=== PATIENT | male | born 1975 | race Caucasian/White ===

== ENCOUNTER → 2017-12-17 14:17 | Outpatient (CLI) | payer OTHER, SELFPAY ==
[2017-12-17 17:13] LABS: Internal QC Validated? YES +Cl - CLEAR BKGD; Monotest Negative (Negative)
== END ==
PROVIDERS: Family Provider Family Medicine Geriatric Medicine; PCP Family Medicine Geriatric Medicine; Visit Provider Family Medicine Geriatric Medicine
DX: R07.0 Pain in throat (principal); R53.83 Other fatigue
CPT/HCPCS: 36415; 86308; 87633

== ENCOUNTER → 2018-05-20 10:37 | Outpatient (CLI) | payer OTHER, SELFPAY ==
[2018-05-20 13:36] LABS: HIV - WCH Non-Reactive (Nonreactive)
[2018-05-20 15:03] LABS: Chlamydia Trachomatis by PCR Negative (Negative); Neisserai gonorrhoeae by PCR Negative (Negative); Probe Check PASS; Sample Adequacy Control PASS; Specimen Processing Control PASS
== END ==
PROVIDERS: Family Provider Family Medicine Geriatric Medicine; PCP Family Medicine Geriatric Medicine; Visit Provider Family Medicine Geriatric Medicine
DX: A64 Unspecified sexually transmitted disease (principal); N50.82 Scrotal pain
CPT/HCPCS: 36415; 86703; 87491; 87591

== ENCOUNTER → 2018-05-22 07:56 | Outpatient (CLI) | payer OTHER, SELFPAY ==
--- NOTE | 2018-05-22 08:04 | US_ITS ---
STUDY: SCROTUM ULTRASOUND REASON FOR EXAM: Male, 42 years old. Left testicular pain for one week. TECHNIQUE: Ultrasound evaluation of the scrotum was performed with color Doppler and static lockett-scale imaging. COMPARISON: None. FINDINGS: RIGHT TESTICLE INTRATESTICULAR: There is a normal size of the right testicle. The right testicle measures 4.9 x 3.3 x 2.5 cm. There is a homogenous echotexture. There is normal arterial and normal venous vascularity. There is no demonstrated right testicular mass or cyst. EXTRATESTICULAR: The epididymis is normal in size. The epididymis head measures 1.7 x 1.6 x 1.1 cm. There is normal vascularity of the epididymis. There is no demonstrated epididymal cystic structure. There is a small hydrocele. There is no demonstrated varicocele. There is no demonstrated extratesticular mass or cyst. LEFT TESTICLE INTRATESTICULAR: There is a normal size of the left testicle. The left testicle measures 4.7 x 3.5 x 2.7 cm. There is a homogenous echotexture. There is normal arterial and normal venous vascularity. There is no demonstrated left testicular mass or cyst. EXTRATESTICULAR: The epididymis is normal in size. The epididymis head measures 1.6 x 1.7 x 1.2 cm. There is normal vascularity of the epididymis. There is no demonstrated epididymal cystic structure. There is a moderate size hydrocele. There is no demonstrated varicocele. There is no demonstrated extratesticular mass or cyst. US/Testicular with Arterial Flow IMPRESSION: Normal bilateral testicles. Normal epididymides. Small right hydrocele. Moderate left hydrocele. Electronically Signed: Ciarra Guerra MD at 23:43 EDT , Service support ,
== END ==
PROVIDERS: Family Provider Family Medicine Geriatric Medicine; PCP Family Medicine Geriatric Medicine; Visit Provider Family Medicine Geriatric Medicine
DX: N43.3 Hydrocele, unspecified (principal)
CPT/HCPCS: 76870; 93976

== ENCOUNTER → 2019-08-07 16:01 | Outpatient (CLI) | payer OTHER, SELFPAY ==
[2019-08-07 17:37] LABS: Absolute Lymphocyte Count 1.73 X10^3/uL (0.83-4.51); Basophil# 0.07 X10^3/uL; Basophil% 1.1 % (0-1); Eosinophil# 0.09 X10^3/uL; Eosinophils% 1.4 % (0-5); Hematocrit 48.2 % (40-54); Hemoglobin 16.3 g/dL (13.0-16.5); Lymphocyte # 1.73 X10^3/ul (4.0); Lymphocyte % 26.7 % (19-41); Mean Corp Hgb Conc 33.8 g/dL (32-36); Mean Corpuscular Hgb 29.3 pg (27.0-32.0); Mean Corpuscular Volume 86.5 fL (80-94); Mean Platelet Vol. 9.7 fl (6.2-12.0); Monocyte% 9.2 % (0-10); NRBC Flagged by Analyzer 0 % (0-5); Neutrophil # 3.98 X10^3/uL (2.7-7.7); Neutrophil % 61.3 % (47-70); Platelet Count 272 K/mm3 (150-450); RBC Distribution Width CV 12.4 % (11.6-14.6); RBC Distribution Width SD 38.6 fl (35.1-43.9); Red Blood Count 5.57 M/mm3 (4.6-6.2); White Blood Count 6.5 K/mm3 (4.4-11.0)
[2019-08-07 17:58] LABS: ALB/GLOB Ratio 1.1 RATIO (0.9-2.4); AST(SGOT) 14 U/L (15-37); Alanine Aminotransfer ALT/SGPT 40 U/L (16-61); Albumin, Serum 4.1 g/dL (3.2-5.0); Alkaline Phosphatase 97 U/L (45-117); Anion Gap 6 (5-15); BUN 13 mg/dL (7-18); BUN/Creat Ratio 11.7 RATIO (10-20); Calcium,Total 8.8 mg/dL (8.5-10.1); Chloride 101 mmol/L (98-107); Creatinine, Serum 1.11 mg/dL (0.70-1.30); EST Glomerular Filtration Rate 76 mL/min (>60); Est Glom Filt Rate - Afr Amer 92 mL/min (>60); Globulin 3.8 g/dL (2.2-4.2); Glucose 122 mg/dL (74-106); Potassium 3.7 mmol/L (3.5-5.1); Protein, Total 7.9 g/dL (6.4-8.2); Sodium Level 138 mmol/L (136-145); Thyroid Stim Hormone (TSH) 2.34 uIU/mL (0.358-3.74)
== END ==
PROVIDERS: Family Provider Family Medicine Geriatric Medicine; PCP Family Medicine Geriatric Medicine; Visit Provider Family Medicine Geriatric Medicine
DX: I10 Essential (primary) hypertension (principal)
CPT/HCPCS: 36415; 80053; 84443; 85025

== ENCOUNTER → 2020-09-29 09:24 | Outpatient (CLI) | payer OTHER, SELFPAY ==
[2020-09-29 12:05] LABS: Absolute Lymphocyte Count 1.26 X10^3/uL (0.83-4.51); Absolute Neutrophil Count 2.8 X10^3/uL (2.0-7.7); Basophil# 0.05 X10^3/uL; Basophil% 1.1 % (0-1); Eosinophil# 0.14 X10^3/uL; Hematocrit 46.3 % (40-54); Hemoglobin 15.1 g/dL (13.0-16.5); Lymphocyte # 1.26 X10^3/ul (4.0); Lymphocyte % 27.3 % (19-41); Mean Corp Hgb Conc 32.6 g/dL (32-36); Mean Corpuscular Hgb 28.9 pg (27.0-32.0); Mean Corpuscular Volume 88.7 fL (80-94); Mean Platelet Vol. 9.7 fl (6.2-12.0); Monocyte# 0.41 X10^3/uL; Monocyte% 8.9 % (0-10); NRBC Flagged by Analyzer 0 % (0-5); Neutrophil # 2.75 X10^3/uL (2.7-7.7); Neutrophil % 59.5 % (47-70); Platelet Count 237 K/mm3 (150-450); RBC Distribution Width CV 12.4 % (11.6-14.6); RBC Distribution Width SD 40.3 fl (35.1-43.9); Red Blood Count 5.22 M/mm3 (4.6-6.2); White Blood Count 4.6 K/mm3 (4.4-11.0)
[2020-09-29 12:29] LABS: ALB/GLOB Ratio 1.2 RATIO (0.9-2.4); AST(SGOT) 13 U/L (15-37); Alanine Aminotransfer ALT/SGPT 30 U/L (16-61); Albumin, Serum 3.9 g/dL (3.2-5.0); Alkaline Phosphatase 90 U/L (45-117); Anion Gap 4 (5-15); BUN 16 mg/dL (7-18); BUN/Creat Ratio 14.4 RATIO (10-20); Calcium,Total 8.6 mg/dL (8.5-10.1); Chloride 108 mmol/L (98-107); Creatinine, Serum 1.11 mg/dL (0.70-1.30); EST Glomerular Filtration Rate 75 mL/min (>60); Est Glom Filt Rate - Afr Amer 91 mL/min (>60); Globulin 3.3 g/dL (2.2-4.2); Glucose 86 mg/dL (74-106); Potassium 4.2 mmol/L (3.5-5.1); Protein, Total 7.2 g/dL (6.4-8.2); Sodium Level 140 mmol/L (136-145); Thyroid Stim Hormone (TSH) 1.68 uIU/mL (0.358-3.74)
== END ==
PROVIDERS: PCP Family Medicine Geriatric Medicine; Visit Provider Family Medicine Geriatric Medicine
DX: I10 Essential (primary) hypertension (principal)
CPT/HCPCS: 36415; 80053; 84443; 85025

== ENCOUNTER → 2021-01-07 11:38 | Outpatient (CLI) | payer OTHER, SELFPAY ==
[2021-01-07 13:48] LABS: Thyroid Stim Hormone (TSH) 1.46 uIU/mL (0.358-3.74)
== END ==
PROVIDERS: PCP Family Medicine Geriatric Medicine; Visit Provider Family Medicine Geriatric Medicine
DX: E29.1 Testicular hypofunction (principal)
CPT/HCPCS: 36415; 84403; 84443

== ENCOUNTER → 2022-04-05 | Outpatient (CLI) | payer OTHER, SELFPAY ==
[2022-04-05 17:18] LABS: Absolute Lymphocyte Count 1.58 X10^3/uL (0.83-4.51); Basophil# 0.06 X10^3/uL; Eosinophil# 0.11 X10^3/uL; Eosinophils% 1.8 % (0-5); Hematocrit 47.7 % (40-54); Hemoglobin 15.6 g/dL (13.0-16.5); Lymphocyte # 1.58 X10^3/ul (0.83-4.51); Lymphocyte % 25.2 % (19-41); Mean Corp Hgb Conc 32.7 g/dL (32-36); Mean Corpuscular Hgb 28.5 pg (27.0-32.0); Mean Platelet Vol. 9.7 fl (6.2-12.0); Monocyte# 0.52 X10^3/uL; Monocyte% 8.3 % (0-10); NRBC Flagged by Analyzer 0 % (0-5); Neutrophil # 3.98 X10^3/uL (2.7-7.7); Neutrophil % 63.5 % (47-70); Platelet Count 239 K/mm3 (150-450); RBC Distribution Width CV 12.2 % (11.6-14.6); RBC Distribution Width SD 39.1 fl (35.1-43.9); Red Blood Count 5.48 M/mm3 (4.6-6.2); White Blood Count 6.3 K/mm3 (4.4-11.0)
[2022-04-05 17:37] LABS: ALB/GLOB Ratio 1.1 RATIO (0.9-2.4); AST(SGOT) 15 U/L (15-37); Alanine Aminotransfer ALT/SGPT 31 U/L (16-61); Albumin, Serum 3.8 g/dL (3.2-5.0); Alkaline Phosphatase 84 U/L (45-117); Anion Gap 4 (5-15); BUN 16 mg/dL (7-18); BUN/Creat Ratio 13.8 RATIO (10-20); Calcium,Total 8.9 mg/dL (8.5-10.1); Chloride 108 mmol/L (98-107); Creatinine, Serum 1.16 mg/dL (0.70-1.30); EST Glomerular Filtration Rate 71 mL/min (>60); Est Glom Filt Rate - Afr Amer 86 mL/min (>60); Globulin 3.4 g/dL (2.2-4.2); Glucose 109 mg/dL (74-106); Potassium 4.1 mmol/L (3.5-5.1); Protein, Total 7.2 g/dL (6.4-8.2); Sodium Level 140 mmol/L (136-145); Thyroid Stim Hormone (TSH) 1.59 uIU/mL (0.358-3.74)
== END | disposition home or self-care (01) ==
LOC: POLAB3 14:29
PROVIDERS: PCP Family Medicine Geriatric Medicine; Visit Provider Family Medicine Geriatric Medicine
DX: F52.8 Other sexual dysfunction not due to a substance or known physiological condition (principal); I10 Essential (primary) hypertension
CPT/HCPCS: 36415; 80053; 84403; 84443; 85025

== ENCOUNTER 2022-12-06 04:15 | Observation (INO) | payer OTHER, SELFPAY ==
[2022-12-06] VITALS (7 sets, daily range): BP systolic 116–158; BP diastolic 57–75; PULSE 51–75; RESP 16–22; TEMP 36.6–36.8; O2SAT 94–99; BMI 32.6; BMI 32.5
[2022-12-06] MEDS: Ondansetron 4 MG/2 ML Vial IV (05:10)
[2022-12-06] MEDS: HYDROmorphone 1 MG/ML Syringe IV ×3 (05:11→09:00)
[2022-12-06] MEDS: dexAMETHasone 10 MG/ML Vial IV (05:11)
[2022-12-06] MEDS: Orphenadrine 60 MG/2 ML Ampul IV (05:11)
[2022-12-06] MEDS: diazePAM 5 MG Tablet 10 MG PO (06:28)
--- NOTE | 2022-12-06 08:41 | EDS_ITS ---
HPI History of Present Illness Chief Complaint: Back Narrative Narrative: Patient is a 47-year-old male with past medical history of hypertension. He states that on Sunday he was lifting a heavy metal kettle and after doing so felt pain mainly in his right side low back. He states he did not think much of this but as the days passed he was having increasing pain to the point where he was unable to ambulate. He states that there has been no loss of bowel or bladder control or IV drug use. He states he went to an outside hospital just yesterday where he had a CT scan secondary to his pain which showed just degenerative changes consistent with age but otherwise no acute finding. He has been taking oxycodone and Zanaflex and prednisone but despite this has had persistent pain but no repeat trauma. Secondary to the persistent pain and the inability ambulate he presents for reevaluation [facility] Medical History Hypertension Home Medications Losartan/Hydrochlorothiazide [Hyzaar 100-12.5 Tablet] 1 tab PO DAILY 03/07/16 [History Last Taken Unknown] Allergy/AdvReac Type Severity Reaction Status Date / Time No Known Allergies Allergy Verified 12/06/22 04:19 Surgical History (Updated 12/06/22 @ 04:21 by Joelle Elizondo) History of femoral hernia repair Social History Smoking Status: Never smoker ROS [facility] ED Constitutional Constitutional ED: Denies chills or fever(s) ENT ENT ED: Denies sore throat Cardiovascular Cardiovascular: Denies chest pain Respiratory/Chest Respiratory/Chest: Denies cough or dyspnea Gastrointestinal Gastrointestinal: Denies abdominal pain, diarrhea, nausea or vomiting Genitourinary Genitourinary ED: Denies dysuria or hematuria Musculoskeletal Musculoskeletal: Reports back pain Integumentary Denies rash Neurologic Neurologic: Denies headache(s) or paresthesias Hematologic/Lymphatic Hematologic/Lymphatic: Denies easy bleeding or easy bruising EXAM Physical Exam Const Vital Signs: 12/06/22 04:16 12/06/22 06:29 12/06/22 07:50 Temperature 98.3 F 98.1 F Temperature Source Temporal Oral Pulse Rate 75 51 L 64 Respiratory Rate 22 H 16 18 Blood Pressure 158/75 H 133/57 H 128/68 H Blood Pressure Mean 102 82 88 Pulse Ox 99 97 96 Oxygen Delivery Method Room Air Room Air Room Air Positive well nourished, well developed and obese General Appearance ED: well developed Nutritional Appearance: obese Eyes PERRL and EOMs intact bilaterally Neck supple Resp normal respiratory effort and clear to auscultation bilaterally Cardio regular rate and regular rhythm Rate: other Other Details: Radial pulses are plus 2 out of 4 bilaterally are equal and symmetric Carotid pulses equal and symmetric GI normal to inspection, nondistended, normoactive bowel sounds, non-tender, non- distended and no masses GI Narrative: No voluntary guarding or rigidity no pulsatile mass Auscultation: normoactive bowel sounds Palpation: soft Back/Spine Back/Spine Narrative: No bony deformity or step-off of the thoracic or lumbar spine no midline pain with palpation. There is right paralumbar tenderness and spasm noted that extends down into the piriformis muscle belly region. No saddle anesthesia. Negative straight leg raise. No clonus or Babinski. Patellar reflexes are plus 3 out of 4 bilaterally Extremity normal to inspection Extremity Narrative: No abrasions or ecchymosis noted No signs of trauma or infection Neuro oriented x3 and CN's II-XII intact bilaterally Sensorium / Orientation: alert Psych mental status grossly normal Skin no rashes or lesions noted MDM MDM MDM Narrative Medical decision making narrative: Patient presented to the ER hypertensive but has known history of this and is in pain so this is to be expected. He does not have physical exam findings for cauda equina or epidural abscess. There is no midline pain with palpation and with his report of recent CT scan I felt no need for repeat imaging. Patient was given a total of 2 mg of IV Dilaudid 60 mg of IV Norflex 10 mg of IV Decadron and 10 mg of oral Valium. He did have improvement of pain but no resolution and he could stand with a walker but he could not walk. At this time as he is having intractable pain I do not feel it is safe for him to go home. At this time he does not appear to have CVA pain indicating kidney stone there are no obvious signs of infection and I have low concern for cauda equina or epidural abscess based on his history and risk factors. Therefore do not feel there is need for further work-up but based on his intractable pain needs to be admitted for further care. The case was discussed with medicine on-call and they are agreeable to it and patient will be admitted for continued pain management at this time Discharge Plan Triage Chief Complaint: Back ED Provider: Jacek Raygoza Dx/Rx/DC Orders Clinical Impression: Intractable low back pain, Unable to ambulate, Hypertension Prescriptions: No Action Losartan/Hydrochlorothiazide [Hyzaar 100-12.5 Tablet] 1 TAB tablet 1 tab PO DAILY Primary Care Provider: Rogelio Colvin Chi Referrals: Rogelio Colvin Chi, MD [Primary Care Provider] - Disposition Disposition: Acute Care Hospital [facility]
--- NOTE | 2022-12-06 08:53 | HP.PCM.HOS_ITS ---
HPI - General General Date of Admission: 12/06/22 Date of Service: 12/06/22 Chief Complaint: Severe right-sided lumbar paraspinal and buttock pain since 12/01. HPI Narrative DELTA CHEEK, is a 47 M came to ED after he has severe right-sided lower back pain after he lifted a heavy table about 400 pounds on 12/01. He stayed at home on Sunday and then he went to [place] ED on 12/04. There is a need CT scan lumbar spine and thought mainly musculoskeletal pain without nerve involvement/cardiac related and discharged on pain medication and muscle relaxant. Patient continued to have severe pain not able to stand up or walk therefore came to ED today. No fever or chills. Patient denies fall or heavy object falling on his back. Patient has bladder filling sensation and able to empty bladder. No burning micturition or indurative symptoms although he has following standing up or act of micturition. Patient also passing flatus last bowel movement was on 12/02. Social history: Patient chew tobacco but does not smoke cigarettes or pipe or marijuana. No vaping. Denies substance use or chronic alcoholism Family history: Patient father had hypertension and a stroke and at the age of 54. [facility] Medical History Hypertension Home Medications Losartan/Hydrochlorothiazide [Hyzaar 100-12.5 Tablet] 1 tab PO DAILY 03/07/16 [History Last Taken Unknown] Allergy/AdvReac Type Severity Reaction Status Date / Time No Known Allergies Allergy Verified 12/06/22 04:19 Surgical History History of femoral hernia repair Social History Smoking Status: Never smoker ROS ROS Narrative Constitutional: Reports fatigue and weakness HEENT: Reports systems reviewed and no addt'l complaints, except as documented Respiratory/Chest: Denies chest pain, shortness of breath at rest or with exertion Gastrointestinal: Denies coffee ground emesis, hematemesis or vomiting Genitourinary: Denies burning urination or new urinary tract symptoms Musculoskeletal: As described in HPI. Painful movement of right hip and lower back. Neurologic: Denies seizure-like activity. No focal acute strokelike symptoms skin: No ulcer. No rash Endocrinology: Obesity. Reports systems reviewed and no addt'l complaints, except as documented Hematologic/Lymphatic: Reports systems reviewed and no addt'l complaints, except as documented Rest 14 ROS are negative except as mentioned in HPI Vital Signs Vital Signs Vital Signs: 12/06/22 04:16 12/06/22 06:29 12/06/22 07:50 Temperature 98.3 F 98.1 F Temperature Source Temporal Oral Pulse Rate 75 51 L 64 Respiratory Rate 22 H 16 18 Blood Pressure 158/75 H 133/57 H 128/68 H Blood Pressure Mean 102 82 88 Pulse Ox 99 97 96 Oxygen Delivery Method Room Air Room Air Room Air Weight Weight: 254 lb 3.088 oz Body Mass Index (BMI) 32.6 Physical Exam Narrative Physical exam General: Alert, Oriented x3, Cooperative HEENT: Atraumatic, PERRLA, EOMI, Normocephalic Oral: Oral mucosa moist. No Gingival or Mucosal Lesions/ Ulcerations Neck: Supple, No JVD, Negative Carotid Bruits Lungs: Air entry diminished in bilateral lung bases. No crepitation/rhonchi Cardiovascular: Regular rate, Regular Rhythm, Normal S1, Normal S2, No murmurs Abdomen: Bowel Sounds Present, Soft, Non Tender, Non-Distended : No renal angle tenderness. No suprapubic tenderness. Extremities: No edema, Capillary Refill Less than 3 Seconds Skin: No rashes, No breakdown Musculoskeletal: Tenderness and spasm present over right lumbar paraspinal muscle, erector spinae. ROM severely limited at right hip, lumbar spine due to pain and spasm. LLE normal ROM. Neurological: Cranial nerves II-XII grossly intact, DTR 2+/4. Intact perineal sensation. Anal sphincter tone intact and good. Gross sensory touch and pressure equal symmetrical in lower extremities and back. Psych/Mental Status: Flat affect. Results Lab / Micro Data Result Diagrams: 12/06/22 09:00 12/06/22 09:00 Assessment & Plan Assessment/Plan (1) Intractable low back pain: PLAN: Plan This is 47-year-old gentleman is being admitted for acute back pain with spasm after lifting heavy table. 1. Debility due to acute musculoskeletal pain and spasm of right lumbar paraspinal muscle, not able to stand up or ambulate: Patient is being admitted on [facility] reservation. On Tylenol, ibuprofen for pain control. On oxycodone and Dilaudid as opioid for moderate to severe pain. Muscle relaxant ordered. Dexamethasone 4 mg twice daily. Senna as an MiraLAX and stool softener. On Protonix. PT and OT ordered. 2. Hypertension: Blood pressure is in normal range. Home medication HCTZ and losartan continued 3. Obesity grade 1: BMI 32.6 kg/m?. Moderate risk for DVT: Enoxaparin 40 mill subcu daily. Full code verified. Charges/Coding Visit Charges Inpatient E&M: 12569 Init Hosp L3
[2022-12-06 09:11] LABS: Absolute Lymphocyte Count 0.72 X10^3/uL (0.83-4.51); Absolute Neutrophil Count 8.7 X10^3/uL (2.0-7.7); Basophil# 0.01 X10^3/uL; Basophil% 0.1 % (0-1); Hematocrit 43.3 % (40-54); Hemoglobin 14.6 g/dL (13.0-16.5); Lymphocyte # 0.72 X10^3/ul (0.83-4.51); Lymphocyte % 7.4 % (19-41); Mean Corp Hgb Conc 33.7 g/dL (32-36); Mean Corpuscular Hgb 29.1 pg (27.0-32.0); Mean Corpuscular Volume 86.3 fL (80-94); Mean Platelet Vol. 9.4 fl (6.2-12.0); Monocyte# 0.18 X10^3/uL; Monocyte% 1.9 % (0-10); NRBC Flagged by Analyzer 0 % (0-5); Neutrophil # 8.73 X10^3/uL (2.7-7.7); Neutrophil % 90.1 % (47-70); Platelet Count 230 K/mm3 (150-450); RBC Distribution Width CV 12.4 % (11.6-14.6); RBC Distribution Width SD 38.5 fl (35.1-43.9); Red Blood Count 5.02 M/mm3 (4.6-6.2); White Blood Count 9.7 K/mm3 (4.4-11.0)
[2022-12-06 09:25] LABS: Anion Gap 6 (5-15); BUN 18 mg/dL (7-18); BUN/Creat Ratio 15.5 RATIO (10-20); Calcium,Total 8.8 mg/dL (8.5-10.1); Chloride 109 mmol/L (98-107); Creatinine, Serum 1.16 mg/dL (0.70-1.30); EST Glomerular Filtration Rate 71 mL/min (>60); Est Glom Filt Rate - Afr Amer 86 mL/min (>60); Estimated Creatinine Clearance 89.56 ml/min; Glucose 127 mg/dL (74-106); Sodium Level 140 mmol/L (136-145)
[2022-12-06 12:23] LABS: Bacteria 0 SEEN /hpf (None Seen); Mucous, Urine 0 SEEN /hpf (<or=2+); Red Blood Cells-Urine 0 SEEN /hpf (0-5); Squamous Epithelial Cells - UA 0 SEEN /hpf (0-5); White Blood Cells 0 SEEN /hpf (0-5)
[2022-12-06 12:25] LABS: Color, Urine Yellow (Yellow); Glucose, Dipstick Normal (Normal); Ketone-Dipstick Negative (Negative); Occult Blood-Urine Negative /ul (Negative); Urine Bilirubin Dipstick Negative (Negative); Urine Clarity Clear (Clear); Urine Urobilinogen Normal (Normal)
[2022-12-06 12:28] LABS: Leukocyte Esterase-Dipstick Negative /ul (Negative); Nitrite-Dipstick Negative (Negative); Protein-Dipstick Negative (Negative); Specific Gravity, Urine 1.015 (1.002-1.030)
[2022-12-06] MEDS: Enoxaparin 40 MG/0.4 ML Syringe SC (13:31)
[2022-12-06] MEDS: Pantoprazole Sodium 40 MG Tablet PO (13:31)
[2022-12-06] MEDS: Polyethylene Glycol 3350 17 GM PACKET PO (13:31)
[2022-12-06] MEDS: Ibuprofen 600 MG Tablet PO ×3 (13:31→22:58)
[2022-12-06] MEDS: 0.9% Normal Saline 1,000 ML 100 ML IV (13:46)
[2022-12-06] MEDS: Losartan Potassium 100 MG Tablet PO (14:50)
[2022-12-06] MEDS: tiZANidine HCl 2 MG Tablet 4 MG PO ×2 (14:50→23:59)
[2022-12-06] MEDS: dexAMETHasone 4 MG Tablet PO (17:36)
[2022-12-06] MEDS: oxyCODONE 5 MG Tablet PO (21:21)
[2022-12-06] MEDS: Acetaminophen 325 MG Tablet 650 MG PO (21:21)
[2022-12-06] MEDS: 0.9% Saline Lock 10 ML Syringe IV (22:58)
[2022-12-06] MEDS: Morphine 4 MG/ML Syringe IV (22:58)
[2022-12-07] MEDS: Acetaminophen 325 MG Tablet 650 MG PO (03:59)
[2022-12-07] MEDS: oxyCODONE 5 MG Tablet PO (03:59)
[2022-12-07 04:11] VITALS: BP 114/67; PULSE 84; RESP 18; TEMP 36.8; O2SAT 98
[2022-12-07] MEDS: Morphine 4 MG/ML Syringe IV (06:43)
[2022-12-07] MEDS: Ibuprofen 600 MG Tablet PO (06:43)
--- NOTE | 2022-12-07 07:36 | DCINST_ITS ---
Discharge Instructions Diet Discharge Diet: 2000 mg Sodium Diet Activity Discharge Activity: Return to Normal Activity Weight Bearing Status: Weight bearing as tolerated Additional Activity Instructions:: No exertional pulling, pushing, lifting or heavy physical work for 3 to 4 weeks Dressing / Incision Call your doctor if you observe: Fever of 101 or Higher, Coldness, Increased Pain, Numbness or Tingling, Change in Color, Inability to urinate, Inability to have a bowel movement, Shortness of breath, Dizziness, Fainting spells, Swelling in the ankles, Chest pain, Prolonged hiccupping, Increased palpitations (irregular heartbeat) and Calf discomfort Follow Up Care When: IN 2 WEEKS Test Results: Test results from this visit will be discussed in further detail at your follow- up appointment, if applicable. Discharge Plan Admission Admit Date/Time: 12/06/22 08:37 Primary Reason for Your Visit: Acute musculoskeletal spasm of right lumbar paraspinal region Attending Provider: Javed Jeffery Primary Care Provider: Rogelio Colvin Chi Discharge Orders/Prescriptions Prescriptions: New tizanidine 2 mg Tablet 4 mg PO Q8H PRN PRN (Reason: MUSCLE SPASM) 10 Days Qty: 30 0RF pantoprazole 40 mg Tablet,Delayed Release (Dr/Ec) 40 mg PO DAILY 30 Days Qty: 30 0RF ibuprofen 600 mg Tablet 600 mg PO Q8H PRN (Reason: muscle pain) Qty: 0 0RF Rx Instructions: [id number], every 8 hourly for 3 days and then as needed as needed for muscle pain Continued Losartan/Hydrochlorothiazide [Hyzaar 100-12.5 Tablet] 1 TAB tablet 1 tab PO DAILY Referrals / Follow Up: Rogelio Colvin Chi, MD [Primary Care Provider] - Within 1 Week (For acute right paraspinal lumbar pain ) Tariq Flores DO [Med Staff - Active Staff] - Within 1 Month (as needed If back pain does not get better or becomes persistent) Disposition Disposition (needs filled in before D/C Order can be placed): Home, Self Care
--- NOTE | 2022-12-07 07:43 | DS.PCM_ITS ---
Providers Date of Admission: 12/06/22 Date of Discharge: 12/07/22 Primary Care Physician: Dr. Rogelio Colvin MD Reason For Visit: ACUTE BACK PAIN Diagnosis Discharge Diagnosis (1) Intractable low back pain: Status: Acute Code(s): M54.59 - Other low back pain Plan This is 47-year-old gentleman is being admitted for acute back pain with spasm after lifting heavy table. 1. Debility due to acute musculoskeletal pain and spasm of right lumbar paraspinal muscle, not able to stand up or ambulate: Patient is being admitted on Med[place]urg reservation. On Tylenol, ibuprofen for pain control. On oxycodone and Dilaudid as opioid for moderate to severe pain. Muscle relaxant ordered. Dexamethasone 4 mg twice daily. Senna as an MiraLAX and stool softener. On Protonix. PT and OT ordered. 12/07: CT of the lumbar spine reviewed with the patient. It showed moderate to severe degenerative changes of L4-L5 disc. No evidence of acute bony deformity. Marked disc narrowing at L4-L5 with mild narrowing of spinal canaPatient has prescription of oxycodone and tramadol and muscle relaxant given from [facility] ED. He was given prescription for tizanidine. Patient advised to take [id number] ibuprofen 600 mg every 8 hourly for 3 days and then as needed for back pain. Advised to follow with PCP Dr. Colvin in 1 week. Patient was also given option of follow-up with Dr. Flores if back pain becomes persistent or gets worse. 2. Hypertension: Blood pressure is in normal range. Home medication HCTZ and losartan continued 3. Obesity grade 1: BMI 32.6 kg/m?. Moderate risk for DVT: Enoxaparin 40 mg subcu daily. Full code verified. Discharge medication reconciliation done. Discharge follow-up instructions completed. Discharge process discussed with the patient and all questions were answered to patient's satisfaction. Total time spent, exact 35 minutes on discharge meds reconciliation, examination, coordination of care with nurses and ancillary staff, review of imaging and blood test and discussion with the patient on follow-up instructions. Medications at Discharge Home Medications Losartan/Hydrochlorothiazide [Hyzaar 100-12.5 Tablet] 1 tab PO DAILY 03/07/16 ibuprofen 600 mg tablet 600 mg PO Q8H PRN muscle pain #0 tabs 12/07/22 pantoprazole 40 mg tablet,delayed release 40 mg PO DAILY 30 days #30 tabs 12/07/22 tizanidine 2 mg tablet 4 mg PO Q8H PRN PRN MUSCLE SPASM 10 days #30 tabs 12/07/22 Physical Exam Narrative Seen and examined in the morning. Back pain is better and patient cannot stand up and ambulate. He wants to go home. CT scan of lumbar spine discussed with the patient. Physical exam General: Alert, Oriented x3, Cooperative HEENT: Atraumatic, PERRLA, EOMI, Normocephalic Oral: Oral mucosa moist. No Gingival or Mucosal Lesions/ Ulcerations Neck: Supple, No JVD, Negative Carotid Bruits Lungs: Air entry diminished in bilateral lung bases. No crepitation/rhonchi Cardiovascular: Regular rate, Regular Rhythm, Normal S1, Normal S2, No murmurs Abdomen: Bowel Sounds Present, Soft, Non Tender, Non-Distended : No renal angle tenderness. No suprapubic tenderness. Extremities: No edema, Capillary Refill Less than 3 Seconds Skin: No rashes, No breakdown Musculoskeletal: Mild Tenderness present over right lumbar paraspinal muscle. can walk. LLE normal ROM. Neurological: Cranial nerves II-XII grossly intact, DTR 2+/4. Intact perineal sensation. Anal sphincter tone intact and good. Gross sensory touch and press ure equal symmetrical in lower extremities and back. Psych/Mental Status: Flat affect. Weight / BMI Weight Weight: 254 lb 3.088 oz Body Mass Index (BMI) 32.5 ABG / Lab / Microbiology Data Result Diagrams: 12/06/22 09:00 12/06/22 09:00 Laboratory: Laboratory Results - last 24 hr 12/06/22 09:00: WBC 9.7, RBC 5.02, Hgb 14.6, Hct 43.3, MCV 86.3, MCH 29.1, MCHC 33.7, RDW Std Deviation 38.5, RDW Coeff of [place] 12.4, Plt Count 230, MPV 9.4, Immature Gran % (Auto) 0.500, Neut % (Auto) 90.1 H, Lymph % (Auto) 7.4 L, [place] % (Auto) 1.9, Eos % (Auto) 0.0, Baso % (Auto) 0.1, Absolute Neuts (auto) 8.7 H, Absolute Lymphs (auto) 0.72 L, Nucleated RBC % 0 12/06/22 09:00: Sodium 140, Potassium 4.0, Chloride 109 H, Carbon Dioxide 25.0, Anion Gap 6, BUN 18, Creatinine 1.16, Estim Creat Clear Calc 89.56, Est GFR (MDRD) Af Amer 86, Est GFR (MDRD) Non-Af 71, BUN/Creatinine Ratio 15.5, Glucose 127 H, Calcium 8.8 12/06/22 12:20: Urine Color Yellow, Urine Clarity Clear, Urine pH 8.0, Ur Specific [place] 1.015, Urine Protein Negative, Urine Glucose (UA) Normal, Urine Ketones Negative, Urine Occult Blood Negative, Urine Nitrite Negative, Urine Bilirubin Negative, Urine Urobilinogen Normal, Ur Leukocyte Esterase Negative, Urine RBC 0 SEEN, Urine WBC 0 SEEN, Ur Squamous Epith Cells 0 SEEN, Urine Bacteria 0 SEEN, Urine Mucus 0 SEEN D/C Instructions Discharge Diet: 2000 mg Sodium Diet Weight Bearing Status: Weight bearing as tolerated Additional Activity Instructions: No exertional pulling, pushing, lifting or heavy physical work for 3 to 4 weeks Call your doctor if you observe: Fever of 101 or Higher, Coldness, Increased Pain, Numbness or Tingling, Change in Color, Inability to urinate, Inability to have a bowel movement, Shortness of breath, Dizziness, Fainting spells, Swelling in the ankles, Chest pain, Prolonged hiccupping, Increased palpitations (irregular heartbeat) and Calf discomfort When: IN 2 WEEKS Meaningful Use Info Meaningful Use Diagnoses (Choose all that apply): None applicable Discharge Plan Admission Admit Date/Time: 12/06/22 08:37 Primary Reason for Your Visit: Acute musculoskeletal spasm of right lumbar paraspinal region Attending Provider: Javed Jeffery Primary Care Provider: Rogelio Colvin Chi Discharge Orders/Prescriptions Prescriptions: New tizanidine 2 mg Tablet 4 mg PO Q8H PRN PRN (Reason: MUSCLE SPASM) 10 Days Qty: 30 0RF pantoprazole 40 mg Tablet,Delayed Release (Dr/Ec) 40 mg PO DAILY 30 Days Qty: 30 0RF ibuprofen 600 mg Tablet 600 mg PO Q8H PRN (Reason: muscle pain) Qty: 0 0RF Rx Instructions: [id number], every 8 hourly for 3 days and then as needed as needed for muscle pain Continued Losartan/Hydrochlorothiazide [Hyzaar 100-12.5 Tablet] 1 TAB tablet 1 tab PO DAILY Referrals / Follow Up: Tariq Flores DO [Med Staff - Active Staff] - Within 1 Month (as needed If back pain does not get better or becomes persistent) Rogelio Colvin Chi, MD [Primary Care Provider] - Within 1 Week (For acute right paraspinal lumbar pain ) Disposition Disposition (needs filled in before D/C Order can be placed): Home, Self Care Charges/Coding Visit Charges Inpatient E&M: 99726 Disch Hosp >30min
[2022-12-07 08:20] VITALS: BP 133/72; PULSE 61; RESP 16; TEMP 36.7; O2SAT 95
--- NOTE | 2022-12-07 09:28 | PHA.DC.MR ---
Pharmacy Service has performed discharge medication reconciliation for this patient. Home Medications Losartan/Hydrochlorothiazide [Hyzaar 100-12.5 Tablet] 1 tab PO DAILY 03/07/16 ibuprofen 600 mg tablet 600 mg PO Q8H PRN muscle pain #0 tabs 12/07/22 pantoprazole 40 mg tablet,delayed release 40 mg PO DAILY 30 days #30 tabs 12/07/22 tizanidine 2 mg tablet 4 mg PO Q8H PRN PRN MUSCLE SPASM 10 days #30 tabs 12/07/22 The patient's discharge medication list was reviewed for discrepancies and discrepancies were resolved.
== END 2022-12-07 09:15 | disposition home or self-care (01) ==
LOC: ED 08:49 → MS3 12:00
PROVIDERS: Admitting Provider Internal Medicine; Emergency Provider Emergency Medicine; PCP Family Medicine Geriatric Medicine; Visit Provider Internal Medicine
DX: M62.830 Muscle spasm of back (principal); M54.50 Low back pain, unspecified; R26.2 Difficulty in walking, not elsewhere classified; I10 Essential (primary) hypertension; E66.9 Obesity, unspecified; Z68.32 Body mass index [BMI] 32.0-32.9, adult; Z79.899 Other long term (current) drug therapy; Z82.49 Family history of ischemic heart disease and other diseases of the circulatory system; F17.220 Nicotine dependence, chewing tobacco, uncomplicated
CPT/HCPCS: 80048; 81001; 85025; 96361; 96372; 96374; 96375; 96376; 99221; 99252; 99284; J7030; A4216; G0378; G0463; J2405

== ENCOUNTER 2022-12-31 17:47 | Emergency (ER) | payer OTHER, SELFPAY ==
[2022-12-31 17:48] VITALS: BP 142/101; PULSE 96; RESP 18; TEMP 36.9; O2SAT 99; BMI 32.1
--- NOTE | 2022-12-31 19:32 | EDS_ITS ---
HPI <JORGE A Delvalle - Last Filed: 12/31/22 21:59> History of Present Illness Chief Complaint: Lower Extremity Injury Narrative Narrative: Patient is here with left leg pain. For background about a month ago he lifted something heavy and developed right low back pain radiating down his right leg. He had a CT scan of the lumbar spine at another facility. He is pain management fpr this and had back injections 2 weeks ago with no improvement and he is taki ng hydrocodone, Lyrica, and ibuprofen. He was using a crutch and putting most of the weight on his left leg due to this injury when he started developing left leg pain about 5 days ago. He states it feels like there is a band around his thigh squeezing it tight and he has pain in the medial and posterior thigh and then along the lateral calf. He feels like the leg looks swollen. Pain is worse with standing or sitting so he has been lying down most of the time. His back pain is only on the right side from a prior injury, there is no pain in the left side of his back or his buttock. He has no weakness, numbness or tingling, no saddle anesthesia or bladder or bowel incontinence. [facility] <JORGE A Delvalle - Last Filed: 12/31/22 21:59> [facility] Medical History Hypertension Home Medications Losartan/Hydrochlorothiazide [Hyzaar 100-12.5 Tablet] 1 tab PO DAILY 03/07/16 [History Last Taken Unknown] ibuprofen 600 mg tablet 600 mg PO Q8H PRN muscle pain #0 tabs 12/07/22 [Rx Last Taken Unknown] pantoprazole 40 mg tablet,delayed release 40 mg PO DAILY 30 days #30 tabs 12/07/22 [Rx Last Taken Unknown] tizanidine 2 mg tablet 4 mg PO Q8H PRN PRN MUSCLE SPASM 10 days #30 tabs 12/07/22 [Rx Last Taken Unknown] apixaban 5 mg (74 tabs) tablets in a dose pack (Eliquis DVT-PE Treat 30D Start) 5 mg PO BID #74 tabs 12/31/22 [Rx Last Taken Unknown] Allergy/AdvReac Type Severity Reaction Status Date / Time No Known Allergies Allergy Verified 12/31/22 17:48 Surgical History History of femoral hernia repair Social History Smoking Status: Never smoker ROS <JORGE A Delvalle - Last Filed: 12/31/22 21:59> ROS ED ROS Narrative Constitutional: Negative for fever, chills, malaise. CVS: Negative for palpitations, chest pain, syncope. Respiratory: Negative for shortness of breath, cough, orthopnea. GI: Negative for abdominal pain, nausea, vomiting, diarrhea, constipation, melena, hematochezia. : Negative for dysuria, hematuria or frequency. Neuro: Negative for motor/sensory dysfunction. Skin: Negative for rash, abscess, or wound. Musc: Positive for left leg pain, swelling. No trauma. Heme: Negative for easy bruising, bleeding, lymphadenopathy. EXAM <JORGE A Delvalle - Last Filed: 12/31/22 21:59> Physical Exam Narrative Exam Narrative: CONST: Patient sitting in no acute distress. EYES: Normal inspection. NECK: Normal inspection. RESP: No respiratory distress, CTAB. CVS: Regular rate and rhythm, no murmur, no gallop. ABD: Soft and nontender, no guarding or rebound, nondistended. Back: Normal inspection, no midline spinal tenderness or step-offs. SKIN: Color normal, no rash, warm, dry, intact. EXTREMITIES: Normal appearance, full range of motion, 5/5 strength and normal sensation, 2+ DP pulses. Mild tenderness over the left calf and medial thigh, no palpable cords, no overlying skin changes. NEURO: Oriented x4. PSYCH: Normal affect. Const Vital Signs: 12/31/22 17:48 12/31/22 22:06 Temperature 98.4 F Temperature Source Temporal Pulse Rate 96 80 Respiratory Rate 18 16 Blood Pressure 142/101 H 143/102 H Blood Pressure Mean 114 115 Pulse Ox 99 98 Oxygen Delivery Method Room Air Room Air <Dr. Sivan Beckford DO - Last Filed: 01/01/23 01:08> Physical Exam Const Vital Signs: 12/31/22 17:48 12/31/22 22:06 Temperature 98.4 F Temperature Source Temporal Pulse Rate 96 80 Respiratory Rate 18 16 Blood Pressure 142/101 H 143/102 H Blood Pressure Mean 114 115 Pulse Ox 99 98 Oxygen Delivery Method Room Air Room Air MDM <JORGE A Delvalle - Last Filed: 12/31/22 21:59> [facility] Narrative Medical decision making narrative: Patient presents with few days of atraumatic left flank pain. He appears well and nontoxic. Bilateral lower extremities appear normal with no swelling or skin changes. He does have tenderness over the left calf no palpable cords. MSPs intact. Formal ultrasound is not available but the attending performed a bedside ultrasound which was concerning for possible DVT. Prior to starting him on a dose of anticoagulation with an ultrasound in the morning, basic labs will be checked. He also reported his urine looked dark so a CK and UA will be obtained. Labs show white count of 11.1, normal hemoglobin at 15.4. BMP is within normal limits. CK is negative at 26 ruling out rhabdomyolysis. UA is negative. With bedside ultrasound showing a DVT he will be given the first dose of Eliquis tonight, prescribed a starter pack, and a prescription for formal ultrasound tomorrow morning. He was discharged in stable condition. Lab Data Attestation: I reviewed the patient's lab results. Labs: Laboratory Results - last 24 hr 12/31/22 12/31/22 12/31/22 21:20 21:20 21:20 WBC 11.1 H RBC 5.08 Hgb 15.4 Hct 45.5 MCV 89.6 MCH 30.3 MCHC 33.8 RDW Std Deviation 41.0 RDW Coeff of Alejo 12.5 Plt Count 182 MPV 9.1 Immature Gran % (Auto) 0.300 Neut % (Auto) 78.1 H Lymph % (Auto) 12.1 L [place] % (Auto) 8.0 Eos % (Auto) 1.2 Baso % (Auto) 0.3 Absolute Neuts (auto) 8.7 H Absolute Lymphs (auto) 1.34 Nucleated RBC % 0 Sodium 140 Potassium 4.1 Chloride 106 Carbon Dioxide 28.0 Anion Gap 6 BUN 26 H Creatinine 0.98 Estim Creat Clear Calc 106.01 Est GFR (MDRD) Af Amer 105 Est GFR (MDRD) Non-Af 87 BUN/Creatinine Ratio 26.6 H Glucose 130 H Calcium 9.1 Total Creatine Kinase 26 L Urine Color Yellow Urine Clarity Sl. Cloudy Urine pH 5.0 Ur Specific [place] 1.025 Urine Protein 15 H Urine Glucose (UA) Normal Urine Ketones Negative Urine Occult Blood 10 H Urine Nitrite Negative Urine Bilirubin Negative Urine Urobilinogen 1 H Ur Leukocyte Esterase Negative Urine RBC 0-5 SEEN Urine WBC 0-5 SEEN Ur Squamous Epith Cells 0-5 SEEN Urine Bacteria RARE Urine Mucus RARE <Dr. Sivan Beckford, DO - Last Filed: 01/01/23 01:08> [facility] Lab Data Labs: Laboratory Results - last 24 hr 12/31/22 12/31/22 12/31/22 21:20 21:20 21:20 WBC 11.1 H RBC 5.08 Hgb 15.4 Hct 45.5 MCV 89.6 MCH 30.3 MCHC 33.8 RDW Std Deviation 41.0 RDW Coeff of [place]jo 12.5 Plt Count 182 MPV 9.1 Immature Gran % (Auto) 0.300 Neut % (Auto) 78.1 H Lymph % (Auto) 12.1 L [place] % (Auto) 8.0 Eos % (Auto) 1.2 Baso % (Auto) 0.3 Absolute Neuts (auto) 8.7 H Absolute Lymphs (auto) 1.34 Nucleated RBC % 0 Sodium 140 Potassium 4.1 Chloride 106 Carbon Dioxide 28.0 Anion Gap 6 BUN 26 H Creatinine 0.98 Estim Creat Clear Calc 106.01 Est GFR (MDRD) Af Amer 105 Est GFR (MDRD) Non-Af 87 BUN/Creatinine Ratio 26.6 H Glucose 130 H Calcium 9.1 Total Creatine Kinase 26 L Urine Color Yellow Urine Clarity Sl. Cloudy Urine pH 5.0 Ur Specific [place] 1.025 Urine Protein 15 H Urine Glucose (UA) Normal Urine Ketones Negative Urine Occult Blood 10 H Urine Nitrite Negative Urine Bilirubin Negative Urine Urobilinogen 1 H Ur Leukocyte Esterase Negative Urine RBC 0-5 SEEN Urine WBC 0-5 SEEN Ur Squamous Epith Cells 0-5 SEEN Urine Bacteria RARE Urine Mucus RARE Treatment and Re-Evaluation Narrative: I have personally performed a face to face assessment of the patient and have reviewed the COLBY Note. I performed a substantive portion of the visit including all aspects of the following. My hand findings include: History is patient is a 47-year-old male with history of hypertension and for the past month right lower back pain that is decreased his mobility. He is followed with Basali and an injection with no improvement and also been referred to spine. For the past 2 days he had increased pain of his left groin and medial thigh as well as behind his knee and his left lateral calf. Denies any new trauma. Thought maybe is from the way he is walking. Is on Eidson, gabapentin and Motrin and it still not relieving his pain. He denies any associated chest pain or shortness of breath. His significant other is noticed that when he stands his leg becomes more red and swell significantly. He denies any associated numbness or tingling. Denies any history of DVT or PE however he states he has a family history of strokes and clots. We do not currently have ultrasound available for venous duplex however I perform a bedside ultrasound and I am not able to compress the left common femoral vein. I am concerned that he does have DVT and this does fit his clinical picture. He has strong distal pulses. Patient's will be started on Eliquis. He has not had any bleeding issues. He is counseled on the risk of leaving. Basic blood work obtained including a CBC, BMP and urinalysis as well as a CK. These are largely normal. Patient is given first dose of Eliquis in the ER. Case is discussed with Dr. Mccall, vascular surgery who request the note be CCed to him so that the office can contact him for outpatient follow-up. Formal venous duplex ultrasound is ordered. At this time I have a high suspicion for DVT and think the benefit of treating the DVT before formal ultrasound outweighs the risk of not. Patient is given return precautions. He verbalizes agreement understand this plan. I did discuss that if his DVT study is positive he does not need to return to the emergency room for treatment as we have already started full treatment. Discharge Plan Triage Chief Complaint: Lower Extremity Injury Other Complaint: Other, Pain/Inj ED Midlevel Provider: Kirstin Javier ED Provider: Sivan Beckford Dx/Rx/DC Orders Clinical Impression: Acute pain of left lower extremity, DVT (deep venous thrombosis) Instructions: DVT Dc Prescriptions: New Eliquis DVT-PE Treat 30D Start 5 mg (74 tabs) tablets,dose pack 5 mg PO BID Qty: 74 0RF No Action Losartan/Hydrochlorothiazide [Hyzaar 100-12.5 Tablet] 1 TAB tablet 1 tab PO DAILY tizanidine 2 mg Tablet 4 mg PO Q8H PRN PRN (Reason: MUSCLE SPASM) 10 Days Qty: 30 0RF pantoprazole 40 mg Tablet,Delayed Release (Dr/Ec) 40 mg PO DAILY 30 Days Qty: 30 0RF ibuprofen 600 mg Tablet 600 mg PO Q8H PRN (Reason: muscle pain) Qty: 0 0RF Rx Instructions: [id number], every 8 hourly for 3 days and then as needed as needed for muscle pain Other Ambulatory Orders: Venous Duplex US, Unilateral (Stat) Facility: [facility] - Location: [facility] Ordered By: Kirstin Javier Primary Care Provider: Rogelio Colvin Chi Referrals: Bryn Mccall MD [Med Staff - Active Staff] - Rogelio Colvin Chi, MD [Primary Care Provider] - Activity Restrictions/Additional Instructions: Return tomorrow for the ultrasound. We are treating you today as potentially having a blood clot in your left leg. We started medication called Eliquis which is a blood thinner. If the scan tomorrow confirms there is a clot keep taking this medication. If there is no clot to stop taking it. If the test is positive you do not need to return back to the emergency room, just follow-up with your primary care doctor. Disposition Disposition: Home, Self Care Discharge Date/Time: 12/31/22 22:28
[2022-12-31] MEDS: oxyCODONE 5 MG Tablet PO (19:42)
[2022-12-31] MEDS: Ketorolac 15 MG/ML Vial IM (19:43)
[2022-12-31 21:35] LABS: Absolute Lymphocyte Count 1.34 X10^3/uL (0.83-4.51); Absolute Neutrophil Count 8.7 X10^3/uL (2.0-7.7); Basophil# 0.03 X10^3/uL; Basophil% 0.3 % (0-1); Eosinophil# 0.13 X10^3/uL; Eosinophils% 1.2 % (0-5); Hematocrit 45.5 % (40-54); Hemoglobin 15.4 g/dL (13.0-16.5); Lymphocyte # 1.34 X10^3/ul (0.83-4.51); Lymphocyte % 12.1 % (19-41); Mean Corp Hgb Conc 33.8 g/dL (32-36); Mean Corpuscular Hgb 30.3 pg (27.0-32.0); Mean Corpuscular Volume 89.6 fL (80-94); Mean Platelet Vol. 9.1 fl (6.2-12.0); Monocyte# 0.88 X10^3/uL; NRBC Flagged by Analyzer 0 % (0-5); Neutrophil # 8.65 X10^3/uL (2.7-7.7); Neutrophil % 78.1 % (47-70); Platelet Count 182 K/mm3 (150-450); RBC Distribution Width CV 12.5 % (11.6-14.6); Red Blood Count 5.08 M/mm3 (4.6-6.2); White Blood Count 11.1 K/mm3 (4.4-11.0)
[2022-12-31 21:36] LABS: Color, Urine Yellow (Yellow); Glucose, Dipstick Normal (Normal); Ketone-Dipstick Negative (Negative); Leukocyte Esterase-Dipstick Negative /ul (Negative); Nitrite-Dipstick Negative (Negative); Occult Blood-Urine 10 /ul (Negative); Protein-Dipstick 15 mg/dl (Negative); Specific Gravity, Urine 1.025 (1.002-1.030); Urine Bilirubin Dipstick Negative (Negative); Urine Clarity Sl. Cloudy (Clear); Urine Urobilinogen 1 mg/dl (Normal)
[2022-12-31 21:47] LABS: Bacteria RARE /hpf (None Seen); Mucous, Urine RARE /hpf (<or=2+); Red Blood Cells-Urine 0-5 SEEN /hpf (0-5); Squamous Epithelial Cells - UA 0-5 SEEN /hpf (0-5); White Blood Cells 0-5 SEEN /hpf (0-5)
[2022-12-31 21:52] LABS: Anion Gap 6 (5-15); BUN 26 mg/dL (7-18); BUN/Creat Ratio 26.6 RATIO (10-20); CPK Total, Creatine Kinase 26 U/L (39-308); Calcium,Total 9.1 mg/dL (8.5-10.1); Chloride 106 mmol/L (98-107); Creatinine, Serum 0.98 mg/dL (0.70-1.30); EST Glomerular Filtration Rate 87 mL/min (>60); Est Glom Filt Rate - Afr Amer 105 mL/min (>60); Estimated Creatinine Clearance 106.01 ml/min; Glucose 130 mg/dL (74-106); Potassium 4.1 mmol/L (3.5-5.1); Sodium Level 140 mmol/L (136-145)
[2022-12-31 22:06] VITALS: BP 143/102; PULSE 80; RESP 16; O2SAT 98
[2022-12-31] MEDS: APIXABAN 5 MG TABLET 10 MG PO (22:07)
== END 2022-12-31 22:28 | disposition home or self-care (01) ==
PROVIDERS: Physician Assistant; Emergency Provider Emergency Medicine; PCP Family Medicine Geriatric Medicine; Visit Provider Emergency Medicine
DX: M79.662 Pain in left lower leg (principal); I82.402 Acute embolism and thrombosis of unspecified deep veins of left lower extremity
CPT/HCPCS: 80048; 81001; 82550; 85025; 96372; 99283

== ENCOUNTER → 2023-01-01 | Outpatient (CLI) | payer OTHER, SELFPAY ==
--- NOTE | 2023-01-01 10:54 | VDLE_ITS ---
Reason For Study: LEG PAIN RIGHT LEFT CFV is compressible, spontaneous, phasic, Acute deep vein thrombosis is noted in the competent and demonstrates normal left common femoral vein. augmentation. Acute deep vein thrombosis is noted in the Procedure left femoral vein. This is a venous duplex using B-mode, color Acute deep vein thrombosis is noted in the flow and spectral Doppler. left popliteal vein. Exam performed in department. Acute deep vein thrombosis is noted in the The exam was diagnostic. left posterior tibial vein. A preliminary report was called and/or faxed Acute deep vein thrombosis is noted in the to RN at Dr. Colvin's office. left peroneal vein. Acute deep vein thrombosis is noted in the left gastrocnemius vein. Acute superficial vein thrombosis is noted in the left small saphenous vein. Partial flow noted in CFV and proximal portion of femoral vein and doppler flow appears to cease at Mid FV. Deep Femoral vein and GSV appear compressible, patent and demonstrate doppler and color flow. VL/Venous Duplex US, Unilateral Interpretation Summary Acute deep venous thrombosis left common femoral, femoral, popliteal, posterior tibial, peroneal, and gastrocnemius veins. Visible thrombus is identified. Superficial thrombophlebitis left small saphenous vein Patent and compressible left great saphenous vein Normal flow patterns right common femoral vein Ordering Physician: Kirstin Javier Referring Physician: Rogelio Colvin Chi Performed By: [employer], RVT
== END | disposition home or self-care (01) ==
LOC: CVS 10:53
PROVIDERS: PCP Family Medicine Geriatric Medicine; Visit Provider Physician Assistant
DX: M79.662 Pain in left lower leg (principal)
CPT/HCPCS: 93971

== ENCOUNTER 2023-01-09 16:09 | Inpatient (IN) | payer OTHER, SELFPAY ==
[2023-01-09 15:22] VITALS: BMI 29.7
[2023-01-09 15:31] VITALS: BP 126/94; PULSE 88; RESP 16; TEMP 36.6; O2SAT 99
[2023-01-09 16:37] LABS: Hematocrit 42.4 % (40-54); Hemoglobin 13.8 g/dL (13.0-16.5); Mean Corp Hgb Conc 32.5 g/dL (32-36); Mean Corpuscular Hgb 29.2 pg (27.0-32.0); Mean Corpuscular Volume 89.6 fL (80-94); Mean Platelet Vol. 8.8 fl (6.2-12.0); Platelet Count 268 K/mm3 (150-450); RBC Distribution Width CV 12.6 % (11.6-14.6); RBC Distribution Width SD 41.2 fl (35.1-43.9); Red Blood Count 4.73 M/mm3 (4.6-6.2); White Blood Count 5.6 K/mm3 (4.4-11.0)
--- NOTE | 2023-01-09 16:46 | PCM.HP.STD ---
HPI - General General Date of Admission: 01/09/23 Date of Service: 01/09/23 Chief Complaint: LLE DVT HPI Narrative DELTA CHEEK, is a 47 M who is admitted for heparin bridge in preparation for thrombectomy with possible stenting in the laboratory supervisor 01/10/23. Patient reported left leg pain/edema starting around 12/26, presented to ER on 12/31 and was found to have extensive DVT up to and including his femoral vein. This occurred secondary to a back injury Dec 01 which significantly limited his activity. He was started on Xarelto. He continues to have persistent symptoms of LLE swelling/heaviness/pain which is limiting his mobility/activity. As such, he is agreeable to proceed with thrombectomy to reduce clot burden with goal of improving his symptoms and minimizing chronic post-thrombotic complications. If central venous compression is identified at time of thrombectomy, plan to treat with stenting as indicated. He denies any changes in his health or medications since he was seen in office on 01/04/23. He endorses back pain, which he has been dealing with since his injury in November. His LLE pain/swelling is about the same, no significant improvement over the last week. He reports he is now noticing some R groin pain as well. Otherwise, denies F/C, N/V, CP, SOB, palpitations, syncope/pre-syncope, hematuria, blood in the stool. Last dose of Xarelto was this morning. [facility] Medical History Hypertension Hypertension Home Medications pantoprazole 40 mg tablet,delayed release 40 mg PO DAILY 30 days #30 tabs 12/07/22 [Rx Last Taken Unknown] hydrocodone-acetaminophen 5-325mg 5mg-325mg 1 tab PO BID 01/04/23 [History Last Taken Unknown] pregabalin 75 mg capsule 75 mg PO 4X/DAY 01/04/23 [History Last Taken Unknown] rivaroxaban 20 mg tablet (Xarelto) 15 mg PO BID 01/04/23 [History Last Taken Unknown] valsartan 160 mg tablet 160 mg PO DAILY 01/04/23 [History Last Taken Unknown] Allergy/AdvReac Type Severity Reaction Status Date / Time No Known Allergies Allergy Verified 01/04/23 14:37 Surgical History History of femoral hernia repair Social History Smoking Status: Never smoker Smokeless tobacco user: chewing tobacco how long ago did patient quit smokin can every 4-5 days alcohol intake: never ROS Constitutional Constitutional: Denies change in weight, chills, difficulty sleeping, fatigue, fever(s), frequent falls, lethargy, night sweats or weakness Eyes Eyes: Denies blindness, blurry vision, change in vision, eye pain or ptosis ENT HEENT: Denies abnormal hearing, change in voice, hearing loss, loss taste/smell or vertigo Cardiovascular Cardiovascular: Denies abdominal pain, chest pain, claudication, cold extremities, cyanosis, diaphoresis, dyspnea, dyspnea on exertion, fatigue, irregular heart rhythm, leg edema, leg ulcers, orthopnea, palpitations, radiating jaw, neck or arm pain or syncope Respiratory/Chest Respiratory/Chest: Denies cough, dyspnea, hemoptysis, nail bed cyanosis, roberto-oral cyanosis, portable oxygen @ home, productive cough or wheezing Gastrointestinal Gastrointestinal: Denies abdominal pain, change in bowel habits, change in stool character, coffee ground emesis, hematochezia, melena, rectal bleeding or weight changes Genitourinary Genitourinary: Denies abdominal discomfort, burning urination, difficulty urinating, flank pain or hematuria Musculoskeletal Musculoskeletal: Reports back pain and extremity pain; Denies abnormal gait, difficulty walking, joint swelling, muscle cramps, muscle weakness or numbness Integumentary Integumentary: Denies change in pigmentation, changing lesions, erythema, lesions, rash, skin ulcer, unusual bruising or wounds Neurologic Neurologic: Denies abnormal gait, abnormal movements, abnormal speech, behavior changes, frequent falls, syncope, tingling or weakness Psychiatric Psychiatric: Denies behavioral changes, cognitive impairment or depression Endocrine Endocrinology: Denies change in body appearance, cold intolerance, excessive sweating, flushing, heat intolerance, palpitations, polydipsia, polyphagia or polyuria Hematologic/Lymphatic Hematologic/Lymphatic: Denies anemia, easy bleeding, easy bruising or lymphadenopathy Allergic/Immunologic Allergic/Immunologic: Denies seasonal rhinorrhea, throat swelling, tongue swelling, hives or asthma Vital Signs Vital Signs Vital Signs: 01/09/23 15:31 Temperature 97.8 F Temperature Source Oral Pulse Rate 88 Respiratory Rate 16 Blood Pressure 126/94 H Blood Pressure Mean 104 Blood Pressure Source Monitor Blood Pressure Position Semi-Fowlers Blood Pressure Location Left Arm Pulse Ox 99 Oxygen Delivery Method Room Air Physical Exam Const alert, oriented x3 and no apparent distress General Appearance: cooperative and comfortable HEENT normocephalic, hearing grossly normal bilaterally and external ears normal Head and Scalp: normal to inspection Nose: external nose normal Eyes EOMs intact bilaterally General Eye: normal appearance of both eyes Neck full ROM General: normal visual inspection and trachea midline; Negative for anterior neck swelling Resp normal respiratory effort, normal air movement, no retractions, no use of accessory muscles and clear to auscultation bilaterally Effort and Inspection: able to speak in complete sentences and symmetric chest movement; Negative for labored, stridor or audible wheezes Cardio regular rate and regular rhythm Peripheral Pulses: pulses 2+ throughout Extremity Extremity Narrative: LLE edema. Palpable DP/PT pulses bilaterally. Good color, appropriate warmth. Skin no rashes or lesions noted, no wounds and no mottling General Skin Exam: Negative for erythema, petechiae, purpura or pallor Trauma: no lacerations or abrasions Neuro oriented x3, CN's II-XII intact bilaterally, moves all extremities, no focal motor deficits and no sensory deficits noted Speech: speech normal Psych mental status grossly normal, thought process normal, cooperative, affect normal, speech normal and activity/motor behavior normal Appearance: grossly normal Attitude: calm and engaged Activity / Motor Behavior: appropriate eye contact Attention / Concentration: attention grossly intact Memory / Cognition: memory grossly intact Results Lab / Micro Data Result Diagrams: 01/09/23 16:31 01/09/23 16:31 Labs: Laboratory Results - last 24 hr 01/09/23 16:31: WBC 5.6, RBC 4.73, Hgb 13.8, Hct 42.4, MCV 89.6, MCH 29.2, MCHC 32.5, RDW Std Deviation 41.2, RDW Coeff of Alejo 12.6, Plt Count 268, MPV 8.8 Assessment & Plan Assessment/Plan (1) DVT (deep venous thrombosis): PLAN: All of patients question and concerns were addressed and he was agreeable to proceed with procedure. Proceed with thrombectomy possible stenting as planned in laboratory supervisor 01/10/23 at 0800. Hold Xarelto. Start full-dose heparin drip. Obtain aPTT every 6 hours for heparin dosing per protocol. No need to stop prior to procedure, will stop heparin once patient is in the laboratory supervisor. NPO after midnight. Plan to return patient to PCU following procedure for hemodynamic monitoring and transition back to Xarelto. Charges/Coding Visit Charges Inpatient E&M: 89880 Init Hosp L1
[2023-01-09 16:51] LABS: Anion Gap 7 (5-15); BUN 19 mg/dL (7-18); BUN/Creat Ratio 18.8 RATIO (10-20); Calcium,Total 8.9 mg/dL (8.5-10.1); Chloride 103 mmol/L (98-107); Creatinine, Serum 1.01 mg/dL (0.70-1.30); EST Glomerular Filtration Rate 83 mL/min (>60); Est Glom Filt Rate - Afr Amer 101 mL/min (>60); Glucose 108 mg/dL (74-106); Potassium 3.5 mmol/L (3.5-5.1); Sodium Level 140 mmol/L (136-145)
[2023-01-09 16:57] LABS: International Normalized Ratio 1.5; Prothrombin Time (Protime)PT. 17.5 SECONDS (11.7-14.9)
[2023-01-09 16:58] LABS: Partial Thromboplast Time 33.6 Seconds (24.1-36.2)
[2023-01-09] MEDS: HEPARIN/D5w 25,000 UNITS 25,000 UNITS/250 ML IV.SOLN. 15 UNITS CONT INF (19:14)
[2023-01-09] MEDS: Pregabalin 75 MG Capsule PO ×2 (19:15→22:06)
[2023-01-09] MEDS: HYDROcodone Bitartrate/Apap 5/325 Tablet PO (21:59)
[2023-01-09 22:37] VITALS: BP 135/91; PULSE 80; RESP 16; TEMP 37.1; O2SAT 97
[2023-01-10 02:19] LABS: Partial Thromboplast Time 55.9 Seconds (24.1-36.2)
[2023-01-10] MEDS: Acetaminophen 500 MG Tablet 1000 MG PO (02:45)
[2023-01-10 03:00] VITALS: BP 122/83; PULSE 72; RESP 16; TEMP 36.6; O2SAT 96
--- NOTE | 2023-01-10 05:49 | EKG12_ITS ---
Test Reason : AM EKG Blood Pressure : / mmHG Vent. Rate : 071 BPM Atrial Rate : 071 BPM P-R Int : 150 ms QRS Dur : 080 ms QT Int : 364 ms P-R-T Axes : 039 016 013 degrees QTc Int : 395 ms Normal sinus rhythm Normal ECG Confirmed by MYA TRISTAN, EFRAIN ([id number]), features editor SARAH GOLDMAN ([id number]) on 01/11/2023 9:50:34 AM Referred By: Confirmed By:EFRAIN ROQUE MD
[2023-01-10 06:17] LABS: Absolute Lymphocyte Count 1.56 X10^3/uL (0.83-4.51); Absolute Neutrophil Count 3.1 X10^3/uL (2.0-7.7); Basophil# 0.04 X10^3/uL; Basophil% 0.7 % (0-1); Eosinophil# 0.14 X10^3/uL; Eosinophils% 2.6 % (0-5); Hematocrit 42.1 % (40-54); Hemoglobin 13.8 g/dL (13.0-16.5); Lymphocyte # 1.56 X10^3/ul (0.83-4.51); Lymphocyte % 29.2 % (19-41); Mean Corp Hgb Conc 32.8 g/dL (32-36); Mean Corpuscular Hgb 29.3 pg (27.0-32.0); Mean Corpuscular Volume 89.4 fL (80-94); Mean Platelet Vol. 8.7 fl (6.2-12.0); Monocyte# 0.49 X10^3/uL; Monocyte% 9.2 % (0-10); NRBC Flagged by Analyzer 0 % (0-5); Neutrophil # 3.09 X10^3/uL (2.7-7.7); Neutrophil % 57.9 % (47-70); Platelet Count 246 K/mm3 (150-450); RBC Distribution Width CV 12.5 % (11.6-14.6); RBC Distribution Width SD 41.2 fl (35.1-43.9); Red Blood Count 4.71 M/mm3 (4.6-6.2); White Blood Count 5.3 K/mm3 (4.4-11.0)
[2023-01-10 06:48] LABS: Anion Gap 5 (5-15); BUN 21 mg/dL (7-18); BUN/Creat Ratio 19.4 RATIO (10-20); Chloride 104 mmol/L (98-107); Creatinine, Serum 1.08 mg/dL (0.70-1.30); EST Glomerular Filtration Rate 77 mL/min (>60); Est Glom Filt Rate - Afr Amer 93 mL/min (>60); Glucose 115 mg/dL (74-106); Potassium 3.8 mmol/L (3.5-5.1); Sodium Level 137 mmol/L (136-145)
[2023-01-10 07:32] VITALS: BP 136/97; PULSE 75; RESP 17; TEMP 36.8; O2SAT 98
--- NOTE | 2023-01-10 10:49 | OP.PCM_ITS ---
Report of Operation Date of Procedure: 01/10/23 Pre-Operative Diagnosis: DVT Post-Operative Diagnosis: Same, bilateral common/external iliac vein and IVC compression Surgeon: Bryn Mccall Type of Anesthesia: Local and Sedation,Conscious Estimated Blood Loss (mL): 200 Description of Procedure: HPI: Patient is a 47-year-old male who was found to have a provoked extensive left lower extremity DVT after decreased activity from a back injury. Given the extent of DVT and minimal improvement with simple anticoagulation he is felt appropriate for thrombectomy. Also given the extent of thrombus and symptoms persisting there is suspicion that he is got some central venous compression as well. He is taken now for venogram with thrombectomy and possible stenting. Description of procedure: Upon obtaining form consent and verification correct patient procedure site patient was taken to the [facility] where he was positioned prepped and draped in usual sterile fashion. Timeout was then performed conscious sedation administered with Versed and fentanyl. Skin overlying the left popliteal vein was anesthetized 1% lidocaine and accessed under ultrasound guidance with a micropuncture needle and wire obtained. This was then exchanged for micropuncture sheath through which a J-wire was advanced and the micropuncture sheath exchanged out for a short 5 [place] sheath. Through the 5 [place] sheath Bentson wire was advanced and using the Bentson wire and glide catheter we traversed the DVT, ultimately advancing into the inferior vena cava. Hand-injection via the catheter revealed presence within the inferior vena cava cephalad any thrombus. A glide advantage wire was then advanced via the glide catheter and the glide catheter and 5 [place] sheath exchanged out for a 10 [place] sheath. Through the 10 [place] sheath an intravascular ultrasound probe was advanced and recorded pullback of the inferior vena cava, right common iliac vein, left external iliac vein, left common femoral vein, left femoral vein, and left popliteal vein was performed. This revealed presence within the dominant venous return vessels as well as revealed the extent of thrombus from the popliteal vein to the common femoral vein. This also confirmed that there was significant compression of both the external and common iliac vein on the left but also the inferior vena cava as well. Given the location of compression is felt that right popliteal access was required as well and that likely there will be need for stenting of both iliacs. Skin was anesthetized over the right popliteal vein and accessed under ultrasound guidance obtained with a micropuncture needle and wire. This then exchanged for micropuncture sheath through which the Bentson wire was advanced and the micropuncture sheath exchanged out for the 10 [place] sheath. The left popliteal 10 [place] sheath was then exchanged out for an 11 [place] sheath. Patient was then heparinized and repeat dosing adjusted with ACT measurements. Intravascular sound then advanced via the right popliteal access vessel and recorded pullback of the inferior vena cava, right common iliac vein, right external iliac vein was performed which revealed compression at the confluence of the iliac veins as well as the right external iliac vein. Next the penumbra mechanical thrombectomy device was brought in the field and prepped for manufactures instructions. This was then advanced via the left popliteal access sheath and engaged across the popliteal, femoral, and common femoral veins with significant thrombus returned. After several passes hand-injection venogram of the left lower extremity performed which revealed no significant residual thrombus and repeat intravesical ultrasound of the thrombectomized portion revealed very minimal chronic mural thrombus. Is felt that no further thrombectomy was required so we then turned our focus to treating the central compression. Repeat recorded pullback of the left iliac system was performed in size and length measurements obtained of both the left and right common and external iliac veins. In the left external iliac vein and 18 x 100 Medtronic Abre stent was selected, and the right external iliac vein and 18 x 100 Medtronic Abre stent. These were advanced in the position and deployed. Next an 18 x 120 Medtronic stent was selected for the left common iliac vein with satisfactory overlap into the the initial stent. For the right common iliac vein a 20 x 120 Medtronic stent was selected, again with satisfactory overlap in the initial stent. These were then advanced in the position with overlap also into the normal caliber vena cava and deployed simultaneously. The left common and external iliac vein were then angioplastied with a Stratford 16 x 4 angioplasty balloon. The right common iliac vein was angioplastied with an 18 x 4 [employer] angioplasty balloon, and the right external angioplastied again with the 16 x 4. Intravascular sound was then readvanced via each of the popliteal access sites and recorded pullback performed of the stented segments. There is satisfactory wall apposition with complete resolution of any compression in both the right and left common and external iliac veins. Seeing no need for further intervention the wires were withdrawn a silk U stitch was then placed in the skin surrounding the popliteal sheath and secured as the sheath was removed. Manual pressure was then held for 10 minutes after which satisfactory stasis was noted the patient was then awakened from sedation and taken to the recovery room with anticipated return to the PCU. Radiograph interpretation: Left popliteal and femoral vein with occlusive thrombus preintervention, with resolution after thrombectomy. Inferior vena cava normal caliber with no thrombus present. Bilateral common and external iliac veins with significant compression, resolved after intervention. Grafts/Implants Used: Abre venous stent: right [id number], [id number]; left [id number], [id number]
[2023-01-10 12:54] VITALS: BP 150/92; PULSE 90; RESP 14; TEMP 36.8; O2SAT 98
[2023-01-10] MEDS: Pantoprazole Sodium 40 MG Tablet PO (13:00)
[2023-01-10] MEDS: Losartan Potassium 50 MG Tablet PO (13:00)
[2023-01-10] MEDS: hydroCHLOROthiazide 12.5mg 12.5 MG PO (13:01)
[2023-01-10] MEDS: Aspirin E.C. 325 MG Tablet PO (13:07)
[2023-01-10] MEDS: Pregabalin 75 MG Capsule PO ×3 (13:07→21:52)
[2023-01-10] MEDS: HYDROcodone Bitartrate/Apap 5/325 Tablet PO ×2 (13:08→22:56)
[2023-01-10] MEDS: HEPARIN/D5w 25,000 UNITS 25,000 UNITS/250 ML IV.SOLN. 15 UNITS CONT INF (13:33)
--- NOTE | 2023-01-10 15:18 | CASEMGMT ---
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 Patient is aware they are not on file at [facility]. Patient's friend Don is his Healthcare Power of Literacy Education Professor per admission questions. oTya JUNIOR
[2023-01-10] MEDS: oxyCODONE 5 MG Tablet PO (15:19)
[2023-01-10 16:44] LABS: ACT Activated Clotting Time 215 sec (74-137)
[2023-01-10 16:44] LABS: Partial Thromboplast Time 95.6 Seconds (24.1-36.2)
[2023-01-10 16:44] LABS: ACT Activated Clotting Time 263 sec (74-137)
[2023-01-10] MEDS: Ketorolac 30 MG/ML Syringe IV (16:57)
[2023-01-10] MEDS: 0.9% Saline Lock 10 ML Syringe IV ×3 (16:57→21:49)
[2023-01-10] MEDS: HYDROmorphone Inj 0.2 MG/ML SYRINGE IV ×2 (17:41→21:47)
[2023-01-10 21:46] VITALS: BP 125/81; PULSE 71; RESP 16; TEMP 36.6; O2SAT 96
[2023-01-11 00:05] LABS: Partial Thromboplast Time 47.7 Seconds (24.1-36.2)
[2023-01-11] MEDS: 0.9% Saline Lock 10 ML Syringe IV ×4 (00:08→12:12)
[2023-01-11] MEDS: Ketorolac 30 MG/ML Syringe IV ×3 (00:08→12:12)
[2023-01-11] MEDS: Heparin Injection (Vial) 5,000 UNIT/ML VIAL IV ×2 (00:45→07:44)
[2023-01-11] MEDS: HYDROmorphone Inj 0.2 MG/ML SYRINGE IV ×2 (01:49→05:53)
[2023-01-11 04:22] VITALS: BP 124/80; PULSE 70; RESP 14; TEMP 36.9; O2SAT 98
[2023-01-11 06:54] LABS: Hematocrit 37.9 % (40-54); Hemoglobin 12.3 g/dL (13.0-16.5); Mean Corp Hgb Conc 32.5 g/dL (32-36); Mean Corpuscular Hgb 29.6 pg (27.0-32.0); Mean Corpuscular Volume 91.1 fL (80-94); Mean Platelet Vol. 8.7 fl (6.2-12.0); Platelet Count 215 K/mm3 (150-450); RBC Distribution Width CV 12.8 % (11.6-14.6); RBC Distribution Width SD 42.2 fl (35.1-43.9); Red Blood Count 4.16 M/mm3 (4.6-6.2); White Blood Count 6.3 K/mm3 (4.4-11.0)
[2023-01-11 07:07] LABS: Partial Thromboplast Time 51.2 Seconds (24.1-36.2)
[2023-01-11 07:46] LABS: Anion Gap 5 (5-15); BUN 16 mg/dL (7-18); BUN/Creat Ratio 16.1 RATIO (10-20); Calcium,Total 8.6 mg/dL (8.5-10.1); Chloride 105 mmol/L (98-107); EST Glomerular Filtration Rate 85 mL/min (>60); Est Glom Filt Rate - Afr Amer 103 mL/min (>60); Estimated Creatinine Clearance 103.89 ml/min; Glucose 110 mg/dL (74-106); Potassium 3.9 mmol/L (3.5-5.1); Sodium Level 140 mmol/L (136-145)
[2023-01-11 09:51] VITALS: BP 135/87; PULSE 79; RESP 14; TEMP 36.9; O2SAT 98
[2023-01-11] MEDS: HYDROcodone Bitartrate/Apap 5/325 Tablet PO (09:54)
[2023-01-11] MEDS: Rivaroxaban 15 MG Tablet PO (09:54)
[2023-01-11] MEDS: Pregabalin 75 MG Capsule PO (09:54)
[2023-01-11] MEDS: Losartan Potassium 50 MG Tablet PO (09:55)
[2023-01-11] MEDS: Aspirin E.C. 81 MG Tablet PO (09:55)
[2023-01-11] MEDS: hydroCHLOROthiazide 12.5mg 12.5 MG PO (09:55)
[2023-01-11] MEDS: Pantoprazole Sodium 40 MG Tablet PO (09:55)
--- NOTE | 2023-01-11 10:30 | CASEMGMT ---
ADILSON JACKSON Face to Face with patient for initial transition planning/care coordination assessment. RN CM introduced self and role at [facility]. Patient lying in bed, alert and oriented. Patient willing to participate in assessment and is able to answer all questions appropriately. Care providers, pharmacy, and demographics verified. Patient wishes to discharge home, denies need for home health at this time. Patient states he has no further needs or concerns at this time. CM to follow for discharge planning needs that may arise. PCP: Vinicius Specialists: Stefany, vascular; Mark, ortho; Basalseda, pain Preferred Pharmacy: [facility] Insurance: MMO Prescription Benefit: yes, savings cards for Xarelto provided to patient Living Will/HPOA: none working on completing LNOK: significant other February Living Arrangements: Patient lives alone in a split level home with 5-7 steps between levels. Patient states he is independent and able to ambulate stairs. Transportation: self, significant other DME/HHC: Patient states he has shower chair, rasied toilet, cane, crutches, walker at home. No previous HHC or SNF. Disposition Plan: Patient to discharge home with family support and follow-up plans in place. Court DELCID, RN, CM
--- NOTE | 2023-01-11 11:43 | DS.PCM_ITS ---
Providers Date of Admission: 01/09/23 Date of Discharge: 01/11/23 Primary Care Physician: Dr. Rogelio Colvin MD Reason For Visit: THROMDECTOMY POSSIBLE STENT Diagnosis Discharge Diagnosis (1) DVT (deep venous thrombosis): Status: Acute Code(s): I82.409 - Acute embolism and thrombosis of unspecified deep veins of unspecified lower extremity Medications at Discharge Home Medications pantoprazole 40 mg tablet,delayed release 40 mg PO DAILY 30 days #30 tabs 12/07/22 hydrocodone-acetaminophen 5-325mg 5mg-325mg 1 tab PO BID 01/04/23 pregabalin 75 mg capsule 75 mg PO 4X/DAY 01/04/23 rivaroxaban 20 mg tablet (Xarelto) 15 mg PO BID 01/04/23 valsartan 160 mg tablet 160 mg PO DAILY 01/04/23 aspirin 81 mg tablet,delayed release 81 mg PO BREAKFAST #0 tabs 01/11/23 Hospital Course Operations - (percutaneous mechanical thrombectomy with bilateral iliac vein stenting) Summary of Care Provided Hospital Course: Patient was admitted 01/09/2023 for heparin bridge in preparation for scheduled thrombectomy procedure. Patient underwent venogram, thrombectomy, and bilateral iliac vein stenting on 01/10/2023. The procedure went as planned and the patient tolerated well. Access sites in bilateral popliteal fossa closed with sutures. Patient was found to have extensive DVT up to and including left femoral vein on 12/31/2022. This developed after he injured his back in November and had reduced activity. He was started on Xarelto, but still with significant symptoms includ ing LLE swelling, pain, discomfort/tightness. As such, he elected to undergo thrombectomy to reduce clot burden, improve his symptoms, and to minimize post- thrombotic effects including chronic skin changes and swelling. Patient was also found to have significant central venous compression which treated with stenting thereby reducing his future risk of DVT. Patient did experience pain with venous stenting during the procedure. He also had baseline back pain secondary to his back injury which was exacerbated by prone positioning for procedure. As such, patient was ultimately given IV dilaudid PRN. Following the procedure, patient was restarted on heparin drip which continued overnight. He remained hemodynamically stable throughout his stay, no significant bleeding/swelling/hematoma at access site. He was transitioned back to Xarelto 15mg BID on 01/11/2023 without issue. On day of discharge, patient was hemodynamically stable, access sites with satisfactory appearance, tolerating diet, ambulating well, and managing pain with oral medications. He will continue Xarelto 15mg BID until loading dose pack is completed, then continue Xarelto 20mg daily in addition to ASA daily for 6 months. After 6 months, plan to d/c Xarelto and continue with DAPT for 1 year. Patient will f/u in office in 1-2 weeks for suture removal and further f/u and serial imaging will be coordinated at that time. Physical Exam Const oriented x3 and no apparent distress Resp normal respiratory effort and clear to auscultation bilaterally Cardio regular rate and regular rhythm Extremity normal to inspection and normal capillary refill Extremity Narrative: Mild LLE edema. Appropriate warmth, no tenderness to palpation. Palpable DP and PT pulses. Peripheral Pulses: Yes brachial pulses present, radial pulses present, posterior tibial pulses present and dorsalis pedis pulses present Skin Wound Narrative: Bilateral popliteal incision sites with satisfactory appearance. Left incision with mild ecchymosis, no significant swelling/hematoma, bleeding, erythema, drainage, warmth. Right incision site with no significant ecchymosis, swel ling/hematoma, bleeding, drainage, warmth erythema. Weight / BMI Weight Weight: 231 lb 7.766 oz Body Mass Index (BMI) 29.7 ABG / Lab / Microbiology Data Result Diagrams: 01/11/23 06:45 01/11/23 06:45 Laboratory: Laboratory Results - last 24 hr 01/10/23 08:55: Activated Clotting Time 263 H 01/10/23 09:25: Activated Clotting Time 215 H 01/10/23 16:05: APTT 95.6 H* 01/10/23 23:45: APTT 47.7 H 01/11/23 06:45: WBC 6.3, RBC 4.16 L, Hgb 12.3 L, Hct 37.9 L, MCV 91.1, MCH 29.6, MCHC 32.5, RDW Std Deviation 42.2, RDW Coeff of Alejo 12.8, Plt Count 215, MPV 8.7 01/11/23 06:45: Sodium 140, Potassium 3.9, Chloride 105, Carbon Dioxide 30.0, Anion Gap 5, BUN 16, Creatinine 1.00, Estim Creat Clear Calc 103.89, Est GFR (MDRD) Af Amer 103, Est GFR (MDRD) Non-Af 85, BUN/Creatinine Ratio 16.1, Glucose 110 H, Calcium 8.6 01/11/23 06:45: APTT 51.2 H D/C Instructions Discharge Diet: No restrictions May shower in (days): 1 May resume sexual activity in: 1-2 weeks Weight Bearing Status: Weight bearing as tolerated Lifting Restricted to (Lbs): 20 Lifting Restrictions: Do not lift >20 pounds for 3 weeks Call your doctor if your incision/area has: Sudden Increased Bleeding, Increased Pain/ Swelling, Increased Redness, Foul Smelling Discharge and Swelling at the i ncision site Call your doctor if you observe: Fever of 101 or Higher and Uncontrolled pain Remove Dressing in: 1 day Additional Dressing/Incision Instructions: You may remove the dressings tomorrow. You may leave them open to air after than, or cover with dry dressing as needed for your comfort. You may allow soap/water to rinse over the incision sites, be sure to pat them dry. Do not submerge incision sites in water for 3 weeks. You will return to office in 1-2 weeks to have sutures removed. Additional Instructions: Do not lift >20 pounds for 3 weeks. Note was provided for your job. Do not submerge incision sites in water for 3 weeks. You may shower tomorrow. Okay for soap/water to run over incision sites, pat dry after. You may remove dressings tomorrow. Continue Xarelto 15mg BID until that prescription is completed. You received your first dose this morning, take your next dose this evening. After you have completed the 15mg pills, continue with Xarelto 20mg daily as prescribed. Continue with ASA daily. Return to office in 1-2 weeks for suture removal. Please Follow Up With: Bryn Mccall MD When: 1-2 weeks Meaningful Use Info Meaningful Use Diagnoses (Choose all that apply): VTE VTE Anticoag overlap given w/in hospital stay or rx'd at dc?: Yes Pt receive overlap for 5 days?: Yes Discharge Plan Admission Admit Date/Time: 01/09/23 16:09 Primary Reason for Your Visit: DVT; thrombectomy Attending Provider: Bryn Mccall Primary Care Provider: Rogelio Colvin Chi Discharge Orders/Prescriptions Prescriptions: New aspirin 81 mg Tablet,Delayed Release (Dr/Ec) 81 mg PO BREAKFAST Qty: 0 0RF Continued pregabalin 75 mg capsule 75 mg PO 4X/DAY Label Comments: pt takes at 0800, 1200, 1600, 2000 Xarelto 20 mg tablet 15 mg PO BID Rx Instructions: days 1-21 15 mg bid, days 22-30: 20 mg daily (pt on day 9) hydrocodone-acetaminophen 5-325 mg tablet 1 tab PO BID Label Comments: TAKE 1 TABLET BY MOUTH TWICE A DAY FOR 28 DAYS valsartan 160 mg tablet 160 mg PO DAILY Rx Instructions: valsartan/hydrochlorothiazide 160/12.5 pantoprazole 40 mg Tablet,Delayed Release (Dr/Ec) 40 mg PO DAILY 30 Days Qty: 30 0RF Label Comments: takes at 0800 daily Referrals / Follow Up: Rogelio Colvin Chi, MD [Primary Care Provider] - Disposition Disposition (needs filled in before D/C Order can be placed): Home, Self Care Charges/Coding Visit Charges Inpatient E&M: 25796 Disch Hosp
[2023-01-11] MEDS: oxyCODONE 5 MG Tablet PO (12:12)
--- NOTE | 2023-01-11 14:10 | PHA.DC.MC ---
Pharmacy Service has performed discharge medication reconciliation and counseling for this patient. The patient was counseled on the following discharge medications and changes in medications for homegoing were reviewed. 1. ASPIRIN The Reason for Use, instructions for use, and potential side effects were reviewed for all new medications. The patient's questions regarding all of their medications were answered. The patient was able to verbally demonstrate an understanding of their discharge medications. Home Medications pantoprazole 40 mg tablet,delayed release 40 mg PO DAILY 30 days #30 tabs 12/07/22 hydrocodone-acetaminophen 5-325mg 5mg-325mg 1 tab PO BID pain 01/04/23 pregabalin 75 mg capsule 75 mg PO 4X/DAY pain 01/04/23 rivaroxaban 20 mg tablet (Xarelto) 15 mg PO BID blood thinner 01/04/23 valsartan 160 mg tablet 160 mg PO DAILY blood pressure 01/04/23 aspirin 81 mg tablet,delayed release 81 mg PO BREAKFAST #0 tabs 01/11/23 The patient's discharge medication list was reviewed for discrepancies and discrepancies were resolved.
== END 2023-01-11 13:18 | disposition home or self-care (01) | DRG 271 ==
PROVIDERS: Anesthesiology; Physician Assistant; Admitting Provider Surgery Trauma Surgery; PCP Family Medicine Geriatric Medicine; Visit Provider Surgery Trauma Surgery
DX: I82.412 Acute embolism and thrombosis of left femoral vein (principal); I87.1 Compression of vein; I82.432 Acute embolism and thrombosis of left popliteal vein; F17.220 Nicotine dependence, chewing tobacco, uncomplicated; I10 Essential (primary) hypertension; M79.662 Pain in left lower leg; Z79.01 Long term (current) use of anticoagulants; Z79.82 Long term (current) use of aspirin; Z79.899 Other long term (current) drug therapy
CPT/HCPCS: 36005; 36415; 37187; 37238; 37239; 37252; 37253; 75820; 76937; 80048; 81001; 82550; 85025; 85027; 85347; 85610; 85730; 93005; 96372; 99152; 99153; 99283; C1725; C1753; C1769; C1894; J7040; Q9967; A4216; C1757; C1876; J2405

== ENCOUNTER 2023-01-11 13:53 | Emergency (ER) | payer OTHER, SELFPAY ==
[2023-01-11] VITALS (16 sets, daily range): BP systolic 130–138; BP diastolic 79–98; PULSE 69–76; RESP 11–28; TEMP 35.5; O2SAT 97–100; BMI 29.5
--- NOTE | 2023-01-11 14:00 | EKG12_ITS ---
Test Reason : SYNCOPE Blood Pressure : / mmHG Vent. Rate : 052 BPM Atrial Rate : 052 BPM P-R Int : 154 ms QRS Dur : 078 ms QT Int : 402 ms P-R-T Axes : 034 008 005 degrees QTc Int : 373 ms Sinus bradycardia Otherwise normal ECG Confirmed by MYA TRISTAN, EFRAIN ([id number]), non linear editor SARAH GOLDMAN ([id number]) on 01/15/2023 11:08:12 AM Referred By: Confirmed By:EFRAIN ROQUE MD
--- NOTE | 2023-01-11 14:09 | CT_ITS ---
STUDY: CTA CHEST REASON FOR EXAM: Male, 47 years old. Syncope, DVT/thrombectomy RADIATION DOSAGE (If Supplied By Facility): CTDIvol = ( 15.73 ) mGy, DLP = ( 2056.75 ) mGycm TECHNIQUE: The examination was performed with the intravenous administration of IV 100mL Isovue-370. Post-processing of the angiographic images was performed, with multiplanar reformation and 3D reconstruction. Individualized dose optimization techniques were used for this CT. COMPARISON: None. FINDINGS: There are multiple small emboli in the branches of the right and left upper lobe pulmonary arteries. Small intraluminal filling defects are also seen within branches of the right and left lower lobe pulmonary arterial branches. Normal thoracic aorta and visualized great vessels. There is no demonstrated aortic dissection. Normal heart and pericardium. Normal mediastinum. Normal hilar regions. Normal visualized trachea and bronchi. The lungs are well expanded. Normal pulmonary parenchyma. Normal pleura. Normal chest wall structures. There are degenerative changes of thoracic spine. Normal visualized upper abdomen. CT/CTA Chest W/WO Contrast IMPRESSION: Multiple pulmonary emboli seen in branches of the bilateral upper and lower pulmonary arterial branches. Electronically Signed: Martinez Russell MD at 15:06 EST ,
--- NOTE | 2023-01-11 14:09 | EX.ED.DYSGE1 ---
HPI History of Present Illness Chief Complaint: Syncope Informant: patient Narrative Narrative: Patient had a syncopal episode after being discharged from the inpatient lerma here at the hospital and so was brought here to the emergency department. Patient was admitted for extensive DVT, he had thrombectomy yesterday, and stents placed in his iliacs. He has been doing well mostly in bed he states, for about 2 days. He has no other medical issues. He states they got him into a wheelchair and discharged him, he was taking care of some things because he needs an MRI and wants to make sure the stents are compatible, and while he was talking with registration, he started feeling very lightheaded, got sweaty, nauseated, and passed out while in the wheelchair without falling out or hurting himself. No other prodromal symptoms; no chest pain, headache, dyspnea. [facility]SH [facility] Medical History Hypertension Hypertension Home Medications pantoprazole 40 mg tablet,delayed release 40 mg PO DAILY 30 days #30 tabs 12/07/22 [Rx Last Taken Unknown] hydrocodone-acetaminophen 5-325mg 5mg-325mg 1 tab PO BID pain 01/04/23 [History Last Taken Unknown] pregabalin 75 mg capsule 75 mg PO 4X/DAY pain 01/04/23 [History Last Taken Unknown] rivaroxaban 20 mg tablet (Xarelto) 15 mg PO BID blood thinner 01/04/23 [History Last Taken Unknown] valsartan 160 mg tablet 160 mg PO DAILY blood pressure 01/04/23 [History Last Taken Unknown] aspirin 81 mg tablet,delayed release 81 mg PO BREAKFAST #0 tabs 01/11/23 [Rx Last Taken Unknown] Allergy/AdvReac Type Severity Reaction Status Date / Time No Known Allergies Allergy Verified 01/04/23 14:37 Family History (Updated 01/09/23 @ 18:15 by Chely Pollock) Father CVA (cerebral vascular accident) Father Heart disease Surgical History History of femoral hernia repair Social History Smoking Status: Never smoker Smokeless tobacco user: chewing tobacco how long ago did patient quit smokin can every 4-5 days alcohol intake: never ROS ROS ED Constitutional Constitutional ED: Reports sweats; Denies chills or fever(s) Eyes Eyes: Denies change in vision or diplopia ENT ENT ED: Denies rhinorrhea or sore throat Cardiovascular Cardiovascular: Reports syncope; Denies chest pain or palpitations Respiratory/Chest Respiratory/Chest: Denies cough or dyspnea Gastrointestinal Gastrointestinal: Reports nausea; Denies abdominal pain, diarrhea or vomiting Genitourinary Genitourinary ED: Denies dysuria or hematuria Musculoskeletal Musculoskeletal: Denies back pain, extremity pain or neck pain Integumentary Denies abscess or rash Neurologic Neurologic: Denies headache(s), paresthesias or weakness Psychiatric Psychiatric: Denies anxiety or suicidal thoughts EXAM Physical Exam Const Vital Signs: 01/11/23 14:00 01/11/23 14:07 01/11/23 14:26 Temperature 95.9 F L Temperature Source Temporal Pulse Rate 70 71 Respiratory Rate 14 17 Respiratory Effort Normal Non-Labored Respiratory Pattern Normal Blood Pressure 130/79 H Blood Pressure Mean 96 Pulse Ox 98 98 Oxygen Delivery Method Room Air 01/11/23 14:41 01/11/23 14:42 01/11/23 14:46 Temperature Temperature Source Pulse Rate 76 70 73 Respiratory Rate 15 28 H 18 Respiratory Effort Respiratory Pattern Blood Pressure 138/98 H 134/91 H Blood Pressure Mean 112 104 Pulse Ox 100 99 Oxygen Delivery Method 01/11/23 14:50 01/11/23 15:00 01/11/23 15:01 Temperature Temperature Source Pulse Rate 75 69 71 Respiratory Rate 14 19 H 15 Respiratory Effort Respiratory Pattern Blood Pressure 130/93 H Blood Pressure Mean 105 Pulse Ox 100 100 Oxygen Delivery Method 01/11/23 15:10 01/11/23 15:18 01/11/23 15:20 Temperature Temperature Source Pulse Rate 72 Respiratory Rate 11 L Respiratory Effort Respiratory Pattern Blood Pressure 133/89 H Blood Pressure Mean 103 Pulse Ox 99 97 100 Oxygen Delivery Method 01/11/23 15:30 01/11/23 15:31 01/11/23 15:40 Temperature Temperature Source Pulse Rate Respiratory Rate Respiratory Effort Respiratory Pattern Blood Pressure 138/94 H Blood Pressure Mean 107 Pulse Ox 100 100 97 Oxygen Delivery Method Positive well nourished and well developed Constitutional Narrative: Alert, conversive, initially somewhat ashen General Appearance ED: well developed, diaphoretic and NAD HEENT Reports moist mucous membranes normocephalic and atraumatic Eyes PERRL and EOMs intact bilaterally Neck full ROM and supple Resp normal respiratory effort and clear to auscultation bilaterally Cardio regular rate, regular rhythm, no murmurs and peripheral pulses 2+ throughout Rate: bradycardia; Negative for tachycardic GI non-tender and non-distended Auscultation: normoactive bowel sounds Palpation: soft Back/Spine no CVA tenderness General Back: other FROM Extremity normal to inspection General Extremety ED: Negative for edema, pulses abnormal or tenderness General Extremity: Negative for edema or pulses abnormal Neuro oriented x3, CN's II-XII intact bilaterally and no sensory deficits noted Sensorium / Orientation: awake and alert Motor Exam: strength 5/5 throughout Skin no rashes or lesions noted and no wounds MDM MDM MDM Narrative Medical decision making narrative: I discussed with Dr. Mccall. He agrees that this is most likely vasovagal, and as in addition that during the procedure, it was noted that he had collapse of his IVC and much of the venous system there prior to thrombectomy, which returned significant tone to these vessels, and this could be related to his episode as well due to blood flow. I performed CT angiography in order to evaluate for the possibility of PE, and Dr. Mccall advised also performing venous phase CT of the abdomen/pelvis to evaluate the patency of the stents and to rule out retroperitoneal hemorrhage. I reviewed the imaging, and the results according to the radiologist, I agree with them. He does have several PE. However the patient is already placed on anticoagulants, his vital signs are returned to normal and he is not dyspneic or hypoxic, so although this is documented I still think he is stable for discharge home given that his EKG is normal, his troponin is negative, he has no radiographic signs of right heart strain, and the CT abdomen/pelvis shows no endovascular leak with regards to the stents and he has good clinical perfusion to his feet. We did get the patient out of bed, slowly and he was able to walk and felt fine, his vital signs are normal heart rate in the 70s now, stable for discharge. Given return instructions. Lab Data Attestation: I reviewed the patient's lab results. Labs: Laboratory Results - last 24 hr 01/11/23 01/11/23 01/11/23 13:58 14:19 14:19 WBC 10.8 RBC 4.73 Hgb 14.3 Hct 43.0 MCV 90.9 MCH 30.2 MCHC 33.3 RDW Std Deviation 42.2 RDW Coeff of Alejo 12.7 Plt Count 337 MPV 9.1 Immature Gran % (Auto) 0.300 Neut % (Auto) 61.4 Lymph % (Auto) 26.5 [place] % (Auto) 9.4 Eos % (Auto) 1.8 Baso % (Auto) 0.6 Absolute Neuts (auto) 6.7 Absolute Lymphs (auto) 2.87 Nucleated RBC % 0 Sodium 139 Potassium 3.4 L Chloride 103 Carbon Dioxide 31.0 Anion Gap 5 BUN 18 Creatinine 1.14 Estim Creat Clear Calc 91.13 Est GFR (MDRD) Af Amer 88 Est GFR (MDRD) Non-Af 72 BUN/Creatinine Ratio 15.8 Glucose 134 H Calcium 8.8 Troponin I High Sens 7 POC Glucose 150 H Radiography Diagnostic Testing: Clinical Impression(s) from Imaging Studies Chest CTA 01/11/23 14:09 IMPRESSION: Multiple pulmonary emboli seen in branches of the bilateral upper and lower pulmonary arterial branches. Electronically Signed: Martinez Russell MD at 15:06 EST , Abdomen/Pelvis CT 01/11/23 14:17 IMPRESSION: Status post endoluminal stent grafting of the distal portion of the inferior vena cava and the common iliac veins bilaterally. No evidence of endovascular leak. Electronically Signed: Martinez Russell MD at 15:03 EST , Discharge Plan Triage Chief Complaint: Syncope ED Provider: Dimas Gill Dx/Rx/DC Orders Clinical Impression: Vasovagal syncope, Pulmonary embolism Instructions: Embolism Pulmonary Dc, ED Fainting, Vagal Reaction Prescriptions: No Action pregabalin 75 mg capsule 75 mg PO 4X/DAY Label Comments: pt takes at 0800, 1200, 1600, 2000 Xarelto 20 mg tablet 15 mg PO BID Rx Instructions: days 1-21 15 mg bid, days 22-30: 20 mg daily (pt on day 9) hydrocodone-acetaminophen 5-325 mg tablet 1 tab PO BID Label Comments: TAKE 1 TABLET BY MOUTH TWICE A DAY FOR 28 DAYS valsartan 160 mg tablet 160 mg PO DAILY Rx Instructions: valsartan/hydrochlorothiazide 160/12.5 pantoprazole 40 mg Tablet,Delayed Release (Dr/Ec) 40 mg PO DAILY 30 Days Qty: 30 0RF Label Comments: takes at 0800 daily aspirin 81 mg Tablet,Delayed Release (Dr/Ec) 81 mg PO BREAKFAST Qty: 0 0RF Primary Care Provider: Rogelio Colvin Chi Referrals: Bryn Mccall MD [Med Staff - Active Staff] - Keep Darlene appointment Rogelio Colvin Chi, MD [Primary Care Provider] - Disposition Disposition: Home, Self Care
[2023-01-11] MEDS: 0.9% Normal Saline 1,000 ML 999 ML IV (14:15)
--- NOTE | 2023-01-11 14:15 | CM.ED ---
Social Work Note Referral Source: rapid response Referral Reason: Emotional Support SW met with patient's significant other, February, and introduced herself and role as [facility] Under Water Assistant. Patient's significant other reported the patient was in for surgery yesterday and was in the process of being discharged home today when he started to look [place] and experienced LOC. SW provided patient's significant other with emotional support. SW informed patient's HCPOA is Meir Snyder, contact information on patient's chart. Patient's significant other contacted Meir while SW was present to update him. No other needs at this time, SW remains available if needs arise. Lupe West DYNAMOMETER MECHANIC, SANDI
--- NOTE | 2023-01-11 14:17 | CT_ITS ---
STUDY: CT ABDOMEN AND PELVIS WITH CONTRAST REASON FOR EXAM: Male, 47 years old. Syncope, recent IVC and bilateral iliac stents -- venous phase RADIATION DOSAGE (If Supplied By Facility): CTDIvol = ( 15.73 ) mGy, DLP = ( 2056.75 ) mGycm TECHNIQUE: Transaxial images were obtained from the dome of the diaphragm to the symphysis pubis without oral contrast. IV 100mL Isovue-[id number] was administered. Sagittal and coronal images were reconstructed. Individualized dose optimization techniques were used for this CT. COMPARISON: None. FINDINGS: The visualized lung bases are unremarkable. The visualized portions of the heart are within normal limits. Normal liver. Normal gallbladder and extrahepatic biliary system. Normal spleen. Normal pancreas. Normal bilateral adrenal glands. Normal right kidney. Normal left kidney. Normal visualized stomach. Normal small intestine. Normal colon. The appendix is visualized and appears normal. Normal abdominal aorta. Endoluminal vascular stent graft is seen in the distal inferior vena cava with extension into the left and right common iliac veins. There is no evidence of a retroperitoneal hematoma. No evidence of endovascular leak. Normal retroperitoneum. Normal urinary bladder. There is a small umbilical hernia containing fat. This space narrowing and disc degeneration with subchondral sclerosis at the L4-L5 level. CT/Abdomen/Pelvis W IV Cont ONLY IMPRESSION: Status post endoluminal stent grafting of the distal portion of the inferior vena cava and the common iliac veins bilaterally. No evidence of endovascular leak. Electronically Signed: Martinez Russell MD at 15:03 EST ,
[2023-01-11 14:32] LABS: Absolute Lymphocyte Count 2.87 X10^3/uL (0.83-4.51); Absolute Neutrophil Count 6.7 X10^3/uL (2.0-7.7); Basophil# 0.06 X10^3/uL; Basophil% 0.6 % (0-1); Eosinophil# 0.19 X10^3/uL; Eosinophils% 1.8 % (0-5); Hemoglobin 14.3 g/dL (13.0-16.5); Lymphocyte # 2.87 X10^3/ul (0.83-4.51); Lymphocyte % 26.5 % (19-41); Mean Corp Hgb Conc 33.3 g/dL (32-36); Mean Corpuscular Hgb 30.2 pg (27.0-32.0); Mean Corpuscular Volume 90.9 fL (80-94); Mean Platelet Vol. 9.1 fl (6.2-12.0); Monocyte# 1.02 X10^3/uL; Monocyte% 9.4 % (0-10); NRBC Flagged by Analyzer 0 % (0-5); Neutrophil # 6.67 X10^3/uL (2.7-7.7); Neutrophil % 61.4 % (47-70); Platelet Count 337 K/mm3 (150-450); RBC Distribution Width CV 12.7 % (11.6-14.6); RBC Distribution Width SD 42.2 fl (35.1-43.9); Red Blood Count 4.73 M/mm3 (4.6-6.2); White Blood Count 10.8 K/mm3 (4.4-11.0)
[2023-01-11 14:49] LABS: Anion Gap 5 (5-15); BUN 18 mg/dL (7-18); BUN/Creat Ratio 15.8 RATIO (10-20); Calcium,Total 8.8 mg/dL (8.5-10.1); Chloride 103 mmol/L (98-107); Creatinine, Serum 1.14 mg/dL (0.70-1.30); EST Glomerular Filtration Rate 72 mL/min (>60); Est Glom Filt Rate - Afr Amer 88 mL/min (>60); Estimated Creatinine Clearance 91.13 ml/min; Glucose 134 mg/dL (74-106); Potassium 3.4 mmol/L (3.5-5.1); Sodium Level 139 mmol/L (136-145); Troponin-I HS 7 pg/mL (3.0-78.0)
[2023-01-11 16:11] LABS: Bedside Glucose 150 mg/dL (74-106)
== END 2023-01-11 17:26 | disposition home or self-care (01) ==
PROVIDERS: Emergency Provider Emergency Medicine; PCP Family Medicine Geriatric Medicine; Visit Provider Emergency Medicine
DX: R55 Syncope and collapse (principal); I26.99 Other pulmonary embolism without acute cor pulmonale; F17.220 Nicotine dependence, chewing tobacco, uncomplicated
CPT/HCPCS: 71275; 74177; 80048; 82962; 84484; 85025; 93005; 99284; J7030; Q9967

== ENCOUNTER → 2023-01-17 | Outpatient (CLI) | payer OTHER, SELFPAY ==
--- NOTE | 2023-01-17 06:30 | MRI_ITS ---
STUDY: MRI LUMBAR SPINE WITHOUT CONTRAST REASON FOR EXAM: Male, 47 years old. acute pain/injury TECHNIQUE: Standardized fat and water weighted pulse sequences were obtained in the sagittal and axial planes. COMPARISON: Lumbar spine x-rays from 03/04/2023 FINDINGS: T12-L1: Normal endplates. Normal disc height, hydration and morphology. Normal bilateral facet joints. Normal central canal and bilateral lateral recesses. Normal bilateral intervertebral neural foramina. Normal lumbar lordosis. There is no substantial scoliosis. Normal conus medullaris that terminates at T12-L1 L1-2: Normal endplates. Normal disc height, hydration and morphology. Normal bilateral facet joints. Normal central canal and bilateral lateral recesses. Normal bilateral intervertebral neural foramina. L2-3: Degenerative endplate changes.. Narrowed disc space with desiccation of the disc and minor annular bulge.. Normal bilateral facet joints. Normal central canal and bilateral lateral recesses. Normal bilateral intervertebral neural foramina. L3-4: Normal endplates. Normal disc height, hydration and small bilateral foraminal disc protrusions. Mild facet arthropathy slightly more pronounced on the right.. Normal central canal and bilateral lateral recesses. Moderate right neural foraminal stenosis and mild narrowing of the left L4-5: Narrowed disc space and degenerative endplate changes. Desiccation and minor bulging disc osteophyte complex. Bilateral facet arthropathy more pronounced on the right. Normal central canal and bilateral lateral recesses. Moderate left neural foraminal stenosis and more severe narrowing on the right L5-S1: Normal endplates. Normal disc height, hydration and morphology. Bilateral facet arthropathy. Normal central canal and bilateral lateral recesses. Normal bilateral intervertebral neural foramina. Normal visualized sacral ala. Normal visualized paraspinous soft tissue structures. No significant change since prior exam given inherent differences in imaging modalities MRI/Spine Lumbar (Routine) IMPRESSION: No evidence for acute fracture or other significant bony pathology Spinal stenosis at L3-4 and more severe at L4-5 worse on the right secondary to disc disease and bony hypertrophy Electronically Signed: Oscar Carrillo MD at 19:05 EST ,
== END | disposition home or self-care (01) ==
PROVIDERS: PCP Family Medicine Geriatric Medicine; Referring Provider Orthopaedic Surgery; Visit Provider Orthopaedic Surgery
DX: M51.26 Other intervertebral disc displacement, lumbar region (principal); S39.92XA Unspecified injury of lower back, initial encounter
CPT/HCPCS: 72148

== ENCOUNTER → 2023-03-06 | Outpatient (CLI) | payer OTHER, SELFPAY | END | disposition home or self-care (01) | LOC: PSN 08:55 | PROVIDERS: PCP Family Medicine Geriatric Medicine; Referring Provider Family Medicine Geriatric Medicine; Visit Provider Family Medicine Geriatric Medicine | DX: R68.83 Chills (without fever) (principal) | CPT/HCPCS: 87804; 87807 ==

== ENCOUNTER → 2023-03-21 | Outpatient (CLI) | payer OTHER, SELFPAY ==
--- NOTE | 2023-03-21 08:05 | AAVD_ITS ---
Reason For Study: S/P Milton iliac vein stents Inferior Vena Cava Proximal inferior vena cava measures 1.21 x 1.47 cm. in the cross-sectional axis. Proximal inferior vena cava measures 1.1 cm. in the longitudinal axis. Mid inferior vena cava measures 1.45 x 1.34 cm. in the cross-sectional axis. Mid inferior vena cava measures 1.5 cm. in the longitudinal axis. Distal inferior vena cava measures 1.38 x 1.22 cm. in the cross-sectional axis. Distal inferior vena cava measures 1.4 cm. in the longitudinal axis. The inferior vena cava has spontaneous, phasic flow throughout. Left Common Iliac Vein Left common iliac vein measures 1.6 x 1.58 cm. in the cross-sectional axis. Left common iliac vein measures 1.6 cm. in the longitudinal axis. The left common iliac vein has spontaneous, phasic flow throughout. Right Common Iliac Vein Right common iliac vein measures 1.34 x 1.36 cm. in the cross-sectional axis. Right common iliac vein measures 1.3 cm. in the longitudinal axis. The right common iliac vein has spontaneous, phasic flow throughout. Procedure Aorta IVC Iliac vasculature or bypass grafts [id number]. The exam was diagnostic. Exam performed in department. VL/Abd Aortic/IVC Duplex scan Interpretation Summary Patent inferior vena cava and bilateral ilaic vein stents with normal flow chucho jacqueline. Ordering Physician: Teena Reynolds Performed By: Pipe Castro RVT
--- NOTE | 2023-03-21 08:05 | VDLE_ITS ---
Reason For Study: pain, S/P thrombectomy RIGHT LEFT GSV is normal. CFV is compressible, spontaneous, phasic, CFV is compressible, spontaneous, phasic, competent, and demonstrates normal competent and demonstrates normal augmentation. augmentation. Acute deep vein thrombosis is noted in the FV is compressible, spontaneous, phasic, FV. It is dilated and NONCOMPRESSIBLE. competent and demonstrates normal Acute deep vein thrombosis is noted in the augmentation. POP V. It is dilated and NONCOMPRESSIBLE. POP V is compressible, spontaneous, phasic, Acute deep vein thrombosis is noted in the competent and demonstrates normal T/P Trunk. It is dilated and NONCOMPRESSIBLE. augmentation. Acute deep vein thrombosis is noted in the T/P Trunk is compressible. PTV. It is dilated and NONCOMPRESSIBLE. PTV is compressible. Acute deep vein thrombosis is noted in the RT PerV is compressible. Per V. It is dilated and NONCOMPRESSIBLE. Procedure Acute deep vein thrombosis is noted in the This is a venous duplex using B-mode, color Gastroc V. It is dilated and NONCOMPRESSIBLE. flow and spectral Doppler. Acute superficial vein thrombosis is noted in Exam performed in department. the SSV. It is dilated and NONCOMPRESSIBLE. The exam was diagnostic. GSV is normal. A preliminary report was called and/or faxed to Dr. Mccall. VL/Venous Duplex US - Milton Extrem Interpretation Summary Acute deep vein thrombosis is noted in the left femoral vein, popliteal vein, t ibioperoneal trunk vein, posterior tibial vein, peroneal vein, gastrocnemius vein. Acute superficial vein thrombosis noted in the left small saphenous vein. Deep veins of the right lower extremity are patent and compressible segmentally . There is no evidence of right lower extremity deep vein thrombosis. The right great sapheno us vein appears patent and compressible segmentally. Ordering Physician: Teena Reynolds Performed By: Pipe Castro RVT
== END | disposition home or self-care (01) ==
LOC: CVS 08:01
PROVIDERS: PCP Family Medicine Geriatric Medicine; Referring Provider Physician Assistant; Visit Provider Physician Assistant
DX: Z86.718 Personal history of other venous thrombosis and embolism (principal); I82.409 Acute embolism and thrombosis of unspecified deep veins of unspecified lower extremity
CPT/HCPCS: 93970; 93978

== ENCOUNTER → 2023-04-04 | Outpatient (CLI) | payer OTHER, SELFPAY ==
--- NOTE | 2023-04-04 09:51 | VDLE_ITS ---
Reason For Study: Left Leg DVT RIGHT LEFT CFV is compressible, spontaneous, phasic, CFV is patent and compressible. competent and demonstrates normal Acute deep vein thrombosis is noted in the augmentation. FV. It is dilated and NONCOMPRESSIBLE. Procedure Thrombus appears to begin 4-5 cm distal to This is a venous duplex using B-mode, color inguinal canal and is present in 1 of 2 flow and spectral Doppler. duplicating veins. Exam performed in department. Acute deep vein thrombosis is noted in the The exam was diagnostic. POP V. It is dilated and PARTIALLY A preliminary report was called and/or faxed COMPRESSIBLE. to [facility]. Acute deep vein thrombosis is noted in the T/P Trunk. It is dilated and NONCOMPRESSIBLE. Acute deep vein thrombosis is noted in the Gastrocnemius vein. It is dilated and NONCOMPRESSIBLE. Acute deep vein thrombosis is noted in the PTV. It is dilated and NONCOMPRESSIBLE. LT PerV is compressible. VL/Venous Duplex US, Unilateral Interpretation Summary Acute deep vein thrombosis is noted in the left femoral vein, popliteal vein, t ibioperoneal trunk vein, gastrocnemius vein, posterior tibial vein. Ordering Physician: Bryn Mccall Referring Physician: Rogelio Colvin Chi Performed By: [employer], RVT
== END | disposition home or self-care (01) ==
LOC: CVS 09:44
PROVIDERS: PCP Family Medicine Geriatric Medicine; Referring Provider Surgery Trauma Surgery; Visit Provider Surgery Trauma Surgery
DX: I82.409 Acute embolism and thrombosis of unspecified deep veins of unspecified lower extremity (principal); M79.605 Pain in left leg
CPT/HCPCS: 93971

== ENCOUNTER 2023-04-06 21:23 | Emergency (ER) | payer OTHER, SELFPAY ==
[2023-04-06 21:23] VITALS: BP 143/112; PULSE 86; RESP 16; TEMP 36.6; O2SAT 98
[2023-04-06 21:31] VITALS: BMI 32.3
--- NOTE | 2023-04-06 21:33 | CT_ITS ---
EXAM: CT HEAD WITHOUT INTRAVENOUS CONTRAST CLINICAL INDICATION: trauma, loredo/nausea, anticoagulated TECHNIQUE: Multiple axial images were obtained of the head without intravenous contrast. This CT exam was performed using one or more of the following dose reduction techniques: automated exposure control, adjustment of the mA and/or kV according to patient size, and/or use of iterative reconstruction technique. RADIATION DOSE: Total DLP: 846.73 mGy-cm. COMPARISON: No relevant prior studies available. FINDINGS: BRAIN AND EXTRA-AXIAL SPACES: Unremarkable. No intra- or extra-axial hemorrhage. No evidence of acute infarct. No intracranial mass or mass effect. There is preservation of the lockett/white matter interface. Posterior fossa structures are unremarkable. Ventricles are appropriate for age. No hydrocephalus. Basal cisterns are patent. BONES/JOINTS: Unremarkable. No discrete lytic or blastic abnormalities. No linear or depressed skull fracture. SOFT TISSUES: Unremarkable. No scalp hematoma. SINUSES: Unremarkable as visualized. Clear. MASTOID AIR CELLS: Unremarkable. Clear. ORBITS: Visualized globes, extraocular muscles, optic nerves and retrobulbar fat appear unremarkable. CT/Brain/Head without Contrast IMPRESSION: Negative head/brain CT without intravenous contrast. No skull fracture or acute intracranial hemorrhage. Electronically Signed: Shaun Buckner MD at 23:26 EDT ,
--- NOTE | 2023-04-06 21:33 | EX.ED.GENINJ ---
HPI History of Present Illness Chief Complaint: Head Injury Informant: patient and spouse/S.O. Narrative Narrative: Patient is putting together a new backhoe, and he turned around and accidentally ran his head into it, hitting the left side of his head/temporal area, it dazed him severely collapsed to the ground catching himself on a chair without falling and injuring anything else, he has some transient blurry vision that is better now, he has a headache and nausea but no vomiting. No loss of consciousness. No other injury. No tingling, weakness, other acute symptoms. He is anticoagulated on Lovenox due to having a lower extremity DVT. [facility] Medical History (Updated 04/06/23 @ 23:[address] Dimas Gill MD) DDD (degenerative disc disease), lumbar DVT (deep venous thrombosis) HNP (herniated nucleus pulposus), lumbar Hypertension Hypertension RSD lower limb Home Medications pantoprazole 40 mg tablet,delayed release 40 mg PO DAILY 30 days #30 tabs 12/07/22 [Rx Last Taken Unknown] hydrocodone-acetaminophen 5-325mg 5mg-325mg 1 tab PO BID pain 01/04/23 [History Last Taken Unknown] pregabalin 75 mg capsule 75 mg PO 4X/DAY pain 01/04/23 [History Last Taken Unknown] aspirin 81 mg tablet,delayed release 325 mg PO BREAKFAST 01/17/23 [History Last Taken Unknown] paroxetine HCl 20 mg tablet tablet PO 02/13/23 [History Last Taken Unknown] valsartan 160 mg-hydrochlorothiazide 12.5 mg tablet tablet PO 02/13/23 [History Last Taken Unknown] enoxaparin 100 mg/mL subcutaneous syringe (Lovenox) 100 mg subcut Q12H 14 days #28 mL 04/04/23 [Rx Last Taken Unknown] ondansetron 4 mg disintegrating tablet 8 mg PO Q8H PRN PRN Nausea #12 tabs 04/06/23 [Rx Last Taken Unknown] Allergy/AdvReac Type Severity Reaction Status Date / Time No Known Allergies Allergy Verified 04/06/23 21:25 Family History Father CVA (cerebral vascular accident) Father Heart disease Surgical History History of femoral hernia repair Social History Smoking Status: Never smoker Smokeless tobacco user: chewing tobacco how long ago did patient quit smokin can every 4-5 days alcohol intake: never ROS ROS ED Constitutional Constitutional ED: Denies chills or fever(s) Eyes Eyes: Reports blurry vision bilateral (Transient, resolved); Denies change in vision or diplopia ENT ENT ED: Denies ear pain, epistaxis, facial pain or rhinorrhea Cardiovascular Cardiovascular: Denies chest pain or palpitations Respiratory/Chest Respiratory/Chest: Denies cough or dyspnea Gastrointestinal Gastrointestinal: Reports nausea; Denies abdominal pain, diarrhea, melena or vomiting Genitourinary Genitourinary ED: Denies dysuria or hematuria Musculoskeletal Musculoskeletal: Denies back pain, extremity pain or neck pain Integumentary Denies abscess, Abrasions, laceration or rash Neurologic Neurologic: Reports headache(s); Denies confusion, paresthesias or weakness EXAM Physical Exam Const Vital Signs: 04/06/23 21:23 04/06/23 21:32 Temperature 98 F Temperature Source Temporal Pulse Rate 86 Respiratory Rate 16 Blood Pressure 143/112 H Blood Pressure Mean 122 Pulse Ox 98 Oxygen Delivery Method Room Air Room Air Positive well nourished and well developed General Appearance ED: well developed and NAD HEENT Reports TM's clear and nasal mucous membranes and turbinates normal HEENT Narrative: Tender left buddhism and temporal scalp, without crepitance, hematoma, or depression atraumatic Face and Sinus: facial tenderness Tympanic Membrane ED: Yes TM's clear Eyes PERRL and EOMs intact bilaterally Visual Acuity: other Other Details: no entrapment or pain with extraocular movements Neck full ROM and supple General: Negative for tenderness Chest Wall inspection of chest normal and palpation of chest normal Chest: symmetrical chest wall rise; Negative for crepitus or tenderness Resp normal respiratory effort and clear to auscultation bilaterally Percussion: other equal BS bilat Cardio no murmurs Rate: regular rate Rhythm: regular rhythm GI normal to inspection, nondistended, normoactive bowel sounds, soft to palpation and non-tender Back/Spine normal ROM Cervical Spine: Negative for cervical spine tenderness Thoracic Spine / Upper Back: Negative for thoracic spinal tenderness Lumbar Spine / Lower Back: Negative for lumbar spinal tenderness Extremity normal to inspection and full ROM General Extremety ED: Negative for tenderness Neuro oriented x3, CN's II-XII intact bilaterally, moves all extremities, no focal motor deficits and no sensory deficits noted Yanet Coma Scale: document GCS findings Spontaneous Obeys Commands Oriented 15 Sensorium / Orientation: awake and alert Psych mental status grossly normal and thought process normal Skin no wounds Lesions: no lesions Rashes: no rashes MDM MDM MDM Narrative Medical decision making narrative: Patient was seen quickly after arrival and sent directly to CT after getting an oral Zofran which helped his nausea. I reviewed the images and the radiologist report and I agree with it, basically negative for any acute skull fracture or intracranial hemorrhage. Patient was feeling much better on reevaluation, he was offered Tylenol but declined, he said he had aspirin which I advised him not to take since he is on an anticoagulant. He still declined Tylenol but was okay with a prescription for Zofran as needed, given appropriate discharge instructions for concussion. Radiography Diagnostic Testing: Clinical Impression(s) from Imaging Studies Brain CT 04/06/23 21:33 IMPRESSION: Negative head/brain CT without intravenous contrast. No skull fracture or acute intracranial hemorrhage. Electronically Signed: Shaun Buckner MD at 23:26 EDT , Discharge Plan Triage Chief Complaint: Head Injury ED Provider: Dimas Gill Dx/Rx/DC Orders Clinical Impression: Closed head injury with concussion Instructions: ED Concussion Prescriptions: New ondansetron [ondansetron] 4 mg tablet,disintegrating 8 mg PO Q8H PRN PRN (Reason: Nausea) Qty: 12 0RF No Action pregabalin 75 mg capsule 75 mg PO 4X/DAY Label Comments: pt takes at 0800, 1200, 1600, 2000 hydrocodone-acetaminophen 5-325 mg tablet 1 tab PO BID Label Comments: TAKE 1 TABLET BY MOUTH TWICE A DAY FOR 28 DAYS aspirin 81 mg tablet,delayed release (DR/EC) 325 mg PO BREAKFAST paroxetine HCl 20 mg tablet PO valsartan-hydrochlorothiazide 160-12.5 mg tablet PO pantoprazole 40 mg Tablet,Delayed Release (Dr/Ec) 40 mg PO DAILY 30 Days Qty: 30 0RF Label Comments: takes at 0800 daily enoxaparin [Lovenox] 100 mg/mL syringe 100 mg subcut Q12H 14 Days Qty: 28 1RF Primary Care Provider: Rogelio Colvin Chi Referrals: Rogelio Colvin Chi, MD [Primary Care Provider] - 1 Week if not improving Disposition Disposition: Home, Self Care
[2023-04-06] MEDS: Ondansetron ODT 4 MG Tablet 8 MG PO (21:37)
== END 2023-04-06 23:52 | disposition home or self-care (01) ==
PROVIDERS: Emergency Provider Emergency Medicine; PCP Family Medicine Geriatric Medicine; Visit Provider Emergency Medicine
DX: S06.0X0A Concussion without loss of consciousness, initial encounter (principal); F17.220 Nicotine dependence, chewing tobacco, uncomplicated; Z86.718 Personal history of other venous thrombosis and embolism; X58.XXXA Exposure to other specified factors, initial encounter
CPT/HCPCS: 70450; 99282

== ENCOUNTER 2023-04-17 08:22 | Day surgery (SDC) | payer OTHER, SELFPAY ==
[2023-04-17 08:02] VITALS: BMI 29.7
[2023-04-17 08:37] LABS: Hematocrit 43.4 % (40-54); Hemoglobin 14.4 g/dL (13.0-16.5); Mean Corp Hgb Conc 33.2 g/dL (32-36); Mean Corpuscular Hgb 29.8 pg (27.0-32.0); Mean Corpuscular Volume 89.9 fL (80-94); Mean Platelet Vol. 9.1 fl (6.2-12.0); Platelet Count 237 K/mm3 (150-450); RBC Distribution Width CV 12.3 % (11.6-14.6); Red Blood Count 4.83 M/mm3 (4.6-6.2); White Blood Count 4.1 K/mm3 (4.4-11.0)
[2023-04-17 08:57] LABS: Anion Gap 3 (5-15); BUN 17 mg/dL (7-18); BUN/Creat Ratio 17.3 RATIO (10-20); Calcium,Total 8.7 mg/dL (8.5-10.1); Chloride 108 mmol/L (98-107); Creatinine, Serum 0.98 mg/dL (0.70-1.30); EST Glomerular Filtration Rate 86 mL/min (>60); Est Glom Filt Rate - Afr Amer 104 mL/min (>60); Estimated Creatinine Clearance 106.01 ml/min; Glucose 101 mg/dL (74-106); Sodium Level 139 mmol/L (136-145)
--- NOTE | 2023-04-17 12:09 | PCM.OPRPT ---
Report of Operation Date of Procedure: 04/17/23 Pre-Operative Diagnosis: recurrent DVT Post-Operative Diagnosis: same Surgery/Procedure Performed:: Venogram IVC IVUS IVC, bilateral common/external iliac veins Description of Surgical Findings:: Patent stents, no stenosis or compression Surgeon: Bryn Mccall Type of Anesthesia: Local and Sedation,Conscious Estimated Blood Loss (mL): 2 Description of Procedure: HPI: Patient is a 47-year-old male with recurrent deep venous thrombosis of the left lower extremity. He underwent thrombectomy and iliac vein stenting approximately 3 months ago and initially had been doing well. Approximately 2 to 3 weeks ago he developed new left leg pain and swelling which were similar to his DVT presentation. A duplex at the time revealed what appeared to be patent stents and patent common femoral vein and profunda vein with recurrent thrombus in the femoral vein and popliteal vein. It was unclear if this thrombus had occurred due to impeded outflow from the stent issues that were not detected on ultrasound so he is taken now for venogram with possible invention. Description of procedure: Upon obtaining form consent and verification correct patient procedure and site the patient was taken to the Upper And Bottom Lacer Hand where he was positioned prepped and draped in usual sterile fashion. Time was then performed and conscious sedation ministered with Versed and fentanyl. Skin was anesthetized over the left femoral vein with 1% lidocaine and the vessel accessed in retrograde fashion with a micropuncture needle and wire under ultrasound guidance. This then exchanged out for micropuncture sheath through which injection ilio caval venogram was performed which revealed brisk contrast transit and what appeared to be patent stents. The starter J-wire was then advanced through the micropuncture sheath and the micropuncture sheath exchanged out for an 8 Thai sheath. Through this Bentson wire was advanced traversing the iliac vein stents and the intravascular ultrasound probe was advanced into the vena cava and recorded pullback performed through the IVC, left common iliac vein, left external iliac vein. This revealed widely patent stents with no intimal hyperplasia or in-stent restenosis and no recurrence of compression. There was good stent wall apposition throughout. Next skin overlying the right femoral vein was anesthetized with 1% lidocaine and the vessel accessed in retrograde fashion with a micropuncture needle wire under ultrasound guidance. This was then exchanged out for a micropuncture sheath routine injection ilio caval venogram was performed which revealed patent stents and brisk contrast transit. Through the micropuncture sheath a starter wire was advanced and the micropuncture sheath exchanged out for a short 9 Thai sheath. Through the 9 Thai sheath a [employer]son wire was advanced in the IVC and a recorded pullback performed of the IVC, right common iliac vein, right external iliac vein. This revealed satisfactory stents with no intimal hyperplasia, no in-stent restenosis, no thrombus, and satisfactory wall apposition. Seeing no need for intervention the wires and sheath were withdrawn a minute pressure held for 5 minutes after which satisfactory stasis was noted. Patient was then awake from sedation taken recovery room with anticipated discharged home.
== END 2023-04-17 15:42 | disposition home or self-care (01) ==
PROVIDERS: PCP Family Medicine Geriatric Medicine; Referring Provider Surgery Trauma Surgery; Visit Provider Surgery Trauma Surgery
DX: I82.422 Acute embolism and thrombosis of left iliac vein (principal); M79.89 Other specified soft tissue disorders; M51.36 Other intervertebral disc degeneration, lumbar region; F17.220 Nicotine dependence, chewing tobacco, uncomplicated; Z86.718 Personal history of other venous thrombosis and embolism; Z79.82 Long term (current) use of aspirin; Z79.899 Other long term (current) drug therapy
CPT/HCPCS: 36005; 36415; 37252; 37253; 75822; 76937; 80048; 85027; 99152; 99153; C1753; C1769; J7040; Q9967

== ENCOUNTER → 2023-05-02 | Outpatient (CLI) | payer OTHER, SELFPAY ==
[2023-05-02 11:17] LABS: Absolute Lymphocyte Count 1.29 X10^3/uL (0.83-4.51); Absolute Neutrophil Count 3.5 X10^3/uL (2.0-7.7); Basophil# 0.07 X10^3/uL; Basophil% 1.3 % (0-1); Eosinophils% 1.8 % (0-5); Hematocrit 46.3 % (40-54); Hemoglobin 15.3 g/dL (13.0-16.5); Lymphocyte # 1.29 X10^3/ul (0.83-4.51); Lymphocyte % 23.5 % (19-41); Mean Corpuscular Hgb 29.4 pg (27.0-32.0); Monocyte# 0.54 X10^3/uL; Monocyte% 9.9 % (0-10); NRBC Flagged by Analyzer 0 % (0-5); Neutrophil # 3.46 X10^3/uL (2.7-7.7); Neutrophil % 63.1 % (47-70); Platelet Count 259 K/mm3 (150-450); RBC Distribution Width SD 39.1 fl (35.1-43.9); White Blood Count 5.5 K/mm3 (4.4-11.0)
[2023-05-02 11:52] LABS: ALB/GLOB Ratio 1.1 RATIO (0.9-2.4); AST(SGOT) 17 U/L (15-37); Alanine Aminotransfer ALT/SGPT 38 U/L (16-61); Albumin, Serum 3.8 g/dL (3.2-5.0); Alkaline Phosphatase 70 U/L (45-117); Anion Gap 5 (5-15); BUN 16 mg/dL (7-18); BUN/Creat Ratio 15.5 RATIO (10-20); Calcium,Total 8.9 mg/dL (8.5-10.1); Chloride 106 mmol/L (98-107); Creatinine, Serum 1.03 mg/dL (0.70-1.30); EST Glomerular Filtration Rate 81 mL/min (>60); Est Glom Filt Rate - Afr Amer 98 mL/min (>60); Globulin 3.4 g/dL (2.2-4.2); Glucose 90 mg/dL (74-106); Potassium 3.9 mmol/L (3.5-5.1); Protein, Total 7.2 g/dL (6.4-8.2); Sodium Level 138 mmol/L (136-145); Thyroid Stim Hormone (TSH) 1.58 uIU/mL (0.358-3.74)
== END | disposition home or self-care (01) ==
LOC: LAB 10:53
PROVIDERS: PCP Family Medicine Geriatric Medicine; Referring Provider Family Medicine Geriatric Medicine; Visit Provider Family Medicine Geriatric Medicine
DX: I10 Essential (primary) hypertension (principal)
CPT/HCPCS: 36415; 80053; 84443; 85025

== ENCOUNTER 2023-05-20 18:01 | Emergency (ER) | payer OTHER, SELFPAY ==
[2023-05-20 18:02] VITALS: BP 139/64; PULSE 78; RESP 14; TEMP 36; O2SAT 99; BMI 29.6
--- NOTE | 2023-05-20 18:19 | ED.RN ---
Laceration to left ring finger at nail bed taking up entire tip of finger.
[2023-05-20] MEDS: Cephalexin 250 MG Capsule 500 MG PO (18:36)
[2023-05-20] MEDS: Lidocaine 1% (20 ml mdv) 20 ML Vial 5 ML INFILT (18:36)
[2023-05-20] MEDS: Bupivacaine Mpf 0.5% 30 ML VIAL 5 ML INFILT (18:38)
[2023-05-20] MEDS: Gelfoam 12-7 MM Sponge (1) 1 EACH TOPICAL (18:38)
--- NOTE | 2023-05-20 18:48 | EX.ED.GENINJ ---
HPI History of Present Illness Chief Complaint: Laceration Narrative Narrative: Patient is a 47-year-old male who is presenting to the ER today with chief complaint of a traumatic injury to his left fingernail. Patient had a drill bit that was going into a piece of metal, caught the piece of metal and lacerated the distal third of the left ring finger. Patient is on Lovenox secondary to DVT in his leg. Patient is not diabetic. 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 Patient accidentally lacerated the fingernail of the light ring finger. Patient is right-hand dominant. Patient not diabetic. Patient is having pain, he has not taken anything for pain yet. No other complaints at this time. PFSH PFS Medical History DDD (degenerative disc disease), lumbar DVT (deep venous thrombosis) HNP (herniated nucleus pulposus), lumbar Hypertension Hypertension RSD lower limb Home Medications paroxetine HCl 20 mg tablet 1 tablet PO DAILY 02/13/23 [History Last Taken Unknown] valsartan 160 mg-hydrochlorothiazide 12.5 mg tablet 1 tablet PO DAILY 02/13/23 [History Last Taken Unknown] enoxaparin 100 mg/mL subcutaneous syringe (Lovenox) 100 mg subcut Q12H 90 days #180 mL 04/17/23 [Rx Last Taken Unknown] aspirin 325 mg tablet 325 mg PO DAILY 05/02/23 [History Last Taken Unknown] cephalexin 500 mg capsule 500 mg PO 3XD #21 CAPSULES 05/20/23 [Rx Last Taken Unknown] Allergy/AdvReac Type Severity Reaction Status Date / Time No Known Allergies Allergy Verified 05/20/23 18:02 Family History Father CVA (cerebral vascular accident) Father Heart disease Surgical History History of femoral hernia repair Social History Smoking Status: Never smoker Smokeless tobacco user: chewing tobacco how long ago did patient quit smokin can every 4-5 days alcohol intake: never ROS ROS ED ROS Narrative REVIEW OF SYSTEMS: Unless otherwise stated in this report the patient's positive and negative responses for review of systems for constitutional, eyes, ENT, cardiovascular, respiratory, gastrointestinal, neurological, , musculoskeletal, and integument systems and related systems to the presenting problem are either stated in the history of present illness or were not pertinent or were negative for the symptoms and/or complaints related to the presenting medical problem. EXAM Physical Exam Narrative Exam Narrative: Vital signs reviewed and patient is not hypoxic. General: The patient appears well and in no apparent distress. Patient is resting comfortably on cart. Not toxic, lethargic, or listless. Skin: Warm, dry, no pallor noted. There is no rash noted. Head: Normocephalic, atraumatic Eye: Normal conjunctiva, no drainage, EOMI. PERRL. Ears, Nose, Mouth, and Throat: oral mucosa is moist. Nares patent. Mouth without vesicles. Cardiovascular: Regular Rate and Rhythm, no murmurs, gallops, or rubs Respiratory: Patient is in no distress, no accessory muscle use, lungs are clear to auscultation, no wheezing, rales or rhonchi Back: non-tender, no CVA tenderness bilaterally to percussion. NO CTLS midline or paraspinal tenderness to palpation. GI: Soft, no tenderness to palpation, no masses appreciated. No rebound, guarding, or rigidity noted. Musculoskeletal: The patient has full range of motion of all extremities and joints with no difficulty to left ring finger. Patient has a laceration to the distal third of the fingernail. Patient has slow venous bleeding, no pulsatile bleeding. No obvious deformity. Patient has moderate to severe pain to the distal aspect the left ring finger. Patient is right-hand dominant. Patient has no other acute injuries at this time. Patient still has his left fingernail intact. Patient has no motor, no sensory deficits. Neurological: A&O x4, normal speech, no focal neurological deficits. Psychiatric: Cooperative Const Vital Signs: 05/20/23 18:02 Temperature 96.8 F L Temperature Source Temporal Pulse Rate 78 Respiratory Rate 14 Blood Pressure 139/64 H Blood Pressure Mean 89 Pulse Ox 99 Oxygen Delivery Method Room Air MDM MDM MDM Narrative Medical decision making narrative: Procedure note: Patient had a digital block to left ring finger. Patient was cleaned, prepped, draped in normal sterile fashion. Patient had a 5:1 0.5% Marcaine to 1% lidocaine digital block, 4 cc were used. Patient had good relief. Patient had good anesthetic effect with digital block. Patient had soaked left ring finger with Betadine and normal saline. Patient's bleeding has stopped. See nursing note. Patient had bacitracin, Telfa, tube gauze dressing, and aluminum finger splint placed to the left ring finger. Splint was assisted with Dr. Andrade. The patient was neurovascular intact before and after the splint was placed. The affected bones/injured area had proper alignment in a splint. Education on splint care at home was given at bedside. Patient and family had no questions at disposition. I discussed with the patient, no indication to remove the small distal nail avulsion at this time. Patient's bleeding has stopped. Patient has evidence of a open fracture to the left distal ring finger. Patient is placed on Keflex 3 times a day for 7 days. Patient will use topical antibiotic ointment 3-4 times a day. Wound care was discussed at bedside and on discharge paperwork. No questions at discharge. Patient's has been at bedside as well. Radiography Diagnostic Testing: Clinical Impression(s) from Imaging Studies Finger X-Ray 05/20/23 19:05 IMPRESSION: Acute nondisplaced fracture of the distal tuft of the distal fourth phalanx. Electronically Signed: Young Galarza MD at 19:42 EDT , Discharge Plan Triage Chief Complaint: Laceration ED Provider: Oscar Andrade Dx/Rx/DC Orders Clinical Impression: Fracture of finger, proximal phalanx, left, open, Laceration of left ring finger with damage to nail Instructions: Tdap Vaccine, ED Fracture, Finger, Open, ED Laceration Extremity, ED Wound Check (No Infection) Prescriptions: New cephalexin [cephalexin] 500 mg capsule 500 mg PO 3XD Qty: 21 0RF No Action paroxetine HCl 20 mg tablet 1 tablet PO DAILY valsartan-hydrochlorothiazide 160-12.5 mg tablet 1 tablet PO DAILY enoxaparin [Lovenox] 100 mg/mL syringe 100 mg subcut Q12H 90 Days Qty: 180 2RF Stand Alone Forms: ED Work / School Excuse Primary Care Provider: Rogelio Colvin Chi Referrals: Michael Lake DO [Med Staff - Active Staff] - Rogelio Colvin Chi, MD [Primary Care Provider] - Activity Restrictions/Additional Instructions: Use topical antibiotic ointment 3-4 times a day, either Neosporin, bacitracin or topical triple antibiotic. Keep your left ring finger clean and dry during the day, keep it open to air and oxygen at nighttime to help healing. The end of the fingernail will eventually fall off. Follow-up with PCP. Continue with Lovenox as prescribed. Finish all antibiotics to help prevent infection as well. Use your aluminum finger splint for the next 2 weeks to help with healing process and prevent further injury. You had a Tdap booster update tonight. Disposition Disposition: Home, Self Care
--- NOTE | 2023-05-20 19:05 | RAD_ITS ---
INDICATION: left ring finger EXAMINATION/TECHNIQUE: X-RAY - LEFT HAND XR Fingers Min 2 Views COMPARISON: None. FINDINGS: Acute nondisplaced fracture of the distal tuft of the distal fourth phalanx. No blastic or lytic lesions. No degenerative changes are seen. Soft tissue swelling of the fourth digit. RAD/Finger(s) Min 2 Views IMPRESSION: Acute nondisplaced fracture of the distal tuft of the distal fourth phalanx. Electronically Signed: Young Galarza MD at 19:42 EDT ,
[2023-05-20] MEDS: Diphth,Pertuss(Acell),Tet Vac 0.5 ML Vial IM (19:48)
[2023-05-20 20:09] VITALS: RESP 18
== END 2023-05-20 20:10 | disposition home or self-care (01) ==
PROVIDERS: Emergency Provider Emergency Medicine; PCP Family Medicine Geriatric Medicine; Visit Provider Emergency Medicine
DX: S62.645A Nondisplaced fracture of proximal phalanx of left ring finger, initial encounter for closed fracture (principal); Z87.891 Personal history of nicotine dependence; X58.XXXA Exposure to other specified factors, initial encounter; Z23 Encounter for immunization
CPT/HCPCS: 73140; 90471; 90715; 99284

== ENCOUNTER → 2023-08-15 | Outpatient (CLI) | payer OTHER, SELFPAY ==
--- NOTE | 2023-08-15 07:48 | VDLE_ITS ---
Reason For Study: Left leg pain RIGHT LEFT CFV is compressible, spontaneous, phasic, GSV is normal. competent and demonstrates normal CFV is compressible, spontaneous, phasic, augmentation. competent, and demonstrates normal Procedure augmentation. This is a venous duplex using B-mode, color EIV is compressible with normal venous flow flow and spectral Doppler. noted. Exam performed in department. 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 Chronic DVT. Normal venous flow noted. PopV is partially compressible with bright intraluminal echoes consistent with Chronic DVT. Normal venous flow noted. T/P trunk is partially compressible with bright intraluminal echoes consistent with Chronic DVT. PTV is compressible. LT PerV is compressible. VL/Venous Duplex US, Unilateral Interpretation Summary Chronic deep vein thrombosis is noted in the left femoral vein, popliteal vein, tibioperoneal trunk vein Ordering Physician: Teena Jacques Referring Physician: Rogelio Colvin Chi Performed By: Court Rod RVT
--- NOTE | 2023-08-15 07:48 | AAVD_ITS ---
Reason For Study: Acute onset LLE swelling and pain Inferior Vena Cava Proximal inferior vena cava measures 1.38 x 1.85 cm. in the cross-sectional axis. Proximal inferior vena cava measures 1.26 cm. in the longitudinal axis. Mid inferior vena cava measures 1.65 x 1.92 cm. in the cross-sectional axis. Mid inferior vena cava measures 1.42 cm. in the longitudinal axis. Distal inferior vena cava measures 1.43 x 1.52 cm. in the cross-sectional axis. Distal inferior vena cava measures 1.26 cm. in the longitudinal axis. The inferior vena cava has spontaneous, phasic flow throughout. Left Common Iliac Vein Left common iliac vein measures 1.48 x 1.61 cm. in the cross-sectional axis. Left common iliac vein measures 1.32 cm. in the longitudinal axis. The left common iliac vein has spontaneous, phasic flow throughout. Technically difficult to visualize left CIV due to bowel gas. Right Common Iliac Vein Right CIV not visualized due to bowel gas. Procedure Aorta IVC Iliac vasculature or bypass grafts [id number]. Preliminary report given to Marsha MIRANDA. Exam performed in department. VL/Abd Aortic/IVC Duplex scan Interpretation Summary Patent inferior vena cava and left iliac vein with normal flow pattern. Right iliac vein not visualized due to bowel gas. Ordering Physician: Teena Jacques Referring Physician: Rogelio Colvin Chi Performed By: Court Rod RVT
== END | disposition home or self-care (01) ==
LOC: CVS 07:48
PROVIDERS: PCP Family Medicine Geriatric Medicine; Referring Provider Physician Assistant; Visit Provider Physician Assistant
DX: M79.605 Pain in left leg (principal); M79.89 Other specified soft tissue disorders; I87.1 Compression of vein; Z86.718 Personal history of other venous thrombosis and embolism
CPT/HCPCS: 93971; 93978

== ENCOUNTER → 2023-10-16 | Outpatient (CLI) | payer OTHER, SELFPAY ==
[2023-10-16 13:56] LABS: Anion Gap 2 (5-15); BUN 18 mg/dL (7-18); BUN/Creat Ratio 16.7 RATIO (10-20); Calcium,Total 9.1 mg/dL (8.5-10.1); Chloride 106 mmol/L (98-107); Creatinine, Serum 1.08 mg/dL (0.70-1.30); EST Glomerular Filtration Rate 77 mL/min (>60); Est Glom Filt Rate - Afr Amer 93 mL/min (>60); Glucose 104 mg/dL (74-106); Sodium Level 138 mmol/L (136-145)
== END | disposition home or self-care (01) ==
PROVIDERS: PCP Family Medicine Geriatric Medicine; Referring Provider Physician Assistant; Visit Provider Physician Assistant
DX: Z79.01 Long term (current) use of anticoagulants (principal)
CPT/HCPCS: 36415; 80048; 85018

== ENCOUNTER 2024-04-29 17:02 | Emergency (ER) | payer OTHER, SELFPAY ==
[2024-04-29 17:03] VITALS: BP 135/77; PULSE 83; RESP 18; TEMP 36; O2SAT 96
--- NOTE | 2024-04-29 17:22 | RAD_ITS ---
INDICATION: chainsaw vs. leg EXAMINATION/TECHNIQUE: X-RAY - LEFT XR Tibia/Fibula 4 VIEWS COMPARISON: FINDINGS: SOFT TISSUES: Soft tissue injury anteriorly at the mid calf. No radiopaque foreign body. BONES/JOINTS: No acute fracture or subluxation.. Normal alignment. Preservation of the joint space.. No sclerotic or destructive changes observed. RAD/Tibia & Fibula 2 Views IMPRESSION: Soft tissue injury anteriorly at the mid calf. Electronically Signed: Celestino Grant DO at 18:30 EDT ,
--- NOTE | 2024-04-29 17:23 | EDS_ITS ---
HPI History of Present Illness Chief Complaint: Laceration Informant: patient and spouse/S.O. Narrative Narrative: Patient presents shortly after an accidental injury to the left baer/lower leg while using a chainsaw. He states he immediately doused it in alcohol to cleanse it and put a dressing on it was having trouble stopping the bleeding which is why he presents mainly. He is on clopidogrel because of a history of having had vascular surgery on a vein. He is able to walk on it states it stewart but does not have any other major pain or injuries. Tetanus Immunization: <5 years PFSH PFS Medical History DDD (degenerative disc disease), lumbar DVT (deep venous thrombosis) RSD lower limb HNP (herniated nucleus pulposus), lumbar Hypertension Hypertension Home Medications ?Medication ?Instructions ?Recorded ?Last Taken ?Type paroxetine HCl 20 mg tablet 1 tablet PO DAILY 02/13/23 Unknown History valsartan 160 1 tablet PO DAILY 02/13/23 Unknown History mg-hydrochlorothiazide 12.5 mg tablet aspirin 325 mg tablet 325 mg PO DAILY 05/02/23 Unknown History clopidogrel 75 mg tablet (Plavix) 75 mg PO DAILY #90 tabs 10/16/23 Unknown Rx Allergy/AdvReac Type Severity Reaction Status Date / Time No Known Allergies Allergy Verified 04/29/24 17:03 Family History Father CVA (cerebral vascular accident) Father Heart disease Surgical History History of femoral hernia repair Social History Smoking Status: Never smoker Smokeless tobacco user: chewing tobacco how long ago did patient quit smokin can every 4-5 days alcohol intake: never ROS ROS ED Constitutional Constitutional ED: Denies chills or fever(s) Musculoskeletal Musculoskeletal: Reports extremity pain; Denies neck pain Integumentary Reports wounds; Denies Abrasions or rash Neurologic Neurologic: Denies paresthesias or weakness EXAM Physical Exam Const Vital Signs: 04/29/24 17:03 Temperature 96.8 F L Temperature Source Temporal Pulse Rate 83 Respiratory Rate 18 Blood Pressure 135/77 H Blood Pressure Mean 96 Pulse Ox 96 Positive well nourished and well developed General Appearance ED: well developed and NAD Neck full ROM and supple Back/Spine normal ROM and normal to inspection Extremity full ROM Extremity Narrative: Laceration to the mid left lower leg, full range of motion all compartment soft and nondistended, neurovascularly intact distally. Neuro oriented x3, no focal motor deficits and no sensory deficits noted Sensorium / Orientation: alert Psych mental status grossly normal and thought process normal Skin Skin Narrative: 6 cm laceration anterior mid left lower leg, linear for the most part and clean, bone is not visible. Tibialis anterior fully functional and not visible. No deformities. No tissue loss. No foreign material seen. Rashes: no rashes MDM MDM MDM Narrative Medical decision making narrative: Wound was irrigated profusely, anesthetized with lidocaine with epinephrine, there was excellent hemostasis, repaired with skin edges everted to take off the tension, given appropriate care instructions, cleaned and dressed with bacitracin and discharged stable condition. Tetanus status was up-to-date. Procedures Lacerations L lower leg: Length: 6 cm Depth: Sub Q Shape: Linear Prep: Sterile Conditions and Betadine Laceration repair: Irrigated, Lidocaine with epi (6cc, 1%) and Local Irrigated (ml): 100 Number of Sutures/Cowpens: 5 Suture Information: Ethilon, Horizontal, Mattress and 4-0 Discharge Plan Triage Chief Complaint: Laceration ED Provider: Dimas Gill Dx/Rx/DC Orders Clinical Impression: Laceration of left lower leg without complication Instructions: ED Laceration Extremity Prescriptions: No Action paroxetine HCl 20 mg tablet 1 tablet PO DAILY valsartan-hydrochlorothiazide 160-12.5 mg tablet 1 tablet PO DAILY aspirin 325 mg tablet 325 mg PO DAILY clopidogrel [Plavix] 75 mg tablet 75 mg PO DAILY Qty: 90 3RF Primary Care Provider: Rogelio Colvin Chi Referrals: Rogelio Colvin Chi, MD [Primary Care Provider] - 10-14 Days suture removal Print Language: Micronesian Disposition Disposition: Home, Self Care
[2024-04-29] MEDS: Lidocaine 1% /Epi 1:100 (20ml) 20 ML Vial INFILT (17:32)
[2024-04-29 18:34] VITALS: BP 133/80; PULSE 95; RESP 16; TEMP 36.1; O2SAT 99
== END 2024-04-29 18:35 | disposition home or self-care (01) ==
PROVIDERS: Emergency Provider Emergency Medicine; PCP Family Medicine Geriatric Medicine; Visit Provider Emergency Medicine
DX: S81.812A Laceration without foreign body, left lower leg, initial encounter (principal); W29.3XXA Contact with powered garden and outdoor hand tools and machinery, initial encounter; Z79.01 Long term (current) use of anticoagulants; Z86.718 Personal history of other venous thrombosis and embolism; Z87.891 Personal history of nicotine dependence
CPT/HCPCS: 12002; 73590; 99284

== ENCOUNTER → 2024-05-02 | Outpatient (CLI) | payer OTHER, SELFPAY ==
--- NOTE | 2024-05-02 08:57 | VDLE_ITS ---
Reason For Study: HX LLE DVT RIGHT LEFT GSV is normal. GSV is normal. CFV is compressible, spontaneous, phasic, CFV is compressible, spontaneous, phasic, competent and demonstrates normal competent, and demonstrates normal augmentation. augmentation. FV is compressible, spontaneous, phasic, FV is partially compressible throughout with competent and demonstrates normal intraluminal echoes consistent with Chronic augmentation. DVT. Normal venous flow noted. POP V is compressible, spontaneous, phasic, PopV is partially compressible with competent and demonstrates normal intraluminal echoes consistent with Chronic augmentation. DVT. Normal venous flow noted. T/P Trunk is compressible. T/P trunk is partially compressible with PTV is compressible. intraluminal echoes consistent with Chronic RT PerV is compressible. DVT. Procedure PTV is compressible. This is a venous duplex using B-mode, color LT PerV is partially compressible. flow and spectral Doppler. Exam performed in department. The exam was diagnostic. VL/Venous Duplex US - [place] Extrem Interpretation Summary Chronic deep vein thrombosis noted in the left femoral vein, popliteal vein, ti bioperoneal trunk vein. Deep veins of the right lower extremity are patent and compressible segmentally . There is no evidence of right lower extremity deep vein thrombosis. The bilateral great sap henous veins appear patent and compressible segmentally. Ordering Physician: Teena Jacques Referring Physician: Rogelio Colvin Chi Performed By: [employer] RVT
--- NOTE | 2024-05-02 08:57 | AAVD_ITS ---
Reason For Study: BLE Iliac Stents Inferior Vena Cava Proximal inferior vena cava measures 2.05 x 2.20 cm. in the cross-sectional axis. Proximal inferior vena cava measures 2.07 cm. in the longitudinal axis. Mid inferior vena cava measures 1.81 x 1.89 cm. in the cross-sectional axis. Mid inferior vena cava measures 1.90 cm. in the longitudinal axis. Distal inferior vena cava measures 1.77 x 1.65 cm. in the cross-sectional axis. Distal inferior vena cava measures 1.65 cm. in the longitudinal axis. The inferior vena cava has spontaneous, phasic flow throughout. Left Common Iliac Vein Left common iliac vein measures 1.27 x 1.34 cm. in the cross-sectional axis. Left common iliac vein measures 1.32 cm. in the longitudinal axis. The left common iliac vein has spontaneous, phasic flow throughout. Unable to visualize stents. Right Common Iliac Vein Right common iliac vein measures 1.18 x 1.20 cm. in the cross-sectional axis. Right common iliac vein measures 1.38 cm. in the longitudinal axis. The right common iliac vein has spontaneous, phasic flow throughout. Unable to visualize stent. Procedure Aorta IVC Iliac vasculature or bypass grafts 06005. The exam was diagnostic. Exam performed in department. VL/Abd Aortic/IVC Duplex scan Interpretation Summary Patent inferior vena cava and bilateral iliac vein stents with normal venous fl ow pattern. Ordering Physician: Teena Jacques Referring Physician: Rogelio Colvin Chi Performed By: [employer], RVT
[2024-05-02 11:20] LABS: Absolute Lymphocyte Count 1.25 X10^3/uL (0.83-4.51); Absolute Neutrophil Count 3.1 X10^3/uL (2.0-7.7); Basophil# 0.05 X10^3/uL; Eosinophil# 0.17 X10^3/uL; Eosinophils% 3.4 % (0-5); Hemoglobin 13.9 g/dL (13.0-16.5); Lymphocyte # 1.25 X10^3/ul (0.83-4.51); Lymphocyte % 25.1 % (19-41); Mean Corp Hgb Conc 33.1 g/dL (32-36); Mean Corpuscular Volume 87.7 fL (80-94); Mean Platelet Vol. 9.5 fl (6.2-12.0); Monocyte# 0.37 X10^3/uL; Monocyte% 7.4 % (0-10); NRBC Flagged by Analyzer 0 % (0-5); Neutrophil # 3.13 X10^3/uL (2.7-7.7); Neutrophil % 62.9 % (47-70); Platelet Count 249 K/mm3 (150-450); RBC Distribution Width CV 12.9 % (11.6-14.6); RBC Distribution Width SD 41.1 fl (35.1-43.9); Red Blood Count 4.79 M/mm3 (4.6-6.2)
[2024-05-02 12:04] LABS: ALB/GLOB Ratio 1.1 RATIO (0.9-2.4); AST(SGOT) 15 U/L (15-37); Alanine Aminotransfer ALT/SGPT 24 U/L (16-61); Albumin, Serum 3.7 g/dL (3.2-5.0); Alkaline Phosphatase 83 U/L (45-117); Anion Gap 7 (5-15); BUN 24 mg/dL (7-18); BUN/Creat Ratio 26.5 RATIO (10-20); Calcium,Total 8.7 mg/dL (8.5-10.1); Chloride 110 mmol/L (98-107); Cholesterol 196 mg/dL (200); Creatinine, Serum 0.91 mg/dL (0.70-1.30); EST Glomerular Filtration Rate 94 mL/min (>60); Est Glom Filt Rate - Afr Amer 114 mL/min (>60); Globulin 3.4 g/dL (2.2-4.2); Glucose 108 mg/dL (74-106); High Density Lipoprotein 28 mg/dL; Potassium 4.1 mmol/L (3.5-5.1); Protein, Total 7.1 g/dL (6.4-8.2); Sodium Level 140 mmol/L (136-145); Thyroid Stim Hormone (TSH) 1.83 uIU/mL (0.358-3.74); Triglycerides 511 mg/dL
== END | disposition home or self-care (01) ==
PROVIDERS: PCP Family Medicine Geriatric Medicine; Referring Provider Physician Assistant; Visit Provider Physician Assistant
DX: Z48.812 Encounter for surgical aftercare following surgery on the circulatory system (principal); I82.409 Acute embolism and thrombosis of unspecified deep veins of unspecified lower extremity; I10 Essential (primary) hypertension; E78.5 Hyperlipidemia, unspecified; I87.1 Compression of vein; M79.89 Other specified soft tissue disorders
CPT/HCPCS: 36415; 80053; 80061; 84443; 85025; 93970; 93978

== ENCOUNTER → 2024-09-18 | Outpatient (CLI) | payer OTHER, SELFPAY | END | disposition home or self-care (01) | LOC: CVS 09:52 | PROVIDERS: PCP Family Medicine Geriatric Medicine; Referring Provider Family Medicine Geriatric Medicine; Visit Provider Family Medicine Geriatric Medicine | DX: M79.661 Pain in right lower leg (principal); M79.662 Pain in left lower leg; M76.61 Achilles tendinitis, right leg; I77.9 Disorder of arteries and arterioles, unspecified | CPT/HCPCS: 73610; 73650; 93970 ==

== ENCOUNTER 2024-11-03 23:50 | Emergency (ER) | payer OTHER, SELFPAY ==
[2024-11-03 23:51] VITALS: BP 146/92; PULSE 87; RESP 18; TEMP 37; O2SAT 96; BMI 27.2
--- NOTE | 2024-11-04 00:04 | EKG12_ITS ---
Test Reason : DYSRHYTHMIA Blood Pressure : */* mmHG Vent. Rate : 103 BPM Atrial Rate : 103 BPM P-R Int : 130 ms QRS Dur : 72 ms QT Int : 316 ms P-R-T Axes : 18 18 13 degrees QTcB Int : 413 ms Sinus tachycardia Otherwise normal ECG Confirmed by MAGDALENE TRISTAN, TREVOR ([id number]), senior editor SARAH GOLDMAN ([id number]) on 11/06/2024 2:24:34 PM Referred By: Confirmed By: TREVOR DEL CASTILLO MD
--- NOTE | 2024-11-04 00:09 | CT_ITS ---
EXAM: CT ABDOMEN AND PELVIS WITH INTRAVENOUS CONTRAST CLINICAL INDICATION: epigastric and RUQ pain TECHNIQUE: Helically acquired images were obtained of the abdomen and pelvis with intravenous contrast. This CT exam was performed using one or more of the following dose reduction techniques: automated exposure control, adjustment of the mA and/or kV according to patient size, and/or use of iterative reconstruction technique. CONTRAST: IV 100mL Isovue-370 RADIATION DOSE: CTDIvol = 21.73 mGy, DLP = 1363.88 mGy-cm COMPARISON: No relevant prior studies available. FINDINGS: LOWER THORAX: Unremarkable. Lung bases are clear. No cardiomegaly. No significant pericardial effusion. ABDOMEN: LIVER: Unremarkable. Homogeneous. No focal mass. GALLBLADDER AND BILE DUCTS: Unremarkable. No calcified gallstones. No gallbladder distention or wall edema. No intra- or extrahepatic biliary ductal dilation. PANCREAS: Unremarkable. No focal cystic or solid mass. SPLEEN: Unremarkable. Normal size without focal cystic or solid mass. ADRENALS: Unremarkable. No nodules. KIDNEYS AND URETERS: Unremarkable. Normal renal size and position. No hydronephrosis. STOMACH AND BOWEL: Multiple fluid-filled loops of nondilated small bowel, as well as a prominent amount of fluid in the proximal colon. No focal inflammatory change. PELVIS: APPENDIX: No evidence of acute appendicitis. BLADDER: Unremarkable. REPRODUCTIVE: Unremarkable as visualized. No mass. ABDOMEN and PELVIS: INTRAPERITONEAL SPACE: Unremarkable. No ascites or other fluid collection. No free air. BONES/JOINTS: Degenerative changes of the spine. No suspicious lytic or blastic abnormality. SOFT TISSUES: Unremarkable. No discrete abdominal or pelvic wall hernia. VASCULATURE: Bilateral iliac venous stents. Abdominal aorta is non-dilated. LYMPH NODES: Unremarkable. No enlarged lymph nodes. CT/Abdomen/Pelvis W IV Cont ONLY IMPRESSION: Multiple fluid-filled loops of nondilated small bowel, as well as a prominent amount of fluid in the proximal colon. Findings may indicate an infectious enteritis/diarrheal illness. Electronically Signed: Marcin Augustin MD at 1:38 EST ,
[2024-11-04] MEDS: 0.9% Normal Saline (1000mL) 1,000 ML 999 ML IV (00:24)
[2024-11-04] MEDS: Ondansetron 4 MG/2 ML Vial IV (00:24)
[2024-11-04 00:29] LABS: Absolute Lymphocyte Count 0.53 X10^3/uL (0.83-4.51); Absolute Neutrophil Count 17.2 X10^3/uL (2.0-7.7); Basophil# 0.06 X10^3/uL; Basophil% 0.3 % (0-1); Eosinophil# 0.13 X10^3/uL; Eosinophils% 0.7 % (0-5); Hematocrit 46.4 % (40-54); Hemoglobin 15.1 g/dL (13.0-16.5); Lymphocyte # 0.53 X10^3/ul (0.83-4.51); Lymphocyte % 2.8 % (19-41); Mean Corp Hgb Conc 32.5 g/dL (32-36); Mean Corpuscular Hgb 28.8 pg (27.0-32.0); Mean Corpuscular Volume 88.5 fL (80-94); Mean Platelet Vol. 9.2 fl (6.2-12.0); Monocyte% 4.2 % (0-10); NRBC Flagged by Analyzer 0 % (0-5); Neutrophil # 17.19 X10^3/uL (2.7-7.7); POSITIVE DIFFERENTIAL YES; Platelet Count 153 K/mm3 (150-450); RBC Distribution Width CV 13.2 % (11.6-14.6); RBC Distribution Width SD 42.5 fl (35.1-43.9); Red Blood Count 5.24 M/mm3 (4.6-6.2); White Blood Count 19.1 K/mm3 (4.4-11.0)
[2024-11-04 00:43] LABS: ALB/GLOB Ratio 1.1 RATIO (0.9-2.4); AST(SGOT) 11 U/L (15-37); Alanine Aminotransfer ALT/SGPT 26 U/L (16-61); Albumin, Serum 3.9 g/dL (3.2-5.0); Alkaline Phosphatase 76 U/L (45-117); Anion Gap 6 (5-15); BUN 24 mg/dL (7-18); BUN/Creat Ratio 20.3 RATIO (10-20); Calcium,Total 8.9 mg/dL (8.5-10.1); Chloride 106 mmol/L (98-107); Creatinine, Serum 1.18 mg/dL (0.70-1.30); EST Glomerular Filtration Rate 69 mL/min (>60); Est Glom Filt Rate - Afr Amer 84 mL/min (>60); Estimated Creatinine Clearance 86.11 ml/min; Globulin 3.5 g/dL (2.2-4.2); Glucose 131 mg/dL (74-106); Lipase 24 U/L (13-75); Potassium 3.8 mmol/L (3.5-5.1); Protein, Total 7.4 g/dL (6.4-8.2); Sodium Level 139 mmol/L (136-145)
--- NOTE | 2024-11-04 00:51 | EX.ED.DYSGE1 ---
HPI History of Present Illness Chief Complaint: Abd Pain Narrative Narrative: Patient is a 49-year-old male with a past medical history hypertension who presents to the emergency department with a chief complaint of abdominal pain. He states that he drove back from [place] this evening after visiting his children's and noted that he had nausea vomiting diarrhea when he arrived home with chills. He is concerned that he may have food poisoning. He states that he ate a cheeseburger. Patient denies anybody else with recent similar symptoms. [facility] Medical History DDD (degenerative disc disease), lumbar DVT (deep venous thrombosis) RSD lower limb HNP (herniated nucleus pulposus), lumbar Hypertension Hypertension Home Medications ?Medication ?Instructions ?Recorded ?Last Taken ?Type paroxetine HCl 20 mg tablet 1 tablet PO DAILY 02/13/23 Unknown History valsartan 160 1 tablet PO DAILY 02/13/23 Unknown History mg-hydrochlorothiazide 12.5 mg tablet aspirin 325 mg tablet 325 mg PO DAILY 05/02/23 Unknown History clopidogrel 75 mg tablet (Plavix) 75 mg PO DAILY #90 tabs 10/16/23 Unknown Rx dicyclomine 20 mg tablet 20 mg PO TID PRN abdominal pain 11/04/24 Unknown Rx #30 tabs ondansetron 4 mg disintegrating 4 mg PO Q6H PRN nausea and 11/04/24 Unknown Rx tablet vomiting #20 tabs Allergy/AdvReac Type Severity Reaction Status Date / Time No Known Allergies Allergy Verified 11/03/24 23:51 Family History Father CVA (cerebral vascular accident) Father Heart disease Surgical History History of femoral hernia repair Social History Smoking Status: Never smoker Smokeless tobacco user: chewing tobacco how long ago did patient quit smokin can every 4-5 days alcohol intake: never ROS ROS ED ROS Narrative Constitutional: Denies any fevers complains of chills denies fevers, denies headaches Eyes: Denies change vision double vision blurry vision Cardiovascular: Denies chest pain or palpitations Respiratory: Denies coughing wheezing shortness of breath Abdomen: Complains of abdominal pain nausea vomiting diarrhea as noted above : Denies any urinary symptoms Neurological: Denies any numbness, weakness, chills Musculoskeletal: Denies back pain Skin: Denies rashes or lesions EXAM Physical Exam Narrative Exam Narrative: General: Patient lying in bed rest comfortably did not appear to be uncomfortable secondary to his abdominal pain Head: Atraumatic, normocephalic Eyes: PERRL body, EOMI blood, no conjunctival injection noted Neck: Soft, supple, trachea midline Cardiovascular: Regular rate and rhythm Respiratory: Clear to auscultation bilaterally Abdomen: Soft, nondistended, diffuse tenderness to palpation, no rebound or guarding on exam, bowel sounds present x 4 Extremities: +5/5 strength noted in the bilateral lower extremities, radial pulses +2/4 in the bilateral upper extremities Neurological: Patient following commands knew that he was at [facility] years 2023 Skin: Warm, dry, intact Const Vital Signs: 11/03/24 23:51 Temperature 98.6 F Temperature Source Oral Pulse Rate 87 Respiratory Rate 18 Blood Pressure 146/92 H Blood Pressure Mean 110 Pulse Ox 96 Oxygen Delivery Method Room Air MDM MDM MDM Narrative Medical decision making narrative: Patient is a 49-year-old male who presented to the emerged part with chief complaint of abdominal pain, nausea vomiting diarrhea. Patient will have a workup performed here on the differential diagnose includes but not limited to viral gastroenteritis, food poisoning, bowel obstruction although feel this less likely as he has not had any previous abdominal surgeries. Once workup is obtained reviewed he will be reevaluated. Patient's CBC was significant for a leukocytosis of 19,000, hemoglobin was 15, platelet count was noted to be normal at 153. Patient sodium normal 139, potassium normal at 3.8, creatinine normal at 1.18. Patient's AST and ALT were 1126 respectively. Patient's lipase normal at 24. Patient CT abdomen pelvis with IV contrast was reviewed and showed findings consistent with multiple fluid-filled loops of nondilated small bowel as well as prominent amount of fluid in the proximal colon. Findings may indicate an infectious enteritis/diarrheal illness which is consistent with his symptoms here in the emergency department. Patient's EKG reviewed and independently interpreted by myself showed sinus tachycardia with a rate of 103. Patient tested negative for COVID flu and RSV. I did discuss results with the patient he will be given Reglan prior to discharge. He will be given prescription for Bentyl, Zofran. He is encouraged to continue to orally hydrate and start with a bland diet and advance as tolerated. He is encouraged return with worsening symptoms other concerns. He is agreeable with this plan as well as significant other at bedside all question concerns answered he was discharged home in stable condition. Lab Data Labs: Laboratory Results - last 24 hr 11/04/24 00:18 WBC 19.1 H RBC 5.24 Hgb 15.1 Hct 46.4 MCV 88.5 MCH 28.8 MCHC 32.5 RDW Std Deviation 42.5 RDW Coeff of [place]jo 13.2 Plt Count 153 MPV 9.2 Immature Gran % (Auto) 2.000 H Neut % (Auto) 90.0 H Lymph % (Auto) 2.8 L [place] % (Auto) 4.2 Eos % (Auto) 0.7 Baso % (Auto) 0.3 Absolute Neuts (auto) 17.2 H Absolute Lymphs (auto) 0.53 L Nucleated RBC % 0 Sodium 139 Potassium 3.8 Chloride 106 Carbon Dioxide 27.0 Anion Gap 6 BUN 24 H Creatinine 1.18 Estim Creat Clear Calc 86.11 Est GFR (MDRD) Af Amer 84 Est GFR (MDRD) Non-Af 69 BUN/Creatinine Ratio 20.3 H Glucose 131 H Calcium 8.9 Total Bilirubin 0.90 AST 11 L ALT 26 Alkaline Phosphatase 76 Total Protein 7.4 Albumin 3.9 Globulin 3.5 Albumin/Globulin Ratio 1.1 Lipase 24 Radiography Diagnostic Testing: Clinical Impression(s) from Imaging Studies Abdomen/Pelvis CT 11/04/24 00:09 IMPRESSION: Multiple fluid-filled loops of nondilated small bowel, as well as a prominent amount of fluid in the proximal colon. Findings may indicate an infectious enteritis/diarrheal illness. Electronically Signed: Marcin Augustin MD at 1:38 EST , Discharge Plan Triage Chief Complaint: Abd Pain Other Complaint: Diarrhea ED Provider: Isrrael Garrett Dx/Rx/DC Orders Clinical Impression: Viral gastroenteritis Prescriptions: New dicyclomine 20 mg tablet 20 mg PO TID PRN (Reason: abdominal pain) Qty: 30 0RF ondansetron 4 mg tablet,disintegrating 4 mg PO Q6H PRN (Reason: nausea and vomiting) Qty: 20 0RF No Action paroxetine HCl 20 mg tablet 1 tablet PO DAILY valsartan-hydrochlorothiazide 160-12.5 mg tablet 1 tablet PO DAILY aspirin 325 mg tablet 325 mg PO DAILY clopidogrel [Plavix] 75 mg tablet 75 mg PO DAILY Qty: 90 3RF Primary Care Provider: Rogelio Colvin Chi Referrals: Rogelio Colvin Chi, MD [Primary Care Provider] - Activity Restrictions/Additional Instructions: Take prescriptions as prescribed. Return with worsening symptoms or any other concerns. Follow-up with your primary care physician outpatient setting. Start with a bland diet and advance as tolerated. Print Language: Yakut Disposition Disposition: Home, Self Care
[2024-11-04 01:51] VITALS: BP 160/93; PULSE 107; RESP 18; O2SAT 95
[2024-11-04] MEDS: Metoclopramide 10 MG/2 ML Vial IV (02:00)
[2024-11-04 02:15] VITALS: BP 160/93; PULSE 100; RESP 18; TEMP 37; O2SAT 95
== END 2024-11-04 02:17 | disposition home or self-care (01) ==
PROVIDERS: Emergency Provider Emergency Medicine; PCP Family Medicine Geriatric Medicine; Visit Provider Emergency Medicine
DX: A08.4 Viral intestinal infection, unspecified (principal); Z86.718 Personal history of other venous thrombosis and embolism
CPT/HCPCS: 74177; 80053; 83690; 85025; 87631; 93005; 96361; 96374; 96375; 96376; 99283; Q9967; A4216; J2405

== ENCOUNTER → 2024-11-24 | Outpatient (CLI) | payer OTHER, SELFPAY ==
--- NOTE | 2024-11-24 13:13 | VDLE_ITS ---
Reason For Study: Left leg pain RIGHT LEFT CFV is compressible, spontaneous, phasic, GSV is normal. competent and demonstrates normal CIV normal phasic venous flow, stent noted. augmentation. EIV has normal phasic venous flow. Procedure CFV is compressible, spontaneous, phasic, This is a venous duplex using B-mode, color competent, and demonstrates normal flow and spectral Doppler. augmentation. Exam performed in department. 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 DVT. Normal venous flow noted. PopV is partially compressible with intraluminal echoes consistent with Chronic DVT. Normal venous flow noted. T/P trunk is partially compressible with intraluminal echoes consistent with Chronic DVT. Normal venous flow noted by color doppler. PTV is compressible. LT PerV is compressible. VL/Venous Duplex US, Unilateral Interpretation Summary Chronic deep vein thrombosis noted in the left femoral vein, popliteal vein, ti bioperoneal trunk vein. Left iliac vein stents patent with normal venous flow Ordering Physician: Bryn Mccall Referring Physician: Rogelio Colvin Chi Performed By: Court [employer] RVT
--- NOTE | 2024-11-24 14:58 | RAD_ITS ---
STUDY: X-RAY - PELVIS AND LEFT HIP REASON FOR EXAM: Male, 49 years old. LEFT HIP PAIN TECHNIQUE: 3 views of the pelvis and left hip. COMPARISON: None. FINDINGS: There is a non-specific bowel gas pattern. There is vascular stenting of the abdominal aorta and iliac arteries. Normal bilateral iliac wings, sacroiliac joints and visualized sacrum. Normal bilateral superior and inferior pubic rami. Normal pubic symphysis. Normal bilateral ischial tuberosities. There is minimal degenerative arthrosis of the hip joints bilaterally with tiny osteoarthritic spurring. Intact visualized femoral head. Intact acetabulum. There is no demonstrated acute fracture. RAD/HIP, UNI W/ Pelvis 2-3 Views IMPRESSION: Minimal degenerative arthrosis of the hip joints bilaterally. No demonstrated acute fracture. Electronically Signed: Bahman Don MD at 10:06 EST ,
== END | disposition home or self-care (01) ==
PROVIDERS: PCP Family Medicine Geriatric Medicine; Referring Provider Surgery Trauma Surgery; Visit Provider Surgery Trauma Surgery
DX: I87.1 Compression of vein (principal); M25.552 Pain in left hip; I77.9 Disorder of arteries and arterioles, unspecified
CPT/HCPCS: 73502; 93971

== ENCOUNTER → 2024-12-12 | Outpatient (CLI) | payer OTHER, SELFPAY ==
--- NOTE | 2024-12-12 10:00 | ART_ITS ---
Reason For Study: PAOD / LLE TINGLING - CLAUDICATION Procedure A bilateral lower extremity continuous wave Doppler with analog waveform analysis and ankle brachial indexes. Left Segmental Pressures Left brachial= 146mmHg. Left posterior tibial artery = 171mmHg. Left dorsalis pedis artery = 152mmHg. Left digit = 159 mmHg. The left posterior tibial artery waveforms are triphasic. The left dorsalis pedis waveforms are triphasic. Right Segmental Pressures Right brachial= 140mmHg. Right posterior tibial artery = 177mmHg. Right dorsalis pedis artery = 169mmHg. Right digit = 184 mmHg. The right posterior tibial artery waveforms are triphasic. The right dorsalis pedis waveforms are triphasic. Indices The right ankle brachial index by the posterior tibial artery is 1.21. The right ankle brachial index by the dorsalis pedis is 1.16. The right digital-brachial index is 1.26. The left ankle brachial index by the posterior tibial artery is 1.17. The left ankle brachial index by the dorsalis pedis is 1.04. The left digital-brachial index is 1.09. VL/Ankle Brachial Index Interpretation Summary Right FREDRICK 1.21, normal. TBI and Doppler/PVR waveforms of the right ankle normal at rest. Left FREDRICK 1.17, normal. TBI and Doppler/PVR waveforms of the left ankle normal a t rest. Ordering Physician: Rogelio Colvin Chi Referring Physician: ROGELIO COLVIN CHI, MD Performed By: [employer] RVT
== END | disposition home or self-care (01) ==
LOC: CVS 09:52
PROVIDERS: PCP Family Medicine Geriatric Medicine; Referring Provider Family Medicine Geriatric Medicine; Visit Provider Family Medicine Geriatric Medicine
DX: M76.61 Achilles tendinitis, right leg (principal); M79.671 Pain in right foot; I77.9 Disorder of arteries and arterioles, unspecified; R20.2 Paresthesia of skin
CPT/HCPCS: 93922

== ENCOUNTER → 2025-01-02 | Outpatient (CLI) | payer OTHER, SELFPAY ==
--- NOTE | 2025-01-02 11:50 | RAD_ITS ---
PROCEDURE: Lumbar spine radiographs REASON FOR EXAM: Pain TECHNIQUE: 2 view(s) of the lumbar spine COMPARISON: 01/17/2023 FINDINGS: See impression RAD/Lumbar Spine 2 or 3 Views IMPRESSION: Vertebral body heights are within normal limits. No significant malalignment. Moderate disc space narrowing and facet arthropathy at L4-L5. Sacroiliac joints are intact. Bilateral iliac stents no grisel. Reading Location: [facility]
== END | disposition home or self-care (01) ==
LOC: RAD 11:44
PROVIDERS: PCP Family Medicine Geriatric Medicine; Referring Provider Physician Assistant; Visit Provider Physician Assistant
DX: S39.92XA Unspecified injury of lower back, initial encounter (principal); M54.10 Radiculopathy, site unspecified
CPT/HCPCS: 72100

== ENCOUNTER 2025-01-14 10:32 | Day surgery (SDC) | payer OTHER, SELFPAY ==
[2025-01-13 13:20] VITALS: BMI 32.5
[2025-01-14 10:42] LABS: Hematocrit 46.4 % (40-54); Hemoglobin 15.3 g/dL (13.0-16.5); Mean Corpuscular Hgb 29.2 pg (27.0-32.0); Mean Corpuscular Volume 88.5 fL (80-94); Mean Platelet Vol. 8.8 fl (6.2-12.0); Platelet Count 259 K/mm3 (150-450); RBC Distribution Width CV 12.9 % (11.6-14.6); RBC Distribution Width SD 41.6 fl (35.1-43.9); Red Blood Count 5.24 M/mm3 (4.6-6.2); White Blood Count 6.2 K/mm3 (4.4-11.0)
[2025-01-14 11:37] LABS: Anion Gap 11 (5-15); BUN 14 mg/dL (4-19); BUN/Creat Ratio 11.8 RATIO (10-20); Calcium,Total 9.4 mg/dL (7.6-11.0); Carbon Dioxide 26.4 mmol/L (21.0-32.0); Chloride 101 mmol/L (98-108); Creatinine, Serum 1.17 mg/dL (0.70-1.20); EST Glomerular Filtration Rate 75 (>60); Glucose 102 mg/dL (70-99); Potassium 4.1 mmol/L (3.3-5.1); Sodium Level 138 mmol/L (133-145)
--- NOTE | 2025-01-14 16:15 | OP.PCM_ITS ---
Operative Report (Standard) Operative Information Date of Procedure: 01/14/25 Pre-Operative Diagnosis: Post thrombotic syndrome left lower extremity Post-Operative Diagnosis: Subacute thrombosis left common and external iliac vein stents Greater than 50% stenosis right common iliac vein stent Surgery/Procedure Performed: Venogram inferior vena cava Intravascular ultrasound inferior vena cava, right common and external iliac vein, left common and external iliac vein subway conductor: No Type of Anesthesia: Local and Sedation,Conscious Procedure Start Time: 14:00 Procedure Stop Time: 15:00 Select all DRAINS/GRAFTS/IMPLANTS that apply: None Estimated Blood Loss: 5 Specimen collected: No Description of surgery: HPI: Patient is a 49-year-old male with history of prior extensive left lower extremity deep vein thrombosis caused by compression of his inferior vena cava at the confluence by protruded lumbar disc. At the time he underwent mechanical thrombectomy and angioplasty and stenting of the inferior vena cava extending into the common iliac veins and external iliac veins bilaterally. Over the past month he has developed increasing left lower extremity tightness and discomfort as well as edema. He had a duplex evaluation which revealed no deep vein thrombosis. He is taken now for venogram to confirm the status of his iliac vein stents. Description of procedure: Upon obtaining form consent and verification correct patient procedure site patient taken to the Variety Lathe Operator he was positioned prepped and draped in usual sterile fashion. Timeouts performed and conscious sedation ministered Versed and fentanyl. Skin overlying the left common femoral vein was anesthetized with 1% lidocaine the vessel accessed under ultrasound guidance with a micropuncture needle wire. This exchanged for micropuncture sheath through which hand-injection ilio caval venogram was performed which revealed satisfactory position with no extravasation or dissection. This also revealed total occlusion of the superior two thirds of the stented segment with significant cross pelvic collaterals. A glide advantage wire was then advanced in the micropuncture sheath exchanged for a 10 Greenlandic sheath. Through this a Kumpe catheter and a straight stiff Glidewire were utilized to navigate the occluded stent with only moderate resistance. Once the wire was advanced into the vena cava the catheter was exchanged for a quick cross catheter which was able to be advanced beyond the stented segment. The glide wire was exchanged for a glide advantage wire. Next the skin overlying the right common femoral vein was anesthetized 1% lidocaine the vessel accessed with micropuncture needle wire and ultrasound guidance. This was then exchanged for micropuncture sheath routine injection ilio caval venogram was performed which revealed satisfactory position with no extravasation or dissection. This confirmed patent right iliac vein stents with what appeared to be some stenosis at the superior aspect. Through the micropuncture sheath a Krave-N wire was advanced the micropuncture sheath exchanged for an 8 Greenlandic sheath. Next intravascular ultrasound probe was advanced via the left access sheath and recorded pullback performed of the IVC, left common iliac vein, left external iliac vein. This revealed position within the true lumen of the vessel and position maintained within the lumen of the stent. This also revealed thrombus of mixed chronicity mostly more subacute in appearance. Given the presence of more acute thrombus rather than chronic occlusion and/or into microplates it was felt that mechanical thrombectomy would be required rather than simple angioplasty and/or restenting. The ultrasound probe was then withdrawn and advanced for the right femoral access sheath and recorded pullback performed of the IVC, right common iliac vein, right external leg vein. This again confirmed position within the lumen of the stent and also revealed focal area of stenosis without thrombus in the common iliac vein segment of the stent. Given the more complex nature of the problem it was felt that intervention today would not be undertaken and the patient will be returned with general anesthetic and the thrombectomy equipment required. Wires and sheath were then withdrawn manner pressure held for 10 minutes until hemostasis was obtained. The patient was taken recovery for bedrest prior to discharge to home. Surgical Findings: Subacute thrombus in the left common and external iliac vein stent Stenosis without thrombus in the right common iliac vein stent Complications Complications: No
== END 2025-01-14 17:08 | disposition home or self-care (01) ==
PROVIDERS: PCP Family Medicine Geriatric Medicine; Referring Provider Surgery Trauma Surgery; Visit Provider Surgery Trauma Surgery
DX: I87.1 Compression of vein (principal); I82.422 Acute embolism and thrombosis of left iliac vein; I10 Essential (primary) hypertension; M79.605 Pain in left leg; F17.220 Nicotine dependence, chewing tobacco, uncomplicated; Z79.82 Long term (current) use of aspirin; Z79.899 Other long term (current) drug therapy; Z86.718 Personal history of other venous thrombosis and embolism
CPT/HCPCS: 36010; 36415; 37252; 37253; 75825; 76937; 80048; 85027; 99152; 99153; C1753; C1769; C1894; Q9967; C1887

== ENCOUNTER 2025-01-19 13:06 | Observation (INO) | payer OTHER, SELFPAY ==
--- NOTE | 2025-01-15 16:31 | PAT.ANE_ITS ---
Pre-Assessment Diagnosis/Proposed Procedure Planned Operative Procedure(s): THROMBECTOMY Anesthesia History Anesthesia History - all source intelligence technician: Anesthesia History - all source intelligence technician Hx Hospitalization No 01/15/25 13:38 Any Problems With Anesthesia No 01/15/25 13:38 Cholinesterase deficiency No 01/15/25 13:38 You/Your Family Experience No 01/15/25 13:38 fever (hyperthermia) with Relationship Recent Exposure to Contagious Disease Does patient have nerve No 01/15/25 13:38 stimulator Patient instructed to have device shut off --Does patient have Pacemaker or ICD? When Was Last Pacemaker Check QUESTION #4 FULL TEXT: You/Your Family Experience fever (hyperthermia) with Anesthesia Last Oral Intake Last Oral intake: Last Oral Intake NPO since Meds taken in AM with sips of water? Meds patient instructed to take am of surgery PONV PONV - all source intelligence technician: PONV - all source intelligence technician Female No 01/15/25 13:38 HX of Motion Sickness No 01/15/25 13:38 HX of N/V After Surgery No 01/15/25 13:38 Non-Smoker Yes 01/15/25 13:38 Duration of Surgery greater No 01/15/25 13:38 than 60 minutes Number of Risk Factors 1 01/15/25 13:38 PONV Score Low Risk 01/15/25 13:38 Height & Weight Height & Weight: Anesthesia: Height & Weight Height 6 ft 2.02 in 01/14/25 10:56 Respiratory Assessment Respiratory Assessment - all source intelligence technician: Respiratory Tract Infection Hx - all source intelligence technician Hx Respiratory Tract Infection No 01/15/25 13:38 STOP Sleep Apnea STOP Sleep Apnea - all source intelligence technician: STOP Sleep Apnea - all source intelligence technician Hx Hypertension Yes: CONTROLLED ON MED 01/15/25 13:38 Hx Sleep Apnea No 01/15/25 13:38 CPAP BIPAP Do you snore loudly (louder No 01/15/25 13:38 than talking or can be heard Do you often feel tired/ No 01/15/25 13:38 fatigued/ sleepy during daytime? Has anyone observed you stop No 01/15/25 13:38 breathing during sleep? STOP Results Negative 01/15/25 13:38 QUESTION #5 FULL TEXT : Do you snore loudly (louder than talking or can be heard through closed doors)? Tobacco Use History Tobacco Use History - all source intelligence technician: Tobacco Use History - all source intelligence technician Tobacco Use Smoking Status Former smoker 01/15/25 13:38 Hx Tobacco Use No 01/15/25 13:38 Years Smoking Packs Smoked per Day Smoking Cessation Date was Yes - quit smoking within 15 01/15/25 13:38 within the last 15 years years Hx Smoking Cessation Date Hx Smoking Cessation Counseling Hematologic Medial History Hematologic Hx - all source intelligence technician: Hematologic Medical Hx - nursing resident Hx of Blood Transfusion No 01/15/25 13:38 Hx of Transfusion in last 3 No 01/15/25 13:38 Months Date of Last Transfusion (if within last 3 months) Ever experience any problems No 01/15/25 13:38 with transfusion(s)? Specify any problems Hx of Preganancy in last 3 N/A 01/15/25 13:38 Months Nurse Filling Out Transfusion VCHRISTIN 01/15/25 13:38 & Questions: Date: 01/15/25 01/15/25 13:38 Time: 13:40 01/15/25 13:38 Patient unable to answer at this time (ie. confused, unrespo /Reproduction History /Reproductive History - all source intelligence technician: /Reproductive Hx- all source intelligence technician Hx Now No 01/15/25 13:38 Gestational Age (in weeks): EDC: Hx Hx Para Hx Section SAB No 01/15/25 13:38 [facility] Medical History (Updated 01/15/25 @ 13:38 by Denise Jimenes) Wears glasses Marijuana use History of steroid therapy Arthritis Chewing tobacco nicotine dependence in remission History of pain when walking Hx of edema Hx of cardiovascular stress test DDD (degenerative disc disease), lumbar DVT (deep venous thrombosis) RSD lower limb HNP (herniated nucleus pulposus), lumbar Hypertension Hypertension Home Medications ?Medication ?Instructions ?Recorded ?Last Taken ?Type paroxetine HCl 20 mg tablet 1 tablet PO DAILY 02/13/23 Unknown History valsartan 160 1 tablet PO DAILY 02/13/23 U nknown History mg-hydrochlorothiazide 12.5 mg tablet aspirin 81 mg tablet,delayed 81 mg PO QDAY 01/02/25 Un known History release enoxaparin 120 mg/0.8 mL 120 mg (0.8 mL) subcut Q12H 30 01/15/25 Unknown Rx subcutaneous syringe (Lovenox) days #48 mL Allergy/AdvReac Type Severity Reaction Status Date / Time No Known Allergies Allergy Verified 01/15/25 13:25 Family History Father CVA (cerebral vascular accident) Father Heart disease Other Bleeding disorder CAD (coronary artery disease) Hypertension Surgical History (Updated 01/15/25 @ 13:38 by Denise Jimenes) Hx of hernia repair History of femoral hernia repair Social History Smoking Status: Former smoker Smokeless tobacco user: chewing tobacco how long ago did patient quit smokin can every 4-5 days alcohol intake: never Audit: Pertinent Findings Pertinent Findings EKG Perinent findings: November 04, 2024. Sinus tachycardia at 103 bpm. Recommendation Anesthesia Recommendation Anesthesia recommendation: OPTIMIZED for anesthesia
[2025-01-19] VITALS (17 sets, daily range): BP systolic 120–152; BP diastolic 75–98; PULSE 74–99; RESP 12–20; TEMP 35.7–36.6; O2SAT 90–98; BMI 32.7
--- NOTE | 2025-01-19 07:48 | PRE.ANES_ITS ---
ASA Classification* ASA Classification ASA Classification: 3 Assessment & Plan Anesthesia* Anesthesia Assessment Anesthesia Assessment: Discussed sedation and/or anesthesia options, risks, benefits, and alternatives with patient/parents/legal guardian/POA. Questions invited. The patient/parents/legal guardian/POA seems to understand and agrees to proceed with anesthesia plan. Reviewed the physical assessment, medical history, allergy history and patient home medications list prior to surgery/procedure/anesthetic and documented any changes. Performed airway and anesthesia risk assessments. Anesthesia Type Anesthesia Type: General Anesthesia Focused Assessment* Airway Assessment Mouth opens: >3 cm Mallampati Score: II Focused Labs Anesthesia Preop lab: CBC WBC 6.2 K/mm3 (4.4-11.0) 01/14/25 10:36 01/14/25 RBC 5.24 M/mm3 (4.6-6.2) 01/14/25 10:36 01/14/25 Hgb 15.3 g/dL (13.0-16.5) 01/14/25 10:36 01/14/25 Hct 46.4 % (40-54) 01/14/25 10:36 01/14/25 Plt Count 259 K/mm3 (150-450) 01/14/25 10:36 01/14/25 CHEMISTRY Potassium 4.1 mmol/L (3.3-5.1) 01/14/25 10:36 01/14/25 Sodium 138 mmol/L (133-145) 01/14/25 10:36 01/14/25 BUN 14 mg/dL (4-19) 01/14/25 10:36 01/14/25 Creatinine 1.17 mg/dL (0.70-1.20) 01/14/25 10:36 01/14/25 Glucose 102 mg/dL (70-99) H 01/14/25 10:36 01/14/25 POC Glucose 150 mg/dL (74-106) H 01/11/23 13:58 01/11/23 TSH 1.83 uIU/mL (0.358-3.74) 05/02/24 10:55 COAG PT 17.5 SECONDS (11.7-14.9) H 01/09/23 16:31 12/14 07/04 Pre-Assessment Diagnosis/Proposed Procedure Planned Operative Procedure(s): THROMBECTOMY Anesthesia History Anesthesia History - neon sign servicer: Anesthesia History - neon sign servicer Hx Hospitalization No 01/15/25 13:38 Any Problems With Anesthesia No 01/15/25 13:38 Cholinesterase deficiency No 01/15/25 13:38 You/Your Family Experience No 01/15/25 13:38 fever (hyperthermia) with Relationship Recent Exposure to Contagious Disease Does patient have nerve No 01/15/25 13:38 stimulator Patient instructed to have device shut off --Does patient have Pacemaker or ICD? When Was Last Pacemaker Check QUESTION #4 FULL TEXT: You/Your Family Experience fever (hyperthermia) with Anesthesia Last Oral Intake Last Oral intake: Last Oral Intake NPO since Meds taken in AM with sips of water? Meds patient instructed to take am of surgery PONV PONV - neon sign servicer: PONV - neon sign servicer Female No 01/15/25 13:38 HX of Motion Sickness No 01/15/25 13:38 HX of N/V After Surgery No 01/15/25 13:38 Non-Smoker Yes 01/15/25 13:38 Duration of Surgery greater No 01/15/25 13:38 than 60 minutes Number of Risk Factors 1 01/15/25 13:38 PONV Score Low Risk 01/15/25 13:38 Height & Weight Height & Weight: Anesthesia: Height & Weight Height 6 ft 2.02 in 01/14/25 10:56 Respiratory Assessment Respiratory Assessment - neon sign servicer: Respiratory Tract Infection Hx - neon sign servicer Hx Respiratory Tract Infection No 01/15/25 13:38 STOP Sleep Apnea STOP Sleep Apnea - neon sign servicer: STOP Sleep Apnea - neon sign servicer Hx Hypertension Yes: CONTROLLED ON MED 01/15/25 13:38 Hx Sleep Apnea No 01/15/25 13:38 CPAP BIPAP Do you snore loudly (louder No 01/15/25 13:38 than talking or can be heard Do you often feel tired/ No 01/15/25 13:38 fatigued/ sleepy during daytime? Has anyone observed you stop No 01/15/25 13:38 breathing during sleep? STOP Results Negative 01/15/25 13:38 QUESTION #5 FULL TEXT : Do you snore loudly (louder than talking or can be heard through closed doors)? Tobacco Use History Tobacco Use History - neon sign servicer: Tobacco Use History - neon sign servicer Tobacco Use Smoking Status Former smoker 01/15/25 13:38 Hx Tobacco Use No 01/15/25 13:38 Years Smoking Packs Smoked per Day Smoking Cessation Date was Yes - quit smoking within 15 01/15/25 13:38 within the last 15 years years Hx Smoking Cessation Date Hx Smoking Cessation Counseling Hematologic Medial History Hematologic Hx - neon sign servicer: Hematologic Medical Hx - supervisor cartography Hx of Blood Transfusion No 01/15/25 13:38 Hx of Transfusion in last 3 No 01/15/25 13:38 Months Date of Last Transfusion (if within last 3 months) Ever experience any problems No 01/15/25 13:38 with transfusion(s)? Specify any problems Hx of Preganancy in last 3 N/A 01/15/25 13:38 Months Nurse Filling Out Transfusion VCHRISTIN 01/15/25 13:38 & Questions: Date: 01/15/25 01/15/25 13:38 Time: 13:40 01/15/25 13:38 Patient unable to answer at this time (ie. confused, unrespo /Reproduction History /Reproductive History - neon sign servicer: /Reproductive Hx- neon sign servicer Hx Now No 01/15/25 13:38 Gestational Age (in weeks): EDC: Hx Hx Para Hx Section SAB No 01/15/25 13:38 Active Medications Active Medications: Current Medications Generic Name Dose Route Start Last Admin Trade Name Freq PRN Reason Stop Dose Admin Sodium Chloride 1,000 mls @ 15 mls/hr 01/19/25 07:30 IV 01/24/25 20:49 .Q48H [facility] Protocol PFSH Medical History Wears glasses Marijuana use History of steroid therapy Arthritis Chewing tobacco nicotine dependence in remission History of pain when walking Hx of edema Hx of cardiovascular stress test DDD (degenerative disc disease), lumbar DVT (deep venous thrombosis) RSD lower limb HNP (herniated nucleus pulposus), lumbar Hypertension Hypertension Home Medications ?Medication ?Instructions ?Recorded ?Last Taken ?Type paroxetine HCl 20 mg tablet 1 tablet PO DAILY 02/13/23 Unknown History valsartan 160 1 tablet PO DAILY 02/13/23 U nknown History mg-hydrochlorothiazide 12.5 mg tablet aspirin 81 mg tablet,delayed 81 mg PO QDAY 01/02/25 Un known History release enoxaparin 120 mg/0.8 mL 120 mg (0.8 mL) subcut Q12H 30 01/15/25 Unknown Rx subcutaneous syringe (Lovenox) days #48 mL Allergy/AdvReac Type Severity Reaction Status Date / Time No Known Allergies Allergy Verified 01/15/25 13:25 Family History Father CVA (cerebral vascular accident) Father Heart disease Other Bleeding disorder CAD (coronary artery disease) Hypertension Surgical History Hx of hernia repair History of femoral hernia repair Social History Smoking Status: Former smoker Smokeless tobacco user: chewing tobacco how long ago did patient quit smokin can every 4-5 days alcohol intake: never Review of Systems (Anesthesia) ROS Narrative System reviewed and no additional complaints, except as documented.
[2025-01-19 07:55] LABS: Hematocrit 41.8 % (40-54); Mean Corp Hgb Conc 33.5 g/dL (32-36); Mean Corpuscular Hgb 29.5 pg (27.0-32.0); Mean Platelet Vol. 8.9 fl (6.2-12.0); Platelet Count 217 K/mm3 (150-450); RBC Distribution Width CV 12.7 % (11.6-14.6); RBC Distribution Width SD 40.6 fl (35.1-43.9); Red Blood Count 4.75 M/mm3 (4.6-6.2); White Blood Count 5.8 K/mm3 (4.4-11.0)
[2025-01-19] MEDS: 0.9% Normal Saline (1000mL) 1,000 ML 15 ML IV (08:00)
--- NOTE | 2025-01-19 08:30 | HP.PCM_ITS ---
History and Physical Allergies No Known Allergies Allergy (Verified 01/02/25 10:49) Medications ?Medication ?Instructions ?Recorded ?Confirmed ?Type paroxetine HCl 20 mg tablet 1 tablet PO DAILY 02/13/23 04/17/24 Hist ory valsartan 160 1 tablet PO DAILY 02/13/23 04/17/24 Hist ory mg-hydrochlorothiazide 12.5 mg tablet aspirin 81 mg tablet,delayed 81 mg PO QDAY 01/02/25 History release Have you fallen in the past year?: No PFSH Medical History (Updated 01/06/25 @ 08:20 by JORGE A Schmitt) DDD (degenerative disc disease), lumbar DVT (deep venous thrombosis) RSD lower limb HNP (herniated nucleus pulposus), lumbar Hypertension Hypertension Surgical History History of femoral hernia repair Family History Father CVA (cerebral vascular accident)Father Heart diseaseOther Bleeding disorder CAD (coronary artery disease) Hypertension Social History Smoking Status: Never smoker Smokeless tobacco user: chewing tobacco how long ago did patient quit smokin can every 4-5 days alcohol intake: never HPI HPI HPI: DELTA CHEEK, is a 49 M who presents to the office today with increased LLE swelling and pain. He has noticed increased intermittent particularly left lower extremity edema. He notices it more on days that he is more up and active typically but not always. It does tend to improve with elevation. Initially about 4 weeks ago when he felt that he first started noticing it getting worse he also had pain in his proximal thigh and was very worried it was a recurrent DVT, venous duplex at that time was negative for any left lower extremity DVT and also captured his iliac stents which appeared patent. He has also felt that his skin along his leg will sometimes appear more pink/red. He also gets this aching in his left calf and left thigh. He has a lot of pain/discomfort within his hip, knee, and ankle, not necessarily worse with activity and not necessarily positional. He does have a history of significant lumbar degenerative disc disease, no recent imaging in this regard however and he is not following with orthopedic spine or pain management services. His PCP did order at that point a hip/pelvic x-ray which revealed mild osteoarthritis. His PCP also ordered a lower extremity arterial study which was normal. Venogram revealed occlusion of superior aspect of stent, subacute in appearance. ROS General General: Yes fatigue and weakness; No weight change, appetite, colon cancer or breast cancer HEENT HEENT: No difficulty swallowing, eye injury, eye surgery, swollen glands or hoarseness Endo Endocrine: No thyroid disease, diabetes mellitus, thyroid cancer, Hair loss, heat intolerance or cold intolerance Skin Skin: No rash or changing moles Musc Musculoskeletal: Yes back problems and arthritis; No rheumatoid arthritis, gout or joint pain Cardio Cardiovascular: Yes high blood pressure; No murmur, pacemaker, heart disease, atrial fibrillation, heart attack, heart stent, palpitations, shortness of breat with exertion or chest pain Psych Psychiatric: Yes anxiety; No depression or hearing voices Resp Respiratory: No shortness of breath, No sleep apnea, No cough, No COPD, No asthma, No emphysema and No wheezing Gastro Gastrointestinal: No abdominal pain, No nausea or vomiting, No diarrhea, No constipation, No blood in stool, No acid reflux, No hemorrhoids, No ulcers, No gallbladder problem and No black,tarry stools Daniel Hematologic: No blood thinners, No blood disorders, No bleeding, No anemia and No blood clots Neuro Neurologic: No system reviewed and no additional complaints, except as documented, No as per HPI, No abnormal gait, No abnormal hearing, No abnormal movements, No abnormal speech, No behavioral changes, Yes burning sensations, No confusion, No convulsions, No disequilibrium, No dizziness, No localized weakness, No frequent falls, No headache(s), No lack of coordination, No loss of vision, No memory loss, Yes numbness, No other visual disturbances, Yes radicular pain, Yes restless legs, No sensory deficit, No syncope, Yes tingling, No tremor(s), Yes weakness and No other Exam Const General: cooperative, healthy appearing, comfortable, no acute distress and well developed Nutritional Appearance: well nourished Orientation: alert, awake and oriented x3 HENMT Head: normocephalic and atraumatic Ears: hearing grossly normal bilaterally Nose: external nose normal Eyes General: appearance normal, both eyes and all related structures EOM: EOM intact bilaterally Neck Neck: normal visual inspection, full ROM and trachea midline Resp Effort & Inspection: normal respiratory effort, able to speak in complete sentences, symmetric chest movement, no audible wheezes, not labored, no stridor and no use of accessory muscles Cardio Rate: regular rate Rhythm: regular rhythm Skin General: no rashes or lesions noted and no erythema Wounds: no wounds Neuro Cranial Nerves: CN's II-XI intact bilaterally and EOM intact bilaterally Speech: speech normal Gait: normal gait Motor: strength 5/5 throughout Sensory Exam: no sensory deficits noted Extremities Lower Extremity Edema: Trace: Left Psych Appearance: grossly normal and well kempt Mental Status: mental status grossly normal Mood: congruent mood Speech and Movement: speech and movement normal Thought Content: normal Judgment: judgment good Coding Level of Care Code Off vis,est,level 3 Diagnoses 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
[2025-01-19 08:38] LABS: Anion Gap 12 (5-15); BUN 24 mg/dL (4-19); BUN/Creat Ratio 21.6 RATIO (10-20); Calcium,Total 9.3 mg/dL (7.6-11.0); Carbon Dioxide 25.2 mmol/L (21.0-32.0); Chloride 104 mmol/L (98-108); Creatinine, Serum 1.09 mg/dL (0.70-1.20); EST Glomerular Filtration Rate 82 (>60); Glucose 103 mg/dL (70-99); Potassium 3.8 mmol/L (3.3-5.1); Sodium Level 141 mmol/L (133-145)
[2025-01-19 12:59] LABS: ACT Activated Clotting Time 181 sec (74-137)
[2025-01-19 12:59] LABS: ACT Activated Clotting Time 187 sec (74-137)
[2025-01-19 12:59] LABS: ACT Activated Clotting Time 222 sec (74-137)
[2025-01-19 12:59] LABS: ACT Activated Clotting Time 199 sec (74-137)
--- NOTE | 2025-01-19 13:43 | PCM.POST.ANE ---
Anesthesia: Postop Eval I Current Vital Signs Temperature: 96.3 F Pulse Rate: 83 Blood Pressure: 131/88 Respiratory Rate: 20 Pulse Ox: 95 Oxygen Delivery Method: Venturi Mask Oxygen Flow Rate (L/min): 8 Assessment Airway patent: Yes Spontaneous unlabored respirations: Yes Mental status: Awake and Calm nausea: No Vomiting: No Anesthesia Complication: No Fluid Hydration Crystalloid volume administer (ml): 900 Total IV fluid infused: 900 Progress Note Anesthesia document: Postop Eval 1 completed: Yes
--- NOTE | 2025-01-19 15:17 | POSTOPAN2_ITS ---
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 Spontaneous unlabored Yes 01/19/25 13:44 STEAM HAMMER [email or web address] respirations Mental status Awake,Calm 01/19/25 13:44 STEAM [email or web address] [email or web address] nausea No 01/19/25 13:44 STEAM HAMMER [email or web address] Vomiting No 01/19/25 13:44 STEAM HAMMER [email or web address] Anesthesia Postop Eval I: Fluid Summary Crystalloid volume administer 900 01/19/25 13:44 [email or web address] [email or web address] (ml) Colloids volume administered ( ml) Blood Product volume administered (ml) Total IV fluid infused 900 01/19/25 13:44 STEAM HAMMER [email or web address] Anesthesia Postop Eval I: Summary Notes Anesthesia Complication No 01/19/25 13:44 STEAM HAMMER [email or web address] Anesthesia Complication Comment: Post-operative progress note Anesthesia: Postop Eval II Evaluation Mental status: Awake Pain Level: 1 nausea: No Vomiting: No
--- NOTE | 2025-01-19 15:17 | PCM.POSTANE2 ---
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 Anesthesia Complication Comment: Post-operative progress note Anesthesia: Postop Eval II Evaluation Mental status: Awake Pain Level: 1 nausea: No Vomiting: No
[2025-01-19] MEDS: Albuterol 2.5 MG/3 ML VIAL.NEB. INHALATION (15:20)
[2025-01-19] MEDS: 0.45% Normal Saline 1,000 ML 100 ML IV (16:35)
[2025-01-19] MEDS: oxyCODONE 5 MG Tablet PO (16:37)
--- NOTE | 2025-01-19 16:42 | OP.PCM_ITS ---
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 At the time he underwent percutaneous mechanical thrombectomy and angioplasty and stenting of the inferior vena cava and bilateral common and external iliac veins. He had been doing well until in recent months when he had developed increasing left leg pain, tightness. Initial ultrasound imaging suggested no thrombus of the left lower extremity in the visualized portion of the stent appeared to be patent with no thrombus. He was initially taken for diagnostic venogram which revealed total occlusion of the left common iliac vein stent, nonocclusive thrombus of the left external iliac vein stent, and in-stent stenosis of the right common iliac vein stent. He is taken now for percutaneous mechanical thrombectomy. Description of procedure: Upon obtaining form consent verification correct patient procedure site patient was taken the [employer] he was placed on general anesthesia. He was then positioned prepped and draped in usual sterile fashion time was performed. Skin overlying the right internal jugular vein was anesthetized 1% lidocaine the vessel accessed under ultrasound guidance with a micropuncture needle wire. This then exchanged for a micropuncture sheath through which a Bentson wire is advanced into the inferior vena cava. The micropuncture sheath and exchanged for an 8 Turkish sheath which was advanced over the wire under fluoroscopic guidance into the inferior vena cava just superior to the previously placed stents. Efforts to engage the occluded left iliac vein stent were undertaken with an angled quick cross catheter and a stiff Glidewire. Likely due to the IVC thrombus and thrombus to the proximal edge of the stent we are unable to effectively initiate crossing the occlusion. Next under ultrasound guidance the left common femoral vein was accessed with a micropuncture needle wire then exchanged for micropuncture sheath. Through this hand-injection iliofemoral angiograms performed revealing satisfactory positioning and no extravasation or dissection. Through the micropuncture sheath a Bentson wire was advanced and the micropuncture sheath exchanged for short 5 Turkish sheath. The Bentson wire was exchanged for the straight stiff Glidewire and utilizing this in the quick cross catheter we were able to engage the inferior edge of the occlusion and successfully cross while maintaining position what appeared to be true lumen of the stent and vessel. The wire was advanced into the vena cava and a snare was advanced via the right IJ sheath staring the wire and pulling it through to the IJ sheath hub. A quick cross catheter then advanced over the wire from the IJ access externalizing over the wire through the femoral access. The glide wire was then exchanged for an Amplatz wire which was advanced through from the IJ access and externalized through the femoral access. The catheter was then withdrawn and intravascular ultrasound probe advanced over the wire and recorded pullback performed of the left external iliac vein, common iliac vein, inferior vena cava. This confirmed position within true lumen of the stent and delineated the extent of thrombus. The patient was in heparinized allowed to circulate for 3 minutes. The 8 Turkish sheath was then exchanged for the Inari Protrieve distal protection sheath in the filter mechanism deployed. Next a Bard Livingston 10 mm x 40 angioplasty balloon was used to predilate the entirety of the length of the total occlusion, inflated to nominal and then deflated and repositioned to cover the entire length. Next the Inari Revcore mechanical thrombectomy device was advanced over the wire and engaged for multiple passes across the area of total occlusion both of the stent in the [place] vessel below the stent. After multiple passes the Inari Flowtriever aspiration device was advanced and multiple aspirations performed across the treatment area with aspirated blood returned after filtration. Repeat imaging revealed improved flow channel but still significant residual thrombus within the stent and inferior to it. The revcore device was then readvanced and engaged for multiple passes over the area of residual thrombus. Afterwards this was again withdrawn and the aspiration device readvanced and multiple aspirations performed with blood returned after filtration. This showed significant improvement in the degree of thrombus present and intravascular ultrasound evaluation revealed this was mostly chronic very adherent to the wall burden that was unlikely to be extracted. Next a evelyn wire was advanced via the IJ sheath and it was directed into the right iliac vein stent. A pair of Bard Livingston 16 x 40 angioplasty balloons were then advanced over each of the access wires. The left femoral angioplasty balloon was inflated to nominal for 3 minutes for multiple inflations across the entire the length of the treatment zone. In the segment of stents where there was stenosis on the right as well as within the inferior vena cava where stents were parallel to each other the right iliac angioplasty balloon was inflated to nominal simultaneously. After completing the angioplasty of the entirety of the treatment zones the balloons were withdrawn and repeat angiography revealed significant improvement with only minimal residual in-stent stenosis though there was some chronic thrombus inferior to the left external iliac vein stent. A Bard Livingston 14 x 40 was then advanced over the wire and positioned at this location inflated to nominal for 3 minutes then deflated and withdrawn. Repeat subtraction angiography revealed satisfactory resolution of this area of stenosis now with brisk contrast transit across all of the stented segments. He was felt that no further intervention was required and that we would refrain from stenting in the hopes that therapeutic anticoagulation would help to resolve and remodel the remaining thrombus. Wires and catheters then withdrawn. We aspirated from the IJ sheath to ensure that there was no significant thrombus retained. A 2-0 silk pursestring was then placed at the skin and the IJ sheath withdrawn followed by 10 minutes of manual pressure until hemostasis was obtained. The left femoral vein access sheath was then withdrawn and manual pressure held for 5 minutes until hemostasis was obtained. The patient was then awake from anesthesia taken the recovery room with dissipated observation in the PCU. Surgical Findings: See above Complications Complications: No
[2025-01-19] MEDS: Acetaminophen 500 MG Tablet 1000 MG PO ×2 (16:44→22:37)
[2025-01-19] MEDS: HEPARIN/D5w 25,000 UNITS 25,000 UNITS/250 ML IV.SOLN. 5 UNITS CONT INF (16:45)
--- NOTE | 2025-01-19 19:02 | NURSING ---
pt c/o neck pain after trip to bathroom. dr called dr asked for complete bedrest till morning and continue to monitor. pain meds on jan will suffice
[2025-01-19] MEDS: 0.9% Saline Lock 10 ML Syringe IV ×2 (19:33→22:39)
[2025-01-19] MEDS: HYDROmorphone Inj 0.2 MG/ML SYRINGE IV ×2 (19:33→22:37)
[2025-01-19 19:45] LABS: Partial Thromboplast Time 31.8 Seconds (24.1-36.2)
[2025-01-19] MEDS: HEPARIN/D5w 25,000 UNITS 25,000 UNITS/250 ML IV.SOLN. 10 UNITS CONT INF (19:59)
--- NOTE | 2025-01-19 19:59 | NURSING ---
Heparin gtt changed from continuous gtt at 5ml to 10 ml/hr per order for weight based rate.
[2025-01-20] MEDS: 0.45% Normal Saline 1,000 ML 100 ML IV (01:55)
[2025-01-20] MEDS: HYDROmorphone Inj 0.2 MG/ML SYRINGE IV (01:56)
[2025-01-20 02:03] LABS: Partial Thromboplast Time 33.8 Seconds (24.1-36.2)
[2025-01-20] MEDS: oxyCODONE 5 MG Tablet PO ×3 (04:11→13:51)
[2025-01-20 04:14] VITALS: BP 134/89; PULSE 85; RESP 18; TEMP 36.6; O2SAT 94
[2025-01-20] MEDS: Acetaminophen 500 MG Tablet 1000 MG PO ×2 (05:49→13:51)
--- NOTE | 2025-01-20 07:17 | PN.SURG_ITS ---
Objective Data Objective Data Vital Signs: Vital Signs Temp Pulse Resp BP Pulse Ox O2 Del Method O2 Flow Rate 97.8 F 85 18 134/89 H 94 Room Air 4 01/20/25 04:14 01/20/25 04:14 01/20/25 04:14 01/20/25 04:14 01/20/25 04:14 01/20/25 04:14 01/19/25 17:45 Oxygen Flow Rate (L/min) 4 Oxygen Delivery Method Room Air Weight: 255 lb Body Mass Index (BMI) 32.7 Intake & Output: Intake and Output for Last 24 Hours 01/19/25 01/19/25 01/20/25 00:59 23:59 23:59 Intake Total 1936. / 1936. 717.17 / 717.17 Balance / 717. / 717.17 Lab / Micro Data 01/19/25 07:48 01/19/25 07:48 Labs: Laboratory Results - last 24 hr 01/19/25 07:48: WBC 5.8, RBC 4.75, Hgb 14.0, Hct 41.8, MCV 88.0, MCH 29.5, MCHC 33.5, RDW Std Deviation 40.6, RDW Coeff of Alejo 12.7, Plt Count 217, MPV 8.9, Sodium 141, Potassium 3.8, Chloride 104, Carbon Dioxide 25.2, Anion Gap 12, BUN 24 H, Creatinine 1.09, Est GFR (MDRD) Non-Af 82, BUN/Creatinine Ratio 21.6 H, G lucose 103 H, Calcium 9.3 01/19/25 09:27: Activated Clotting Time 181 H 01/19/25 10:05: Activated Clotting Time 187 H 01/19/25 10:42: Activated Clotting Time 199 H 01/19/25 11:21: Activated Clotting Time 222 H 01/19/25 19:12: APTT 31.8 01/20/25 01:47: APTT 33.8
[2025-01-20 08:11] LABS: Absolute Lymphocyte Count 1.08 X10^3/uL (0.83-4.51); Basophil# 0.02 X10^3/uL; Basophil% 0.2 % (0-1); Hematocrit 35.5 % (40-54); Hemoglobin 11.9 g/dL (13.0-16.5); Lymphocyte # 1.08 X10^3/ul (0.83-4.51); Lymphocyte % 9.9 % (19-41); Mean Corp Hgb Conc 33.5 g/dL (32-36); Mean Corpuscular Hgb 29.8 pg (27.0-32.0); Mean Platelet Vol. 8.9 fl (6.2-12.0); Monocyte# 0.79 X10^3/uL; Monocyte% 7.2 % (0-10); NRBC Flagged by Analyzer 0 % (0-5); Neutrophil # 8.96 X10^3/uL (2.7-7.7); Neutrophil % 82.2 % (47-70); Platelet Count 172 K/mm3 (150-450); RBC Distribution Width CV 12.7 % (11.6-14.6); RBC Distribution Width SD 41.7 fl (35.1-43.9); Red Blood Count 3.99 M/mm3 (4.6-6.2); White Blood Count 10.9 K/mm3 (4.4-11.0)
[2025-01-20 08:49] VITALS: O2SAT 91
[2025-01-20 08:53] LABS: Partial Thromboplast Time 35.8 Seconds (24.1-36.2)
[2025-01-20 09:12] VITALS: BP 143/83; PULSE 86; RESP 17; TEMP 36.8; O2SAT 95
[2025-01-20] MEDS: Losartan Potassium 50 MG Tablet PO (09:17)
[2025-01-20] MEDS: Paroxetine 20 MG Tablet PO (09:17)
[2025-01-20] MEDS: Aspirin E.C. 81 MG Tablet PO (09:17)
[2025-01-20] MEDS: hydroCHLOROthiazide 12.5mg 12.5 MG PO (09:17)
[2025-01-20 10:31] LABS: Anion Gap 10 (5-15); BUN 16 mg/dL (4-19); BUN/Creat Ratio 16.7 RATIO (10-20); Calcium,Total 8.5 mg/dL (7.6-11.0); Carbon Dioxide 22.5 mmol/L (21.0-32.0); Chloride 103 mmol/L (98-108); Creatinine, Serum 0.95 mg/dL (0.70-1.20); EST Glomerular Filtration Rate 97 (>60); Estimated Creatinine Clearance 124.37 ml/min (50-250); Glucose 115 mg/dL (70-99); Potassium 3.7 mmol/L (3.3-5.1); Sodium Level 135 mmol/L (133-145)
[2025-01-20] MEDS: Enoxaparin 120 MG/0.8 ML Syringe SC (10:37)
[2025-01-20] MEDS: guaiFENesin 10 ML UDC (200MG/10ML) 20 ML PO (10:44)
--- NOTE | 2025-01-20 13:19 | PCM.DC.SUM ---
Providers Date of Admission: 01/19/25 Primary Care Physician: Dr. Rogelio Colvin MD Reason For Visit: Acute embolism and thrombosis of unspecified iliac Medications at Discharge Home Medications paroxetine HCl 20 mg tablet 1 tablet PO DAILY 02/13/23 valsartan 160 mg-hydrochlorothiazide 12.5 mg tablet 1 tablet PO DAILY 02/13/23 aspirin 81 mg tablet,delayed release 81 mg PO QDAY 01/02/25 enoxaparin 120 mg/0.8 mL subcutaneous syringe (Lovenox) 120 mg (0.8 mL) subcut Q12H 30 days #48 mL 01/15/25 benzonatate 100 mg capsule 100 mg PO TID PRN PRN Cough 14 days #42 caps 01/20/25 oxycodone 5 mg tablet 5 mg PO Q6H PRN PRN Pain Score 4-10 4 days #16 tabs 01/20/25 Hospital Course Summary of Care Provided Hospital Course: Mr. Lee Oh is a 49 y/o male who underwent planed venogram with Percutaneous mechanical thrombectomy of the left external iliac vein, common iliac vein, inferior vena cava and Angioplasty left common iliac vein, external iliac vein, right common iliac vein on 01/19/25; access was obtained via the R IJ and L femoral vein. He tolerated the procedure well, he was admitted to the PCU for heparin bridge and observation. He has had discomfort and swelling at the R IJ access site, exacerbated by his cough but stable overnight. The pain is well-managed with oxycodone. He did not sleep well and still feels a bit groggy but otherwise no complaints. He was transitioned from heparin to lovenox for discharge. He is discharged home is stable condition with planned follow-up in the office in 2 weeks. Physical Exam Const oriented x3 and no apparent distress Neck Neck Narrative: R IJ access site with stable ecchymosis, stable diffuse edema, soft to palpation Resp normal respiratory effort Cardio regular rate and regular rhythm Extremity Extremity Narrative: L groin puncture site with dry dressing C/D/I. No hematoma, minimal ecchymosis Skin no wounds Trauma: no lacerations or abrasions Weight / BMI Weight Weight: 255 lb Body Mass Index (BMI) 32.7 ABG / Lab / Microbiology Data 01/20/25 08:01 01/20/25 08:01 Laboratory: Laboratory Results - last 24 hr 01/19/25 19:12: APTT 31.8 01/20/25 01:47: APTT 33.8 01/20/25 08:01: WBC 10.9, RBC 3.99 L, Hgb 11.9 L, Hct 35.5 L, MCV 89.0, MCH 29.8, MCHC 33.5, RDW Std Deviation 41.7, RDW Coeff of Alejo 12.7, Plt Count 172, MPV 8.9, Immature Gran % (Auto) 0.500, Neut % (Auto) 82.2 H, Lymph % (Auto) 9.9 L, [place] % (Auto) 7.2, Eos % (Auto) 0.0, Baso % (Auto) 0.2, Absolute Neuts (auto) 9.0 H, Absolute Lymphs (auto) 1.08, Nucleated RBC % 0, APTT 35.8, Sodium 135, Potassium 3.7, Chloride 103, Carbon Dioxide 22.5, Anion Gap 10, BUN 16, Creatinine 0.95, Estim Creat Clear Calc 124.37, Est GFR (MDRD) Non-Af 97, BUN/Creatinine Ratio 16.7, Glucose 115 H, Calcium 8.5 D/C Instructions Discharge Diet: No restrictions May shower in (days): 1 Weight Bearing Status: Weight bearing as tolerated Lifting Restricted to (Lbs): 20 Lifting Restrictions: Do not lift greater than 20 pounds for 3 weeks Call your doctor if your incision/area has: Sudden Increased Bleeding, Increased Pain/ Swelling and Foul Smelling Discharge Call your doctor if you observe: Fever of 101 or Higher and Uncontrolled pain Remove Dressing in: 1 day DC O2, CPAP, BIPAP Needs Home O2 Discharge instructions: No Please Follow Up With: Teena Jacques PA When: 2 weeks Meaningful Use Info Meaningful Use Meaningful Use Diagnoses (Choose all that apply): None applicable Ischemic Stroke Statin Dosing Therapy Reference: STATIN DOSE THERAPY REFERENCE: * Patients > 75 years receive moderate or high dose statin therapy. * Patients 75 years or YOUNGER should receive HIGH intensity statin dose unless contraindicated. You will be required to document reason for non-treatment if statin daily dose does not meet guidelines. HIGH DOSE STATIN THERAPY DAILY Atorvastatin > than or = to 40 mg Rosuvastatin > than or = to 20 mg Amlodipine + Atorvastatin > than or = to 2.5/40 mg Ezetimibe + Simvastatin 10/80 mg Simvastatin 80mg Discharge Plan Admission Admit Date/Time: 01/19/25 13:06 Attending Provider: Bryn Mccall Primary Care Provider: Rogelio Colvin Chi Discharge Orders/Prescriptions Prescriptions: New benzonatate 100 mg Capsule 100 mg PO TID PRN PRN (Reason: Cough) 14 Days Qty: 42 0RF oxycodone 5 mg Tablet 5 mg PO Q6H PRN PRN (Reason: Pain Score 4-10) 4 Days Qty: 16 0RF Continued paroxetine HCl 20 mg tablet 1 tablet PO DAILY valsartan-hydrochlorothiazide 160-12.5 mg tablet 1 tablet PO DAILY aspirin 81 mg tablet,delayed release (DR/EC) 81 mg PO QDAY enoxaparin [Lovenox] 120 mg/0.8 mL syringe 120 mg subcut Q12H 30 Days Qty: 48 1RF Referrals / Follow Up: Rogelio Colvin Chi, MD [Primary Care Provider] - Disposition Disposition (needs filled in before D/C Order can be placed): Home, Self Care
[2025-01-20 14:39] VITALS: BP 147/96; PULSE 85; RESP 17; TEMP 36.8; O2SAT 93
== END 2025-01-20 13:27 | disposition home or self-care (01) ==
LOC: SDC 14:24 → PCU 14:24
PROVIDERS: Admitting Provider Surgery Trauma Surgery; PCP Family Medicine Geriatric Medicine; Referring Provider Surgery Trauma Surgery; Visit Provider Surgery Trauma Surgery
DX: T82.856A Stenosis of peripheral vascular stent, initial encounter (principal); I82.220 Acute embolism and thrombosis of inferior vena cava; I82.422 Acute embolism and thrombosis of left iliac vein; I82.402 Acute embolism and thrombosis of unspecified deep veins of left lower extremity; Z95.5 Presence of coronary angioplasty implant and graft; I10 Essential (primary) hypertension; Z86.718 Personal history of other venous thrombosis and embolism; Z79.899 Other long term (current) drug therapy; Z79.82 Long term (current) use of aspirin; F17.220 Nicotine dependence, chewing tobacco, uncomplicated; M54.10 Radiculopathy, site unspecified; M51.16 Intervertebral disc disorders with radiculopathy, lumbar region; R60.0 Localized edema; Y71.2 Prosthetic and other implants, materials and accessory cardiovascular devices associated with adverse incidents; T82.848A Pain due to vascular prosthetic devices, implants and grafts, initial encounter
CPT/HCPCS: 36010; 36415; 37187; 37248; 37249; 37252; 37253; 75825; 76937; 80048; 85025; 85027; 85347; 85730; 94640; 96361; 96365; 96366; 96372; 96375; 96376; 99221; 99252; C1725; C1753; C1757; C1769; C1887; C1894; Q9967; A4216; C1773; G0378; G0463; J2405

== ENCOUNTER → 2025-01-27 | Outpatient (CLI) | payer OTHER, SELFPAY ==
[2025-01-27 15:45] LABS: Hematocrit 45.1 % (40-54); Hemoglobin 15.1 g/dL (13.0-16.5); Mean Corp Hgb Conc 33.5 g/dL (32-36); Mean Corpuscular Volume 89.7 fL (80-94); Mean Platelet Vol. 9.3 fl (6.2-12.0); Platelet Count 328 K/mm3 (150-450); RBC Distribution Width CV 13.1 % (11.6-14.6); RBC Distribution Width SD 42.5 fl (35.1-43.9); Red Blood Count 5.03 M/mm3 (4.6-6.2); White Blood Count 7.8 K/mm3 (4.4-11.0)
[2025-01-27 17:09] LABS: Anion Gap 9 (5-15); BUN 19 mg/dL (4-19); BUN/Creat Ratio 18.3 RATIO (10-20); Calcium,Total 9.6 mg/dL (7.6-11.0); Carbon Dioxide 26.5 mmol/L (21.0-32.0); Chloride 101 mmol/L (98-108); Creatinine, Serum 1.02 mg/dL (0.70-1.20); EST Glomerular Filtration Rate 89 (>60); Glucose 106 mg/dL (70-99); Potassium 4.1 mmol/L (3.3-5.1); Sodium Level 137 mmol/L (133-145)
== END | disposition home or self-care (01) ==
LOC: LAB 14:18
PROVIDERS: PCP Family Medicine Geriatric Medicine; Visit Provider Physician Assistant
DX: Z48.812 Encounter for surgical aftercare following surgery on the circulatory system (principal)
CPT/HCPCS: 36415; 80048; 85027

== ENCOUNTER 2025-02-09 13:07 | Emergency (ER) | payer OTHER, SELFPAY ==
[2025-02-09 13:08] VITALS: BP 142/110; PULSE 84; RESP 18; TEMP 36.6; O2SAT 99; BMI 32.7
--- NOTE | 2025-02-09 14:43 | ED.VIS.BACK ---
HPI History of Present Illness Chief Complaint: Back Onset/Context/Timing Onset: Month(s) Context: Gradual Onset Timing: Continuous Quality: Aching (Arthritic) Location: Lumbar, Buttock and Left Leg (Left proximal thigh) Worsened by: improves with Movement Relieved by: Sitting and Bending Forward Associated Symptoms Associated Symptoms: Tingling and Radiation to Left Leg; Negative for Numbness, Radiation to Right Leg, Fever, Abdominal Pain, Dysuria, Unable to Ambulate, Unable to Transfer, Urinary Retention, Urinary Incontinence, Constipation or Fecal Incontinence Narrative Narrative: Patient presents with back pain that became worse today. Patient states it is gradually gotten worse. Patient states he has a history of prior back pain and sees Dr. Aguirre as well as Dr. Mccall. Patient states he has had a history of blood clots. Patient states that he was told that his vertebrae are pinching on a vein which causes his blood clots. Patient states that this pain is mainly over the lower lumbar area and radiates into the left thigh. Patient admits to some tingling into his left leg. Patient denies any weakness. Patient states it is better when he is able to sit up and arch his back forward. Patient states nothing seems to help with the pain. Patient denies any bowel or bladder changes. Patient denies any saddle anesthesia. Prior similar symptoms: Yes and With Prior Back Pain [facility] Medical History Wears glasses Marijuana use History of steroid therapy Arthritis Chewing tobacco nicotine dependence in remission History of pain when walking Hx of edema Hx of cardiovascular stress test DDD (degenerative disc disease), lumbar DVT (deep venous thrombosis) RSD lower limb HNP (herniated nucleus pulposus), lumbar Hypertension Hypertension Home Medications ?Medication ?Instructions ?Recorded ?Last Taken ?Type paroxetine HCl 20 mg tablet 1 tablet PO DAILY 02/13/23 01/18/25 History valsartan 160 1 tablet PO DAILY 02/13/23 01/18/25 History mg-hydrochlorothiazide 12.5 mg tablet aspirin 81 mg tablet,delayed 81 mg PO QDAY 01/02/25 01/18/25 History release enoxaparin 120 mg/0.8 mL 120 mg (0.8 mL) subcut Q12H 30 01/20/25 Unknown Rx subcutaneous syringe (Lovenox) days #48 mL oxycodone 5 mg tablet 5 mg PO Q6H PRN pain 3 days #12 02/09/25 Unknown Rx tabs Allergy/AdvReac Type Severity Reaction Status Date / Time No Known Allergies Allergy Verified 02/03/25 09:56 Family History Father CVA (cerebral vascular accident) Father Heart disease Other Bleeding disorder CAD (coronary artery disease) Hypertension Surgical History Hx of hernia repair History of femoral hernia repair Social History Smoking Status: Former smoker Smokeless tobacco user: chewing tobacco how long ago did patient quit smokin can every 4-5 days alcohol intake: never ROS ROS ED Constitutional Constitutional ED: Denies chills or fever(s) Eyes Eyes: Denies blurry vision or change in vision ENT ENT ED: Denies rhinorrhea or sore throat Cardiovascular Cardiovascular: Denies chest pain or palpitations Respiratory/Chest Respiratory/Chest: Denies cough or dyspnea Gastrointestinal Gastrointestinal: Reports nausea; Denies vomiting Genitourinary Genitourinary ED: Denies dysuria or hematuria Musculoskeletal Musculoskeletal: Reports back pain and neck pain Integumentary Denies abscess or rash Neurologic Neurologic: Denies headache(s) or weakness Allergic/Immunologic Allergic/Immunologic ED: Denies mouth swelling or urticaria EXAM Physical Exam Const Vital Signs: 02/09/25 13:08 02/09/25 15:50 02/09/25 16:59 Temperature 97.8 F 98.0 F Temperature Source Temporal Pulse Rate 84 79 72 Respiratory Rate 18 14 15 Blood Pressure 142/110 H 130/94 H Blood Pressure Mean 120 106 Pulse Ox 99 97 97 Oxygen Delivery Method Room Air Room Air Positive well nourished and well developed Constitutional Narrative: BMI is 32.7 General Appearance ED: well developed and NAD HEENT Reports moist mucous membranes Neck supple and no JVD Back/Spine Back/Spine Narrative: There is tenderness over the left lumbar paraspinal muscles. There is no midline tenderness. There is no bony crepitance or step-off. There is no edema or ecchymosis. Range of motion was limited in all motions of the lumbar spine secondary to pain. Strength is 5/5 bilaterally in the lower extremities. There are no sensory deficits noted. Deep tendon reflexes are 2/4 bilaterally in the lower extremities. Lumbar Spine / Lower Back: ROM limited Extremity Extremity Narrative: There is some mild left calf tenderness and edema. General Extremety ED: Yes edema and tenderness General Extremity: edema Neuro oriented x3 and no sensory deficits noted Sensorium / Orientation: alert Motor Exam: strength 5/5 throughout Deep Tendon Reflexes: Rt Patellar (L4): 2+, Lt Patellar (L4): 2+, Rt Ankle (S1): 2+ and Lt Ankle (S1): 2+ Deep Tendon Reflexes Back: Rt Patellar (L4): 2+, Lt Patellar (L4): 2+, Rt Ankle (S1): 2+ and Lt Ankle (S1): 2+ MDM MDM MDM Narrative Medical decision making narrative: Differential diagnosis includes lumbar radiculopathy, DVT, muscular strain, and coagulopathy. CBC will be obtained to assess for leukocytosis and anemia. Basic metabolic profile will be obtained to assess for electrolyte abnormality and renal function. PT with INR and PTT will be obtained to assess for coagulopathy. Venous duplex of the left lower extremity will be obtained to assess for DVT. Lab Data Attestation: I reviewed the patient's lab results. Lab results narrative: CBC was reviewed and was within normal limits. Basic metabolic profile was reviewed and was essentially within normal limits. PT with INR and PTT were reviewed and were within normal limits. Labs: Laboratory Results - last 24 hr 02/09/25 15:52 WBC 6.1 RBC 4.81 Hgb 14.2 Hct 42.9 MCV 89.2 MCH 29.5 MCHC 33.1 RDW Std Deviation 40.6 RDW Coeff of Alejo 12.4 Plt Count 307 MPV 9.2 Immature Gran % (Auto) 0.300 Neut % (Auto) 61.1 Lymph % (Auto) 26.4 [place] % (Auto) 10.2 H Eos % (Auto) 1.0 Baso % (Auto) 1.0 Absolute Neuts (auto) 3.7 Absolute Lymphs (auto) 1.61 Nucleated RBC % 0 PT 12.6 INR 0.9 APTT 30.6 Sodium 138 Potassium 4.3 Chloride 102 Carbon Dioxide 17.6 L Anion Gap 18 H BUN 15 Creatinine 0.96 Estim Creat Clear Calc 123.08 Est GFR (MDRD) Non-Af 95 BUN/Creatinine Ratio 15.1 Glucose 84 Calcium 9.4 Radiography Diagnostic Testing: Venous duplex of the left lower extremity was obtained. There is no evidence of DVT. The left femoral stent is patent. Treatment and Re-Evaluation Narrative: Patient was given a dose of morphine and Zofran. Patient was advised of his findings. Patient feeling better on reevaluation. Patient was given a prescription for a short course of Percocet. Patient was instructed to use ice to his back. Patient was instructed to follow-up with his primary care physician as well as his orthopedic spine surgeon in 5 to 7 days. Patient was instructed return if worse in any way. Patient understood and was agreeable with the plan. All questions were answered. Discharge Plan Triage Chief Complaint: Back ED Provider: Bryn Victor Dx/Rx/DC Orders Clinical Impression: Left lumbar radiculopathy, DDD (degenerative disc disease), lumbar Instructions: ED Back Pain (Acute or Chronic) Prescriptions: New oxycodone 5 mg tablet 5 mg PO Q6H PRN (Reason: pain) 3 Days Qty: 12 0RF No Action paroxetine HCl 20 mg tablet 1 tablet PO DAILY valsartan-hydrochlorothiazide 160-12.5 mg tablet 1 tablet PO DAILY aspirin 81 mg tablet,delayed release (DR/EC) 81 mg PO QDAY enoxaparin [Lovenox] 120 mg/0.8 mL syringe 120 mg subcut Q12H 30 Days Qty: 48 1RF Primary Care Provider: Rogelio Colvin Chi Referrals: Dung Aguirre MD [Med Staff - Active Staff] - 5-7 Days Rogelio Colvin Chi, MD [Primary Care Provider] - 5-7 Days Print Language: [place] Disposition Disposition: Home, Self Care Discharge Date/Time: 02/09/25 17:29
--- NOTE | 2025-02-09 15:36 | VDLE_ITS ---
Reason For Study Reason For Study: Left leg swelling RIGHT LEFT CFV is compressible, spontaneous, phasic, competent GSV is normal. and demonstrates normal augmentation. CIV normal phasic venous flow, stent noted. Procedure EIV has normal phasic venous flow. This is a venous duplex using B-mode, color flow and CFV is compressible, spontaneous, phasic, competent, spectral Doppler. and demonstrates normal augmentation. Exam performed in department. FV is partially compressible throughout with Compared to 11/24/2024, no significant changes. intraluminal echoes consistent with Chronic DVT. A preliminary report was called and/or faxed to . Normal venous flow noted. Valente. PopV is partially compressible with intraluminal echoes consistent with Chronic DVT. Normal venous flow noted. T/P trunk is partially compressible with intraluminal echoes consistent with Chronic DVT. Normal venous flow noted by color doppler. PTV is compressible. LT PerV is compressible. VL/Venous Duplex US, Unilateral Interpretation Summary Chronic deep vein thrombosis noted in the left femoral vein, popliteal vein, ti bioperoneal trunk vein. Patent left common and external iliac vein stents with normal venous flow patte rn. Ordering Physician: Bryn Victor Referring Physician: Rogelio Colvin Chi Performed By: Court Rod RVT
[2025-02-09 15:50] VITALS: PULSE 79; RESP 14; O2SAT 97
[2025-02-09] MEDS: Morphine 4 MG/ML Syringe IV (15:51)
[2025-02-09] MEDS: Ondansetron 4 MG/2 ML Vial IV (15:51)
[2025-02-09 16:21] LABS: Absolute Lymphocyte Count 1.61 X10^3/uL (0.83-4.51); Absolute Neutrophil Count 3.7 X10^3/uL (2.0-7.7); Basophil# 0.06 X10^3/uL; Eosinophil# 0.06 X10^3/uL; Hematocrit 42.9 % (40-54); Hemoglobin 14.2 g/dL (13.0-16.5); Lymphocyte # 1.61 X10^3/ul (0.83-4.51); Lymphocyte % 26.4 % (19-41); Mean Corp Hgb Conc 33.1 g/dL (32-36); Mean Corpuscular Hgb 29.5 pg (27.0-32.0); Mean Corpuscular Volume 89.2 fL (80-94); Mean Platelet Vol. 9.2 fl (6.2-12.0); Monocyte# 0.62 X10^3/uL; Monocyte% 10.2 % (0-10); NRBC Flagged by Analyzer 0 % (0-5); Neutrophil # 3.72 X10^3/uL (2.7-7.7); Neutrophil % 61.1 % (47-70); Platelet Count 307 K/mm3 (150-450); RBC Distribution Width CV 12.4 % (11.6-14.6); RBC Distribution Width SD 40.6 fl (35.1-43.9); Red Blood Count 4.81 M/mm3 (4.6-6.2); White Blood Count 6.1 K/mm3 (4.4-11.0)
[2025-02-09 16:48] LABS: International Normalized Ratio 0.9; Prothrombin Time (Protime)PT. 12.6 SECONDS (11.7-14.9)
[2025-02-09 16:49] LABS: Partial Thromboplast Time 30.6 Seconds (24.1-36.2)
[2025-02-09 16:50] LABS: Anion Gap 18 (5-15); BUN 15 mg/dL (4-19); BUN/Creat Ratio 15.1 RATIO (10-20); Calcium,Total 9.4 mg/dL (7.6-11.0); Carbon Dioxide 17.6 mmol/L (21.0-32.0); Chloride 102 mmol/L (98-108); Creatinine, Serum 0.96 mg/dL (0.70-1.20); EST Glomerular Filtration Rate 95 (>60); Estimated Creatinine Clearance 123.08 ml/min (50-250); Glucose 84 mg/dL (70-99); Potassium 4.3 mmol/L (3.3-5.1); Sodium Level 138 mmol/L (133-145)
[2025-02-09 16:59] VITALS: BP 130/94; PULSE 72; RESP 15; TEMP 36.7; O2SAT 97
== END 2025-02-09 17:29 | disposition home or self-care (01) ==
PROVIDERS: Emergency Provider Emergency Medicine; PCP Family Medicine Geriatric Medicine; Visit Provider Emergency Medicine
DX: M51.16 Intervertebral disc disorders with radiculopathy, lumbar region (principal); Z87.891 Personal history of nicotine dependence; Z86.718 Personal history of other venous thrombosis and embolism
CPT/HCPCS: 80048; 85025; 85610; 85730; 93971; 96374; 96375; 99284; A4216; J2405

== ENCOUNTER 2025-03-02 16:32 | Inpatient (IN) | payer OTHER, SELFPAY ==
[2025-03-02 16:15] VITALS: BMI 32.3
[2025-03-02 16:36] VITALS: BP 161/94; PULSE 76; RESP 16; TEMP 36.8; O2SAT 99
--- NOTE | 2025-03-02 17:47 | PCM.HP.STD ---
HPI - General General Date of Admission: 03/02/25 HPI Narrative DELTA CHEEK, is a 49 M who presents with prior extensive DVTs that required thrombectomy and iliac vein stenting. Later suffered stent thrombosis that was treated with thrombectomy with some residual thrombus within stent remaining. Presents now for heparin bridge for venogram to assess for thrombus resolution vs further intervention. [facility] Medical History Wears glasses Marijuana use History of steroid therapy Arthritis Chewing tobacco nicotine dependence in remission History of pain when walking Hx of edema Hx of cardiovascular stress test DDD (degenerative disc disease), lumbar DVT (deep venous thrombosis) RSD lower limb HNP (herniated nucleus pulposus), lumbar Hypertension Hypertension Home Medications ?Medication ?Instructions ?Recorded ?Last Taken ?Type paroxetine HCl 20 mg tablet 1 tablet PO DAILY 02/13/23 01/18/25 History valsartan 160 1 tablet PO DAILY 02/13/23 01/18/25 History mg-hydrochlorothiazide 12.5 mg tablet aspirin 81 mg tablet,delayed 81 mg PO QDAY 01/02/25 01/18/25 History release enoxaparin 120 mg/0.8 mL 120 mg (0.8 mL) subcut Q12H 30 01/20/25 Unknown Rx subcutaneous syringe (Lovenox) days #48 mL Allergy/AdvReac Type Severity Reaction Status Date / Time No Known Allergies Allergy Verified 03/02/25 16:28 Family History Father CVA (cerebral vascular accident) Father Heart disease Other Bleeding disorder CAD (coronary artery disease) Hypertension Surgical History Hx of hernia repair History of femoral hernia repair Social History Smoking Status: Former smoker Smokeless tobacco user: chewing tobacco how long ago did patient quit smokin can every 4-5 days alcohol intake: never ROS Constitutional Constitutional: Denies chills, fever(s), frequent falls, lethargy or weakness Eyes Eyes: Denies blind spots, change in vision or loss of vision ENT HEENT: Denies bleeding gums, hoarseness or sore throat Cardiovascular Cardiovascular: Reports leg edema; Denies abdominal pain, bluish discoloration of hand/feet, chest pain with activity, claudication, cold extremities, cyanosis, dyspnea on exertion, erythema on extremities, irregular heart rhythm, leg ulcers, numbness in extremities or weakness in extremities Respiratory/Chest Respiratory/Chest: Denies cough, excessive phlegm production, shortness of breath at rest, shortness of breath with exertion or wheezing Gastrointestinal Gastrointestinal: Denies anorexia, change in stool character, constipation, diarrhea, melena or rectal bleeding Genitourinary Genitourinary: Denies dysuria or hematuria Musculoskeletal Musculoskeletal: Reports back pain; Denies abnormal gait Integumentary Integumentary: Reports other Details: ; Denies erythema, non-healing lesions or wounds Neurologic Neurologic: Denies abnormal speech, focal weakness, headache(s), loss of vision, numbness, paresthesias or sensory deficit Hematologic/Lymphatic Hematologic/Lymphatic: Denies easy bleeding, easy bruising or lymphadenopathy Vital Signs Vital Signs Vital Signs: 03/02/25 16:36 Temperature 98.2 F Temperature Source Oral Pulse Rate 76 Respiratory Rate 16 Blood Pressure 161/94 H Blood Pressure Mean 116 Blood Pressure Source Monitor Blood Pressure Position Semi-Fowlers Blood Pressure Location Left Forearm Pulse Ox 99 Oxygen Delivery Method Room Air Weight Weight: 252 lb 6.868 oz Body Mass Index (BMI) 32.3 Physical Exam Const alert, oriented x3, no apparent distress and healthy appearing General Appearance: cooperative; Negative for combative or lethargic Orientation / Consciousness: awake Exam Limitations: no limitations HEENT Head and Scalp: normocephalic and atraumatic Eyes EOMs intact bilaterally General Eye: normal appearance of both eyes Neck full ROM General: trachea midline Resp normal respiratory effort and no use of accessory muscles Effort and Inspection: Negative for labored, stridor or audible wheezes Cardio regular rate and regular rhythm Back/Spine Cervical Spine: cervical ROM normal Extremity full ROM, normal capillary refill and no clubbing, cyanosis or edema Skin no rashes or lesions noted and no wounds Neuro oriented x3, CN's II-XII intact bilaterally, no focal motor deficits and no sensory deficits noted Psych thought process normal, cooperative, affect normal, speech normal and activity/motor behavior normal Assessment & Plan Assessment/Plan (1) Iliac DVT (deep venous thrombosis): QUALIFIERS: Chronicity: chronic Laterality: left Qualified Code(s): I82.522 - 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
[2025-03-02] MEDS: HEPARIN/D5w 25,000 UNITS 25,000 UNITS/250 ML IV.SOLN. 10 UNITS CONT INF (17:50)
[2025-03-02 18:16] LABS: Prothrombin Time (Protime)PT. 13.6 SECONDS (11.7-14.9)
[2025-03-02 19:24] LABS: Partial Thromboplast Time 31.1 Seconds (24.1-36.2)
[2025-03-02 21:34] VITALS: BP 161/77; PULSE 70; RESP 18; TEMP 36.3; O2SAT 97
[2025-03-02 21:41] VITALS: BP 127/76
[2025-03-02 23:14] VITALS: BMI 32.3
[2025-03-03] VITALS (26 sets, daily range): BP systolic 113–160; BP diastolic 79–103; PULSE 60–111; RESP 16–20; TEMP 36.2–36.9; O2SAT 92–99; BMI 32.3
[2025-03-03 00:20] LABS: Partial Thromboplast Time 43.8 Seconds (24.1-36.2)
[2025-03-03] MEDS: 0.45% Normal Saline 1,000 ML 75 ML IV ×2 (00:26→19:54)
[2025-03-03 07:53] LABS: Absolute Lymphocyte Count 1.31 X10^3/uL (0.83-4.51); Absolute Neutrophil Count 2.1 X10^3/uL (2.0-7.7); Basophil# 0.04 X10^3/uL; Eosinophil# 0.06 X10^3/uL; Eosinophils% 1.5 % (0-5); Hematocrit 38.6 % (40-54); Lymphocyte # 1.31 X10^3/ul (0.83-4.51); Lymphocyte % 33.1 % (19-41); Mean Corp Hgb Conc 33.7 g/dL (32-36); Mean Corpuscular Hgb 29.3 pg (27.0-32.0); Mean Corpuscular Volume 87.1 fL (80-94); Mean Platelet Vol. 9.1 fl (6.2-12.0); Monocyte# 0.43 X10^3/uL; Monocyte% 10.9 % (0-10); NRBC Flagged by Analyzer 0 % (0-5); Neutrophil # 2.11 X10^3/uL (2.7-7.7); Neutrophil % 53.2 % (47-70); Platelet Count 210 K/mm3 (150-450); RBC Distribution Width CV 12.3 % (11.6-14.6); RBC Distribution Width SD 39.3 fl (35.1-43.9); Red Blood Count 4.43 M/mm3 (4.6-6.2)
[2025-03-03 08:11] LABS: Partial Thromboplast Time 42.5 Seconds (24.1-36.2)
[2025-03-03] MEDS: Aspirin E.C. 81 MG Tablet PO (08:28)
[2025-03-03 08:36] LABS: Anion Gap 10 (5-15); BUN 12 mg/dL (4-19); BUN/Creat Ratio 13.1 RATIO (10-20); Calcium,Total 9.1 mg/dL (7.6-11.0); Carbon Dioxide 26.1 mmol/L (21.0-32.0); Chloride 104 mmol/L (98-108); Creatinine, Serum 0.94 mg/dL (0.70-1.20); EST Glomerular Filtration Rate 98 (>60); Estimated Creatinine Clearance 125.08 ml/min (50-250); Glucose 99 mg/dL (70-99); Potassium 3.9 mmol/L (3.3-5.1); Sodium Level 140 mmol/L (133-145)
--- NOTE | 2025-03-03 10:18 | PCM.PRE.AN2 ---
ASA Classification* ASA Classification ASA Classification: 3 Assessment & Plan Anesthesia* Anesthesia Assessment Anesthesia Assessment: Discussed sedation and/or anesthesia options, risks, benefits, and alternatives with patient/parents/legal guardian/POA. Questions invited. The patient/parents/legal guardian/POA seems to understand and agrees to proceed with anesthesia plan. Reviewed the physical assessment, medical history, allergy history and patient home medications list prior to surgery/procedure/anesthetic and documented any changes. Performed airway and anesthesia risk assessments. Anesthesia Type Anesthesia Type: General History Source History Obtained from:: Patient and Chart Anesthesia Focused Assessment* Temperature: 97.7 F Pulse Rate: 61 Blood Pressure: 134/91 Respiratory Rate: 16 Pulse Ox: 99 Oxygen Delivery Method: Room Air Airway Assessment Mouth opens: >3 cm Mallampati Score: I Teeth Condition: Caps/Crowns (Patient has couple crowns including #9. They are tight.) and Missing (Patient is missing 4 teeth. Rest are tight.) Neck Range of motion (ROM): Limited ROM Focused Labs Anesthesia Preop lab: CBC WBC 4.0 K/mm3 (4.4-11.0) L 03/03/25 06:35 03/03/25 RBC 4.43 M/mm3 (4.6-6.2) L 03/03/25 06:35 03/03/25 Hgb 13.0 g/dL (13.0-16.5) 03/03/25 06:35 03/03/25 Hct 38.6 % (40-54) L 03/03/25 06:35 03/03/25 Plt Count 210 K/mm3 (150-450) 03/03/25 06:35 03/03/25 CHEMISTRY Potassium 3.9 mmol/L (3.3-5.1) 03/03/25 06:35 03/03/25 Sodium 140 mmol/L (133-145) 03/03/25 06:35 03/03/25 BUN 12 mg/dL (4-19) 03/03/25 06:35 03/03/25 Creatinine 0.94 mg/dL (0.70-1.20) 03/03/25 06:35 03/03/25 Glucose 99 mg/dL (70-99) 03/03/25 06:35 03/03/25 POC Glucose 150 mg/dL (74-106) H 01/11/23 13:58 01/11/23 TSH 1.83 uIU/mL (0.358-3.74) 05/02/24 10:55 05/02/24 COAG PT 13.6 SECONDS (11.7-14.9) 03/02/25 17:45 03/02/25 Pre-Assessment Diagnosis/Proposed Procedure Planned Operative Procedure(s): Venogram with possible intervention. Anesthesia History Anesthesia History - nursing scheduler: Anesthesia History - nursing scheduler Hx Hospitalization No 01/26/25 08:20 Any Problems With Anesthesia No 03/02/25 23:52 Cholinesterase deficiency No 03/02/25 23:52 You/Your Family Experience No 03/02/25 23:52 fever (hyperthermia) with Relationship Recent Exposure to Contagious No 03/02/25 23:52 Disease Does patient have nerve No 03/02/25 23:52 stimulator Patient instructed to have No 03/02/25 23:52 device shut off --Does patient have Pacemaker No 03/02/25 23:14 or ICD? When Was Last Pacemaker Check QUESTION #4 FULL TEXT: You/Your Family Experience fever (hyperthermia) with Anesthesia Last Oral Intake Last Oral intake: Last Oral Intake NPO since 00:00 03/02/25 23:14 Meds taken in AM with sips of water? Meds patient instructed to take am of surgery PONV PONV - nursing scheduler: PONV - nursing scheduler Female HX of Motion Sickness HX of N/V After Surgery Non-Smoker Duration of Surgery greater than 60 minutes Number of Risk Factors PONV Score Height & Weight Height & Weight: Anesthesia: Height & Weight Height 6 ft 2 in 03/02/25 23:14 Weight: 114.5 kg 03/02/25 23:14 Body Mass Index (BMI) 32.3 03/02/25 23:14 Respiratory Assessment Respiratory Assessment - nursing scheduler: Respiratory Tract Infection Hx - nursing scheduler Hx Respiratory Tract Infection No 03/02/25 23:52 STOP Sleep Apnea STOP Sleep Apnea - nursing scheduler: STOP Sleep Apnea - nursing scheduler Hx Hypertension No 03/02/25 16:15 Hx Sleep Apnea No 03/02/25 16:15 CPAP BIPAP Do you snore loudly (louder No 03/02/25 16:15 than talking or can be heard Do you often feel tired/ No 03/02/25 16:15 fatigued/ sleepy during daytime? Has anyone observed you stop No 03/02/25 16:15 breathing during sleep? STOP Results Negative 03/02/25 16:15 QUESTION #5 FULL TEXT : Do you snore loudly (louder than talking or can be heard through closed doors)? 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 Specify any problems Hx of Preganancy in last 3 N/A 03/02/25 16:15 Months Nurse Filling Out Transfusion [email or web address] 03/02/25 16:15 & Questions: Date: 03/02/25 03/02/25 16:15 Time: 16:21 03/02/25 16:15 Patient unable to answer at this time (ie. confused, unrespo /Reproduction History /Reproductive History - nursing scheduler: /Reproductive Hx- nursing scheduler Hx Now No 03/02/25 23:52 Gestational Age (in weeks): EDC: Hx Hx Para Hx Section SAB No 03/02/25 23:52 Active Medications Active Medications: Current Medications Generic Name Dose Route Start Last Admin Trade Name Freq PRN Reason Stop Dose Admin Acetaminophen 1,000 mg 03/02/25 22:00 03/03/25 06:55 Acetaminophen 500 Mg Tablet PO Not Given Q8 KANE Al Hydroxide/Mg Hydroxide 30 ml 03/02/25 16:38 Mag Hydrox/Al Hydrox/Simeth 30 Ml Udc PO Q6H PRN PRN Gastric Burning Albuterol Sulfate 2.5 mg 03/02/25 16:38 Albuterol 2.5 Mg/3 Ml Vial.Neb. INHALATION Q2H PRN PRN SOB &/OR WHEEZING Aspirin 81 mg 03/03/25 08:00 03/03/25 08:28 Aspirin E.C. 81 Mg Tablet PO 81 mg BREAKFAST KANE Administration Docusate Sodium 100 mg 03/02/25 16:38 Docusate Sodium 100 Mg Capsule PO BID PRN PRN Constipation Guaifenesin 20 ml 03/02/25 16:38 Guaifenesin 10 Ml Udc (200mg/10ml) PO Q4H PRN PRN COUGH Heparin Sodium (Porcine) 0 unit 03/02/25 17:25 Heparin Injection (Vial) 5,000 Unit/Ml Vial IV UD PRN dose adjustment Protocol Sodium Chloride 100 mls @ 15 mls/hr 03/02/25 16:27 IV .Q6H40M PRN Saline Flush Sodium Chloride 100 mls @ 15 mls/hr 03/02/25 16:27 IV .Q6H40M PRN Additional IVPB Infusion Sodium Chloride 1,000 mls @ 75 mls/hr 03/03/25 00:01 03/03/25 09:30 IV 0 mls/hr .[id number] KANE Infusion Sodium Chloride 1,000 mls @ 15 mls/hr 03/02/25 16:38 03/02/25 17:21 IV Not Given .Q48H KANE Heparin Sodium/Dextrose 25,000 units in 250 mls @ 10 mls/hr 03/02/25 17:30 03/03/25 08:29 CONT INF 1,200 units/hr .Q25H KANE 12 mls/hr Titration Protocol As Directed Sodium Chloride 1,000 mls @ 15 mls/hr 03/03/25 10:10 IV .Q48H KANE Ondansetron HCl 4 mg 03/02/25 16:38 Ondansetron 4 Mg/2 Ml Vial IV Q8H PRN PRN NAUSEA/VOMITING Oxycodone HCl 2.5 - 5 mg 03/02/25 16:38 Oxycodone 5 Mg Tablet PO Q4H PRN PRN Pain Score 4-10 Paroxetine HCl 20 mg 03/03/25 10:00 Paroxetine 20 Mg Tablet PO DAILY KANE Sodium Chloride 10 - 40 ml 03/02/25 16:27 0.9% Saline Lock 10 Ml Syringe IV UD PRN SALINE FLUSH Throat Lozenges 1 lozenge 03/02/25 16:38 Benzocaine/Menthol 1 Lozenge MUCOUS MEM Q2H PRN PRN SORE THROAT PFSH Medical History Wears glasses Marijuana use History of steroid therapy Arthritis Chewing tobacco nicotine dependence in remission History of pain when walking Hx of edema Hx of cardiovascular stress test DDD (degenerative disc disease), lumbar DVT (deep venous thrombosis) RSD lower limb HNP (herniated nucleus pulposus), lumbar Hypertension Hypertension Home Medications ?Medication ?Instructions ?Recorded ?Last Taken ?Type paroxetine HCl 20 mg tablet 1 tablet PO DAILY 02/13/23 01/18/25 History valsartan 160 1 tablet PO DAILY 02/13/23 01/18/25 History mg-hydrochlorothiazide 12.5 mg tablet aspirin 81 mg tablet,delayed 81 mg PO QDAY 01/02/25 01/18/25 History release enoxaparin 120 mg/0.8 mL 120 mg (0.8 mL) subcut Q12H 30 01/20/25 Unknown Rx subcutaneous syringe (Lovenox) days #48 mL Allergy/AdvReac Type Severity Reaction Status Date / Time No Known Allergies Allergy Verified 03/02/25 16:28 Family History Father CVA (cerebral vascular accident) Father Heart disease Other Bleeding disorder CAD (coronary artery disease) Hypertension Surgical History Hx of hernia repair History of femoral hernia repair Social History Smoking Status: Former smoker Smokeless tobacco user: chewing tobacco how long ago did patient quit smokin can every 4-5 days alcohol intake: never Review of Systems (Anesthesia) ROS Narrative System reviewed and no additional complaints, except as documented.
[2025-03-03] MEDS: 0.9% Normal Saline (1000mL) 1,000 ML 15 ML IV (10:23)
--- NOTE | 2025-03-03 12:32 | OP.PCM_ITS ---
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 He recently had thrombosis of his left common and external iliac vein stents requiring thrombectomy which yielded overall a satisfactory result though there was some residual subacute appearing thrombus within the lumen of the stents. He has been maintained on Lovenox for approximately 6 weeks and returns now for venogram to assess the status of his remnant thrombus and potential need for any further invention. Description of procedure: Upon obtaining form consent and verification correct patient procedure and site the patient was taken to the [facility] where he was placed under general anesthesia. He was then positioned prepped and draped in usual sterile fashion a time was performed. The left common femoral vein was then accessed under ultrasound guidance with a micropuncture needle wire. This was exchanged for micropuncture sheath through which hand-injection ilio caval venogram was performed revealing satisfactory positioning no extravasation or dissection. This also revealed patent left common and external iliac vein stents with stenosis of the inferior aspect of the previously placed stents similar to at completion of his prior procedure. Through the micropuncture sheath Bentson wire was advanced and the micropuncture sheath exchanged for a [address] [place] sheath. Through the 10 [place] sheath the Bentson wire was navigated through the lumen of the iliac vein stents into the inferior vena cava. Intravascular ultrasound probe was then advanced and recorded pullback performed of the IVC, left common iliac vein, left external iliac vein. This confirmed position within the true lumen of the stent with no transit outside of the stent struts. This also revealed approximately 39% stenosis of the superior aspect of the common iliac vein stent and 52% stenosis of the inferior aspect of the external iliac vein stent. It was felt that the residual in-stent stenosis at the inferior aspect warranted treatment so the patient was then heparinized allowed to circulate for 3 minutes. While this was circulating under ultrasound guidance the right common femoral vein was accessed with a micropuncture needle wire and exchanged for micropuncture sheath. Through this hand-injection ilio caval venogram was performed revealing satisfactory positioning no extravasation or dissection. This also revealed brisk contrast transit with no significant luminal irregularity or stenosis within the right iliac vein stents. It was felt that no upsize of her sheath was warranted as we did not intend to perform any intervention and there was no suspicion of any significant thrombus or stenosis. Next a [employer] [place] 16 x 40 angioplasty balloon was advanced centered on the external iliac vein stenosis and inflated for multiple inflations. This was then withdrawn and a [place]born XXL 18 x 40 angioplasty balloon was again advanced and inflated for multiple inflations centered on the area of stenosis. Repeat venogram revealed significant improvement in the degree of stenosis with only minimal residual. The intravascular ultrasound probe was then readvanced and the area of intervention assessed. This revealed now 37% residual in-stent stenosis. Given this residual is felt that a new stent was not warranted and no further invention would be undertaken. Wires and catheters then withdrawn and a silk pursestring was placed at the access site and the sheath removed followed by 5 minutes of minute pressure. The right femoral micropuncture sheath was then removed and pressure held for 5 minutes until hemostasis was obtained. The patient was then taken the recovery room with anticipated return to the PCU for bedrest and recovery. Surgical Findings: see above Complications Complications: No
--- NOTE | 2025-03-03 13:05 | PCM.POST.ANE ---
Anesthesia: Postop Eval I Current Vital Signs Temperature: 97.5 F Pulse Rate: 62 Blood Pressure: 127/89 Respiratory Rate: 20 Pulse Ox: 95 Oxygen Delivery Method: Room Air Assessment Airway patent: Yes Spontaneous unlabored respirations: Yes Mental status: Awake and Calm nausea: No Vomiting: No Anesthesia Complication: No Fluid Hydration Crystalloid volume administer (ml): 1,100 Total IV fluid infused: 1,100 Progress Note Anesthesia document: Postop Eval 1 completed: Yes
[2025-03-03 16:49] LABS: Partial Thromboplast Time 49.4 Seconds (24.1-36.2)
[2025-03-03] MEDS: Acetaminophen 500 MG Tablet 1000 MG PO ×2 (17:54→22:08)
[2025-03-03] MEDS: oxyCODONE 5 MG Tablet PO (17:54)
[2025-03-03] MEDS: HEPARIN/D5w 25,000 UNITS 25,000 UNITS/250 ML IV.SOLN. 15 UNITS CONT INF (18:21)
--- NOTE | 2025-03-03 20:18 | POSTOPAN2_ITS ---
Anesthesia Postop Eval I Sum Postop Eval Completion status Anesthesia document: Postop Eval 1 completed: Yes Anesthesia Postop Eval I Summary Anesthesia Postop Eval I Summary: Anesthesia Postop Eval I: Assessment Summary Airway patent Yes 03/03/25 13:05 ANTIQUE FURNITURE [email or web address] Spontaneous unlabored Yes 03/03/25 13:05 ANTIQUE FURNITURE [email or web address] respirations Mental status Awake,Calm 03/03/25 13:05 ANTIQUE FURNITURE [email or web address] nausea No 03/03/25 13:05 ANTIQUE FURNITURE [email or web address] Vomiting No 03/03/25 13:05 ANTIQUE FURNITURE [email or web address] Anesthesia Postop Eval I: Fluid Summary Crystalloid volume administer 1,100 03/03/25 13:05 ANTIQUE FURNITURE [email or web address] (ml) Colloids volume administered ( ml) Blood Product volume administered (ml) Total IV fluid infused 1,100 03/03/25 13:05 ANTIQUE FURNITURE [email or web address] Anesthesia Postop Eval I: Summary Notes Anesthesia Complication No 03/03/25 13:05 ANTIQUE FURNITURE [email or web address] Anesthesia Complication Comment: Post-operative progress note Anesthesia: Postop Eval II Evaluation Mental status: Awake and Calm Pain Level: 1 nausea: No Vomiting: No Complications Anesthesia Complication: No
--- NOTE | 2025-03-03 20:18 | PCM.POSTANE2 ---
Anesthesia Postop Eval I Sum Postop Eval Completion status Anesthesia document: Postop Eval 1 completed: Yes Anesthesia Postop Eval I Summary Anesthesia Postop Eval I Summary: Anesthesia Postop Eval I: Assessment Summary Airway patent Yes 03/03/25 13:05 SMALL [email or web address] Spontaneous unlabored Yes 03/03/25 13:05 SMALL [email or web address] respirations Mental status Awake,Calm 03/03/25 13:05 SMALL [email or web address] nausea No 03/03/25 13:05 SMALL [email or web address] Vomiting No 03/03/25 13:05 SMALL [email or web address] Anesthesia Postop Eval I: Fluid Summary Crystalloid volume administer 1,100 03/03/25 13:05 SMALL [email or web address] (ml) Colloids volume administered ( ml) Blood Product volume administered (ml) Total IV fluid infused 1,100 03/03/25 13:05 SMALL [email or web address] Anesthesia Postop Eval I: Summary Notes Anesthesia Complication No 03/03/25 13:05 SMALL [email or web address] Anesthesia Complication Comment: Post-operative progress note Anesthesia: Postop Eval II Evaluation Mental status: Awake and Calm Pain Level: 1 nausea: No Vomiting: No Complications Anesthesia Complication: No
[2025-03-03] MEDS: Methocarbamol 750 MG Tablet 1500 MG PO (20:28)
[2025-03-03] MEDS: oxyCODONE 5 MG Tablet 10 MG PO (22:08)
[2025-03-03 22:45] LABS: Partial Thromboplast Time 44.6 Seconds (24.1-36.2)
[2025-03-03] MEDS: Heparin Injection (Vial) 5,000 UNIT/ML VIAL IV (22:59)
[2025-03-04 02:58] VITALS: BP 150/92; PULSE 88; RESP 18; TEMP 36.4; O2SAT 95
[2025-03-04] MEDS: oxyCODONE 5 MG Tablet 10 MG PO ×2 (02:58→08:30)
[2025-03-04 05:45] LABS: Partial Thromboplast Time 63.9 Seconds (24.1-36.2)
[2025-03-04 08:06] VITALS: BP 141/88; PULSE 80; RESP 18; TEMP 36.1; O2SAT 99
--- NOTE | 2025-03-04 08:11 | PCM.DC.SUM ---
Providers Date of Admission: 03/02/25 Primary Care Physician: Dr. 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 Oh this morning. He endorsed his chronic back pain and expected discomfort at the groin access site, otherwise no complaints. Methocarbamol and increased oxycodone were effective overnight. No bleeding/ecchymosis/focal edema at the access sites. Medications at Discharge Home Medications paroxetine HCl 20 mg tablet 1 tablet PO DAILY 02/13/23 valsartan 160 mg-hydrochlorothiazide 12.5 mg tablet 1 tablet PO DAILY 02/13/23 aspirin 81 mg tablet,delayed release 81 mg PO QDAY 01/02/25 enoxaparin 120 mg/0.8 mL subcutaneous syringe (Lovenox) 120 mg (0.8 mL) subcut Q12H 30 days #48 mL 01/20/25 acetaminophen 500 mg tablet 1,000 mg (2 x 500 mg) PO Q8 #0 tabs 03/04/25 docusate sodium 100 mg capsule 100 mg PO BID PRN PRN Constipation #0 caps 03/04/25 methocarbamol 750 mg tablet 1,000 mg (1.3333 x 750 mg) PO Q6H PRN PRN Muscle Spasm 7 days #28 tabs 03/04/25 oxycodone 5 mg tablet 5 - 10 mg (1 - 2 x 5 mg) PO Q8H PRN PRN Pain Score 4-10 7 days #42 tabs 03/04/25 Hospital Course Summary of Care Provided Hospital Course: Mr. Lee Oh is a 49 y/o male who was admitted 03/02/25 for heparin bridge to planned venogram with left iliac vein angioplasty performed on 03/03/25. Post-procedure he was returned to PCU for heparin bridge back to lovenox. He tolerated the procedure well. He had no adverse bleeding on therapeutic heparin. He was transitioned back to lovenox and stable for discharge to his home today 03/04/25 with planned office followup in 1-2 weeks for suture removal. Physical Exam Const oriented x3 and no apparent distress Resp normal respiratory effort Cardio regular rate and regular rhythm Extremity Extremity Narrative: R groin access site with pressure dressing intact, dried drainage within prior outline, no new drainage; no focal edema or ecchymosis, soft to palpation L groin access site with pressure dressing C/D/I; no focal edema or ecchymosis, soft to palpation Bilateral pedal pulses palpable Skin no rashes or lesions noted Weight / BMI Weight Weight: 252 lb 6.868 oz Body Mass Index (BMI) 32.3 ABG / Lab / Microbiology Data 03/03/25 06:35 03/03/25 06:35 Laboratory: Laboratory Results - last 24 hr 03/03/25 16:25: APTT 49.4 H 03/03/25 22:20: APTT 44.6 H 03/04/25 05:05: APTT 63.9 H D/C Instructions Discharge Diet: No restrictions May shower in (days): 1 Weight Bearing Status: Weight bearing as tolerated Lifting Restricted to (Lbs): 20 Lifting Restrictions: Do not lift greater than 20 pounds for 3 weeks Call your doctor if your incision/area has: Sudden Increased Bleeding, Increased Pain/ Swelling and Foul Smelling Discharge Call your doctor if you observe: Fever of 101 or Higher and Uncontrolled pain Remove Dressing in: 1 day Additional Dressing/Incision Instructions: Do not submerge the groin access sites such as to take a bath for 3 weeks DC O2, CPAP, BIPAP Needs Home O2 Discharge instructions: No Please Follow Up With: Teena Jacques PA When: 1-2 weeks for suture removal Meaningful Use Info Meaningful Use Meaningful Use Diagnoses (Choose all that apply): None applicable Ischemic Stroke Statin Dosing Therapy Reference: STATIN DOSE THERAPY REFERENCE: * Patients > 75 years receive moderate or high dose statin therapy. * Patients 75 years or YOUNGER should receive HIGH intensity statin dose unless contraindicated. You will be required to document reason for non-treatment if statin daily dose does not meet guidelines. HIGH DOSE STATIN THERAPY DAILY Atorvastatin > than or = to 40 mg Rosuvastatin > than or = to 20 mg Amlodipine + Atorvastatin > than or = to 2.5/40 mg Ezetimibe + Simvastatin 10/80 mg Simvastatin 80mg Discharge Plan Admission Admit Date/Time: 04/21/25 16:32 Attending Provider: Bryn Mccall Primary Care Provider: Rogelio Colvin Chi Discharge Orders/Prescriptions Prescriptions: New acetaminophen 500 mg Tablet 1,000 mg PO Q8 Qty: 0 0RF docusate sodium 100 mg Capsule 100 mg PO BID PRN PRN (Reason: Constipation) Qty: 0 0RF methocarbamol 750 mg Tablet 1,000 mg PO Q6H PRN PRN (Reason: Muscle Spasm) 7 Days Qty: 28 0RF oxycodone 5 mg Tablet 5 - 10 mg PO Q8H PRN PRN (Reason: Pain Score 4-10) 7 Days Qty: 42 0RF Continued paroxetine HCl 20 mg tablet 1 tablet PO DAILY valsartan-hydrochlorothiazide 160-12.5 mg tablet 1 tablet PO DAILY aspirin 81 mg tablet,delayed release (DR/EC) 81 mg PO QDAY enoxaparin [Lovenox] 120 mg/0.8 mL syringe 120 mg subcut Q12H 30 Days Qty: 48 1RF Referrals / Follow Up: Rogelio Colvin Chi, MD [Primary Care Provider] - Disposition Disposition (needs filled in before D/C Order can be placed): Home, Self Care
[2025-03-04] MEDS: Enoxaparin 120 MG/0.8 ML Syringe SC (08:30)
[2025-03-04] MEDS: Paroxetine 20 MG Tablet PO (08:33)
[2025-03-04] MEDS: Aspirin E.C. 81 MG Tablet PO (08:33)
--- NOTE | 2025-03-04 10:20 | CASEMGMT ---
RN CM Face to Face with patient for initial transition planning/care coordination assessment. RN CM introduced self and role at [facility]. Patient lying in bed, alert and oriented, significant other at bedside. Patient willing to participate in assessment and is able to answer all questions appropriately. Care providers, pharmacy, and demographics verified. Strata: Vinicius PCP: Vinicius Specialists: [facility]; andreas Aguirre Preferred Pharmacy: [facility] Insurance: MMO Prescription Benefit: yes Living Will/HPOA: yes, February Jojo LNOK: Significant other Living Arrangements: Patient lives alone in a split level home. Patient is independent and able to ambulate stairs. Transportation: self, significant other DME/HHC: Patient has cane and crutches at home. No previous HHC or SNF. Patient wishes to discharge home, denies need for home health at this time. Patient states he has no further needs or concerns at this time. CM to follow for discharge planning needs that may arise. Disposition Plan: Patient to discharge home with family support and follow-up plans in place. Court DELCID, RN, CM
== END 2025-03-04 11:00 | disposition home or self-care (01) | DRG 254 ==
PROVIDERS: Admitting Provider Surgery Trauma Surgery; PCP Family Medicine Geriatric Medicine; Referring Provider Surgery Trauma Surgery; Visit Provider Surgery Trauma Surgery
PROC: 067G3ZZ Dilation of Left External Iliac Vein, Percutaneous Approach (ICD-10-PCS; principal; 2025-03-03 10:55)
DX: T82.856A Stenosis of peripheral vascular stent, initial encounter (principal); I10 Essential (primary) hypertension; Z79.01 Long term (current) use of anticoagulants; Z79.82 Long term (current) use of aspirin; Z82.49 Family history of ischemic heart disease and other diseases of the circulatory system; Z87.891 Personal history of nicotine dependence; Z79.02 Long term (current) use of antithrombotics/antiplatelets
CPT/HCPCS: 36005; 36010; 36415; 37248; 37252; 37253; 75822; 75825; 76937; 80048; 85025; 85610; 85730; C1725; C1753; C1769; C1894; Q9967; J2405

== ENCOUNTER → 2025-03-09 | Outpatient (CLI) | payer OTHER, SELFPAY ==
--- NOTE | 2025-03-09 10:15 | MRI_ITS ---
PROCEDURE: SPINE LUMBAR (ROUTINE) 03/09/2025 REASON FOR EXAM: LUMBAR STENOSIS, PAIN TECHNIQUE: Multiplanar and multisequence images were obtained without IV contrast administration. COMPARISON: January 17, 2023 FINDINGS: There is grade 1 retrolisthesis at L4-5, 0.4 cm. There is Modic fibrotic type endplate change at L2-3 and L4-5. The vertebral body height is maintained. Intervertebral disc signal shows desiccation from L2-5. Normal appearing facets are noted. The L1-L2 level: There is no significant disk protrusion. There is no lateral recess stenosis or foraminal stenosis. There is no critical central canal stenosis. The L2-L3 level: There is moderate central and right and left paracentral disc protrusion. There is moderate bilateral lateral recess effacement. There is mild bilateral foraminal narrowing secondary to disc protrusion. There is moderate central canal stenosis, partly secondary to ligamentous hypertrophy. The L3-L4 level: There is moderate central and right and left paracentral disc protrusion, with an extruded component in the right lateral neural foramen measuring 1.1 x 0.3 by 0.7 cm, axial T2 image 14/38. There is moderate right mild left lateral recess effacement. There is moderate right and mild left foraminal narrowing secondary to disc protrusion and facet hypertrophy. There is moderate central canal stenosis, partly secondary to ligamentous hypertrophy. The L4-L5 level: There is moderate central and right and left paracentral disc and osteophyte protrusion. There is moderate right and mild left lateral recess stenosis. There is moderate bilateral foraminal narrowing secondary to disc protrusion and facet hypertrophy. There is no central canal stenosis. The L5-S1 level: There is mild central disk protrusion. There is no lateral recess stenosis or foraminal stenosis. There is no critical central canal stenosis. The visualized conus shows normal signal characteristics. Bilateral iliac stents are partly visible. MRI/Spine Lumbar (Routine) IMPRESSION: There is grade 1 retrolisthesis at L4-5, 0.4 cm. There is disc extrusion at L3-4. There is moderate central canal stenosis at L2-3, and L3-4, with lateral recess and foraminal narrowing. There is significant interval progression compared to the prior. Reading [facility]
== END | disposition home or self-care (01) ==
LOC: MRI 09:04
PROVIDERS: PCP Family Medicine Geriatric Medicine; Referring Provider Student in an Organized Health Care Education/Training Program; Visit Provider Student in an Organized Health Care Education/Training Program
DX: M54.50 Low back pain, unspecified (principal)
CPT/HCPCS: 72148

== ENCOUNTER 2025-04-16 20:05 | Emergency (ER) | payer OTHER, SELFPAY ==
[2025-04-16 20:05] VITALS: BP 141/106; PULSE 84; RESP 16; TEMP 36.7; O2SAT 100; BMI 33.3
--- NOTE | 2025-04-16 20:28 | CT_ITS ---
PROCEDURE: BRAIN/HEAD WITHOUT CONTRAST 04/16/2025 REASON FOR EXAM: HEAD TRAUMA ON LOVENOX. TECHNIQUE: Head CT without intravenous contrast. Coronal and Sagittal reconstruction series were provided. One or more dose reduction techniques were used (e.g., Automated exposure control, adjustment of the mA and/or kV according to patient size, use of iterative reconstruction technique. COMPARISON: 04/06/2023 FINDINGS: No evidence of acute intracranial hemorrhage, midline shift or mass effect. No definite CT evidence of acute territorial cortical infarction. No hydrocephalus. Cerebral volume is age-appropriate. Calvarium is intact. Paranasal sinuses and mastoid air cells are clear. CT/Brain/Head without Contrast IMPRESSION: No acute intracranial abnormality. Reading Location: [facility]
--- NOTE | 2025-04-16 20:34 | EDS_ITS ---
HPI History of Present Illness Chief Complaint: Head Injury Informant: patient and spouse/S.O. Onset/Context/Timing Onset: Today and Hours Mechanism/Context: Blunt Injury Current Severity: Mild Maximum Severity: Mild Associated Symptoms Associated Symptoms: Negative for Parasthesias, Weakness, Loss of function, Inability to ambulate, Loss of consciousness or Amnesia Narrative Narrative: 49-year-old male on Lovenox secondary to DVT. Was working at home stood up hit his head on a metal shelf around 430 today. Had a headache since that time. Came in to be evaluated. Denies any vomiting. Denies any other injuries. Prior similar symptoms: Yes Recent Illness/Hospitalization: Yes PFSH PFSH Medical History Wears glasses Marijuana use History of steroid therapy Arthritis Chewing tobacco nicotine dependence in remission History of pain when walking Hx of edema Hx of cardiovascular stress test DDD (degenerative disc disease), lumbar DVT (deep venous thrombosis) RSD lower limb HNP (herniated nucleus pulposus), lumbar Hypertension Hypertension Home Medications ?Medication ?Instructions ?Recorded ?Last Taken ?Type paroxetine HCl 20 mg tablet 1 tablet PO DAILY 02/13/23 01/18/25 History aspirin 81 mg tablet,delayed 81 mg PO QDAY 01/02/25 History release enoxaparin 120 mg/0.8 mL 120 mg subcut BID 03/10/25 U nknown History subcutaneous syringe (Lovenox) oxycodone 5 mg tablet 5 - 10 mg (1 - 2 x 5 mg) PO Q8H 04/07/25 Unknown Rx PRN PRN Pain Score 4-10 7 days #42 tabs Allergy/AdvReac Type Severity Reaction Status Date / Time No Known Allergies Allergy Verified 04/16/25 20:05 Family History Father CVA (cerebral vascular accident) Father Heart disease Other Bleeding disorder CAD (coronary artery disease) Hypertension Surgical History Hx of hernia repair History of femoral hernia repair Social History Smoking Status: Never smoker Smokeless tobacco user: chewing tobacco how long ago did patient quit smokin can every 4-5 days alcohol intake: never ROS ROS ED ROS Narrative Headache post head trauma. No recent illness Constitutional Constitutional ED: Denies chills or fever(s) Eyes Eyes: Denies blurry vision ENT ENT ED: Denies ear pain Cardiovascular Cardiovascular: Denies chest pain Respiratory/Chest Respiratory/Chest: Denies cough Gastrointestinal Gastrointestinal: Denies abdominal pain, nausea or vomiting Genitourinary Genitourinary ED: Denies dysuria Musculoskeletal Musculoskeletal: Denies arthralgias Integumentary Denies abscess Neurologic Neurologic: Reports headache(s) Psychiatric Psychiatric: Denies anxiety Endocrine Endocrinology: Denies cold intolerance Hematologic/Lymphatic Hematologic/Lymphatic: Denies lymphadenopathy Allergic/Immunologic Allergic/Immunologic ED: Denies mouth swelling, tongue swelling or urticaria EXAM Physical Exam Narrative Exam Narrative: 49-year-old male no acute distress. Vital signs stable afebrile. No acute distress. H EENT exam pupils round reactive light. No facial trauma. Tenderness top of his head no hematoma no laceration. C-spine neck nontender. Back nontender. Lungs clear. Heart regular rhythm rate about 80 no murmur. Chest wall and ribs nontender. Abdomen soft nontender. Moving all 4 extremities. No deformity. Nontender. Neurologically is awake alert. Answer questions following commands. GCS 15. Const Vital Signs: 04/16/25 20:05 04/16/25 20:29 Temperature 98.1 F Temperature Source Oral Pulse Rate 84 Respiratory Rate 16 Respiratory Effort Normal Blood Pressure 141/106 H Blood Pressure Mean 117 Pulse Ox 100 Oxygen Delivery Method Room Air Room Air Positive well nourished and well developed; Negative for cachectic, contractures or unkempt General Appearance ED: well developed and NAD; Negative for unkempt, cachectic or contractures Nutritional Appearance: Negative for cachectic HEENT HEENT Narrative: Posterior scalp tenderness. No hematoma. No laceration. No blood. trauma and tenderness Eyes PERRL and EOMs intact bilaterally Neck full ROM General: Negative for tenderness Chest Wall inspection of chest normal and palpation of chest normal Resp normal respiratory effort and clear to auscultation bilaterally Cardio regular rhythm, S1 normal heart sound, S2 normal heart sound and no murmurs GI normal to inspection, nondistended, normoactive bowel sounds, non-tender, non- distended and no masses Palpation: soft; Negative for tender, guarding or rebound tenderness present Back/Spine normal to inspection and no thoracic nor lumbar tenderness Extremity normal to inspection and full ROM General Extremety ED: Negative for deformity, edema or tenderness General Extremity: Negative for deformity or edema Neuro CN's II-XII intact bilaterally, moves all extremities and no focal motor deficits [place] Coma Scale: document GCS findings Spontaneous Obeys Commands Oriented 15 Sensorium / Orientation: alert, oriented to person, oriented to place and oriented to time; Negative for orientation impaired Motor Exam: strength 5/5 throughout Psych mental status grossly normal and thought process normal Appearance: Negative for unkempt Mood & Affect: Negative for depressed, anxious or tearful Skin no wounds and no jaundice Rashes: No rashes noted Trauma: Negative for abrasion Wounds: Negative for wounds noted MDM MDM MDM Narrative Medical decision making narrative: 49-year-old male on Lovenox secondary to DVT stood up at home quickly hit his head on a metal shelf. This occurred around 430 today has had a continued headache. Knowing that he is on a blood thinner he came in to be evaluated. He denies any other complaints. CAT scan will be obtained of his head. He does not need any other imaging or labs. He did not want anything for pain. He is already on oxycodone at home. Repeat exam around 9:12 PM patient doing well. We went over his CAT scan results. We discussed head injury instructions. When to return. Patient is comfortable being discharged home. Repeat exam is benign. Neurologic exam remains normal. History & Record Review Discussion w/independent historian: Patient and Family Additional record(s) reviewed:: Prior inpatient record, Prior outpatient record, Prior ED visit and Prior labs Radiography Diagnostic Testing: Clinical Impression(s) from Imaging Studies Brain CT 04/16/25 20:28 IMPRESSION: No acute intracranial abnormality. Reading Location: [facility] Discharge Plan Triage Chief Complaint: Head Injury ED Provider: Emerson Jones Dx/Rx/DC Orders Clinical Impression: Closed head injury, Chronic anticoagulation, History of deep vein thrombosis Instructions: ED Head Injury (Adult) Prescriptions: No Action paroxetine HCl 20 mg tablet 1 tablet PO DAILY aspirin 81 mg tablet,delayed release (DR/EC) 81 mg PO QDAY enoxaparin [Lovenox] 120 mg/0.8 mL syringe 120 mg subcut BID oxycodone 5 mg tablet 5 - 10 mg PO Q8H PRN PRN (Reason: Pain Score 4-10) 7 Days Qty: 42 0RF Primary Care Provider: Rogelio Colvin Chi Referrals: Rogelio Colvin Chi, MD [Primary Care Provider] - As Needed Activity Restrictions/Additional Instructions: Ice to the top your head. Tylenol for any pain. If you start developing worsening headache, intractable vomiting or not acting right return. Your CAT scan tonight was unremarkable with no bleeding. Print Language: Upper Sorbian Disposition Disposition: Home, Self Care
[2025-04-16 21:19] VITALS: BP 140/76; PULSE 76; RESP 16; TEMP 36.6; O2SAT 97
--- OUTSIDE RECORDS SUMMARY | 2025-04-16 22:20 | XMS RPT_ITS | CCD ---
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 Rogelio Colvin Chi Primary Care Provider Dr. Jacek Raygoza Emergency Provider [phone] Javed Jeffery Admit Provider Dr. Javed Jeffery Attending Provider Jose D, Dr. Burt Other Provider DR CJ LEIVA Admitting Unavailable ROGELIO COLVIN MD Referring Unavailable ROGELIO COLVIN Consulting Unavailable DR CJ LEIVA Attending Unavailable DR CJ LEIVA Primary Care Unavailable PROVIDER, UNKNOWN Consulting Unavailable Dr. Delta Garcia Attending Provider Dr. Rogeilo Colvin Chi Referring Provider Dr. Tariq Flores Attending Provider Dr. Zack Smiley Attending Provider Dr. Bryn Mccall Attending Provider Dr. Bryn Mccall Admit Provider Dr. Bryn Mccall Other Provider JORGE A Rebollar Attending Provider Dr. Rogelio Colvin Chi Primary Care Provider Dr. Jacek Raygoza Emergency Provider [phone] Javed Jeffery Admit Provider Dr. Javed Jeffery Attending Provider Jose D, Dr. Burt Other Provider Dr. Delta Garcia Attending Provider [phone] JORGE A Javier Referring Provider Vinicius, Dr. Rogelio Mccray Referring Provider Dr. Tariq Flores Attending Provider [phone] Dr. Zack Smiley Attending Provider [phone] Bryn Mccall Attending Provider [phone] Bryn Mccall Admit Provider Dr. Bryn Mccall Other Provider Rodolfo JULES PA Teena Attending Provider [phone] Dr. Judah Srinivasan Attending Provider [phone] Dr. Judah Srinivasan Referring Provider [phone] Dr. Bryn Mccall Referring Provider [phone] JORGE A Reynolds Attending Provider Vinicius, Dr. Rogelio Mccray Primary Care Provider JORGE A Reynolds Referring Provider Vinicius, Dr. Rogelio Mccray Primary Care Provider Dr. Bryn Mccall Attending Provider [phone] Vinicius, Dr. Rogelio Mccray Referring Provider Dr. Tariq Flores Attending Provider Vinicius, Dr. Rogelio Mccray Primary Care Provider Vinicius, Dr. Rogelio Mccray Referring Provider Dr. Bryn Mccall Attending Provider [phone] Bryn Mccall Referring Provider [phone] Bryn Mccall Other Provider JORGE A Reynolds Attending Provider Vinicius, Dr. Rogelio Mccray Primary Care Provider Dr. Bryn Mccall Attending Provider [phone] JROGE A Jacques Referring Provider [phone] Vinicius, Dr. Rogelio Mccray Referring Provider JORGE A Jacques Attending Provider [phone] Generic Provider MD, No Assigned Pcp Primary Car e Provider Unavailable MENDY TYLER Attending Unavailable GENERIC PROVIDER, NO ASSIGNED PCP Primary Care Unavailable Vinicius TRISTAN, Dr. Rogelio Mccray Primary Care Provider Tami BANKS, Dr. Arcos Attending Provider [phone] Tami BANKS, Dr. Arcos Emergency Provider Stefany TRISTAN, Dr. Clemente Attending Provider [phone] Stefany TRISTAN, Dr. Clemente Referring Provider [phone] Vinicius TRISTAN, Dr. Rogelio Mccray Attending Provider [phone] Vinicius TRISTAN, Dr. Rogelio Mccray Referring Provider Teena Bhatt Attending Provider [phone] Georgie JULES, Teena Referring Provider [phone] Stefany TRISTAN, Dr. Clemente Other Provider [phone] Stefany TRISTAN, Dr. Clemente Admit Provider [phone] Nadia Willis Attending Provider [phone] Sherice TRISTAN, Dr. Dixon Attending Provider [phone] Valente BANKS, Dr. Clemente Emergency Provider [place], Bryn Attending Unavailable Stefany, Bryn Referring Unavailable Stefany, Bryn Admitting Unavailable Vinicius, Rogelio Chi Primary Care Unavailable Rikki, Nadia Attending Unavailable Rikki, Nadia Referring Unavailable Vinicius, Rogelio Chi Primary Care Unavailable Teena Jacques Attending Unavailable Vinicius, Rogelio Chi Primary Care Unavailable Schwiger, Bryn Attending Unavailable Vinicius, Rogelio Chi Primary Care Unavailable Stefany, Bryn Referring Unavailable [place], Bryn Attending Unavailable Stefany, Bryn Admitting Unavailable Vinicius, Rogelio Chi Primary Care Unavailable Vinicius, Rogelio Chi Primary Care Unavailable Isrrael Garrett Attending Unavailable Vinicius, Rogelio Chi Primary Care Unavailable Dimas Gill Attending Unavailable Vinicius, Rogelio Chi Primary Care Unavailable Stefany, Bryn Referring Unavailable [place], Bryn Attending Unavailable RikkiAngusyn Attending Unavailable Vinicius, Rogelio Chi Referring Unavailable Vinicius, Rogelio Chi Primary Care Unavailable Stefany, Bryn Attending Unavailable Vinicius, Rogelio Chi Referring Unavailable Vinicius, Rogelio Chi Primary Care Unavailable Vinicius, Rogelio Chi Referring Unavailable Jacques, Teena Attending Unavailable Vinicius, Rogelio Chi Primary Care Unavailable Dung Aguirre Attending Unavailable Vinicius, Rogelio Chi Referring Unavailable Vinicius, Rogelio Chi Primary Care Unavailable [place], Bryn Referring Unavailable Stefany, Bryn Admitting Unavailable Stefany, Bryn Consulting Unavailable Jacques, Teena Attending Unavailable Vinicius, Rogelio Chi Primary Care Unavailable Stefany, Bryn Referring Unavailable [place], Bryn Attending Unavailable [place], Bryn Admitting Unavailable [place], Bryn Consulting Unavailable Vinicius, Rogelio Chi Primary Care Unavailable Jacques, Teena Attending Unavailable Jacques, Teena Attending Unavailable Vinicius, Rogelio Chi Referring Unavailable Vinicius, Rogelio Chi Primary Care Unavailable Jacques, Teena Attending Unavailable Vinicius, Rogelio Chi Referring Unavailable Vinicius, Rogelio Chi Primary Care Unavailable Stefany, Bryn Attending Unavailable Schwiger, Bryn Referring Unavailable Vinicius, Rogelio Chi Primary Care Unavailable [place], Bryn Attending Unavailable [place], Bryn Referring Unavailable [place], Bryn Consulting Unavailable Vinicius, Rogelio Chi Primary Care Unavailable Zack Smiley Attending Unavailable Vinciius, Rogelio Chi Primary Care Unavailable Vinicius, Rogelio Chi Primary Care Unavailable Jacques, Teena Attending Unavailable Jacques, Teena Referring Unavailable Vinicuis, Rogelio Chi Primary Care Unavailable Vinicius, Rogelio Chi Referring Unavailable Vinicius, Rogelio Chi Attending Unavailable Vinicius, Rogelio Chi Referring Unavailable Vinicius, Rogelio Chi Attending Unavailable Vinicius, Rogelio Chi Primary Care Unavailable Jacques, Teena Attending Unavailable Jacques, Teena Referring Unavailable Vinicius, Rogelio Chi Primary Care Unavailable Vinicius, Rogelio Chi Referring Unavailable Vinicius, Rogelio Chi Primary Care Unavailable Jacques, Teena Attending Unavailable [place], Bryn Referring Unavailable Stefany, Bryn Attending Unavailable Vinicius, Rogelio Chi Primary Care Unavailable [place], Bryn Attending Unavailable Vinicius, Rogelio Chi Referring Unavailable Vinicius, Rogelio Chi Primary Care Unavailable Vinicius, Rogelio Chi Primary Care Unavailable Stefany, Bryn Referring Unavailable Stefany, Bryn Attending Unavailable Vinicius, Rogelio Chi Primary Care Unavailable [place], Bryn Attending Unavailable Jacques, Teena Referring Unavailable Stefany, Bryn Attending Unavailable Stefany, Bryn Referring Unavailable [place], Bryn Consulting Unavailable Vinicius, Rogelio Chi Primary Care Unavailable Medications Current Medications Medication Drug Class(es) Dates Sig (Normalized) Sig (Original) acetaminophen 325 mg / HYDROcodone bitartrate 5 mg oral tablet (6 sources) Opioid Agonist Start: 01-04-2023 take 1 tablet by mouth twice daily Hydrocodone-Aceta minophen Active 1 TABLET PO TWICE A DAY January 04, 2023 1:00am Start: 01-04-2023 Hydrocodone-Ac etaminophen Active 1 TABLET PO January 04, 2023 12:00am aspirin 81 mg delayed release oral tablet (20 sources) Platelet Aggregation Inhibitor, Nonsteroidal Anti-inflammatory Drug Start: 01-02-2025 take 1 tablet by mouth once daily Aspirin 81 mg tablet,delayed release (DR/EC) Active 81 mg PO daily January 02, 2025 1:00am Start: 05-02-2023 End: 01-02-2025 take 1 tablet by mouth once daily Aspirin 325 mg tablet Discontinued 325 mg PO DAILY May 02, 2023 12:00am January 02, 2025 11:39am Start: 01-17-2023 End: 05-02-2023 Aspirin 81 mg tablet,delayed release (DR/EC) Discontinued 325 mg PO WITH BREAKFAST January 17, 2023 9:34am May 02, 2023 10:42am Start: 01-17-2023 End: 05-02-2023 take 325 mg by mouth at breakfast Aspirin Discontinued 325 MG PO WITH BREAKFAST January 17, 2023 8:34am May 02, 2023 9:42am Start: 01-11-2023 End: 01-17-2023 take 1 tablet by mouth at breakfast Aspirin 81 mg Tablet,Delayed Release (Dr/Ec) Discontinued 81 mg PO WITH BREAKFAST 0 January 11, 2023 1:00am January 17, 2023 9:35am 0.8 ml enoxaparin sodium 150 mg/ml prefilled syringe (20 sources) Low Molecular Weight Heparin Start: 01-15-2025 End: 01-20-2025 Enoxaparin (Lovenox) 120 mg/0.8 mL syringe Active 120 mg SC Q12H 48 30 January 20, 2025 3:36pm Start: 03-21-2023 End: 04-17-2024 Enoxaparin (Lovenox) 100 mg/ mL syringe Discontinued 100 mg SC Q12H 180 90 April 17, 2023 12:13pm April 17, 2024 9:51am hydroCHLOROthiazide 12.5 mg / valsartan 160 mg oral tablet (10 sources) Thiazide Diuretic, Angiotensin 2 Receptor Lori Start: 02-13-2023 Valsartan-Hydrochlorothiazid e 160-12.5 mg tablet Active 1 NMA PO DAILY February 13, 2023 12:00am Start: 02-13-2023 take 1 tablet by rogelio th once daily Valsartan-Hydrochlorothiazide Active 1 T AB PO DAILY February 12, 2023 11:00pm Start: 02-13-2023 Valsartan-Hydr ochlorothiazide Active TAB PO February 13, 2023 12:00am ibuprofen 600 mg oral tablet (3 sources) Nonsteroidal Anti-inflammatory Drug Start: 12-07-2022 Ibuprofen Active 600 MG PO Q8H 0 December 07, 2022 12:00am [id number], every 8 hourly for 3 days and then as needed as needed for muscle pain methocarbamol 500 mg oral tablet (2 sources) Muscle Relaxant Start: 10-18-2024 End: 10-28-2024 take 1 tablet by mouth twice daily methocarbamol (Robaxin) 500 mg tablet Indications: Lumbar strain, initial encounter Take 1 tablet (500 mg) by mouth 2 times a day for 10 days. 20 tablet 10/18/2024 10/28/2024 Active methylPREDNISolone (2 sources) Corticosteroid Start: 10-18-2024 methylPREDNISolone (Medrol, Mata,) 4 mg tablets Indications: Lumbar strain, initial encounter Follow schedule on package instructions 1 tablet 10/18/2024 Active oxyCODONE hydrochloride 5 mg oral tablet (4 sources) Opioid Agonist Start: 02-09-2025 take 1 tablet by mouth every six hours as needed for pain Oxycodone 5 mg tablet Active 5 mg PO EVERY 6 HOURS as needed for pain 12 3 February 09, 2025 Start: 01-20-2025 End: 01-27-2025 take 1 tablet by mouth every six hours as needed for pain Oxycodone 5 mg Tablet Discontinued 5 mg PO EVERY 6 HOURS NEEDED as needed for Pain Score 4-10 16 4 January 20, 2025 January 27, 2025 1:45pm pantoprazole 40 mg delayed release oral tablet (8 sources) Proton Pump Inhibitor Start: 12-07-2022 take 40 mg by mouth once daily Pantoprazole Active 40 MG PO DAILY 30 December 07, 2022 1:00am PARoxetine hydrochloride 20 mg oral tablet (10 sources) Serotonin Reuptake Inhibitor Start: 02-13-2023 Paroxetine Hcl 20 mg tablet Active 1 NMA PO DAILY February 13, 2023 12:00am pregabalin 75 mg oral capsule (6 sources) Start: 01-04-2023 take 75 mg by mouth four times daily Pregabalin Active 75 MG PO 4 TIMES DAILY January 04, 2023 1:00am Completed/Discontinued Medications Medication Drug Class(es) Dates Sig (Normalized) Sig (Original) acetaminophen 325 mg oral tablet (1 source) Start: 4 End: 4 take 975 mg by mouth once as needed for pain 975 mg, oral, Once, On 10/18/24 at 2220, For 1 dose, If ordered PRN for pain, nurse is permitted to administer this medication for higher pain scores based on patient preference? Yes apixaban 5 mg oral tablet (14 sources) Factor Xa Inhibitor Start: 3 End: 3 take 1 tablet by mouth twice daily Apixaban (Eliquis Dvt-Pe Treat 30d Start) 5 mg (74 tabs) tablets,dose pack Discontinued 5 mg PO TWICE A DAY 74 December 31, 2022 1:00am January 04, 2023 10:19am benzonatate 100 mg oral capsule (3 sources) Non-narcotic Antitussive Start: 5 End: 5 take 1 capsule by mouth three times daily as needed for cough Benzonatate 100 mg Capsule Discontinued 100 mg PO 3 TIMES DAILY NEEDED as needed for Cough 42 14 January 20, 2025 12:00am January 27, 2025 1:44pm cephalexin 500 mg oral capsule (5 sources) Cephalosporin Antibacterial Start: 3 End: 3 take 1 capsule by mouth three times daily Cephalexin 500 mg capsule Discontinued 500 mg PO 3 times daily May 20, 2023 12:00am October 16, 2023 12:54pm clopidogrel 75 mg oral tablet (4 sources) P2Y12 Platelet Inhibitor Start: 3 End: 5 take 1 tablet by mouth once daily Clopidogrel (Plavix) 75 mg tablet Discontinued 75 mg PO DAILY October 16, 2023 1:00am January 02, 2025 11:40am dicyclomine hydrochloride 20 mg oral tablet (3 sources) Anticholinergic Start: 4 End: 5 take 1 tablet by mouth three times daily as needed for pain Dicyclomine 20 mg tablet Discontinued 20 mg PO THREE TIMES A DAY as needed for abdominal pain November 04, 2024 3:00am January 02, 2025 11:40am Enoxaparin (Lovenox) 120 mg/0.8 mL syringe (3 sources) Start: 5 End: 5 Enoxaparin (Lovenox) 120 mg/0.8 mL syringe Discontinued 120 mg SC Q12H 48 January 14, 2025 1:00am January 15, 2025 2:51pm hydroCHLOROthiazide 12.5 mg / losartan potassium 100 mg oral tablet (16 sources) Thiazide Diuretic, Angiotensin 2 Receptor Lori Start: 6 End: 3 Losartan/Hydroch lorothiazide (Hyzaar 100-12.5 Tablet) 1 TAB tablet Discontinued 1 {tbl} PO DAILY March 07, 2016 12:00am January 04, 2023 3:45pm 1 ml ketorolac tromethamine 30 mg/ml injection (3 sources) Nonsteroidal Anti-inflammatory Drug, Cyclooxygenase Inhibitor Start: 4 End: 4 inject 30 mg by intramuscular injection once 30 mg, intramuscular, Once, On 10/18/24 at 2100, For 1 dose Start: 10-18-2024 End: 10-23-2024 take 1 tablet by mouth every six hours for pain ketorolac (Toradol) 10 mg tablet Indications: Lumbar strain, initial encounter Take 1 tablet (10 mg) by mouth every 6 hours if needed for moderate pain (4 - 6) for up to 5 days. 20 tablet 10/18/2024 10/23/2024 Active ondansetron 4 mg disintegrating oral tablet (11 sources) Serotonin-3 Receptor Antagonist Start: 11-04-2024 End: 01-02-2025 take 1 tablet by mouth every six hours as needed for nausea and vomiting Ondansetron 4 mg tablet,disintegrating Discontinued 4 mg PO EVERY 6 HOURS as needed for nausea and vomiting November 04, 2024 1:00am January 02, 2025 11:40am Start: 04-06-2023 End: 05-02-2023 take 2 tablets by mouth every eight hours as needed for nausea Ondansetron 4 mg tablet,disintegrating Discontinued 8 mg PO EVERY 8 HOURS NEEDED as needed for Nausea April 06, 2023 12:00am May 02, 2023 10:39am Start: 04-06-2023 End: 05-02-2023 take 8 mg by mouth every eight hours as needed Ondansetron Discontinued 8 MG PO EVERY 8 HOURS NEEDED April 05, 2023 11:00pm May 02, 2023 9:39am rivaroxaban 20 mg oral tablet (20 sources) Factor Xa Inhibitor Start: 02-13-2023 End: 03-21-2023 take 1 tablet by mouth once daily at dinner Rivaroxaban (Xarelto) 20 mg tablet Discontinued 20 mg PO DAILY February 13, 2023 12:00am March 21, 2023 9:06am must administer with evening meal Start: 01-04-2023 End: 02-13-2023 take 22-30 tablets by mouth twice daily, then take 9 tablets by mouth once daily Rivaroxaban (Xarelto) 20 mg tablet Discontinued 15 mg PO TWICE A DAY January 04, 2023 1:00am February 13, 2023 2:30pm days 1-21 15 mg bid, days 22-30: 20 mg daily (pt on day 9) tiZANidine 2 mg oral tablet (15 sources) Central alpha-2 Adrenergic Agonist Start: 12-07-2022 End: 01-04-2023 take 2 tablets by mouth every eight hours as needed for muscle spasms Tizanidine 2 mg Tablet Discontinued 4 mg PO EVERY 8 HOURS NEEDED as needed for MUSCLE SPASM 10 09December 07, 2022 1:00am January 04, 2023 3:45pm Start: 12-07-2022 End: 01-04-2023 take 4 mg by mouth every eight hours as needed Tizanidine Discontinued 4 MG PO EVERY 8 HOURS NEEDED 10 09December 07, 2022 12:00am January 04, 2023 2:45pm valsartan 160 mg oral tablet (13 sources) Angiotensin 2 Receptor Lori Start: 01-04-2023 End: 02-13-2023 take 1 tablet by mouth once daily Valsartan 160 mg tablet Discontinued 160 mg PO DAILY January 04, 2023 1:00am February 13, 2023 2:24pm valsartan/hydrochlorothiazide 160/12.5 Problems Active Problems Problem Classification Problem Date Documented Da te Episodic/Chronic Essential hypertension (18 sources) Hypertensive disorder; Translations: [Essential (primary) hypertension] 12-06-2022 Chronic Fracture of upper limb (5 sources) Open fracture finger proximal phalanx; Translations: [Displaced fracture of proximal phalanx of unspecified finger, initial encounter for open fracture] 05-20-2023 Episodic Intestinal infection (3 sources) Viral gastroenteritis; Translations: [Viral intestinal infection, unspecified] 11-12-2024 Episodic Intracranial injury (8 sources) Concussion injury of brain; Translations: [Closed head injury with concussion] 04-06-2023 Episodic Other aftercare (8 sources) Surgical follow-up; Translations: [Encounter for surgical aftercare following surgery on the circulatory system] 05-02-2023 Episodic Other aftercare (1 source) Encounter for surgical aftercare following surgery on the circulatory system; Translations: [Encounter for surgical aftercare following surgery on the circulatory system] Onset: 02-04-2025 Episodic Other connective tissue disease (14 sources) Pain in lower limb; Translations: [Pain in left leg] 12-31-2022 Episodic Other connective tissue disease (6 sources) Pain in left lower limb; Translations: [Pain in left leg] 01-06-2025 Episodic Other connective tissue disease (1 source) Achilles tendinitis, right leg; Translations: [Achilles tendinitis, right leg] Onset: 12-29-2024 Episodic Other diseases of veins and lymphatics (11 sources) Occlusion of iliac vein; Translations: [Compression of vein] 05-02-2023 Episodic Other diseases of veins and lymphatics (5 sources) Compression of vein; Translations: [Compression of vein] Onset: 01-22-2025 05-02-2023 Episodic Other injuries and conditions due to external causes (13 sources) Lower back injury; Translations: [Unspecified injury of lower back, initial encounter] 01-04-2023 Episodic Other injuries and conditions due to external causes (8 sources) Unspecified injury of lower back, initial encounter; Translations: [Other injury of other sites of trunk] Onset: 01-15-2025 3 Episodic Other nervous system disorders (16 sources) Unable to walk; Translations: [Difficulty in walking, not elsewhere classified] 12-06-2022 Chronic Other nervous system disorders (8 sources) Difficulty in walking, not elsewhere classified; Translations: [Difficulty in walking] 12-06-2022 Chronic Other nervous system disorders (13 sources) Complex regional pain syndrome of lower limb; Translations: [Complex regional pain syndrome I of unspecified lower limb] 01-04-2023 Chronic Other nervous system disorders (5 sources) Complex regional pain syndrome I of unspecified lower limb; Translations: [Reflex sympathetic dystrophy of the lower limb] 01-04-2023 Chronic Other nervous system disorders (3 sources) Postoperative pain ; Translations: [Other acute postprocedural pain] 01-20-2025 Episodic Other nervous system disorders (2 sources) Other acute postprocedural pain; Translations: [Other acute postprocedural pain] Onset: 03-11-2025 Episodic Phlebitis; thrombophlebitis and thromboembolism (2 sources) 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; Translations: [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] Onset: 03-13-2025 Chronic Phlebitis; thrombophlebitis and thromboembolism (20 sources) Deep venous thrombosis; Translations: [Acute embolism and thrombosis of unspecified deep veins of unspecified lower extremity] Onset: 12-15-2024 12-31-2022 Episodic Pulmonary heart disease (11 sources) Pulmonary embolism; Translations: [Other pulmonary embolism without acute cor pulmonale] 01-19-2023 Episodic Residual codes; unclassified (1 source) Localized edema; Translations: [Localized edema] Onset: 02-20-2025 Episodic Spondylosis; intervertebral disc disorders; other back problems (20 sources) Other intervertebral disc displacement, lumbar region; Translations: [Herniation of intervertebral disc of lumbar spine] Onset: 01-02-2025 01-04-2023 Chronic Spondylosis; intervertebral disc disorders; other back problems (20 sources) Intractable low back pain; Translations: [Intractable low back pain] Onset: 01-02-2025 12-06-2022 Episodic Sprains and strains (3 sources) Low back strain; Translations: [Strain of muscle, fascia and tendon of lower back, initial encounter] Onset: 10-18-2024 10-18-2024 Episodic Syncope (11 sources) Vasovagal syncope; Translations: [Syncope and collapse] 01-19-2023 Episodic Unclassified (3 sources) M51.36 - Other intervertebral disc degeneration, lumbar region,M54.10 - Radiculopathy, site unspecified Unclassified (2 sources) M51.36 - Other intervertebral disc degeneration, lumbar region,S39.92XA - Unspecified injury of lower back, initial encounter,I87.1 - Compression of vein Unclassified (1 source) Low back pain, unspecified; Translations: [Low back pain, unspecified] Onset: 03-12-2025 Past or Other Problems Problem Classification Problem Date Documented Da te Episodic/Chronic Abdominal pain (1 source) Unspecified abdominal pain; Translations: [Unspecified abdominal pain] Onset: 11-27-2024 Episodic Open wounds of extremities (14 sources) Avulsion injury of fingernail; Translations: [Unspecified open wound of unspecified finger with damage to nail, initial encounter] Onset: 05-08-2024 05-20-2023 Episodic Other connective tissue disease (1 source) Pain in right lower leg; Translations: [Pain in right lower leg] Onset: 10-13-2024 Episodic Results Test Name Value Interpretation Reference Range Facility Orthopedic Visit Reporton Orthopedic Visit Report [facility] [address] [place] [address] OFFICE VISIT Date of Service: 03/20/25 MR#: [id number] Acct: [id number] Name: DELTA CHEEK Jr. Rep #: [id number] : 1975 Provider: Dr. Dung Aguirre MD Age/Sex: 49/M [place] [facility] [place] Signed with Addenda ADDENDUM by Dr. Dung Aguirre MD on 03/23/25 at 1646 Assessment and Plan Assessment and Plan (1) Congenital stenosis of lumbar spine: Status: Acute (2) Other intervertebral disc degeneration, lumbar region with discogenic back pain and lower extremity pain: Status: Acute 03/23/25 1646 Date Dung Aguirre MD cc: Dr. Bryn Mccall MD; Dr. Rogelio Colvin MD * Signed Intake Vital Signs 02/09/25 13:08 03/03/25 10:19 Height 6 ft 2.02 in 6 ft 2 in Intake Visit Reasons: lumbar spine Allergies No Known Allergies Allergy (Verified 03/02/25 16:28) PFSH Medical History Wears glasses Marijuana use History of steroid therapy Arthritis Chewing tobacco nicotine dependence in remission History of pain when walking Hx of edema Hx of cardiovascular stress test DDD (degenerative disc disease), lumbar DVT (deep venous thrombosis) RSD lower limb HNP (herniated nucleus pulposus), lumbar Hypertension Hypertension Surgical History Hx of hernia repair History of femoral hernia repair Family History Father CVA (cerebral vascular accident) Father Heart disease Other Bleeding disorder CAD (coronary artery disease) Hypertension Social History Smoking Status: Never smoker Smokeless tobacco user: chewing tobacco how long ago did patient quit smokin can every 4-5 days alcohol intake: never HPI lumbar spine Details: This documentation accurately reflects the service provided and the decisions made by me, Dr. Dung Aguirre MD 03/20/25 [id number]. Part of today???s visit was documented by Fang Scott [facility], acting as scribe. DELTA CHEEK is a 49 year old M here today for MRI review of the lumbar spine. Patient denies any changes. He has constant pain of a 4/10 in his lower back. He also get s sharp stabbing burning pain that will radiate into his left leg, hip or testicle. He states that the testicular pain seems to be getting worse and this is also left sided. He alternates taking oxycodone and using marijuana for his pain. Delta has had back pain for many years. He also has bilateral buttock pain and was diagnosed with iliac vein DVT which was being initially corrected with stents however there was in-stent restenosis and he had to undergo stenting over again because of blood clots. It was suspected that the L4-5 disc degeneration and disc height loss may have somehow contributed to the restenosis of the stent. At this time patient does not indicate any radicular symptoms down to the lower extremities. 02/03/25: DELTA CHEEK is a 49 year old M here today for lumbar spine pain. This started in November 2022. Patient lifted a 200lb object at his house and he felt a pop. On the fourth day he had to go to ER, he couldn't walk at all due to the pain. He got injections in December 2022 and they didn't work. Patient got an MRI done in 2022 and it showed a vein pinching which he was then referred to Dr. Mccall. Patient has 4 stents in the back. He had blood clots in his back and legs in the past. Occasionally will get pain down the right leg, denies any left sided involvement. Says that the pain down the legs is infrequent however he has continuous low back pain. Denies any numbness or tingling. Denies any back surgery. Patient states that his balance is good. He states that he works out at home and it has not helped and he is active at home. Patient says that he had an injection in [address] Flores. 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 He continues to stay very active during this time. He sees Dr. Mccall, takes Lovenox. Has another surgery next month with Dr. Mccall for further evaluation of his continued clots. Dr. Mccall recommended that he come to see us for evaluation of his back and says that Dr. Mccall wonders if his continued clots are related to the lumbar vertebrae pressing the bilateral iliac venous stents. Says that when he stands for a minute he has to sit down due to pain. He needs to lean on a shopping cart to help his pain. He has tried tylenol, NSAIDs, marijuana. He has done stretching and exercising on his own daily without any notable benefit. He has also tried a inversion table without any notable benefit. Ortho Exam General General: Yes no acute distress Neurologic: (more content not included)... Normal [facility] MR/BMS.Lydia 03-10-2025 MR/BMS.BVS [facility] Vascular Surgery [address] [place] [address] OFFICE VISIT Date of Service: 03/10/25 MR#: [id number] Acct: [id number] Name: DELTA CHEEK Jr. Rep #: [id number] : 1975 Provider: JORGE A Schmitt Age/Sex: 49/M [place] [facility] [place] Status: Signed Intake Vital Signs 01/26/25 08:20 03/03/25 10:19 03/10/25 11:15 Height 6 ft 2.02 in 6 ft 2 in Weight: 254 lb 8 oz BP 142/91 H Blood Pressure Location Rt brachial Position Sitting Respiration 16 Pulse 98 Pulse Source Monitor Temp 98.4 F Temp Source Temporal Pulse Oximetry (%) 97 Oxygen Delivery Method room air Intake Visit Reasons: Post venogram 3-4 WK FU Chief Complaint: Follow Up Manager Cath Lab Required: No Is patient in pain?: Yes Allergies No Known Allergies Allergy (Verified 03/02/25 16:28) Medications ???Medication ???Instructions ???Recorded ???Confirmed ???Type paroxetine HCl 20 mg tablet 1 tablet PO DAILY 02/13/23 5 History aspirin 81 mg tablet,delayed 81 mg PO QDAY 01/02/25 03/10/25 Hi story release oxycodone 5 mg tablet 5 - 10 mg (1 - 2 x 5 mg) PO Q8H 03/10/25 Rx PRN PRN Pain Score 4-10 7 days #42 tabs enoxaparin 120 mg/0.8 mL 120 mg subcut BID 03/10/25 Histor y subcutaneous syringe (Lovenox) Have you fallen in the past year?: No PFSH Medical History Wears glasses Marijuana use History of steroid therapy Arthritis Chewing tobacco nicotine dependence in remission History of pain when walking Hx of edema Hx of cardiovascular stress test DDD (degenerative disc disease), lumbar DVT (deep venous thrombosis) RSD lower limb HNP (herniated nucleus pulposus), lumbar Hypertension Hypertension Surgical History Hx of hernia repair History of femoral hernia repair Family History Father CVA (cerebral vascular accident) Father Heart disease Other Bleeding disorder CAD (coronary artery disease) Hypertension Social History (Updated 03/10/25 @ 11:15 by Sherron Bradfrod) Smoking Status: Never smoker Smokeless tobacco user: chewing tobacco how long ago did patient quit smokin can every 4-5 days alcohol intake: never HPI HPI HPI: DELTA CHEEK, is a 49 M who presents to the office today for follow-up s/p repeat venogram with L iliac vein angioplasty 03/03/25. He has a single suture which needs to be removed from the L groin. He continues to have severe low back pain; since the procedure he has noticed some pelvic/lower abdominal aching similar to what he has had with past iliac angioplasties. He has not had any new lower extremity swelling or discoloration. He has been administering lovenox as directed; tolerating this well. He was able to get his lumbar spine MRI yesterday, he has appt with Dr. Aguirre on 03/19. ROS General General: Yes fatigue and weakness; No weight change, appetite, colon cancer or breast cancer HEENT HEENT: No difficulty swallowing, eye injury, eye surgery, swollen glands or hoarseness Endo Endocrine: No thyroid disease, diabetes mellitus, thyroid cancer, Hair loss, heat intolerance or cold intolerance Skin Skin: No rash or changing moles Musc Musculoskeletal: Yes back problems, arthritis and joint pain; No rheumatoid arthritis or gout Cardio Cardiovascular: Yes high blood pressure and palpitations; No murmur, pacemaker, heart disease, atrial fibrillation, heart attack, heart stent, shortness of breath with exertion or chest pain Psych Psychiatric: Yes anxiety; No depression or hearing voices Resp Respiratory: No shortness of breath, No sleep apnea, No cough, No COPD, No asthma, No emphysema and No wheezing Gastro Gastrointestinal: No abdominal pain, No nausea or vomiting, No diarrhea, No constipation, No blood in stool, No acid reflux, No hemorrhoids, No ulcers, No gallbladder problem and No black,tarry stools Daniel Hematologic: Yes blood thinners, No blood disorders, No bleeding, No anemia and Yes blood clots Neuro Neurologic: No system reviewed and no additional complaints, except as documented, No as per HPI, Yes abnormal gait, No abnormal hearing, No abnormal movements, No abnormal speech, No behavioral changes, Yes burning sensations, No confusion, No convulsions, Yes disequilibrium, Yes dizziness, No localized weakness, No frequent falls, No headache(s), No lack of coordination, No loss of vision, No memory loss, Yes numbness, Yes other visual disturbances, Yes radicular pain, No restless legs, No sensory deficit, No syncope, Yes tingling, No tremor(s), Yes weakness and No other Exam Const General: cooperative, healthy appearing, comfortable, no ac (more content not included)... Normal [facility] Spine Lumbar (Routine)on Spine Lumbar (Routine) [facility] Imaging Services [address] [place] [address] Spine Lumbar (Routine) MR#: [id number] Acct: [id number] Name: DELTA CHEEK Gilberto Chan Rep #: [id number] : 1975 M 49 From: Eugenio Euceda MD PCP: Dr. Rogelio Colvin MD Status: REG CLI Study: Spine Lumbar (Routine) Date of Exam: 03/09/25 Exam# [id number] Ordering Dr: Nadia Brandt PROCEDURE: SPINE LUMBAR (ROUTINE) 03/09/2025 REASON FOR EXAM: LUMBAR STENOSIS, PAIN TECHNIQUE: Multiplanar and multisequence images were obtained without IV contrast administration. COMPARISON: January 17, 2023 FINDINGS: There is grade 1 retrolisthesis at L4-5, 0.4 cm. There is Modic fibrotic type endplate change at L2-3 and L4-5. The vertebral body height is maintained. Intervertebral disc signal shows desiccation from L2-5. Normal appearing facets are noted. The L1-L2 level: There is no significant disk protrusion. There is no lateral recess stenosis or foraminal stenosis. There is no critical central canal stenosis. The L2-L3 level: There is moderate central and right and left paracentral disc protrusion. There is moderate bilateral lateral recess effacement. There is mild bilateral foraminal narrowing secondary to disc protrusion. There is moderate central canal stenosis, partly secondary to ligamentous hypertrophy. The L3-L4 level: There is moderate central and right and left paracentral disc protrusion, with an extruded component in the right lateral neural foramen measuring 1.1 x 0.3 by 0.7 cm, axial T2 image 1438. There is moderate right mild left lateral recess effacement. There is moderate right and mild left foraminal narrowing secondary to disc protrusion and facet hypertrophy. There is moderate central canal stenosis, partly secondary to ligamentous hypertrophy. The L4-L5 level: There is moderate central and right and left paracentral disc and osteophyte protrusion. There is moderate right and mild left lateral recess stenosis. There is moderate bilateral foraminal narrowing secondary to disc protrusion and facet hypertrophy. There is no central canal stenosis. The L5-S1 level: There is mild central disk protrusion. There is no lateral recess stenosis or foraminal stenosis. There is no critical central canal stenosis. The visualized conus shows normal signal characteristics. Bilateral iliac stents are partly visible. MRI/Spine Lumbar (Routine) IMPRESSION: There is grade 1 retrolisthesis at L4-5, 0.4 cm. There is disc extrusion at L3-4. There is moderate central canal stenosis at L2-3, and L3-4, with lateral recess and foraminal narrowing. There is significant interval progression compared to the prior. Reading Location: [facility] CC: JORGE A Bauman; Dr. Rogelio Colvin MD Water Conservationist: Signed Normal [facility] Partial Thromboplast Timeon 03-04-2025 aPTT Coag (Bld) [Time] 63.9 s High 24.1-36.2 [facility] Comment on above: Order Comment: Comme nts: heparin gtt Performed By: #### L 300.4310 ####[facility] [address] [place], [place], [id number] Basic Metabolic Profile (BMP )on 03-03-2025 BUN/CRE 13.1 RATIO Normal 10-20 [facility] Comment on above: Performed By: #### L 9100.0100 #### [facility] [address] [place], [place], [address] Calcium [Mass/Vol] 9.1 mg/dL Normal 7.6-11.0 [facility] Comment on above: Performed By: #### L 9100.0100 #### [facility] [address] [place], [address] Chloride [Moles/Vol] 104 mmol/L Normal 98-108 [facility] Comment on above: Performed By: #### L 9099.0100 #### [facility] [address] [place], [address] CO2 [Moles/Vol] 26.1 mmol/L Normal 21.0-32.0 [facility] Comment on above: Performed By: #### L 9099.0100 #### [facility] [address] [place], [address] Creatinine [Mass/Vol] 0.94 mg/dL Normal 0.70-1.20 [facility] Comment on above: Performed By: #### L 9099.0100 #### [facility] [address] [place], [address] ECRCL 125.08 ml/min Normal 50-250 [facility] Comment on above: Performed By: #### L 00.0100 #### [facility] [address] [place], [address] GAP 10 Normal 5-15 [facility] Comment on above: Performed By: #### L 00.0100 #### [facility] [address] [place], [address] GFR/1.73 sq M.predicted among non-blacks MDRD (S/P/Bld) [Vol rate/Area] 98 mL/min/{1.73_m2} Normal >60 [facility] Comment on above: Result Comment: mL/m in/1.73m2 CKD-EPI Creatinine Equation (2020) Performed By: #### L 00.0100 #### [facility] [address] [place], [address] Glucose [Mass/Vol] 99 mg/dL Normal 70-99 [facility] Comment on above: Performed By: #### L 00.0100 #### [facility] [address] [place], [address] Potassium [Moles/Vol] 3.9 mmol/L Normal 3.3-5.1 [facility] Comment on above: Performed By: #### L 9099.0100 #### [facility] [address] [place], [address] Sodium [Moles/Vol] 140 mmol/L Normal 133-145 [facility] Comment on above: Performed By: #### L 9099.0100 #### [facility] [address] [place], [address] Urea nitrogen [Mass/Vol] 12 mg/dL Normal 4-19 [facility] Comment on above: Performed By: #### L 9099.0100 #### [facility] [address] [place], [address] CBC W/Diff, Automatedon 04-2 -2024 Absolute Lymph 1.31 X10 3/uL Normal 0.83-4.51 [facility] Comment on above: Performed By: #### L 9099.0100 #### [facility] [address] [place], [address] Absolute Neut 2.1 X10 3/uL Normal 2.0-7.7 [facility] Comment on above: Performed By: #### L 00.0100 #### [facility] [address] [place], [address] Basophils/100 WBC (Bld) 1.0 % Normal 0-1 [facility] Comment on above: Performed By: #### L 9099.0100 #### [facility] [address] [place], [address] Eosinophils/100 WBC (Bld) 1.5 % Normal 0-5 [facility] Comment on above: Performed By: #### L 9100.0100 #### [facility] [address] [place], [address] Erythrocyte distribution width (RBC) [Ratio] 12.3 % Normal 11.6-14.6 [facility] Comment on above: Performed By: #### L 9099.0100 #### [facility] [address] [place], [address] Hematocrit (Bld) [Volume fraction] 38.6 % Low 40-54 [facility] Comment on above: Performed By: #### L 9099.0100 #### [facility] [address] [place], [address] Hemoglobin (Bld) [Mass/Vol] 13.0 g/dL Normal 13.0-16.5 [facility] Comment on above: Performed By: #### L 9099.0100 #### [facility] [address] [place], [address] IG% 0.300 Normal 0.0-0.9 [facility] Comment on above: Result Comment: IG% - Immature Granulocytes (promyelocytes, myelocytes and metamyelocytes) > 1% indicates that a LEFT SHIFT is Present. Performed By: #### L 9099.0100 #### [facility] [address] [place], [address] Lymphocytes/100 WBC (Bld) 33.1 % Normal 19-41 [facility] Comment on above: Performed By: #### L 9100.0100 #### [facility] [address] [place], [address] MCH (RBC) [Entitic mass] 29.3 pg Normal 27.0-32.0 [facility] Comment on above: Performed By: #### L 9099.0100 #### [facility] [address] [place], [address] MCHC (RBC) [Mass/Vol] 33.7 g/dL Normal 32-36 [facility] Comment on above: Performed By: #### L 9099.0100 #### [facility] [address] [place], [address] MCV (RBC) [Entitic vol] 87.1 fL Normal 80-94 [facility] Comment on above: Performed By: #### L 9099.0100 #### [facility] [address] [place], [address] Monocytes/100 WBC (Bld) 10.9 % High 0-[address] [facility] Comment on above: Performed By: #### L 9099.0100 #### [facility] [address] [place], [address] Neutrophils/100 WBC (Bld) 53.2 % Normal 47-70 [facility] Comment on above: Performed By: #### L 9099.0100 #### [facility] [address] [place], [address] Nucleated RBC (Bld) [#/Vol] 0 10*3/uL Normal 0-5 [facility] Comment on above: Performed By: #### L 9099.0100 #### [facility] [address] [place], [address] Platelet mean volume (Bld) [Entitic vol] 9.1 fL Normal 6.2-12.0 [facility] Comment on above: Performed By: #### L 91.0100 #### [facility] [address] [place], [address] Platelets (Bld) [#/Vol] 210 10*3/uL Normal 150-450 [facility] Comment on above: Performed By: #### L 9099.0100 #### [facility] [address] [place], [address] RBC (Bld) [#/Vol] 4.43 10*6/uL Low 4.6-6.2 [facility] Comment on above: Performed By: #### L 9100.0100 #### [facility] [address] [place], [address] RDW SD 39.3 fl Normal 35.1-43.9 [facility] Comment on above: Performed By: #### L 9100.0100 #### [facility] [address] [place], [address] WBC (Bld) [#/Vol] 4.0 10*3/uL Low 4.4-11.0 [facility] Comment on above: Performed By: #### L 9100.0100 #### [facility] [address] [place], [address] MR/POSTOP.ANEon 03-03-2025 MR/POSTOP.[facility] Medical Records Department [address] [place] [address] Anesthesia Postop Eval I 03/03/25 1305 MR#: [id number] Acct: [id number] Name: DELTA CHEEK Jr. Rep #: [id number] : 1975 49 From: Hossein Cheek 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 AUTOMATIC PCP: Dr. Rogelio Colvin MD Status:ADM IN Y Race: C Location: [place] [address] Anesthesia: Postop Eval I Current Vital Signs Temperature: 97.5 F Pulse Rate: 62 Blood Pressure: 127/89 Respiratory Rate: 20 Pulse Ox: 95 Oxygen Delivery Method: Room Air Assessment Airway patent: Yes Spontaneous unlabored respirations: Yes Mental status: Awake and Calm nausea: No Vomiting: No Anesthesia Complication: No Fluid Hydration Crystalloid volume administer (ml): 1,100 Total IV fluid infused: 1,100 Progress Note Anesthesia document: Postop Eval 1 completed: Yes 03/03/25 1306 Date Hossein Croninigner Signature: Date CC: Signed Normal [facility] MR/[id number] 03-03-2025 MR/POSTOPAN2 [facility] Medical Records Department [address] [place] [address] Anesthesia Postop Eval II 03/03/252017 MR#: [id number] Acct: [id number] Name: DELTA CHEEK Jr. Rep #: [id number] : 1975 49 From: Andrew Carranza MD PCP: Dr. Rogelio Colvin MD Status:ADM IN Y Race: C Location: [place] [address] Anesthesia Postop Eval I Sum Postop Eval Completion status Anesthesia document: Postop Eval 1 completed: Yes Anesthesia Postop Eval I Summary Anesthesia Postop Eval I Summary: Anesthesia Postop Eval I: Assessment Summary Airway patent Yes 03/03/25 13:05 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 [email or web address] Spontaneous unlabored Yes 03/03/25 13:05 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 [email or web address].PKEL respirations Mental status Awake,Calm 03/03/25 13:05 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 [email or web address].PKEL nausea No 03/03/25 13:05 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 [email or web address] Vomiting No 03/03/25 13:05 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 [email or web address] Anesthesia Postop Eval I: Fluid Summary Crystalloid volume administer 1,100 03/03/25 13:05 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 [email or web address].PKEL (ml) Colloids volume administered ( ml) Blood Product volume administered (ml) Total IV fluid infused 1,100 03/03/25 13:05 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 [email or web address] Anesthesia Postop Eval I: Summary Notes Anesthesia Complication No 03/03/25 13:05 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 [email or web address] Anesthesia Complication Comment: Post-operative progress note Anesthesia: Postop Eval II Evaluation Mental status: Awake and Calm Pain Level: 1 nausea: No Vomiting: No Complications Anesthesia Complication: No 03/03/252017 Date Andrew Carranza MD Cosigner Signature: Date CC: Signed Normal [facility] Operative Reporton 5 Operative Report [facility] Medical Records Department [address] [place] [address] Operative Report 03/03/25 1232 MR#: [id number] Acct: [id number] Name: DELTA CHEEK JrChristine Rep #: [id number] : 1975 49 From: Bryn Mccall MD PCP: Dr. Rogelio Colvin MD Status:ADM IN Location: [place] [address] Operative Report (Standard) Operative Information Date of Procedure: 03/03/25 Pre-Operative Diagnosis: obstruction left iliac vein Post-Operative Diagnosis: same Surgery/Procedure Performed: venogram IVC IVUS IVC, left common iliac vein, left external iliac vein angioplasty left external iliac vein sterile processing manager: No Type of Anesthesia: General RN Documented Start/Stop Times: Operation Date: 03/03/25 11:00 Case Time Into Pre-Op 03/03/25 10:05 Into Recovery 03/03/25 12:59 Out of Recovery 03/03/25 15:05 Procedure Start Time: 11:40 Procedure Stop Time: 12:30 Select all DRAINS/GRAFTS/IMPL ANTS that apply: None Estimated Blood Loss: 4 Specimen collected: No Description of surgery: HPI: Patient is a 49-year-old male who has had a 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 He recently had thrombosis of his left common and external iliac vein stents requiring thrombectomy which yielded overall a satisfactory result though there was some residual subacute appearing thrombus within the lumen of the stents. He has been maintained on Lovenox for approximately 6 weeks and returns now for venogram to assess the status of his remnant thrombus and potential need for any further invention. Description of procedure: Upon obtaining form consent and verification correct patient procedure and site the patient was taken to the Mathematics Improvement Teacher where he was placed under general anesthesia. He was then positioned prepped and draped in usual sterile fashion a time was performed. The left common femoral vein was then accessed under ultrasound guidance with a micropuncture needle wire. This was exchanged for micropuncture sheath through which hand-injection ilio caval venogram was performed revealing satisfactory positioning no extravasation or dissection. This also revealed patent left common and external iliac vein stents with stenosis of the inferior aspect of the previously placed stents similar to at completion of his prior procedure. Through the micropuncture sheath Bentson wire was advanced and the micropuncture sheath exchanged for a 10 Portuguese sheath. Through the 10 Portuguese sheath the Bentson wire was navigated through the lumen of the iliac vein stents into the inferior vena cava. Intravascular ultrasound probe was then advanced and recorded pullback performed of the IVC, left common iliac vein, left external iliac vein. This confirmed position within the true lumen of the stent with no transit outside of the stent struts. This also revealed approximately 39% stenosis of the superior aspect of the common iliac vein stent and 52% stenosis of the inferior aspect of the external iliac vein stent. It was felt that the residual in-stent stenosis at the inferior aspect warranted treatment so the patient was then heparinized allowed to circulate for 3 minutes. While this was circulating under ultrasound guidance the right common femoral vein was accessed with a micropuncture needle wire and exchanged for micropuncture sheath. Through this hand-injection ilio caval venogram was performed revealing satisfactory positioning no extravasation or dissection. This also revealed brisk contrast transit with no significant luminal irregularity or stenosis within the right iliac vein stents. It was felt that no upsize of her sheath was warranted as we did not intend to perform any intervention and there was no suspicion of any significant thrombus or stenosis. Next a Bard [place] 16 x 40 angioplasty balloon was advanced centered on the external iliac vein stenosis and inflated for multiple inflations. This was then withdrawn and a Dearing XXL 18 x 40 angioplasty balloon was again advanced and inflated for multiple inflations centered on the area of stenosis. Repeat venogram revealed significant improvement in the degree of stenosis with only minimal residual. The intravascular ultrasound probe was then readvanced and the area of intervention assessed. This revealed now 37% residual in-stent stenosis. Given this residual is felt that a new stent was not warranted and no further invention would be undertaken. Wires and catheters then withdrawn and a silk pursestring was placed at the access site and the sheath removed followed by 5 minutes of minute pressure. The right femoral micropuncture sheath was then removed and pressure held for 5 minutes until hemostasis was obtained. The patient was then taken the recovery room with anticipated return to the PCU fo (more content not included)... Normal [facility] Partial Thromboplast Timeon 03-03-2025 aPTT Coag (Bld) [Time] 44.6 s High 24.1-36.2 [facility] Comment on above: Performed By: #### L 9100.0100 #### [facility] [address] [place], [address] aPTT Coag (Bld) [Time] 49.4 s High 24.1-36.2 [facility] Comment on above: Order Comment: PT OU T OF ROOM FOR TESTING. NURSE WIIL CALL WHEN BACK ONFLOOR Performed By: #### L 300.4310 ####[facility] [address] [place], [address] aPTT Coag (Bld) [Time] 42.5 s High 24.1-36.2 [facility] Comment on above: Performed By: #### L 300.4310 #### [facility] [address] [place], [address] aPTT Coag (Bld) [Time] 43.8 s High 24.1-36.2 [facility] Comment on above: Order Comment: Comme nts: heparin gtt Performed By: #### L 300.4310 #### [facility] [address] [place], [address] Partial Thromboplast Timeon 03-02-2025 aPTT Coag (Bld) [Time] 31.1 s Normal 24.1-36.2 [facility] Comment on above: Performed By: #### L 300.4310 ####[facility] [address] [place], [address] Prothrombin Time w/INRon INR Coag (PPP) [Relative time] 1.0 {INR} Normal [facility] Comment on above: Performed By: #### L 118.390 ####[facility] [address] [place], [place], [address] PT Coag (PPP) [Time] 13.6 s Normal 11.7-14.9 [facility] Comment on above: Performed By: #### L 300.3900 ####[facility] [address] [place], [address] MR/BMS.BVSon 02-16-2025 MR/BMS.BVS [facility] [address] [place], [place] [address] OFFICE VISIT Date of Service: 02/16/25 MR#: [id number] Acct: [id number] Name: DELTA CHEEK Jr. Rep #: [id number] : 1975 Provider: Dr. Bryn Mccall MD Age/Sex: 49/M [place] [facility] [place]: Signed Intake Vital Signs 01/26/25 08:20 02/09/25 13:08 02/16/25 15:27 Height 6 ft 2.02 in 6 ft 2.02 in Weight: 265 lb BP 156/98 H Blood Pressure Location Lt brachial Position Sitting Respiration 16 Pulse 72 Pulse Source Monitor Temp 98 F Temp Source Temporal Pulse Oximetry (%) 98 Oxygen Delivery Method room air Intake Visit Reasons: Post Thrombectomy FU Is patient in pain?: Yes Allergies No Known Allergies Allergy (Verified 02/16/25 15:28) Medications ???Medication ???Instructions ???Recorded ???Confirmed ???Type paroxetine HCl 20 mg tablet 1 tablet PO DAILY 02/13/23 5 History valsartan 160 1 tablet PO DAILY 02/13/23 5 History mg-hydrochlorothia zide 12.5 mg tablet aspirin 81 mg tablet,delayed 81 mg PO QDAY 01/02/25 02/16/25 Hi story release enoxaparin 120 mg/0.8 mL 120 mg (0.8 mL) subcut Q12H 30 10/0602/16/25 Rx subcutaneous syringe (Lovenox) days #48 mL baclofen 10 mg tablet 10 mg PO BID 02/16/25 02/16/25 His tory gabapentin 300 mg capsule 300 mg PO TID 02/16/25 02/16/25 Hi story oxycodone 5 mg tablet 5 mg PO Q6H PRN pain 7 days #28 02/16/25 Rx tabs Have you fallen in the past year?: No PFSH Medical History Wears glasses Marijuana use History of steroid therapy Arthritis Chewing tobacco nicotine dependence in remission History of pain when walking Hx of edema Hx of cardiovascular stress test DDD (degenerative disc disease), lumbar DVT (deep venous thrombosis) RSD lower limb HNP (herniated nucleus pulposus), lumbar Hypertension Hypertension Surgical History Hx of hernia repair History of femoral hernia repair Family History Father CVA (cerebral vascular accident) Father Heart disease Other Bleeding disorder CAD (coronary artery disease) Hypertension Social History Smoking Status: Former smoker Smokeless tobacco user: chewing tobacco how long ago did patient quit smokin can every 4-5 days alcohol intake: never HPI HPI HPI: DELTA CHEEK, is a 49 M who presents to the office today for follow up of venogram/thrombect jo of occluded left iliac stent. Overall leg doing better, mild intermittent edema though not as bead as when stent was occluded or at times of prior DVTs. He has been having more low back pain/hip pain radiating into leg over the past couple of weeks. He has been seen at pain management and placed on higher dose Neurontin; this has not worked well for him and he has significant cognitive/altered mental status side effects which limit his daily function and work. He would prefer to return to his prior regimen of oxycontin PRN and low dose once a day Neurontin. He has been seen by Dr. Aguirre's office with plans for MRI in March. We already have plans for venogram later this month to further assess his stents and potentially stent any residual stenosis if present. He has been tolerating lovenox ROS General General: Yes fatigue and weakness; No weight change, appetite, colon cancer or breast cancer HEENT HEENT: No difficulty swallowing, eye injury, eye surgery, swollen glands or hoarseness Endo Endocrine: No thyroid disease, diabetes mellitus, thyroid cancer, Hair loss, heat intolerance or cold intolerance Skin Skin: No rash or changing moles Musc Musculoskeletal: Yes back problems and arthritis; No rheumatoid arthritis, gout or joint pain Cardio Cardiovascular: Yes high blood pressure; No murmur, pacemaker, heart disease, atrial fibrillation, heart attack, heart stent, palpitations, shortness of breath with exertion or chest pain Psych Psychiatric: Yes anxiety; No depression or hearing voices Resp Respiratory: No shortness of breath, No sleep apnea, No cough, No COPD, No asthma, No emphysema and No wheezing Gastro Gastrointestinal: No abdominal pain, No nausea or vomiting, No diarrhea, Yes constipation, No blood in stool, No acid reflux, No hemorrhoids, No ulcers, No gallbladder problem and No black,tarry stools Daniel Hematologic: Yes blood thinners, No blood disorders, No bleeding, No anemia and No blood clots Neuro Neurologic: No system reviewed and no additional complaints, except as documented, No as per HPI, No abnormal gait, No abnormal hearing, No abnormal movements, No (more content not included)... Normal [facility] Absolute neutrophil countOrd ered By: Bryn Victor on 02-09-2025 Neutrophils (Bld) [#/Vol] 3.7 10*3/uL 2.0-7.7 [facility] Anion gap in Serum or Plasma Ordered By: Bryn Victor on 02-09-2025 Anion gap [Moles/Vol] 18 mmol/L High 03-26 [facility] BUN/creatinine ratioOrdered By: Bryn Victor on 02-09-2025 Urea nitrogen/Creatinine [Mass ratio] 15.1 mg/mg 08-31 [facility] Basic Metabolic Profile (BMP )on 02-09-2025 BUN/CRE 15.1 RATIO Normal 08-31 [facility] Comment on above: Performed By: #### L 265.3732 #### [facility] [place], [address] Calcium [Mass/Vol] 9.4 mg/dL Normal 7.6-11.0 [facility] Comment on above: Performed By: #### L 300.4310 #### [facility] [address] [place], [address] Chloride [Moles/Vol] 102 mmol/L Normal 98-108 [facility] Comment on above: Performed By: #### L 300.4310 #### [facility] [address] [place], [address] CO2 [Moles/Vol] 17.6 mmol/L Low 21.0-32.0 [facility] Comment on above: Performed By: #### L 300.4310 #### [facility] [address] [place], [address] Creatinine [Mass/Vol] 0.96 mg/dL Normal 0.70-1.20 [facility] Comment on above: Performed By: #### L 300.4310 #### [facility] [address] [place], [address] ECRCL 123.08 ml/min Normal 50-250 [facility] Comment on above: Performed By: #### L 300.4310 #### [facility] [address] [place], [address] GAP 18 High 5-15 [facility] Comment on above: Performed By: #### L 300.4310 #### [facility] [address] [place], [address] GFR/1.73 sq M.predicted among non-blacks MDRD (S/P/Bld) [Vol rate/Area] 95 mL/min/{1.73_m2} Normal >60 [facility] Comment on above: Result Comment: mL/m in/1.73m2 CKD-EPI Creatinine Equation (2020) Performed By: #### L 300.4310 #### [facility] [address] [place], [address] Glucose [Mass/Vol] 84 mg/dL Normal 70-99 [facility] Comment on above: Performed By: #### L 300.4310 #### [facility] [address] [place], [address] Potassium [Moles/Vol] 4.3 mmol/L Normal 3.3-5.1 [facility] Comment on above: Result Comment: Hemo lysis present, Results??could be affected. ?? Performed By: #### L 300.4310 #### [facility] [address] [place], [address] Sodium [Moles/Vol] 138 mmol/L Normal 133-145 [facility] Comment on above: Performed By: #### L 300.4310 #### [facility] [address] [place], [address] Urea nitrogen [Mass/Vol] 15 mg/dL Normal 4-19 [facility] Comment on above: Performed By: #### L 300.4310 #### [facility] [address] [place], [address] Basophil percentageOrdered B y: Bryn Victor on 02-09-2025 Basophils/100 WBC (Bld) 1.0 % 0-1 [facility] CBC W/Diff, Automatedon 01-12 Absolute Lymph 1.61 X10 3/uL Normal 0.83-4.51 [facility] Comment on above: Performed By: #### L 100.0100, L300.4310, L300.3900, L500.2500 ####[facility] [address] [place], [address] Absolute Neut 3.7 X10 3/uL Normal 2.0-7.7 [facility] Comment on above: Performed By: #### L 100.0100, L300.4310, L300.3900, L500.2500 ####[facility] [address] [place], [address] Basophils/100 WBC (Bld) 1.0 % Normal 0-1 [facility] Comment on above: Performed By: #### L 100.0100, L300.4310, L300.3900, L500.2500 ####[facility] [address] [place], [address] Eosinophils/100 WBC (Bld) 1.0 % Normal 0-5 [facility] Comment on above: Performed By: #### L 100.0100, L300.4310, L300.3900, L500.2500 ####[facility] [address] [place], [address] Erythrocyte distribution width (RBC) [Ratio] 12.4 % Normal 11.6-14.6 [facility] Comment on above: Performed By: #### L 100.0100, L300.4310, L300.3900, L500.2500 ####[facility] [address] [place], [address] Hematocrit (Bld) [Volume fraction] 42.9 % Normal 40-54 [facility] Comment on above: Performed By: #### L 100.0100, L300.4310, L300.3900, L500.2500 ####[facility] [address] [place], [address] Hemoglobin (Bld) [Mass/Vol] 14.2 g/dL Normal 13.0-16.5 [facility] Comment on above: Performed By: #### L 100.0100, L300.4310, L300.3900, L500.2500 ####[facility] [address] [place], [address] IG% 0.300 Normal 0.0-0.9 [facility] Comment on above: Result Comment: IG% - Immature Granulocytes (promyelocytes, myelocytes and metamyelocytes) > 1% indicates that a LEFT SHIFT is Present. Performed By: #### L 100.0100, L300.4310, L300.3900, L500.2500 ####[facility] [address] [place], [address] Lymphocytes/100 WBC (Bld) 26.4 % Normal 19-41 [facility] Comment on above: Performed By: #### L 100.0100, L300.4310, L300.3900, L500.2500 ####[facility] [address] [place], [address] MCH (RBC) [Entitic mass] 29.5 pg Normal 27.0-32.0 [facility] Comment on above: Performed By: #### L 100.0100, L300.4310, L300.3900, L500.2500 ####[facility] [address] [place], [address] MCHC (RBC) [Mass/Vol] 33.1 g/dL Normal 32-36 [facility] Comment on above: Performed By: #### L 100.0100, L300.4310, L300.3900, L500.2500 ####[facility] [address] [place], [address] MCV (RBC) [Entitic vol] 89.2 fL Normal 80-[address] [facility] Comment on above: Performed By: #### L 100.0100, L300.4310, L300.3900, L500.2500 ####[facility] [address] [place], [address] Monocytes/100 WBC (Bld) 10.2 % High 0-10 [facility] Comment on above: Performed By: #### L 100.0100, L300.4310, L300.3900, L500.2500 ####[facility] [address] [place], [address] Neutrophils/100 WBC (Bld) 61.1 % Normal 47-70 [facility] Comment on above: Performed By: #### L 100.0100, L300.4310, L300.3900, L500.2500 ####[facility] [address] [place], [address] Nucleated RBC (Bld) [#/Vol] 0 10*3/uL Normal 0-5 [facility] Comment on above: Performed By: #### L 100.0100, L300.4310, L300.3900, L500.2500 ####[facility] [address] [place], [address] Platelet mean volume (Bld) [Entitic vol] 9.2 fL Normal 6.2-12.0 [facility] Comment on above: Performed By: #### L 100.0100, L300.4310, L300.3900, L500.2500 ####[facility] [address] [place], [address] Platelets (Bld) [#/Vol] 307 10*3/uL Normal 150-450 [facility] Comment on above: Performed By: #### L 100.0100, L300.4310, L300.3900, L500.2500 ####[facility] [address] [place], [address] RBC (Bld) [#/Vol] 4.81 10*6/uL Normal 4.6-6.2 [facility] Comment on above: Performed By: #### L 100.0100, L300.4310, L300.3900, L500.2500 ####[facility] [address] [place], [address] RDW SD 40.6 fl Normal 35.1-43.9 [facility] Comment on above: Performed By: #### L 100.0100, L300.4310, L300.3900, L500.2500 ####[facility] [address] [place], [address] WBC (Bld) [#/Vol] 6.1 10*3/uL Normal 4.4-11.0 [facility] Comment on above: Performed By: #### L 100.0100, L300.4310, L300.3900, L500.2500 ####[facility] [address] [place], [address] Carbon dioxide, total [Moles /volume] in Central venous bloodOrdered By: Bryn Victor on 02-09-2025 CO2 [Moles/Vol] 17.6 mmol/L Low 21.0-32.0 [facility] Chloride assayOrdered By: Bonifacio Victor on 02-09-2025 Chloride [Moles/Vol] 102 mmol/L 98-108 [facility] Emergency Department Summary on 02-09-2025 Emergency Department Summary [facility] Medical Records Department [address] [place] [address] Emergency Department Summary 02/09/25 MR#: [id number] Acct: [id number] Name: ADIADELTA Gilberto Chan Rep #: [id number] : 1975 49 From: Bryn Victor DO PCP: Dr. Rogelio Colvin MD Status:DEP ER Location: ED HPI History of Present Illness Chief Complaint: Back Onset/Context/Richard ng Onset: Month(s) Context: Gradual Onset Timing: Continuous Quality: Aching (Arthritic) Location: Lumbar, Buttock and Left Leg (Left proximal thigh) Worsened by: improves with Movement Relieved by: Sitting and Bending Forward Associated Symptoms Associated Symptoms: Tingling and Radiation to Left Leg; Negative for Numbness, Radiation to Right Leg, Fever, Abdominal Pain, Dysuria, Unable to Ambulate, Unable to Transfer, Urinary Retention, Urinary Incontinence, Constipation or Fecal Incontinence Narrative Narrative: Patient presents with back pain that became worse today. Patient states it is gradually gotten worse. Patient states he has a history of prior back pain and sees Dr. Aguirre as well as Dr. Mccall. Patient states he has had a history of blood clots. Patient states that he was told that his vertebrae are pinching on a vein which causes his blood clots. Patient states that this pain is mainly over the lower lumbar area and radiates into the left thigh. Patient admits to some tingling into his left leg. Patient denies any weakness. Patient states it is better when he is able to sit up and arch his back forward. Patient states nothing seems to help with the pain. Patient denies any bowel or bladder changes. Patient denies any saddle anesthesia. Prior similar symptoms: Yes and With Prior Back Pain PFSH PFS Medical History Wears glasses Marijuana use History of steroid therapy Arthritis Chewing tobacco nicotine dependence in remission History of pain when walking Hx of edema Hx of cardiovascular stress test DDD (degenerative disc disease), lumbar DVT (deep venous thrombosis) RSD lower limb HNP (herniated nucleus pulposus), lumbar Hypertension Hypertension Home Medications ???Medication ???Instructions ???Recorded ???Last Taken ???Type paroxetine HCl 20 mg tablet 1 tablet PO DAILY 02/13/23 5 History valsartan 160 1 tablet PO DAILY 02/13/23 5 History mg-hydrochlorothia zide 12.5 mg tablet aspirin 81 mg tablet,delayed 81 mg PO QDAY 01/02/25 01/18/25 Hi story release enoxaparin 120 mg/0.8 mL 120 mg (0.8 mL) subcut Q12H 30 10/06 Unknown Rx subcutaneous syringe (Lovenox) days #48 mL oxycodone 5 mg tablet 5 mg PO Q6H PRN pain 3 days #12 Unknown Rx tabs Allergy/AdvReac Type Severity Reaction Status Date / Time No Known Allergies Allergy Verified 02/03/25 09:56 Family History Father CVA (cerebral vascular accident) Father Heart disease Other Bleeding disorder CAD (coronary artery disease) Hypertension Surgical History Hx of hernia repair History of femoral hernia repair Social History Smoking Status: Former smoker Smokeless tobacco user: chewing tobacco how long ago did patient quit smokin can every 4-5 days alcohol intake: never ROS ROS ED Constitutional Constitutional ED: Denies chills or fever(s) Eyes Eyes: Denies blurry vision or change in vision ENT ENT ED: Denies rhinorrhea or sore throat Cardiovascular Cardiovascular: Denies chest pain or palpitations Respiratory/Chest Respiratory/Chest: Denies cough or dyspnea Gastrointestinal Gastrointestinal: Reports nausea; Denies vomiting Genitourinary Genitourinary ED: Denies dysuria or hematuria Musculoskeletal Musculoskeletal: Reports back pain and neck pain Integumentary Denies abscess or rash Neurologic Neurologic: Denies headache(s) or weakness Allergic/Immunolog ic Allergic/Immunolog ic ED: Denies mouth swelling or urticaria EXAM Physical Exam Const Vital Signs: 02/09/25 13:08 02/09/25 15:50 02/09/25 16:59 Temperature 97.8 F 98.0 F Temperature Source Temporal Pulse Rate 84 79 72 Respiratory Rate 18 14 15 Blood Pressure 142/110 H 130/94 H Blood Pressure Mean 120 106 Pulse Ox 99 97 97 Oxygen Delivery Method Room Air Room Air Positive well nourished and well developed Constitutional Narrative: BMI is 32.7 General Appearance ED: well developed and NAD HEENT Reports moist mucous membranes Neck supple and no JVD Back/Spine Back/Spine Narrative: There is tenderness over the left lumbar paraspinal muscles. There is no midline tenderness. There is no bony crep (more content not included)... Normal [facility] Eosinophil percentageOrdered By: Bryn Victor on 02-09-2025 Eosinophils/100 WBC (Bld) 1.0 % 0-5 [facility] Erythrocyte distribution wid th ratioOrdered By: Bryn Victor on 02-09-2025 Erythrocyte distribution width (RBC) [Ratio] 12.4 % 11.6-14.6 [facility] Erythrocyte distribution wid th standard deviationOrdered By: Bryn Victor on 02-09-2025 Erythrocyte distribution width (RBC) [Entitic vol] 40.6 fL 35.1-43.9 [facility] Estimation of creatinine obed aranceOrdered By: Bryn Victor on 02-09-2025 Estimated Creatinine Clearance Calc 123.08 ml/min 50-250 [facility] GFR/1.73 sq M.predicted xander g non-blacks MDRD (S/P/Bld) [Vol rate/Area]Ordered By: Bryn Victor on 02-09-2025 Estimated GFR (MDRD) Non-Af Amer 95 >60 [facility] Comment on above: mL/min/1.73m2 CKD-EP I Creatinine Equation (2020) Hematocrit Auto (Bld) [Volum e fraction]Ordered By: Bryn Victor on 02-09-2025 Hematocrit (Bld) [Volume fraction] 42.9 % 40-54 [facility] Hemoglobin measurementOrdere d By: Bryn Victor on 02-09-2025 Hemoglobin (Bld) [Mass/Vol] 14.2 g/dL 13.0-16.5 [facility] Immature granulocytes/100 WB C Auto (Bld)Ordered By: Bryn Victor on 02-09-2025 Immature granulocytes/100 WBC (Bld) 0.300 % 0.0-0.9 [facility] Comment on above: IG% - Immature Granu locytes (promyelocytes, myelocytes and metamyelocytes) > 1% indicates that a LEFT SHIFT is Present. International normalized rat io (INR) calculationOrdered By: Bryn Victor on 02-09-2025 INR Coag (Bld) [Relative time] 0.9 {INR} [facility] Lymphocytes Auto (Unsp spec) [#/Vol]Ordered By: Bryn Victor on 02-09-2025 Lymphocytes (Bld) [#/Vol] 1.61 10*3/uL 0.83-4.51 [facility] Lymphocytes/100 WBC Auto (Un sp spec)Ordered By: Bryn Victor on 02-09-2025 Lymphocytes/100 WBC (Bld) 26.4 % 19-41 [facility] MCV (mean corpuscular volume ) determinationOrdered By: Bryn Victor on 02-09-2025 MCV (RBC) [Entitic vol] 89.2 fL 80-94 [facility] Mean corpuscular hemoglobin (MCH) determinationOrdered By: Bryn Victor on 02-09-2025 MCH (RBC) [Entitic mass] 29.5 pg 27.0-32.0 [facility] Mean corpuscular hemoglobin concentration (MCHC) determinationOrdered By: Bryn Victor on 02-09-2025 MCHC (RBC) [Mass/Vol] 33.1 g/dL 32-36 [facility] Mean platelet volume determi nationOrdered By: Bryn Victor on 02-09-2025 Platelet mean volume (Bld) [Entitic vol] 9.2 fL 6.2-12.0 [facility] Monocyte percentageOrdered B y: Bryn Victor on 02-09-2025 Monocytes/100 WBC (Bld) 10.2 % High 0-10 [facility] Neutrophil percentageOrdered By: Bryn Victor on 02-09-2025 Neutrophils/100 WBC (Bld) 61.1 % 47-70 [facility] Nucleated red blood cell per centageOrdered By: Bryn Victor on 02-09-2025 Nucleated RBC/100 WBC (Bld) [Ratio] 0 % 0-5 [facility] Partial Thromboplast Timeon 02-09-2025 aPTT Coag (Bld) [Time] 30.6 s Normal 24.1-36.2 [facility] Comment on above: Performed By: #### L 300.4310 #### [facility] [address] [place], [place], [id number] Platelet countOrdered By: Bonifacio Victor on 02-09-2025 Platelets (Bld) [#/Vol] 307 10*3/uL 150-450 [facility] Potassium (Unsp spec) [Mass/ Vol]Ordered By: Bryn Victor on 02-09-2025 Potassium [Moles/Vol] 4.3 mmol/L 3.3-5.1 [facility] Comment on above: Hemolysis present, R esults could be affected. Prothrombin Time w/INRon INR Coag (PPP) [Relative time] 0.9 {INR} Normal [facility] Comment on above: Performed By: #### L 300.4310 #### [facility] [address] [place], [address] PT Coag (PPP) [Time] 12.6 s Normal 11.7-14.9 [facility] Comment on above: Performed By: #### L 240.5883 #### [facility] [address] [place], [address] Prothrombin timeOrdered By: Bryn Victor on 02-09-2025 PT Coag (PPP) [Time] 12.6 s 11.7-14.9 [facility] RBC Auto (Bld) [#/Vol]Ordere d By: Bryn Victro on 02-09-2025 RBC (Bld) [#/Vol] 4.81 10*6/uL 4.6-6.2 [facility] Serum creatinine measurement (mass/volume)Ordered By: Bryn Victor on 02-09-2025 Creatinine [Mass/Vol] 0.96 mg/dL 0.70-1.20 [facility] Serum glucose measurement (m ass/volume)Ordered By: Bryn Victor on 02-09-2025 Glucose [Mass/Vol] 84 mg/dL 70-99 [facility] Serum or plasma calcium rosangela urement (mass/volume)Ordered By: Bryn Victor on 02-09-2025 Calcium [Mass/Vol] 9.4 mg/dL 7.6-11.0 [facility] Serum or plasma urea nitroge n measurement (mass/volume)Ordered By: Bryn Victor on 02-09-2025 Urea nitrogen [Mass/Vol] 15 mg/dL 4-19 [facility] Sodium levelOrdered By: Bryn Victor on 02-09-2025 Sodium [Moles/Vol] 138 mmol/L 133-145 [facility] Venous Duplex US, Unilateral on 02-09-2025 Venous Duplex US, Unilateral [facility] [address] [place] [address] Venous Duplex US, Unilateral 02/09/25 1542 MR#: [id number] Acct: [id number] Name: DELTA CHEEK Jr. Rep #: [id number] : 1975 49 From: Bryn Mccall MD Attending Dr: Status: DEP ER Ordering Dr: Bryn Victor DO Date: 02/09/25 Location: ED Sex: M C Admitted: Reason For Study Reason For Study: Left leg swelling RIGHT LEFT CFV is compressible, spontaneous, phasic, competent GSV is normal. and demonstrates normal augmentation. CIV normal phasic venous flow, stent noted. Procedure EIV has normal phasic venous flow. This is a venous duplex using B-mode, color flow and CFV is compressible, spontaneous, phasic, competent, spectral Doppler. and demonstrates normal augmentation. Exam performed in department. FV is partially compressible throughout with Compared to 11/24/2024, no significant changes. intraluminal echoes consistent with Chronic DVT. A preliminary report was called and/or faxed to . Normal venous flow noted. Valente. PopV is partially compressible with intraluminal echoes consistent with Chronic DVT. Normal venous flow noted. T/P trunk is partially compressible with intraluminal echoes consistent with Chronic DVT. Normal venous flow noted by color doppler. PTV is compressible. LT PerV is compressible. VL/Venous Duplex US, Unilateral Interpretation Summary Chronic deep vein thrombosis noted in the left femoral vein, popliteal vein, tibioperoneal trunk vein. Patent left common and external iliac vein stents with normal venous flow pattern. Ordering Physician: Bryn Victor Referring Physician: Rogelio Colvin Chi Performed By: Court Rod RVT 02/10/25 0953 Date Bryn Mccall MD CC: Dr. Bryn Victor DO; Dr. Rogelio Colvin MD Date Dictated: 02/09/25 1542 Date Transcribed: 02/10/2553 Water Conservationist: Signed Normal [facility] White blood cell (WBC) count Ordered By: Bryn Victor on 02-09-2025 WBC (Bld) [#/Vol] 6.1 10*3/uL 4.4-11.0 [facility] aPTT Coag (PPP) [Time]Ordere d By: Bryn Victor on 02-09-2025 aPTT Coag (Bld) [Time] 30.6 s 24.1-36.2 [facility] L/S Spine Bending Flex/[place] 02-03-2025 L/S Spine Bending Flex/Ext [facility] Imaging Services [address] [place] [address] L/S Spine Bending Flex/Ext MR#: [id number] Acct: [id number] Name: ADIADELTA Macias Rep #: [id number] : 1975 M 49 From: Mendy Back MD PCP: Dr. Rogelio Colvin MD Status: DEP AMB Study: L/S Spine Bending Flex/Ext Date of Exam: 02/03 Exam# [id number] Ordering Dr: Nadia Brandt EXAM: XR Lumbosacral Spine Flexion/Extension Only, 2 or 3 Views CLINICAL INDICATION: CHRONIC PAIN TECHNIQUE: Lateral flexion/extension views of the lumbar spine and sacrum. COMPARISON: No relevant prior studies available. FINDINGS: VERTEBRAE: Mild facet arthropathy of L4-S1. Normal sagittal alignment. No acute fracture. No significant dynamic instability. SACRUM/COCCYX: Unremarkable as visualized. No acute fracture. DISC SPACES: No acute findings. No significant narrowing. SOFT TISSUES: Unremarkable. RAD/L/S Spine Bending Flex/Ext IMPRESSION: No acute findings in the lumbar spine. Reading Location: [facility] CC: JORGE A Bauman; Dr. Rogelio Colvin MD Water Conservationist: Signed Normal [facility] Orthopedic Visit Reporton Orthopedic Visit Report [facility] [address] [place] [address] [address] [place] [address] OFFICE VISIT Date of Service: 02/03/25 MR#: [id number] Acct: [id number] Name: DELTA CHEEK Jr. Rep #: [id number] : 1975 Provider: JORGE A Bauman Age/Sex: 49/M [place] [facility] [place] Status: Signed Intake Vital Signs 01/26/25 08:20 02/03/25 09:53 Height 6 ft 2.02 in 6 ft 2.02 in Weight: 258 lb BMI 33.0 Intake Visit Reasons: LUMBAR SPINE Chief Complaint: Lumbar spine pain Accompanied by: Self Is patient in pain?: Yes Pain scale (1-10): 3 Allergies No Known Allergies Allergy (Verified 02/03/25 09:56) Medications ???Medication ???Instructions ???Recorded ???Confirmed ???Type paroxetine HCl 20 mg tablet 1 tablet PO DAILY 02/13/23 5 History valsartan 160 1 tablet PO DAILY 02/13/23 5 History mg-hydrochlorothia zide 12.5 mg tablet aspirin 81 mg tablet,delayed 81 mg PO QDAY 01/02/25 02/03/25 Hi story release enoxaparin 120 mg/0.8 mL 120 mg (0.8 mL) subcut Q12H 30 10/0602/03/25 Rx subcutaneous syringe (Lovenox) days #48 mL Have you fallen in the past year?: No PFSH Medical History Wears glasses Marijuana use History of steroid therapy Arthritis Chewing tobacco nicotine dependence in remission History of pain when walking Hx of edema Hx of cardiovascular stress test DDD (degenerative disc disease), lumbar DVT (deep venous thrombosis) RSD lower limb HNP (herniated nucleus pulposus), lumbar Hypertension Hypertension Surgical History Hx of hernia repair History of femoral hernia repair Family History Father CVA (cerebral vascular accident) Father Heart disease Other Bleeding disorder CAD (coronary artery disease) Hypertension Social History Smoking Status: Former smoker Smokeless tobacco user: chewing tobacco how long ago did patient quit smokin can every 4-5 days alcohol intake: never HPI LUMBAR SPINE Details: This documentation accurately reflects the service provided and the decisions made by me, JORGE A Bauman 02/03/25 0953. Part of today???s visit was documented by Patrice Mims MA, acting as scribe. DELTA CHEEK is a 49 year old M here today for lumbar spine pain. This started in November 2022. Patient lifted a 200lb object at his house and he felt a pop. On the fourth day he had to go to ER, he couldn't walk at all due to the pain. He got injections in December 2022 and they didn't work. Patient got an MRI done in 2022 and it showed a vein pinching which he was then referred to Dr. Mccall. Patient has 4 stents in the back. He had blood clots in his back and legs in the past. Occasionally will get pain down the right leg, denies any left sided involvement. Says that the pain down the legs is infrequent however he has continuous low back pain. Denies any numbness or tingling. Denies any back surgery. Patient states that his balance is good. He states that he works out at home and it has not helped and he is active at home. Patient says that he had an injection in [address] Flores. 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 He continues to stay very active during this time. He sees Dr. Mccall, takes Lovenox. Has another surgery next month with Dr. Mccall for further evaluation of his continued clots. Dr. Mccall recommended that he come to see us for evaluation of his back and says that Dr. Mccall wonders if his continued clots are related to the lumbar vertebrae pressing the bilateral iliac venous stents. Says that when he stands for a minute he has to sit down due to pain. He needs to lean on a shopping cart to help his pain. He has tried tylenol, NSAIDs, marijuana. He has done stretching and exercising on his own daily without any notable benefit. He has also tried a inversion table without any notable benefit. Ortho Exam General General: Yes no acute distress Neurologic: Yes alert and Yes oriented x3 Spine SPINE TESTING CERVICAL THORACIC LUMBAR Musculoskeletal Strength 0=absent - 5=normal Details: Neurological exam of the lower extremities shows 5x5 power. Normal sensations across all dermatomes. No hyperreflexia. No midline tenderness. Mild left-sided paraspinal tenderness. 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 Normal [facility] Anion gap in Serum or Plasma Ordered By: Teena Jacques on 01-27-2025 Anion gap [Moles/Vol] 9 mmol/L - [facility] BUN/creatinine ratioOrdered By: Teena Jacques on 01-27-2025 Urea nitrogen/Creatinine [Mass ratio] 18.3 mg/mg 08-31 [facility] Basic Metabolic Profile (BMP )on 01-27-2025 BUN/CRE 18.3 RATIO Normal 08-31 [facility] Comment on above: Performed By: #### L 9100.0100 #### [facility] [address] [place], [address] Calcium [Mass/Vol] 9.6 mg/dL Normal 7.6-11.0 [facility] Comment on above: Performed By: #### L 9100.0100 #### [facility] [address] [place], [address] Chloride [Moles/Vol] 101 mmol/L Normal 98-108 [facility] Comment on above: Performed By: #### L 9100.0100 #### [facility] [address] [place], [address] CO2 [Moles/Vol] 26.5 mmol/L Normal 21.0-32.0 [facility] Comment on above: Performed By: #### L 9100.0100 #### [facility] [address] [place], [address] Creatinine [Mass/Vol] 1.02 mg/dL Normal 0.70-1.20 [facility] Comment on above: Performed By: #### L 9100.0100 #### [facility] [address] [place], [address] GAP 9 Normal 5-15 [facility] Comment on above: Performed By: #### L 9099.0100 #### [facility] [address] [place], [address] GFR/1.73 sq M.predicted among non-blacks MDRD (S/P/Bld) [Vol rate/Area] 89 mL/min/{1.73_m2} Normal >60 [facility] Comment on above: Result Comment: mL/m in/1.73m2 CKD-EPI Creatinine Equation (2020) Performed By: #### L 9099.0100 #### [facility] [address] [place], [address] Glucose [Mass/Vol] 106 mg/dL High 70-99 [facility] Comment on above: Performed By: #### L 91.0100 #### [facility] [address] [place], [address] Potassium [Moles/Vol] 4.1 mmol/L Normal 3.3-5.1 [facility] Comment on above: Result Comment: Hemo lysis present, Results??could be affected. ?? Performed By: #### L 9099.0100 #### [facility] [address] [place], [address] Sodium [Moles/Vol] 137 mmol/L Normal 133-145 [facility] Comment on above: Performed By: #### L 9099.0100 #### [facility] [address] [place], [address] Urea nitrogen [Mass/Vol] 19 mg/dL Normal 4-19 [facility] Comment on above: Performed By: #### L 9100.0100 #### [facility] [address] [place], [address] CBC-Complete Blood Cnt No Meenu bonneron 01-27-2025 Erythrocyte distribution width (RBC) [Ratio] 13.1 % Normal 11.6-14.6 [facility] Comment on above: Performed By: #### L 9100.0100 #### [facility] [address] [place], [address] Hematocrit (Bld) [Volume fraction] 45.1 % Normal 40-54 [facility] Comment on above: Performed By: #### L 9100.0100 #### [facility] [address] [place], [address] Hemoglobin (Bld) [Mass/Vol] 15.1 g/dL Normal 13.0-16.5 [facility] Comment on above: Performed By: #### L 00.0100 #### [facility] [address] [place], [address] MCH (RBC) [Entitic mass] 30.0 pg Normal 27.0-32.0 [facility] Comment on above: Performed By: #### L 9100.0100 #### [facility] [address] [place], [address] MCHC (RBC) [Mass/Vol] 33.5 g/dL Normal 32-36 [facility] Comment on above: Performed By: #### L 9100.0100 #### [facility] [address] [place], [address] MCV (RBC) [Entitic vol] 89.7 fL Normal 80-94 [facility] Comment on above: Performed By: #### L 9100.0100 #### [facility] [address] [place], [address] Platelet mean volume (Bld) [Entitic vol] 9.3 fL Normal 6.2-12.0 [facility] Comment on above: Performed By: #### L 9100.0100 #### [facility] [address] [place], [address] Platelets (Bld) [#/Vol] 328 10*3/uL Normal 150-450 [facility] Comment on above: Performed By: #### L 9100.0100 #### [facility] [address] [place], [address] RBC (Bld) [#/Vol] 5.03 10*6/uL Normal 4.6-6.2 [facility] Comment on above: Performed By: #### L 9100.0100 #### [facility] [address] [place], [address] RDW SD 42.5 fl Normal 35.1-43.9 [facility] Comment on above: Performed By: #### L 00.0100 #### [facility] [address] [place], [address] WBC (Bld) [#/Vol] 7.8 10*3/uL Normal 4.4-11.0 [facility] Comment on above: Performed By: #### L 9100.0100 #### [facility] [address] [place], [address] Carbon dioxide, total [Moles /volume] in Central venous bloodOrdered By: Teena Jacques on 01-27-2025 CO2 [Moles/Vol] 26.5 mmol/L 21.0-32.0 [facility] Chloride assayOrdered By: Nathanael Jacques on 01-27-2025 Chloride [Moles/Vol] 101 mmol/L 98-108 [facility] Erythrocyte distribution wid th ratioOrdered By: Teena Jacques on 01-27-2025 Erythrocyte distribution width (RBC) [Ratio] 13.1 % 11.6-14.6 [facility] Erythrocyte distribution wid th standard deviationOrdered By: Teena Jacques on 01-27-2025 Erythrocyte distribution width (RBC) [Entitic vol] 42.5 fL 35.1-43.9 [facility] GFR/1.73 sq M.predicted xander g non-blacks MDRD (S/P/Bld) [Vol rate/Area]Ordered By: Teena Jacques on 01-27-2025 Estimated GFR (MDRD) Non-Af Amer 89 >60 [facility] Comment on above: mL/min/1.73m2 CKD-EP I Creatinine Equation (2020) Hematocrit Auto (Bld) [Volum e fraction]Ordered By: Teena Jacques on 01-27-2025 Hematocrit (Bld) [Volume fraction] 45.1 % 40-54 [facility] Hemoglobin measurementOrdere d By: Teena Jacques on 01-27-2025 Hemoglobin (Bld) [Mass/Vol] 15.1 g/dL 13.0-16.5 [facility] MCV (mean corpuscular volume ) determinationOrdered By: Teena Jacques on 01-27-2025 MCV (RBC) [Entitic vol] 89.7 fL 80-94 [facility] MR/BMS.BVSon 01-27-2025 MR/BMS.BVS [facility] [address] [facility] [place] [address] OFFICE VISIT Date of Service: 01/27/25 MR#: [id number] Acct: [id number] Name: DELTA CHEEK Jr. Rep #: [id number] : 1975 Provider: JORGE A Schmitt Age/Sex: 49/M [place] [facility] Status: Signed Intake Vital Signs 01/19/25 16:09 01/26/25 08:20 01/27/25 13:43 Height 6 ft 2.02 in 6 ft 2.02 in Weight: 254 lb BP 136/91 H Blood Pressure Location Rt brachial Position Sitting Respiration 16 Pulse 95 Pulse Source Monitor Temp 98.0 F Temp Source Temporal Pulse Oximetry (%) 98 Oxygen Delivery Method room air Intake Visit Reasons: Stitch removal 1 WK FU Is patient in pain?: Yes Allergies No Known Allergies Allergy (Verified 01/27/25 13:44) Medications ???Medication ???Instructions ???Recorded ???Confirmed ???Type paroxetine HCl 20 mg tablet 1 tablet PO DAILY 02/13/23 5 History valsartan 160 1 tablet PO DAILY 02/13/23 5 History mg-hydrochlorothia zide 12.5 mg tablet aspirin 81 mg tablet,delayed 81 mg PO QDAY 01/02/25 01/27/25 Hi story release enoxaparin 120 mg/0.8 mL 120 mg (0.8 mL) subcut Q12H 30 10/0601/27/25 Rx subcutaneous syringe (Lovenox) days #48 mL Have you fallen in the past year?: No PFSH Medical History Wears glasses Marijuana use History of steroid therapy Arthritis Chewing tobacco nicotine dependence in remission History of pain when walking Hx of edema Hx of cardiovascular stress test DDD (degenerative disc disease), lumbar DVT (deep venous thrombosis) RSD lower limb HNP (herniated nucleus pulposus), lumbar Hypertension Hypertension Surgical History Hx of hernia repair History of femoral hernia repair Family History Father CVA (cerebral vascular accident) Father Heart disease Other Bleeding disorder CAD (coronary artery disease) Hypertension Social History Smoking Status: Former smoker Smokeless tobacco user: chewing tobacco how long ago did patient quit smokin can every 4-5 days alcohol intake: never HPI HPI HPI: DELTA CHEEK, is a 49 M who presents to the office today for stitch removal following Percutaneous mechanical thrombectomy of the left external iliac vein, common iliac vein, inferior vena cava and Angioplasty left common iliac vein, external iliac vein, right common iliac vein 01/20/24. Following the procedure, he did have swelling/ecchymosi s around the IJ and R groin access site. He notes the ecchymosis and swelling are both improving, as is the discomfort at these sites and in his RLE. No concerns at the groin access sites that he wishes for me to examine. However, he has remained very fatigued which is unusual for him. He is tolerating the lovenox OK. He reports that on day of his procedure he had discussed with Dr. Mccall referral to Dr. Aguirre; he does have significant disc bulging which Dr. Mccall feels could be the source of his venous compression. ROS General General: Yes fatigue and weakness; No weight change, appetite, colon cancer or breast cancer HEENT HEENT: No difficulty swallowing, eye injury, eye surgery, swollen glands or hoarseness Endo Endocrine: No thyroid disease, diabetes mellitus, thyroid cancer, Hair loss, heat intolerance or cold intolerance Skin Skin: No rash or changing moles Musc Musculoskeletal: Yes back problems and arthritis; No rheumatoid arthritis, gout or joint pain Cardio Cardiovascular: Yes high blood pressure; No murmur, pacemaker, heart disease, atrial fibrillation, heart attack, heart stent, palpitations, shortness of breath with exertion or chest pain Psych Psychiatric: Yes anxiety; No depression or hearing voices Resp Respiratory: No shortness of breath, No sleep apnea, No cough, No COPD, No asthma, No emphysema and No wheezing Gastro Gastrointestinal: No abdominal pain, No nausea or vomiting, No diarrhea, Yes constipation, No blood in stool, No acid reflux, No hemorrhoids, No ulcers, No gallbladder problem and No black,tarry stools Daniel Hematologic: Yes blood thinners, No blood disorders, No bleeding, No anemia and No blood clots Neuro Neurologic: No system reviewed and no additional complaints, except as documented, No as per HPI, No abnormal gait, No abnormal hearing, No abnormal movements, No abnormal speech, No behavioral changes, No burning sensations, No confusion, No convulsions, No disequilibrium, Yes dizziness, No localized weakness, No frequent falls, No headache(s), No lack of coordination, No loss of vision, No memory loss, No numbn (more content not included)... Normal [facility] Mean corpuscular hemoglobin (MCH) determinationOrdered By: Teena Jacques on 01-27-2025 MCH (RBC) [Entitic mass] 30.0 pg 27.0-32.0 [facility] Mean corpuscular hemoglobin concentration (MCHC) determinationOrdered By: Teena Jacques on 01-27-2025 MCHC (RBC) [Mass/Vol] 33.5 g/dL 32-36 [facility] Mean platelet volume determi nationOrdered By: Teena Jacques on 01-27-2025 Platelet mean volume (Bld) [Entitic vol] 9.3 fL 6.2-12.0 [facility] Platelet countOrdered By: Nathanael dominique Georgie on 01-27-2025 Platelets (Bld) [#/Vol] 328 10*3/uL 150-450 [facility] Potassium (Unsp spec) [Mass/ Vol]Ordered By: Teena Jacques on 01-27-2025 Potassium [Moles/Vol] 4.1 mmol/L 3.3-5.1 [facility] Comment on above: Hemolysis present, R esults could be affected. RBC Auto (Bld) [#/Vol]Ordere d By: Teena Jacques on 01-27-2025 RBC (Bld) [#/Vol] 5.03 10*6/uL 4.6-6.2 [facility] Serum creatinine measurement (mass/volume)Ordered By: Teena Jacques on 01-27-2025 Creatinine [Mass/Vol] 1.02 mg/dL 0.70-1.20 [facility] Serum glucose measurement (m ass/volume)Ordered By: Teena Jacques on 01-27-2025 Glucose [Mass/Vol] 106 mg/dL High 70-99 [facility] Serum or plasma calcium rosangela urement (mass/volume)Ordered By: Teena Jacques on 01-27-2025 Calcium [Mass/Vol] 9.6 mg/dL 7.6-11.0 [facility] Serum or plasma urea nitroge n measurement (mass/volume)Ordered By: Teena Jacques on 01-27-2025 Urea nitrogen [Mass/Vol] 19 mg/dL 4-19 [facility] Sodium levelOrdered By: Stan Jacques on 01-27-2025 Sodium [Moles/Vol] 137 mmol/L 133-145 [facility] White blood cell (WBC) count Ordered By: Teena Jacques on 01-27-2025 WBC (Bld) [#/Vol] 7.8 10*3/uL 4.4-11.0 [facility] Absolute neutrophil countOrd ered By: Bryn Mccall on 01-20-2025 Neutrophils (Bld) [#/Vol] 9.0 10*3/uL High 2.0-7.7 [facility] Anion gap in Serum or Plasma Ordered By: Bryn Mccall on 01-20-2025 Anion gap [Moles/Vol] 10 mmol/L - [facility] BUN/creatinine ratioOrdered By: Bryn Mccall on 01-20-2025 Urea nitrogen/Creatinine [Mass ratio] 16.7 mg/mg - [facility] Basic Metabolic Profile (BMP )on 01-20-2025 BUN/CRE 16.7 RATIO Normal - [facility] Comment on above: Performed By: #### L 300.4310 #### [facility] [address] [place], [address] Calcium [Mass/Vol] 8.5 mg/dL Normal 7.6-11.0 [facility] Comment on above: Performed By: #### L 300.4310 #### [facility] [address] [place], [address] Chloride [Moles/Vol] 103 mmol/L Normal 98-108 [facility] Comment on above: Performed By: #### L 300.4310 #### [facility] [address] [place], [address] CO2 [Moles/Vol] 22.5 mmol/L Normal 21.0-32.0 [facility] Comment on above: Performed By: #### L 300.4310 #### [facility] [address] [place], [address] Creatinine [Mass/Vol] 0.95 mg/dL Normal 0.70-1.20 [facility] Comment on above: Performed By: #### L 300.4310 #### [facility] [address] [place], [address] ECRCL 124.37 ml/min Normal 50-250 [facility] Comment on above: Performed By: #### L 300.4310 #### [facility] [address] [place], [address] GAP 10 Normal 5-15 [facility] Comment on above: Performed By: #### L 300.4310 #### [facility] [address] [place], [address] GFR/1.73 sq M.predicted among non-blacks MDRD (S/P/Bld) [Vol rate/Area] 97 mL/min/{1.73_m2} Normal >60 [facility] Comment on above: Result Comment: mL/m in/1.73m2 CKD-EPI Creatinine Equation (2020) Performed By: #### L 300.4310 #### [facility] [address] [place], [address] Glucose [Mass/Vol] 115 mg/dL High 70-99 [facility] Comment on above: Performed By: #### L 300.4310 #### [facility] [address] [place], [address] Potassium [Moles/Vol] 3.7 mmol/L Normal 3.3-5.1 [facility] Comment on above: Performed By: #### L 300.4310 #### [facility] [address] [place], [address] Sodium [Moles/Vol] 135 mmol/L Normal 133-145 [facility] Comment on above: Performed By: #### L 300.4310 #### [facility] [address] [place], [address] Urea nitrogen [Mass/Vol] 16 mg/dL Normal 4-19 [facility] Comment on above: Performed By: #### L 300.4310 #### [facility] [address] [place], [address] Basophil percentageOrdered B y: Bryn Mccall on 01-20-2025 Basophils/100 WBC (Bld) 0.2 % 0-1 [facility] CBC W/Diff, Automatedon 03- Absolute Lymph 1.08 X10 3/uL Normal 0.83-4.51 [facility] Comment on above: Performed By: #### L 300.4310 #### [facility] [address] [place], [address] Absolute Neut 9.0 X10 3/uL High 2.0-7.7 [facility] Comment on above: Performed By: #### L 300.4310 #### [facility] [address] [place], [address] Basophils/100 WBC (Bld) 0.2 % Normal 0-1 [facility] Comment on above: Performed By: #### L 300.4310 #### [facility] [address] [place], [address] Eosinophils/100 WBC (Bld) 0.0 % Normal 0-5 [facility] Comment on above: Performed By: #### L 300.4310 #### [facility] [address] [place], [address] Erythrocyte distribution width (RBC) [Ratio] 12.7 % Normal 11.6-14.6 [facility] Comment on above: Performed By: #### L 300.4310 #### [facility] [address] [place], [address] Hematocrit (Bld) [Volume fraction] 35.5 % Low 40-54 [facility] Comment on above: Performed By: #### L 300.4310 #### [facility] [address] [place], [address] Hemoglobin (Bld) [Mass/Vol] 11.9 g/dL Low 13.0-16.5 [facility] Comment on above: Performed By: #### L 300.4310 #### [facility] [address] [place], [address] IG% 0.500 Normal 0.0-0.9 [facility] Comment on above: Result Comment: IG% - Immature Granulocytes (promyelocytes, myelocytes and metamyelocytes) > 1% indicates that a LEFT SHIFT is Present. Performed By: #### L 300.4310 #### [facility] [address] [place], [address] Lymphocytes/100 WBC (Bld) 9.9 % Low 19-41 [facility] Comment on above: Performed By: #### L 300.4310 #### [facility] [address] [place], [address] MCH (RBC) [Entitic mass] 29.8 pg Normal 27.0-32.0 [facility] Comment on above: Performed By: #### L 300.4310 #### [facility] [address] [place], [address] MCHC (RBC) [Mass/Vol] 33.5 g/dL Normal 32-36 [facility] Comment on above: Performed By: #### L 300.4310 #### [facility] [address] [place], [address] MCV (RBC) [Entitic vol] 89.0 fL Normal 80-94 [facility] Comment on above: Performed By: #### L 300.4310 #### [facility] [address] [place], [address] Monocytes/100 WBC (Bld) 7.2 % Normal 0-10 [facility] Comment on above: Performed By: #### L 300.4310 #### [facility] [address] [place], [address] Neutrophils/100 WBC (Bld) 82.2 % High 47-70 [facility] Comment on above: Performed By: #### L 300.4310 #### [facility] Laboratory [address] [place], [address] Nucleated RBC (Bld) [#/Vol] 0 10*3/uL Normal 0-5 [facility] Comment on above: Performed By: #### L 300.4310 #### [facility] [address] [place], [address] Platelet mean volume (Bld) [Entitic vol] 8.9 fL Normal 6.2-12.0 [facility] Comment on above: Performed By: #### L 300.4310 #### [facility] [address] [place], [address] Platelets (Bld) [#/Vol] 172 10*3/uL Normal 150-450 [facility] Comment on above: Performed By: #### L 300.4310 #### [facility] [address] [place], [address] RBC (Bld) [#/Vol] 3.99 10*6/uL Low 4.6-6.2 [facility] Comment on above: Performed By: #### L 300.4310 #### [facility] [address] [place], [address] RDW SD 41.7 fl Normal 35.1-43.9 [facility] Comment on above: Performed By: #### L 300.4310 #### [facility] [address] [place], [address] WBC (Bld) [#/Vol] 10.9 10*3/uL Normal 4.4-11.0 [facility] Comment on above: Performed By: #### L 300.4310 #### [facility] [address] [place], [address] Carbon dioxide, total [Moles /volume] in Central venous bloodOrdered By: Bryn Mccall on 01-20-2025 CO2 [Moles/Vol] 22.5 mmol/L 21.0-32.0 [facility] Chloride assayOrdered By: Bonifacio Mccall on 01-20-2025 Chloride [Moles/Vol] 103 mmol/L 98-108 [facility] Eosinophil percentageOrdered By: Bryn Mccall on 01-20-2025 Eosinophils/100 WBC (Bld) 0.0 % 0-5 [facility] Erythrocyte distribution wid th ratioOrdered By: Bryn Mccall on 01-20-2025 Erythrocyte distribution width (RBC) [Ratio] 12.7 % 11.6-14.6 [facility] Erythrocyte distribution wid th standard deviationOrdered By: Bryn Mccall on 01-20-2025 Erythrocyte distribution width (RBC) [Entitic vol] 41.7 fL 35.1-43.9 [facility] Estimation of creatinine obed aranceOrdered By: Bryn Mccall on 01-20-2025 Estimated Creatinine Clearance Calc 124.37 ml/min 50-250 [facility] GFR/1.73 sq M.predicted xander g non-blacks MDRD (S/P/Bld) [Vol rate/Area]Ordered By: Bryn Mccall on 01-20-2025 Estimated GFR (MDRD) Non-Af Amer 97 >60 [facility] Comment on above: mL/min/1.73m2 CKD-EP I Creatinine Equation (2020) Hematocrit Auto (Bld) [Volum e fraction]Ordered By: Bryn Mccall 01-20-2025 Hematocrit (Bld) [Volume fraction] 35.5 % Low 40-54 [facility] Hemoglobin measurementOrdere d By: Bryn Mccall on 01-20-2025 Hemoglobin (Bld) [Mass/Vol] 11.9 g/dL Low 13.0-16.5 [facility] Immature granulocytes/100 WB C Auto (Bld)Ordered By: Bryn Mccall 01-20-2025 Immature granulocytes/100 WBC (Bld) 0.500 % 0.0-0.9 [facility] Comment on above: IG% - Immature Granu locytes (promyelocytes, myelocytes and metamyelocytes) > 1% indicates that a LEFT SHIFT is Present. Lymphocytes Auto (Unsp spec) [#/Vol]Ordered By: Bryn Mccall on 01-20-2025 Lymphocytes (Bld) [#/Vol] 1.08 10*3/uL 0.83-4.51 [facility] Lymphocytes/100 WBC Auto (Un sp spec)Ordered By: Bryn Mccall on 01-20-2025 Lymphocytes/100 WBC (Bld) 9.9 % Low 19-41 [facility] MCV (mean corpuscular volume ) determinationOrdered By: Bryn Mccall on 01-20-2025 MCV (RBC) [Entitic vol] 89.0 fL 80-[address] [facility] Mean corpuscular hemoglobin (MCH) determinationOrdered By: Bryndebra Mccall on 01-20-2025 MCH (RBC) [Entitic mass] 29.8 pg 27.0-32.0 [facility] Mean corpuscular hemoglobin concentration (MCHC) determinationOrdered By: Bryndebra Mccall on 01-20-2025 MCHC (RBC) [Mass/Vol] 33.5 g/dL 32-36 [facility] Mean platelet volume determi nationOrdered By: Bryn Mccall on 01-20-2025 Platelet mean volume (Bld) [Entitic vol] 8.9 fL 6.2-12.0 [facility] Monocyte percentageOrdered B y: Bryn Mccall on 01-20-2025 Monocytes/100 WBC (Bld) 7.2 % 0-10 [facility] Neutrophil percentageOrdered By: Bryndebra Mccall on 01-20-2025 Neutrophils/100 WBC (Bld) 82.2 % High 47-70 [facility] Nucleated red blood cell per centageOrdered By: Bryn Mccall on 01-20-2025 Nucleated RBC/100 WBC (Bld) [Ratio] 0 % 0-5 [facility] Partial Thromboplast Timeon 01-20-2025 aPTT Coag (Bld) [Time] 35.8 s Normal 24.1-36.2 [facility] Comment on above: Performed By: #### L 9100.0100 #### [facility] [address] [place], [address] aPTT Coag (Bld) [Time] 33.8 s Normal 24.1-36.2 [facility] Comment on above: Performed By: #### L 9100.0100 #### [facility] [address] [place], [address] Platelet countOrdered By: Bonifacio Mccall on 01-20-2025 Platelets (Bld) [#/Vol] 172 10*3/uL 150-450 [facility] Potassium (Unsp spec) [Mass/ Vol]Ordered By: Bryn Mccall on 01-20-2025 Potassium [Moles/Vol] 3.7 mmol/L 3.3-5.1 [facility] RBC Auto (Bld) [#/Vol]Ordere d By: Bryn Mccall on 01-20-2025 RBC (Bld) [#/Vol] 3.99 10*6/uL Low 4.6-6.2 [facility] Serum creatinine measurement (mass/volume)Ordered By: Bryn Mccall on 01-20-2025 Creatinine [Mass/Vol] 0.95 mg/dL 0.70-1.20 [facility] Serum glucose measurement (m ass/volume)Ordered By: Bryn Mccall on 01-20-2025 Glucose [Mass/Vol] 115 mg/dL High 70-99 [facility] Serum or plasma calcium rosangela urement (mass/volume)Ordered By: Bryn Mccall on 01-20-2025 Calcium [Mass/Vol] 8.5 mg/dL 7.6-11.0 [facility] Serum or plasma urea nitroge n measurement (mass/volume)Ordered By: Bryn Mccall on 01-20-2025 Urea nitrogen [Mass/Vol] 16 mg/dL 4-19 [facility] Sodium levelOrdered By: Bryn Mccall on 01-20-2025 Sodium [Moles/Vol] 135 mmol/L 133-145 [facility] White blood cell (WBC) count Ordered By: Bryn Mccall on 01-20-2025 WBC (Bld) [#/Vol] 10.9 10*3/uL 4.4-11.0 [facility] aPTT Coag (PPP) [Time]Ordere d By: Bryn Mccall on 01-20-2025 aPTT Coag (Bld) [Time] 35.8 s 24.1-36.2 [facility] ACT Activated Clotting Timeo n 01-19-2025 ACTk CLOT TIME 222 sec High 74-137 [facility] Comment on above: Performed By: #### L 9100.0100 #### [facility] [address] [place], [address] ACTk CLOT TIME 181 sec High 74-137 [facility] Comment on above: Performed By: #### L 9100.0100 #### [facility] [address] [place], [address] ACTk CLOT TIME 199 sec High 74-137 [facility] Comment on above: Performed By: #### L 300.4310 #### [facility] [address] [place], [address] ACTk CLOT TIME 187 sec High 74-137 [facility] Comment on above: Performed By: #### L 300.4310 #### [facility] [address] [place], [address] Activated clotting timeOrder ed By: Bryn Mccall on 01-19-2025 Activated Clotting Time 222 sec High 74-[address] [facility] Basic Metabolic Profile (BMP )on 01-19-2025 BUN/CRE 21.6 RATIO High 10-20 [facility] Comment on above: Performed By: #### L 9100.0100 #### [facility] [address] [place], [address] Calcium [Mass/Vol] 9.3 mg/dL Normal 7.6-11.0 [facility] Comment on above: Performed By: #### L 9100.0100 #### [facility] [address] [place], [address] Chloride [Moles/Vol] 104 mmol/L Normal 98-108 [facility] Comment on above: Performed By: #### L 9100.0100 #### [facility] [address] [place], [address] CO2 [Moles/Vol] 25.2 mmol/L Normal 21.0-32.0 [facility] Comment on above: Performed By: #### L 9100.0100 #### [facility] [address] [place], [address] Creatinine [Mass/Vol] 1.09 mg/dL Normal 0.70-1.20 [facility] Comment on above: Performed By: #### L 9100.0100 #### [facility] [address] [place], [address] GAP 12 Normal 5-15 [facility] Comment on above: Performed By: #### L 9100.0100 #### [facility] [address] [place], [address] GFR/1.73 sq M.predicted among non-blacks MDRD (S/P/Bld) [Vol rate/Area] 82 mL/min/{1.73_m2} Normal >60 [facility] Comment on above: Result Comment: mL/m in/1.73m2 CKD-EPI Creatinine Equation (2020) Performed By: #### L 9100.0100 #### [facility] [address] [place], [address] Glucose [Mass/Vol] 103 mg/dL High 70-99 [facility] Comment on above: Performed By: #### L 9100.0100 #### [facility] [address] [place], [address] Potassium [Moles/Vol] 3.8 mmol/L Normal 3.3-5.1 [facility] Comment on above: Performed By: #### L 9100.0100 #### [facility] [address] [place], [address] Sodium [Moles/Vol] 141 mmol/L Normal 133-145 [facility] Comment on above: Performed By: #### L 9100.0100 #### [facility] [address] [place], [address] Urea nitrogen [Mass/Vol] 24 mg/dL High 4-19 [facility] Comment on above: Performed By: #### L 9100.0100 #### [facility] [address] [place], [address] CBC-Complete Blood Cnt No Di ffon 01-19-2025 Erythrocyte distribution width (RBC) [Ratio] 12.7 % Normal 11.6-14.6 [facility] Comment on above: Performed By: #### L 9100.0100 #### [facility] [address] [place], [address] Hematocrit (Bld) [Volume fraction] 41.8 % Normal 40-54 [facility] Comment on above: Performed By: #### L 9100.0100 #### [facility] [address] [place], [address] Hemoglobin (Bld) [Mass/Vol] 14.0 g/dL Normal 13.0-16.5 [facility] Comment on above: Performed By: #### L 9100.0100 #### [facility] [address] [place], [address] MCH (RBC) [Entitic mass] 29.5 pg Normal 27.0-32.0 [facility] Comment on above: Performed By: #### L 9100.0100 #### [facility] [address] [place], [address] MCHC (RBC) [Mass/Vol] 33.5 g/dL Normal 32-36 [facility] Comment on above: Performed By: #### L 9100.0100 #### [facility] [address] [place], [address] MCV (RBC) [Entitic vol] 88.0 fL Normal 80-94 [facility] Comment on above: Performed By: #### L 9100.0100 #### [facility] [address] [place], [address] Platelet mean volume (Bld) [Entitic vol] 8.9 fL Normal 6.2-12.0 [facility] Comment on above: Performed By: #### L 9100.0100 #### [facility] [address] [place], [address] Platelets (Bld) [#/Vol] 217 10*3/uL Normal 150-450 [facility] Comment on above: Performed By: #### L 9100.0100 #### [facility] [address] [place], [address] RBC (Bld) [#/Vol] 4.75 10*6/uL Normal 4.6-6.2 [facility] Comment on above: Performed By: #### L 9100.0100 #### [facility] [address] [place], [address] RDW SD 40.6 fl Normal 35.1-43.9 [facility] Comment on above: Performed By: #### L 9100.0100 #### [facility] [address] [place], [address] WBC (Bld) [#/Vol] 5.8 10*3/uL Normal 4.4-11.0 [facility] Comment on above: Performed By: #### L 9100.0100 #### [facility] [address] [place], [address] MR/POSTOP.ANEon 01-19-2025 MR/POSTOP.ANE [facility] Medical Records Department [address] [place] [address] Anesthesia Postop Eval I 01/19/25 1343 MR#: [id number] Acct: [id number] Name: DELTA CHEEK Jr. Rep #: [id number] : 1975 49 From: Marie Pennington 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 AUTOMATIC PCP: Dr. Rogelio Colvin MD Status:REG SDC Y Race: C Location: [place] [address] Anesthesia: Postop Eval I Current Vital Signs Temperature: 96.3 F Pulse Rate: 83 Blood Pressure: 131/88 Respiratory Rate: 20 Pulse Ox: 95 Oxygen Delivery Method: Venturi Mask Oxygen Flow Rate (L/min): 8 Assessment Airway patent: Yes Spontaneous unlabored respirations: Yes Mental status: Awake and Calm nausea: No Vomiting: No Anesthesia Complication: No Fluid Hydration Crystalloid volume administer (ml): 900 Total IV fluid infused: 900 Progress Note Anesthesia document: Postop Eval 1 completed: Yes 01/19/25 134 Date Marie Pennington 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 AUTOMATIC Cosigner Signature: Date CC: Signed Normal [facility] MR/[id number] 01-19-2025 [facility] Medical Records Department [address] [place] [address] Anesthesia Postop Eval II 01/19/25 1517 MR#: [id number] Acct: [id number] Name: ADIA,DELTA Gilberto Chan Rep #: [id number] : 1975 49 From: Joseph Segura MD PCP: Dr. Rogelio Colvin MD Status:ADM TATUM Y Race: C Location: [place] [address] Anesthesia Postop Eval I Sum Postop Eval Completion status Anesthesia document: Postop Eval 1 completed: Yes Anesthesia Postop Eval I Summary Anesthesia Postop Eval I Summary: Anesthesia Postop Eval I: Assessment Summary Airway patent Yes 01/19/25 13:44 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 [email or web address] Spontaneous unlabored Yes 01/19/25 13:44 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 [employer]OMAT[employer].LMIL respirations Mental status Awake,Calm 01/19/25 13:44 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 [employer]OM[employer].LMIL nausea No 01/19/25 13:44 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 [employer]OMAT[employer].LMIL Vomiting No 01/19/25 13:44 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 [email or web address].LMIL Anesthesia Postop Eval I: Fluid Summary Crystalloid volume administer 900 01/19/25 13:44 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 AUTOMATIC.LMIL (ml) Colloids volume administered ( ml) Blood Product volume administered (ml) Total IV fluid infused 900 01/19/25 13:44 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 [email or web address].LMIL Anesthesia Postop Eval I: Summary Notes Anesthesia Complication No 01/19/25 13:44 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 [email or web address].LMIL Anesthesia Complication Comment: Post-operative progress note Anesthesia: Postop Eval II Evaluation Mental status: Awake Pain Level: 1 nausea: No Vomiting: No 01/19/25 1517 Date Joseph Miller Signature: Date CC: Signed Normal [facility] Operative Reporton 5 Operative Report [facility] Medical Records Department [address] [place] [address] Operative Report 01/19/25 1642 MR#: [id number] Acct: [id number] Name: DELTA CHEEK Jr. Rep #: [id number] : 1975 49 From: Bryn Mccall MD PCP: Dr. 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 Post-Operative Diagnosis: Same Surgery/Procedure Performed: Venogram inferior vena cava Intravascular ultrasound left external and common iliac vein, inferior vena cava Percutaneous mechanical thrombectomy of the left external iliac vein, common iliac vein, inferior vena cava Angioplasty left common iliac vein, external iliac vein, right common iliac vein sterile processing manager: No Type of Anesthesia: General RN Documented Start/Stop Times: Operation Date: 01/19/25 09:00 Case Time Into Pre-Op 01/19/25 07:29 Out of Pre-Op 01/19/25 08:32 Into Recovery 01/19/25 13:34 Out of Recovery 01/19/25 15:51 Procedure Start Time: 09:30 Procedure Stop Time: 13:30 Select all DRAINS/GRAFTS/IMPL ANTS that apply: None Estimated Blood Loss: 100 Specimen collected: No Description of surgery: HPI: Patient is a 49-year-old male with prior history of extensive left lower extremity deep venous thrombosis who was also found to have significant iliac vein and inferior vena cava compression. At the time he underwent percutaneous mechanical thrombectomy and angioplasty and stenting of the inferior vena cava and bilateral common and external iliac veins. He had been doing well until in recent months when he had developed increasing left leg pain, tightness. Initial ultrasound imaging suggested no thrombus of the left lower extremity in the visualized portion of the stent appeared to be patent with no thrombus. He was initially taken for diagnostic venogram which revealed total occlusion of the left common iliac vein stent, nonocclusive thrombus of the left external iliac vein stent, and in-stent stenosis of the right common iliac vein stent. He is taken now for percutaneous mechanical thrombectomy. Description of procedure: Upon obtaining form consent verification correct patient procedure site patient was taken the Mathematics Improvement Teacher he was placed on general anesthesia. He was then positioned prepped and draped in usual sterile fashion time was performed. Skin overlying the right internal jugular vein was anesthetized 1% lidocaine the vessel accessed under ultrasound guidance with a micropuncture needle wire. This then exchanged for a micropuncture sheath through which a Bentson wire is advanced into the inferior vena cava. The micropuncture sheath and exchanged for an 8 Portuguese sheath which was advanced over the wire under fluoroscopic guidance into the inferior vena cava just superior to the previously placed stents. Efforts to engage the occluded left iliac vein stent were undertaken with an angled quick cross catheter and a stiff Glidewire. Likely due to the IVC thrombus and thrombus to the proximal edge of the stent we are unable to effectively initiate crossing the occlusion. Next under ultrasound guidance the left common femoral vein was accessed with a micropuncture needle wire then exchanged for micropuncture sheath. Through this hand- injection iliofemoral angiograms performed revealing satisfactory positioning and no extravasation or dissection. Through the micropuncture sheath a Bentson wire was advanced and the micropuncture sheath exchanged for short 5 Portuguese sheath. The Bentson wire was exchanged for the straight stiff Glidewire and utilizing this in the quick cross catheter we were able to engage the inferior edge of the occlusion and successfully cross while maintaining position what appeared to be true lumen of the stent and vessel. The wire was advanced into the vena cava and a snare was advanced via the right IJ sheath staring the wire and pulling it through to the IJ sheath hub. A quick cross catheter then advanced over the wire from the IJ access externalizing over the wire through the femoral access. The glide wire was then exchanged for an Amplatz wire which was advanced through from the IJ access and externalized through the femoral access. The catheter was then withdrawn and intravascular ultrasound probe advanced over the wire and recorded pullback performed of the left external iliac vein, common iliac vein, inferior vena cava. This confirmed position within true lumen of the stent and delineated the extent of thrombus. The patient was in heparinized allowed to circulate for 3 minutes. The 8 Portuguese sheath was then exchanged for the Inari Protrieve distal protection sheath in the filter mechanism deployed. Next a At[place]on [place] 10 (more content not included)... Normal [facility] Partial Thromboplast Timeon 01-19-2025 aPTT Coag (Bld) [Time] 31.8 s Normal 24.1-36.2 [facility] Comment on above: Performed By: #### L 300.4310 #### [facility] [address] [facility] [place], [address] MR/PAT.ANEon 01-15-2025 MR/PAT[facility] Medical Records Department [address] [place] [address] PAT - Anesthesia 01/15/25 1631 MR#: [id number] Acct: [id number] Name: DELTA CHEEK Jr. Rep #: [id number] : 1975 49 From: Andrew Carranza MD PCP: Dr. Rogelio Colvin MD Status:PRE [facility] Y Race: C Location: [facility] Pre-Assessment Diagnosis/Proposed Procedure Planned Operative Procedure(s): THROMBECTOMY Anesthesia History Anesthesia History - napper runner: Anesthesia History - napper runner Hx Hospitalization No 03/06/25 13:38 Any Problems With Anesthesia No 01/15/25 13:38 Cholinesterase deficiency No 01/15/25 13:38 You/Your Family Experience No 01/15/25 13:38 fever (hyperthermia) with Relationship Recent Exposure to Contagious Disease Does patient have nerve No 01/15/25 13:38 stimulator Patient instructed to have device shut off --Does patient have Pacemaker or ICD? When Was Last Pacemaker Check QUESTION #4 FULL TEXT: You/Your Family Experience fever (hyperthermia) with Anesthesia Last Oral Intake Last Oral intake: Last Oral Intake NPO since Meds taken in AM with sips of water? Meds patient instructed to take am of surgery PONV PONV - napper runner: PONV - napper runner Female No 01/15/25 13:38 HX of Motion Sickness No 01/15/25 13:38 HX of N/V After Surgery No 01/15/25 13:38 Non-Smoker Yes 01/15/25 13:38 Duration of Surgery greater No 01/15/25 13:38 than 60 minutes Number of Risk Factors 1 01/15/25 13:38 PONV Score Low Risk 01/15/25 13:38 Height Weight Height Weight: Anesthesia: Height Weight Height 6 ft 2.02 in 01/14/25 10:56 Respiratory Assessment Respiratory Assessment - napper runner: Respiratory Tract Infection Hx - napper runner Hx Respiratory Tract Infection No 01/15/25 13:38 STOP Sleep Apnea STOP Sleep Apnea - napper runner: STOP Sleep Apnea - napper runner Hx Hypertension Yes: CONTROLLED ON MED 01/15/25 13:38 Hx Sleep Apnea No 01/15/25 13:38 CPAP BIPAP Do you snore loudly (louder No 01/15/25 13:38 than talking or can be heard Do you often feel tired/ No 01/15/25 13:38 fatigued/ sleepy during daytime? Has anyone observed you stop No 01/15/25 13:38 breathing during sleep? STOP Results Negative 01/15/25 13:38 QUESTION #5 FULL TEXT : Do you snore loudly (louder than talking or can be heard through closed doors)? 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 Specify any problems Hx of Preganancy in last 3 N/A 01/15/25 13:38 Months Nurse Filling Out Transfusion VCHRISTIN 01/15/25 13:38 Questions: Date: 01/15/25 01/15/25 13:38 Time: 13:40 01/15/25 13:38 Patient unable to answer at this time (ie. confused, unrespo /Reproduc tion History /Reproduc tive History - napper runner: /Reproduc tive Hx- napper runner Hx Now No 01/15/25 13:38 Gestational Age (in weeks): EDC: Hx Hx Para Hx Section SAB No 01/15/25 13:38 PFSH Medical History (Updated 01/15/25 @ 13:38 by Denise Jimenes) Wears glasses Marijuana use History of steroid therapy Arthritis Chewing tobacco nicotine dependence in remission History of pain when walking Hx of edema Hx of cardiovascular stress test DDD (degenerative disc disease), lumbar DVT (deep venous thrombosis) RSD lower limb HNP (herniated nucleus pulposus), lumbar Hypertension Hypertension Home Medications ???Medication ???Instructions ???Recorded ???Last Taken ???Type paroxetine HCl 20 mg tablet 1 tablet PO DAILY 02/13/23 Unknown History valsartan 160 1 tablet PO DAILY 02/13/23 Unknown History mg-hydrochlorothia zide 12.5 mg tablet aspirin 81 mg tablet,delayed 81 mg PO QDAY 01/02/25 Unknown His tory release enoxaparin 120 mg/0.8 mL 120 mg (0.8 mL) subcut Q12H 30 05/06 Unknown Rx subcutaneous syringe (Lovenox) days #48 mL Allergy/AdvReac (more content not included)... Normal [facility] Anion gap in Serum or Plasma Ordered By: Bryn Mccall on 01-14-2025 Anion gap [Moles/Vol] 11 mmol/L 5-15 [facility] BUN/creatinine ratioOrdered By: Bryn Mccall on 01-14-2025 Urea nitrogen/Creatinine [Mass ratio] 11.8 mg/mg 10- [facility] Basic Metabolic Profile (BMP )on 01-14-2025 BUN/CRE 11.8 RATIO Normal - [facility] Comment on above: Performed By: #### L 300.4310 #### [facility] [address] [place], [address] Calcium [Mass/Vol] 9.4 mg/dL Normal 7.6-11.0 [facility] Comment on above: Performed By: #### L 300.4310 #### [facility] [address] [place], [address] Chloride [Moles/Vol] 101 mmol/L Normal 98-108 [facility] Comment on above: Performed By: #### L 300.4310 #### [facility] [address] [place], [address] CO2 [Moles/Vol] 26.4 mmol/L Normal 21.0-32.0 [facility] Comment on above: Performed By: #### L 300.4310 #### [facility] [address] [place], [address] Creatinine [Mass/Vol] 1.17 mg/dL Normal 0.70-1.20 [facility] Comment on above: Performed By: #### L 300.4310 #### [facility] [address] [place], [address] ECRCL 100.60 ml/min Normal 50-250 [facility] Comment on above: Performed By: #### L 300.4310 #### [facility] [address] [place], [address] GAP 11 Normal 5-15 [facility] Comment on above: Performed By: #### L 300.4310 #### [facility] [address] [place], [address] GFR/1.73 sq M.predicted among non-blacks MDRD (S/P/Bld) [Vol rate/Area] 75 mL/min/{1.73_m2} Normal >60 [facility] Comment on above: Result Comment: mL/m in/1.73m2 CKD-EPI Creatinine Equation (2020) Performed By: #### L 300.4310 #### [facility] [address] [place], [address] Glucose [Mass/Vol] 102 mg/dL High 70-99 [facility] Comment on above: Performed By: #### L 300.4310 #### [facility] [address] [place], [address] Potassium [Moles/Vol] 4.1 mmol/L Normal 3.3-5.1 [facility] Comment on above: Performed By: #### L 300.4310 #### [facility] [address] [place], [address] Sodium [Moles/Vol] 138 mmol/L Normal 133-145 [facility] Comment on above: Performed By: #### L 300.4310 #### [facility] [address] [place], [address] Urea nitrogen [Mass/Vol] 14 mg/dL Normal 4-19 [facility] Comment on above: Performed By: #### L 300.4310 #### [facility] [address] [place], [address] CBC-Complete Blood Cnt No Di ffon 01-14-2025 Erythrocyte distribution width (RBC) [Ratio] 12.9 % Normal 11.6-14.6 [facility] Comment on above: Performed By: #### L 300.4310 #### [facility] [address] [place], [address] Hematocrit (Bld) [Volume fraction] 46.4 % Normal 40-54 [facility] Comment on above: Performed By: #### L 300.4310 #### [facility] [address] [place], [address] Hemoglobin (Bld) [Mass/Vol] 15.3 g/dL Normal 13.0-16.5 [facility] Comment on above: Performed By: #### L 300.4310 #### [facility] [address] [place], [address] MCH (RBC) [Entitic mass] 29.2 pg Normal 27.0-32.0 [facility] Comment on above: Performed By: #### L 300.4310 #### [facility] [address] [place], [address] MCHC (RBC) [Mass/Vol] 33.0 g/dL Normal 32-36 [facility] Comment on above: Performed By: #### L 300.4310 #### [facility] [address] [place], [address] MCV (RBC) [Entitic vol] 88.5 fL Normal 80-94 [facility] Comment on above: Performed By: #### L 300.4310 #### [facility] [address] [place], [address] Platelet mean volume (Bld) [Entitic vol] 8.8 fL Normal 6.2-12.0 [facility] Comment on above: Performed By: #### L 300.4310 #### [facility] [address] [place], [address] Platelets (Bld) [#/Vol] 259 10*3/uL Normal 150-450 [facility] Comment on above: Performed By: #### L 300.4310 #### [facility] [address] [place], [address] RBC (Bld) [#/Vol] 5.24 10*6/uL Normal 4.6-6.2 [facility] Comment on above: Performed By: #### L 300.4310 #### [facility] [address] [place], [address] RDW SD 41.6 fl Normal 35.1-43.9 [facility] Comment on above: Performed By: #### L 300.4310 #### [facility] [address] [place], [address] WBC (Bld) [#/Vol] 6.2 10*3/uL Normal 4.4-11.0 [facility] Comment on above: Performed By: #### L 300.4310 #### [facility] [address] [place], [address] Carbon dioxide, total [Moles /volume] in Central venous bloodOrdered By: Bryn Mccall on 01-14-2025 CO2 [Moles/Vol] 26.4 mmol/L 21.0-32.0 [facility] Chloride assayOrdered By: Bonifacio Mccall on 01-14-2025 Chloride [Moles/Vol] 101 mmol/L 98-108 [facility] Erythrocyte distribution wid th ratioOrdered By: Bryn Mccall on 01-14-2025 Erythrocyte distribution width (RBC) [Ratio] 12.9 % 11.6-14.6 [facility] Erythrocyte distribution wid th standard deviationOrdered By: Bryn Mccall on 01-14-2025 Erythrocyte distribution width (RBC) [Entitic vol] 41.6 fL 35.1-43.9 [facility] Estimation of creatinine obed aranceOrdered By: Bryn Mccall on 01-14-2025 Estimated Creatinine Clearance Calc 100.60 ml/min 50-250 [facility] GFR/1.73 sq M.predicted xander g non-blacks MDRD (S/P/Bld) [Vol rate/Area]Ordered By: Bryn Mccall on 01-14-2025 Estimated GFR (MDRD) Non-Af Amer 75 >60 [facility] Comment on above: mL/min/1.73m2 CKD-EP I Creatinine Equation (2020) Hematocrit Auto (Bld) [Volum e fraction]Ordered By: Bryn Mccall on 01-14-2025 Hematocrit (Bld) [Volume fraction] 46.4 % 40-54 [facility] Hemoglobin measurementOrdere d By: Bryn Mccall on 01-14-2025 Hemoglobin (Bld) [Mass/Vol] 15.3 g/dL 13.0-16.5 [facility] MCV (mean corpuscular volume ) determinationOrdered By: Bryn Mccall on 01-14-2025 MCV (RBC) [Entitic vol] 88.5 fL 80-94 [facility] Mean corpuscular hemoglobin (MCH) determinationOrdered By: Bryn Mccall on 01-14-2025 MCH (RBC) [Entitic mass] 29.2 pg 27.0-32.0 [facility] Mean corpuscular hemoglobin concentration (MCHC) determinationOrdered By: Bryn Mccall on 01-14-2025 MCHC (RBC) [Mass/Vol] 33.0 g/dL 32-36 [facility] Mean platelet volume determi nationOrdered By: Bryn Mccall on 01-14-2025 Platelet mean volume (Bld) [Entitic vol] 8.8 fL 6.2-12.0 [facility] Operative Reporton Operative Report [facility] Medical Records Department [address] [place] [address] Operative Report 01/14/25 1615 MR#: [id number] Acct: [id number] Name: DELTA CHEEK Jr. Rep #: [id number] : 1975 49 From: Bryn Mccall MD PCP: Dr. Rogelio Colvin MD Status:REG [facility] Location: [facility] Operative Report (Standard) Operative Information Date of Procedure: 01/14/25 Pre-Operative Diagnosis: Post thrombotic syndrome left lower extremity Post-Operative Diagnosis: Subacute thrombosis left common and external iliac vein stents Greater than 50% stenosis right common iliac vein stent Surgery/Procedure Performed: Venogram inferior vena cava Intravascular ultrasound inferior vena cava, right common and external iliac vein, left common and external iliac vein sterile processing manager: No Type of Anesthesia: Local and Sedation,Conscious Procedure Start Time: 14:00 Procedure Stop Time: 15:00 Select all DRAINS/GRAFTS/IMPL ANTS that apply: None Estimated Blood Loss: 5 Specimen collected: No Description of surgery: HPI: Patient is a 49-year-old male with history of prior extensive left lower extremity deep vein thrombosis caused by compression of his inferior vena cava at the confluence by protruded lumbar disc. At the time he underwent mechanical thrombectomy and angioplasty and stenting of the inferior vena cava extending into the common iliac veins and external iliac veins bilaterally. Over the past month he has developed increasing left lower extremity tightness and discomfort as well as edema. He had a duplex evaluation which revealed no deep vein thrombosis. He is taken now for venogram to confirm the status of his iliac vein stents. Description of procedure: Upon obtaining form consent and verification correct patient procedure site patient taken to the Mathematics Improvement Teacher he was positioned prepped and draped in usual sterile fashion. Timeouts performed and conscious sedation ministered Versed and fentanyl. Skin overlying the left common femoral vein was anesthetized with 1% lidocaine the vessel accessed under ultrasound guidance with a micropuncture needle wire. This exchanged for micropuncture sheath through which hand- injection ilio caval venogram was performed which revealed satisfactory position with no extravasation or dissection. This also revealed total occlusion of the superior two thirds of the stented segment with significant cross pelvic collaterals. A glide advantage wire was then advanced in the micropuncture sheath exchanged for a 10 Portuguese sheath. Through this a Kumpe catheter and a straight stiff Glidewire were utilized to navigate the occluded stent with only moderate resistance. Once the wire was advanced into the vena cava the catheter was exchanged for a quick cross catheter which was able to be advanced beyond the stented segment. The glide wire was exchanged for a glide advantage wire. Next the skin overlying the right common femoral vein was anesthetized 1% lidocaine the vessel accessed with micropuncture needle wire and ultrasound guidance. This was then exchanged for micropuncture sheath routine injection ilio caval venogram was performed which revealed satisfactory position with no extravasation or dissection. This confirmed patent right iliac vein stents with what appeared to be some stenosis at the superior aspect. Through the micropuncture sheath a Bentson wire was advanced the micropuncture sheath exchanged for an 8 Portuguese sheath. Next intravascular ultrasound probe was advanced via the left access sheath and recorded pullback performed of the IVC, left common iliac vein, left external iliac vein. This revealed position within the true lumen of the vessel and position maintained within the lumen of the stent. This also revealed thrombus of mixed chronicity mostly more subacute in appearance. Given the presence of more acute thrombus rather than chronic occlusion and/or into microplates it was felt that mechanical thrombectomy would be required rather than simple angioplasty and/or restenting. The ultrasound probe was then withdrawn and advanced for the right femoral access sheath and recorded pullback performed of the IVC, right common iliac vein, right external leg vein. This again confirmed position within the lumen of the stent and also revealed focal area of stenosis without thrombus in the common iliac vein segment of the stent. Given the more complex nature of the problem it was felt that intervention today would not be undertaken and the patient will be returned with general anesthetic and the thrombectomy equipment required. Wires and sheath were then withdrawn manner pressure held for 10 minutes until hemostasis was obtained. The patient was taken recovery for bedrest prior to discharge to home. Surgical Findings: Subacute thrombus in the left common and external iliac vein stent Stenosis without thrombus in the right common iliac (more content not included)... Normal [facility] Platelet countOrdered By: Bonifacio Mccall on 01-14-2025 Platelets (Bld) [#/Vol] 259 10*3/uL 150-450 [facility] Potassium (Unsp spec) [Mass/ Vol]Ordered By: Bryn Mccall on 01-14-2025 Potassium [Moles/Vol] 4.1 mmol/L 3.3-5.1 [facility] RBC Auto (Bld) [#/Vol]Ordere d By: Bryn Mccall on 01-14-2025 RBC (Bld) [#/Vol] 5.24 10*6/uL 4.6-6.2 [facility] Serum creatinine measurement (mass/volume)Ordered By: Bryn Mccall on 01-14-2025 Creatinine [Mass/Vol] 1.17 mg/dL 0.70-1.20 [facility] Serum glucose measurement (m ass/volume)Ordered By: Bryn Mccall on 01-14-2025 Glucose [Mass/Vol] 102 mg/dL High 70-99 [facility] Serum or plasma calcium rosangela urement (mass/volume)Ordered By: Byrn Mccall on 01-14-2025 Calcium [Mass/Vol] 9.4 mg/dL 7.6-11.0 [facility] Serum or plasma urea nitroge n measurement (mass/volume)Ordered By: Bryn Mccall on 01-14-2025 Urea nitrogen [Mass/Vol] 14 mg/dL 4-19 [facility] Sodium levelOrdered By: Bryn Mccall on 01-14-2025 Sodium [Moles/Vol] 138 mmol/L 133-145 [facility] White blood cell (WBC) count Ordered By: Bryn Mccall on 01-14-2025 WBC (Bld) [#/Vol] 6.2 10*3/uL 4.4-11.0 [facility] Lumbar Spine 2 or 3 Viewson 01-02-2025 Lumbar Spine 2 or 3 Views [facility] Imaging Services [address] [place] [address] [id number] Lumbar Spine 2 or 3 Views MR#: [id number] Acct: [id number] Name: DELTA CHEEK Gilberto Chan Rep #: [id number] : 1975 M 49 From: Delta Prakash PCP: Dr. Rogelio Colvin MD Status: REG CLI Study: Lumbar Spine 2 or 3 Views Date of Exam: Exam# [id number] Ordering Dr: Teena Jacques PROCEDURE: Lumbar spine radiographs REASON FOR EXAM: Pain TECHNIQUE: 2 view(s) of the lumbar spine COMPARISON: 01/17/2023 FINDINGS: See impression RAD/Lumbar Spine 2 or 3 Views IMPRESSION: Vertebral body heights are within normal limits. No significant malalignment. Moderate disc space narrowing and facet arthropathy at L4-L5. Sacroiliac joints are intact. Bilateral iliac stents noted. Reading Location: [facility] CC: JORGE A Schmitt; Dr. Rogelio Colvin MD Water Conservationist: Signed Normal [facility] MR/BMS.BVSon 01-02-2025 MR/BMS.BVS [facility] [address] [place], [place] [address] OFFICE VISIT Date of Service: 01/02/25 MR#: [id number] Acct: [id number] Name: DELTA CHEEK Jr. Rep #: [id number] : 1975 Provider: JORGE A Schmitt Age/Sex: 49/M [facility] Status: Signed Intake Vital Signs 11/03/24 23:51 12/12/24 10:55 01/02/25 10:47 Height 6 ft 2.02 in 6 ft 2.02 in Weight: 253 lb BP 132/87 H Blood Pressure Location Rt brachial Position Sitting Respiration 16 Pulse 85 Pulse Source Monitor Temp 98.4 F Temp Source Temporal Pulse Oximetry (%) 98 Oxygen Delivery Method room air Intake Visit Reasons: L calf swelling, pain and discolor,Discuss testing Chief Complaint: swelling left leg, pain Is patient in pain?: Yes Allergies No Known Allergies Allergy (Verified 01/02/25 10:49) Medications ???Medication ???Instructions ???Recorded ???Confirmed ???Type paroxetine HCl 20 mg tablet 1 tablet PO DAILY 02/13/23 4 History valsartan 160 1 tablet PO DAILY 02/13/23 4 History mg-hydrochlorothia zide 12.5 mg tablet aspirin 81 mg tablet,delayed 81 mg PO QDAY 01/02/25 History release Have you fallen in the past year?: No PFSH Medical History (Updated 01/06/25 @ 08:20 by JORGE A Schmitt) DDD (degenerative disc disease), lumbar DVT (deep venous thrombosis) RSD lower limb HNP (herniated nucleus pulposus), lumbar Hypertension Hypertension Surgical History History of femoral hernia repair Family History Father CVA (cerebral vascular accident) Father Heart disease Other Bleeding disorder CAD (coronary artery disease) Hypertension Social History Smoking Status: Never smoker Smokeless tobacco user: chewing tobacco how long ago did patient quit smokin can every 4-5 days alcohol intake: never HPI HPI HPI: DELTA CHEEK, is a 49 M who presents to the office today with increased LLE swelling and pain. He has noticed increased intermittent particularly left lower extremity edema. He notices it more on days that he is more up and active typically but not always. It does tend to improve with elevation. Initially about 4 weeks ago when he felt that he first started noticing it getting worse he also had pain in his proximal thigh and was very worried it was a recurrent DVT, venous duplex at that time was negative for any left lower extremity DVT and also captured his iliac stents which appeared patent. He has also felt that his skin along his leg will sometimes appear more pink/red. He also gets this aching in his left calf and left thigh. He has a lot of pain/discomfort within his hip, knee, and ankle, not necessarily worse with activity and not necessarily positional. He does have a history of significant lumbar degenerative disc disease, no recent imaging in this regard however and he is not following with orthopedic spine or pain management services. His PCP did order at that point a hip/pelvic x-ray which revealed mild osteoarthritis. His PCP also ordered a lower extremity arterial study which was normal. ROS General General: Yes fatigue and weakness; No weight change, appetite, colon cancer or breast cancer HEENT HEENT: No difficulty swallowing, eye injury, eye surgery, swollen glands or hoarseness Endo Endocrine: No thyroid disease, diabetes mellitus, thyroid cancer, Hair loss, heat intolerance or cold intolerance Skin Skin: No rash or changing moles Musc Musculoskeletal: Yes back problems and arthritis; No rheumatoid arthritis, gout or joint pain Cardio Cardiovascular: Yes high blood pressure; No murmur, pacemaker, heart disease, atrial fibrillation, heart attack, heart stent, palpitations, shortness of breat with exertion or chest pain Psych Psychiatric: Yes anxiety; No depression or hearing voices Resp Respiratory: No shortness of breath, No sleep apnea, No cough, No COPD, No asthma, No emphysema and No wheezing Gastro Gastrointestinal: No abdominal pain, No nausea or vomiting, No diarrhea, No constipation, No blood in stool, No acid reflux, No hemorrhoids, No ulcers, No gallbladder problem and No black,tarry sto ols Daniel Hematologic: No blood thinners, No blood disorders, No bleeding, No anemia and No blood clots Neuro Neurologic: No system reviewed and no additional complaints, except as documented, No as per HPI, No abnormal gait, No abnormal hearing, No abnormal movements, No abnormal speech, No behavioral changes, Yes burning sensations, No confusion, No convulsions, No disequilibrium, No dizziness, No localized weakness, No frequent falls, No headache(s), No lack of coor (more content not included)... Normal [facility] Ankle Brachial Indexon 12-12 Ankle Brachial Index [facility] [address] [place] [address] Ankle Brachial Index 12/12/24 1028 MR#: [id number] Acct: [id number] Name: DELTA CHEEK Rep #: [id number] : 1975 49 From: Bryn Mccall MD Attending Dr: Dr. Rogelio Colvin MD Status: REG CLI Ordering Dr: Rogelio Colvin MD Date: 12/12/24 Location: [facility] Sex: M C Admitted: Reason For Study: PAOD / LLE TINGLING - CLAUDICATION Procedure A bilateral lower extremity continuous wave Doppler with analog waveform analysis and ankle brachial indexes. Left Segmental Pressures Left brachial= 146mmHg. Left posterior tibial artery = 171mmHg. Left dorsalis pedis artery = 152mmHg. Left digit = 159 mmHg. The left posterior tibial artery waveforms are triphasic. The left dorsalis pedis waveforms are triphasic. Right Segmental Pressures Right brachial= 140mmHg. Right posterior tibial artery = 177mmHg. Right dorsalis pedis artery = 169mmHg. Right digit = 184 mmHg. The right posterior tibial artery waveforms are triphasic. The right dorsalis pedis waveforms are triphasic. Indices The right ankle brachial index by the posterior tibial artery is 1.21. The right ankle brachial index by the dorsalis pedis is 1.16. The right digital-brachial index is 1.26. The left ankle brachial index by the posterior tibial artery is 1.17. The left ankle brachial index by the dorsalis pedis is 1.04. The left digital-brachial index is 1.09. VL/Ankle Brachial Index Interpretation Summary Right FREDRICK 1.21, normal. TBI and Doppler/PVR waveforms of the right ankle normal at rest. Left FREDRICK 1.17, normal. TBI and Doppler/PVR waveforms of the left ankle normal at rest. Ordering Physician: Rogelio Colvin Chi Referring Physician: ROGELIO COLVIN CHI, MD Performed By: [employer], RVT 12/15/24 1148 Date Bryn Mccall MD CC: Dr. Rogelio Colvin MD Date Dictated: 12/12/24 1028 Date Transcribed: 12/15/24 1148 Water Conservationist: Signed Normal [facility] HIP, UNI W/ Pelvis 2-3 Views on 11-24-2024 HIP, UNI W/ Pelvis 2-3 Views [facility] Imaging Services [address] [address] [id number] HIP, UNI W/ Pelvis 2-3 Views MR#: [id number] Acct: [id number] Name: DELTA CHEEK Jr. Rep #: [id number] : 1975 49 From: Bahman Don MD PCP: Dr. Rogelio Colvin MD Status: REG [facility] Study: HIP, UNI W/ Pelvis 2-3 Views Date of Exam: Exam# [id number] Ordering Dr: Rogelio Colvin MD [id number] STUDY: X-RAY - PELVIS AND LEFT HIP REASON FOR EXAM: Male, 49 years old. LEFT HIP PAIN TECHNIQUE: 3 views of the pelvis and left hip. COMPARISON: None. FINDINGS: There is a non-specific bowel gas pattern. There is vascular stenting of the abdominal aorta and iliac arteries. Normal bilateral iliac wings, sacroiliac joints and visualized sacrum. Normal bilateral superior and inferior pubic rami. Normal pubic symphysis. Normal bilateral ischial tuberosities. There is minimal degenerative arthrosis of the hip joints bilaterally with tiny osteoarthritic spurring. Intact visualized femoral head. Intact acetabulum. There is no demonstrated acute fracture. RAD/HIP, UNI W/ Pelvis 2-3 Views IMPRESSION: Minimal degenerative arthrosis of the hip joints bilaterally. No demonstrated acute fracture. Electronically Signed: Bahman Don MD at 10:06 EST Reading Location ID and State: [address] [place] [address] , Service support , CC: Dr. Rogelio Colvin MD Water Conservationist: Signed Normal [facility] Venous Duplex US, Unilateral on 11-24-2024 Venous Duplex US, Unilateral [facility] [address] [place] [address] Venous Duplex US, Unilateral 11/24/24 1331 MR#: [id number] Acct: [id number] Name: DELTA CHEEK Rep #: [id number] : 1975 49 From: Bryn Mccall MD Attending Dr: Dr. Bryn Mccall MD Status: REG C Ordering Dr: Bryn Mccall MD Date: 11/24/24 Location: [facility] Sex: M C Admitted: Reason For Study: Left leg pain RIGHT LEFT CFV is compressible, spontaneous, phasic, GSV is normal. competent and demonstrates normal CIV normal phasic venous flow, stent noted. augmentation. EIV has normal phasic venous flow. Procedure CFV is compressible, spontaneous, phasic, This is a venous duplex using B-mode, color competent, and demonstrates normal flow and spectral Doppler. augmentation. Exam performed in department. 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 Normal venous flow noted. PopV is partially compressible with intraluminal echoes consistent with Chronic DVT. Normal venous flow noted. T/P trunk is partially compressible with intraluminal echoes consistent with Chronic DVT. Normal venous flow noted by color doppler. PTV is compressible. LT PerV is compressible. VL/Venous Duplex US, Unilateral Interpretation Summary Chronic deep vein thrombosis noted in the left femoral vein, popliteal vein, tibioperoneal trunk vein. Left iliac vein stents patent with normal venous flow Ordering Physician: Bryn Mccall Referring Physician: Rogelio Colvin Chi Performed By: Court oRd RVT 11/24/24 173 Date Bryn Mccall MD CC: Dr. Byrn Mccall MD; Dr. Rogelio Colvin MD Date Dictated: 11/24/24 1331 Date Transcribed: 11/24/241738 Water Conservationist: Signed Normal [facility] 12 Lead EKGon 11-04-2024 12 Lead EKG [facility] Cardiovascular Services [address] [place] [address] 12 Lead EKG 11/04/24 0011 MR#: [id number] Acct: [id number] Name: DELTA CHEEK Jr. Rep #: [id number] : 1975 49 From: Zack Smiley MD Attending Dr: Status: DEP ER Ordering Dr: Isrrael Garrett DO Date: 11/04/24 Location: ED Sex: M C Admitted: Test Reason : DYSRHYTHMIA Blood Pressure : */* mmHG Vent. Rate : 103 BPM Atrial Rate : 103 BPM P-R Int : 130 ms QRS Dur : 72 ms QT Int : 316 ms P-R-T Axes : 18 18 13 degrees QTcB Int : 413 ms Sinus tachycardia Otherwise normal ECG Confirmed by SHERICE TRISTAN, ZACK ([id number]), movie editor SARAH GOLDMAN ([id number]) on 11/06/2024 2:24:34 PM Referred By: Confirmed By: ZACK SMILEY MD 11/06/24 1424 Date Zack Smiley MD CC: Dr. Rogelio Colvin MD; Dr. Isrrael Garrett DO Signed Normal [facility] Abdomen/Pelvis W IV Cont ONL Yon 11-04-2024 Abdomen/Pelvis W IV Cont ONLY [facility] Imaging Services [address] [address] [id number] Abdomen/Pelvis W IV Cont ONLY MR#: [id number] Acct: [id number] Name: DELTA CHEEK JrChristine Rep #: [id number] : 1975 M 49 From: Marcin Augustin MD PCP: Dr. Rogelio Colvin MD Status: REG ER Study: Abdomen/Pelvis W IV Cont ONLY Date of Exam: Exam# [id number] Ordering Dr: Isrrael Garrett DO [id number] EXAM: CT ABDOMEN AND PELVIS WITH INTRAVENOUS CONTRAST CLINICAL INDICATION: epigastric and RUQ pain TECHNIQUE: Helically acquired images were obtained of the abdomen and pelvis with intravenous contrast. This CT exam was performed using one or more of the following dose reduction techniques: automated exposure control, adjustment of the mA and/or kV according to patient size, and/or use of iterative reconstruction technique. CONTRAST: IV 100mL Isovue-370 RADIATION DOSE: CTDIvol = 21.73 mGy, DLP = 1363.88 mGy-cm COMPARISON: No relevant prior studies available. FINDINGS: LOWER THORAX: Unremarkable. Lung bases are clear. No cardiomegaly. No significant pericardial effusion. ABDOMEN: LIVER: Unremarkable. Homogeneous. No focal mass. GALLBLADDER AND BILE DUCTS: Unremarkable. No calcified gallstones. No gallbladder distention or wall edema. No intra- or extrahepatic biliary ductal dilation. PANCREAS: Unremarkable. No focal cystic or solid mass. SPLEEN: Unremarkable. Normal size without focal cystic or solid mass. ADRENALS: Unremarkable. No nodules. KIDNEYS AND URETERS: Unremarkable. Normal renal size and position. No hydronephrosis. STOMACH AND BOWEL: Multiple fluid-filled loops of nondilated small bowel, as well as a prominent amount of fluid in the proximal colon. No focal inflammatory change. PELVIS: APPENDIX: No evidence of acute appendicitis. BLADDER: Unremarkable. REPRODUCTIVE: Unremarkable as visualized. No mass. ABDOMEN and PELVIS: INTRAPERITONEAL SPACE: Unremarkable. No ascites or other fluid collection. No free air. BONES/JOINTS: Degenerative changes of the spine. No suspicious lytic or blastic abnormality. SOFT TISSUES: Unremarkable. No discrete abdominal or pelvic wall hernia. VASCULATURE: Bilateral iliac venous stents. Abdominal aorta is non-dilated. LYMPH NODES: Unremarkable. No enlarged lymph nodes. CT/Abdomen/Pelvis W IV Cont ONLY IMPRESSION: Multiple fluid-filled loops of nondilated small bowel, as well as a prominent amount of fluid in the proximal colon. Findings may indicate an infectious enteritis/diarrhea l illness. Electronically Signed: Marcin Augustin MD at 1:38 EST , CC: Dr. Rogelio Colvin MD; Dr. Isrrael Garrett DO Water Conservationist: Signed Normal [facility] Absolute neutrophil countOrd ered By: Isrrael Garrett on 11-04-2024 Neutrophils (Bld) [#/Vol] 17.2 10*3/uL High 2.0-7.7 [facility] Albumin to globulin ratioOrd ered By: Isrrael Garrett on 11-04-2024 Albumin/Globulin [Mass ratio] 1.1 {ratio} 0.9-2.4 [facility] Basophil percentageOrdered B y: Isrrael Garrett on 11-04-2024 Basophils/100 WBC (Bld) 0.3 % 0-1 [facility] Bilirubin, totalOrdered By: Isrrael Garrett on 11-04-2024 Bilirubin [Mass/Vol] 0.90 mg/dL 0.20-1.00 [facility] Comment on above: For patients on eltr ombopag therapy, use of Dimension [place] TBIL is not recommended. Blood urea nitrogen (BUN)/cr eatinine ratioOrdered By: Isrrael Garrett on 11-04-2024 Urea nitrogen/Creatinine [Mass ratio] 20.3 mg/mg High - [facility] CBC W/Diff, Automatedon 10-13 Absolute Lymph 0.53 X10 3/uL Low 0.83-4.51 [facility] Comment on above: Performed By: #### L 500.4050, L100.0100, L501.2450 #### [facility] [address] [place], [address] Absolute Neut 17.2 X10 3/uL High 2.0-7.7 [facility] Comment on above: Performed By: #### L 500.4050, L100.0100, L501.2450 #### [facility] [address] [place], [address] Basophils/100 WBC (Bld) 0.3 % Normal 0-1 [facility] Comment on above: Performed By: #### L 500.4050, L100.0100, L501.2450 #### [facility] [address] [place], [address] Eosinophils/100 WBC (Bld) 0.7 % Normal 0-5 [facility] Comment on above: Performed By: #### L 500.4050, L100.0100, L501.2450 #### [facility] [address] [place], [address] Erythrocyte distribution width (RBC) [Ratio] 13.2 % Normal 11.6-14.6 [facility] Comment on above: Performed By: #### L 500.4050, L100.0100, L501.2450 #### [facility] [address] [place], [address] Hematocrit (Bld) [Volume fraction] 46.4 % Normal 40-54 [facility] Comment on above: Performed By: #### L 500.4050, L100.0100, L501.2450 #### [facility] [address] [place], [address] Hemoglobin (Bld) [Mass/Vol] 15.1 g/dL Normal 13.0-16.5 [facility] Comment on above: Performed By: #### L 500.4050, L100.0100, L501.2450 #### [facility] [address] [place], [address] IG% 2.000 High 0.0-0.9 [facility] Comment on above: Result Comment: IG% - Immature Granulocytes (promyelocytes, myelocytes and metamyelocytes) > 1% indicates that a LEFT SHIFT is Present. Performed By: #### L 500.4050, L100.0100, L501.2450 #### [facility] [address] [place], [address] Lymphocytes/100 WBC (Bld) 2.8 % Low 19-41 [facility] Comment on above: Performed By: #### L 500.4050, L100.0100, L501.2450 #### [facility] [address] [place], [address] MCH (RBC) [Entitic mass] 28.8 pg Normal 27.0-32.0 [facility] Comment on above: Performed By: #### L 500.4050, L100.0100, L501.2450 #### [facility] [address] [place], [address] MCHC (RBC) [Mass/Vol] 32.5 g/dL Normal 32-36 [facility] Comment on above: Performed By: #### L 500.4050, L100.0100, L501.2450 #### [facility] [address] [place], [address] MCV (RBC) [Entitic vol] 88.5 fL Normal 80-94 [facility] Comment on above: Performed By: #### L 500.4050, L100.0100, L501.2450 #### [facility] [address] [place], [address] Monocytes/100 WBC (Bld) 4.2 % Normal 0-[address] [facility] Comment on above: Performed By: #### L 500.4050, L100.0100, L501.2450 #### [facility] [address] [place], [address] Neutrophils/100 WBC (Bld) 90.0 % High 47-70 [facility] Comment on above: Performed By: #### L 500.4050, L100.0100, L501.2450 #### [facility] [address] [place], [address] Nucleated RBC (Bld) [#/Vol] 0 10*3/uL Normal 0-5 [facility] Comment on above: Performed By: #### L 500.4050, L100.0100, L501.2450 #### [facility] [address] [place], [address] Platelet mean volume (Bld) [Entitic vol] 9.2 fL Normal 6.2-12.0 [facility] Comment on above: Performed By: #### L 500.4050, L100.0100, L501.2450 #### [facility] [address] [place], [address] Platelets (Bld) [#/Vol] 153 10*3/uL Normal 150-450 [facility] Comment on above: Performed By: #### L 500.4050, L100.0100, L501.2450 #### [facility] [address] [place], [address] RBC (Bld) [#/Vol] 5.24 10*6/uL Normal 4.6-6.2 [facility] Comment on above: Performed By: #### L 500.4050, L100.0100, L501.2450 #### [facility] [address] [place], [address] RDW SD 42.5 fl Normal 35.1-43.9 [facility] Comment on above: Performed By: #### L 500.4050, L100.0100, L501.2450 #### [facility] [address] [place], [address] WBC (Bld) [#/Vol] 19.1 10*3/uL High 4.4-11.0 [facility] Comment on above: Performed By: #### L 500.4050, L100.0100, L501.2450 #### [facility] [address] [place], [address] Carbon dioxide measurementOr dered By: Isrrael Garrett on 11-04-2024 CO2 [Moles/Vol] 27.0 mmol/L 21.0-32.0 [facility] Chloride measurementOrdered By: Isrrael Garrett on 11-04-2024 Chloride [Moles/Vol] 106 mmol/L 98-107 [facility] Comprehensive Metabolic Prof ilon 11-04-2024 Albumin [Mass/Vol] 3.9 g/dL Normal 3.2-5.0 [facility] Comment on above: Performed By: #### L 500.4050, L100.0100, L501.2450 #### [facility] [address] [place], [address] Albumin/Globulin [Mass ratio] 1.1 {ratio} Normal 0.9-2.4 [facility] Comment on above: Performed By: #### L 500.4050, L100.0100, L501.2450 #### [facility] [address] [place], [address] ALK P 76 U/L Normal 45-117 [facility] Comment on above: Performed By: #### L 500.4050, L100.0100, L501.2450 #### [facility] [address] [place], [address] ALT [Catalytic activity/Vol] 26 U/L Normal 16-61 [facility] Comment on above: Performed By: #### L 500.4050, L100.0100, L501.2450 #### [facility] [address] [place], [address] AST [Catalytic activity/Vol] 11 U/L Low 15-37 [facility] Comment on above: Performed By: #### L 500.4050, L100.0100, L501.2450 #### [facility] [address] [place], [address] Bilirubin [Mass/Vol] 0.90 mg/dL Normal 0.20-1.00 [facility] Comment on above: Result Comment: For patients on eltrombopag therapy, use of Dimension [place] TBIL is not recommended. Performed By: #### L 500.4050, L100.0100, L501.2450 #### [facility] [address] [place], [address] BUN/CRE 20.3 RATIO High 10-20 [facility] Comment on above: Performed By: #### L 500.4050, L100.0100, L501.2450 #### [facility] [address] [place], [address] CA,Total 8.9 mg/dL Normal 8.5-10.1 [facility] Comment on above: Performed By: #### L 500.4050, L100.0100, L501.2450 #### [facility] [address] [place], [address] Chloride [Moles/Vol] 106 mmol/L Normal 98-107 [facility] Comment on above: Performed By: #### L 500.4050, L100.0100, L501.2450 #### [facility] [address] [place], [address] CO2 [Moles/Vol] 27.0 mmol/L Normal 21.0-32.0 [facility] Comment on above: Performed By: #### L 500.4050, L100.0100, L501.2450 #### [facility] [address] [place], [address] Creatinine [Mass/Vol] 1.18 mg/dL Normal 0.70-1.30 [facility] Comment on above: Result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 Dr: JORGE A Schmitt Status: REG CLI Ordering Dr: Teena Jacques Date: 05/02/24 Location: CVS Sex: M C Admitted: Reason For Study: BLE Iliac Stents Inferior Vena Cava Proximal inferior vena cava measures 2.05 x 2.20 cm. in the cross-sectional axis. Proximal inferior vena cava measures 2.07 cm. in the longitudinal axis. Mid inferior vena cava measures 1.81 x 1.89 cm. in the cross-sectional axis. Mid inferior vena cava measures 1.90 cm. in the longitudinal axis. Distal inferior vena cava measures 1.77 x 1.65 cm. in the cross-sectional axis. Distal inferior vena cava measures 1.65 cm. in the longitudinal axis. The inferior vena cava has spontaneous, phasic flow throughout. Left Common Iliac Vein Left common iliac vein measures 1.27 x 1.34 cm. in the cross-sectional axis. Left common iliac vein measures 1.32 cm. in the longitudinal axis. The left common iliac vein has spontaneous, phasic flow throughout. Unable to visualize stents. Right Common Iliac Vein Right common iliac vein measures 1.18 x 1.20 cm. in the cross-sectional axis. Right common iliac vein measures 1.38 cm. in the longitudinal axis. The right common iliac vein has spontaneous, phasic flow throughout. Unable to visualize stent. Procedure Aorta IVC Iliac vasculature or bypass grafts 45510. The exam was diagnostic. Exam performed in department. 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 Ordering Physician: Teena Jacques Referring Physician: Rogelio Colvin Chi Performed By: [employer], Teofilo 05/12/24808 Date Bryn Mccall MD CC: JORGE A Schmitt; Dr. Rogelio Colvin MD Date Dictated: 05/02/24907 Date Transcribed: 05/12/24808 Water Conservationist: Signed Normal [facility] CBC W/Diff, Automatedon 06-2 Absolute Lymph 1.25 X10 3/uL Normal 0.83-4.51 [facility] Comment on above: Performed By: #### L 9100.0100 #### [facility] [address] [place], [address] Absolute Neut 3.1 X10 3/uL Normal 2.0-7.7 [facility] Comment on above: Performed By: #### L 9100.0100 #### [facility] [address] [place], [address] Basophils/100 WBC (Bld) 1.0 % Normal 0-1 [facility] Comment on above: Performed By: #### L 9100.0100 #### [facility] [address] [place], [address] Eosinophils/100 WBC (Bld) 3.4 % Normal 0-5 [facility] Comment on above: Performed By: #### L 9099.0100 #### [facility] [address] [place], [address] Erythrocyte distribution width (RBC) [Ratio] 12.9 % Normal 11.6-14.6 [facility] Comment on above: Performed By: #### L 9099.0100 #### [facility] [address] [place], [address] Hematocrit (Bld) [Volume fraction] 42.0 % Normal 40-54 [facility] Comment on above: Performed By: #### L 9099.0100 #### [facility] [address] [place], [address] Hemoglobin (Bld) [Mass/Vol] 13.9 g/dL Normal 13.0-16.5 [facility] Comment on above: Performed By: #### L 9099.0100 #### [facility] [address] [place], [address] IG% 0.200 Normal 0.0-0.9 [facility] Comment on above: Result Comment: IG% - Immature Granulocytes (promyelocytes, myelocytes and metamyelocytes) > 1% indicates that a LEFT SHIFT is Present. Performed By: #### L 9100.0100 #### [facility] [address] [place], [address] Lymphocytes/100 WBC (Bld) 25.1 % Normal 19-41 [facility] Comment on above: Performed By: #### L 00.0100 #### [facility] [address] [place], [address] MCH (RBC) [Entitic mass] 29.0 pg Normal 27.0-32.0 [facility] Comment on above: Performed By: #### L 9099.0100 #### [facility] [address] [place], [address] MCHC (RBC) [Mass/Vol] 33.1 g/dL Normal 32-36 [facility] Comment on above: Performed By: #### L 9099.0100 #### [facility] [address] [place], [address] MCV (RBC) [Entitic vol] 87.7 fL Normal 80-94 [facility] Comment on above: Performed By: #### L 9099.0100 #### [facility] [address] [place], [address] Monocytes/100 WBC (Bld) 7.4 % Normal 0-[address] [facility] Comment on above: Performed By: #### L 9099.0100 #### [facility] [address] [place], [address] Neutrophils/100 WBC (Bld) 62.9 % Normal 47-70 [facility] Comment on above: Performed By: #### L 00.0100 #### [facility] [address] [place], [address] Nucleated RBC (Bld) [#/Vol] 0 10*3/uL Normal 0-5 [facility] Comment on above: Performed By: #### L 9099.0100 #### [facility] [address] [place], [address] Platelet mean volume (Bld) [Entitic vol] 9.5 fL Normal 6.2-12.0 [facility] Comment on above: Performed By: #### L 9100.0100 #### [facility] [address] [place], [address] Platelets (Bld) [#/Vol] 249 10*3/uL Normal 150-450 [facility] Comment on above: Performed By: #### L 9099.0100 #### [facility] [address] [place], [address] RBC (Bld) [#/Vol] 4.79 10*6/uL Normal 4.6-6.2 [facility] Comment on above: Performed By: #### L 9099.0100 #### [facility] [address] [place], [address] RDW SD 41.1 fl Normal 35.1-43.9 [facility] Comment on above: Performed By: #### L 9099.0100 #### [facility] [address] [place], [address] WBC (Bld) [#/Vol] 5.0 10*3/uL Normal 4.4-11.0 [facility] Comment on above: Performed By: #### L 00.0100 #### [facility] [address] [place], [address] Comprehensive Metabolic Prof caon 05-02-2024 Albumin [Mass/Vol] 3.7 g/dL Normal 3.2-5.0 [facility] Comment on above: Performed By: #### L 00.0100 #### [facility] [address] [place], [address] Albumin/Globulin [Mass ratio] 1.1 {ratio} Normal 0.9-2.4 [facility] Comment on above: Performed By: #### L 9099.0100 #### [facility] [address] [place], [address] ALK P 83 U/L Normal 45-117 [facility] Comment on above: Performed By: #### L 9100.0100 #### [facility] [address] [place], [address] ALT [Catalytic activity/Vol] 24 U/L Normal 16-61 [facility] Comment on above: Performed By: #### L 9100.0100 #### [facility] [address] [place], [address] AST [Catalytic activity/Vol] 15 U/L Normal 15-37 [facility] Comment on above: Result Comment: Mode rate Hemolysis, Result may be falsely increased. Performed By: #### L 9100.0100 #### [facility] [address] [place], [address] Bilirubin [Mass/Vol] 0.40 mg/dL Normal 0.20-1.00 [facility] Comment on above: Result Comment: For patients on eltrombopag therapy, use of Dimension [place] TBIL is not recommended. Performed By: #### L 9100.0100 #### [facility] [address] [place], [address] BUN/CRE 26.5 RATIO High 10-20 [facility] Comment on above: Performed By: #### L 9100.0100 #### [facility] [address] [place], [address] CA,Total 8.7 mg/dL Normal 8.5-10.1 [facility] Comment on above: Performed By: #### L 9100.0100 #### [facility] [address] [place], [address] Chloride [Moles/Vol] 110 mmol/L High 98-107 [facility] Comment on above: Performed By: #### L 9100.0100 #### [facility] [address] [place], [address] CO2 [Moles/Vol] 23.0 mmol/L Normal 21.0-32.0 [facility] Comment on above: Performed By: #### L 9100.0100 #### [facility] [address] [place], [address] Creatinine [Mass/Vol] 0.91 mg/dL Normal 0.70-1.30 [facility] Comment on above: Result Comment: The validity of the calculated GFR GFRAA in patients over 70 years has not been determined. Clinical correlation is essential. Performed By: #### L 00.0100 #### [facility] [address] [place], [address] EST GFR - AA 114 mL/min Normal >60 [facility] Comment on above: Result Comment: Afri can Citizen Of [place] GFR Calc Performed By: #### L 9100.0100 #### [facility] [address] [place], [address] GAP 7 Normal 5-15 [facility] Comment on above: Performed By: #### L 9100.0100 #### [facility] [address] [place], [address] GFR/1.73 sq M.predicted among non-blacks MDRD (S/P/Bld) [Vol rate/Area] 94 mL/min/{1.73_m2} Normal >60 [facility] Comment on above: Result Comment: Non- GFR Calc Performed By: #### L 9100.0100 #### [facility] [address] [place], [address] Globulin (S) [Mass/Vol] 3.4 g/dL Normal 2.2-4.[address] [facility] Comment on above: Performed By: #### L 9100.0100 #### [facility] [address] [place], [address] Glucose [Mass/Vol] 108 mg/dL High 74-106 [facility] Comment on above: Result Comment: Fast ing Glucose result from 100 to 125 mg/dL suggests IMPAIRED HOMEOSTASIS per A.D.A. criteria. Performed By: #### L 9100.0100 #### [facility] [address] [place], [address] Potassium [Moles/Vol] 4.1 mmol/L Normal 3.5-5.1 [facility] Comment on above: Result Comment: Mode rate Hemolysis, Result may be falsely increased. Performed By: #### L 9100.0100 #### [facility] [address] [place], [address] Sodium [Moles/Vol] 140 mmol/L Normal 136-145 [facility] Comment on above: Performed By: #### L 9100.0100 #### [facility] [address] [place], [address] T PROT 7.1 g/dL Normal 6.4-8.2 [facility] Comment on above: Performed By: #### L 9100.0100 #### [facility] [address] [place], [address] Urea nitrogen [Mass/Vol] 24 mg/dL High 7-18 [facility] Comment on above: Performed By: #### L 9100.0100 #### [facility] [address] [place], [address] Lipid Profileon 05-02-2024 Cholesterol [Mass/Vol] 196 mg/dL Normal 200 [facility] Comment on above: Result Comment: <200 mg/dL Desirable 200-240 mg/dL Borderline >240 mg/dL High Risk Performed By: #### L 9100.0100 #### [facility] [address] [place], [address] Cholesterol in HDL [Mass/Vol] 28 mg/dL Low [facility] Comment on above: Result Comment: The drugs N-Acetylcysteine and Metamizole may falsely depress this assay. Reference Range HDL <40 mg/dL Low HDL Cholesterol HDL >or= 60 mg/dL High HDL Cholesterol Performed By: #### L 9100.0100 #### [facility] [address] [place], [address] LDL TNP Normal 0-130 [facility] Comment on above: Performed By: #### L 9100.0100 #### [facility] [address] [place], [address] Triglyceride [Mass/Vol] 511 mg/dL High [facility] Comment on above: Result Comment: The drugs N-Acetylcysteine and Metamizole may falsely depress this assay. TRIGLYCERIDE IS GREATER THAN 400 mg/dL. LDL RESULT IS INVALID AND WILL NOT BE REPORTED. Serum Triglycerides Reference Interval Normal <150 mg/dL Borderline high 150 - 199 mg/dL High 200 - 499 mg/dL Very High > or = 500 mg/dL Performed By: #### L 9100.0100 #### [facility] [address] [place], [address] VLDL TNP Normal 5-40 [facility] Comment on above: Performed By: #### L 9100.0100 #### [facility] [address] [place], [address] Thyroid Stim Hormone (TSH)on 05-02-2024 TSH 1.83 uIU/mL Normal 0.358-3.74 [facility] Comment on above: Performed By: #### L 9100.0100 #### [facility] [address] [place], [address] Venous Duplex US - [place] [facility] 05-02-2024 Venous Duplex US - [place] Extrem [facility] [address] [place] [address] Venous Duplex US - [place] Extrem 05/02/24927 MR#: [id number] Acct: [id number] Name: DELTA CHEEK Jr. Rep #: [id number] : 1975 48 From: Bryn Mccall MD Attending Dr: JORGE A Schmitt Status: REG CLI Ordering Dr: Teena Jacques Date: 05/02/24 Location: CVS Sex: M C Admitted: Reason For Study: HX LLE DVT RIGHT LEFT GSV is normal. GSV is normal. CFV is compressible, spontaneous, phasic, CFV is compressible, spontaneous, phasic, competent and demonstrates normal competent, and demonstrates normal augmentation. augmentation. FV is compressible, spontaneous, phasic, FV is partially compressible throughout with competent and demonstrates normal intraluminal echoes consistent with Chronic augmentation. DVT. Normal venous flow noted. POP V is compressible, spontaneous, phasic, PopV is partially compressible with competent and demonstrates normal intraluminal echoes consistent with Chronic augmentation. DVT. Normal venous flow noted. T/P Trunk is compressible. T/P trunk is partially compressible with PTV is compressible. intraluminal echoes consistent with Chronic RT PerV is compressible. DVT. Procedure PTV is compressible. This is a venous duplex using B-mode, color LT PerV is partially compressible. flow and spectral Doppler. Exam performed in department. The exam was diagnostic. VL/Venous Duplex US - [place] Extrem Interpretation Summary Chronic deep vein thrombosis noted in the left femoral vein, popliteal vein, tibioperoneal trunk vein. Deep veins of the right lower extremity are patent and compressible segmentally. There is no evidence of right lower extremity deep vein thrombosis. The bilateral great saphenous veins appear patent and compressible segmentally. Ordering Physician: Teena Jacques Referring Physician: Rogelio Colvin Chi Performed By: [employer] RVT 05/12/24811 Date Bryn Mccall MD CC: JORGE A Schmitt; Dr. Rogelio Colvin MD Date Dictated: 05/02/24927 Date Transcribed: 05/12/24811 Water Conservationist: Signed Normal [facility] Emergency Department Summary on 04-29-2024 Emergency Department Summary [facility] Medical Records Department [address] [place] [address] Emergency Department Summary 04/29/24 MR#: [id number] Acct: [id number] Name: DELTA CHEEK Jr. Rep #: [id number] : 1975 48 From: Dimas Gill MD PCP: Dr. Rogelio Colvin MD Status:REG ER Location: ED HPI History of Present Illness Chief Complaint: Laceration Informant: patient and spouse/S.O. Narrative Narrative: Patient presents shortly after an accidental injury to the left baer/lower leg while using a chainsaw. He states he immediately doused it in alcohol to cleanse it and put a dressing on it was having trouble stopping the bleeding which is why he presents mainly. He is on clopidogrel because of a history of having had vascular surgery on a vein. He is able to walk on it states it stewart but does not have any other major pain or injuries. Tetanus Immunization: <5 years [facility] Medical History DDD (degenerative disc disease), lumbar DVT (deep venous thrombosis) RSD lower limb HNP (herniated nucleus pulposus), lumbar Hypertension Hypertension Home Medications ???Medication ???Instructions ???Recorded ???Last Taken ???Type paroxetine HCl 20 mg tablet 1 tablet PO DAILY 02/13/23 Unknown History valsartan 160 1 tablet PO DAILY 02/13/23 Unknown History mg-hydrochlorothia zide 12.5 mg tablet aspirin 325 mg tablet 325 mg PO DAILY 05/02/23 Unknown History clopidogrel 75 mg tablet (Plavix) 75 mg PO DAILY #90 tabs 10/16/23 Unknown Rx Allergy/AdvReac Type Severity Reaction Status Date / Time No Known Allergies Allergy Verified 04/29/24 17:03 Family History Father CVA (cerebral vascular accident) Father Heart disease Surgical History History of femoral hernia repair Social History Smoking Status: Never smoker Smokeless tobacco user: chewing tobacco how long ago did patient quit smokin can every 4-5 days alcohol intake: never ROS ROS ED Constitutional Constitutional ED: Denies chills or fever(s) Musculoskeletal Musculoskeletal: Reports extremity pain; Denies neck pain Integumentary Reports wounds; Denies Abrasions or rash Neurologic Neurologic: Denies paresthesias or weakness EXAM Physical Exam Const Vital Signs: 04/29/24 17:03 Temperature 96.8 F L Temperature Source Temporal Pulse Rate 83 Respiratory Rate 18 Blood Pressure 135/77 H Blood Pressure Mean 96 Pulse Ox 96 Positive well nourished and well developed General Appearance ED: well developed and NAD Neck full ROM and supple Back/Spine normal ROM and normal to inspection Extremity full ROM Extremity Narrative: Laceration to the mid left lower leg, full range of motion all compartment soft and nondistended, neurovascularly intact distally. Neuro oriented x3, no focal motor deficits and no sensory deficits noted Sensorium / Orientation: alert Psych mental status grossly normal and thought process normal Skin Skin Narrative: 6 cm laceration anterior mid left lower leg, linear for the most part and clean, bone is not visible. Tibialis anterior fully functional and not visible. No deformities. No tissue loss. No foreign material seen. Rashes: no rashes MDM MDM MDM Narrative Medical decision making narrative: Wound was irrigated profusely, anesthetized with lidocaine with epinephrine, there was excellent hemostasis, repaired with skin edges everted to take off the tension, given appropriate care instructions, cleaned and dressed with bacitracin and discharged stable condition. Tetanus status was up-to-date. Procedures Lacerations L lower leg: Length: 6 cm Depth: Sub Q Shape: Linear Prep: Sterile Conditions and Betadine Laceration repair: Irrigated, Lidocaine with epi (6cc, 1%) and Local Irrigated (ml): 100 Number of Sutures/Quinault: 5 Suture Information: Ethilon, Horizontal, Mattress and 4-0 Discharge Plan Triage Chief Complaint: Laceration ED Provider: Dimas Gill Dx/Rx/DC Orders Clinical Impression: Laceration of left lower leg without complication Instructions: ED Laceration Extremity Prescriptions: No Action paroxetine HCl 20 mg tablet 1 tablet PO DAILY valsartan-hydrochl orothiazide 160-12.5 mg tablet 1 tablet PO DAILY aspirin 325 mg tablet 325 mg PO DAILY clopidogrel [Plavix] 75 mg tablet 75 mg PO DAILY Qty: 90 3RF Primary Care Provider: Rogelio Colvin Chi Referrals: Rogelio Colvin Chi, MD [Primary Care Provider] - 10-14 Days suture removal Print Language: Arabic Disposition Disposition: Home, Self Care What to do if you have Problems Fo (more content not included)... Normal [facility] Tibia Fibula 2 Viewson 04-29 Tibia Fibula 2 Views [facility] Imaging Services [address] [place] [address] Tibia Fibula 2 Views MR#: [id number] Acct: [id number] Name: DELTA CHEEK Jr. Rep #: [id number] : 1975 M 48 From: Celestino Grant DO PCP: Dr. Rogelio Colvin MD Status: REG ER Study: Tibia Fibula 2 Views Date of Exam: 04/29/24 Exam# [id number] Ordering Dr: Dimas Gill MD [id number] INDICATION: chainsaw vs. leg EXAMINATION/TECHNI QUE: X-RAY - LEFT XR Tibia/Fibula 4 VIEWS COMPARISON: FINDINGS: SOFT TISSUES: Soft tissue injury anteriorly at the mid calf. No radiopaque foreign body. BONES/JOINTS: No acute fracture or subluxation.. Normal alignment. Preservation of the joint space.. No sclerotic or destructive changes observed. RAD/Tibia Fibula 2 Views IMPRESSION: Soft tissue injury anteriorly at the mid calf. Electronically Signed: Celestino Grant DO at 18:30 EDT , CC: Dr. Dimas Gill MD; Dr. Rogelio Colvin MD Water Conservationist: Signed Normal [facility] MR/Alice 04-17-2024 MR/BMS.BVS [facility] Vascular Surgery [address] [place] [address] OFFICE VISIT Date of Service: 04/17/24 MR#: [id number] Acct: [id number] Name: DELTA CHEEK Jr. Rep #: [id number] : 1975 Provider: JORGE A Schmitt Age/Sex: 48/M [place] [facility] [place] Status: Signed Intake Vital Signs 05/20/23 18:02 10/18/23 10:40 04/17/24 09:50 Height 6 ft 2 in 6 ft 2 in Weight: 248 lb BP 131/81 H Blood Pressure Location Lt brachial Position Sitting Respiration 14 Pulse 81 Pulse Source Monitor Temp 98.2 F Temp Source Temporal Pulse Oximetry (%) 98 Oxygen Delivery Method room air Intake Visit Reasons: 6 M FU Is patient in pain?: Yes Allergies No Known Allergies Allergy (Verified 04/17/24 09:51) Medications ???Medication ???Instructions ???Recorded ???Confirmed ???Type paroxetine HCl 20 mg tablet 1 tablet PO DAILY 02/13/23 04/17/24 History valsartan 160 1 tablet PO DAILY 02/13/23 04/17/24 History mg-hydrochlorothia zide 12.5 mg tablet aspirin 325 mg tablet 325 mg PO DAILY 05/02/23 04/17/24 History clopidogrel 75 mg tablet (Plavix) 75 mg PO DAILY #90 tabs 10/16/23 04/17/24 Rx PFSH Medical History DDD (degenerative disc disease), lumbar DVT (deep venous thrombosis) RSD lower limb HNP (herniated nucleus pulposus), lumbar Hypertension Hypertension Surgical History History of femoral hernia repair Family History Father CVA (cerebral vascular accident) Father Heart disease Social History Smoking Status: Never smoker Smokeless tobacco user: chewing tobacco how long ago did patient quit smokin can every 4-5 days alcohol intake: never HPI HPI HPI: DELTA CHEEK, is a 48 M who presents to the office today for follow-up regarding 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 Initially seen in the office on 01/04/23 for provoked extensive LLE DVT for which he was being treated with Xarelto. Performed venogram with thrombectomy and bilateral iliac vein stenting on 01/10/23 after which he was restarted on Xarelto + ASA. In March, patient developed recurrent LLE pain and swelling, venous duplex on 03/21/23 revealed patent iliac vein stents but recurrent L fem/pop/infrapop DVT. He was switched from Xarelto to lovenox and his symptoms improved. He had repeat venogram which was negative for any recurrent compression. This recurrence was attributed to Xarelto failure so plan was to complete Lovenox x 6 months. After 6 months of lovenox therapy he was transitioned to DAPT with ASA + Plavix for 6 additional months given presents of iliac vein stents. He has been doing well since his last OV. He is back to all of his regular activities. He has not had any recurrence of lower extremity persistent/signifi cant edema, pain, erythema, warmth. He has some trace edema at the end of the day, this resolves with elevation. He is not wearing compression. He is overdue for his repeat venous studies, these have not been scheduled. ROS General General: No weight change, appetite, fatigue, colon cancer, breast cancer or weakness HEENT HEENT: No difficulty swallowing, eye injury, eye surgery, swollen glands or hoarseness Endo Endocrine: No thyroid disease, diabetes mellitus, thyroid cancer, Hair loss, heat intolerance or cold intolerance Skin Skin: No rash or changing moles Musc Musculoskeletal: Yes back problems, arthritis and joint pain; No rheumatoid arthritis or gout Cardio Cardiovascular: Yes high blood pressure and palpitations; No murmur, pacemaker, heart disease, atrial fibrillation, heart attack, heart stent, shortness of breat with exertion or chest pain Psych Psychiatric: Yes anxiety; No depression or hearing voices Resp Respiratory: No shortness of breath, No sleep apnea, No cough, No COPD, No asthma, No emphysema and No wheezing Gastro Gastrointestinal: No abdominal pain, No nausea or vomiting, No diarrhea, No constipation, No blood in stool, No acid reflux, No hemorrhoids, No ulcers, No gallbladder problem and No black,tarry stools Daniel Hematologic: Yes blood thinners, No blood disorders, No bleeding, No anemia and No blood clots Neuro Neurologic: No system reviewed and no additional complaints, except as documented, No as per HPI, No abnormal gait, No abnormal hearing, No abnormal movements, No abnormal speech, No behavioral changes, No burning sensations, No confusion, No convulsions, No disequilibrium, No dizziness, No localized weakness, No frequent falls, No headache(s), No lack of coordination, No loss of vision, No memory loss, No (more content not included)... Normal [facility] Basophil percentageOrdered B y: Teena Jacques on 10-16-2023 Chloride [Moles/Vol] 106 mmol/L 98-107 [facility] Glucose [Mass/Vol] 104 mg/dL 74-106 [facility] Comment on above: Fasting Glucose resu lt from 100 to 125 mg/dL suggests IMPAIRED HOMEOSTASIS per A.D.A. criteria. Potassium [Moles/Vol] 4.0 mmol/L 3.5-5.1 [facility] Comment on above: Moderate Hemolysis, Result may be falsely increased. Sodium [Moles/Vol] 138 mmol/L 136-145 [facility] Blood hemoglobin measurement (mass/volume)Ordered By: Teena Jacques on 10-16-2023 Hemoglobin (Bld) [Mass/Vol] 15.0 g/dL 13.0-16.5 [facility] Laboratory - Chemistry and C hemistry - challengeOrdered By: Teena Jacques on 10-16-2023 CO2 [Moles/Vol] 30.0 mmol/L 21.0-32.0 [facility] Urea nitrogen/Creatinine [Mass ratio] 16.7 mg/mg 10-20 [facility] No Panel InformationOrdered By: Teena Jacques on 10-16-2023 Estimated GFR (MDRD) Amer 93 mL/min >60 [facility] Comment on above: GFR Calc Estimated GFR (MDRD) Non-Af Amer 77 mL/min >60 [facility] Comment on above: Non- GFR Calc Serum or plasma calcium rosangela urement (mass/volume)Ordered By: Teena Jacques on 10-16-2023 Calcium [Mass/Vol] 9.1 mg/dL 8.5-10.1 [facility] Serum or plasma creatinine m easurement (mass/volume)Ordered By: Teena Jacques on 10-16-2023 Creatinine [Mass/Vol] 1.08 mg/dL 0.70-1.30 [facility] Comment on above: The validity of the calculated GFR & GFRAA in patients over 70 years has not been determined. Clinical correlation is essential. Serum or plasma urea nitroge n measurement (mass/volume)Ordered By: Teena Jacques on 10-16-2023 Urea nitrogen [Mass/Vol] 18 mg/dL 7-18 [facility] Thin prep Papanicolaou smear with manual screeningOrdered By: Teena Jacques on 10-16-2023 Thin prep Papanicolaou smear with manual screening 2 5-15 [facility] Absolute lymphocyte countOrd ered By: Dr. Colvin on 05-02-2023 Lymphocytes Auto (Unsp spec) [#/Vol] 1.29 10*3/uL 0.83-4.51 [facility] Basophil percentageOrdered B y: Dr. Colvin on 05-02-2023 Basophils/100 WBC (Bld) 1.3 % 0-[address] [facility] Bilirubin [Mass/Vol] 0.40 mg/dL 0.20-1.00 [facility] Comment on above: For patients on eltr ombopag therapy, use of Dimension [place] TBIL is not recommended. Chloride [Moles/Vol] 106 mmol/L 98-107 [facility] Eosinophils/100 WBC (Bld) 1.8 % 0-5 [facility] Glucose [Mass/Vol] 90 mg/dL 74-106 [facility] Neutrophils (Bld) [#/Vol] 3.5 10*3/uL 2.0-7.7 [facility] Neutrophils/100 WBC (Bld) 63.1 % 47-70 [facility] Potassium [Moles/Vol] 3.9 mmol/L 3.5-5.1 [facility] Protein [Mass/Vol] 7.2 g/dL 6.4-8.2 [facility] Sodium [Moles/Vol] 138 mmol/L 136-145 [facility] WBC (Bld) [#/Vol] 5.5 10*3/uL 4.4-11.0 [facility] Blood erythrocytes count (nu mber/volume)Ordered By: Dr. Colvin on 05-02-2023 RBC (Bld) [#/Vol] 5.20 10*6/uL 4.6-6.2 [facility] Blood hemoglobin measurement (mass/volume)Ordered By: Dr. Colvin on 05-02-2023 Hemoglobin (Bld) [Mass/Vol] 15.3 g/dL 13.0-16.5 [facility] Blood lymphocytes/100 leukoc ytesOrdered By: Dr. Colvin on 05-02-2023 Lymphocytes/100 WBC (Bld) 23.5 % 19-41 [facility] Blood monocytes/100 leukocyt esOrdered By: Dr. oClvin on 05-02-2023 Monocytes/100 WBC (Bld) 9.9 % 0-10 [facility] Blood platelet mean volumeOr dered By: Dr. Colvin on 05-02-2023 Platelet mean volume (Bld) [Entitic vol] 9.0 fL 6.2-12.0 [facility] Determination of erythrocyte mean corpuscular volume (MCV)Ordered By: Dr. Colvin on 05-02-2023 MCV (RBC) [Entitic vol] 89.0 fL 80-94 [facility] Hematocrit Auto (Bld) [Volum e fraction]Ordered By: Dr. Colvin on 05-02-2023 Hematocrit (Bld) [Volume fraction] 46.3 % 40-54 [facility] Laboratory - Chemistry and C hemistry - challengeOrdered By: Dr. Colvin on 05-02-2023 ALP [Catalytic activity/Vol] 70 U/L 45-117 [facility] ALT [Catalytic activity/Vol] 38 U/L 16-61 [facility] CO2 [Moles/Vol] 27.0 mmol/L 21.0-32.0 [facility] Globulin (S) [Mass/Vol] 3.4 g/dL 2.2-4.2 [facility] Urea nitrogen/Creatinine [Mass ratio] 15.5 mg/mg 10-20 [facility] - Hematology and Cell countsOrdered By: Dr. Colvin on 05-02-2023 Erythrocyte distribution width (RBC) [Entitic vol] 39.1 fL 35.1-43.9 [facility] Erythrocyte distribution width (RBC) [Ratio] 12.0 % 11.6-14.6 [facility] Immature granulocytes/100 WBC (Bld) 0.400 % 0.0-0.9 [facility] Comment on above: IG% - Immature Granu locytes (promyelocytes, myelocytes and metamyelocytes) > 1% indicates that a LEFT SHIFT is Present. MCH (RBC) [Entitic mass] 29.4 pg 27.0-32.0 [facility] Nucleated RBC/100 WBC (Bld) [Ratio] 0 % 0-5 [facility] MCHC Auto (RBC) [Mass/Vol]Or dered By: Dr. Colvin on 05-02-2023 MCHC (RBC) [Mass/Vol] 33.0 g/dL 32-36 [facility] No Panel InformationOrdered By: Dr. Colvin on 05-02-2023 Estimated GFR (MDRD) Amer 98 mL/min >60 [facility] Comment on above: GFR Calc Estimated GFR (MDRD) Non-Af Amer 81 mL/min >60 [facility] Comment on above: Non- GFR Calc Thyroid Stimulating Hormone (TSH) 1.58 uIU/mL 0.358-3.74 [facility] Platelets bldOrdered By: Dr. Colvin on 05-02-2023 Platelets (Bld) [#/Vol] 259 10*3/uL 150-450 [facility] Serum or plasma albumin rosangela urement (mass/volume)Ordered By: Dr. Colvin on 05-02-2023 Albumin [Mass/Vol] 3.8 g/dL 3.2-5.0 [facility] Serum or plasma albumin/glob ulin mass ratioOrdered By: Dr. Colvin on 05-02-2023 Albumin/Globulin [Mass ratio] 1.1 {ratio} 0.9-2.4 [facility] Serum or plasma calcium rosangela urement (mass/volume)Ordered By: Dr. Colvin on 05-02-2023 Calcium [Mass/Vol] 8.9 mg/dL 8.5-10.1 [facility] Serum or plasma creatinine m easurement (mass/volume)Ordered By: Dr. Colvin on 05-02-2023 Creatinine [Mass/Vol] 1.03 mg/dL 0.70-1.30 [facility] Comment on above: The validity of the calculated GFR & GFRAA in patients over 70 years has not been determined. Clinical correlation is essential. Serum or plasma urea nitroge n measurement (mass/volume)Ordered By: Dr. Colvin on 05-02-2023 Urea nitrogen [Mass/Vol] 16 mg/dL 7-18 [facility] Thin prep Papanicolaou smear with manual screeningOrdered By: Dr. Colvin on 05-02-2023 Thin prep Papanicolaou smear with manual screening 17 U/L 15-37 [facility] Thin prep Papanicolaou smear with manual screening 5 5-15 [facility] Basophil percentageOrdered B y: Dr. Mccall on 04-17-2023 Chloride [Moles/Vol] 108 mmol/L 98-107 [facility] Glucose [Mass/Vol] 101 mg/dL 74-106 [facility] Comment on above: Fasting Glucose resu lt from 100 to 125 mg/dL suggests IMPAIRED HOMEOSTASIS per A.D.A. criteria. Potassium [Moles/Vol] 4.0 mmol/L 3.5-5.1 [facility] Sodium [Moles/Vol] 139 mmol/L 136-145 [facility] WBC (Bld) [#/Vol] 4.1 10*3/uL 4.4-11.0 [facility] Blood erythrocytes count (nu mber/volume)Ordered By: Dr. Mccall on 04-17-2023 RBC (Bld) [#/Vol] 4.83 10*6/uL 4.6-6.2 [facility] Blood hemoglobin measurement (mass/volume)Ordered By: Dr. Mccall on 04-17-2023 Hemoglobin (Bld) [Mass/Vol] 14.4 g/dL 13.0-16.5 [facility] Blood platelet mean volumeOr dered By: Dr. Mccall on 04-17-2023 Platelet mean volume (Bld) [Entitic vol] 9.1 fL 6.2-12.0 [facility] Determination of erythrocyte mean corpuscular volume (MCV)Ordered By: Dr. Mccall on 04-17-2023 MCV (RBC) [Entitic vol] 89.9 fL 80-94 [facility] Hematocrit Auto (Bld) [Volum e fraction]Ordered By: Dr. Mccall on 04-17-2023 Hematocrit (Bld) [Volume fraction] 43.4 % 40-54 [facility] Laboratory - Chemistry and C hemistry - challengeOrdered By: Dr. Mccall on 04-17-2023 CO2 [Moles/Vol] 28.0 mmol/L 21.0-32.0 [facility] Urea nitrogen/Creatinine [Mass ratio] 17.3 mg/mg 10-20 [facility] Laboratory - Hematology and Cell countsOrdered By: Dr. Mccall on 04-17-2023 Erythrocyte distribution width (RBC) [Entitic vol] 40.0 fL 35.1-43.9 [facility] Erythrocyte distribution width (RBC) [Ratio] 12.3 % 11.6-14.6 [facility] MCH (RBC) [Entitic mass] 29.8 pg 27.0-32.0 [facility] MCHC Auto (RBC) [Mass/Vol]Or dered By: Dr. Mccall on 04-17-2023 MCHC (RBC) [Mass/Vol] 33.2 g/dL 32-36 [facility] No Panel InformationOrdered By: Dr. Mccall on 04-17-2023 Estimated Creatinine Clearance Calc 106.01 ml/min [facility] Estimated GFR (MDRD) Amer 104 mL/min >60 [facility] Comment on above: GFR Calc Estimated GFR (MDRD) Non-Af Amer 86 mL/min >60 [facility] Comment on above: Non- GFR Calc Platelets bldOrdered By: Dr. Mccall on 04-17-2023 Platelets (Bld) [#/Vol] 237 10*3/uL 150-450 [facility] Serum or plasma calcium rosangela urement (mass/volume)Ordered By: Dr. Mccall on 04-17-2023 Calcium [Mass/Vol] 8.7 mg/dL 8.5-10.1 [facility] Serum or plasma creatinine m easurement (mass/volume)Ordered By: Dr. Mccall on 04-17-2023 Creatinine [Mass/Vol] 0.98 mg/dL 0.70-1.30 [facility] Comment on above: The validity of the calculated GFR & GFRAA in patients over 70 years has not been determined. Clinical correlation is essential. Serum or plasma urea nitroge n measurement (mass/volume)Ordered By: Dr. Mccall on 04-17-2023 Urea nitrogen [Mass/Vol] 17 mg/dL 7-18 [facility] Thin prep Papanicolaou smear with manual screeningOrdered By: Dr. Mccall on 04-17-2023 Thin prep Papanicolaou smear with manual screening 3 5-15 [facility] No Panel InformationOrdered By: Rogelio Colvin on 03-06-2023 Influenza Types A,B Direct FA (JAMIE) [facility] No Panel InformationOrdered By: Dr. Colvin on 03-06-2023 Influenza Types A,B Direct FA (JAMIE) [facility] RSV Ag EIAOrdered By: Rogelio armendariz on 03-06-2023 RSV Ag Immune stain Ql (Tiss) [facility] RSV Ag EIAOrdered By: Dr. Iliana armendariz on 03-06-2023 RSV Ag Immune stain Ql (Tiss) [facility] Absolute lymphocyte countOrd ered By: Dr. Gill on 01-11-2023 Lymphocytes Auto (Unsp spec) [#/Vol] 2.87 10*3/uL 0.83-4.51 [facility] Basophil percentageOrdered B y: Dr. Gill on 01-11-2023 Basophils/100 WBC (Bld) 0.6 % 0-[address] [facility] Chloride [Moles/Vol] 103 mmol/L 98-107 [facility] Eosinophils/100 WBC (Bld) 1.8 % 0-5 [facility] Glucose [Mass/Vol] 134 mg/dL 74-106 [facility] Comment on above: Fasting Glucose resu lt greater than or equal to 126 mg/dL suggests DIABETES MELLITUS per A.D.A. criteria. Neutrophils (Bld) [#/Vol] 6.7 10*3/uL 2.0-7.7 [facility] Neutrophils/100 WBC (Bld) 61.4 % 47-70 [facility] Potassium [Moles/Vol] 3.4 mmol/L 3.5-5.1 [facility] Sodium [Moles/Vol] 139 mmol/L 136-145 [facility] WBC (Bld) [#/Vol] 10.8 10*3/uL 4.4-11.0 [facility] Basophil percentageOrdered B y: Dr. Mccall on 01-11-2023 Chloride [Moles/Vol] 105 mmol/L 98-107 [facility] Glucose [Mass/Vol] 110 mg/dL 74-106 [facility] Comment on above: Fasting Glucose resu lt from 100 to 125 mg/dL suggests IMPAIRED HOMEOSTASIS per A.D.A. criteria. Potassium [Moles/Vol] 3.9 mmol/L 3.5-5.1 [facility] Sodium [Moles/Vol] 140 mmol/L 136-145 [facility] WBC (Bld) [#/Vol] 6.3 10*3/uL 4.4-11.0 [facility] Blood erythrocytes count (nu mber/volume)Ordered By: Dr. Gill on 01-11-2023 RBC (Bld) [#/Vol] 4.73 10*6/uL 4.6-6.2 [facility] Blood erythrocytes count (nu mber/volume)Ordered By: Dr. Mccall on 01-11-2023 RBC (Bld) [#/Vol] 4.16 10*6/uL 4.6-6.2 [facility] Blood hemoglobin measurement (mass/volume)Ordered By: Dr. Gill on 01-11-2023 Hemoglobin (Bld) [Mass/Vol] 14.3 g/dL 13.0-16.5 [facility] Blood hemoglobin measurement (mass/volume)Ordered By: Dr. Mccall on 01-11-2023 Hemoglobin (Bld) [Mass/Vol] 12.3 g/dL 13.0-16.5 [facility] Blood lymphocytes/100 leukoc ytesOrdered By: Dr. Gill on 01-11-2023 Lymphocytes/100 WBC (Bld) 26.5 % 19-41 [facility] Blood monocytes/100 leukocyt esOrdered By: Dr. Gill on 01-11-2023 Monocytes/100 WBC (Bld) 9.4 % 0-10 [facility] Blood platelet mean volumeOr dered By: Dr. Gill on 01-11-2023 Platelet mean volume (Bld) [Entitic vol] 9.1 fL 6.2-12.0 [facility] Blood platelet mean volumeOr dered By: Dr. Mccall on 01-11-2023 Platelet mean volume (Bld) [Entitic vol] 8.7 fL 6.2-12.0 [facility] Determination of erythrocyte mean corpuscular volume (MCV)Ordered By: Dr. Gill on 01-11-2023 MCV (RBC) [Entitic vol] 90.9 fL 80-94 [facility] Determination of erythrocyte mean corpuscular volume (MCV)Ordered By: Dr. Mccall on 01-11-2023 MCV (RBC) [Entitic vol] 91.1 fL 80-94 [facility] Glucose Glucometer (BldC) [M ass/Vol]Ordered By: Dr. Gill on 01-11-2023 Glucose [Mass/Vol] 150 mg/dL 74-106 [facility] Comment on above: MANAGEMENT OF PATIEN T CARE PER NURSING PROTOCOL Hematocrit Auto (Bld) [Volum e fraction]Ordered By: Dr. Gill on 01-11-2023 Hematocrit (Bld) [Volume fraction] 43.0 % 40-54 [facility] Hematocrit Auto (Bld) [Volum e fraction]Ordered By: Dr. Mccall on 01-11-2023 Hematocrit (Bld) [Volume fraction] 37.9 % 40-54 [facility] - Chemistry and C hemistry - challengeOrdered By: Dr. Gill on 01-11-2023 CO2 [Moles/Vol] 31.0 mmol/L 21.0-32.0 [facility] Urea nitrogen/Creatinine [Mass ratio] 15.8 mg/mg 10-20 [facility] - Chemistry and C hemistry - challengeOrdered By: Dr. Mccall on 01-11-2023 CO2 [Moles/Vol] 30.0 mmol/L 21.0-32.0 [facility] Urea nitrogen/Creatinine [Mass ratio] 16.1 mg/mg 10-20 [facility] - CoagulationOrde red By: Dr. Mccall on 01-11-2023 aPTT Coag (Bld) [Time] 51.2 s 24.1-36.2 [facility] Laboratory - Hematology and Cell countsOrdered By: Dr. Gill on 01-11-2023 Erythrocyte distribution width (RBC) [Entitic vol] 42.2 fL 35.1-43.9 [facility] Erythrocyte distribution width (RBC) [Ratio] 12.7 % 11.6-14.6 [facility] Immature granulocytes/100 WBC (Bld) 0.300 % 0.0-0.9 [facility] Comment on above: IG% - Immature Granu locytes (promyelocytes, myelocytes and metamyelocytes) > 1% indicates that a LEFT SHIFT is Present. MCH (RBC) [Entitic mass] 30.2 pg 27.0-32.0 [facility] Nucleated RBC/100 WBC (Bld) [Ratio] 0 % 0-5 [facility] - Hematology and Cell countsOrdered By: Dr. Mccall on 01-11-2023 Erythrocyte distribution width (RBC) [Entitic vol] 42.2 fL 35.1-43.9 [facility] Erythrocyte distribution width (RBC) [Ratio] 12.8 % 11.6-14.6 [facility] MCH (RBC) [Entitic mass] 29.6 pg 27.0-32.0 [facility] MCHC Auto (RBC) [Mass/Vol]Or dered By: Dr. Gill on 01-11-2023 MCHC (RBC) [Mass/Vol] 33.3 g/dL 32-36 [facility] MCHC Auto (RBC) [Mass/Vol]Or dered By: Dr. Mccall on 01-11-2023 MCHC (RBC) [Mass/Vol] 32.5 g/dL - [facility] No Panel InformationOrdered By: Dr. Gill on 01-11-2023 Estimated Creatinine Clearance Calc 91.13 ml/min [facility] Estimated GFR (MDRD) Amer 88 mL/min >60 [facility] Comment on above: GFR Calc Estimated GFR (MDRD) Non-Af Amer 72 mL/min >60 [facility] Comment on above: Non- GFR Calc Troponin I High Sensitivity 7 pg/mL 3.0-78.0 [facility] Comment on above: Please Note: New Melissa t Units and Gender Specific Reference Ranges. For more information see Policy Stat Procedure [place] High Sensitivity Troponin (TNIH) and attachments. No Panel InformationOrdered By: Dr. Mccall on 01-11-2023 Estimated Creatinine Clearance Calc 103.89 ml/min [facility] Estimated GFR (MDRD) Amer 103 mL/min >60 [facility] Comment on above: GFR Calc Estimated GFR (MDRD) Non-Af Amer 85 mL/min >60 [facility] Comment on above: Non- GFR Calc Platelets bldOrdered By: Dr. Gill on 01-11-2023 Platelets (Bld) [#/Vol] 337 10*3/uL 150-450 [facility] Platelets bldOrdered By: Dr. Mccall on 01-11-2023 Platelets (Bld) [#/Vol] 215 10*3/uL 150-450 [facility] Serum or plasma calcium rosangela urement (mass/volume)Ordered By: Dr. Gill on 01-11-2023 Calcium [Mass/Vol] 8.8 mg/dL 8.5-10.1 [facility] Serum or plasma calcium rosangela urement (mass/volume)Ordered By: Dr. Mccall on 01-11-2023 Calcium [Mass/Vol] 8.6 mg/dL 8.5-10.1 [facility] Serum or plasma creatinine m easurement (mass/volume)Ordered By: Dr. Gill on 01-11-2023 Creatinine [Mass/Vol] 1.14 mg/dL 0.70-1.30 [facility] Comment on above: The validity of the calculated GFR & GFRAA in patients over 70 years has not been determined. Clinical correlation is essential. Serum or plasma creatinine m easurement (mass/volume)Ordered By: Dr. Mccall on 01-11-2023 Creatinine [Mass/Vol] 1.00 mg/dL 0.70-1.30 [facility] Comment on above: The validity of the calculated GFR & GFRAA in patients over 70 years has not been determined. Clinical correlation is essential. Serum or plasma urea nitroge n measurement (mass/volume)Ordered By: Dr. Gill on 01-11-2023 Urea nitrogen [Mass/Vol] 18 mg/dL - [facility] Serum or plasma urea nitroge n measurement (mass/volume)Ordered By: Dr. Mccall on 01-11-2023 Urea nitrogen [Mass/Vol] 16 mg/dL 05-29 [facility] Thin prep Papanicolaou smear with manual screeningOrdered By: Dr. Gill on 01-11-2023 Thin prep Papanicolaou smear with manual screening 5 03-26 [facility] Thin prep Papanicolaou smear with manual screeningOrdered By: Dr. Mccall on 01-11-2023 Thin prep Papanicolaou smear with manual screening 5 - [facility] Absolute lymphocyte countOrd ered By: Teena Reynolds on 01-10-2023 Lymphocytes Auto (Unsp spec) [#/Vol] 1.56 10*3/uL 0.83-4.51 [facility] Basophil percentageOrdered B y: Teena Reynolds on 01-10-2023 Basophils/100 WBC (Bld) 0.7 % 0-1 [facility] Eosinophils/100 WBC (Bld) 2.6 % 0-5 [facility] Neutrophils (Bld) [#/Vol] 3.1 10*3/uL 2.0-7.7 [facility] Neutrophils/100 WBC (Bld) 57.9 % 47-70 [facility] Blood lymphocytes/100 leukoc ytesOrdered By: Teena Reynolds on 01-10-2023 Lymphocytes/100 WBC (Bld) 29.2 % 19-41 [facility] Blood monocytes/100 leukocyt esOrdered By: Teena Reynolds on 01-10-2023 Monocytes/100 WBC (Bld) 9.2 % 0-10 [facility] - Hematology and Cell countsOrdered By: Teena Reynolds on 01-10-2023 Immature granulocytes/100 WBC (Bld) 0.400 % 0.0-0.9 [facility] Comment on above: IG% - Immature Granu locytes (promyelocytes, myelocytes and metamyelocytes) > 1% indicates that a LEFT SHIFT is Present. Nucleated RBC/100 WBC (Bld) [Ratio] 0 % 0-5 [facility] No Panel InformationOrdered By: Dr. Mccall on 01-10-2023 Activated Clotting Time 215 sec 74-137 [facility] INR in Blood by Coagulation assayOrdered By: Teena Reynolds on 01-09-2023 INR Coag (Bld) [Relative time] 1.5 {INR} [facility] - CoagulationOrde red By: Teena Reynolds on 01-09-2023 PT Coag (PPP) [Time] 17.5 s 11.7-14.9 [facility] Absolute lymphocyte countOrd ered By: Kirstin Javier on 12-31-2022 Lymphocytes Auto (Unsp spec) [#/Vol] 1.34 10*3/uL 0.83-4.51 [facility] Basophil percentageOrdered B y: Kirstin Javier on 12-31-2022 Basophil percentage 0-5 SEEN /hpf 0-5 [facility] Basophils/100 WBC (Bld) 0.3 % 0-[address] [facility] Chloride [Moles/Vol] 106 mmol/L 98-107 [facility] Eosinophils/100 WBC (Bld) 1.2 % 0-5 [facility] Glucose [Mass/Vol] 130 mg/dL 74-106 [facility] Comment on above: Fasting Glucose resu lt greater than or equal to 126 mg/dL suggests DIABETES MELLITUS per A.D.A. criteria. Neutrophils (Bld) [#/Vol] 8.7 10*3/uL 2.0-7.7 [facility] Neutrophils/100 WBC (Bld) 78.1 % 47-70 [facility] Potassium [Moles/Vol] 4.1 mmol/L 3.5-5.1 [facility] Sodium [Moles/Vol] 140 mmol/L 136-145 [facility] WBC (Bld) [#/Vol] 11.1 10*3/uL 4.4-11.0 [facility] Bilirubin Test strip Ql (U)O rdered By: Kirstin Javier on 12-31-2022 Bilirubin Ql (U) Negative Negative [facility] Blood erythrocytes count (nu mber/volume)Ordered By: Kirstin Javier on 12-31-2022 RBC (Bld) [#/Vol] 5.08 10*6/uL 4.6-6.2 [facility] Blood hemoglobin measurement (mass/volume)Ordered By: Kirstin Javier on 12-31-2022 Hemoglobin (Bld) [Mass/Vol] 15.4 g/dL 13.0-16.5 [facility] Blood lymphocytes/100 leukoc ytesOrdered By: Kirstin Javier on 12-31-2022 Lymphocytes/100 WBC (Bld) 12.1 % 19-41 [facility] Blood monocytes/100 leukocyt esOrdered By: Kirstin Javier on 12-31-2022 Monocytes/100 WBC (Bld) 8.0 % 0-10 [facility] Blood platelet mean volumeOr dered By: Kirstin Javier on 12-31-2022 Platelet mean volume (Bld) [Entitic vol] 9.1 fL 6.2-12.0 [facility] Determination of erythrocyte mean corpuscular volume (MCV)Ordered By: Kirstin Javier on 12-31-2022 MCV (RBC) [Entitic vol] 89.6 fL 80-94 [facility] Hematocrit Auto (Bld) [Volum e fraction]Ordered By: Kirstin Javier on 12-31-2022 Hematocrit (Bld) [Volume fraction] 45.5 % 40-54 [facility] Ketones Test strip Ql (U)Ord ered By: Kirstin Javier on 12-31-2022 Ketones Ql (U) Negative Negative [facility] Laboratory - Chemistry and C hemistry - challengeOrdered By: Kirstin Javier on 12-31-2022 CK [Catalytic activity/Vol] 26 U/L 39-308 [facility] CO2 [Moles/Vol] 28.0 mmol/L 21.0-32.0 [facility] Urea nitrogen/Creatinine [Mass ratio] 26.6 mg/mg 10-20 [facility] - Hematology and Cell countsOrdered By: Kirstin Javier on 12-31-2022 Erythrocyte distribution width (RBC) [Entitic vol] 41.0 fL 35.1-43.9 [facility] Erythrocyte distribution width (RBC) [Ratio] 12.5 % 11.6-14.6 [facility] Immature granulocytes/100 WBC (Bld) 0.300 % 0.0-0.9 [facility] Comment on above: IG% - Immature Granu locytes (promyelocytes, myelocytes and metamyelocytes) > 1% indicates that a LEFT SHIFT is Present. MCH (RBC) [Entitic mass] 30.3 pg 27.0-32.0 [facility] Nucleated RBC/100 WBC (Bld) [Ratio] 0 % 0-5 [facility] MCHC Auto (RBC) [Mass/Vol]Or dered By: Kirstin Javier on 12-31-2022 MCHC (RBC) [Mass/Vol] 33.8 g/dL 32-36 [facility] Mucus LM Ql (Urine sed)Order ed By: Kirstin Javier on 12-31-2022 Mucus Ql (Urine sed) RARE /hpf [facility] Nitrite Test strip Ql (U)Ord ered By: Kirstin Javier on 12-31-2022 Nitrite Ql (U) Negative Negative [facility] No Panel InformationOrdered By: Kirstin Javier on 12-31-2022 Estimated Creatinine Clearance Calc 106.01 ml/min [facility] Estimated GFR (MDRD) Amer 105 mL/min >60 [facility] Comment on above: GFR Calc Estimated GFR (MDRD) Non-Af Amer 87 mL/min >60 [facility] Comment on above: Non- GFR Calc Platelets bldOrdered By: Melvina Javier on 12-31-2022 Platelets (Bld) [#/Vol] 182 10*3/uL 150-450 [facility] Protein Test strip Ql (U)Ord ered By: Kirstin Javier on 12-31-2022 Protein Ql (U) 15 mg/dl Negative [facility] Serum or plasma calcium rosangela urement (mass/volume)Ordered By: Kirstin Javier on 12-31-2022 Calcium [Mass/Vol] 9.1 mg/dL 8.5-10.1 [facility] Serum or plasma creatinine m easurement (mass/volume)Ordered By: Kirstin Javier on 12-31-2022 Creatinine [Mass/Vol] 0.98 mg/dL 0.70-1.30 [facility] Comment on above: The validity of the calculated GFR & GFRAA in patients over 70 years has not been determined. Clinical correlation is essential. Serum or plasma urea nitroge n measurement (mass/volume)Ordered By: Kirstin Javier on 12-31-2022 Urea nitrogen [Mass/Vol] 26 mg/dL 7-18 [facility] Squamous epithelial cells de tection in urine sediment by light microscopyOrdered By: Kirstin Javier on 12-31-2022 Epithelial cells.squamous LM Ql (Urine sed) 0-5 SEEN /hpf 0-5 [facility] Thin prep Papanicolaou smear with manual screeningOrdered By: Kirstin Javier on 12-31-2022 Thin prep Papanicolaou smear with manual screening 6 5-15 [facility] Urine blood detectionOrdered By: Kirstin Javier on 12-31-2022 RBC Ql (U) 10 /ul Negative [facility] RBC Ql (U) 0-5 SEEN /hpf 0-5 [facility] Urine clarityOrdered By: Melvina Javier on 12-31-2022 Clarity (U) Sl. Cloudy Clear [facility] Urine color determinationOrd ered By: Kirstin Javier on 12-31-2022 Color (U) Yellow Yellow [facility] Urine glucose detectionOrder ed By: Kirstin Javier on 12-31-2022 Glucose Ql (U) Normal mg/dl Normal [facility] Urine leukocyte esterase det ection by dipstickOrdered By: Kirstin Javier on 12-31-2022 Leukocyte esterase Test strip Ql (U) Negative Negative [facility] Urine pHOrdered By: Kirstin vargas on 12-31-2022 pH (U) 5.0 [pH] 5.0 - 8.0 [facility] Urine sediment bacteria coun t by microscopy (number/high power field)Ordered By: Kirstin Javier on 12-31-2022 Bacteria LM.HPF (Urine sed) [#/Area] RARE /hpf None Seen [facility] Urine specific gravity measu rementOrdered By: Kirstin Javier on 12-31-2022 Specific gravity (U) [Rel density] 1.025 1.002-1.030 [facility] Urobilinogen Auto test strip Ql (U)Ordered By: Kirstin Eubanksalicia on 12-31-2022 Urobilinogen Ql (U) 1 mg/dl Normal [facility] EMERGENCY REPORTon 3 EMERGENCY REPORT [facility] EMERGENCY ROOM REPORT NAME ACCOUNT SEX AGE ADMIT DISCHARGE PT MED. RECORD# NUMBER DATE DATE TYPE ADIA [id number] [address] 47 12/04/22 12/04/22 3 DELTA Macias [id number] ROOM: ER DATE OF : 1975 DICTATING PHYSICIAN: Cj Leiva CHIEF COMPLAINT: Back pain. HISTORY OF PRESENT ILLNESS: The patient states that 3 days ago on Sunday, December 01, 2022, he moved a heavy table saw. As he did that, he felt some type of a pull or a twinge to his lower back area on the right side and had some achy pain to that area Sunday and Sunday. Yesterday, that pain was more significant and seemed to radiate somewhat to his hip and leg area, especially dorsally along the leg down to his knee. He had been taking ibuprofen. He was ambulatory with that. However, upon awakening this morning he had marked pain and had significant difficulty getting out of bed and significant difficulty walking. He could stand and put some weight on it but had marked pain with any movement, walking, etc. He has had no incontinence. He is not complaining of numbness or tingling in his extremities. No nausea or vomiting. He has been able to eat and drink. He does not have a history of any significant back injuries or problems in the past. He is usually quite healthy and active. PAST MEDICAL HISTORY: Significant for hypertension. Otherwise, no medical problems. PAST SURGICAL HISTORY: Previous remote hernia surgery. MEDICATIONS: Per medication reconciliation list. SOCIAL HISTORY: He lives at home with family, who accompany him here. He does not smoke. He does use oral tobacco. He does not drink alcohol or use other drugs. 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 REVIEW OF SYSTEMS: As mentioned above. No other systems are involved. PHYSICAL EXAMINATION: GENERAL: This is a 47-year-old, slightly heavy-built, very pleasant male who is alert and appropriate. He is lying on his left side on the cart. He does not appear in significant distress unless he has some movement and then does seem in pain. SKIN: His skin is warm and dry. HEENT: No head or neck pain or tenderness. MUSCULOSKELETAL: He does not have any tenderness to his mid or upper back. No respiratory distress. No chest or abdominal tenderness. He does seem to have some tenderness to the right paraspinal area to the lumbar area which seems to radiate a bit laterally to the musculature and SI area. He has some slight discomfort with Page 1 of 2 [facility] Emergency Room Report DELTA CHEEK : 1975 palpation into the gluteal and lateral hip area. He complains of pain into the leg but does not have pain with palpation. No discomfort to the knee or below the knee. No joint effusion. He does have symmetrical deep tendon reflexes bilaterally but does have increasing pain to his back with leg movement. VITAL SIGNS: Temperature is 97.6, pulse 78, respirations 18, and blood pressure 140/86. EMERGENCY DEPARTMENT COURSE AND TREATMENT: An IV was placed. I initially gave him 15 mg of Toradol and 0.5 mg of Dilaudid, which helped mildly with his pain. We did proceed to get a CT of the lumbar area, which showed degenerative changes but no other acute abnormalities. I gave him another dose of 15 mg of Toradol and 1 mg of Dilaudid, and that did help significantly with his pain. DIAGNOSIS: Acute back pain. This is certainly consistent with lumbar radiculopathy, possibly discogenic in origin. PLAN/DISPOSITION: He will be discharged with a prescription for a several-day course of prednisone, Zanaflex and Percocet, which were called in to [facility] in [place]. Limited activity over the next 2 to 4 days and then as tolerated. I recommended follow-up with his family physician or Orthopedics for further management, returning if symptoms worsen. Dictated By: Cj Leiva MD 12/04/22 11:56 JOB #: [id number] Transcribed By: richmond 12/05/22 18:18 Electronically signed by: MAC Leiva M.D. 12/08/22 07:37 Page 2 of 2 [facility] Emergency Room Report Normal [facility] Absolute lymphocyte countOrd ered By: Dr. Jeffery on 12-06-2022 Lymphocytes Auto (Unsp spec) [#/Vol] 0.72 10*3/uL 0.83-4.51 [facility] Basophil percentageOrdered B y: Jacek Raygoza on 12-06-2022 Basophil percentage 0 SEEN /hpf 0-5 [facility] Basophil percentageOrdered B y: Dr. Jeffery on 12-06-2022 Basophils/100 WBC (Bld) 0.1 % 0-1 [facility] Chloride [Moles/Vol] 109 mmol/L 98-107 [facility] Eosinophils/100 WBC (Bld) 0.0 % 0-5 [facility] Glucose [Mass/Vol] 127 mg/dL 74-106 [facility] Comment on above: Fasting Glucose resu lt greater than or equal to 126 mg/dL suggests DIABETES MELLITUS per A.D.A. criteria. Neutrophils (Bld) [#/Vol] 8.7 10*3/uL 2.0-7.7 [facility] Neutrophils/100 WBC (Bld) 90.1 % 47-70 [facility] Potassium [Moles/Vol] 4.0 mmol/L 3.5-5.1 [facility] Sodium [Moles/Vol] 140 mmol/L 136-145 [facility] WBC (Bld) [#/Vol] 9.7 10*3/uL 4.4-11.0 [facility] Bilirubin Test strip Ql (U)O rdered By: Jacek Raygoza on 12-06-2022 Bilirubin Ql (U) Negative Negative [facility] Blood erythrocytes count (nu mber/volume)Ordered By: Dr. Jeffery on 12-06-2022 RBC (Bld) [#/Vol] 5.02 10*6/uL 4.6-6.2 [facility] Blood hemoglobin measurement (mass/volume)Ordered By: Dr. Jeffery on 12-06-2022 Hemoglobin (Bld) [Mass/Vol] 14.6 g/dL 13.0-16.5 [facility] Blood lymphocytes/100 leukoc ytesOrdered By: Dr. Jeffery on 12-06-2022 Lymphocytes/100 WBC (Bld) 7.4 % 19-41 [facility] Blood monocytes/100 leukocyt esOrdered By: Dr. Jeffery on 12-06-2022 Monocytes/100 WBC (Bld) 1.9 % 0-10 [facility] Blood platelet mean volumeOr dered By: Dr. Jeffery on 12-06-2022 Platelet mean volume (Bld) [Entitic vol] 9.4 fL 6.2-12.0 [facility] Determination of erythrocyte mean corpuscular volume (MCV)Ordered By: Dr. Jeffery on 12-06-2022 MCV (RBC) [Entitic vol] 86.3 fL 80-94 [facility] Hematocrit Auto (Bld) [Volum e fraction]Ordered By: Dr. Jeffery on 12-06-2022 Hematocrit (Bld) [Volume fraction] 43.3 % 40-54 [facility] Ketones Test strip Ql (U)Ord ered By: Jacek Raygoza on 12-06-2022 Ketones Ql (U) Negative Negative [facility] - Chemistry and C hemistry - challengeOrdered By: Dr. Jeffery on 12-06-2022 CO2 [Moles/Vol] 25.0 mmol/L 21.0-32.0 [facility] Urea nitrogen/Creatinine [Mass ratio] 15.5 mg/mg 10-20 [facility] - Hematology and Cell countsOrdered By: Dr. Jeffery on 12-06-2022 Erythrocyte distribution width (RBC) [Entitic vol] 38.5 fL 35.1-43.9 [facility] Erythrocyte distribution width (RBC) [Ratio] 12.4 % 11.6-14.6 [facility] Immature granulocytes/100 WBC (Bld) 0.500 % 0.0-0.9 [facility] Comment on above: IG% - Immature Granu locytes (promyelocytes, myelocytes and metamyelocytes) > 1% indicates that a LEFT SHIFT is Present. MCH (RBC) [Entitic mass] 29.1 pg 27.0-32.0 [facility] Nucleated RBC/100 WBC (Bld) [Ratio] 0 % 0-5 [facility] MCHC Auto (RBC) [Mass/Vol]Or dered By: Dr. Jeffery on 12-06-2022 MCHC (RBC) [Mass/Vol] 33.7 g/dL 32-36 [facility] Mucus LM Ql (Urine sed)Order ed By: Jacek Raygoza on 12-06-2022 Mucus Ql (Urine sed) 0 SEEN /hpf [facility] Nitrite Test strip Ql (U)Ord ered By: Jacek Raygoza on 12-06-2022 Nitrite Ql (U) Negative Negative [facility] No Panel InformationOrdered By: Dr. Jeffery on 12-06-2022 Estimated Creatinine Clearance Calc 89.56 ml/min [facility] Estimated GFR (MDRD) Amer 86 mL/min >60 [facility] Comment on above: GFR Calc Estimated GFR (MDRD) Non-Af Amer 71 mL/min >60 [facility] Comment on above: Non- GFR Calc Platelets bldOrdered By: Dr. Jeffery on 12-06-2022 Platelets (Bld) [#/Vol] 230 10*3/uL 150-450 [facility] Protein Test strip Ql (U)Ord ered By: Jacek Raygoza on 12-06-2022 Protein Ql (U) Negative Negative [facility] Serum or plasma calcium rosangela urement (mass/volume)Ordered By: Dr. Jeffery on 12-06-2022 Calcium [Mass/Vol] 8.8 mg/dL 8.5-10.1 [facility] Serum or plasma creatinine m easurement (mass/volume)Ordered By: Dr. Jeffery on 12-06-2022 Creatinine [Mass/Vol] 1.16 mg/dL 0.70-1.30 [facility] Comment on above: The validity of the calculated GFR & GFRAA in patients over 70 years has not been determined. Clinical correlation is essential. Serum or plasma urea nitroge n measurement (mass/volume)Ordered By: Dr. Jeffery on 12-06-2022 Urea nitrogen [Mass/Vol] 18 mg/dL 7-18 [facility] Squamous epithelial cells de tection in urine sediment by light microscopyOrdered By: Jacek Raygoza on 12-06-2022 Epithelial cells.squamous LM Ql (Urine sed) 0 SEEN /hpf 0-5 [facility] Thin prep Papanicolaou smear with manual screeningOrdered By: Dr. Jeffery on 12-06-2022 Thin prep Papanicolaou smear with manual screening 6 5-15 [facility] Urine blood detectionOrdered By: Jacek Raygoza on 12-06-2022 RBC Ql (U) Negative Negative [facility] RBC Ql (U) 0 SEEN /hpf 0-5 [facility] Urine clarityOrdered By: Yevgeniy Raygoza on 12-06-2022 Clarity (U) Clear Clear [facility] Urine color determinationOrd ered By: Jacek Raygoza on 12-06-2022 Color (U) Yellow Yellow [facility] Urine glucose detectionOrder ed By: Jacek Raygoza on 12-06-2022 Glucose Ql (U) Normal mg/dl Normal [facility] Urine leukocyte esterase det ection by dipstickOrdered By: Jacek Raygoza on 12-06-2022 Leukocyte esterase Test strip Ql (U) Negative Negative [facility] Urine pHOrdered By: Jacek zamorano on 12-06-2022 pH (U) 8.0 [pH] 5.0 - 8.0 [facility] Urine sediment bacteria coun t by microscopy (number/high power field)Ordered By: Jacek Raygoza on 12-06-2022 Bacteria LM.HPF (Urine sed) [#/Area] 0 /[HPF] None Seen [facility] Urine specific gravity measu rementOrdered By: Jacek Raygoza on 12-06-2022 Specific gravity (U) [Rel density] 1.015 1.002-1.030 [facility] Urobilinogen Auto test strip Ql (U)Ordered By: Jacek Raygoza on 12-06-2022 Urobilinogen Ql (U) Normal mg/dl Normal [facility] CT LUMBAR W/O CONTRASTon CT LUMBAR W/O CONTRAST [place] [address] Patient: DELTA CHEEK Phone#: : 1975 Age: 47 Gender: M Pt. Type: ER Account: [id number] Location: [facility] Ordering: CJ LEIVA Exam Date: 12/04/2022/9:42 Family Phys: ROGELIO COLVIN Charge Code: 632183 Physician: Rawlins Order #: [id number] Dose#: 28.9 [id number] PROCEDURE: CT LUMBAR SPINE WITHOUT CONTRAST COMPARISON: None. INDICATIONS: Pain. TECHNIQUE: After obtaining the patient's consent, multi-planar CT images were created without intravenous contrast material. All CT scans at this facility use dose modulation, iterative reconstruction, and/or weight based dosing when appropriate to reduce radiation dose to as low as reasonably achievable. IV CONTRAST: No IV contrast used,0ml TOTAL DOSE: 28.9 CTDIvol(mGy) FINDINGS: PARASPINAL AREA: Normal with no visible mass. BONES: No fracture, pars defect, or osseous lesion. LUMBAR DISC LEVELS: L1-L2: No significant disc/facet abnormality, spinal stenosis, or foraminal stenosis. L2-L3: Mild disc space narrowing is present. There is mild bony hypertrophy at the articular facettes. L3-L4: No significant disc/facet abnormality, spinal stenosis, or foraminal stenosis. L4-L5: There is marked disc space narrowing mm. There is anterior inferior Schmorl's node at L4. Sclerosis is present at the endplates. Endplate hypertrophy is present with narrowing of the foramina bilaterally. There is mild narrowing the spinal canal. L5-S1: No significant disc/facet abnormality, spinal stenosis, or foraminal stenosis. CONCLUSION: 1. Moderately severe degenerative changes present at the L4-5 level. 2. There is no evidence of acute bone abnormality. Dictated by: Gin Dunn MD on 12/04/2022 at 10:24 Approved by: Gin Dunn MD on 12/04/2022 at 10:[address] [facility] BASIC METABOLIC PANELon 05-2 Anion gap [Moles/Vol] 9 mmol/L Low 10 - 20 [facility] Comment on above: Performed By: #### B MP #### [address] [address] Calcium [Mass/Vol] 8.9 mg/dL Normal 8.6 - 10.3 [facility] Comment on above: Performed By: #### B MP #### [address] [address] Chloride [Moles/Vol] 108 mmol/L High 98 - 107 [facility] Comment on above: Performed By: #### B MP #### [address] [address] Creatinine [Mass/Vol] 0.93 mg/dL Normal 0.50 - 1.30 [facility] Comment on above: Performed By: #### B MP #### [address] [address] eGFR MALE >90 Normal >90 [facility] Comment on above: Result Comment: CALC ULATIONS OF ESTIMATED GFR ARE PERFORMED USING THE 2020 CKD-EPI STUDY REFIT EQUATION WITHOUT THE RACE VARIABLE FOR THE IDMS-TRACEABLE CREATININE METHODS. https://jasn.asnjournals.org/content/early//ASN.677 1576790 Performed By: #### B MP #### [address] [address] Glucose [Mass/Vol] 89 mg/dL Normal 74 - 99 [facility] Comment on above: Performed By: #### B MP #### [address] [address] HCO3 (Bld) [Moles/Vol] 27 mmol/L Normal 21 - 32 [facility] Comment on above: Performed By: #### B MP #### [address] [address] Potassium [Moles/Vol] 3.7 mmol/L Normal 3.5 - 5.3 [facility] Comment on above: Performed By: #### B MP #### [address] [address] Sodium [Moles/Vol] 140 mmol/L Normal 136 - 145 [facility] Comment on above: Performed By: #### B MP #### [address] [address] Urea nitrogen [Mass/Vol] 13 mg/dL Normal 6 - 23 [facility] Comment on above: Performed By: #### B MP #### [address] [address] BNPon 04-04-2022 Natriuretic peptide B (Bld) [Mass/Vol] 16 pg/mL Normal 0 - 99 [facility] Comment on above: Result Comment: . <1 00 pg/mL - Heart failure unlikely 100-299 pg/mL - Intermediate probability of acute heart . failure exacerbation. Correlate with clinical . context and patient history. >=300 pg/mL - Heart Failure likely. Correlate with clinical . context and patient history. BNP testing is performed using different testing methodology at [facility] than at other [facility]. Direct result comparisons should only be made within the same method. Performed By: #### B NP2 #### [address] [address] CBC AND DIFFERENTIALon 04-04 Basophils (Bld) [#/Vol] 0.10 10*3/uL Normal 0.00 - 0.1 0 [facility] Comment on above: Performed By: #### C BCDF #### [address] [address] Basophils/100 WBC (Bld) 1.1 % Normal 0.0 - 2.0 [facility] Comment on above: Performed By: #### C BCDF #### [address] [address] Eosinophils (Bld) [#/Vol] 0.10 10*3/uL Normal 0.00 - 0.70 [facility] Comment on above: Performed By: #### C BCDF #### [address] [address] Eosinophils/100 WBC (Bld) 2.0 % Normal 0.0 - 6.0 [facility] Comment on above: Performed By: #### C BCDF #### [address] [address] Erythrocyte distribution width (RBC) [Ratio] 12.9 % Normal 11.5 - 14.5 [facility] Comment on above: Performed By: #### C BCDF #### [address] [address] Hematocrit (Bld) [Volume fraction] 44.6 % Normal 41.0 - 52.0 [facility] Comment on above: Performed By: #### C BCDF #### [address] [address] Hemoglobin (Bld) [Mass/Vol] 15.0 g/dL Normal 13.5 - 17.5 [facility] Comment on above: Performed By: #### C BCDF #### [address] [address] Lymphocytes (Bld) [#/Vol] 1.80 10*3/uL Normal 1.20 - 4.80 [facility] Comment on above: Performed By: #### C BCDF #### [address] [address] Lymphocytes/100 WBC (Bld) 28.9 % Normal 13.0 - 44.0 [facility] Comment on above: Performed By: #### C BCDF #### [address] [address] MCHC (RBC) [Mass/Vol] 33.7 g/dL Normal 32.0 - 36.0 [facility] Comment on above: Performed By: #### C BCDF #### [address] [address] MCV (RBC) [Entitic vol] 86 fL Normal 80 - [address] [facility] Comment on above: Performed By: #### C BCDF #### [address] [address] Monocytes (Bld) [#/Vol] 0.50 10*3/uL Normal 0.10 - 1.0 0 [facility] Comment on above: Performed By: #### C BCDF #### [address] [address] Monocytes/100 WBC (Bld) 8.6 % Normal 2.0 - 10.[address] [facility] Comment on above: Performed By: #### C BCDF #### [address] [address] Neutrophils (Bld) [#/Vol] 3.60 10*3/uL Normal 1.20 - 7.70 [facility] Comment on above: Result Comment: Perc ent differential counts (%) should be interpreted in the context of the absolute cell counts (cells/L). Performed By: #### C BCDF #### [address] [address] Neutrophils/100 WBC (Bld) 59.4 % Normal 40.0 - 80.0 [facility] Comment on above: Performed By: #### C BCDF #### [address] [address] NUCLEATED RBC 0.1 /100 WBC Normal [facility] Comment on above: Performed By: #### C BCDF #### [address] [address] Platelets (Bld) [#/Vol] 222 10*3/uL Normal 150 - 450 [facility] Comment on above: Performed By: #### C BCDF #### [address] [address] RBC 5.16 x10E12/L Normal 4.50 - 5.90 [facility] Comment on above: Performed By: #### C BCDF #### [address] [address] WBC (Bld) [#/Vol] 6.1 10*3/uL Normal 4.4 - 11.3 [facility] Comment on above: Performed By: #### C BCDF #### [address] [address] CHEST 1 VIEWon 04-04-2022 CHEST 1 VIEW Patient Name: DELTA CHEEK STUDY: CHEST 1 VIEW; 04/04/2022 7:45 pm INDICATION: Chest Pain . COMPARISON: Chest radiograph dated 05/13/2019. ACCESSION NUMBER(S): [id number] ORDERING CLINICIAN: MIA STEIN FINDINGS: CARDIOMEDIASTINAL SILHOUETTE: Cardiomediastinal silhouette is normal in size and configuration. LUNGS/PLEURA: There are no consolidations.The re are no pleural effusions. There is no demonstrated pneumothorax. BONES: Visualized osseous structures are intact. IMPRESSION: 1. No evidence of acute cardiopulmonary process. Electronically signed by: ROSITA NAGEL DO Normal [facility] Electrocardiogram 12 Leadon 04-04-2022 Electrocardiogram 12 Lead Ventricular Rate 71 Atrial Rate 71 P-R Interval 152 QRS Duration 78 Q-T Interval 362 QTC Calculation(Bazett ) 393 P Sterling 52 R Sterling 53 T Sterling 28 QRS Count 11 Q Onset 219 P Onset 143 P Offset 200 T Offset 400 QTC Fredericia 383 Diagnosis Class Normal Diagnosis Please see physician note for formal interpretation confirmed by Scribe Confirmed by Yonathan Frausto () on 04/11/2022 12:40:14 PM Normal [facility] MAGNESIUMon 04-04-2022 Magnesium [Mass/Vol] 2.19 mg/dL Normal 1.60 - 2.40 [facility] Comment on above: Performed By: #### M G #### [facility] [address] [place] [address] Provider Note - ED v3on 03-13 Provider Note - ED v3 Provider Note: Chart Review: HISTORY OF PRESENTING ILLNESS DELTA is a 46 year old Male and was seen by me at 04-Apr-2022 18:35 for a chief complaint of chest pain (Patient to ED reference left sided chest pain that moves toward mid sternal. Pain is sharp (feels like a knife stab) and intermittent in intensity.)(1). Triage Information: Most recent Vital Sign Value Date Temp (F): 98.2 04-04-2022 18:23 Temp (C): 36.7 04-04-2022 18:23 Heart Rate (beats/min): 70 04-04-2022 18:23 Respirations (breaths/min): 18 04-04-2022 18:23 SpO2 (%): 100 04-04-2022 18:23 BP Systolic (mm Hg): 157 04-04-2022 18:23 BP Diastolic (mm Hg): 99 04-04-2022 18:23 PAST MEDICAL HISTORY ALLERGIES/INTOLERA NCES: No Known Allergies HEALTH HISTORY: No documented data. OUTPATIENT MEDICATIONS: Home Medications Review Status for Reconciliation: Not Done Med Status: Patient Currently Takes Medications Drug Name: amLODIPine 5 mg oral tablet Instructions: 1 tab(s) orally once a day SIGNIFICANT EVENTS: No documented data. CRITICAL CARE RESULTS: Recent Lab Results: I have reviewed these laboratory results: Troponin I, High Sensitivity Trending View [id number] 19:42:00 04-Apr-2022 18:56:00 Troponin I, High Sensitivity3 3 Complete Blood Count + Differential 04-Apr-2022 18:56:00 ResultValue White Blood Cell Count 6.1 Nucleated Erythrocyte Count 0.1 Red Blood Cell Count 5.16 HGB 15.0 HCT 44.6 MCV 86 MCHC 33.7 PLT 222 RDW-CV 12.9 Neutrophil % 59.4 Lymphocyte % 28.9 Monocyte % 8.6 Eosinophil % 2.0 Basophil % 1.1 Neutrophil Count 3.60 Lymphocyte Count 1.80 Monocyte Count 0.50 Eosinophil Count 0.10 Basophil Count 0.10 Basic Metabolic Panel 04-Apr-2022 18:56:00 ResultValue Glucose, Serum 89 NA 140 K 3.7 CL 108 H Bicarbonate, Serum 27 Anion Gap, Serum 9 L BUN 13 CREAT 0.93 GFR Male >90 Calcium, Serum 8.9 Magnesium, Serum 04-Apr-2022 18:56:00 ResultValue Magnesium, Serum 2.19 Brain Natriuretic Peptide 04-Apr-2022 18:56:00 ResultValue Brain Natriuretic Peptide 16 Radiology Results: Impression: 1. No evidence of acute cardiopulmonary process. Xray Chest 1 View [Apr 04 2022 8:13PM] VITAL SIGNS: T PRBP SpO2O2(LPM) %FiO2 Method 04-Apr-2022 20:30:00-6651793/7 9 97 room air, no respiratory support 04-Apr-2022 19:30:00-8146993/8 7 97 room air, no respiratory support 04-Apr-2022 19:17:00-4187711/1 15 97 room air, no respiratory support 04-Apr-2022 18:54:00-5334564/9 5 98 room air, no respiratory support 04-Apr-2022 18:23:[id number] 57/99 100 room air, no respiratory support [facility] MDM/ED COURSE: PMH: Reviewed PSH: Reviewed Social History: Reviewed. Allergies reviewed. HPI: This is a 46 year old male with history of hypertension, not currently on medication due to finances who presents to the ED today with complaints of left-sided chest pain. States that he was walking around 6 PM when the pain suddenly started. States it started in the left chest and radiated to the midsternal area. Described as a sharp knifelike stabbing sensation. The intensity waxes and wanes but it does not go fully away. He is never had pain like this in the past. He said he had associated nausea, diaphoresis, sweaty palms. He states he had a full cardiac work-up done about 12 years ago including stress test. He states that did not reveal any structural cardiac abnormalities. Father has history of cardiac disease and stroke. Denies any recent illness. Denies fevers or chills. Denies cough or congestion. REVIEW OF SYSTEMS: All other systems reviewed and negative except as listed in HPI. PHYSICAL EXAM: GENERAL: Vitals noted, no distress. Alert and oriented x 3. Non-toxic. EENT: TMs clear. Posterior oropharynx unremarkable. EOMI, no nystagmus noted. NECK: Supple. No masses. No midline tenderness. No meningeal signs. CARDIAC: Regular rate, rhythm. No murmurs rubs or gallops. No JVD. Left chest wall nontender to palpation. PULMONARY: Lungs clear and equal bilaterally. No wheezes rales or rhonchi. No respiratory distress. ABDOMEN: Soft, nondistended, and nontender. No peritoneal signs. Bowel sounds are present and normoactive in all 4 quadrants. No pulsatile masses. EXTREMITIES: No peripheral edema. SKIN: No rash. Warm, dry, and intact. NEURO: No focal neurologic deficits. ED COURSE: This patient was seen and examined by myself and Dr. Suarez. He is placed on a continuous secured entrance monitor with pulse oximetry monitoring. Old records and EKGs are obtained and reviewed. IV heplock is established, labs are obtained and noted above. Given Zofran for nausea. Hydrated with NS 500ml bolus. Troponin x2 negative. BP improved. He's been off his BP medications for about 8 months now. Will start him on low-dose amlodipine with 30 day prescription. Referred to cardiology for follow (more content not included)... Normal [facility] TROPONIN I, HIGH SENSITIVITY on 04-04-2022 TROPONIN I, HIGH SENSITIVITY 3 ng/L Normal 0 - 20 [facility] Comment on above: Result Comment: . Less than 99th percentile of normal range cutoff- Female and children under 18 years old <14 ng/L; Male <21 ng/L: Negative Repeat testing should be performed if clinically indicated. . Female and children under 18 years old 14-50 ng/L; Male 21-50 ng/L: Consistent with possible cardiac damage and possible increased clinical risk. Serial measurements may help to assess extent of myocardial damage. . >50 ng/L: Consistent with cardiac damage, increased clinical risk and myocardial infarction. Serial measurements may help assess extent of myocardial damage. . NOTE: Children less than 1 year old may have higher baseline troponin levels and results should be interpreted in conjunction with the overall clinical context. . NOTE: Troponin I testing is performed using a different testing methodology at [facility] than at other [facility]. Direct result comparisons should only be made within the same method. Performed By: #### T [facility] #### [address] [address] TROPONIN I, HIGH SENSITIVITY 3 ng/L Normal 0 - 20 [facility] Comment on above: Result Comment: . Less than 99th percentile of normal range cutoff- Female and children under 18 years old <14 ng/L; Male <21 ng/L: Negative Repeat testing should be performed if clinically indicated. . Female and children under 18 years old 14-50 ng/L; Male 21-50 ng/L: Consistent with possible cardiac damage and possible increased clinical risk. Serial measurements may help to assess extent of myocardial damage. . >50 ng/L: Consistent with cardiac damage, increased clinical risk and myocardial infarction. Serial measurements may help assess extent of myocardial damage. . NOTE: Children less than 1 year old may have higher baseline troponin levels and results should be interpreted in conjunction with the overall clinical context. . NOTE: Troponin I testing is performed using a different testing methodology at [facility] than at other [facility]. Direct result comparisons should only be made within the same method. Performed By: #### T [facility] #### [address] [address] Adam 06-13-2021 CNOV Office Visit (UROLMN) -------- DELTA CHEEK JR. ([id number]) 1975 M Date Time Provider Department 06/13/21 10:15 AM FRAN ARCHIBALD During your visit today, we recorded the following information about you: Pulse Blood pressure Weight 78/minute 137/96 113.4 kg Fran Archibald MD 06/13/2021 11:21 AM Signed [facility] UROLOGICAL [place] NEW PATIENT HISTORY AND PHYSICAL EXAM PATIENT INFO: Delta Cheek Jr. 45 year old REFERRING M.D.: Scar Mensah MD ([facility]) [address] [place] [id number] This consult was requested by Scar Mensah MD for an opinion regarding peyronies disease, and my final recommendations will be communicated to the requesting health care provider by way of the shared medical record for internal providers or letter via the [employer] for external providers. HISTORY Chief Complaint: penile curvature, shortening HPI: This is 45 year old male with no urologic history. He notes that in December/January of this year he noted that his erect penis was approximately 40% less in length and girth than previous. He also noted a 15 degree dorsal curvature. This appeared to be a sudden onset. He reports excellent erections with no pain and no issues with penetrative intercourse. He was offered Shonda and was referred for further evaluation. Onset of curvature: January 2021 Degree of primary curvature: <15 degrees Direction of primary curvature:dorsal Degree of secondary curvature:N/A degrees Direction of secondary curvature: NA Known or probable prior injury or buckling event: no Pain with erections previously: yes Pain with erections in the past month: yes ED: Partial or insufficient erections denies Hinging or bending with erections: no Prior therapies:none Is the patient able to have intercourse? Y Is the patient circumcised? circumcised Personal history of Dupuytren's contracture or Ledderhose's disease none MEDICATIONS: Current Outpatient Medications Medication Sig - losartan-hydroCHLO ROthiazide (HYZAAR) 100-25 mg per tablet TAKE 1 TABLET ORALLY ONCE PER DAY FOR 90 DAYS - PARoxetine (PAXIL) 40 mg tablet TAKE 1 TABLET ORALLY ONCE PER DAY FOR 90 DAYS - Valsartan-Hydrochl orothiazide 320-25 mg per tablet - PARoxetine (PAXIL) 20 mg tablet No current facility-administe red medications for this visit. MEDICATION ALLERGIES: ALLERGIES No Known Allergies PAST MEDICAL HISTORY Diagnosis Date - Essential hypertension 06/13/2021 - Morbid obesity with BMI of 40.0-44.9, adult (HCC) 06/13/2021 - Peyronie's disease 06/13/2021 PAST SURGICAL HISTORY Procedure Laterality Date - COLONOSCOP W/ OR W/O BRSH SPEC Colonoscopy - REPAIR FEMORAL HERNIA right FAMILY HISTORY: NEGATIVE: No related previous family history. FAMILY HISTORY 1st Degree Relative: no peyronies disease Social History Tobacco Use - Smoking status: Never Smoker - Smokeless tobacco: Current User Types: Chew Substance Use Topics - Alcohol use: No - Drug use: Not on file REVIEW OF SYSTEMS: Constitutional: negative Eyes: negative Ear Nose and Throat: negative Cardiovascular: negative Respiratory: negative Gastrointestinal: negative Musculoskeletal: negative Integumentary: negative Neurological: negative Psychiatric: negative Endocrine: negative Hematologic/Lympha tic: negative Allergic/Immunolog ic: negative PHYSICAL EXAM: BP 137/96 Pulse 78 Wt 113.4 kg (250 lb) BMI 42.91 kg/m? GENERAL: WNL nutrition, no deformities, healthy appearing HEAD AND NECK: No masses, adenopathy, icterus. Thyroid nonpalpable RESP: nonlabored CV: RRR, ABDOMEN: Soft, nontender, nondistended, no masses. HERNIAS: None SKIN/LYMPH: No rash, lesions NEURO/PSYCH: No signs of depression, anxiety, or agitation EXTREMITIES: Extremities normal. No deformities, edema, clubbing or skin discoloration. GENITOURINARY: MALE EXAM: Large suprapubic fat pad limiting proximal exam of penis. Testes nontender. Penis circ, no plaques appreciated on midshaft to distal penis. MEDICAL DECISION MAKING: (A1) IMPRESSION: (Diagnostic Possibilities) New or Established 1) Peyronies Disease (A2) PLAN: (Management Options) Patient with stable <15 degree dorsal curvature. He has erections sufficient for penetrative intercourse. He is concerned about length and girth. We discussed weight loss strategies to improve exposure of his penis. We discussed that there are no surgical options given his stable curvature and strong erections. Buzz Weiner MD Clinical Fellow Male Genitourinary Reconstruction AND Prosthetic Surgery Electron (more content not included)... Normal [facility] C Urineon 05-15-2019 C Urine Final Report: No growth Normal [facility] Comment on above: Performed By: #### 2 [id number] #### [facility] [employer] [address] [place] [address] BMPon 05-13-2019 Anion gap [Moles/Vol] 14 mmol/L Normal 10-20 [facility] Comment on above: Performed By: #### 2 [id number] #### [place] [employer] [facility] [place] [address] Calcium [Mass/Vol] 9.3 mg/dL Normal 8.6-10.3 [facility] Comment on above: Performed By: #### 2 [id number] #### [employer] [address] [place] [address] Chloride [Moles/Vol] 102 mmol/L Normal 98-107 [facility] Comment on above: Performed By: #### 2 189963 #### [employer] [address] [place] [address] CO2 [Moles/Vol] 24.0 mmol/L Normal 21.0-32.0 [facility] Comment on above: Performed By: #### 2 195078 #### [employer] [address] [place] [address] Creatinine [Mass/Vol] 1.1 mg/dL Normal 0.5-1.3 [facility] Comment on above: Performed By: #### 2 [id number] #### [employer] [address] [place] [address] Glucose [Mass/Vol] 121 mg/dL High 70-99 [facility] Comment on above: Performed By: #### 2 540314 #### [employer] [address] [place] [address] Potassium [Moles/Vol] 3.3 mmol/L Low 3.5-5.3 [facility] Comment on above: Performed By: #### 2 096811 #### [employer] [address] [place] [address] Sodium [Moles/Vol] 136 mmol/L Normal 136-145 [facility] Comment on above: Performed By: #### 2 [id number] #### [employer] [address] [place] [address] Urea nitrogen [Mass/Vol] 11 mg/dL Normal 6-23 [facility] Comment on above: Performed By: #### 2 [id number] #### [employer] [address] [place] [address] Urea nitrogen/Creatinine [Mass ratio] 10.0 ratio Normal 5.4-30.0 [facility] Comment on above: Performed By: #### 2 [id number] #### [facility] [employer] [address] [place] [address] CBC w/ Auto Diffon 9 Erythrocyte distribution width (RBC) [Ratio] 12.8 % Normal 11.5-14.5 [facility] Comment on above: Performed By: #### 2 977136 #### [facility] [employer] [address] [place] [address] Hematocrit (Bld) [Volume fraction] 45.0 % Normal 42.0-52.0 [facility] Comment on above: Performed By: #### 2 500199 #### [employer] [address] [place] [address] Hemoglobin (Bld) [Mass/Vol] 15.3 g/dL Normal 13.5-18.0 [facility] Comment on above: Performed By: #### 2 [id number] #### [facility] [employer] [address] [place] [address] MCH (RBC) [Entitic mass] 29.3 pg Normal 27.0-31.0 [facility] Comment on above: Performed By: #### 2 [id number] #### [facility] [employer] [facility] [place] [address] MCHC (RBC) [Mass/Vol] 34.1 g/dL Normal 33.0-37.0 [facility] Comment on above: Performed By: #### 2 [id number] #### [employer] [employer] [address] [place] [address] MCV (RBC) [Entitic vol] 86.0 fL Normal 78.0-100.0 [facility] Comment on above: Performed By: #### 2 728177 #### [facility] [employer] [address] [place] [address] Platelet mean volume (Bld) [Entitic vol] 7.6 fL Normal 7.4-11.0 [facility] Comment on above: Performed By: #### 2 [id number] #### [facility] [employer] [address] [place] [address] Platelets (Bld) [#/Vol] 176 E3/mcL Normal 130-400 [facility] Comment on above: Performed By: #### 2 [id number] #### [facility] [employer] [facility] [place] [address] RBC (Bld) [#/Vol] 5.23 E6/mcL Normal 3.90-6.10 [facility] Comment on above: Performed By: #### 2 [id number] #### [facility] [employer] [address] [place] [address] WBC (Bld) [#/Vol] 9.7 E3/mcL Normal 3.6-11.0 [facility] Comment on above: Performed By: #### 2 637016 #### [place] [address] CT Abdomen/Pelvis w/o Dwayne davis 05-13-2019 CT Abdomen/Pelvis w/o Contrast Exam Date/Time: 05/13/2019 16:02 EDT Reason for Exam: kidney stone vs discitis;Other (please specify) Report STUDY: CT Abdomen/Pelvis w/o Contrast; 05/13/2019 4:02 pm INDICATION: Low back pain COMPARISON: None. ACCESSION NUMBER(S): [id number] ORDERING CLINICIAN: Oscar Sidhu TECHNIQUE: Contiguous 3 mm thick axial images were obtained through the abdomen and pelvis without intravenous contrast. FINDINGS: Evaluation of solid and hollow viscera is significantly limited secondary to lack of intravenous contrast. LIVER: Grossly unremarkable on this non-contrast study. BILE DUCTS: Nondilated. GALLBLADDER: No evidence of calcified gallstones or wall thickening. PANCREAS: Grossly unremarkable on this non-contrast study. SPLEEN: Grossly unremarkable on this non-contrast study. ADRENALS: Grossly unremarkable on this non-contrast study. KIDNEYS, URETERS, URINARY BLADDER: No evidence of obstructing renal or ureteral calculi. Urinary bladder is unremarkable. BOWEL: No evidence of abnormal dilatation or obstruction of the small or large bowel. No evidence of pneumoperitoneum. Intact appendix is identified. REPRODUCTIVE ORGANS: Prostate is within normal limits of size. PERITONEUM / RETROPERITONEUM / LYMPH NODES: No evidence of any free fluid. No evidence of any significantly enlarged intra-abdominal or pelvic lymph nodes. Exam Date/Time: 05/13/2019 16:02 EDT Report ABDOMINAL WALL: Small midline fat containing umbilical hernia. Small fat containing left inguinal hernia. LOWER CHEST: Lung bases are unremarkable without evidence of focal pulmonary consolidation, pleural effusion, or pneumothorax. BONES: No evidence of suspicious lytic or blastic osseous lesions. Mild degenerative changes are seen in the lumbar spine, most prominent at L4-L5. IMPRESSION: 1. No noncontrast CT evidence of acute intra-abdominal or pelvic pathology. Specifically, no evidence of obstructing renal or ureteral calculi. FINAL REPORT Dictated: 05/13/2019 4:11 pm Olegario Cross MD Signed (Electronic Signature): 05/13/2019 4:11 pm Signed by: Olegario Cross MD Technologist: [facility] MRI Spine Lumbar w/ + w/o Co ntraston 05-13-2019 MRI Spine Lumbar w/ + w/o Contrast Exam Date/Time: 05/13/2019 20:08 EDT Reason for Exam: discitis;Other (please specify) Report STUDY: MRI Spine Lumbar w/ + w/o Contrast; 05/13/2019 8:08 pm INDICATION: Low back pain. COMPARISON: CT abdomen pelvis 05/13/2019 ACCESSION NUMBER(S): [id number] ORDERING CLINICIAN: Oscar Sidhu TECHNIQUE: Multiplanar multisequence MR imaging of the lumbar spine was obtained without and with 20 mL MultiHance IV contrast.. FINDINGS: Image quality is moderately degraded by motion artifact, specifically on the axial sequences. Alignment: Straightening of the normal lordotic curvature of the lumbar spine. Trace retrolisthesis L4 on L5. Bones: Modic type endplate changes at L4/L5, with otherwise preserved marrow signal. No acute loss of vertebral body height. Cord: The conus terminates at L1/L2. Normal cord and cauda signal Disc spaces: Narrowing is most pronounced at L4/L5 with narrowing to a lesser degree also seen at L2/L3. The prevertebral and posterior paraspinous soft tissues are unremarkable. No abnormal enhancement is seen on post-contrast imaging. T11/T12 is only seen on sagittal sequences without canal stenosis or foraminal narrowing T12/L1: Facet arthropathy with ligamentum flavum thickening. No canal stenosis or foraminal narrowing L1/L2: Facet arthropathy with ligamentum flavum thickening. No canal stenosis or foraminal narrowing Exam Date/Time: 05/13/2019 20:08 EDT Report L2/3: Broad-based bulge with facet arthropathy and ligamentum flavum thickening. There is mild flattening of the ventral sac. Mild narrowing along the inferior aspect of the neural foramen bilaterally L3/L4: Broad-based bulge, facet arthropathy and ligamentum flavum thickening. Mild flattening of the ventral thecal sac with mild foraminal narrowing bilaterally L4/L5: Broad bulge with a superimposed central disc protrusion, facet arthropathy and ligamentum flavum thickening. There is moderate flattening of the thecal. There is moderate left and moderate to severe right foraminal narrowing L5/S1: Central disc protrusion and facet arthropathy with only minimal flattening of the ventral sac and mild foraminal narrowing bilaterally. IMPRESSION: Multilevel, multifactorial degenerative changes throughout the lumbar spine as described above. Findings are most pronounced at L4/L5 where there is moderate flattening of the thecal sac along with moderate left and moderate to severe right foraminal narrowing No abnormal enhancement throughout the lumbar spine on post-contrast imaging. FINAL REPORT Dictated: 05/13/2019 9:54 pm Dave Escalera MD Signed (Electronic Signature): 05/13/2019 9:54 pm Signed by: Dave Escalera MD Technologist: ANETTE Normal [facility] Manual Diffon 05-13-2019 Band form neutrophils/100 WBC (Bld) 1 Normal 0-1 [facility] Comment on above: Order Comment: Order Added by Discern Expert. Performed By: #### 2 [id number] #### ORALIA [facility] [address] [place] [address] Basophil Man 0 % Normal 0-1 [facility] Comment on above: Order Comment: Order Added by Discern Expert. Performed By: #### 2 [id number] #### ORALIA [facility] [address] [place] [address] Eosinophils/100 WBC (Bld) 0 % Normal 0-5 [facility] Comment on above: Order Comment: Order Added by Discern Expert. Performed By: #### 2 [id number] #### ORALIA [facility] [address] [place] [address] Lymphocytes/100 WBC (Bld) 3 % Low 14-48 [facility] Comment on above: Order Comment: Order Added by Discern Expert. Performed By: #### 2 [id number] #### ORALIA [facility] [address] [place] [address] Monocyte Man 2 % Normal 1-11 [facility] Comment on above: Order Comment: Order Added by Discern Expert. Performed By: #### 2 [id number] #### ORALIA [facility] [address] [place] [address] RBC morphology finding Nom (Bld) NORMAL Normal [facility] Comment on above: Order Comment: Order Added by Discern Expert. Performed By: #### 2 [id number] #### ORALIA [facility] [address] [place] [address] Segs Man 94 % High 37-75 [facility] Comment on above: Order Comment: Order Added by Discern Expert. Performed By: #### 2 [id number] #### ORALIA [facility] [address] [place] [address] UA Completeon 05-13-2019 Color (U) Yellow Normal Yellow [facility] Comment on above: Order Comment: Strai ght Cath as needed Performed By: #### 8 [id number] #### ORALIA Urinalysis Automated Subsection [facility] [place] [id number] Glucose (U) [Mass/Vol] Negative Normal Negative [facility] Comment on above: Order Comment: Strai ght Cath as needed Performed By: #### 8 [id number] #### ORALIA Urinalysis Automated Subsection [address] [place] [address] Ketones Ql (U) Negative Normal Negative [facility] Comment on above: Order Comment: Strai ght Cath as needed Performed By: #### 8 [id number] #### ORALIA Urinalysis Automated Subsection [facility] [place] [address] RBC (U) [#/Vol] 0-3 Normal 0-3 [facility] Comment on above: Order Comment: Strai ght Cath as needed Performed By: #### 8 [id number] #### ORALIA Urinalysis Automated Subsection [facility] [place] [address] UA Blood 1+ Abnormal Negative [facility] Comment on above: Order Comment: Strai ght Cath as needed Performed By: #### 8 [id number] #### ORALIA Urinalysis Automated Subsection [facility] [place] [address] UA Clarity SltCloudy Abnormal Clear [facility] Comment on above: Order Comment: Strai ght Cath as needed Performed By: #### 8 [id number] #### ORALIA Urinalysis Automated Subsection [address] [place] [id number] UA Leuk Est Negative Normal Negative [facility] Comment on above: Order Comment: Strai ght Cath as needed Performed By: #### 8 [id number] #### ORALIA Urinalysis Automated Subsection [facility] [place] [address] UA Nitrite Negative Normal Negative [facility] Comment on above: Order Comment: Strai ght Cath as needed Performed By: #### 8 [id number] #### ORALIA Urinalysis Automated Subsection [address] [place] [address] UA pH 6.0 Normal 4.6-8.0 [facility] Comment on above: Order Comment: Strai ght Cath as needed Performed By: #### 8 [id number] #### ORALIA Urinalysis Automated Subsection [address] [place] [address] UA Protein Negative Normal Negative [facility] Comment on above: Order Comment: Strai ght Cath as needed Performed By: #### 8 [id number] #### ORALIA Urinalysis Automated Subsection [address] [place] [address] UA Spec Grav 1.009 Normal 1.003-1.030 [facility] Comment on above: Order Comment: Strai ght Cath as needed Performed By: #### 8 [id number] #### ORALIA Urinalysis Automated Subsection [address] [place] [address] UA Urobilinogen Negative Normal [facility] Comment on above: Order Comment: Strai ght Cath as needed Result Comment: Due to a manufacturing issue, low positive urobilinogen results may be fasely positive. Correlate with urine bilirubin and additional clinical/laboratory findings to assess the risk of hemolytic anemia or liver disease. If clinically indicated, repeat testing with an alternate method is available by contacting the laboratory within 24 hours. Performed By: #### 8 [id number] #### ORALIA Urinalysis Automated Subsection [address] [place] [address] UA WBC 0-5 Normal 0-5 [facility] Comment on above: Order Comment: Strai ght Cath as needed Performed By: #### 8 [id number] #### ORALIA Urinalysis Automated Subsection [address] [place] [address] Urobilinogen Qn (U) Negative Normal Negative [facility] Comment on above: Order Comment: Strai ght Cath as needed Performed By: #### 8 [id number] #### ORALIA Urinalysis Automated Subsection [address] [place] [address] XR Chest Single Viewon 05-13 XR Chest Single View Exam Date/Time: 05/13/2019 14:43 EDT Reason for Exam: Shortness of breath (SOB) Report STUDY: XR Chest Single View; 05/13/2019 2:43 pm INDICATION: Shortness of breath (SOB). COMPARISON: None. ACCESSION NUMBER(S): [id number] ORDERING CLINICIAN: Oscar Sidhu FINDINGS: BONY STRUCTURES: Ribs: Appear intact. Thoracic spine: No acute findings. LUNGS AND CHEST: The visualized lung is clear. There is no evidence of complication from trauma such as pulmonary contusion, pneumothorax or hydro pneumothorax. Cardiac size: Within normal limits considering technique. Aortic shadow: Within normal limits considering technique. Mediastinal contours: Within normal limits considering technique. Pulmonary vasculature: Within normal limits without definite congestion. ABDOMEN AND OTHER FINDINGS: None. IMPRESSION: 1. Unremarkable ribs. FINAL REPORT Dictated: 05/13/2019 2:54 pm Judah Beauchamp MD Signed (Electronic Signature): 05/13/2019 2:54 pm Signed by: Judah Beauchamp MD Technologist: [facility] eGFRon 05-13-2019 GFR/1.73 sq M predicted among non-blacks MDRD (S/P/Bld) [Vol rate/Area] mL/min/{1.73_m2} Normal [facility] Comment on above: Order Comment: Order added by Discern Expert. Performed By: #### 1 [id number] #### ORALIA [facility] [address] [place] [address] zzplt morphon 05-13-2019 Platelet morphology finding Nom (Bld) NORMAL Normal [facility] Comment on above: Performed By: #### 9 [id number] #### ORALIA [facility] [address] [place] [address] Platelets (Bld) [#/Vol] NORMAL Normal [facility] Comment on above: Performed By: #### 9 [id number] #### ORALIA [facility] [address] [place] [address] Vital Signs Date Time Vital Sign Value Performing Clinician Facility 02-09-2025 16:59-0400 Body temperature 98 [degF] Dr. Rogelio Colvin MD Work Phone: 1(129)759-985854 [place] [address] 02-09-2025 16:59-0400 Diastolic blood pressure 94 mm[Hg] Dr. Rogelio Colvin MD Work Phone: 7(509)040-001623 [place] [address] 02-09-2025 16:59-0400 Heart rate 72 /min Dr. Rogelio Colvin MD Work Phone: 8(007)954-108654 [place] [address] 02-09-2025 16:59-0400 Respiratory rate 15 /min Dr. Rogelio Colvin MD Work Phone: 6(426)307-841554 [place] [address] 02-09-2025 16:59-0400 SaO2% (BldA) [Mass fraction] 97 % Dr. Rogelio Colvin MD Work Phone: 7(330)984-420754 [place] [address] 02-09-2025 16:59-0400 Systolic blood pressure 130 mm[Hg] Dr. Rogelio Colvin MD Work Phone: 2(659)759-858854 [place] [address] 02-09-2025 13:08-0400 Body height 188.[address] Rogelio Colvin MD Work Phone: 9(595)808-672254 [place] [address] 02-09-2025 13:08-0400 Body mass index (BMI) [Ratio] 32.7 kg/m2 Dr. Rogelio Colvin MD Work Phone: 4(820)195-518254 [place] [address] 02-09-2025 13:08-0400 Body weight 115.[address] Rogelio Colvin MD Work Phone: 8(712)306-395354 [place] [address] 02-03-2025 09:53-0400 Body height 188.[address] Rogelio Colvin MD Work Phone: 6(772)102-806154 [place] [address] 02-03-2025 09:53-0400 Body mass index (BMI) [Ratio] 33 kg/m2 Dr. Rogelio Colvin MD Work Phone: 4(917)792-579854 [place] [address] 02-03-2025 09:53-0400 Body weight 117.[address] Rogelio Colvin MD Work Phone: 8(123)581-458154 [place] [address] 01-27-2025 13:43-0400 Body temperature 98 [degF] Dr. Rogelio Colvin MD Work Phone: 8(138)482-096954 [place] [address] 01-27-2025 13:43-0400 Body weight 115.[address] Rogelio Colvin MD Work Phone: [facility] 01-27-2025 13:43-0400 Diastolic blood pressure 91 mm[Hg] Dr. Rogelio Colvin MD Work Phone: [facility] 01-27-2025 13:43-0400 Heart rate 95 /min Dr. Rogelio Colvin MD Work Phone: [facility] 01-27-2025 13:43-0400 Respiratory rate 16 /min Dr. Rogelio Colvin MD Work Phone: [facility] 01-27-2025 13:43-0400 SaO2% (BldA) [Mass fraction] 98 % Dr. Rogelio Colvin MD Work Phone: [facility] 01-27-2025 13:43-0400 Systolic blood pressure 136 mm[Hg] Dr. Rogelio Colvin MD Work Phone: [facility] 01-20-2025 14:39-0400 Body temperature 98.2 [degF] Dr. Rogelio Colvin MD Work Phone: [facility] 01-20-2025 14:39-0400 Diastolic blood pressure 96 mm[Hg] Dr. Rogelio Colvin MD Work Phone: [facility] 01-20-2025 14:39-0400 Heart rate 85 /min Dr. Rogelio Colvin MD Work Phone: [facility] 01-20-2025 14:39-0400 Respiratory rate 17 /min Dr. Rogelio Colvin MD Work Phone: [facility] 01-20-2025 14:39-0400 SaO2% (BldA) [Mass fraction] 93 % Dr. Rogelio Colvin MD Work Phone: [facility] 01-20-2025 14:39-0400 Systolic blood pressure 147 mm[Hg] Dr. Rogelio Colvin MD Work Phone: [facility] 01-19-2025 17:45-0400 Inhaled oxygen flow rate 4 L/min Dr. Rogelio Colvin MD Work Phone: [facility] 01-19-2025 16:09-0400 Body height 188.[address] Rogelio Colvin MD Work Phone: 1(779)438-957523 [place] [address] 01-19-2025 16:09-0400 Body mass index (BMI) [Ratio] 32.7 kg/m2 Dr. Rogelio Colvin MD Work Phone: 5(064)610-488223 [place] [address] 01-19-2025 16:09-0400 Body weight 115.[address] Rogelio Colvin MD Work Phone: 3(639)532-650323 [place] [address] 01-14-2025 10:56-0500 Body weight 114.[address] Rogelio Colvin MD Work Phone: 7(270)831-502823 [place] [address] 01-13-2025 13:20-0500 Body mass index (BMI) [Ratio] 32.5 kg/m2 Dr. Rogelio Colvin MD Work Phone: 8(312)546-476423 [place] [address] 01-02-2025 10:47-0500 Body temperature 98.4 [degF] Dr. Rogelio Colvin MD Work Phone: 7(247)306-590323 [place] [address] 01-02-2025 10:47-0500 Body weight 114.[address] Rogelio Colvin MD Work Phone: 7(936)059-396048 [address] 01-02-2025 10:47-0500 Diastolic blood pressure 87 mm[Hg] Dr. Rogelio Colvin MD Work Phone: 0(999)390-664823 [place] [address] 01-02-2025 10:47-0500 Heart rate 85 /min Dr. Rogelio Colvin MD Work Phone: [facility] 01-02-2025 10:47-0500 Respiratory rate 16 /min Dr. Rogelio Colvin MD Work Phone: 9(451)860-282223 [place] [address] 01-02-2025 10:47-0500 SaO2% (BldA) [Mass fraction] 98 % Dr. Rogelio Colvin MD Work Phone: [facility] 01-02-2025 10:47-0500 Systolic blood pressure 132 mm[Hg] Dr. Rogelio Colvin MD Work Phone: [facility] 11-04-2024 02:15-0500 Body temperature 98.6 [degF] Dr. Rogelio Colvin MD Work Phone: [facility] 11-04-2024 02:15-0500 Diastolic blood pressure 93 mm[Hg] Dr. Rogelio Colvin MD Work Phone: [facility] 11-04-2024 02:15-0500 Heart rate 100 /min Dr. Rogelio Colvin MD Work Phone: [facility] 11-04-2024 02:15-0500 Respiratory rate 18 /min Dr. Rogelio Colvin MD Work Phone: [facility] 11-04-2024 02:15-0500 SaO2% (BldA) [Mass fraction] 95 % Dr. Rogelio Colvin MD Work Phone: [facility] 11-04-2024 02:15-0500 Systolic blood pressure 160 mm[Hg] Dr. Rogelio Colvin MD Work Phone: [facility] 11-03-2024 23:51-0500 Body mass index (BMI) [Ratio] 27.2 kg/m2 Dr. Rogelio Colvin MD Work Phone: [facility] 11-03-2024 23:51-0500 Body weight 96.[address] Rogelio Colvin MD Work Phone: [facility] 10-18-2024 23:18-0500 Body temperature 97.59 [degF] Mendy Tyler DO Work Phone: [facility] 10-18-2024 23:18-0500 Diastolic blood pressure 108 mm[Hg] Mendy Tyler DO Work Phone: [facility] 10-18-2024 23:18-0500 Heart rate 79 /min Mendy Tyler DO Work Phone: [facility] 10-18-2024 23:18-0500 Respiratory rate 16 /min Mendy Tyler DO Work Phone: [facility] 10-18-2024 23:18-0500 SaO2% (BldA) [Mass fraction] 97 % Mendy Tyler DO Work Phone: [facility] 10-18-2024 23:18-0500 Systolic blood pressure 150 mm[Hg] Mendy Tyler DO Work Phone: 4(271)405-785381 [place] [address] 10-18-2024 20:31-0500 Body height 188 cm Mendy Tyler DO Work Phone: 0(866)921-867281 [place] [address] 10-18-2024 20:31-0500 Body mass index (BMI) [Ratio] 32.1 kg/m2 Mendy Tyler DO Work Phone: 5(679)414-710881 [place] [address] 10-18-2024 20:31-0500 Body weight 113.4 kg Mendy Tyler DO Work Phone: 4(472)868-870281 [place] [address] 10-16-2023 11:51-0500 Body temperature 98.2 [degF] Dr. Rogelio Colvin Work Phone: [facility] 10-16-2023 11:51-0500 Body weight 113.[address] Rogelio Colvin Work Phone: [facility] 10-16-2023 11:51-0500 Diastolic blood pressure 81 mm[Hg] Dr. Rogelio Colvin Work Phone: [facility] 10-16-2023 11:51-0500 Heart rate 81 /min Dr. Rogelio Colvin Work Phone: [facility] 10-16-2023 11:51-0500 Respiratory rate 16 /min Dr. Rogelio Colvin Work Phone: [facility] 10-16-2023 11:51-0500 SaO2% (BldA) [Mass fraction] 97 % Dr. Rogelio Colvin Work Phone: [facility] 10-16-2023 11:51-0500 Systolic blood pressure 127 mm[Hg] Dr. Rogelio Colvin Work Phone: [facility] 05-20-2023 20:09-0400 Respiratory rate 18 /min Dr. Rogelio Colvin Work Phone: [facility] 05-20-2023 18:02-0400 Body height 187.[address] Rogelio Colvin Work Phone: [facility] 05-20-2023 18:02-0400 Body mass index (BMI) [Ratio] 29.6 kg/m2 Dr. Rogelio Colvin Work Phone: [facility] 05-20-2023 18:02-0400 Body temperature 96.8 [degF] Dr. Rogelio Colvin Work Phone: 7(080)598-630823 [place] [address] 05-20-2023 18:02-0400 Body weight 104.[address] Rogelio Colvin Work Phone: 9(179)634-543223 [place] [address] 05-20-2023 18:02-0400 Diastolic blood pressure 64 mm[Hg] Dr. Rogelio Colvin Work Phone: [facility] 05-20-2023 18:02-0400 Heart rate 78 /min Dr. Rogelio Colvin Work Phone: 4(541)200-365523 [place] [address] 05-20-2023 18:02-0400 SaO2% (BldA) [Mass fraction] 99 % Dr. Rogelio Colvin Work Phone: 0(494)272-083523 [place] [address] 05-20-2023 18:02-0400 Systolic blood pressure 139 mm[Hg] Dr. Rogelio Colvin Work Phone: [facility] 05-02-2023 10:38-0400 Body temperature 98.2 [degF] Dr. Rogelio Colvin Work Phone: [facility] 05-02-2023 10:38-0400 Body weight 106.[address] Rogelio Colvin Work Phone: [facility] 05-02-2023 10:38-0400 Diastolic blood pressure 90 mm[Hg] Dr. Rogelio Colvin Work Phone: [facility] 06-21-2023 10:38-0400 Heart rate 80 /min Dr. Rogelio Colvin Work Phone: [facility] 05-02-2023 10:38-0400 Respiratory rate 16 /min Dr. Rogelio Colvin Work Phone: [facility] 05-02-2023 10:38-0400 SaO2% (BldA) [Mass fraction] 96 % Dr. Rogelio Colvin Work Phone: [facility] 05-02-2023 10:38-0400 Systolic blood pressure 137 mm[Hg] Dr. Rogelio Colvin Work Phone: [facility] 04-17-2023 08:54-0400 Body height 187.[address] Rogelio Colvin Work Phone: [facility] 04-17-2023 08:54-0400 Body weight 105.[address] Rogelio Colvin Work Phone: [facility] 04-17-2023 08:02-0400 Body mass index (BMI) [Ratio] 29.7 kg/m2 Dr. Rogelio Colvin Work Phone: [facility] 04-06-2023 21:31-0400 Body mass index (BMI) [Ratio] 32.3 kg/m2 Dr. Rogelio Colvin Work Phone: [facility] 04-06-2023 21:31-0400 Body weight 108.[address] Rogelio Colvin Work Phone: [facility] 04-06-2023 21:23-0400 Body height 182.[address] Rogelio Colvin Work Phone: [facility] 04-06-2023 21:23-0400 Body temperature 98 [degF] Dr. Rogelio Colvin Work Phone: [facility] 04-06-2023 21:23-0400 Diastolic blood pressure 112 mm[Hg] Dr. Rogelio Colvin Work Phone: [facility] 04-06-2023 21:23-0400 Heart rate 86 /min Dr. Rogelio Colvin Work Phone: [facility] 04-06-2023 21:23-0400 Respiratory rate 16 /min Dr. Rogelio Colvin Work Phone: [facility] 04-06-2023 21:23-0400 SaO2% (BldA) [Mass fraction] 98 % Dr. Rogelio Colvin Work Phone: [facility] 04-06-2023 21:23-0400 Systolic blood pressure 143 mm[Hg] Dr. Rogelio Colvin Work Phone: [facility] 03-26-2023 14:39-0400 Body weight 105.[address] Rogelio Colvin Work Phone: [facility] 03-26-2023 14:39-0400 Diastolic blood pressure 82 mm[Hg] Dr. Rogelio Colvin Work Phone: [facility] 03-26-2023 14:39-0400 Heart rate 64 /min Dr. Rogelio Colvin Work Phone: [facility] 03-26-2023 14:39-0400 Respiratory rate 16 /min Dr. Rogelio Colvin Work Phone: [facility] 03-26-2023 14:39-0400 SaO2% (BldA) [Mass fraction] 99 % Dr. Rogelio Colvin Work Phone: [facility] 03-26-2023 14:39-0400 Systolic blood pressure 129 mm[Hg] Dr. Rogelio Colvin Work Phone: [facility] 02-13-2023 14:21-0400 Diastolic blood pressure 76 mm[Hg] Dr. Rogelio Colvin Work Phone: [facility] 02-13-2023 14:21-0400 Heart rate 91 /min Dr. Rogelio Colvin Work Phone: [facility] 02-13-2023 14:21-0400 SaO2% (BldA) [Mass fraction] 97 % Dr. Rogelio Colvin Work Phone: [facility] 02-13-2023 14:21-0400 Systolic blood pressure 122 mm[Hg] Dr. Rogelio Colvin Work Phone: [facility] 01-25-2023 11:07-0400 Body height 188.[address] Rogelio Colvin Work Phone: [facility] 01-17-2023 08:28-0500 Body temperature 99.1 [degF] Dr. Rogelio Colvin Work Phone: [facility] 01-17-2023 08:28-0500 Body weight 108.[address] Rogelio Colvin Work Phone: [facility] 01-17-2023 08:28-0500 Diastolic blood pressure 93 mm[Hg] Dr. Rogelio Colvin Work Phone: [facility] 01-17-2023 08:28-0500 Heart rate 80 /min Dr. Rogelio Colvin Work Phone: [facility] 01-17-2023 08:28-0500 Respiratory rate 18 /min Dr. Rogelio Colvin Work Phone: [facility] 01-17-2023 08:28-0500 SaO2% (BldA) [Mass fraction] 99 % Dr. Rogelio Colvin Work Phone: [facility] 01-17-2023 08:28-0500 Systolic blood pressure 134 mm[Hg] Dr. Rogelio Colvin Work Phone: [facility] 01-11-2023 17:00-0500 Respiratory rate 18 /min Dr. Rogelio Colvin Work Phone: [facility] 01-11-2023 15:40-0500 SaO2% (BldA) [Mass fraction] 97 % Dr. Rogelio Colvin Work Phone: [facility] 01-11-2023 15:31-0500 Diastolic blood pressure 94 mm[Hg] Dr. Rogelio Colvin Work Phone: [facility] 01-11-2023 15:31-0500 Systolic blood pressure 138 mm[Hg] Dr. Rogelio Colvin Work Phone: [facility] 01-11-2023 15:10-0500 Heart rate 72 /min Dr. Rogelio Colvin Work Phone: [facility] 01-11-2023 14:00-0500 Body height 188.[address] Rogelio Colvin Work Phone: [facility] 01-11-2023 14:00-0500 Body mass index (BMI) [Ratio] 29.5 kg/m2 Dr. Rogelio Colvin Work Phone: [facility] 01-11-2023 14:00-0500 Body temperature 95.9 [degF] Dr. Rogelio Colvin Work Phone: [facility] 01-11-2023 14:00-0500 Body weight 104.[address] Rogelio Colvin Work Phone: [facility] 01-11-2023 09:51-0500 Body temperature 98.5 [degF] Dr. Rogelio Colvin Work Phone: [facility] 01-11-2023 09:51-0500 Diastolic blood pressure 87 mm[Hg] Dr. Rogelio Colvin Work Phone: [facility] 01-11-2023 09:51-0500 Heart rate 79 /min Dr. Rogelio Colvin Work Phone: [facility] 01-11-2023 09:51-0500 Respiratory rate 14 /min Dr. Rogelio Colvin Work Phone: [facility] 01-11-2023 09:51-0500 SaO2% (BldA) [Mass fraction] 98 % Dr. Rogelio Colvin Work Phone: [facility] 01-11-2023 09:51-0500 Systolic blood pressure 135 mm[Hg] Dr. Rogelio Colvin Work Phone: [facility] 01-10-2023 10:18-0500 Body height 187.[address] Rogelio Colvin Work Phone: [facility] 01-10-2023 10:18-0500 Body weight [address] Rogelio Colvin Work Phone: [facility] 01-09-2023 15:22-0500 Body mass index (BMI) [Ratio] 29.7 kg/m2 Dr. Rogelio Colvin Work Phone: [facility] 01-04-2023 14:36-0500 Body temperature 97.8 [degF] Dr. Rogelio Colvin Work Phone: [facility] 01-04-2023 14:36-0500 Body weight 105.[address] Rogelio Colvin Work Phone: [facility] 01-04-2023 14:36-0500 Diastolic blood pressure 97 mm[Hg] Dr. Rogelio Colvin Work Phone: [facility] 01-04-2023 14:36-0500 Heart rate 110 /min Dr. Rogelio Colvin Work Phone: [facility] 01-04-2023 14:36-0500 Respiratory rate 18 /min Dr. Rogelio Colvin Work Phone: [facility] 01-04-2023 14:36-0500 Systolic blood pressure 141 mm[Hg] Dr. Rogelio Colvin Work Phone: [facility] 01-04-2023 09:22-0500 Body height 187.[address] Rogelio Colvin Work Phone: [facility] 01-04-2023 09:22-0500 Body mass index (BMI) [Ratio] 30 kg/m2 Dr. Rogelio Colvin Work Phone: [facility] 01-04-2023 09:22-0500 Body weight 106.[address] Rogelio Colvin Work Phone: [facility] 12-31-2022 22:06-0500 Diastolic blood pressure 102 mm[Hg] Dr. Rogelio Colvin Work Phone: [facility] 12-31-2022 22:06-0500 Heart rate 80 /min Dr. Rogelio Colvin Work Phone: [facility] 12-31-2022 22:06-0500 Respiratory rate 16 /min Dr. Rogelio Colvin Work Phone: 7(705)417-018923 [place] [address] 12-31-2022 22:06-0500 SaO2% (BldA) [Mass fraction] 98 % Dr. Rogelio Colvin Work Phone: 3(661)057-289023 [place] [address] 12-31-2022 22:06-0500 Systolic blood pressure 143 mm[Hg] Dr. Rogelio Colvin Work Phone: 1(602)790-044054 [place] [address] 12-31-2022 17:48-0500 Body height 187.[address] Rogelio Colvin Work Phone: 9(481)705-834954 [place] [address] 12-31-2022 17:48-0500 Body mass index (BMI) [Ratio] 32.1 kg/m2 Dr. Rogelio Colvin Work Phone: 2(208)542-279854 [place] [address] 12-31-2022 17:48-0500 Body temperature 98.4 [degF] Dr. Rogelio Colvin Work Phone: 7(686)319-575123 [place] [address] 12-31-2022 17:48-0500 Body weight 113.[address] Rogelio Colvin Work Phone: 4(047)440-757754 [place] [address] 12-07-2022 08:20-0500 Body temperature 98 [degF] Dr. Rogelio Colvin Work Phone: 3(115)055-065654 [place] [address] 12-07-2022 08:20-0500 Diastolic blood pressure 72 mm[Hg] Dr. Rogelio Colvin Work Phone: 7(566)189-295023 [place] [address] 12-07-2022 08:20-0500 Heart rate 61 /min Dr. Rogelio Colvin Work Phone: 2(420)487-388223 [place] [address] 12-07-2022 08:20-0500 Respiratory rate 16 /min Dr. Rogelio Colvin Work Phone: 0(501)436-066254 [place] [address] 12-07-2022 08:20-0500 SaO2% (BldA) [Mass fraction] 95 % Dr. Rogelio Colvin Work Phone: 8(697)508-080823 [place] [address] 12-07-2022 08:20-0500 Systolic blood pressure 133 mm[Hg] Dr. Rogelio Colvin Work Phone: [facility] 12-06-2022 12:36-0500 Body height 188.[address] Rogelio Colvin Work Phone: [facility] 12-06-2022 12:36-0500 Body mass index (BMI) [Ratio] 32.5 kg/m2 Dr. Rogelio Colvin Work Phone: [facility] 12-06-2022 12:36-0500 Body weight 115.[address] Rogelio Colvin Work Phone: [facility] 12-06-2022 09:01-0500 Body temperature 98.1 [degF] [facility] 12-06-2022 09:01-0500 Diastolic blood pressure 68 mm[Hg] [facility] 12-06-2022 09:01-0500 Heart rate 64 /min [facility] 12-06-2022 09:01-0500 Respiratory rate 18 /min [facility] 12-06-2022 09:01-0500 SaO2% (BldA) [Mass fraction] 96 % [facility] 12-06-2022 09:01-0500 Systolic blood pressure 128 mm[Hg] [facility] 12-06-2022 04:16-0500 Body height 187.96 cm [facility] 12-06-2022 04:16-0500 Body mass index (BMI) [Ratio] 32.6 kg/m2 [facility] 12-06-2022 04:16-0500 Body weight 115.3 kg [facility] Encounters Encounter Date Encounter Type Care Provider Facility Start: 03-20-2025 End: 03-20-2025 ambulatory Dung Aguirre Facility:[facility] Start: 03-10-2025 End: 03-10-2025 ambulatory Rogelio Colvin Facility:[facility] Start: 03-09-2025 End: 03-09-2025 ambulatory Nadia Brandt Facility:[facility] Start: 03-02-2025 ambulatory Bryn Mccall [facility] Start: 03-02-2025 End: 03-04-2025 Evaluation and management of inpatient Bryn Mccall Facility:[facility] Start: 02-16-2025 End: 02-16-2025 ambulatory Bryn Elmhurst [facility] Start: 02-09-[facility] Start: 02-09-2025 End: 02-09-2025 Emergency department patient visit Dr. Rogelio Colvin MD Work Phone: -Emergency Department Work Phone: Start: 02-03-2025 End: 02-03-2025 Patient encounter procedure Nadia JULES -[facility] Work Phone: Start: 02-03-2025 End: 02-03-2025 ambulatory Nadia Brandt Facility:[facility] Start: 01-27-2025 End: 01-27-2025 Patient encounter procedure Teena JULES [facility] Vascular Surgery Work Phone: Start: 01-27-2025 End: 01-27-[address] Rogelio Colvin MD Work Phone: [facility] Work Phone: Start: 01-27-2025 End: 01-27-2025 ambulatory Teena Jacques Facility:[facility] Start: 01-20-2025 Non-patient / Non-visit Teena JULES -[facility] Start: 01-19-2025 End: 01-20-2025 ambulatory Bryn Stefany Facility:[facility] Start: 01-19-2025 End: 01-20-2025 Evaluation and management of inpatient Dr. Bryn Mccall MD -Progressive Care Unit Work Phone: Start: 01-19-2025 End: 01-20-[address] Rogelio Colvin MD Work Phone: [facility] Work Phone: Start: 01-19-2025 ambulatory Bryn Mccall [facility] Start: 01-19-2025 Non-patient / Non-visit Dr. Bryn herrera MD -[facility] Start: 01-14-2025 ambulatory Bryn Stefany [facility] Start: 01-14-2025 Non-patient / Non-visit Dr. Bryn herrera MD -[facility] Start: 01-14-2025 End: 01-14-2025 Admission to same day surgery center Dr. 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 Bryn herrera MD -[facility] Start: 12-12-2024 End: 12-12-[address] Rogelio Colvin MD -Cardiovascular Services Work Phone: Start: 12-12-2024 End: 12-12-2024 ambulatory Rogelio Chi Vinicius Facility:[facility] Start: 11-24-2024 ambulatory Rogelio Chi Vinicius [facility] Start: 11-24-2024 Non-patient / Non-visit Dr. Bryn herrera MD -[facility] Start: 11-24-2024 End: 11-24-[address] Bryn Mccall MD -Cardiovascular Services Work Phone: Start: 11-24-2024 End: 11-24-2024 ambulatory Rogelio Chi Vinicius Facility:[facility] Start: 11-03-2024 End: 11-04-2024 Emergency department patient visit Dr. Isrrael Garrett DO -Emergency Department Work Phone: Start: 10-18-2024 End: 10-18-2024 Emergency department patient visit Mendy Tyler DO Work Phone: [facility] Emergency Medicine Comment on above: Lumbar strain, initi al encounter (Primary Dx) Start: 09-18-2024 End: 09-18-2024 ambulatory Rogelio Chi Vinicius Facility:[facility] Start: 05-02-2024 ambulatory Rogelio Chi Vinicius [facility] Start: 05-02-2024 End: 05-02-2024 ambulatory Rogelio [facility] Facility:[facility] Start: 04-29-2024 End: 04-29-2024 Emergency department patient visit [facility] Facility:[facility] Start: 04-17-2024 End: 04-17-2024 ambulatory Rogelio [facility] Facility[facility] Start: 10-16-2023 End: 10-16-[address] Rogelio Colvin Work Phone: [facility] Work Phone: Start: 10-16-2023 End: 10-16-[address] Rogelio Colvin Work Phone: [facility] Vascular Surgery Work Phone: Start: 08-15-2023 Non-patient / Non-visit [facility] Zachariah [facility] Start: 08-15-2023 End: 08-15-[address] [facility] Start: 05-20-2023 End: 05-20-2023 Emergency department patient visit Dr. Rogelio Colvin Work Phone: [facility]-Emergency Department Work Phone: Start: 05-02-2023 End: 05-02-[address] Rogelio Colvin Work Phone: [facility] Work Phone: Start: 05-02-2023 End: 05-02-[address] Rogelio Colvin Work Phone: [facility] Vascular Surgery Start: 04-17-2023 Non-patient / Non-visit Dr. Zachariah Colvin Work Phone: [facility] Start: 04-17-2023 End: 04-17-2023 Admission to same day surgery center Dr. Rogelio Colvin Work Phone: [facility]-Mathematics Improvement Teacher/Special Procedures Start: 04-17-2023 End: 04-17-[address] Rogelio Colvin Work Phone: [facility] Work Phone: Start: 04-06-2023 End: 04-06-2023 Emergency department patient visit Dr. Rogelio Colvin Work Phone: [facility]-Emergency Department Start: 04-04-2023 Non-patient / Non-visit Dr. Zachariah Colvin Work Phone: [facility] Start: 04-04-2023 End: 04-04-[address] Rogelio Colvin Work Phone: [facility] Work Phone: Start: 04-04-2023 End: 04-04-[address] Rogelio Colvin Work Phone: [facility]-Cardiovascular Services Start: 03-26-2023 End: 03-26-[address] Rogelio Colvin Work Phone: [facility] Start: 03-21-2023 Non-patient / Non-visit Dr. Zachariah Colvin Work Phone: [facility] Start: 03-21-2023 End: 03-21-[address] Rogelio Colvin Work Phone: [facility] Work Phone: Start: 03-21-2023 End: 03-21-[address] Rogelio Colvin Work Phone: [facility]-Cardiovascular Services Start: 03-06-2023 End: 03-06-[address] Rogelio Colvin Work Phone: [facility] Work Phone: Start: 03-06-2023 End: 03-06-[address] Rogelio Colvin Work Phone: [facility]-Pulmonary Services/Neurology Start: 02-13-2023 End: 02-13-[address] Rogelio Colvin Work Phone: [facility] Start: 01-31-2023 End: 01-31-[address] Rogelio Colvin Work Phone: [facility] Start: 01-17-2023 End: 01-17-[address] Rogelio Colvin Work Phone: [facility] Start: 01-17-2023 End: 01-17-[address] Rogelio Colvin Work Phone: [facility] Work Phone: Start: 01-17-2023 End: 01-17-[address] Rogelio Colvin Work Phone: [facility] Start: 01-11-2023 End: 01-11-2023 Emergency department patient visit Dr. Rogelio Colvin Work Phone: [facility]-Emergency Department Start: 01-11-2023 Non-patient / Non-visit Dr. Zachariah Colvin Work Phone: [facility] Start: 01-10-2023 Non-patient / Non-visit Dr. Zachariah Colvin Work Phone: [facility] Start: 01-10-2023 End: 01-10-2023 Non-patient / Non-visit Dr. Rogelio Colvin Work Phone: [facility] Start: 01-09-2023 Non-patient / Non-visit Dr. Zachariah Colvin Work Phone: [facility] Start: 01-09-2023 End: 01-11-2023 Evaluation and management of inpatient Dr. Rogelio Colvin Work Phone: [facility]-Progressive Care Unit Start: 01-04-2023 End: 01-04-[address] Rogelio Colvin Work Phone: [facility] Start: 01-04-2023 End: 01-04-[address] Rogelio Colvin Work Phone: [facility] Start: 01-01-2023 Non-patient / Non-visit Dr. Zachariah Colvin Work Phone: [facility] Start: 01-01-2023 End: 01-01-[address] Rogelio Colvin Work Phone: [facility] Work Phone: Start: 01-01-2023 End: 01-01-[address] Rogelio Colvin Work Phone: [facility]-Cardiovascular Services Start: 12-31-2022 End: 12-31-2022 Emergency department patient visit Dr. Rogelio Colvin Work Phone: [facility]-Emergency Department Start: 12-07-2022 Non-patient / Non-visit Dr. Zachariah Colvin Work Phone: [facility] Start: 12-06-2022 Non-patient / Non-visit Dr. Zachariah Colvin Work Phone: [facility] Start: 12-06-2022 End: 12-07-2022 Evaluation and management of inpatient [facility]-Medical Surgical 3 Start: 12-06-2022 End: 12-07-[address] Rogelio Colvin Work Phone: [facility] Work Phone: Start: 12-04-2022 End: 12-04-2022 Emergency department patient visit DR CJ LEIVA [facility] Procedures Date Procedure Procedure Detail Performing Clinician Start: 02-03-2025 X-ray of lumbosacral spine Dr. Rogelio Colvin MD Work Phone: Start: 01-02-2025 X-ray of lumbar spin e, two or three views Dr. Rogelio Colvin MD Work Phone: Start: 11-24-2024 Plain x-ray of pelvi s and lower extremity Dr. Rogelio Colvin MD Work Phone: Start: 11-04-2024 SARS-CoV-2, Influenz a & RSV (PCR) Dr. Rogelio Colvin MD Work Phone: Start: 11-04-2024 Computed tomography of abdomen and pelvis with intravenous contrast Dr. Rogelio Colvin MD Work Phone: Start: 10-18-2024 Ct lumbar spine w/o contrast material Mendy Tyler DO Work Phone: Start: 05-20-2023 Diagnostic radiograp hy of finger Dr. Rogelio Colvin Work Phone: Start: 04-06-2023 CT of head without contrast Dr. Rogelio Colvin Work Phone: Start: 03-06-2023 Influenza Types A,B Direct FA (JAMIE) Dr. Rogelio Colvin Work Phone: Start: 03-06-2023 Respiratory syncytia l virus antigen assay Dr. Rogelio Colvin Work Phone: Start: 01-17-2023 MRI of lumbar spine Dr. Rogelio Colvin Work Phone: Start: 01-11-2023 Computed tomography of abdomen and pelvis with intravenous contrast Dr. Rogelio Colvin Work Phone: Start: 01-11-2023 CT angiography of ch est with contrast Dr. Rogelio Colvin Work Phone: Start: 01-04-2023 X-ray of lumbar spin e, two or three views Dr. Rogelio Colvin Work Phone: Plan of Treatment Date Care Activity Detail Author Start: 05-20-2033 DTaP/Tdap/Td Vaccines (2 - Td or Tdap) DTaP/Tdap/Td Vaccines (2 - Td or Tdap) [facility] Start: 02-09-2025 [facility] Start: 01-27-2025 Patient referral [facility] Work Phone: Start: 01-20-2025 Patient discharge [facility] Start: 01-19-2025 Following clinical pathway protocol [facility] Start: 01-19-2025 [facility] Start: 01-19-2025 Ambulation without limitation [facility] Start: 01-19-2025 Assessment of risk of venous thromboembolism [facility] Start: 01-19-2025 Bedrest [facility] Start: 01-19-2025 Incentive spirometry [facility] Start: 01-19-2025 Insertion of catheter into peripheral vein [facility] Start: 01-19-2025 Measuring intake and output [facility] Start: 01-19-2025 Notification of physician [facility] Start: 01-19-2025 Oxygen therapy [facility] Start: 01-19-2025 Providing care according to standard [facility] Start: 01-19-2025 Provision of activity privileges [facility] Start: 01-19-2025 Pulse taking [facility] Start: 01-19-2025 Taking patient vital signs [facility] Start: 01-19-2025 End: 01-19-2025 [facility] Start: 01-19-2025 Admission procedure [facility] Start: 01-19-2025 Removal of thrombus Thrombectomy (Not Applicable) [facility] Start: 01-14-2025 Patient discharge [facility] Start: 01-02-2025 Patient referral [facility] Work Phone: Start: 11-04-2024 [facility] Start: 07-13-2024 COVID-19 Vaccine () COVID-19 Vaccine () [facility] Start: 07-13-2024 Influenza vaccination Influenza Vaccine (#1) [facility] Start: 2023 Zoster Vaccines (1 of 2) Zoster Vaccines (1 of 2) [facility] Start: 01-11-2023 Patient discharge [facility] Start: 01-10-2023 Notification of physician [facility] Start: 01-10-2023 Provision of activity privileges [facility] Start: 01-10-2023 Taking patient vital signs [facility] Start: 01-10-2023 Vascular disease risk assessment [facility] Start: 01-10-2023 [facility] Start: 01-09-2023 Following clinical pathway protocol [facility] Start: 01-09-2023 Admission procedure [facility] Start: 01-09-2023 Ambulation without limitation [facility] Start: 01-09-2023 Assessment of risk of venous thromboembolism [facility] Start: 01-09-2023 Insertion of catheter into peripheral vein [facility] Start: 01-09-2023 Measuring intake and output [facility] Start: 01-09-2023 Providing care according to standard [facility] Start: 01-09-2023 [facility] Start: 01-09-2023 Patient referral to dietitian [facility] Start: 12-31-2022 US.doppler Lower extremity vein [facility] Start: 12-07-2022 Patient discharge [facility] Start: 12-06-2022 Following clinical pathway protocol [facility] Start: 12-06-2022 Chart related administrative procedure [facility] Start: 12-06-2022 Ambulation without limitation [facility] Start: 12-06-2022 Assessment of risk of venous thromboembolism [facility] Start: 12-06-2022 Incentive spirometry [facility] Start: 12-06-2022 Insertion of catheter into peripheral vein [facility] Start: 12-06-2022 Measuring intake and output [facility] Start: 12-06-2022 Oxygen therapy [facility] Start: 12-06-2022 Providing care according to standard [facility] Start: 12-06-2022 Provision of activity privileges [facility] Start: 12-06-2022 Referral to occupational therapist [facility] Start: 12-06-2022 Referral to service [facility] Start: 12-06-2022 [facility] Start: 12-06-2022 Verification routine [facility] Start: 12-06-2022 Admission procedure [facility] Start: 1991 Hepatitis C screening Hepatitis C Screening [facility] Start: 1974 MMR Vaccines (1 of 1 - Standard series) MMR Vaccines (1 of 1 - Standard series) [facility] Start: 1973 HIV screening HIV Screening [facility] Start: 1973 Lipid panel Lipid Panel [facility] Start: 1973 Screening for malignant neoplasm of colon [facility] Start: 1973 Yearly Adult Physical Yearly Adult Physical [facility] Bilirubin measuremen t, urine [facility] Doppler ultrasonogra phy of aorta [facility] Doppler ultrasonogra phy of aorta [facility] Hemoglobin [Presence ] in Urine [facility] Measurement of keton es in urine using dipstick [facility] Microscopic urinalysis [facility] MR Lumbar spine [facility] MR Lumbar spine [facility] Patient Education [facility] Work Phone: Patient referral [facility] Work Phone: pH of Urine [facility] Specific gravity of Urine [facility] Urinalysis, blood, qualitative [facility] Urine dipstick for glucose [facility] Urine dipstick for leukocyte esterase [facility] Urine dipstick for nitrite [facility] Urine dipstick for protein [facility] Urine examination [facility] Urine microscopy: epithelial cells [facility] Urine Microscopy: wh ite cells [facility] Urobilinogen [Presen ce] in Urine [facility] US.doppler Lower ext remity vein [facility] US.doppler Lower ext remity vessels [facility] US.doppler Lower ext remity vessels [facility] Immunizations Immunization Date Immunization Notes Care Provider Fa jose 05-20-2023 tetanus toxoid, redu jose cruz diphtheria toxoid, and acellular pertussis vaccine, adsorbed Dr. Rogelio Colvin Work Phone: [facility] 09-29-2020 influenza virus vaccine, unspecified formulation Mendy Tyler DO Work Phone: [facility] Work Phone: Payers Date Payer Category Payer Legal Liability / Liability Insurance ACCIDENT RELATED NON-MEDICARE [id number] 2023 Self-pay [id number] 2022 Unknown [id number] 1973 Unknown [id number] .[id number]. 651 1973 Unknown [id number] .0.1.127419.3.579.2. 1243 Private Health Insurance [employer] [id number] Unknown [id number] 2.0.1.756385.3.579.2. 462 Unknown [id number] 2.0.1.888761.3.579.2. 462 Unknown [id number] 2.840.1.500668.3.579.2. 462 Unknown [id number] 2.16840.1.983360.3.579.2. 462 Unknown [id number] 2.0.1.110077.3.579.2. 462 Unknown [id number] 2.16.840.1.953550.3.579.2. 462 Unknown [id number] 2.16.840.1.325059.3.579.2. 462 Unknown [id number] 2.16.840.1.183716.3.579.2. 462 Unknown [id number] 2.16.840.1.975486.3.579.2. 462 Unknown [id number] 2.16.840.1.273632.3.579.2. 462 Unknown [id number] 2.16.840.1.503507.3.579.2. 462 Unknown [id number] 2.16.840.1.993903.3.579.2. 462 Unknown [id number] 2.16.840.1.301074.3.579.2. 462 Unknown [id number] 2.16.840.1.204420.3.579.2. 462 Unknown [id number] 2.16.840.1.932251.3.579.2. 462 Unknown [id number] 2.16.840.1.279515.3.579.2. 462 Unknown [id number] 2.16.840.1.093713.3.579.2. 462 Unknown [id number] 2.16.840.1.652442.3.579.2. 462 Unknown [id number] 2.16.840.1.346640.3.579.2. 462 Unknown [id number] 2.16.840.1.770685.3.579.2. 462 Unknown [id number] 2.16.840.1.789099.3.579.2. 462 Unknown [id number] 2.16.840.1.540078.3.579.2. 462 Unknown [id number] 2.16.840.1.080796.3.579.2. 462 Unknown [id number] 2.16.840.1.990728.3.579.2. 462 Unknown [id number] 2.16.840.1.227197.3.579.2. 462 Unknown [id number] 2.16.840.1.891804.3.579.2. 462 Unknown [id number] 2.16.840.1.094033.3.579.2. 462 Unknown [id number] 2.16.840.1.688286.3.579.2. 462 Unknown [id number] Unknown [id number] Unknown [id number] Social History Date Type Detail Facility Start: 12-06-2022 End: 10-18-2023 Tobacco smoking status MTIS Unknown if ever smoked [facility] Start: 1975 Sex Assigned At Male W [facility] Start: 1975 Sex assigned at Not on file [facility] Work Phone: Gender identity Not on file [facility] Work Phone: Start: 10-08-2024 End: 10-18-2024 Exposure to SARS-CoV-2 (event) Not sure [facility] Start: 01-19-2025 End: 02-09-2025 Tobacco smoking status NHIS Ex-smoker (finding) [facility] Start: 01-20-2025 End: 02-09-2025 Sex Male (finding) [facility] Medical Equipment Procedure Code Equipment Code Equipment Origin al Text Equipment Identifier Dates Iliofemoral vein stent ()[id number] [id number] FDA Start: 01-10-2023 Iliofemoral vein stent ()[id number] [id number] FDA Start: 01-10-2023 Iliofemoral vein stent ()[id number] [id number] FDA Start: 01-10-2023 Iliofemoral vein stent ()[id number] [id number] FDA Start: 01-10-2023 Goals Date Patient Goal Desired Activity /State Functional Status Date Assessment Result Facility 01-20-2025 Functional status Ambulates [facility] Work Phone: 01-11-2023 Functional status Activity Ability Indepe ndent [facility] Work Phone: 01-11-2023 Functional status Patient Activity Up ad rony [facility] Work Phone: 12-07-2022 Functional status Activity Ability Bedres t [facility] Work Phone: 12-06-2022 Functional status Patient Activity Bedres [facility] Work Phone: Mental Status Date Assessment Result Facility 01-20-2025 Cognitive function Voice/Name [facility] Work Phone: 01-19-2025 Cognitive function Voice/Name [facility] Work Phone: 01-11-2023 Cognitive function Level Of Cons ciousness Awake;Appropriate;Follows Commands;Drowsy [facility] Work Phone: 01-11-2023 Cognitive function Voice/Name [facility] Work Phone: Clinical Notes 06-13-2021 to 03-04-2025 Note Date & Type Note Facility 03-04-2025 Note [facility] Medical Records Department [address] [place] [address] Discharge Summary 03/04/25 0811 MR#: [id number] Acct: [id number] Name: DELTA CHEEK Jr. Rep #: [id number] : 1975 49 From: Teena JULES PCP: Dr. Rogelio Colvin MD Status:DIS IN [facility] Prov[facility] Date of Admission: 03/02/25 Primary Care Physician: Dr. 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 Cheek this morning. He endorsed his chronic back pain and expected discomfort at the groin access site, otherwise no complaints. Methocarbamol and increased oxycodone were effective overnight. No bleeding/ecchymosis/focal edema at the access sites. Medications at Discharge Home Medications paroxetine HCl 20 mg tablet 1 tablet PO DAILY 02/13/23 valsartan 160 mg-hydrochlorothiazide 12.5 mg tablet 1 tablet PO DAILY 02/13/23 aspirin 81 mg tablet,delayed release 81 mg PO QDAY 01/02/25 enoxaparin 120 mg/0.8 mL subcutaneous syringe (Lovenox) 120 mg (0.8 mL) subcut Q12H 30 days #48 mL 01/20/25 acetaminophen 500 mg tablet 1,000 mg (2 x 500 mg) PO Q8 #0 tabs 03/04/25 docusate sodium 100 mg capsule 100 mg PO BID PRN PRN Constipation #0 caps 03/04/25 methocarbamol 750 mg tablet 1,000 mg (1.3333 x 750 mg) PO Q6H PRN PRN Muscle Spasm 7 days #28 tabs 03/04/25 oxycodone 5 mg tablet 5 - 10 mg (1 - 2 x 5 mg) PO Q8H PRN PRN Pain Score 4-10 7 days #42 tabs 03/04/25 Hospital Course Summary of Care Provided Hospital Course: Mr. Delta Cheek is a 49 y/o male who was admitted 03/02/25 for heparin bridge to planned venogram with left iliac vein angioplasty performed on 03/03/25. Post-procedure he was returned to PCU for heparin bridge back to lovenox. He tolerated the procedure well. He had no adverse bleeding on therapeutic heparin. He was transitioned back to lovenox and stable for discharge to his home today 03/04/25 with planned office followup in 1-2 weeks for suture removal. Physical Exam Const oriented x3 and no apparent distress Resp normal respiratory effort Cardio regular rate and regular rhythm Extremity Extremity Narrative: R groin access site with pressure dressing intact, dried drainage within prior outline, no new drainage; no focal edema or ecchymosis, soft to palpation L groin access site with pressure dressing C/D/I; no focal edema or ecchymosis, soft to palpation Bilateral pedal pulses palpable Skin no rashes or lesions noted Weight / BMI Weight Weight: 252 lb 6.868 oz Body Mass Index (BMI) 32.3 ABG / Lab / Microbiology Data 03/03/25 06:35 03/03/25 06:35 Laboratory: Laboratory Results - last 24 hr 03/03/25 16:25: APTT 49.4 H 03/03/25 22:20: APTT 44.6 H 03/04/25 05:05: APTT 63.9 H D/C Instructions Discharge Diet: No restrictions May shower in (days): 1 Weight Bearing Status: Weight bearing as tolerated Lifting Restricted to (Lbs): 20 Lifting Restrictions: Do not lift greater than 20 pounds for 3 weeks Call your doctor if your incision/area has: Sudden Increased Bleeding, Increased Pain/ Swelling and Foul Smelling Discharge Call your doctor if you observe: Fever of 101 or Higher and Uncontrolled pain Remove Dressing in: 1 day Additional Dressing/Incision Instructions: Do not submerge the groin access sites such as to take a bath for 3 weeks DC O2, CPAP, BIPAP Needs Home O2 Discharge instructions: No Please Follow Up With: Teena Jacques PA When: 1-2 weeks for suture removal Meaningful Use Info Meaningful Use Meaningful Use Diagnoses (Choose all that apply): None applicable Ischemic Stroke Statin Dosing Therapy Reference: STATIN DOSE THERAPY REFERENCE: * Patients > 75 years receive moderate or high dose statin therapy. * Patients 75 years or YOUNGER should receive HIGH intensity statin dose unless contraindicated. You will be required to document reason for non-treatment if statin daily dose does not meet guidelines. HIGH DOSE STATIN THERAPY DAILY Atorvastatin > than or = to 40 mg Rosuvastatin > than or = to 20 mg Amlodipine + Atorvastatin > than or = to 2.5/40 mg Ezetimibe + Simvastatin 10/80 mg Simvastatin 80mg Discharge Plan Admission Admit Date/Time: 03/02/25 16:32 Attending Provider: Bryn Mccall Primary Care Provider: Rogelio Colvin Chi Discharge Orders/Prescriptions Prescriptions: New acetaminophen 500 mg Tablet 1,000 mg PO Q8 Qty: 0 0RF docusate sodium 100 mg Capsule 100 mg PO BID PRN PRN (Reason: Constipation) Q (more content not included)... [facility] 03-02-2025 Note [facility] Medical Records Department [address] [place] [address] History Physical Exam 03/02/25 1747 MR#: [id number] Acct: [id number] Name: DELTA CHEEK Jr. Rep #: [id number] : 1975 49 From: Bryn Mccall MD PCP: Dr. Rogelio Colvin MD Status:ADM IN Location: [place] [address] HPI - General General Date of Admission: 03/02/25 HPI Narrative DELTA CHEEK, is a 49 M who presents with prior extensive DVTs that required thrombectomy and iliac vein stenting. Later suffered stent thrombosis that was treated with thrombectomy with some residual thrombus within stent remaining. Presents now for heparin bridge for venogram to assess for thrombus resolution vs further intervention. [facility] Medical History Wears glasses Marijuana use History of steroid therapy Arthritis Chewing tobacco nicotine dependence in remission History of pain when walking Hx of edema Hx of cardiovascular stress test DDD (degenerative disc disease), lumbar DVT (deep venous thrombosis) RSD lower limb HNP (herniated nucleus pulposus), lumbar Hypertension Hypertension Home Medications ???Medication ???Instructions ???Recorded ???Last Taken ???Type paroxetine HCl 20 mg tablet 1 tablet PO DAILY 02/13/23 5 History valsartan 160 1 tablet PO DAILY 02/13/23 5 History mg-hydrochlorothiazide 12.5 mg tablet aspirin 81 mg tablet,delayed 81 mg PO QDAY 01/02/25 01/18/25 Hi story release enoxaparin 120 mg/0.8 mL 120 mg (0.8 mL) subcut Q12H 30 10/06 Unknown Rx subcutaneous syringe (Lovenox) days #48 mL Allergy/AdvReac Type Severity Reaction Status Date / Time No Known Allergies Allergy Verified 03/02/25 16:28 Family History Father CVA (cerebral vascular accident) Father Heart disease Other Bleeding disorder CAD (coronary artery disease) Hypertension Surgical History Hx of hernia repair History of femoral hernia repair Social History Smoking Status: Former smoker Smokeless tobacco user: chewing tobacco how long ago did patient quit smokin can every 4-5 days alcohol intake: never ROS Constitutional Constitutional: Denies chills, fever(s), frequent falls, lethargy or weakness Eyes Eyes: Denies blind spots, change in vision or loss of vision ENT HEENT: Denies bleeding gums, hoarseness or sore throat Cardiovascular Cardiovascular: Reports leg edema; Denies abdominal pain, bluish discoloration of hand/feet, chest pain with activity, claudication, cold extremities, cyanosis, dyspnea on exertion, erythema on extremities, irregular heart rhythm, leg ulcers, numbness in extremities or weakness in extremities Respiratory/Chest Respiratory/Chest: Denies cough, excessive phlegm production, shortness of breath at rest, shortness of breath with exertion or wheezing Gastrointestinal Gastrointestinal: Denies anorexia, change in stool character, constipation, diarrhea, melena or rectal bleeding Genitourinary Genitourinary: Denies dysuria or hematuria Musculoskeletal Musculoskeletal: Reports back pain; Denies abnormal gait Integumentary Integumentary: Reports other Details: ; Denies erythema, non-healing lesions or wounds Neurologic Neurologic: Denies abnormal speech, focal weakness, headache(s), loss of vision, numbness, paresthesias or sensory deficit Hematologic/Lymphatic Hematologic/Lymphatic: Denies easy bleeding, easy bruising or lymphadenopathy Vital Signs Vital Signs Vital Signs: 03/02/25 16:36 Temperature 98.2 F Temperature Source Oral Pulse Rate 76 Respiratory Rate 16 Blood Pressure 161/94 H Blood Pressure Mean 116 Blood Pressure Source Monitor Blood Pressure Position Semi-Fowlers Blood Pressure Location Left Forearm Pulse Ox 99 Oxygen Delivery Method Room Air Weight Weight: 252 lb 6.868 oz Body Mass Index (BMI) 32.3 Physical Exam Const alert, oriented x3, no apparent distress and healthy appearing General Appearance: cooperative; Negative for combative or lethargic Orientation / Consciousness: awake Exam Limitations: no limitations HEENT Head and Scalp: normocephalic and atraumatic Eyes EOMs intact bilaterally General Eye: normal appearance of both eyes Neck full ROM General: trachea midline Resp normal respiratory effort and no use of accessory muscles Effort and Inspection: Negative for labored, stridor or audible wheezes Cardio regular rate and regular rhythm Back/Spine Cervical Spine: cervical ROM normal Extremity full ROM, normal capillary refill and no clubbing, cyanosis or edema Skin no rashes or lesions no (more content not included)... [facility] 01-20-2025 Consult note Note Date/Time January 20, 2025 1:27pm [facility] Medical Records Department [address] [place] [address] Anesthesia Postop Eval II 01/19/25 1517 MR#: [id number] Acct: [id number] Name: DELTA CHEEK JrChristine Rep #:[id number] : 1975 49 From: Joseph Segura MD PCP: Dr. 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 Anesthesia Postop Eval I: Fluid Summary Crystalloid volume administer 900 01/19/25 13:44 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 [email or web address] (ml) Colloids volume administered ( ml) Blood Product volume administered (ml) Total IV fluid infused 900 01/19/25 13:44 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 [email or web address] Anesthesia Postop Eval I: Summary Notes Anesthesia Complication No 01/19/25 13:44 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 Anesthesia Complication Comment: Post-operative progress note Anesthesia: Postop Eval II Evaluation Mental status: Awake Pain Level: 1 nausea: No Vomiting: No 01/19/257 <Electronically signed by Joseph Segura MD > Date _ Joseph Croninsan [facility] Signature: Date CC: ~ Signed [facility] Work Phone: 1(588) 285-410503-11-2025 Consult note [facility] Medical Records Department [address] [place] [address] Anesthesia Postop Eval II 01/19/25 1517 MR#: [id number] Acct: [id number] Name: DELTA CHEEK Rep #:[id number] : 1975 49 From: Joseph Segura MD PCP: Dr. 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 Anesthesia Postop Eval I: Fluid Summary Crystalloid volume administer 900 01/19/25 13:44 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 [email or web address].LMIL (ml) Colloids volume administered ( ml) Blood Product volume administered (ml) Total IV fluid infused 900 01/19/25 13:44 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 [email or web address].LMIL Anesthesia Postop Eval I: Summary Notes Anesthesia Complication No 01/19/25 13:44 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 [email or web address] Anesthesia Complication Comment: Post-operative progress note Anesthesia: Postop Eval II Evaluation Mental status: Awake Pain Level: 1 nausea: No Vomiting: No 01/19/25 1517 > Date _ Joseph Miller Signature: Date CC: ~ Signed [facility]03-11-2025 [facility] Medical Records Department [address] [place] [address] Discharge Summary 01/20/25 1319 MR#: [id number] Acct: [id number] Name: DELTA CHEEK Jr. Rep #: [id number] : 1975 49 From: Teena JULES PCP: Dr. Rogelio Colvin MD Status:DIS TATUM Location: [place] [address] Providers Date of Admission: 01/19/25 Primary Care Physician: Dr. Rogelio Colvin MD Reason For Visit: Acute embolism and thrombosis of unspecified iliac Medications at Discharge Home Medications paroxetine HCl 20 mg tablet 1 tablet PO DAILY 02/13/23 valsartan 160 mg-hydrochlorothiazide 12.5 mg tablet 1 tablet PO DAILY 02/13/23 aspirin 81 mg tablet,delayed release 81 mg PO QDAY 01/02/25 enoxaparin 120 mg/0.8 mL subcutaneous syringe (Lovenox) 120 mg (0.8 mL) subcut Q12H 30 days #48 mL 01/15/25 benzonatate 100 mg capsule 100 mg PO TID PRN PRN Cough 14 days #42 caps 01/20/25 oxycodone 5 mg tablet 5 mg PO Q6H PRN PRN Pain Score 4-10 4 days #16 tabs 01/20/25 Hospital Course Summary of Care Provided Hospital Course: Mr. Delta Cheek is a 49 y/o male who underwent planed venogram with Percutaneous mechanical thrombectomy of the left external iliac vein, common iliac vein, inferior vena cava and Angioplasty left common iliac vein, external iliac vein, right common iliac vein on 01/19/25; access was obtained via the R IJ and L femoral vein. He tolerated the procedure well, he was admitted to the PCU for heparin bridge and observation. He has had discomfort and swelling at the R IJ access site, exacerbated by his cough but stable overnight. The pain is well-managed with oxycodone. He did not sleep well and still feels a bit groggy but otherwise no complaints. He was transitioned from heparin to lovenox for discharge. He is discharged home is stable condition with planned follow-up in the office in 2 weeks. Physical Exam Const oriented x3 and no apparent distress Neck Neck Narrative: R IJ access site with stable ecchymosis, stable diffuse edema, soft to palpation Resp normal respiratory effort Cardio regular rate and regular rhythm Extremity Extremity Narrative: L groin puncture site with dry dressing C/D/I. No hematoma, minimal ecchymosis Skin no wounds Trauma: no lacerations or abrasions Weight / BMI Weight Weight: 255 lb Body Mass Index (BMI) 32.7 ABG / Lab / Microbiology Data 01/20/25 08:01 01/20/25 08:01 Laboratory: Laboratory Results - last 24 hr 01/19/25 19:12: APTT 31.8 01/20/25 01:47: APTT 33.8 01/20/25 08:01: WBC 10.9, RBC 3.99 L, Hgb 11.9 L, Hct 35.5 L, MCV 89.0, MCH 29.8, MCHC 33.5, RDW Std Deviation 41.7, RDW Coeff of Alejo 12.7, Plt Count 172, MPV 8.9, Immature Gran % (Auto) 0.500, Neut % (Auto) 82.2 H, Lymph % (Auto) 9.9 L, [place] % (Auto) 7.2, Eos % (Auto) 0.0, Baso % (Auto) 0.2, A bsolute Neuts (auto) 9.0 H, Absolute Lymphs (auto) 1.08, Nucleated RBC % 0, APTT 35.8, Sodium 135, Potassium 3.7, Chloride 103, Carbon Dioxide 22.5, Anion Gap 10, BUN 16, Creatinine 0.95, Estim Creat Clear Calc 124.37, Est GFR (MDRD) Non-Af 97, BUN/Creatinine Ratio 16.7, Glucose 115 H, Calcium 8.5 D/C Instructions Discharge Diet: No restrictions May shower in (days): 1 Weight Bearing Status: Weight bearing as tolerated Lifting Restricted to (Lbs): 20 Lifting Restrictions: Do not lift greater than 20 pounds for 3 weeks Call your doctor if your incision/area has: Sudden Increased Bleeding, Increased Pain/ Swelling and Foul Smelling Discharge Call your doctor if you observe: Fever of 101 or Higher and Uncontrolled pain Remove Dressing in: 1 day DC O2, CPAP, BIPAP Needs Home O2 Discharge instructions: No Please Follow Up With: Teena Jacques PA When: 2 weeks Meaningful Use Info Meaningful Use Meaningful Use Diagnoses (Choose all that apply): None applicable Ischemic Stroke Statin Dosing Therapy Reference: STATIN DOSE THERAPY REFERENCE: * Patients > 75 years receive moderate or high dose statin therapy. * Patients 75 years or YOUNGER should receive HIGH intensity statin dose unless contraindicated. You will be required to document reason for non-treatment if statin daily dose does not meet guidelines. HIGH DOSE STATIN THERAPY DAILY Atorvastatin > than or = to 40 mg Rosuvastatin > than or = to 20 mg Amlodipine + Atorvastatin > than or = to 2.5/40 mg Ezetimibe + Simvastatin 10/80 mg Simvastatin 80mg Discharge Plan Admission Admit Date/Time: 01/19/25 13:06 Attending Provider: Bryn Mccall Primary Care Provider: Rogelio Colvin Chi Discharge Orders/Prescriptions Prescriptions: New benzonatate 100 mg Capsule 100 mg PO TID PRN PRN (Reason: Cough) 14 Days Qty: 42 0RF oxycodone 5 mg Tablet 5 mg PO Q6H PRN PRN (Reason: Pain Score 4-10) 4 Days Qty: 16 0RF Continued paroxetine HCl 20 mg tablet 1 tablet PO DAILY (more content not included)...[facility]03-10-2025 Procedure note [facility] Medical Records Department [address] [place] [address] Operative Report 01/19/25 1642 MR#: [id number] Acct: [id number] Name: DELTA CHEEK Jr. Rep #:[id number] : 1975 49 From: Bryn Mccall MD PCP: Dr. Rogelio Colvin MD Status:ADM I NO Location: [place] [address] 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 Post-Operative Diagnosis: Same Surgery/Procedure Performed: Venogram inferior vena cava Intravascular ultrasound left external and common iliac vein, inferior vena cava Percutaneous mechanical thrombectomy of the left external iliac vein, common iliac vein, inferior vena cava Angioplasty left common iliac vein, external iliac vein, right common iliac vein sterile processing manager: No Type of Anesthesia: General RN Documented Start/Stop Times: Operation Date: 01/19/25 09:00 Case Time Into Pre-Op 01/19/25 07:29 Out of Pre-Op 01/19/25 08:32 Into Recovery 01/19/25 13:34 Out of Recovery 01/19/25 15:51 Procedure Start Time: 09:30 Procedure Stop Time: 13:30 Select all DRAINS/GRAFTS/IMPLANTS that apply: None Estimated Blood Loss: 100 Specimen collected: No Description of surgery: HPI: Patient is a 49-year-old male with prior history of extensive left lower extremity deep venousthrombosis who was also found to have significant iliac vein and inferior vena cava compression. Atthe time he underwent percutaneous mechanical thrombectomy and angioplasty and stenting of the inferior vena cava and bilateral common and external iliac veins. He had been doing well until in recentmonths when he had developed increasing left leg pain, tightness. Initial ultrasound imaging suggested no thrombus of the left lower extremity in the visualized portion of the stent appeared to be patent with no thrombus. He was initially taken for diagnostic venogram which revealed total occlusionof the left common iliac vein stent, nonocclusive thrombus of the left external iliac vein stent, and in-stent stenosis of the right common iliac vein stent. He is taken now for percutaneous mechanical thrombectomy. Description of procedure: Upon obtaining form consent verification correct patient procedure site patient was taken the Mathematics Improvement Teacher he was placed on general anesthesia. He was then positioned prepped and draped in usual sterile fashion time was performed. Skin overlying the right internal jugular veinwas anesthetized 1% lidocaine the vessel accessed under ultrasound guidance with a micropuncture needle wire. This then exchanged for a micropuncture sheath through which a Bentson wire is advanced into the inferior vena cava. The micropuncture sheath and exchanged for an 8 Portuguese sheath which was advanced over the wire under fluoroscopic guidance into the inferior vena cava just superior to the previously placed stents. Efforts to engage the occluded left iliac vein stent were undertaken with an angled quick cross catheter and a stiffGlidewire. Likely due to the IVC thrombus and thrombus to the proximal edge of the stent we are unable to effectively initiate crossing the occlusion. Next under ultrasound guidance the left common femoral vein was accessed with a micropuncture needle wire then exchanged for micropuncture sheath. Through thishand-injection iliofemoral angiograms performed revealing satisfactory positioning and no extravasation or dissection. Through the micropuncture sheath a Bentson wire was advanced and the micropuncture sheath exchanged for short 5 Portuguese sheath. The Bentson wire was exchanged for the straight stiff Glidewire and utilizing this in the quick cross catheter we were able to engage the inferior edge of the occlusion and successfully cross while maintaining position what appeared to be true lumen of the stent and vessel. The wire was advanced into the vena cava and a snare was advanced via the right IJ sheath staring the wire and pulling it through to the IJ sheath hub. A quick cross catheter then advanced over the wire from the IJ access externalizing over the wire through the femoral access. The glide wire was then exchanged for an Amplatz wire which was advanced through from the IJ access and externalized through the femoral access. The catheter was then withdrawn and intravascular ultrasound probe advanced over the wire and recorded pullback performed of the left external iliac vein, common iliac vein, inferior vena cava. This confirmedposition within true lumen of the stent and delineated the extent of thrombus. The patient was in heparinized allowed to circulate for 3 minutes. The 8 Frenchsheath was then exchanged for the Inari Protrieve distal protection sheath in the filter mechanism deployed. Next a Bard Malibu 10 mm x 40 angioplasty balloonwas used to predilate the entirety of the length of the total occlusion, inflatedto nominal and then deflated and repositioned to cover the entire length. Next the Inari Revcore mechanical thrombectomy device was advanced overthe wire and engaged for multiple passes across the area of total occlusion bothof the stent in the caddo vessel below the stent. After multiple passes the Inari Flowtriever aspiration device was advanced and multiple aspirations performed across the vicente atment area with aspirated blood returned after filtration. Repeat imaging revealed improved flow channel but still significantresidual thrombus within the stent and inferior to it. The revcore device was then readvanced and engaged for multiple passes over the area of residual thrombus. Afterwardsthis was again withdrawn and the aspiration device readvanced and multiple aspirations performed with blood returned after filtration. This showed significant improvement in the degree of thrombus present and intravascular ultrasound evaluation revealed this was mostly chronicvery adherent to the wall burden that was unlikely to be extracted. Next a evelyn wire was advanced via the IJ sheath and it was directed into the right iliac vein stent. A pair of Bard Malibu 16 x 40 angioplasty balloons were then advanced over each of the access wires. The left femoral angioplasty balloon was inflated tonominal for 3 minutes for multiple inflations across the entire the length of the treatment zone. In the segment of stents where there was stenosis on the right as well as within the inferior vena cava where stents wereparallel to each other the right iliac angioplasty balloon was inflated to nominal simultaneously. After completing the angioplasty of the entirety of thetreatment zones the balloons were withdrawn and repeat angiography revealed significant improvement with only minimal residualin-stent stenosis though there was some chronic thrombus inferior to the left external iliac vein stent. A Bard Malibu 14 x 40 was then advanced over the wire and positioned at this location inflated to nominal for 3 minutes then deflated and withdrawn. Repeat subtraction angiography revealed satisfactory resolution of this area of stenosis now with brisk contrast transit across all of the stentedsegments. Hewas felt that no further intervention was required and that we would refrain from stenting in the hopes that therapeutic anticoagulation would help to resolve and remodel the remaining thrombus. Wires and catheters then withdrawn. We aspirated from the IJ sheath to ensure that there wasno significant thrombus retained. A 2-0 silk pursestring was then placed at the skin and the IJ sheath withdrawn followed by 10 minutes of manual pressure until hemostasis was obtained. The left femoral vein access sheath was then withdrawn and manualpressure held for 5 minutes until hemostasis was obtained. The patient was thenawake from anesthesia taken the recovery room with dissipated observation in thePCU. Surgical Findings: See above Complications Complications: No 01/19/257 Cosigner Signature (if applicable): CC: Dr. Bryn Mccall MD; Dr. Rogelio Colvin MD~ Signed [facility]03-10-2025 Consult note Author Marie Pennington [facility] Note Date/Time January 19, 2025 1:4 4pm [facility] Medical Records Department [address] [place] [address] Anesthesia Postop Eval I 01/19/25 1343 MR#: [id number] Acct: [id number] Name: DELTA CHEEK Jr. Rep #:[id number] : 1975 49 From: Marie Pennington CRNA PCP: Dr. Rogelio Colvin MD Status:REG S DC Y Race: C Location: [place] [address] Anesthesia: Postop Eval I Current Vital Signs Temperature: 96.3 F Pulse Rate: 83 Blood Pressure: 131/88 Respiratory Rate: 20 Pulse Ox: 95 Oxygen Delivery Method: Venturi Mask Oxygen Flow Rate (L/min): 8 Assessment Airway patent: Yes Spontaneous unlabored respirations: Yes Mental status: Awake and Calm nausea: No Vomiting: No Anesthesia Complication: No Fluid Hydration Crystalloid volume administer (ml): 900 Total IV fluid infused: 900 Progress Note Anesthesia document: Postop Eval 1 completed: Yes 01/19/25 1344 <Electronically signed by Marie solano CRNA> Date _ Marie Pennington CRNA Cosigner Signature: Date CC: ~ Signed [facility] Work Phone: 1(166) 333-390103-10-2025 Consult note [facility] Medical Records Department [address] [place] [address] Anesthesia Postop Eval I 01/19/25 1343 MR#: [id number] Acct: [id number] Name: DELTA CHEEK Jr. Rep #:[id number] : 1975 49 From: Marie Pennington 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 [employer] PCP: Dr. Rogelio Colvin MD Status:REG S DC Y Race: C Location: [place] [address] Anesthesia: Postop Eval I Current Vital Signs Temperature: 96.3 F Pulse Rate: 83 Blood Pressure: 131/88 Respiratory Rate: 20 Pulse Ox: 95 Oxygen Delivery Method: Venturi Mask Oxygen Flow Rate (L/min): 8 Assessment Airway patent: Yes Spontaneous unlabored respirations: Yes Mental status: Awake and Calm nausea: No Vomiting: No Anesthesia Complication: No Fluid Hydration Crystalloid volume administer (ml): 900 Total IV fluid infused: 900 Progress Note Anesthesia document: Postop Eval 1 completed: Yes 01/19/25 1344 c 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> Date _ Marie Raymundooseangelique 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 [employer] Cosigner Signature: Date CC: ~ Signed [facility]03-10-2025 History and physical note Author Bryn Mccall [facility] Note Date/Time January 19, 2025 8:3 1am [facility] Medical Records Department [address] [place] [address] History & Physical Exam 01/19/25829 MR#: [id number] Acct: [id number] Name: DELTA CHEEK Jr. Rep #:[id number] : 1975 49 From: Bryn Mccall MD PCP: Dr. Rogelio Colvin MD Status:REG S FL Location: [place] [address] History and Physical Allergies No Known Allergies Allergy (Verified 01/02/25 10:49) Medications ?Medication ?Instructions ?Recorded ?Confirmed ?Type paroxetine HCl 20 mg tablet 1 tablet PO DAILY 02/13/23 04/17/24 Hist ory valsartan 160 1 tablet PO DAILY 02/13/23 04/17/24 Hist ory mg-hydrochlorothiazide 12.5 mg tablet aspirin 81 mg tablet,delayed 81 mg PO QDAY 01/02/25 History release Have you fallen in the past year?: No PFSH Medical History (Updated 01/06/25 @ 08:20 by JORGE A Schmitt) DDD (degenerative disc disease), lumbar DVT (deep venous thrombosis) RSD lower limb HNP (herniated nucleus pulposus), lumbar Hypertension Hypertension Surgical History History of femoral hernia repair Family History Father CVA (cerebral vascular accident)Father Heart diseaseOther Bleeding disorder CAD (coronary artery disease) Hypertension Social History Smoking Status: Never smoker Smokeless tobacco user: chewing tobacco how long ago did patient quit smokin can every 4-5 days alcohol intake: never HPI HPI HPI: DELTA CHEEK, is a 49 M who presents to the office today with increased LLE swelling and pain. He has noticed increased intermittent particularly left lower extremity edema. He notices it more on days that he is more up and active typically but not always. It does tend to improve with elevation. Initially about 4 weeks ago whenhe felt that he first started noticing it getting worse he also had pain in his proximal thigh and was very worried it was a recurrent DVT, venous duplex at that time was negative for any left lower extremity DVT and also captured his iliac stents which appeared patent. He has also felt that his skin along his legwill sometimes appear more pink/red. He also gets this aching in his left calf and left thigh. He has a lot of pain/discomfort within his hip, knee, and ankle,not necessarily worse with activity and not necessarily positional. He does havea history of significant lumbar degenerative disc disease, no recent imaging in this regard however and he is not following with orthopedic spine or pain management services. His PCP did order at that point a hip/pelvic x-ray which revealed mild osteoarthritis. His PCP also ordered a lower extremity arterial study which was normal. Venogram revealed occlusion of superior aspect of stent, subacute in appearance. ROS General General: Yes fatigue and weakness; No weight change, appetite, colon cancer or breast cancer HEENT HEENT: No difficulty swallowing, eye injury, eye surgery, swollen glands or hoarseness Endo Endocrine: No thyroid disease, diabetes mellitus, thyroid cancer, Hair loss, heat intolerance or cold intolerance Skin Skin: No rash or changing moles Musc Musculoskeletal: Yes back problems and arthritis; No rheumatoid arthritis, gout or joint pain Cardio Cardiovascular: Yes high blood pressure; No murmur, pacemaker, heart disease, atrial fibrillation, heart attack, heart stent, palpitations, shortness of breat with exertion or chest pain Psych Psychiatric: Yes anxiety; No depression or hearing voices Resp Respiratory: No shortness of breath, No sleep apnea, No cough, No COPD, No asthma, No emphysema and No wheezing Gastro Gastrointestinal: No abdominal pain, No nausea or vomiting, No diarrhea, No constipation, No blood in stool, No acid reflux, No hemorrhoids, No ulcers, No gallbladder problem and No black,tarry stools Daniel Hematologic: No blood thinners, No blood disorders, No bleeding, No anemia and No blood clots Neuro Neurologic: No system reviewed and no additional complaints, except as documented, No as per HPI, No abnormal gait, No abnormal hearing, No abnormal movements, No abnormal speech, No behavioral changes, Yes burning sensations, Noconfusion, No convulsions, No disequilibrium, No dizziness, No localized weakness, No frequent falls, No headache(s), No lack of coordination, No loss ofvision, No memory loss, Yes numbness, No other visual disturbances, Yes radicular pain, Yes restless legs, No sensory deficit, No syncope, Yes tingling,No tremor(s), Yes weakness and No other Exam Const General: cooperative, healthy appearing, comfortable, no acute distress and welldeveloped Nutritional Appearance: well nourished Orientation: alert, awake and oriented x3 HENMT Head: normocephalic and atraumatic Ears: hearing grossly normal bilaterally Nose: external nose normal Eyes General: appearance normal, both eyes and all related structures EOM: EOM intact bilaterally Neck Neck: normal visual inspection, full ROM and trachea midline Resp Effort & Inspection: normal respiratory effort, able to speak in complete sentences, symmetric chest movement, no audible wheezes, not labored, no stridorand no use of accessory muscles Cardio Rate: regular rate Rhythm: regular rhythm Skin General: no rashes or lesions noted and no erythema Wounds: no wounds Neuro Cranial Nerves: CN's II-XI intact bilaterally and EOM intact bilaterally Speech: speech normal Gait: normal gait Motor: strength 5/5 throughout Sensory Exam: no sensory deficits noted Extremities Lower Extremity Edema: Trace: Left Psych Appearance: grossly normal and well kempt Mental Status: mental status grossly normal Mood: congruent mood Speech and Movement: speech and movement normal Thought Content: normal Judgment: judgment good Coding Level of Care Code Off vis,est,level 3 Diagnoses 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 Bryn Mccall MD; Dr. Rogelio Colvin MD~ Signed [facility] Work Phone: 1(441) 118-143803-10-2025 Consult note Author Joseph Segura [facility] Note Date/Time January 19, 2025 7:4 9am [facility] Medical Records Department [address] [place] [address] Pre-Anesthesia Evaluation 01/19/25 0748 MR#: [id number] Acct: [id number] Name: DELTA CHEEK Jr. Rep #:[id number] : 1975 49 From: Joseph Segura MD PCP: Dr. Rogelio Colvin MD Status:REG S DC Y Race: C Location: [place] [address] ASA Classification* ASA Classification ASA Classification: 3 Assessment & Plan Anesthesia* Anesthesia Assessment Anesthesia Assessment: Discussed sedation and/or anesthesia options, risks, benefits, and alternatives with patient/parents/legal guardian/POA. Questions invited. The patient/parents/legal guardian/POA seems to understand and agrees to proceedwith anesthesia plan. Reviewed the physical assessment, medical history, allergy history and patient home medications list prior to surgery/procedure/anesthetic and documented any changes. Performed airway and anesthesia risk assessments. Anesthesia Type Anesthesia Type: General Anesthesia Focused Assessment* Airway Assessment Mouth opens: >3 cm Mallampati Score: II Focused Labs Anesthesia Preop lab: CBC WBC 6.2 K/mm3 (4.4-11.0) 01/14/25 10:36 01/14/25 RBC 5.24 M/mm3 (4.6-6.2) 01/14/25 10:36 01/14/25 Hgb 15.3 g/dL (13.0-16.5) 01/14/25 10:36 01/14/25 Hct 46.4 % (40-54) 01/14/25 10:36 01/14/25 Plt Count 259 K/mm3 (150-450) 01/14/25 10:36 01/14/25 CHEMISTRY Potassium 4.1 mmol/L (3.3-5.1) 01/14/25 10:36 01/14/25 Sodium 138 mmol/L (133-145) 01/14/25 10:36 01/14/25 BUN 14 mg/dL (4-19) 01/14/25 10:36 01/14/25 Creatinine 1.17 mg/dL (0.70-1.20) 01/14/25 10:36 01/14/25 Glucose 102 mg/dL (70-99) H 01/14/25 10:36 01/14/25 POC Glucose 150 mg/dL (74-106) H 01/11/23 13:58 01/11/23 TSH 1.83 uIU/mL (0.358-3.74) 05/02/24 10:55 COAG PT 17.5 SECONDS (11.7-14.9) H 01/09/23 16:31 12/14 07/04 Pre-Assessment Diagnosis/Proposed Procedure Planned Operative Procedure(s): THROMBECTOMY Anesthesia History Anesthesia History - napper runner: Anesthesia History - napper runner Hx Hospitalization No 01/15/25 13:38 Any Problems With Anesthesia No 01/15/25 13:38 Cholinesterase deficiency No 01/15/25 13:38 You/Your Family Experience No 01/15/25 13:38 fever (hyperthermia) with Relationship Recent Exposure to Contagious Disease Does patient have nerve No 01/15/25 13:38 stimulator Patient instructed to have device shut off --Does patient have Pacemaker or ICD? When Was Last Pacemaker Check QUESTION #4 FULL TEXT: You/Your Family Experience fever (hyperthermia) with Anesthesia Last Oral Intake Last Oral intake: Last Oral Intake NPO since Meds taken in AM with sips of water? Meds patient instructed to take am of surgery PONV PONV - napper runner: PONV - napper runner Female No 01/15/25 13:38 HX of Motion Sickness No 01/15/25 13:38 HX of N/V After Surgery No 01/15/25 13:38 Non-Smoker Yes 01/15/25 13:38 Duration of Surgery greater No 01/15/25 13:38 than 60 minutes Number of Risk Factors 1 01/15/25 13:38 PONV Score Low Risk 01/15/25 13:38 Height & Weight Height & Weight: Anesthesia: Height & Weight Height 6 ft 2.02 in 01/14/25 10:56 Respiratory Assessment Respiratory Assessment - napper runner: Respiratory Tract Infection Hx - napper runner Hx Respiratory Tract Infection No 01/15/25 13:38 STOP Sleep Apnea STOP Sleep Apnea - napper runner: STOP Sleep Apnea - napper runner Hx Hypertension Yes: CONTROLLED ON MED 01/15/25 13:38 Hx Sleep Apnea No 01/15/25 13:38 CPAP BIPAP Do you snore loudly (louder No 01/15/25 13:38 than talking or can be heard Do you often feel tired/ No 01/15/25 13:38 fatigued/ sleepy during daytime? Has anyone observed you stop No 01/15/25 13:38 breathing during sleep? STOP Results Negative 01/15/25 13:38 QUESTION #5 FULL TEXT : Do you snore loudly (louder than talking or can be heard through closed doors)? 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 Specify any problems Hx of Preganancy in last 3 N/A 01/15/25 13:38 Months Nurse Filling Out Transfusion VCHRISTIN 01/15/25 13:38 & Questions: Date: 01/15/25 01/15/25 13:38 Time: 13:40 01/15/25 13:38 Patient unable to answer at this time (ie. confused, unrespo /Reproduction History /Reproductive History - napper runner: /Reproductive Hx- napper runner Hx Now No 01/15/25 13:38 Gestational Age (in weeks): EDC: Hx Hx Para Hx Section SAB No 01/15/25 13:38 Active Medications Active Medications: Current Medications Generic Name Dose Route Start Last Admin Trade Name Freq PRN Reason Stop Dose Admin Sodium Chloride 1,000 mls @ 15 mls/hr 01/19/25 07:30 IV 01/24/25 20:49 .Q48H [facility] Protocol PFSH Medical History Wears glasses Marijuana use History of steroid therapy Arthritis Chewing tobacco nicotine dependence in remission History of pain when walking Hx of edema Hx of cardiovascular stress test DDD (degenerative disc disease), lumbar DVT (deep venous thrombosis) RSD lower limb HNP (herniated nucleus pulposus), lumbar Hypertension Hypertension Home Medications ?Medication ?Instructions ?Recorded ?Last Taken ?Type paroxetine HCl 20 mg tablet 1 tablet PO DAILY 02/13/23 Unknown History valsartan 160 1 tablet PO DAILY 02/13/23 U nknown History mg-hydrochlorothiazide 12.5 mg tablet aspirin 81 mg tablet,delayed 81 mg PO QDAY 01/02/25 Un known History release enoxaparin 120 mg/0.8 mL 120 mg (0.8 mL) subcut Q12H 30 01/15/25 Unknown Rx subcutaneous syringe (Lovenox) days #48 mL Allergy/AdvReac Type Severity Reaction Status Date / Time No Known Allergies Allergy Verified 01/15/25 13:25 Family History Father CVA (cerebral vascular accident) Father Heart disease Other Bleeding disorder CAD (coronary artery disease) Hypertension Surgical History Hx of hernia repair History of femoral hernia repair Social History Smoking Status: Former smoker Smokeless tobacco user: chewing tobacco how long ago did patient quit smokin can every 4-5 days alcohol intake: never Review of Systems (Anesthesia) ROS Narrative System reviewed and no additional complaints, except as documented. 01/19/25 0749 <Electronically signed by Joseph Segura MD > Date _ Joseph Segura MD Cosigner Signature: Date CC: ~ Signed [facility] Work Phone: 1(129) 401-186203-10-2025 History and physical note [facility] Medical Records Department [address] [place] [address] History & Physical Exam 01/19/25 0830 MR#: [id number] Acct: [id number] Name: DELTA CHEEK Jr. Rep #:[id number] : 1975 49 From: Bryn Mccall MD PCP: Dr. Rogelio Colvin MD Status:REG S FL Location: [place] [address] History and Physical Allergies No Known Allergies Allergy (Verified 01/02/25 10:49) Medications ?Medication ?Instructions ?Recorded ?Confirmed ?Type paroxetine HCl 20 mg tablet 1 tablet PO DAILY 02/13/23 04/17/24 Hist ory valsartan 160 1 tablet PO DAILY 02/13/23 04/17/24 Hist ory mg-hydrochlorothiazide 12.5 mg tablet aspirin 81 mg tablet,delayed 81 mg PO QDAY 01/02/25 History release Have you fallen in the past year?: No PFSH Medical History (Updated 01/06/25 @ 08:20 by JORGE A Schmitt) DDD (degenerative disc disease), lumbar DVT (deep venous thrombosis) RSD lower limb HNP (herniated nucleus pulposus), lumbar Hypertension Hypertension Surgical History History of femoral hernia repair Family History Father CVA (cerebral vascular accident)Father Heart diseaseOther Bleeding disorder CAD (coronary artery disease) Hypertension Social History Smoking Status: Never smoker Smokeless tobacco user: chewing tobacco how long ago did patient quit smokin can every 4-5 days alcohol intake: never HPI HPI HPI: DELTA CHEEK, is a 49 M who presents to the office today with increased LLE swelling and pain. He has noticed increased intermittent particularly left lower extremity edema. He notices it more on days that he is more up and active typically but not always. It does tend to improve with elevation. Initially about 4 weeks ago whenhe felt that he first started noticing it getting worse he also had pain in his proximal thigh and was very worried it was a recurrent DVT, venous duplex at that time was negative for any left lower extremity DVT and also captured his iliac stents which appeared patent. He has also felt that his skin along his legwill sometimes appear more pink/red. He also gets this aching in his left calf and left thigh. He has a lot of pain/discomfort within his hip, knee, and ankle,not necessarily worse with activity and not necessarily positional. He does havea history of significant lumbar degenerative disc disease, no recent imaging in this regard however and he is not following with orthopedic spine or pain management services. His PCP did order at that point a hip/pelvic x-ray which revealed mild osteoarthritis. His PCP also ordered a lower extremity arterial study which was normal. Venogram revealed occlusion of superior aspect of stent, subacute in appearance. ROS General General: Yes fatigue and weakness; No weight change, appetite, colon cancer or breast cancer HEENT HEENT: No difficulty swallowing, eye injury, eye surgery, swollen glands or hoarseness Endo Endocrine: No thyroid disease, diabetes mellitus, thyroid cancer, Hair loss, heat intolerance or cold intolerance Skin Skin: No rash or changing moles Musc Musculoskeletal: Yes back problems and arthritis; No rheumatoid arthritis, gout or joint pain Cardio Cardiovascular: Yes high blood pressure; No murmur, pacemaker, heart disease, atrial fibrillation, heart attack, heart stent, palpitations, shortness of breat with exertion or chest pain Psych Psychiatric: Yes anxiety; No depression or hearing voices Resp Respiratory: No shortness of breath, No sleep apnea, No cough, No COPD, No asthma, No emphysema andNo wheezing Gastro Gastrointestinal: No abdominal pain, No nausea or vomiting, No diarrhea, No constipation, No blood in stool, No acid reflux, No hemorrhoids, No ulcers, No gallbladder problem and No black,tarry stools Daniel Hematologic: No blood thinners, No blood disorders, No bleeding, No anemia and No blood clots Neuro Neurologic: No system reviewed and no additional complaints, except as documented, No as per HPI, No abnormal gait, No abnormal hearing, No abnormal movements, No abnormal speech, No behavioral changes, Yes burning sensations, Noconfusion, No convulsions, No disequilibrium, No dizziness, No localized weakness, No frequent falls, No headache(s), No lack of coordination, No loss ofvision, No memoryloss, Yes numbness, No other visual disturbances, Yes radicular pain, Yes restless legs, No sensorydeficit, No syncope, Yes tingling,No tremor(s), Yes weakness and No other Exam Const General: cooperative, healthy appearing, comfortable, no acute distress and welldeveloped Nutritional Appearance: well nourished Orientation: alert, awake and oriented x3 HENMT Head: normocephalic and atraumatic Ears: hearing grossly normal bilaterally Nose: external nose normal Eyes General: appearance normal, both eyes and all related structures EOM: EOM intact bilaterally Neck Neck: normal visual inspection, full ROM and trachea midline Resp Effort & Inspection: normal respiratory effort, able to speak in complete sentences, symmetric chest movement, no audible wheezes, not labored, no stridorand no use of accessory muscles Cardio Rate: regular rate Rhythm: regular rhythm Skin General: no rashes or lesions noted and no erythema Wounds: no wounds Neuro Cranial Nerves: CN's II-XI intact bilaterally and EOM intact bilaterally Speech: speech normal Gait: normal gait Motor: strength 5/5 throughout Sensory Exam: no sensory deficits noted Extremities Lower Extremity Edema: Trace: Left Psych Appearance: grossly normal and well kempt Mental Status: mental status grossly normal Mood: congruent mood Speech and Movement: speech and movement normal Thought Content: normal Judgment: judgment good Coding Level of Care Code Off vis,est,level 3 Diagnoses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 had no questions at disposition. I discussed with the patient, no indication to remove the small distal nail avulsion at this time. Patient's bleeding has stopped. Patient has evidence ofa open fracture to the left distal ring finger. Patient is placed on Keflex 3 times a day for 7 days. Patient will use topical antibiotic ointment 3-4 times a day. Wound care was discussed at bedside and on discharge paperwork. No questions at discharge. Patient's has been at bedside as well. Radiography Diagnostic Testing: Clinical Impression(s) from Imaging Studies Finger X-Ray 05/20/23 19:05 IMPRESSION: Acute nondisplaced fracture of the distal tuft of the distal fourth phalanx. Electronically Signed: Young Galarza MD at 19:42 EDT Reading Location ID and State: [facility] / [place] Tel , Service support , Discharge Plan Triage Chief Complaint: Laceration ED Provider: Oscar Andrade Dx/Rx/DC Orders Clinical Impression: Fracture of finger, proximal phalanx, left, open, Laceration of left ring finger with damage to nail Instructions: Tdap Vaccine, ED Fracture, Finger, Open, ED Laceration Extremity,ED Wound Check (No Infection) Prescriptions: New cephalexin [cephalexin] 500 mg capsule 500 mg PO 3XD Qty: 21 0RF No Action paroxetine HCl 20 mg tablet 1 tablet PO DAILY valsartan-hydrochlorothiazide 160-12.5 mg tablet 1 tablet PO DAILY enoxaparin [Lovenox] 100 mg/mL syringe 100 mg subcut Q12H 90 Days Qty: 180 2RF Stand Alone Forms: ED Work / School Excuse Primary Care Provider: Rogelio Colvin Chi Referrals: Michael Lake DO [Med Staff - Active Staff] - Rogelio Colvin Chi, MD [Primary Care Provider] - Activity Restrictions/Additional Instructions: Use topical antibiotic ointment 3-4 times a day, either Neosporin, bacitracin ortopical triple antibiotic. Keep your left ring finger clean and dry during the day, keep it open to air and oxygen at nighttime to help healing. The end of the fingernail will eventually fall off. Follow-up with PCP. Continue with Lovenox as prescribed. Finish all antibiotics to help prevent infection as well. Use your aluminum finger splint for the next 2 weeks to help with healingprocess and prevent further injury. You had a Tdap booster update tonight. Disposition Disposition: Home, Self Care What to do if you have Problems For any increased pain, shortness of breath, bleeding, nausea or vomiting, chestpain, or any unexpected problems, contact your Primary Care Provider. Call [facility] ([phone]) or report to the closest Emergency Room. Call 911 if necessary. 05/20/231953 <Electronically signed by Oscar Andrade DO> Cosigner Signature (if applicable): CC: Dr. Rogelio Colvin MD ~ Signed [facility] Work Phone: 1(172) 928-518507-09-2023 Hospital Discharge instructions Additional Instructions Use topical antibiotic ointment 3-4 times a day, either Neosporin, bacitracin or topical triple antibiotic. Keep your left ring finger clean and dry during the day, keep it open to air and oxygen at nighttime to help healing. The end of the fingernail will eventually fall off. Follow-up with PCP. Continue with Lovenox as prescribed. Finish all antibiotics to help prevent infection as well. Use your aluminum finger splint for the next 2 weeks to help with healing process and prevent further injury. You had a Tdap booster update tonight.[facility] Work Phone: [phone]) 818-105806-06-2023 Procedure [facility] 01-10-2023 Procedure [facility]03-01-2023 History and physical note Author Dr. Mccall [facility] January 10, 2023 10:49am Note Date/Time January 09, 2023 4:48pm [facility] Medical Records Department [address] [place] [address] History & Physical Exam 01/09/23 1646 MR#: [id number] Acct: [id number] Name: DELTA CHEEK Jr. Rep #:[id number] : 1975 47 From: Teena JULES PCP: Dr. Rogelio Colvin MD Status:ADM I N Location: [place] [address] HPI - General General Date of Admission: 01/09/23 Date of Service: 01/09/23 Chief Complaint: LLE DVT HPI Narrative DELTA CHEEK, is a 47 M who is admitted for heparin bridge in preparation for thrombectomy with possible stenting in the [place] 01/10/23. Patient reported left leg pain/edema starting around 12/26, presented to ER on 12/31 and was found to have extensive DVT up to and including his femoral vein. This occurred secondary to a back injury Dec 01 which significantly limited his activity. He was started on Xarelto. He continues to have persistent symptoms of LLE swelling/heaviness/pain which is limiting his mobility/activity.As such, he is agreeable to proceed with thrombectomy to reduce clot burden withgoal of improving his symptoms and minimizing chronic post-thrombotic complications. If central venous compression is identified at time of thrombectomy, plan to treat with stenting as indicated. He denies any changes in his health or medications since he was seen in office on 01/04/23. He endorses back pain, which he has been dealing with since his injury in November. His LLE pain/swelling is about the same, no significant improvement over the last week. He reports he is now noticing some R groin pain as well. Otherwise, denies F/C, N/V, CP, SOB, palpitations, syncope/pre-syncope,hematuria, blood in the stool. Last dose of Xarelto was this morning. [facility] Medical History Hypertension Hypertension Home Medications pantoprazole 40 mg tablet,delayed release 40 mg PO DAILY 30 days #30 tabs 01/26/23 [Rx Last Taken Unknown] hydrocodone-acetaminophen 5-325mg 5mg-325mg 1 tab PO BID 01/04/23 [History Last Taken Unknown] pregabalin 75 mg capsule 75 mg PO 4X/DAY 01/04/23 [History Last Taken Unknown] rivaroxaban 20 mg tablet (Xarelto) 15 mg PO BID 01/04/23 [History Last Taken Unknown] valsartan 160 mg tablet 160 mg PO DAILY 01/04/23 [History Last Taken Unknown] Allergy/AdvReac Type Severity Reaction Status Date / Time No Known Allergies Allergy Verified 01/04/23 14:37 Surgical History History of femoral hernia repair Social History Smoking Status: Never smoker Smokeless tobacco user: chewing tobacco how long ago did patient quit smokin can every 4-5 days alcohol intake: never ROS Constitutional Constitutional: Denies change in weight, chills, difficulty sleeping, fatigue, fever(s), frequent falls, lethargy, night sweats or weakness Eyes Eyes: Denies blindness, blurry vision, change in vision, eye pain or ptosis ENT HEENT: Denies abnormal hearing, change in voice, hearing loss, loss taste/smell or vertigo Cardiovascular Cardiovascular: Denies abdominal pain, chest pain, claudication, cold extremities, cyanosis, diaphoresis, dyspnea, dyspnea on exertion, fatigue, irregular heart rhythm, leg edema, leg ulcers, orthopnea, palpitations, radiating jaw, neck or arm pain or syncope Respiratory/Chest Respiratory/Chest: Denies cough, dyspnea, hemoptysis, nail bed cyanosis, roberto- oral cyanosis, portable oxygen @ home, productive cough or wheezing Gastrointestinal Gastrointestinal: Denies abdominal pain, change in bowel habits, change in stoolcharacter, coffee ground emesis, hematochezia, melena, rectal bleeding or weightchanges Genitourinary Genitourinary: Denies abdominal discomfort, burning urination, difficulty urinating, flank pain or hematuria Musculoskeletal Musculoskeletal: Reports back pain and extremity pain; Denies abnormal gait, difficulty walking, joint swelling, muscle cramps, muscle weakness or numbness Integumentary Integumentary: Denies change in pigmentation, changing lesions, erythema, lesions, rash, skin ulcer, unusual bruising or wounds Neurologic Neurologic: Denies abnormal gait, abnormal movements, abnormal speech, behavior changes, frequent falls, syncope, tingling or weakness Psychiatric Psychiatric: Denies behavioral changes, cognitive impairment or depression Endocrine Endocrinology: Denies change in body appearance, cold intolerance, excessive sweating, flushing, heat intolerance, palpitations, polydipsia, polyphagia or polyuria Hematologic/Lymphatic Hematologic/Lymphatic: Denies anemia, easy bleeding, easy bruising or lymphadenopathy Allergic/Immunologic Allergic/Immunologic: Denies seasonal rhinorrhea, throat swelling, tongue swelling, hives or asthma Vital Signs Vital Signs Vital Signs: 01/09/23 15:31 Temperature 97.8 F Temperature Source Oral Pulse Rate 88 Respiratory Rate 16 Blood Pressure 126/94 H Blood Pressure Mean 104 Blood Pressure Source Monitor Blood Pressure Position Semi-Fowlers Blood Pressure Location Left Arm Pulse Ox 99 Oxygen Delivery Method Room Air Physical Exam Const alert, oriented x3 and no apparent distress General Appearance: cooperative and comfortable HEENT normocephalic, hearing grossly normal bilaterally and external ears normal Head and Scalp: normal to inspection Nose: external nose normal Eyes EOMs intact bilaterally General Eye: normal appearance of both eyes Neck full ROM General: normal visual inspection and trachea midline; Negative for anterior neck swelling Resp normal respiratory effort, normal air movement, no retractions, no use of accessory muscles and clear to auscultation bilaterally Effort and Inspection: able to speak in complete sentences and symmetric chest movement; Negative for labored, stridor or audible wheezes Cardio regular rate and regular rhythm Peripheral Pulses: pulses 2+ throughout Extremity Extremity Narrative: LLE edema. Palpable DP/PT pulses bilaterally. Good color, appropriate warmth. Skin no rashes or lesions noted, no wounds and no mottling General Skin Exam: Negative for erythema, petechiae, purpura or pallor Trauma: no lacerations or abrasions Neuro oriented x3, CN's II-XII intact bilaterally, moves all extremities, no focal motor deficits and no sensory deficits noted Speech: speech normal Psych mental status grossly normal, thought process normal, cooperative, affect normal, speech normal and activity/motor behavior normal Appearance: grossly normal Attitude: calm and engaged Activity / Motor Behavior: appropriate eye contact Attention / Concentration: attention grossly intact Memory / Cognition: memory grossly intact Results Lab / Micro Data Result Diagrams: 01/09/23 16:31 01/09/23 16:31 Labs: Laboratory Results - last 24 hr 01/09/23 16:31: WBC 5.6, RBC 4.73, Hgb 13.8, Hct 42.4, MCV 89.6, MCH 29.2, MCHC 32.5, RDW Std Deviation 41.2, RDW Coeff of Alejo 12.6, Plt Count 268, MPV 8.8 Assessment & Plan Assessment/Plan (1) DVT (deep venous thrombosis): PLAN: All of patients question and concerns were addressed and he was agreeable to proceed with procedure. Proceed with thrombectomy possible stenting as planned in [place] 01/10/23 at 0800. Hold Xarelto. Start full-dose heparin drip. Obtain aPTT every 6 hours for heparin dosing per protocol. 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 NPO after midnight. Plan to return patient to PCU following procedure for hemodynamic monitoring andtransition back to Xarelto. Charges/Coding Visit Charges Inpatient E&M: 87361 Init Hosp L1 01/09/23 1721 <Electronically signed by Teena JULES> Cosigner Signature (if applicable): 01/10/23 1049 <Electronically signed by Bryn Mccall MD> CC: JORGE A Reynolds; Dr. Bryn Mccall MD; Dr. Rogelio Colvin MD~ Signed [facility] Work Phone: [phone] 610-615801-26-[address] Jeffery [facility] December 07, 2022 7:42am Note Date/Time December 07, 2022 7 :38am [facility] Medical Records Department [address] [place] [address] Instructions for Home/Discharge Instructions 12/07/22 0736 MR#: [id number] Acct: [id number] Name: DELTA CHEEK Rep #:[id number] : 1975 47 From: Javed Grimaldo PCP: Dr. Rogelio Colvin MD Status:ADM I NO Discharge Instructions Diet Discharge Diet: 2000 mg Sodium Diet Activity Discharge Activity: Return to Normal Activity Weight Bearing Status: Weight bearing as tolerated Additional Activity Instructions:: No exertional pulling, pushing, lifting or heavy physical work for 3 to 4 weeks Dressing / Incision Call your doctor if you observe: Fever of 101 or Higher, Coldness, Increased Pain, Numbness or Tingling, Change in Color, Inability to urinate, Inability to have a bowel movement, Shortness of breath, Dizziness, Fainting spells, Swellingin the ankles, Chest pain, Prolonged hiccupping, Increased palpitations (irregular heartbeat) and Calf discomfort Follow Up Care When: IN 2 WEEKS Test Results: Test results from this visit will be discussed in further detail at your follow- up appointment, if applicable. Discharge Plan Admission Admit Date/Time: 12/06/22 08:37 Primary Reason for Your Visit: Acute musculoskeletal spasm of right lumbar paraspinal region Attending Provider: Javed Jeffery Primary Care Provider: Rogelio Colvin Chi Discharge Orders/Prescriptions Prescriptions: New tizanidine 2 mg Tablet 4 mg PO Q8H PRN PRN (Reason: MUSCLE SPASM) 10 Days Qty: 30 0RF pantoprazole 40 mg Tablet,Delayed Release (Dr/Ec) 40 mg PO DAILY 30 Days Qty: 30 0RF ibuprofen 600 mg Tablet 600 mg PO Q8H PRN (Reason: muscle pain) Qty: 0 0RF Rx Instructions: Czno-ege-hygygwi, every 8 hourly for 3 days and then as needed as needed for muscle pain Continued Losartan/Hydrochlorothiazide [Hyzaar 100-12.5 Tablet] 1 TAB tablet 1 tab PO DAILY Referrals / Follow Up: Rogelio Colvin Chi, MD [Primary Care Provider] - Within 1 Week (For acute right paraspinal lumbar pain ) Tariq Flores DO [Med Staff - Active Staff] - Within 1 Month (as needed If backpain does not get better or becomes persistent) Disposition Disposition (needs filled in before D/C Order can be placed): Home, Self Care 12/07/22 0742<Electronically signed by Javed Jeffery MD>Javed Jeffery MD CC: Dr. Rogelio Colvin MD ~ Signed [facility] Work Phone: 1([phone]) 697-470901-25-2023 History and physical note Author Dr. Jeffery [facility] December 06, 2022 1:26pm Note Date/Time December 06, 2022 8 :53am [facility] Medical Records Department [address] [place] [address] H&P Exam - Hospitalist 12/06/22 0853 MR#: [id number] Acct: [id number] Name: DELTA CHEEK Rep #:[id number] : 1975 47 From: Javed Grimaldo PCP: Dr. Rogelio Colvin MD Status:ADM I NO Location: [facility] HPI - General General Date of Admission: 12/06/22 Date of Service: 12/06/22 Chief Complaint: Severe right-sided lumbar paraspinal and buttock pain since 12/01. HPI Narrative DELTA CHEEK, is a 47 M came to ED after he has severe right-sided lower back pain after he lifted a heavy table about 400 pounds on 12/01. He stayed at home on Sunday and then he went to [place] ED on 12/04. There is a need CT scanlumbar spine and thought mainly musculoskeletal pain without nerve involvement/cardiac related and discharged on pain medication and muscle relaxant. Patient continued to have severe pain not able to stand up or walk therefore came to ED today. No fever or chills. Patient denies fall or heavy object falling on his back. Patient has bladder filling sensation and able to empty bladder. No burning micturition or indurative symptoms although he has following standing up or act of micturition. Patient also passing flatus last bowel movement was on 12/02. Social history: Patient chew tobacco but does not smoke cigarettes or pipe or marijuana. No vaping. Denies substance use or chronic alcoholism Family history: Patient father had hypertension and a stroke and at the ageof 54. [facility] Medical History Hypertension Home Medications Losartan/Hydrochlorothiazide [Hyzaar 100-12.5 Tablet] 1 tab PO DAILY 03/07/16 [History Last Taken Unknown] Allergy/AdvReac Type Severity Reaction Status Date / Time No Known Allergies Allergy Verified 12/06/22 04:19 Surgical History History of femoral hernia repair Social History Smoking Status: Never smoker ROS ROS Narrative Constitutional: Reports fatigue and weakness HEENT: Reports systems reviewed and no addt'l complaints, except as documented Respiratory/Chest: Denies chest pain, shortness of breath at rest or with exertion Gastrointestinal: Denies coffee ground emesis, hematemesis or vomiting Genitourinary: Denies burning urination or new urinary tract symptoms Musculoskeletal: As described in HPI. Painful movement of right hip and lower back. Neurologic: Denies seizure-like activity. No focal acute strokelike symptoms skin: No ulcer. No rash Endocrinology: Obesity. Reports systems reviewed and no addt'l complaints, except as documented Hematologic/Lymphatic: Reports systems reviewed and no addt'l complaints, exceptas documented Rest 14 ROS are negative except as mentioned in HPI Vital Signs Vital Signs Vital Signs: 12/06/22 04:16 12/06/22 06:29 12/06/22 07:50 Temperature 98.3 F 98.1 F Temperature Source Temporal Oral Pulse Rate 75 51 L 64 Respiratory Rate 22 H 16 18 Blood Pressure 158/75 H 133/57 H 128/68 H Blood Pressure Mean 102 82 88 Pulse Ox 99 97 96 Oxygen Delivery Method Room Air Room Air Room Air Weight Weight: 254 lb 3.088 oz Body Mass Index (BMI) 32.6 Physical Exam Narrative Physical exam General: Alert, Oriented x3, Cooperative HEENT: Atraumatic, PERRLA, EOMI, Normocephalic Oral: Oral mucosa moist. No Gingival or Mucosal Lesions/ Ulcerations Neck: Supple, No JVD, Negative Carotid Bruits Lungs: Air entry diminished in bilateral lung bases. No crepitation/rhonchi Cardiovascular: Regular rate, Regular Rhythm, Normal S1, Normal S2, No murmurs Abdomen: Bowel Sounds Present, Soft, Non Tender, Non-Distended : No renal angle tenderness. No suprapubic tenderness. Extremities: No edema, Capillary Refill Less than 3 Seconds Skin: No rashes, No breakdown Musculoskeletal: Tenderness and spasm present over right lumbar paraspinal muscle, erector spinae. ROM severely limited at right hip, lumbar spine due to pain and spasm. LLE normal ROM. Neurological: Cranial nerves II-XII grossly intact, DTR 2+/4. Intact perineal sensation. Anal sphincter tone intact and good. Gross sensory touch and pressure equal symmetrical in lower extremities and back. Psych/Mental Status: Flat affect. Results Lab / Micro Data Result Diagrams: 12/06/22 09:00 12/06/22 09:00 Assessment & Plan Assessment/Plan (1) Intractable low back pain: PLAN: Plan This is 47-year-old gentleman is being admitted for acute back pain with spasm after lifting heavy table. 1. Debility due to acute musculoskeletal pain and spasm of right lumbar paraspinal muscle, not able to stand up or ambulate: Patient is being admitted on [facility] reservation. On Tylenol, ibuprofen for pain control. On oxycodone and Dilaudid as opioid for moderate to severe pain. Muscle relaxant ordered. Dexamethasone 4 mg twice daily. Senna as an MiraLAX and stool softener. On Protonix. PT and OT ordered. 2. Hypertension: Blood pressure is in normal range. Home medication HCTZ and losartan continued 3. Obesity grade 1: BMI 32.6 kg/m?. Moderate risk for DVT: Enoxaparin 40 mill subcu daily. Full code verified. Charges/Coding Visit Charges Inpatient E&M: 27756 Init Hosp L3 12/06/22 1326 <Electronically signed by Javed Jeffery MD> Cosigner Signature (if applicable): CC: Dr. Javed Jeffery MD; Dr. Rogelio Colvin MD~ Signed [facility] Work Phone: [phone]) [phone] Discharge summary Author Jacek Raygoza [facility] December 06, 2022 8:49am Note Date/Time December 06, 2022 8 :49am [facility] Medical Records Department [address] [place] [address] Emergency Department Summary 12/06/22 MR#: [id number] Acct: [id number] Name: DELTA CHEEK Rep #:[id number] : 1975 47 From: Jacek Raygoza DO PCP: Dr. Rogelio Colvin MD Status:REG E R Location: ED HPI History of Present Illness Chief Complaint: Back Narrative Narrative: Patient is a 47-year-old male with past medical history of hypertension. He states that on Sunday he was lifting a heavy metal kettle and after doing so felt pain mainly in his right side low back. He states he did not think much ofthis but as the days passed he was having increasing pain to the point where he was unable to ambulate. He states that there has been no loss of bowel or bladder control or IV drug use. He states he went to an outside hospital just yesterday where he had a CT scan secondary to his pain which showed just degenerative changes consistent with age but otherwise no acute finding. He hasbeen taking oxycodone and Zanaflex and prednisone but despite this has had persistent pain but no repeat trauma. Secondary to the persistent pain and the inability ambulate he presents for reevaluation [facility] Medical History Hypertension Home Medications Losartan/Hydrochlorothiazide [Hyzaar 100-12.5 Tablet] 1 tab PO DAILY 03/07/16 [History Last Taken Unknown] Allergy/AdvReac Type Severity Reaction Status Date / Time No Known Allergies Allergy Verified 12/06/22 04:19 Surgical History (Updated 12/06/22 @ 04:21 by Joelle Elizondo) History of femoral hernia repair Social History Smoking Status: Never smoker [facility] ED Constitutional Constitutional ED: Denies chills or fever(s) ENT ENT ED: Denies sore throat Cardiovascular Cardiovascular: Denies chest pain Respiratory/Chest Respiratory/Chest: Denies cough or dyspnea Gastrointestinal Gastrointestinal: Denies abdominal pain, diarrhea, nausea or vomiting Genitourinary Genitourinary ED: Denies dysuria or hematuria Musculoskeletal Musculoskeletal: Reports back pain Integumentary Denies rash Neurologic Neurologic: Denies headache(s) or paresthesias Hematologic/Lymphatic Hematologic/Lymphatic: Denies easy bleeding or easy bruising EXAM Physical Exam Const Vital Signs: 12/06/22 04:16 12/06/22 06:29 12/06/22 07:50 Temperature 98.3 F 98.1 F Temperature Source Temporal Oral Pulse Rate 75 51 L 64 Respiratory Rate 22 H 16 18 Blood Pressure 158/75 H 133/57 H 128/68 H Blood Pressure Mean 102 82 88 Pulse Ox 99 97 96 Oxygen Delivery Method Room Air Room Air Room Air Positive well nourished, well developed and obese General Appearance ED: well developed Nutritional Appearance: obese Eyes PERRL and EOMs intact bilaterally Neck supple Resp normal respiratory effort and clear to auscultation bilaterally Cardio regular rate and regular rhythm Rate: other Other Details: Radial pulses are plus 2 out of 4 bilaterally are equal and symmetric Carotid pulses equal and symmetric GI normal to inspection, nondistended, normoactive bowel sounds, non-tender, non-distended and no masses GI Narrative: No voluntary guarding or rigidity no pulsatile mass Auscultation: normoactive bowel sounds Palpation: soft Back/Spine Back/Spine Narrative: No bony deformity or step-off of the thoracic or lumbar spine no midline pain with palpation. There is right paralumbar tenderness and spasm noted that extends down into the piriformis muscle belly region. No saddle anesthesia. Negative straight leg raise. No clonus or Babinski. Patellar reflexes are plus3 out of 4 bilaterally Extremity normal to inspection Extremity Narrative: No abrasions or ecchymosis noted No signs of trauma or infection Neuro oriented x3 and CN's II-XII intact bilaterally Sensorium / Orientation: alert Psych mental status grossly normal Skin no rashes or lesions noted MDM MDM MDM Narrative Medical decision making narrative: Patient presented to the ER hypertensive but has known history of this and is inpain so this is to be expected. He does not have physical exam findings for cauda equina or epidural abscess. There is no midline pain with palpation and with his report of recent CT scan I felt no need for repeat imaging. Patient was given a total of 2 mg of IV Dilaudid 60 mg of IV Norflex 10 mg of IV Decadron and 10 mg of oral Valium. He did have improvement of pain but no resolution and he could stand with a walker but he could not walk. At this timeas he is having intractable pain I do not feel it is safe for him to go home. At this time he does not appear to have CVA pain indicating kidney stone there are no obvious signs of infection and I have low concern for cauda equina or epidural abscess based on his history and risk factors. Therefore do not feel there is need for further work-up but based on his intractable pain needs to be admitted for further care. The case was discussed with medicine on-call and they are agreeable to it and patient will be admitted for continued pain management at this time Discharge Plan Triage Chief Complaint: Back ED Provider: Jacek Raygoza Dx/Rx/DC Orders Clinical Impression: Intractable low back pain, Unable to ambulate, Hypertension Prescriptions: No Action Losartan/Hydrochlorothiazide [Hyzaar 100-12.5 Tablet] 1 TAB tablet 1 tab PO DAILY Primary Care Provider: Rogelio Colvin Chi Referrals: Rogelio Colvin Chi, MD [Primary Care Provider] - Disposition Disposition: [facility] What to do if you have Problems For any increased pain, shortness of breath, bleeding, nausea or vomiting, chestpain, or any unexpected problems, contact your Primary Care Provider. Call [facility] ([phone]) or report to the closest Emergency Room. Call 911 if necessary. 12/06/22 0849 <Electronically signed by Jacek Raygoza DO> Cosigner Signature (if applicable): CC: Dr. Rogelio Colvin MD ~ Signed [facility] Work Phone: [phone] 846-248008-02-2021 NotePatient Outreach (UROLMN) DELTA CHEEK JR. ([id number]) 1975 M Date Time Provider Department 06/13/21 FRAN ARCHIBALD During your visit today, we recorded the following information about you: Allergies As of Date: 06/13/2021 (No Known Allergies) Date Reviewed: 06/13/2021 Reviewed by: Vee Helton Ma - Fully Assessed Visit Diagnosis:Screening for genitourinary condition [Z13.89] Order(s):URINALYSIS, DIPSTICK ONLY [SQUA] Order #: [id number] URINALYSIS, DIPSTICK ONLY [SQUA] Order #: [id number] Prescriptions as of 06/16/2021 - losartan-hydroCHLOROthiazide (HYZAAR) 100-25 mg per tablet TAKE 1 TABLET ORALLY ONCE PER DAY FOR 90 DAYS - PARoxetine (PAXIL) 40 mg tablet TAKE 1 TABLET ORALLY ONCE PER DAY FOR 90 DAYS - Valsartan-Hydrochlorothiazide 320-25 mg per tablet - PARoxetine (PAXIL) 20 mg tablet Problem List As Of Date 06/13/2021 Noted Resolved 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 Author Type: Physician Type: Progress Notes Filed: 06/13/2021 11:21 AM Note Text: [facility] NEW PATIENT HISTORY AND PHYSICAL EXAM PATIENT INFO: Delta Macias Adia Chan 45 year old REFERRING M.D.: Scar Mensah MD ([facility]) [address] [place] [id number] This consult was requested by Scar Mensah MD for an opinion regarding peyronies disease, and my final recommendations will be communicated to the requesting health care provider by way of the shared medical record for internal providers or letter via the [employer] for external providers. HISTORY Chief Complaint: penile curvature, shortening HPI: This is 45 year old male with no urologic history. He notes that in December/January of this year he noted that his erect penis was approximately 40% less in length and girth than previous. He also noted a 15 degree dorsal curvature. This appeared to be a sudden onset. He reports excellent erections with no pain and no issues with penetrative intercourse. He was offered Shonda and was referred for further evaluation. Onset of curvature: January 2021 Degree of primary curvature: <15 degrees Direction of primary curvature:dorsal Degree of secondary curvature:N/A degrees Direction of secondary curvature: NA Known or probable prior injury or buckling event: no Pain with erections previously: yes Pain with erections in the past month: yes ED: Partial or insufficient erections denies Hinging or bending with erections: no Prior therapies:none Is the patient able to have intercourse? Y Is the patient circumcised? circumcised Personal history of Dupuytren's contracture or Ledderhose's disease none MEDICATIONS: Current Outpatient Medications Medication Sig - losartan-hydroCHLOROthiazide (HYZAAR) 100-25 mg per tablet TAKE 1 TABLET ORALLY ONCE PER DAY FOR 90 DAYS - PARoxetine (PAXIL) 40 mg tablet TAKE 1 TABLET ORALLY ONCE PER DAY FOR 90 DAYS - Valsartan-Hydrochlorothiazide 320-25 mg per tablet - PARoxetine (PAXIL) 20 mg tablet No current facility-administered medications for this visit. MEDICATION ALLERGIES: ALLERGIES No Known Allergies PAST MEDICAL HISTORY Diagnosis Date - Essential hypertension 06/13/2021 - Morbid obesity with BMI of 40.0-44.9, adult (HCC) 06/13/2021 - Peyronie's disease 06/13/2021 PAST SURGICAL HISTORY Procedure Laterality Date - COLONOSCOP W/ OR W/O [facility] SPEC Colonoscopy - REPAIR FEMORAL HERNIA right FAMILY HISTORY: NEGATIVE: No related previous family history. FAMILY HISTORY 1st Degree Relative: no peyronies disease Social History Tobacco Use - Smoking status: Never Smoker - Smokeless tobacco: Current User Types: Chew Substance Use Topics - Alcohol use: No - Drug use: Not on file REVIEW OF SYSTEMS: Constitutional: negative Eyes: negative Ear Nose and Throat: negative Cardiovascular: negative Respiratory: negative Gastrointestinal: negative Musculoskeletal: negative Integumentary: negative Neurological: negative Psychiatric: negative Endocrine: negative Hematologic/Lymphatic: negative Allergic/Immunologic: negative PHYSICAL EXAM: BP 137/96 Pulse 78 Wt 113.4 kg (250 lb) BMI 42.91 kg/m? GENERAL: WNL nutrition, no deformities, healthy appearing HEAD AND NECK: No masses, adenopathy, icterus. Thyroid nonpalpable RESP: nonlabored CV: RRR, ABDOMEN: Soft, nontender, nondistended, no masses. HERNIAS: None SKIN/LYMPH: No rash, lesions NEURO/PSYCH: No signs of depression, anxiety, or agitation EXTREMITIES: Extremities normal. No deformities, edema, clubbing or skin discoloration. GENITOURINARY: MALE EXAM: Large suprapubic fat pad limiting proximal exam of penis. Testes nontender. Penis circ, no plaques appreciated on midshaft to distal penis. MEDICAL DECISION MAKING: (A1) IMPRESSION: (Diagnostic Possibilities) New or Established 1) Peyronies Disease (A2) PLAN: (Management Options) Patient with stable <15 degree dorsal curvature. He has erections sufficient for penetrative intercourse. He is concerned about length and girth. We discussed weight loss strategies to improve exposure of his penis. We discussed that there are no surgical options given his stable curvature and strong erections. Buzz Weiner MD Clinical Fellow Male Genitourinary Reconstruction AND Prosthetic Surgery Electronically signed STAFF NOTE: I evaluated the patient and personally participated in the hand components. I agree with the resident's findings and plan as documented and have discussed the case and management of the patie (more content not included)...[facility] [place] clinicDischar summary Author Dr. Jeffery [facility] December 07, 2022 7:48am Note Date/Time December 07, 2022 7 :48am [facility] Medical Records Department [address] [place] [address] Discharge Summary 12/07/22 0743 MR#: [id number] Acct: [id number] Name: DELTA CHEEK Rep #:[id number] : 1975 47 From: Javed Grimaldo PCP: Dr. Rogelio Colvin MD Status:ADM I NO Location: [address] Providers Date of Admission: 12/06/22 Date of Discharge: 12/07/22 Primary Care Physician: Dr. Rogelio Colvin MD Reason For Visit: ACUTE BACK PAIN Diagnosis Discharge Diagnosis (1) Intractable low back pain: Status: Acute Code(s): M54.59 - Other low back pain Plan This is 47-year-old gentleman is being admitted for acute back pain with spasm after lifting heavy table. 1. Debility due to acute musculoskeletal pain and spasm of right lumbar paraspinal muscle, not able to stand up or ambulate: Patient is being admitted on [facility] reservation. On Tylenol, ibuprofen for pain control. On oxycodone and Dilaudid as opioid for moderate to severe pain. Muscle relaxant ordered. Dexamethasone 4 mg twice daily. Senna as an MiraLAX and stool softener. On Protonix. PT and OT ordered. 12/07: CT of the lumbar spine reviewed with the patient. It showed moderate to severe degenerative changes of L4-L5 disc. No evidence of acute bony deformity. Marked disc narrowing at L4-L5 with mild narrowing of spinal canaPatient has prescription of oxycodone and tramadol and muscle relaxant given from [place] [facility]. He was given prescription for tizanidine. Patient advised to take anmd-bhn-oggdrsv ibuprofen 600 mg every 8 hourly for 3 days and then as needed for back pain. Advised to follow with PCP Dr. Colvin in 1 week. Patient was also given option of follow-up with Dr. Flores if back pain becomes persistent or gets worse. 2. Hypertension: Blood pressure is in normal range. Home medication HCTZ and losartan continued 3. Obesity grade 1: BMI 32.6 kg/m?. Moderate risk for DVT: Enoxaparin 40 mg subcu daily. Full code verified. Discharge medication reconciliation done. Discharge follow-up instructions completed. Discharge process discussed with the patient and all questions wereanswered to patient's satisfaction. Total time spent, exact 35 minutes on discharge meds reconciliation, examination, coordination of care with nurses and ancillary staff, review of imaging and blood test and discussion with the patient on follow-up instructions. Medications at Discharge Home Medications Losartan/Hydrochlorothiazide [Hyzaar 100-12.5 Tablet] 1 tab PO DAILY 03/07/16 ibuprofen 600 mg tablet 600 mg PO Q8H PRN muscle pain #0 tabs 12/07/22 pantoprazole 40 mg tablet,delayed release 40 mg PO DAILY 30 days #30 tabs 12/07/22 tizanidine 2 mg tablet 4 mg PO Q8H PRN PRN MUSCLE SPASM 10 days #30 tabs 12/07/22 Physical Exam Narrative Seen and examined in the morning. Back pain is better and patient cannot stand up and ambulate. He wants to go home. CT scan of lumbar spine discussed with the patient. Physical exam General: Alert, Oriented x3, Cooperative HEENT: Atraumatic, PERRLA, EOMI, Normocephalic Oral: Oral mucosa moist. No Gingival or Mucosal Lesions/ Ulcerations Neck: Supple, No JVD, Negative Carotid Bruits Lungs: Air entry diminished in bilateral lung bases. No crepitation/rhonchi Cardiovascular: Regular rate, Regular Rhythm, Normal S1, Normal S2, No murmurs Abdomen: Bowel Sounds Present, Soft, Non Tender, Non-Distended : No renal angle tenderness. No suprapubic tenderness. Extremities: No edema, Capillary Refill Less than 3 Seconds Skin: No rashes, No breakdown Musculoskeletal: Mild Tenderness present over right lumbar paraspinal muscle. can walk. LLE normal ROM. Neurological: Cranial nerves II-XII grossly intact, DTR 2+/4. Intact perineal sensation. Anal sphincter tone intact and good. Gross sensory touch and pressure equal symmetrical in lower extremities and back. Psych/Mental Status: Flat affect. Weight / BMI Weight Weight: 254 lb 3.088 oz Body Mass Index (BMI) 32.5 ABG / Lab / Microbiology Data Result Diagrams: 12/06/22 09:00 12/06/22 09:00 Laboratory: Laboratory Results - last 24 hr 12/06/22 09:00: WBC 9.7, RBC 5.02, Hgb 14.6, Hct 43.3, MCV 86.3, MCH 29.1, MCHC 33.7, RDW Std Deviation 38.5, RDW Coeff of Alejo 12.4, Plt Count 230, MPV 9.4, Immature Gran % (Auto) 0.500, Neut % (Auto) 90.1 H, Lymph % (Auto) 7.4 L, [place] %(Auto) 1.9, Eos % (Auto) 0.0, Baso % (Auto) 0.1, Absolute Neuts (auto) 8.7 H, Absolute Lymphs (auto) 0.72 L, Nucleated RBC % 0 12/06/22 09:00: Sodium 140, Potassium 4.0, Chloride 109 H, Carbon Dioxide 25.0, Anion Gap 6, BUN 18, Creatinine 1.16, Estim Creat Clear Calc 89.56, Est GFR (MDRD) Af Amer 86, Est GFR (MDRD) Non-Af 71, BUN/Creatinine Ratio 15.5, Glucose 127 H, Calcium 8.8 12/06/22 12:20: Urine Color Yellow, Urine Clarity Clear, Urine pH 8.0, Ur Specific [place] 1.015, Urine Protein Negative, Urine Glucose (UA) Normal, UrineKetones Negative, Urine Occult Blood Negative, Urine Nitrite Negative, Urine Bilirubin Negative, Urine Urobilinogen Normal, Ur Leukocyte Esterase Negative, Urine RBC 0 SEEN, Urine WBC 0 SEEN, Ur Squamous Epith Cells 0 SEEN, Urine Bacteria 0 SEEN, Urine Mucus 0 SEEN D/C Instructions Discharge Diet: 2000 mg Sodium Diet Weight Bearing Status: Weight bearing as tolerated Additional Activity Instructions: No exertional pulling, pushing, lifting or heavy physical work for 3 to 4 weeks Call your doctor if you observe: Fever of 101 or Higher, Coldness, Increased Pain, Numbness or Tingling, Change in Color, Inability to urinate, Inability to have a bowel movement, Shortness of breath, Dizziness, Fainting spells, Swellingin the ankles, Chest pain, Prolonged hiccupping, Increased palpitations (irregular heartbeat) and Calf discomfort When: IN 2 WEEKS Meaningful Use Info Meaningful Use Diagnoses (Choose all that apply): None applicable Discharge Plan Admission Admit Date/Time: 12/06/22 08:37 Primary Reason for Your Visit: Acute musculoskeletal spasm of right lumbar paraspinal region Attending Provider: Javed Jeffery Primary Care Provider: Rogelio Colvin Chi Discharge Orders/Prescriptions Prescriptions: New tizanidine 2 mg Tablet 4 mg PO Q8H PRN PRN (Reason: MUSCLE SPASM) 10 Days Qty: 30 0RF pantoprazole 40 mg Tablet,Delayed Release (Dr/Ec) 40 mg PO DAILY 30 Days Qty: 30 0RF ibuprofen 600 mg Tablet 600 mg PO Q8H PRN (Reason: muscle pain) Qty: 0 0RF Rx Instructions: Wuil-idb-snjzslh, every 8 hourly for 3 days and then as needed as needed for muscle pain Continued Losartan/Hydrochlorothiazide [Hyzaar 100-12.5 Tablet] 1 TAB tablet 1 tab PO DAILY Referrals / Follow Up: Tariq Flores DO [Med Staff - Active Staff] - Within 1 Month (as needed If backpain does not get better or becomes persistent) Rogelio Colvin Chi, MD [Primary Care Provider] - Within 1 Week (For acute right paraspinal lumbar pain ) Disposition Disposition (needs filled in before D/C Order can be placed): Home, Self Care Charges/Coding Visit Charges Inpatient E&M: 34805 Disch Hosp >30min 12/07/22 0748 <Electronically signed by Javed Jeffery MD> Cosigner Signature (if applicable): CC: Dr. Javed Jeffery MD; Dr. Rogelio Colvin MD~ Signed [facility] Work Phone: Evaluation note* Diagnosis Onset Date Resolution Status Intractable low back pain ac [place] Unable to ambulate acute Hypertension chronic [facility] Work Phone: Evaluation note* Diagnosis Onset Date Resolution Status Intractable low back pain re solved Unable to ambulate resolved [facility] Work Phone: Evaluation note* Diagnosis Onset Date Resolution Status Intractable low back pain re solved Unable to ambulate resolved HNP (herniated nucleus pulposus), lumbar acute Lower back injury acute RSD lower limb acute [facility] Work Phone: Evaluation note* Diagnosis Onset Date Resolution Status Intractable low back pain re solved Unable to ambulate resolved HNP (herniated nucleus pulposus), lumbar acute Lower back injury acute RSD lower limb acute DVT (deep venous thrombosis) acute [facility] Work Phone: Evaluation note* Diagnosis Onset Date Resolution Status Intractable low back pain re solved Unable to ambulate resolved HNP (herniated nucleus pulposus), lumbar acute Lower back injury acute RSD lower limb acute DVT (deep venous thrombosis) acute DVT (deep venous thrombosis) acute [facility] Work Phone: Evaluation note* Diagnosis Onset Date Resolution Status Intractable low back pain re solved Unable to ambulate resolved HNP (herniated nucleus pulposus), lumbar acute Lower back injury acute RSD lower limb acute DVT (deep venous thrombosis) acute DVT (deep venous thrombosis) acute DDD (degenerative disc disease), lumbar acute Low back pain noneactive DVT (deep venous thrombosis) acute [facility] Work Phone: Evaluation note* Diagnosis Onset Date Resolution Status Intractable low back pain re solved Unable to ambulate resolved HNP (herniated nucleus pulposus), lumbar acute Lower back injury acute RSD lower limb acute DVT (deep venous thrombosis) acute DVT (deep venous thrombosis) acute DDD (degenerative disc disease), lumbar acute Low back pain noneactive DVT (deep venous thrombosis) acute DVT (deep venous thrombosis) acute [facility] Work Phone: Evaluation note* Diagnosis Onset Date Resolution Status Lower back injury acute Low back pain noneactive [facility] Work Phone: Evaluation note* Diagnosis Onset Date Resolution Status Low back pain noneactive Stenosis of iliac vein acute [facility] Work Phone: Evaluation note* Diagnosis Onset Date Resolution Status Stenosis of iliac vein acute [facility] Work Phone: Evaluation note* Diagnosis Lumbar strain, initial encounter- Primary documented in this encounter [facility] Work Phone: Hospital Discharge instructions Additional Instructions Return tomorrow for the ultrasound. We are treating you today as potentially having a blood clot in your left leg. We started medication called Eliquis which is a blood thinner. If the scan tomorrow confirms there is a clot keep taking this medication. If there is no clot to stop taking it. If the test is positive you do not need to return back to the emergency room, just follow-up with your primary care doctor.[facility] Work Phone: Hospital Discharge instructions* Attachments The following attachments cannot be sent through Care Everywhere. * Back Muscle Strain (Arabic) [facility] Work [facility]: Summary Purpose Family History No Family History Records Found Relationship Condition Age at Onset Recorded Date/T jamie father Cerebrovascular accident (CVA) Unknown father Heart disease Unknown Relationship Condition Age at Onset Recorded Date/T jamie Not Specified Coronary artery disease Unknown Hemorrhagic disorder Unknown Hypertension Unknown father Cerebrovascular accident (CVA) Unknown father Heart disease Unknown Advance Directives No Advanced Directives Records Found Advance Directive Response Recorded Date/ Time Living Will No December 06 4:19am [employer] No December 06, 2022 4:19am Advance Directive Response Recorded Date/ Time Living Will No December 06 12:36pm Power [employer] No December 06, 2022 12:36pm Advance Directive Response Recorded Date/ Time Name of Medical Power of [employer] Milvai Snyder December 31, 2022 7:47pm Living Will Yes December 31, 023 7:47pm Power [employer] Yes December 31, 2022 7:47pm Advance Directive Response Recorded Date/ Time Name of Medical Power of [employer] Milvia Snyder December 31, 2022 7:47pm Name of Medical Power of [employer] Meir Snyder January 09, 2023 3:22pm Living Will Yes January 09 023 3:22pm Power [employer] Yes January 09, 2023 3:22pm Advance Directive Response Recorded Date/ Time Name of Medical Power of [employer] Milvia Snyder December 31, 2022 8:47pm Name of Medical Power of [employer] Meir Snyder January 09, 2023 4:22pm Living Will No January 11, 2023 3:06pm Power [employer] No January 11 3:06pm Advance Directive Response Recorded Date/ Time Living Will No January 25, 2023 11:07am [employer] No January 25 11:07am Name of Medical Power of [employer] Milvia Snyder December 31, 2022 8:47pm Name of Medical Power of [employer] Meir Snyder January 09, 2023 4:22pm Advance Directive Response Recorded Date/ Time Name of Medical Power of [employer] Milvia Snyder December 31, 2022 8:47pm Name of Medical Power of [employer] Meir Snyder January 09, 2023 4:22pm Name of Medical Power of [employer] februaryApril 06, 2023 9:33pm Living Will Yes April 06, 2023 9 :33pm Power of [employer] Yes April 06, 2023 9:33pm Advance Directive Response Recorded Date/ Time Name of Medical Power of [employer] Milvia Snyder December 31, 2022 8:47pm Name of Medical Power of [employer] Meir Claudio January 09, 2023 4:22pm Advance Directives No April 17 8:54am Living Will No April 17, 2023 8 :54am Power of [employer] No April 17, 2023 8:54am Name of Medical Power of [employer] februaryApril 06, 2023 9:33pm Advance Directive Response Recorded Date/ Time Name of Medical Power of [employer] Meir Snyder January 09, 2023 4:22pm Advance Directives No April 17 8:54am Living Will No April 17, 2023 8 :54am Power of [employer] No April 17, 2023 8:54am Name of Medical Power of [employer] februaryApril 06, 2023 9:33pm Advance Directive Response Recorded Date/ Time Name of Medical Power of [employer] februaryApril 06, 2023 9:33pm Advance Directives No April 17 8:54am Living Will No May 20, 2023 6 :17pm Power of [employer] No May 20, 2023 6:17pm Advance Directive Response Recorded Date/ Time Advance Directives No October 18, 2023 10:40am Living Will No October 18 10:40am Power [employer] No October 18, 2023 10:40am Advance Directive Response Recorded Date/ Time Living Will No November 04 12:51am Power [employer] No November 04, 2024 12:51am Advance Directives on File No January 14, 2025 11:56am Living Will Yes January 14, 2025 11:56am Power of [employer] Yes January 14 11:56am Name of Medical Power of [employer] FebruaryJanuary 14, 2025 11:56am Advance Directives Yes January 14 11:56am Living Will No January 19, 2025 4:09pm Power of [employer] No January 19 4:09pm Advance Directive Response Recorded Date/ Time Advance Directives Yes January 26 8:20am Living Will No November 04 12:51am Do you have a Healthcare Pow er of [employer]? No November 04, 2024 12:51am Advance Directives on File No January 14, 2025 11:56am Living Will Yes January 14, 2025 11:56am Do you have a Healthcare Pow er of [employer]? Yes January 14, 2025 11:56am Name of Medical Power of [employer] FebruaryJanuary 14, 2025 11:56am Living Will No January 19, 2025 4:09pm Do you have a Healthcare Pow er of [employer]? No January 19, 2025 4:09pm Advance Directive Response Recorded Date/ Time Advance Directives Yes January 26 025 8:20am Living Will No November 04 12:51am Do you have a Healthcare Pow er of [employer]? No November 04, 2024 12:51am Advance Directives on File No January 14, 2025 11:56am Living Will Yes January 14, 2025 11:56am Do you have a Healthcare Pow er of [employer]? Yes January 14, 2025 11:56am Name of Medical Power of [employer] FebruaryJanuary 14, 2025 11:56am Living Will No January 19, 2025 4:09pm Do you have a Healthcare Pow er of [employer]? No January 19, 2025 4:09pm Living Will Yes February 09, 2025 3:08pm Do you have a Healthcare Pow er of [employer]? Yes February 09, 2025 3:08pm Name of Medical Power of [employer] FebruaryFebruary 09, 2025 3:08pm Chief Complaint and Reason for Visit Chief Complaint ACUTE BACK PAIN Reason for Visit Intractable low back pain Unable to ambulate Hypertension Chief Complaint ACUTE BACK PAIN ACUTE BACK PAIN ACUTE BACK PAIN Reason for Visit Intractable low back pain Unable to ambulate Hypertension Chief Complaint ACUTE BACK PAIN ACUTE BACK PAIN ACUTE BACK PAIN LEFT LEG PAIN Reason for Visit Intractable low back pain Unable to ambulate Chief Complaint ACUTE BACK PAIN ACUTE BACK PAIN ACUTE BACK PAIN LEFT LEG PAIN LEFT LEG R/O DVT LUMBER SPINE Room 2 Hospital FU Reason for Visit Intractable low back pain Unable to ambulate HNP (herniated nucleus pulposus), lumbar Lower back injury RSD lower limb Chief Complaint ACUTE BACK PAIN ACUTE BACK PAIN ACUTE BACK PAIN LEFT LEG PAIN LEFT LEG R/O DVT LUMBER SPINE Room 2 Hospital FU THROMDECTOMY POSSIBLE STENT THROMDECTOMY POSSIBLE STENT THROMDECTOMY POSSIBLE STENT Reason for Visit Intractable low back pain Unable to ambulate HNP (herniated nucleus pulposus), lumbar Lower back injury RSD lower limb DVT (deep venous thrombosis) Chief Complaint ACUTE BACK PAIN ACUTE BACK PAIN ACUTE BACK PAIN LEFT LEG PAIN LEFT LEG R/O DVT LUMBER SPINE Room 2 Hospital FU THROMDECTOMY POSSIBLE STENT THROMDECTOMY POSSIBLE STENT AM EKG THROMDECTOMY POSSIBLE STENT THROMDECTOMY POSSIBLE STENT SYNCOPE LUMBAR PAIN follow up Reason for Visit Intractable low back pain Unable to ambulate HNP (herniated nucleus pulposus), lumbar Lower back injury RSD lower limb DVT (deep venous thrombosis) DVT (deep venous thrombosis) Chief Complaint ACUTE BACK PAIN ACUTE BACK PAIN ACUTE BACK PAIN LEFT LEG PAIN LEFT LEG R/O DVT LUMBER SPINE Room 2 Hospital FU THROMDECTOMY POSSIBLE STENT THROMDECTOMY POSSIBLE STENT AM EKG THROMDECTOMY POSSIBLE STENT THROMDECTOMY POSSIBLE STENT SYNCOPE LUMBAR PAIN follow up Lumbar pain 1 M FU VIRAL SYMPTOMS Reason for Visit Intractable low back pain Unable to ambulate HNP (herniated nucleus pulposus), lumbar Lower back injury RSD lower limb DVT (deep venous thrombosis) DVT (deep venous thrombosis) DDD (degenerative disc disease), lumbar Low back pain DVT (deep venous thrombosis) Chief Complaint ACUTE BACK PAIN ACUTE BACK PAIN ACUTE BACK PAIN LEFT LEG PAIN LEFT LEG R/O DVT LUMBER SPINE Room 2 Hospital FU THROMDECTOMY POSSIBLE STENT THROMDECTOMY POSSIBLE STENT AM EKG THROMDECTOMY POSSIBLE STENT THROMDECTOMY POSSIBLE STENT SYNCOPE LUMBAR PAIN follow up Lumbar pain 1 M FU VIRAL SYMPTOMS S/P BILAT ILIAC VEIN STENTS FU Reason for Visit Intractable low back pain Unable to ambulate HNP (herniated nucleus pulposus),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
== END 2025-04-16 21:20 | disposition home or self-care (01) ==
PROVIDERS: Emergency Provider Emergency Medicine; PCP Family Medicine Geriatric Medicine; Visit Provider Emergency Medicine
DX: S09.90XA Unspecified injury of head, initial encounter (principal); Z79.01 Long term (current) use of anticoagulants; Z86.718 Personal history of other venous thrombosis and embolism; X58.XXXA Exposure to other specified factors, initial encounter
CPT/HCPCS: 70450; 99282

== ENCOUNTER 2025-05-16 20:03 | Emergency (ER) | payer OTHER, SELFPAY ==
[2025-05-16 20:04] VITALS: BP 141/98; PULSE 82; RESP 18; TEMP 36.8; O2SAT 98; BMI 30.2
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
--- NOTE | 2025-05-16 20:15 | CT_ITS ---
PROCEDURE: SPINE CERVICAL WITHOUT CONTRAS 05/16/2025 REASON FOR EXAM: TRAUMA TECHNIQUE: Cervical spine CT without contrast. Coronal and Sagittal reconstruction series were provided. One or more dose reduction techniques were used (e.g., Automated exposure control, adjustment of the mA and/or kV according to patient size, use of iterative reconstruction technique RADIATION DOSE SUMMARY: DLP: 600 mGycm COMPARISON: None. FINDINGS: Alignment: No traumatic listhesis. Vertebrae: No acute fracture. The vertebral body heights are maintained. Mild multilevel degenerative disc disease. Soft Tissues: No prevertebral hematoma. CT/Spine Cervical without Contras IMPRESSION: NO ACUTE CERVICAL FRACTURE. DEGENERATIVE CHANGES. Reading Location: [id number]
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
--- NOTE | 2025-05-16 20:15 | CT_ITS ---
PROCEDURE: SPINE CERVICAL WITHOUT CONTRAS 05/16/2025 REASON FOR EXAM: TRAUMA TECHNIQUE: Cervical spine CT without contrast. Coronal and Sagittal reconstruction series were provided. One or more dose reduction techniques were used (e.g., Automated exposure control, adjustment of the mA and/or kV according to patient size, use of iterative reconstruction technique RADIATION DOSE SUMMARY: DLP: 600 mGycm COMPARISON: None. FINDINGS: Alignment: No traumatic listhesis. Vertebrae: No acute fracture. The vertebral body heights are maintained. Mild multilevel degenerative disc disease. Soft Tissues: No prevertebral hematoma. CT/Spine Cervical without Contras IMPRESSION: NO ACUTE CERVICAL FRACTURE. DEGENERATIVE CHANGES. Reading Location: [id number]
--- NOTE | 2025-05-16 20:16 | EKG12_ITS ---
Test Reason : WEAKNESS Blood Pressure : */* mmHG Vent. Rate : 77 BPM Atrial Rate : 77 BPM P-R Int : 156 ms QRS Dur : 78 ms QT Int : 356 ms P-R-T Axes : 31 9 8 degrees QTcB Int : 402 ms Normal sinus rhythm Normal ECG Confirmed by MAGDALENE TRISTAN, TREVOR ([id number]), newspaper copy editor SARAH GOLDMAN ([id number]) on 05/18/2025 10:55:32 AM Referred By: Confirmed By: TREVOR DEL CASTILLO MD
--- NOTE | 2025-05-16 20:16 | EKG12_ITS ---
Test Reason : WEAKNESS Blood Pressure : */* mmHG Vent. Rate : 77 BPM Atrial Rate : 77 BPM P-R Int : 156 ms QRS Dur : 78 ms QT Int : 356 ms P-R-T Axes : 31 9 8 degrees QTcB Int : 402 ms Normal sinus rhythm Normal ECG Confirmed by MAGDALENE TRISTAN, TREVOR ([id number]), assignment editor SARAH GOLDMAN ([id number]) on 05/18/2025 10:55:32 AM Referred By: Confirmed By: TREVOR DEL CASTILLO MD
--- NOTE | 2025-05-16 20:17 | EDS_ITS ---
HPI HPI - Fall History of Present Illness Chief Complaint: Fall Informant: patient and spouse/S.O. Occured/Mechanism Occurred: Today Mechanism/Context: Yes same level fall and Yes prodromal Usually ambulates: Without assistance Pain/Injury Pain Location: head and neck Quality of Pain: Sharp Current Severity: Mild Maximum Severity: Mild Associated Symptoms Associated Symptoms: Positive for Loss of consciousness; Negative for Parast hesias, Weakness, Loss of function, Inability to ambulate or Amnesia Narrative Narrative: 49-year-old male history of DVT on Lovenox shots, hypertension anoxic codon for chronic back pain. Today friend is gave him a cannabis or marijuana gummy he did not realize it had to 100 mg cannabis in it. He said he took it later he became lightheaded and had a syncopal episode when he fell on the tile floor in his kitchen he had his head and says having some neck pain also. Denies any chest pain or abdominal pain. No recent vomiting or diarrhea. No fever or melena. Prior similar symptoms: No Recent Illness/Hospitalization: Yes PFSH PFSH Medical History Wears glasses Marijuana use History of steroid therapy Arthritis Chewing tobacco nicotine dependence in remission History of pain when walking Hx of edema Hx of cardiovascular stress test DDD (degenerative disc disease), lumbar DVT (deep venous thrombosis) RSD lower limb HNP (herniated nucleus pulposus), lumbar Hypertension Hypertension Home Medications ?Medication ?Instructions ?Recorded ?Last Taken ?Type paroxetine HCl 20 mg tablet 1 tablet PO DAILY 02/13/23 01/18/25 History aspirin 81 mg tablet,delayed 81 mg PO QDAY 01/02/25 History release enoxaparin 120 mg/0.8 mL 120 mg subcut BID 03/10/25 U nknown History subcutaneous syringe (Lovenox) oxycodone 5 mg tablet 5 - 10 mg (1 - 2 x 5 mg) PO Q8H 04/07/25 Unknown Rx PRN PRN Pain Score 4-10 7 days #42 tabs valsartan 160 1 tab PO DAILY 05/16/25 Unkn own History mg-hydrochlorothiazide 12.5 mg tablet Allergy/AdvReac Type Severity Reaction Status Date / Time No Known Allergies Allergy Verified 05/16/25 20:05 Family History Father CVA (cerebral vascular accident) Father Heart disease Other Bleeding disorder CAD (coronary artery disease) Hypertension Surgical History Hx of hernia repair History of femoral hernia repair Social History Smoking Status: Current some day smoker tobacco type: smokeless tobacco Smokeless tobacco user: chewing tobacco how long ago did patient quit smokin can every 4-5 days alcohol intake: never ROS ROS ED ROS Narrative Denies recent illness. Chronic back pain. Constitutional Constitutional ED: Denies chills or fever(s) Eyes Eyes: Denies blurry vision ENT ENT ED: Denies ear pain Cardiovascular Cardiovascular: Denies chest pain Respiratory/Chest Respiratory/Chest: Denies cough or dyspnea Gastrointestinal Gastrointestinal: Denies abdominal pain Genitourinary Genitourinary ED: Denies dysuria or hematuria Musculoskeletal Musculoskeletal: Denies arthralgias Integumentary Denies abscess Neurologic Neurologic: Reports headache(s) Psychiatric Psychiatric: Denies anxiety Endocrine Endocrinology: Denies polydipsia Hematologic/Lymphatic Hematologic/Lymphatic: Reports easy bleeding and easy bruising; Denies lymphadenopathy Allergic/Immunologic Allergic/Immunologic ED: Denies mouth swelling, tongue swelling or urticaria EXAM Physical Exam Narrative Exam Narrative: Well-appearing 49-year-old male. Vital signs stable afebrile. Pulse ox 90% on room air no hypoxia. No distress. at bedside. H EENT exam pupils round react to light. Extra motions are intact. Tenderness to top of his scalp. No contusion hematoma. No laceration. C-spine tender posteriorly. Trachea midline. Back nontender. Multiple tattoos. Lungs clear to auscultation bilaterally. Heart regular rhythm rate about 80 no murmur. Chest wall ribs nontender. Abdomen soft nontender. He does have bruising on his abdomen from Lovenox shots. No peritoneal signs. Pelvic girdle intact. Moving all 4 extremities. Nontender no deformity. Normal range of motion. Normal adobe developer strength. Normal dorsi plantarflexion. Neurologically he is awake and alert. Answer questions following commands. Const Vital Signs: 05/16/25 20:04 05/16/25 20:28 Temperature 98.3 F Temperature Source Oral Pulse Rate 82 Respiratory Rate 18 Respiratory Effort Normal Non-Labored Respiratory Depth Normal Respiratory Pattern Normal Blood Pressure 141/98 H Blood Pressure Mean 112 Pulse Ox 98 95 Oxygen Delivery Method Room Air Positive well nourished and well developed; Negative for cachectic, contractures or unkempt General Appearance ED: well developed and NAD; Negative for unkempt, cachectic or contractures Nutritional Appearance: Negative for cachectic HEENT Reports normocephalic HEENT Narrative: Scalp tenderness. trauma and contusion; Negative for hematoma or tenderness Eyes PERRL and EOMs intact bilaterally General Eye ED: Negative for pale conjunctiva or scleral icterus Neck no lymphadenopathy and supple Neck Narrative: Posterior C-spine tenderness. General: tenderness Chest Wall inspection of chest normal and palpation of chest normal Resp normal respiratory effort, no retractions and clear to auscultation bilaterally Cardio regular rate, regular rhythm, S1 normal heart sound, S2 normal heart sound and no murmurs GI non-tender, non-distended and no masses Auscultation: normoactive bowel sounds Palpation: soft; Negative for guarding or rebound tenderness present Back/Spine no CVA tenderness Neuro oriented x3, CN's II-XII intact bilaterally and moves all extremities [place] Coma Scale: document GCS findings Spontaneous Obeys Commands Oriented 15 Sensorium / Orientation: alert, oriented to person, oriented to place and oriented to time; Negative for orientation impaired Motor Exam: strength 5/5 throughout Psych mental status grossly normal and thought process normal Appearance: Negative for unkempt Skin Lesions: no lesions Rashes: no rashes MDM MDM MDM Narrative Medical decision making narrative: 49-year-old male with chronic back pain. Used a cannabis or marijuana gummy today. Had a syncopal episode. Prior to the episodes he felt well other than his studies or feeling lightheaded before he passed out. Denies any recent chest pain. When he fell he hit his head when he had neck pain. He is on Lovenox shots will get a CT of his head and neck. Screening labs and EKG due to his syncopal event. Repeat exam at around 9:48 PM. Patient doing well. We went over his CAT scan results and labs. He is comfortable being discharged to home. Tylenol for pain. Outpatient follow-up as needed. History & Record Review Discussion w/independent historian: Patient and Family Additional record(s) reviewed:: Prior inpatient record, Prior outpatient record, Prior ED visit and Prior labs Lab Data Attestation: I reviewed the patient's lab results. Lab results narrative: CBC unremarkable. White count of 6.4. H&H 13 and 40. Platelets 237. Chemistries unremarkable. Gap 10. Normal BUN and creatinine. Glucose 113. Labs: Laboratory Results - last 24 hr 05/16/25 20:37 WBC 6.4 RBC 4.58 L Hgb 13.6 Hct 40.1 MCV 87.6 MCH 29.7 MCHC 33.9 RDW Std Deviation 39.8 RDW Coeff of [place] 12.5 Plt Count 237 MPV 8.6 Immature Gran % (Auto) 0.300 Neut % (Auto) 71.5 H Lymph % (Auto) 16.4 L [place] % (Auto) 9.4 Eos % (Auto) 1.6 Baso % (Auto) 0.8 Absolute Neuts (auto) 4.6 Absolute Lymphs (auto) 1.05 Nucleated RBC % 0 Sodium 137 Potassium 3.7 Chloride 100 Carbon Dioxide 26.6 Anion Gap 10 BUN 12 Creatinine 0.98 Estim Creat Clear Calc 116.09 Est GFR (MDRD) Non-Af 94 BUN/Creatinine Ratio 12.3 Glucose 113 H Calcium 9.0 Radiography Diagnostic Testing: Clinical Impression(s) from Imaging Studies Brain CT 05/16/25 20:15 IMPRESSION: No acute intracranial finding. Reading Location: [facility] Cervical Spine CT 05/16/25 20:15 IMPRESSION: NO ACUTE CERVICAL FRACTURE. DEGENERATIVE CHANGES. Reading Location: [facility] Rhythm Strip Rhythm Strip: Sinus Rhythm Rate: 77 Ectopy: None EKG Initial EKG: Attestation: I personally reviewed and interpreted this EKG as follows: Interpretation: Sinus Rhythm and No Acute Injury Pattern Comments: Normal sinus rhythm rate of 77 no acute signs of IN nor ischemia. Discharge Plan Triage Chief Complaint: Fall ED Provider: Emerson Jones Dx/Rx/DC Orders Clinical Impression: Syncope, Closed head injury, Chronic anticoagulation, History of marijuana use Instructions: ED Head Injury (Adult) Prescriptions: No Action paroxetine HCl 20 mg tablet 1 tablet PO DAILY aspirin 81 mg tablet,delayed release (DR/EC) 81 mg PO QDAY enoxaparin [Lovenox] 120 mg/0.8 mL syringe 120 mg subcut BID valsartan-hydrochlorothiazide 160-12.5 mg tablet 1 tab PO DAILY oxycodone 5 mg tablet 5 - 10 mg PO Q8H PRN PRN (Reason: Pain Score 4-10) 7 Days Qty: 42 0RF Primary Care Provider: Rogelio Colvin Chi Referrals: Rogelio Colvin Chi, MD [Primary Care Provider] - As Needed Activity Restrictions/Additional Instructions: Plenty of fluids and rest. Follow-up with your doctor as needed. Return if worse. Tylenol for any head or neck pain. Print Language: Barbadian Disposition Disposition: Home, Self Care
[2025-05-16 20:28] VITALS: O2SAT 95
[2025-05-16 20:46] LABS: Hematocrit 40.1 % (40-54); Hemoglobin 13.6 g/dL (13.0-16.5); Immature Granulocytes Count 0.020 X10^3/uL (0.0-0.0); Mean Corp Hgb Conc 33.9 g/dL (32-36); Mean Corpuscular Volume 87.6 fL (80-94); Mean Platelet Vol. 8.6 fl (6.2-12.0); NRBC Flagged by Analyzer 0 % (0-5); Platelet Count 237 K/mm3 (150-450); RBC Distribution Width CV 12.5 % (11.6-14.6); RBC Distribution Width SD 39.8 fl (35.1-43.9); Red Blood Count 4.58 M/mm3 (4.6-6.2); White Blood Count 6.4 K/mm3 (4.4-11.0)
--- OUTSIDE RECORDS SUMMARY | 2025-05-16 20:46 | XMS RPT_ITS | CCD ---
Author Organization [facility] CliniSyfl Care Team Providers Care Catapult And Arresting Gear Officer Name Role Phone Dr. Rogelio Colvin Chi Primary Care Provider Dr. Jacek Raygoza Emergency Provider Jose D, Dr. Burt Admit Provider Dr. Javed Jeffery Attending Provider Jose D, Dr. Burt Other Provider DR CJ LEIVA Admitting Unavailable ROGELIO COLVIN MD Referring Unavailable ROGELIO COLVIN Consulting Unavailable DR CJ LEIVA Attending Unavailable DR CJ LEIVA Primary Care Unavailable PROVIDER, UNKNOWN Consulting Unavailable Dr. Delta Garcia Attending Provider Dr. Rogelio Colvin Chi Referring Provider Dr. Tariq Flores Attending Provider Dr. Zack Smiley Attending Provider Dr. Bryn Mccall Attending Provider Dr. Bryn Mccall Admit Provider Dr. Bryn Mccall Other Provider JORGE A Rebollar Attending Provider Dr. Rogelio Colvin Chi Primary Care Provider Dr. Jacek Raygoza Emergency Provider Dr. Javed Jeffery Admit Provider Dr. Javed Jeffery Attending Provider Jose D, Dr. Burt Other Provider Dr. Delta Garcia Attending Provider JORGE A Javier Referring Provider Vinicius, Dr. Rogelio Mccray Referring Provider Dr. Tariq Flores Attending Provider [phone] Dr. Zack Smiley Attending Provider [phone] Bryn Mccall Attending Provider [phone] Bryn Mccall Admit Provider Dr. Bryn Mccall Other Provider JORGE A Rebollar Attending Provider [phone] Dr. Judah Srinivasan Attending Provider [phone] Dr. Judah Srinivasan Referring Provider [phone] Dr. Bryn Mccall Referring Provider 1([facility])[phone] JORGE A Reynolds Attending Provider Vinicius, Dr. Rogelio Mccray Primary Care Provider 1([facility])[phone] JORGE A Reynolds Referring Provider Vinicius, Dr. Rogelio Mccray Primary Care Provider Dr. Bryn Mccall Attending Provider [phone] Vinicius, Dr. Rogelio Mccray Referring Provider Dr. Tariq Flores Attending Provider [phone] Vinicius, Dr. Rogelio Mccray Primary Care Provider Vinicius, Dr. Rogelio Mccray Referring Provider Dr. Bryn Mccall Attending Provider [phone] Bryn Mccall Referring Provider [phone] Bryn Mccall Other Provider JORGE A Reynolds Attending Provider Vinicius, Dr. Rogelio Mccray Primary Care Provider Dr. Bryn Mccall Attending Provider [phone] JORGE A Jacques Referring Provider 1([facility])-[phone] Vinicius, Dr. Rogelio Mccray Referring Provider JORGE A Jacques Attending Provider [phone] Generic Provider MD, No Assigned Pcp Primary Car e Provider Unavailable NAYELI MENDY Chaparro Attending Unavailable GENERIC PROVIDER, NO ASSIGNED PCP Primary Care Unavailable Vinicius TRITSAN, Dr. Rogelio Mccray Primary Care Provider [phone] Tami BANKS, Dr. Arcos Attending Provider Tami BANSK, Dr. Arcso Emergency Provider Stefany TRISTAN, Dr. Clemente Attending Provider Stefany TRISTAN, Dr. Clemente Referring Provider Vinicius TRISTAN, Dr. Rogelio Mccray Attending Provider Vinicius TRISTAN, Dr. Rogelio Mccray Referring Provider Georgie JULES, Teena Attending Provider [phone] Georgie JULES, Teena Referring Provider [phone] Stefany TRISTAN, Dr. Clemente Other Provider [phone] Stefany TRISTAN, Dr. Clemente Admit Provider [phone] Nadia Willis Attending Provider Sherice TRISTAN, Dr. Dixon Attending Provider [phone] Bryn Victor DO Emergency Provider [phone] Vinicius TRISTAN, Dr. Rogelio Mccray Primary Care Provider [phone] Vinicius TRISTAN, Dr. Rogelio Mccray Referring Provider Stefany TRISTAN, Dr. Clemente Attending Provider [phone] Stefany TRISTAN, Dr. Clemente Referring Provider Dr. Bryn Victor DO Attending Provider Dr. Bryn Victor DO Referring Provider Nadia Willis Referring Provider Timothy TRISTAN, Dr. Razo Attending Provider Robert TRISTAN, Dr. Norman Emergency Provider [phone] Teena Jacques Attending Unavailable Vinicius, Rogelio Chi Primary Care Unavailable Bryn Mccall Attending Unavailable Vinicius, Rogelio Chi Referring Unavailable Vinicius, Rogelio Chi Primary Care Unavailable Vinicius, Rogelio Chi Referring Unavailable Jacques, Teena Attending Unavailable Vinicius, Rogelio Chi Primary Care Unavailable [place], Bryn Attending Unavailable Stefany, Bryn Referring Unavailable Stefany, Bryn Admitting Unavailable Vinicius, Rogelio Chi Primary Care Unavailable Jacques, Teena Attending Unavailable Vinicius, Rogelio Chi Referring Unavailable Vinicius, Rogelio Chi Primary Care Unavailable Vinicius, Rogelio Chi Primary Care Unavailable Isrrael Garrett Attending Unavailable Dimas Gill Attending Unavailable Vinicius, Rogelio Chi Primary Care Unavailable Vinicius, Rogelio Chi Primary Care Unavailable [place], Bryn Attending Unavailable Vinicius, Rogelio Chi Referring Unavailable Dung Aguirre Attending Unavailable Vinicius, Rogelio Chi Referring Unavailable Vinicius, Rogelio Chi Primary Care Unavailable [place], Bryn Referring Unavailable Stefany, Bryn Attending Unavailable Stefany, Bryn Admitting Unavailable Stefany, Bryn Consulting Unavailable Vinicius, Rogelio Chi Primary Care Unavailable Jacques, Teena Attending Unavailable [place], Bryn Attending Unavailable Stefany, Bryn Referring Unavailable [place], Bryn Consulting Unavailable Vinicius, Rogelio Chi Primary Care Unavailable Stefany, Bryn Attending Unavailable Schwiger, Bryn Referring Unavailable Vinicius, Rogelio Chi Primary Care Unavailable Stefany, Bryn Referring Unavailable [place], Bryn Admitting Unavailable Stefany, Bryn Consulting Unavailable Jacques, Teena Attending Unavailable Vinicius, Rogelio Chi Primary Care Unavailable Jacques, Teena Attending Unavailable Vinicius, Rogelio Chi Referring Unavailable Vinicius, Rogelio Chi Primary Care Unavailable Zack Smiley Attending Unavailable Vinicius, Rogelio Chi Primary Care Unavailable Nadia Brandt Attending Unavailable Vinicius, Rogelio Chi Referring Unavailable Vinicius, Rogelio Chi Primary Care Unavailable Schwiger, Bryn Attending Unavailable Vinicius, Rogelio Chi Primary Care Unavailable Emerson Jones Attending Unavailable Vinicius, Rogelio Chi Primary Care Unavailable Jacques, Teena Referring Unavailable Jacques, Teena Attending Unavailable Vinicius, Rogelio Chi Primary Care Unavailable Vinicius, Rogelio Chi Primary Care Unavailable Stefany, Bryn Referring Unavailable [place], Bryn Attending Unavailable Vinicius, Rogelio Chi Primary Care Unavailable Vinicius, Rogelio Chi Referring Unavailable Vinicius, Rogelio Chi Attending Unavailable Vinicius, Rogelio Chi Primary Care Unavailable Vinicius, Rogelio Chi Referring Unavailable Vinicius, Rogelio Chi Attending Unavailable Jacques, Teena Attending Unavailable Jacques, Teena Referring Unavailable Vinicius, Rogelio Chi Primary Care Unavailable Stefany, Bryn Referring Unavailable Stefany, Bryn Attending Unavailable Vinicius, Rogelio Chi Primary Care Unavailable Stefany, Bryn Referring Unavailable Stefany, Bryn Attending Unavailable [place], Bryn Consulting Unavailable Vinicius, Rogelio Chi Primary Care Unavailable Vinicius, Rogelio Chi Primary Care Unavailable Bryn Mccall Referring Unavailable Bryn Mccall Attending Unavailable Bryn Mccall Attending Unavailable Vinicius, Rogelio Chi Primary Care Unavailable Teena Jacques Referring Unavailable Bryn Mccall Attending Unavailable Bryn Mccall Referring Unavailable Bryn Mccall Admitting Unavailable Vinicius, Rogelio Chi Primary Care Unavailable Nadia Brandt Attending Unavailable Nadia Brandt Referring Unavailable Vinicius, Rogelio Chi Primary Care [...] (20 sources) Low Molecular Weight Heparin Start: 03-10-2025 Enoxaparin (Lovenox) 120 mg/0.8 mL syringe Active 120 mg SC TWICE A DAY March 10, 2025 11:17am Start: 01-15-2025 End: 03-10-2025 Enoxaparin (Lovenox) 120 mg/ 0.8 mL syringe Discontinued 120 mg SC Q12H 48 30 March 04, 2025 8:55am March 10, 2025 11:18am Start: 03-21-2023 End: 04-17-2024 Enoxaparin (Lovenox) 100 mg/ mL syringe Discontinued 100 mg SC Q12H 180 90 April 17, 2023 12:13pm April 17, 2024 9:51am ibuprofen 600 mg oral tablet (3 sources) Nonsteroidal Anti-inflammatory Drug Start: 12-07-2022 Ibuprofen Active 600 MG PO Q8H 0 December 07, 2022 12:00am [id number], every 8 hourly for 3 days and then as needed as needed for muscle pain methylPREDNISolone (2 sources) Corticosteroid Start: 10-18-2024 methylPREDNISolone (Medrol, Mata,) 4 mg tablets Indications: Lumbar strain, initial encounter Follow schedule on package instructions 1 tablet 10/18/2024 Active oxyCODONE hydrochloride 5 mg oral tablet (10 sources) Opioid Agonist Start: 03-04-2025 End: 04-07-2025 take 5-10 mg by mouth every eight hours as needed for pain Oxycodone 5 mg tablet Active 5 - 10 mg PO EVERY 8 HOURS NEEDED as needed for Pain Score 4-10 42 7 April 07, 2025 Start: 02-09-2025 End: 02-23-2025 take 1 tablet by mouth every six hours as needed for pain Oxycodone 5 mg tablet Discontinued 5 mg PO EVERY 6 HOURS as needed for pain 28 7 February 16, 2025 February 22, 2025 12:00am February 23, 2025 12:05am Start: 01-20-2025 End: 01-27-2025 take 1 tablet [...] daily Pantoprazole Active 40 MG PO DAILY December 07, 2022 1:00am PARoxetine hydrochloride 20 mg oral tablet (11 sources) Serotonin Reuptake Inhibitor Start: 02-13-2023 Paroxetine Hcl 20 mg tablet Active 1 NMA PO DAILY February 13, 2023 12:00am pregabalin 75 mg oral capsule (6 sources) Start: 01-04-2023 take 75 mg by mouth four times daily Pregabalin Active 75 MG PO 4 TIMES DAILY January 04, 2023 1:00am Completed/Discontinued Medications Medication Drug Class(es) Dates Sig (Normalized) Sig (Original) acetaminophen 500 mg oral tablet (2 sources) Start: 03-04-2025 End: 03-10-2025 take 2 tablets by mouth every eight hours Acetaminophen 500 mg Tablet Discontinued 1000 mg PO EVERY 8 HOURS 0 March 04, 2025 12:00am March 10, 2025 11:17am Start: 10-18-2024 End: 10-18-2024 take 975 mg by mouth once as needed for pain 975 mg, oral, Once, On 10/18/24 at 2220, For 1 dose, If ordered PRN for pain, nurse is permitted to administer this medication for higher pain scores based on patient preference? Yes apixaban 5 mg oral tablet (15 sources) Factor Xa Inhibitor Start: 12-31-2022 End: 01-04-2023 take 1 tablet by mouth twice daily Apixaban (Eliquis Dvt-Pe Treat 30d Start) 5 mg (74 tabs) tablets,dose pack Discontinued 5 mg PO TWICE A DAY December 31, 2022 1:00am January 04, 2023 10:19am baclofen 10 mg oral tablet (1 source) gamma-Aminobutyric Acid-ergic Agonist Start: 02-16-2025 End: 03-02-2025 take 1 tablet by mouth twice daily Baclofen 10 mg tablet Discontinued 10 mg PO TWICE A DAY February 16, 2025 12:00am March 02, 2025 4:28pm benzonatate 100 mg oral capsule (4 sources) Non-narcotic Antitussive Start: 01-20-2025 End: 01-27-2025 take 1 capsule by mouth three times daily as needed for cough Benzonatate 100 mg Capsule Discontinued 100 mg PO 3 TIMES DAILY NEEDED as needed for Cough 42 14 January 20, 2025 12:00am January 27, 2025 1:44pm cephalexin 500 mg oral capsule (6 sources) Cephalosporin Antibacterial Start: 05-20-2023 End: 10-16-2023 take 1 capsule by mouth three times daily Cephalexin 500 mg capsule Discontinued 500 mg PO 3 times daily May 20, 2023 12:00am October 16, 2023 12:54pm clopidogrel 75 mg oral tablet (5 sources) P2Y12 Platelet Inhibitor Start: 10-16-2023 End: 01-02-2025 take 1 tablet by mouth once daily Clopidogrel (Plavix) 75 mg tablet Discontinued 75 mg PO DAILY October 16, 2023 1:00am January 02, 2025 11:40am dicyclomine hydrochloride 20 mg oral tablet (4 sources) Anticholinergic Start: 11-04-2024 End: 01-02-2025 take 1 tablet by mouth three times daily as needed for pain Dicyclomine 20 mg tablet Discontinued 20 mg PO THREE TIMES A DAY as needed for abdominal pain November 04, 2024 3:00am January 02, 2025 11:40am docusate sodium 100 mg oral capsule (1 source) Start: 03-04-2025 End: 03-10-2025 take 1 capsule by mouth twice daily as needed for constipation Docusate Sodium 100 mg Capsule Discontinued 100 mg PO TWICE DAILY NEEDED as needed for Constipation March 04, 2025 12:00am March 10, 2025 11:17am Enoxaparin (Lovenox) 120 mg/0.8 mL syringe (4 sources) Start: 01-14-2025 End: 01-15-2025 Enoxaparin (Lovenox) 120 mg/0.8 mL syringe Discontinued 120 mg SC Q12H 48 January 14, 2025 1:00am January 15, 2025 2:51pm gabapentin 300 mg oral capsule (1 source) Anti-epileptic Agent Start: 02-16-2025 End: 03-02-2025 take 1 capsule by mouth three times daily Gabapentin 300 mg capsule Discontinued 300 mg PO THREE TIMES A DAY February 16, 2025 12:00am March 02, 2025 4:28pm hydroCHLOROthiazide 12.5 mg / losartan potassium 100 mg oral tablet (17 sources) Thiazide Diuretic, Angiotensin 2 Receptor Lori Start: 03-07-2016 End: 01-04-2023 Losartan/Hydroc hlorothiazide (Hyzaar 100-12.5 Tablet) 1 TAB tablet Discontinued 1 {tbl} PO DAILY March 07, 2016 12:00am January 04, 2023 3:45pm hydroCHLOROthiazide 12.5 mg / valsartan 160 mg oral tablet (11 sources) Thiazide Diuretic, Angiotensin 2 Receptor Lori Start: 02-13-2023 End: 03-10-2025 Valsartan-Deer chlorothiazide 160-12.5 mg tablet Discontinued 1 NMA PO DAILY February 13, 2023 12:00am March 10, 2025 11:18am Start: 02-13-2023 take 1 tablet by rogelio th once daily Valsartan-Hydrochlorothiazide Active 1 T AB PO DAILY February 12, 2023 11:00pm Start: 02-13-2023 Valsartan-Hydr ochlorothiazide Active TAB PO February 13, 2023 12:00am 1 ml ketorolac tromethamine 30 mg/ml injection (3 sources) Nonsteroidal Anti-inflammatory Drug, Cyclooxygenase Inhibitor Start: 10-18-2024 End: 10-18-2024 inject 30 mg by intramuscular injection once [...] 5 days. 20 tablet 10/18/2024 10/23/2024 Active methocarbamol 750 mg oral tablet (3 sources) Muscle Relaxant Start: 03-04-2025 End: 03-10-2025 Methocarbamol 750 mg Tablet Discontinued 1000 mg PO EVERY 6 HOURS NEEDED as needed for Muscle Spasm 28 7 March 04, 2025 8:48am March 10, 2025 11:18am Start: 10-18-2024 End: 10-28-2024 take 1 tablet by mouth twice daily methocarbamol (Robaxin) 500 mg tablet Indications: Lumbar strain, initial encounter Take 1 tablet (500 mg) by mouth 2 times a day for 10 days. 20 tablet 10/18/2024 10/28/2024 Active ondansetron 4 mg disintegrating oral tablet (13 sources) Serotonin-3 Receptor Antagonist Start: 11-04-2024 End: [...] day 9) tiZANidine 2 mg oral tablet (16 sources) Central alpha-2 Adrenergic Agonist Start: 12-07-2022 [...] 2023 2:45pm valsartan 160 mg oral tablet (14 sources) Angiotensin 2 Receptor Lori Start: 01-04-2023 End: 02-13-2023 take 1 tablet by mouth once daily Valsartan 160 mg tablet Discontinued 160 mg PO DAILY January 04, 2023 1:00am February 13, 2023 2:24pm valsartan/hydrochlorothiazide 160/12.5 Problems Active Problems Problem Classification Problem Date Documented Da te Episodic/Chronic Essential hypertension (19 sources) Hypertensive disorder; Translations: [Essential (primary) hypertension] 12-06-2022 Chronic Fracture of upper limb (6 sources) Open fracture finger proximal phalanx; Translations: [Displaced fracture of proximal phalanx of unspecified finger, initial encounter for open fracture] 05-20-2023 Episodic Intestinal infection (4 sources) Viral gastroenteritis; Translations: [Viral intestinal infection, unspecified] 11-12-2024 Episodic Intracranial injury (9 sources) Concussion injury of brain; Translations: [Closed head injury with concussion] 04-06-2023 Episodic Other aftercare (10 sources) Surgical follow-up; Translations: [Encounter for surgical aftercare following surgery on the circulatory system] 05-02-2023 Episodic Other aftercare (1 source) Long-term current use of anticoagulant; Translations: [jail (current) use of anticoagulants] 04-16-2025 Episodic Other aftercare (1 source) Encounter for surgical aftercare following surgery on the circulatory system; Translations: [Encounter for surgical aftercare following surgery on the circulatory system] Onset: 02-04-2025 Episodic Other congenital anomalies (2 sources) Spinal stenosis of lumbar region; Translations: [Other congenital malformations of spine, not associated with scoliosis] 03-23-2025 Chronic Other connective tissue disease (15 sources) Pain in lower limb; Translations: [Pain in left leg] 12-31-2022 Episodic Other connective tissue disease (8 sources) Pain in left lower limb; Translations: [Pain in left leg] 01-06-2025 Episodic Other diseases of veins and lymphatics (15 sources) Occlusion of iliac vein; Translations: [Compression of vein] 05-02-2023 Episodic Other diseases of veins and lymphatics (5 sources) Compression of vein; Translations: [Compression of vein] Onset: 01-22-2025 05-02-2023 Episodic Other injuries and conditions due to external causes (14 sources) Lower back injury; Translations: [Unspecified injury of lower back, initial encounter] 01-04-2023 Episodic Other injuries and conditions due to external causes (1 source) Closed injury of head; Translations: [Unspecified injury of head, initial encounter] 04-16-2025 Episodic Other injuries and conditions due to external causes (1 source) Unspecified injury of head, initial encounter; Translations: [Unspecified injury of head, initial encounter] Onset: 04-20-2025 Episodic Other nervous system disorders (17 sources) Unable to walk; Translations: [Difficulty in walking, not elsewhere classified] 12-06-2022 Chronic Other nervous system disorders (8 sources) Difficulty in walking, not elsewhere classified; Translations: [Difficulty in walking] 12-06-2022 Chronic Other nervous system disorders (14 sources) Complex regional pain syndrome of lower limb; Translations: [Complex regional pain syndrome I of unspecified lower limb] 01-04-2023 Chronic Other nervous system disorders (5 sources) Complex regional pain syndrome I of unspecified lower limb; Translations: [Reflex sympathetic dystrophy of the lower limb] 01-04-2023 Chronic Other nervous system disorders (4 sources) Postoperative pain ; Translations: [Other acute [...] Onset: 12-15-2024 12-31-2022 Episodic Pulmonary heart disease (12 sources) Pulmonary embolism; Translations: [Other pulmonary embolism [...] initial encounter] Onset: 10-18-2024 10-18-2024 Episodic Syncope (12 sources) Vasovagal syncope; Translations: [Syncope and collapse] 01-19-2023 Episodic Unclassified (4 sources) M51.36 - Other intervertebral disc degeneration, lumbar region,M54.10 - Radiculopathy, site unspecified Unclassified (3 sources) M51.36 - Other intervertebral [...] Onset: 11-27-2024 Episodic Open wounds of extremities (17 sources) Avulsion injury of fingernail; Translations: [Unspecified open wound of unspecified finger with damage to nail, initial encounter] Onset: 05-08-2024 05-20-2023 Episodic Other connective tissue disease (1 source) Achilles tendinitis, right leg; Translations: [Achilles tendinitis, right leg] Onset: 12-29-2024 Episodic Other connective tissue disease (1 source) Pain in right lower leg; Translations: [Pain in right lower leg] Onset: 10-13-2024 Episodic Other injuries and conditions due to external causes (8 sources) Unspecified injury of lower back, initial encounter; Translations: [Other injury of other sites of trunk] Onset: 01-15-2025 01-04-2023 Episodic Results Test Name Value Interpretation Reference Range Facility Brain/Head without Contrasto n 04-16-2025 Brain/Head without Contrast [facility] Imaging Services [address] [place] [address] Brain/Head without Contrast MR#: [id number] Acct: [id number] Name: DELTA CHEEK JrChristine Rep #: [id number] : 1975 M 49 From: Delta Prakash PCP: Dr. Rogelio Colvin MD Status: REG ER Study: Brain/Head without Contrast Date of Exam: 04/05 Exam# [id number] Ordering Dr: Emerson Jones MD PROCEDURE: BRAIN/HEAD WITHOUT CONTRAST 04/16/2025 REASON FOR EXAM: HEAD TRAUMA ON LOVENOX. TECHNIQUE: Head CT without intravenous contrast. Coronal and Sagittal reconstruction series were provided. One or more dose reduction techniques were used (e.g., Automated exposure control, adjustment of the mA and/or kV according to patient size, use of iterative reconstruction technique. COMPARISON: 04/06/2023 FINDINGS: No evidence of acute intracranial hemorrhage, midline shift or mass effect. No definite CT evidence of acute territorial cortical infarction. No hydrocephalus. Cerebral volume is age-appropriate. Calvarium is intact. Paranasal sinuses and mastoid air cells are clear. CT/Brain/Head without Contrast IMPRESSION: No acute intracranial abnormality. Reading [facility] CC: Dr. Emerson Jones MD; Dr. Rogelio Colvin MD Tax Advisor: Signed Normal [facility] Emergency Department Summary on 04-16-2025 Emergency Department Summary [facility] Medical Records Department [address] [place] [address] Emergency Department Summary 04/16/25 MR#: [id number] Acct: [id number] Name: ADIADELTA Macias JrChristine Rep #: [id number] : 1975 49 From: Emerson Jones MD PCP: Dr. Rogelio Colvin MD Status:REG ER Location: ED HPI History of Present Illness Chief Complaint: Head Injury Informant: patient and spouse/S.O. Onset/Context/Richard angelo Onset: Today and Hours Mechanism/Context: Blunt Injury Current Severity: Mild Maximum Severity: Mild Associated Symptoms Associated Symptoms: Negative for Parasthesias, Weakness, Loss of function, Inability to ambulate, Loss of consciousness or Amnesia Narrative Narrative: 49-year-old male on Lovenox secondary to DVT. Was working at home stood up hit his head on a metal shelf around 430 today. Had a headache since that time. Came in to be evaluated. Denies any vomiting. Denies any other injuries. Prior similar symptoms: Yes Recent Illness/Hospitaliz ation: Yes PFSH PFSH Medical History Wears glasses Marijuana use [...] release enoxaparin 120 mg/0.8 mL 120 mg subcut BID 03/10/25 Unknown History subcutaneous syringe (Lovenox) oxycodone 5 mg tablet 5 - 10 mg (1 - 2 x 5 mg) PO Q8H Unknown Rx PRN PRN Pain Score 4-10 7 days #42 tabs Allergy/AdvReac Type Severity Reaction Status Date / Time No Known Allergies Allergy Verified 04/16/25 20:05 Family History Father CVA (cerebral vascular accident) Father Heart disease Other Bleeding disorder CAD (coronary artery disease) Hypertension Surgical History Hx of hernia repair History of femoral hernia repair Social History Smoking Status: Never smoker Smokeless tobacco user: chewing tobacco how long ago did patient quit smokin can every 4-5 days alcohol intake: never ROS ROS ED ROS Narrative Headache post head trauma. No recent illness Constitutional Constitutional ED: Denies chills or fever(s) Eyes Eyes: Denies blurry vision ENT ENT ED: Denies ear pain Cardiovascular Cardiovascular: Denies chest pain Respiratory/Chest Respiratory/Chest: Denies cough Gastrointestinal Gastrointestinal: Denies abdominal pain, nausea or vomiting Genitourinary Genitourinary ED: Denies dysuria Musculoskeletal Musculoskeletal: Denies arthralgias Integumentary Denies abscess Neurologic Neurologic: Reports headache(s) Psychiatric Psychiatric: Denies anxiety Endocrine Endocrinology: Denies cold intolerance Hematologic/Lympha tic Hematologic/Lympha tic: Denies lymphadenopathy Allergic/Immunolog ic Allergic/Immunolog ic ED: Denies mouth swelling, tongue swelling or urticaria EXAM Physical Exam Narrative Exam Narrative: 49-year-old male no acute distress. Vital signs stable afebrile. No acute distress. H EENT exam pupils round reactive light. No facial trauma. Tenderness top of his head no hematoma no laceration. C-spine neck nontender. Back nontender. Lungs clear. Heart regular rhythm rate about 80 no murmur. Chest wall and ribs nontender. Abdomen soft nontender. Moving all 4 extremities. No deformity. Nontender. Neurologically is awake alert. Answer questions following commands. GCS 15. Const Vital Signs: 04/16/25 20:05 04/16/25 20:29 Temperature 98.1 F Temperature Source Oral Pulse Rate 84 Respiratory Rate 16 Respiratory Effort Normal Blood Pressure 141/106 H Blood Pressure Mean 117 Pulse Ox 100 Oxygen Delivery Method Room Air Room Air Positive well nourished and well developed; Negative for cachectic, contractures or unkempt General Appearance ED: well developed and NAD; Negative for unkempt, cachectic or contractures Nutritional Appearance: Negative for cachectic HEENT HEENT Narrative: Posterior scalp tenderness. No hematoma. No laceration. No blood. trauma and tenderness Eyes PERRL and EOMs intact bilaterally Neck full ROM General: Negative for tenderness Chest Wall inspection of chest normal and palpation of chest normal Resp normal respirato (more content not included)... Normal [facility] Orthopedic Visit Reporton Orthopedic Visit Report [facility] [address] [place] [address] OFFICE VISIT Date of Service: 03/20/25 MR#: [id number] Acct: [id number] Name: DELTA CHEEK Jr. Rep #: [id number] : 1975 Provider: Dr. Dung Aguirre MD Age/Sex: 49/M Location: [facility] Status: Signed with Addenda ADDENDUM by Dr. [...] by me, Dr. Dung Aguirre MD 03/20/25 6229. Part of today???s visit was documented by Fang ZEE, acting as scribe. DELTA CHEEK is a [...] by Dr. Flores. 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 Normal [facility] MR/BMS.BVLenny 03-10-2025 MR/BMS.BVS [facility] Surgery [address] [place] [address] OFFICE VISIT Date of Service: 03/10/25 MR#: [id number] Acct: [id number] Name: DELTA CHEEK Jr. Rep #: [id number] : 1975 Provider: JORGE A Schmitt Age/Sex: 49/M Location: [facility] Status: Signed Intake Vital Signs 01/26/25 08:20 [...] 3-4 WK FU Chief Complaint: Follow Up Signal Timer Required: No Is patient in pain?: Yes [...] History (Updated 03/10/25 @ 11:15 by Sherron Bradford) Smoking Status: Never smoker Smokeless tobacco user: [...] no ac (more content not included)... Normal [facility] Spine Lumbar (Routine)on Spine Lumbar (Routine) [facility] Imaging Services [address] [place] [address] Spine Lumbar (Routine) MR#: [id number] Acct: [id number] Name: DELTA CHEEK Jr. Rep #: [id number] : 1975 [address] 49 From: Eugenio uEceda MD PCP: Dr. Rogelio Colvin MD Status: [facility] Study: Spine Lumbar (Routine) Date of Exam: 03/09/25 Exam# [id number] Ordering Dr: Nadia Brandt PA PROCEDURE: SPINE LUMBAR (ROUTINE) 03/09/2025 REASON FOR [...] 0.3 by 0.7 cm, axial T2 image 14/38. There is moderate right mild left lateral [...] JORGE A Bauman; Dr. Rogelio Colvin MD Tax Advisor: Signed Normal [facility] Activated partial thrombopla stin time (aPTT) in platelet poor plasma by coagulation aOrdered By: Bryn Mccall on 03-04-2025 aPTT Coag (PPP) [Time] 63.9 s High 24.1-36.2 [facility] Partial Thromboplast Timeon 03-04-2025 aPTT Coag (Bld) [Time] 63.9 s High 24.1-36.2 [facility] Comment on above: Order Comment: Comme nts: heparin gtt Performed By: #### L 300.4310 ####[facility] [address] [place], [place], [id number] Absolute lymphocyte countOrd ered By: Bryn Mccall on 03-03-2025 Lymphocytes Auto (Unsp spec) [#/Vol] 1.31 10*3/uL 0.83-4.51 [facility] Absolute neutrophil countOrd ered By: Bryn Mccall on 03-03-2025 Neutrophils (Bld) [#/Vol] 2.1 10*3/uL 2.0-7.7 [facility] Anion gap in Serum or Plasma Ordered By: Bryn Mccall on 03-03-2025 Anion gap [Moles/Vol] 10 mmol/L 5-15 [facility] Automated lymphocyte count a s percentage of total leukocytesOrdered By: Bryn Mccall on 03-03-2025 Lymphocytes/100 WBC Auto (Unsp spec) 33.1 % 19-41 [facility] BUN/creatinine ratioOrdered By: Bryn Mccall on 03-03-2025 Urea nitrogen/Creatinine [Mass ratio] 13.1 mg/mg 10- [facility] Basic Metabolic Profile (BMP )on 03-03-2025 BUN/CRE 13.1 RATIO Normal - [facility] Comment on above: Performed By: #### L 9100.0100 #### [facility] [address] [place], [place], [id number] Calcium [Mass/Vol] 9.1 mg/dL Normal 7.6-11.0 [facility] Comment on above: Performed By: #### L 9100.0100 #### [facility] [address] [place], [address] Chloride [Moles/Vol] 104 mmol/L Normal 98-108 [facility] Comment on above: Performed By: #### L 00.0100 #### [facility] [address] [place], [address] CO2 [Moles/Vol] 26.1 mmol/L Normal 21.0-32.0 [facility] Comment on above: Performed By: #### L 00.0100 #### [facility] [address] [place], [address] Creatinine [Mass/Vol] 0.94 mg/dL Normal 0.70-1.20 [facility] Comment on above: Performed By: #### L 00.0100 #### [facility] [address] [place], [address] ECRCL 125.08 ml/min Normal 50-250 [facility] Comment on above: Performed By: #### L 9100.0100 #### [facility] [address] [place], [address] GAP 10 Normal 5-15 [facility] Comment on above: Performed By: #### L 9100.0100 #### [facility] [address] [place], [address] GFR/1.73 sq M.predicted among non-blacks MDRD (S/P/Bld) [Vol rate/Area] 98 mL/min/{1.73_m2} Normal >60 [facility] Comment on above: Result Comment: mL/m in/1.73m2 CKD-EPI Creatinine Equation (2020) Performed By: #### L 9100.0100 #### [facility] [address] [place], [address] Glucose [Mass/Vol] 99 mg/dL Normal 70-99 [facility] Comment on above: Performed By: #### L 00.0100 #### [facility] [address] [place], [address] Potassium [Moles/Vol] 3.9 mmol/L Normal 3.3-5.1 [facility] Comment on above: Performed By: #### L 9099.0100 #### [facility] [address] [place], [address] Sodium [Moles/Vol] 140 mmol/L Normal 133-145 [facility] Comment on above: Performed By: #### L 9099.0100 #### [facility] [address] [place], [address] Urea nitrogen [Mass/Vol] 12 mg/dL Normal 4-19 [facility] Comment on above: Performed By: #### L 9099.0100 #### [facility] [address] [place], [address] Basophil percentageOrdered B y: Bryn Mccall on 03-03-2025 Basophils/100 WBC (Bld) 1.0 % 0-1 [facility] CBC W/Diff, Automatedon 02-11 Absolute Lymph 1.31 X10 3/uL Normal 0.83-4.51 [facility] Comment on above: Performed By: #### L 00.0100 #### [facility] [address] [place], [address] Absolute Neut 2.1 X10 3/uL Normal 2.0-7.7 [facility] Comment on above: Performed By: #### L 00.0100 #### [facility] [address] [place], [address] Basophils/100 WBC (Bld) 1.0 % Normal 0-1 [facility] Comment on above: Performed By: #### L 00.0100 #### [facility] [address] [place], [address] Eosinophils/100 WBC (Bld) 1.5 % Normal 0-5 [facility] Comment on above: Performed By: #### L 9099.0100 #### [facility] [address] [place], [address] Erythrocyte distribution width (RBC) [Ratio] 12.3 % Normal 11.6-14.6 [facility] Comment on above: Performed By: #### L 9099.0100 #### [facility] [address] [place], [address] Hematocrit (Bld) [Volume fraction] 38.6 % Low 40-54 [facility] Comment on above: Performed By: #### L 9099.0100 #### [facility] [address] [place], [address] Hemoglobin (Bld) [Mass/Vol] 13.0 g/dL Normal 13.0-16.5 [facility] Comment on above: Performed By: #### L 9099.0100 #### [facility] [address] [place], [address] IG% 0.300 Normal 0.0-0.9 [facility] Comment on above: Result Comment: IG% - Immature Granulocytes (promyelocytes, myelocytes and metamyelocytes) > 1% indicates that a LEFT SHIFT is Present. Performed By: #### L 9099.0100 #### [facility] [address] [place], [address] Lymphocytes/100 WBC (Bld) 33.1 % Normal 19-41 [facility] Comment on above: Performed By: #### L 9099.0100 #### [facility] [address] [place], [address] MCH (RBC) [Entitic mass] 29.3 pg Normal 27.0-32.0 [facility] Comment on above: Performed By: #### L 00.0100 #### [facility] [address] [place], [address] MCHC (RBC) [Mass/Vol] 33.7 g/dL Normal 32-36 [facility] Comment on above: Performed By: #### L 9099.0100 #### [facility] [address] [place], [address] MCV (RBC) [Entitic vol] 87.1 fL Normal 80-94 [facility] Comment on above: Performed By: #### L 9099.0100 #### [facility] [address] [place], [address] Monocytes/100 WBC (Bld) 10.9 % High 0-10 [facility] Comment on above: Performed By: #### L 9099.0100 #### [facility] [address] [place], [address] Neutrophils/100 WBC (Bld) 53.2 % Normal 47-70 [facility] Comment on above: Performed By: #### L 00.0100 #### [facility] [address] [place], [address] Nucleated RBC (Bld) [#/Vol] 0 10*3/uL Normal 0-5 [facility] Comment on above: Performed By: #### L 00.0100 #### [facility] [address] [place], [address] Platelet mean volume (Bld) [Entitic vol] 9.1 fL Normal 6.2-12.0 [facility] Comment on above: Performed By: #### L 9099.0100 #### [facility] [address] [place], [address] Platelets (Bld) [#/Vol] 210 10*3/uL Normal 150-450 [facility] Comment on above: Performed By: #### L 9100.0100 #### [facility] [address] [place], [address] RBC (Bld) [#/Vol] 4.43 10*6/uL Low 4.6-6.2 [facility] Comment on above: Performed By: #### L 9100.0100 #### [facility] [address] [place], [address] RDW SD 39.3 fl Normal 35.1-43.9 [facility] Comment on above: Performed By: #### L 9100.0100 #### [facility] [address] [place], [address] WBC (Bld) [#/Vol] 4.0 10*3/uL Low 4.4-11.0 [facility] Comment on above: Performed By: #### L 9100.0100 #### [facility] [address] [place], [address] Carbon dioxide, total [Moles /volume] in Central venous bloodOrdered By: Bryn Mccall on 03-03-2025 CO2 [Moles/Vol] 26.1 mmol/L 21.0-32.0 [facility] Chloride assayOrdered By: Bonifacio Mccall on 03-03-2025 Chloride [Moles/Vol] 104 mmol/L 98-108 [facility] Eosinophil percentageOrdered By: Bryn Mccall on 03-03-2025 Eosinophils/100 WBC (Bld) 1.5 % 0-5 [facility] Erythrocyte distribution wid th ratioOrdered By: Bryn Mccall on 03-03-2025 Erythrocyte distribution width (RBC) [Ratio] 12.3 % 11.6-14.6 [facility] Erythrocyte distribution wid th standard deviationOrdered By: Bryn Mccall on 03-03-2025 Erythrocyte distribution width (RBC) [Ratio] 39.3 fl 35.1-43.9 [facility] Glomerular filtration rate ( GFR) estimation/1.73 sq m using serum, plasma, or whole bOrdered By: Bryn Mccall on 03-03-2025 GFR/1.73 sq M.predicted among non-blacks MDRD (S/P/Bld) [Vol rate/Area] 98 mL/min/{1.73_m2} >60 [facility] Comment on above: mL/min/1.73m2 CKD-EP I Creatinine Equation (2020) Hematocrit Auto (Bld) [Volum e fraction]Ordered By: Bryn Mccall on 03-03-2025 Hematocrit (Bld) [Volume fraction] 38.6 % Low 40-54 [facility] Hemoglobin measurementOrdere d By: Bryn Mccall on 03-03-2025 Hemoglobin (Bld) [Mass/Vol] 13.0 g/dL 13.0-16.5 [facility] Immature granulocytes/100 WB C Auto (Bld)Ordered By: Bryn Mccall on 03-03-2025 Immature granulocytes/100 WBC (Bld) 0.300 % 0.0-0.9 [facility] Comment on above: IG% - Immature Granu locytes (promyelocytes, myelocytes and metamyelocytes) > 1% indicates that a LEFT SHIFT is Present. MCV (mean corpuscular volume ) determinationOrdered By: Bryn Mccall on 03-03-2025 MCV (RBC) [Entitic vol] 87.1 fL 80-94 [facility] MR/POSTOP.ANEon 03-03-2025 MR/POSTOP.ANE [facility] Medical Records Department [address] [place] [address] Anesthesia Postop Eval I 03/03/25 1305 MR#: [id number] Acct: [id number] Name: DELTA CHEEK Jr. Rep #: [id number] : 1975 49 From: Hossein Cheek CRNA PCP: Dr. Rogelio Colvin MD Status:ADM IN Y Race: C Location: [place] [address] Anesthesia: Postop Eval I Current Vital Signs [...] 1 completed: Yes 03/03/25 1306 Date Hossein Cheek CRNA Cosigner Signature: Date CC: Signed Normal [facility] MR/[id number] 03-03-2025 [facility] Medical Records Department [address] [place] [address] Anesthesia Postop Eval II 03/03/252017 MR#: [id number] Acct: [id number] Name: DELTA CHEEK Jr. Rep #: [id number] : 1975 49 From: Andrew Carranza MD PCP: Dr. 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 nausea No 03/03/25 13:05 CHEMISTRY TECHNICIAN.PKEL Vomiting No 03/03/25 13:05 CHEMISTRY [email or web address] Anesthesia Postop Eval I: Fluid Summary Crystalloid volume administer 1,100 03/03/25 13:05 CHEMISTRY [email or web address] (ml) Colloids volume administered ( ml) Blood Product volume administered (ml) Total IV fluid infused 1,100 03/03/25 13:05 CHEMISTRY [email or web address] Anesthesia Postop Eval I: Summary Notes Anesthesia Complication No 03/03/25 13:05 CHEMISTRY [email or web address].MIKE Anesthesia Complication Comment: Post-operative progress note Anesthesia: Postop Eval II Evaluation Mental status: Awake and Calm Pain Level: 1 nausea: No Vomiting: No Complications Anesthesia Complication: No 03/03/252017 Date Andrew Carranza MD Cosigner Signature: Date CC: Signed Normal [facility] Mean corpuscular hemoglobin (MCH) determinationOrdered By: Bryn Mccall on 03-03-2025 MCH (RBC) [Entitic mass] 29.3 pg 27.0-32.0 [facility] Mean corpuscular hemoglobin concentration (MCHC) determinationOrdered By: Bryn Mccall on 03-03-2025 MCHC (RBC) [Mass/Vol] 33.7 g/dL 32-36 [facility] Mean platelet volume determi nationOrdered By: Bryn Mccall on 03-03-2025 Platelet mean volume (Bld) [Entitic vol] 9.1 fL 6.2-12.0 [facility] Monocyte percentageOrdered B y: Bryn Mccall on 03-03-2025 Monocytes/100 WBC (Bld) 10.9 % High 0-10 [facility] Neutrophil percentageOrdered By: Bryn Mccall on 03-03-2025 Neutrophils/100 WBC (Bld) 53.2 % 47-70 [facility] Nucleated red blood cell per centageOrdered By: Bryndebra Mccall on 03-03-2025 Nucleated RBC/100 WBC (Bld) [Ratio] 0 % 0-5 [facility] Operative Reporton Operative Report [facility] Medical Records Department [address] [place] [address] Operative Report 03/03/25 1232 MR#: [id number] Acct: [id number] Name: DELTA CHEEK Jr. Rep #: [id number] : 1975 49 From: Bryn Mccall MD PCP: Dr. 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 [...] the micropuncture sheath exchanged for a 10 Sammarinese sheath. Through the 10 Sammarinese sheath the Bentson wire was navigated through [...] significant thrombus or stenosis. Next a [place] 16 x 40 angioplasty balloon was advanced centered on the external iliac vein stenosis and inflated for multiple inflations. This was then withdrawn and a Wallace XXL 18 x 40 angioplasty balloon was [...] PCU fo (more content not included)... Normal [facility] Partial Thromboplast Timeon 03-03-2025 aPTT Coag (Bld) [Time] 44.6 s High 24.1-36.2 [facility] Comment on above: Performed By: #### L 500.2500, L100.0500 #### [facility] [place], [address] aPTT Coag (Bld) [Time] 49.4 s High 24.1-36.2 [facility] Comment on above: Order Comment: PT OU T OF ROOM FOR TESTING. NURSE WIIL CALL WHEN BACK ONFLOOR Performed By: #### L 300.4310 ####[facility] [address] [place], [address] aPTT Coag (Bld) [Time] 42.5 s High 24.1-36.2 [facility] Comment on above: Performed By: #### L 300.4310 #### [facility] [address] [place], [address] aPTT Coag (Bld) [Time] 43.8 s High 24.1-36.2 [facility] Comment on above: Order Comment: Comme nts: heparin gtt Performed By: #### L 9100.0100 #### [facility] [address] [place], [address] Platelet countOrdered By: Bonifacio Mccall on 03-03-2025 Platelets (Bld) [#/Vol] 210 10*3/uL 150-450 [facility] Potassium measurement (mass/ volume)Ordered By: Bryn Mccall on 03-03-2025 Potassium (Unsp spec) [Mass/Vol] 3.9 mmol/L 3.3-5.1 [facility] RBC Auto (Bld) [#/Vol]Ordere d By: Bryn Mccall on 03-03-2025 RBC (Bld) [#/Vol] 4.43 10*6/uL Low 4.6-6.2 [facility] Serum creatinine measurement (mass/volume)Ordered By: Bryn Mccall on 03-03-2025 Creatinine [Mass/Vol] 0.94 mg/dL 0.70-1.20 [facility] Serum glucose measurement (m ass/volume)Ordered By: Bryn Mccall on 03-03-2025 Glucose [Mass/Vol] 99 mg/dL 70-99 [facility] Serum or plasma calcium rosangela urement (mass/volume)Ordered By: Bryn Mccall on 03-03-2025 Calcium [Mass/Vol] 9.1 mg/dL 7.6-11.0 [facility] Serum or plasma urea nitroge n measurement (mass/volume)Ordered By: Bryn Mccall on 03-03-2025 Urea nitrogen [Mass/Vol] 12 mg/dL 4-19 [facility] Sodium levelOrdered By: Bryn Mccall on 03-03-2025 Sodium [Moles/Vol] 140 mmol/L 133-145 [facility] White blood cell (WBC) count Ordered By: Bryn Mccall on 03-03-2025 WBC (Bld) [#/Vol] 4.0 10*3/uL Low 4.4-11.0 [facility] International normalized rat io (INR) calculationOrdered By: Bryn Mccall on 03-02-2025 INR Coag (Bld) [Relative time] 1.0 {INR} [facility] Partial Thromboplast Timeon 03-02-2025 aPTT Coag (Bld) [Time] 31.1 s Normal 24.1-36.2 [facility] Comment on above: Performed By: #### L 300.4310 ####[facility] [address] [place], [address] Prothrombin Time w/INRon INR Coag (PPP) [Relative time] 1.0 {INR} Normal [facility] Comment on above: Performed By: #### L 300.3900 ####[facility] [address] [place], [address] PT Coag (PPP) [Time] 13.6 s Normal 11.7-14.9 [facility] Comment on above: Performed By: #### L 300.3900 ####[facility] [address] [place], [address] Prothrombin timeOrdered By: rByn Mccall on 03-02-2025 PT Coag (PPP) [Time] 13.6 s 11.7-14.9 [facility] MR/BMS.BVSon 02-16-2025 MR/BMS.BVS [facility] Surgery [address] [place], [place] [address] OFFICE VISIT Date of Service: 02/16/25 MR#: [id number] Acct: [id number] Name: DELTA CHEEK Jr. Rep #: [id number] : 1975 Provider: Dr. Bryn Mccall MD Age/Sex: 49/M Location: [facility] Status: Signed Intake Vital Signs 01/26/25 08:20 [...] movements, No (more content not included)... Normal [facility] Absolute lymphocyte countOrd ered By: Bryn Victor on 02-09-2025 Lymphocytes Auto (Unsp spec) [#/Vol] 1.61 10*3/uL 0.83-4.51 [facility] Absolute neutrophil countOrd ered By: Bryn Victor on 02-09-2025 Neutrophils (Bld) [#/Vol] 3.7 10*3/uL 2.0-7.7 [facility] Activated partial thrombopla stin time (aPTT) in platelet poor plasma by coagulation aOrdered By: Bryn Victor on 02-09-2025 aPTT Coag (PPP) [Time] 30.6 s 24.1-36.2 [facility] Anion gap in Serum or Plasma Ordered By: Bryn Victor on 02-09-2025 Anion gap [Moles/Vol] 18 mmol/L High 5-15 [facility] Automated lymphocyte count a s percentage of total leukocytesOrdered By: Bryn Victor on 02-09-2025 Lymphocytes/100 WBC Auto (Unsp spec) 26.4 % 19-41 [facility] BUN/creatinine ratioOrdered By: Bryn Victor on 02-09-2025 Urea nitrogen/Creatinine [Mass ratio] 15.1 mg/mg 10- [facility] Basic Metabolic Profile (BMP )on 02-09-2025 BUN/CRE 15.1 RATIO Normal 08-31 [facility] Comment on above: Performed By: #### L 500.2500, L100.0500 #### [facility] [address] [place], [address] Calcium [Mass/Vol] 9.4 mg/dL Normal 7.6-11.0 [facility] Comment on above: Performed By: #### L 500.2500, L100.0500 #### [facility] [address] [place], [address] Chloride [Moles/Vol] 102 mmol/L Normal 98-108 [facility] Comment on above: Performed By: #### L 500.2500, L100.0500 #### [facility] [address] [place], [address] CO2 [Moles/Vol] 17.6 mmol/L Low 21.0-32.0 [facility] Comment on above: Performed By: #### L 500.2500, L100.0500 #### [facility] [address] [place], [address] Creatinine [Mass/Vol] 0.96 mg/dL Normal 0.70-1.20 [facility] Comment on above: Performed By: #### L 500.2500, L100.0500 #### [facility] [address] [place], [address] ECRCL 123.08 ml/min Normal 50-250 [facility] Comment on above: Performed By: #### L 500.2500, L100.0500 #### [facility] [address] [place], [address] GAP 18 High 5-15 [facility] Comment on above: Performed By: #### L 500.2500, L100.0500 #### [facility] [address] [place], [address] GFR/1.73 sq M.predicted among non-blacks MDRD (S/P/Bld) [Vol rate/Area] 95 mL/min/{1.73_m2} Normal >60 [facility] Comment on above: Result Comment: mL/m in/1.73m2 CKD-EPI Creatinine Equation (2020) Performed By: #### L 500.2500, L100.0500 #### [facility] [address] [place], [address] Glucose [Mass/Vol] 84 mg/dL Normal 70-99 [facility] Comment on above: Performed By: #### L 500.2500, L100.0500 #### [facility] [address] [place], [address] Potassium [Moles/Vol] 4.3 mmol/L Normal 3.3-5.1 [facility] Comment on above: Result Comment: Hemo lysis present, Results??could be affected. ?? Performed By: #### L 500.2500, L100.0500 #### [facility] [address] [place], [address] Sodium [Moles/Vol] 138 mmol/L Normal 133-145 [facility] Comment on above: Performed By: #### L 500.2500, L100.0500 #### [facility] [address] [place], [address] Urea nitrogen [Mass/Vol] 15 mg/dL Normal 4-19 [facility] Comment on above: Performed By: #### L 500.2500, L100.0500 #### [facility] [address] [place], [address] Basophil percentageOrdered B y: Bryn Victor on 02-09-2025 Basophils/100 WBC (Bld) 1.0 % 0-1 [facility] CBC W/Diff, Automatedon 01-12 Absolute Lymph 1.61 X10 3/uL Normal 0.83-4.51 [facility] Comment on above: Performed By: #### L 500.2500, L100.0500 #### [facility] [address] [place], [address] Absolute Neut 3.7 X10 3/uL Normal 2.0-7.7 [facility] Comment on above: Performed By: #### L 500.2500, L100.0500 #### [facility] [address] [place], [address] Basophils/100 WBC (Bld) 1.0 % Normal 0-1 [facility] Comment on above: Performed By: #### L 500.2500, L100.0500 #### [facility] [address] [place], [address] Eosinophils/100 WBC (Bld) 1.0 % Normal 0-5 [facility] Comment on above: Performed By: #### L 500.2500, L100.0500 #### [facility] [address] [place], [address] Erythrocyte distribution width (RBC) [Ratio] 12.4 % Normal 11.6-14.6 [facility] Comment on above: Performed By: #### L 500.2500, L100.0500 #### [facility] [address] [place], [address] Hematocrit (Bld) [Volume fraction] 42.9 % Normal 40-54 [facility] Comment on above: Performed By: #### L 500.2500, L100.0500 #### [facility] [address] [place], [address] Hemoglobin (Bld) [Mass/Vol] 14.2 g/dL Normal 13.0-16.5 [facility] Comment on above: Performed By: #### L 500.2500, L100.0500 #### [facility] [address] [place], [address] IG% 0.300 Normal 0.0-0.9 [facility] Comment on above: Result Comment: IG% - Immature Granulocytes (promyelocytes, myelocytes and metamyelocytes) > 1% indicates that a LEFT SHIFT is Present. Performed By: #### L 500.2500, L100.0500 #### [facility] [address] [place], [address] Lymphocytes/100 WBC (Bld) 26.4 % Normal 19-41 [facility] Comment on above: Performed By: #### L 500.2500, L100.0500 #### [facility] [address] [place], [address] MCH (RBC) [Entitic mass] 29.5 pg Normal 27.0-32.0 [facility] Comment on above: Performed By: #### L 500.2500, L100.0500 #### [facility] [address] [place], [address] MCHC (RBC) [Mass/Vol] 33.1 g/dL Normal 32-36 [facility] Comment on above: Performed By: #### L 500.2500, L100.0500 #### [facility] [address] [place], [address] MCV (RBC) [Entitic vol] 89.2 fL Normal 80-94 [facility] Comment on above: Performed By: #### L 500.2500, L100.0500 #### [facility] [address] [place], [address] Monocytes/100 WBC (Bld) 10.2 % High 0-10 [facility] Comment on above: Performed By: #### L 500.2500, L100.0500 #### [facility] [address] [place], [address] Neutrophils/100 WBC (Bld) 61.1 % Normal 47-70 [facility] Comment on above: Performed By: #### L 500.2500, L100.0500 #### [facility] [address] [place], [address] Nucleated RBC (Bld) [#/Vol] 0 10*3/uL Normal 0-5 [facility] Comment on above: Performed By: #### L 500.2500, L100.0500 #### [facility] [address] [place], [address] Platelet mean volume (Bld) [Entitic vol] 9.2 fL Normal 6.2-12.0 [facility] Comment on above: Performed By: #### L 500.2500, L100.0500 #### [facility] [address] [place], [address] Platelets (Bld) [#/Vol] 307 10*3/uL Normal 150-450 [facility] Comment on above: Performed By: #### L 500.2500, L100.0500 #### [facility] [address] [place], [address] RBC (Bld) [#/Vol] 4.81 10*6/uL Normal 4.6-6.2 [facility] Comment on above: Performed By: #### L 500.2500, L100.0500 #### [facility] [address] [place], [address] RDW SD 40.6 fl Normal 35.1-43.9 [facility] Comment on above: Performed By: #### L 500.2500, L100.0500 #### [facility] [address] [place], [address] WBC (Bld) [#/Vol] 6.1 10*3/uL Normal 4.4-11.0 [facility] Comment on above: Performed By: #### L 500.2500, L100.0500 #### [facility] [address] [place], [address] Carbon dioxide, total [Moles /volume] in Central venous bloodOrdered By: Bryn Victor on 02-09-2025 CO2 [Moles/Vol] 17.6 mmol/L Low 21.0-32.0 [facility] Chloride assayOrdered By: Bonifacio Victor on 02-09-2025 Chloride [Moles/Vol] 102 mmol/L 98-108 [facility] Emergency Department Summary on 02-09-2025 Emergency Department Summary [facility] Medical Records Department [address] [place] [address] Emergency Department Summary 02/09/25 MR#: [id number] Acct: [id number] Name: DELTA CHEEK Jr. Rep #: [id number] : 1975 49 From: Bryn Victor DO [...] symptoms: Yes and With Prior Back Pain [facility] Medical History Wears glasses Marijuana use History [...] bony crep (more content not included)... Normal [facility] Eosinophil percentageOrdered By: Bryn Victor on 02-09-2025 Eosinophils/100 WBC (Bld) 1.0 % 0-5 [facility] Erythrocyte distribution wid th ratioOrdered By: Bryn Victor on 02-09-2025 Erythrocyte distribution width (RBC) [Ratio] 12.4 % 11.6-14.6 [facility] Erythrocyte distribution wid th standard deviationOrdered By: Bryn Victor on 02-09-2025 Erythrocyte distribution width (RBC) [Entitic vol] 40.6 fL 35.1-43.9 [facility] Erythrocyte distribution width (RBC) [Ratio] 40.6 fl 35.1-43.9 [facility] Estimation of creatinine obed aranceOrdered By: Bryn Victor on 02-09-2025 Estimated Creatinine Clearance Calc 123.08 ml/min 50-250 [facility] GFR/1.73 sq M.predicted xander g non-blacks MDRD (S/P/Bld) [Vol rate/Area]Ordered By: Bryn Victor on 02-09-2025 Estimated GFR (MDRD) Non-Af Amer 95 >60 [facility] Comment on above: mL/min/1.73m2 CKD-EP I Creatinine Equation (2020) Glomerular filtration rate ( GFR) estimation/1.73 sq m using serum, plasma, or whole bOrdered By: Bryn Victor on 02-09-2025 GFR/1.73 sq M.predicted among non-blacks MDRD (S/P/Bld) [Vol rate/Area] 95 mL/min/{1.73_m2} >60 [facility] Comment on above: mL/min/1.73m2 CKD-EP I Creatinine Equation (2020) Hematocrit Auto (Bld) [Volum e fraction]Ordered By: Bryn Victor on 02-09-2025 Hematocrit (Bld) [Volume fraction] 42.9 % 40-54 [facility] Hemoglobin measurementOrdere d By: Bryn Victor on 02-09-2025 Hemoglobin (Bld) [Mass/Vol] 14.2 g/dL 13.0-16.5 [facility] Immature granulocytes/100 WB C Auto (Bld)Ordered By: Bryn Victor on 02-09-2025 Immature granulocytes/100 WBC (Bld) 0.300 % 0.0-0.9 [facility] Comment on above: IG% - Immature Granu locytes (promyelocytes, myelocytes and metamyelocytes) > 1% indicates that a LEFT SHIFT is Present. International normalized rat io (INR) calculationOrdered By: Bryn Victor on 02-09-2025 INR Coag (Bld) [Relative time] 0.9 {INR} [facility] Lymphocytes Auto (Unsp spec) [#/Vol]Ordered By: Bryn Victor on 02-09-2025 Lymphocytes (Bld) [#/Vol] 1.61 10*3/uL 0.83-4.51 [facility] Lymphocytes/100 WBC Auto (Un sp spec)Ordered By: Bryn Victor on 02-09-2025 Lymphocytes/100 WBC (Bld) 26.4 % 19-41 [facility] MCV (mean corpuscular volume ) determinationOrdered By: Bryn Victor on 02-09-2025 MCV (RBC) [Entitic vol] 89.2 fL 80-94 [facility] Mean corpuscular hemoglobin (MCH) determinationOrdered By: Bryn Victor on 02-09-2025 MCH (RBC) [Entitic mass] 29.5 pg 27.0-32.0 [facility] Mean corpuscular hemoglobin concentration (MCHC) determinationOrdered By: Bryn Victor on 02-09-2025 MCHC (RBC) [Mass/Vol] 33.1 g/dL -36 [facility] Mean platelet volume determi nationOrdered By: Bryn Victor on 02-09-2025 Platelet mean volume (Bld) [Entitic vol] 9.2 fL 6.2-12.0 [facility] Monocyte percentageOrdered B y: Bryn Victor on 02-09-2025 Monocytes/100 WBC (Bld) 10.2 % High 0-10 [facility] Neutrophil percentageOrdered By: Bryn Victor on 02-09-2025 Neutrophils/100 WBC (Bld) 61.1 % 47-70 [facility] Nucleated red blood cell per centageOrdered By: Bryn Victor on 02-09-2025 Nucleated RBC/100 WBC (Bld) [Ratio] 0 % 0-5 [facility] Partial Thromboplast Timeon 02-09-2025 aPTT Coag (Bld) [Time] 30.6 s Normal 24.1-36.2 [facility] Comment on above: Performed By: #### L 500.2500, L100.0500 #### [facility] [address] [place] [address]. [place], [address] Platelet countOrdered By: Bonifacio Victor on 02-09-2025 Platelets (Bld) [#/Vol] 307 10*3/uL 150-450 [facility] Potassium (Unsp spec) [Mass/ Vol]Ordered By: Bryn Victor on 02-09-2025 Potassium [Moles/Vol] 4.3 mmol/L 3.3-5.1 [facility] Comment on above: Hemolysis present, R esults could be affected. Potassium measurement (mass/ volume)Ordered By: Bryn Victor on 02-09-2025 Potassium (Unsp spec) [Mass/Vol] 4.3 mmol/L 3.3-5.1 [facility] Comment on above: Hemolysis present, R esults could be affected. Prothrombin Time w/INRon INR Coag (PPP) [Relative time] 0.9 {INR} Normal [facility] Comment on above: Performed By: #### L 500.2500, L100.0500 #### [facility] [address] [place], [address] PT Coag (PPP) [Time] 12.6 s Normal 11.7-14.9 [facility] Comment on above: Performed By: #### L 500.2500, L100.0500 #### [facility] [address] [place], [address] Prothrombin timeOrdered By: Bryn Victor on 02-09-2025 PT Coag (PPP) [Time] 12.6 s 11.7-14.9 [facility] RBC Auto (Bld) [#/Vol]Ordere d By: Bryn Victor on 02-09-2025 RBC (Bld) [#/Vol] 4.81 10*6/uL 4.6-6.2 [facility] Serum creatinine measurement (mass/volume)Ordered By: Bryn Victor on 02-09-2025 Creatinine [Mass/Vol] 0.96 mg/dL 0.70-1.20 [facility] Serum glucose measurement (m ass/volume)Ordered By: Bryn Victor on 02-09-2025 Glucose [Mass/Vol] 84 mg/dL 70-99 [facility] Serum or plasma calcium rosangela urement (mass/volume)Ordered By: Bryn Victor on 02-09-2025 Calcium [Mass/Vol] 9.4 mg/dL 7.6-11.0 [facility] Serum or plasma urea nitroge n measurement (mass/volume)Ordered By: Bryn Victor on 02-09-2025 Urea nitrogen [Mass/Vol] 15 mg/dL 4-19 [facility] Sodium levelOrdered By: Bryn Victor on 02-09-2025 Sodium [Moles/Vol] 138 mmol/L 133-145 [facility] Venous Duplex US, Unilateral on 02-09-2025 Venous Duplex US, Unilateral [facility] [address] [place] [address] Venous Duplex US, Unilateral 02/09/25 1542 MR#: [id number] Acct: [id number] Name: DELTA CHEEK Jr. Rep #: [id number] : 1975 49 From: Bryn Mccall MD [...] MD Date Dictated: 02/09/25 1542 Date Transcribed: 02/10/25 0953 Tax Advisor: Signed Normal [facility] White blood cell (WBC) count Ordered By: Bryn Victor on 02-09-2025 WBC (Bld) [#/Vol] 6.1 10*3/uL 4.4-11.0 [facility] aPTT Coag (PPP) [Time]Ordere d By: Bryn Victor on 02-09-2025 aPTT Coag (Bld) [Time] 30.6 s 24.1-36.2 [facility] L/S Spine Bending Flex/Gaylord 02-03-2025 L/S Spine Bending Flex/Ext [facility] Imaging Services [address] [place] [address] L/S Spine Bending Flex/Ext MR#: [id number] Acct: [id number] Name: DELTA CHEEK Jr. Rep #: [id number] : 1975 M 49 From: Mendy Back MD PCP: Dr. Rogelio Colvin MD Status: DEP AMB Study: L/S Spine Bending Flex/Ext Date of Exam: 02/03 Exam# [id number] Ordering Dr: Nadia Brandt EXAM: XR Lumbosacral [...] findings in the lumbar spine. Reading [facility] CC: JORGE A Bauman; Dr. Rogelio Colvin MD Tax Advisor: Signed Normal [facility] Orthopedic Visit Reporton Orthopedic Visit Report [facility] [address] [place] [address] [address] [place] [address] OFFICE VISIT Date of Service: 02/03/25 MR#: [id number] Acct: [id number] Name: DELTA CHEEK Jr. Rep #: [id number] : 1975 Provider: JORGE A Bauman Age/Sex: 49/M Location: [facility] Status: Signed Intake Vital Signs 01/26/25 08:20 [...] by Dr. Flores. 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 Normal [facility] Anion gap in Serum or Plasma Ordered By: Teena Jacques on 01-27-2025 Anion gap [Moles/Vol] 9 mmol/L 03-26 [facility] BUN/creatinine ratioOrdered By: Teena Jacques on 01-27-2025 Urea nitrogen/Creatinine [Mass ratio] 18.3 mg/mg 08-31 [facility] Basic Metabolic Profile (BMP )on 01-27-2025 BUN/CRE 18.3 RATIO Normal 08-31 [facility] Comment on above: Performed By: #### L 500.2500, L100.0500 #### [facility] [address] [facility] [place], [address] Calcium [Mass/Vol] 9.6 mg/dL Normal 7.6-11.0 [facility] Comment on above: Performed By: #### L 500.2500, L100.0500 #### [facility] [address] [place], [address] Chloride [Moles/Vol] 101 mmol/L Normal 98-108 [facility] Comment on above: Performed By: #### L 500.2500, L100.0500 #### [facility] [address] [place], [address] CO2 [Moles/Vol] 26.5 mmol/L Normal 21.0-32.0 [facility] Comment on above: Performed By: #### L 500.2500, L100.0500 #### [facility] [address] [place], [address] Creatinine [Mass/Vol] 1.02 mg/dL Normal 0.70-1.20 [facility] Comment on above: Performed By: #### L 500.2500, L100.0500 #### [facility] [address] [place], [address] GAP 9 Normal 5-15 [facility] Comment on above: Performed By: #### L 500.2500, L100.0500 #### [facility] [address] [place], [address] GFR/1.73 sq M.predicted among non-blacks MDRD (S/P/Bld) [Vol rate/Area] 89 mL/min/{1.73_m2} Normal >60 [facility] Comment on above: Result Comment: mL/m in/1.73m2 CKD-EPI Creatinine Equation (2020) Performed By: #### L 500.2500, L100.0500 #### [facility] [address] [place], [address] Glucose [Mass/Vol] 106 mg/dL High 70-99 [facility] Comment on above: Performed By: #### L 500.2500, L100.0500 #### [facility] [address] [place], [address] Potassium [Moles/Vol] 4.1 mmol/L Normal 3.3-5.1 [facility] Comment on above: Result Comment: Hemo lysis present, Results??could be affected. ?? Performed By: #### L 500.2500, L100.0500 #### [facility] [address] [place], [address] Sodium [Moles/Vol] 137 mmol/L Normal 133-145 [facility] Comment on above: Performed By: #### L 500.2500, L100.0500 #### [facility] [address] [place], [address] Urea nitrogen [Mass/Vol] 19 mg/dL Normal 4-19 [facility] Comment on above: Performed By: #### L 500.2500, L100.0500 #### [facility] [address] [place], [address] CBC-Complete Blood Cnt No Di ffon 01-27-2025 Erythrocyte distribution width (RBC) [Ratio] 13.1 % Normal 11.6-14.6 [facility] Comment on above: Performed By: #### L 500.2500, L100.0500 #### [facility] [address] [place], [address] Hematocrit (Bld) [Volume fraction] 45.1 % Normal 40-54 [facility] Comment on above: Performed By: #### L 500.2500, L100.0500 #### [facility] [address] [place], [address] Hemoglobin (Bld) [Mass/Vol] 15.1 g/dL Normal 13.0-16.5 [facility] Comment on above: Performed By: #### L 500.2500, L100.0500 #### [facility] [address] [place], [address] MCH (RBC) [Entitic mass] 30.0 pg Normal 27.0-32.0 [facility] Comment on above: Performed By: #### L 500.2500, L100.0500 #### [facility] [address] [place], [address] MCHC (RBC) [Mass/Vol] 33.5 g/dL Normal 32-36 [facility] Comment on above: Performed By: #### L 500.2500, L100.0500 #### [facility] [address] [place], [address] MCV (RBC) [Entitic vol] 89.7 fL Normal 80-94 [facility] Comment on above: Performed By: #### L 500.2500, L100.0500 #### [facility] [address] [place], [address] Platelet mean volume (Bld) [Entitic vol] 9.3 fL Normal 6.2-12.0 [facility] Comment on above: Performed By: #### L 500.2500, L100.0500 #### [facility] [address] [place], [address] Platelets (Bld) [#/Vol] 328 10*3/uL Normal 150-450 [facility] Comment on above: Performed By: #### L 500.2500, L100.0500 #### [facility] [address] [place], [address] RBC (Bld) [#/Vol] 5.03 10*6/uL Normal 4.6-6.2 [facility] Comment on above: Performed By: #### L 500.2500, L100.0500 #### [facility] [address] [place], [address] RDW SD 42.5 fl Normal 35.1-43.9 [facility] Comment on above: Performed By: #### L 500.2500, L100.0500 #### [facility] [address] [place], [address] WBC (Bld) [#/Vol] 7.8 10*3/uL Normal 4.4-11.0 [facility] Comment on above: Performed By: #### L 500.2500, L100.0500 #### [facility] [address] [place], [address] Carbon dioxide, total [Moles /volume] in Central venous bloodOrdered By: Teena Jacques on 01-27-2025 CO2 [Moles/Vol] 26.5 mmol/L 21.0-32.0 [facility] Chloride assayOrdered By: Nathanael Jacques on 01-27-2025 Chloride [Moles/Vol] 101 mmol/L 98-108 [facility] Erythrocyte distribution wid th ratioOrdered By: Teena Jacques on 01-27-2025 Erythrocyte distribution width (RBC) [Ratio] 13.1 % 11.6-14.6 [facility] Erythrocyte distribution wid th standard deviationOrdered By: Teena Jacques on 01-27-2025 Erythrocyte distribution width (RBC) [Entitic vol] 42.5 fL 35.1-43.9 [facility] Erythrocyte distribution width (RBC) [Ratio] 42.5 fl 35.1-43.9 [facility] GFR/1.73 sq M.predicted xander g non-blacks MDRD (S/P/Bld) [Vol rate/Area]Ordered By: Teena Jacques on 01-27-2025 Estimated GFR (MDRD) Non-Af Amer 89 >60 [facility] Comment on above: mL/min/1.73m2 CKD-EP I Creatinine Equation (2020) Glomerular filtration rate ( GFR) estimation/1.73 sq m using serum, plasma, or whole bOrdered By: Teena Jacques on 01-27-2025 GFR/1.73 sq M.predicted among non-blacks MDRD (S/P/Bld) [Vol rate/Area] 89 mL/min/{1.73_m2} >60 [facility] Comment on above: mL/min/1.73m2 CKD-EP I Creatinine Equation (2020) Hematocrit Auto (Bld) [Volum e fraction]Ordered By: Teena Jacques on 01-27-2025 Hematocrit (Bld) [Volume fraction] 45.1 % 40-54 [facility] Hemoglobin measurementOrdere d By: Teena Jacques on 01-27-2025 Hemoglobin (Bld) [Mass/Vol] 15.1 g/dL 13.0-16.5 [facility] MCV (mean corpuscular volume ) determinationOrdered By: Teena Jacques 01-27-2025 MCV (RBC) [Entitic vol] 89.7 fL 80-94 [facility] MR/BMSChristineBVLenny 01-27-2025 MR/BMS.BVS [facility] [address] [place] [address] OFFICE VISIT Date of Service: 01/27/25 MR#: [id number] Acct: [id number] Name: DELTA CHEEK Rep #: [id number] : 1975 Provider: JORGE A Schmitt Age/Sex: 49/M Location: [facility] Status: Signed Intake Vital Signs 01/19/25 16:09 [...] No numbn (more content not included)... Normal [facility] Mean corpuscular hemoglobin (MCH) determinationOrdered By: Teena Jacques on 01-27-2025 MCH (RBC) [Entitic mass] 30.0 pg 27.0-32.0 [facility] Mean corpuscular hemoglobin concentration (MCHC) determinationOrdered By: Teena Jacques on 01-27-2025 MCHC (RBC) [Mass/Vol] 33.5 g/dL 32-36 [facility] Mean platelet volume determi nationOrdered By: Teena Jacques on 01-27-2025 Platelet mean volume (Bld) [Entitic vol] 9.3 fL 6.2-12.0 [facility] Platelet countOrdered By: Nathanael Jacques on 01-27-2025 Platelets (Bld) [#/Vol] 328 10*3/uL 150-450 [facility] Potassium (Unsp spec) [Mass/ Vol]Ordered By: Teena Jacques on 01-27-2025 Potassium [Moles/Vol] 4.1 mmol/L 3.3-5.1 [facility] Comment on above: Hemolysis present, R esults could be affected. Potassium measurement (mass/ volume)Ordered By: Teena Jacques on 01-27-2025 Potassium (Unsp spec) [Mass/Vol] 4.1 mmol/L 3.3-5.1 [facility] Comment on above: Hemolysis present, R esults could be affected. RBC Auto (Bld) [#/Vol]Ordere d By: Teena Jacques on 01-27-2025 RBC (Bld) [#/Vol] 5.03 10*6/uL 4.6-6.2 [facility] Serum creatinine measurement (mass/volume)Ordered By: Teena Jacques on 01-27-2025 Creatinine [Mass/Vol] 1.02 mg/dL 0.70-1.20 [facility] Serum glucose measurement (m ass/volume)Ordered By: Teena Jacques on 01-27-2025 Glucose [Mass/Vol] 106 mg/dL High 70-99 [facility] Serum or plasma calcium rosangela urement (mass/volume)Ordered By: Teena Jacques on 01-27-2025 Calcium [Mass/Vol] 9.6 mg/dL 7.6-11.0 [facility] Serum or plasma urea nitroge n measurement (mass/volume)Ordered By: Teena Jacques on 01-27-2025 Urea nitrogen [Mass/Vol] 19 mg/dL 4-19 [facility] Sodium levelOrdered By: Stan Jacques on 01-27-2025 Sodium [Moles/Vol] 137 mmol/L 133-145 [facility] White blood cell (WBC) count Ordered By: Teena Jacques on 01-27-2025 WBC (Bld) [#/Vol] 7.8 10*3/uL 4.4-11.0 [facility] Absolute lymphocyte countOrd ered By: Bryn Mccall on 01-20-2025 Lymphocytes Auto (Unsp spec) [#/Vol] 1.08 10*3/uL 0.83-4.51 [facility] Absolute neutrophil countOrd ered By: Bryn Mccall on 01-20-2025 Neutrophils (Bld) [#/Vol] 9.0 10*3/uL High 2.0-7.7 [facility] Activated partial thrombopla stin time (aPTT) in platelet poor plasma by coagulation aOrdered By: Bryn Mccall on 01-20-2025 aPTT Coag (PPP) [Time] 35.8 s 24.1-36.2 [facility] Anion gap in Serum or Plasma Ordered By: Bryn Mccall on 01-20-2025 Anion gap [Moles/Vol] 10 mmol/L 5-15 [facility] Automated lymphocyte count a s percentage of total leukocytesOrdered By: Bryn Mccall on 01-20-2025 Lymphocytes/100 WBC Auto (Unsp spec) 9.9 % Low 19-41 [facility] [facility] BUN/creatinine ratioOrdered By: Bryn Mccall on 01-20-2025 Urea nitrogen/Creatinine [Mass ratio] 16.7 mg/mg 10- [facility] Basic Metabolic Profile (BMP )on 01-20-2025 BUN/CRE 16.7 RATIO Normal - [facility] Comment on above: Performed By: #### L 500.2500, L100.0500 #### [facility] [address] [place], [address] Calcium [Mass/Vol] 8.5 mg/dL Normal 7.6-11.0 [facility] Comment on above: Performed By: #### L 500.2500, L100.0500 #### [facility] [address] [place], [address] Chloride [Moles/Vol] 103 mmol/L Normal 98-108 [facility] Comment on above: Performed By: #### L 500.2500, L100.0500 #### [facility] [address] [place], [address] CO2 [Moles/Vol] 22.5 mmol/L Normal 21.0-32.0 [facility] Comment on above: Performed By: #### L 500.2500, L100.0500 #### [facility] [address] [place], [address] Creatinine [Mass/Vol] 0.95 mg/dL Normal 0.70-1.20 [facility] Comment on above: Performed By: #### L 500.2500, L100.0500 #### [facility] [address] [place], [address] ECRCL 124.37 ml/min Normal 50-250 [facility] Comment on above: Performed By: #### L 500.2500, L100.0500 #### [facility] [address] [place], [address] GAP 10 Normal 5-15 [facility] Comment on above: Performed By: #### L 500.2500, L100.0500 #### [facility] [address] [place], [address] GFR/1.73 sq M.predicted among non-blacks MDRD (S/P/Bld) [Vol rate/Area] 97 mL/min/{1.73_m2} Normal >60 [facility] Comment on above: Result Comment: mL/m in/1.73m2 CKD-EPI Creatinine Equation (2020) Performed By: #### L 500.2500, L100.0500 #### [facility] [address] [place], [address] Glucose [Mass/Vol] 115 mg/dL High 70-99 [facility] Comment on above: Performed By: #### L 500.2500, L100.0500 #### [facility] [address] [place], [address] Potassium [Moles/Vol] 3.7 mmol/L Normal 3.3-5.1 [facility] Comment on above: Performed By: #### L 500.2500, L100.0500 #### [facility] [address] [place], [address] Sodium [Moles/Vol] 135 mmol/L Normal 133-145 [facility] Comment on above: Performed By: #### L 500.2500, L100.0500 #### [facility] [address] [place], [address] Urea nitrogen [Mass/Vol] 16 mg/dL Normal 4-19 [facility] Comment on above: Performed By: #### L 500.2500, L100.0500 #### [facility] [address] [place], [address] Basophil percentageOrdered B y: Bryn Mccall on 01-20-2025 Basophils/100 WBC (Bld) 0.2 % 0-1 [facility] CBC W/Diff, Automatedon 01-10 Absolute Lymph 1.08 X10 3/uL Normal 0.83-4.51 [facility] Comment on above: Performed By: #### L 500.2500, L100.0500 #### [facility] [address] [place], [address] Absolute Neut 9.0 X10 3/uL High 2.0-7.7 [facility] Comment on above: Performed By: #### L 500.2500, L100.0500 #### [facility] [address] [place], [address] Basophils/100 WBC (Bld) 0.2 % Normal 0-1 [facility] Comment on above: Performed By: #### L 500.2500, L100.0500 #### [facility] [address] [place], [address] Eosinophils/100 WBC (Bld) 0.0 % Normal 0-5 [facility] Comment on above: Performed By: #### L 500.2500, L100.0500 #### [facility] [address] [place], [address] Erythrocyte distribution width (RBC) [Ratio] 12.7 % Normal 11.6-14.6 [facility] Comment on above: Performed By: #### L 500.2500, L100.0500 #### [facility] [address] [place], [address] Hematocrit (Bld) [Volume fraction] 35.5 % Low 40-54 [facility] Comment on above: Performed By: #### L 500.2500, L100.0500 #### [facility] [address] [place], [address] Hemoglobin (Bld) [Mass/Vol] 11.9 g/dL Low 13.0-16.5 [facility] Comment on above: Performed By: #### L 500.2500, L100.0500 #### [facility] [address] [place], [address] IG% 0.500 Normal 0.0-0.9 [facility] Comment on above: Result Comment: IG% - Immature Granulocytes (promyelocytes, myelocytes and metamyelocytes) > 1% indicates that a LEFT SHIFT is Present. Performed By: #### L 500.2500, L100.0500 #### [facility] [address] [place], [address] Lymphocytes/100 WBC (Bld) 9.9 % Low 19-41 [facility] Comment on above: Performed By: #### L 500.2500, L100.0500 #### [facility] [address] [place], [address] MCH (RBC) [Entitic mass] 29.8 pg Normal 27.0-32.0 [facility] Comment on above: Performed By: #### L 500.2500, L100.0500 #### [facility] [address] [place], [address] MCHC (RBC) [Mass/Vol] 33.5 g/dL Normal 32-36 [facility] Comment on above: Performed By: #### L 500.2500, L100.0500 #### [facility] [address] [place], [address] MCV (RBC) [Entitic vol] 89.0 fL Normal 80-94 [facility] Comment on above: Performed By: #### L 500.2500, L100.0500 #### [facility] [address] [place], [address] Monocytes/100 WBC (Bld) 7.2 % Normal 0-10 [facility] Comment on above: Performed By: #### L 500.2500, L100.0500 #### [facility] [address] [place], [address] Neutrophils/100 WBC (Bld) 82.2 % High 47-70 [facility] Comment on above: Performed By: #### L 500.2500, L100.0500 #### [facility] [address] [place], [address] Nucleated RBC (Bld) [#/Vol] 0 10*3/uL Normal 0-5 [facility] Comment on above: Performed By: #### L 500.2500, L100.0500 #### [facility] [address] [place], [address] Platelet mean volume (Bld) [Entitic vol] 8.9 fL Normal 6.2-12.0 [facility] Comment on above: Performed By: #### L 500.2500, L100.0500 #### [facility] [address] [place], [address] Platelets (Bld) [#/Vol] 172 10*3/uL Normal 150-450 [facility] Comment on above: Performed By: #### L 500.2500, L100.0500 #### [facility] [address] [place], [address] RBC (Bld) [#/Vol] 3.99 10*6/uL Low 4.6-6.2 [facility] Comment on above: Performed By: #### L 500.2500, L100.0500 #### [facility] [address] [place], [address] RDW SD 41.7 fl Normal 35.1-43.9 [facility] Comment on above: Performed By: #### L 500.2500, L100.0500 #### [facility] [address] [place], [place], [address] WBC (Bld) [#/Vol] 10.9 10*3/uL Normal 4.4-11.0 [facility] Comment on above: Performed By: #### L 500.2500, L100.0500 #### [facility] [address] [facility] [place], [address] Carbon dioxide, total [Moles /volume] in Central venous bloodOrdered By: Bryn Mccall on 01-20-2025 CO2 [Moles/Vol] 22.5 mmol/L 21.0-32.0 [facility] Chloride assayOrdered By: Bonifacio Mccall on 01-20-2025 Chloride [Moles/Vol] 103 mmol/L 98-108 [facility] Eosinophil percentageOrdered By: Bryn Mccall on 01-20-2025 Eosinophils/100 WBC (Bld) 0.0 % 0-5 [facility] Erythrocyte distribution wid th ratioOrdered By: Bryn Mccall on 01-20-2025 Erythrocyte distribution width (RBC) [Ratio] 12.7 % 11.6-14.6 [facility] Erythrocyte distribution wid th standard deviationOrdered By: Byrn Mccall on 01-20-2025 Erythrocyte distribution width (RBC) [Entitic vol] 41.7 fL 35.1-43.9 [facility] Erythrocyte distribution width (RBC) [Ratio] 41.7 fl 35.1-43.9 [facility] Estimation of creatinine obed aranceOrdered By: Bryn Mccall on 01-20-2025 Estimated Creatinine Clearance Calc 124.37 ml/min 50-250 [facility] GFR/1.73 sq M.predicted xander g non-blacks MDRD (S/P/Bld) [Vol rate/Area]Ordered By: Brny Mccall on 01-20-2025 Estimated GFR (MDRD) Non-Af Amer 97 >60 [facility] Comment on above: mL/min/1.73m2 CKD-EP I Creatinine Equation (2020) Glomerular filtration rate ( GFR) estimation/1.73 sq m using serum, plasma, or whole bOrdered By: Bryn Mccall on 01-20-2025 GFR/1.73 sq M.predicted among non-blacks MDRD (S/P/Bld) [Vol rate/Area] 97 mL/min/{1.73_m2} >60 [facility] Comment on above: mL/min/1.73m2 CKD-EP I Creatinine Equation (2020) Hematocrit Auto (Bld) [Volum e fraction]Ordered By: Bryn Mccall on 01-20-2025 Hematocrit (Bld) [Volume fraction] 35.5 % Low 40-54 [facility] Hemoglobin measurementOrdere d By: Bryn Mccall on 01-20-2025 Hemoglobin (Bld) [Mass/Vol] 11.9 g/dL Low 13.0-16.5 [facility] Immature granulocytes/100 WB C Auto (Bld)Ordered By: Bryn Mccall on 01-20-2025 Immature granulocytes/100 WBC (Bld) 0.500 % 0.0-0.9 [facility] Comment on above: IG% - Immature Granu locytes (promyelocytes, myelocytes and metamyelocytes) > 1% indicates that a LEFT SHIFT is Present. Lymphocytes Auto (Unsp spec) [#/Vol]Ordered By: Bryn Mccall on 01-20-2025 Lymphocytes (Bld) [#/Vol] 1.08 10*3/uL 0.83-4.51 [facility] Lymphocytes/100 WBC Auto (Un sp spec)Ordered By: Bryn Mccall on 01-20-2025 Lymphocytes/100 WBC (Bld) 9.9 % Low 19-41 [facility] MCV (mean corpuscular volume ) determinationOrdered By: Bryn Mccall on 01-20-2025 MCV (RBC) [Entitic vol] 89.0 fL 80-94 [facility] Mean corpuscular hemoglobin (MCH) determinationOrdered By: Bryn Mccall on 01-20-2025 MCH (RBC) [Entitic mass] 29.8 pg 27.0-32.0 [facility] Mean corpuscular hemoglobin concentration (MCHC) determinationOrdered By: Bryn Mccall on 01-20-2025 MCHC (RBC) [Mass/Vol] 33.5 g/dL 32-36 [facility] Mean platelet volume determi nationOrdered By: Bryn Mccall on 01-20-2025 Platelet mean volume (Bld) [Entitic vol] 8.9 fL 6.2-12.0 [facility] Monocyte percentageOrdered B y: Bryn Mccall on 01-20-2025 Monocytes/100 WBC (Bld) 7.2 % 0-10 [facility] Neutrophil percentageOrdered By: Bryn Mccall on 01-20-2025 Neutrophils/100 WBC (Bld) 82.2 % High 47-70 [facility] Nucleated red blood cell per centageOrdered By: Bryn Mccall on 01-20-2025 Nucleated RBC/100 WBC (Bld) [Ratio] 0 % 0-5 [facility] Partial Thromboplast Timeon 01-20-2025 aPTT Coag (Bld) [Time] 35.8 s Normal 24.1-36.2 [facility] Comment on above: Performed By: #### L 500.2500, L100.0500 #### [facility] [address] [place], [address] aPTT Coag (Bld) [Time] 33.8 s Normal 24.1-36.2 [facility] Comment on above: Performed By: #### L 500.2500, L100.0500 #### [facility] [address] [facility] [place], [address] Platelet countOrdered By: Bonifacio Mccall on 01-20-2025 Platelets (Bld) [#/Vol] 172 10*3/uL 150-450 [facility] Potassium (Unsp spec) [Mass/ Vol]Ordered By: Bryn Mccall on 01-20-2025 Potassium [Moles/Vol] 3.7 mmol/L 3.3-5.1 [facility] Potassium measurement (mass/ volume)Ordered By: Bryn Mccall on 01-20-2025 Potassium (Unsp spec) [Mass/Vol] 3.7 mmol/L 3.3-5.1 [facility] RBC Auto (Bld) [#/Vol]Ordere d By: Bryn Mccall on 01-20-2025 RBC (Bld) [#/Vol] 3.99 10*6/uL Low 4.6-6.2 [facility] Serum creatinine measurement (mass/volume)Ordered By: Bryn Mccall on 01-20-2025 Creatinine [Mass/Vol] 0.95 mg/dL 0.70-1.20 [facility] Serum glucose measurement (m ass/volume)Ordered By: Bryn Mccall on 01-20-2025 Glucose [Mass/Vol] 115 mg/dL High 70-99 [facility] Serum or plasma calcium rosangela urement (mass/volume)Ordered By: Bryn Mccall on 01-20-2025 Calcium [Mass/Vol] 8.5 mg/dL 7.6-11.0 [facility] Serum or plasma urea nitroge n measurement (mass/volume)Ordered By: Bryn Mccall on 01-20-2025 Urea nitrogen [Mass/Vol] 16 mg/dL 4-19 [facility] Sodium levelOrdered By: Bryn Mccall on 01-20-2025 Sodium [Moles/Vol] 135 mmol/L 133-145 [facility] White blood cell (WBC) count Ordered By: Bryn Mccall on 01-20-2025 WBC (Bld) [#/Vol] 10.9 10*3/uL 4.4-11.0 [facility] aPTT Coag (PPP) [Time]Ordere d By: Bryn Mccall on 01-20-2025 aPTT Coag (Bld) [Time] 35.8 s 24.1-36.2 [facility] ACT Activated Clotting Timeo n 01-19-2025 ACTk CLOT TIME 181 sec [facility] 74-137 [facility] Comment on above: Performed By: #### L 9100.0100 #### [facility] [address] [place], [place], [address] ACTk CLOT TIME 222 sec High 74-137 [facility] Comment on above: Performed By: #### L 500.2500, L100.0500 #### [facility] [address] [place], [place], [address] ACTk CLOT TIME 199 sec High 74-137 [facility] Comment on above: Performed By: #### L 500.2500, L100.0500 #### [facility] [address] [place], [address] ACTk CLOT TIME 187 sec High 74-137 [facility] Comment on above: Performed By: #### L 500.2500, L100.0500 #### [facility] [address] [place], [address] Activated clotting timeOrder ed By: Bryn Mccall on 01-19-2025 Activated Clotting Time 222 sec High 74-137 [facility] Basic Metabolic Profile (BMP )on 01-19-2025 BUN/CRE 21.6 RATIO High 10-20 [facility] Comment on above: Performed By: #### L 500.2500, L100.0500 #### [facility] [address] [place], [address] Calcium [Mass/Vol] 9.3 mg/dL Normal 7.6-11.0 [facility] Comment on above: Performed By: #### L 500.2500, L100.0500 #### [facility] [address] [place], [address] Chloride [Moles/Vol] 104 mmol/L Normal 98-108 [facility] Comment on above: Performed By: #### L 500.2500, L100.0500 #### [facility] [address] [place], [address] CO2 [Moles/Vol] 25.2 mmol/L Normal 21.0-32.0 [facility] Comment on above: Performed By: #### L 500.2500, L100.0500 #### [facility] [address] [place], [address] Creatinine [Mass/Vol] 1.09 mg/dL Normal 0.70-1.20 [facility] Comment on above: Performed By: #### L 500.2500, L100.0500 #### [facility] [address] [place], [address] GAP 12 Normal 5-15 [facility] Comment on above: Performed By: #### L 500.2500, L100.0500 #### [facility] [address] [place], [address] GFR/1.73 sq M.predicted among non-blacks MDRD (S/P/Bld) [Vol rate/Area] 82 mL/min/{1.73_m2} Normal >60 [facility] Comment on above: Result Comment: mL/m in/1.73m2 CKD-EPI Creatinine Equation (2020) Performed By: #### L 500.2500, L100.0500 #### [facility] [address] [place], [address] Glucose [Mass/Vol] 103 mg/dL High 70-99 [facility] Comment on above: Performed By: #### L 500.2500, L100.0500 #### [facility] [address] [place], [address] Potassium [Moles/Vol] 3.8 mmol/L Normal 3.3-5.1 [facility] Comment on above: Performed By: #### L 500.2500, L100.0500 #### [facility] [address] [place], [address] Sodium [Moles/Vol] 141 mmol/L Normal 133-145 [facility] Comment on above: Performed By: #### L 500.2500, L100.0500 #### [facility] [address] [place], [address] Urea nitrogen [Mass/Vol] 24 mg/dL High 4-19 [facility] Comment on above: Performed By: #### L 500.2500, L100.0500 #### [facility] [address] [place], [address] CBC-Complete Blood Cnt No Meenu friedman 01-19-2025 Erythrocyte distribution width (RBC) [Ratio] 12.7 % Normal 11.6-14.6 [facility] Comment on above: Performed By: #### L 500.2500, L100.0500 #### [facility] [address] [place], [address] Hematocrit (Bld) [Volume fraction] 41.8 % Normal 40-54 [facility] Comment on above: Performed By: #### L 500.2500, L100.0500 #### [facility] [address] [place], [address] Hemoglobin (Bld) [Mass/Vol] 14.0 g/dL Normal 13.0-16.5 [facility] Comment on above: Performed By: #### L 500.2500, L100.0500 #### [facility] [address] [place], [address] MCH (RBC) [Entitic mass] 29.5 pg Normal 27.0-32.0 [facility] Comment on above: Performed By: #### L 500.2500, L100.0500 #### [facility] [address] [place], [address] MCHC (RBC) [Mass/Vol] 33.5 g/dL Normal 32-36 [facility] Comment on above: Performed By: #### L 500.2500, L100.0500 #### [facility] [address] [place], [address] MCV (RBC) [Entitic vol] 88.0 fL Normal 80-94 [facility] Comment on above: Performed By: #### L 500.2500, L100.0500 #### [facility] [address] [place], [address] Platelet mean volume (Bld) [Entitic vol] 8.9 fL Normal 6.2-12.0 [facility] Comment on above: Performed By: #### L 500.2500, L100.0500 #### [facility] [address] [place], [address] Platelets (Bld) [#/Vol] 217 10*3/uL Normal 150-450 [facility] Comment on above: Performed By: #### L 500.2500, L100.0500 #### [facility] [address] [place], [address] RBC (Bld) [#/Vol] 4.75 10*6/uL Normal 4.6-6.2 [facility] Comment on above: Performed By: #### L 500.2500, L100.0500 #### [facility] [address] [place], [address] RDW SD 40.6 fl Normal 35.1-43.9 [facility] Comment on above: Performed By: #### L 500.2500, L100.0500 #### [facility] [address] [place], [address] WBC (Bld) [#/Vol] 5.8 10*3/uL Normal 4.4-11.0 [facility] Comment on above: Performed By: #### L 500.2500, L100.0500 #### [facility] [address] [place], [address] MR/POSTOP.ANEon 01-19-2025 MR/POSTOP.ANE [facility] Medical Records Department [address] [place] [address] Anesthesia Postop Eval I 01/19/25 1343 MR#: [id number] Acct: [id number] Name: ADIADELTA Jr. Rep #: [id number] : 1975 49 From: Marie Pennington CRNA PCP: Dr. Rogelio Colvin MD Status:REG SDC Y Race: C Location: [place] [address] Anesthesia: Postop Eval I Current Vital Signs [...] Postop Eval 1 completed: Yes 01/19/25 1344 Date Marie Pennington CHEMISTRY TECHNICIAN Cosigner Signature: Date CC: Signed Normal [facility] MR/[id number] 01-19-2025 [facility] Medical Records Department [address] [place] [address] Anesthesia Postop Eval II 01/19/25 1517 MR#: [id number] Acct: [id number] Name: DELTA CHEEK Jr. Rep #: [id number] : 1975 49 From: Joseph Segura MD PCP: Dr. Rogelio Colvin MD Status:ADM TATUM Y Race: C Location: [place] [address] Anesthesia Postop Eval I Sum Postop Eval Completion status Anesthesia document: Postop Eval 1 completed: Yes Anesthesia Postop Eval I Summary Anesthesia Postop Eval I Summary: Anesthesia Postop Eval I: Assessment Summary Airway patent Yes 01/19/25 13:44 CHEMISTRY [email or web address] Spontaneous unlabored Yes 01/19/25 13:44 CHEMISTRY [email or web address] respirations Mental status Awake,Calm 01/19/25 13:44 CHEMISTRY [email or web address] nausea No 01/19/25 13:44 CHEMISTRY [email or web address] Vomiting No 01/19/25 13:44 CHEMISTRY [email or web address] Anesthesia Postop Eval I: Fluid Summary Crystalloid volume administer 900 01/19/25 13:44 CHEMISTRY [email or web address] (ml) Colloids volume administered ( ml) Blood Product volume administered (ml) Total IV fluid infused 900 01/19/25 13:44 CHEMISTRY [email or web address] Anesthesia Postop Eval I: Summary Notes Anesthesia Complication No 01/19/25 13:44 CHEMISTRY [email or web address] Anesthesia Complication Comment: Post-operative progress note Anesthesia: Postop Eval II Evaluation Mental status: Awake Pain Level: 1 nausea: No Vomiting: No 01/19/25 1517 Date Joseph Miller Signature: Date CC: Signed Normal [facility] Operative Reporton 5 Operative Report [facility] Medical Records Department [address] [place] [address] Operative Report 01/19/25 1642 MR#: [id number] Acct: [id number] Name: DELTA CHEEK Jr. Rep #: [id number] : 1975 49 From: Bryn Mccall MD PCP: Dr. Rogelio Colvin MD Status:ADM [facility] Location: [place] [address] Operative Report (Standard) Operative Information Date of [...] external iliac vein, right common iliac vein clip loading machine adjuster: No Type of Anesthesia: General RN Documented [...] patient procedure site patient was taken the [employer] he was placed on general anesthesia. He [...] micropuncture sheath and exchanged for an 8 Sammarinese sheath which was advanced over the wire [...] the micropuncture sheath exchanged for short 5 Sammarinese sheath. The Bentson wire was exchanged for [...] to circulate for 3 minutes. The 8 Sammarinese sheath was then exchanged for the Inari Protrieve distal protection sheath in the filter mechanism deployed. Next a [employer] [place] 10 (more content not included)... Normal [facility] Partial Thromboplast Timeon 01-19-2025 aPTT Coag (Bld) [Time] 31.8 s Normal 24.1-36.2 [facility] Comment on above: Performed By: #### L 300.4310 ####[facility] [address] [place], [address] MR/Sujatha 01-15-2025 MR/FILEMON.BISI [facility] Medical Records Department [address] [place] [address] PAT - Anesthesia 01/15/25 1631 MR#: [id number] Acct: [id number] Name: DELTA CHEEK Jr. Rep #: [id number] : 1975 49 From: Andrew Carranza MD PCP: Dr. 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 Hx Hospitalization No 01/15/25 13:38 Any Problems [...] take am of surgery PONV PONV - irrigation engineer: PONV - irrigation engineer Female No 01/15/25 13:38 HX of Motion [...] 01/14/25 10:56 Respiratory Assessment Respiratory Assessment - irrigation engineer: Respiratory Tract Infection Hx - irrigation engineer Hx Respiratory Tract Infection No 01/15/25 13:38 STOP Sleep Apnea STOP Sleep Apnea - irrigation engineer: STOP Sleep Apnea - irrigation engineer Hx Hypertension Yes: CONTROLLED ON MED 01/15/25 [...] Tobacco Use History Tobacco Use History - irrigation engineer: Tobacco Use History - irrigation engineer Tobacco Use Smoking Status Former smoker 01/15/25 13:38 Hx Tobacco Use No 01/15/25 13:38 Years Smoking Packs Smoked per Day Smoking Cessation Date was Yes - quit smoking within 15 01/15/25 13:38 within the last 15 years years Hx Smoking Cessation Date Hx Smoking Cessation Counseling Hematologic Medial History Hematologic Hx - irrigation engineer: 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 Normal [facility] Anion gap in Serum or Plasma Ordered By: Bryn Mccall on 01-14-2025 Anion gap [Moles/Vol] 11 mmol/L 5-15 [facility] BUN/creatinine ratioOrdered By: Bryn Mccall on 01-14-2025 Urea nitrogen/Creatinine [Mass ratio] 11.8 mg/mg 10-20 [facility] Basic Metabolic Profile (BMP )on 01-14-2025 BUN/CRE 11.8 RATIO Normal -20 [facility] Comment on above: Performed By: #### L 500.2500, L100.0500 #### [facility] [address] [place], [address] Calcium [Mass/Vol] 9.4 mg/dL Normal 7.6-11.0 [facility] Comment on above: Performed By: #### L 500.2500, L100.0500 #### [facility] [address] [place], [address] Chloride [Moles/Vol] 101 mmol/L Normal 98-108 [facility] Comment on above: Performed By: #### L 500.2500, L100.0500 #### [facility] [address] [place], [address] CO2 [Moles/Vol] 26.4 mmol/L Normal 21.0-32.0 [facility] Comment on above: Performed By: #### L 500.2500, L100.0500 #### [facility] [address] [place], [address] Creatinine [Mass/Vol] 1.17 mg/dL Normal 0.70-1.20 [facility] Comment on above: Performed By: #### L 500.2500, L100.0500 #### [facility] [address] [place], [address] ECRCL 100.60 ml/min Normal 50-250 [facility] Comment on above: Performed By: #### L 500.2500, L100.0500 #### [facility] [address] [place], [address] GAP 11 Normal 5-15 [facility] Comment on above: Performed By: #### L 500.2500, L100.0500 #### [facility] [address] [place], [address] GFR/1.73 sq M.predicted among non-blacks MDRD (S/P/Bld) [Vol rate/Area] 75 mL/min/{1.73_m2} Normal >60 [facility] Comment on above: Result Comment: mL/m in/1.73m2 CKD-EPI Creatinine Equation (2020) Performed By: #### L 500.2500, L100.0500 #### [facility] [address] [place], [address] Glucose [Mass/Vol] 102 mg/dL High 70-99 [facility] Comment on above: Performed By: #### L 500.2500, L100.0500 #### [facility] [address] [place], [address] Potassium [Moles/Vol] 4.1 mmol/L Normal 3.3-5.1 [facility] Comment on above: Performed By: #### L 500.2500, L100.0500 #### [facility] [address] [place], [address] Sodium [Moles/Vol] 138 mmol/L Normal 133-145 [facility] Comment on above: Performed By: #### L 500.2500, L100.0500 #### [facility] [address] [place], [address] Urea nitrogen [Mass/Vol] 14 mg/dL Normal 4-19 [facility] Comment on above: Performed By: #### L 500.2500, L100.0500 #### [facility] [address] [place], [address] CBC-Complete Blood Cnt No Di ffon 01-14-2025 Erythrocyte distribution width (RBC) [Ratio] 12.9 % Normal 11.6-14.6 [facility] Comment on above: Performed By: #### L 500.2500, L100.0500 #### [facility] [address] [place], [address] Hematocrit (Bld) [Volume fraction] 46.4 % Normal 40-54 [facility] Comment on above: Performed By: #### L 500.2500, L100.0500 #### [facility] [address] [place], [address] Hemoglobin (Bld) [Mass/Vol] 15.3 g/dL Normal 13.0-16.5 [facility] Comment on above: Performed By: #### L 500.2500, L100.0500 #### [facility] [address] [place], [address] MCH (RBC) [Entitic mass] 29.2 pg Normal 27.0-32.0 [facility] Comment on above: Performed By: #### L 500.2500, L100.0500 #### [facility] [address] [place], [address] MCHC (RBC) [Mass/Vol] 33.0 g/dL Normal 32-36 [facility] Comment on above: Performed By: #### L 500.2500, L100.0500 #### [facility] [address] [place], [address] MCV (RBC) [Entitic vol] 88.5 fL Normal 80-94 [facility] Comment on above: Performed By: #### L 500.2500, L100.0500 #### [facility] [address] [place], [address] Platelet mean volume (Bld) [Entitic vol] 8.8 fL Normal 6.2-12.0 [facility] Comment on above: Performed By: #### L 500.2500, L100.0500 #### [facility] [address] [place], [address] Platelets (Bld) [#/Vol] 259 10*3/uL Normal 150-450 [facility] Comment on above: Performed By: #### L 500.2500, L100.0500 #### [facility] [address] [place], [address] RBC (Bld) [#/Vol] 5.24 10*6/uL Normal 4.6-6.2 [facility] Comment on above: Performed By: #### L 500.2500, L100.0500 #### [facility] [address] [place], [address] RDW SD 41.6 fl Normal 35.1-43.9 [facility] Comment on above: Performed By: #### L 500.2500, L100.0500 #### [facility] [address] [place], [address] WBC (Bld) [#/Vol] 6.2 10*3/uL Normal 4.4-11.0 [facility] Comment on above: Performed By: #### L 500.2500, L100.0500 #### [facility] [address] [place], [address] Carbon dioxide, total [Moles /volume] in Central venous bloodOrdered By: Bryn Mccall on 01-14-2025 CO2 [Moles/Vol] 26.4 mmol/L 21.0-32.0 [facility] Chloride assayOrdered By: Bonifacio Mccall on 01-14-2025 Chloride [Moles/Vol] 101 mmol/L 98-108 [facility] Erythrocyte distribution wid th ratioOrdered By: Bryn Mccall on 01-14-2025 Erythrocyte distribution width (RBC) [Ratio] 12.9 % 11.6-14.6 [facility] Erythrocyte distribution wid th standard deviationOrdered By: Bryn Mccall on 01-14-2025 Erythrocyte distribution width (RBC) [Entitic vol] 41.6 fL 35.1-43.9 [facility] Erythrocyte distribution width (RBC) [Ratio] 41.6 fl 35.1-43.9 [facility] Estimation of creatinine obed aranceOrdered By: Bryn Mccall on 01-14-2025 Estimated Creatinine Clearance Calc 100.60 ml/min 50-250 [facility] GFR/1.73 sq M.predicted xander g non-blacks MDRD (S/P/Bld) [Vol rate/Area]Ordered By: Bryn Mccall on 01-14-2025 Estimated GFR (MDRD) Non-Af Amer 75 >60 [facility] Comment on above: mL/min/1.73m2 CKD-EP I Creatinine Equation (2020) Glomerular filtration rate ( GFR) estimation/1.73 sq m using serum, plasma, or whole bOrdered By: Bryn Mccall on 01-14-2025 GFR/1.73 sq M.predicted among non-blacks MDRD (S/P/Bld) [Vol rate/Area] 75 mL/min/{1.73_m2} >60 [facility] Comment on above: mL/min/1.73m2 CKD-EP I Creatinine Equation (2020) Hematocrit Auto (Bld) [Volum e fraction]Ordered By: Bryn Mccall on 01-14-2025 Hematocrit (Bld) [Volume fraction] 46.4 % 40-54 [facility] Hemoglobin measurementOrdere d By: Bryn Mccall on 01-14-2025 Hemoglobin (Bld) [Mass/Vol] 15.3 g/dL 13.0-16.5 [facility] MCV (mean corpuscular volume ) determinationOrdered By: Bryn Mccall on 01-14-2025 MCV (RBC) [Entitic vol] 88.5 fL 80-94 [facility] Mean corpuscular hemoglobin (MCH) determinationOrdered By: Bryn Mccall on 01-14-2025 MCH (RBC) [Entitic mass] 29.2 pg 27.0-32.0 [facility] Mean corpuscular hemoglobin concentration (MCHC) determinationOrdered By: Bryn Mccall on 01-14-2025 MCHC (RBC) [Mass/Vol] 33.0 g/dL 32-36 [facility] Mean platelet volume determi nationOrdered By: Bryn Mccall on 01-14-2025 Platelet mean volume (Bld) [Entitic vol] 8.8 fL 6.2-12.0 [facility] Operative Reporton 5 Operative Report [facility] Medical Records Department [address] [place] [address] Operative Report 01/14/25 1615 MR#: [id number] Acct: [id number] Name: DELTA CHEEK Jr. Rep #: [id number] : 1975 49 From: Bryn Mccall MD PCP: Dr. 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 Through this a Kumpe catheter and [...] superior aspect. Through the micropuncture sheath a NoteWagon wire was advanced the micropuncture sheath exchanged for an 8 Sammarinese sheath. Next intravascular ultrasound probe was advanced [...] common iliac (more content not included)... Normal [facility] Platelet countOrdered By: Bonifacio Mccall on 01-14-2025 Platelets (Bld) [#/Vol] 259 10*3/uL 150-450 [facility] Potassium (Unsp spec) [Mass/ Vol]Ordered By: Bryn Mccall on 01-14-2025 Potassium [Moles/Vol] 4.1 mmol/L 3.3-5.1 [facility] Potassium measurement (mass/ volume)Ordered By: Bryn Mccall on 01-14-2025 Potassium (Unsp spec) [Mass/Vol] 4.1 mmol/L 3.3-5.1 [facility] RBC Auto (Bld) [#/Vol]Ordere d By: Bryn Mccall on 01-14-2025 RBC (Bld) [#/Vol] 5.24 10*6/uL 4.6-6.2 [facility] Serum creatinine measurement (mass/volume)Ordered By: Bryn Mccall on 01-14-2025 Creatinine [Mass/Vol] 1.17 mg/dL 0.70-1.20 [facility] Serum glucose measurement (m ass/volume)Ordered By: Bryn Mccall on 01-14-2025 Glucose [Mass/Vol] 102 mg/dL High 70-99 [facility] Serum or plasma calcium rosangela urement (mass/volume)Ordered By: Bryn Mccall on 01-14-2025 Calcium [Mass/Vol] 9.4 mg/dL 7.6-11.0 [facility] Serum or plasma urea nitroge n measurement (mass/volume)Ordered By: Bryndebra Mccall on 01-14-2025 Urea nitrogen [Mass/Vol] 14 mg/dL 4-19 [facility] Sodium levelOrdered By: Bryn Stefany on 01-14-2025 Sodium [Moles/Vol] 138 mmol/L 133-145 [facility] White blood cell (WBC) count Ordered By: Byrn Mccall on 01-14-2025 WBC (Bld) [#/Vol] 6.2 10*3/uL 4.4-11.0 [facility] Lumbar Spine 2 or 3 Viewson 01-02-2025 Lumbar Spine 2 or 3 Views [facility] Imaging Services [address] [place], [place] [address] Lumbar Spine 2 or 3 Views MR#: [id number] Acct: [id number] Name: DELTA CHEEK Jr. Rep #: [id number] : 1975 M 49 From: Delta Prakash PCP: Dr. Rogelio Colvin MD Status: REG CLI Study: Lumbar Spine 2 or 3 Views Date of Exam: Exam# [id number] Ordering Dr: Teena Jacques PROCEDURE: Lumbar spine [...] JORGE A Schmitt; Dr. Rogelio Colvin MD Tax Advisor: Signed Normal [facility] MR/BMS.BVSon 01-02-2025 MR/BMS.BVS [facility] Vascular Surgery [address] [place] [address] OFFICE VISIT Date of Service: 01/02/25 MR#: [id number] Acct: [id number] Name: ADIADELTA Gilberto Chan Rep #: [id number] : 1975 Provider: JORGE A Schmitt Age/Sex: 49/M Location: [facility] [place].[facility] Status: Signed Intake Vital Signs 11/03/24 23:51 [...] of coor (more content not included)... Normal [facility] Ankle Brachial Indexon 12-12 Ankle Brachial Index [facility] Cardiovascular Services [address] [place] [address] Ankle Brachial Index 12/12/24 1028 MR#: [id number] Acct: [id number] Name: ADIADELTA Gilberto Chan Rep #: [id number] : 1975 49 From: Bryn Mccall MD Attending Dr: Dr. Rogelio Colvin MD Status: REG CLI Ordering Dr: Rogelio Colvin MD Date: 12/12/24 Location: [facility] Sex: M C Admitted: Reason For [...] COLVIN CHI, MD Performed By: [employer], T 12/15/24 1148 Date Bryn Mccall MD CC: Dr. Rogelio Colvin MD Date Dictated: 12/12/24 1028 Date Transcribed: 12/15/24 1148 Tax Advisor: Signed Normal [facility] HIP, UNI W/ Pelvis 2-3 Views on 11-24-2024 HIP, UNI W/ Pelvis 2-3 Views [facility] Imaging Services [address] [place] [address] HIP, UNI W/ Pelvis 2-3 Views MR#: [id number] Acct: [id number] Name: DELTA CHEEK Jr. Rep #: [id number] : 1975 M 49 From: Bahman Don MD PCP: Dr. Rogelio Colvin MD Status: REG CLI Study: HIP, UNI W/ Pelvis 2-3 Views Date of Exam: Exam# [id number] Ordering Dr: Rogelio Colvin MD [id number] STUDY: X-RAY - PELVIS AND LEFT [...] 10:06 EST Reading Location ID and State: [employer] / [place] , Service support , CC: Dr. Rogelio Colvin MD Tax Advisor: Signed Normal [facility] Venous Duplex US, Unilateral on 11-24-2024 Venous Duplex US, Unilateral [facility] Cardiovascular Services [address] [place] [address] Venous Duplex US, Unilateral 11/24/24 1331 MR#: [id number] Acct: [id number] Name: DELTA CHEEK Jr. 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 Normal venous flow noted. PopV is [...] Colvin Chi Performed By: Court Rod RVT 11/24/24 1739 Date Bryn Mccall MD CC: Dr. Bryn Mccall MD; Dr. Rogelio Colvin MD Date Dictated: 11/24/24 1331 Date Transcribed: 11/24/24 1739 Tax Advisor: Signed Normal [facility] 12 Lead EKGon 11-04-2024 12 Lead EKG [facility] Cardiovascular Services [address] [place] [place] [address] 12 Lead EKG 11/04/24 0011 MR#: [id number] Acct: [id number] Name: DELTA CHEEK Jr. Rep #: [id number] : 1975 49 From: Zack Smiley MD [...] ECG Confirmed by SHERICE TRISTAN, ZACK ([id number]), social media editor SARAH GOLDMAN ([id number]) on 11/06/2024 2:24:34 PM Referred By: Confirmed By: ZACK SMILEY MD 11/06/24 1424 Date Zack Smiley MD CC: Dr. Rogelio Colvin MD; Dr. Isrrael Garrett DO Signed Normal [facility] Abdomen/Pelvis W IV Cont ONL Yon 11-04-2024 Abdomen/Pelvis W IV Cont ONLY [facility] Imaging Services [address] [place] [address] Abdomen/Pelvis W IV Cont ONLY MR#: [id number] Acct: [id number] Name: DELTA CHEEK Jr. Rep #: [id number] : 1975 M 49 From: Marcin Augustin MD PCP: Dr. Rogelio Colvin MD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 By: #### L 500.2500, L100.0500 #### [facility] [address] [place], [address] RBC (Bld) [#/Vol] 4.79 10*6/uL Normal 4.6-6.2 [facility] Comment on above: Performed By: #### L 500.2500, L100.0500 #### [facility] [address] [place], [address] RDW SD 41.1 fl Normal 35.1-43.9 [facility] Comment on above: Performed By: #### L 500.2500, L100.0500 #### [facility] [address] [place], [address] WBC (Bld) [#/Vol] 5.0 10*3/uL Normal 4.4-11.0 [facility] Comment on above: Performed By: #### L 500.2500, L100.0500 #### [facility] [address] [place], [address] Comprehensive Metabolic Prof ilon 05-02-2024 Albumin [Mass/Vol] 3.7 g/dL Normal 3.2-5.0 [facility] Comment on above: Performed By: #### L 500.2500, L100.0500 #### [facility] [address] [place], [address] Albumin/Globulin [Mass ratio] 1.1 {ratio} Normal 0.9-2.4 [facility] Comment on above: Performed By: #### L 500.2500, L100.0500 #### [facility] [address] [place], [address] ALK P 83 U/L Normal 45-117 [facility] Comment on above: Performed By: #### L 500.2500, L100.0500 #### [facility] [address] [place], [address] ALT [Catalytic activity/Vol] 24 U/L Normal 16-61 [facility] Comment on above: Performed By: #### L 500.2500, L100.0500 #### [facility] [address] [place], [address] AST [Catalytic activity/Vol] 15 U/L Normal 15-37 [facility] Comment on above: Result Comment: Mode rate Hemolysis, Result may be falsely increased. Performed By: #### L 500.2500, L100.0500 #### [facility] [address] [place], [address] Bilirubin [Mass/Vol] 0.40 mg/dL Normal 0.20-1.00 [facility] Comment on above: Result Comment: For patients on eltrombopag therapy, use of Dimension [place] TBIL is not recommended. Performed By: #### L 500.2500, L100.0500 #### [facility] [address] [place], [address] BUN/CRE 26.5 RATIO High 10-20 [facility] Comment on above: Performed By: #### L 500.2500, L100.0500 #### [facility] [address] [place], [address] CA,Total 8.7 mg/dL Normal 8.5-10.1 [facility] Comment on above: Performed By: #### L 500.2500, L100.0500 #### [facility] [address] [place], [address] Chloride [Moles/Vol] 110 mmol/L High 98-107 [facility] Comment on above: Performed By: #### L 500.2500, L100.0500 #### [facility] [address] [place], [address] CO2 [Moles/Vol] 23.0 mmol/L Normal 21.0-32.0 [facility] Comment on above: Performed By: #### L 500.2500, L100.0500 #### [facility] [address] [place], [address] Creatinine [Mass/Vol] 0.91 mg/dL Normal 0.70-1.30 [facility] Comment on above: Result Comment: The validity of the calculated GFR GFRAA in patients over 70 years has not been determined. Clinical correlation is essential. Performed By: #### L 500.2500, L100.0500 #### [facility] [address] [place], [address] EST GFR - AA 114 mL/min Normal >60 [facility] Comment on above: Result Comment: Afri can Cypriot GFR Calc Performed By: #### L 500.2500, L100.0500 #### [facility] [address] [place], [address] GAP 7 Normal 5-15 [facility] Comment on above: Performed By: #### L 500.2500, L100.0500 #### [facility] [address] [place], [address] GFR/1.73 sq M.predicted among non-blacks MDRD (S/P/Bld) [Vol rate/Area] 94 mL/min/{1.73_m2} Normal >60 [facility] [facility] Comment on above: Result Comment: Non- GFR Calc Performed By: #### L 500.2500, L100.0500 #### [facility] [address] [place], [address] Globulin (S) [Mass/Vol] 3.4 g/dL Normal 2.2-4.2 [facility] Comment on above: Performed By: #### L 500.2500, L100.0500 #### [facility] [address] [place], [address] Glucose [Mass/Vol] 108 mg/dL High 74-106 [facility] Comment on above: Result Comment: Fast ing Glucose result from 100 to 125 mg/dL suggests IMPAIRED HOMEOSTASIS per A.D.A. criteria. Performed By: #### L 500.2500, L100.0500 #### [facility] [address] [place], [address] Potassium [Moles/Vol] 4.1 mmol/L Normal 3.5-5.1 [facility] Comment on above: Result Comment: Mode rate Hemolysis, Result may be falsely increased. Performed By: #### L 500.2500, L100.0500 #### [facility] [address] [place], [address] Sodium [Moles/Vol] 140 mmol/L Normal 136-145 [facility] Comment on above: Performed By: #### L 500.2500, L100.0500 #### [facility] [address] [place], [address] T PROT 7.1 g/dL Normal 6.4-8.2 [facility] Comment on above: Performed By: #### L 500.2500, L100.0500 #### [facility] [address] [place], [address] Urea nitrogen [Mass/Vol] 24 mg/dL High 7-18 [facility] Comment on above: Performed By: #### L 500.2500, L100.0500 #### [facility] [address] [place], [address] Lipid Profileon 05-02-2024 Cholesterol [Mass/Vol] 196 mg/dL Normal 200 [facility] Comment on above: Result Comment: <200 mg/dL Desirable 200-240 mg/dL Borderline >240 mg/dL High Risk Performed By: #### L 500.2500, L100.0500 #### [facility] [address] [place], [address] Cholesterol in HDL [Mass/Vol] 28 mg/dL Low [facility] Comment on above: Result Comment: The drugs N-Acetylcysteine and Metamizole may falsely depress this assay. Reference Range HDL <40 mg/dL Low HDL Cholesterol HDL >or= 60 mg/dL High HDL Cholesterol Performed By: #### L 500.2500, L100.0500 #### [facility] [address] [place], [address] LDL TNP Normal 0-130 [facility] Comment on above: Performed By: #### L 500.2500, L100.0500 #### [facility] [address] [place], [address] Triglyceride [Mass/Vol] 511 mg/dL High [facility] Comment on above: Result Comment: The drugs N-Acetylcysteine and Metamizole may falsely depress this assay. TRIGLYCERIDE IS GREATER THAN 400 mg/dL. LDL RESULT IS INVALID AND WILL NOT BE REPORTED. Serum Triglycerides Reference Interval Normal <150 mg/dL Borderline high 150 - 199 mg/dL High 200 - 499 mg/dL Very High > or = 500 mg/dL Performed By: #### L 500.2500, L100.0500 #### [facility] [address] [place], [address] VLDL TNP Normal 5-40 [facility] Comment on above: Performed By: #### L 500.2500, L100.0500 #### [facility] [address] [place], [address] Thyroid Stim Hormone (TSH)on 05-02-2024 TSH 1.83 uIU/mL Normal 0.358-3.74 [facility] Comment on above: Performed By: #### L 500.2500, L100.0500 #### [facility] [address] [place], [address] Venous Duplex US - [place] Extre mon 05-02-2024 Venous Duplex US - [place] Extrem [facility] [address] [place] [address] Venous Duplex US - [place] Extrem 05/02/2428 MR#: [id number] Acct: [id number] Name: ADIADELTA Gilberto Chan Rep #: [id number] : 1975 48 From: Bryn Mccall MD [...] Rogelio Colvin Chi Performed By: [employer], [facility] 05/12/24811 Date Bryn Mccall MD CC: JORGE A Schmitt; Dr. Rogelio Colvin MD Date Dictated: 05/02/24927 Date Transcribed: 05/12/24811 Tax Advisor: Signed Normal [facility] Emergency Department Summary on 04-29-2024 Emergency Department Summary [facility] Medical Records Department [address] [place] [address] Emergency Department Summary 04/29/24 MR#: [id number] Acct: [id number] Name: DELTA CHEEK Jr. Rep #: [id number] : 1975 48 From: Dimas Gill MD [...] pain or injuries. Tetanus Immunization: <5 years PFSH PFS Medical History DDD (degenerative disc disease), lumbar [...] and Local Irrigated (ml): 100 Number of Sutures/[place]: 5 Suture Information: Ethilon, Horizontal, Mattress and [...] - 10-14 Days suture removal Print Language: Honduran Disposition Disposition: Home, Self Care What to do if you have Problems Fo (more content not included)... Normal [facility] Tibia Fibula 2 Viewson 04-12 Tibia Fibula 2 Views [facility] Imaging Services [address] [place], [place] [address] Tibia Fibula 2 Views MR#: [id number] Acct: [id number] Name: DELTA CHEEK JrChristine Rep #: [id number] : 1975 M 48 From: Celestino Grant DO PCP: Dr. Rogelio Colvin MD Status: REG ER Study: Tibia Fibula 2 Views Date of Exam: 04/29/24 Exam# [id number] Ordering Dr: Dimas Gill MD [id number] INDICATION: chainsaw vs. leg EXAMINATION/TECHNI QUE: [...] Dimas Gill MD; Dr. Rogelio Colvin MD Tax Advisor: Signed Normal [facility] Basophil percentageOrdered B y: Teena Renteriahn on 10-16-2023 Chloride [Moles/Vol] 106 mmol/L 98-107 [facility] Glucose [Mass/Vol] 104 mg/dL 74-106 [facility] Comment on above: Fasting Glucose resu lt from 100 to 125 mg/dL suggests IMPAIRED HOMEOSTASIS per A.D.A. criteria. Potassium [Moles/Vol] 4.0 mmol/L 3.5-5.1 [facility] Comment on above: Moderate Hemolysis, Result may be falsely increased. Sodium [Moles/Vol] 138 mmol/L 136-145 [facility] Blood hemoglobin measurement (mass/volume)Ordered By: Teena Jacques on 10-16-2023 Hemoglobin (Bld) [Mass/Vol] 15.0 g/dL 13.0-16.5 [facility] - Chemistry and C hemistry - challengeOrdered By: Teena Jacques on 10-16-2023 CO2 [Moles/Vol] 30.0 mmol/L 21.0-32.0 [facility] Urea nitrogen/Creatinine [Mass ratio] 16.7 mg/mg 10-20 [facility] No Panel InformationOrdered By: Teena Jacques on 10-16-2023 Estimated GFR (MDRD) Amer 93 mL/min >60 [facility] Comment on above: GFR Calc Estimated GFR (MDRD) Non-Af Amer 77 mL/min >60 [facility] Comment on above: Non- GFR Calc Serum or plasma calcium rosangela urement (mass/volume)Ordered By: Teena Jacques on 10-16-2023 Calcium [Mass/Vol] 9.1 mg/dL 8.5-10.1 [facility] Serum or plasma creatinine m easurement (mass/volume)Ordered By: Teena Jacques on 10-16-2023 Creatinine [Mass/Vol] 1.08 mg/dL 0.70-1.30 [facility] Comment on above: The validity of the calculated GFR & GFRAA in patients over 70 years has not been determined. Clinical correlation is essential. Serum or plasma urea nitroge n measurement (mass/volume)Ordered By: Teena Jacques on 10-16-2023 Urea nitrogen [Mass/Vol] 18 mg/dL 7-18 [facility] Thin prep Papanicolaou smear with manual screeningOrdered By: Teena Jacques on 10-16-2023 Thin prep Papanicolaou smear with manual screening 2 5-15 [facility] Absolute lymphocyte countOrd ered By: Dr. Colvin on 05-02-2023 Lymphocytes Auto (Unsp spec) [#/Vol] 1.29 10*3/uL 0.83-4.51 [facility] Basophil percentageOrdered B y: Dr. Colvin on 05-02-2023 Basophils/100 WBC (Bld) 1.3 % 0-1 [facility] Bilirubin [Mass/Vol] 0.40 mg/dL 0.20-1.00 [facility] Comment on above: For patients on eltr ombopag therapy, use of Dimension [place] TBIL is not recommended. Chloride [Moles/Vol] 106 mmol/L 98-107 [facility] Eosinophils/100 WBC (Bld) 1.8 % 0-5 [facility] Glucose [Mass/Vol] 90 mg/dL 74-106 [facility] Neutrophils (Bld) [#/Vol] 3.5 10*3/uL 2.0-7.7 [facility] Neutrophils/100 WBC (Bld) 63.1 % 47-70 [facility] Potassium [Moles/Vol] 3.9 mmol/L 3.5-5.1 [facility] Protein [Mass/Vol] 7.2 g/dL 6.4-8.2 [facility] Sodium [Moles/Vol] 138 mmol/L 136-145 [facility] WBC (Bld) [#/Vol] 5.5 10*3/uL 4.4-11.0 [facility] Blood erythrocytes count (nu mber/volume)Ordered By: Dr. Colvin on 05-02-2023 RBC (Bld) [#/Vol] 5.20 10*6/uL 4.6-6.2 [facility] Blood hemoglobin measurement (mass/volume)Ordered By: Dr. Colvin on 05-02-2023 Hemoglobin (Bld) [Mass/Vol] 15.3 g/dL 13.0-16.5 [facility] Blood lymphocytes/100 leukoc ytesOrdered By: Dr. Colvin on 05-02-2023 Lymphocytes/100 WBC (Bld) 23.5 % 19-41 [facility] Blood monocytes/100 leukocyt esOrdered By: Dr. Colvin on 05-02-2023 Monocytes/100 WBC (Bld) 9.9 % 0-10 [facility] Blood platelet mean volumeOr dered By: Dr. Colvin on 05-02-2023 Platelet mean volume (Bld) [Entitic vol] 9.0 fL 6.2-12.0 [facility] Determination of erythrocyte mean corpuscular volume (MCV)Ordered By: Dr. Colvin on 05-02-2023 MCV (RBC) [Entitic vol] 89.0 fL 80-94 [facility] Hematocrit Auto (Bld) [Volum e fraction]Ordered By: Dr. Colvin on 05-02-2023 Hematocrit (Bld) [Volume fraction] 46.3 % 40-54 [facility] - Chemistry and C hemistry - challengeOrdered By: Dr. Colvin on 05-02-2023 ALP [Catalytic activity/Vol] 70 U/L 45-117 [facility] ALT [Catalytic activity/Vol] 38 U/L 16-61 [facility] CO2 [Moles/Vol] 27.0 mmol/L 21.0-32.0 [facility] Globulin (S) [Mass/Vol] 3.4 g/dL 2.2-4.2 [facility] Urea nitrogen/Creatinine [Mass ratio] 15.5 mg/mg 10-20 [facility] - Hematology and Cell countsOrdered By: Dr. Colvin on 05-02-2023 Erythrocyte distribution width (RBC) [Entitic vol] 39.1 fL 35.1-43.9 [facility] Erythrocyte distribution width (RBC) [Ratio] 12.0 % 11.6-14.6 [facility] Immature granulocytes/100 WBC (Bld) 0.400 % 0.0-0.9 [facility] Comment on above: IG% - Immature Granu locytes (promyelocytes, myelocytes and metamyelocytes) > 1% indicates that a LEFT SHIFT is Present. MCH (RBC) [Entitic mass] 29.4 pg 27.0-32.0 [facility] Nucleated RBC/100 WBC (Bld) [Ratio] 0 % 0-5 [facility] MCHC Auto (RBC) [Mass/Vol]Or dered By: Dr. Colvin on 05-02-2023 MCHC (RBC) [Mass/Vol] 33.0 g/dL 32-36 [facility] No Panel InformationOrdered By: Dr. Colvin on 05-02-2023 Estimated GFR (MDRD) Amer 98 mL/min >60 [facility] Comment on above: GFR Calc Estimated GFR (MDRD) Non-Af Amer 81 mL/min >60 [facility] Comment on above: Non- GFR Calc Thyroid Stimulating Hormone (TSH) 1.58 uIU/mL 0.358-3.74 [facility] Platelets bldOrdered By: Dr. Colvin on 05-02-2023 Platelets (Bld) [#/Vol] 259 10*3/uL 150-450 [facility] Serum or plasma albumin rosangela urement (mass/volume)Ordered By: Dr. Colvin on 05-02-2023 Albumin [Mass/Vol] 3.8 g/dL 3.2-5.0 [facility] Serum or plasma albumin/glob ulin mass ratioOrdered By: Dr. Colvin on 05-02-2023 Albumin/Globulin [Mass ratio] 1.1 {ratio} 0.9-2.4 [facility] Serum or plasma calcium rosangela urement (mass/volume)Ordered By: Dr. Colvin on 05-02-2023 Calcium [Mass/Vol] 8.9 mg/dL 8.5-10.1 [facility] Serum or plasma creatinine m easurement (mass/volume)Ordered By: Dr. Colvin on 05-02-2023 Creatinine [Mass/Vol] 1.03 mg/dL 0.70-1.30 [facility] Comment on above: The validity of the calculated GFR & GFRAA in patients over 70 years has not been determined. Clinical correlation is essential. Serum or plasma urea nitroge n measurement (mass/volume)Ordered By: Dr. Colvin on 05-02-2023 Urea nitrogen [Mass/Vol] 16 mg/dL 7-18 [facility] Thin prep Papanicolaou smear with manual screeningOrdered By: Dr. Colvin on 05-02-2023 Thin prep Papanicolaou smear with manual screening 17 U/L 15-37 [facility] Thin prep Papanicolaou smear with manual screening 5 5-15 [facility] Basophil percentageOrdered B y: Dr. Mccall on 04-17-2023 Chloride [Moles/Vol] 108 mmol/L 98-107 [facility] Glucose [Mass/Vol] 101 mg/dL 74-106 [facility] Comment on above: Fasting Glucose resu lt from 100 to 125 mg/dL suggests IMPAIRED HOMEOSTASIS per A.D.A. criteria. Potassium [Moles/Vol] 4.0 mmol/L 3.5-5.1 [facility] Sodium [Moles/Vol] 139 mmol/L 136-145 [facility] WBC (Bld) [#/Vol] 4.1 10*3/uL 4.4-11.0 [facility] Blood erythrocytes count (nu mber/volume)Ordered By: Dr. Mccall on 04-17-2023 RBC (Bld) [#/Vol] 4.83 10*6/uL 4.6-6.2 [facility] Blood hemoglobin measurement (mass/volume)Ordered By: Dr. Mccall on 04-17-2023 Hemoglobin (Bld) [Mass/Vol] 14.4 g/dL 13.0-16.5 [facility] Blood platelet mean volumeOr dered By: Dr. Mccall on 04-17-2023 Platelet mean volume (Bld) [Entitic vol] 9.1 fL 6.2-12.0 [facility] Determination of erythrocyte mean corpuscular volume (MCV)Ordered By: Dr. Mccall on 04-17-2023 MCV (RBC) [Entitic vol] 89.9 fL 80-94 [facility] Hematocrit Auto (Bld) [Volum e fraction]Ordered By: Dr. Mccall on 04-17-2023 Hematocrit (Bld) [Volume fraction] 43.4 % 40-54 [facility] - Chemistry and C hemistry - challengeOrdered By: Dr. Mccall on 04-17-2023 CO2 [Moles/Vol] 28.0 mmol/L 21.0-32.0 [facility] Urea nitrogen/Creatinine [Mass ratio] 17.3 mg/mg 10-20 [facility] - Hematology and Cell countsOrdered By: Dr. Mccall on 04-17-2023 Erythrocyte distribution width (RBC) [Entitic vol] 40.0 fL 35.1-43.9 [facility] Erythrocyte distribution width (RBC) [Ratio] 12.3 % 11.6-14.6 [facility] MCH (RBC) [Entitic mass] 29.8 pg 27.0-32.0 [facility] MCHC Auto (RBC) [Mass/Vol]Or dered By: Dr. Mccall on 04-17-2023 MCHC (RBC) [Mass/Vol] 33.2 g/dL 32-36 [facility] No Panel InformationOrdered By: Dr. Mccall on 04-17-2023 Estimated Creatinine Clearance Calc 106.01 ml/min [facility] Estimated GFR (MDRD) Amer 104 mL/min >60 [facility] Comment on above: GFR Calc Estimated GFR (MDRD) Non-Af Amer 86 mL/min >60 [facility] Comment on above: Non- GFR Calc Platelets bldOrdered By: Dr. Mccall on 04-17-2023 Platelets (Bld) [#/Vol] 237 10*3/uL 150-450 [facility] Serum or plasma calcium rosangela urement (mass/volume)Ordered By: Dr. Mccall on 04-17-2023 Calcium [Mass/Vol] 8.7 mg/dL 8.5-10.1 [facility] Serum or plasma creatinine m easurement (mass/volume)Ordered By: Dr. Mccall on 04-17-2023 Creatinine [Mass/Vol] 0.98 mg/dL 0.70-1.30 [facility] Comment on above: The validity of the calculated GFR & GFRAA in patients over 70 years has not been determined. Clinical correlation is essential. Serum or plasma urea nitroge n measurement (mass/volume)Ordered By: Dr. Mccall on 04-17-2023 Urea nitrogen [Mass/Vol] 17 mg/dL 7-18 [facility] Thin prep Papanicolaou smear with manual screeningOrdered By: Dr. Mccall on 04-17-2023 Thin prep Papanicolaou smear with manual screening 3 5-15 [facility] No Panel InformationOrdered By: Rogelio Colvin on 03-06-2023 Influenza Types A,B Direct FA (JAMIE) [facility] No Panel InformationOrdered By: Dr. Colvin on 03-06-2023 Influenza Types A,B Direct FA ([facility]) [facility] RSV Ag EIAOrdered By: Rogelio armendariz on 03-06-2023 RSV Ag Immune stain Ql (Tiss) [facility] RSV Ag EIAOrdered By: Dr. Iliana armendariz on 03-06-2023 RSV Ag Immune stain Ql (Tiss) [facility] Absolute lymphocyte countOrd ered By: Dr. Gill on 01-11-2023 Lymphocytes Auto (Unsp spec) [#/Vol] 2.87 10*3/uL 0.83-4.51 [facility] Basophil percentageOrdered B y: Dr. Gill on 01-11-2023 Basophils/100 WBC (Bld) 0.6 % 0-1 [facility] Chloride [Moles/Vol] 103 mmol/L 98-107 [facility] Eosinophils/100 WBC (Bld) 1.8 % 0-5 [facility] Glucose [Mass/Vol] 134 mg/dL 74-106 [facility] Comment on above: Fasting Glucose resu lt greater than or equal to 126 mg/dL suggests DIABETES MELLITUS per A.D.A. criteria. Neutrophils (Bld) [#/Vol] 6.7 10*3/uL 2.0-7.7 [facility] Neutrophils/100 WBC (Bld) 61.4 % 47-70 [facility] Potassium [Moles/Vol] 3.4 mmol/L 3.5-5.1 [facility] Sodium [Moles/Vol] 139 mmol/L 136-145 [facility] WBC (Bld) [#/Vol] 10.8 10*3/uL 4.4-11.0 [facility] Basophil percentageOrdered B y: Dr. Mccall on 01-11-2023 Chloride [Moles/Vol] 105 mmol/L 98-107 [facility] Glucose [Mass/Vol] 110 mg/dL 74-106 [facility] Comment on above: Fasting Glucose resu lt from 100 to 125 mg/dL suggests IMPAIRED HOMEOSTASIS per A.D.A. criteria. Potassium [Moles/Vol] 3.9 mmol/L 3.5-5.1 [facility] Sodium [Moles/Vol] 140 mmol/L 136-145 [facility] WBC (Bld) [#/Vol] 6.3 10*3/uL 4.4-11.0 [facility] Blood erythrocytes count (nu mber/volume)Ordered By: Dr. Gill on 01-11-2023 RBC (Bld) [#/Vol] 4.73 10*6/uL 4.6-6.2 [facility] Blood erythrocytes count (nu mber/volume)Ordered By: Dr. Mccall on 01-11-2023 RBC (Bld) [#/Vol] 4.16 10*6/uL 4.6-6.2 [facility] Blood hemoglobin measurement (mass/volume)Ordered By: Dr. Gill on 01-11-2023 Hemoglobin (Bld) [Mass/Vol] 14.3 g/dL 13.0-16.5 [facility] Blood hemoglobin measurement (mass/volume)Ordered By: Dr. Mccall on 01-11-2023 Hemoglobin (Bld) [Mass/Vol] 12.3 g/dL 13.0-16.5 [facility] Blood lymphocytes/100 leukoc ytesOrdered By: Dr. Gill on 01-11-2023 Lymphocytes/100 WBC (Bld) 26.5 % 19-41 [facility] Blood monocytes/100 leukocyt esOrdered By: Dr. Gill on 01-11-2023 Monocytes/100 WBC (Bld) 9.4 % 0-10 [facility] Blood platelet mean volumeOr dered By: Dr. Gill on 01-11-2023 Platelet mean volume (Bld) [Entitic vol] 9.1 fL 6.2-12.0 [facility] Blood platelet mean volumeOr dered By: Dr. Mccall on 01-11-2023 Platelet mean volume (Bld) [Entitic vol] 8.7 fL 6.2-12.0 [facility] Determination of erythrocyte mean corpuscular volume (MCV)Ordered By: Dr. Gill on 01-11-2023 MCV (RBC) [Entitic vol] 90.9 fL 80-94 [facility] Determination of erythrocyte mean corpuscular volume (MCV)Ordered By: Dr. Mccall on 01-11-2023 MCV (RBC) [Entitic vol] 91.1 fL 80-94 [facility] Glucose Glucometer (BldC) [M ass/Vol]Ordered By: Dr. Gill on 01-11-2023 Glucose [Mass/Vol] 150 mg/dL 74-106 [facility] Comment on above: MANAGEMENT OF PATIEN T CARE PER NURSING PROTOCOL Hematocrit Auto (Bld) [Volum e fraction]Ordered By: Dr. Gill on 01-11-2023 Hematocrit (Bld) [Volume fraction] 43.0 % 40-54 [facility] Hematocrit Auto (Bld) [Volum e fraction]Ordered By: Dr. Mccall on 01-11-2023 Hematocrit (Bld) [Volume fraction] 37.9 % [facility] - Chemistry and C hemistry - challengeOrdered By: Dr. Gill on 01-11-2023 CO2 [Moles/Vol] 31.0 mmol/L 21.0-32.0 [facility] Urea nitrogen/Creatinine [Mass ratio] 15.8 mg/mg 08-31 [facility] - Chemistry and C hemistry - challengeOrdered By: Dr. Mccall on 01-11-2023 CO2 [Moles/Vol] 30.0 mmol/L 21.0-32.0 [facility] Urea nitrogen/Creatinine [Mass ratio] 16.1 mg/mg 08-31 [facility] - CoagulationOrde red By: Dr. Mccall on 01-11-2023 aPTT Coag (Bld) [Time] 51.2 s 24.1-36.2 [facility] - Hematology and Cell countsOrdered By: Dr. Gill on 01-11-2023 Erythrocyte distribution width (RBC) [Entitic vol] 42.2 fL 35.1-43.9 [facility] Erythrocyte distribution width (RBC) [Ratio] 12.7 % 11.6-14.6 [facility] Immature granulocytes/100 WBC (Bld) 0.300 % 0.0-0.9 [facility] Comment on above: IG% - Immature Granu locytes (promyelocytes, myelocytes and metamyelocytes) > 1% indicates that a LEFT SHIFT is Present. MCH (RBC) [Entitic mass] 30.2 pg 27.0-32.0 [facility] Nucleated RBC/100 WBC (Bld) [Ratio] 0 % 0-5 [facility] - Hematology and Cell countsOrdered By: Dr. Mccall on 01-11-2023 Erythrocyte distribution width (RBC) [Entitic vol] 42.2 fL 35.1-43.9 [facility] Erythrocyte distribution width (RBC) [Ratio] 12.8 % 11.6-14.6 [facility] MCH (RBC) [Entitic mass] 29.6 pg 27.0-32.0 [facility] MCHC Auto (RBC) [Mass/Vol]Or dered By: Dr. Gill on 01-11-2023 MCHC (RBC) [Mass/Vol] 33.3 g/dL 32-36 [facility] MCHC Auto (RBC) [Mass/Vol]Or dered By: Dr. Mccall on 01-11-2023 MCHC (RBC) [Mass/Vol] 32.5 g/dL 32-36 [facility] No Panel InformationOrdered By: Dr. Gill on 01-11-2023 Estimated Creatinine Clearance Calc 91.13 ml/min [facility] Estimated GFR (MDRD) Amer 88 mL/min >60 [facility] Comment on above: GFR Calc Estimated GFR (MDRD) Non-Af Amer 72 mL/min >60 [facility] Comment on above: Non- GFR Calc Troponin I High Sensitivity 7 pg/mL 3.0-78.0 [facility] Comment on above: Please Note: New Melissa t Units and Gender Specific Reference Ranges. For more information see Policy Stat Procedure [place] High Sensitivity Troponin (TNIH) and attachments. No Panel InformationOrdered By: Dr. Mccall on 01-11-2023 Estimated Creatinine Clearance Calc 103.89 ml/min [facility] Estimated GFR (MDRD) Amer 103 mL/min >60 [facility] Comment on above: GFR Calc Estimated GFR (MDRD) Non-Af Amer 85 mL/min >60 [facility] Comment on above: Non- GFR Calc Platelets bldOrdered By: Dr. Gill on 01-11-2023 Platelets (Bld) [#/Vol] 337 10*3/uL 150-450 [facility] Platelets bldOrdered By: Dr. Mccall on 01-11-2023 Platelets (Bld) [#/Vol] 215 10*3/uL 150-450 [facility] Serum or plasma calcium rosangela urement (mass/volume)Ordered By: Dr. Gill on 01-11-2023 Calcium [Mass/Vol] 8.8 mg/dL 8.5-10.1 [facility] Serum or plasma calcium rosangela urement (mass/volume)Ordered By: Dr. Mccall on 01-11-2023 Calcium [Mass/Vol] 8.6 mg/dL 8.5-10.1 [facility] Serum or plasma creatinine m easurement (mass/volume)Ordered By: Dr. Gill on 01-11-2023 Creatinine [Mass/Vol] 1.14 mg/dL 0.70-1.30 [facility] Comment on above: The validity of the calculated GFR & GFRAA in patients over 70 years has not been determined. Clinical correlation is essential. Serum or plasma creatinine m easurement (mass/volume)Ordered By: Dr. Mccall on 01-11-2023 Creatinine [Mass/Vol] 1.00 mg/dL 0.70-1.30 [facility] Comment on above: The validity of the calculated GFR & GFRAA in patients over 70 years has not been determined. Clinical correlation is essential. Serum or plasma urea nitroge n measurement (mass/volume)Ordered By: Dr. Gill on 01-11-2023 Urea nitrogen [Mass/Vol] 18 mg/dL - [facility] Serum or plasma urea nitroge n measurement (mass/volume)Ordered By: Dr. Mccall on 01-11-2023 Urea nitrogen [Mass/Vol] 16 mg/dL - [facility] Thin prep Papanicolaou smear with manual screeningOrdered By: Dr. Gill on 01-11-2023 Thin prep Papanicolaou smear with manual screening 5 - [facility] Thin prep Papanicolaou smear with manual screeningOrdered By: Dr. Mccall on 01-11-2023 Thin prep Papanicolaou smear with manual screening 5 5- [facility] Absolute lymphocyte countOrd ered By: Teena Reynolds on 01-10-2023 Lymphocytes Auto (Unsp spec) [#/Vol] 1.56 10*3/uL 0.83-4.51 [facility] Basophil percentageOrdered B y: Teena Reynolds on 01-10-2023 Basophils/100 WBC (Bld) 0.7 % 0-1 [facility] Eosinophils/100 WBC (Bld) 2.6 % 0-5 [facility] Neutrophils (Bld) [#/Vol] 3.1 10*3/uL 2.0-7.7 [facility] Neutrophils/100 WBC (Bld) 57.9 % 47-70 [facility] Blood lymphocytes/100 leukoc ytesOrdered By: Teena Reynolds on 01-10-2023 Lymphocytes/100 WBC (Bld) 29.2 % 19-41 [facility] Blood monocytes/100 leukocyt esOrdered By: Teena Reynolds on 01-10-2023 Monocytes/100 WBC (Bld) 9.2 % 0-10 [facility] Laboratory - Hematology and Cell countsOrdered By: Teena Reynolds on 01-10-2023 Immature granulocytes/100 WBC (Bld) 0.400 % 0.0-0.9 [facility] Comment on above: IG% - Immature Granu locytes (promyelocytes, myelocytes and metamyelocytes) > 1% indicates that a LEFT SHIFT is Present. Nucleated RBC/100 WBC (Bld) [Ratio] 0 % 0-5 [facility] No Panel InformationOrdered By: Dr. Mccall on 01-10-2023 Activated Clotting Time 215 sec 74-137 [facility] INR in Blood by Coagulation assayOrdered By: Teena Reynolds on 01-09-2023 INR Coag (Bld) [Relative time] 1.5 {INR} [facility] Laboratory - CoagulationOrde red By: Teena Reynolds on 01-09-2023 PT Coag (PPP) [Time] 17.5 s 11.7-14.9 [facility] Absolute lymphocyte countOrd ered By: Kirstin Javier on 12-31-2022 Lymphocytes Auto (Unsp spec) [#/Vol] 1.34 10*3/uL 0.83-4.51 [facility] Basophil percentageOrdered B y: Kirstin Javier on 12-31-2022 Basophil percentage 0-5 SEEN /hpf 0-[address] [facility] Basophils/100 WBC (Bld) 0.3 % 0-1 [facility] Chloride [Moles/Vol] 106 mmol/L 98-107 [facility] Eosinophils/100 WBC (Bld) 1.2 % 0-5 [facility] Glucose [Mass/Vol] 130 mg/dL 74-106 [facility] Comment on above: Fasting Glucose resu lt greater than or equal to 126 mg/dL suggests DIABETES MELLITUS per A.D.A. criteria. Neutrophils (Bld) [#/Vol] 8.7 10*3/uL 2.0-7.7 [facility] Neutrophils/100 WBC (Bld) 78.1 % 47-70 [facility] Potassium [Moles/Vol] 4.1 mmol/L 3.5-5.1 [facility] Sodium [Moles/Vol] 140 mmol/L 136-145 [facility] WBC (Bld) [#/Vol] 11.1 10*3/uL 4.4-11.0 [facility] Bilirubin Test strip Ql (U)O rdered By: Kirstin Javier on 12-31-2022 Bilirubin Ql (U) Negative Negative [facility] Blood erythrocytes count (nu mber/volume)Ordered By: Kirstin Javier on 12-31-2022 RBC (Bld) [#/Vol] 5.08 10*6/uL 4.6-6.2 [facility] Blood hemoglobin measurement (mass/volume)Ordered By: Kirstin Javier on 12-31-2022 Hemoglobin (Bld) [Mass/Vol] 15.4 g/dL 13.0-16.5 [facility] Blood lymphocytes/100 leukoc ytesOrdered By: Kirstin Javier on 12-31-2022 Lymphocytes/100 WBC (Bld) 12.1 % 19-41 [facility] Blood monocytes/100 leukocyt esOrdered By: Kirstin Javier on 12-31-2022 Monocytes/100 WBC (Bld) 8.0 % 0-10 [facility] Blood platelet mean volumeOr dered By: Kirstin Javier on 12-31-2022 Platelet mean volume (Bld) [Entitic vol] 9.1 fL 6.2-12.0 [facility] Determination of erythrocyte mean corpuscular volume (MCV)Ordered By: Kirstin Javier on 12-31-2022 MCV (RBC) [Entitic vol] 89.6 fL 80-94 [facility] Hematocrit Auto (Bld) [Volum e fraction]Ordered By: Kirstin Javier on 12-31-2022 Hematocrit (Bld) [Volume fraction] 45.5 % 40-54 [facility] Ketones Test strip Ql (U)Ord ered By: Kirstin Javier on 12-31-2022 Ketones Ql (U) Negative Negative [facility] Laboratory - Chemistry and C hemistry - challengeOrdered By: Kirstin Javier on 12-31-2022 CK [Catalytic activity/Vol] 26 U/L 39-308 [facility] CO2 [Moles/Vol] 28.0 mmol/L 21.0-32.0 [facility] Urea nitrogen/Creatinine [Mass ratio] 26.6 mg/mg 10-20 [facility] Laboratory - Hematology and Cell countsOrdered By: Kirstin Javire on 12-31-2022 Erythrocyte distribution width (RBC) [Entitic vol] 41.0 fL 35.1-43.9 [facility] Erythrocyte distribution width (RBC) [Ratio] 12.5 % 11.6-14.6 [facility] Immature granulocytes/100 WBC (Bld) 0.300 % 0.0-0.9 [facility] Comment on above: IG% - Immature Granu locytes (promyelocytes, myelocytes and metamyelocytes) > 1% indicates that a LEFT SHIFT is Present. MCH (RBC) [Entitic mass] 30.3 pg 27.0-32.0 [facility] Nucleated RBC/100 WBC (Bld) [Ratio] 0 % 0-5 [facility] MCHC Auto (RBC) [Mass/Vol]Or dered By: Kirstin Javier on 12-31-2022 MCHC (RBC) [Mass/Vol] 33.8 g/dL 32-36 [facility] Mucus LM Ql (Urine sed)Order ed By: Kirstin Javier on 12-31-2022 Mucus Ql (Urine sed) RARE /hpf [facility] Nitrite Test strip Ql (U)Ord ered By: Kirstin Javier on 12-31-2022 Nitrite Ql (U) Negative Negative [facility] No Panel InformationOrdered By: Kirstin Javier on 12-31-2022 Estimated Creatinine Clearance Calc 106.01 ml/min [facility] Estimated GFR (MDRD) Amer 105 mL/min >60 [facility] Comment on above: GFR Calc Estimated GFR (MDRD) Non-Af Amer 87 mL/min >60 [facility] Comment on above: Non- GFR Calc Platelets bldOrdered By: Melvina Javier on 12-31-2022 Platelets (Bld) [#/Vol] 182 10*3/uL 150-450 [facility] Protein Test strip Ql (U)Ord ered By: Kirstin Javier on 12-31-2022 Protein Ql (U) 15 mg/dl Negative [facility] Serum or plasma calcium rosangela urement (mass/volume)Ordered By: Kirstin Javier on 12-31-2022 Calcium [Mass/Vol] 9.1 mg/dL 8.5-10.1 [facility] Serum or plasma creatinine m easurement (mass/volume)Ordered By: Kirstin Javier on 12-31-2022 Creatinine [Mass/Vol] 0.98 mg/dL 0.70-1.30 [facility] Comment on above: The validity of the calculated GFR & GFRAA in patients over 70 years has not been determined. Clinical correlation is essential. Serum or plasma urea nitroge n measurement (mass/volume)Ordered By: Kirstin Javier on 12-31-2022 Urea nitrogen [Mass/Vol] 26 mg/dL 7-18 [facility] Squamous epithelial cells de tection in urine sediment by light microscopyOrdered By: Kirstin Javier on 12-31-2022 Epithelial cells.squamous LM Ql (Urine sed) 0-5 SEEN /hpf 0-5 [facility] Thin prep Papanicolaou smear with manual screeningOrdered By: Kirstin Javier on 12-31-2022 Thin prep Papanicolaou smear with manual screening 6 5-15 [facility] Urine blood detectionOrdered By: Kirstin Javier on 12-31-2022 RBC Ql (U) 10 /ul Negative [facility] RBC Ql (U) 0-5 SEEN /hpf 0-5 [facility] Urine clarityOrdered By: Melvina Javier on 12-31-2022 Clarity (U) Sl. Cloudy Clear [facility] Urine color determinationOrd ered By: Kirstin Javier on 12-31-2022 Color (U) Yellow Yellow [facility] Urine glucose detectionOrder ed By: Kirstin Javier on 12-31-2022 Glucose Ql (U) Normal mg/dl Normal [facility] Urine leukocyte esterase det ection by dipstickOrdered By: Kirstin Javier on 12-31-2022 Leukocyte esterase Test strip Ql (U) Negative Negative [facility] Urine pHOrdered By: Kirstin vargas on 12-31-2022 pH (U) 5.0 [pH] 5.0 - 8.0 [facility] Urine sediment bacteria coun t by microscopy (number/high power field)Ordered By: Kristin Javier on 12-31-2022 Bacteria LM.HPF (Urine sed) [#/Area] RARE /hpf None Seen [facility] Urine specific gravity measu rementOrdered By: Kirstin Javier on 12-31-2022 Specific gravity (U) [Rel density] 1.025 1.002-1.030 [facility] Urobilinogen Auto test strip Ql (U)Ordered By: Kirstin Javier on 12-31-2022 Urobilinogen Ql (U) 1 mg/dl Normal [facility] EMERGENCY REPORTon 3 EMERGENCY REPORT [facility] EMERGENCY ROOM REPORT NAME ACCOUNT SEX AGE ADMIT DISCHARGE PT MED. RECORD# NUMBER DATE DATE TYPE ADIA [id number] M 47 12/04/22 12/04/22 3 DELTA Macias [id number] ROOM: ER DATE OF : 1975 DICTATING [...] and Percocet, which were called in to [facility] in [place]. Limited activity over the next 2 to 4 days and then as tolerated. I recommended follow-up with his family physician or Orthopedics for further management, returning if symptoms worsen. Dictated By: Cj Leiva MD 12/04/22 11:56 JOB #: [id number] Transcribed By: richmond 12/05/22 18:18 Electronically signed by: MAC Leiva M.D. 12/08/22 07:37 Page 2 of 2 DELTA CHEEK Emergency Room Report Normal [facility] Absolute lymphocyte countOrd ered By: Dr. Jeffery on 12-06-2022 Lymphocytes Auto (Unsp spec) [#/Vol] 0.72 10*3/uL 0.83-4.51 [facility] Basophil percentageOrdered B y: Jacek Raygoza on 12-06-2022 Basophil percentage 0 SEEN /hpf 0-5 [facility] Basophil percentageOrdered B y: Dr. Jeffery on 12-06-2022 Basophils/100 WBC (Bld) 0.1 % 0-1 [facility] Chloride [Moles/Vol] 109 mmol/L 98-107 [facility] Eosinophils/100 WBC (Bld) 0.0 % 0-5 [facility] Glucose [Mass/Vol] 127 mg/dL 74-106 [facility] Comment on above: Fasting Glucose resu lt greater than or equal to 126 mg/dL suggests DIABETES MELLITUS per A.D.A. criteria. Neutrophils (Bld) [#/Vol] 8.7 10*3/uL 2.0-7.7 [facility] Neutrophils/100 WBC (Bld) 90.1 % 47-70 [facility] Potassium [Moles/Vol] 4.0 mmol/L 3.5-5.1 [facility] Sodium [Moles/Vol] 140 mmol/L 136-145 [facility] WBC (Bld) [#/Vol] 9.7 10*3/uL 4.4-11.0 [facility] Bilirubin Test strip Ql (U)O rdered By: Jacek Raygoza on 12-06-2022 Bilirubin Ql (U) Negative Negative [facility] Blood erythrocytes count (nu mber/volume)Ordered By: Dr. Jeffery on 12-06-2022 RBC (Bld) [#/Vol] 5.02 10*6/uL 4.6-6.2 [facility] Blood hemoglobin measurement (mass/volume)Ordered By: Dr. Jeffery on 12-06-2022 Hemoglobin (Bld) [Mass/Vol] 14.6 g/dL 13.0-16.5 [facility] Blood lymphocytes/100 leukoc ytesOrdered By: Dr. Jeffery on 12-06-2022 Lymphocytes/100 WBC (Bld) 7.4 % 19-41 [facility] Blood monocytes/100 leukocyt esOrdered By: Dr. Jeffery on 12-06-2022 Monocytes/100 WBC (Bld) 1.9 % 0-10 [facility] Blood platelet mean volumeOr dered By: Dr. Jeffery on 12-06-2022 Platelet mean volume (Bld) [Entitic vol] 9.4 fL 6.2-12.0 [facility] Determination of erythrocyte mean corpuscular volume (MCV)Ordered By: Dr. Jeffery on 12-06-2022 MCV (RBC) [Entitic vol] 86.3 fL 80-94 [facility] Hematocrit Auto (Bld) [Volum e fraction]Ordered By: Dr. Jeffery on 12-06-2022 Hematocrit (Bld) [Volume fraction] 43.3 % 40-54 [facility] Ketones Test strip Ql (U)Ord ered By: Jacek Raygoza on 12-06-2022 Ketones Ql (U) Negative Negative [facility] Laboratory - Chemistry and C hemistry - challengeOrdered By: Dr. Jeffery on 12-06-2022 CO2 [Moles/Vol] 25.0 mmol/L 21.0-32.0 [facility] Urea nitrogen/Creatinine [Mass ratio] 15.5 mg/mg 10-20 [facility] Laboratory - Hematology and Cell countsOrdered By: Dr. Jeffery on 12-06-2022 Erythrocyte distribution width (RBC) [Entitic vol] 38.5 fL 35.1-43.9 [facility] Erythrocyte distribution width (RBC) [Ratio] 12.4 % 11.6-14.6 [facility] Immature granulocytes/100 WBC (Bld) 0.500 % 0.0-0.9 [facility] Comment on above: IG% - Immature Granu locytes (promyelocytes, myelocytes and metamyelocytes) > 1% indicates that a LEFT SHIFT is Present. MCH (RBC) [Entitic mass] 29.1 pg 27.0-32.0 [facility] Nucleated RBC/100 WBC (Bld) [Ratio] 0 % 0-5 [facility] MCHC Auto (RBC) [Mass/Vol]Or dered By: Dr. Jeffery on 12-06-2022 MCHC (RBC) [Mass/Vol] 33.7 g/dL 32-36 [facility] Mucus LM Ql (Urine sed)Order ed By: Jacek Raygoza on 12-06-2022 Mucus Ql (Urine sed) 0 SEEN /hpf [facility] Nitrite Test strip Ql (U)Ord ered By: Jacek Raygoza on 12-06-2022 Nitrite Ql (U) Negative Negative [facility] No Panel InformationOrdered By: Dr. Jeffery on 12-06-2022 Estimated Creatinine Clearance Calc 89.56 ml/min [facility] Estimated GFR (MDRD) Amer 86 mL/min >60 [facility] Comment on above: GFR Calc Estimated GFR (MDRD) Non-Af Amer 71 mL/min >60 [facility] Comment on above: Non- GFR Calc Platelets bldOrdered By: Dr. Jeffery on 12-06-2022 Platelets (Bld) [#/Vol] 230 10*3/uL 150-450 [facility] Protein Test strip Ql (U)Ord ered By: Jacek Raygoza on 12-06-2022 Protein Ql (U) Negative Negative [facility] Serum or plasma calcium rosangela urement (mass/volume)Ordered By: Dr. Jeffery on 12-06-2022 Calcium [Mass/Vol] 8.8 mg/dL 8.5-10.1 [facility] Serum or plasma creatinine m easurement (mass/volume)Ordered By: Dr. Jeffery on 12-06-2022 Creatinine [Mass/Vol] 1.16 mg/dL 0.70-1.30 [facility] Comment on above: The validity of the calculated GFR & GFRAA in patients over 70 years has not been determined. Clinical correlation is essential. Serum or plasma urea nitroge n measurement (mass/volume)Ordered By: Dr. Jeffery on 12-06-2022 Urea nitrogen [Mass/Vol] 18 mg/dL 7-18 [facility] Squamous epithelial cells de tection in urine sediment by light microscopyOrdered By: Jacek Raygoza on 12-06-2022 Epithelial cells.squamous LM Ql (Urine sed) 0 SEEN /hpf 0-5 [facility] Thin prep Papanicolaou smear with manual screeningOrdered By: Dr. Jeffery on 12-06-2022 Thin prep Papanicolaou smear with manual screening 6 5-15 [facility] Urine blood detectionOrdered By: Jacek Raygoza on 12-06-2022 RBC Ql (U) Negative Negative [facility] RBC Ql (U) 0 SEEN /hpf 0-5 [facility] Urine clarityOrdered By: Yevgeniy Raygoza on 12-06-2022 Clarity (U) Clear Clear [facility] Urine color determinationOrd ered By: Jacek Raygoza on 12-06-2022 Color (U) Yellow Yellow [facility] Urine glucose detectionOrder ed By: Jacek Raygoza on 12-06-2022 Glucose Ql (U) Normal mg/dl Normal [facility] Urine leukocyte esterase det ection by dipstickOrdered By: Jacek Raygoza on 12-06-2022 Leukocyte esterase Test strip Ql (U) Negative Negative [facility] Urine pHOrdered By: Jacek zamorano on 12-06-2022 pH (U) 8.0 [pH] 5.0 - 8.0 [facility] Urine sediment bacteria coun t by microscopy (number/high power field)Ordered By: Jacek Raygoza on 12-06-2022 Bacteria LM.HPF (Urine sed) [#/Area] 0 /[HPF] None Seen [facility] Urine specific gravity measu rementOrdered By: Jacek Raygoza on 12-06-2022 Specific gravity (U) [Rel density] 1.015 1.002-1.030 [facility] Urobilinogen Auto test strip Ql (U)Ordered By: Jacek Raygoza on 12-06-2022 Urobilinogen Ql (U) Normal mg/dl Normal [facility] CT LUMBAR W/O CONTRASTon CT LUMBAR W/O CONTRAST [place] [address] Patient: DELTA CHEEK Phone#: : 1975 Age: 47 Gender: M Pt. Type: ER Account: [id number] Location: [facility] Ordering: CJ LEIVA Exam Date: 12/04/2022/9:42 Family Phys: ROGELIO COLVIN Charge Code: 639522 Physician: [place] Order #: [id number] Dose#: 28.9 mGy PROCEDURE: CT LUMBAR SPINE [...] Dunn MD on 12/04/2022 at 10:28 Normal [facility] BASIC METABOLIC PANELon 05-2 Anion gap [Moles/Vol] 9 mmol/L Low 10 - 20 [facility] Comment on above: Performed By: #### B MP #### [address] [address] Calcium [Mass/Vol] 8.9 mg/dL Normal 8.6 - 10.3 [facility] Comment on above: Performed By: #### B MP #### [address] [address] Chloride [Moles/Vol] 108 mmol/L High 98 - 107 [facility] Comment on above: Performed By: #### B MP #### [address] [address] Creatinine [Mass/Vol] 0.93 mg/dL Normal 0.50 - 1.30 [facility] Comment on above: Performed By: #### B MP #### [address] [address] eGFR MALE >90 Normal >90 [facility] Comment on above: Result Comment: CALC ULATIONS OF ESTIMATED GFR ARE PERFORMED USING THE 2020 CKD-EPI STUDY REFIT EQUATION WITHOUT THE RACE VARIABLE FOR THE IDMS-TRACEABLE CREATININE METHODS. https://jasn.asnjournals.org/content/early//ASN.729 9865354 Performed By: #### B MP #### [address] [address] Glucose [Mass/Vol] 89 mg/dL Normal 74 - 99 [facility] Comment on above: Performed By: #### B MP #### [address] [address] HCO3 (Bld) [Moles/Vol] 27 mmol/L Normal 21 - 32 [facility] Comment on above: Performed By: #### B MP #### [address] [address] Potassium [Moles/Vol] 3.7 mmol/L Normal 3.5 - 5.3 [facility] Comment on above: Performed By: #### B MP #### [address] [address] Sodium [Moles/Vol] 140 mmol/L Normal 136 - 145 [facility] Comment on above: Performed By: #### B MP #### [address] [address] Urea nitrogen [Mass/Vol] 13 mg/dL Normal 6 - 23 [facility] Comment on above: Performed By: #### B MP #### [address] [address] BNPon 04-04-2022 Natriuretic peptide B (Bld) [Mass/Vol] 16 pg/mL Normal 0 - 99 [facility] Comment on above: Result Comment: . <1 00 pg/mL - Heart failure unlikely 100-299 pg/mL - Intermediate probability of acute heart . failure exacerbation. Correlate with clinical . context and patient history. >=300 pg/mL - Heart Failure likely. Correlate with clinical . context and patient history. BNP testing is performed using different testing methodology at [facility] than at other [facility]. Direct result comparisons should only be made within the same method. Performed By: #### B NP2 #### [address] [address] CBC AND DIFFERENTIALon 04-04 Basophils (Bld) [#/Vol] 0.10 10*3/uL Normal 0.00 - 0.1 0 [facility] Comment on above: Performed By: #### C BCDF #### [address] [address] Basophils/100 WBC (Bld) 1.1 % Normal 0.0 - 2.0 [facility] Comment on above: Performed By: #### C BCDF #### [address] [address] Eosinophils (Bld) [#/Vol] 0.10 10*3/uL Normal 0.00 - 0.70 [facility] Comment on above: Performed By: #### C BCDF #### [address] [address] Eosinophils/100 WBC (Bld) 2.0 % Normal 0.0 - 6.0 [facility] Comment on above: Performed By: #### C BCDF #### [address] [address] Erythrocyte distribution width (RBC) [Ratio] 12.9 % Normal 11.5 - 14.5 [facility] Comment on above: Performed By: #### C BCDF #### [address] [address] Hematocrit (Bld) [Volume fraction] 44.6 % Normal 41.0 - 52.0 [facility] Comment on above: Performed By: #### C BCDF #### [address] [address] Hemoglobin (Bld) [Mass/Vol] 15.0 g/dL Normal 13.5 - 17.5 [facility] Comment on above: Performed By: #### C BCDF #### [address] [address] Lymphocytes (Bld) [#/Vol] 1.80 10*3/uL Normal 1.20 - 4.80 [facility] Comment on above: Performed By: #### C BCDF #### [address] [address] Lymphocytes/100 WBC (Bld) 28.9 % Normal 13.0 - 44.0 [facility] Comment on above: Performed By: #### C BCDF #### [address] [address] MCHC (RBC) [Mass/Vol] 33.7 g/dL Normal 32.0 - 36.0 [facility] Comment on above: Performed By: #### C BCDF #### [address] [address] MCV (RBC) [Entitic vol] 86 fL Normal 80 - 100 [facility] Comment on above: Performed By: #### C BCDF #### [address] [address] Monocytes (Bld) [#/Vol] 0.50 10*3/uL Normal 0.10 - 1.0 0 [facility] Comment on above: Performed By: #### C BCDF #### [address] [address] Monocytes/100 WBC (Bld) 8.6 % Normal 2.0 - 10.0 [facility] Comment on above: Performed By: #### C BCDF #### [address] [address] Neutrophils (Bld) [#/Vol] 3.60 10*3/uL Normal 1.20 - 7.70 [facility] Comment on above: Result Comment: Perc ent differential counts (%) should be interpreted in the context of the absolute cell counts (cells/L). Performed By: #### C BCDF #### [address] [address] Neutrophils/100 WBC (Bld) 59.4 % Normal 40.0 - 80.0 [facility] Comment on above: Performed By: #### C BCDF #### [address] [address] NUCLEATED RBC 0.1 /100 WBC Normal [facility] Comment on above: Performed By: #### C BCDF #### [address] [address] Platelets (Bld) [#/Vol] 222 10*3/uL Normal 150 - 450 [facility] Comment on above: Performed By: #### C BCDF #### [address] [address] RBC 5.16 x10E12/L Normal 4.50 - 5.90 [facility] Comment on above: Performed By: #### C BCDF #### [address] [address] WBC (Bld) [#/Vol] 6.1 10*3/uL Normal 4.4 - 11.3 [facility] Comment on above: Performed By: #### C BCDF #### [address] [address] CHEST 1 VIEWon 04-04-2022 CHEST 1 VIEW Patient Name: DELTA CHEEK STUDY: CHEST 1 VIEW; 04/04/2022 7:45 pm INDICATION: Chest Pain . COMPARISON: Chest radiograph dated 05/13/2019. ACCESSION NUMBER(S): [id number] ORDERING CLINICIAN: MIA STEIN FINDINGS: CARDIOMEDIASTINAL SILHOUETTE: Cardiomediastinal silhouette is normal in size and configuration. LUNGS/PLEURA: There are no consolidations.The re are no pleural effusions. There is no demonstrated pneumothorax. BONES: Visualized osseous structures are intact. IMPRESSION: 1. No evidence of acute cardiopulmonary process. Electronically signed by: ROSITA NAGEL DO Normal [facility] Electrocardiogram 12 Leadon 04-04-2022 Electrocardiogram 12 Lead Ventricular Rate 71 Atrial Rate 71 P-R Interval 152 QRS Duration 78 Q-T Interval 362 QTC Calculation(Bazett ) 393 P [place] 52 R [place] 53 T [place] 28 QRS Count 11 Q Onset 219 P Onset 143 P Offset 200 T Offset 400 QTC Fredericia 383 Diagnosis Class Normal Diagnosis Please see physician note for formal interpretation confirmed by Scribe Confirmed by Yonathan Frausto () on 04/11/2022 12:40:14 PM Normal [facility]3] MAGNESIUMon 04-04-2022 Magnesium [Mass/Vol] 2.19 mg/dL Normal 1.60 - 2.40 [facility] Comment on above: Performed By: #### M G #### [address] [address] Provider Note - ED v3on 03-13 Provider [...] results: Troponin I, High Sensitivity Trending View [id number] 19:42:00 04-Apr-2022 18:56:00 Troponin I, High Sensitivity3 [...] SIGNS: T PRBP SpO2O2(LPM) %FiO2 Method 04-Apr-2022 20:30:00-7781948/7 9 97 room air, no respiratory support 04-Apr-2022 19:30:00-8975873/8 7 97 room air, no respiratory support 04-Apr-2022 19:17:00-1357083/1 15 97 room air, no respiratory support 04-Apr-2022 18:54:00-9594135/9 5 98 room air, no respiratory support 04-Apr-2022 18:23:[id number] 57/99 100 room air, no respiratory support [facility] MDM/ED COURSE: PMH: Reviewed PSH: Reviewed Social [...] Suarez. 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 Old records and [...] for follow (more content not included)... Normal [facility] TROPONIN I, HIGH SENSITIVITY on 04-04-2022 TROPONIN I, HIGH SENSITIVITY 3 ng/L Normal 0 - 20 [facility] Comment on above: Result Comment: . Less [...] performed using a different testing methodology at [facility] than at other [facility]. Direct result comparisons should only be made within the same method. Performed By: #### [facility] #### [address] [address] [place] [address] TROPONIN I, HIGH SENSITIVITY 3 ng/L Normal 0 - 20 [facility] Comment on above: Result Comment: . Less [...] performed using a different testing methodology at [facility] than at other [facility]. Direct result comparisons should only be made within the same method. Performed By: #### T [facility] #### [place] [address] CNOVon 06-13-2021 CNOV Office Visit (UROPOLON) -------- DELTA CHEEK JR. ([id number]) 1975 M Date Time Provider Department 06/13/21 10:15 AM FRAN ARCHIBALD During your visit today, we recorded the following information about you: Pulse Blood pressure Weight 78/minute 137/96 113.4 kg Fran Archibald MD 06/13/2021 11:21 AM Signed [facility] NEW PATIENT HISTORY AND PHYSICAL EXAM PATIENT INFO: Delta Cheek Jr. 45 year old REFERRING M.D.: Scar Mensah MD ([facility]) [address] [place] [id number] This consult was requested by Scar Mensah MD for an opinion regarding peyronies disease, and my final recommendations will be communicated to the requesting health care provider by way of the shared medical record for internal providers or letter via the [employer] for external providers. HISTORY Chief [...] Laterality Date - COLONOSCOP W/ OR W/O [facility] SPEC Colonoscopy - REPAIR FEMORAL HERNIA right [...] Surgery Electron (more content not included)... Normal [facility] C Urineon 05-15-2019 C Urine Final Report: No growth Normal [facility] Comment on above: Performed By: #### 2 [id number] #### OR[facility] Microbiology Subsection [address] [place] [address] BMPon 05-13-2019 Anion gap [Moles/Vol] 14 mmol/L Normal 10-20 [facility] Comment on above: Performed By: #### 2 [id number] #### [place] [employer]ink [facility] [place] [address] Calcium [Mass/Vol] 9.3 mg/dL Normal 8.6-10.3 [facility] Comment on above: Performed By: #### 2 [id number] #### [place] [employer] [address] [place] [address] Chloride [Moles/Vol] 102 mmol/L Normal 98-107 [facility] Comment on above: Performed By: #### 2 [id number] #### [place] [employer] [address] [place] [address] CO2 [Moles/Vol] 24.0 mmol/L Normal 21.0-32.0 [facility] Comment on above: Performed By: #### 2 [id number] #### [place] [employer] [address] [place] [address] Creatinine [Mass/Vol] 1.1 mg/dL Normal 0.5-1.3 [facility] Comment on above: Performed By: #### 2 [id number] #### [place] [employer] [address] [place] [address] Glucose [Mass/Vol] 121 mg/dL High 70-99 [facility] Comment on above: Performed By: #### 2 [id number] #### [place] [employer] [address] [place] [address] Potassium [Moles/Vol] 3.3 mmol/L Low 3.5-5.3 [facility] Comment on above: Performed By: #### 2 [id number] #### [place] [employer] [address] [place] [address] Sodium [Moles/Vol] 136 mmol/L Normal 136-145 [facility] Comment on above: Performed By: #### 2 [id number] #### [place] [employer] [address] [place] [address] Urea nitrogen [Mass/Vol] 11 mg/dL Normal 6-23 [facility] Comment on above: Performed By: #### 2 485582 #### [place] [employer] [address] [place] [address] Urea nitrogen/Creatinine [Mass ratio] 10.0 ratio Normal 5.4-30.0 [facility] Comment on above: Performed By: #### 2 [id number] #### [place] [employer] [address] [place] [address] CBC w/ Auto Diffon 9 Erythrocyte distribution width (RBC) [Ratio] 12.8 % Normal 11.5-14.5 [facility] Comment on above: Performed By: #### 2 [id number] #### [place] Rem[employer]emo [address] [place] [address] Hematocrit (Bld) [Volume fraction] 45.0 % Normal 42.0-52.0 [facility] Comment on above: Performed By: #### 2 [id number] #### [place] RemHemo [address] [place] [address] Hemoglobin (Bld) [Mass/Vol] 15.3 g/dL Normal 13.5-18.0 [facility] Comment on above: Performed By: #### 2 924410 #### [place] RemHemo [address] [place] [address] MCH (RBC) [Entitic mass] 29.3 pg Normal 27.0-31.0 [facility] Comment on above: Performed By: #### 2 512856 #### [place] RemHemo [address] [place] [address] MCHC (RBC) [Mass/Vol] 34.1 g/dL Normal 33.0-37.0 [facility] Comment on above: Performed By: #### 2 016590 #### ORALIA RemHemo [address] [place] [address] MCV (RBC) [Entitic vol] 86.0 fL Normal 78.0-100.0 [facility] Comment on above: Performed By: #### 2 [id number] #### ORALIA CaraballoHemo [address] [place] [address] Platelet mean volume (Bld) [Entitic vol] 7.6 fL Normal 7.4-11.0 [facility] Comment on above: Performed By: #### 2 [id number] #### ORALIA CaraballoHemo [address] [place] [address] Platelets (Bld) [#/Vol] 176 E3/mcL Normal 130-400 [facility] Comment on above: Performed By: #### 2 294016 #### ORALIA CaraballoHemo [facility] [place] [address] RBC (Bld) [#/Vol] 5.23 E6/mcL Normal 3.90-6.10 [facility] Comment on above: Performed By: #### 2 799105 #### ORALIA CaraballoHemo [facility] [place] [address] WBC (Bld) [#/Vol] 9.7 E3/mcL Normal 3.6-11.0 [facility] Comment on above: Performed By: #### 2 411019 #### ORALIA CaraballoHemo [facility] [place] [address] CT Abdomen/Pelvis w/o Contra ston 05-13-2019 CT Abdomen/Pelvis w/o Contrast Exam Date/Time: 05/13/2019 16:02 EDT Reason for Exam: kidney stone vs discitis;Other (please specify) Report STUDY: CT Abdomen/Pelvis w/o Contrast; 05/13/2019 4:02 pm INDICATION: Low back pain COMPARISON: None. ACCESSION NUMBER(S): [id number] ORDERING CLINICIAN: Oscar Sidhu TECHNIQUE: Contiguous 3 [...] pm Signed by: Olegario Cross MD Technologist: [facility] MRI Spine Lumbar w/ + w/o Co ntraston 05-13-2019 MRI Spine Lumbar w/ + w/o Contrast Exam Date/Time: 05/13/2019 20:08 EDT Reason for Exam: discitis;Other (please specify) Report STUDY: MRI Spine Lumbar w/ + w/o Contrast; 05/13/2019 8:08 pm INDICATION: Low back pain. COMPARISON: CT abdomen pelvis 05/13/2019 ACCESSION NUMBER(S): [id number] ORDERING CLINICIAN: Oscar Sidhu TECHNIQUE: Multiplanar multisequence [...] by: Dave Escalera MD Technologist: ANETTE Normal [facility] Manual Diffon 05-13-2019 Band form neutrophils/100 WBC (Bld) 1 Normal 0-1 [facility] Comment on above: Order Comment: Order Added by Discern Expert. Performed By: #### 2 [id number] #### ORALIA Greene [facility] [place] [address] Basophil Man 0 % Normal 0-1 [facility] Comment on above: Order Comment: Order Added by Discern Expert. Performed By: #### 2 [id number] #### OR[place] Greene [facility] [place] [address] Eosinophils/100 WBC (Bld) 0 % Normal 0-5 [facility] Comment on above: Order Comment: Order Added by Discern Expert. Performed By: #### 2 465919 #### OR[place]IA RemHemo [address] [place] [address] Lymphocytes/100 WBC (Bld) 3 % Low 14-48 [facility] Comment on above: Order Comment: Order Added by Discern Expert. Performed By: #### 2 [id number] #### OR[facility]IA RemHemo [address] [place] [id number] Monocyte Man 2 % Normal 1-11 [facility] Comment on above: Order Comment: Order Added by Discern Expert. Performed By: #### 2 [id number] #### OR[facility]IA RemHemo [address] [place] [id number] RBC morphology finding Nom (Bld) NORMAL Normal [facility] Comment on above: Order Comment: Order Added by Discern Expert. Performed By: #### 2 [id number] #### OR[place]IA RemHemo [address] [place] [id number] Segs Man 94 % High 37-75 [facility] Comment on above: Order Comment: Order Added by Discern Expert. Performed By: #### 2 [id number] #### OR[facility]IA RemHemo [address] [id number] UA Completeon 05-13-2019 Color (U) Yellow Normal Yellow [facility] Comment on above: Order Comment: Strai ght Cath as needed Performed By: #### 8 [id number] #### OR[place]IA Urinalysis Automated Subsection [facility] [place] [address] Glucose (U) [Mass/Vol] Negative Normal Negative [facility] Comment on above: Order Comment: Strai ght Cath as needed Performed By: #### 8 [id number] #### OR[facility]IA Urinalysis Automated Subsection [address] [place], [place] [address] Ketones Ql (U) Negative Normal Negative [facility] Comment on above: Order Comment: Strai ght Cath as needed Performed By: #### 8 [id number] #### ORALIA Urinalysis Automated Subsection [address] [place], [place] [address] RBC (U) [#/Vol] 0-3 Normal 0-3 [facility] Comment on above: Order Comment: Strai ght Cath as needed Performed By: #### 8 [id number] #### ORALIA Urinalysis Automated Subsection [facility] [place] [address] UA Blood 1+ Abnormal Negative [facility] Comment on above: Order Comment: Strai ght Cath as needed Performed By: #### 8 [id number] #### OR[facility]IA Urinalysis Automated Subsection [address] [place] [address] UA Clarity SltCloudy Abnormal Clear [facility] Comment on above: Order Comment: Strai ght Cath as needed Performed By: #### 8 [id number] #### OR[place]IA Urinalysis Automated Subsection [facility] [place] [address] UA Leuk Est Negative Normal Negative [facility] Comment on above: Order Comment: Strai ght Cath as needed Performed By: #### 8 [id number] #### OR[place] Urinalysis Automated Subsection [facility] [place] [address] UA Nitrite Negative Normal Negative [facility] Comment on above: Order Comment: Strai ght Cath as needed Performed By: #### 8 [id number] #### [place] Urinalysis Automated Subsection [facility] [place] [address] UA pH 6.0 Normal 4.6-8.0 [facility] Comment on above: Order Comment: Strai ght Cath as needed Performed By: #### 8 [id number] #### OR[place] Urinalysis Automated Subsection [facility] [place] [address] UA Protein Negative Normal Negative [facility] Comment on above: Order Comment: Strai ght Cath as needed Performed By: #### 8 [id number] #### [place] Urinalysis Automated Subsection [facility] [place] [address] UA Spec Grav 1.009 Normal 1.003-1.030 [facility] Comment on above: Order Comment: Strai ght Cath as needed Performed By: #### 8 [id number] #### OR[place] Urinalysis Automated Subsection [facility] [place] [address] UA Urobilinogen Negative Normal [facility] Comment on above: Order Comment: Strai [...] within 24 hours. Performed By: #### 8 [id number] #### [place] Urinalysis Automated Subsection [facility] [place] [address] UA WBC 0-5 Normal 0-5 [facility] Comment on above: Order Comment: Strai ght Cath as needed Performed By: #### 8 [id number] #### OR[place] Urinalysis Automated Subsection [facility] [place] [address] Urobilinogen Qn (U) Negative Normal Negative [facility] Comment on above: Order Comment: Strai ght Cath as needed Performed By: #### 8 [id number] #### [place] Urinalysis Automated Subsection [facility] [place] [address] XR Chest Single Viewon 05-13 XR Chest Single View Exam Date/Time: 05/13/2019 14:43 EDT Reason for Exam: Shortness of breath (SOB) Report STUDY: XR Chest Single View; 05/13/2019 2:43 pm INDICATION: Shortness of breath (SOB). COMPARISON: None. ACCESSION NUMBER(S): [id number] ORDERING CLINICIAN: Oscar Sidhu FINDINGS: BONY STRUCTURES: [...] pm Signed by: Judah Beauchamp MD Technologist: ENID Normal [facility] eGFRon 05-13-2019 GFR/1.73 sq M predicted among non-blacks MDRD (S/P/Bld) [Vol rate/Area] mL/min/{1.73_m2} Normal [facility] Comment on above: Order Comment: Order added by Discern Expert. Performed By: #### 1 [id number] #### [place] [employer] [address] [place] [address] zzplt morphon 05-13-2019 Platelet morphology finding Nom (Bld) NORMAL Normal [facility] Comment on above: Performed By: #### 9 [id number] #### OR[place] RemHemo [address] [place] [address] Platelets (Bld) [#/Vol] NORMAL Normal [facility] Comment on above: Performed By: #### 9 [id number] #### [place]IA RemHemo [address] [place] [address] Vital Signs Date Time Vital Sign Value Performing Clinician Facility 04-16-2025 21:19-0400 Body temperature 97.9 [degF] Dr. Rogelio Colvin MD Work Phone: [facility] 04-16-2025 21:19-0400 Diastolic blood pressure 76 mm[Hg] Dr. Rogelio Colvin MD Work Phone: [facility] 04-16-2025 21:19-0400 Heart rate 76 /min Dr. Rogelio Colvin MD Work Phone: [facility] 04-16-2025 21:19-0400 Respiratory rate 16 /min Dr. Rogelio Colvin MD Work Phone: [facility] 04-16-2025 21:19-0400 SaO2% (BldA) [Mass fraction] 97 % Dr. Rogelio Colvin MD Work Phone: [facility] 04-16-2025 21:19-0400 Systolic blood pressure 140 mm[Hg] Dr. Rogelio Colvin MD Work Phone: [facility] 04-16-2025 20:05-0400 Body height 187.[address] Rogelio Colvin MD Work Phone: 5(711)164-447263 [place] [address] 04-16-2025 20:05-0400 Body mass index (BMI) [Ratio] 33.3 kg/m2 Dr. Rogelio Colvin MD Work Phone: 1(225)825-727463 [place] [address] 04-16-2025 20:05-0400 Body weight 117.[address] Rogelio Colvin MD Work Phone: 7(235)650-747658 [place] [address] 03-10-2025 11:15-0400 Body temperature 98.4 [degF] Dr. Rogelio Colvin MD Work Phone: 6(479)964-717258 [place] [address] 03-10-2025 11:15-0400 Body weight 115.[address] Rogelio Colvin MD Work Phone: 2(736)726-924158 [place] [address] 03-10-2025 11:15-0400 Diastolic blood pressure 91 mm[Hg] Dr. Rogelio Colvin MD Work Phone: 5(362)233-562358 [place] [address] 03-10-2025 11:15-0400 Heart rate 98 /min Dr. Rogelio Colvin MD Work Phone: 4(011)516-423058 [place] [address] 03-10-2025 11:15-0400 Respiratory rate 16 /min Dr. Rogelio Colvin MD Work Phone: 5(415)423-600258 [place] [address] 03-10-2025 11:15-0400 SaO2% (BldA) [Mass fraction] 97 % Dr. Rogelio Colvin MD Work Phone: 3(153)302-050258 [place] [address] 03-10-2025 11:15-0400 Systolic blood pressure 142 mm[Hg] Dr. Rogelio Colvin MD Work Phone: 9(959)036-017463 [place] [address] 03-04-2025 08:06-0400 Body temperature 97 [degF] Dr. Rogelio Colvin MD Work Phone: 4(517)243-986058 [place] [address] 03-04-2025 08:06-0400 Diastolic blood pressure 88 mm[Hg] Dr. Rogelio Colvin MD Work Phone: 8(791)636-091858 [place] [address] 03-04-2025 08:06-0400 Heart rate 80 /min Dr. Rogelio Colvin MD Work Phone: 9(845)661-151258 [place] [address] 03-04-2025 08:06-0400 Respiratory rate 18 /min Dr. Rogelio Colvin MD Work Phone: 8(001)159-726463 [place] [address] 03-04-2025 08:06-0400 SaO2% (BldA) [Mass fraction] 99 % Dr. Rogelio Colvin MD Work Phone: 3(289)666-949263 [place] [address] 03-04-2025 08:06-0400 Systolic blood pressure 141 mm[Hg] Dr. Rogelio Colvin MD Work Phone: 5(823)865-211258 [place] [address] 03-03-2025 10:19-0400 Body mass index (BMI) [Ratio] 32.3 kg/m2 Dr. Rogelio Colvin MD Work Phone: 8(735)221-775263 [place] [address] 03-03-2025 10:19-0400 Body weight 114.[address] Rogelio Colvin MD Work Phone: 2(823)408-779958 [place] [address] 02-16-2025 15:27-0400 Body temperature 98 [degF] Dr. Rogelio Colvin MD Work Phone: 1(711)565-594263 [place] [address] 02-16-2025 15:27-0400 Body weight 120.[address] Rogelio Colvin MD Work Phone: 7(028)696-484958 [place] [address] 02-16-2025 15:27-0400 Diastolic blood pressure 98 mm[Hg] Dr. Rogelio Colvin MD Work Phone: 6(938)315-119758 [place] [address] 02-16-2025 15:27-0400 Heart rate 72 /min Dr. Rogelio Colvin MD Work Phone: 7(839)840-426763 [place] [address] 02-16-2025 15:27-0400 Respiratory rate 16 /min Dr. Rogelio Colvin MD Work Phone: 6(140)298-653163 [place] [address] 02-16-2025 15:27-0400 SaO2% (BldA) [Mass fraction] 98 % Dr. Rogelio Colvin MD Work Phone: 3(423)591-633563 [place] [address] 02-16-2025 15:27-0400 Systolic blood pressure 156 mm[Hg] Dr. Rogelio Colvin MD Work Phone: 2(361)905-646563 [place] [address] 02-09-2025 16:59-0400 Body temperature 98 [degF] Dr. Rogelio Colvin MD Work Phone: [facility] 02-09-2025 16:59-0400 Diastolic blood pressure 94 mm[Hg] Dr. Rogelio Colvin MD Work Phone: [facility] 02-09-2025 16:59-0400 Heart rate 72 /min Dr. Rogelio Colvin MD Work Phone: 9(698)521-785263 [place] [address] 02-09-2025 16:59-0400 Respiratory rate 15 /min Dr. Rogelio Colvin MD Work Phone: 0(574)440-252163 [place] [address] 02-09-2025 16:59-0400 SaO2% (BldA) [Mass fraction] 97 % Dr. Rogelio Colvin MD Work Phone: 4(705)555-609963 [place] [address] 02-09-2025 16:59-0400 Systolic blood pressure 130 mm[Hg] Dr. Rogelio Colvin MD Work Phone: 1(840)042-522663 [place] [address] 02-09-2025 13:08-0400 Body height 188.[address] Rogelio Colvin MD Work Phone: 1(458)435-365058 [place] [address] 02-09-2025 13:08-0400 Body mass index (BMI) [Ratio] 32.7 kg/m2 Dr. Rogelio Colvin MD Work Phone: 9(319)539-058063 [place] [address] 02-09-2025 13:08-0400 Body weight 115.[address] Rogelio Colvin MD Work Phone: 4(996)444-460663 [place] [address] 02-03-2025 09:53-0400 Body height 188.[address] Rogelio Colvin MD Work Phone: [facility] 02-03-2025 09:53-0400 Body mass index (BMI) [Ratio] 33 kg/m2 Dr. Rogelio Colvin MD Work Phone: [facility] 02-03-2025 09:53-0400 Body weight 117.[address] Rogelio Colvin MD Work Phone: [facility] 01-27-2025 13:43-0400 Body temperature 98 [degF] Dr. Rogelio Colvin MD Work Phone: [facility] 01-27-2025 13:43-0400 Body weight 115.[address] Rogelio Colvin MD Work Phone: 0(419)220-631663 [place] [address] 01-27-2025 13:43-0400 Diastolic blood pressure 91 mm[Hg] Dr. Rogelio Colvin MD Work Phone: 4(364)744-209258 [place] [address] 01-27-2025 13:43-0400 Heart rate 95 /min Dr. Rogelio Colvin MD Work Phone: 5(736)534-573763 [place] [address] 01-27-2025 13:43-0400 Respiratory rate 16 /min Dr. Rogelio Colvin MD Work Phone: 2(277)645-199558 [place] [address] 01-27-2025 13:43-0400 SaO2% (BldA) [Mass fraction] 98 % Dr. Rogelio Colvin MD Work Phone: 7(153)989-957058 [place] [address] 01-27-2025 13:43-0400 Systolic blood pressure 136 mm[Hg] Dr. Rogelio Colvin MD Work Phone: 6(353)563-421058 [place] [address] 01-20-2025 14:39-0400 Body temperature 98.2 [degF] Dr. Rogelio Colvin MD Work Phone: 9(631)277-003558 [place] [address] 01-20-2025 14:39-0400 Diastolic blood pressure 96 mm[Hg] Dr. Rogelio Colvin MD Work Phone: 5(440)081-420163 [place] [address] 01-20-2025 14:39-0400 Heart rate 85 /min Dr. Rogelio Colvin MD Work Phone: 1(780)608-017063 [place] [address] 01-20-2025 14:39-0400 Respiratory rate 17 /min Dr. Rogelio Colvin MD Work Phone: 9(067)706-486463 [place] [address] 01-20-2025 14:39-0400 SaO2% (BldA) [Mass fraction] 93 % Dr. Rogelio Colvin MD Work Phone: 8(189)418-852463 [place] [address] 01-20-2025 14:39-0400 Systolic blood pressure 147 mm[Hg] Dr. Rogelio Colvin MD Work Phone: [facility] 01-19-2025 17:45-0400 Inhaled oxygen flow rate 4 L/min Dr. Rogelio Colvin MD Work Phone: 5(290)193-863363 [place] [address] 01-19-2025 16:09-0400 Body height 188.[address] Rogelio Colvin MD Work Phone: 9(791)026-013263 [place] [address] 01-19-2025 16:09-0400 Body mass index (BMI) [Ratio] 32.7 kg/m2 Dr. Rogelio Colvin MD Work Phone: 6(341)868-910163 [place] [address] 01-19-2025 16:09-0400 Body weight 115.[address] Rogelio Colvin MD Work Phone: 4(264)120-445563 [place] [address] 01-14-2025 10:56-0500 Body weight 114.[address] Rogelio Colvin MD Work Phone: 6(614)922-921158 [place] [address] 01-13-2025 13:20-0500 Body mass index (BMI) [Ratio] 32.5 kg/m2 Dr. Rogelio Colvin MD Work Phone: 2(562)056-727863 [place] [address] 01-02-2025 10:47-0500 Body temperature 98.4 [degF] Dr. Rogelio Colvin MD Work Phone: 4(763)105-307863 [place] [address] 01-02-2025 10:47-0500 Body weight 114.[address] Rogelio Colvin MD Work Phone: 9(280)566-696463 [place] [address] 01-02-2025 10:47-0500 Diastolic blood pressure 87 mm[Hg] Dr. Rogelio Colvin MD Work Phone: 4(707)220-777763 [place] [address] 01-02-2025 10:47-0500 Heart rate 85 /min Dr. Rogelio Colvin MD Work Phone: 9(440)984-270063 [place] [address] 01-02-2025 10:47-0500 Respiratory rate 16 /min Dr. Rogelio Colvin MD Work Phone: 1(406)350-477258 [place] [address] 01-02-2025 10:47-0500 SaO2% (BldA) [Mass fraction] 98 % Dr. Rogelio Colvin MD Work Phone: [facility] 01-02-2025 10:47-0500 Systolic blood pressure 132 mm[Hg] Dr. Rogelio Colvin MD Work Phone: [facility] 11-04-2024 02:15-0500 Body temperature 98.6 [degF] Dr. Rogelio Colvin MD Work Phone: [facility] 11-04-2024 02:15-0500 Diastolic blood pressure 93 mm[Hg] Dr. Rogelio Colvin MD Work Phone: [facility] 11-04-2024 02:15-0500 Heart rate 100 /min Dr. Rogelio Colvin MD Work Phone: [facility] 11-04-2024 02:15-0500 Respiratory rate 18 /min Dr. Rogelio Colvin MD Work Phone: [facility] 11-04-2024 02:15-0500 SaO2% (BldA) [Mass fraction] 95 % Dr. Rogelio Colvin MD Work Phone: [facility] 11-04-2024 02:15-0500 Systolic blood pressure 160 mm[Hg] Dr. Rogelio Colvin MD Work Phone: [facility] 11-03-2024 23:51-0500 Body mass index (BMI) [Ratio] 27.2 kg/m2 Dr. Rogelio Colvin MD Work Phone: [facility] 11-03-2024 23:51-0500 Body weight 96.[address] Rogelio Colvin MD Work Phone: [facility] 10-18-2024 23:18-0500 Body temperature 97.59 [degF] Mnedy Tyler DO Work Phone: [facility] 10-18-2024 23:18-0500 Diastolic blood pressure 108 mm[Hg] Mendy Tyler DO Work Phone: [facility] 10-18-2024 23:18-0500 Heart rate 79 /min Mendy Tyler DO Work Phone: [facility] 10-18-2024 23:18-0500 Respiratory rate 16 /min Mendy Tyler DO Work Phone: [facility] 10-18-2024 23:18-0500 SaO2% (BldA) [Mass fraction] 97 % Mendy Tyler DO Work Phone: [facility] 10-18-2024 23:18-0500 Systolic blood pressure 150 mm[Hg] Mendy Tyler DO Work Phone: 9(879)510-083697 [place] [address] 10-18-2024 20:31-0500 Body height 188 cm Mendy Tyler DO Work Phone: 5(394)755-313397 [place] [address] 10-18-2024 20:31-0500 Body mass index (BMI) [Ratio] 32.1 kg/m2 Mendy Tyler DO Work Phone: 3(052)286-834797 [place] [address] 10-18-2024 20:31-0500 Body weight 113.4 kg Mendy Tyler DO Work Phone: 5(909)629-146197 [place] [address] 10-16-2023 11:51-0500 Body temperature 98.2 [degF] Dr. Rogelio Colvin Work Phone: [facility] 10-16-2023 11:51-0500 Body weight 113.[address] Rogelio Colvin Work Phone: [facility] 10-16-2023 11:51-0500 Diastolic blood pressure 81 mm[Hg] Dr. Rogelio Colvin Work Phone: [facility] 10-16-2023 11:51-0500 Heart rate 81 /min Dr. Rogelio Colvin Work Phone: [facility] 10-16-2023 11:51-0500 Respiratory rate 16 /min Dr. Rogelio Colvin Work Phone: [facility] 10-16-2023 11:51-0500 SaO2% (BldA) [Mass fraction] 97 % Dr. Rogelio Colvin Work Phone: [facility] 10-16-2023 11:51-0500 Systolic blood pressure 127 mm[Hg] Dr. Rogelio Colvin Work Phone: [facility] 05-20-2023 20:09-0400 Respiratory rate 18 /min Dr. Rogelio Colvin Work Phone: [facility] 05-20-2023 18:02-0400 Body height 187.[address] Rogelio Colvin Work Phone: [facility] 05-20-2023 18:02-0400 Body mass index (BMI) [Ratio] 29.6 kg/m2 Dr. Rogelio Colvin Work Phone: [facility] 05-20-2023 18:02-0400 Body temperature 96.8 [degF] Dr. Rogelio Colvin Work Phone: [facility] 05-20-2023 18:02-0400 Body weight 104.[address] Rogelio Colvin Work Phone: [facility] 05-20-2023 18:02-0400 Diastolic blood pressure 64 mm[Hg] Dr. Rogelio Colvin Work Phone: [facility] 05-20-2023 18:02-0400 Heart rate 78 /min Dr. Rogelio Colvin Work Phone: [facility] 05-20-2023 18:02-0400 SaO2% (BldA) [Mass fraction] 99 % Dr. Rogelio Colvin Work Phone: [facility] 05-20-2023 18:02-0400 Systolic blood pressure 139 mm[Hg] Dr. Rogelio Colvin Work Phone: [facility] 05-02-2023 10:38-0400 Body temperature 98.2 [degF] Dr. Rogelio Colvin Work Phone: [facility] 05-02-2023 10:38-0400 Body weight 106.[address] Rogelio Colvin Work Phone: [facility] 05-02-2023 10:38-0400 Diastolic blood pressure 90 mm[Hg] Dr. Rogelio Colvin Work Phone: [facility] 05-02-2023 10:38-0400 Heart rate 80 /min Dr. Rogelio Colvin Work Phone: [facility] 05-02-2023 10:38-0400 Respiratory rate 16 /min Dr. Rogelio Colvin Work Phone: [facility] 05-02-2023 10:38-0400 SaO2% (BldA) [Mass fraction] 96 % Dr. Rogelio Colvin Work Phone: [facility] 05-02-2023 10:38-0400 Systolic blood pressure 137 mm[Hg] Dr. Rogelio Colvin Work Phone: [facility] 04-17-2023 08:54-0400 Body height 187.[address] Rogelio Colvin Work Phone: 0(733)885-226763 [place] [address] 04-17-2023 08:54-0400 Body weight 105.[address] Rogelio Colvin Work Phone: [facility] 04-17-2023 08:02-0400 Body mass index (BMI) [Ratio] 29.7 kg/m2 Dr. Rogelio Colvin Work Phone: 9(757)981-034347 [address] 04-06-2023 21:31-0400 Body mass index (BMI) [Ratio] 32.3 kg/m2 Dr. Rogelio Colvin Work Phone: 2(293)683-729363 [place] [address] 04-06-2023 21:31-0400 Body weight 108.[address] Rogelio Colvin Work Phone: [facility] 04-06-2023 21:23-0400 Body height 182.[address] Rogelio Colvin Work Phone: [facility] 04-06-2023 21:23-0400 Body temperature 98 [degF] Dr. Rogelio Colvin Work Phone: [facility] 04-06-2023 21:23-0400 Diastolic blood pressure 112 mm[Hg] Dr. Rogelio Colvin Work Phone: [facility] 04-06-2023 21:23-0400 Heart rate 86 /min Dr. Rogelio Colvin Work Phone: [facility] 04-06-2023 21:23-0400 Respiratory rate 16 /min Dr. Rogelio Colvin Work Phone: [facility] 04-06-2023 21:23-0400 SaO2% (BldA) [Mass fraction] 98 % Dr. Rogelio Colvin Work Phone: [facility] 04-06-2023 21:23-0400 Systolic blood pressure 143 mm[Hg] Dr. Rogelio Colvin Work Phone: [facility] 03-26-2023 14:39-0400 Body weight 105.[address] Rogelio Colvin Work Phone: [facility] 03-26-2023 14:39-0400 Diastolic blood pressure 82 mm[Hg] Dr. Rogelio Colvin Work Phone: [facility] 03-26-2023 14:39-0400 Heart rate 64 /min Dr. Rogelio Colvin Work Phone: [facility] 03-26-2023 14:39-0400 Respiratory rate 16 /min Dr. Rogelio Colvin Work Phone: [facility] 03-26-2023 14:39-0400 SaO2% (BldA) [Mass fraction] 99 % Dr. Rogelio Colvin Work Phone: [facility] 03-26-2023 14:39-0400 Systolic blood pressure 129 mm[Hg] Dr. Rogelio Colvin Work Phone: [facility] 02-13-2023 14:21-0400 Diastolic blood pressure 76 mm[Hg] Dr. Rogelio Colvin Work Phone: [facility] 02-13-2023 14:21-0400 Heart rate 91 /min Dr. Rogelio Colvin Work Phone: [facility] 02-13-2023 14:21-0400 SaO2% (BldA) [Mass fraction] 97 % Dr. Rogelio Colvin Work Phone: [facility] 02-13-2023 14:21-0400 Systolic blood pressure 122 mm[Hg] Dr. Rogelio Colvin Work Phone: [facility] 01-25-2023 11:07-0400 Body height 188.[address] Rogelio Colvin Work Phone: [facility] 01-17-2023 08:28-0500 Body temperature 99.1 [degF] Dr. Rogelio Colvin Work Phone: [facility] 01-17-2023 08:28-0500 Body weight 108.[address] Rogelio Colvin Work Phone: 8(523)963-012063 [place] [address] 01-17-2023 08:28-0500 Diastolic blood pressure 93 mm[Hg] Dr. Rogelio Colvin Work Phone: 0(993)609-341863 [place] [address] 01-17-2023 08:28-0500 Heart rate 80 /min Dr. Rogelio Colvin Work Phone: [facility] 01-17-2023 08:28-0500 Respiratory rate 18 /min Dr. Rogelio Colvin Work Phone: [facility] 01-17-2023 08:28-0500 SaO2% (BldA) [Mass fraction] 99 % Dr. Rogelio Colvin Work Phone: [facility] 01-17-2023 08:28-0500 Systolic blood pressure 134 mm[Hg] Dr. Rogelio Colvin Work Phone: [facility] 01-11-2023 17:00-0500 Respiratory rate 18 /min Dr. Rogelio Colvin Work Phone: [facility] 01-11-2023 15:40-0500 SaO2% (BldA) [Mass fraction] 97 % Dr. Rogelio Colvin Work Phone: [facility] 01-11-2023 15:31-0500 Diastolic blood pressure 94 mm[Hg] Dr. Rogelio Colvin Work Phone: [facility] 01-11-2023 15:31-0500 Systolic blood pressure 138 mm[Hg] Dr. Rogelio Colvin Work Phone: [facility] 01-11-2023 15:10-0500 Heart rate 72 /min Dr. Rogelio Colvin Work Phone: [facility] 01-11-2023 14:00-0500 Body height 188.[address] Rogelio Colvin Work Phone: [facility] 01-11-2023 14:00-0500 Body mass index (BMI) [Ratio] 29.5 kg/m2 Dr. Rogelio Colvin Work Phone: [facility] 01-11-2023 14:00-0500 Body temperature 95.9 [degF] Dr. Rogelio Colvin Work Phone: [facility] 01-11-2023 14:00-0500 Body weight 104.[address] Rogelio Colvin Work Phone: [facility] 01-11-2023 09:51-0500 Body temperature 98.5 [degF] Dr. Rogelio Colvin Work Phone: [facility] 01-11-2023 09:51-0500 Diastolic blood pressure 87 mm[Hg] Dr. Rogelio Colvin Work Phone: [facility] 01-11-2023 09:51-0500 Heart rate 79 /min Dr. Rogelio Colvin Work Phone: [facility] 01-11-2023 09:51-0500 Respiratory rate 14 /min Dr. Rogelio Colvin Work Phone: [facility] 01-11-2023 09:51-0500 SaO2% (BldA) [Mass fraction] 98 % Dr. Rogelio Colvin Work Phone: [facility] 01-11-2023 09:51-0500 Systolic blood pressure 135 mm[Hg] Dr. Rogelio Colvin Work Phone: [facility] 01-10-2023 10:18-0500 Body height 187.[address] Rogelio Colvin Work Phone: [facility] 01-10-2023 10:18-0500 Body weight [address] Rogelio Colvin Work Phone: [facility] 01-09-2023 15:22-0500 Body mass index (BMI) [Ratio] 29.7 kg/m2 Dr. Rogelio Colvin Work Phone: 9(330)857-976763 [place] [address] 01-04-2023 14:36-0500 Body temperature 97.8 [degF] Dr. Rogelio Colvin Work Phone: [facility] 01-04-2023 14:36-0500 Body weight 105.[address] Rogelio Colvin Work Phone: 8(287)764-026863 [place] [address] 01-04-2023 14:36-0500 Diastolic blood pressure 97 mm[Hg] Dr. Rogelio Colvin Work Phone: 3(022)572-629863 [place] [address] 01-04-2023 14:36-0500 Heart rate 110 /min Dr. Rogelio Colvin Work Phone: 6(761)220-799663 [place] [address] 01-04-2023 14:36-0500 Respiratory rate 18 /min Dr. Rogelio Colvin Work Phone: 1(252)437-875763 [place] [address] 01-04-2023 14:36-0500 Systolic blood pressure 141 mm[Hg] Dr. Rogelio Colvin Work Phone: 6(363)455-783847 [address] 01-04-2023 09:22-0500 Body height 187.[address] Rogelio Colvin Work Phone: [facility] 01-04-2023 09:22-0500 Body mass index (BMI) [Ratio] 30 kg/m2 Dr. Rogelio Colvin Work Phone: 9(961)690-176363 [place] [address] 01-04-2023 09:22-0500 Body weight 106.[address] Rogelio Colvin Work Phone: [facility] 12-31-2022 22:06-0500 Diastolic blood pressure 102 mm[Hg] Dr. Rogelio Colvin Work Phone: [facility] 12-31-2022 22:06-0500 Heart rate 80 /min Dr. Rogelio Colvin Work Phone: [facility] 12-31-2022 22:06-0500 Respiratory rate 16 /min Dr. Rogelio Colvin Work Phone: [facility] 12-31-2022 22:06-0500 SaO2% (BldA) [Mass fraction] 98 % Dr. Rogelio Colvin Work Phone: [facility] 12-31-2022 22:06-0500 Systolic blood pressure 143 mm[Hg] Dr. Rogelio Colvin Work Phone: 5(714)649-508563 [place] [address] 12-31-2022 17:48-0500 Body height 187.[address] Rogelio Colvin Work Phone: 9(107)381-985363 [place] [address] 12-31-2022 17:48-0500 Body mass index (BMI) [Ratio] 32.1 kg/m2 Dr. Rogelio Colvin Work Phone: 8(137)979-519663 [place] [address] 12-31-2022 17:48-0500 Body temperature 98.4 [degF] Dr. Rogelio Colvin Work Phone: 8(335)714-391663 [place] [address] 12-31-2022 17:48-0500 Body weight 113.[address] Rogelio Colvin Work Phone: [facility] 12-07-2022 08:20-0500 Body temperature 98 [degF] Dr. Rogelio Colvin Work Phone: [facility] 12-07-2022 08:20-0500 Diastolic blood pressure 72 mm[Hg] Dr. Rogelio Colvin Work Phone: [facility] 12-07-2022 08:20-0500 Heart rate 61 /min Dr. Rogelio Colvin Work Phone: [facility] 12-07-2022 08:20-0500 Respiratory rate 16 /min Dr. Rogelio Colvin Work Phone: [facility] 12-07-2022 08:20-0500 SaO2% (BldA) [Mass fraction] 95 % Dr. Rogelio Colvin Work Phone: [facility] 12-07-2022 08:20-0500 Systolic blood pressure 133 mm[Hg] Dr. Rgoelio Colvin Work Phone: [facility] 12-06-2022 12:36-0500 Body height 188.[address] Rogelio Colvin Work Phone: [facility] 12-06-2022 12:36-0500 Body mass index (BMI) [Ratio] 32.5 kg/m2 Dr. Rogelio Colvin Work Phone: [facility] 12-06-2022 12:36-0500 Body weight 115.[address] Rogelio Colvin Work Phone: [facility] 12-06-2022 09:01-0500 Body temperature 98.1 [degF] [facility] 12-06-2022 09:01-0500 Diastolic blood pressure 68 mm[Hg] [facility] 12-06-2022 09:01-0500 Heart rate 64 /min [facility] 12-06-2022 09:01-0500 Respiratory rate 18 /min [facility] 12-06-2022 09:01-0500 SaO2% (BldA) [Mass fraction] 96 % [facility] 12-06-2022 09:01-0500 Systolic blood pressure 128 mm[Hg] [facility] 12-06-2022 04:16-0500 Body height 187.96 cm [facility] 12-06-2022 04:16-0500 Body mass index (BMI) [Ratio] 32.6 kg/m2 [facility] 12-06-2022 04:16-0500 Body weight 115.3 kg [facility] Encounters Encounter Date Encounter Type Care Provider Facility Start: 04-16-2025 End: 04-16-2025 Emergency department patient visit Dr. Rogelio Colvin MD Work Phone: -Emergency Department Work Phone: Start: 03-20-2025 End: 03-20-[address] Dung Aguirre MD -[facility] Work Phone: Start: 03-20-2025 End: 03-20-2025 ambulatory Dung Aguirre Facility:[facility] Start: 03-10-2025 End: 03-10-2025 Patient encounter procedure Teena JULES -[facility] Work Phone: Start: 03-10-2025 End: 03-10-2025 ambulatory Rogelio Colvin Facility:[facility] Start: 03-09-2025 End: 03-09-2025 Patient encounter procedure Nadia JULES [facility] Work Phone: Start: 03-09-2025 End: 03-09-2025 ambulatory Nadia Rikki Facility:[facility] Start: 03-04-2025 Non-patient / Non-visit Teena JULES [facility] Start: 03-03-2025 Non-patient / Non-visit Dr. Bryn herrera MD -[facility] Start: 03-02-2025 Non-patient / Non-visit Dr. Bryn herrera MD -[facility] Start: 03-02-2025 ambulatory [facility] Facility:[facility] Start: 03-02-2025 End: 03-04-2025 Evaluation and management of inpatient Dr. Bryn Mccall MD -Progressive Care Unit Work Phone: Start: 02-16-2025 End: 02-16-[address] Bryn Mccall MD -[facility] Work Phone: Start: 02-16-2025 End: 02-16-20[facility] Start: 02-09-2025 ambulatory [facility] Start: 02-09-2025 Non-patient / Non-visit Dr. Bryn herrera MD -[facility] Start: 02-09-2025 End: 02-09-2025 Emergency department patient visit Dr. Rogelio Colvin MD Work Phone: -Emergency Department Work Phone: Start: 02-03-2025 End: 02-03-2025 Patient encounter procedure Nadia JULES [facility] Work Phone: Start: 02-03-2025 End: 02-03-2025 ambulatory Nadia Jonesk Facility:[facility] Start: 01-27-2025 End: 01-27-2025 Patient encounter procedure Teena JULES -[facility] Work Phone: Start: 01-27-2025 End: 01-27-[address] Rogelio Colvin MD Work Phone: [facility] Work Phone: Start: 01-27-2025 End: 01-27-2025 ambulatory Teena Jacques Facility:[facility] Start: 01-20-2025 Non-patient / Non-visit Teena JULES [facility] Start: 01-19-2025 End: 01-20-2025 ambulatory [facility] Facility:[facility] Start: 01-19-2025 End: 01-20-2025 Evaluation and management of inpatient Dr. Bryn Mccall MD -Progressive Care Unit Work Phone: Start: 01-19-2025 End: 01-20-[address] Rogelio Colvin MD Work Phone: [facility] Work Phone: Start: 01-19-2025 ambulatory Bryn Stefany Facility:[facility] Start: 01-19-2025 Non-patient / Non-visit Dr. Bryn herrera MD -[facility] Start: 01-14-2025 ambulatory [facility] Facility[facility] Start: 01-14-2025 Non-patient / Non-visit Dr. Bryn herrera MD -[facility] Start: 01-14-2025 End: 01-14-2025 Admission to same day surgery center Dr. Bryn Mcclal MD -[facility] [employer] [facility]/Special Procedures Work Phone: Start: 01-14-2025 End: 01-14-2025 ambulatory [facility] Facility:[facility] Start: 01-02-2025 End: 01-02-2025 Patient encounter procedure Teena JULES -[facility] Work Phone: Start: 01-02-2025 End: 01-02-2025 Patient encounter procedure Teena JULES -[facility] Work Phone: Start: 01-02-2025 End: 01-02-2025 ambulatory Teena Jacques Facility:[facility] Start: 01-02-2025 End: 01-02-2025 ambulatory Teena Jacques Facility:[facility] Start: 12-12-2024 ambulatory Rogelio Chi Vinicius Facility:[facility] Start: 12-12-2024 Non-patient / Non-visit Dr. Bryn herrera MD -[facility] Start: 12-12-2024 End: 12-12-[address] Rogelio Colvin MD -Cardiovascular Services Work Phone: Start: 12-12-2024 End: 12-12-2024 ambulatory Rogelio Chi Vinicius Facility:[facility] Start: 11-24-2024 ambulatory Rogelio Chi Vinicius [facility] Start: 11-24-2024 Non-patient / Non-visit Dr. Bryn herrera MD -[facility] Start: 11-24-2024 End: 11-24-[address] Bryn Mccall MD -Cardiovascular Services Work Phone: Start: 11-24-2024 End: 11-24-2024 ambulatory Rogelio Chi Vinicius Facility:[facility] Start: 11-03-2024 End: 11-04-2024 Emergency department patient visit Dr. Isrrael Garrett DO -Emergency Department Work Phone: Start: 10-18-2024 End: 10-18-2024 Emergency department patient visit Mendy Tyler DO Work Phone: [facility] Comment on above: Lumbar strain, initi al encounter (Primary Dx) Start: 09-18-2024 End: 09-18-2024 ambulatory Rogelio Chi Vinicius Facility:[facility] Start: 05-02-2024 ambulatory Bryn Mccall [facility] Start: 05-02-2024 End: 05-02-2024 ambulatory Teena Jacques Facility:[facility] Start: 04-29-2024 End: 04-29-2024 Emergency department patient visit Dimas Gill Facility:[facility] Start: 10-16-2023 End: 10-16-[address] Rogelio Colvin Work Phone: [facility] Work Phone: Start: 10-16-2023 End: 10-16-[address] Rogelio Colvin Work Phone: [facility] Vascular Surgery Work Phone: Start: 08-15-2023 Non-patient / Non-visit Dr. Zachariah Colvin Work Phone: [facility] Start: 08-15-2023 End: 08-15-[address] [facility] Start: 05-20-2023 End: 05-20-2023 Emergency department patient visit Dr. Rogelio Colvin Work Phone: [facility]-Emergency Department Work Phone: Start: 05-02-2023 End: 05-02-[address] Rogelio Colvin Work Phone: [facility] Work Phone: Start: 05-02-2023 End: 05-02-[address] Rogelio Colvin Work Phone: [facility] Start: 04-17-2023 Non-patient / Non-visit Dr. Zachariah Colvin Work Phone: [facility] Start: 04-17-2023 End: 04-17-2023 Admission to same day surgery center Dr. Rogelio Colvin Work Phone: [facility] [employer] [facility]/Special Procedures Start: 04-17-2023 End: 04-17-[address] Rogelio Colvin Work Phone: [facility] Work Phone: Start: 04-06-2023 End: 04-06-2023 Emergency department patient visit Dr. Rogelio Colvin Work Phone: [facility]-Emergency Department Start: 04-04-2023 Non-patient / Non-visit Dr. Zachariah Colvin Work Phone: [facility] Start: 04-04-2023 End: 04-04-[address] Rogelio Colvin Work Phone: [facility] Work Phone: Start: 04-04-2023 End: 04-04-[address] [facility] Start: 03-26-2023 End: 03-26-[address] Rogelio Colvin Work Phone: [facility] Start: 03-21-2023 Non-patient / Non-visit Dr. Zachariah Colvin Work Phone: [facility] Start: 03-21-2023 End: 03-21-[address] Rogelio Colvin Work Phone: [facility] Work Phone: Start: 03-21-2023 End: 03-21-[address] [facility] Start: 03-06-2023 End: 03-06-[address] Rogelio Colvin Work Phone: [facility] Work Phone: Start: 03-06-2023 End: 03-06-[address] [facility] Col[facility] Start: 02-13-2023 End: 02-13-[address] Rogelio Colvin Work Phone: [facility] Start: 01-31-2023 End: 01-31-[address] Rogelio Colvin Work Phone: [facility] Start: 01-17-2023 End: 01-17-[address] Rogelio Colvin Work Phone: [facility] Start: 01-17-2023 End: 01-17-[address] Rogelio Colvin Work Phone: [facility] Work Phone: Start: 01-17-2023 End: 01-17-[address] Rogelio Colvin Work Phone: [facility] Start: 01-11-2023 End: 01-11-2023 Emergency department patient visit Dr. Rogelio Colvin Work Phone: [facility]-Emergency Department Start: 01-11-2023 Non-patient / Non-visit Dr. Zachariah Colvin Work Phone: [facility] Start: 01-10-2023 Non-patient / Non-visit Dr. Zachariah Colvin Work Phone: [facility] Start: 01-10-2023 End: 01-10-2023 Non-patient / Non-visit Dr. Rogelio Colvin Work Phone: [facility] Start: 01-09-2023 Non-patient / Non-visit Dr. Zachariah Colvin Work Phone: [facility] Start: 01-09-2023 End: 01-11-2023 Evaluation and management of inpatient Dr. Rogelio Colvin Work Phone: [facility]-Progressive Care Unit Start: 01-04-2023 End: 01-04-[address] Rogelio Colvin Work Phone: [facility] Start: 01-04-2023 End: 01-04-[address] Rogelio Colvin Work Phone: [facility] Start: 01-01-2023 Non-patient / Non-visit Dr. Zachariah Colvin Work Phone: [facility] Start: 01-01-2023 End: 01-01-[address] Rogelio Colvin Work Phone: [facility] Work Phone: Start: 01-01-2023 End: 01-01-[address] Rogelio Colvin Work Phone: [facility]-Cardiovascular Services Start: 12-31-2022 End: 12-31-2022 Emergency department patient visit Dr. Rogelio Colvin Work Phone: [facility]-Emergency Department Start: 12-07-2022 Non-patient / Non-visit Dr. Zachariah Colvin Work Phone: [facility] Start: 12-06-2022 Non-patient / Non-visit Dr. Zachariah Colvin Work Phone: [facility] Start: 12-06-2022 End: 12-07-2022 [facility] Start: 12-06-2022 End: 12-07-[address] Rogelio Colvin Work Phone: [facility] Work Phone: Start: 12-04-2022 End: 12-04-2022 Emergency department patient visit DR CJ LEIVA [facility] Procedures Date Procedure Procedure Detail Performing Clinician Start: 04-16-2025 CT of head without contrast Dr. Rogelio Colvin MD Work Phone: Start: 03-09-2025 MRI of lumbar spine Dr. Rogelio Colvin MD Work Phone: Start: 03-03-[address] Rogelio Colvin MD Work Phone: Start: 02-09-[address] Rogelio Colvin MD Work Phone: Start: 02-03-2025 X-ray of lumbosacral spine Dr. Rogelio Colvin MD Work Phone: Start: 01-20-[address] Rogelio Colvin MD Work Phone: Start: 01-19-2025 Coagulation time, activated Dr. Rogelio Colvin MD Work Phone: Start: 01-14-2025 Estimated creatinine clearance Dr. Rogelio Colvin MD Work Phone: Start: [...] DTaP/Tdap/Td Vaccines (2 - Td or Tdap) [facility] Start: 04-16-2025 [facility] Start: 03-04-2025 Patient discharge [facility] Start: 03-03-2025 Bedrest [facility] Start: 03-03-2025 Notification of physician [facility] Start: 03-03-2025 Provision of activity privileges [facility] Start: 03-03-2025 Pulse taking [facility] Start: 03-03-2025 Taking patient vital signs [facility] Start: 03-03-2025 End: 03-03-2025 [facility] Start: 03-03-2025 Elevation of head of bed [facility] Start: 03-03-2025 [employer] Anesthesia (Not Applicable) [employer] Anesthesia (Not Applicable) [facility] Start: 03-02-2025 Ambulation without limitation [facility] Start: 03-02-2025 Assessment of risk of venous thromboembolism [facility] Start: 03-02-2025 Catheterization of vein [facility] Start: 03-02-2025 Insertion of catheter into peripheral vein [facility] Start: 03-02-2025 Measuring intake and output [facility] Start: 03-02-2025 Medication not administered [facility] Start: 03-02-2025 Oxygen therapy [facility] Start: 03-02-2025 Preoperative care [facility] Start: 03-02-2025 Providing care according to standard [facility] Start: 03-02-2025 [facility] Start: 03-02-2025 Admission procedure [facility] Start: 03-02-2025 Following clinical pathway protocol [facility] Start: 02-24-2025 Patient referral [facility] Work Phone: Start: 02-09-2025 [facility] Start: 01-27-2025 Patient referral [facility] Work Phone: Start: 01-20-2025 Patient discharge [facility] Start: 01-19-2025 Following clinical pathway protocol [facility] Start: 01-19-2025 [facility] Start: 01-19-2025 Ambulation without limitation [facility] Start: 01-19-2025 Assessment of risk of venous thromboembolism [facility] Start: 01-19-2025 Bedrest [facility] Start: 01-19-2025 Incentive spirometry [facility] Start: 01-19-2025 Insertion of catheter into peripheral vein [facility] Start: 01-19-2025 Measuring intake and output [facility] Start: 01-19-2025 Notification of physician [facility] Start: 01-19-2025 Oxygen therapy [facility] Start: 01-19-2025 Providing care according to standard [facility] Start: 01-19-2025 Provision of activity privileges [facility] Start: 01-19-2025 Pulse taking [facility] Start: 01-19-2025 Taking patient vital signs [facility] Start: 01-19-2025 End: 01-19-2025 [facility] Start: 01-19-2025 Admission procedure [facility] Start: 01-19-2025 Removal of thrombus Thrombectomy (Not Applicable) [facility] Start: 01-14-2025 Patient discharge [facility] Start: 01-02-2025 Patient referral [facility] Work Phone: Start: 11-04-2024 [facility] Start: 07-13-2024 COVID-19 Vaccine ( season) COVID-19 Vaccine ( season) [facility] Start: 07-13-2024 Influenza vaccination Influenza Vaccine (#1) [facility] Start: 2023 Zoster Vaccines (1 of 2) Zoster Vaccines (1 of 2) [facility] Start: 01-11-2023 Patient discharge [facility] Start: 01-10-2023 Notification of physician [facility] Start: 01-10-2023 Provision of activity privileges [facility] Start: 01-10-2023 Taking patient vital signs [facility] Start: 01-10-2023 Vascular disease risk assessment [facility] Start: 01-10-2023 [facility] Start: 01-09-2023 Following clinical pathway protocol [facility] Start: 01-09-2023 Admission procedure [facility] Start: 01-09-2023 Ambulation without limitation [facility] Start: 01-09-2023 Assessment of risk of venous thromboembolism [facility] Start: 01-09-2023 Insertion of catheter into peripheral vein [facility] Start: 01-09-2023 Measuring intake and output [facility] Start: 01-09-2023 Providing care according to standard [facility] Start: 01-09-2023 [facility] Start: 01-09-2023 Patient referral to dietitian [facility] Start: 12-31-2022 US.doppler Lower extremity vein [facility] Start: 12-07-2022 Patient discharge [facility] Start: 12-06-2022 Following clinical pathway protocol [facility] Start: 12-06-2022 Chart related administrative procedure [facility] Start: 12-06-2022 Ambulation without limitation [facility] Start: 12-06-2022 Assessment of risk of venous thromboembolism [facility] Start: 12-06-2022 Incentive spirometry [facility] Start: 12-06-2022 Insertion of catheter into peripheral vein [facility] Start: 12-06-2022 Measuring intake and output [facility] Start: 12-06-2022 Oxygen therapy [facility] Start: 12-06-2022 Providing care according to standard [facility] Start: 12-06-2022 Provision of activity privileges [facility] Start: 12-06-2022 Referral to occupational therapist [facility] Start: 12-06-2022 Referral to service [facility] Start: 12-06-2022 [facility] Start: 12-06-2022 Verification routine [facility] Start: 12-06-2022 Admission procedure [facility] Start: 1991 Hepatitis C screening Hepatitis C Screening [facility] Start: 1974 MMR Vaccines (1 of 1 - Standard series) MMR Vaccines (1 of 1 - Standard series) [facility] Start: 1973 HIV screening HIV Screening [facility] Start: 1973 Lipid panel Lipid Panel [facility] Start: 1973 Screening for malignant neoplasm of colon [facility] Start: 1973 Yearly Adult Physical Yearly Adult Physical [facility] Bilirubin measuremen t, urine [facility] Doppler ultrasonogra phy of aorta [facility] Doppler ultrasonogra phy of aorta [facility] Hemoglobin [Presence ] in Urine [facility] Measurement of keton es in urine using dipstick [facility] Microscopic urinalysis [facility] MR Lumbar spine [facility] MR Lumbar spine [facility] Patient Education [facility] Work Phone: Patient referral [facility] Work Phone: pH of Urine [facility] Specific gravity of Urine [facility] Urinalysis, blood, qualitative [facility] Urine dipstick for glucose [facility] Urine dipstick for leukocyte esterase [facility] Urine dipstick for nitrite [facility] Urine dipstick for protein [facility] Urine examination [facility] Urine microscopy: epithelial cells [facility] Urine Microscopy: wh ite cells [facility] Urobilinogen [Presen ce] in Urine [facility] US.doppler Lower ext remity vein [facility] US.doppler Lower ext remity vessels [facility] US.doppler Lower ext remity vessels [facility] Immunizations Immunization Date Immunization Notes Care Provider Fa cility 05-20-2023 tetanus toxoid, redu jose cruz diphtheria toxoid, and acellular pertussis vaccine, adsorbed Dr. Rogelio Colvin Work Phone: [facility] 09-29-2020 influenza virus vaccine, unspecified formulation Mendy Tyler DO Work Phone: [facility] Work Phone: Payers Date Payer Category Payer Legal Liability / Liability Insurance ACCIDENT RELATED NON-MEDICARE [id number] 2024 Self-pay [id number] 2022 Unknown [id number] 1973 Unknown [id number] 2..1.178445.3.579.2. 651 1973 Unknown [id number] 2.0.1.531380.3.579.2. 1243 Private Health Insurance [employer] [id number] Unknown [id number] 2.840.1.533268.3.579.2. 462 Unknown [id number] 2.0.1.095406.3.579.2. 462 Unknown [id number] 2.840.1.055632.3.579.2. 462 Unknown [id number] 2.840.1.473094.3.579.2. 462 Unknown [id number] 2.840.1.668175.3.579.2. 462 Unknown [id number] 2.840.1.449414.3.579.2. 462 Unknown [id number] 2.840.1.865041.3.579.2. 462 Unknown [id number] 2.0.1.379016.3.579.2. 462 Unknown [id number] 2.16.840.1.605713.3.579.2. 462 Unknown [id number] 2.16.840.1.876744.3.579.2. 462 Unknown [id number] 2.16.840.1.657603.3.579.2. 462 Unknown [id number] 2.16.840.1.678031.3.579.2. 462 Unknown [id number] 2.16.840.1.369678.3.579.2. 462 Unknown [id number] 2.16.840.1.015146.3.579.2. 462 Unknown [id number] 2.16.840.1.327804.3.579.2. 462 Unknown [id number] 2.16.840.1.913203.3.579.2. 462 Unknown [id number] 2.16.840.1.592086.3.579.2. 462 Unknown [id number] 2.16.840.1.599099.3.579.2. 462 Unknown [id number] 2.16.840.1.719100.3.579.2. 462 Unknown [id number] 2.16.840.1.253166.3.579.2. 462 Unknown [id number] 2.16.840.1.897212.3.579.2. 462 Unknown [id number] 2.16.840.1.804255.3.579.2. 462 Unknown [id number] 2.16.840.1.101327.3.579.2. 462 Unknown [id number] 2.16.840.1.475453.3.579.2. 462 Unknown [id number] 2.16.840.1.630985.3.579.2. 462 Unknown [id number] 2.16.840.1.066671.3.579.2. 462 Unknown [id number] 2.16.840.1.392047.3.579.2. 462 Unknown [id number] 2.16.840.1.750642.3.579.2. 462 Unknown [id number] 2.16.840.1.099357.3.579.2. 462 Unknown [id number] 2.16.840.1.001551.3.579.2. 462 Unknown [id number] 2.16.840.1.762412.3.579.2. 462 Social History Date Type Detail Facility Start: 12-06-2022 End: 10-18-2023 Tobacco smoking status NHIS Unknown if ever smoked [facility] Start: 1975 Sex Assigned At Male W [facility] Start: 1975 Sex assigned at Not on file [facility] Work Phone: Gender identity Not on file [facility] Work Phone: Start: 10-08-2024 End: 10-18-2024 Exposure to SARS-CoV-2 (event) Not sure [facility] Start: 01-19-2025 End: 02-09-2025 Tobacco smoking status NHIS Ex-smoker (finding) [facility] Start: 01-20-2025 End: 02-09-2025 Sex Male (finding) [facility] Start: 04-16-2025 Tobacco smoking stat us NHIS Never smoked tobacco (finding) [facility] Medical Equipment Procedure Code Equipment Code Equipment Origin al Text Equipment Identifier Dates Iliofemoral vein stent ()[id number] [id number] FDA Start: 01-10-2023 Iliofemoral vein stent ()[id number] [id number] FDA Start: 01-10-2023 Iliofemoral vein stent ()[id number] [id number] FDA Start: 01-10-2023 Iliofemoral vein stent ()[id number] [id number] FDA Start: 01-10-2023 Goals Date Patient Goal Desired Activity /State Functional Status Date Assessment Result Facility 03-04-2025 Functional status Ambulates;Up a d rony;Chair;Bathroom Privilege [facility] Work Phone: 01-20-2025 Functional status Ambulates [facility] Work Phone: 01-11-2023 Functional status Activity Ability Indepe ndent [facility] Work Phone: 01-11-2023 Functional status Patient Activity Up ad rony [facility] Work Phone: 12-07-2022 Functional status Activity Ability Bedres t [facility] Work Phone: 12-06-2022 Functional status Patient Activity Bedres t [facility] Work Phone: Mental Status Date Assessment Result Facility 03-04-2025 Cognitive function Voice/Name [facility] Work Phone: 01-20-2025 Cognitive function Voice/Name [facility] Work Phone: 01-19-2025 Cognitive function Voice/Name [facility] Work Phone: 01-11-2023 Cognitive function Level Of Cons ciousness Awake;Appropriate;Follows Commands;Drowsy [facility] Work Phone: 01-11-2023 Cognitive function Voice/Name [facility] Work Phone: Clinical Notes 06-13-2021 to 04-16-2025 Note Date & Type Note Facility 04-16-2025 Discharge summary [facility] 04-16-2025 Radiology Diagnostic study note [facility] Imaging Services [address], [place] [address] Brain/Head without Contrast MR#: [id number] Acct: [id number] Name: DELTA CHEEK Jr. Rep #: [id number] : 1975 M 49 From: Xander Roth DO PCP: Dr. Rogelio Colvin MD Status: REG E R Study:Brain/Head without Contrast Date of Exa m: 04/16/25 Exam# [id number] Ordering Dr: Leon Jones MD PROCEDURE: BRAIN/HEAD WITHOUT CONTRAST 04/16/2025 REASON FOR EXAM: HEAD TRAUMA ON LOVENOX. TECHNIQUE: Head CT without intravenous contrast. Coronal and Sagittal reconstruction serieswere provided. One or more dose reduction techniques were used (e.g., Automated exposure control, adjustment of the mA and/or kV according to patient size, use of iterative reconstruction technique. COMPARISON: 04/06/2023 FINDINGS: No evidence of acute intracranial hemorrhage, midline shift or mass effect. No definite CT evidence of acute territorial cortical infarction. No hydrocephalus. Cerebral volume is age-appropriate. Calvarium is intact. Paranasal sinuses and mastoid air cells are clear. CT/Brain/Head without Contrast IMPRESSION: No acute intracranial abnormality. Reading Location: [facility] CC: Dr. Emerson Jones MD; Dr. Rogelio Colvin MD ~ Tax Advisor: Signed [facility] 04-16-2025 Discharge summary Note Date/Time April 16, 2025 9:13p m [facility] Medical Records Department [address] [place] [address] Emergency Department Summary 04/16/25 MR#: [id number] Acct: [id number] Name: DELTA CHEEK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 May 20, 2023 6:51p [facility] Medical Records Department [address] [place] [address] Emergency Department Summary 05/20/23 MR#: [id number] Acct: [id number] Name: ADIADELTA Gilberto Chan Rep #:[id number] [...] Signed: Young Galarza MD at 19:42 EDT , Discharge Plan Triage Chief Complaint: Laceration [...] your Primary Care Provider. Call [facility] ([phone]) or report to the closest Emergency Room. Call 911 if necessary. 05/20/231953 <Electronically signed by Oscar Andrade DO> Cosigner Signature (if applicable): CC: Dr. Rogelio Colvin MD ~ Signed [facility] Work Phone: 1(934) 204-595607-09-2023 Hospital Discharge instructions Additional Instructions Use topical [...] injury. You had a Tdap booster update tonight.[facility] Work Phone: 1([phone]) [phone] Procedure [facility] 01-10-2023 Procedure [facility]03-01-2023 History and physical note Author Dr. Stefany [facility] January 10, 2023 10:49am Note Date/Time January 09, 2023 4:48pm [facility] Medical Records Department [address] [place] [address] History & Physical Exam 01/09/23 1646 MR#: [id number] Acct: [id number] Name: DELTA CHEEK Jr. Rep #:[id number] : 1975 47 From: Teena JULES PCP: Dr. Rogelio Colvin MD Status:ADM I N Location: [place] [address] HPI - General General Date of Admission: 01/09/23 Date of Service: 01/09/23 Chief Complaint: LLE DVT HPI Narrative DELTA CHEEK, is a 47 M who is admitted for heparin bridge in preparation for thrombectomy with possible stenting in the microbiology lab assistant 01/10/23. Patient reported left leg pain/edema starting [...] Last dose of Xarelto was this morning. [facility] Medical History Hypertension Hypertension Home Medications pantoprazole 40 mg tablet,delayed release 40 mg PO DAILY 30 days #30 tabs 12/07/22 [Rx Last Taken Unknown] hydrocodone-acetaminophen 5-325mg 5mg-325mg [...] with thrombectomy possible stenting as planned in microbiology lab assistant 01/10/23 at 0800. Hold Xarelto. Start full-dose heparin drip. Obtain aPTT every 6 hours for heparin dosing per protocol. No need to stop prior to procedure, will stop heparin once patient is in the microbiology lab assistant. NPO after midnight. Plan to return patient to PCU following procedure for hemodynamic monitoring andtransition back to Xarelto. Charges/Coding Visit Charges Inpatient E&M: 49476 Init Hosp L1 01/09/23 1721 <Electronically signed by Teena JULES> Cosigner Signature (if applicable): 01/10/23 1049 <Electronically signed by Bryn Mccall MD> CC: JORGE A Reynolds; Dr. Bryn Mccall MD; Dr. Rogelio Colvin MD~ Signed [facility] Work Phone: 1(779) 568-906001-26-[address] Jeffery [facility] December 07, 2022 7:42am Note Date/Time December 07, 2022 7 :38am [facility] Medical Records Department [address] [place] [address] Instructions for Home/Discharge Instructions 12/07/22 0736 MR#: [id number] Acct: [id number] Name: DELTA CHEEK Rep #:[id number] : 1975 47 From: Javed Grimaldo PCP: [...] muscle pain) Qty: 0 0RF Rx Instructions: Lrpq-ugl-puzcpvv, every 8 hourly for 3 days and [...] CC: Dr. Rogelio Colvin MD ~ Signed [facility] Work Phone: 1(606) 228-896701-25-2023 History and physical note Author Dr. Jeffery [facility] December 06, 2022 1:26pm Note Date/Time December 06, 2022 8 :53am [facility] Medical Records Department [address] [place] [address] H&P Exam - Hospitalist 12/06/22 0853 MR#: [id number] Acct: [id number] Name: DELTA CHEEK Rep #:[id number] : 1975 47 From: Javed Grimaldo PCP: Dr. Rogelio Colvin MD Status:ADM I NO Location: [facility] HPI - General General Date of Admission: [...] on Sunday and then he went to [place] ED on 12/04. There is a need [...] a stroke and at the ageof 52. [facility] Medical History Hypertension Home Medications Losartan/Hydrochlorothiazide [Hyzaar [...] or ambulate: [facility] On Tylenol, ibuprofen for pain control. On [...] code verified. Charges/Coding Visit Charges Inpatient E&M: 60901 Init Hosp L3 12/06/22 1326 <Electronically signed by Javed Jeffery MD> Cosigner Signature (if applicable): CC: Dr. Javed Jeffery MD; Dr. Rogelio Colvin MD~ Signed [facility] Work Phone: 1(876) 840-220701-25-2023 Discharge summary Author Jacek Raygoza [facility] December 06, 2022 8:49am Note Date/Time December 06, 2022 8 :49am [facility] Medical Records Department [address] [place] [address] Emergency Department Summary 12/06/22 MR#: [id number] Acct: [id number] Name: DELTA CHEEK Gilberto Rep #:[id number] : 1975 47 From: Jacek Raygoza DO [...] the inability ambulate he presents for reevaluation [facility] Medical History Hypertension Home Medications Losartan/Hydrochlorothiazide [Hyzaar 100-12.5 Tablet] 1 tab PO DAILY 03/07/16 [History Last Taken Unknown] Allergy/AdvReac Type Severity Reaction Status Date / Time No Known Allergies Allergy Verified 12/06/22 04:19 Surgical History (Updated 12/06/22 @ 04:21 by Joelle Elizondo) History of femoral hernia repair Social History Smoking Status: Never smoker ROS ROS ED Constitutional Constitutional ED: Denies [...] Provider] - Disposition Disposition: [facility] What to do if you have Problems For any increased pain, shortness of breath, bleeding, nausea or vomiting, chestpain, or any unexpected problems, contact your Primary Care Provider. Call [facility] ([phone]) or report to the closest Emergency Room. Call 911 if necessary. 12/06/22 0849 <Electronically signed by Jacek Raygoza DO> Cosigner Signature (if applicable): CC: Dr. Rogelio Colvin MD ~ Signed [facility] Work Phone: 1(882) 126-736508-02-2021 NotePatient Outreach (UROLMN) DELTA CHEEK JR. ([id number]) 1975 M Date Time Provider Department 06/13/21 FRAN ARCHIBALD During your visit today, we recorded the following information about you: Allergies As of Date: 06/13/2021 (No Known Allergies) Date Reviewed: 06/13/2021 Reviewed by: Vee Helton Ma - Fully Assessed Visit Diagnosis:Screening for genitourinary condition [Z13.89] Order(s):URINALYSIS, DIPSTICK ONLY [SQUA] Order #: [id number] URINALYSIS, DIPSTICK ONLY [SQUA] Order #: [id number] Prescriptions as of 06/16/2021 - losartan-hydroCHLOROthiazide (HYZAAR) [...] 06/13/2021 Encounter Status:Closed by EPIC, PRODUSER on 06/16/21[facility] 06-13-2021 NoteHNO ID: [id number] Author: Fran Archibald MD Service: ? Author Type: Physician Type: Progress Notes Filed: 06/13/2021 11:21 AM Note Text: [facility] NEW PATIENT HISTORY AND PHYSICAL EXAM PATIENT INFO: Delta Cheek Jr. 45 year old REFERRING M.D.: Scar Mensah MD ([facility]) [address] [place] [phone] This consult was requested by Scar Mensah MD for an opinion regarding peyronies disease, and my final recommendations will be communicated to the requesting health care provider by way of the shared medical record for internal providers or letter via the [employer] for external providers. HISTORY Chief [...] Laterality Date - COLONOSCOP W/ OR W/O [facility] SPEC Colonoscopy - REPAIR FEMORAL HERNIA right [...] management of the patie (more content not included)...[facility] summary Author Dr. Jeffery [facility] December 07, 2022 7:48am Note Date/Time December 07, 2022 7 :48am [facility] Medical Records Department [address] [place] [address] Discharge Summary 12/07/22 0743 MR#: [id number] Acct: [id number] Name: DELTA CHEEK Rep #:[id number] : 1975 47 From: Javed Grimaldo PCP: Dr. Rogelio Colvin MD Status:ADM I NO Location: [facility] Providers Date of Admission: 12/06/22 Date of [...] or ambulate: [facility] On Tylenol, ibuprofen for pain control. On [...] and tramadol and muscle relaxant given from [place] [facility]. He was given prescription for tizanidine. Patient advised to take [id number] ibuprofen 600 mg every 8 hourly for [...] 90.1 H, Lymph % (Auto) 7.4 L, [place] %(Auto) 1.9, Eos % (Auto) 0.0, Baso [...] Clarity Clear, Urine pH 8.0, Ur Specific [place] 1.015, Urine Protein Negative, Urine Glucose (UA) [...] muscle pain) Qty: 0 0RF Rx Instructions: Vgyy-ulp-[id number], every 8 hourly for 3 days and [...] Self Care Charges/Coding Visit Charges Inpatient E&M: 37677 Disch Hosp >30min 12/07/22 0748 <Electronically signed by Javed Jeffery MD> Cosigner Signature (if applicable): CC: Dr. Javed Jeffery MD; Dr. Rogelio Colvin MD~ Signed [facility] Work Phone: Evaluation note* Diagnosis Onset Date Resolution Status Intractable low back pain ac amelia Unable to ambulate acute Hypertension chronic [facility] Work Phone: Evaluation note* Diagnosis Onset Date Resolution Status Intractable low back pain re solved Unable to ambulate resolved [facility] Work Phone: Evaluation note* Diagnosis Onset Date Resolution Status Intractable low back pain re solved Unable to ambulate resolved HNP (herniated nucleus pulposus), lumbar acute Lower back injury acute RSD lower limb acute [facility] Work Phone: Evaluation note* Diagnosis Onset Date Resolution Status Intractable low back pain re solved Unable to ambulate resolved HNP (herniated nucleus pulposus), lumbar acute Lower back injury acute RSD lower limb acute DVT (deep venous thrombosis) acute [facility] Work Phone: Evaluation note* Diagnosis Onset Date Resolution Status Intractable low back pain re solved Unable to ambulate resolved HNP (herniated nucleus pulposus), lumbar acute Lower back injury acute RSD lower limb acute DVT (deep venous thrombosis) acute DVT (deep venous thrombosis) acute [facility] Work Phone: Evaluation note* Diagnosis Onset Date Resolution Status Intractable low back pain re solved Unable to ambulate resolved HNP (herniated nucleus pulposus), lumbar acute Lower back injury acute RSD lower limb acute DVT (deep venous thrombosis) acute DVT (deep venous thrombosis) acute DDD (degenerative disc disease), lumbar acute Low back pain noneactive DVT (deep venous thrombosis) acute [facility] Work Phone: Evaluation note* Diagnosis Onset Date Resolution Status Intractable low back pain re solved Unable to ambulate resolved HNP (herniated nucleus pulposus), lumbar acute Lower back injury acute RSD lower limb acute DVT (deep venous thrombosis) acute DVT (deep venous thrombosis) acute DDD (degenerative disc disease), lumbar acute Low back pain noneactive DVT (deep venous thrombosis) acute DVT (deep venous thrombosis) acute [facility] Work Phone: Evaluation note* Diagnosis Onset Date Resolution Status Lower back injury acute Low back pain noneactive [facility] Work Phone: Evaluation note* Diagnosis Onset Date Resolution Status Low back pain noneactive Stenosis of iliac vein acute [facility] Work Phone: Evaluation note* Diagnosis Onset Date Resolution Status Stenosis of iliac vein acute [facility] Work Phone: Evaluation note* Diagnosis Lumbar strain, initial encounter- Primary documented in this encounter [facility] Work Phone: Hospital Discharge instructions Additional Instructions [...] room, just follow-up with your primary care doctor.[facility] Work Phone: Hospital Discharge instructions* Attachments The following attachments cannot be sent through Care Everywhere. * Back Muscle Strain (Honduran) [facility] Additional Instructions Ice to the top your head. Tylenol for any pain. If you start developing worsening headache, intractable vomiting or not acting right return. Your CAT scan tonight was unremarkable with no bleeding.[facility] Work Phone: Summary Purpose Family History No [...] Will No December 06 4:19am Power of Shop Helper No December 06, 2022 4:19am Advance Directive Response Recorded Date/ Time Living Will No December 06 12:36pm Power of Shop Helper No December 06, 2022 12:36pm Advance Directive Response Recorded Date/ Time Name of Medical Power of Shop Helper Milvia Snyder December 31, 2022 7:47pm Living Will Yes December 31 023 7:47pm Power of Shop Helper Yes December 31, 2022 7:47pm Advance Directive Response Recorded Date/ Time Name of Medical Power of Shop Helper Milvia Snyder December 31, 2022 7:47pm Name of Medical Power of Shop Helper Meir Snyder January 09, 2023 3:22pm Living Will Yes January 09 023 3:22pm Power of Shop Helper Yes January 09, 2023 3:22pm Advance Directive Response Recorded Date/ Time Name of Medical Power of Shop Helper Milvia Snyder December 31, 2022 8:47pm Name of Medical Power of Shop Helper Meir Snyder January 09, 2023 4:22pm Living Will No January 11, 2023 3:06pm Power of Shop Helper No January 11 3:06pm Advance Directive Response Recorded Date/ Time Living Will No January 25, 2023 11:07am Power of Shop Helper No January 25 11:07am Name of Medical Power of Shop Helper Milvia Snyder December 31, 2022 8:47pm Name of Medical Power of Shop Helper Meir Snyder January 09, 2023 4:22pm Advance Directive Response Recorded Date/ Time Name of Medical Power of Shop Helper Mivlia Snyder December 31, 2022 8:47pm Name of Medical Power of Shop Helper Meir Snyder January 09, 2023 4:22pm Name of Medical Power of Shop Helper februaryApril 06, 2023 9:33pm Living Will Yes April 06, 2023 9 :33pm Power of Shop Helper Yes April 06, 2023 9:33pm Advance Directive Response Recorded Date/ Time Name of Medical Power of Shop Helper Milvia Claudio December 31, 2022 8:47pm Name of Medical Power of Shop Helper Meir Snyder January 09, 2023 4:22pm Advance Directives No April 17 8:54am Living Will No April 17, 2023 8 :54am Power of Shop Helper No April 17, 2023 8:54am Name of Medical Power of Shop Helper [email or web address] 06, 2023 9:33pm Advance Directive Response Recorded Date/ Time Name of Medical Power of Shop Helper Meir Snyder January 09, 2023 4:22pm Advance Directives No April 17 8:54am Living Will No April 17, 2023 8 :54am Power of Shop Helper No April 17, 2023 8:54am Name of Medical Power of Shop Helper februaryApril 06, 2023 9:33pm Advance Directive Response Recorded Date/ Time Name of Medical Power of Shop Helper februaryApril 06, 2023 9:33pm Advance Directives No April 17 8:54am Living Will No May 20, 2023 6 :17pm Power of Shop Helper No May 20, 2023 6:17pm Advance Directive Response Recorded Date/ Time Advance Directives No October 18, 2023 10:40am Living Will No October 18 10:40am Power of Shop Helper No October 18, 2023 10:40am Advance Directive Response Recorded Date/ Time Living Will No November 04, 2 024 12:51am Power of Shop Helper No November 04, 2024 12:51am Advance Directives on File No January 14, 2025 11:56am Living Will Yes January 14, 2025 11:56am Power of Shop Helper Yes January 14 11:56am Name of Medical Power of Shop Helper FebruaryJanuary 14, 2025 11:56am Advance Directives Yes January 14 11:56am Living Will No January 19, 2025 4:09pm Power of Shop Helper No January 19 4:09pm Advance Directive Response Recorded Date/ Time Advance Directives Yes January 26 8:20am Living Will No November 04 12:51am Do you have a Healthcare Pow er of Shop Helper? No November 04, 2024 12:51am Advance Directives on File No January 14, 2025 11:56am Living Will Yes January 14, 2025 11:56am Do you have a Healthcare Pow er of Shop Helper? Yes January 14, 2025 11:56am Name of Medical Power of Shop Helper FebruaryJanuary 14, 2025 11:56am Living Will No January 19, 2025 4:09pm Do you have a Healthcare Pow er of Shop Helper? No January 19, 2025 4:09pm Advance Directive Response Recorded Date/ Time Advance Directives Yes January 26 8:20am Living Will No November 04 12:51am Do you have a Healthcare Pow er of Shop Helper? No November 04, 2024 12:51am Advance Directives on File No January 14, 2025 11:56am Living Will Yes January 14, 2025 11:56am Do you have a Healthcare Pow er of Shop Helper? Yes January 14, 2025 11:56am Name of Medical Power of Shop Helper FebruaryJanuary 14, 2025 11:56am Living Will No January 19, 2025 4:09pm Do you have a Healthcare Pow er of Shop Helper? No January 19, 2025 4:09pm Living Will Yes February 09, 2025 3:08pm Do you have a Healthcare Pow er of Shop Helper? Yes February 09, 2025 3:08pm Name of Medical Power of Shop Helper FebruaryFebruary 09, 2025 3:08pm Advance Directive Response Recorded Date/ Time Advance Directives Yes January 26 8:20am Advance Directives on File No January 14, 2025 11:56am Living Will Yes January 14, 2025 11:56am Do you have a Healthcare Power of Shop Helper? Yes January 14, 2025 11:56am Name of Medical Power of Shop Helper FebruaryJanuary 14, 2025 11:56am Living Will No January 19, 2025 4:09pm Do you have a Healthcare Power of Shop Helper? No January 19, 2025 4:09pm Living Will Yes March 02, 2025 4:15pm Do you have a Healthcare Power of Shop Helper? Yes March 02, 2025 4:15pm Name of Medical Power of Shop Helper februaryMarch 02, 2025 4:15pm Living Will Yes February 09, 2025 3:08pm Do you have a Healthcare Power of Shop Helper? Yes February 09, 2025 3:08pm Name [facility] February 09, 2025 3:08pm Do you have a Healthcare Power of Shop Helper? No April 16, 2025 8:28pm Chief Complaint and Reason for Visit Chief [...] 20, 2025 1:19pm Stitch removal 1 WK January 27, 2025 1:32pm E ORDER January 27, 2025 2:1 7pm LUMBAR SPINE February 03, 2025 9:5 2am Room 3 February 03, 2025 10: 04am BACK February 09, 2025 1:0 7pm Chief Complaint Admit Date L calf swelling, pain and discolor,Discu ss [...] 20, 2025 1:19pm Stitch removal 1 WK January 27, 2025 1:32pm E ORDER January 27, 2025 2:1 7pm LUMBAR SPINE February 03, 2025 9:5 2am Room 3 February 03, 2025 10: 04am BACK February 09, 2025 1:0 7pm Post Thrombectomy February 16, 2025 3:0 8pm Venogram, 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, in [employer] with March 02, 2025 4:32pm Venogram, 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, in [employer] with March 02, 2025 5:47pm Venogram, 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, in [employer] with March 03, 2025 12:32pm Venogram, 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, in [employer] with March 04, 2025 8:11am LUMBAR STENOSIS, PAIN March 09, 2025 9 :03am Post venogram 3-4 WK March 10, 2025 10:58am lumbar spine March 20, 2025 2:19pm HEAD INJURY April 16, 2025 8:05p m Reason for Visit Admit Date Left leg pain January 02, 2025 10:36am Stenosis of iliac vein January 02 10:36am Aftercare following surgery of the circu latory system January 27, 2025 1:32pm Stenosis of iliac vein January 27, 2025 1:32pm Iliac DVT (deep venous thrombosis) January 27, 2025 1:32pm DDD (degenerative disc disease), lumbar February 03, 2025 9:52am Lumbar stenosis without neurogenic rubin ication February 03, 2025 9:52am Iliac DVT (deep venous thrombosis) February 16, 2025 3:08pm Iliac DVT (deep venous thrombosis) March 02, 2025 4:32pm Stenosis of iliac vein March 10, 2025 10:58am Congenital stenosis of lumbar spine March 20, 2025 2:19pm Other intervertebral disc de generation, lumbar region with discogenic back March 20, 2025 2:19pm Additional Source Comments (unrecognized sect ion and content) No Status Records FoundNo Status Records FoundNo Status Records FoundNo Status Records FoundNo Status Records FoundNo Status Records FoundNo Status Records Found INFORMATION SOURCE (unrecogn ized section and content) DATE CREATED AUTHOR 05/15/[address] [facility] DATE CREATED AUTHOR AUTHOR'S ORGANIZ ATION 12/13/2021 [facility] DATE CREATED AUTHOR AUTHOR'S ORGANIZ ATION 04/08/[address] [facility] DATE CREATED AUTHOR AUTHOR'S ORGANIZ ATION 04/11/2022 [facility] DATE CREATED AUTHOR AUTHOR'S ORGANIZ ATION 12/08/2022 [facility] DATE CREATED AUTHOR AUTHOR'S ORGANIZ ATION 12/05/2024 [facility] DATE CREATED AUTHOR AUTHOR'S ORGANIZ ATION 04/21/2025 [facility] Care Teams (unrecognized sec tion and content) [...] Bryn Mccall MD Admit Provider, Other Provider Levi JULES PA Attending Provider Active Team Status: Active [...] Primary Care Provider, Referring Provider Active Teena Biedenharn PA, PA Attending Provider Active Team Status: Active Member Role Status Dates Dr. Rogelio Colvin MD Primary Care Provider Active Dr. Judah Srinivasan MD Attending Provider, Referring Provider Active Team Status: Inactive Member Role Status Dates Dr. Rogelio Colvin MD Primary Care Provider Active Dr. Tariq Flores DO Attending Provider, Referring P yohan Active Team Status: Inactive Member Role Status Dates Dr. Rogelio Colvin MD Primary Care Provider Active Dr. Dimas Gill MD Attending Provider, Emergency Provider Active Team Status: Active Member Role Status Dates Dr. Rogelio Colvin MD Primary Care Provider Active Dr. Bryn Mccall MD Admit Provider, Ref erring Provider, Other Provider Active Teena Biedenharliban PA, PA Attending Provider Active Team Status: [...] Ref erring Provider, Other Provider Active Teena Biedenharliban , PA Attending Provider Active Team Status: Inactive Member Role Status Dates Dr. Rogelio Colvin MD Primary Care Provider, Referring Provider Active Teena Biedenharn , PA Attending Provider Active Team Status: Active Member Role Status Dates Dr. Rogelio Colvin MD Primary Care Provider Active Dr. Bryn Mccall MD Attending Provider Active Team Status: Inactive Member Role Status Dates Dr. Rogelio Colvin MD Primary Care Provider Active Teena Biedenharn , PA Attending Provider, Referring Provider Active Team Status: Active Member Role Status Dates Dr. Rogelio Colvin MD Primary Care Provider Active Dr. 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 Rgoelio Colvin MD Primary Care Provider Active Start: [...] February 09, 2025 End: February 09, 2025 Team Status: Inactive Member Role Status Dates Dr. Rogelio Colvin MD Primary Care Provider Active Start: February 09, 2025 End: February 09, 2025 Dr. Bryn Victor DO Attending Provider Active Start: February 09, 2025 End: February 09, 2025 Dr. Bryn Victor DO Emergency Provider Active Start: February 09, 2025 End: February 09, 2025 Team Status: Active Member Role Status Dates Dr. Rogelio Colvin MD Primary Care Provider Active Start: February 09, 2025 Dr. Bryn Mccall MD Attending Provider Active S tart: February 09, 2025 Dr. Bryn Victor DO Referring Provider Active Start: February 09, 2025 Team Status: Inactive Member Role Status Dates Dr. Rogelio Colvin MD Primary Care Provider Active Start: February 16, 2025 End: February 16, 2025 Dr. Rogelio Colvin MD Referring Provider Active Start: February 16, 2025 End: February 16, 2025 Dr. Bryn Mccall MD Attending Provider Active S tart: February 16, 2025 End: February 16, 2025 Team Status: Inactive Member Role Status Dates Dr. Rogelio Colvin MD Primary Care Provider Active Start: March 02, 2025 End: March 04, 2025 Dr. Bryn Mccall MD Admit Provider Active Start : March 02, 2025 End: March 04, 2025 Dr. Bryn Mccall MD Attending Provider Active S tart: March 02, 2025 End: March 04, 2025 Dr. Bryn Mccall MD Referring Provider Active S tart: March 02, 2025 End: March 04, 2025 Team Status: Active Member Role Status Dates Dr. Rogelio Colvin MD Primary Care Provider Active Start: March 02, 2025 Dr. Bryn Mccall MD Admit Provider Active Start : March 02, 2025 Dr. Bryn Mccall MD Attending Provider Active S tart: March 02, 2025 Dr. Bryn Mccall MD Referring Provider Active S tart: March 02, 2025 Dr. Bryn Mccall MD Other Provider Active Start : March 02, 2025 Team Status: Active Member Role Status Dates Dr. Rogelio Colvin MD Primary Care Provider Active Start: March 03, 2025 Dr. Bryn Mccall MD Admit Provider Active Start : March 03, 2025 Dr. Bryn Mccall MD Attending Provider Active S tart: March 03, 2025 Dr. Bryn Mccall MD Referring Provider Active S tart: March 03, 2025 Dr. Bryn Mccall MD Other Provider Active Start : March 03, 2025 Team Status: Active Member Role Status Dates Dr. Rogelio Colvin MD Primary Care Provider Active Start: March 04, 2025 Dr. Bryn Mccall MD Admit Provider Active Start : March 04, 2025 Dr. Bryn Mccall MD Referring Provider Active S tart: March 04, 2025 Dr. Bryn Mccall MD Other Provider Active Start : March 04, 2025 JORGE A Schmitt Attending Provider Active Star t: March 04, 2025 Team Status: Inactive Member Role Status Dates Dr. Rogelio Colvin MD Primary Care Provider Active Start: March 09, 2025 End: March 09, 2025 JORGE A Bauman Attending Provider Active Star t: March 09, 2025 End: March 09, 2025 JORGE A Bauman Referring Provider Active Star t: March 09, 2025 End: March 09, 2025 Team Status: Inactive Member Role Status Dates Dr. Rogelio Colvin MD Primary Care Provider Active Start: March 10, 2025 End: March 10, 2025 Dr. Rogelio Colvin MD Referring Provider Active Start: March 10, 2025 End: March 10, 2025 JORGE A Schmitt Attending Provider Active Star t: March 10, 2025 End: March 10, 2025 Team Status: Inactive Member Role Status Dates Dr. Rogelio Colvin MD Primary Care Provider Active Start: March 20, 2025 End: March 20, 2025 Dr. Rogelio Colvin MD Referring Provider Active Start: March 20, 2025 End: March 20, 2025 Dr. Dung Aguirre MD Attending Provider Active Start: March 20, 2025 End: March 20, 2025 Team Status: Inactive Member Role Status Dates Dr. Rogelio Colvin MD Primary Care Provider Active Start: April 16, 2025 End: April 16, 2025 Dr. Emerson Jones MD Emergency Provider Active S tart: April 16, 2025 End: April 16, 2025 Goals (unrecognized section and content) Goals [...] preference? Yes 2227 (Given - Provid er: aKthy Workman RN) ketorolac (Toradol) injection 30 mg [...] BE BASED ON THE PRIMARY CLINICAL RECORDS. [facility]. provides no warranty or guarantee of the accuracy or completeness of information in this document.
--- OUTSIDE RECORDS SUMMARY | 2025-05-16 20:46 | XMS RPT_ITS | CCD ---
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 Rogelio Colvin Chi [...] Consulting Unavailable Dr. Delta Garcia Attending Provider [phone] Dr. Rogelio Colvin Chi Referring Provider Dr. Tariq Flores Attending Provider Dr. Zack Smiley Attending Provider Dr. Bryn Mccall Attending Provider Dr. Bryn Mccall Admit Provider Dr. Bryn Mccall Other Provider JORGE A Rebollar Attending Provider Dr. Rogelio Colvin Chi Primary Care Provider Dr. Jacek Raygoza Emergency Provider [phone] Javed Jeffery Admit Provider Dr. [...] Provider [phone] Dr. Bryn Mccall Referring Provider 1([facility])57 10 JORGE A Reynolds Attending Provider Vinicius, Dr. Rogelio Mccray Primary Care Provider 1([facility])[phone] JORGE A Reynolds Referring Provider Vinicius, [...] [phone] JORGE A Jacques Referring Provider 1([facility])-57 10 Vinicius, Dr. Rogelio Mccray Referring Provider JORGE A Jacques Attending Provider [phone] Generic Provider MD, No Assigned Pcp Primary Car e Provider Unavailable NAYELI MENDY Chaparro Attending Unavailable GENERIC PROVIDER, NO ASSIGNED PCP Primary Care Unavailable Vinicius TRISTAN, Dr. Rogelio Mccray Primary Care Provider [phone] Tami BANKS, Dr. Arcos Attending Provider Tami BANKS, Dr. Arcos Emergency Provider Stefany [...] Dr. Rogelio Mccray Primary Care Provider [phone] Vinicius TRISTAN, Dr. Rogelio Mccray Referring Provider Stefany TRISTAN, Dr. Clemente Attending Provider [phone] Stefany TRISTAN, Dr. Clemente Referring Provider Dr. Bryn Victor DO Attending Provider Dr. Bryn Victor DO Referring Provider Nadia Willis Referring Provider Timothy TRISTAN, Dr. Razo Attending Provider Robert TRISTAN, Dr. Norman Emergency Provider Teena Jacques Attending Unavailable Vinicius, Rogelio Chi Primary Care Unavailable Bryn Mccall Attending Unavailable Vinicius, Rogelio Chi Referring Unavailable Vinicius, Rogelio Chi Primary Care Unavailable Vinicius, Rogelio Chi Referring Unavailable Jacques, Teena Attending Unavailable Vinicius, Rogelio Chi Primary Care Unavailable Sharon, Bryn Attending Unavailable Stefany, Bryn Referring Unavailable Stefany, Bryn Admitting Unavailable Vinicius, Rogelio Chi Primary Care Unavailable Jacques, Teena Attending Unavailable Vinicius, Rogelio Chi Referring Unavailable Vniicius, Rogelio Chi Primary Care Unavailable Vinicius, Rogelio Chi Primary Care Unavailable Isrrael Garrett Attending Unavailable Dimas Gill Attending Unavailable Vinicius, Rogelio Chi Primary Care Unavailable Vinicius, Rogelio Chi Primary Care Unavailable Sharon, Bryn Attending Unavailable Vinicius, Rogelio Chi Referring Unavailable Dung Aguirre Attending Unavailable Vinicius, Rogelio Chi Referring Unavailable Vinicius, Rogelio Chi Primary Care Unavailable Sharon, Bryn Referring Unavailable Stefany, Bryn Attending Unavailable Stefany, Bryn Admitting Unavailable Stefany, Bryn Consulting Unavailable Vinicius, Rogelio Chi Primary Care Unavailable Jacques, Teena Attending Unavailable Sharon, Bryn Attending Unavailable Stefany, Bryn Referring Unavailable Sharon, Bryn Consulting Unavailable Vinicius, Rogelio Chi Primary Care Unavailable Stefany, Bryn Attending Unavailable Schwiger, Bryn Referring Unavailable Vinicius, Rogelio Chi Primary Care Unavailable Stefany, Bryn Referring Unavailable Sharon, Bryn Admitting Unavailable Stefany, Bryn Consulting Unavailable [...] Primary Care Unavailable Stefany, Bryn Referring Unavailable Sharon, Bryn Attending Unavailable Vinicius, Rogelio Chi Primary [...] Bryn Referring Unavailable Stefany, Bryn Attending Unavailable Sharon, Bryn Consulting Unavailable Vinicius, Rogelio Chi Primary [...] PO Q8H 0 December 07, 2022 12:00am [id number], every 8 hourly for 3 days and [...] 2 Receptor Lori Start: 02-13-2023 End: 03-10-2025 Valsartan-Delavan chlorothiazide 160-12.5 mg tablet Discontinued 1 NMA [...] source) Long-term current use of anticoagulant; Translations: [MCFP (current) use of anticoagulants] 04-16-2025 Episodic Other [...] without Contrasto n 04-16-2025 Brain/Head without Contrast [facility] Imaging Services [address] [place] [address] Brain/Head without Contrast MR#: [id number] Acct: [id number] Name: DELTA CHEEK JrChristine Rep #: [id number] : 1975 M 49 From: eDlta Prakash PCP: Dr. Rogelio Colvin MD Status: REG ER Study: Brain/Head without Contrast Date of Exam: 04/05 Exam# [id number] Ordering Dr: Emerson Jones MD PROCEDURE: BRAIN/HEAD [...] IMPRESSION: No acute intracranial abnormality. [facility] CC: Dr. Emerson Jones MD; Dr. 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 Normal [facility] Orthopedic Visit Reporton Orthopedic Visit Report [facility] [address] [place] [address] OFFICE VISIT Date of Service: 03/20/25 MR#: [id number] Acct: [id number] Name: DELTA CHEEK Jr. Rep #: [id number] : 1975 Provider: Dr. Dung Aguirre MD Age/Sex: 49/M Location: [facility] Status: Signed with Addenda ADDENDUM by Dr. [...] by me, Dr. Dung Aguirre MD 03/20/25 7181. Part of today???s visit was documented by [...] by Dr. Flores. 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 Normal [facility] MR/BMS.BVLenny 03-10-2025 MR/BMS.BVS [facility] [address] [place] [address] OFFICE VISIT Date of Service: 03/10/25 MR#: [id number] Acct: [id number] Name: DELTA CHEEK Jr. Rep #: [id number] : 1975 Provider: JORGE A Schmitt Age/Sex: 49/M [facility] Status: Signed Intake Vital Signs 01/26/25 [...] 3-4 WK FU Chief Complaint: Follow Up Pharmacy Aide Required: No Is patient in pain?: Yes [...] no ac (more content not included)... Normal [facility] Spine Lumbar (Routine)on Spine Lumbar (Routine) [facility] Imaging Services [address] [place] [address] Spine Lumbar (Routine) MR#: [id number] Acct: [id number] Name: DELTA CHEEK Jr. Rep #: [id number] : 1975 [address] 49 From: Eugenio Euceda MD PCP: Dr. Rogelio Colvin MD Status: [facility] Study: Spine Lumbar (Routine) Date of Exam: 03/09/25 Exam# [id number] Ordering Dr: Nadia Brandt PA PROCEDURE: SPINE [...] JORGE A Bauman; Dr. Rogelio Colvin MD Weight Loss Sales Consultant: Signed Normal [facility] Activated partial thrombopla stin time (aPTT) in platelet poor plasma by coagulation aOrdered By: Bryn Mccall on 03-04-2025 aPTT Coag (PPP) [Time] 63.9 s High 24.1-36.2 [facility] Partial Thromboplast Timeon 03-04-2025 aPTT Coag (Bld) [Time] 63.9 s High 24.1-36.2 [facility] Comment on above: Order Comment: Comme nts: heparin gtt Performed By: #### L 300.4310 ####[facility] [address] [place], [place], [id number] Absolute lymphocyte countOrd ered By: Bryn Mccall on 03-03-2025 Lymphocytes Auto (Unsp spec) [#/Vol] 1.31 10*3/uL 0.83-4.51 [facility] Absolute neutrophil countOrd ered By: Bryn Mccall on 03-03-2025 Neutrophils (Bld) [#/Vol] 2.1 10*3/uL 2.0-7.7 [facility] Anion gap in Serum or Plasma Ordered By: Bryn Mccall on 03-03-2025 Anion gap [Moles/Vol] 10 mmol/L 5-15 [facility] Automated lymphocyte count a s percentage of total leukocytesOrdered By: Bryn Mccall on 03-03-2025 Lymphocytes/100 WBC Auto (Unsp spec) 33.1 % 19-41 [facility] BUN/creatinine ratioOrdered By: Bryn Mccall on 03-03-2025 Urea nitrogen/Creatinine [Mass ratio] 13.1 mg/mg 10- [facility] Basic Metabolic Profile (BMP )on 03-03-2025 BUN/CRE 13.1 RATIO Normal - [facility] Comment on above: Performed By: #### L 9100.0100 #### [facility] Laboratory [address] [place], [place], [id number] Calcium [Mass/Vol] 9.1 mg/dL Normal 7.6-11.0 [facility] Comment on above: Performed By: #### L 9100.0100 #### [facility] Laboratory [address] [place], [address] Chloride [Moles/Vol] 104 mmol/L Normal 98-108 [facility] Comment on above: Performed By: #### L 00.0100 #### [facility] Laboratory [address] [place], [address] CO2 [Moles/Vol] 26.1 mmol/L Normal 21.0-32.0 [facility] Comment on above: Performed By: #### L 00.0100 #### [facility] Laboratory [address] [place], [address] Creatinine [Mass/Vol] 0.94 mg/dL Normal 0.70-1.20 [facility] Comment on above: Performed By: #### L 00.0100 #### [facility] Laboratory [address] [place], [address] ECRCL 125.08 ml/min Normal 50-250 [facility] Comment on above: Performed By: #### L 9100.0100 #### [facility] Laboratory [address] [place], [address] GAP 10 Normal 5-15 [facility] Comment on above: Performed By: #### L 9100.0100 #### [facility] Laboratory [address] [place], [address] GFR/1.73 sq M.predicted among non-blacks MDRD (S/P/Bld) [Vol rate/Area] 98 mL/min/{1.73_m2} Normal >60 [facility] Comment on above: Result Comment: mL/m in/1.73m2 CKD-EPI Creatinine Equation (2020) Performed By: #### L 9100.0100 #### [facility] Laboratory [address] [place], [address] Glucose [Mass/Vol] 99 mg/dL Normal 70-99 [facility] Comment on above: Performed By: #### L 00.0100 #### [facility] Laboratory [address] [place], [address] Potassium [Moles/Vol] 3.9 mmol/L Normal 3.3-5.1 [facility] Comment on above: Performed By: #### L 9099.0100 #### [facility] Laboratory [address] [place], [address] Sodium [Moles/Vol] 140 mmol/L Normal 133-145 [facility] Comment on above: Performed By: #### L 9099.0100 #### [facility] Laboratory [address] [place], [address] Urea nitrogen [Mass/Vol] 12 mg/dL Normal 4-19 [facility] Comment on above: Performed By: #### L 9099.0100 #### [facility] Laboratory [address] [place], [address] Basophil percentageOrdered B y: Bryn Mccall on 03-03-2025 Basophils/100 WBC (Bld) 1.0 % 0-1 [facility] CBC W/Diff, Automatedon 02-11 Absolute Lymph 1.31 X10 3/uL Normal 0.83-4.51 [facility] Comment on above: Performed By: #### L 00.0100 #### [facility] Laboratory [address] [place], [address] Absolute Neut 2.1 X10 3/uL Normal 2.0-7.7 [facility] Comment on above: Performed By: #### L 00.0100 #### [facility] Laboratory [address] [place], [address] Basophils/100 WBC (Bld) 1.0 % Normal 0-1 [facility] Comment on above: Performed By: #### L 00.0100 #### [facility] Laboratory [address] [place], [address] Eosinophils/100 WBC (Bld) 1.5 % Normal 0-5 [facility] Comment on above: Performed By: #### L 9099.0100 #### [facility] Laboratory [address] [place], [address] Erythrocyte distribution width (RBC) [Ratio] 12.3 % Normal 11.6-14.6 [facility] Comment on above: Performed By: #### L 9099.0100 #### [facility] Laboratory [address] [place], [address] Hematocrit (Bld) [Volume fraction] 38.6 % Low 40-54 [facility] Comment on above: Performed By: #### L 9099.0100 #### [facility] Laboratory [address] [place], [address] Hemoglobin (Bld) [Mass/Vol] 13.0 g/dL Normal 13.0-16.5 [facility] Comment on above: Performed By: #### L 9099.0100 #### [facility] Laboratory [address] [place], [address] IG% 0.300 Normal 0.0-0.9 [facility] Comment on above: Result Comment: IG% - Immature Granulocytes (promyelocytes, myelocytes and metamyelocytes) > 1% indicates that a LEFT SHIFT is Present. Performed By: #### L 9099.0100 #### [facility] Laboratory [address] [place], [address] Lymphocytes/100 WBC (Bld) 33.1 % Normal 19-41 [facility] Comment on above: Performed By: #### L 9099.0100 #### [facility] Laboratory [address] [place], [address] MCH (RBC) [Entitic mass] 29.3 pg Normal 27.0-32.0 [facility] Comment on above: Performed By: #### L 00.0100 #### [facility] Laboratory [address] [place], [address] MCHC (RBC) [Mass/Vol] 33.7 g/dL Normal 32-36 [facility] Comment on above: Performed By: #### L 9099.0100 #### [facility] Laboratory [address] [place], [address] MCV (RBC) [Entitic vol] 87.1 fL Normal 80-94 [facility] Comment on above: Performed By: #### L 9099.0100 #### [facility] Laboratory [address] [place], [address] Monocytes/100 WBC (Bld) 10.9 % High 0-10 [facility] Comment on above: Performed By: #### L 9099.0100 #### [facility] Laboratory [address] [place], [address] Neutrophils/100 WBC (Bld) 53.2 % Normal 47-70 [facility] Comment on above: Performed By: #### L 00.0100 #### [facility] Laboratory [address] [place], [address] Nucleated RBC (Bld) [#/Vol] 0 10*3/uL Normal 0-5 [facility] Comment on above: Performed By: #### L 00.0100 #### [facility] Laboratory [address] [place], [address] Platelet mean volume (Bld) [Entitic vol] 9.1 fL Normal 6.2-12.0 [facility] Comment on above: Performed By: #### L 9099.0100 #### [facility] Laboratory [address] [place], [address] Platelets (Bld) [#/Vol] 210 10*3/uL Normal 150-450 [facility] Comment on above: Performed By: #### L 9100.0100 #### [facility] Laboratory [address] [place], [address] RBC (Bld) [#/Vol] 4.43 10*6/uL Low 4.6-6.2 [facility] Comment on above: Performed By: #### L 9100.0100 #### [facility] Laboratory [address] [place], [address] RDW SD 39.3 fl Normal 35.1-43.9 [facility] Comment on above: Performed By: #### L 9100.0100 #### [facility] Laboratory [address] [place], [address] WBC (Bld) [#/Vol] 4.0 10*3/uL Low 4.4-11.0 [facility] Comment on above: Performed By: #### L 9100.0100 #### [facility] Laboratory [address] [place], [address] Carbon dioxide, total [Moles /volume] in Central venous bloodOrdered By: Bryn Mccall on 03-03-2025 CO2 [Moles/Vol] 26.1 mmol/L 21.0-32.0 [facility] Chloride assayOrdered By: Bonifacio Mccall on 03-03-2025 Chloride [Moles/Vol] 104 mmol/L 98-108 [facility] Eosinophil percentageOrdered By: Bryn Mccall on 03-03-2025 Eosinophils/100 WBC (Bld) 1.5 % 0-5 [facility] Erythrocyte distribution wid th ratioOrdered By: Bryn Mccall on 03-03-2025 Erythrocyte distribution width (RBC) [Ratio] 12.3 % 11.6-14.6 [facility] Erythrocyte distribution wid th standard deviationOrdered By: Bryn Mccall on 03-03-2025 Erythrocyte distribution width (RBC) [Ratio] 39.3 fl 35.1-43.9 [facility] Glomerular filtration rate ( GFR) estimation/1.73 sq m using serum, plasma, or whole bOrdered By: Bryn Mccall on 03-03-2025 GFR/1.73 sq M.predicted among non-blacks MDRD (S/P/Bld) [Vol rate/Area] 98 mL/min/{1.73_m2} >60 [facility] Comment on above: mL/min/1.73m2 CKD-EP I Creatinine Equation (2020) Hematocrit Auto (Bld) [Volum e fraction]Ordered By: Bryn Mccall on 03-03-2025 Hematocrit (Bld) [Volume fraction] 38.6 % Low 40-54 [facility] Hemoglobin measurementOrdere d By: Bryn Mccall on 03-03-2025 Hemoglobin (Bld) [Mass/Vol] 13.0 g/dL 13.0-16.5 [facility] Immature granulocytes/100 WB C Auto (Bld)Ordered By: Bryn Mccall on 03-03-2025 Immature granulocytes/100 WBC (Bld) 0.300 % 0.0-0.9 [facility] Comment on above: IG% - Immature Granu locytes (promyelocytes, myelocytes and metamyelocytes) > 1% indicates that a LEFT SHIFT is Present. MCV (mean corpuscular volume ) determinationOrdered By: Bryn Mccall on 03-03-2025 MCV (RBC) [Entitic vol] 87.1 fL 80-94 [facility] MR/POSTOP.ANEon 03-03-2025 MR/POSTOP.ANE [facility] Medical Records Department [address] [place] [address] Anesthesia Postop Eval I 03/03/25 1305 MR#: [id number] Acct: [id number] Name: DELTA CHEEK Jr. Rep #: [id number] : 1975 49 From: Hossein Cheek CRNA PCP: Dr. Rogelio Colvin MD Status:ADM IN Y Race: C Location: [place] [address] Anesthesia: Postop Eval I Current Vital Signs [...] CRNA Cosigner Signature: Date CC: Signed Normal [facility] MR/ZDSXLDBV0cm 03-03-2025 [facility] Medical Records Department [address] [place] [address] Anesthesia Postop Eval II 03/03/252017 MR#: [id number] Acct: [id number] Name: DELTA CHEEK Jr. Rep #: [id number] : 1975 49 From: Andrew Carranza MD PCP: Dr. 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 respirations Mental status Awake,Calm 03/03/25 13:05 CARDIOPULMONARY SUPERVISOR.PKEL nausea No 03/03/25 13:05 CARDIOPULMONARY SUPERVISOR.PKEL Vomiting No 03/03/25 13:05 CARDIOPULMONARY SUPERVISOR.PKEL Anesthesia Postop Eval I: Fluid Summary Crystalloid volume administer 1,100 03/03/25 13:05 CARDIOPULMONARY SUPERVISOR.PKEL (ml) Colloids volume administered ( ml) Blood Product volume administered (ml) Total IV fluid infused 1,100 03/03/25 13:05 CARDIOPULMONARY SUPERVISOR.PKEL Anesthesia Postop Eval I: Summary Notes Anesthesia Complication No 03/03/25 13:05 CARDIOPULMONARY SUPERVISOR.MIKE Anesthesia Complication Comment: Post-operative progress note Anesthesia: Postop Eval II Evaluation Mental status: Awake and Calm Pain Level: 1 nausea: No Vomiting: No Complications Anesthesia Complication: No 03/03/252017 Date Andrew Carranza MD Cosigner Signature: Date CC: Signed Normal [facility] Mean corpuscular hemoglobin (MCH) determinationOrdered By: Bryn Mccall on 03-03-2025 MCH (RBC) [Entitic mass] 29.3 pg 27.0-32.0 [facility] Mean corpuscular hemoglobin concentration (MCHC) determinationOrdered By: Bryn Mccall on 03-03-2025 MCHC (RBC) [Mass/Vol] 33.7 g/dL 32-36 [facility] Mean platelet volume determi nationOrdered By: Bryn Mccall on 03-03-2025 Platelet mean volume (Bld) [Entitic vol] 9.1 fL 6.2-12.0 [facility] Monocyte percentageOrdered B y: Bryn Mccall on 03-03-2025 Monocytes/100 WBC (Bld) 10.9 % High 0-10 [facility] Neutrophil percentageOrdered By: Bryn Mccall on 03-03-2025 Neutrophils/100 WBC (Bld) 53.2 % 47-70 [facility] Nucleated red blood cell per centageOrdered By: Bryndebra Mccall on 03-03-2025 Nucleated RBC/100 WBC (Bld) [Ratio] 0 % 0-5 [facility] Operative Reporton Operative Report [facility] Medical Records Department [address] [place] [address] Operative Report 03/03/25 1232 MR#: [id number] Acct: [id number] Name: DELTA CHEEK Jr. Rep #: [id number] : 1975 49 From: Bryn Mccall MD PCP: Dr. Rogelio Colvin MD Status:ADM IN [id number] Operative Report (Standard) Operative Information Date of Procedure: 03/03/25 Pre-Operative Diagnosis: obstruction left iliac vein Post-Operative Diagnosis: same Surgery/Procedure Performed: venogram IVC IVUS IVC, left common iliac vein, left external iliac vein angioplasty left external iliac vein tax manager cpa: No Type of Anesthesia: General RN Documented [...] site the patient was taken to the Crossbar Switch Adjuster where he was placed under general anesthesia. [...] the micropuncture sheath exchanged for a 10 Filipino sheath. Through the 10 Filipino sheath the Bentson wire was navigated through [...] significant thrombus or stenosis. Next a [place] 16 x 40 angioplasty balloon was advanced centered on the external iliac vein stenosis and inflated for multiple inflations. This was then withdrawn and a [place] XXL 18 x 40 angioplasty balloon was [...] PCU fo (more content not included)... Normal [facility] Partial Thromboplast Timeon 03-03-2025 aPTT Coag (Bld) [Time] 44.6 s High 24.1-36.2 [facility] Comment on above: Performed By: #### L 500.2500, L100.0500 #### [facility] Laboratory [place], [address] aPTT Coag (Bld) [Time] 49.4 s High 24.1-36.2 [facility] Comment on above: Order Comment: PT OU T OF ROOM FOR TESTING. NURSE WIIL CALL WHEN BACK ONFLOOR Performed By: #### L 300.4310 ####[facility] [address] [place], [address] aPTT Coag (Bld) [Time] 42.5 s High 24.1-36.2 [facility] Comment on above: Performed By: #### L 300.4310 #### [facility] Laboratory [address] [place], [address] aPTT Coag (Bld) [Time] 43.8 s High 24.1-36.2 [facility] Comment on above: Order Comment: Comme nts: heparin gtt Performed By: #### L 9100.0100 #### [facility] Laboratory [address] [place], [address] Platelet countOrdered By: Bonifacio Mccall on 03-03-2025 Platelets (Bld) [#/Vol] 210 10*3/uL 150-450 [facility] Potassium measurement (mass/ volume)Ordered By: Bryn Mccall on 03-03-2025 Potassium (Unsp spec) [Mass/Vol] 3.9 mmol/L 3.3-5.1 [facility] RBC Auto (Bld) [#/Vol]Ordere d By: Bryn Mccall on 03-03-2025 RBC (Bld) [#/Vol] 4.43 10*6/uL Low 4.6-6.2 [facility] Serum creatinine measurement (mass/volume)Ordered By: Bryn Mccall on 03-03-2025 Creatinine [Mass/Vol] 0.94 mg/dL 0.70-1.20 [facility] Serum glucose measurement (m ass/volume)Ordered By: Bryn Mccall on 03-03-2025 Glucose [Mass/Vol] 99 mg/dL 70-99 [facility] Serum or plasma calcium rosangela urement (mass/volume)Ordered By: Bryn Mccall on 03-03-2025 Calcium [Mass/Vol] 9.1 mg/dL 7.6-11.0 [facility] Serum or plasma urea nitroge n measurement (mass/volume)Ordered By: Bryn Mccall on 03-03-2025 Urea nitrogen [Mass/Vol] 12 mg/dL 4-19 [facility] Sodium levelOrdered By: Bryn Mccall on 03-03-2025 Sodium [Moles/Vol] 140 mmol/L 133-145 [facility] White blood cell (WBC) count Ordered By: Bryn Mccall on 03-03-2025 WBC (Bld) [#/Vol] 4.0 10*3/uL Low 4.4-11.0 [facility] International normalized rat io (INR) calculationOrdered By: Bryn Mccall on 03-02-2025 INR Coag (Bld) [Relative time] 1.0 {INR} [facility] Partial Thromboplast Timeon 03-02-2025 aPTT Coag (Bld) [Time] 31.1 s Normal 24.1-36.2 [facility] Comment on above: Performed By: #### L 300.4310 ####[facility] [address] [place], [address] Prothrombin Time w/INRon INR Coag (PPP) [Relative time] 1.0 {INR} Normal [facility] Comment on above: Performed By: #### L 300.3900 ####[facility] [address] [place], [address] PT Coag (PPP) [Time] 13.6 s Normal 11.7-14.9 [facility] Comment on above: Performed By: #### L 300.3900 ####[facility] [address] [place], [address] Prothrombin timeOrdered By: Bryn Mccall on 03-02-2025 PT Coag (PPP) [Time] 13.6 s 11.7-14.9 [facility] MR/BMS.BVSon 02-16-2025 MR/BMS.BVS [facility] [address] [place], [place] [address] OFFICE VISIT Date of Service: 02/16/25 MR#: [id number] Acct: [id number] Name: DELTA CHEEK Jr. Rep #: [id number] : 1975 Provider: Dr. Bryn Mccall MD Age/Sex: 49/M Location: [facility] Status: Signed Intake Vital Signs [...] movements, No (more content not included)... Normal [facility] Absolute lymphocyte countOrd ered By: Bryn Victor on 02-09-2025 Lymphocytes Auto (Unsp spec) [#/Vol] 1.61 10*3/uL 0.83-4.51 [facility] Absolute neutrophil countOrd ered By: Bryn Victor on 02-09-2025 Neutrophils (Bld) [#/Vol] 3.7 10*3/uL 2.0-7.7 [facility] Activated partial thrombopla stin time (aPTT) in platelet poor plasma by coagulation aOrdered By: Bryn Victor on 02-09-2025 aPTT Coag (PPP) [Time] 30.6 s 24.1-36.2 [facility] Anion gap in Serum or Plasma Ordered By: Bryn Victor on 02-09-2025 Anion gap [Moles/Vol] 18 mmol/L High 5-15 [facility] Automated lymphocyte count a s percentage of total leukocytesOrdered By: Bryn Victor on 02-09-2025 Lymphocytes/100 WBC Auto (Unsp spec) 26.4 % 19-41 [facility] BUN/creatinine ratioOrdered By: Bryn Victor on 02-09-2025 Urea nitrogen/Creatinine [Mass ratio] 15.1 mg/mg 10- [facility] Basic Metabolic Profile (BMP )on 02-09-2025 BUN/CRE 15.1 RATIO Normal 08-31 [facility] Comment on above: Performed By: #### L 500.2500, L100.0500 #### [facility] Laboratory [address] [place], [address] Calcium [Mass/Vol] 9.4 mg/dL Normal 7.6-11.0 [facility] Comment on above: Performed By: #### L 500.2500, L100.0500 #### [facility] Laboratory [address] [place], [address] Chloride [Moles/Vol] 102 mmol/L Normal 98-108 [facility] Comment on above: Performed By: #### L 500.2500, L100.0500 #### [facility] Laboratory [address] [place], [address] CO2 [Moles/Vol] 17.6 mmol/L Low 21.0-32.0 [facility] Comment on above: Performed By: #### L 500.2500, L100.0500 #### [facility] Laboratory [address] [place], [address] Creatinine [Mass/Vol] 0.96 mg/dL Normal 0.70-1.20 [facility] Comment on above: Performed By: #### L 500.2500, L100.0500 #### [facility] Laboratory [address] [place], [address] ECRCL 123.08 ml/min Normal 50-250 [facility] Comment on above: Performed By: #### L 500.2500, L100.0500 #### [facility] Laboratory [address] [place], [address] GAP 18 High 5-15 [facility] Comment on above: Performed By: #### L 500.2500, L100.0500 #### [facility] Laboratory [address] [place], [address] GFR/1.73 sq M.predicted among non-blacks MDRD (S/P/Bld) [Vol rate/Area] 95 mL/min/{1.73_m2} Normal >60 [facility] Comment on above: Result Comment: mL/m in/1.73m2 CKD-EPI Creatinine Equation (2020) Performed By: #### L 500.2500, L100.0500 #### [facility] Laboratory [address] [place], [address] Glucose [Mass/Vol] 84 mg/dL Normal 70-99 [facility] Comment on above: Performed By: #### L 500.2500, L100.0500 #### [facility] Laboratory [address] [place], [address] Potassium [Moles/Vol] 4.3 mmol/L Normal 3.3-5.1 [facility] Comment on above: Result Comment: Hemo lysis present, Results??could be affected. ?? Performed By: #### L 500.2500, L100.0500 #### [facility] Laboratory [address] [place], [address] Sodium [Moles/Vol] 138 mmol/L Normal 133-145 [facility] Comment on above: Performed By: #### L 500.2500, L100.0500 #### [facility] Laboratory [address] [place], [address] Urea nitrogen [Mass/Vol] 15 mg/dL Normal 4-19 [facility] Comment on above: Performed By: #### L 500.2500, L100.0500 #### [facility] Laboratory [address] [place], [address] Basophil percentageOrdered B y: Bryn Victor on 02-09-2025 Basophils/100 WBC (Bld) 1.0 % 0-1 [facility] CBC W/Diff, Automatedon 01-12 Absolute Lymph 1.61 X10 3/uL Normal 0.83-4.51 [facility] Comment on above: Performed By: #### L 500.2500, L100.0500 #### [facility] Laboratory [address] [place], [address] Absolute Neut 3.7 X10 3/uL Normal 2.0-7.7 [facility] Comment on above: Performed By: #### L 500.2500, L100.0500 #### [facility] Laboratory [address] [place], [address] Basophils/100 WBC (Bld) 1.0 % Normal 0-1 [facility] Comment on above: Performed By: #### L 500.2500, L100.0500 #### [facility] Laboratory [address] [place], [address] Eosinophils/100 WBC (Bld) 1.0 % Normal 0-5 [facility] Comment on above: Performed By: #### L 500.2500, L100.0500 #### [facility] Laboratory [address] [place], [address] Erythrocyte distribution width (RBC) [Ratio] 12.4 % Normal 11.6-14.6 [facility] Comment on above: Performed By: #### L 500.2500, L100.0500 #### [facility] Laboratory [address] [place], [address] Hematocrit (Bld) [Volume fraction] 42.9 % Normal 40-54 [facility] Comment on above: Performed By: #### L 500.2500, L100.0500 #### [facility] Laboratory [address] [place], [address] Hemoglobin (Bld) [Mass/Vol] 14.2 g/dL Normal 13.0-16.5 [facility] Comment on above: Performed By: #### L 500.2500, L100.0500 #### [facility] Laboratory [address] [place], [address] IG% 0.300 Normal 0.0-0.9 [facility] Comment on above: Result Comment: IG% - Immature Granulocytes (promyelocytes, myelocytes and metamyelocytes) > 1% indicates that a LEFT SHIFT is Present. Performed By: #### L 500.2500, L100.0500 #### [facility] Laboratory [address] [place], [address] Lymphocytes/100 WBC (Bld) 26.4 % Normal 19-41 [facility] Comment on above: Performed By: #### L 500.2500, L100.0500 #### [facility] Laboratory [address] [place], [address] MCH (RBC) [Entitic mass] 29.5 pg Normal 27.0-32.0 [facility] Comment on above: Performed By: #### L 500.2500, L100.0500 #### [facility] Laboratory [address] [place], [address] MCHC (RBC) [Mass/Vol] 33.1 g/dL Normal 32-36 [facility] Comment on above: Performed By: #### L 500.2500, L100.0500 #### [facility] Laboratory [address] [place], [address] MCV (RBC) [Entitic vol] 89.2 fL Normal 80-94 [facility] Comment on above: Performed By: #### L 500.2500, L100.0500 #### [facility] Laboratory [address] [place], [address] Monocytes/100 WBC (Bld) 10.2 % High 0-10 [facility] Comment on above: Performed By: #### L 500.2500, L100.0500 #### [facility] Laboratory [address] [place], [address] Neutrophils/100 WBC (Bld) 61.1 % Normal 47-70 [facility] Comment on above: Performed By: #### L 500.2500, L100.0500 #### [facility] Laboratory [address] [place], [address] Nucleated RBC (Bld) [#/Vol] 0 10*3/uL Normal 0-5 [facility] Comment on above: Performed By: #### L 500.2500, L100.0500 #### [facility] Laboratory [address] [place], [address] Platelet mean volume (Bld) [Entitic vol] 9.2 fL Normal 6.2-12.0 [facility] Comment on above: Performed By: #### L 500.2500, L100.0500 #### [facility] Laboratory [address] [place], [address] Platelets (Bld) [#/Vol] 307 10*3/uL Normal 150-450 [facility] Comment on above: Performed By: #### L 500.2500, L100.0500 #### [facility] Laboratory [address] [place], [address] RBC (Bld) [#/Vol] 4.81 10*6/uL Normal 4.6-6.2 [facility] Comment on above: Performed By: #### L 500.2500, L100.0500 #### [facility] Laboratory [address] [place], [address] RDW SD 40.6 fl Normal 35.1-43.9 [facility] Comment on above: Performed By: #### L 500.2500, L100.0500 #### [facility] Laboratory [address] [place], [address] WBC (Bld) [#/Vol] 6.1 10*3/uL Normal 4.4-11.0 [facility] Comment on above: Performed By: #### L 500.2500, L100.0500 #### [facility] Laboratory [address] [place], [address] Carbon dioxide, total [Moles /volume] in Central venous bloodOrdered By: Bryn Victor on 02-09-2025 CO2 [Moles/Vol] 17.6 mmol/L Low 21.0-32.0 [facility] Chloride assayOrdered By: Bonifacio Victor on 02-09-2025 Chloride [Moles/Vol] 102 mmol/L 98-108 [facility] Emergency Department Summary on 02-09-2025 Emergency Department Summary [facility] Department [address] [place] [address] Emergency Department Summary 02/09/25 MR#: [id number] Acct: [id number] Name: DELTA CHEEK Jr. Rep #: [id number] : 1975 49 From: Bryn Victor DO [...] symptoms: Yes and With Prior Back Pain [facility] Medical History Wears glasses Marijuana use [...] bony crep (more content not included)... Normal [facility] Eosinophil percentageOrdered By: Bryn Victor on 02-09-2025 Eosinophils/100 WBC (Bld) 1.0 % 0-5 [facility] Erythrocyte distribution wid th ratioOrdered By: Bryn Victor on 02-09-2025 Erythrocyte distribution width (RBC) [Ratio] 12.4 % 11.6-14.6 [facility] Erythrocyte distribution wid th standard deviationOrdered By: Bryn Victor on 02-09-2025 Erythrocyte distribution width (RBC) [Entitic vol] 40.6 fL 35.1-43.9 [facility] Erythrocyte distribution width (RBC) [Ratio] 40.6 fl 35.1-43.9 [facility] Estimation of creatinine obed aranceOrdered By: Bryn Victor on 02-09-2025 Estimated Creatinine Clearance Calc 123.08 ml/min 50-250 [facility] GFR/1.73 sq M.predicted xander g non-blacks MDRD (S/P/Bld) [Vol rate/Area]Ordered By: Bryn Victor on 02-09-2025 Estimated GFR (MDRD) Non-Af Amer 95 >60 [facility] Comment on above: mL/min/1.73m2 CKD-EP I Creatinine Equation (2020) Glomerular filtration rate ( GFR) estimation/1.73 sq m using serum, plasma, or whole bOrdered By: Bryn Victor on 02-09-2025 GFR/1.73 sq M.predicted among non-blacks MDRD (S/P/Bld) [Vol rate/Area] 95 mL/min/{1.73_m2} >60 [facility] Comment on above: mL/min/1.73m2 CKD-EP I Creatinine Equation (2020) Hematocrit Auto (Bld) [Volum e fraction]Ordered By: Bryn Victor on 02-09-2025 Hematocrit (Bld) [Volume fraction] 42.9 % 40-54 [facility] Hemoglobin measurementOrdere d By: Bryn Victor on 02-09-2025 Hemoglobin (Bld) [Mass/Vol] 14.2 g/dL 13.0-16.5 [facility] Immature granulocytes/100 WB C Auto (Bld)Ordered By: Bryn Victor on 02-09-2025 Immature granulocytes/100 WBC (Bld) 0.300 % 0.0-0.9 [facility] Comment on above: IG% - Immature Granu locytes (promyelocytes, myelocytes and metamyelocytes) > 1% indicates that a LEFT SHIFT is Present. International normalized rat io (INR) calculationOrdered By: Bryn Victor on 02-09-2025 INR Coag (Bld) [Relative time] 0.9 {INR} [facility] Lymphocytes Auto (Unsp spec) [#/Vol]Ordered By: Bryn Victor on 02-09-2025 Lymphocytes (Bld) [#/Vol] 1.61 10*3/uL 0.83-4.51 [facility] Lymphocytes/100 WBC Auto (Un sp spec)Ordered By: Bryn Victor on 02-09-2025 Lymphocytes/100 WBC (Bld) 26.4 % 19-41 [facility] MCV (mean corpuscular volume ) determinationOrdered By: Bryn Victor on 02-09-2025 MCV (RBC) [Entitic vol] 89.2 fL 80-94 [facility] Mean corpuscular hemoglobin (MCH) determinationOrdered By: Bryn Victor on 02-09-2025 MCH (RBC) [Entitic mass] 29.5 pg 27.0-32.0 [facility] Mean corpuscular hemoglobin concentration (MCHC) determinationOrdered By: Bryn Victor on 02-09-2025 MCHC (RBC) [Mass/Vol] 33.1 g/dL -36 [facility] Mean platelet volume determi nationOrdered By: Bryn Victor on 02-09-2025 Platelet mean volume (Bld) [Entitic vol] 9.2 fL 6.2-12.0 [facility] Monocyte percentageOrdered B y: Bryn Victor on 02-09-2025 Monocytes/100 WBC (Bld) 10.2 % High 0-10 [facility] Neutrophil percentageOrdered By: Bryn Victor on 02-09-2025 Neutrophils/100 WBC (Bld) 61.1 % 47-70 [facility] Nucleated red blood cell per centageOrdered By: Bryn Victor on 02-09-2025 Nucleated RBC/100 WBC (Bld) [Ratio] 0 % 0-5 [facility] Partial Thromboplast Timeon 02-09-2025 aPTT Coag (Bld) [Time] 30.6 s Normal 24.1-36.2 [facility] Comment on above: Performed By: #### L 500.2500, L100.0500 #### [facility] Laboratory [address] [place] [address]. [place], [address] Platelet countOrdered By: Bonifacio Victor on 02-09-2025 Platelets (Bld) [#/Vol] 307 10*3/uL 150-450 [facility] Potassium (Unsp spec) [Mass/ Vol]Ordered By: Bryn Victor on 02-09-2025 Potassium [Moles/Vol] 4.3 mmol/L 3.3-5.1 [facility] Comment on above: Hemolysis present, R esults could be affected. Potassium measurement (mass/ volume)Ordered By: Bryn Victor on 02-09-2025 Potassium (Unsp spec) [Mass/Vol] 4.3 mmol/L 3.3-5.1 [facility] Comment on above: Hemolysis present, R esults could be affected. Prothrombin Time w/INRon INR Coag (PPP) [Relative time] 0.9 {INR} Normal [facility] Comment on above: Performed By: #### L 500.2500, L100.0500 #### [facility] Laboratory [address] [place], [address] PT Coag (PPP) [Time] 12.6 s Normal 11.7-14.9 [facility] Comment on above: Performed By: #### L 500.2500, L100.0500 #### [facility] Laboratory [address] [place], [address] Prothrombin timeOrdered By: Bryn Victor on 02-09-2025 PT Coag (PPP) [Time] 12.6 s 11.7-14.9 [facility] RBC Auto (Bld) [#/Vol]Ordere d By: Bryn Victor on 02-09-2025 RBC (Bld) [#/Vol] 4.81 10*6/uL 4.6-6.2 [facility] Serum creatinine measurement (mass/volume)Ordered By: Bryn Victor on 02-09-2025 Creatinine [Mass/Vol] 0.96 mg/dL 0.70-1.20 [facility] Serum glucose measurement (m ass/volume)Ordered By: Bryn Victor on 02-09-2025 Glucose [Mass/Vol] 84 mg/dL 70-99 [facility] Serum or plasma calcium rosangela urement (mass/volume)Ordered By: Bryn Victor on 02-09-2025 Calcium [Mass/Vol] 9.4 mg/dL 7.6-11.0 [facility] Serum or plasma urea nitroge n measurement (mass/volume)Ordered By: Bryn Victor on 02-09-2025 Urea nitrogen [Mass/Vol] 15 mg/dL 4-19 [facility] Sodium levelOrdered By: Bryn Victor on 02-09-2025 Sodium [Moles/Vol] 138 mmol/L 133-145 [facility] Venous Duplex US, Unilateral on 02-09-2025 Venous Duplex US, Unilateral [facility] [address] [place] [address] Venous Duplex US, Unilateral 02/09/25 1542 MR#: [id number] Acct: [id number] Name: DELTA CHEEK Jr. Rep #: [id number] : 1975 49 From: Bryn Mccall MD Attending Dr: Status: DEP ER Ordering Dr: rByn Victor DO Date: 02/09/25 Location: ED Sex: [...] Dictated: 02/09/25 1542 Date Transcribed: 02/10/25 0953 Weight Loss Sales Consultant: Signed Normal [facility] White blood cell (WBC) count Ordered By: Bryn Victor on 02-09-2025 WBC (Bld) [#/Vol] 6.1 10*3/uL 4.4-11.0 [facility] aPTT Coag (PPP) [Time]Ordere d By: Bryn Victor on 02-09-2025 aPTT Coag (Bld) [Time] 30.6 s 24.1-36.2 [facility] L/S Spine Bending Flex/[place] 02-03-2025 L/S Spine Bending Flex/Ext [facility] Imaging Services [address] [place] [address] L/S Spine Bending Flex/Ext MR#: [id number] Acct: [id number] Name: DELTA CHEEK Jr. Rep #: [id number] : 1975 M 49 From: Mendy Back MD PCP: Dr. Rogelio Colvin MD Status: DEP AMB Study: L/S Spine Bending Flex/Ext Date of Exam: 02/03 Exam# [id number] Ordering Dr: Nadia Brandt EXAM: XR Lumbosacral [...] findings in the lumbar spine. Reading [facility] CC: JORGE A Bauman; Dr. Rogelio Colvin MD Weight Loss Sales Consultant: Signed Normal [facility] Orthopedic Visit Reporton Orthopedic Visit Report [facility] [address] [place] [address] [address] [place] [address] OFFICE VISIT Date of Service: 02/03/25 MR#: [id number] Acct: [id number] Name: DELTA CHEEK Jr. Rep #: [id number] : 1975 Provider: JORGE A Bauman Age/Sex: 49/M [facility] Status: Signed Intake Vital Signs 01/26/25 08:20 [...] Flores. 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 Normal [facility] Anion gap in Serum or Plasma Ordered By: Teena Jacques on 01-27-2025 Anion gap [Moles/Vol] 9 mmol/L 03-26 [facility] BUN/creatinine ratioOrdered By: Teena Jacques on 01-27-2025 Urea nitrogen/Creatinine [Mass ratio] 18.3 mg/mg 08-31 [facility] Basic Metabolic Profile (BMP )on 01-27-2025 BUN/CRE 18.3 RATIO Normal 08-31 [facility] Comment on above: Performed By: #### L 500.2500, L100.0500 #### [facility] Laboratory [address] [facility] [place], [address] Calcium [Mass/Vol] 9.6 mg/dL Normal 7.6-11.0 [facility] Comment on above: Performed By: #### L 500.2500, L100.0500 #### [facility] Laboratory [address] [place], [address] Chloride [Moles/Vol] 101 mmol/L Normal 98-108 [facility] Comment on above: Performed By: #### L 500.2500, L100.0500 #### [facility] Laboratory [address] [place], [address] CO2 [Moles/Vol] 26.5 mmol/L Normal 21.0-32.0 [facility] Comment on above: Performed By: #### L 500.2500, L100.0500 #### [facility] Laboratory [address] [place], [address] Creatinine [Mass/Vol] 1.02 mg/dL Normal 0.70-1.20 [facility] Comment on above: Performed By: #### L 500.2500, L100.0500 #### [facility] Laboratory [address] [place], [address] GAP 9 Normal 5-15 [facility] Comment on above: Performed By: #### L 500.2500, L100.0500 #### [facility] Laboratory [address] [place], [address] GFR/1.73 sq M.predicted among non-blacks MDRD (S/P/Bld) [Vol rate/Area] 89 mL/min/{1.73_m2} Normal >60 [facility] Comment on above: Result Comment: mL/m in/1.73m2 CKD-EPI Creatinine Equation (2020) Performed By: #### L 500.2500, L100.0500 #### [facility] Laboratory [address] [place], [address] Glucose [Mass/Vol] 106 mg/dL High 70-99 [facility] Comment on above: Performed By: #### L 500.2500, L100.0500 #### [facility] Laboratory [address] [place], [address] Potassium [Moles/Vol] 4.1 mmol/L Normal 3.3-5.1 [facility] Comment on above: Result Comment: Hemo lysis present, Results??could be affected. ?? Performed By: #### L 500.2500, L100.0500 #### [facility] Laboratory [address] [place], [address] Sodium [Moles/Vol] 137 mmol/L Normal 133-145 [facility] Comment on above: Performed By: #### L 500.2500, L100.0500 #### [facility] [address] [place], [address] Urea nitrogen [Mass/Vol] 19 mg/dL Normal 4-19 [facility] Comment on above: Performed By: #### L 500.2500, L100.0500 #### [facility] [address] [place], [address] CBC-Complete Blood Cnt No Di ffon 01-27-2025 Erythrocyte distribution width (RBC) [Ratio] 13.1 % Normal 11.6-14.6 [facility] Comment on above: Performed By: #### L 500.2500, L100.0500 #### [facility] [address] [place], [address] Hematocrit (Bld) [Volume fraction] 45.1 % Normal 40-54 [facility] Comment on above: Performed By: #### L 500.2500, L100.0500 #### [facility] [address] [place], [address] Hemoglobin (Bld) [Mass/Vol] 15.1 g/dL Normal 13.0-16.5 [facility] Comment on above: Performed By: #### L 500.2500, L100.0500 #### [facility] [address] [place], [address] MCH (RBC) [Entitic mass] 30.0 pg Normal 27.0-32.0 [facility] Comment on above: Performed By: #### L 500.2500, L100.0500 #### [facility] [address] [place], [address] MCHC (RBC) [Mass/Vol] 33.5 g/dL Normal 32-36 [facility] Comment on above: Performed By: #### L 500.2500, L100.0500 #### [facility] [address] [place], [address] MCV (RBC) [Entitic vol] 89.7 fL Normal 80-94 [facility] Comment on above: Performed By: #### L 500.2500, L100.0500 #### [facility] [address] [place], [address] Platelet mean volume (Bld) [Entitic vol] 9.3 fL Normal 6.2-12.0 [facility] Comment on above: Performed By: #### L 500.2500, L100.0500 #### [facility] [address] [place], [address] Platelets (Bld) [#/Vol] 328 10*3/uL Normal 150-450 [facility] Comment on above: Performed By: #### L 500.2500, L100.0500 #### [facility] [address] [place], [address] RBC (Bld) [#/Vol] 5.03 10*6/uL Normal 4.6-6.2 [facility] Comment on above: Performed By: #### L 500.2500, L100.0500 #### [facility] [address] [place], [address] RDW SD 42.5 fl Normal 35.1-43.9 [facility] Comment on above: Performed By: #### L 500.2500, L100.0500 #### [facility] [address] [place], [address] WBC (Bld) [#/Vol] 7.8 10*3/uL Normal 4.4-11.0 [facility] Comment on above: Performed By: #### L 500.2500, L100.0500 #### [facility] [address] [place], [address] Carbon dioxide, total [Moles /volume] in Central venous bloodOrdered By: Teena Jacques on 01-27-2025 CO2 [Moles/Vol] 26.5 mmol/L 21.0-32.0 [facility] Chloride assayOrdered By: Nathanael Jacques on 01-27-2025 Chloride [Moles/Vol] 101 mmol/L 98-108 [facility] Erythrocyte distribution wid th ratioOrdered By: Teena Jacques on 01-27-2025 Erythrocyte distribution width (RBC) [Ratio] 13.1 % 11.6-14.6 [facility] Erythrocyte distribution wid th standard deviationOrdered By: Teena Jacques on 01-27-2025 Erythrocyte distribution width (RBC) [Entitic vol] 42.5 fL 35.1-43.9 [facility] Erythrocyte distribution width (RBC) [Ratio] 42.5 fl 35.1-43.9 [facility] GFR/1.73 sq M.predicted xander g non-blacks MDRD (S/P/Bld) [Vol rate/Area]Ordered By: Teena Jacques on 01-27-2025 Estimated GFR (MDRD) Non-Af Amer 89 >60 [facility] Comment on above: mL/min/1.73m2 CKD-EP I Creatinine Equation (2020) Glomerular filtration rate ( GFR) estimation/1.73 sq m using serum, plasma, or whole bOrdered By: Teena Jacques on 01-27-2025 GFR/1.73 sq M.predicted among non-blacks MDRD (S/P/Bld) [Vol rate/Area] 89 mL/min/{1.73_m2} >60 [facility] Comment on above: mL/min/1.73m2 CKD-EP I Creatinine Equation (2020) Hematocrit Auto (Bld) [Volum e fraction]Ordered By: Teena Jacques on 01-27-2025 Hematocrit (Bld) [Volume fraction] 45.1 % 40-54 [facility] Hemoglobin measurementOrdere d By: Teena Jacques on 01-27-2025 Hemoglobin (Bld) [Mass/Vol] 15.1 g/dL 13.0-16.5 [facility] MCV (mean corpuscular volume ) determinationOrdered By: Teena Jacques 01-27-2025 MCV (RBC) [Entitic vol] 89.7 fL 80-94 [facility] MR/BMSChristineBVLenny 01-27-2025 MR/BMS.BVS [facility] [address] [place] [address] OFFICE VISIT Date of Service: 01/27/25 MR#: [id number] Acct: [id number] Name: DELTA CHEEK Rep #: [id number] : 1975 Provider: JORGE A Schmitt Age/Sex: 49/M Location: [facility] Status: Signed Intake Vital Signs [...] No numbn (more content not included)... Normal [facility] Mean corpuscular hemoglobin (MCH) determinationOrdered By: Teena Jacques on 01-27-2025 MCH (RBC) [Entitic mass] 30.0 pg 27.0-32.0 [facility] Mean corpuscular hemoglobin concentration (MCHC) determinationOrdered By: Teena Jacques on 01-27-2025 MCHC (RBC) [Mass/Vol] 33.5 g/dL 32-36 [facility] Mean platelet volume determi nationOrdered By: Teena Jacques on 01-27-2025 Platelet mean volume (Bld) [Entitic vol] 9.3 fL 6.2-12.0 [facility] Platelet countOrdered By: Nathanael Jacques on 01-27-2025 Platelets (Bld) [#/Vol] 328 10*3/uL 150-450 [facility] Potassium (Unsp spec) [Mass/ Vol]Ordered By: Teena Jacques on 01-27-2025 Potassium [Moles/Vol] 4.1 mmol/L 3.3-5.1 [facility] Comment on above: Hemolysis present, R esults could be affected. Potassium measurement (mass/ volume)Ordered By: Teena Jacques on 01-27-2025 Potassium (Unsp spec) [Mass/Vol] 4.1 mmol/L 3.3-5.1 [facility] Comment on above: Hemolysis present, R esults could be affected. RBC Auto (Bld) [#/Vol]Ordere d By: Teena Jacques on 01-27-2025 RBC (Bld) [#/Vol] 5.03 10*6/uL 4.6-6.2 [facility] Serum creatinine measurement (mass/volume)Ordered By: Teena Jacques on 01-27-2025 Creatinine [Mass/Vol] 1.02 mg/dL 0.70-1.20 [facility] Serum glucose measurement (m ass/volume)Ordered By: Teena Jacques on 01-27-2025 Glucose [Mass/Vol] 106 mg/dL High 70-99 [facility] Serum or plasma calcium rosangela urement (mass/volume)Ordered By: Teena Jacques on 01-27-2025 Calcium [Mass/Vol] 9.6 mg/dL 7.6-11.0 [facility] Serum or plasma urea nitroge n measurement (mass/volume)Ordered By: Teena Jacques on 01-27-2025 Urea nitrogen [Mass/Vol] 19 mg/dL 4-19 [facility] Sodium levelOrdered By: Stan Jacques on 01-27-2025 Sodium [Moles/Vol] 137 mmol/L 133-145 [facility] White blood cell (WBC) count Ordered By: Teena Jacques on 01-27-2025 WBC (Bld) [#/Vol] 7.8 10*3/uL 4.4-11.0 [facility] Absolute lymphocyte countOrd ered By: Bryn Mccall on 01-20-2025 Lymphocytes Auto (Unsp spec) [#/Vol] 1.08 10*3/uL 0.83-4.51 [facility] Absolute neutrophil countOrd ered By: Bryn Mccall on 01-20-2025 Neutrophils (Bld) [#/Vol] 9.0 10*3/uL High 2.0-7.7 [facility] Activated partial thrombopla stin time (aPTT) in platelet poor plasma by coagulation aOrdered By: Bryn Mccall on 01-20-2025 aPTT Coag (PPP) [Time] 35.8 s 24.1-36.2 [facility] Anion gap in Serum or Plasma Ordered By: Bryn Mccall on 01-20-2025 Anion gap [Moles/Vol] 10 mmol/L 5-15 [facility] Automated lymphocyte count a s percentage of total leukocytesOrdered By: Bryn Mccall on 01-20-2025 Lymphocytes/100 WBC Auto (Unsp spec) 9.9 % Low 19-41 [facility] BUN/creatinine ratioOrdered By: Bryn Mccall on 01-20-2025 Urea nitrogen/Creatinine [Mass ratio] 16.7 mg/mg 10- [facility] Basic Metabolic Profile (BMP )on 01-20-2025 BUN/CRE 16.7 RATIO Normal - [facility] Comment on above: Performed By: #### L 500.2500, L100.0500 #### [facility] [address] [place], [address] Calcium [Mass/Vol] 8.5 mg/dL Normal 7.6-11.0 [facility] Comment on above: Performed By: #### L 500.2500, L100.0500 #### [facility] [address] [place], [address] Chloride [Moles/Vol] 103 mmol/L Normal 98-108 [facility] Comment on above: Performed By: #### L 500.2500, L100.0500 #### [facility] [address] [place], [address] CO2 [Moles/Vol] 22.5 mmol/L Normal 21.0-32.0 [facility] Comment on above: Performed By: #### L 500.2500, L100.0500 #### [facility] [address] [place], [address] Creatinine [Mass/Vol] 0.95 mg/dL Normal 0.70-1.20 [facility] Comment on above: Performed By: #### L 500.2500, L100.0500 #### [facility] [address] [place], [address] ECRCL 124.37 ml/min Normal 50-250 [facility] Comment on above: Performed By: #### L 500.2500, L100.0500 #### [facility] [address] [place], [address] GAP 10 Normal 5-15 [facility] Comment on above: Performed By: #### L 500.2500, L100.0500 #### [facility] [address] [place], [address] GFR/1.73 sq M.predicted among non-blacks MDRD (S/P/Bld) [Vol rate/Area] 97 mL/min/{1.73_m2} Normal >60 [facility] Comment on above: Result Comment: mL/m in/1.73m2 CKD-EPI Creatinine Equation (2020) Performed By: #### L 500.2500, L100.0500 #### [facility] [address] [place], [address] Glucose [Mass/Vol] 115 mg/dL High 70-99 [facility] Comment on above: Performed By: #### L 500.2500, L100.0500 #### [facility] [address] [place], [address] Potassium [Moles/Vol] 3.7 mmol/L Normal 3.3-5.1 [facility] Comment on above: Performed By: #### L 500.2500, L100.0500 #### [facility] [address] [place], [address] Sodium [Moles/Vol] 135 mmol/L Normal 133-145 [facility] Comment on above: Performed By: #### L 500.2500, L100.0500 #### [facility] [address] [place], [address] Urea nitrogen [Mass/Vol] 16 mg/dL Normal 4-19 [facility] Comment on above: Performed By: #### L 500.2500, L100.0500 #### [facility] [address] [place], [address] Basophil percentageOrdered B y: Bryn Mccall on 01-20-2025 Basophils/100 WBC (Bld) 0.2 % 0-1 [facility] CBC W/Diff, Automatedon 01-10 Absolute Lymph 1.08 X10 3/uL Normal 0.83-4.51 [facility] Comment on above: Performed By: #### L 500.2500, L100.0500 #### [facility] [address] [place], [address] Absolute Neut 9.0 X10 3/uL High 2.0-7.7 [facility] Comment on above: Performed By: #### L 500.2500, L100.0500 #### [facility] [address] [place], [address] Basophils/100 WBC (Bld) 0.2 % Normal 0-1 [facility] Comment on above: Performed By: #### L 500.2500, L100.0500 #### [facility] [address] [place], [address] Eosinophils/100 WBC (Bld) 0.0 % Normal 0-5 [facility] Comment on above: Performed By: #### L 500.2500, L100.0500 #### [facility] [address] [place], [address] Erythrocyte distribution width (RBC) [Ratio] 12.7 % Normal 11.6-14.6 [facility] Comment on above: Performed By: #### L 500.2500, L100.0500 #### [facility] [address] [place], [address] Hematocrit (Bld) [Volume fraction] 35.5 % Low 40-54 [facility] Comment on above: Performed By: #### L 500.2500, L100.0500 #### [facility] [address] [place], [address] Hemoglobin (Bld) [Mass/Vol] 11.9 g/dL Low 13.0-16.5 [facility] Comment on above: Performed By: #### L 500.2500, L100.0500 #### [facility] [address] [place], [address] IG% 0.500 Normal 0.0-0.9 [facility] Comment on above: Result Comment: IG% - Immature Granulocytes (promyelocytes, myelocytes and metamyelocytes) > 1% indicates that a LEFT SHIFT is Present. Performed By: #### L 500.2500, L100.0500 #### [facility] [address] [place], [address] Lymphocytes/100 WBC (Bld) 9.9 % Low 19-41 [facility] Comment on above: Performed By: #### L 500.2500, L100.0500 #### [facility] [address] [place], [address] MCH (RBC) [Entitic mass] 29.8 pg Normal 27.0-32.0 [facility] Comment on above: Performed By: #### L 500.2500, L100.0500 #### [facility] [address] [place], [address] MCHC (RBC) [Mass/Vol] 33.5 g/dL Normal 32-36 [facility] Comment on above: Performed By: #### L 500.2500, L100.0500 #### [facility] [address] [place], [address] MCV (RBC) [Entitic vol] 89.0 fL Normal 80-94 [facility] Comment on above: Performed By: #### L 500.2500, L100.0500 #### [facility] [address] [place], [address] Monocytes/100 WBC (Bld) 7.2 % Normal 0-10 [facility] Comment on above: Performed By: #### L 500.2500, L100.0500 #### [facility] [address] [place], [address] Neutrophils/100 WBC (Bld) 82.2 % High 47-70 [facility] Comment on above: Performed By: #### L 500.2500, L100.0500 #### [facility] [address] [place], [address] Nucleated RBC (Bld) [#/Vol] 0 10*3/uL Normal 0-5 [facility] Comment on above: Performed By: #### L 500.2500, L100.0500 #### [facility] [address] [place], [address] Platelet mean volume (Bld) [Entitic vol] 8.9 fL Normal 6.2-12.0 [facility] Comment on above: Performed By: #### L 500.2500, L100.0500 #### [facility] [address] [place], [address] Platelets (Bld) [#/Vol] 172 10*3/uL Normal 150-450 [facility] Comment on above: Performed By: #### L 500.2500, L100.0500 #### [facility] [address] [place], [address] RBC (Bld) [#/Vol] 3.99 10*6/uL Low 4.6-6.2 [facility] Comment on above: Performed By: #### L 500.2500, L100.0500 #### [facility] [address] [place], [address] RDW SD 41.7 fl Normal 35.1-43.9 [facility] Comment on above: Performed By: #### L 500.2500, L100.0500 #### [facility] [address] [place], [place], [address] WBC (Bld) [#/Vol] 10.9 10*3/uL Normal 4.4-11.0 [facility] Comment on above: Performed By: #### L 500.2500, L100.0500 #### [facility] [address] [facility] [place], [address] Carbon dioxide, total [Moles /volume] in Central venous bloodOrdered By: Bryn Mccall on 01-20-2025 CO2 [Moles/Vol] 22.5 mmol/L 21.0-32.0 [facility] Chloride assayOrdered By: Bonifacio Mccall on 01-20-2025 Chloride [Moles/Vol] 103 mmol/L 98-108 [facility] Eosinophil percentageOrdered By: Bryn Mccall on 01-20-2025 Eosinophils/100 WBC (Bld) 0.0 % 0-5 [facility] Erythrocyte distribution wid th ratioOrdered By: Bryn Mccall on 01-20-2025 Erythrocyte distribution width (RBC) [Ratio] 12.7 % 11.6-14.6 [facility] Erythrocyte distribution wid th standard deviationOrdered By: Bryn Mccall on 01-20-2025 Erythrocyte distribution width (RBC) [Entitic vol] 41.7 fL 35.1-43.9 [facility] Erythrocyte distribution width (RBC) [Ratio] 41.7 fl 35.1-43.9 [facility] Estimation of creatinine obed aranceOrdered By: Bryn Mccall on 01-20-2025 Estimated Creatinine Clearance Calc 124.37 ml/min 50-250 [facility] GFR/1.73 sq M.predicted xander g non-blacks MDRD (S/P/Bld) [Vol rate/Area]Ordered By: Bryn Mccall on 01-20-2025 Estimated GFR (MDRD) Non-Af Amer 97 >60 [facility] Comment on above: mL/min/1.73m2 CKD-EP I Creatinine Equation (2020) Glomerular filtration rate ( GFR) estimation/1.73 sq m using serum, plasma, or whole bOrdered By: Bryn Mccall on 01-20-2025 GFR/1.73 sq M.predicted among non-blacks MDRD (S/P/Bld) [Vol rate/Area] 97 mL/min/{1.73_m2} >60 [facility] Comment on above: mL/min/1.73m2 CKD-EP I Creatinine Equation (2020) Hematocrit Auto (Bld) [Volum e fraction]Ordered By: Bryn Mccall on 01-20-2025 Hematocrit (Bld) [Volume fraction] 35.5 % Low 40-54 [facility] Hemoglobin measurementOrdere d By: Bryn Mccall on 01-20-2025 Hemoglobin (Bld) [Mass/Vol] 11.9 g/dL Low 13.0-16.5 [facility] Immature granulocytes/100 WB C Auto (Bld)Ordered By: Bryn Mccall on 01-20-2025 Immature granulocytes/100 WBC (Bld) 0.500 % 0.0-0.9 [facility] Comment on above: IG% - Immature Granu locytes (promyelocytes, myelocytes and metamyelocytes) > 1% indicates that a LEFT SHIFT is Present. Lymphocytes Auto (Unsp spec) [#/Vol]Ordered By: Bryn Mccall on 01-20-2025 Lymphocytes (Bld) [#/Vol] 1.08 10*3/uL 0.83-4.51 [facility] Lymphocytes/100 WBC Auto (Un sp spec)Ordered By: Bryn Mccall on 01-20-2025 Lymphocytes/100 WBC (Bld) 9.9 % Low 19-41 [facility] MCV (mean corpuscular volume ) determinationOrdered By: Bryn Mccall on 01-20-2025 MCV (RBC) [Entitic vol] 89.0 fL 80-94 [facility] Mean corpuscular hemoglobin (MCH) determinationOrdered By: Bryn Mccall on 01-20-2025 MCH (RBC) [Entitic mass] 29.8 pg 27.0-32.0 [facility] Mean corpuscular hemoglobin concentration (MCHC) determinationOrdered By: Bryn Mccall on 01-20-2025 MCHC (RBC) [Mass/Vol] 33.5 g/dL 32-36 [facility] Mean platelet volume determi nationOrdered By: Bryn Mccall on 01-20-2025 Platelet mean volume (Bld) [Entitic vol] 8.9 fL 6.2-12.0 [facility] Monocyte percentageOrdered B y: Bryn Mccall on 01-20-2025 Monocytes/100 WBC (Bld) 7.2 % 0-10 [facility] Neutrophil percentageOrdered By: Bryn Mccall on 01-20-2025 Neutrophils/100 WBC (Bld) 82.2 % High 47-70 [facility] Nucleated red blood cell per centageOrdered By: Bryn Mccall on 01-20-2025 Nucleated RBC/100 WBC (Bld) [Ratio] 0 % 0-5 [facility] Partial Thromboplast Timeon 01-20-2025 aPTT Coag (Bld) [Time] 35.8 s Normal 24.1-36.2 [facility] Comment on above: Performed By: #### L 500.2500, L100.0500 #### [facility] [address] [place], [address] aPTT Coag (Bld) [Time] 33.8 s Normal 24.1-36.2 [facility] Comment on above: Performed By: #### L 500.2500, L100.0500 #### [facility] [address] [facility] [place], [address] Platelet countOrdered By: Bonifacio Mccall on 01-20-2025 Platelets (Bld) [#/Vol] 172 10*3/uL 150-450 [facility] Potassium (Unsp spec) [Mass/ Vol]Ordered By: Bryn Mccall on 01-20-2025 Potassium [Moles/Vol] 3.7 mmol/L 3.3-5.1 [facility] Potassium measurement (mass/ volume)Ordered By: Bryn Mccall on 01-20-2025 Potassium (Unsp spec) [Mass/Vol] 3.7 mmol/L 3.3-5.1 [facility] RBC Auto (Bld) [#/Vol]Ordere d By: Bryn Mccall on 01-20-2025 RBC (Bld) [#/Vol] 3.99 10*6/uL Low 4.6-6.2 [facility] Serum creatinine measurement (mass/volume)Ordered By: Bryn Mccall on 01-20-2025 Creatinine [Mass/Vol] 0.95 mg/dL 0.70-1.20 [facility] Serum glucose measurement (m ass/volume)Ordered By: Bryn Mccall on 01-20-2025 Glucose [Mass/Vol] 115 mg/dL High 70-99 [facility] Serum or plasma calcium rosangela urement (mass/volume)Ordered By: Bryn Mccall on 01-20-2025 Calcium [Mass/Vol] 8.5 mg/dL 7.6-11.0 [facility] Serum or plasma urea nitroge n measurement (mass/volume)Ordered By: Bryn Mccall on 01-20-2025 Urea nitrogen [Mass/Vol] 16 mg/dL 4-19 [facility] Sodium levelOrdered By: Bryn Mccall on 01-20-2025 Sodium [Moles/Vol] 135 mmol/L 133-145 [facility] White blood cell (WBC) count Ordered By: Bryn Mccall on 01-20-2025 WBC (Bld) [#/Vol] 10.9 10*3/uL 4.4-11.0 [facility] aPTT Coag (PPP) [Time]Ordere d By: Bryn Mccall on 01-20-2025 aPTT Coag (Bld) [Time] 35.8 s 24.1-36.2 [facility] ACT Activated Clotting Timeo n 01-19-2025 ACTk CLOT TIME 181 sec [facility] 74-137 [facility] Comment on above: Performed By: #### L 9100.0100 #### [facility] [address] [place], [place], [id number] ACTk CLOT TIME 222 sec High 74-137 [facility] Comment on above: Performed By: #### L 500.2500, L100.0500 #### [facility] [address] [place], [place], [address] ACTk CLOT TIME 199 sec High 74-137 [facility] Comment on above: Performed By: #### L 500.2500, L100.0500 #### [facility] [address] [place], [address] ACTk CLOT TIME 187 sec High 74-137 [facility] Comment on above: Performed By: #### L 500.2500, L100.0500 #### [facility] [address] [place], [address] Activated clotting timeOrder ed By: Bryn Mccall on 01-19-2025 Activated Clotting Time 222 sec High 74-137 [facility] Basic Metabolic Profile (BMP )on 01-19-2025 BUN/CRE 21.6 RATIO High 10-20 [facility] Comment on above: Performed By: #### L 500.2500, L100.0500 #### [facility] Laboratory [address] [place], [address] Calcium [Mass/Vol] 9.3 mg/dL Normal 7.6-11.0 [facility] Comment on above: Performed By: #### L 500.2500, L100.0500 #### [facility] Laboratory [address] [place], [address] Chloride [Moles/Vol] 104 mmol/L Normal 98-108 [facility] Comment on above: Performed By: #### L 500.2500, L100.0500 #### [facility] Laboratory [address] [place], [address] CO2 [Moles/Vol] 25.2 mmol/L Normal 21.0-32.0 [facility] Comment on above: Performed By: #### L 500.2500, L100.0500 #### [facility] Laboratory [address] [place], [address] Creatinine [Mass/Vol] 1.09 mg/dL Normal 0.70-1.20 [facility] Comment on above: Performed By: #### L 500.2500, L100.0500 #### [facility] Laboratory [address] [place], [address] GAP 12 Normal 5-15 [facility] Comment on above: Performed By: #### L 500.2500, L100.0500 #### [facility] Laboratory [address] [place], [address] GFR/1.73 sq M.predicted among non-blacks MDRD (S/P/Bld) [Vol rate/Area] 82 mL/min/{1.73_m2} Normal >60 [facility] Comment on above: Result Comment: mL/m in/1.73m2 CKD-EPI Creatinine Equation (2020) Performed By: #### L 500.2500, L100.0500 #### [facility] Laboratory [address] [place], [address] Glucose [Mass/Vol] 103 mg/dL High 70-99 [facility] Comment on above: Performed By: #### L 500.2500, L100.0500 #### [facility] Laboratory [address] [place], [address] Potassium [Moles/Vol] 3.8 mmol/L Normal 3.3-5.1 [facility] Comment on above: Performed By: #### L 500.2500, L100.0500 #### [facility] Laboratory [address] [place], [address] Sodium [Moles/Vol] 141 mmol/L Normal 133-145 [facility] Comment on above: Performed By: #### L 500.2500, L100.0500 #### [facility] Laboratory [address] [place], [address] Urea nitrogen [Mass/Vol] 24 mg/dL High 4-19 [facility] Comment on above: Performed By: #### L 500.2500, L100.0500 #### [facility] Laboratory [address] [place], [address] CBC-Complete Blood Cnt No Meenu friedman 01-19-2025 Erythrocyte distribution width (RBC) [Ratio] 12.7 % Normal 11.6-14.6 [facility] Comment on above: Performed By: #### L 500.2500, L100.0500 #### [facility] Laboratory [address] [place], [address] Hematocrit (Bld) [Volume fraction] 41.8 % Normal 40-54 [facility] Comment on above: Performed By: #### L 500.2500, L100.0500 #### [facility] Laboratory [address] [place], [address] Hemoglobin (Bld) [Mass/Vol] 14.0 g/dL Normal 13.0-16.5 [facility] Comment on above: Performed By: #### L 500.2500, L100.0500 #### [facility] Laboratory [address] [place], [address] MCH (RBC) [Entitic mass] 29.5 pg Normal 27.0-32.0 [facility] Comment on above: Performed By: #### L 500.2500, L100.0500 #### [facility] Laboratory [address] [place], [address] MCHC (RBC) [Mass/Vol] 33.5 g/dL Normal 32-36 [facility] Comment on above: Performed By: #### L 500.2500, L100.0500 #### [facility] Laboratory [address] [place], [address] MCV (RBC) [Entitic vol] 88.0 fL Normal 80-94 [facility] Comment on above: Performed By: #### L 500.2500, L100.0500 #### [facility] Laboratory [address] [place], [address] Platelet mean volume (Bld) [Entitic vol] 8.9 fL Normal 6.2-12.0 [facility] Comment on above: Performed By: #### L 500.2500, L100.0500 #### [facility] Laboratory [address] [place], [address] Platelets (Bld) [#/Vol] 217 10*3/uL Normal 150-450 [facility] Comment on above: Performed By: #### L 500.2500, L100.0500 #### [facility] Laboratory [address] [place], [address] RBC (Bld) [#/Vol] 4.75 10*6/uL Normal 4.6-6.2 [facility] Comment on above: Performed By: #### L 500.2500, L100.0500 #### [facility] Laboratory [address] [place], [address] RDW SD 40.6 fl Normal 35.1-43.9 [facility] Comment on above: Performed By: #### L 500.2500, L100.0500 #### [facility] Laboratory [address] [place], [address] WBC (Bld) [#/Vol] 5.8 10*3/uL Normal 4.4-11.0 [facility] Comment on above: Performed By: #### L 500.2500, L100.0500 #### [facility] Laboratory [address] [place], [address] MR/POSTOP.ANEon 01-19-2025 MR/POSTOP.ANE [facility] Medical Records Department [address] [place] [address] Anesthesia Postop Eval I 01/19/25 1343 MR#: [id number] Acct: [id number] Name: ADIADELTA Jr. Rep #: [id number] : 1975 49 From: Marie Pennington CRNA PCP: Dr. Rogelio Colvin MD Status:REG SDC Y Race: C Location: [place] [address] Anesthesia: Postop Eval I Current Vital Signs [...] completed: Yes 01/19/25 1344 Date Marie Pennington CARDIOPULMONARY SUPERVISOR Cosigner Signature: Date CC: Signed Normal [facility] MR/EPHNQJGN2qs 01-19-2025 [facility] Medical Records Department [address] [place] [address] Anesthesia Postop Eval II 01/19/25 1517 MR#: [id number] Acct: [id number] Name: DELTA CHEEK Jr. Rep #: [id number] : 1975 49 From: Joseph Segura MD PCP: Dr. Rogelio Colvin MD Status:ADM TATUM Y Race: C Location: [place] [address] Anesthesia Postop Eval I Sum Postop Eval Completion status Anesthesia document: Postop Eval 1 completed: Yes Anesthesia Postop Eval I Summary Anesthesia Postop Eval I Summary: Anesthesia Postop Eval I: Assessment Summary Airway patent Yes 01/19/25 13:44 CARDIOPULMONARY [email or web address].LMIL Spontaneous unlabored Yes 01/19/25 13:44 CARDIOPULMONARY SUPERVISOR.LMIL respirations Mental status Awake,Calm 01/19/25 13:44 CARDIOPULMONARY SUPERVISOR.LMIL nausea No 01/19/25 13:44 CARDIOPULMONARY SUPERVISOR.LMIL Vomiting No 01/19/25 13:44 CARDIOPULMONARY SUPERVISOR.LMIL Anesthesia Postop Eval I: Fluid Summary Crystalloid volume administer 900 01/19/25 13:44 CARDIOPULMONARY SUPERVISOR.LMIL (ml) Colloids volume administered ( ml) Blood Product volume administered (ml) Total IV fluid infused 900 01/19/25 13:44 CARDIOPULMONARY SUPERVISOR.LMIL Anesthesia Postop Eval I: Summary Notes Anesthesia Complication No 01/19/25 13:44 CARDIOPULMONARY SUPERVISOR.LMIL Anesthesia Complication Comment: Post-operative progress note Anesthesia: Postop Eval II Evaluation Mental status: Awake Pain Level: 1 nausea: No Vomiting: No 01/19/25 1517 Date Joseph Miller Signature: Date CC: Signed Normal [facility] Operative Reporton 5 Operative Report [facility] Medical Records Department [address] [place] [address] Operative Report 01/19/25 1642 MR#: [id number] Acct: [id number] Name: DELTA CHEEK Jr. Rep #: [id number] : 1975 49 From: Bryn Mccall MD PCP: Dr. Rogelio Colvin MD Status:ADM [facility] Location: [place] [address] Operative Report (Standard) Operative Information Date of [...] external iliac vein, right common iliac vein tax manager cpa: No Type of Anesthesia: General RN Documented [...] patient procedure site patient was taken the Crossbar Switch Adjuster he was placed on general anesthesia. He [...] micropuncture sheath and exchanged for an 8 Filipino sheath which was advanced over the wire [...] the micropuncture sheath exchanged for short 5 Filipino sheath. The Bentson wire was exchanged for [...] to circulate for 3 minutes. The 8 Filipino sheath was then exchanged for the Inari Protrieve distal protection sheath in the filter mechanism deployed. Next a [employer] [place] 10 (more content not included)... Normal [facility] Partial Thromboplast Timeon 01-19-2025 aPTT Coag (Bld) [Time] 31.8 s Normal 24.1-36.2 [facility] Comment on above: Performed By: #### L 300.4310 ####[facility] [address] [place], [address] MR/Sujatha 01-15-2025 MR/FILEMON.BISI [facility] Medical Records Department [address] [place] [address] PAT - Anesthesia 01/15/25 1631 MR#: [id number] Acct: [id number] Name: DELTA CHEEK Jr. Rep #: [id number] : 1975 49 From: Andrew Carranza MD PCP: Dr. Rogelio Colvin MD Status:PRE [facility] Y Race: C Location: [facility] Pre-Assessment Diagnosis/Proposed Procedure Planned Operative Procedure(s): THROMBECTOMY Anesthesia History Anesthesia History - senior policy advisor: Anesthesia History - senior policy advisor Hx Hospitalization No 01/15/25 13:38 Any Problems [...] take am of surgery PONV PONV - senior policy advisor: PONV - senior policy advisor Female No 01/15/25 13:38 HX of Motion [...] 01/14/25 10:56 Respiratory Assessment Respiratory Assessment - senior policy advisor: Respiratory Tract Infection Hx - senior policy advisor Hx Respiratory Tract Infection No 01/15/25 13:38 STOP Sleep Apnea STOP Sleep Apnea - senior policy advisor: STOP Sleep Apnea - senior policy advisor Hx Hypertension Yes: CONTROLLED ON MED 01/15/25 [...] Tobacco Use History Tobacco Use History - senior policy advisor: Tobacco Use History - senior policy advisor Tobacco Use Smoking Status Former smoker 01/15/25 13:38 Hx Tobacco Use No 01/15/25 13:38 Years Smoking Packs Smoked per Day Smoking Cessation Date was Yes - quit smoking within 15 01/15/25 13:38 within the last 15 years years Hx Smoking Cessation Date Hx Smoking Cessation Counseling Hematologic Medial History Hematologic Hx - senior policy advisor: 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 Normal [facility] Anion gap in Serum or Plasma Ordered By: Bryn Mccall on 01-14-2025 Anion gap [Moles/Vol] 11 mmol/L 5-15 [facility] BUN/creatinine ratioOrdered By: Bryn Mccall on 01-14-2025 Urea nitrogen/Creatinine [Mass ratio] 11.8 mg/mg 10-20 [facility] Basic Metabolic Profile (BMP )on 01-14-2025 BUN/CRE 11.8 RATIO Normal -20 [facility] Comment on above: Performed By: #### L 500.2500, L100.0500 #### [facility] Laboratory [address] [place], [address] Calcium [Mass/Vol] 9.4 mg/dL Normal 7.6-11.0 [facility] Comment on above: Performed By: #### L 500.2500, L100.0500 #### [facility] Laboratory [address] [place], [address] Chloride [Moles/Vol] 101 mmol/L Normal 98-108 [facility] Comment on above: Performed By: #### L 500.2500, L100.0500 #### [facility] Laboratory [address] [place], [address] CO2 [Moles/Vol] 26.4 mmol/L Normal 21.0-32.0 [facility] Comment on above: Performed By: #### L 500.2500, L100.0500 #### [facility] Laboratory [address] [place], [address] Creatinine [Mass/Vol] 1.17 mg/dL Normal 0.70-1.20 [facility] Comment on above: Performed By: #### L 500.2500, L100.0500 #### [facility] Laboratory [address] [place], [address] ECRCL 100.60 ml/min Normal 50-250 [facility] Comment on above: Performed By: #### L 500.2500, L100.0500 #### [facility] Laboratory [address] [place], [address] GAP 11 Normal 5-15 [facility] Comment on above: Performed By: #### L 500.2500, L100.0500 #### [facility] Laboratory [address] [place], [address] GFR/1.73 sq M.predicted among non-blacks MDRD (S/P/Bld) [Vol rate/Area] 75 mL/min/{1.73_m2} Normal >60 [facility] Comment on above: Result Comment: mL/m in/1.73m2 CKD-EPI Creatinine Equation (2020) Performed By: #### L 500.2500, L100.0500 #### [facility] Laboratory [address] [place], [address] Glucose [Mass/Vol] 102 mg/dL High 70-99 [facility] Comment on above: Performed By: #### L 500.2500, L100.0500 #### [facility] Laboratory [address] [place], [address] Potassium [Moles/Vol] 4.1 mmol/L Normal 3.3-5.1 [facility] Comment on above: Performed By: #### L 500.2500, L100.0500 #### [facility] Laboratory [address] [place], [address] Sodium [Moles/Vol] 138 mmol/L Normal 133-145 [facility] Comment on above: Performed By: #### L 500.2500, L100.0500 #### [facility] Laboratory [address] [place], [address] Urea nitrogen [Mass/Vol] 14 mg/dL Normal 4-19 [facility] Comment on above: Performed By: #### L 500.2500, L100.0500 #### [facility] Laboratory [address] [place], [address] CBC-Complete Blood Cnt No Di ffon 01-14-2025 Erythrocyte distribution width (RBC) [Ratio] 12.9 % Normal 11.6-14.6 [facility] Comment on above: Performed By: #### L 500.2500, L100.0500 #### [facility] Laboratory [address] [place], [address] Hematocrit (Bld) [Volume fraction] 46.4 % Normal 40-54 [facility] Comment on above: Performed By: #### L 500.2500, L100.0500 #### [facility] Laboratory [address] [place], [address] Hemoglobin (Bld) [Mass/Vol] 15.3 g/dL Normal 13.0-16.5 [facility] Comment on above: Performed By: #### L 500.2500, L100.0500 #### [facility] Laboratory [address] [place], [address] MCH (RBC) [Entitic mass] 29.2 pg Normal 27.0-32.0 [facility] Comment on above: Performed By: #### L 500.2500, L100.0500 #### [facility] Laboratory [address] [place], [address] MCHC (RBC) [Mass/Vol] 33.0 g/dL Normal 32-36 [facility] Comment on above: Performed By: #### L 500.2500, L100.0500 #### [facility] Laboratory [address] [place], [address] MCV (RBC) [Entitic vol] 88.5 fL Normal 80-94 [facility] Comment on above: Performed By: #### L 500.2500, L100.0500 #### [facility] Laboratory [address] [place], [address] Platelet mean volume (Bld) [Entitic vol] 8.8 fL Normal 6.2-12.0 [facility] Comment on above: Performed By: #### L 500.2500, L100.0500 #### [facility] Laboratory [address] [place], [address] Platelets (Bld) [#/Vol] 259 10*3/uL Normal 150-450 [facility] Comment on above: Performed By: #### L 500.2500, L100.0500 #### [facility] Laboratory [address] [place], [address] RBC (Bld) [#/Vol] 5.24 10*6/uL Normal 4.6-6.2 [facility] Comment on above: Performed By: #### L 500.2500, L100.0500 #### [facility] Laboratory [address] [place], [address] RDW SD 41.6 fl Normal 35.1-43.9 [facility] Comment on above: Performed By: #### L 500.2500, L100.0500 #### [facility] Laboratory [address] [place], [address] WBC (Bld) [#/Vol] 6.2 10*3/uL Normal 4.4-11.0 [facility] Comment on above: Performed By: #### L 500.2500, L100.0500 #### [facility] Laboratory [address] [place], [address] Carbon dioxide, total [Moles /volume] in Central venous bloodOrdered By: Bryn Mccall on 01-14-2025 CO2 [Moles/Vol] 26.4 mmol/L 21.0-32.0 [facility] Chloride assayOrdered By: Bonifacio Mccall on 01-14-2025 Chloride [Moles/Vol] 101 mmol/L 98-108 [facility] Erythrocyte distribution wid th ratioOrdered By: Bryn Mccall on 01-14-2025 Erythrocyte distribution width (RBC) [Ratio] 12.9 % 11.6-14.6 [facility] Erythrocyte distribution wid th standard deviationOrdered By: Bryn Mccall on 01-14-2025 Erythrocyte distribution width (RBC) [Entitic vol] 41.6 fL 35.1-43.9 [facility] Erythrocyte distribution width (RBC) [Ratio] 41.6 fl 35.1-43.9 [facility] Estimation of creatinine obed aranceOrdered By: Bryn Mccall on 01-14-2025 Estimated Creatinine Clearance Calc 100.60 ml/min 50-250 [facility] GFR/1.73 sq M.predicted xander g non-blacks MDRD (S/P/Bld) [Vol rate/Area]Ordered By: Bryn Mccall on 01-14-2025 Estimated GFR (MDRD) Non-Af Amer 75 >60 [facility] Comment on above: mL/min/1.73m2 CKD-EP I Creatinine Equation (2020) Glomerular filtration rate ( GFR) estimation/1.73 sq m using serum, plasma, or whole bOrdered By: Bryn Mccall on 01-14-2025 GFR/1.73 sq M.predicted among non-blacks MDRD (S/P/Bld) [Vol rate/Area] 75 mL/min/{1.73_m2} >60 [facility] Comment on above: mL/min/1.73m2 CKD-EP I Creatinine Equation (2020) Hematocrit Auto (Bld) [Volum e fraction]Ordered By: Bryn Mccall on 01-14-2025 Hematocrit (Bld) [Volume fraction] 46.4 % 40-54 [facility] Hemoglobin measurementOrdere d By: Bryn Mccall on 01-14-2025 Hemoglobin (Bld) [Mass/Vol] 15.3 g/dL 13.0-16.5 [facility] MCV (mean corpuscular volume ) determinationOrdered By: Bryn Mccall on 01-14-2025 MCV (RBC) [Entitic vol] 88.5 fL 80-94 [facility] Mean corpuscular hemoglobin (MCH) determinationOrdered By: Bryn Mccall on 01-14-2025 MCH (RBC) [Entitic mass] 29.2 pg 27.0-32.0 [facility] Mean corpuscular hemoglobin concentration (MCHC) determinationOrdered By: Bryn Mccall on 01-14-2025 MCHC (RBC) [Mass/Vol] 33.0 g/dL 32-36 [facility] Mean platelet volume determi nationOrdered By: Bryn Mccall on 01-14-2025 Platelet mean volume (Bld) [Entitic vol] 8.8 fL 6.2-12.0 [facility] Operative Reporton 5 Operative Report [facility] Medical Records Department [address] [place] [address]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 [id number] Name: DELTA CHEEK Jr. Rep #: [id number] : 1975 M 49 From: Martinez dasilva MD PCP: Dr. Rogelio Colvin MD Status: REG CLI Study: Ankle min 3 Views Date of Exam: 09/18/24 Exam# [id number] Ordering Dr: Rogelio Colvin MD [id number] STUDY: X-RAY - LEFT ANKLE REASON [...] 10:26 EST Reading Location ID and State: [facility] / [place] , Service support , CC: Dr. Rogelio Colvin MD Weight Loss Sales Consultant: Signed Normal [facility] Calcaneus min 2 Viewson 11 Calcaneus min 2 Views [facility] Imaging Services [address] [place], [place] [id number] Calcaneus min 2 Views MR#: [id number] Acct: [id number] Name: DELTA CHEEK Gilberto Chan Rep #: [id number] : 1975 M 49 From: Martinez dasilva MD PCP: Dr. Rogelio Colvin MD Status: REG CLI Study: Calcaneus min 2 Views Date of Exam: 09/18/24 Exam# [id number] Ordering Dr: Rogelio Colvin MD [id number] STUDY: X-RAY - RIGHT CALCANEUS REASON FOR EXAM: Male, 49 years old. PAIN TECHNIQUE: 2 view(s) of the calcaneus were obtained. COMPARISON: None. FINDINGS: Small spur at the insertion of the Achilles tendon. RAD/Calcaneus min 2 Views IMPRESSION: Small spur at the insertion of the Achilles tendon. Electronically Signed: Martinez Russell MD at 10:16 EST Reading Location ID and State: [address] [place] [address] , Service support , CC: Dr. Rogelio Colvin MD Weight Loss Sales Consultant: Signed Normal [facility] Calcaneus min 2 Views [facility] Imaging Services [address] [place] [id number] Calcaneus min 2 Views MR#: [id number] Acct: [id number] Name: DELTA CHEEK Jr. Rep #: [id number] : 1975 M 49 From: Martinez dasilva MD PCP: Dr. Rogelio Colvin MD Status: REG CLI Study: Calcaneus min 2 Views Date of Exam: 09/18/24 Exam# [id number] Ordering Dr: Rogelio Colvin MD [id number] STUDY: X-RAY - LEFT CALCANEUS REASON [...] EST , CC: Dr. Rogelio Colvin MD Weight Loss Sales Consultant: Signed Normal [facility] Venous Duplex US - [facility] 09-18-2024 Venous Duplex US - [facility] Cardiovascular Services [address] [place] [address] Venous Duplex US - [facility] 09/18/24 1036 MR#: [id number] Acct: [id number] Name: DELTA CHEEK Jr. Rep #: [id number] : 1975 49 From: Marco Frazier MD [...] called and/or faxed to Dr. Colvin @ [phone] @ 10:35 am. VL/Venous Duplex US - [...] Date Dictated: 09/18/24 1036 Date Transcribed: 09/18/242319 Weight Loss Sales Consultant: Signed Normal [facility] Abd Aortic/IVC Duplex scanon 05-02-2024 Abd Aortic/IVC Duplex scan [facility] Cardiovascular Services [address] [place] [address] Abd Aortic/IVC Duplex scan 05/02/24 0908 MR#: [id number] Acct: [id number] Name: DELTA CHEEK Jr. Rep #: [id number] : 1975 48 From: Bryn Mccall MD Attending Dr: JORGE A Schmitt Status: REG CLI Ordering Dr: Teena Jacques Date: 05/02/24 Location: [facility] Sex: M C Admitted: Reason For Study: [...] Aorta IVC Iliac vasculature or bypass grafts [address]5820. The exam was diagnostic. Exam performed in department. 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 Ordering Physician: Teena Jacques Referring Physician: Rogelio Colvin Chi Performed By: [employer], [facility] 05/12/24 0809 Date Bryn Mccall MD CC: JORGE A Schmitt; Dr. Rogelio Colvin MD Date Dictated: 05/02/24907 Date Transcribed: 05/12/24808 Weight Loss Sales Consultant: Signed Normal [facility] CBC W/Diff, Automatedon 04-13 Absolute Lymph 1.25 X10 3/uL Normal 0.83-4.51 [facility] Comment on above: Performed By: #### L 500.2500, L100.0500 #### [facility] Laboratory [address] [place], [address] Absolute Neut 3.1 X10 3/uL Normal 2.0-7.7 [facility] Comment on above: Performed By: #### L 500.2500, L100.0500 #### [facility] Laboratory [address] [place], [address] Basophils/100 WBC (Bld) 1.0 % Normal 0-1 [facility] Comment on above: Performed By: #### L 500.2500, L100.0500 #### [facility] Laboratory [address] [place], [address] Eosinophils/100 WBC (Bld) 3.4 % Normal 0-5 [facility] Comment on above: Performed By: #### L 500.2500, L100.0500 #### [facility] Laboratory [address] [place], [address] Erythrocyte distribution width (RBC) [Ratio] 12.9 % Normal 11.6-14.6 [facility] Comment on above: Performed By: #### L 500.2500, L100.0500 #### [facility] Laboratory [address] [place], [address] Hematocrit (Bld) [Volume fraction] 42.0 % Normal 40-54 [facility] Comment on above: Performed By: #### L 500.2500, L100.0500 #### [facility] Laboratory [address] [place], [address] Hemoglobin (Bld) [Mass/Vol] 13.9 g/dL Normal 13.0-16.5 [facility] Comment on above: Performed By: #### L 500.2500, L100.0500 #### [facility] Laboratory [address] [place], [address] IG% 0.200 Normal 0.0-0.9 [facility] Comment on above: Result Comment: IG% - Immature Granulocytes (promyelocytes, myelocytes and metamyelocytes) > 1% indicates that a LEFT SHIFT is Present. Performed By: #### L 500.2500, L100.0500 #### [facility] Laboratory [address] [place], [address] Lymphocytes/100 WBC (Bld) 25.1 % Normal 19-41 [facility] Comment on above: Performed By: #### L 500.2500, L100.0500 #### [facility] Laboratory [address] [place], [address] MCH (RBC) [Entitic mass] 29.0 pg Normal 27.0-32.0 [facility] Comment on above: Performed By: #### L 500.2500, L100.0500 #### [facility] Laboratory [address] [place], [address] MCHC (RBC) [Mass/Vol] 33.1 g/dL Normal 32-36 [facility] Comment on above: Performed By: #### L 500.2500, L100.0500 #### [facility] Laboratory [address] [place], [address] MCV (RBC) [Entitic vol] 87.7 fL Normal 80-94 [facility] Comment on above: Performed By: #### L 500.2500, L100.0500 #### [facility] Laboratory [address] [place], [address] Monocytes/100 WBC (Bld) 7.4 % Normal 0-10 [facility] Comment on above: Performed By: #### L 500.2500, L100.0500 #### [facility] Laboratory [address] [place], [address] Neutrophils/100 WBC (Bld) 62.9 % Normal 47-70 [facility] Comment on above: Performed By: #### L 500.2500, L100.0500 #### [facility] Laboratory [address] [place], [address] Nucleated RBC (Bld) [#/Vol] 0 10*3/uL Normal 0-5 [facility] Comment on above: Performed By: #### L 500.2500, L100.0500 #### [facility] Laboratory [address] [place], [address] Platelet mean volume (Bld) [Entitic vol] 9.5 fL Normal 6.2-12.0 [facility] Comment on above: Performed By: #### L 500.2500, L100.0500 #### [facility] Laboratory [address] [place], [address] Platelets (Bld) [#/Vol] 249 10*3/uL Normal 150-450 [facility] Comment on above: Performed By: #### L 500.2500, L100.0500 #### [facility] Laboratory [address] [place], [address] RBC (Bld) [#/Vol] 4.79 10*6/uL Normal 4.6-6.2 [facility] Comment on above: Performed By: #### L 500.2500, L100.0500 #### [facility] Laboratory [address] [place], [address] RDW SD 41.1 fl Normal 35.1-43.9 [facility] Comment on above: Performed By: #### L 500.2500, L100.0500 #### [facility] Laboratory [address] [place], [address] WBC (Bld) [#/Vol] 5.0 10*3/uL Normal 4.4-11.0 [facility] Comment on above: Performed By: #### L 500.2500, L100.0500 #### [facility] Laboratory [address] [place], [address] Comprehensive Metabolic Prof ilon 05-02-2024 Albumin [Mass/Vol] 3.7 g/dL Normal 3.2-5.0 [facility] Comment on above: Performed By: #### L 500.2500, L100.0500 #### [facility] Laboratory [address] [place], [address] Albumin/Globulin [Mass ratio] 1.1 {ratio} Normal 0.9-2.4 [facility] Comment on above: Performed By: #### L 500.2500, L100.0500 #### [facility] Laboratory [address] [place], [address] ALK P 83 U/L Normal 45-117 [facility] Comment on above: Performed By: #### L 500.2500, L100.0500 #### [facility] Laboratory [address] [place], [address] ALT [Catalytic activity/Vol] 24 U/L Normal 16-61 [facility] Comment on above: Performed By: #### L 500.2500, L100.0500 #### [facility] Laboratory [address] [place], [address] AST [Catalytic activity/Vol] 15 U/L Normal 15-37 [facility] Comment on above: Result Comment: Mode rate Hemolysis, Result may be falsely increased. Performed By: #### L 500.2500, L100.0500 #### [facility] Laboratory [address] [place], [address] Bilirubin [Mass/Vol] 0.40 mg/dL Normal 0.20-1.00 [facility] Comment on above: Result Comment: For patients on eltrombopag therapy, use of Dimension [place] TBIL is not recommended. Performed By: #### L 500.2500, L100.0500 #### [facility] Laboratory [address] [place], [address] BUN/CRE 26.5 RATIO High 10-20 [facility] Comment on above: Performed By: #### L 500.2500, L100.0500 #### [facility] Laboratory [address] [place], [address] CA,Total 8.7 mg/dL Normal 8.5-10.1 [facility] Comment on above: Performed By: #### L 500.2500, L100.0500 #### [facility] Laboratory [address] [place], [address] Chloride [Moles/Vol] 110 mmol/L High 98-107 [facility] Comment on above: Performed By: #### L 500.2500, L100.0500 #### [facility] Laboratory [address] [place], [address] CO2 [Moles/Vol] 23.0 mmol/L Normal 21.0-32.0 [facility] Comment on above: Performed By: #### L 500.2500, L100.0500 #### [facility] Laboratory [address] [place], [address] Creatinine [Mass/Vol] 0.91 mg/dL Normal 0.70-1.30 [facility] Comment on above: Result Comment: The validity of the calculated GFR GFRAA in patients over 70 years has not been determined. Clinical correlation is essential. Performed By: #### L 500.2500, L100.0500 #### [facility] Laboratory [address] [place], [address] EST GFR - AA 114 mL/min Normal >60 [facility] Comment on above: Result Comment: Afri can Lebanese GFR Calc Performed By: #### L 500.2500, L100.0500 #### [facility] Laboratory [address] [place], [address] GAP 7 Normal 5-15 [facility] Comment on above: Performed By: #### L 500.2500, L100.0500 #### [facility] Laboratory [address] [place], [address] GFR/1.73 sq M.predicted among non-blacks MDRD (S/P/Bld) [Vol rate/Area] 94 mL/min/{1.73_m2} Normal >60 [facility] Comment on above: Result Comment: Non- GFR Calc Performed By: #### L 500.2500, L100.0500 #### [facility] Laboratory [address] [place], [address] Globulin (S) [Mass/Vol] 3.4 g/dL Normal 2.2-4.2 [facility] Comment on above: Performed By: #### L 500.2500, L100.0500 #### [facility] Laboratory [address] [place], [address] Glucose [Mass/Vol] 108 mg/dL High 74-106 [facility] Comment on above: Result Comment: Fast ing Glucose result from 100 to 125 mg/dL suggests IMPAIRED HOMEOSTASIS per A.D.A. criteria. Performed By: #### L 500.2500, L100.0500 #### [facility] Laboratory [address] [place], [address] Potassium [Moles/Vol] 4.1 mmol/L Normal 3.5-5.1 [facility] Comment on above: Result Comment: Mode rate Hemolysis, Result may be falsely increased. Performed By: #### L 500.2500, L100.0500 #### [facility] Laboratory [address] [place], [address] Sodium [Moles/Vol] 140 mmol/L Normal 136-145 [facility] Comment on above: Performed By: #### L 500.2500, L100.0500 #### [facility] Laboratory [address] [place], [address] T PROT 7.1 g/dL Normal 6.4-8.2 [facility] Comment on above: Performed By: #### L 500.2500, L100.0500 #### [facility] Laboratory [address] [place], [address] Urea nitrogen [Mass/Vol] 24 mg/dL High 7-18 [facility] Comment on above: Performed By: #### L 500.2500, L100.0500 #### [facility] Laboratory [address] [place], [address] Lipid Profileon 05-02-2024 Cholesterol [Mass/Vol] 196 mg/dL Normal 200 [facility] Comment on above: Result Comment: <200 mg/dL Desirable 200-240 mg/dL Borderline >240 mg/dL High Risk Performed By: #### L 500.2500, L100.0500 #### [facility] Laboratory [address] [place], [address] Cholesterol in HDL [Mass/Vol] 28 mg/dL Low [facility] Comment on above: Result Comment: The drugs N-Acetylcysteine and Metamizole may falsely depress this assay. Reference Range HDL <40 mg/dL Low HDL Cholesterol HDL >or= 60 mg/dL High HDL Cholesterol Performed By: #### L 500.2500, L100.0500 #### [facility] Laboratory [address] [place], [address] LDL TNP Normal 0-130 [facility] Comment on above: Performed By: #### L 500.2500, L100.0500 #### [facility] Laboratory [address] [place], [address] Triglyceride [Mass/Vol] 511 mg/dL High [facility] Comment on above: Result Comment: The drugs N-Acetylcysteine and Metamizole may falsely depress this assay. TRIGLYCERIDE IS GREATER THAN 400 mg/dL. LDL RESULT IS INVALID AND WILL NOT BE REPORTED. Serum Triglycerides Reference Interval Normal <150 mg/dL Borderline high 150 - 199 mg/dL High 200 - 499 mg/dL Very High > or = 500 mg/dL Performed By: #### L 500.2500, L100.0500 #### [facility] Laboratory [address] [place], [address] VLDL TNP Normal 5-40 [facility] Comment on above: Performed By: #### L 500.2500, L100.0500 #### [facility] Laboratory [address] [place], [address] Thyroid Stim Hormone (TSH)on 05-02-2024 TSH 1.83 uIU/mL Normal 0.358-3.74 [facility] Comment on above: Performed By: #### L 500.2500, L100.0500 #### [facility] Laboratory [address] [place], [address] Venous Duplex US - [place] Extre mon 05-02-2024 Venous Duplex US - [place] Extrem [facility] Cardiovascular Services [address] [place] [address] Venous Duplex US - [place] Extrem 05/02/2428 MR#: [id number] Acct: [id number] Name: ADIADELTA Gilberto Chan Rep #: [id number] : 1975 48 From: Bryn Mccall MD [...] Rogelio Colvin Chi Performed By: [employer], [facility] 05/12/24811 Date Bryn Mccall MD CC: JORGE A Schmitt; Dr. Rogelio Colvin MD Date Dictated: 05/02/24927 Date Transcribed: 05/12/24811 Weight Loss Sales Consultant: Signed Normal [facility] Emergency Department Summary on 04-29-2024 Emergency Department Summary [facility] Medical Records Department [address] [place] [address] Emergency Department Summary 04/29/24 MR#: [id number] Acct: [id number] Name: DELTA CHEEK Jr. Rep #: [id number] : 1975 48 From: Dimas Gill MD [...] and Local Irrigated (ml): 100 Number of Sutures/[place]: 5 Suture Information: Ethilon, Horizontal, Mattress and [...] - 10-14 Days suture removal Print Language: Palestinian Disposition Disposition: Home, Self Care What to do if you have Problems Fo (more content not included)... Normal [facility] Tibia Fibula 2 Viewson 04-12 Tibia Fibula 2 Views [facility] Imaging Services [address] [place], [place] [address] Tibia Fibula 2 Views MR#: [id number] Acct: [id number] Name: DELTA CHEEK JrChristine Rep #: [id number] : 1975 M 48 From: Celestino Grant DO PCP: Dr. Rogelio Colvin MD Status: REG ER Study: Tibia Fibula 2 Views Date of Exam: 04/29/24 Exam# [id number] Ordering Dr: Dimas Gill MD [id number] INDICATION: chainsaw vs. leg EXAMINATION/TECHNI QUE: [...] Dimas Gill MD; Dr. Rogelio Colvin MD Weight Loss Sales Consultant: Signed Normal [facility] Basophil percentageOrdered B y: Teena Renteriahn on 10-16-2023 Chloride [Moles/Vol] 106 mmol/L 98-107 [facility] Glucose [Mass/Vol] 104 mg/dL 74-106 [facility] Comment on above: Fasting Glucose resu lt from 100 to 125 mg/dL suggests IMPAIRED HOMEOSTASIS per A.D.A. criteria. Potassium [Moles/Vol] 4.0 mmol/L 3.5-5.1 [facility] Comment on above: Moderate Hemolysis, Result may be falsely increased. Sodium [Moles/Vol] 138 mmol/L 136-145 [facility] Blood hemoglobin measurement (mass/volume)Ordered By: Teena Jacques on 10-16-2023 Hemoglobin (Bld) [Mass/Vol] 15.0 g/dL 13.0-16.5 [facility] Laboratory - Chemistry and C hemistry - challengeOrdered By: Teena Jacques on 10-16-2023 CO2 [Moles/Vol] 30.0 mmol/L 21.0-32.0 [facility] Urea nitrogen/Creatinine [Mass ratio] 16.7 mg/mg 10-20 [facility] No Panel InformationOrdered By: Teena Jacques on 10-16-2023 Estimated GFR (MDRD) Amer 93 mL/min >60 [facility] Comment on above: GFR Calc Estimated GFR (MDRD) Non-Af Amer 77 mL/min >60 [facility] Comment on above: Non- GFR Calc Serum or plasma calcium rosangela urement (mass/volume)Ordered By: Teena Jacques on 10-16-2023 Calcium [Mass/Vol] 9.1 mg/dL 8.5-10.1 [facility] Serum or plasma creatinine m easurement (mass/volume)Ordered By: Teena Jacques on 10-16-2023 Creatinine [Mass/Vol] 1.08 mg/dL 0.70-1.30 [facility] Comment on above: The validity of the calculated GFR & GFRAA in patients over 70 years has not been determined. Clinical correlation is essential. Serum or plasma urea nitroge n measurement (mass/volume)Ordered By: Teena Jacques on 10-16-2023 Urea nitrogen [Mass/Vol] 18 mg/dL 7-18 [facility] Thin prep Papanicolaou smear with manual screeningOrdered By: Teena Jacques on 10-16-2023 Thin prep Papanicolaou smear with manual screening 2 5-15 [facility] Absolute lymphocyte countOrd ered By: Dr. Colvin on 05-02-2023 Lymphocytes Auto (Unsp spec) [#/Vol] 1.29 10*3/uL 0.83-4.51 [facility] Basophil percentageOrdered B y: Dr. Colvin on 05-02-2023 Basophils/100 WBC (Bld) 1.3 % 0-1 [facility] Bilirubin [Mass/Vol] 0.40 mg/dL 0.20-1.00 [facility] Comment on above: For patients on eltr ombopag therapy, use of Dimension [place] TBIL is not recommended. Chloride [Moles/Vol] 106 mmol/L 98-107 [facility] Eosinophils/100 WBC (Bld) 1.8 % 0-5 [facility] Glucose [Mass/Vol] 90 mg/dL 74-106 [facility] Neutrophils (Bld) [#/Vol] 3.5 10*3/uL 2.0-7.7 [facility] Neutrophils/100 WBC (Bld) 63.1 % 47-70 [facility] Potassium [Moles/Vol] 3.9 mmol/L 3.5-5.1 [facility] Protein [Mass/Vol] 7.2 g/dL 6.4-8.2 [facility] Sodium [Moles/Vol] 138 mmol/L 136-145 [facility] WBC (Bld) [#/Vol] 5.5 10*3/uL 4.4-11.0 [facility] Blood erythrocytes count (nu mber/volume)Ordered By: Dr. Colvin on 05-02-2023 RBC (Bld) [#/Vol] 5.20 10*6/uL 4.6-6.2 [facility] Blood hemoglobin measurement (mass/volume)Ordered By: Dr. Colvin on 05-02-2023 Hemoglobin (Bld) [Mass/Vol] 15.3 g/dL 13.0-16.5 [facility] Blood lymphocytes/100 leukoc ytesOrdered By: Dr. Colvin on 05-02-2023 Lymphocytes/100 WBC (Bld) 23.5 % 19-41 [facility] Blood monocytes/100 leukocyt esOrdered By: Dr. Colivn on 05-02-2023 Monocytes/100 WBC (Bld) 9.9 % 0-10 [facility] Blood platelet mean volumeOr dered By: Dr. Colvin on 05-02-2023 Platelet mean volume (Bld) [Entitic vol] 9.0 fL 6.2-12.0 [facility] Determination of erythrocyte mean corpuscular volume (MCV)Ordered By: Dr. Colvin on 05-02-2023 MCV (RBC) [Entitic vol] 89.0 fL 80-94 [facility] Hematocrit Auto (Bld) [Volum e fraction]Ordered By: Dr. Colvin on 05-02-2023 Hematocrit (Bld) [Volume fraction] 46.3 % 40-54 [facility] Laboratory - Chemistry and C hemistry - challengeOrdered By: Dr. Colvin on 05-02-2023 ALP [Catalytic activity/Vol] 70 U/L 45-117 [facility] ALT [Catalytic activity/Vol] 38 U/L 16-61 [facility] CO2 [Moles/Vol] 27.0 mmol/L 21.0-32.0 [facility] Globulin (S) [Mass/Vol] 3.4 g/dL 2.2-4.2 [facility] Urea nitrogen/Creatinine [Mass ratio] 15.5 mg/mg 10-20 [facility] Laboratory - Hematology and Cell countsOrdered By: Dr. Colvin on 05-02-2023 Erythrocyte distribution width (RBC) [Entitic vol] 39.1 fL 35.1-43.9 [facility] Erythrocyte distribution width (RBC) [Ratio] 12.0 % 11.6-14.6 [facility] Immature granulocytes/100 WBC (Bld) 0.400 % 0.0-0.9 [facility] Comment on above: IG% - Immature Granu locytes (promyelocytes, myelocytes and metamyelocytes) > 1% indicates that a LEFT SHIFT is Present. MCH (RBC) [Entitic mass] 29.4 pg 27.0-32.0 [facility] Nucleated RBC/100 WBC (Bld) [Ratio] 0 % 0-5 [facility] MCHC Auto (RBC) [Mass/Vol]Or dered By: Dr. Colvin on 05-02-2023 MCHC (RBC) [Mass/Vol] 33.0 g/dL 32-36 [facility] No Panel InformationOrdered By: Dr. Colvin on 05-02-2023 Estimated GFR (MDRD) Amer 98 mL/min >60 [facility] Comment on above: GFR Calc Estimated GFR (MDRD) Non-Af Amer 81 mL/min >60 [facility] Comment on above: Non- GFR Calc Thyroid Stimulating Hormone (TSH) 1.58 uIU/mL 0.358-3.74 [facility] Platelets bldOrdered By: Dr. Colvin on 05-02-2023 Platelets (Bld) [#/Vol] 259 10*3/uL 150-450 [facility] Serum or plasma albumin rosangela urement (mass/volume)Ordered By: Dr. Colvin on 05-02-2023 Albumin [Mass/Vol] 3.8 g/dL 3.2-5.0 [facility] Serum or plasma albumin/glob ulin mass ratioOrdered By: Dr. Colvin on 05-02-2023 Albumin/Globulin [Mass ratio] 1.1 {ratio} 0.9-2.4 [facility] Serum or plasma calcium rosangela urement (mass/volume)Ordered By: Dr. Colvin on 05-02-2023 Calcium [Mass/Vol] 8.9 mg/dL 8.5-10.1 [facility] Serum or plasma creatinine m easurement (mass/volume)Ordered By: Dr. Colvin on 05-02-2023 Creatinine [Mass/Vol] 1.03 mg/dL 0.70-1.30 [facility] Comment on above: The validity of the calculated GFR & GFRAA in patients over 70 years has not been determined. Clinical correlation is essential. Serum or plasma urea nitroge n measurement (mass/volume)Ordered By: Dr. Colvin on 05-02-2023 Urea nitrogen [Mass/Vol] 16 mg/dL 7-18 [facility] Thin prep Papanicolaou smear with manual screeningOrdered By: Dr. Colvin on 05-02-2023 Thin prep Papanicolaou smear with manual screening 17 U/L 15-37 [facility] Thin prep Papanicolaou smear with manual screening 5 5-15 [facility] Basophil percentageOrdered B y: Dr. Mccall on 04-17-2023 Chloride [Moles/Vol] 108 mmol/L 98-107 [facility] Glucose [Mass/Vol] 101 mg/dL 74-106 [facility] Comment on above: Fasting Glucose resu lt from 100 to 125 mg/dL suggests IMPAIRED HOMEOSTASIS per A.D.A. criteria. Potassium [Moles/Vol] 4.0 mmol/L 3.5-5.1 [facility] Sodium [Moles/Vol] 139 mmol/L 136-145 [facility] WBC (Bld) [#/Vol] 4.1 10*3/uL 4.4-11.0 [facility] Blood erythrocytes count (nu mber/volume)Ordered By: Dr. Mccall on 04-17-2023 RBC (Bld) [#/Vol] 4.83 10*6/uL 4.6-6.2 [facility] Blood hemoglobin measurement (mass/volume)Ordered By: Dr. Mccall on 04-17-2023 Hemoglobin (Bld) [Mass/Vol] 14.4 g/dL 13.0-16.5 [facility] Blood platelet mean volumeOr dered By: Dr. Mccall on 04-17-2023 Platelet mean volume (Bld) [Entitic vol] 9.1 fL 6.2-12.0 [facility] Determination of erythrocyte mean corpuscular volume (MCV)Ordered By: Dr. Mccall on 04-17-2023 MCV (RBC) [Entitic vol] 89.9 fL 80-94 [facility] Hematocrit Auto (Bld) [Volum e fraction]Ordered By: Dr. Mccall on 04-17-2023 Hematocrit (Bld) [Volume fraction] 43.4 % 40-54 [facility] Laboratory - Chemistry and C hemistry - challengeOrdered By: Dr. Mccall on 04-17-2023 CO2 [Moles/Vol] 28.0 mmol/L 21.0-32.0 [facility] Urea nitrogen/Creatinine [Mass ratio] 17.3 mg/mg 10-20 [facility] Laboratory - Hematology and Cell countsOrdered By: Dr. Mccall on 04-17-2023 Erythrocyte distribution width (RBC) [Entitic vol] 40.0 fL 35.1-43.9 [facility] Erythrocyte distribution width (RBC) [Ratio] 12.3 % 11.6-14.6 [facility] MCH (RBC) [Entitic mass] 29.8 pg 27.0-32.0 [facility] MCHC Auto (RBC) [Mass/Vol]Or dered By: Dr. Mccall on 04-17-2023 MCHC (RBC) [Mass/Vol] 33.2 g/dL 32-36 [facility] No Panel InformationOrdered By: Dr. Mccall on 04-17-2023 Estimated Creatinine Clearance Calc 106.01 ml/min [facility] Estimated GFR (MDRD) Amer 104 mL/min >60 [facility] Comment on above: GFR Calc Estimated GFR (MDRD) Non-Af Amer 86 mL/min >60 [facility] Comment on above: Non- GFR Calc Platelets bldOrdered By: Dr. Mccall on 04-17-2023 Platelets (Bld) [#/Vol] 237 10*3/uL 150-450 [facility] Serum or plasma calcium rosangela urement (mass/volume)Ordered By: Dr. Mccall on 04-17-2023 Calcium [Mass/Vol] 8.7 mg/dL 8.5-10.1 [facility] Serum or plasma creatinine m easurement (mass/volume)Ordered By: Dr. Mccall on 04-17-2023 Creatinine [Mass/Vol] 0.98 mg/dL 0.70-1.30 [facility] Comment on above: The validity of the calculated GFR & GFRAA in patients over 70 years has not been determined. Clinical correlation is essential. Serum or plasma urea nitroge n measurement (mass/volume)Ordered By: Dr. Mccall on 04-17-2023 Urea nitrogen [Mass/Vol] 17 mg/dL 7-18 [facility] Thin prep Papanicolaou smear with manual screeningOrdered By: Dr. Mccall on 04-17-2023 Thin prep Papanicolaou smear with manual screening 3 5-15 [facility] No Panel InformationOrdered By: Rogelio Colvin on 03-06-2023 Influenza Types A,B Direct FA (JAMIE) [facility] No Panel InformationOrdered By: Dr. Colvin on 03-06-2023 Influenza Types A,B Direct FA ([facility]) [facility] RSV Ag EIAOrdered By: Rogelio armendariz on 03-06-2023 RSV Ag Immune stain Ql (Tiss) [facility] RSV Ag EIAOrdered By: Dr. Iliana armendariz on 03-06-2023 RSV Ag Immune stain Ql (Tiss) [facility] Absolute lymphocyte countOrd ered By: Dr. Gill on 01-11-2023 Lymphocytes Auto (Unsp spec) [#/Vol] 2.87 10*3/uL 0.83-4.51 [facility] Basophil percentageOrdered B y: Dr. Gill on 01-11-2023 Basophils/100 WBC (Bld) 0.6 % 0-1 [facility] Chloride [Moles/Vol] 103 mmol/L 98-107 [facility] Eosinophils/100 WBC (Bld) 1.8 % 0-5 [facility] Glucose [Mass/Vol] 134 mg/dL 74-106 [facility] Comment on above: Fasting Glucose resu lt greater than or equal to 126 mg/dL suggests DIABETES MELLITUS per A.D.A. criteria. Neutrophils (Bld) [#/Vol] 6.7 10*3/uL 2.0-7.7 [facility] Neutrophils/100 WBC (Bld) 61.4 % 47-70 [facility] Potassium [Moles/Vol] 3.4 mmol/L 3.5-5.1 [facility] Sodium [Moles/Vol] 139 mmol/L 136-145 [facility] WBC (Bld) [#/Vol] 10.8 10*3/uL 4.4-11.0 [facility] Basophil percentageOrdered B y: Dr. Mccall on 01-11-2023 Chloride [Moles/Vol] 105 mmol/L 98-107 [facility] Glucose [Mass/Vol] 110 mg/dL 74-106 [facility] Comment on above: Fasting Glucose resu lt from 100 to 125 mg/dL suggests IMPAIRED HOMEOSTASIS per A.D.A. criteria. Potassium [Moles/Vol] 3.9 mmol/L 3.5-5.1 [facility] Sodium [Moles/Vol] 140 mmol/L 136-145 [facility] WBC (Bld) [#/Vol] 6.3 10*3/uL 4.4-11.0 [facility] Blood erythrocytes count (nu mber/volume)Ordered By: Dr. Gill on 01-11-2023 RBC (Bld) [#/Vol] 4.73 10*6/uL 4.6-6.2 [facility] Blood erythrocytes count (nu mber/volume)Ordered By: Dr. Mccall on 01-11-2023 RBC (Bld) [#/Vol] 4.16 10*6/uL 4.6-6.2 [facility] Blood hemoglobin measurement (mass/volume)Ordered By: Dr. Gill on 01-11-2023 Hemoglobin (Bld) [Mass/Vol] 14.3 g/dL 13.0-16.5 [facility] Blood hemoglobin measurement (mass/volume)Ordered By: Dr. Mccall on 01-11-2023 Hemoglobin (Bld) [Mass/Vol] 12.3 g/dL 13.0-16.5 [facility] Blood lymphocytes/100 leukoc ytesOrdered By: Dr. Gill on 01-11-2023 Lymphocytes/100 WBC (Bld) 26.5 % 19-41 [facility] Blood monocytes/100 leukocyt esOrdered By: Dr. Gill on 01-11-2023 Monocytes/100 WBC (Bld) 9.4 % 0-10 [facility] Blood platelet mean volumeOr dered By: Dr. Gill on 01-11-2023 Platelet mean volume (Bld) [Entitic vol] 9.1 fL 6.2-12.0 [facility] Blood platelet mean volumeOr dered By: Dr. Mccall on 01-11-2023 Platelet mean volume (Bld) [Entitic vol] 8.7 fL 6.2-12.0 [facility] Determination of erythrocyte mean corpuscular volume (MCV)Ordered By: Dr. Gill on 01-11-2023 MCV (RBC) [Entitic vol] 90.9 fL 80-94 [facility] Determination of erythrocyte mean corpuscular volume (MCV)Ordered By: Dr. Mccall on 01-11-2023 MCV (RBC) [Entitic vol] 91.1 fL 80-94 [facility] Glucose Glucometer (BldC) [M ass/Vol]Ordered By: Dr. Gill on 01-11-2023 Glucose [Mass/Vol] 150 mg/dL 74-106 [facility] Comment on above: MANAGEMENT OF PATIEN T CARE PER NURSING PROTOCOL Hematocrit Auto (Bld) [Volum e fraction]Ordered By: Dr. Gill on 01-11-2023 Hematocrit (Bld) [Volume fraction] 43.0 % 40-54 [facility] Hematocrit Auto (Bld) [Volum e fraction]Ordered By: Dr. Mccall on 01-11-2023 Hematocrit (Bld) [Volume fraction] 37.9 % [facility] Laboratory - Chemistry and C hemistry - challengeOrdered By: Dr. Gill on 01-11-2023 CO2 [Moles/Vol] 31.0 mmol/L 21.0-32.0 [facility] Urea nitrogen/Creatinine [Mass ratio] 15.8 mg/mg 08-31 [facility] Laboratory - Chemistry and C hemistry - challengeOrdered By: Dr. Mccall on 01-11-2023 CO2 [Moles/Vol] 30.0 mmol/L 21.0-32.0 [facility] Urea nitrogen/Creatinine [Mass ratio] 16.1 mg/mg 08-31 [facility] Laboratory - CoagulationOrde red By: Dr. Mccall on 01-11-2023 aPTT Coag (Bld) [Time] 51.2 s 24.1-36.2 [facility] Laboratory - Hematology and Cell countsOrdered By: Dr. Gill on 01-11-2023 Erythrocyte distribution width (RBC) [Entitic vol] 42.2 fL 35.1-43.9 [facility] Erythrocyte distribution width (RBC) [Ratio] 12.7 % 11.6-14.6 [facility] Immature granulocytes/100 WBC (Bld) 0.300 % 0.0-0.9 [facility] Comment on above: IG% - Immature Granu locytes (promyelocytes, myelocytes and metamyelocytes) > 1% indicates that a LEFT SHIFT is Present. MCH (RBC) [Entitic mass] 30.2 pg 27.0-32.0 [facility] Nucleated RBC/100 WBC (Bld) [Ratio] 0 % 0-5 [facility] Laboratory - Hematology and Cell countsOrdered By: Dr. Mccall on 01-11-2023 Erythrocyte distribution width (RBC) [Entitic vol] 42.2 fL 35.1-43.9 [facility] Erythrocyte distribution width (RBC) [Ratio] 12.8 % 11.6-14.6 [facility] MCH (RBC) [Entitic mass] 29.6 pg 27.0-32.0 [facility] MCHC Auto (RBC) [Mass/Vol]Or dered By: Dr. Gill on 01-11-2023 MCHC (RBC) [Mass/Vol] 33.3 g/dL 32-36 [facility] MCHC Auto (RBC) [Mass/Vol]Or dered By: Dr. Mccall on 01-11-2023 MCHC (RBC) [Mass/Vol] 32.5 g/dL 32-36 [facility] No Panel InformationOrdered By: Dr. Gill on 01-11-2023 Estimated Creatinine Clearance Calc 91.13 ml/min [facility] Estimated GFR (MDRD) Amer 88 mL/min >60 [facility] Comment on above: GFR Calc Estimated GFR (MDRD) Non-Af Amer 72 mL/min >60 [facility] Comment on above: Non- GFR Calc Troponin I High Sensitivity 7 pg/mL 3.0-78.0 [facility] Comment on above: Please Note: New Melissa t Units and Gender Specific Reference Ranges. For more information see Policy Stat Procedure [place] High Sensitivity Troponin (TNIH) and attachments. No Panel InformationOrdered By: Dr. Mccall on 01-11-2023 Estimated Creatinine Clearance Calc 103.89 ml/min [facility] Estimated GFR (MDRD) Amer 103 mL/min >60 [facility] Comment on above: GFR Calc Estimated GFR (MDRD) Non-Af Amer 85 mL/min >60 [facility] Comment on above: Non- GFR Calc Platelets bldOrdered By: Dr. Gill on 01-11-2023 Platelets (Bld) [#/Vol] 337 10*3/uL 150-450 [facility] Platelets bldOrdered By: Dr. Mccall on 01-11-2023 Platelets (Bld) [#/Vol] 215 10*3/uL 150-450 [facility] Serum or plasma calcium rosangela urement (mass/volume)Ordered By: Dr. Gill on 01-11-2023 Calcium [Mass/Vol] 8.8 mg/dL 8.5-10.1 [facility] Serum or plasma calcium rosangela urement (mass/volume)Ordered By: Dr. Mccall on 01-11-2023 Calcium [Mass/Vol] 8.6 mg/dL 8.5-10.1 [facility] Serum or plasma creatinine m easurement (mass/volume)Ordered By: Dr. Gill on 01-11-2023 Creatinine [Mass/Vol] 1.14 mg/dL 0.70-1.30 [facility] Comment on above: The validity of the calculated GFR & GFRAA in patients over 70 years has not been determined. Clinical correlation is essential. Serum or plasma creatinine m easurement (mass/volume)Ordered By: Dr. Mccall on 01-11-2023 Creatinine [Mass/Vol] 1.00 mg/dL 0.70-1.30 [facility] Comment on above: The validity of the calculated GFR & GFRAA in patients over 70 years has not been determined. Clinical correlation is essential. Serum or plasma urea nitroge n measurement (mass/volume)Ordered By: Dr. Gill on 01-11-2023 Urea nitrogen [Mass/Vol] 18 mg/dL - [facility] Serum or plasma urea nitroge n measurement (mass/volume)Ordered By: Dr. Mccall on 01-11-2023 Urea nitrogen [Mass/Vol] 16 mg/dL - [facility] Thin prep Papanicolaou smear with manual screeningOrdered By: Dr. Gill on 01-11-2023 Thin prep Papanicolaou smear with manual screening 5 - [facility] Thin prep Papanicolaou smear with manual screeningOrdered By: Dr. Mccall on 01-11-2023 Thin prep Papanicolaou smear with manual screening 5 5- [facility] Absolute lymphocyte countOrd ered By: Teena Reynolds on 01-10-2023 Lymphocytes Auto (Unsp spec) [#/Vol] 1.56 10*3/uL 0.83-4.51 [facility] Basophil percentageOrdered B y: Teena Reynolds on 01-10-2023 Basophils/100 WBC (Bld) 0.7 % 0-1 [facility] Eosinophils/100 WBC (Bld) 2.6 % 0-5 [facility] Neutrophils (Bld) [#/Vol] 3.1 10*3/uL 2.0-7.7 [facility] Neutrophils/100 WBC (Bld) 57.9 % 47-70 [facility] Blood lymphocytes/100 leukoc ytesOrdered By: Teena Reynolds on 01-10-2023 Lymphocytes/100 WBC (Bld) 29.2 % 19-41 [facility] Blood monocytes/100 leukocyt esOrdered By: Teena Reynolds on 01-10-2023 Monocytes/100 WBC (Bld) 9.2 % 0-10 [facility] Laboratory - Hematology and Cell countsOrdered By: Teena Reynolds on 01-10-2023 Immature granulocytes/100 WBC (Bld) 0.400 % 0.0-0.9 [facility] Comment on above: IG% - Immature Granu locytes (promyelocytes, myelocytes and metamyelocytes) > 1% indicates that a LEFT SHIFT is Present. Nucleated RBC/100 WBC (Bld) [Ratio] 0 % 0-5 [facility] No Panel InformationOrdered By: Dr. Mccall on 01-10-2023 Activated Clotting Time 215 sec 74-137 [facility] INR in Blood by Coagulation assayOrdered By: Teena Reynolds on 01-09-2023 INR Coag (Bld) [Relative time] 1.5 {INR} [facility] Laboratory - CoagulationOrde red By: Teena Reynolds on 01-09-2023 PT Coag (PPP) [Time] 17.5 s 11.7-14.9 [facility] Absolute lymphocyte countOrd ered By: Kirstin Javier on 12-31-2022 Lymphocytes Auto (Unsp spec) [#/Vol] 1.34 10*3/uL 0.83-4.51 [facility] Basophil percentageOrdered B y: Kirstin Javier on 12-31-2022 Basophil percentage 0-5 SEEN /hpf 0-5 Wo [facility] Basophils/100 WBC (Bld) 0.3 % 0-1 [facility] Chloride [Moles/Vol] 106 mmol/L 98-107 [facility] Eosinophils/100 WBC (Bld) 1.2 % 0-5 [facility] Glucose [Mass/Vol] 130 mg/dL 74-106 [facility] Comment on above: Fasting Glucose resu lt greater than or equal to 126 mg/dL suggests DIABETES MELLITUS per A.D.A. criteria. Neutrophils (Bld) [#/Vol] 8.7 10*3/uL 2.0-7.7 [facility] Neutrophils/100 WBC (Bld) 78.1 % 47-70 [facility] Potassium [Moles/Vol] 4.1 mmol/L 3.5-5.1 [facility] Sodium [Moles/Vol] 140 mmol/L 136-145 [facility] WBC (Bld) [#/Vol] 11.1 10*3/uL 4.4-11.0 [facility] Bilirubin Test strip Ql (U)O rdered By: Kirstin Javier on 12-31-2022 Bilirubin Ql (U) Negative Negative [facility] Blood erythrocytes count (nu mber/volume)Ordered By: Kirstin Javier on 12-31-2022 RBC (Bld) [#/Vol] 5.08 10*6/uL 4.6-6.2 [facility] Blood hemoglobin measurement (mass/volume)Ordered By: Kirstin Javier on 12-31-2022 Hemoglobin (Bld) [Mass/Vol] 15.4 g/dL 13.0-16.5 [facility] Blood lymphocytes/100 leukoc ytesOrdered By: Kirstin Javier on 12-31-2022 Lymphocytes/100 WBC (Bld) 12.1 % 19-41 [facility] Blood monocytes/100 leukocyt esOrdered By: Kirstin Javier on 12-31-2022 Monocytes/100 WBC (Bld) 8.0 % 0-10 [facility] Blood platelet mean volumeOr dered By: Kirstin Javier on 12-31-2022 Platelet mean volume (Bld) [Entitic vol] 9.1 fL 6.2-12.0 [facility] Determination of erythrocyte mean corpuscular volume (MCV)Ordered By: Kirstin Javier on 12-31-2022 MCV (RBC) [Entitic vol] 89.6 fL 80-94 [facility] Hematocrit Auto (Bld) [Volum e fraction]Ordered By: Kirstin Javier on 12-31-2022 Hematocrit (Bld) [Volume fraction] 45.5 % 40-54 [facility] Ketones Test strip Ql (U)Ord ered By: Kirstin Javier on 12-31-2022 Ketones Ql (U) Negative Negative [facility] Laboratory - Chemistry and C hemistry - challengeOrdered By: Kirstin Javier on 12-31-2022 CK [Catalytic activity/Vol] 26 U/L 39-308 [facility] CO2 [Moles/Vol] 28.0 mmol/L 21.0-32.0 [facility] Urea nitrogen/Creatinine [Mass ratio] 26.6 mg/mg 10-20 [facility] Laboratory - Hematology and Cell countsOrdered By: Kirstin Javier on 12-31-2022 Erythrocyte distribution width (RBC) [Entitic vol] 41.0 fL 35.1-43.9 [facility] Erythrocyte distribution width (RBC) [Ratio] 12.5 % 11.6-14.6 [facility] Immature granulocytes/100 WBC (Bld) 0.300 % 0.0-0.9 [facility] Comment on above: IG% - Immature Granu locytes (promyelocytes, myelocytes and metamyelocytes) > 1% indicates that a LEFT SHIFT is Present. MCH (RBC) [Entitic mass] 30.3 pg 27.0-32.0 [facility] Nucleated RBC/100 WBC (Bld) [Ratio] 0 % 0-5 [facility] MCHC Auto (RBC) [Mass/Vol]Or dered By: Kirstin Javier on 12-31-2022 MCHC (RBC) [Mass/Vol] 33.8 g/dL 32-36 [facility] Mucus LM Ql (Urine sed)Order ed By: Kirstin Javier on 12-31-2022 Mucus Ql (Urine sed) RARE /hpf [facility] Nitrite Test strip Ql (U)Ord ered By: Kirstin Javier on 12-31-2022 Nitrite Ql (U) Negative Negative [facility] No Panel InformationOrdered By: Kirstin Javier on 12-31-2022 Estimated Creatinine Clearance Calc 106.01 ml/min [facility] Estimated GFR (MDRD) Amer 105 mL/min >60 [facility] Comment on above: GFR Calc Estimated GFR (MDRD) Non-Af Amer 87 mL/min >60 [facility] Comment on above: Non- GFR Calc Platelets bldOrdered By: Melvina Javier on 12-31-2022 Platelets (Bld) [#/Vol] 182 10*3/uL 150-450 [facility] Protein Test strip Ql (U)Ord ered By: Kirstin Javier on 12-31-2022 Protein Ql (U) 15 mg/dl Negative [facility] Serum or plasma calcium rosangela urement (mass/volume)Ordered By: Kirstin Javier on 12-31-2022 Calcium [Mass/Vol] 9.1 mg/dL 8.5-10.1 [facility] Serum or plasma creatinine m easurement (mass/volume)Ordered By: Kirstin Javier on 12-31-2022 Creatinine [Mass/Vol] 0.98 mg/dL 0.70-1.30 [facility] Comment on above: The validity of the calculated GFR & GFRAA in patients over 70 years has not been determined. Clinical correlation is essential. Serum or plasma urea nitroge n measurement (mass/volume)Ordered By: Kirstin Javier on 12-31-2022 Urea nitrogen [Mass/Vol] 26 mg/dL 7-18 [facility] Squamous epithelial cells de tection in urine sediment by light microscopyOrdered By: Kirstin Javier on 12-31-2022 Epithelial cells.squamous LM Ql (Urine sed) 0-5 SEEN /hpf 0-5 [facility] Thin prep Papanicolaou smear with manual screeningOrdered By: Kirstin Javier on 12-31-2022 Thin prep Papanicolaou smear with manual screening 6 5-15 [facility] Urine blood detectionOrdered By: Kirstin Javier on 12-31-2022 RBC Ql (U) 10 /ul Negative [facility] [facility] RBC Ql (U) 0-5 SEEN /hpf 0-5 [facility] Urine clarityOrdered By: Melvina Javier on 12-31-2022 Clarity (U) Sl. Cloudy Clear [facility] Urine color determinationOrd ered By: Kirstin Javier on 12-31-2022 Color (U) Yellow Yellow [facility] Urine glucose detectionOrder ed By: Kirstin Javier on 12-31-2022 Glucose Ql (U) Normal mg/dl Normal [facility] Urine leukocyte esterase det ection by dipstickOrdered By: Kirstin Javier on 12-31-2022 Leukocyte esterase Test strip Ql (U) Negative Negative [facility] Urine pHOrdered By: Kirstin vargas on 12-31-2022 pH (U) 5.0 [pH] 5.0 - 8.0 [facility] Urine sediment bacteria coun t by microscopy (number/high power field)Ordered By: Kirstin Javier on 12-31-2022 Bacteria LM.HPF (Urine sed) [#/Area] RARE /hpf None Seen [facility] Urine specific gravity measu rementOrdered By: Kirstin Javier on 12-31-2022 Specific gravity (U) [Rel density] 1.025 1.002-1.030 [facility] Urobilinogen Auto test strip Ql (U)Ordered By: Kirstin Javier on 12-31-2022 Urobilinogen Ql (U) 1 mg/dl Normal [facility] EMERGENCY REPORTon 3 EMERGENCY REPORT [facility] EMERGENCY ROOM REPORT NAME ACCOUNT SEX AGE ADMIT DISCHARGE PT MED. RECORD# NUMBER DATE DATE TYPE ADIA [id number] M 47 12/04/22 12/04/22 3 DELTA Macias [id number] ROOM: ER DATE OF : 1975 DICTATING [...] and Percocet, which were called in to [facility] in [place]. Limited activity over the next 2 to 4 days and then as tolerated. I recommended follow-up with his family physician or Orthopedics for further management, returning if symptoms worsen. Dictated By: Cj Leiva MD 12/04/22 11:56 JOB #: [id number] Transcribed By: richmond 12/05/22 18:18 Electronically signed by: MAC Leiva M.D. 12/08/22 07:37 Page 2 of 2 DELTA CHEEK Emergency Room Report Normal [facility] Absolute lymphocyte countOrd ered By: Dr. Jeffery on 12-06-2022 Lymphocytes Auto (Unsp spec) [#/Vol] 0.72 10*3/uL 0.83-4.51 [facility] Basophil percentageOrdered B y: Jacek Raygoza on 12-06-2022 Basophil percentage 0 SEEN /hpf 0-5 [facility] Basophil percentageOrdered B y: Dr. Jeffery on 12-06-2022 Basophils/100 WBC (Bld) 0.1 % 0-1 [facility] Chloride [Moles/Vol] 109 mmol/L 98-107 [facility] Eosinophils/100 WBC (Bld) 0.0 % 0-5 [facility] Glucose [Mass/Vol] 127 mg/dL 74-106 [facility] Comment on above: Fasting Glucose resu lt greater than or equal to 126 mg/dL suggests DIABETES MELLITUS per A.D.A. criteria. Neutrophils (Bld) [#/Vol] 8.7 10*3/uL 2.0-7.7 [facility] Neutrophils/100 WBC (Bld) 90.1 % 47-70 [facility] Potassium [Moles/Vol] 4.0 mmol/L 3.5-5.1 [facility] Sodium [Moles/Vol] 140 mmol/L 136-145 [facility] WBC (Bld) [#/Vol] 9.7 10*3/uL 4.4-11.0 [facility] Bilirubin Test strip Ql (U)O rdered By: Jacek Raygoza on 12-06-2022 Bilirubin Ql (U) Negative Negative [facility] Blood erythrocytes count (nu mber/volume)Ordered By: Dr. Jeffery on 12-06-2022 RBC (Bld) [#/Vol] 5.02 10*6/uL 4.6-6.2 [facility] Blood hemoglobin measurement (mass/volume)Ordered By: Dr. Jeffery on 12-06-2022 Hemoglobin (Bld) [Mass/Vol] 14.6 g/dL 13.0-16.5 [facility] Blood lymphocytes/100 leukoc ytesOrdered By: Dr. Jeffery on 12-06-2022 Lymphocytes/100 WBC (Bld) 7.4 % 19-41 [facility] Blood monocytes/100 leukocyt esOrdered By: Dr. Jeffery on 12-06-2022 Monocytes/100 WBC (Bld) 1.9 % 0-10 [facility] Blood platelet mean volumeOr dered By: Dr. Jeffery on 12-06-2022 Platelet mean volume (Bld) [Entitic vol] 9.4 fL 6.2-12.0 [facility] Determination of erythrocyte mean corpuscular volume (MCV)Ordered By: Dr. Jeffery on 12-06-2022 MCV (RBC) [Entitic vol] 86.3 fL 80-94 [facility] Hematocrit Auto (Bld) [Volum e fraction]Ordered By: Dr. Jeffery on 12-06-2022 Hematocrit (Bld) [Volume fraction] 43.3 % 40-54 [facility] Ketones Test strip Ql (U)Ord ered By: Jacek Raygoza on 12-06-2022 Ketones Ql (U) Negative Negative [facility] Laboratory - Chemistry and C hemistry - challengeOrdered By: Dr. Jeffery on 12-06-2022 CO2 [Moles/Vol] 25.0 mmol/L 21.0-32.0 [facility] Urea nitrogen/Creatinine [Mass ratio] 15.5 mg/mg 10-20 [facility] Laboratory - Hematology and Cell countsOrdered By: Dr. Jeffery on 12-06-2022 Erythrocyte distribution width (RBC) [Entitic vol] 38.5 fL 35.1-43.9 [facility] Erythrocyte distribution width (RBC) [Ratio] 12.4 % 11.6-14.6 [facility] Immature granulocytes/100 WBC (Bld) 0.500 % 0.0-0.9 [facility] Comment on above: IG% - Immature Granu locytes (promyelocytes, myelocytes and metamyelocytes) > 1% indicates that a LEFT SHIFT is Present. MCH (RBC) [Entitic mass] 29.1 pg 27.0-32.0 [facility] Nucleated RBC/100 WBC (Bld) [Ratio] 0 % 0-5 [facility] MCHC Auto (RBC) [Mass/Vol]Or dered By: Dr. Jeffery on 12-06-2022 MCHC (RBC) [Mass/Vol] 33.7 g/dL 32-36 [facility] Mucus LM Ql (Urine sed)Order ed By: Jacek Raygoza on 12-06-2022 Mucus Ql (Urine sed) 0 SEEN /hpf [facility] Nitrite Test strip Ql (U)Ord ered By: Jacek Raygoza on 12-06-2022 Nitrite Ql (U) Negative Negative [facility] No Panel InformationOrdered By: Dr. Jeffery on 12-06-2022 Estimated Creatinine Clearance Calc 89.56 ml/min [facility] Estimated GFR (MDRD) Amer 86 mL/min >60 [facility] Comment on above: GFR Calc Estimated GFR (MDRD) Non-Af Amer 71 mL/min >60 [facility] Comment on above: Non- GFR Calc Platelets bldOrdered By: Dr. Jeffery on 12-06-2022 Platelets (Bld) [#/Vol] 230 10*3/uL 150-450 [facility] Protein Test strip Ql (U)Ord ered By: Jacek Raygoza on 12-06-2022 Protein Ql (U) Negative Negative [facility] Serum or plasma calcium rosangela urement (mass/volume)Ordered By: Dr. Jeffery on 12-06-2022 Calcium [Mass/Vol] 8.8 mg/dL 8.5-10.1 [facility] Serum or plasma creatinine m easurement (mass/volume)Ordered By: Dr. Jeffery on 12-06-2022 Creatinine [Mass/Vol] 1.16 mg/dL 0.70-1.30 [facility] Comment on above: The validity of the calculated GFR & GFRAA in patients over 70 years has not been determined. Clinical correlation is essential. Serum or plasma urea nitroge n measurement (mass/volume)Ordered By: Dr. Jeffery on 12-06-2022 Urea nitrogen [Mass/Vol] 18 mg/dL 7-18 [facility] Squamous epithelial cells de tection in urine sediment by light microscopyOrdered By: Jacek Raygoza on 12-06-2022 Epithelial cells.squamous LM Ql (Urine sed) 0 SEEN /hpf 0-5 [facility] Thin prep Papanicolaou smear with manual screeningOrdered By: Dr. Jeffery on 12-06-2022 Thin prep Papanicolaou smear with manual screening 6 5-15 [facility] Urine blood detectionOrdered By: Jacek Raygoza on 12-06-2022 RBC Ql (U) Negative Negative [facility] RBC Ql (U) 0 SEEN /hpf 0-5 [facility] Urine clarityOrdered By: Yevgeniy Raygoza on 12-06-2022 Clarity (U) Clear Clear [facility] Urine color determinationOrd ered By: Jacek Raygoza on 12-06-2022 Color (U) Yellow Yellow [facility] Urine glucose detectionOrder ed By: Jacek Raygoza on 12-06-2022 Glucose Ql (U) Normal mg/dl Normal [facility] Urine leukocyte esterase det ection by dipstickOrdered By: Jacek Raygoza on 12-06-2022 Leukocyte esterase Test strip Ql (U) Negative Negative [facility] Urine pHOrdered By: Jacek zamorano on 12-06-2022 pH (U) 8.0 [pH] 5.0 - 8.0 [facility] Urine sediment bacteria coun t by microscopy (number/high power field)Ordered By: Jacek Raygoza on 12-06-2022 Bacteria LM.HPF (Urine sed) [#/Area] 0 /[HPF] None Seen [facility] Urine specific gravity measu rementOrdered By: Jacek Raygoza on 12-06-2022 Specific gravity (U) [Rel density] 1.015 1.002-1.030 [facility] Urobilinogen Auto test strip Ql (U)Ordered By: Jacek Raygoza on 12-06-2022 Urobilinogen Ql (U) Normal mg/dl Normal [facility] CT LUMBAR W/O CONTRASTon CT LUMBAR W/O CONTRAST [place] [address] Patient: DELTA CHEEK Phone#: : 1975 Age: 47 Gender: M Pt. Type: ER Account: [id number] Location: [facility] Ordering: CJ LEIVA Exam Date: 12/04/2022/9:42 Family Phys: ROGELIO COLVIN Charge Code: 478711 Physician: [place] Order #: [id number] Dose#: 28.9 mGy PROCEDURE: CT LUMBAR SPINE [...] Dunn MD on 12/04/2022 at 10:28 Normal [facility] BASIC METABOLIC PANELon 05-2 Anion gap [Moles/Vol] 9 mmol/L Low 10 - 20 [facility] Comment on above: Performed By: #### B MP #### [address] [address] Calcium [Mass/Vol] 8.9 mg/dL Normal 8.6 - 10.3 [facility] Comment on above: Performed By: #### B MP #### [address] [address] Chloride [Moles/Vol] 108 mmol/L High 98 - 107 [facility] Comment on above: Performed By: #### B MP #### [address] [address] Creatinine [Mass/Vol] 0.93 mg/dL Normal 0.50 - 1.30 [facility] Comment on above: Performed By: #### B MP #### [address] [address] eGFR MALE >90 Normal >90 [facility] Comment on above: Result Comment: CALC ULATIONS OF ESTIMATED GFR ARE PERFORMED USING THE 2020 CKD-EPI STUDY REFIT EQUATION WITHOUT THE RACE VARIABLE FOR THE IDMS-TRACEABLE CREATININE METHODS. https://jasn.asnjournals.org/content/early//ASN.531 9274634 Performed By: #### B MP #### [address] [address] Glucose [Mass/Vol] 89 mg/dL Normal 74 - 99 [facility] Comment on above: Performed By: #### B MP #### [address] [address] HCO3 (Bld) [Moles/Vol] 27 mmol/L Normal 21 - 32 [facility] Comment on above: Performed By: #### B MP #### [address] [address] Potassium [Moles/Vol] 3.7 mmol/L Normal 3.5 - 5.3 [facility] Comment on above: Performed By: #### B MP #### [address] [address] Sodium [Moles/Vol] 140 mmol/L Normal 136 - 145 [facility] Comment on above: Performed By: #### B MP #### [address] [address] Urea nitrogen [Mass/Vol] 13 mg/dL Normal 6 - 23 [facility] Comment on above: Performed By: #### B MP #### [address] [address] BNPon 04-04-2022 Natriuretic peptide B (Bld) [Mass/Vol] 16 pg/mL Normal 0 - 99 [facility] Comment on above: Result Comment: . <1 00 pg/mL - Heart failure unlikely 100-299 pg/mL - Intermediate probability of acute heart . failure exacerbation. Correlate with clinical . context and patient history. >=300 pg/mL - Heart Failure likely. Correlate with clinical . context and patient history. BNP testing is performed using different testing methodology at [facility] than at other [facility]. Direct result comparisons should only be made within the same method. Performed By: #### B NP2 #### [address] [address] CBC AND DIFFERENTIALon 04-04 Basophils (Bld) [#/Vol] 0.10 10*3/uL Normal 0.00 - 0.1 0 [facility] Comment on above: Performed By: #### C BCDF #### [address] [address] Basophils/100 WBC (Bld) 1.1 % Normal 0.0 - 2.[address] [facility] Comment on above: Performed By: #### C BCDF #### [address] [address] Eosinophils (Bld) [#/Vol] 0.10 10*3/uL Normal 0.00 - 0.70 [facility] Comment on above: Performed By: #### C BCDF #### [address] [address] Eosinophils/100 WBC (Bld) 2.0 % Normal 0.0 - 6.0 [facility] Comment on above: Performed By: #### C BCDF #### [address] [address] Erythrocyte distribution width (RBC) [Ratio] 12.9 % Normal 11.5 - 14.5 [facility] Comment on above: Performed By: #### C BCDF #### [address] [address] Hematocrit (Bld) [Volume fraction] 44.6 % Normal 41.0 - 52.0 [facility] Comment on above: Performed By: #### C BCDF #### [address] [address] Hemoglobin (Bld) [Mass/Vol] 15.0 g/dL Normal 13.5 - 17.5 [facility] Comment on above: Performed By: #### C BCDF #### [address] [address] Lymphocytes (Bld) [#/Vol] 1.80 10*3/uL Normal 1.20 - 4.80 [facility] Comment on above: Performed By: #### C BCDF #### [address] [address] Lymphocytes/100 WBC (Bld) 28.9 % Normal 13.0 - 44.0 [facility] Comment on above: Performed By: #### C BCDF #### [address] [address] MCHC (RBC) [Mass/Vol] 33.7 g/dL Normal 32.0 - 36.0 [facility] Comment on above: Performed By: #### C BCDF #### [address] [address] MCV (RBC) [Entitic vol] 86 fL Normal 80 - [address] [facility] Comment on above: Performed By: #### C BCDF #### [address] [address] Monocytes (Bld) [#/Vol] 0.50 10*3/uL Normal 0.10 - 1.0 0 [facility] Comment on above: Performed By: #### C BCDF #### [address] [address] Monocytes/100 WBC (Bld) 8.6 % Normal 2.0 - 10.[address] [facility] Comment on above: Performed By: #### C BCDF #### [address] [address] Neutrophils (Bld) [#/Vol] 3.60 10*3/uL Normal 1.20 - 7.70 [facility] Comment on above: Result Comment: Perc ent differential counts (%) should be interpreted in the context of the absolute cell counts (cells/L). Performed By: #### C BCDF #### [address] [address] Neutrophils/100 WBC (Bld) 59.4 % Normal 40.0 - 80.0 [facility] Comment on above: Performed By: #### C BCDF #### [address] [address] NUCLEATED RBC 0.1 /100 WBC Normal [facility] Comment on above: Performed By: #### C BCDF #### [address] [address] Platelets (Bld) [#/Vol] 222 10*3/uL Normal 150 - 450 [facility] Comment on above: Performed By: #### C BCDF #### [address] [address] RBC 5.16 x10E12/L Normal 4.50 - 5.90 [facility] Comment on above: Performed By: #### C BCDF #### [address] [address] WBC (Bld) [#/Vol] 6.1 10*3/uL Normal 4.4 - 11.3 [facility] Comment on above: Performed By: #### C BCDF #### [address] [address] CHEST 1 VIEWon 04-04-2022 CHEST 1 VIEW Patient Name: DELTA CHEEK STUDY: CHEST 1 VIEW; 04/04/2022 7:45 pm INDICATION: Chest Pain . COMPARISON: Chest radiograph dated 05/13/2019. ACCESSION NUMBER(S): [id number] ORDERING CLINICIAN: MIA STEIN FINDINGS: CARDIOMEDIASTINAL SILHOUETTE: Cardiomediastinal silhouette is normal in size and configuration. LUNGS/PLEURA: There are no consolidations.The re are no pleural effusions. There is no demonstrated pneumothorax. BONES: Visualized osseous structures are intact. IMPRESSION: 1. No evidence of acute cardiopulmonary process. Electronically signed by: ROSITA NAGEL DO Normal [facility] Electrocardiogram 12 Leadon 04-04-2022 Electrocardiogram 12 Lead Ventricular Rate 71 Atrial Rate 71 P-R Interval 152 QRS Duration 78 Q-T Interval 362 QTC Calculation(Bazett ) 393 P Leeper 52 R Leeper 53 T Leeper 28 QRS Count 11 Q Onset 219 P Onset 143 P Offset 200 T Offset 400 QTC Fredericia 383 Diagnosis Class Normal Diagnosis Please see physician note for formal interpretation confirmed by Scribe Confirmed by Yonathan Frausto () on 04/11/2022 12:40:14 PM Normal [facility] MAGNESIUMon 04-04-2022 Magnesium [Mass/Vol] 2.19 mg/dL Normal 1.60 - 2.40 [facility] Comment on above: Performed By: #### M G #### [address] [address] Provider Note - ED v3on 03-13 Provider [...] results: Troponin I, High Sensitivity Trending View [id number] 19:42:00 04-Apr-2022 18:56:00 Troponin I, High Sensitivity3 [...] SIGNS: T PRBP SpO2O2(LPM) %FiO2 Method 04-Apr-2022 20:30:00-7837413/7 9 97 room air, no respiratory support 04-Apr-2022 19:30:00-9292361/8 7 97 room air, no respiratory support 04-Apr-2022 19:17:00-4434544/1 15 97 room air, no respiratory support 04-Apr-2022 18:54:00-9939461/9 5 98 room air, no respiratory support 04-Apr-2022 18:23:00-36.949618 57/99 100 room air, no respiratory support [facility] MDM/ED COURSE: PMH: Reviewed PSH: Reviewed [...] Suarez. He is placed on a continuous patient monitor with pulse oximetry monitoring. Old records [...] for follow (more content not included)... Normal [facility] TROPONIN I, HIGH SENSITIVITY on 04-04-2022 TROPONIN I, HIGH SENSITIVITY 3 ng/L Normal 0 - 20 [facility] Comment on above: Result Comment: . [...] performed using a different testing methodology at [facility] than at other [facility]. Direct result comparisons should only be made within the same method. Performed By: #### [facility] #### [place] [address] [place] [address] TROPONIN I, HIGH SENSITIVITY 3 ng/L Normal 0 - 20 [facility] Comment on above: Result Comment: . [...] performed using a different testing methodology at [facility] than at other [facility]. Direct result comparisons should only be made within the same method. Performed By: #### [facility] #### [place] [address] CNOVon 06-13-2021 CNOV Office Visit (UROPOLON) -------- DELTA CHEEK JR. ([id number]) 1975 M Date Time Provider Department 06/13/21 10:15 AM FRAN ARCHIBALD During your visit today, we recorded the following information about you: Pulse Blood pressure Weight 78/minute 137/96 113.4 kg Fran Archibald MD 06/13/2021 11:21 AM Signed [facility] NEW PATIENT HISTORY AND PHYSICAL EXAM PATIENT INFO: Delta Cheek Jr. 45 year old REFERRING M.D.: Scar Mensah MD ([facility]) [address] [place] [id number] This consult was requested by Scar Mensah MD for an opinion regarding peyronies disease, and my final recommendations will be communicated to the requesting health care provider by way of the shared medical record for internal providers or letter via the [employer] Postal Service for external providers. HISTORY Chief [...] Laterality Date - COLONOSCOP W/ OR W/O [facility] SPEC Colonoscopy - REPAIR FEMORAL HERNIA [...] Surgery Electron (more content not included)... Normal [facility] C Urineon 05-15-2019 C Urine Final Report: No growth Normal [facility] Comment on above: Performed By: #### 2 [id number] #### [facility] [employer] [address] [place] [address] BMPon 05-13-2019 Anion gap [Moles/Vol] 14 mmol/L Normal 10-20 [facility] Comment on above: Performed By: #### 2 386906 #### [place] [employer] [facility] [place] [address] Calcium [Mass/Vol] 9.3 mg/dL Normal 8.6-10.3 [facility] Comment on above: Performed By: #### 2 122911 #### [place] [employer] [address] [place] [address] Chloride [Moles/Vol] 102 mmol/L Normal 98-[address] [facility] Comment on above: Performed By: #### 2 858093 #### [place] [employer] [address] [place] [address] CO2 [Moles/Vol] 24.0 mmol/L Normal 21.0-32.0 [facility] Comment on above: Performed By: #### 2 398421 #### [employer] [address] [place] [address] Creatinine [Mass/Vol] 1.1 mg/dL Normal 0.5-1.3 [facility] Comment on above: Performed By: #### 2 113626 #### [place] [employer] [address] [place] [address] Glucose [Mass/Vol] 121 mg/dL High 70-99 [facility] Comment on above: Performed By: #### 2 281361 #### [place] [employer] [address] [place] [address] Potassium [Moles/Vol] 3.3 mmol/L Low 3.5-5.3 [facility] Comment on above: Performed By: #### 2 881171 #### [place] [employer] [address] [place] [address] Sodium [Moles/Vol] 136 mmol/L Normal 136-145 [facility] Comment on above: Performed By: #### 2 505708 #### [place] [employer] [address] [place] [address] Urea nitrogen [Mass/Vol] 11 mg/dL Normal 6-23 [facility] Comment on above: Performed By: #### 2 535418 #### [place] [employer] [address] [place] [address] Urea nitrogen/Creatinine [Mass ratio] 10.0 ratio Normal 5.4-30.0 [facility] Comment on above: Performed By: #### 2 037829 #### [place] [employer] [address] [place] [address] CBC w/ Auto Diffon 9 Erythrocyte distribution width (RBC) [Ratio] 12.8 % Normal 11.5-14.5 [facility] Comment on above: Performed By: #### 2 023276 #### [place] [employer] [address] [place] [address] Hematocrit (Bld) [Volume fraction] 45.0 % Normal 42.0-52.0 [facility] Comment on above: Performed By: #### 2 103027 #### [place] [employer] [address] [place] [address] Hemoglobin (Bld) [Mass/Vol] 15.3 g/dL Normal 13.5-18.0 [facility] Comment on above: Performed By: #### 2 273556 #### [place] [employer] [address] [place] [address] MCH (RBC) [Entitic mass] 29.3 pg Normal 27.0-31.0 [facility] Comment on above: Performed By: #### 2 693312 #### [place] [employer] [address] [place] [address] MCHC (RBC) [Mass/Vol] 34.1 g/dL Normal 33.0-37.0 [facility] Comment on above: Performed By: #### 2 430587 #### [place] [employer] [address] [place] [address] MCV (RBC) [Entitic vol] 86.0 fL Normal 78.0-100.0 [facility] Comment on above: Performed By: #### 2 080507 #### [facility] CaraballoHemo [address] [place] [address] Platelet mean volume (Bld) [Entitic vol] 7.6 fL Normal 7.4-11.0 [facility] Comment on above: Performed By: #### 2 774891 #### [facility] CaraballoHemo [address] [place] [address] Platelets (Bld) [#/Vol] 176 E3/mcL Normal 130-400 [facility] Comment on above: Performed By: #### 2 588035 #### ORALIA CaraballoHemo [facility] [place] [address] RBC (Bld) [#/Vol] 5.23 E6/mcL Normal 3.90-6.10 [facility] Comment on above: Performed By: #### 2 931188 #### ORALIA CaraballoHemo [facility] [place] [address] WBC (Bld) [#/Vol] 9.7 E3/mcL Normal 3.6-11.0 [facility] Comment on above: Performed By: #### 2 999285 #### [facility] CaraballoHemo [facility] [place] [address] CT Abdomen/Pelvis w/o Contra ston 05-13-2019 CT Abdomen/Pelvis w/o Contrast Exam Date/Time: 05/13/2019 16:02 EDT Reason for Exam: kidney stone vs discitis;Other (please specify) Report STUDY: CT Abdomen/Pelvis w/o Contrast; 05/13/2019 4:02 pm INDICATION: Low back pain COMPARISON: None. ACCESSION NUMBER(S): [id number] ORDERING CLINICIAN: Oscar Sidhu TECHNIQUE: Contiguous 3 [...] pm Signed by: Olegario Cross MD Technologist: [facility] MRI Spine Lumbar w/ + w/o Co ntraston 05-13-2019 MRI Spine Lumbar w/ + w/o Contrast Exam Date/Time: 05/13/2019 20:08 EDT Reason for Exam: discitis;Other (please specify) Report STUDY: MRI Spine Lumbar w/ + w/o Contrast; 05/13/2019 8:08 pm INDICATION: Low back pain. COMPARISON: CT abdomen pelvis 05/13/2019 ACCESSION NUMBER(S): [id number] ORDERING CLINICIAN: Oscar Sidhu TECHNIQUE: Multiplanar multisequence [...] by: Dave Escalera MD Technologist: ANETTE Normal [facility] Manual Diffon 05-13-2019 Band form neutrophils/100 WBC (Bld) 1 Normal 0-1 [facility] [facility] Comment on above: Order Comment: Order Added by Discern Expert. Performed By: #### [id number] #### ORALIA [facility] [place] [address] Basophil Man 0 % Normal 0-1 [facility] Comment on above: Order Comment: Order Added by Discern Expert. Performed By: #### [id number] #### ORALIA [facility] [place] [address] Eosinophils/100 WBC (Bld) 0 % Normal 0-5 [facility] Comment on above: Order Comment: Order Added by Discern Expert. Performed By: #### 2 [id number] #### ORALIA [facility] [address] [place] [address] Lymphocytes/100 WBC (Bld) 3 % Low 14-48 [facility] Comment on above: Order Comment: Order Added by Discern Expert. Performed By: #### 2 [id number] #### ORALIA [facility] [address] [place] [id number] Monocyte Man 2 % Normal 1-11 [facility] Comment on above: Order Comment: Order Added by Discern Expert. Performed By: #### 2 [id number] #### ORALIA [facility] [address] [place] [id number] RBC morphology finding Nom (Bld) NORMAL Normal [facility] Comment on above: Order Comment: Order Added by Discern Expert. Performed By: #### 2 [id number] #### ORALIA [facility] [address] [place] [id number] Segs Man 94 % High 37-75 [facility] Comment on above: Order Comment: Order Added by Discern Expert. Performed By: #### 2 [id number] #### ORALIA [facility] [address] [place] [id number] UA Completeon 05-13-2019 Color (U) Yellow Normal Yellow [facility] Comment on above: Order Comment: Strai ght Cath as needed Performed By: #### 8 [id number] #### ORALIA Urinalysis Automated Subsection [facility] [place] [address] Glucose (U) [Mass/Vol] Negative Normal Negative [facility] Comment on above: Order Comment: Strai ght Cath as needed Performed By: #### 8 [id number] #### ORALIA Urinalysis [facility]section [address] [place], [place] [id number] Ketones Ql (U) Negative Normal Negative [facility] Comment on above: Order Comment: Strai ght Cath as needed Performed By: #### 8 [id number] #### ORALAI Urinalysis Automated [facility]section [address] [place], [place] [id number] RBC (U) [#/Vol] 0-3 Normal 0-3 [facility] Comment on above: Order Comment: Strai ght Cath as needed Performed By: #### 8 [id number] #### ORALIA Urinalysis Automated Subsection [facility] [place] [address] UA Blood 1+ Abnormal Negative [facility] Comment on above: Order Comment: Strai ght Cath as needed Performed By: #### 8 [id number] #### ORALIA Urinalysis Automated [facility]section [address] [place] [address] UA Clarity SltCloudy Abnormal Clear [facility] Comment on above: Order Comment: Strai ght Cath as needed Performed By: #### 8 [id number] #### ORALIA Urinalysis Automated Subsection [facility] [place] [address] UA Leuk Est Negative Normal Negative [facility] Comment on above: Order Comment: Strai ght Cath as needed Performed By: #### 8 [id number] #### ORALIA Urinalysis Automated Subsection [facility] [place] [address] UA Nitrite Negative Normal Negative [facility] Comment on above: Order Comment: Strai ght Cath as needed Performed By: #### 8 [id number] #### ORALIA Urinalysis Automated Subsection [facility] [place] [address] UA pH 6.0 Normal 4.6-8.0 [facility] Comment on above: Order Comment: Strai ght Cath as needed Performed By: #### 8 [id number] #### ORALIA Urinalysis Automated Subsection [facility] [place] [address] UA Protein Negative Normal Negative [facility] Comment on above: Order Comment: Strai ght Cath as needed Performed By: #### 8 [id number] #### ORALIA Urinalysis Automated Subsection [facility] [place] [address] UA Spec Grav 1.009 Normal 1.003-1.030 [facility] Comment on above: Order Comment: Strai ght Cath as needed Performed By: #### 8 [id number] #### ORALIA Urinalysis Automated Subsection [facility] [place] [address] UA Urobilinogen Negative Normal [facility] Comment on above: Order [...] within 24 hours. Performed By: #### 8 [id number] #### ORALIA Urinalysis Automated Subsection [facility] [place] [address] UA WBC 0-5 Normal 0-5 [facility] Comment on above: Order Comment: Strai ght Cath as needed Performed By: #### 8 [id number] #### ORALIA Urinalysis Automated Subsection [facility] [place] [address] Urobilinogen Qn (U) Negative Normal Negative [facility] Comment on above: Order Comment: Strai ght Cath as needed Performed By: #### 8 [id number] #### ORALIA Urinalysis Automated Subsection [facility] [place] [address] XR Chest Single Viewon 05-13 XR Chest Single View Exam Date/Time: 05/13/2019 14:43 EDT Reason for Exam: Shortness of breath (SOB) Report STUDY: XR Chest Single View; 05/13/2019 2:43 pm INDICATION: Shortness of breath (SOB). COMPARISON: None. ACCESSION NUMBER(S): [id number] ORDERING CLINICIAN: Oscar Sidhu FINDINGS: BONY STRUCTURES: [...] by: Judah Beauchamp MD Technologist: ENID Normal [facility] eGFRon 05-13-2019 GFR/1.73 sq M predicted among non-blacks MDRD (S/P/Bld) [Vol rate/Area] mL/min/{1.73_m2} Normal [facility] Comment on above: Order Comment: Order added by Discern Expert. Performed By: #### 1 [id number] #### ORALIA [facility] [address] [place] [address] zzplt morphon 05-13-2019 Platelet morphology finding Nom (Bld) NORMAL Normal [facility] Comment on above: Performed By: #### 9 [id number] #### ORALIA [facility] [address] [place] [address] Platelets (Bld) [#/Vol] NORMAL Normal [facility] Comment on above: Performed By: #### 9 [id number] #### ORALIA Rem[facility] [address] [place] [address] Vital Signs Date Time Vital Sign Value Performing Clinician Facility 04-16-2025 21:19-0400 Body temperature 97.9 [degF] Dr. Rogelio Colvin MD Work Phone: [facility] 04-16-2025 21:19-0400 Diastolic blood pressure 76 mm[Hg] Dr. Rogelio Colvin MD Work Phone: [facility] 04-16-2025 21:19-0400 Heart rate 76 /min Dr. Rogelio Colvin MD Work Phone: [facility] 04-16-2025 21:19-0400 Respiratory rate 16 /min Dr. Rogelio Colvin MD Work Phone: [facility] 04-16-2025 21:19-0400 SaO2% (BldA) [Mass fraction] 97 % Dr. Rogelio Colvin MD Work Phone: [facility] 04-16-2025 21:19-0400 Systolic blood pressure 140 mm[Hg] Dr. Rogelio Colvin MD Work Phone: [facility] 04-16-2025 20:05-0400 Body height 187.[address] Rogelio Colvin MD Work Phone: 3(669)673-015782 [place] [address] 04-16-2025 20:05-0400 Body mass index (BMI) [Ratio] 33.3 kg/m2 Dr. Rogelio Colvin MD Work Phone: 1(729)435-590082 [place] [address] 04-16-2025 20:05-0400 Body weight 117.[address] Rogelio Colvin MD Work Phone: 9(652)428-774534 [place] [address] 03-10-2025 11:15-0400 Body temperature 98.4 [degF] Dr. Rogelio Colvin MD Work Phone: 3(586)711-280634 [place] [address] 03-10-2025 11:15-0400 Body weight 115.[address] Rogelio Colvin MD Work Phone: 5(453)499-166834 [place] [address] 03-10-2025 11:15-0400 Diastolic blood pressure 91 mm[Hg] Dr. Rogelio Colvin MD Work Phone: 7(546)557-947234 [place] [address] 03-10-2025 11:15-0400 Heart rate 98 /min Dr. Rogelio Colvin MD Work Phone: 6(439)514-277934 [place] [address] 03-10-2025 11:15-0400 Respiratory rate 16 /min Dr. Rogelio Colvin MD Work Phone: 1(783)024-321434 [place] [address] 03-10-2025 11:15-0400 SaO2% (BldA) [Mass fraction] 97 % Dr. Rogelio Colvin MD Work Phone: 5(128)868-330334 [place] [address] 03-10-2025 11:15-0400 Systolic blood pressure 142 mm[Hg] Dr. Rogelio Colvin MD Work Phone: 4(395)481-687482 [place] [address] 03-04-2025 08:06-0400 Body temperature 97 [degF] Dr. Rogelio Colvin MD Work Phone: 6(771)432-818634 [place] [address] 03-04-2025 08:06-0400 Diastolic blood pressure 88 mm[Hg] Dr. Rogelio Colvin MD Work Phone: 7(967)857-263434 [place] [address] 03-04-2025 08:06-0400 Heart rate 80 /min Dr. Rogelio Colvin MD Work Phone: 4(223)237-458434 [place] [address] 03-04-2025 08:06-0400 Respiratory rate 18 /min Dr. Rogelio Colvin MD Work Phone: 0(099)567-543082 [place] [address] 03-04-2025 08:06-0400 SaO2% (BldA) [Mass fraction] 99 % Dr. Rogelio Colvin MD Work Phone: 6(089)366-042782 [place] [address] 03-04-2025 08:06-0400 Systolic blood pressure 141 mm[Hg] Dr. Rogelio Colvin MD Work Phone: 7(908)818-491934 [place] [address] 03-03-2025 10:19-0400 Body mass index (BMI) [Ratio] 32.3 kg/m2 Dr. Rogelio Colvin MD Work Phone: 6(365)696-671782 [place] [address] 03-03-2025 10:19-0400 Body weight 114.[address] Rogelio Colvin MD Work Phone: 0(890)296-389034 [place] [address] 02-16-2025 15:27-0400 Body temperature 98 [degF] Dr. Rogelio Colvin MD Work Phone: 7(641)940-199782 [place] [address] 02-16-2025 15:27-0400 Body weight 120.[address] Rogelio Colvin MD Work Phone: 0(772)219-291234 [place] [address] 02-16-2025 15:27-0400 Diastolic blood pressure 98 mm[Hg] Dr. Rogelio Colvin MD Work Phone: 5(773)065-258134 [place] [address] 02-16-2025 15:27-0400 Heart rate 72 /min Dr. Rogelio Colvin MD Work Phone: 2(314)525-481682 [place] [address] 02-16-2025 15:27-0400 Respiratory rate 16 /min Dr. Rogelio Colvin MD Work Phone: 5(289)544-355282 [place] [address] 02-16-2025 15:27-0400 SaO2% (BldA) [Mass fraction] 98 % Dr. Rogelio Colvin MD Work Phone: 0(722)681-306282 [place] [address] 02-16-2025 15:27-0400 Systolic blood pressure 156 mm[Hg] Dr. Rogelio Colvin MD Work Phone: 0(914)564-449682 [place] [address] 02-09-2025 16:59-0400 Body temperature 98 [degF] Dr. Rogelio Colvin MD Work Phone: [facility] 02-09-2025 16:59-0400 Diastolic blood pressure 94 mm[Hg] Dr. Rogelio Colvin MD Work Phone: [facility] 02-09-2025 16:59-0400 Heart rate 72 /min Dr. Rogelio Colvin MD Work Phone: 1(856)968-621382 [place] [address] 02-09-2025 16:59-0400 Respiratory rate 15 /min Dr. Rogelio Colvin MD Work Phone: 4(936)975-786282 [place] [address] 02-09-2025 16:59-0400 SaO2% (BldA) [Mass fraction] 97 % Dr. Rogelio Colvin MD Work Phone: 3(778)512-707982 [place] [address] 02-09-2025 16:59-0400 Systolic blood pressure 130 mm[Hg] Dr. Rogelio Colvin MD Work Phone: 7(572)138-579882 [place] [address] 02-09-2025 13:08-0400 Body height 188.[address] Rogelio Colvin MD Work Phone: 2(260)693-898134 [place] [address] 02-09-2025 13:08-0400 Body mass index (BMI) [Ratio] 32.7 kg/m2 Dr. Rogelio Colvin MD Work Phone: 5(011)465-403582 [place] [address] 02-09-2025 13:08-0400 Body weight 115.[address] Rogelio Colvin MD Work Phone: 0(192)695-112682 [place] [address] 02-03-2025 09:53-0400 Body height 188.[address] Rogelio Colvin MD Work Phone: [facility] 02-03-2025 09:53-0400 Body mass index (BMI) [Ratio] 33 kg/m2 Dr. Rogelio Colvin MD Work Phone: [facility] 02-03-2025 09:53-0400 Body weight 117.[address] Rogelio Colvin MD Work Phone: [facility] 01-27-2025 13:43-0400 Body temperature 98 [degF] Dr. Rogelio Colvin MD Work Phone: [facility] 01-27-2025 13:43-0400 Body weight 115.[address] Rogelio Colvin MD Work Phone: 8(945)408-257282 [place] [address] 01-27-2025 13:43-0400 Diastolic blood pressure 91 mm[Hg] Dr. Rogelio Colvin MD Work Phone: 8(566)053-621934 [place] [address] 01-27-2025 13:43-0400 Heart rate 95 /min Dr. Rogelio Colvin MD Work Phone: 1(122)370-054682 [place] [address] 01-27-2025 13:43-0400 Respiratory rate 16 /min Dr. Rogelio Colvin MD Work Phone: 7(768)788-593834 [place] [address] 01-27-2025 13:43-0400 SaO2% (BldA) [Mass fraction] 98 % Dr. Rogelio Colvin MD Work Phone: 4(995)698-953034 [place] [address] 01-27-2025 13:43-0400 Systolic blood pressure 136 mm[Hg] Dr. Rogelio Colvin MD Work Phone: 8(704)759-930034 [place] [address] 01-20-2025 14:39-0400 Body temperature 98.2 [degF] Dr. Rogelio Colvin MD Work Phone: 7(165)080-791634 [place] [address] 01-20-2025 14:39-0400 Diastolic blood pressure 96 mm[Hg] Dr. Rogelio Colvin MD Work Phone: 4(651)243-962282 [place] [address] 01-20-2025 14:39-0400 Heart rate 85 /min Dr. Rogelio Colvin MD Work Phone: 7(397)205-300782 [place] [address] 01-20-2025 14:39-0400 Respiratory rate 17 /min Dr. Rogelio Colvin MD Work Phone: 8(901)101-807182 [place] [address] 01-20-2025 14:39-0400 SaO2% (BldA) [Mass fraction] 93 % Dr. Rogelio Colvin MD Work Phone: 6(775)595-902282 [place] [address] 01-20-2025 14:39-0400 Systolic blood pressure 147 mm[Hg] Dr. Rogelio Colvin MD Work Phone: [facility] 01-19-2025 17:45-0400 Inhaled oxygen flow rate 4 L/min Dr. Rogelio Colvin MD Work Phone: 6(408)181-157382 [place] [address] 01-19-2025 16:09-0400 Body height 188.[address] Rogelio Colvin MD Work Phone: 4(097)066-231482 [place] [address] 01-19-2025 16:09-0400 Body mass index (BMI) [Ratio] 32.7 kg/m2 Dr. Rogelio Colvin MD Work Phone: 7(958)097-460382 [place] [address] 01-19-2025 16:09-0400 Body weight 115.[address] Rogelio Colvin MD Work Phone: 0(396)937-433282 [place] [address] 01-14-2025 10:56-0500 Body weight 114.[address] Rogelio Colvin MD Work Phone: 0(010)111-420334 [place] [address] 01-13-2025 13:20-0500 Body mass index (BMI) [Ratio] 32.5 kg/m2 Dr. Rogelio Colvin MD Work Phone: 8(542)425-840782 [place] [address] 01-02-2025 10:47-0500 Body temperature 98.4 [degF] Dr. Rogelio Colvin MD Work Phone: 1(373)369-535482 [place] [address] 01-02-2025 10:47-0500 Body weight 114.[address] Rogelio Colvin MD Work Phone: 3(536)083-795382 [place] [address] 01-02-2025 10:47-0500 Diastolic blood pressure 87 mm[Hg] Dr. Rogelio Colvin MD Work Phone: 0(564)923-290382 [place] [address] 01-02-2025 10:47-0500 Heart rate 85 /min Dr. Rogelio Colvin MD Work Phone: 8(238)104-708482 [place] [address] 01-02-2025 10:47-0500 Respiratory rate 16 /min Dr. Rogelio Colvin MD Work Phone: 5(243)911-666134 [place] [address] 01-02-2025 10:47-0500 SaO2% (BldA) [Mass fraction] 98 % Dr. Rogelio Colvin MD Work Phone: [facility] 01-02-2025 10:47-0500 Systolic blood pressure 132 mm[Hg] Dr. Rogelio Colvin MD Work Phone: [facility] 11-04-2024 02:15-0500 Body temperature 98.6 [degF] Dr. Rogelio Colvin MD Work Phone: [facility] 11-04-2024 02:15-0500 Diastolic blood pressure 93 mm[Hg] Dr. Rogelio Colvin MD Work Phone: [facility] 11-04-2024 02:15-0500 Heart rate 100 /min Dr. Rogelio Colvin MD Work Phone: [facility] 11-04-2024 02:15-0500 Respiratory rate 18 /min Dr. Rogelio Colvin MD Work Phone: [facility] 11-04-2024 02:15-0500 SaO2% (BldA) [Mass fraction] 95 % Dr. Rogelio Colvin MD Work Phone: [facility] 11-04-2024 02:15-0500 Systolic blood pressure 160 mm[Hg] Dr. Rogelio Colvin MD Work Phone: [facility] 11-03-2024 23:51-0500 Body mass index (BMI) [Ratio] 27.2 kg/m2 Dr. Rogelio Colvin MD Work Phone: [facility] 11-03-2024 23:51-0500 Body weight 96.[address] Rogelio Colvin MD Work Phone: [facility] 10-18-2024 23:18-0500 Body temperature 97.59 [degF] Menyd Tyler DO Work Phone: [facility] 10-18-2024 23:18-0500 Diastolic blood pressure 108 mm[Hg] Mendy Tyler DO Work Phone: [facility] 10-18-2024 23:18-0500 Heart rate 79 /min Mendy Tyler DO Work Phone: [facility] 10-18-2024 23:18-0500 Respiratory rate 16 /min Mendy Tyler DO Work Phone: [facility] 10-18-2024 23:18-0500 SaO2% (BldA) [Mass fraction] 97 % Mendy Tyler DO Work Phone: [facility] 10-18-2024 23:18-0500 Systolic blood pressure 150 mm[Hg] Mendy Tyler DO Work Phone: 0(907)990-332554 [place] [address] 10-18-2024 20:31-0500 Body height 188 cm Mendy Tyler DO Work Phone: 6(445)451-299454 [place] [address] 10-18-2024 20:31-0500 Body mass index (BMI) [Ratio] 32.1 kg/m2 Mendy Tyler DO Work Phone: 3(134)564-114354 [place] [address] 10-18-2024 20:31-0500 Body weight 113.4 kg Mendy Tyler DO Work Phone: 6(538)596-978454 [place] [address] 10-16-2023 11:51-0500 Body temperature 98.2 [degF] Dr. Rogelio Colvin Work Phone: [facility] 10-16-2023 11:51-0500 Body weight 113.[address] Rogelio Colvin Work Phone: [facility] 10-16-2023 11:51-0500 Diastolic blood pressure 81 mm[Hg] Dr. Rogelio Colvin Work Phone: [facility] 10-16-2023 11:51-0500 Heart rate 81 /min Dr. Rogelio Colvin Work Phone: [facility] 10-16-2023 11:51-0500 Respiratory rate 16 /min Dr. Rogelio Colvin Work Phone: [facility] 10-16-2023 11:51-0500 SaO2% (BldA) [Mass fraction] 97 % Dr. Rogelio Colvin Work Phone: [facility] 10-16-2023 11:51-0500 Systolic blood pressure 127 mm[Hg] Dr. Rogelio Colvin Work Phone: [facility] 05-20-2023 20:09-0400 Respiratory rate 18 /min Dr. Rogelio Colvin Work Phone: [facility] 05-20-2023 18:02-0400 Body height 187.[address] Rogelio Colvin Work Phone: [facility] 05-20-2023 18:02-0400 Body mass index (BMI) [Ratio] 29.6 kg/m2 Dr. Rogelio Colvin Work Phone: [facility] 05-20-2023 18:02-0400 Body temperature 96.8 [degF] Dr. Rogelio Colvin Work Phone: [facility] 05-20-2023 18:02-0400 Body weight 104.[address] Rogelio Colvin Work Phone: [facility] 05-20-2023 18:02-0400 Diastolic blood pressure 64 mm[Hg] Dr. Rogelio Colvin Work Phone: [facility] 05-20-2023 18:02-0400 Heart rate 78 /min Dr. Rogelio Colvin Work Phone: [facility] 05-20-2023 18:02-0400 SaO2% (BldA) [Mass fraction] 99 % Dr. Rogelio Colvin Work Phone: [facility] 05-20-2023 18:02-0400 Systolic blood pressure 139 mm[Hg] Dr. Rogelio Colvin Work Phone: [facility] 05-02-2023 10:38-0400 Body temperature 98.2 [degF] Dr. Rogelio Colvin Work Phone: [facility] 05-02-2023 10:38-0400 Body weight 106.[address] Rogelio Colvin Work Phone: [facility] 05-02-2023 10:38-0400 Diastolic blood pressure 90 mm[Hg] Dr. Rogelio Colvin Work Phone: [facility] 05-02-2023 10:38-0400 Heart rate 80 /min Dr. Rogelio Colvin Work Phone: [facility] 05-02-2023 10:38-0400 Respiratory rate 16 /min Dr. Rogelio Colvin Work Phone: [facility] 05-02-2023 10:38-0400 SaO2% (BldA) [Mass fraction] 96 % Dr. Rogelio Colvin Work Phone: [facility] 05-02-2023 10:38-0400 Systolic blood pressure 137 mm[Hg] Dr. Rogelio Colvin Work Phone: [facility] 04-17-2023 08:54-0400 Body height 187.[address] Rogelio Colvin Work Phone: 1(208)832-928982 [place] [address] 04-17-2023 08:54-0400 Body weight 105.[address] Rogelio Colvin Work Phone: [facility] 04-17-2023 08:02-0400 Body mass index (BMI) [Ratio] 29.7 kg/m2 Dr. Rogelio Colvin Work Phone: 5(841)909-886636 [address] 04-06-2023 21:31-0400 Body mass index (BMI) [Ratio] 32.3 kg/m2 Dr. Rogelio Colvin Work Phone: 5(902)025-971782 [place] [address] 04-06-2023 21:31-0400 Body weight 108.[address] Rogelio Colvin Work Phone: [facility] 04-06-2023 21:23-0400 Body height 182.[address] Rogelio Colvin Work Phone: [facility] 04-06-2023 21:23-0400 Body temperature 98 [degF] Dr. Rogelio Colvin Work Phone: [facility] 04-06-2023 21:23-0400 Diastolic blood pressure 112 mm[Hg] Dr. Rogelio Colvin Work Phone: [facility] 04-06-2023 21:23-0400 Heart rate 86 /min Dr. Rogelio Colvin Work Phone: [facility] 04-06-2023 21:23-0400 Respiratory rate 16 /min Dr. Rogelio Colvin Work Phone: [facility] 04-06-2023 21:23-0400 SaO2% (BldA) [Mass fraction] 98 % Dr. Rogelio Colvin Work Phone: [facility] 04-06-2023 21:23-0400 Systolic blood pressure 143 mm[Hg] Dr. Rogelio Colvin Work Phone: [facility] 03-26-2023 14:39-0400 Body weight 105.[address] Rogelio Colvin Work Phone: [facility] 03-26-2023 14:39-0400 Diastolic blood pressure 82 mm[Hg] Dr. Rogelio Colvin Work Phone: [facility] 03-26-2023 14:39-0400 Heart rate 64 /min Dr. Rogelio Colvin Work Phone: [facility] 03-26-2023 14:39-0400 Respiratory rate 16 /min Dr. Rogelio Colvin Work Phone: [facility] 03-26-2023 14:39-0400 SaO2% (BldA) [Mass fraction] 99 % Dr. Rogelio Colvin Work Phone: [facility] 03-26-2023 14:39-0400 Systolic blood pressure 129 mm[Hg] Dr. Rogelio Colvin Work Phone: [facility] 02-13-2023 14:21-0400 Diastolic blood pressure 76 mm[Hg] Dr. Rogelio Colvin Work Phone: [facility] 02-13-2023 14:21-0400 Heart rate 91 /min Dr. Rogelio Colvin Work Phone: [facility] 02-13-2023 14:21-0400 SaO2% (BldA) [Mass fraction] 97 % Dr. Rogelio Colvin Work Phone: [facility] 02-13-2023 14:21-0400 Systolic blood pressure 122 mm[Hg] Dr. Rogelio Colvin Work Phone: [facility] 01-25-2023 11:07-0400 Body height 188.[address] Rogelio Colvin Work Phone: [facility] 01-17-2023 08:28-0500 Body temperature 99.1 [degF] Dr. Rogelio Colvin Work Phone: [facility] 01-17-2023 08:28-0500 Body weight 108.[address] Rogelio Colvin Work Phone: 0(017)943-209282 [place] [address] 01-17-2023 08:28-0500 Diastolic blood pressure 93 mm[Hg] Dr. Rogelio Colvin Work Phone: 1(401)587-109982 [place] [address] 01-17-2023 08:28-0500 Heart rate 80 /min Dr. Rogelio Colvin Work Phone: [facility] 01-17-2023 08:28-0500 Respiratory rate 18 /min Dr. Rogelio Colvin Work Phone: [facility] 01-17-2023 08:28-0500 SaO2% (BldA) [Mass fraction] 99 % Dr. Rogelio Colvin Work Phone: [facility] 01-17-2023 08:28-0500 Systolic blood pressure 134 mm[Hg] Dr. Rogelio Colvin Work Phone: [facility] 01-11-2023 17:00-0500 Respiratory rate 18 /min Dr. Rogelio Colvin Work Phone: [facility] 01-11-2023 15:40-0500 SaO2% (BldA) [Mass fraction] 97 % Dr. Rogelio Colvin Work Phone: [facility] 01-11-2023 15:31-0500 Diastolic blood pressure 94 mm[Hg] Dr. Rogelio Colvin Work Phone: [facility] 01-11-2023 15:31-0500 Systolic blood pressure 138 mm[Hg] Dr. Rogelio Colvin Work Phone: [facility] 01-11-2023 15:10-0500 Heart rate 72 /min Dr. Rogelio Colvin Work Phone: [facility] 01-11-2023 14:00-0500 Body height 188.[address] Rogelio Colvin Work Phone: [facility] 01-11-2023 14:00-0500 Body mass index (BMI) [Ratio] 29.5 kg/m2 Dr. Rogelio Colvin Work Phone: [facility] 01-11-2023 14:00-0500 Body temperature 95.9 [degF] Dr. Rogelio Colvin Work Phone: [facility] 01-11-2023 14:00-0500 Body weight 104.[address] Rogelio Colvin Work Phone: [facility] 01-11-2023 09:51-0500 Body temperature 98.5 [degF] Dr. Rogelio Colvin Work Phone: [facility] 01-11-2023 09:51-0500 Diastolic blood pressure 87 mm[Hg] Dr. Rogelio Colvin Work Phone: [facility] 01-11-2023 09:51-0500 Heart rate 79 /min Dr. Rogelio Colvin Work Phone: [facility] 01-11-2023 09:51-0500 Respiratory rate 14 /min Dr. Rogelio Colvin Work Phone: [facility] 01-11-2023 09:51-0500 SaO2% (BldA) [Mass fraction] 98 % Dr. Rogelio Colvin Work Phone: [facility] 01-11-2023 09:51-0500 Systolic blood pressure 135 mm[Hg] Dr. Rogelio Colvin Work Phone: [facility] 01-10-2023 10:18-0500 Body height 187.[address] Rogelio Colvin Work Phone: [facility] 01-10-2023 10:18-0500 Body weight [address] Rogelio Colvin Work Phone: [facility] 01-09-2023 15:22-0500 Body mass index (BMI) [Ratio] 29.7 kg/m2 Dr. Rogelio Colvin Work Phone: 5([phone])[phone] [place] [address] 01-04-2023 14:36-0500 Body temperature 97.8 [degF] Dr. Rogelio Colvin Work Phone: [facility] 01-04-2023 14:36-0500 Body weight 105.[address] Rogelio Colvin Work Phone: 9(914)[phone] [place] [address] 01-04-2023 14:36-0500 Diastolic blood pressure 97 mm[Hg] Dr. Rogelio Colvin Work Phone: 4(615)[phone] [place] [address] 01-04-2023 14:36-0500 Heart rate 110 /min Dr. Rogelio Colvin Work Phone: 6(748)[phone] [place] [address] 01-04-2023 14:36-0500 Respiratory rate 18 /min Dr. Rogelio Colvin Work Phone: 5(963)[phone] [place] [address] 01-04-2023 14:36-0500 Systolic blood pressure 141 mm[Hg] Dr. Rogelio Colvin Work Phone: 9(412)[phone] [address] 01-04-2023 09:22-0500 Body height 187.[address] Rogelio Colvin Work Phone: [facility] 01-04-2023 09:22-0500 Body mass index (BMI) [Ratio] 30 kg/m2 Dr. Rogelio Colvin Work Phone: 1(636)[phone] [place] [address] 01-04-2023 09:22-0500 Body weight 106.[address] Rogelio Colvin Work Phone: [facility] 12-31-2022 22:06-0500 Diastolic blood pressure 102 mm[Hg] Dr. Rogelio Colvin Work Phone: [facility] 12-31-2022 22:06-0500 Heart rate 80 /min Dr. Rogelio Colvin Work Phone: [facility] 12-31-2022 22:06-0500 Respiratory rate 16 /min Dr. Rogelio Colvin Work Phone: [facility] 12-31-2022 22:06-0500 SaO2% (BldA) [Mass fraction] 98 % Dr. Rogelio Colvin Work Phone: [facility] 12-31-2022 22:06-0500 Systolic blood pressure 143 mm[Hg] Dr. Rogelio Colvin Work Phone: 2([phone] [place] [address] 12-31-2022 17:48-0500 Body height 187.[address] Rogelio Colvin Work Phone: 8(937)[phone] [place] [address] 12-31-2022 17:48-0500 Body mass index (BMI) [Ratio] 32.1 kg/m2 Dr. Rogelio Colvin Work Phone: 5(614)[phone] [place] [address] 12-31-2022 17:48-0500 Body temperature 98.4 [degF] Dr. Rogelio Colvin Work Phone: 4(551)[phone] [place] [address] 12-31-2022 17:48-0500 Body weight 113.[address] Rogelio Colvin Work Phone: [facility] 12-07-2022 08:20-0500 Body temperature 98 [degF] Dr. Rogelio Colvin Work Phone: [facility] 12-07-2022 08:20-0500 Diastolic blood pressure 72 mm[Hg] Dr. Rogelio Colvin Work Phone: [facility] 12-07-2022 08:20-0500 Heart rate 61 /min Dr. Rogelio Colvin Work Phone: [facility] 12-07-2022 08:20-0500 Respiratory rate 16 /min Dr. Rogelio Colvin Work Phone: [facility] 12-07-2022 08:20-0500 SaO2% (BldA) [Mass fraction] 95 % Dr. Rogelio Colvin Work Phone: [facility] 12-07-2022 08:20-0500 Systolic blood pressure 133 mm[Hg] Dr. Rogelio Colvin Work Phone: [facility] 12-06-2022 12:36-0500 Body height 188.[address] Rogelio Colvin Work Phone: [facility] 12-06-2022 12:36-0500 Body mass index (BMI) [Ratio] 32.5 kg/m2 Dr. Rogelio Colvin Work Phone: [facility] 12-06-2022 12:36-0500 Body weight 115.[address] Rogelio Colvin Work Phone: [facility] 12-06-2022 09:01-0500 Body temperature 98.1 [degF] [facility] 12-06-2022 09:01-0500 Diastolic blood pressure 68 mm[Hg] [facility] 12-06-2022 09:01-0500 Heart rate 64 /min [facility] 12-06-2022 09:01-0500 Respiratory rate 18 /min [facility] 12-06-2022 09:01-0500 SaO2% (BldA) [Mass fraction] 96 % [facility] 12-06-2022 09:01-0500 Systolic blood pressure 128 mm[Hg] [facility] 12-06-2022 04:16-0500 Body height 187.96 cm [facility] 12-06-2022 04:16-0500 Body mass index (BMI) [Ratio] 32.6 kg/m2 [facility] 12-06-2022 04:16-0500 Body weight 115.3 kg [facility] Encounters Encounter Date Encounter Type Care Provider Facility Start: 04-16-2025 End: 04-16-2025 Emergency department patient visit Dr. Rogelio Colvin MD Work Phone: -Emergency Department Work Phone: Start: 03-20-2025 End: 03-20-[address] Dung Aguirre MD -[facility] Work Phone: Start: 03-20-2025 End: 03-20-2025 ambulatory Dung Aguirre Facility:[facility] Start: 03-10-2025 End: 03-10-2025 Patient encounter procedure Teena JULES -[facility] Work Phone: Start: 03-10-2025 End: 03-10-2025 ambulatory Rogelio Colvin Facility:[facility] Start: 03-09-2025 End: 03-09-2025 Patient encounter procedure Nadia JULES [facility] Work Phone: Start: 03-09-2025 End: 03-09-2025 ambulatory Nadia Rikki Facility:[facility] Start: 03-04-2025 Non-patient / Non-visit Teena JULES [facility] Start: 03-03-2025 Non-patient / Non-visit Dr. Bryn herrera MD -[facility] Start: 03-02-2025 Non-patient / Non-visit Dr. Bryn herrera MD -[facility] Start: 03-02-2025 ambulatory [facility] Start: 03-02-2025 End: 03-04-2025 Evaluation and management of inpatient Dr. Bryn Mccall MD -Progressive Care Unit Work Phone: Start: 02-16-2025 End: 02-16-[address] Bryn Mccall MD -[facility] Work Phone: Start: 02-16-2025 End: 02-16-20[facility] Start: 02-09-2025 ambulatory [facility] Start: 02-09-2025 Non-patient / Non-visit Dr. Bryn herrera MD -[facility] Start: 02-09-2025 End: 02-09-2025 Emergency department patient visit Dr. Rogelio Colvin MD Work Phone: -Emergency Department Work Phone: Start: 02-03-2025 End: 02-03-2025 Patient encounter procedure Nadia JULES [facility] Work Phone: Start: 02-03-2025 End: 02-03-2025 ambulatory Nadia Jonesk Facility:[facility] Start: 01-27-2025 End: 01-27-2025 Patient encounter procedure Teena JULES -[facility] Work Phone: Start: 01-27-2025 End: 01-27-[address] Rogelio Colvin MD Work Phone: [facility] Work Phone: Start: 01-27-2025 End: 01-27-2025 ambulatory Teena Jacques Facility:[facility] Start: 01-20-2025 Non-patient / Non-visit Teena JULES [facility] Start: 01-19-2025 End: 01-20-2025 ambulatory [facility] Facility:[facility] Start: 01-19-2025 End: 01-20-2025 Evaluation and management of inpatient Dr. Bryn Mccall MD -Progressive Care Unit Work Phone: Start: 01-19-2025 End: 01-20-[address] Rogelio Colvin MD Work Phone: [facility] Work Phone: Start: 01-19-2025 ambulatory Bryn Stefany Facility:[facility] Start: 01-19-2025 Non-patient / Non-visit Dr. Bryn herrera MD -[facility] Start: 01-14-2025 ambulatory [facility] Start: 01-14-2025 Non-patient / Non-visit Dr. Bryn herrera MD -[facility] Start: 01-14-2025 End: 01-14-2025 Admission to same day surgery center Dr. Bryn Mccall MD -Crossbar Switch Adjuster/Special Procedures Work Phone: Start: 01-14-2025 End: 01-14-2025 ambulatory [facility] Facility:[facility] Start: 01-02-2025 End: 01-02-2025 Patient encounter procedure Teena JULES -[facility], [facility] Work Phone: Start: 01-02-2025 End: 01-02-2025 Patient encounter procedure Teena JULES -[facility] Work Phone: Start: 01-02-2025 End: 01-02-2025 ambulatory Teena Jacques Facility:[facility] Start: 01-02-2025 End: 01-02-2025 ambulatory Teena Jacques Facility:[facility] Start: 12-12-2024 ambulatory Rogelio Chi Vinicius [facility] Start: 12-12-2024 Non-patient / Non-visit Dr. Bryn herrera MD -[facility] Start: 12-12-2024 End: 12-12-[address] Rogelio Colvin MD -Cardiovascular Services Work Phone: Start: 12-12-2024 End: 12-12-2024 ambulatory Rogelio Chi Vinicius Facility:[facility] Start: 11-24-2024 ambulatory Rogelio Chi Vinicius [facility] Start: 11-24-2024 Non-patient / Non-visit Dr. Bryn herrera MD -[facility] Start: 11-24-2024 End: 11-24-[address] Bryn Mccall MD -Cardiovascular Services Work Phone: Start: 11-24-2024 End: 11-24-2024 ambulatory Rogelio Chi Vinicius Facility:[facility] Start: 11-03-2024 End: 11-04-2024 Emergency department patient visit Dr. Isrrael Garrett DO -Emergency Department Work Phone: Start: 10-18-2024 End: 10-18-2024 Emergency department patient visit Mendy Tyler DO Work Phone: [facility] Comment on above: Lumbar strain, initi al encounter (Primary Dx) Start: 09-18-2024 End: 09-18-2024 ambulatory Rogelio Chi Vinicius Facility:[facility] Start: 05-02-2024 ambulatory Bryn Mccall [facility] Start: 05-02-2024 End: 05-02-2024 ambulatory Teena Jacques Facility:[facility] Start: 04-29-2024 End: 04-29-2024 Emergency department patient visit Dimas Gill Facility:[facility] Start: 10-16-2023 End: 10-16-[address] Rogelio Colvin Work Phone: [facility] Work Phone: Start: 10-16-2023 End: 10-16-[address] Rogelio Colvin Work Phone: [facility] Work Phone: Start: 08-15-2023 Non-patient / Non-visit Dr. Zachariah Colvin Work Phone: [facility] Start: 08-15-2023 End: 08-15-[address] [facility] Start: 05-20-2023 End: 05-20-2023 Emergency department patient visit Dr. Rogelio Colvin Work Phone: [facility]-Emergency Department Work Phone: Start: 05-02-2023 End: 05-02-[address] Rogelio Colvin Work Phone: [facility] Work Phone: Start: 05-02-2023 End: 05-02-[address] Rogelio Colvin Work Phone: [facility] Vascular Surgery Start: 04-17-2023 Non-patient / Non-visit Dr. Zachariah Colvin Work Phone: [facility] Start: 04-17-2023 End: 04-17-2023 Admission to same day surgery center Dr. Rogelio Colvin Work Phone: [facility]-Crossbar Switch Adjuster/Special Procedures Start: 04-17-2023 End: 04-17-[address] Rogelio Colvin Work Phone: [facility] Work Phone: Start: 04-06-2023 End: 04-06-2023 Emergency department patient visit Dr. Rogelio Colvin Work Phone: [facility]-Emergency Department Start: 04-04-2023 Non-patient / Non-visit Dr. Zachariah Colvin Work Phone: [facility] Start: 04-04-2023 End: 04-04-[address] Rogelio Colvin Work Phone: [facility] Work Phone: Start: 04-04-2023 End: 04-04-[address] [facility] Col[facility] Start: 03-26-2023 End: 03-26-[address] Rogelio Colvin Work Phone: [facility] Vascular Surgery Start: 03-21-2023 Non-patient / Non-visit Dr. Zachariah Colvin Work Phone: [facility] Start: 03-21-2023 End: 03-21-[address] Rogelio Colvin Work Phone: [facility] Work Phone: Start: 03-21-2023 End: 03-21-[address] [facility] Col[facility] Start: 03-06-2023 End: 03-06-[address] Rogelio Colvin Work Phone: [facility] Work Phone: Start: 03-06-2023 End: 03-06-[address] Rogel[facility] Colvin [facility] Start: 02-13-2023 End: 02-13-[address] Rogelio Colvin Work Phone: [facility] Vascular Surgery Start: 01-31-2023 End: 01-31-[address] Rogelio Colvin Work Phone: [facility] Start: 01-17-2023 End: 01-17-[address] Rogelio Colvin Work Phone: [facility] Vascular Surgery Start: 01-17-2023 End: 01-17-[address] Rogelio Colvin Work Phone: [facility] Work Phone: Start: 01-17-2023 End: 01-17-[address] Rogelio Colvin Work Phone: [facility] Start: 01-11-2023 End: 01-11-2023 Emergency department patient visit Dr. Rogelio Colvin Work Phone: [facility]-Emergency Department Start: 01-11-2023 Non-patient / Non-visit Dr. Zachariah Colvin Work Phone: [facility] Start: 01-10-2023 Non-patient / Non-visit Dr. Zachariah Colvin Work Phone: [facility] Start: 01-10-2023 End: 01-10-2023 Non-patient / Non-visit Dr. Rogelio Colvin Work Phone: [facility] Start: 01-09-2023 Non-patient / Non-visit Dr. Zachariah Colvin Work Phone: [facility] Start: 01-09-2023 End: 01-11-2023 Evaluation and management of inpatient Dr. Rogelio Colvin Work Phone: [facility]-Progressive Care Unit Start: 01-04-2023 End: 01-04-[address] Rogelio Colvin Work Phone: [facility] Vascular Surgery Start: 01-04-2023 End: 01-04-[address] Rogelio Colvin Work Phone: [facility] Start: 01-01-2023 Non-patient / Non-visit Dr. Zachariah Colvin Work Phone: [facility] Start: 01-01-2023 End: 01-01-[address] Rogelio Colvin Work Phone: [facility] Work Phone: Start: 01-01-2023 End: 01-01-[address] Rogelio Colvin Work Phone: [facility]-Cardiovascular Services Start: 12-31-2022 End: 12-31-2022 Emergency department patient visit Dr. Rogelio Colvin Work Phone: [facility]-Emergency Department Start: 12-07-2022 Non-patient / Non-visit Dr. Zachariah Colvin Work Phone: [facility] Start: 12-06-2022 Non-patient / Non-visit Dr. Zachariah Colvin Work Phone: [facility] Start: 12-06-2022 End: 12-07-2022 [facility] Start: 12-06-2022 End: 12-07-[address] Rogelio Colvin Work Phone: [facility] Work Phone: Start: 12-04-2022 End: 12-04-2022 Emergency department patient visit DR CJ LEIVA [facility] Procedures Date Procedure Procedure Detail Performing Clinician [...] e, two or three views Dr. Rogelio Covlin Work Phone: Plan of Treatment Date Care Activity Detail Author Start: 05-20-2033 DTaP/Tdap/Td Vaccines (2 - Td or Tdap) DTaP/Tdap/Td Vaccines (2 - Td or Tdap) [facility] Start: 04-16-2025 [facility] Start: 03-04-2025 Patient discharge [facility] Start: 03-03-2025 Bedrest [facility] Start: 03-03-2025 Notification of physician [facility] Start: 03-03-2025 Provision of activity privileges [facility] Start: 03-03-2025 Pulse taking [facility] Start: 03-03-2025 Taking patient vital signs [facility] Start: 03-03-2025 End: 03-03-2025 [facility] Start: 03-03-2025 Elevation of head of bed [facility] Start: 03-03-2025 Crossbar Switch Adjuster Anesthesia (Not Applicable) Crossbar Switch Adjuster Anesthesia (Not Applicable) [facility] Start: 03-02-2025 Ambulation without limitation [facility] Start: 03-02-2025 Assessment of risk of venous thromboembolism [facility] Start: 03-02-2025 Catheterization of vein [facility] Start: 03-02-2025 Insertion of catheter into peripheral vein [facility] Start: 03-02-2025 Measuring intake and output [facility] Start: 03-02-2025 Medication not administered [facility] Start: 03-02-2025 Oxygen therapy [facility] Start: 03-02-2025 Preoperative care [facility] Start: 03-02-2025 Providing care according to standard [facility] Start: 03-02-2025 [facility] Start: 03-02-2025 Admission procedure [facility] Start: 03-02-2025 Following clinical pathway protocol [facility] Start: 02-24-2025 Patient referral [facility] Work Phone: Start: 02-09-2025 [facility] Start: 01-27-2025 Patient referral [facility] Work Phone: Start: 01-20-2025 Patient discharge [facility] Start: 01-19-2025 Following clinical pathway protocol [facility] Start: 01-19-2025 [facility] Start: 01-19-2025 Ambulation without limitation [facility] Start: 01-19-2025 Assessment of risk of venous thromboembolism [facility] Start: 01-19-2025 Bedrest [facility] Start: 01-19-2025 Incentive spirometry [facility] Start: 01-19-2025 Insertion of catheter into peripheral vein [facility] Start: 01-19-2025 Measuring intake and output [facility] Start: 01-19-2025 Notification of physician [facility] Start: 01-19-2025 Oxygen therapy [facility] Start: 01-19-2025 Providing care according to standard [facility] Start: 01-19-2025 Provision of activity privileges [facility] Start: 01-19-2025 Pulse taking [facility] Start: 01-19-2025 Taking patient vital signs [facility] Start: 01-19-2025 End: 01-19-2025 [facility] Start: 01-19-2025 Admission procedure [facility] Start: 01-19-2025 Removal of thrombus Thrombectomy (Not Applicable) [facility] Start: 01-14-2025 Patient discharge [facility] Start: 01-02-2025 Patient referral [facility] Work Phone: Start: 11-04-2024 [facility] Start: 07-13-2024 COVID-19 Vaccine ( season) COVID-19 Vaccine ( season) [facility] Start: 07-13-2024 Influenza vaccination Influenza Vaccine (#1) [facility] Start: 2023 Zoster Vaccines (1 of 2) Zoster Vaccines (1 of 2) [facility] Start: 01-11-2023 Patient discharge [facility] Start: 01-10-2023 Notification of physician [facility] Start: 01-10-2023 Provision of activity privileges [facility] Start: 01-10-2023 Taking patient vital signs [facility] Start: 01-10-2023 Vascular disease risk assessment [facility] Start: 01-10-2023 [facility] Start: 01-09-2023 Following clinical pathway protocol [facility] Start: 01-09-2023 Admission procedure [facility] Start: 01-09-2023 Ambulation without limitation [facility] Start: 01-09-2023 Assessment of risk of venous [facility]boembolism [facility] [place] Start: 01-09-2023 Insertion of catheter into peripheral vein [facility] [place] Start: 01-09-2023 Measuring intake and output [facility] [place] Start: 01-09-2023 Providing care according to standard [facility] [place] Start: 01-09-2023 [facility] [place] Start: 01-09-2023 Patient referral to dietitian [facility] [place] Start: 12-31-2022 US.doppler Lower extremity vein [facility] [place] Start: 12-07-2022 Patient discharge [facility] [place] Start: 12-06-2022 Following clinical pathway protocol [facility] [place] Start: 12-06-2022 Chart related administrative procedure [facility] [place] Start: 12-06-2022 Ambulation without limitation [facility] [place] Start: 12-06-2022 Assessment of risk of venous thromboembolism [facility] [place] Start: 12-06-2022 Incentive spirometry [facility] [place] Start: 12-06-2022 Insertion of catheter into peripheral vein [facility] [place] Start: 12-06-2022 Measuring intake and output [facility] [place] Start: 12-06-2022 Oxygen therapy [facility] [place] Start: 12-06-2022 Providing care according to standard [facility] [place] Start: 12-06-2022 Provision of activity privileges [facility] [place] Start: 12-06-2022 Referral to occupational therapist [facility] [place] Start: 12-06-2022 Referral to service [facility] [place] Start: 12-06-2022 [facility] [place] Start: 12-06-2022 Verification routine [facility] [place] Start: 12-06-2022 Admission procedure [facility] [place] Start: 1991 Hepatitis C screening Hepatitis C Screening [facility] Start: 1974 MMR Vaccines (1 of 1 - Standard series) MMR Vaccines (1 of 1 - Standard series) [facility] Start: 1973 HIV screening HIV Screening [facility] Start: 1973 Lipid panel Lipid Panel [facility] Start: 1973 Screening for malignant neoplasm of colon [facility] Start: 1973 Yearly Adult Physical Yearly Adult Physical [facility] Bilirubin measuremen t, urine [facility] [place] Doppler ultrasonogra phy of aorta [facility] [place] Doppler ultrasonogra phy of aorta [facility] Hemoglobin [Presence ] in Urine [facility] [place] Measurement of keton es in urine using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 1(430) 234-193506-06-2023 Procedure [facility] 01-10-2023 Procedure [facility]03-01-2023 History and physical note Author Dr. Stefany [facility] January 10, 2023 10:49am Note Date/Time January 09, 2023 4:48pm [facility] Medical Records Department [address] [place] [address] History & Physical Exam 01/09/23 1646 MR#: [id number] Acct: [id number] Name: DELTA CHEEK Jr. Rep #:[id number] : 1975 47 From: Teena JULES PCP: Dr. Rogelio Colvin MD Status:ADM I N Location: [place] [address] HPI - General General Date of Admission: 01/09/23 Date of Service: 01/09/23 Chief Complaint: LLE DVT HPI Narrative DELTA CHEEK, is a 47 M who is admitted for heparin bridge in preparation for thrombectomy with possible stenting in the trestle mainternance laborer 01/10/23. Patient reported left leg pain/edema starting [...] Last dose of Xarelto was this morning. [facility] Medical History Hypertension Hypertension Home Medications [...] with thrombectomy possible stenting as planned in trestle mainternance laborer 01/10/23 at 0800. Hold Xarelto. Start full-dose heparin drip. Obtain aPTT every 6 hours for heparin dosing per protocol. No need to stop prior to procedure, will stop heparin once patient is in the trestle mainternance laborer. NPO after midnight. Plan to return patient to PCU following procedure for hemodynamic monitoring andtransition back to Xarelto. Charges/Coding Visit Charges Inpatient E&M: 37080 Init Hosp L1 01/09/23 1721 <Electronically signed by Teena JULES> Cosigner Signature (if applicable): 01/10/23 1049 <Electronically signed by Bryn Mccall MD> CC: JORGE A Reynolds; Dr. Bryn Mccall MD; Dr. Rogelio Colvin MD~ Signed [facility] Work Phone: [phone]) 410-367701-26-[address] Jeffery [facility] December 07, 2022 7:42am Note Date/Time December 07, 2022 7 :38am [facility] Medical Records Department [address] [place] [address] Instructions for Home/Discharge Instructions 12/07/22 0736 MR#: [id number] Acct: [id number] Name: DELTA CHEEK Rep #:[id number] : 1975 47 From: Javed Grimaldo PCP: [...] muscle pain) Qty: 0 0RF Rx Instructions: Tegt-[id number], every 8 hourly for 3 days and [...] CC: Dr. Rogelio Colvin MD ~ Signed [facility] Work Phone: 1([phone]) 808-872901-25-2023 History and physical note Author Dr. Jeffery [facility] December 06, 2022 1:26pm Note Date/Time December 06, 2022 8 :53am [facility] Medical Records Department [address] [place] [address] H&P Exam - Hospitalist 12/06/22 0853 MR#: [id number] Acct: [id number] Name: DELTA CHEEK Rep #:[id number] : 1975 47 From: Javed Grimaldo PCP: Dr. Rogelio Colvin MD Status:ADM I NO Location: [facility] HPI - General General Date of Admission: [...] on Sunday and then he went to [place] ED on 12/04. There is a need [...] a stroke and at the ageof 52. [facility] Medical History Hypertension Home Medications Losartan/Hydrochlorothiazide [...] or ambulate: [facility] On Tylenol, ibuprofen for pain control. [...] code verified. Charges/Coding Visit Charges Inpatient E&M: 54799 Init Hosp L3 12/06/22 1326 <Electronically signed by Javed Jeffery MD> Cosigner Signature (if applicable): CC: Dr. Javed Jeffery MD; Dr. Rogelio Colvin MD~ Signed [facility] Work Phone: 1([phone]) 918-153401-25-2023 Discharge summary Author Jacek Raygoza [facility] December 06, 2022 8:49am Note Date/Time December 06, 2022 8 :49am [facility] Medical Records Department [address] [place] [address] Emergency Department Summary 12/06/22 MR#: [id number] Acct: [id number] Name: DELTA CHEEK Gilberto Rep #:[id number] : 1975 47 From: Jacek Raygoza DO [...] the inability ambulate he presents for reevaluation [facility] Medical History Hypertension Home Medications Losartan/Hydrochlorothiazide [...] MD [Primary Care Provider] - Disposition Disposition: [facility] What to do if you have Problems For any increased pain, shortness of breath, bleeding, nausea or vomiting, chestpain, or any unexpected problems, contact your Primary Care Provider. Call [facility] ([phone]) or report to the closest Emergency Room. Call 911 if necessary. 12/06/22 0849 <Electronically signed by Jacek Raygoza DO> Cosigner Signature (if applicable): CC: Dr. Rogelio Colvin MD ~ Signed [facility] Work Phone: 1([phone]) 681-835108-02-2021 NotePatient Outreach (UROLMN) DELTA CHEEK JR. ([id number]) 1975 M Date Time Provider Department 06/13/21 FRAN ARCHIBALD During your visit today, we recorded the following information about you: Allergies As of Date: 06/13/2021 (No Known Allergies) Date Reviewed: 06/13/2021 Reviewed by: Vee Helton Ma - Fully Assessed Visit Diagnosis:Screening for genitourinary condition [Z13.89] Order(s):URINALYSIS, DIPSTICK ONLY [SQUA] Order #: [id number] URINALYSIS, DIPSTICK ONLY [SQUA] Order #: [id number] Prescriptions as of 06/16/2021 - losartan-hydroCHLOROthiazide (HYZAAR) [...] 06/13/2021 Encounter Status:Closed by EPIC, PRODUSER on 06/16/21[facility] 06-13-2021 NoteHNO ID: [id number] Author: Fran Archibald MD Service: ? Author Type: Physician Type: Progress Notes Filed: 06/13/2021 11:21 AM Note Text: [facility] NEW PATIENT HISTORY AND PHYSICAL EXAM PATIENT INFO: Delta Cheek Jr. 45 year old REFERRING M.D.: Scar Mensah MD ([facility]) [address] [place] [id number] This consult was requested by Scar Mensah MD for an opinion regarding peyronies disease, and my final recommendations will be communicated to the requesting health care provider by way of the shared medical record for internal providers or letter via the [employer] Postal Service for external providers. HISTORY Chief [...] Laterality Date - COLONOSCOP W/ OR W/O [facility] SPEC Colonoscopy - REPAIR FEMORAL HERNIA [...] management of the patie (more content not included)...[facility]. Jeffery [facility] December 07, 2022 7:48am Note Date/Time December 07, 2022 7 :48am [facility] Medical Records Department [address] [place] [address] Discharge Summary 12/07/22 0743 MR#: [id number] Acct: [id number] Name: DELTA CHEEK Rep #:[id number] : 1975 47 From: Javed Grimaldo PCP: Dr. Rogelio Colvin MD Status:ADM I NO Location: [facility] Providers Date of Admission: 12/06/22 Date of [...] or ambulate: [facility] On Tylenol, ibuprofen for pain control. [...] and tramadol and muscle relaxant given from [place] ED. He was given prescription for tizanidine. Patient advised to take rwll-lxw-zuhkgxb ibuprofen 600 mg every 8 hourly for [...] 90.1 H, Lymph % (Auto) 7.4 L, [place] %(Auto) 1.9, Eos % (Auto) 0.0, Baso [...] Clarity Clear, Urine pH 8.0, Ur Specific Antimony 1.015, Urine Protein Negative, Urine Glucose (UA) [...] muscle pain) Qty: 0 0RF Rx Instructions: Pzpf-sxg-bcrdzqz, every 8 hourly for 3 days and [...] Self Care Charges/Coding Visit Charges Inpatient E&M: 60697 Disch Hosp >30min 12/07/22 0748 <Electronically signed by Javed Jeffery MD> Cosigner Signature (if applicable): CC: Dr. Javed Jeffery MD; Dr. Rogelio Colvin MD~ Signed [facility] Work Phone: Evaluation note* Diagnosis Onset Date Resolution Status Intractable low back pain ac amelia Unable to ambulate acute Hypertension chronic [facility] Work Phone: Evaluation note* Diagnosis Onset Date Resolution Status Intractable low back pain re solved Unable to ambulate resolved [facility] Work Phone: Evaluation note* Diagnosis Onset Date Resolution Status Intractable low back pain re solved Unable to ambulate resolved HNP (herniated nucleus pulposus), lumbar acute Lower back injury acute RSD lower limb acute [facility] Work Phone: Evaluation note* Diagnosis Onset Date Resolution Status Intractable low back pain re solved Unable to ambulate resolved HNP (herniated nucleus pulposus), lumbar acute Lower back injury acute RSD lower limb acute DVT (deep venous thrombosis) acute [facility] Work Phone: Evaluation note* Diagnosis Onset Date Resolution Status Intractable low back pain re solved Unable to ambulate resolved HNP (herniated nucleus pulposus), lumbar acute Lower back injury acute RSD lower limb acute DVT (deep venous thrombosis) acute DVT (deep venous thrombosis) acute [facility] Work Phone: Evaluation note* Diagnosis Onset Date Resolution Status Intractable low back pain re solved Unable to ambulate resolved HNP (herniated nucleus pulposus), lumbar acute Lower back injury acute RSD lower limb acute DVT (deep venous thrombosis) acute DVT (deep venous thrombosis) acute DDD (degenerative disc disease), lumbar acute Low back pain noneactive DVT (deep venous thrombosis) acute [facility] Work Phone: Evaluation note* Diagnosis Onset Date Resolution Status Intractable low back pain re solved Unable to ambulate resolved HNP (herniated nucleus pulposus), lumbar acute Lower back injury acute RSD lower limb acute DVT (deep venous thrombosis) acute DVT (deep venous thrombosis) acute DDD (degenerative disc disease), lumbar acute Low back pain noneactive DVT (deep venous thrombosis) acute DVT (deep venous thrombosis) acute [facility] Work Phone: Evaluation note* Diagnosis Onset Date Resolution Status Lower back injury acute Low back pain noneactive [facility] Work Phone: Evaluation note* Diagnosis Onset Date Resolution Status Low back pain noneactive Stenosis of iliac vein acute [facility] Work Phone: Evaluation note* Diagnosis Onset Date Resolution Status Stenosis of iliac vein acute [facility] Work Phone: Evaluation note* Diagnosis Lumbar strain, initial encounter- Primary documented [facility] Work Phone: Hospital Discharge instructions Additional Instructions [...] room, just follow-up with your primary care doctor.[facility] Work Phone: Hospital Discharge instructions* Attachments The following attachments cannot be sent through Care Everywhere. * Back Muscle Strain (Palest[place]) [facility] Work Phone: Hospital Discharge instructions Additional Instructions Ice to the top your head. Tylenol for any pain. If you start developing worsening headache, intractable vomiting or not acting right return. Your CAT scan tonight was unremarkable with no bleeding.[facility] Work Phone: Summary Purpose Family History No [...] Will No December 06 4:19am Power of Registered Nurse Behavioral Health No December 06, 2022 4:19am Advance Directive Response Recorded Date/ Time Living Will No December 06 12:36pm Power of Registered Nurse Behavioral Health No December 06, 2022 12:36pm Advance Directive Response Recorded Date/ Time Name of Medical Power of Registered Nurse Behavioral Health Milvia Snyder December 31, 2022 7:47pm Living Will Yes December 31 023 7:47pm Power of Registered Nurse Behavioral Health Yes December 31, 2022 7:47pm Advance Directive Response Recorded Date/ Time Name of Medical Power of Registered Nurse Behavioral Health Milvia Snyder December 31, 2022 7:47pm Name of Medical Power of Registered Nurse Behavioral Health Meir Snyder January 09, 2023 3:22pm Living Will Yes January 09 023 3:22pm Power of Registered Nurse Behavioral Health Yes January 09, 2023 3:22pm Advance Directive Response Recorded Date/ Time Name of Medical Power of Registered Nurse Behavioral Health Milvia Snyder December 31, 2022 8:47pm Name of Medical Power of Registered Nurse Behavioral Health Meir Snyder January 09, 2023 4:22pm Living Will No January 11, 2023 3:06pm Power of Registered Nurse Behavioral Health No January 11 3:06pm Advance Directive Response Recorded Date/ Time Living Will No January 25, 2023 11:07am Power of Registered Nurse Behavioral Health No January 25 11:07am Name of Medical Power of Registered Nurse Behavioral Health Milvia Snyder December 31, 2022 8:47pm Name of Medical Power of Registered Nurse Behavioral Health Meir Snyder January 09, 2023 4:22pm Advance Directive Response Recorded Date/ Time Name of Medical Power of Registered Nurse Behavioral Health Milvia Snyder December 31, 2022 8:47pm Name of Medical Power of Registered Nurse Behavioral Health Meir Snyder January 09, 2023 4:22pm Name of Medical Power of Registered Nurse Behavioral Health februaryApril 06, 2023 9:33pm Living Will Yes April 06, 2023 9 :33pm Power of Registered Nurse Behavioral Health Yes April 06, 2023 9:33pm Advance Directive Response Recorded Date/ Time Name of Medical Power of Registered Nurse Behavioral Health Milvia Claudio December 31, 2022 8:47pm Name of Medical Power of Registered Nurse Behavioral Health Meir Snyder January 09, 2023 4:22pm Advance Directives No April 17 8:54am Living Will No April 17, 2023 8 :54am Power of Registered Nurse Behavioral Health No April 17, 2023 8:54am Name of Medical Power of Registered Nurse Behavioral Health februaryApril 06, 2023 9:33pm Advance Directive Response Recorded Date/ Time Name of Medical Power of Registered Nurse Behavioral Health Meir Snyder January 09, 2023 4:22pm Advance Directives No April 17 8:54am Living Will No April 17, 2023 8 :54am Power of Registered Nurse Behavioral Health No April 17, 2023 8:54am Name of Medical Power of Registered Nurse Behavioral Health februaryApril 06, 2023 9:33pm Advance Directive Response Recorded Date/ Time Name of Medical Power of Registered Nurse Behavioral Health februaryApril 06, 2023 9:33pm Advance Directives No April 17 8:54am Living Will No May 20, 2023 6 :17pm Power of Registered Nurse Behavioral Health No May 20, 2023 6:17pm Advance Directive Response Recorded Date/ Time Advance Directives No October 18, 2023 10:40am Living Will No October 18 10:40am Power of Registered Nurse Behavioral Health No October 18, 2023 10:40am Advance Directive Response Recorded Date/ Time Living Will No November 04, 2 024 12:51am Power of Registered Nurse Behavioral Health No November 04, 2024 12:51am Advance Directives on File No January 14, 2025 11:56am Living Will Yes January 14, 2025 11:56am Power of Registered Nurse Behavioral Health Yes January 14 11:56am Name of Medical Power of Registered Nurse Behavioral Health FebruaryJanuary 14, 2025 11:56am Advance Directives Yes January 14 11:56am Living Will No January 19, 2025 4:09pm Power of Registered Nurse Behavioral Health No January 19 4:09pm Advance Directive Response Recorded Date/ Time Advance Directives Yes January 26 8:20am Living Will No November 04 12:51am Do you have a Healthcare Pow er of Registered Nurse Behavioral Health? No November 04, 2024 12:51am Advance Directives on File No January 14, 2025 11:56am Living Will Yes January 14, 2025 11:56am Do you have a Healthcare Pow er of Registered Nurse Behavioral Health? Yes January 14, 2025 11:56am Name of Medical Power of Registered Nurse Behavioral Health FebruaryJanuary 14, 2025 11:56am Living Will No January 19, 2025 4:09pm Do you have a Healthcare Pow er of Registered Nurse Behavioral Health? No January 19, 2025 4:09pm Advance Directive Response Recorded Date/ Time Advance Directives Yes January 26 8:20am Living Will No November 04 12:51am Do you have a Healthcare Pow er of Registered Nurse Behavioral Health? No November 04, 2024 12:51am Advance Directives on File No January 14, 2025 11:56am Living Will Yes January 14, 2025 11:56am Do you have a Healthcare Pow er of Registered Nurse Behavioral Health? Yes January 14, 2025 11:56am Name of Medical Power of Registered Nurse Behavioral Health FebruaryJanuary 14, 2025 11:56am Living Will No January 19, 2025 4:09pm Do you have a Healthcare Pow er of Registered Nurse Behavioral Health? No January 19, 2025 4:09pm Living Will Yes February 09, 2025 3:08pm Do you have a Healthcare Pow er of Registered Nurse Behavioral Health? Yes February 09, 2025 3:08pm Name of Medical Power of Registered Nurse Behavioral Health FebruaryFebruary 09, 2025 3:08pm Advance Directive Response Recorded Date/ Time Advance Directives Yes January 26 8:20am Advance Directives on File No January 14, 2025 11:56am Living Will Yes January 14, 2025 11:56am Do you have a Healthcare Power of Registered Nurse Behavioral Health? Yes January 14, 2025 11:56am Name of Medical Power of Registered Nurse Behavioral Health FebruaryJanuary 14, 2025 11:56am Living Will No January 19, 2025 4:09pm Do you have a Healthcare Power of Registered Nurse Behavioral Health? No January 19, 2025 4:09pm Living Will Yes March 02, 2025 4:15pm Do you have a Healthcare Power of Registered Nurse Behavioral Health? Yes March 02, 2025 4:15pm Name of Medical Power of Registered Nurse Behavioral Health februaryMarch 02, 2025 4:15pm Living Will Yes February 09, 2025 3:08pm Do you have a Healthcare Power of Registered Nurse Behavioral Health? Yes February 09, 2025 3:08pm Name of Medical Power of Registered Nurse [facility] February 09, 2025 3:08pm Do you have a Healthcare Power of Registered Nurse Behavioral Health? No April 16, 2025 8:28pm Chief Complaint [...] 2025 3:0 8pm Venogram, 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, in Crossbar Switch Adjuster with March 02, 2025 4:32pm Venogram, 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, in Crossbar Switch Adjuster with March 02, 2025 5:47pm Venogram, 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, in Crossbar Switch Adjuster with March 03, 2025 12:32pm Venogram, 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, in Crossbar Switch Adjuster with March 04, 2025 8:11am LUMBAR STENOSIS, [...] section and content) DATE CREATED AUTHOR 05/15/2019 [facility] DATE CREATED AUTHOR AUTHOR'S ORGANIZ ATION 12/13/2021 [facility] DATE CREATED AUTHOR AUTHOR'S ORGANIZ ATION 04/08/2022 [facility] DATE CREATED AUTHOR AUTHOR'S ORGANIZ ATION 04/11/2022 [facility] DATE CREATED AUTHOR AUTHOR'S ORGANIZ ATION 12/08/2022 [facility] DATE CREATED AUTHOR AUTHOR'S ORGANIZ ATION 12/05/2024 [facility] DATE CREATED AUTHOR AUTHOR'S ORGANIZ ATION 04/21/2025 [facility] Care Teams (unrecognized sec tion and [...] Status: Inactive Member Role Status Dates Dr. Roeglio Colvin MD Primary Care Provider Active Dr. 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 [employer] [facility]. provides no warranty or guarantee of the accuracy or completeness of information in this document.
[2025-05-16 21:31] LABS: Anion Gap 10 (5-15); BUN 12 mg/dL (4-19); BUN/Creat Ratio 12.3 RATIO (10-20); Calcium,Total 9.0 mg/dL (7.6-11.0); Carbon Dioxide 26.6 mmol/L (21.0-32.0); Chloride 100 mmol/L (98-108); Estimated Creatinine Clearance 116.09 ml/min (50-250); Glucose 113 mg/dL (70-99); Potassium 3.7 mmol/L (3.3-5.1)
[2025-05-16 21:51] VITALS: BP 136/97; PULSE 76; RESP 18; TEMP 36.6; O2SAT 99
== END 2025-05-16 21:54 | disposition home or self-care (01) ==
PROVIDERS: Emergency Provider Emergency Medicine; PCP Family Medicine Geriatric Medicine; Visit Provider Emergency Medicine
DX: S09.90XA Unspecified injury of head, initial encounter (principal); R55 Syncope and collapse; M54.9 Dorsalgia, unspecified; G89.29 Other chronic pain; I10 Essential (primary) hypertension; F17.220 Nicotine dependence, chewing tobacco, uncomplicated; Z79.01 Long term (current) use of anticoagulants; Z79.899 Other long term (current) drug therapy; Z86.718 Personal history of other venous thrombosis and embolism; W18.30XA Fall on same level, unspecified, initial encounter
CPT/HCPCS: 70450; 72125; 80048; 85025; 93005; 99283; A4216

== ENCOUNTER → 2025-05-28 | Outpatient (CLI) | payer OTHER, SELFPAY ==
[2025-05-28 10:55] LABS: Hematocrit 42.7 % (40-54); Hemoglobin 14.5 g/dL (13.0-16.5); Immature Granulocytes Count 0.020 X10^3/uL (0.0-0.0); Mean Corp Hgb Conc 34.0 g/dL (32-36); Mean Corpuscular Volume 87.7 fL (80-94); Mean Platelet Vol. 9.2 fl (6.2-12.0); NRBC Flagged by Analyzer 0 % (0-5); Platelet Count 244 K/mm3 (150-450); RBC Distribution Width CV 12.6 % (11.6-14.6); RBC Distribution Width SD 40.4 fl (35.1-43.9); Red Blood Count 4.87 M/mm3 (4.6-6.2); White Blood Count 4.5 K/mm3 (4.4-11.0)
[2025-05-28 12:07] LABS: Cholesterol 249 mg/dL (<=200); Low Density Lipoprotein Calc. 154 mg/dL; Triglycerides 286 mg/dL; Very Low Density Lipoprotein 57 mg/dL (5-40); cholesterol:hdl ratio screen 6.64
[2025-05-28 12:08] LABS: AST(SGOT) 21 U/L (<=37); Alanine Aminotransfer ALT/SGPT 31 U/L (<=46); Albumin, Serum 4.3 g/dL (3.5-5.0); Alkaline Phosphatase 71 U/L (40-129); Anion Gap 15 (5-15); BUN 15 mg/dL (4-19); BUN/Creat Ratio 13.4 RATIO (10-20); Calcium,Total 9.4 mg/dL (7.6-11.0); Carbon Dioxide 23.2 mmol/L (21.0-32.0); Chloride 100 mmol/L (98-108); Globulin 2.8 g/dL (2.2-4.2); Glucose 124 mg/dL (70-99); Potassium 4.0 mmol/L (3.3-5.1)
[2025-05-28 18:34] LABS: Xtra Tube Kwok EXTRA TUBE
--- OUTSIDE RECORDS SUMMARY | 2025-05-28 19:07 | XMS RPT_ITS | CCD ---
Author Organization [facility] Care Team Providers Care Cut Off Sawyer Log Name Role Phone Dr. Rogelio Colvin Chi Primary Care Provider [phone] Dr. Jacek Raygoza Emergency Provider Dr. Javed [...] Provider Dr. Zack Smiley Attending Provider Dr. Michelle Mccall Attending Provider Dr. Michelle Mccall Admit Provider Dr. Michelle Mccall Other Provider Rodolfo JULES, JORGE A Dickinson Attending Provider Dr. Rogelio Colvin Chi Primary Care Provider Dr. Jacek Raygoza Emergency Provider [phone] Javed Jeffery Admit Provider Dr. Javed Jeffery Attending Provider Dr. Javed Jeffery Other Provider Cebul, Dr. Delta D Attending Provider JORGE A Javier Referring Provider [phone] Vinicius, Dr. Rogelio Mccray Referring Provider Dr. Tariq Flores Attending Provider [phone] Dr. Zack Smiley Attending Provider [phone] Michelle Mccall Attending Provider [phone] Michelle Mccall Admit Provider Dr. Michelle Mccall Other Provider Rodolfo JULES PA Teena Attending Provider [phone] Dr. Judah Srinivasan Attending Provider [phone] Dr. Judah Srinivasan Referring Provider [phone] Dr. Michelle Mccall Referring Provider [phone])-[phone] JORGE A Reynolds Attending Provider Vinicius, Dr. Rogelio Mccray Primary Care Provider [phone] JORGE A Reynolds Referring Provider Vinicius, Dr. Rogelio Mccray Primary Care Provider Dr. Michelle Mccall Attending Provider [phone] Vinicius, Dr. Rogelio Mccray Referring Provider Dr. Tariq Flores Attending Provider Vinicius, Dr. Rogelio Mccray Primary Care Provider Vinicius, Dr. Rogelio Mccray Referring Provider Dr. Michelle Mccall Attending Provider [phone] Michelle Mccall Referring Provider [phone] Michelle Mccall Other Provider JORGE A Reynolds Attending Provider Vinicius, Dr. Rogelio Mccray Primary Care Provider Dr. Michelle Mccall Attending Provider [phone] JORGE A Jacques Referring Provider [phone])-[phone] Vinicius, Dr. Rogelio Mccray Referring Provider JORGE A Jacques Attending Provider Generic Provider MD, No Assigned Pcp Primary Car e Provider Unavailable MENDY TYLER Attending Unavailable GENERIC PROVIDER, NO ASSIGNED PCP Primary Care Unavailable Vinicius TRISTAN, Dr. Rogelio Mccray Primary Care Provider [phone] Tami BANKS, Dr. Arcos Attending Provider Tami BANKS, Dr. Arcos Emergency Provider Stefany TRISTAN, Dr. Clemente Attending Provider Stefany TRISTAN, Dr. Clemente Referring Provider Vinicius TRISTAN, Dr. Rogelio Mccray Attending Provider Vinicius TRISTAN, Dr. Rogelio Mccray Referring Provider Georgie JULES, Teena Attending Provider Georgie JULES Teena Referring Provider [phone] Stefany TRISTAN, Dr. Clemente Other Provider [phone] Stefany TRISTAN, Dr. Clemente Admit Provider Nadia Willis Attending Provider Sherice TRISTAN, Dr. Dixno Attending Provider Dr. Michelle Victor DO Emergency Provider Vinicius TRISTAN, Dr. Rogelio Mccray Primary Care Provider [phone] Dr. Rogelio Colvin MD, Chi Referring Provider Dr. Michelle Mccall MD Attending Provider Dr. Michelle Mccall MD Referring Provider Dr. Michelle Victor DO Attending Provider Dr. Michelle Victor DO Referring Provider Nadia Willis Referring Provider Timothy TRISTAN, Dr. Razo Attending Provider Robert TRISTAN, Dr. Norman Emergency Provider Vinicius TRISTAN, Dr. Rogelio Mccray Primary Care Provider [phone] Dr. Michelle Mccall MD Attending Provider Dr. Michelle Mccall MD Referring Provider [phone] Stefany TRISTAN, Dr. Clemente Other Provider Teena Bhatt Attending Provider [phone] Rogelio Colvin MD, Chi Referring Provider [phone] Robert TRISTAN, Dr. Norman Attending Provider Tanner TRISTAN, Michelle J Unavailable [phone] Vinicius TRISTAN, [facility] Primary Care Provider [phone] Vinicius, Rogelio Chi Primary Care Unavailable Stefany, Michelle Attending Unavailable [place], Michelle Referring Unavailable Stefany, Michelle Admitting Unavailable Vinicius, Rogelio Chi Primary Care Unavailable Jacques, Teena Attending Unavailable [place], Michelle Attending Unavailable Vinicius, Rogelio Chi Referring Unavailable Vinicius, Rogelio Chi Primary Care Unavailable Schwiger, Michelle Attending Unavailable Vinicius, Rogelio Chi Primary Care Unavailable [place], Michelle Referring Unavailable [place], Michelle Attending Unavailable [place], Michelle Admitting Unavailable [place], Michelle Consulting Unavailable Vinicius, Rogelio Chi Primary Care Unavailable Vinicius, Rogelio Chi Primary Care Unavailable Stefany, Michelle Referring Unavailable [place], Michelle Consulting Unavailable [place], Michelle Attending Unavailable [place], Michelle Attending Unavailable Vinicius, Rogelio Chi Primary Care Unavailable Vinicius, Rogelio Chi Referring Unavailable [place], Michelle Referring Unavailable Stefany, Michelle Attending Unavailable Vinicius, Rogelio Chi Primary Care Unavailable Rikki, Nadia Attending Unavailable Rikki, Nadia Referring Unavailable Vinicius, Rogelio Chi Primary Care Unavailable Vinicius, Rogelio Chi Primary Care Unavailable Zack Smiley Attending Unavailable Vinicius, Rogelio Chi Primary Care Unavailable Rikki, Nadia Attending Unavailable Vinicius, Rogelio Chi Referring Unavailable Vinicius, Rogelio Chi Primary Care Unavailable [place], Michelle Referring Unavailable [place], Michelle Admitting Unavailable [place], Michelle Consulting Unavailable Jacques, Teena Attending Unavailable Vinicius, Rogelio Chi Primary Care Unavailable Stefany, Michelle Attending Unavailable Stefany, Michelle Referring Unavailable [place], Michelle Consulting Unavailable [place], Michelle Attending Unavailable Schwiger, Michelle Referring Unavailable Vinicius, Rogelio Chi Primary Care Unavailable Georgie, Teena Attending Unavailable Emerson Jones Attending Unavailable Vinicius, Rogelio Chi Primary Care Unavailable Dung Aguirre Attending Unavailable Vinicius, Rogelio Chi Referring Unavailable Vinicius, Rogelio Chi Primary Care Unavailable Jacques, Teena Attending Unavailable Vinicius, Rogelio Chi Referring Unavailable Vinicius, Rogelio Chi Primary Care Unavailable Emerson Jones Attending Unavailable Vinicius, Rogelio Chi Primary Care Unavailable Isrrael Garrett Attending Unavailable Vinicius, Rogelio Chi Primary Care Unavailable Stefany Michelle Referring Unavailable Michelle Mccall Attending Unavailable Vinicius, Rogelio Chi Primary Care Unavailable Jacques, Teena Referring Unavailable Vinicius, Rogelio Chi Primary Care Unavailable Jacques, Teena Attending Unavailable [place], Michelle Referring Unavailable StefanyMichelle Attending Unavailable Vinicius, Rogelio Chi Primary Care Unavailable Vinicius, Rogelio Chi Referring Unavailable Vinicius, Rogelio Chi Primary Care Unavailable Vinicius, Rogelio Chi Attending Unavailable Vinicius, Rogelio Chi Primary Care Unavailable Vinicius, Rogelio Chi Referring Unavailable Vinicius, Rogelio Chi Attending Unavailable Vinicius, Rogelio Chi Referring Unavailable Jacques, Teena Attending Unavailable Vinicius, Rogelio Chi Primary Care Unavailable Vinicius, Rogelio Chi Primary Care Unavailable Jacques, Teena Attending Unavailable Vinicius, Rogelio Chi Referring Unavailable Vinicius, Rogelio Chi Primary Care Unavailable Michelle Mccall Attending Unavailable Michelle Mccall Referring Unavailable Michelle Mccall Admitting Unavailable RUIZ GIFFORD Attending Unavailable TANNER, MICHELLE Referring Unavailable VINICIUS, ROGELIO-CHI Primary Care Unavailable Medications Current Medications Medication [...] once daily Aspirin 81 mg tablet,delayed release (/EC) Active 81 mg PO daily January 02, [...] Discontinued 81 mg PO WITH BREAKFAST 0 0 January 11, 2023 1:00am January 17, 2023 9:35am 0.8 ml enoxaparin sodium 150 mg/ml prefilled syringe (20 sources) Low Molecular Weight Heparin Start: 05-20-2025 enoxaparin (Lovenox) 120 MG/0.8ML solution prefilled syringe 2 times daily. 05/20/2025 Active Start: 03-10-2025 Enoxaparin (Lo venox) 120 mg/0.8 mL syringe Active 120 mg SC TWICE A DAY March 10, 2025 11:17am Start: 01-15-2025 End: 03-10-2025 Enoxaparin (Lovenox) 120 mg/ 0.8 mL syringe Discontinued 120 mg SC Q12H 48 30 1 March 04, 2025 8:55am March 10, 2025 11:18am Start: 03-21-2023 End: 04-17-2024 Enoxaparin (Lovenox) 100 mg/ mL syringe Discontinued 100 mg SC Q12H 180 90 2 April 17, 2023 12:13pm April 17, 2024 9:51am hydroCHLOROthiazide 12.5 mg / valsartan 160 mg oral tablet (15 sources) Thiazide Diuretic, Angiotensin 2 Receptor Lori Start: 05-16-2025 Valsartan-Hydrochlorothiazid e 160-12.5 mg tablet Active 1 {tbl} PO DAILY May 16, 2025 12:00am Start: 02-13-2023 End: 03-10-2025 Valsartan-Hydrochlorothiazid e 160-12.5 mg tablet Discontinued 1 NMA PO [...] PO Q8H 0 December 07, 2022 12:00am [id number], every 8 hourly for 3 days and then as needed as needed for muscle pain methylPREDNISolone (2 sources) Corticosteroid Start: 10-18-2024 methylPREDNISolone (Medrol, Mata,) 4 mg tablets Indications: Lumbar strain, initial encounter Follow schedule on package instructions 1 tablet 10/18/2024 Active pantoprazole 40 mg delayed release oral tablet (8 sources) Proton Pump Inhibitor Start: 12-07-2022 take 40 mg by mouth once daily Pantoprazole Active 40 MG PO DAILY December 07, 2022 1:00am PARoxetine hydrochloride 20 mg oral tablet (16 sources) Serotonin Reuptake Inhibitor Start: 02-13-2023 Paroxetine Hcl 20 mg tablet Active 1 NMA PO DAILY February 13, 2023 12:00am take 1 tablet by rogelio th once daily in the morning PARoxetine (Paxil) 20 MG tablet Take 20 mg by mouth every morning. Active pregabalin 75 mg oral capsule (6 sources) Start: 01-04-2023 take 75 mg by mouth four times daily Pregabalin Active 75 MG PO 4 TIMES DAILY January 04, 2023 1:00am Completed/Discontinued Medications Medication Drug Class(es) Dates Sig (Normalized) Sig (Original) acetaminophen 500 mg oral tablet (3 sources) Start: 03-04-2025 End: 03-10-2025 take 2 tablets by mouth every eight hours Acetaminophen 500 mg Tablet Discontinued 1000 mg PO EVERY 8 HOURS 0 0 March 04, 2025 12:00am March 10, 2025 11:17am Start: 10-18-2024 End: 10-18-2024 take 975 mg by mouth once as needed for pain 975 mg, oral, Once, On 10/18/24 at 2220, For 1 dose, If ordered PRN for pain, nurse is permitted to administer this medication for higher pain scores based on patient preference? Yes apixaban 5 mg oral tablet (16 sources) Factor Xa Inhibitor Start: 12-31-2022 End: 01-04-2023 take 1 tablet by mouth twice daily Apixaban (Eliquis Dvt-Pe Treat 30d Start) 5 mg (74 tabs) tablets,dose pack Discontinued 5 mg PO TWICE A DAY 74 0 December 31, 2022 1:00am January 04, 2023 10:19am baclofen 10 mg oral tablet (2 sources) gamma-Aminobutyric Acid-ergic Agonist Start: 02-16-2025 End: 03-02-2025 take 1 tablet by mouth twice daily Baclofen 10 mg tablet Discontinued 10 mg PO TWICE A DAY February 16, 2025 12:00am March 02, 2025 4:28pm benzonatate 100 mg oral capsule (5 sources) Non-narcotic Antitussive Start: 01-20-2025 End: 01-27-2025 take 1 capsule by mouth three times daily as needed for cough Benzonatate 100 mg Capsule Discontinued 100 mg PO 3 TIMES DAILY NEEDED as needed for Cough 42 14 0 January 20, 2025 12:00am January 27, 2025 1:44pm cephalexin 500 mg oral capsule (7 sources) Cephalosporin Antibacterial Start: 05-20-2023 End: 10-16-2023 take 1 capsule by mouth three times daily Cephalexin 500 mg capsule Discontinued 500 mg PO 3 times daily 21 0 May 20, 2023 12:00am October 16, 2023 12:54pm clopidogrel 75 mg oral tablet (8 sources) [id number] Platelet Inhibitor Start: 10-16-2023 End: 01-02-2025 take 1 tablet by mouth once daily Clopidogrel (Plavix) 75 mg tablet Discontinued 75 mg PO DAILY 90 October 16, 2023 1:00am January 02, 2025 11:40am dicyclomine hydrochloride 20 mg oral tablet (5 sources) Anticholinergic Start: 11-04-2024 End: 01-02-2025 take 1 tablet by mouth three times daily as needed for pain Dicyclomine 20 mg tablet Discontinued 20 mg PO THREE TIMES A DAY as needed for abdominal pain 30 0 November 04, 2024 3:00am January 02, 2025 11:40am docusate sodium 100 mg oral capsule (2 sources) Start: 03-04-2025 End: 03-10-2025 take 1 capsule by mouth twice daily as needed for constipation Docusate Sodium 100 mg Capsule Discontinued 100 mg PO TWICE DAILY NEEDED as needed for Constipation 0 0 March 04, 2025 12:00am March 10, 2025 11:17am Enoxaparin (Lovenox) 120 mg/0.8 mL syringe (5 sources) Start: 01-14-2025 End: 01-15-2025 Enoxaparin (Lovenox) 120 mg/0.8 mL syringe Discontinued 120 mg SC Q12H 48 30 1 January 14, 2025 1:00am January 15, 2025 2:51pm Start: 01-14-2025 End: 01-15-2025 Enoxaparin (Lovenox) 120 mg/ 0.8 mL syringe Discontinued 120 mg SC Q12H 48 30 January 14, 2025 1:00am January 15, 2025 2:51pm gabapentin 300 mg oral capsule (2 sources) Anti-epileptic Agent Start: 02-16-2025 End: 03-02-2025 take 1 capsule by mouth three times daily Gabapentin 300 mg capsule Discontinued 300 mg PO THREE TIMES A DAY February 16, 2025 12:00am March 02, 2025 4:28pm hydroCHLOROthiazide 12.5 mg / losartan potassium 100 mg oral tablet (18 sources) Thiazide Diuretic, Angiotensin 2 Receptor Lori [...] 10/23/2024 Active methocarbamol 750 mg oral tablet (4 sources) Muscle Relaxant Start: 03-04-2025 End: 03-10-2025 Methocarbamol 750 mg Tablet Discontinued 1000 mg PO EVERY 6 HOURS NEEDED as needed for Muscle Spasm 28 7 0 March 04, 2025 8:48am March 10, 2025 11:18am Start: 10-18-2024 End: 10-28-2024 take 1 tablet by mouth twice daily methocarbamol (Robaxin) 500 mg tablet Indications: Lumbar strain, initial encounter Take 1 tablet (500 mg) by mouth 2 times a day for 10 days. 20 tablet 10/18/2024 10/28/2024 Active ondansetron 4 mg disintegrating oral tablet (15 sources) Serotonin-3 Receptor Antagonist Start: 11-04-2024 End: 01-02-2025 take 1 tablet by mouth every six hours as needed for nausea and vomiting Ondansetron 4 mg tablet,disintegrating Discontinued 4 mg PO EVERY 6 HOURS as needed for nausea and vomiting 20 November 04, 2024 1:00am January 02, 2025 [...] 05, 2023 11:00pm May 02, 2023 9:39am oxyCODONE hydrochloride 5 mg oral tablet (16 sources) Opioid Agonist Start: 03-04-2025 End: 04-07-2025 take 5-10 mg by mouth every eight hours as needed for pain Oxycodone 5 mg tablet Discontinued 5 - 10 mg PO EVERY 8 HOURS NEEDED as needed for Pain Score 4-10 42 7 0 March 24, 2025 April 07, 2025 10:18am Postoperative pain Deep vein thrombosis (DVT) of iliac vein Other acute postprocedural pain 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 Start: 02-09-2025 End: 02-23-2025 take 1 tablet by mouth every six hours as needed for pain Oxycodone 5 mg tablet Discontinued 5 mg PO EVERY 6 HOURS as needed for pain 28 7 0 February 16, 2025 February 22, 2025 12:00am February 23, 2025 12:05am Deep vein thrombosis (DVT) of iliac vein Acute embolism and thrombosis of unspecified iliac vein Start: 01-20-2025 End: 01-27-2025 take 1 tablet by mouth every six hours as needed for pain Oxycodone 5 mg Tablet Discontinued 5 mg PO EVERY 6 HOURS NEEDED as needed for Pain Score 4-10 16 4 0 January 20, 2025 January 27, 2025 1:45pm Postoperative pain Other acute postprocedural pain rivaroxaban 20 mg oral tablet (20 sources) Factor Xa Inhibitor Start: 02-13-2023 End: 03-21-2023 take 1 tablet by mouth once daily at dinner Rivaroxaban (Xarelto) 20 mg tablet Discontinued 20 mg PO DAILY 30 4 February 13, 2023 12:00am March 21, 2023 9:06am must administer with evening meal Start: 01-04-2023 End: 02-13-2023 take 22-30 tablets by mouth twice daily, then take 9 tablets by mouth once daily Rivaroxaban (Xarelto) 20 mg tablet Discontinued 15 mg PO TWICE A DAY January 04, 2023 1:00am February 13, 2023 2:30pm blood thinner days 1-21 15 mg bid, days 22-30: 20 mg daily (pt on day 9) tiZANidine 2 mg oral tablet (17 sources) Central alpha-2 Adrenergic Agonist Start: 12-07-2022 End: 01-04-2023 take 2 tablets by mouth every eight hours as needed for muscle spasms Tizanidine 2 mg Tablet Discontinued 4 mg PO EVERY 8 HOURS NEEDED as needed for MUSCLE SPASM 30 December 07, 2022 1:00am January 04, 2023 3:45pm Start: 12-07-2022 End: 01-04-2023 take 4 mg by mouth every eight hours as needed Tizanidine Discontinued 4 MG PO EVERY 8 HOURS NEEDED 30 December 07, 2022 12:00am January 04, 2023 2:45pm valsartan 160 mg oral tablet (15 sources) Angiotensin 2 Receptor Lori Start: 01-04-2023 End: 02-13-2023 take 1 tablet by mouth once daily Valsartan 160 mg tablet Discontinued 160 mg PO DAILY January 04, 2023 1:00am February 13, 2023 2:24pm blood pressure valsartan/hydrochlorothiazide 160/12.5 Problems Active Problems Problem Classification Problem Date Documented Da te Episodic/Chronic Essential hypertension (20 sources) Hypertensive disorder; Translations: [Essential (primary) hypertension] 12-06-2022 Chronic Fracture of upper limb (7 sources) Open fracture finger proximal phalanx; Translations: [Displaced fracture of proximal phalanx of unspecified finger, initial encounter for open fracture] 05-20-2023 Episodic Intestinal infection (5 sources) Viral gastroenteritis; Translations: [Viral intestinal infection, unspecified] 11-12-2024 Episodic Intracranial injury (10 sources) Concussion injury of brain; Translations: [Closed head injury with concussion] 04-06-2023 Episodic Open wounds of extremities (19 sources) Avulsion injury of fingernail; Translations: [Unspecified open wound of unspecified finger with damage to nail, initial encounter] 05-20-2023 Episodic Other aftercare (12 sources) Surgical follow-up; Translations: [Encounter for surgical aftercare following surgery on the circulatory system] 05-02-2023 Episodic Other aftercare (3 sources) Long-term current use of anticoagulant; Translations: [shelter (current) use of anticoagulants] 04-16-2025 Episodic Other congenital anomalies (4 sources) Spinal stenosis of lumbar region; Translations: [Other congenital malformations of spine, not associated with scoliosis] 03-23-2025 Chronic Other connective tissue disease (16 sources) Pain in lower limb; Translations: [Pain in left leg] 12-31-2022 Episodic Other connective tissue disease (9 sources) Pain in left lower limb; Translations: [Pain in left leg] 01-06-2025 Episodic Other diseases of veins and lymphatics (18 sources) Occlusion of iliac vein; Translations: [Compression of vein] 05-02-2023 Episodic Other diseases of veins and lymphatics (5 sources) Compression of vein; Translations: [Compression of vein] Onset: 01-22-2025 05-02-2023 Episodic Other injuries and conditions due to external causes (15 sources) Lower back injury; Translations: [Unspecified injury of lower back, initial encounter] 01-04-2023 Episodic Other injuries and conditions due to external causes (3 sources) Closed injury of head; Translations: [Unspecified injury of head, initial encounter] 04-16-2025 Episodic Other injuries and conditions due to external causes (1 source) Unspecified injury of head, initial encounter; Translations: [Unspecified injury of head, initial encounter] Onset: 04-20-2025 Episodic Other nervous system disorders (18 sources) Unable to walk; Translations: [Difficulty in walking, not elsewhere classified] 12-06-2022 Chronic Other nervous system disorders (8 sources) Difficulty in walking, not elsewhere classified; Translations: [Difficulty in walking] 12-06-2022 Chronic Other nervous system disorders (15 sources) Complex regional pain syndrome of lower limb; Translations: [Complex regional pain syndrome I of unspecified lower limb] 01-04-2023 Chronic Other nervous system disorders (5 sources) Complex regional pain syndrome I of unspecified lower limb; Translations: [Reflex sympathetic dystrophy of the lower limb] 01-04-2023 Chronic Other nervous system disorders (5 sources) Postoperative pain ; Translations: [Other acute [...] Onset: 12-15-2024 12-31-2022 Episodic Pulmonary heart disease (13 sources) Pulmonary embolism; Translations: [Other pulmonary embolism [...] back, initial encounter] Onset: 10-18-2024 10-18-2024 Episodic Substance-related disorders (1 source) History of clinical finding in subject; Translations: [History of marijuana use] 05-16-2025 Chronic Syncope (14 sources) Vasovagal syncope; Translations: [Syncope and collapse] 01-19-2023 Episodic Unclassified (5 sources) M51.36 - Other intervertebral disc degeneration, lumbar region,M54.10 - Radiculopathy, site unspecified Unclassified (4 sources) M51.36 - Other intervertebral disc degeneration, lumbar region,S39.92XA - Unspecified injury of lower back, initial encounter,I87.1 - Compression of vein Unclassified (1 source) Degeneration of intervertebral disc of lumbar region Unclassified (1 source) Radiculopathy Unclassified (1 source) Stenosis of iliac vein Unclassified (1 source) Low back pain, unspecified; Translations: [Low back pain, unspecified] Onset: 03-12-2025 Unclassified (2 sources) New Patient; Translations: [New Patient] Onset: 05-20-2025 Past or Other Problems Problem Classification Problem Date Documented Da te Episodic/Chronic Abdominal pain (1 source) Unspecified abdominal pain; Translations: [Unspecified abdominal pain] Onset: 11-27-2024 Episodic Other aftercare (1 source) Encounter for surgical aftercare following surgery on the circulatory system; Translations: [Encounter for surgical aftercare following surgery on the circulatory system] Onset: 02-04-2025 Episodic Other connective tissue disease (1 source) [...] Test Name Value Interpretation Reference Range Facility Progress Noteon 05-21-2025 Progress Note We want to inform you that your patient's blood pressure was noted to be elevated in our office today. We thank you for trusting us with your patient's health. Last BP: 05/20/25 130/92 05/20/25 150/90 [facility] 36on 05-20-2025 36 Patient informed Normal [facility] 36 LVM [facility] 36 ----- Message from Ruiz Gifford MD sent at 05/20/2025 3:34 PM EDT ----- Let the patient know that I spoke to Dr. Hart and that his office will plan to get him in for further evaluation of his spine. [facility] Office Visiton 05-20-2025 Follow-up visit [id number] Delta Cheek 1975 M Date Provider Department Center 05/20/2025 [id number] BERMUDEZ [facility] None Family History Problem Relation Age of Onset Heart disease Father Other Father Comments: CVA (cerebral vascular accident) Family Status - Relation Status Age at Mother Unknown Father Level of Service:70852 [facility] OFFICE/OUTPATIENT NEW LOW MDM 30 MINUTES Reason for Visit and Comments: New Patient [542] - 2nd opinion/Dr. Mccall placed 2 iliac stents/ recurrent thrombosis L iliac vein [facility] 12 Lead EKGon 05-16-2025 12 Lead EKG [facility] [address] [place] [address] 12 Lead EKG 05/16/252023 MR#: [id number] Acct: [id number] Name: DELTA CHEEK Jr. Rep #: [id number] : 1975 49 From: Zack Smiley MD Attending Dr: Status: DEP ER Ordering Dr: Emerson Jones MD Date: 05/16/25 Location: ED Sex: M C Admitted: Test Reason : WEAKNESS Blood Pressure : */* mmHG Vent. Rate : 77 BPM Atrial Rate : 77 BPM P-R Int : 156 ms QRS Dur : 78 ms QT Int : 356 ms P-R-T Axes : 31 9 8 degrees QTcB Int : 402 ms Normal sinus rhythm Normal ECG Confirmed by ZACK SMILEY MD ([id number]), website/blog editor SARAH GOLDMAN ([id number]) on 05/18/2025 10:55:32 AM Referred By: Confirmed By: ZACK SMILEY MD 05/18/25 1055 Date Zack Smiley MD CC: Dr. Emerson Jones MD; Dr. Rogelio Colvin MD Signed Normal [facility] Absolute lymphocyte countOrd ered By: Emerson Jones on 05-16-2025 Lymphocytes Auto (Unsp spec) [#/Vol] 1.05 10*3/uL 0.83-4.51 [facility] Absolute neutrophil countOrd ered By: Emerson Jones on 05-16-2025 Neutrophils (Bld) [#/Vol] 4.6 10*3/uL 2.0-7.7 [facility] Anion gap in Serum or Plasma Ordered By: Emerson Jones on 05-16-2025 Anion gap [Moles/Vol] 10 mmol/L 5-15 [facility] Automated lymphocyte count a s percentage of total leukocytesOrdered By: Emerson Jones on 05-16-2025 Lymphocytes/100 WBC Auto (Unsp spec) 16.4 % Low 19-41 [facility] BUN/creatinine ratioOrdered By: Emerson Jones on 05-16-2025 Urea nitrogen/Creatinine [Mass ratio] 12.3 mg/mg 10- [facility] Basic Metabolic Profile (BMP )on 05-16-2025 BUN/CRE 12.3 RATIO Normal - [facility] Comment on above: Performed By: #### L 100.0100, L500.2500 ####[facility] [address] [place], [address] Calcium [Mass/Vol] 9.0 mg/dL Normal 7.6-11.0 [facility] Comment on above: Performed By: #### L 100.0100, L500.2500 ####[facility] [address] [place], [address] Chloride [Moles/Vol] 100 mmol/L Normal 98-108 [facility] Comment on above: Performed By: #### L 100.0100, L500.2500 ####[facility] [address] [place], [address] CO2 [Moles/Vol] 26.6 mmol/L Normal 21.0-32.0 [facility] Comment on above: Performed By: #### L 100.0100, L500.2500 ####[facility] [address] [place], [address] Creatinine [Mass/Vol] 0.98 mg/dL Normal 0.70-1.20 [facility] Comment on above: Performed By: #### L 100.0100, L500.2500 ####[facility] [address] [place], [address] ECRCL 116.09 ml/min Normal 50-250 [facility] Comment on above: Performed By: #### L 100.0100, L500.2500 ####[facility] [address] [place], [address] GAP 10 Normal 5-15 [facility] Comment on above: Performed By: #### L 100.0100, L500.2500 ####[facility] [address] [place], [address] GFR/1.73 sq M.predicted among non-blacks MDRD (S/P/Bld) [Vol rate/Area] 94 mL/min/{1.73_m2} Normal >60 [facility] Comment on above: Result Comment: mL/m in/1.73m2 CKD-EPI Creatinine Equation (2020) Performed By: #### L 100.0100, L500.2500 ####[facility] [address] [place], [address] Glucose [Mass/Vol] 113 mg/dL High 70-99 [facility] Comment on above: Performed By: #### L 100.0100, L500.2500 ####[facility] [address] [place], [address] Potassium [Moles/Vol] 3.7 mmol/L Normal 3.3-5.1 [facility] Comment on above: Performed By: #### L 100.0100, L500.2500 ####[facility] [address] [place], [address] Sodium [Moles/Vol] 137 mmol/L Normal 133-145 [facility] Comment on above: Performed By: #### L 100.0100, L500.2500 ####[facility] [address] [place], [address] Urea nitrogen [Mass/Vol] 12 mg/dL Normal 4-19 [facility] Comment on above: Performed By: #### L 100.0100, L500.2500 ####[facility] [address] [place], [address] Basophil percentageOrdered B y: Emerson Jones on 05-16-2025 Basophils/100 WBC (Bld) 0.8 % 0-1 [facility] Brain/Head without Contrasto n 05-16-2025 Brain/Head without Contrast [facility] Imaging Services [address] [place] [address] Brain/Head without Contrast MR#: [id number] Acct: [id number] Name: DELTA CHEEK Jr. Rep #: [id number] : 1975 M 49 From: Tracy Rm nd, MD PCP: Dr. Rogelio Colvin MD Status: REG ER Study: Brain/Head without Contrast Date of Exam: 04/05 Exam# [id number] Ordering Dr: Emerson Jones MD EXAM: BRAIN/HEAD WITHOUT CONTRAST CLINICAL HISTORY: 49 y/o M with HEAD TRAUMA ON LOVENOX. COMPARISON: CT head 04/16/2025. TECHNIQUE: Routine CT imaging of the head without IV contrast. Additional multiplanar reformats were obtained. Dose reduction techniques were used including intermediate exposure control (AEC),iterative reconstruction technique, and/or mA and/or KV dose adjustments based on patient's size. FINDINGS: The ventricles, sulci and cisterns are normal for patient age. There is no evidence of acute intracranial hemorrhage or herniation. There is no midline shift, mass effect, or extra-axial collection. Mild scattered supratentorial white matter hypodensities. The lockett and white matter interfaces are otherwise maintained. There are mild, diffuse, symmetrical, periventricular and subcortical white matter lucencies, a nonspecific finding, which may represent sequela of small vessel disease in a patient of this age. The orbits, visualized paranasal sinuses and mastoids are unremarkable. No acute calvarial fracture or scalp hematoma. CT/Brain/Head without Contrast IMPRESSION: No acute intracranial finding. Reading Location: [id number] CC: Dr. Emerson Jones MD; Dr. Rogelio Colvin MD Caddy Master: Signed Normal [facility] CBC W/Diff, Automatedon 07-0 Absolute Lymph 1.05 X10 3/uL Normal 0.83-4.51 [facility] Comment on above: Performed By: #### L 100.0100, L500.2500 ####[facility] [address] [place], [address] Absolute Neut 4.6 X10 3/uL Normal 2.0-7.7 [facility] Comment on above: Performed By: #### L 100.0100, L500.2500 ####[facility] [address] [place], [address] Basophils/100 WBC (Bld) 0.8 % Normal 0-1 [facility] Comment on above: Performed By: #### L 100.0100, L500.2500 ####[facility] [address] [place], [address] Eosinophils/100 WBC (Bld) 1.6 % Normal 0-5 [facility] Comment on above: Performed By: #### L 100.0100, L500.2500 ####[facility] [address] [place], [address] Erythrocyte distribution width (RBC) [Ratio] 12.5 % Normal 11.6-14.6 [facility] Comment on above: Performed By: #### L 100.0100, L500.2500 ####[facility] [address] [place], [address] Hematocrit (Bld) [Volume fraction] 40.1 % Normal 40-54 [facility] Comment on above: Performed By: #### L 100.0100, L500.2500 ####[facility] [address] [place], [address] Hemoglobin (Bld) [Mass/Vol] 13.6 g/dL Normal 13.0-16.5 [facility] Comment on above: Performed By: #### L 100.0100, L500.2500 ####[facility] [address] [place], [address] IG% 0.300 Normal 0.0-0.9 [facility] Comment on above: Result Comment: IG% - Immature Granulocytes (promyelocytes, myelocytes and metamyelocytes) > 1% indicates that a LEFT SHIFT is Present. Performed By: #### L 100.0100, L500.2500 ####[facility] [address] [place], [address] Lymphocytes/100 WBC (Bld) 16.4 % Low 19-41 [facility] Comment on above: Performed By: #### L 100.0100, L500.2500 ####[facility] [address] [place], [address] MCH (RBC) [Entitic mass] 29.7 pg Normal 27.0-32.0 [facility] Comment on above: Performed By: #### L 100.0100, L500.2500 ####[facility] [address] [place], [address] MCHC (RBC) [Mass/Vol] 33.9 g/dL Normal 32-36 [facility] Comment on above: Performed By: #### L 100.0100, L500.2500 ####[facility] [address] [place], [address] MCV (RBC) [Entitic vol] 87.6 fL Normal 80-94 [facility] Comment on above: Performed By: #### L 100.0100, L500.2500 ####[facility] [address] [place], [address] Monocytes/100 WBC (Bld) 9.4 % Normal 0-10 [facility] Comment on above: Performed By: #### L 100.0100, L500.2500 ####[facility] [address] [place], [address] Neutrophils/100 WBC (Bld) 71.5 % High 47-70 [facility] Comment on above: Performed By: #### L 100.0100, L500.2500 ####[facility] [address] [place], [address] Nucleated RBC (Bld) [#/Vol] 0 10*3/uL Normal 0-5 [facility] Comment on above: Performed By: #### L 100.0100, L500.2500 ####[facility] [address] [place], [address] Platelet mean volume (Bld) [Entitic vol] 8.6 fL Normal 6.2-12.0 [facility] Comment on above: Performed By: #### L 100.0100, L500.2500 ####[facility] [address] [place], [address] Platelets (Bld) [#/Vol] 237 10*3/uL Normal 150-450 [facility] Comment on above: Performed By: #### L 100.0100, L500.2500 ####[facility] [address] [place], [address] RBC (Bld) [#/Vol] 4.58 10*6/uL Low 4.6-6.2 [facility] Comment on above: Performed By: #### L 100.0100, L500.2500 ####[facility] [address] [place], [address] RDW SD 39.8 fl Normal 35.1-43.9 [facility] Comment on above: Performed By: #### L 100.0100, L500.2500 ####[facility] [address] [place], [address] WBC (Bld) [#/Vol] 6.4 10*3/uL Normal 4.4-11.0 [facility] Comment on above: Performed By: #### L 100.0100, L500.2500 ####[facility] [address] [place], [address] Carbon dioxide, total [Moles /volume] in Central venous bloodOrdered By: Emerson Jones on 05-16-2025 CO2 [Moles/Vol] 26.6 mmol/L 21.0-32.0 [facility] Chloride assayOrdered By: Yosi Jones on 05-16-2025 Chloride [Moles/Vol] 100 mmol/L 98-108 [facility] Emergency Department Summary on 05-16-2025 Emergency Department Summary [facility] Medical Records Department [address] [place] [address] Emergency Department Summary 05/16/25 MR#: [id number] Acct: [id number] Name: DELTA CHEEK Jr. Rep #: [id number] : 1975 49 From: Emerson Jones MD PCP: Dr. Rogelio Colvin MD Status:REG ER Location: ED HPI HPI - Fall History of Present Illness Chief Complaint: Fall Informant: patient and spouse/S.O. Occured/Mechanism Occurred: Today Mechanism/Context: Yes same level fall and Yes prodromal Usually ambulates: Without assistance Pain/Injury Pain Location: head and neck Quality of Pain: Sharp Current Severity: Mild Maximum Severity: Mild Associated Symptoms Associated Symptoms: Positive for Loss of consciousness; Negative for Parasthesias, Weakness, Loss of function, Inability to ambulate or Amnesia Narrative Narrative: 49-year-old male history of DVT on Lovenox shots, hypertension anoxic codon for chronic back pain. Today friend is gave him a cannabis or marijuana gummy he did not realize it had to 100 mg cannabis in it. He said he took it later he became lightheaded and had a syncopal episode when he fell on the tile floor in his kitchen he had his head and says having some neck pain also. Denies any chest pain or abdominal pain. No recent vomiting or diarrhea. No fever or melena. Prior similar symptoms: No Recent Illness/Hospitaliz ation: Yes PFSH PFSH Medical [...] Pain Score 4-10 7 days #42 tabs valsartan 160 1 tab PO DAILY 05/16/25 Unknown Hi story mg-hydrochlorothia zide 12.5 mg tablet Allergy/AdvReac Type Severity Reaction Status Date / Time No Known Allergies Allergy Verified 05/16/25 20:05 Family History Father CVA (cerebral vascular accident) Father Heart disease Other Bleeding disorder CAD (coronary artery disease) Hypertension Surgical History Hx of hernia repair History of femoral hernia repair Social History Smoking Status: Current some day smoker tobacco type: smokeless tobacco Smokeless tobacco user: chewing tobacco how long ago did patient quit smokin can every 4-5 days alcohol intake: never ROS ROS ED ROS Narrative Denies recent illness. Chronic back pain. Constitutional Constitutional ED: Denies chills or fever(s) Eyes Eyes: Denies blurry vision ENT ENT ED: Denies ear pain Cardiovascular Cardiovascular: Denies chest pain Respiratory/Chest Respiratory/Chest: Denies cough or dyspnea Gastrointestinal Gastrointestinal: Denies abdominal pain Genitourinary Genitourinary ED: Denies dysuria or hematuria Musculoskeletal Musculoskeletal: Denies arthralgias Integumentary Denies abscess Neurologic Neurologic: Reports headache(s) Psychiatric Psychiatric: Denies anxiety Endocrine Endocrinology: Denies polydipsia Hematologic/Lympha tic Hematologic/Lympha tic: Reports easy bleeding and easy bruising; Denies lymphadenopathy Allergic/Immunolog ic Allergic/Immunolog ic ED: Denies mouth swelling, tongue swelling or urticaria EXAM Physical Exam Narrative Exam Narrative: Well-appearing 49-year-old male. Vital signs stable afebrile. Pulse ox 90% on room air no hypoxia. No distress. at bedside. H EENT exam pupils round react to light. Extra motions are intact. Tenderness to top of his scalp. No contusion hematoma. No laceration. C-spine tender posteriorly. Trachea midline. Back nontender. Multiple tattoos. Lungs clear to auscultation bilaterally. Heart regular rhythm rate about 80 no murmur. Chest wall ribs nontender. Abdomen soft nontender. He does have bruising on his abdomen from Lovenox shots. No peritoneal signs. Pelvic girdle intact. Moving all 4 extremities. Nontender no deformity. Normal range of motion. 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 Normal dorsi plantarflexion. Neurologically he is awake and alert. Answer questions fol (more content not included)... Normal [facility] Eosinophil percentageOrdered By: Emerson Jones on 05-16-2025 Eosinophils/100 WBC (Bld) 1.6 % 0-5 [facility] Erythrocyte distribution wid th ratioOrdered By: Emerson Jones on 05-16-2025 Erythrocyte distribution width (RBC) [Ratio] 12.5 % 11.6-14.6 [facility] Erythrocyte distribution wid th standard deviationOrdered By: Emerson Jones on 05-16-2025 Erythrocyte distribution width (RBC) [Ratio] 39.8 fl 35.1-43.9 [facility] Glomerular filtration rate ( GFR) estimation/1.73 sq m using serum, plasma, or whole bOrdered By: Emerson Jones on 05-16-2025 GFR/1.73 sq M.predicted among non-blacks MDRD (S/P/Bld) [Vol rate/Area] 94 mL/min/{1.73_m2} >60 [facility] Comment on above: mL/min/1.73m2 CKD-EP I Creatinine Equation (2020) Hematocrit Auto (Bld) [Volum e fraction]Ordered By: Emerson Jones on 05-16-2025 Hematocrit (Bld) [Volume fraction] 40.1 % 40-54 [facility] Hemoglobin measurementOrdere d By: Emerson Jones on 05-16-2025 Hemoglobin (Bld) [Mass/Vol] 13.6 g/dL 13.0-16.5 [facility] Immature granulocytes/100 WB C Auto (Bld)Ordered By: Emerson Jones on 05-16-2025 Immature granulocytes/100 WBC (Bld) 0.300 % 0.0-0.9 [facility] Comment on above: IG% - Immature Granu locytes (promyelocytes, myelocytes and metamyelocytes) > 1% indicates that a LEFT SHIFT is Present. MCV (mean corpuscular volume ) determinationOrdered By: Emerson Jones on 05-16-2025 MCV (RBC) [Entitic vol] 87.6 fL 80-94 [facility] Mean corpuscular hemoglobin (MCH) determinationOrdered By: Emerson Jones on 05-16-2025 MCH (RBC) [Entitic mass] 29.7 pg 27.0-32.0 [facility] Mean corpuscular hemoglobin concentration (MCHC) determinationOrdered By: Emerson Jones on 05-16-2025 MCHC (RBC) [Mass/Vol] 33.9 g/dL 32-36 [facility] Mean platelet volume determi nationOrdered By: Emerson Jones on 05-16-2025 Platelet mean volume (Bld) [Entitic vol] 8.6 fL 6.2-12.0 [facility] Monocyte percentageOrdered B y: Emerson Jones on 05-16-2025 Monocytes/100 WBC (Bld) 9.4 % 0-10 [facility] Neutrophil percentageOrdered By: Emerson Jones on 05-16-2025 Neutrophils/100 WBC (Bld) 71.5 % High 47-70 [facility] Nucleated red blood cell per centageOrdered By: Emerson Jones on 05-16-2025 Nucleated RBC/100 WBC (Bld) [Ratio] 0 % 0-5 [facility] Platelet countOrdered By: Yosi Jones on 05-16-2025 Platelets (Bld) [#/Vol] 237 10*3/uL 150-450 [facility] Potassium measurement (mass/ volume)Ordered By: Emerson Jones on 05-16-2025 Potassium (Unsp spec) [Mass/Vol] 3.7 mmol/L 3.3-5.1 [facility] RBC Auto (Bld) [#/Vol]Ordere d By: Emerson Jones on 05-16-2025 RBC (Bld) [#/Vol] 4.58 10*6/uL Low 4.6-6.2 [facility] Serum creatinine measurement (mass/volume)Ordered By: Emerson Jones on 05-16-2025 Creatinine [Mass/Vol] 0.98 mg/dL 0.70-1.20 [facility] Serum glucose measurement (m ass/volume)Ordered By: Emerson Jones on 05-16-2025 Glucose [Mass/Vol] 113 mg/dL High 70-99 [facility] Serum or plasma calcium rosangela urement (mass/volume)Ordered By: Emerson Jones on 05-16-2025 Calcium [Mass/Vol] 9.0 mg/dL 7.6-11.0 [facility] Serum or plasma urea nitroge n measurement (mass/volume)Ordered By: Emerson Jones on 05-16-2025 Urea nitrogen [Mass/Vol] 12 mg/dL 4-19 [facility] Sodium levelOrdered By: Emerson Jones on 05-16-2025 Sodium [Moles/Vol] 137 mmol/L 133-145 [facility] Spine Cervical without Contr ason 05-16-2025 Spine Cervical without Contras [facility] Imaging Services [address] [place], [place] [address] Spine Cervical without Contras MR#: [id number] Acct: [id number] Name: DELTA CHEEK Jr. Rep #: [id number] : 1975 M 49 From: Tracy Rm nd, MD PCP: Dr. Rogelio Colvin MD Status: REG ER Study: Spine Cervical without Contras Date of Exam: 0 05/16/25 Exam# [id number] Ordering Dr: Emerson Jones MD PROCEDURE: SPINE CERVICAL WITHOUT CONTRAS 05/16/2025 REASON FOR EXAM: TRAUMA TECHNIQUE: Cervical spine CT without contrast. Coronal and Sagittal reconstruction series were provided. One or more dose reduction techniques were used (e.g., Automated exposure control, adjustment of the mA and/or kV according to patient size, use of iterative reconstruction technique RADIATION DOSE SUMMARY: DLP: 600 mGycm COMPARISON: None. FINDINGS: Alignment: No traumatic listhesis. Vertebrae: No acute fracture. The vertebral body heights are maintained. Mild multilevel degenerative disc disease. Soft Tissues: No prevertebral hematoma. CT/Spine Cervical without Contras IMPRESSION: NO ACUTE CERVICAL FRACTURE. DEGENERATIVE CHANGES. Reading Location: [facility] CC: Dr. Emerson Jones MD; Dr. Rogelio Colvin MD Caddy Master: Signed Normal [facility] White blood cell (WBC) count Ordered By: Emerson Jones on 05-16-2025 WBC (Bld) [#/Vol] 6.4 10*3/uL 4.4-11.0 [facility] Brain/Head without Contrasto n 04-16-2025 Brain/Head without Contrast [facility] Imaging Services [address] [place] [address] Brain/Head without Contrast MR#: [id number] Acct: [id number] Name: DELTA CHEEK Jr. Rep #: [id number] : 1975 M 49 From: Delta Prakash PCP: Dr. Rogelio Colvin MD Status: REG ER Study: Brain/Head without Contrast Date of Exam: 04/05 Exam# [id number] Ordering Dr: Emerson Jones MD PROCEDURE: BRAIN/HEAD [...] IMPRESSION: No acute intracranial abnormality. Reading Location: [facility] CC: Dr. Emerson Jones MD; Dr. Rogelio Colvin MD Caddy Master: Signed Normal [facility] Emergency Department Summary on 04-16-2025 Emergency Department Summary [facility] Medical Records Department [address] [place] [address] Emergency Department Summary 04/16/25 MR#: [id number] Acct: [id number] Name: DELTA CHEEK JrChristine Rep #: [id number] : 1975 49 From: Emerson Jones MD PCP: Dr. Rogelio Colvin MD Status:REG ER Location: ED HPI History of Present Illness Chief Complaint: Head Injury Informant: patient and spouse/S.O. Onset/Context/Richard ng Onset: Today and Hours Mechanism/Context: Blunt Injury [...] normal respirato (more content not included)... Normal [facility] Orthopedic Visit Reporton Orthopedic Visit Report [facility] [address] [place] [address] OFFICE VISIT Date of Service: 03/20/25 MR#: [id number] Acct: [id number] Name: DELTA CHEEK Jr. Rep #: [id number] : 1975 Provider: Dr. Dung Aguirre MD Age/Sex: 49/M Location: [facility] Status: Signed with Addenda ADDENDUM by Dr. Dung Aguirre MD on 03/23/25 at 1646 Assessment and Plan Assessment and Plan (1) Congenital stenosis of lumbar spine: Status: Acute (2) Other intervertebral disc degeneration, lumbar region with discogenic back pain and lower extremity pain: Status: Acute 03/23/25 1646 Date Dung Aguirre MD cc: Dr. Michelle Mccall MD; Dr. Rogelio Colvin MD * [...] by me, Dr. Dung Aguirre MD 03/20/25 8876. Part of today???s visit was documented by [...] Flores. 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 He continues to stay very active during [...] distress Neurologic: (more content not included)... Normal [facility] MR/BMS.BVSon 03-10-2025 MR/BMS.BVS [facility] Vascular Surgery [address] [place] [address] OFFICE VISIT Date of Service: 03/10/25 MR#: [id number] Acct: [id number] Name: ADIADELTA Gilberto Chan Rep #: [id number] : 1975 Provider: JORGE A Schmitt Age/Sex: 49/M Location: [facility].BVS Status: Signed Intake Vital Signs 01/26/25 08:20 [...] 3-4 WK FU Chief Complaint: Follow Up Qa Consultant Required: No Is patient in pain?: Yes [...] no ac (more content not included)... Normal [facility] Spine Lumbar (Routine)on Spine Lumbar (Routine) [facility] Imaging Services [address] [place] [address] Spine Lumbar (Routine) MR#: [id number] Acct: [id number] Name: DELTA CHEEK Rep #: [id number] : 1975 M 49 From: Eugenio Euceda MD PCP: Dr. Rogelio Colvin MD Status: REG CLI Study: Spine Lumbar (Routine) Date of Exam: 03/09/25 Exam# [id number] Ordering Dr: Nadia Brandt PROCEDURE: SPINE LUMBAR [...] 0.3 by 0.7 cm, axial T2 image . There is moderate right mild left lateral [...] JORGE A Bauman; Dr. Rogelio Colvin MD Caddy Master: Signed Normal [facility] Activated partial thrombopla stin time (aPTT) in platelet poor plasma by coagulation aOrdered By: Michelle Mccall on 03-04-2025 aPTT Coag (PPP) [Time] 63.9 s High 24.1-36.2 [facility] Partial Thromboplast Timeon 03-04-2025 aPTT Coag (Bld) [Time] 63.9 s High 24.1-36.2 [facility] Comment on above: Order Comment: Comme nts: heparin gtt Performed By: #### L 300.4310 ####[facility] [address] [place], [address] Absolute lymphocyte countOrd ered By: Michelle Mccall on 03-03-2025 Lymphocytes Auto (Unsp spec) [#/Vol] 1.31 10*3/uL 0.83-4.51 [facility] Absolute neutrophil countOrd ered By: Michelle Mccall on 03-03-2025 Neutrophils (Bld) [#/Vol] 2.1 10*3/uL 2.0-7.7 [facility] Anion gap in Serum or Plasma Ordered By: Michelle Mccall on 03-03-2025 Anion gap [Moles/Vol] 10 mmol/L 5- [facility] Automated lymphocyte count a s percentage of total leukocytesOrdered By: Michelle Mccall on 03-03-2025 Lymphocytes/100 WBC Auto (Unsp spec) 33.1 % 19- [facility] BUN/creatinine ratioOrdered By: Michelle Mccall on 03-03-2025 Urea nitrogen/Creatinine [Mass ratio] 13.1 mg/mg - [facility] Basic Metabolic Profile (BMP )on 03-03-2025 BUN/CRE 13.1 RATIO Normal - [facility] Comment on above: Performed By: #### L 500.2500, L100.0500 #### [facility] Laboratory [address] [place], [address] Calcium [Mass/Vol] 9.1 mg/dL Normal 7.6-11.0 [facility] Comment on above: Performed By: #### L 500.2500, L100.0500 #### [facility] [address] [place], [address] Chloride [Moles/Vol] 104 mmol/L Normal 98-108 [facility] Comment on above: Performed By: #### L 500.2500, L100.0500 #### [facility] [address] [place], [address] CO2 [Moles/Vol] 26.1 mmol/L Normal 21.0-32.0 [facility] Comment on above: Performed By: #### L 500.2500, L100.0500 #### [facility] [address] [place], [address] Creatinine [Mass/Vol] 0.94 mg/dL Normal 0.70-1.20 [facility] Comment on above: Performed By: #### L 500.2500, L100.0500 #### [facility] [address] [place], [address] ECRCL 125.08 ml/min Normal 50-250 [facility] Comment on above: Performed By: #### L 500.2500, L100.0500 #### [facility] [address] [place], [address] GAP 10 Normal 5-15 [facility] Comment on above: Performed By: #### L 500.2500, L100.0500 #### [facility] [address] [place], [address] GFR/1.73 sq M.predicted among non-blacks MDRD (S/P/Bld) [Vol rate/Area] 98 mL/min/{1.73_m2} Normal >60 [facility] Comment on above: Result Comment: mL/m in/1.73m2 CKD-EPI Creatinine Equation (2020) Performed By: #### L 500.2500, L100.0500 #### [facility] [address] [place], [address] Glucose [Mass/Vol] 99 mg/dL Normal 70-99 [facility] Comment on above: Performed By: #### L 500.2500, L100.0500 #### [facility] [address] [place], [address] Potassium [Moles/Vol] 3.9 mmol/L Normal 3.3-5.1 [facility] Comment on above: Performed By: #### L 500.2500, L100.0500 #### [facility] [address] [place], [address] Sodium [Moles/Vol] 140 mmol/L Normal 133-145 [facility] Comment on above: Performed By: #### L 500.2500, L100.0500 #### [facility] [address] [place], [address] Urea nitrogen [Mass/Vol] 12 mg/dL Normal 4-19 [facility] Comment on above: Performed By: #### L 500.2500, L100.0500 #### [facility] [address] [place], [address] Basophil percentageOrdered B y: Michelle Mccall on 03-03-2025 Basophils/100 WBC (Bld) 1.0 % 0-1 [facility] CBC W/Diff, Automatedon 02-11 Absolute Lymph 1.31 X10 3/uL Normal 0.83-4.51 [facility] Comment on above: Performed By: #### L 500.2500, L100.0500 #### [facility] [address] [place], [address] Absolute Neut 2.1 X10 3/uL Normal 2.0-7.7 [facility] Comment on above: Performed By: #### L 500.2500, L100.0500 #### [facility] [address] [place], [address] Basophils/100 WBC (Bld) 1.0 % Normal 0-1 [facility] Comment on above: Performed By: #### L 500.2500, L100.0500 #### [facility] [address] [place], [address] Eosinophils/100 WBC (Bld) 1.5 % Normal 0-5 [facility] Comment on above: Performed By: #### L 500.2500, L100.0500 #### [facility] [address] [place], [address] Erythrocyte distribution width (RBC) [Ratio] 12.3 % Normal 11.6-14.6 [facility] Comment on above: Performed By: #### L 500.2500, L100.0500 #### [facility] [address] [place], [address] Hematocrit (Bld) [Volume fraction] 38.6 % Low 40-54 [facility] Comment on above: Performed By: #### L 500.2500, L100.0500 #### [facility] [address] [place], [address] Hemoglobin (Bld) [Mass/Vol] 13.0 g/dL Normal 13.0-16.5 [facility] Comment on above: Performed By: #### L 500.2500, L100.0500 #### [facility] [address] [place], [address] IG% 0.300 Normal 0.0-0.9 [facility] Comment on above: Result Comment: IG% - Immature Granulocytes (promyelocytes, myelocytes and metamyelocytes) > 1% indicates that a LEFT SHIFT is Present. Performed By: #### L 500.2500, L100.0500 #### [facility] [address] [place], [address] Lymphocytes/100 WBC (Bld) 33.1 % Normal 19-41 [facility] Comment on above: Performed By: #### L 500.2500, L100.0500 #### [facility] [address] [place], [address] MCH (RBC) [Entitic mass] 29.3 pg Normal 27.0-32.0 [facility] Comment on above: Performed By: #### L 500.2500, L100.0500 #### [facility] [address] [place], [address] MCHC (RBC) [Mass/Vol] 33.7 g/dL Normal 32-36 [facility] Comment on above: Performed By: #### L 500.2500, L100.0500 #### [facility] [address] [place], [address] MCV (RBC) [Entitic vol] 87.1 fL Normal 80-94 [facility] Comment on above: Performed By: #### L 500.2500, L100.0500 #### [facility] [address] [place], [address] Monocytes/100 WBC (Bld) 10.9 % High 0-10 [facility] Comment on above: Performed By: #### L 500.2500, L100.0500 #### [facility] [address] [place], [address] Neutrophils/100 WBC (Bld) 53.2 % Normal 47-70 [facility] Comment on above: Performed By: #### L 500.2500, L100.0500 #### [facility] [address] [place], [address] Nucleated RBC (Bld) [#/Vol] 0 10*3/uL Normal 0-5 [facility] Comment on above: Performed By: #### L 500.2500, L100.0500 #### [facility] [address] [place], [address] Platelet mean volume (Bld) [Entitic vol] 9.1 fL Normal 6.2-12.0 [facility] Comment on above: Performed By: #### L 500.2500, L100.0500 #### [facility] [address] [place], [address] Platelets (Bld) [#/Vol] 210 10*3/uL Normal 150-450 [facility] Comment on above: Performed By: #### L 500.2500, L100.0500 #### [facility] [address] [place], [address] RBC (Bld) [#/Vol] 4.43 10*6/uL Low 4.6-6.2 [facility] Comment on above: Performed By: #### L 500.2500, L100.0500 #### [facility] [address] [place], [address] RDW SD 39.3 fl Normal 35.1-43.9 [facility] Comment on above: Performed By: #### L 500.2500, L100.0500 #### [facility] [address] [place], [address] WBC (Bld) [#/Vol] 4.0 10*3/uL Low 4.4-11.0 [facility] Comment on above: Performed By: #### L 500.2500, L100.0500 #### [facility] [address] [place], [address] Carbon dioxide, total [Moles /volume] in Central venous bloodOrdered By: Michelle Mccall on 03-03-2025 CO2 [Moles/Vol] 26.1 mmol/L 21.0-32.0 [facility] Chloride assayOrdered By: Bonifacio Mccall on 03-03-2025 Chloride [Moles/Vol] 104 mmol/L 98-108 [facility] Eosinophil percentageOrdered By: Michelle Mccall on 03-03-2025 Eosinophils/100 WBC (Bld) 1.5 % 0-5 [facility] Erythrocyte distribution wid th ratioOrdered By: Michelle Mccall on 03-03-2025 Erythrocyte distribution width (RBC) [Ratio] 12.3 % 11.6-14.6 [facility] Erythrocyte distribution wid th standard deviationOrdered By: Michelle Mccall on 03-03-2025 Erythrocyte distribution width (RBC) [Ratio] 39.3 fl 35.1-43.9 [facility] Glomerular filtration rate ( GFR) estimation/1.73 sq m using serum, plasma, or whole bOrdered By: Michelle Mccall on 03-03-2025 GFR/1.73 sq M.predicted among non-blacks MDRD (S/P/Bld) [Vol rate/Area] 98 mL/min/{1.73_m2} >60 [facility] Comment on above: mL/min/1.73m2 CKD-EP I Creatinine Equation (2020) Hematocrit Auto (Bld) [Volum e fraction]Ordered By: Michelle Mccall on 03-03-2025 Hematocrit (Bld) [Volume fraction] 38.6 % Low 40-54 [facility] Hemoglobin measurementOrdere d By: Michelle Mccall on 03-03-2025 Hemoglobin (Bld) [Mass/Vol] 13.0 g/dL 13.0-16.5 [facility] Immature granulocytes/100 WB C Auto (Bld)Ordered By: Michelle Mccall on 03-03-2025 Immature granulocytes/100 WBC (Bld) 0.300 % 0.0-0.9 [facility] Comment on above: IG% - Immature Granu locytes (promyelocytes, myelocytes and metamyelocytes) > 1% indicates that a LEFT SHIFT is Present. MCV (mean corpuscular volume ) determinationOrdered By: Michelle Mccall on 03-03-2025 MCV (RBC) [Entitic vol] 87.1 fL 80-94 [facility] MR/POSTOP.ANEon 03-03-2025 MR/POSTOP.ANE [facility] Medical Records Department [address] [place] [address] Anesthesia Postop Eval I 03/03/25 1305 MR#: [id number] Acct: [id number] Name: DELTA CHEEK Jr. Rep #: [id number] : 1975 49 From: Hossein Cheek CRNA PCP: Dr. Rogelio Colvin MD Status:ADM IN Y Race: C Location: [place] [address] Anesthesia: Postop Eval I Current Vital Signs [...] CRNA Cosigner Signature: Date CC: Signed Normal [facility] MR/IXMRVTAN2mn 03-03-2025 [facility] Medical Records Department [address] [place] [address] Anesthesia Postop Eval II 03/03/252017 MR#: [id number] Acct: [id number] Name: DELTA CHEEK Jr. Rep #: [id number] : 1975 49 From: Andrew Carranza MD PCP: Dr. Rogelio Colvin MD Status:ADM IN Y Race: C Location: [place] [address] Anesthesia Postop Eval I Sum Postop Eval Completion status Anesthesia document: Postop Eval 1 completed: Yes Anesthesia Postop Eval I Summary Anesthesia Postop Eval I Summary: Anesthesia Postop Eval I: Assessment Summary Airway patent Yes 03/03/25 13:05 ENVIRONMENTAL [email or web address].PKEL Spontaneous unlabored Yes 03/03/25 13:05 ENVIRONMENTAL SAMPLER.PKAYDIN respirations Mental status Awake,Calm 03/03/25 13:05 ENVIRONMENTAL SAMPLER.PKEL nausea No 03/03/25 13:05 ENVIRONMENTAL SAMPLER.PKEL Vomiting No 03/03/25 13:05 ENVIRONMENTAL SAMPLER.PKEL Anesthesia Postop Eval I: Fluid Summary Crystalloid volume administer 1,100 03/03/25 13:05 ENVIRONMENTAL SAMPLER.PKEL (ml) Colloids volume administered ( ml) Blood Product volume administered (ml) Total IV fluid infused 1,100 03/03/25 13:05 ENVIRONMENTAL [email or web address].PKEL Anesthesia Postop Eval I: Summary Notes Anesthesia Complication No 03/03/25 13:05 ENVIRONMENTAL [email or web address].PKEL Anesthesia Complication Comment: Post-operative progress note Anesthesia: Postop Eval II Evaluation Mental status: Awake and Calm Pain Level: 1 nausea: No Vomiting: No Complications Anesthesia Complication: No 03/03/252017 Date Andrew Miller Signature: Date CC: Signed Normal [facility] Mean corpuscular hemoglobin (MCH) determinationOrdered By: Michelle Mccall on 03-03-2025 MCH (RBC) [Entitic mass] 29.3 pg 27.0-32.0 [facility] Mean corpuscular hemoglobin concentration (MCHC) determinationOrdered By: Michelle Mccall on 03-03-2025 MCHC (RBC) [Mass/Vol] 33.7 g/dL 32-36 [facility] Mean platelet volume determi nationOrdered By: Michelle Mccall on 03-03-2025 Platelet mean volume (Bld) [Entitic vol] 9.1 fL 6.2-12.0 [facility] Monocyte percentageOrdered B y: Michelle Mccall on 03-03-2025 Monocytes/100 WBC (Bld) 10.9 % High 0-10 [facility] Neutrophil percentageOrdered By: Michelle Mccall on 03-03-2025 Neutrophils/100 WBC (Bld) 53.2 % 47-70 [facility] Nucleated red blood cell per centageOrdered By: Michelle Mccall on 03-03-2025 Nucleated RBC/100 WBC (Bld) [Ratio] 0 % 0-5 [facility] Operative Reporton 04-22-202 5 Operative Report [facility] Medical Records Department [address] [place] [address] Operative Report 03/03/25 1232 MR#: [id number] Acct: [id number] Name: DELTA CHEEK Jr. Rep #: [id number] : 1975 49 From: Michelle Mccall MD PCP: Dr. 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 [...] the micropuncture sheath exchanged for a 10 Anguillan sheath. Through the 10 Anguillan sheath the Bentson wire was navigated through [...] significant thrombus or stenosis. Next a Bard Joice 16 x 40 angioplasty balloon was advanced centered on the external iliac vein stenosis and inflated for multiple inflations. This was then withdrawn and a [place] XXL 18 x 40 angioplasty balloon was [...] PCU fo (more content not included)... Normal [facility] Partial Thromboplast Timeon 03-03-2025 aPTT Coag (Bld) [Time] 44.6 s High 24.1-36.2 [facility] Comment on above: Performed By: #### L 500.2500, L100.0500 #### [facility] Laboratory [address] [place], [address] aPTT Coag (Bld) [Time] 49.4 s High 24.1-36.2 [facility] Comment on above: Order Comment: Comme nts: heparin gtt Performed By: #### L 300.4310 #### [facility] Laboratory [address] [place], [address] aPTT Coag (Bld) [Time] 42.5 s High 24.1-36.2 [facility] Comment on above: Performed By: #### L 300.4310 ####[facility] [id number] [place], [address] aPTT Coag (Bld) [Time] 43.8 s High 24.1-36.2 [facility] Comment on above: Order Comment: Comme nts: heparin gtt Performed By: #### L 300.4310 #### [facility] Laboratory [address] [place], [address] Platelet countOrdered By: Bonifacio Mccall on 03-03-2025 Platelets (Bld) [#/Vol] 210 10*3/uL 150-450 [facility] Potassium measurement (mass/ volume)Ordered By: Michelle Mccall on 03-03-2025 Potassium (Unsp spec) [Mass/Vol] 3.9 mmol/L 3.3-5.1 [facility] RBC Auto (Bld) [#/Vol]Ordere d By: Michelel Mccall on 03-03-2025 RBC (Bld) [#/Vol] 4.43 10*6/uL Low 4.6-6.2 [facility] Serum creatinine measurement (mass/volume)Ordered By: Michelle Mccall on 03-03-2025 Creatinine [Mass/Vol] 0.94 mg/dL 0.70-1.20 [facility] Serum glucose measurement (m ass/volume)Ordered By: Michelle Mccall on 03-03-2025 Glucose [Mass/Vol] 99 mg/dL 70-99 [facility] Serum or plasma calcium rosangela urement (mass/volume)Ordered By: Michelle Mccall on 03-03-2025 Calcium [Mass/Vol] 9.1 mg/dL 7.6-11.0 [facility] Serum or plasma urea nitroge n measurement (mass/volume)Ordered By: Michelle Mccall on 03-03-2025 Urea nitrogen [Mass/Vol] 12 mg/dL 4-19 [facility] Sodium levelOrdered By: Michelle Mccall on 03-03-2025 Sodium [Moles/Vol] 140 mmol/L 133-145 [facility] White blood cell (WBC) count Ordered By: Michelle Mccall on 03-03-2025 WBC (Bld) [#/Vol] 4.0 10*3/uL Low 4.4-11.0 [facility] International normalized rat io (INR) calculationOrdered By: Michelle Mccall on 03-02-2025 INR Coag (Bld) [Relative time] 1.0 {INR} [facility] Partial Thromboplast Timeon 03-02-2025 aPTT Coag (Bld) [Time] 31.1 s Normal 24.1-36.2 [facility] Comment on above: Performed By: #### L 500.2500, L100.0500 #### [facility] Laboratory [address] [place], [place], [address] Prothrombin Time w/INRon INR Coag (PPP) [Relative time] 1.0 {INR} Normal [facility] Comment on above: Performed By: #### L 300.4310 #### [facility] Laboratory [address] [place], [address] PT Coag (PPP) [Time] 13.6 s Normal 11.7-14.9 [facility] Comment on above: Performed By: #### L 300.4310 #### [facility] Laboratory [address] [place], [address] Prothrombin timeOrdered By: Michelle Mccall on 03-02-2025 PT Coag (PPP) [Time] 13.6 s 11.7-14.9 [facility] MR/BMS.BVSon 02-16-2025 MR/BMS.BVS [facility] Vascular Surgery [address] [place] [address] OFFICE VISIT Date of Service: 02/16/25 MR#: [id number] Acct: [id number] Name: DELTA CHEEK Rep #: [id number] : 1975 Provider: Dr. Michelle Mccall MD Age/Sex: 49/M Location: [facility] Status: Signed Intake Vital Signs [...] movements, No (more content not included)... Normal [facility] Absolute lymphocyte countOrd ered By: Michelle Victor on 02-09-2025 Lymphocytes Auto (Unsp spec) [#/Vol] 1.61 10*3/uL 0.83-4.51 [facility] Absolute neutrophil countOrd ered By: Michelle Victor on 02-09-2025 Neutrophils (Bld) [#/Vol] 3.7 10*3/uL 2.0-7.7 [facility] Activated partial thrombopla stin time (aPTT) in platelet poor plasma by coagulation aOrdered By: Michelle Victor on 02-09-2025 aPTT Coag (PPP) [Time] 30.6 s 24.1-36.2 [facility] Anion gap in Serum or Plasma Ordered By: Michelle Victor on 02-09-2025 Anion gap [Moles/Vol] 18 mmol/L High 5-15 [facility] Automated lymphocyte count a s percentage of total leukocytesOrdered By: Michelle Victor on 02-09-2025 Lymphocytes/100 WBC Auto (Unsp spec) 26.4 % 19-41 [facility] BUN/creatinine ratioOrdered By: Michelle Victor on 02-09-2025 Urea nitrogen/Creatinine [Mass ratio] 15.1 mg/mg 10- [facility] Basic Metabolic Profile (BMP )on 02-09-2025 BUN/CRE 15.1 RATIO Normal 10-20 [facility] Comment on above: Performed By: #### L 300.4310 #### [facility] Laboratory [address] [place], [address] Calcium [Mass/Vol] 9.4 mg/dL Normal 7.6-11.0 [facility] Comment on above: Performed By: #### L 300.4310 #### [facility] [address] [place], [address] Chloride [Moles/Vol] 102 mmol/L Normal 98-108 [facility] Comment on above: Performed By: #### L 300.4310 #### [facility] [address] [place], [address] CO2 [Moles/Vol] 17.6 mmol/L Low 21.0-32.0 [facility] Comment on above: Performed By: #### L 300.4310 #### [facility] [address] [place], [address] Creatinine [Mass/Vol] 0.96 mg/dL Normal 0.70-1.20 [facility] Comment on above: Performed By: #### L 300.4310 #### [facility] [address] [place], [address] ECRCL 123.08 ml/min Normal 50-250 [facility] Comment on above: Performed By: #### L 300.4310 #### [facility] [address] [place], [address] GAP 18 High 5-15 [facility] Comment on above: Performed By: #### L 300.4310 #### [facility] [address] [place], [address] GFR/1.73 sq M.predicted among non-blacks MDRD (S/P/Bld) [Vol rate/Area] 95 mL/min/{1.73_m2} Normal >60 [facility] Comment on above: Result Comment: mL/m in/1.73m2 CKD-EPI Creatinine Equation (2020) Performed By: #### L 300.4310 #### [facility] [address] [place], [address] Glucose [Mass/Vol] 84 mg/dL Normal 70-99 [facility] Comment on above: Performed By: #### L 300.4310 #### [facility] [address] [place], [address] Potassium [Moles/Vol] 4.3 mmol/L Normal 3.3-5.1 [facility] Comment on above: Result Comment: Hemo lysis present, Results??could be affected. ?? Performed By: #### L 300.4310 #### [facility] [address] [place], [address] Sodium [Moles/Vol] 138 mmol/L Normal 133-145 [facility] Comment on above: Performed By: #### L 300.4310 #### [facility] [address] [place], [address] Urea nitrogen [Mass/Vol] 15 mg/dL Normal 4-19 [facility] Comment on above: Performed By: #### L 300.4310 #### [facility] [address] [place], [address] Basophil percentageOrdered B y: Michelle Victor on 02-09-2025 Basophils/100 WBC (Bld) 1.0 % 0-1 [facility] CBC W/Diff, Automatedon - Absolute Lymph 1.61 X10 3/uL Normal 0.83-4.51 [facility] Comment on above: Performed By: #### L 300.4310 #### [facility] [address] [place], [address] Absolute Neut 3.7 X10 3/uL Normal 2.0-7.7 [facility] Comment on above: Performed By: #### L 300.4310 #### [facility] [address] [place], [address] Basophils/100 WBC (Bld) 1.0 % Normal 0-1 [facility] Comment on above: Performed By: #### L 300.4310 #### [facility] [address] [place], [address] Eosinophils/100 WBC (Bld) 1.0 % Normal 0-5 [facility] Comment on above: Performed By: #### L 300.4310 #### [facility] [address] [place], [address] Erythrocyte distribution width (RBC) [Ratio] 12.4 % Normal 11.6-14.6 [facility] Comment on above: Performed By: #### L 300.4310 #### [facility] [address] [place], [address] Hematocrit (Bld) [Volume fraction] 42.9 % Normal 40-54 [facility] Comment on above: Performed By: #### L 300.4310 #### [facility] [address] [place], [address] Hemoglobin (Bld) [Mass/Vol] 14.2 g/dL Normal 13.0-16.5 [facility] Comment on above: Performed By: #### L 300.4310 #### [facility] [address] [place], [address] IG% 0.300 Normal 0.0-0.9 [facility] [facility] Comment on above: Result Comment: IG% - Immature Granulocytes (promyelocytes, myelocytes and metamyelocytes) > 1% indicates that a LEFT SHIFT is Present. Performed By: #### L 300.4310 #### [facility] [address] [place], [address] Lymphocytes/100 WBC (Bld) 26.4 % Normal 19-41 [facility] Comment on above: Performed By: #### L 300.4310 #### [facility] [address] [place], [address] MCH (RBC) [Entitic mass] 29.5 pg Normal 27.0-32.0 [facility] Comment on above: Performed By: #### L 300.4310 #### [facility] [address] [place], [address] MCHC (RBC) [Mass/Vol] 33.1 g/dL Normal 32-36 [facility] Comment on above: Performed By: #### L 300.4310 #### [facility] [address] [place], [address] MCV (RBC) [Entitic vol] 89.2 fL Normal 80-94 [facility] Comment on above: Performed By: #### L 300.4310 #### [facility] [address] [place], [address] Monocytes/100 WBC (Bld) 10.2 % High 0-10 [facility] Comment on above: Performed By: #### L 300.4310 #### [facility] [address] [place], [address] Neutrophils/100 WBC (Bld) 61.1 % Normal 47-70 [facility] Comment on above: Performed By: #### L 300.4310 #### [facility] [address] [place], [address] Nucleated RBC (Bld) [#/Vol] 0 10*3/uL Normal 0-5 [facility] Comment on above: Performed By: #### L 300.4310 #### [facility] [address] [place], [address] Platelet mean volume (Bld) [Entitic vol] 9.2 fL Normal 6.2-12.0 [facility] Comment on above: Performed By: #### L 300.4310 #### [facility] [address] [place], [address] Platelets (Bld) [#/Vol] 307 10*3/uL Normal 150-450 [facility] Comment on above: Performed By: #### L 300.4310 #### [facility] [address] [place], [address] RBC (Bld) [#/Vol] 4.81 10*6/uL Normal 4.6-6.2 [facility] Comment on above: Performed By: #### L 300.4310 #### [facility] [address] [place], [address] RDW SD 40.6 fl Normal 35.1-43.9 [facility] Comment on above: Performed By: #### L 300.4310 #### [facility] [address] [place], [address] WBC (Bld) [#/Vol] 6.1 10*3/uL Normal 4.4-11.0 [facility] Comment on above: Performed By: #### L 300.4310 #### [facility] [address] [place], [address] Carbon dioxide, total [Moles /volume] in Central venous bloodOrdered By: Michelle Victor on 02-09-2025 CO2 [Moles/Vol] 17.6 mmol/L Low 21.0-32.0 [facility] Chloride assayOrdered By: Bonifacio Victor on 02-09-2025 Chloride [Moles/Vol] 102 mmol/L 98-108 [facility] Emergency Department Summary on 02-09-2025 Emergency Department Summary [facility] Medical Records Department [address] [place] [address] Emergency Department Summary 02/09/25 MR#: [id number] Acct: [id number] Name: DELTA CHEEK Jr. Rep #: [id number] : 1975 49 From: Michelle Victor DO PCP: Dr. Rogelio Colvin MD [...] bony crep (more content not included)... Normal [facility] Eosinophil percentageOrdered By: Michelle Victor on 02-09-2025 Eosinophils/100 WBC (Bld) 1.0 % 0-5 [facility] Erythrocyte distribution wid th ratioOrdered By: Michelle Victor on 02-09-2025 Erythrocyte distribution width (RBC) [Ratio] 12.4 % 11.6-14.6 [facility] Erythrocyte distribution wid th standard deviationOrdered By: Michelle Victor on 02-09-2025 Erythrocyte distribution width (RBC) [Entitic vol] 40.6 fL 35.1-43.9 [facility] Erythrocyte distribution width (RBC) [Ratio] 40.6 fl 35.1-43.9 [facility] Estimation of creatinine obed aranceOrdered By: Michelle Victor on 02-09-2025 Estimated Creatinine Clearance Calc 123.08 ml/min 50-250 [facility] GFR/1.73 sq M.predicted xander g non-blacks MDRD (S/P/Bld) [Vol rate/Area]Ordered By: Michelle Victor on 02-09-2025 Estimated GFR (MDRD) Non-Af Amer [address] [facility] Comment on above: mL/min/1.73m2 CKD-EP I Creatinine Equation (2020) Glomerular filtration rate ( GFR) estimation/1.73 sq m using serum, plasma, or whole bOrdered By: Michelle Victor on 02-09-2025 GFR/1.73 sq M.predicted among non-blacks MDRD (S/P/Bld) [Vol rate/Area] 95 mL/min/{1.73_m2} >60 [facility] Comment on above: mL/min/1.73m2 CKD-EP I Creatinine Equation (2020) Hematocrit Auto (Bld) [Volum e fraction]Ordered By: Michelle Victor on 02-09-2025 Hematocrit (Bld) [Volume fraction] 42.9 % 40-54 [facility] Hemoglobin measurementOrdere d By: Michelle Victor on 02-09-2025 Hemoglobin (Bld) [Mass/Vol] 14.2 g/dL 13.0-16.5 [facility] Immature granulocytes/100 WB C Auto (Bld)Ordered By: Michelle Victor on 02-09-2025 Immature granulocytes/100 WBC (Bld) 0.300 % 0.0-0.9 [facility] Comment on above: IG% - Immature Granu locytes (promyelocytes, myelocytes and metamyelocytes) > 1% indicates that a LEFT SHIFT is Present. International normalized rat io (INR) calculationOrdered By: Michelle Victor on 02-09-2025 INR Coag (Bld) [Relative time] 0.9 {INR} [facility] Lymphocytes Auto (Unsp spec) [#/Vol]Ordered By: Michelle Victor on 02-09-2025 Lymphocytes (Bld) [#/Vol] 1.61 10*3/uL 0.83-4.51 [facility] Lymphocytes/100 WBC Auto (Un sp spec)Ordered By: Michelle iVctor on 02-09-2025 Lymphocytes/100 WBC (Bld) 26.4 % 19-41 [facility] MCV (mean corpuscular volume ) determinationOrdered By: Michelle Victor on 02-09-2025 MCV (RBC) [Entitic vol] 89.2 fL 80-94 [facility] Mean corpuscular hemoglobin (MCH) determinationOrdered By: Michelle Victor on 02-09-2025 MCH (RBC) [Entitic mass] 29.5 pg 27.0-32.0 [facility] Mean corpuscular hemoglobin concentration (MCHC) determinationOrdered By: Michelle Victor on 02-09-2025 MCHC (RBC) [Mass/Vol] 33.1 g/dL 32-36 [facility] Mean platelet volume determi nationOrdered By: Michelle Victor on 02-09-2025 Platelet mean volume (Bld) [Entitic vol] 9.2 fL 6.2-12.0 [facility] Monocyte percentageOrdered B y: Michelle Victor on 02-09-2025 Monocytes/100 WBC (Bld) 10.2 % High 0-10 [facility] Neutrophil percentageOrdered By: Michelle Victor on 02-09-2025 Neutrophils/100 WBC (Bld) 61.1 % 47-70 [facility] Nucleated red blood cell per centageOrdered By: Michelle Victor on 02-09-2025 Nucleated RBC/100 WBC (Bld) [Ratio] 0 % 0-5 [facility] Partial Thromboplast Timeon 02-09-2025 aPTT Coag (Bld) [Time] 30.6 s Normal 24.1-36.2 [facility] Comment on above: Performed By: #### L 300.4310 #### [facility] [address] [place], [address] Platelet countOrdered By: Bonifacio Victor on 02-09-2025 Platelets (Bld) [#/Vol] 307 10*3/uL 150-450 [facility] Potassium (Unsp spec) [Mass/ Vol]Ordered By: Michelle Victor on 02-09-2025 Potassium [Moles/Vol] 4.3 mmol/L 3.3-5.1 [facility] Comment on above: Hemolysis present, R esults could be affected. Potassium measurement (mass/ volume)Ordered By: Michelle Victor on 02-09-2025 Potassium (Unsp spec) [Mass/Vol] 4.3 mmol/L 3.3-5.1 [facility] Comment on above: Hemolysis present, R esults could be affected. Prothrombin Time w/INRon INR Coag (PPP) [Relative time] 0.9 {INR} Normal [facility] Comment on above: Performed By: #### L 300.4310 #### [facility] [address] [place], [address] PT Coag (PPP) [Time] 12.6 s Normal 11.7-14.9 [facility] Comment on above: Performed By: #### L 300.4310 #### [facility] [address] [place], [address] Prothrombin timeOrdered By: Michelle Victor on 02-09-2025 PT Coag (PPP) [Time] 12.6 s 11.7-14.9 [facility] RBC Auto (Bld) [#/Vol]Ordere d By: Michelle Victor on 02-09-2025 RBC (Bld) [#/Vol] 4.81 10*6/uL 4.6-6.2 [facility] Serum creatinine measurement (mass/volume)Ordered By: Michelle Victor on 02-09-2025 Creatinine [Mass/Vol] 0.96 mg/dL 0.70-1.20 [facility] Serum glucose measurement (m ass/volume)Ordered By: Michelle Victor on 02-09-2025 Glucose [Mass/Vol] 84 mg/dL 70-99 [facility] Serum or plasma calcium rosangela urement (mass/volume)Ordered By: Michelle Victor on 02-09-2025 Calcium [Mass/Vol] 9.4 mg/dL 7.6-11.0 [facility] Serum or plasma urea nitroge n measurement (mass/volume)Ordered By: Michelle Victor on 02-09-2025 Urea nitrogen [Mass/Vol] 15 mg/dL 4-19 [facility] Sodium levelOrdered By: Michelle Victor on 02-09-2025 Sodium [Moles/Vol] 138 mmol/L 133-145 [facility] Venous Duplex US, Unilateral on 02-09-2025 Venous Duplex US, Unilateral [facility] [address] [place] [address] Venous Duplex US, Unilateral 02/09/25 1542 MR#: [id number] Acct: [id number] Name: DELTA CHEEK Jr. Rep #: [id number] : 1975 49 From: Michelle Mccall MD Attending Dr: Status: DEP ER Ordering Dr: Michelle Victor DO Date: 02/09/25 Location: ED Sex: [...] with normal venous flow pattern. Ordering Physician: Michelle Victor Referring Physician: Rogelio Colvin Chi Performed By: Court oRd Teofilo 02/10/25 0953 Date Michelle Mccall MD CC: Dr. Michelle Victor, DO; Dr. Rogelio Colvin MD Date Dictated: 02/09/25 1542 Date Transcribed: 02/10/25 0953 Caddy Master: Signed Normal [facility] White blood cell (WBC) count Ordered By: Michelle Victor on 02-09-2025 WBC (Bld) [#/Vol] 6.1 10*3/uL 4.4-11.0 [facility] aPTT Coag (PPP) [Time]Ordere d By: Michelle Victor on 02-09-2025 aPTT Coag (Bld) [Time] 30.6 s 24.1-36.2 [facility] L/S Spine Bending Flex/[place] 02-03-2025 L/S Spine Bending Flex/Ext [facility] Imaging Services [address] [place] [address] L/S Spine Bending Flex/Ext MR#: [id number] Acct: [id number] Name: DELTA CHEEK Gilberto Chan Rep #: [id number] : 1975 M 49 From: Mendy Back MD PCP: Dr. Rogelio Colvin MD Status: DEP AMB Study: L/S Spine Bending Flex/Ext Date of Exam: 02/03 Exam# [id number] Ordering Dr: Nadia Brandt EXAM: XR Lumbosacral [...] findings in the lumbar spine. Reading [facility] CC: JORGE A Bauman; Dr. Rogelio Colvin MD Caddy Master: Signed Normal [facility] Orthopedic Visit Reporton Orthopedic Visit Report [facility] [address] [place] [address] OFFICE VISIT Date of Service: 02/03/25 MR#: [id number] Acct: [id number] Name: DELTA CHEEK Jr. Rep #: [id number] : 1975 Provider: JORGE A Bauman Age/Sex: 49/M Location: [facility] Status: Signed Intake Vital Signs 01/26/25 08:20 [...] service provided and the decisions made by , JORGE A Bauman 02/03/25 0953. Part of [...] Flores. 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 Normal [facility] Anion gap in Serum or Plasma Ordered By: Teena Jacques on 01-27-2025 Anion gap [Moles/Vol] 9 mmol/L 03-26 [facility] BUN/creatinine ratioOrdered By: Teena Jacques on 01-27-2025 Urea nitrogen/Creatinine [Mass ratio] 18.3 mg/mg 08-31 [facility] Basic Metabolic Profile (BMP )on 01-27-2025 BUN/CRE 18.3 RATIO Normal 08-31 [facility] Comment on above: Performed By: #### L 500.2500, L100.0500 #### [facility] [address] [place], [address] Calcium [Mass/Vol] 9.6 mg/dL Normal 7.6-11.0 [facility] Comment on above: Performed By: #### L 500.2500, L100.0500 #### [facility] [address] [place], [address] Chloride [Moles/Vol] 101 mmol/L Normal 98-108 [facility] Comment on above: Performed By: #### L 500.2500, L100.0500 #### [facility] [address] [place], [address] CO2 [Moles/Vol] 26.5 mmol/L Normal 21.0-32.0 [facility] Comment on above: Performed By: #### L 500.2500, L100.0500 #### [facility] [address] [place], [address] Creatinine [Mass/Vol] 1.02 mg/dL Normal 0.70-1.20 [facility] Comment on above: Performed By: #### L 500.2500, L100.0500 #### [facility] [address] [place], [address] GAP 9 Normal 03-26 [facility] Comment on above: Performed By: #### L 500.2500, L100.0500 #### [facility] [address] [place], [address] GFR/1.73 sq M.predicted among non-blacks MDRD (S/P/Bld) [Vol rate/Area] 89 mL/min/{1.73_m2} Normal >60 [facility] Comment on above: Result Comment: mL/m in/1.73m2 CKD-EPI Creatinine Equation (2020) Performed By: #### L 500.2500, L100.0500 #### [facility] [address] [place], [address] Glucose [Mass/Vol] 106 mg/dL High 70-99 [facility] Comment on above: Performed By: #### L 500.2500, L100.0500 #### [facility] [address] [place], [address] Potassium [Moles/Vol] 4.1 mmol/L Normal 3.3-5.1 [facility] Comment on above: Result Comment: Hemo lysis present, Results??could be affected. ?? Performed By: #### L 500.2500, L100.0500 #### [facility] [address] [place], [address] Sodium [Moles/Vol] 137 mmol/L Normal 133-145 [facility] Comment on above: Performed By: #### L 500.2500, L100.0500 #### [facility] [address] [place], [address] Urea nitrogen [Mass/Vol] 19 mg/dL Normal 4-19 [facility] Comment on above: Performed By: #### L 500.2500, L100.0500 #### [facility] [address] [place], [address] CBC-Complete Blood Cnt No Di ffon 01-27-2025 Erythrocyte distribution width (RBC) [Ratio] 13.1 % Normal 11.6-14.6 [facility] Comment on above: Performed By: #### L 500.2500, L100.0500 #### [facility] [address] [place], [address] Hematocrit (Bld) [Volume fraction] 45.1 % Normal 40-54 [facility] Comment on above: Performed By: #### L 500.2500, L100.0500 #### [facility] [address] [place], [address] Hemoglobin (Bld) [Mass/Vol] 15.1 g/dL Normal 13.0-16.5 [facility] Comment on above: Performed By: #### L 500.2500, L100.0500 #### [facility] [address] [place], [address] MCH (RBC) [Entitic mass] 30.0 pg Normal 27.0-32.0 [facility] Comment on above: Performed By: #### L 500.2500, L100.0500 #### [facility] [address] [place], [address] MCHC (RBC) [Mass/Vol] 33.5 g/dL Normal 32-36 [facility] Comment on above: Performed By: #### L 500.2500, L100.0500 #### [facility] [address] [place], [address] MCV (RBC) [Entitic vol] 89.7 fL Normal 80-94 [facility] Comment on above: Performed By: #### L 500.2500, L100.0500 #### [facility] [address] [place], [address] Platelet mean volume (Bld) [Entitic vol] 9.3 fL Normal 6.2-12.0 [facility] Comment on above: Performed By: #### L 500.2500, L100.0500 #### [facility] [address] [place], [address] Platelets (Bld) [#/Vol] 328 10*3/uL Normal 150-450 [facility] Comment on above: Performed By: #### L 500.2500, L100.0500 #### [facility] [address] [place], [address] RBC (Bld) [#/Vol] 5.03 10*6/uL Normal 4.6-6.2 [facility] Comment on above: Performed By: #### L 500.2500, L100.0500 #### [facility] [address] [place], [address] RDW SD 42.5 fl Normal 35.1-43.9 [facility] Comment on above: Performed By: #### L 500.2500, L100.0500 #### [facility] [address] [place], [address] WBC (Bld) [#/Vol] 7.8 10*3/uL Normal 4.4-11.0 [facility] Comment on above: Performed By: #### L 500.2500, L100.0500 #### [facility] [address] [place], [address] Carbon dioxide, total [Moles /volume] in Central venous bloodOrdered By: Teena Jacques on 01-27-2025 CO2 [Moles/Vol] 26.5 mmol/L 21.0-32.0 [facility] Chloride assayOrdered By: Nathanael Jacques on 01-27-2025 Chloride [Moles/Vol] 101 mmol/L 98-108 [facility] Erythrocyte distribution wid th ratioOrdered By: Teena Jacques on 01-27-2025 Erythrocyte distribution width (RBC) [Ratio] 13.1 % 11.6-14.6 [facility] Erythrocyte distribution wid th standard deviationOrdered By: Teena Jacques on 01-27-2025 Erythrocyte distribution width (RBC) [Entitic vol] 42.5 fL 35.1-43.9 [facility] Erythrocyte distribution width (RBC) [Ratio] 42.5 fl 35.1-43.9 [facility] GFR/1.73 sq M.predicted xander g non-blacks MDRD (S/P/Bld) [Vol rate/Area]Ordered By: Teena Jacques on 01-27-2025 Estimated GFR (MDRD) Non-Af Amer [address] [facility] Comment on above: mL/min/1.73m2 CKD-EP I Creatinine Equation (2020) Glomerular filtration rate ( GFR) estimation/1.73 sq m using serum, plasma, or whole bOrdered By: Teena Jacques on 01-27-2025 GFR/1.73 sq M.predicted among non-blacks MDRD (S/P/Bld) [Vol rate/Area] 89 mL/min/{1.73_m2} >60 [facility] Comment on above: mL/min/1.73m2 CKD-EP I Creatinine Equation (2020) Hematocrit Auto (Bld) [Volum e fraction]Ordered By: Teena Jacques on 01-27-2025 Hematocrit (Bld) [Volume fraction] 45.1 % 40-54 [facility] Hemoglobin measurementOrdere d By: Teena Jacques on 01-27-2025 Hemoglobin (Bld) [Mass/Vol] 15.1 g/dL 13.0-16.5 [facility] MCV (mean corpuscular volume ) determinationOrdered By: Teena Jacques on 01-27-2025 MCV (RBC) [Entitic vol] 89.7 fL 80-94 [facility] MR/BMSMigue 01-27-2025 MR/BMS.DELLA [facility] [address] [facility] [place] [address] OFFICE VISIT Date of Service: 01/27/25 MR#: [id number] Acct: [id number] Name: DELTA CHEEK Jr. Rep #: [id number] : 1975 Provider: JORGE A Schmitt Age/Sex: 49/M Location: [facility] Status: Signed Intake Vital Signs 01/19/25 16:09 [...] No numbn (more content not included)... Normal [facility] Mean corpuscular hemoglobin (MCH) determinationOrdered By: Teena Jacques on 01-27-2025 MCH (RBC) [Entitic mass] 30.0 pg 27.0-32.0 [facility] Mean corpuscular hemoglobin concentration (MCHC) determinationOrdered By: Teena Jacques on 01-27-2025 MCHC (RBC) [Mass/Vol] 33.5 g/dL 32-36 [facility] Mean platelet volume determi nationOrdered By: Teena Jacques on 01-27-2025 Platelet mean volume (Bld) [Entitic vol] 9.3 fL 6.2-12.0 [facility] Platelet countOrdered By: Nathanael Jacques on 01-27-2025 Platelets (Bld) [#/Vol] 328 10*3/uL 150-450 [facility] Potassium (Unsp spec) [Mass/ Vol]Ordered By: Teena Jacques on 01-27-2025 Potassium [Moles/Vol] 4.1 mmol/L 3.3-5.1 [facility] Comment on above: Hemolysis present, R esults could be affected. Potassium measurement (mass/ volume)Ordered By: Teena Jacques on 01-27-2025 Potassium (Unsp spec) [Mass/Vol] 4.1 mmol/L 3.3-5.1 [facility] Comment on above: Hemolysis present, R esults could be affected. RBC Auto (Bld) [#/Vol]Ordere d By: Teena Jacques on 01-27-2025 RBC (Bld) [#/Vol] 5.03 10*6/uL 4.6-6.2 [facility] Serum creatinine measurement (mass/volume)Ordered By: Teena Jacques on 01-27-2025 Creatinine [Mass/Vol] 1.02 mg/dL 0.70-1.20 [facility] Serum glucose measurement (m ass/volume)Ordered By: Teena Jacques on 01-27-2025 Glucose [Mass/Vol] 106 mg/dL High 70-99 [facility] Serum or plasma calcium rosangela urement (mass/volume)Ordered By: Teena Jacques on 01-27-2025 Calcium [Mass/Vol] 9.6 mg/dL 7.6-11.0 [facility] Serum or plasma urea nitroge n measurement (mass/volume)Ordered By: Teena Jacques on 01-27-2025 Urea nitrogen [Mass/Vol] 19 mg/dL 4-19 [facility] Sodium levelOrdered By: Stanseda andersen Georgie on 01-27-2025 Sodium [Moles/Vol] 137 mmol/L 133-145 [facility] White blood cell (WBC) count Ordered By: Teena Jacques on 01-27-2025 WBC (Bld) [#/Vol] 7.8 10*3/uL 4.4-11.0 [facility] Absolute lymphocyte countOrd ered By: Michelle Mccall on 01-20-2025 Lymphocytes Auto (Unsp spec) [#/Vol] 1.08 10*3/uL 0.83-4.51 [facility] Absolute neutrophil countOrd ered By: Michelle Mccall on 01-20-2025 Neutrophils (Bld) [#/Vol] 9.0 10*3/uL High 2.0-7.7 [facility] Activated partial thrombopla stin time (aPTT) in platelet poor plasma by coagulation aOrdered By: Michelle Mccall on 01-20-2025 aPTT Coag (PPP) [Time] 35.8 s 24.1-36.2 [facility] Anion gap in Serum or Plasma Ordered By: Michelle Mccall on 01-20-2025 Anion gap [Moles/Vol] 10 mmol/L 5-15 [facility] Automated lymphocyte count a s percentage of total leukocytesOrdered By: Michelle Mccall on 01-20-2025 Lymphocytes/100 WBC Auto (Unsp spec) 9.9 % Low 19-41 [facility] BUN/creatinine ratioOrdered By: Michelle Mccall on 01-20-2025 Urea nitrogen/Creatinine [Mass ratio] 16.7 mg/mg 10- [facility] Basic Metabolic Profile (BMP )on 01-20-2025 BUN/CRE 16.7 RATIO Normal 10- [facility] Comment on above: Performed By: #### L 376.6067 #### [facility] [address] [place], [address] Calcium [Mass/Vol] 8.5 mg/dL Normal 7.6-11.0 [facility] Comment on above: Performed By: #### L 300.4310 #### [facility] [address] [place], [address] Chloride [Moles/Vol] 103 mmol/L Normal 98-108 [facility] Comment on above: Performed By: #### L 300.4310 #### [facility] [address] [place], [address] CO2 [Moles/Vol] 22.5 mmol/L Normal 21.0-32.0 [facility] Comment on above: Performed By: #### L 300.4310 #### [facility] [address] [place], [address] Creatinine [Mass/Vol] 0.95 mg/dL Normal 0.70-1.20 [facility] Comment on above: Performed By: #### L 300.4310 #### [facility] [address] [place], [address] ECRCL 124.37 ml/min Normal 50-250 [facility] Comment on above: Performed By: #### L 300.4310 #### [facility] [address] [place], [address] GAP 10 Normal 5-15 [facility] Comment on above: Performed By: #### L 300.4310 #### [facility] [address] [place], [address] GFR/1.73 sq M.predicted among non-blacks MDRD (S/P/Bld) [Vol rate/Area] 97 mL/min/{1.73_m2} Normal >60 [facility] Comment on above: Result Comment: mL/m in/1.73m2 CKD-EPI Creatinine Equation (2020) Performed By: #### L 300.4310 #### [facility] [address] [place], [address] Glucose [Mass/Vol] 115 mg/dL High 70-99 [facility] Comment on above: Performed By: #### L 300.4310 #### [facility] [address] [place], [address] Potassium [Moles/Vol] 3.7 mmol/L Normal 3.3-5.1 [facility] Comment on above: Performed By: #### L 300.4310 #### [facility] [address] [place], [address] Sodium [Moles/Vol] 135 mmol/L Normal 133-145 [facility] Comment on above: Performed By: #### L 300.4310 #### [facility] [address] [place], [address] Urea nitrogen [Mass/Vol] 16 mg/dL Normal 4-19 [facility] Comment on above: Performed By: #### L 300.4310 #### [facility] [address] [place], [address] Basophil percentageOrdered B y: Michelle Mccall on 01-20-2025 Basophils/100 WBC (Bld) 0.2 % 0-1 [facility] CBC W/Diff, Automatedon 01-10 Absolute Lymph 1.08 X10 3/uL Normal 0.83-4.51 [facility] Comment on above: Performed By: #### L 300.4310 #### [facility] [address] [place], [address] Absolute Neut 9.0 X10 3/uL High 2.0-7.7 [facility] Comment on above: Performed By: #### L 300.4310 #### [facility] [address] [place], [address] Basophils/100 WBC (Bld) 0.2 % Normal 0-1 [facility] Comment on above: Performed By: #### L 300.4310 #### [facility] [address] [place], [address] Eosinophils/100 WBC (Bld) 0.0 % Normal 0-5 [facility] Comment on above: Performed By: #### L 300.4310 #### [facility] [address] [place], [address] Erythrocyte distribution width (RBC) [Ratio] 12.7 % Normal 11.6-14.6 [facility] Comment on above: Performed By: #### L 300.4310 #### [facility] [address] [place], [address] Hematocrit (Bld) [Volume fraction] 35.5 % Low 40-54 [facility] Comment on above: Performed By: #### L 300.4310 #### [facility] [address] [place], [address] Hemoglobin (Bld) [Mass/Vol] 11.9 g/dL Low 13.0-16.5 [facility] Comment on above: Performed By: #### L 300.4310 #### [facility] [address] [place], [address] IG% 0.500 Normal 0.0-0.9 [facility] Comment on above: Result Comment: IG% - Immature Granulocytes (promyelocytes, myelocytes and metamyelocytes) > 1% indicates that a LEFT SHIFT is Present. Performed By: #### L 300.4310 #### [facility] [address] [place], [address] Lymphocytes/100 WBC (Bld) 9.9 % Low 19-41 [facility] Comment on above: Performed By: #### L 300.4310 #### [facility] [address] [place], [address] MCH (RBC) [Entitic mass] 29.8 pg Normal 27.0-32.0 [facility] Comment on above: Performed By: #### L 300.4310 #### [facility] [address] [place], [address] MCHC (RBC) [Mass/Vol] 33.5 g/dL Normal 32-36 [facility] Comment on above: Performed By: #### L 300.4310 #### [facility] [address] [place], [address] MCV (RBC) [Entitic vol] 89.0 fL Normal 80-94 [facility] Comment on above: Performed By: #### L 300.4310 #### [facility] [address] [place], [address] Monocytes/100 WBC (Bld) 7.2 % Normal 0-10 [facility] Comment on above: Performed By: #### L 300.4310 #### [facility] [address] [place], [address] Neutrophils/100 WBC (Bld) 82.2 % High 47-70 [facility] Comment on above: Performed By: #### L 300.4310 #### [facility] [address] [place], [address] Nucleated RBC (Bld) [#/Vol] 0 10*3/uL Normal 0-5 [facility] Comment on above: Performed By: #### L 300.4310 #### [facility] [address] [place], [address] Platelet mean volume (Bld) [Entitic vol] 8.9 fL Normal 6.2-12.0 [facility] Comment on above: Performed By: #### L 300.4310 #### [facility] [address] [place], [address] Platelets (Bld) [#/Vol] 172 10*3/uL Normal 150-450 [facility] Comment on above: Performed By: #### L 300.4310 #### [facility] [address] [place], [address] RBC (Bld) [#/Vol] 3.99 10*6/uL Low 4.6-6.2 [facility] Comment on above: Performed By: #### L 300.4310 #### [facility] [address] [place], [address] RDW SD 41.7 fl Normal 35.1-43.9 [facility] Comment on above: Performed By: #### L 300.4310 #### [facility] [address] [place], [address] WBC (Bld) [#/Vol] 10.9 10*3/uL Normal 4.4-11.0 [facility] Comment on above: Performed By: #### L 300.4310 #### [facility] [address] [place], [address] Carbon dioxide, total [Moles /volume] in Central venous bloodOrdered By: Michelle Mccall on 01-20-2025 CO2 [Moles/Vol] 22.5 mmol/L 21.0-32.0 [facility] Chloride assayOrdered By: Bonifacio Mccall on 01-20-2025 Chloride [Moles/Vol] 103 mmol/L 98-108 [facility] Eosinophil percentageOrdered By: Michelle Mccall on 01-20-2025 Eosinophils/100 WBC (Bld) 0.0 % 0-5 [facility] Erythrocyte distribution wid th ratioOrdered By: Michelle Mccall on 01-20-2025 Erythrocyte distribution width (RBC) [Ratio] 12.7 % 11.6-14.6 [facility] Erythrocyte distribution wid th standard deviationOrdered By: Michelle Mccall on 01-20-2025 Erythrocyte distribution width (RBC) [Entitic vol] 41.7 fL 35.1-43.9 [facility] Erythrocyte distribution width (RBC) [Ratio] 41.7 fl 35.1-43.9 [facility] Estimation of creatinine obed aranceOrdered By: Michelle Mccall on 01-20-2025 Estimated Creatinine Clearance Calc 124.37 ml/min 50-250 [facility] GFR/1.73 sq M.predicted xander g non-blacks MDRD (S/P/Bld) [Vol rate/Area]Ordered By: Michelle Mccall on 01-20-2025 Estimated GFR (MDRD) Non-Af Amer [address] >60 [facility] Comment on above: mL/min/1.73m2 CKD-EP I Creatinine Equation (2020) Glomerular filtration rate ( GFR) estimation/1.73 sq m using serum, plasma, or whole bOrdered By: Michelle Mccall on 01-20-2025 GFR/1.73 sq M.predicted among non-blacks MDRD (S/P/Bld) [Vol rate/Area] 97 mL/min/{1.73_m2} >60 [facility] Comment on above: mL/min/1.73m2 CKD-EP I Creatinine Equation (2020) Hematocrit Auto (Bld) [Volum e fraction]Ordered By: Michelle Mccall on 01-20-2025 Hematocrit (Bld) [Volume fraction] 35.5 % Low 40-54 [facility] Hemoglobin measurementOrdere d By: Michelle Mccall on 01-20-2025 Hemoglobin (Bld) [Mass/Vol] 11.9 g/dL Low 13.0-16.5 [facility] Immature granulocytes/100 WB C Auto (Bld)Ordered By: Michelle Mccall on 01-20-2025 Immature granulocytes/100 WBC (Bld) 0.500 % 0.0-0.9 [facility] Comment on above: IG% - Immature Granu locytes (promyelocytes, myelocytes and metamyelocytes) > 1% indicates that a LEFT SHIFT is Present. Lymphocytes Auto (Unsp spec) [#/Vol]Ordered By: Michelle Mccall on 01-20-2025 Lymphocytes (Bld) [#/Vol] 1.08 10*3/uL 0.83-4.51 [facility] Lymphocytes/100 WBC Auto (Un sp spec)Ordered By: Michelle Mccall on 01-20-2025 Lymphocytes/100 WBC (Bld) 9.9 % Low 19-41 [facility] MCV (mean corpuscular volume ) determinationOrdered By: Michelle Mccall on 01-20-2025 MCV (RBC) [Entitic vol] 89.0 fL 80-94 [facility] Mean corpuscular hemoglobin (MCH) determinationOrdered By: Michelle Mccall on 01-20-2025 MCH (RBC) [Entitic mass] 29.8 pg 27.0-32.0 [facility] Mean corpuscular hemoglobin concentration (MCHC) determinationOrdered By: Michelle Mccall on 01-20-2025 MCHC (RBC) [Mass/Vol] 33.5 g/dL 32-36 [facility] Mean platelet volume determi nationOrdered By: Michelle Mccall on 01-20-2025 Platelet mean volume (Bld) [Entitic vol] 8.9 fL 6.2-12.0 [facility] Monocyte percentageOrdered B y: Michelle Mccall on 01-20-2025 Monocytes/100 WBC (Bld) 7.2 % 0-10 [facility] Neutrophil percentageOrdered By: Michelledebra Mccall on 01-20-2025 Neutrophils/100 WBC (Bld) 82.2 % High 47-70 [facility] Nucleated red blood cell per centageOrdered By: Michelle Mccall on 01-20-2025 Nucleated RBC/100 WBC (Bld) [Ratio] 0 % 0-5 [facility] Partial Thromboplast Timeon 01-20-2025 aPTT Coag (Bld) [Time] 35.8 s Normal 24.1-36.2 [facility] Comment on above: Performed By: #### L 500.2500, L100.0500 #### [facility] [address] [place], [place], [address] aPTT Coag (Bld) [Time] 33.8 s Normal 24.1-36.2 [facility] Comment on above: Performed By: #### L 500.2500, L100.0500 #### [facility] [place], [address] Platelet countOrdered By: Bonifacio Mccall on 01-20-2025 Platelets (Bld) [#/Vol] 172 10*3/uL 150-450 [facility] Potassium (Unsp spec) [Mass/ Vol]Ordered By: Michelle Mccall on 01-20-2025 Potassium [Moles/Vol] 3.7 mmol/L 3.3-5.1 [facility] Potassium measurement (mass/ volume)Ordered By: Michelle Mccall on 01-20-2025 Potassium (Unsp spec) [Mass/Vol] 3.7 mmol/L 3.3-5.1 [facility] RBC Auto (Bld) [#/Vol]Ordere d By: Michelle Mccall on 01-20-2025 RBC (Bld) [#/Vol] 3.99 10*6/uL Low 4.6-6.2 [facility] Serum creatinine measurement (mass/volume)Ordered By: Michelle Mccall on 01-20-2025 Creatinine [Mass/Vol] 0.95 mg/dL 0.70-1.20 [facility] Serum glucose measurement (m ass/volume)Ordered By: Michelle Mccall on 01-20-2025 Glucose [Mass/Vol] 115 mg/dL High 70-99 [facility] Serum or plasma calcium rosangela urement (mass/volume)Ordered By: Michelle Mccall on 01-20-2025 Calcium [Mass/Vol] 8.5 mg/dL 7.6-11.0 [facility] Serum or plasma urea nitroge n measurement (mass/volume)Ordered By: Michelle Mccall on 01-20-2025 Urea nitrogen [Mass/Vol] 16 mg/dL 4-19 [facility] Sodium levelOrdered By: Michelle Mccall on 01-20-2025 Sodium [Moles/Vol] 135 mmol/L 133-145 [facility] White blood cell (WBC) count Ordered By: Michelle Mccall on 01-20-2025 WBC (Bld) [#/Vol] 10.9 10*3/uL 4.4-11.0 [facility] aPTT Coag (PPP) [Time]Ordere d By: Michelledebra Mccall on 01-20-2025 aPTT Coag (Bld) [Time] 35.8 s 24.1-36.2 [facility] ACT Activated Clotting Timeo n 01-19-2025 ACTk CLOT TIME 181 sec High 74-137 [facility] Comment on above: Performed By: #### L 9100.0100 #### [facility] [address] [place], [address] ACTk CLOT TIME 222 sec High 74-137 [facility] Comment on above: Performed By: #### L 300.4310 #### [facility] [address] [place], [address] ACTk CLOT TIME 199 sec High 74-137 [facility] Comment on above: Performed By: #### L 300.4310 #### [facility] [address] [place], [address] ACTk CLOT TIME 187 sec High 74-137 [facility] Comment on above: Performed By: #### L 500.2500, L100.0500 #### [facility] [address] [place], [address] Activated clotting timeOrder ed By: Michelle Mccall on 01-19-2025 Activated Clotting Time 222 sec High 74-137 [facility] Basic Metabolic Profile (BMP )on 01-19-2025 BUN/CRE 21.6 RATIO High 10-20 [facility] Comment on above: Performed By: #### L 500.2500, L100.0500 #### [facility] [address] [place], [address] Calcium [Mass/Vol] 9.3 mg/dL Normal 7.6-11.0 [facility] Comment on above: Performed By: #### L 500.2500, L100.0500 #### [facility] [address] [place], [address] Chloride [Moles/Vol] 104 mmol/L Normal 98-108 [facility] Comment on above: Performed By: #### L 500.2500, L100.0500 #### [facility] [address] [place], [address] CO2 [Moles/Vol] 25.2 mmol/L Normal 21.0-32.0 [facility] Comment on above: Performed By: #### L 500.2500, L100.0500 #### [facility] [address] [place], [address] Creatinine [Mass/Vol] 1.09 mg/dL Normal 0.70-1.20 [facility] Comment on above: Performed By: #### L 500.2500, L100.0500 #### [facility] [address] [place], [address] GAP 12 Normal 5-15 [facility] Comment on above: Performed By: #### L 500.2500, L100.0500 #### [facility] [address] [place], [address] GFR/1.73 sq M.predicted among non-blacks MDRD (S/P/Bld) [Vol rate/Area] 82 mL/min/{1.73_m2} Normal >60 [facility] Comment on above: Result Comment: mL/m in/1.73m2 CKD-EPI Creatinine Equation (2020) Performed By: #### L 500.2500, L100.0500 #### [facility] [address] [place], [address] Glucose [Mass/Vol] 103 mg/dL High 70-99 [facility] Comment on above: Performed By: #### L 500.2500, L100.0500 #### [facility] [address] [place], [address] Potassium [Moles/Vol] 3.8 mmol/L Normal 3.3-5.1 [facility] Comment on above: Performed By: #### L 500.2500, L100.0500 #### [facility] [address] [place], [address] Sodium [Moles/Vol] 141 mmol/L Normal 133-145 [facility] Comment on above: Performed By: #### L 500.2500, L100.0500 #### [facility] [address] [place], [address] Urea nitrogen [Mass/Vol] 24 mg/dL High 4-19 [facility] Comment on above: Performed By: #### L 500.2500, L100.0500 #### [facility] [address] [place], [address] CBC-Complete Blood Cnt No Di ffon 01-19-2025 Erythrocyte distribution width (RBC) [Ratio] 12.7 % Normal 11.6-14.6 [facility] Comment on above: Performed By: #### L 500.2500, L100.0500 #### [facility] [address] [place], [address] Hematocrit (Bld) [Volume fraction] 41.8 % Normal 40-54 [facility] Comment on above: Performed By: #### L 500.2500, L100.0500 #### [facility] [address] [place], [address] Hemoglobin (Bld) [Mass/Vol] 14.0 g/dL Normal 13.0-16.5 [facility] Comment on above: Performed By: #### L 500.2500, L100.0500 #### [facility] [address] [place], [address] MCH (RBC) [Entitic mass] 29.5 pg Normal 27.0-32.0 [facility] Comment on above: Performed By: #### L 500.2500, L100.0500 #### [facility] [address] [place], [address] MCHC (RBC) [Mass/Vol] 33.5 g/dL Normal 32-36 [facility] Comment on above: Performed By: #### L 500.2500, L100.0500 #### [facility] [address] [place], [address] MCV (RBC) [Entitic vol] 88.0 fL Normal 80-94 [facility] Comment on above: Performed By: #### L 500.2500, L100.0500 #### [facility] [address] [place], [address] Platelet mean volume (Bld) [Entitic vol] 8.9 fL Normal 6.2-12.0 [facility] Comment on above: Performed By: #### L 500.2500, L100.0500 #### [facility] [address] [place], [address] Platelets (Bld) [#/Vol] 217 10*3/uL Normal 150-450 [facility] Comment on above: Performed By: #### L 500.2500, L100.0500 #### [facility] [address] [place], [address] RBC (Bld) [#/Vol] 4.75 10*6/uL Normal 4.6-6.2 [facility] Comment on above: Performed By: #### L 500.2500, L100.0500 #### [facility] [address] [place], [address] RDW SD 40.6 fl Normal 35.1-43.9 [facility] Comment on above: Performed By: #### L 500.2500, L100.0500 #### [facility] [address] [place], [address] WBC (Bld) [#/Vol] 5.8 10*3/uL Normal 4.4-11.0 [facility] Comment on above: Performed By: #### L 500.2500, L100.0500 #### [facility] [address] [place], [address] MR/POSTOP.ANEon 01-19-2025 MR/[facility]OP.[facility] Medical Records Department [address] [place] [address] Anesthesia Postop Eval I 01/19/25 1343 MR#: [id number] Acct: [id number] Name: DELTA CHEEK Jr. Rep #: [id number] : 1975 49 From: Marie Pennington CRNA PCP: Dr. Rogelio Colvin MD Status:REG SDC Y Race: C Location: [place] [address] Anesthesia: Postop Eval I Current Vital Signs [...] completed: Yes 01/19/25 1344 Date Marie Pennington ENVIRONMENTAL SAMPLER Cosigner Signature: Date CC: Signed Normal [facility] MR/[id number] 01-19-2025 MR/POSTOPAN2 [facility] Medical Records Department [address] [place] [address] Anesthesia Postop Eval II 01/19/25 1517 MR#: [id number] Acct: [id number] Name: DELTA CHEEK Jr. Rep #: [id number] : 1975 49 From: Joseph Segura MD PCP: Dr. Rogelio Colvin MD Status:ADM TATUM Y Race: C Location: [place] [address] Anesthesia Postop Eval I Sum Postop Eval Completion status Anesthesia document: Postop Eval 1 completed: Yes Anesthesia Postop Eval I Summary Anesthesia Postop Eval I Summary: Anesthesia Postop Eval I: Assessment Summary Airway patent Yes 01/19/25 13:44 ENVIRONMENTAL [email or web address].LMIL Spontaneous unlabored Yes 01/19/25 13:44 ENVIRONMENTAL SAMPLER.LMIL respirations Mental status Awake,Calm 01/19/25 13:44 ENVIRONMENTAL SAMPLER.LMIL nausea No 01/19/25 13:44 ENVIRONMENTAL SAMPLER.LMIL Vomiting No 01/19/25 13:44 ENVIRONMENTAL SAMPLER.LMIL Anesthesia Postop Eval I: Fluid Summary Crystalloid volume administer 900 01/19/25 13:44 ENVIRONMENTAL [email or web address].LMIL (ml) Colloids volume administered ( ml) Blood Product volume administered (ml) Total IV fluid infused 900 01/19/25 13:44 ENVIRONMENTAL [email or web address].LMIL Anesthesia Postop Eval I: Summary Notes Anesthesia Complication No 01/19/25 13:44 ENVIRONMENTAL [email or web address].LMIL Anesthesia Complication Comment: Post-operative progress note Anesthesia: Postop Eval II Evaluation Mental status: Awake Pain Level: 1 nausea: No Vomiting: No 01/19/25 1517 Date [facility] Date CC: Signed Normal [facility] Operative Reporton Operative Report [facility] Medical Records Department [address] [place] [address] Operative Report 01/19/25 1642 MR#: [id number] Acct: [id number] Name: DELTA CHEEK Jr. Rep #: [id number] : 1975 49 From: Michelle Mccall MD PCP: Dr. 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 He was then positioned prepped and draped in usual sterile fashion time was performed. Skin overlying the right internal jugular vein was anesthetized 1% lidocaine the vessel accessed under ultrasound guidance with a micropuncture needle wire. This then exchanged for a micropuncture sheath through which a [employer]son wire is advanced into the inferior vena cava. The micropuncture sheath and exchanged for an 8 Anguillan sheath which was advanced over the wire [...] the micropuncture sheath exchanged for short 5 Anguillan sheath. The Bentson wire was exchanged for [...] to circulate for 3 minutes. The 8 Anguillan sheath was then exchanged for the Inari [employer] distal protection sheath in the filter mechanism deployed. Next a [employer] Joice 10 (more content not included)... Normal [facility] Partial Thromboplast Timeon 01-19-2025 aPTT Coag (Bld) [Time] 31.8 s Normal 24.1-36.2 [facility] Comment on above: Performed By: #### L 300.0586 ####[facility] [id number] [place], [address] MR/Sujatha 01-15-2025 MR/PAT.BISI [facility] Medical Records Department [address] [place] [id number] PAT - Anesthesia 01/15/25 1631 MR#: [id number] Acct: [id number] Name: DELTA CHEEK Jr. Rep #: [id number] : 1975 49 From: Andrew Carranza MD PCP: Dr. Rogelio Clovin MD Status:PRE SDC Y Race: C Location: [facility] Pre-Assessment Diagnosis/Proposed Procedure Planned Operative Procedure(s): THROMBECTOMY Anesthesia History Anesthesia History - hot top liner: Anesthesia History - hot top liner Hx Hospitalization No 01/15/25 13:38 Any Problems [...] take am of surgery PONV PONV - hot top liner: PONV - hot top liner Female No 01/15/25 13:38 HX of Motion [...] 01/14/25 10:56 Respiratory Assessment Respiratory Assessment - hot top liner: Respiratory Tract Infection Hx - hot top liner Hx Respiratory Tract Infection No 01/15/25 13:38 STOP Sleep Apnea STOP Sleep Apnea - hot top liner: STOP Sleep Apnea - hot top liner Hx Hypertension Yes: CONTROLLED ON MED 01/15/25 [...] Tobacco Use History Tobacco Use History - hot top liner: Tobacco Use History - hot top liner Tobacco Use Smoking Status Former smoker 01/15/25 13:38 Hx Tobacco Use No 01/15/25 13:38 Years Smoking Packs Smoked per Day Smoking Cessation Date was Yes - quit smoking within 15 01/15/25 13:38 within the last 15 years years Hx Smoking Cessation Date Hx Smoking Cessation Counseling Hematologic Medial History Hematologic Hx - hot top liner: 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 Normal [facility] Anion gap in Serum or Plasma Ordered By: Michelle Mccall on 01-14-2025 Anion gap [Moles/Vol] 11 mmol/L 03-26 [facility] BUN/creatinine ratioOrdered By: Michelle Mccall on 01-14-2025 Urea nitrogen/Creatinine [Mass ratio] 11.8 mg/mg 08-31 [facility] Basic Metabolic Profile (BMP )on 01-14-2025 BUN/CRE 11.8 RATIO Normal 08-31 [facility] Comment on above: Performed By: #### L 500.2500, L100.0500 #### [facility] Laboratory [address] [place], [address] Calcium [Mass/Vol] 9.4 mg/dL Normal 7.6-11.0 [facility] Comment on above: Performed By: #### L 500.2500, L100.0500 #### [facility] Laboratory [address] [place], [address] Chloride [Moles/Vol] 101 mmol/L Normal 98-108 [facility] Comment on above: Performed By: #### L 500.2500, L100.0500 #### [facility] [address] [place], [address] CO2 [Moles/Vol] 26.4 mmol/L Normal 21.0-32.0 [facility] Comment on above: Performed By: #### L 500.2500, L100.0500 #### [facility] [address] [place], [address] Creatinine [Mass/Vol] 1.17 mg/dL Normal 0.70-1.20 [facility] Comment on above: Performed By: #### L 500.2500, L100.0500 #### [facility] Laboratory [address] [place], [address] ECRCL 100.60 ml/min Normal 50-250 [facility] Comment on above: Performed By: #### L 500.2500, L100.0500 #### [facility] Laboratory [address] [place], [address] GAP 11 Normal 5-15 [facility] Comment on above: Performed By: #### L 500.2500, L100.0500 #### [facility] [address] [place], [address] GFR/1.73 sq M.predicted among non-blacks MDRD (S/P/Bld) [Vol rate/Area] 75 mL/min/{1.73_m2} Normal >60 [facility] Comment on above: Result Comment: mL/m in/1.73m2 CKD-EPI Creatinine Equation (2020) Performed By: #### L 500.2500, L100.0500 #### [facility] [address] [place], [address] Glucose [Mass/Vol] 102 mg/dL High 70-99 [facility] Comment on above: Performed By: #### L 500.2500, L100.0500 #### [facility] [address] [place], [address] Potassium [Moles/Vol] 4.1 mmol/L Normal 3.3-5.1 [facility] Comment on above: Performed By: #### L 500.2500, L100.0500 #### [facility] [address] [place], [address] Sodium [Moles/Vol] 138 mmol/L Normal 133-145 [facility] Comment on above: Performed By: #### L 500.2500, L100.0500 #### [facility] Laboratory [address] [place], [address] Urea nitrogen [Mass/Vol] 14 mg/dL Normal 4-19 [facility] Comment on above: Performed By: #### L 500.2500, L100.0500 #### [facility] [address] [place], [address] CBC-Complete Blood Cnt No Di ffon 01-14-2025 Erythrocyte distribution width (RBC) [Ratio] 12.9 % Normal 11.6-14.6 [facility] Comment on above: Performed By: #### L 500.2500, L100.0500 #### [facility] [address] [place], [address] Hematocrit (Bld) [Volume fraction] 46.4 % Normal 40-54 [facility] Comment on above: Performed By: #### L 500.2500, L100.0500 #### [facility] [address] [place], [address] Hemoglobin (Bld) [Mass/Vol] 15.3 g/dL Normal 13.0-16.5 [facility] Comment on above: Performed By: #### L 500.2500, L100.0500 #### [facility] [address] [place], [address] MCH (RBC) [Entitic mass] 29.2 pg Normal 27.0-32.0 [facility] Comment on above: Performed By: #### L 500.2500, L100.0500 #### [facility] [address] [place], [address] MCHC (RBC) [Mass/Vol] 33.0 g/dL Normal 32-36 [facility] Comment on above: Performed By: #### L 500.2500, L100.0500 #### [facility] [address] [place], [address] MCV (RBC) [Entitic vol] 88.5 fL Normal 80-94 [facility] Comment on above: Performed By: #### L 500.2500, L100.0500 #### [facility] [address] [place], [address] Platelet mean volume (Bld) [Entitic vol] 8.8 fL Normal 6.2-12.0 [facility] Comment on above: Performed By: #### L 500.2500, L100.0500 #### [facility] [address] [place], [address] Platelets (Bld) [#/Vol] 259 10*3/uL Normal 150-450 [facility] Comment on above: Performed By: #### L 500.2500, L100.0500 #### [facility] Laboratory [address] [place], [address] RBC (Bld) [#/Vol] 5.24 10*6/uL Normal 4.6-6.2 [facility] Comment on above: Performed By: #### L 500.2500, L100.0500 #### [facility] Laboratory [address] [place], [address] RDW SD 41.6 fl Normal 35.1-43.9 [facility] Comment on above: Performed By: #### L 500.2500, L100.0500 #### [facility] [address] [place], [address] WBC (Bld) [#/Vol] 6.2 10*3/uL Normal 4.4-11.0 [facility] Comment on above: Performed By: #### L 500.2500, L100.0500 #### [facility] Laboratory [address] [place], [address] Carbon dioxide, total [Moles /volume] in Central venous bloodOrdered By: Michelle Mccall on 01-14-2025 CO2 [Moles/Vol] 26.4 mmol/L 21.0-32.0 [facility] Chloride assayOrdered By: Bonifacio Mccall on 01-14-2025 Chloride [Moles/Vol] 101 mmol/L 98-108 [facility] Erythrocyte distribution wid th ratioOrdered By: Michelle Mccall on 01-14-2025 Erythrocyte distribution width (RBC) [Ratio] 12.9 % 11.6-14.6 [facility] Erythrocyte distribution wid th standard deviationOrdered By: Michelle Mccall on 01-14-2025 Erythrocyte distribution width (RBC) [Entitic vol] 41.6 fL 35.1-43.9 [facility] Erythrocyte distribution width (RBC) [Ratio] 41.6 fl 35.1-43.9 [facility] Estimation of creatinine obed aranceOrdered By: Michelle Mccall on 01-14-2025 Estimated Creatinine Clearance Calc 100.60 ml/min 50-250 [facility] GFR/1.73 sq M.predicted xander g non-blacks MDRD (S/P/Bld) [Vol rate/Area]Ordered By: Michelle Mccall on 01-14-2025 Estimated GFR (MDRD) Non-Af Amer [address] [facility] Comment on above: mL/min/1.73m2 CKD-EP I Creatinine Equation (2020) Glomerular filtration rate ( GFR) estimation/1.73 sq m using serum, plasma, or whole bOrdered By: Michelle Mccall 01-14-2025 GFR/1.73 sq M.predicted among non-blacks MDRD (S/P/Bld) [Vol rate/Area] 75 mL/min/{1.73_m2} >60 [facility] Comment on above: mL/min/1.73m2 CKD-EP I Creatinine Equation (2020) Hematocrit Auto (Bld) [Volum e fraction]Ordered By: Michelle Mccall on 01-14-2025 Hematocrit (Bld) [Volume fraction] 46.4 % 40-54 [facility] Hemoglobin measurementOrdere d By: Michelle Mccall 01-14-2025 Hemoglobin (Bld) [Mass/Vol] 15.3 g/dL 13.0-16.5 [facility] MCV (mean corpuscular volume ) determinationOrdered By: Michelle Mccall on 01-14-2025 MCV (RBC) [Entitic vol] 88.5 fL 80-94 [facility] Mean corpuscular hemoglobin (MCH) determinationOrdered By: Michelle Mccall on 01-14-2025 MCH (RBC) [Entitic mass] 29.2 pg 27.0-32.0 [facility] Mean corpuscular hemoglobin concentration (MCHC) determinationOrdered By: Michelle Mccall on 01-14-2025 MCHC (RBC) [Mass/Vol] 33.0 g/dL 32-36 [facility] Mean platelet volume determi nationOrdered By: Michelle Mccall on 01-14-2025 Platelet mean volume (Bld) [Entitic vol] 8.8 fL 6.2-12.0 [facility] Operative Reporton Operative Report [facility] Medical Records Department [address] [place] [address] Operative Report 01/14/25 1615 MR#: [id number] Acct: [id number] Name: DELTA CHEEK Jr. Rep #: [id number] : 1975 49 From: Michelle Mccall MD PCP: Dr. 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 Through this a Kumpe catheter and [...] superior aspect. Through the micropuncture sheath a [employer]son wire was advanced the micropuncture sheath exchanged for an 8 Anguillan sheath. Next intravascular ultrasound probe was advanced [...] common iliac (more content not included)... Normal [facility] Platelet countOrdered By: Bonifacio Mccall on 01-14-2025 Platelets (Bld) [#/Vol] 259 10*3/uL 150-450 [facility] Potassium (Unsp spec) [Mass/ Vol]Ordered By: Michelle Mccall on 01-14-2025 Potassium [Moles/Vol] 4.1 mmol/L 3.3-5.1 [facility] Potassium measurement (mass/ volume)Ordered By: Michelle Mccall on 01-14-2025 Potassium (Unsp spec) [Mass/Vol] 4.1 mmol/L 3.3-5.1 [facility] RBC Auto (Bld) [#/Vol]Ordere d By: Michelle Mccall on 01-14-2025 RBC (Bld) [#/Vol] 5.24 10*6/uL 4.6-6.2 [facility] Serum creatinine measurement (mass/volume)Ordered By: Michelle Mccall on 01-14-2025 Creatinine [Mass/Vol] 1.17 mg/dL 0.70-1.20 [facility] Serum glucose measurement (m ass/volume)Ordered By: Michelle Mccall on 01-14-2025 Glucose [Mass/Vol] 102 mg/dL High 70-99 [facility] Serum or plasma calcium rosangela urement (mass/volume)Ordered By: Michelle Mccall on 01-14-2025 Calcium [Mass/Vol] 9.4 mg/dL 7.6-11.0 [facility] Serum or plasma urea nitroge n measurement (mass/volume)Ordered By: Michelle Mccall on 01-14-2025 Urea nitrogen [Mass/Vol] 14 mg/dL 4-19 [facility] Sodium levelOrdered By: Michelledebra Hidalgoey on 01-14-2025 Sodium [Moles/Vol] 138 mmol/L 133-145 [facility] White blood cell (WBC) count Ordered By: Michelle Mccall on 01-14-2025 WBC (Bld) [#/Vol] 6.2 10*3/uL 4.4-11.0 [facility] Lumbar Spine 2 or 3 Viewson 01-02-2025 Lumbar Spine 2 or 3 Views [facility] Imaging Services [address] [place] [address] Lumbar Spine 2 or 3 Views MR#: [id number] Acct: [id number] Name: DELTA CHEEK Jr. Rep #: [id number] : 1975 M 49 From: Delta Prakash PCP: Dr. Rogelio Colvin MD Status: REG CLI Study: Lumbar Spine 2 or 3 Views Date of Exam: Exam# [id number] Ordering Dr: Teena Jacques PROCEDURE: Lumbar spine radiographs REASON FOR EXAM: Pain TECHNIQUE: 2 view(s) of the lumbar spine COMPARISON: 01/17/2023 FINDINGS: See impression RAD/Lumbar Spine 2 or 3 Views IMPRESSION: Vertebral body heights are within normal limits. No significant malalignment. Moderate disc space narrowing and facet arthropathy at L4-L5. Sacroiliac joints are intact. Bilateral iliac stents noted. Reading Location: [facility] CC: JORGE A Schmitt; Dr. Rogelio Colvin MD Caddy Master: Signed Normal [facility] MR/BMS.BVSon 01-02-2025 MR/BMS.BVS [facility] Vascular Surgery [address] [place] [address] OFFICE VISIT Date of Service: 01/02/25 MR#: [id number] Acct: [id number] Name: DELTA CHEEK Jr. Rep #: [id number] : 1975 Provider: JORGE A Schmitt Age/Sex: 49/M Location: [facility].BVS Status: Signed Intake Vital Signs 11/03/24 23:51 [...] of coor (more content not included)... Normal [facility] Ankle Brachial Indexon 12-12 Ankle Brachial Index [facility] [place] [address] Ankle Brachial Index 12/12/24 1028 MR#: [id number] Acct: [id number] Name: DELTA CHEEK Jr. Rep #: [id number] : 1975 49 From: Michelle Mccall MD Attending Dr: Dr. Rogelio Colvin MD Status: REG CLI Ordering Dr: Rogelio Colvin MD Date: 12/12/24 Location: [facility] Sex: M C Admitted: Reason For Study: [...] By: Ponce Painting, T 12/15/24 1148 Date Michelle Mccall MD CC: Dr. Rogelio Colvin MD Date Dictated: 12/12/24 1028 Date Transcribed: 12/15/24 1148 Caddy Master: Signed Normal [facility] HIP, UNI W/ Pelvis 2-3 Views on 11-24-2024 HIP, UNI W/ Pelvis 2-3 Views [facility] Imaging Services [address] [place] [address] HIP, UNI W/ Pelvis 2-3 Views MR#: [id number] Acct: [id number] Name: ADIADELTA Gilberto Chan Rep #: [id number] : 1975 M 49 From: Bahman Don MD PCP: Dr. Rogelio Colvin MD Status: REG CLI Study: HIP, UNI W/ Pelvis 2-3 Views Date of Exam: Exam# [id number] Ordering Dr: Rogelio Colvin MD [id number] STUDY: X-RAY - PELVIS AND LEFT [...] 10:06 EST Reading Location ID and State: [address] [place] [address] , Service support , CC: Dr. Rogelio Colvin MD Caddy Master: Signed Normal [facility] Venous Duplex US, Unilateral on 11-24-2024 Venous Duplex US, Unilateral [facility] Cardiovascular Services [address] [place] [address] Venous Duplex US, Unilateral 11/24/24 1331 MR#: [id number] Acct: [id number] Name: DETLA CHEEK JrChristine Rep #: [id number] : 1975 49 From: Michelle Mccall MD Attending Dr: Dr. Michelle Mccall MD Status: REG C Ordering Dr: Michelle Mccall MD Date: 11/24/24 Location: [facility] Sex: M C Admitted: Reason For Study: [...] intraluminal echoes consistent with Chronic to Marsha ARABIC LINGUIST. DVT. Normal venous flow noted. PopV is [...] patent with normal venous flow Ordering Physician: Michelle Mccall Referring Physician: Rogelio Colvin Chi Performed By: Court Rod RVT 11/24/24 173 Date Michelle Mccall MD CC: Dr. Michelle Mccall MD; Dr. Rogelio Colvin MD Date Dictated: 11/24/24 1331 Date Transcribed: 11/24/241738 Caddy Master: Signed Normal [facility] 12 Lead EKGon 11-04-2024 12 Lead EKG [facility] Cardiovascular Services [address] [place] [address] 12 Lead EKG 11/04/24 0011 MR#: [id number] Acct: [id number] Name: DELTA CHEEK Jr. Rep #: [id number] : 1975 49 From: Zack Smiley MD [...] ECG Confirmed by SHERICE TRISTAN, ZACK ([id number]), website/blog editor SARAH GOLDMAN ([id number]) on 11/06/2024 2:24:34 PM Referred By: Confirmed By: ZACK SMILEY MD 11/06/24 1424 Date Zack Smiley MD CC: Dr. Rogelio Colvin MD; Dr. Isrrael Garrett DO Signed Normal [facility] Abdomen/Pelvis W IV Cont ONL Yon 11-04-2024 Abdomen/Pelvis W IV Cont ONLY [facility] Imaging Services [address] [place] [address] Abdomen/Pelvis W IV Cont ONLY MR#: [id number] Acct: [id number] Name: DELTA CHEEK Jr. Rep #: [id number] : 1975 M 49 From: Marcin Augustin MD PCP: Dr. Rogelio Colvin MD Status: REG ER Study: Abdomen/Pelvis W IV Cont ONLY Date of Exam: Exam# [id number] Ordering Dr: Isrrael Garrett DO [id number] EXAM: CT ABDOMEN AND PELVIS WITH [...] Rogelio Colvin MD; Dr. Isrrael Garrett DO Caddy Master: Signed Normal [facility] Absolute neutrophil countOrd ered By: Isrrael Garrett on 11-04-2024 Neutrophils (Bld) [#/Vol] 17.2 10*3/uL High 2.0-7.7 [facility] Albumin to globulin ratioOrd ered By: Isrrael Garrett on 11-04-2024 Albumin/Globulin [Mass ratio] 1.1 {ratio} 0.9-2.4 [facility] Basophil percentageOrdered B y: Isrrael Garrett on 11-04-2024 Basophils/100 WBC (Bld) 0.3 % 0-1 [facility] Bilirubin, totalOrdered By: Isrrael Garrett on 11-04-2024 Bilirubin [Mass/Vol] 0.90 mg/dL 0.20-1.00 [facility] Comment on above: For patients on eltr ombopag therapy, use of Dimension [place] TBIL is not recommended. Blood urea nitrogen (BUN)/cr eatinine ratioOrdered By: Isrrael Garrett on 11-04-2024 Urea nitrogen/Creatinine [Mass ratio] 20.3 mg/mg High 10-20 [facility] CBC W/Diff, Automatedon 10-13 Absolute Lymph 0.53 X10 3/uL Low 0.83-4.51 [facility] Comment on above: Performed By: #### L 500.4050, L100.0100, L501.2450 #### [facility] Laboratory [address] [place], [address] Absolute Neut 17.2 X10 3/uL High 2.0-7.7 [facility] Comment on above: Performed By: #### L 500.4050, L100.0100, L501.2450 #### [facility] Laboratory [address] [place], [address] Basophils/100 WBC (Bld) 0.3 % Normal 0-1 [facility] Comment on above: Performed By: #### L 500.4050, L100.0100, L501.2450 #### [facility] Laboratory [address] [place], [address] Eosinophils/100 WBC (Bld) 0.7 % Normal 0-5 [facility] Comment on above: Performed By: #### L 500.4050, L100.0100, L501.2450 #### [facility] Laboratory [address] [place], [address] Erythrocyte distribution width (RBC) [Ratio] 13.2 % Normal 11.6-14.6 [facility] Comment on above: Performed By: #### L 500.4050, L100.0100, L501.2450 #### [facility] Laboratory [address] [place], [address] Hematocrit (Bld) [Volume fraction] 46.4 % Normal 40-54 [facility] Comment on above: Performed By: #### L 500.4050, L100.0100, L501.2450 #### [facility] Laboratory [address] [place], [address] Hemoglobin (Bld) [Mass/Vol] 15.1 g/dL Normal 13.0-16.5 [facility] Comment on above: Performed By: #### L 500.4050, L100.0100, L501.2450 #### [facility] Laboratory [address] [place], [address] IG% 2.000 High 0.0-0.9 [facility] Comment on above: Result Comment: IG% - Immature Granulocytes (promyelocytes, myelocytes and metamyelocytes) > 1% indicates that a LEFT SHIFT is Present. Performed By: #### L 500.4050, L100.0100, L501.2450 #### [facility] Laboratory [address] [place], [address] Lymphocytes/100 WBC (Bld) 2.8 % Low 19-41 [facility] Comment on above: Performed By: #### L 500.4050, L100.0100, L501.2450 #### [facility] [address] [place], [address] MCH (RBC) [Entitic mass] 28.8 pg Normal 27.0-32.0 [facility] Comment on above: Performed By: #### L 500.4050, L100.0100, L501.2450 #### [facility] [address] [place], [address] MCHC (RBC) [Mass/Vol] 32.5 g/dL Normal 32-36 [facility] Comment on above: Performed By: #### L 500.4050, L100.0100, L501.2450 #### [facility] [address] [place], [address] MCV (RBC) [Entitic vol] 88.5 fL Normal 80-94 [facility] Comment on above: Performed By: #### L 500.4050, L100.0100, L501.2450 #### [facility] [address] [place], [address] Monocytes/100 WBC (Bld) 4.2 % Normal 0-10 [facility] Comment on above: Performed By: #### L 500.4050, L100.0100, L501.2450 #### [facility] [address] [place], [address] Neutrophils/100 WBC (Bld) 90.0 % High 47-70 [facility] Comment on above: Performed By: #### L 500.4050, L100.0100, L501.2450 #### [facility] [address] [place], [address] Nucleated RBC (Bld) [#/Vol] 0 10*3/uL Normal 0-5 [facility] Comment on above: Performed By: #### L 500.4050, L100.0100, L501.2450 #### [facility] [address] [place], [address] Platelet mean volume (Bld) [Entitic vol] 9.2 fL Normal 6.2-12.0 [facility] Comment on above: Performed By: #### L 500.4050, L100.0100, L501.2450 #### [facility] [address] [place], [address] Platelets (Bld) [#/Vol] 153 10*3/uL Normal 150-450 [facility] Comment on above: Performed By: #### L 500.4050, L100.0100, L501.2450 #### [facility] [address] [place], [address] RBC (Bld) [#/Vol] 5.24 10*6/uL Normal 4.6-6.2 [facility] Comment on above: Performed By: #### L 500.4050, L100.0100, L501.2450 #### [facility] [address] [place], [address] RDW SD 42.5 fl Normal 35.1-43.9 [facility] Comment on above: Performed By: #### L 500.4050, L100.0100, L501.2450 #### [facility] [address] [place], [address] WBC (Bld) [#/Vol] 19.1 10*3/uL High 4.4-11.0 [facility] Comment on above: Performed By: #### L 500.4050, L100.0100, L501.2450 #### [facility] [address] [place], [address] Carbon dioxide measurementOr dered By: Isrrael Garrett on 11-04-2024 CO2 [Moles/Vol] 27.0 mmol/L 21.0-32.0 [facility] Chloride measurementOrdered By: Isrrael Garrett on 11-04-2024 Chloride [Moles/Vol] 106 mmol/L 98-107 [facility] Comprehensive Metabolic Prof ilon 11-04-2024 Albumin [Mass/Vol] 3.9 g/dL Normal 3.2-5.0 [facility] Comment on above: Performed By: #### L 500.4050, L100.0100, L501.2450 #### [facility] [address] [place], [address] Albumin/Globulin [Mass ratio] 1.1 {ratio} Normal 0.9-2.4 [facility] Comment on above: Performed By: #### L 500.4050, L100.0100, L501.2450 #### [facility] [address] [place], [address] ALK P 76 U/L Normal 45-117 [facility] Comment on above: Performed By: #### L 500.4050, L100.0100, L501.2450 #### [facility] [address] [place], [address] ALT [Catalytic activity/Vol] 26 U/L Normal 16-61 [facility] Comment on above: Performed By: #### L 500.4050, L100.0100, L501.2450 #### [facility] [address] [place], [address] AST [Catalytic activity/Vol] 11 U/L Low 15-37 [facility] Comment on above: Performed By: #### L 500.4050, L100.0100, L501.2450 #### [facility] [address] [place], [address] Bilirubin [Mass/Vol] 0.90 mg/dL Normal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 mmol/L 136-145 [facility] WBC (Bld) [#/Vol] 10.8 10*3/uL 4.4-11.0 [facility] Basophil percentageOrdered B y: Dr. Mccall on 01-11-2023 Chloride [Moles/Vol] 105 mmol/L 98-107 [facility] Glucose [Mass/Vol] 110 mg/dL 74-106 [facility] Comment on above: Fasting Glucose resu lt from 100 to 125 mg/dL suggests IMPAIRED HOMEOSTASIS per A.D.A. criteria. Potassium [Moles/Vol] 3.9 mmol/L 3.5-5.1 [facility] Sodium [Moles/Vol] 140 mmol/L 136-145 [facility] WBC (Bld) [#/Vol] 6.3 10*3/uL 4.4-11.0 [facility] Blood erythrocytes count (nu mber/volume)Ordered By: Dr. Gill on 01-11-2023 RBC (Bld) [#/Vol] 4.73 10*6/uL 4.6-6.2 [facility] Blood erythrocytes count (nu mber/volume)Ordered By: Dr. Mccall on 01-11-2023 RBC (Bld) [#/Vol] 4.16 10*6/uL 4.6-6.2 [facility] Blood hemoglobin measurement (mass/volume)Ordered By: Dr. Gill on 01-11-2023 Hemoglobin (Bld) [Mass/Vol] 14.3 g/dL 13.0-16.5 [facility] Blood hemoglobin measurement (mass/volume)Ordered By: Dr. Mccall on 01-11-2023 Hemoglobin (Bld) [Mass/Vol] 12.3 g/dL 13.0-16.5 [facility] Blood lymphocytes/100 leukoc ytesOrdered By: Dr. Gill on 01-11-2023 Lymphocytes/100 WBC (Bld) 26.5 % 19-41 [facility] Blood monocytes/100 leukocyt esOrdered By: Dr. Gill on 01-11-2023 Monocytes/100 WBC (Bld) 9.4 % 0-10 [facility] Blood platelet mean volumeOr dered By: Dr. Gill on 01-11-2023 Platelet mean volume (Bld) [Entitic vol] 9.1 fL 6.2-12.0 [facility] Blood platelet mean volumeOr dered By: Dr. Mccall on 01-11-2023 Platelet mean volume (Bld) [Entitic vol] 8.7 fL 6.2-12.0 [facility] Determination of erythrocyte mean corpuscular volume (MCV)Ordered By: Dr. Gill on 01-11-2023 MCV (RBC) [Entitic vol] 90.9 fL 80-94 [facility] Determination of erythrocyte mean corpuscular volume (MCV)Ordered By: Dr. Mccall on 01-11-2023 MCV (RBC) [Entitic vol] 91.1 fL 80-94 [facility] Glucose Glucometer (BldC) [M ass/Vol]Ordered By: Dr. Gill on 01-11-2023 Glucose [Mass/Vol] 150 mg/dL 74-106 [facility] Comment on above: MANAGEMENT OF PATIEN T CARE PER NURSING PROTOCOL Hematocrit Auto (Bld) [Volum e fraction]Ordered By: Dr. Gill on 01-11-2023 Hematocrit (Bld) [Volume fraction] 43.0 % 40-54 [facility] Hematocrit Auto (Bld) [Volum e fraction]Ordered By: Dr. Mccall on 01-11-2023 Hematocrit (Bld) [Volume fraction] 37.9 % 40-54 [facility] Laboratory - Chemistry and C hemistry - challengeOrdered By: Dr. Gill on 01-11-2023 CO2 [Moles/Vol] 31.0 mmol/L 21.0-32.0 [facility] Urea nitrogen/Creatinine [Mass ratio] 15.8 mg/mg 08-31 [facility] Laboratory - Chemistry and C hemistry - challengeOrdered By: Dr. Mccall on 01-11-2023 CO2 [Moles/Vol] 30.0 mmol/L 21.0-32.0 [facility] Urea nitrogen/Creatinine [Mass ratio] 16.1 mg/mg 20 [facility] Laboratory - CoagulationOrde red By: Dr. Mccall on 01-11-2023 aPTT Coag (Bld) [Time] 51.2 s 24.1-36.2 [facility] Laboratory - Hematology and Cell countsOrdered By: Dr. Gill on 01-11-2023 Erythrocyte distribution width (RBC) [Entitic vol] 42.2 fL 35.1-43.9 [facility] Erythrocyte distribution width (RBC) [Ratio] 12.7 % 11.6-14.6 [facility] Immature granulocytes/100 WBC (Bld) 0.300 % 0.0-0.9 [facility] Comment on above: IG% - Immature Granu locytes (promyelocytes, myelocytes and metamyelocytes) > 1% indicates that a LEFT SHIFT is Present. MCH (RBC) [Entitic mass] 30.2 pg 27.0-32.0 [facility] Nucleated RBC/100 WBC (Bld) [Ratio] 0 % 0-5 [facility] Laboratory - Hematology and Cell countsOrdered By: Dr. Mccall on 01-11-2023 Erythrocyte distribution width (RBC) [Entitic vol] 42.2 fL 35.1-43.9 [facility] Erythrocyte distribution width (RBC) [Ratio] 12.8 % 11.6-14.6 [facility] MCH (RBC) [Entitic mass] 29.6 pg 27.0-32.0 [facility] MCHC Auto (RBC) [Mass/Vol]Or dered By: Dr. Gill on 01-11-2023 MCHC (RBC) [Mass/Vol] 33.3 g/dL 32-36 [facility] MCHC Auto (RBC) [Mass/Vol]Or dered By: Dr. Mccall on 01-11-2023 MCHC (RBC) [Mass/Vol] 32.5 g/dL 32-36 [facility] No Panel InformationOrdered By: Dr. Gill on 01-11-2023 Estimated Creatinine Clearance Calc 91.13 ml/min [facility] Estimated GFR (MDRD) Amer 88 mL/min >60 [facility] Comment on above: GFR Calc Estimated GFR (MDRD) Non-Af Amer 72 mL/min >60 [facility] Comment on above: Non- GFR Calc Troponin I High Sensitivity 7 pg/mL 3.0-78.0 [facility] Comment on above: Please Note: New Melissa t Units and Gender Specific Reference Ranges. For more information see Policy Stat Procedure [place] High Sensitivity Troponin (TNIH) and attachments. No Panel InformationOrdered By: Dr. Mccall on 01-11-2023 Estimated Creatinine Clearance Calc 103.89 ml/min [facility] Estimated GFR (MDRD) Amer 103 mL/min >60 [facility] Comment on above: GFR Calc Estimated GFR (MDRD) Non-Af Amer 85 mL/min >60 [facility] Comment on above: Non- GFR Calc Platelets bldOrdered By: Dr. Gill on 01-11-2023 Platelets (Bld) [#/Vol] 337 10*3/uL 150-450 [facility] Platelets bldOrdered By: Dr. Mccall on 01-11-2023 Platelets (Bld) [#/Vol] 215 10*3/uL 150-450 [facility] Serum or plasma calcium rosangela urement (mass/volume)Ordered By: Dr. Gill on 01-11-2023 Calcium [Mass/Vol] 8.8 mg/dL 8.5-10.1 [facility] Serum or plasma calcium rosangela urement (mass/volume)Ordered By: Dr. Mccall on 01-11-2023 Calcium [Mass/Vol] 8.6 mg/dL 8.5-10.1 [facility] Serum or plasma creatinine m easurement (mass/volume)Ordered By: Dr. Gill on 01-11-2023 Creatinine [Mass/Vol] 1.14 mg/dL 0.70-1.30 [facility] Comment on above: The validity of the calculated GFR & GFRAA in patients over 70 years has not been determined. Clinical correlation is essential. Serum or plasma creatinine m easurement (mass/volume)Ordered By: Dr. Mccall on 01-11-2023 Creatinine [Mass/Vol] 1.00 mg/dL 0.70-1.30 [facility] Comment on above: The validity of the calculated GFR & GFRAA in patients over 70 years has not been determined. Clinical correlation is essential. Serum or plasma urea nitroge n measurement (mass/volume)Ordered By: Dr. Gill on 01-11-2023 Urea nitrogen [Mass/Vol] 18 mg/dL 7-18 [facility] Serum or plasma urea nitroge n measurement (mass/volume)Ordered By: Dr. Mccall on 01-11-2023 Urea nitrogen [Mass/Vol] 16 mg/dL 05-29 [facility] Thin prep Papanicolaou smear with manual screeningOrdered By: Dr. Gill on 01-11-2023 Thin prep Papanicolaou smear with manual screening 03-26 [facility] Thin prep Papanicolaou smear with manual screeningOrdered By: Dr. Mccall on 01-11-2023 Thin prep Papanicolaou smear with manual screening 5 - [facility] Absolute lymphocyte countOrd ered By: Teena Reynolds on 01-10-2023 Lymphocytes Auto (Unsp spec) [#/Vol] 1.56 10*3/uL 0.83-4.51 [facility] Basophil percentageOrdered B y: Teena Reynolds on 01-10-2023 Basophils/100 WBC (Bld) 0.7 % 0-1 [facility] Eosinophils/100 WBC (Bld) 2.6 % 0-5 [facility] Neutrophils (Bld) [#/Vol] 3.1 10*3/uL 2.0-7.7 [facility] Neutrophils/100 WBC (Bld) 57.9 % 47-70 [facility] Blood lymphocytes/100 leukoc ytesOrdered By: Teena Reynolds on 01-10-2023 Lymphocytes/100 WBC (Bld) 29.2 % 19-41 [facility] Blood monocytes/100 leukocyt esOrdered By: Teena Reynolds on 01-10-2023 Monocytes/100 WBC (Bld) 9.2 % 0-10 [facility] Laboratory - Hematology and Cell countsOrdered By: Teena Reynolds on 01-10-2023 Immature granulocytes/100 WBC (Bld) 0.400 % 0.0-0.9 [facility] Comment on above: IG% - Immature Granu locytes (promyelocytes, myelocytes and metamyelocytes) > 1% indicates that a LEFT SHIFT is Present. Nucleated RBC/100 WBC (Bld) [Ratio] 0 % 0-5 [facility] No Panel InformationOrdered By: Dr. Mccall on 01-10-2023 Activated Clotting Time 215 sec 74-137 [facility] INR in Blood by Coagulation assayOrdered By: Teena Reynolds on 01-09-2023 INR Coag (Bld) [Relative time] 1.5 {INR} [facility] Laboratory - CoagulationOrde red By: Teena Reynolds on 01-09-2023 PT Coag (PPP) [Time] 17.5 s 11.7-14.9 [facility] Absolute lymphocyte countOrd ered By: Kirstin Javier on 12-31-2022 Lymphocytes Auto (Unsp spec) [#/Vol] 1.34 10*3/uL 0.83-4.51 [facility] Basophil percentageOrdered B y: Kirstin Javier on 12-31-2022 Basophil percentage 0-5 SEEN /hpf 0-5 [facility] Basophils/100 WBC (Bld) 0.3 % 0-1 [facility] Chloride [Moles/Vol] 106 mmol/L 98-107 [facility] Eosinophils/100 WBC (Bld) 1.2 % 0-5 [facility] Glucose [Mass/Vol] 130 mg/dL 74-106 [facility] Comment on above: Fasting Glucose resu lt greater than or equal to 126 mg/dL suggests DIABETES MELLITUS per A.D.A. criteria. Neutrophils (Bld) [#/Vol] 8.7 10*3/uL 2.0-7.7 [facility] Neutrophils/100 WBC (Bld) 78.1 % 47-70 [facility] Potassium [Moles/Vol] 4.1 mmol/L 3.5-5.1 [facility] Sodium [Moles/Vol] 140 mmol/L 136-145 [facility] WBC (Bld) [#/Vol] 11.1 10*3/uL 4.4-11.0 [facility] Bilirubin Test strip Ql (U)O rdered By: Kirstin Javier on 12-31-2022 Bilirubin Ql (U) Negative Negative [facility] Blood erythrocytes count (nu mber/volume)Ordered By: Kirstin Javier on 12-31-2022 RBC (Bld) [#/Vol] 5.08 10*6/uL 4.6-6.2 [facility] Blood hemoglobin measurement (mass/volume)Ordered By: Kirstin Javier on 12-31-2022 Hemoglobin (Bld) [Mass/Vol] 15.4 g/dL 13.0-16.5 [facility] Blood lymphocytes/100 leukoc ytesOrdered By: Kirstin Javier on 12-31-2022 Lymphocytes/100 WBC (Bld) 12.1 % 19-41 [facility] Blood monocytes/100 leukocyt esOrdered By: Kirstin Javier on 12-31-2022 Monocytes/100 WBC (Bld) 8.0 % 0-10 [facility] Blood platelet mean volumeOr dered By: Kirstin Javier on 12-31-2022 Platelet mean volume (Bld) [Entitic vol] 9.1 fL 6.2-12.0 [facility] Determination of erythrocyte mean corpuscular volume (MCV)Ordered By: Kirstin Javier on 12-31-2022 MCV (RBC) [Entitic vol] 89.6 fL 80-94 [facility] Hematocrit Auto (Bld) [Volum e fraction]Ordered By: Kirstin Javier on 12-31-2022 Hematocrit (Bld) [Volume fraction] 45.5 % 40-54 [facility] Ketones Test strip Ql (U)Ord ered By: Kirstin Javier on 12-31-2022 Ketones Ql (U) Negative Negative [facility] Laboratory - Chemistry and C hemistry - challengeOrdered By: Kirstin Javier on 12-31-2022 CK [Catalytic activity/Vol] 26 U/L 39-308 [facility] CO2 [Moles/Vol] 28.0 mmol/L 21.0-32.0 [facility] Urea nitrogen/Creatinine [Mass ratio] 26.6 mg/mg 10-20 [facility] Laboratory - Hematology and Cell countsOrdered By: Kirstin Javier on 12-31-2022 Erythrocyte distribution width (RBC) [Entitic vol] 41.0 fL 35.1-43.9 [facility] Erythrocyte distribution width (RBC) [Ratio] 12.5 % 11.6-14.6 [facility] Immature granulocytes/100 WBC (Bld) 0.300 % 0.0-0.9 [facility] Comment on above: IG% - Immature Granu locytes (promyelocytes, myelocytes and metamyelocytes) > 1% indicates that a LEFT SHIFT is Present. MCH (RBC) [Entitic mass] 30.3 pg 27.0-32.0 [facility] Nucleated RBC/100 WBC (Bld) [Ratio] 0 % 0-5 [facility] MCHC Auto (RBC) [Mass/Vol]Or dered By: Kirstin Javier on 12-31-2022 MCHC (RBC) [Mass/Vol] 33.8 g/dL 32-36 [facility] Mucus LM Ql (Urine sed)Order ed By: Kirstin Javier on 12-31-2022 Mucus Ql (Urine sed) RARE /hpf [facility] Nitrite Test strip Ql (U)Ord ered By: Kirstin Javier on 12-31-2022 Nitrite Ql (U) Negative Negative [facility] No Panel InformationOrdered By: Kirstin Javier on 12-31-2022 Estimated Creatinine Clearance Calc 106.01 ml/min [facility] Estimated GFR (MDRD) Amer 105 mL/min >60 [facility] Comment on above: GFR Calc Estimated GFR (MDRD) Non-Af Amer 87 mL/min >60 [facility] Comment on above: Non- GFR Calc Platelets bldOrdered By: Melvina Javier on 12-31-2022 Platelets (Bld) [#/Vol] 182 10*3/uL 150-450 [facility] Protein Test strip Ql (U)Ord ered By: Kirstin Javier on 12-31-2022 Protein Ql (U) 15 mg/dl Negative [facility] Serum or plasma calcium rosangela urement (mass/volume)Ordered By: Kirstin Javier on 12-31-2022 Calcium [Mass/Vol] 9.1 mg/dL 8.5-10.1 [facility] Serum or plasma creatinine m easurement (mass/volume)Ordered By: Kirstin Javier on 12-31-2022 Creatinine [Mass/Vol] 0.98 mg/dL 0.70-1.30 [facility] Comment on above: The validity of the calculated GFR & GFRAA in patients over 70 years has not been determined. Clinical correlation is essential. Serum or plasma urea nitroge n measurement (mass/volume)Ordered By: Kirstin Javier on 12-31-2022 Urea nitrogen [Mass/Vol] 26 mg/dL 7-18 [facility] Squamous epithelial cells de tection in urine sediment by light microscopyOrdered By: Kirstin Javier on 12-31-2022 Epithelial cells.squamous LM Ql (Urine sed) 0-5 SEEN /hpf 0-5 [facility] Thin prep Papanicolaou smear with manual screeningOrdered By: Kirstin Javier on 12-31-2022 Thin prep Papanicolaou smear with manual screening 6 5-15 [facility] Urine blood detectionOrdered By: Kirstin Javier on 12-31-2022 RBC Ql (U) 10 /ul Negative [facility] RBC Ql (U) 0-5 SEEN /hpf 0-5 [facility] Urine clarityOrdered By: Melvina Javier on 12-31-2022 Clarity (U) Sl. Cloudy Clear [facility] Urine color determinationOrd ered By: Kirstin Javier on 12-31-2022 Color (U) Yellow Yellow [facility] Urine glucose detectionOrder ed By: Kirstin Javier on 12-31-2022 Glucose Ql (U) Normal mg/dl Normal [facility] Urine leukocyte esterase det ection by dipstickOrdered By: Kirstin Javier on 12-31-2022 Leukocyte esterase Test strip Ql (U) Negative Negative [facility] Urine pHOrdered By: Kirstin vargas on 12-31-2022 pH (U) 5.0 [pH] 5.0 - 8.0 [facility] Urine sediment bacteria coun t by microscopy (number/high power field)Ordered By: Kirstin Javier on 12-31-2022 Bacteria LM.HPF (Urine sed) [#/Area] RARE /hpf None Seen [facility] Urine specific gravity measu rementOrdered By: Kirstin Javier on 12-31-2022 Specific gravity (U) [Rel density] 1.025 1.002-1.030 [facility] Urobilinogen Auto test strip Ql (U)Ordered By: Kirstin Javier on 12-31-2022 Urobilinogen Ql (U) 1 mg/dl Normal [place] [facility] EMERGENCY REPORTon 3 EMERGENCY REPORT [facility] EMERGENCY ROOM REPORT NAME ACCOUNT SEX AGE ADMIT DISCHARGE PT MED. RECORD# NUMBER DATE DATE AUBRIE CHEEK [id number] Roz 47 12/04/22 12/04/22 3 DELTA Macias [id number] ROOM: ER DATE OF : 1975 DICTATING [...] and Percocet, which were called in to [facility] in [place]. Limited activity over the next 2 to 4 days and then as tolerated. I recommended follow-up with his family physician or Orthopedics for further management, returning if symptoms worsen. Dictated By: Cj Leiva MD 12/04/22 11:56 JOB #: [id number] Transcribed By: richmond 12/05/22 18:18 Electronically signed by: MAC Leiva M.D. 12/08/22 07:37 Page 2 of 2 DELTA CHEEK Emergency Room Report Normal [facility] Absolute lymphocyte countOrd ered By: Dr. Jeffery on 12-06-2022 Lymphocytes Auto (Unsp spec) [#/Vol] 0.72 10*3/uL 0.83-4.51 [facility] Basophil percentageOrdered B y: Jacek Raygoza on 12-06-2022 Basophil percentage 0 SEEN /hpf 0-5 [facility] Basophil percentageOrdered B y: Dr. Jeffery on 12-06-2022 Basophils/100 WBC (Bld) 0.1 % 0-1 [facility] Chloride [Moles/Vol] 109 mmol/L 98-107 [facility] Eosinophils/100 WBC (Bld) 0.0 % 0-5 [facility] Glucose [Mass/Vol] 127 mg/dL 74-106 [facility] Comment on above: Fasting Glucose resu lt greater than or equal to 126 mg/dL suggests DIABETES MELLITUS per A.D.A. criteria. Neutrophils (Bld) [#/Vol] 8.7 10*3/uL 2.0-7.7 [facility] Neutrophils/100 WBC (Bld) 90.1 % 47-70 [facility] Potassium [Moles/Vol] 4.0 mmol/L 3.5-5.1 [facility] Sodium [Moles/Vol] 140 mmol/L 136-145 [facility] WBC (Bld) [#/Vol] 9.7 10*3/uL 4.4-11.0 [facility] Bilirubin Test strip Ql (U)O rdered By: Jacek Raygoza on 12-06-2022 Bilirubin Ql (U) Negative Negative [facility] Blood erythrocytes count (nu mber/volume)Ordered By: Dr. Jeffery on 12-06-2022 RBC (Bld) [#/Vol] 5.02 10*6/uL 4.6-6.2 [facility] Blood hemoglobin measurement (mass/volume)Ordered By: Dr. Jeffery on 12-06-2022 Hemoglobin (Bld) [Mass/Vol] 14.6 g/dL 13.0-16.5 [facility] Blood lymphocytes/100 leukoc ytesOrdered By: Dr. Jeffery on 12-06-2022 Lymphocytes/100 WBC (Bld) 7.4 % 19-41 [facility] Blood monocytes/100 leukocyt esOrdered By: Dr. Jeffery on 12-06-2022 Monocytes/100 WBC (Bld) 1.9 % 0-10 [facility] Blood platelet mean volumeOr dered By: Dr. Jeffery on 12-06-2022 Platelet mean volume (Bld) [Entitic vol] 9.4 fL 6.2-12.0 [facility] Determination of erythrocyte mean corpuscular volume (MCV)Ordered By: Dr. Jeffery on 12-06-2022 MCV (RBC) [Entitic vol] 86.3 fL 80-94 [facility] Hematocrit Auto (Bld) [Volum e fraction]Ordered By: Dr. Jeffery on 12-06-2022 Hematocrit (Bld) [Volume fraction] 43.3 % 40-54 [facility] Ketones Test strip Ql (U)Ord ered By: Jacek Raygoza on 12-06-2022 Ketones Ql (U) Negative Negative [facility] Laboratory - Chemistry and C hemistry - challengeOrdered By: Dr. Jeffery on 12-06-2022 CO2 [Moles/Vol] 25.0 mmol/L 21.0-32.0 [facility] Urea nitrogen/Creatinine [Mass ratio] 15.5 mg/mg 10-20 [facility] Laboratory - Hematology and Cell countsOrdered By: Dr. Jeffery on 12-06-2022 Erythrocyte distribution width (RBC) [Entitic vol] 38.5 fL 35.1-43.9 [facility] Erythrocyte distribution width (RBC) [Ratio] 12.4 % 11.6-14.6 [facility] Immature granulocytes/100 WBC (Bld) 0.500 % 0.0-0.9 [facility] Comment on above: IG% - Immature Granu locytes (promyelocytes, myelocytes and metamyelocytes) > 1% indicates that a LEFT SHIFT is Present. MCH (RBC) [Entitic mass] 29.1 pg 27.0-32.0 [facility] Nucleated RBC/100 WBC (Bld) [Ratio] 0 % 0-5 [facility] MCHC Auto (RBC) [Mass/Vol]Or dered By: Dr. Jeffery on 12-06-2022 MCHC (RBC) [Mass/Vol] 33.7 g/dL 32-36 [facility] Mucus LM Ql (Urine sed)Order ed By: Jacek Raygoza on 12-06-2022 Mucus Ql (Urine sed) 0 SEEN /hpf [facility] Nitrite Test strip Ql (U)Ord ered By: Jacek Raygoza on 12-06-2022 Nitrite Ql (U) Negative Negative [facility] No Panel InformationOrdered By: Dr. Jeffery on 12-06-2022 Estimated Creatinine Clearance Calc 89.56 ml/min [facility] Estimated GFR (MDRD) Amer 86 mL/min >60 [facility] Comment on above: GFR Calc Estimated GFR (MDRD) Non-Af Amer 71 mL/min >60 [facility] Comment on above: Non- GFR Calc Platelets bldOrdered By: Dr. Jeffery on 12-06-2022 Platelets (Bld) [#/Vol] 230 10*3/uL 150-450 [facility] Protein Test strip Ql (U)Ord ered By: Jacek Raygoza on 12-06-2022 Protein Ql (U) Negative Negative [facility] Serum or plasma calcium rosangela urement (mass/volume)Ordered By: Dr. Jeffery on 12-06-2022 Calcium [Mass/Vol] 8.8 mg/dL 8.5-10.1 [facility] Serum or plasma creatinine m easurement (mass/volume)Ordered By: Dr. Jeffery on 12-06-2022 Creatinine [Mass/Vol] 1.16 mg/dL 0.70-1.30 [facility] Comment on above: The validity of the calculated GFR & GFRAA in patients over 70 years has not been determined. Clinical correlation is essential. Serum or plasma urea nitroge n measurement (mass/volume)Ordered By: Dr. Jeffery on 12-06-2022 Urea nitrogen [Mass/Vol] 18 mg/dL 7-18 [facility] Squamous epithelial cells de tection in urine sediment by light microscopyOrdered By: Jacek Raygoza on 12-06-2022 Epithelial cells.squamous LM Ql (Urine sed) 0 SEEN /hpf 0-5 [facility] Thin prep Papanicolaou smear with manual screeningOrdered By: Dr. Jeffery on 12-06-2022 Thin prep Papanicolaou smear with manual screening 6 5-15 [facility] Urine blood detectionOrdered By: Jacek Raygoza on 12-06-2022 RBC Ql (U) Negative Negative [facility] RBC Ql (U) 0 SEEN /hpf 0-5 [facility] Urine clarityOrdered By: Yevgeniy Raygoza on 12-06-2022 Clarity (U) Clear Clear [facility] Urine color determinationOrd ered By: Jacek Raygoza on 12-06-2022 Color (U) Yellow Yellow [facility] Urine glucose detectionOrder ed By: Jacek Raygoza on 12-06-2022 Glucose Ql (U) Normal mg/dl Normal [facility] Urine leukocyte esterase det ection by dipstickOrdered By: Jacek Raygoza on 12-06-2022 Leukocyte esterase Test strip Ql (U) Negative Negative [facility] Urine pHOrdered By: Jacek zamorano on 12-06-2022 pH (U) 8.0 [pH] 5.0 - 8.0 [facility] Urine sediment bacteria coun t by microscopy (number/high power field)Ordered By: Jacek Raygoza on 12-06-2022 Bacteria LM.HPF (Urine sed) [#/Area] 0 /[HPF] None Seen [facility] Urine specific gravity measu rementOrdered By: Jacek Raygoza on 12-06-2022 Specific gravity (U) [Rel density] 1.015 1.002-1.030 [facility] Urobilinogen Auto test strip Ql (U)Ordered By: Jacek Raygoza on 12-06-2022 Urobilinogen Ql (U) Normal mg/dl Normal [facility] CT LUMBAR W/O CONTRASTon CT LUMBAR W/O CONTRAST [place] [address] Patient: DELTA CHEEK Phone#: : 1975 Age: 47 Gender: M Pt. Type: ER Account: [id number] Location: [facility] Ordering: CJ LEIVA Exam Date: 12/04/2022/9:42 Family Phys: ROGELIO COLVIN Charge Code: 720680 Physician: Reynolds Order #: [id number] Dose#: 28.9 mGy PROCEDURE: CT LUMBAR SPINE [...] Dunn MD on 12/04/2022 at 10:28 Normal [facility] BASIC METABOLIC PANELon 05-2 Anion gap [Moles/Vol] 9 mmol/L Low 10 - 20 [facility] Comment on above: Performed By: #### B MP #### [address] [address] Calcium [Mass/Vol] 8.9 mg/dL Normal 8.6 - 10.3 [facility] Comment on above: Performed By: #### B MP #### [address] [address] Chloride [Moles/Vol] 108 mmol/L High 98 - 107 [facility] Comment on above: Performed By: #### B MP #### [address] [address] Creatinine [Mass/Vol] 0.93 mg/dL Normal 0.50 - 1.30 [facility] Comment on above: Performed By: #### B MP #### [address] [address] eGFR MALE >90 Normal >90 [facility] Comment on above: Result Comment: CALC ULATIONS OF ESTIMATED GFR ARE PERFORMED USING THE 2020 CKD-EPI STUDY REFIT EQUATION WITHOUT THE RACE VARIABLE FOR THE IDMS-TRACEABLE CREATININE METHODS. https://jasn.asnjournals.org/content//ASN.828 3968313 Performed By: #### B MP #### [address] [address] Glucose [Mass/Vol] 89 mg/dL Normal 74 - 99 [facility] Comment on above: Performed By: #### B MP #### [address] [address] HCO3 (Bld) [Moles/Vol] 27 mmol/L Normal 21 - 32 [facility] Comment on above: Performed By: #### B MP #### [address] [address] Potassium [Moles/Vol] 3.7 mmol/L Normal 3.5 - 5.3 [facility] Comment on above: Performed By: #### B MP #### [address] [address] Sodium [Moles/Vol] 140 mmol/L Normal 136 - 145 [facility] Comment on above: Performed By: #### B MP #### [address] [address] Urea nitrogen [Mass/Vol] 13 mg/dL Normal 6 - 23 [facility] Comment on above: Performed By: #### B MP #### [address] [address] BNPon 04-04-2022 Natriuretic peptide B (Bld) [Mass/Vol] 16 pg/mL Normal 0 - 99 [facility] Comment on above: Result Comment: . <1 00 pg/mL - Heart failure unlikely 100-299 pg/mL - Intermediate probability of acute heart . failure exacerbation. Correlate with clinical . context and patient history. >=300 pg/mL - Heart Failure likely. Correlate with clinical . context and patient history. BNP testing is performed using different testing methodology at [facility] than at other [facility] [place] [facility]. Direct result comparisons should only be made within the same method. Performed By: #### B NP2 #### [address] [address] CBC AND DIFFERENTIALon 04-04 Basophils (Bld) [#/Vol] 0.10 10*3/uL Normal 0.00 - 0.1 0 [facility] Comment on above: Performed By: #### C BCDF #### [address] [address] Basophils/100 WBC (Bld) 1.1 % Normal 0.0 - 2.0 [facility] Comment on above: Performed By: #### C BCDF #### [address] [address] Eosinophils (Bld) [#/Vol] 0.10 10*3/uL Normal 0.00 - 0.70 [facility] Comment on above: Performed By: #### C BCDF #### [address] [address] Eosinophils/100 WBC (Bld) 2.0 % Normal 0.0 - 6.0 [facility] Comment on above: Performed By: #### C BCDF #### [address] [address] Erythrocyte distribution width (RBC) [Ratio] 12.9 % Normal 11.5 - 14.5 [facility] Comment on above: Performed By: #### C BCDF #### [address] [address] Hematocrit (Bld) [Volume fraction] 44.6 % Normal 41.0 - 52.0 [facility] Comment on above: Performed By: #### C BCDF #### [address] [address] Hemoglobin (Bld) [Mass/Vol] 15.0 g/dL Normal 13.5 - 17.5 [facility] Comment on above: Performed By: #### C BCDF #### [address] [address] Lymphocytes (Bld) [#/Vol] 1.80 10*3/uL Normal 1.20 - 4.80 [facility] Comment on above: Performed By: #### C BCDF #### [address] [address] Lymphocytes/100 WBC (Bld) 28.9 % Normal 13.0 - 44.0 [facility] Comment on above: Performed By: #### C BCDF #### [address] [address] MCHC (RBC) [Mass/Vol] 33.7 g/dL Normal 32.0 - 36.0 [facility] Comment on above: Performed By: #### C BCDF #### [address] [address] MCV (RBC) [Entitic vol] 86 fL Normal 80 - 100 [facility] Comment on above: Performed By: #### C BCDF #### [address] [address] Monocytes (Bld) [#/Vol] 0.50 10*3/uL Normal 0.10 - 1.0 0 [facility] Comment on above: Performed By: #### C BCDF #### [address] [address] Monocytes/100 WBC (Bld) 8.6 % Normal 2.0 - 10.0 [facility] Comment on above: Performed By: #### C BCDF #### [address] [address] Neutrophils (Bld) [#/Vol] 3.60 10*3/uL Normal 1.20 - 7.70 [facility] Comment on above: Result Comment: Perc ent differential counts (%) should be interpreted in the context of the absolute cell counts (cells/L). Performed By: #### C BCDF #### [address] [address] Neutrophils/100 WBC (Bld) 59.4 % Normal 40.0 - 80.0 [facility] Comment on above: Performed By: #### C BCDF #### [address] [address] NUCLEATED RBC 0.1 /100 WBC Normal [facility] Comment on above: Performed By: #### C BCDF #### [address] [address] Platelets (Bld) [#/Vol] 222 10*3/uL Normal 150 - 450 [facility] Comment on above: Performed By: #### C BCDF #### [address] [address] RBC 5.16 x10E12/L Normal 4.50 - 5.90 [facility] Comment on above: Performed By: #### C BCDF #### [address] [address] WBC (Bld) [#/Vol] 6.1 10*3/uL Normal 4.4 - 11.3 [facility] Comment on above: Performed By: #### C BCDF #### [address] [address] CHEST 1 VIEWon 04-04-2022 CHEST 1 VIEW Patient Name: DELTA CHEEK STUDY: CHEST 1 VIEW; 04/04/2022 7:45 pm INDICATION: Chest Pain . COMPARISON: Chest radiograph dated 05/13/2019. ACCESSION NUMBER(S): [id number] ORDERING CLINICIAN: MIA STEIN FINDINGS: CARDIOMEDIASTINAL SILHOUETTE: Cardiomediastinal silhouette is normal in size and configuration. LUNGS/PLEURA: There are no consolidations.The re are no pleural effusions. There is no demonstrated pneumothorax. BONES: Visualized osseous structures are intact. IMPRESSION: 1. No evidence of acute cardiopulmonary process. Electronically signed by: ROSITA NAGEL DO Normal [facility] Electrocardiogram 12 Leadon 04-04-2022 Electrocardiogram 12 Lead Ventricular Rate 71 Atrial Rate 71 P-R Interval 152 QRS Duration 78 Q-T Interval 362 QTC Calculation(Bazett ) 393 P Shumway 52 R Shumway 53 T Shumway 28 QRS Count 11 Q Onset 219 P Onset 143 P Offset 200 T Offset 400 QTC Fredericia 383 Diagnosis Class Normal Diagnosis Please see physician note for formal interpretation confirmed by Scribe Confirmed by Yonathan Frausto () on 04/11/2022 12:40:14 PM Normal [facility] MAGNESIUMon 04-04-2022 Magnesium [Mass/Vol] 2.19 mg/dL Normal 1.60 - 2.40 [facility] Comment on above: Performed By: #### M G #### [facility] [address] [place] [address] Provider Note - ED v3on 03-13 Provider [...] results: Troponin I, High Sensitivity Trending View [id number] 19:42:00 04-Apr-2022 18:56:00 Troponin I, High Sensitivity3 [...] SIGNS: T PRBP SpO2O2(LPM) %FiO2 Method 04-Apr-2022 20:30:00-7580837/7 9 97 room air, no respiratory support 04-Apr-2022 19:30:00-2888730/8 7 97 room air, no respiratory support 04-Apr-2022 19:17:00-8272293/1 15 97 room air, no respiratory support 04-Apr-2022 18:54:00-6492261/9 5 98 room air, no respiratory support 04-Apr-2022 18:23:00-36.555403 57/99 100 room air, no respiratory support [facility] MDM/ED COURSE: PMH: Reviewed PSH: Reviewed [...] for follow (more content not included)... Normal [facility] TROPONIN I, HIGH SENSITIVITY on 04-04-2022 TROPONIN I, HIGH SENSITIVITY 3 ng/L Normal 0 - 20 [facility] Comment on above: Result Comment: . [...] performed using a different testing methodology at [facility] than at other [facility] [place] [facility]. Direct result comparisons should only be made within the same method. Performed By: #### T [facility] #### [address] [address] TROPONIN I, HIGH SENSITIVITY 3 ng/L Normal 0 - 20 [facility] Comment on above: Result Comment: . [...] performed using a different testing methodology at [facility] than at other [facility] [place] [facility]. Direct result comparisons should only be made within the same method. Performed By: #### T [facility] #### [address] [address] Adam 06-13-2021 CNOV Office Visit (KAYLA) -------- DELTA CHEEK JR. ([id number]) 1975 M Date Time Provider Department 06/13/21 10:15 AM FRAN ARCHIBALD During your visit today, we recorded the following information about you: Pulse Blood pressure Weight 78/minute 137/96 113.4 kg Fran Archibald MD 06/13/2021 11:21 AM Signed [facility] NEW PATIENT HISTORY AND PHYSICAL EXAM PATIENT INFO: Delta Cheek Jr. 45 year old REFERRING M.D.: Scar Mensah MD ([facility]) [address] [place] [phone] This consult was requested by Scar Mensah MD for an opinion regarding peyronies disease, and my final recommendations will be communicated to the requesting health care provider by way of the shared medical record for internal providers or letter via the [email or web address] Postal [employer] for external providers. HISTORY Chief [...] Laterality Date - COLONOSCOP W/ OR W/O [facility] SPEC Colonoscopy - REPAIR FEMORAL HERNIA right [...] Surgery Electron (more content not included)... Normal [facility] C Urineon 05-15-2019 C Urine Final Report: No growth Normal [facility] Comment on above: Performed By: #### 2 [id number] #### [facility] [employer] [address] [place] [address] BMPon 05-13-2019 Anion gap [Moles/Vol] 14 mmol/L Normal 10-20 [facility] Comment on above: Performed By: #### 2 052131 #### [facility] [employer] [address] [place] [address] Calcium [Mass/Vol] 9.3 mg/dL Normal 8.6-10.3 [facility] Comment on above: Performed By: #### 2 365282 #### [facility] [employer] [facility] [place] [address] Chloride [Moles/Vol] 102 mmol/L Normal 98-107 [facility] Comment on above: Performed By: #### 2 855071 #### [facility] [employer] [address] [place] [address] CO2 [Moles/Vol] 24.0 mmol/L Normal 21.0-32.0 [facility] Comment on above: Performed By: #### 2 [id number] #### [facility] [employer] [address] [place] [address] Creatinine [Mass/Vol] 1.1 mg/dL Normal 0.5-1.3 [facility] Comment on above: Performed By: #### 2 983846 #### [facility] [employer] [address] [place] [address] Glucose [Mass/Vol] 121 mg/dL High 70-99 [facility] Comment on above: Performed By: #### 2 213956 #### [facility] [employer] [facility] [place] [address] Potassium [Moles/Vol] 3.3 mmol/L Low 3.5-5.3 [facility] Comment on above: Performed By: #### 2 589146 #### [facility] [employer] [facility] [place] [address] Sodium [Moles/Vol] 136 mmol/L Normal 136-145 [facility] Comment on above: Performed By: #### 2 438299 #### [facility] [employer] [address] [place] [address] Urea nitrogen [Mass/Vol] 11 mg/dL Normal 6-23 [facility] Comment on above: Performed By: #### 2 719017 #### [facility] [employer] [address] [place] [address] Urea nitrogen/Creatinine [Mass ratio] 10.0 ratio Normal 5.4-30.0 [facility] Comment on above: Performed By: #### 2 [id number] #### [facility] [employer] [address] [place] [address] CBC w/ Auto Diffon 9 Erythrocyte distribution width (RBC) [Ratio] 12.8 % Normal 11.5-14.5 [facility] Comment on above: Performed By: #### 2 293952 #### [facility] [employer] [address] [place] [address] Hematocrit (Bld) [Volume fraction] 45.0 % Normal 42.0-52.0 [facility] Comment on above: Performed By: #### 2 800820 #### [facility] [employer] [address] [place] [address] Hemoglobin (Bld) [Mass/Vol] 15.3 g/dL Normal 13.5-18.0 [facility] Comment on above: Performed By: #### 2 351728 #### [facility] [employer] [facility] [place] [address] MCH (RBC) [Entitic mass] 29.3 pg Normal 27.0-31.0 [facility] Comment on above: Performed By: #### 2 980289 #### [facility] [employer] [address] [place] [address] MCHC (RBC) [Mass/Vol] 34.1 g/dL Normal 33.0-37.0 [facility] Comment on above: Performed By: #### 2 460138 #### [facility] [employer] [address] [place] [address] MCV (RBC) [Entitic vol] 86.0 fL Normal 78.0-100.[address] [facility] Comment on above: Performed By: #### 2 634501 #### [facility] [employer] [address] [place] [address] Platelet mean volume (Bld) [Entitic vol] 7.6 fL Normal 7.4-11.0 [facility] Comment on above: Performed By: #### 2 982902 #### [facility] [employer] [address] [place] [address] Platelets (Bld) [#/Vol] 176 E3/mcL Normal 130-[address] [facility] Comment on above: Performed By: #### 2 345155 #### [facility] [employer] [address] [place] [address] RBC (Bld) [#/Vol] 5.23 E6/mcL Normal 3.90-6.10 [facility] Comment on above: Performed By: #### 2 142716 #### [facility] [employer] [address] [place] [address] WBC (Bld) [#/Vol] 9.7 E3/mcL Normal 3.6-11.0 [facility] Comment on above: Performed By: #### 2 089846 #### [facility] [employer] [address] [place] [address] CT Abdomen/Pelvis w/o Contra susan 05-13-2019 CT Abdomen/Pelvis w/o Contrast Exam Date/Time: 05/13/2019 16:02 EDT Reason for Exam: kidney stone vs discitis;Other (please specify) Report STUDY: CT Abdomen/Pelvis w/o Contrast; 05/13/2019 4:02 pm INDICATION: Low back pain COMPARISON: None. ACCESSION NUMBER(S): [id number] ORDERING CLINICIAN: Oscar Sidhu TECHNIQUE: Contiguous 3 [...] pm Signed by: Olegario Cross MD Technologist: [facility] MRI Spine Lumbar w/ + w/o Co ntraston 05-13-2019 MRI Spine Lumbar w/ + w/o Contrast Exam Date/Time: 05/13/2019 20:08 EDT Reason for Exam: discitis;Other (please specify) Report STUDY: MRI Spine Lumbar w/ + w/o Contrast; 05/13/2019 8:08 pm INDICATION: Low back pain. COMPARISON: CT abdomen pelvis 05/13/2019 ACCESSION NUMBER(S): [id number] ORDERING CLINICIAN: Oscar Sidhu TECHNIQUE: Multiplanar multisequence [...] pm Signed by: Dave Escalera MD Technologist: DC Normal [facility] Manual Diffon 05-13-2019 Band form neutrophils/100 WBC (Bld) 1 Normal 0-1 [facility] Comment on above: Order Comment: Order Added by Discern Expert. Performed By: #### 2 [id number] #### [facility] [employer] [address] [place] [address] Basophil Man 0 % Normal 0-1 [facility] Comment on above: Order Comment: Order Added by Discern Expert. Performed By: #### 2 [id number] #### [facility] [employer] [address] [place] [address] Eosinophils/100 WBC (Bld) 0 % Normal 0-5 [facility] Comment on above: Order Comment: Order Added by Discern Expert. Performed By: #### 2 [id number] #### [facility] [employer] [address] [place] [address] Lymphocytes/100 WBC (Bld) 3 % Low 14-48 [facility] Comment on above: Order Comment: Order Added by Discern Expert. Performed By: #### 2 [id number] #### [facility] [employer] [address] [place] [address] Monocyte Man 2 % Normal 1-11 [facility] Comment on above: Order Comment: Order Added by Discern Expert. Performed By: #### 2 [id number] #### [facility] [employer] [address] [place] [address] RBC morphology finding Nom (Bld) NORMAL Normal [facility] Comment on above: Order Comment: Order Added by Discern Expert. Performed By: #### [id number] #### ORALIA RemHemo [address] [place] [address] Segs Man 94 % High 37-75 [facility] Comment on above: Order Comment: Order Added by Discern Expert. Performed By: #### [id number] #### ORALIA RemHemo [address] [place] [address] UA Completeon 05-13-2019 Color (U) Yellow Normal Yellow [facility] Comment on above: Order Comment: Strai ght Cath as needed Performed By: #### [id number] #### ORALIA Urinalysis Automated Subsection [address] [place] [address] Glucose (U) [Mass/Vol] Negative Normal Negative [facility] Comment on above: Order Comment: Strai ght Cath as needed Performed By: #### 8 [id number] #### ORALIA Urinalysis Automated Subsection [address] [place] [address] Ketones Ql (U) Negative Normal Negative [facility] Comment on above: Order Comment: Strai ght Cath as needed Performed By: #### 8 [id number] #### ORALIA Urinalysis Automated Subsection [address] [place] [address] RBC (U) [#/Vol] 0-3 Normal 0-3 [facility] Comment on above: Order Comment: Strai ght Cath as needed Performed By: #### 8 [id number] #### ORALIA Urinalysis Automated Subsection [address] [place] [address] UA Blood 1+ Abnormal Negative [facility] Comment on above: Order Comment: Strai ght Cath as needed Performed By: #### 8 [id number] #### ORALIA Urinalysis Automated Subsection [address] [place] [address] UA Clarity SltCloudy Abnormal Clear [facility] Comment on above: Order Comment: Strai ght Cath as needed Performed By: #### 8 [id number] #### ORALIA Urinalysis Automated Subsection [address] [place] [address] UA Leuk Est Negative Normal Negative [facility] Comment on above: Order Comment: Strai ght Cath as needed Performed By: #### [id number] #### ORALIA Urinalysis Automated Subsection [address] [place] [address] UA Nitrite Negative Normal Negative [facility] Comment on above: Order Comment: Strai ght Cath as needed Performed By: #### 8 [id number] #### ORALIA Urinalysis Automated Subsection [address] [place] [address] UA pH 6.0 Normal 4.6-8.0 [facility] Comment on above: Order Comment: Strai ght Cath as needed Performed By: #### 8 [id number] #### ORALIA Urinalysis Automated Subsection [address] [place] [address] UA Protein Negative Normal Negative [facility] Comment on above: Order Comment: Strai ght Cath as needed Performed By: #### 8 [id number] #### ORALIA Urinalysis Automated Subsection [address] [place] [address] UA Spec Grav 1.009 Normal 1.003-1.030 [facility] Comment on above: Order Comment: Strai ght Cath as needed Performed By: #### 8 [id number] #### ORALIA Urinalysis Automated Subsection [address] [place] [address] UA Urobilinogen Negative Normal [facility] Comment on above: Order Comment: [...] within 24 hours. Performed By: #### 8 [id number] #### ORALIA Urinalysis Automated Subsection [address] [place] [address] UA WBC 0-5 Normal 0-5 [facility] Comment on above: Order Comment: Strai ght Cath as needed Performed By: #### 8 [id number] #### ORALIA Urinalysis Automated Subsection [address] [place] [address] Urobilinogen Qn (U) Negative Normal Negative [facility] Comment on above: Order Comment: Strai ght Cath as needed Performed By: #### 8 [id number] #### ORALIA Urinalysis Automated Subsection [address] [place] [address] XR Chest Single Viewon 05-13 XR Chest Single View Exam Date/Time: 05/13/2019 14:43 EDT Reason for Exam: Shortness of breath (SOB) Report STUDY: XR Chest Single View; 05/13/2019 2:43 pm INDICATION: Shortness of breath (SOB). COMPARISON: None. ACCESSION NUMBER(S): [id number] ORDERING CLINICIAN: Oscar Sidhu FINDINGS: BONY STRUCTURES: [...] Signed by: Judah Beauchamp MD Technologist: TRD Normal [facility] eGFRon 05-13-2019 GFR/1.73 sq M predicted among non-blacks MDRD (S/P/Bld) [Vol rate/Area] mL/min/{1.73_m2} Normal [facility] Comment on above: Order Comment: Order added by Discern Expert. Performed By: #### [id number] #### ORALIA RemChem [address] [place] [address] zzplt morphon 05-13-2019 Platelet morphology finding Nom (Bld) NORMAL Normal [facility] Comment on above: Performed By: #### [id number] #### ORALIA RemHemo [address] [place] [id number] Platelets (Bld) [#/Vol] NORMAL Normal [facility] Comment on above: Performed By: #### 9 [id number] #### ORALIA RemHemo [address] [place] [id number] Vital Signs Date Time Vital Sign Value Performing Clinician Facility 05-20-2025 15:14-0400 Diastolic blood pressure 90 mm[Hg] Ruiz Gifford MD Work Phone: [facility] 05-20-2025 15:14-0400 Systolic blood pressure 150 mm[Hg] Ruiz Gifford MD Work Phone: [facility] 05-20-2025 14:44-0400 Body height 188 cm Ruiz Gifford MD Work Phone: [facility] 05-20-2025 14:44-0400 Body mass index (BMI) [Ratio] 33.25 kg/m2 Ruiz Gifford MD Work Phone: [facility] 05-20-2025 14:44-0400 Body weight 117.48 kg Ruiz Gifford MD Work Phone: [facility] 05-20-2025 14:44-0400 Heart rate 70 /min Ruiz Gifford MD Work Phone: [facility] 05-20-2025 14:44-0400 Respiratory rate 18 /min Ruiz Gifford MD Work Phone: [facility] 05-20-2025 14:44-0400 SaO2% (BldA) [Mass fraction] 100 % Ruiz Gifford MD Work Phone: [facility] 05-16-2025 21:51-0400 Body temperature 97.8 [degF] Dr. Rogelio Colvin MD Work Phone: [facility] 05-16-2025 21:51-0400 Diastolic blood pressure 97 mm[Hg] Dr. Rogelio Colvin MD Work Phone: [facility] 05-16-2025 21:51-0400 Heart rate 76 /min Dr. Rogelio Colvin MD Work Phone: [facility] 05-16-2025 21:51-0400 Respiratory rate 18 /min Dr. Rogelio Colvin MD Work Phone: [facility] 05-16-2025 21:51-0400 SaO2% (BldA) [Mass fraction] 99 % Dr. Rogelio Colvin MD Work Phone: [facility] 05-16-2025 21:51-0400 Systolic blood pressure 136 mm[Hg] Dr. Rogelio Colvin MD Work Phone: [facility] 05-16-2025 20:04-0400 Body height 187.[address] Rogelio Colvin MD Work Phone: [facility] 05-16-2025 20:04-0400 Body mass index (BMI) [Ratio] 30.2 kg/m2 Dr. Rogelio Colvin MD Work Phone: 2(538)396-666022 [place] [address] 05-16-2025 20:04-0400 Body weight 106.[address] Rogelio Colvin MD Work Phone: 8(491)114-400518 [place] [address] 04-16-2025 21:19-0400 Body temperature 97.9 [degF] Dr. Rogelio Colvin MD Work Phone: 1(771)315-348918 [place] [address] 04-16-2025 21:19-0400 Diastolic blood pressure 76 mm[Hg] Dr. Rogelio Colvin MD Work Phone: 6(426)778-206418 [place] [address] 04-16-2025 21:19-0400 Heart rate 76 /min Dr. Rogelio Colvin MD Work Phone: 5(732)253-565618 [place] [address] 04-16-2025 21:19-0400 Respiratory rate 16 /min Dr. Rogelio Colvin MD Work Phone: 7(133)486-910818 [place] [address] 04-16-2025 21:19-0400 SaO2% (BldA) [Mass fraction] 97 % Dr. Rogelio Colvin MD Work Phone: 6(948)797-367118 [place] [address] 04-16-2025 21:19-0400 Systolic blood pressure 140 mm[Hg] Dr. Rogelio Colvin MD Work Phone: 7(573)269-898018 [place] [address] 04-16-2025 20:05-0400 Body height 187.[address] Rogelio Colvin MD Work Phone: 0(959)675-870618 [place] [address] 04-16-2025 20:05-0400 Body mass index (BMI) [Ratio] 33.3 kg/m2 Dr. Rogelio Colvin MD Work Phone: 8(069)055-367118 [place] [address] 04-16-2025 20:05-0400 Body weight 117.[address] Rogelio Colvin MD Work Phone: 7(076)930-454918 [place] [address] 03-10-2025 11:15-0400 Body temperature 98.4 [degF] Dr. Rogelio Colvin MD Work Phone: 7(781)201-134718 [place] [address] 03-10-2025 11:15-0400 Body weight 115.[address] Rogelio Colvin MD Work Phone: [facility] 03-10-2025 11:15-0400 Diastolic blood pressure 91 mm[Hg] Dr. Rogelio Colvin MD Work Phone: [facility] 03-10-2025 11:15-0400 Heart rate 98 /min Dr. Rogelio Colvin MD Work Phone: 2(631)813-982122 [place] [address] 03-10-2025 11:15-0400 Respiratory rate 16 /min Dr. Rogelio Colvin MD Work Phone: 4(790)258-159722 [place] [address] 03-10-2025 11:15-0400 SaO2% (BldA) [Mass fraction] 97 % Dr. Rogelio Colvin MD Work Phone: 3(422)424-977522 [place] [address] 03-10-2025 11:15-0400 Systolic blood pressure 142 mm[Hg] Dr. Rogelio Colvin MD Work Phone: 7(411)087-677322 [place] [address] 03-04-2025 08:06-0400 Body temperature 97 [degF] Dr. Rogelio Colvin MD Work Phone: [facility] 03-04-2025 08:06-0400 Diastolic blood pressure 88 mm[Hg] Dr. Rogelio Colvin MD Work Phone: [facility] 03-04-2025 08:06-0400 Heart rate 80 /min Dr. Rogelio Colvin MD Work Phone: [facility] 03-04-2025 08:06-0400 Respiratory rate 18 /min Dr. Rogelio Colvin MD Work Phone: [facility] 03-04-2025 08:06-0400 SaO2% (BldA) [Mass fraction] 99 % Dr. Rogelio Colvin MD Work Phone: 5(182)312-863322 [place] [address] 03-04-2025 08:06-0400 Systolic blood pressure 141 mm[Hg] Dr. Rogelio Colvin MD Work Phone: [facility] 03-03-2025 10:19-0400 Body mass index (BMI) [Ratio] 32.3 kg/m2 Dr. Rogelio Colvin MD Work Phone: [facility] 03-03-2025 10:19-0400 Body weight 114.[address] Rogelio Colvin MD Work Phone: [facility] 02-16-2025 15:27-0400 Body temperature 98 [degF] Dr. Rogelio Colvin MD Work Phone: [facility] 02-16-2025 15:27-0400 Body weight 120.[address] Rogelio Colvin MD Work Phone: [facility] 02-16-2025 15:27-0400 Diastolic blood pressure 98 mm[Hg] Dr. Rogelio Colvin MD Work Phone: [facility] 02-16-2025 15:27-0400 Heart rate 72 /min Dr. Rogelio Colvin MD Work Phone: 3(662)679-348542 [place] [address] 02-16-2025 15:27-0400 Respiratory rate 16 /min Dr. Rogelio Colvin MD Work Phone: [facility] 02-16-2025 15:27-0400 SaO2% (BldA) [Mass fraction] 98 % Dr. Rogelio Colvin MD Work Phone: [facility] 02-16-2025 15:27-0400 Systolic blood pressure 156 mm[Hg] Dr. Rogelio Colvin MD Work Phone: [facility] 02-09-2025 16:59-0400 Body temperature 98 [degF] Dr. Rogelio Colvin MD Work Phone: [facility] 02-09-2025 16:59-0400 Diastolic blood pressure 94 mm[Hg] Dr. Rogelio Colvin MD Work Phone: [facility] 02-09-2025 16:59-0400 Heart rate 72 /min Dr. Rogelio Colvin MD Work Phone: [facility] 02-09-2025 16:59-0400 Respiratory rate 15 /min Dr. Rogelio Colvin MD Work Phone: [facility] 02-09-2025 16:59-0400 SaO2% (BldA) [Mass fraction] 97 % Dr. Rogelio Colvin MD Work Phone: 8(039)270-263722 [place] [address] 02-09-2025 16:59-0400 Systolic blood pressure 130 mm[Hg] Dr. Rogelio Colvin MD Work Phone: 5(822)818-611118 [place] [address] 02-09-2025 13:08-0400 Body height 188.[address] Rogelio Colvin MD Work Phone: 5(987)357-700618 [place] [address] 02-09-2025 13:08-0400 Body mass index (BMI) [Ratio] 32.7 kg/m2 Dr. Rogelio Colvin MD Work Phone: 7(399)731-910418 [place] [address] 02-09-2025 13:08-0400 Body weight 115.[address] Rogelio Colvin MD Work Phone: 1(653)638-938218 [place] [address] 02-03-2025 09:53-0400 Body height 188.[address] Rogelio Colvin MD Work Phone: 9(953)161-093218 [place] [address] 02-03-2025 09:53-0400 Body mass index (BMI) [Ratio] 33 kg/m2 Dr. Rogelio Colvin MD Work Phone: 7(234)505-063018 [place] [address] 02-03-2025 09:53-0400 Body weight 117.[address] Rogelio Colvin MD Work Phone: 9(402)474-328818 [place] [address] 01-27-2025 13:43-0400 Body temperature 98 [degF] Dr. Rogelio Colvin MD Work Phone: 8(255)322-012318 [place] [address] 01-27-2025 13:43-0400 Body weight 115.[address] Rogelio Colvin MD Work Phone: 0(635)005-716318 [place] [address] 01-27-2025 13:43-0400 Diastolic blood pressure 91 mm[Hg] Dr. Rogelio Colvin MD Work Phone: 2(166)528-951418 [place] [address] 01-27-2025 13:43-0400 Heart rate 95 /min Dr. Rogelio Colvin MD Work Phone: 0(438)502-952922 [place] [address] 01-27-2025 13:43-0400 Respiratory rate 16 /min Dr. Rogelio Colvin MD Work Phone: [facility] 01-27-2025 13:43-0400 SaO2% (BldA) [Mass fraction] 98 % Dr. Rogelio Colvin MD Work Phone: [facility] 01-27-2025 13:43-0400 Systolic blood pressure 136 mm[Hg] Dr. Rogelio Colvin MD Work Phone: 4(976)036-703722 [place] [address] 01-20-2025 14:39-0400 Body temperature 98.2 [degF] Dr. Rogelio Colvin MD Work Phone: 0(363)604-398322 [place] [address] 01-20-2025 14:39-0400 Diastolic blood pressure 96 mm[Hg] Dr. Rogelio Colvin MD Work Phone: 2(548)450-811822 [place] [address] 01-20-2025 14:39-0400 Heart rate 85 /min Dr. Rogelio Colvin MD Work Phone: 4(448)742-528622 [place] [address] 01-20-2025 14:39-0400 Respiratory rate 17 /min Dr. Rogelio Colvin MD Work Phone: [facility] 01-20-2025 14:39-0400 SaO2% (BldA) [Mass fraction] 93 % Dr. Rogelio Colvin MD Work Phone: [facility] 01-20-2025 14:39-0400 Systolic blood pressure 147 mm[Hg] Dr. Rogelio Colvin MD Work Phone: [facility] 01-19-2025 17:45-0400 Inhaled oxygen flow rate 4 L/min Dr. Rogelio Colvin MD Work Phone: [facility] 01-19-2025 16:09-0400 Body height 188.[address] Rogelio Colvin MD Work Phone: [facility] 01-19-2025 16:09-0400 Body mass index (BMI) [Ratio] 32.7 kg/m2 Dr. Rogelio Colvin MD Work Phone: [facility] 01-19-2025 16:09-0400 Body weight 115.[address] Rogelio Colvin MD Work Phone: 6(705)108-493422 [place] [address] 01-14-2025 10:56-0500 Body weight 114.[address] Rogelio Colvin MD Work Phone: 3(731)185-908818 [place] [address] 01-13-2025 13:20-0500 Body mass index (BMI) [Ratio] 32.5 kg/m2 Dr. Rogelio Colvin MD Work Phone: 3(113)829-177218 [place] [address] 01-02-2025 10:47-0500 Body temperature 98.4 [degF] Dr. Rogelio Colvin MD Work Phone: 4(699)276-974618 [place] [address] 01-02-2025 10:47-0500 Body weight 114.[address] Rogelio Colvin MD Work Phone: 5(210)247-687618 [place] [address] 01-02-2025 10:47-0500 Diastolic blood pressure 87 mm[Hg] Dr. Rogelio Colvin MD Work Phone: 6(309)123-708518 [place] [address] 01-02-2025 10:47-0500 Heart rate 85 /min Dr. Rogelio Colvin MD Work Phone: 8(731)667-683018 [place] [address] 01-02-2025 10:47-0500 Respiratory rate 16 /min Dr. Rogelio Colvin MD Work Phone: 3(359)532-796218 [place] [address] 01-02-2025 10:47-0500 SaO2% (BldA) [Mass fraction] 98 % Dr. Rogelio Colvin MD Work Phone: 4(199)200-820922 [place] [address] 01-02-2025 10:47-0500 Systolic blood pressure 132 mm[Hg] Dr. Rogelio Colvin MD Work Phone: 2(927)833-760522 [place] [address] 11-04-2024 02:15-0500 Body temperature 98.6 [degF] Dr. Rogelio Colvin MD Work Phone: 2(842)661-588922 [place] [address] 11-04-2024 02:15-0500 Diastolic blood pressure 93 mm[Hg] Dr. Rogelio Colvin MD Work Phone: 5(631)043-132022 [place] [address] 11-04-2024 02:15-0500 Heart rate 100 /min Dr. Rogelio Colvin MD Work Phone: [facility] 11-04-2024 02:15-0500 Respiratory rate 18 /min Dr. Rogelio Colvin MD Work Phone: [facility] 11-04-2024 02:15-0500 SaO2% (BldA) [Mass fraction] 95 % Dr. Rogelio Colvin MD Work Phone: [facility] 11-04-2024 02:15-0500 Systolic blood pressure 160 mm[Hg] Dr. Rogelio Colvin MD Work Phone: [facility] 11-03-2024 23:51-0500 Body mass index (BMI) [Ratio] 27.2 kg/m2 Dr. Rogelio Colvin MD Work Phone: [facility] 11-03-2024 23:51-0500 Body weight 96.[address] Rogelio Colvin MD Work Phone: [facility] 10-18-2024 23:18-0500 Body temperature 97.59 [degF] Mendy Tyler DO Work Phone: 9(397)825-859055 [place] [address] 10-18-2024 23:18-0500 Diastolic blood pressure 108 mm[Hg] Mendy Tyler DO Work Phone: 1(572)711-463055 [place] [address] 10-18-2024 23:18-0500 Heart rate 79 /min Mendy Tyler DO Work Phone: [facility] 10-18-2024 23:18-0500 Respiratory rate 16 /min Mendy Tyler DO Work Phone: [facility] 10-18-2024 23:18-0500 SaO2% (BldA) [Mass fraction] 97 % Mendy Tyler DO Work Phone: [facility] 10-18-2024 23:18-0500 Systolic blood pressure 150 mm[Hg] Mendy Tyler DO Work Phone: 7(023)166-139655 [place] [address] 10-18-2024 20:31-0500 Body height 188 cm Mendy Tyler DO Work Phone: [facility] 10-18-2024 20:31-0500 Body mass index (BMI) [Ratio] 32.1 kg/m2 Mendy Tyler DO Work Phone: [facility] 10-18-2024 20:31-0500 Body weight 113.4 kg Mendy Tyler DO Work Phone: [facility] 10-16-2023 11:51-0500 Body temperature 98.2 [degF] Dr. Rogelio Colvin Work Phone: [facility] 10-16-2023 11:51-0500 Body weight 113.[address] Rogelio Colvin Work Phone: [facility] 10-16-2023 11:51-0500 Diastolic blood pressure 81 mm[Hg] Dr. Rogelio Colvin Work Phone: [facility] 10-16-2023 11:51-0500 Heart rate 81 /min Dr. Rogelio Colvin Work Phone: [facility] 10-16-2023 11:51-0500 Respiratory rate 16 /min Dr. Rogelio Colvin Work Phone: [facility] 10-16-2023 11:51-0500 SaO2% (BldA) [Mass fraction] 97 % Dr. Rogelio Colvin Work Phone: [facility] 10-16-2023 11:51-0500 Systolic blood pressure 127 mm[Hg] Dr. Rogelio Colvin Work Phone: [facility] 05-20-2023 20:09-0400 Respiratory rate 18 /min Dr. Rogelio Colvin Work Phone: [facility] 05-20-2023 18:02-0400 Body height 187.[address] Rogelio Colvin Work Phone: [facility] 05-20-2023 18:02-0400 Body mass index (BMI) [Ratio] 29.6 kg/m2 Dr. Rogelio Colvin Work Phone: [facility] 05-20-2023 18:02-0400 Body temperature 96.8 [degF] Dr. Rogelio Colvin Work Phone: 4(518)776-039422 [place] [address] 05-20-2023 18:02-0400 Body weight 104.[address] Rogelio Colvin Work Phone: 2(906)883-652022 [place] [address] 05-20-2023 18:02-0400 Diastolic blood pressure 64 mm[Hg] Dr. Rogelio Colvin Work Phone: 8(113)474-374422 [place] [address] 05-20-2023 18:02-0400 Heart rate 78 /min Dr. Rogelio Colvin Work Phone: 2(072)750-230322 [place] [address] 05-20-2023 18:02-0400 SaO2% (BldA) [Mass fraction] 99 % Dr. Rogelio Colvin Work Phone: 9(492)293-357022 [place] [address] 05-20-2023 18:02-0400 Systolic blood pressure 139 mm[Hg] Dr. Rogelio Colvin Work Phone: 3(815)877-476222 [place] [address] 05-02-2023 10:38-0400 Body temperature 98.2 [degF] Dr. Rogelio Colvin Work Phone: 1(870)129-718422 [place] [address] 05-02-2023 10:38-0400 Body weight 106.[address] Rogelio Colvin Work Phone: 7(025)088-317018 [place] [address] 05-02-2023 10:38-0400 Diastolic blood pressure 90 mm[Hg] Dr. Rogelio Colvin Work Phone: 7(584)573-298718 [place] [address] 05-02-2023 10:38-0400 Heart rate 80 /min Dr. Rogelio Colvin Work Phone: 5(040)396-950622 [place] [address] 05-02-2023 10:38-0400 Respiratory rate 16 /min Dr. Rogelio Colvin Work Phone: 9(650)096-965022 [place] [address] 05-02-2023 10:38-0400 SaO2% (BldA) [Mass fraction] 96 % Dr. Rogelio Colvin Work Phone: 0(242)288-638822 [place] [address] 05-02-2023 10:38-0400 Systolic blood pressure 137 mm[Hg] Dr. Rogelio Colvin Work Phone: [facility] 04-17-2023 08:54-0400 Body height 187.[address] Rogelio Colvin Work Phone: [facility] 04-17-2023 08:54-0400 Body weight 105.[address] Rogelio Colvin Work Phone: 4(494)959-063822 [place] [address] 04-17-2023 08:02-0400 Body mass index (BMI) [Ratio] 29.7 kg/m2 Dr. Rogelio Colvin Work Phone: 0(806)830-649522 [place] [address] 04-06-2023 21:31-0400 Body mass index (BMI) [Ratio] 32.3 kg/m2 Dr. Rogelio Colvin Work Phone: 7(974)286-379722 [place] [address] 04-06-2023 21:31-0400 Body weight 108.[address] Rogelio Colvin Work Phone: 4(492)798-708909 [address] 04-06-2023 21:23-0400 Body height 182.[address] Rogelio Colvin Work Phone: 5(682)641-617422 [place] [address] 04-06-2023 21:23-0400 Body temperature 98 [degF] Dr. Rogelio Colvin Work Phone: 9(781)616-143518 [place] [address] 04-06-2023 21:23-0400 Diastolic blood pressure 112 mm[Hg] Dr. Rogelio Colvin Work Phone: 1(671)445-619209 [address] 04-06-2023 21:23-0400 Heart rate 86 /min Dr. Rogelio Colvin Work Phone: [facility] 04-06-2023 21:23-0400 Respiratory rate 16 /min Dr. Rogelio Colvin Work Phone: [facility] 04-06-2023 21:23-0400 SaO2% (BldA) [Mass fraction] 98 % Dr. Rogelio Colvin Work Phone: [facility] 04-06-2023 21:23-0400 Systolic blood pressure 143 mm[Hg] Dr. Rogelio Colvin Work Phone: [facility] 03-26-2023 14:39-0400 Body weight 105.[address] Rogelio Colvin Work Phone: [facility] 03-26-2023 14:39-0400 Diastolic blood pressure 82 mm[Hg] Dr. Rogelio Colvin Work Phone: [facility] 03-26-2023 14:39-0400 Heart rate 64 /min Dr. Rogelio Colvin Work Phone: 2(492)221-669822 [place] [address] 03-26-2023 14:39-0400 Respiratory rate 16 /min Dr. Rogelio Colvin Work Phone: 6(725)771-733422 [place] [address] 03-26-2023 14:39-0400 SaO2% (BldA) [Mass fraction] 99 % Dr. Rogelio Colvin Work Phone: 0(512)313-846922 [place] [address] 03-26-2023 14:39-0400 Systolic blood pressure 129 mm[Hg] Dr. Rogelio Colvin Work Phone: 6(305)877-064722 [place] [address] 02-13-2023 14:21-0400 Diastolic blood pressure 76 mm[Hg] Dr. Rogelio Colvin Work Phone: 9(214)475-281522 [place] [address] 02-13-2023 14:21-0400 Heart rate 91 /min Dr. Rogelio Colvin Work Phone: 0(606)311-980822 [place] [address] 02-13-2023 14:21-0400 SaO2% (BldA) [Mass fraction] 97 % Dr. Rogelio Colvin Work Phone: 7(119)243-866622 [place] [address] 02-13-2023 14:21-0400 Systolic blood pressure 122 mm[Hg] Dr. Rogelio Colvin Work Phone: 5(438)904-046522 [place] [address] 01-25-2023 11:07-0400 Body height 188.[address] Rogelio Colvin Work Phone: 0(035)023-661622 [place] [address] 01-17-2023 08:28-0500 Body temperature 99.1 [degF] Dr. Rogelio Colvin Work Phone: 0(193)139-687822 [place] [address] 01-17-2023 08:28-0500 Body weight 108.[address] Rogelio Colvin Work Phone: [facility] 01-17-2023 08:28-0500 Diastolic blood pressure 93 mm[Hg] Dr. Rogelio Colvin Work Phone: [facility] 01-17-2023 08:28-0500 Heart rate 80 /min Dr. Rogelio Colvin Work Phone: [facility] 01-17-2023 08:28-0500 Respiratory rate 18 /min Dr. Rogelio Colvin Work Phone: [facility] 01-17-2023 08:28-0500 SaO2% (BldA) [Mass fraction] 99 % Dr. Rogelio Colvin Work Phone: [facility] 01-17-2023 08:28-0500 Systolic blood pressure 134 mm[Hg] Dr. Rogelio Colvin Work Phone: [facility] 01-11-2023 17:00-0500 Respiratory rate 18 /min Dr. Rogelio Colvin Work Phone: [facility] 01-11-2023 15:40-0500 SaO2% (BldA) [Mass fraction] 97 % Dr. Rogelio Colvin Work Phone: [facility] 01-11-2023 15:31-0500 Diastolic blood pressure 94 mm[Hg] Dr. Rogelio Colvin Work Phone: [facility] 01-11-2023 15:31-0500 Systolic blood pressure 138 mm[Hg] Dr. Rogelio Colvin Work Phone: [facility] 01-11-2023 15:10-0500 Heart rate 72 /min Dr. Rogelio Colvin Work Phone: [facility] 01-11-2023 14:00-0500 Body height 188.[address] Rogelio Colvin Work Phone: [facility] 01-11-2023 14:00-0500 Body mass index (BMI) [Ratio] 29.5 kg/m2 Dr. Rogelio Colvin Work Phone: 1(678)991-784322 [place] [address] 01-11-2023 14:00-0500 Body temperature 95.9 [degF] Dr. Rogelio Colvin Work Phone: [facility] 01-11-2023 14:00-0500 Body weight 104.[address] Rogelio Colvin Work Phone: 3(757)894-928922 [place] [address] 01-11-2023 09:51-0500 Body temperature 98.5 [degF] Dr. Rogelio Colvin Work Phone: 0(417)778-887722 [place] [address] 01-11-2023 09:51-0500 Diastolic blood pressure 87 mm[Hg] Dr. Rogelio Colvin Work Phone: 1(493)594-938322 [place] [address] 01-11-2023 09:51-0500 Heart rate 79 /min Dr. Rogelio Colvin Work Phone: 7(482)054-731122 [place] [address] 01-11-2023 09:51-0500 Respiratory rate 14 /min Dr. Rogelio Colvin Work Phone: 6(730)550-257522 [place] [address] 01-11-2023 09:51-0500 SaO2% (BldA) [Mass fraction] 98 % Dr. Rogelio Colvin Work Phone: 5(633)830-163722 [place] [address] 01-11-2023 09:51-0500 Systolic blood pressure 135 mm[Hg] Dr. Rogelio Colvin Work Phone: 9(704)807-080209 [address] 01-10-2023 10:18-0500 Body height 187.[address] Rogelio Colvin Work Phone: 6(817)471-606022 [place] [address] 01-10-2023 10:18-0500 Body weight [address] Rogelio Colvin Work Phone: 5(801)119-996722 [place] [address] 01-09-2023 15:22-0500 Body mass index (BMI) [Ratio] 29.7 kg/m2 Dr. Rogelio Colvin Work Phone: 0(711)267-307722 [place] [address] 01-04-2023 14:36-0500 Body temperature 97.8 [degF] Dr. Rogelio Colvin Work Phone: 2(112)607-546422 [place] [address] 01-04-2023 14:36-0500 Body weight 105.[address] Rogelio Colvin Work Phone: [facility] 01-04-2023 14:36-0500 Diastolic blood pressure 97 mm[Hg] Dr. Rogelio Colvin Work Phone: [facility] 01-04-2023 14:36-0500 Heart rate 110 /min Dr. Rogelio Colvin Work Phone: [facility] 01-04-2023 14:36-0500 Respiratory rate 18 /min Dr. Rogelio Colvin Work Phone: [facility] 01-04-2023 14:36-0500 Systolic blood pressure 141 mm[Hg] Dr. Roeglio Colvin Work Phone: [facility] 01-04-2023 09:22-0500 Body height 187.[address] Rogelio Colvin Work Phone: [facility] 01-04-2023 09:22-0500 Body mass index (BMI) [Ratio] 30 kg/m2 Dr. Rogelio Colvin Work Phone: [facility] 01-04-2023 09:22-0500 Body weight 106.[address] Rogelio Colvin Work Phone: [facility] 12-31-2022 22:06-0500 Diastolic blood pressure 102 mm[Hg] Dr. Rogelio Colvin Work Phone: [facility] 12-31-2022 22:06-0500 Heart rate 80 /min Dr. Rogelio Colvin Work Phone: [facility] 12-31-2022 22:06-0500 Respiratory rate 16 /min Dr. Rogelio Colvin Work Phone: [facility] 12-31-2022 22:06-0500 SaO2% (BldA) [Mass fraction] 98 % Dr. Rogelio Colvin Work Phone: [facility] 12-31-2022 22:06-0500 Systolic blood pressure 143 mm[Hg] Dr. Rogelio Colvin Work Phone: [facility] 12-31-2022 17:48-0500 Body height 187.[address] Rogelio Colvin Work Phone: [facility] 12-31-2022 17:48-0500 Body mass index (BMI) [Ratio] 32.1 kg/m2 Dr. Rogelio Colvin Work Phone: [facility] 12-31-2022 17:48-0500 Body temperature 98.4 [degF] Dr. Rogelio Colvin Work Phone: 4(730)046-364822 [place] [address] 12-31-2022 17:48-0500 Body weight 113.[address] Rogelio Colvin Work Phone: 8(725)288-097809 [address] 12-07-2022 08:20-0500 Body temperature 98 [degF] Dr. Rogelio Colvin Work Phone: 8(685)497-289909 [address] 12-07-2022 08:20-0500 Diastolic blood pressure 72 mm[Hg] Dr. Rogelio Colvin Work Phone: 7(932)039-318409 [address] 12-07-2022 08:20-0500 Heart rate 61 /min Dr. Rogelio Colvin Work Phone: 3(919)173-149409 [address] 12-07-2022 08:20-0500 Respiratory rate 16 /min Dr. Rogelio Colvin Work Phone: 2(737)485-843922 [place] [address] 12-07-2022 08:20-0500 SaO2% (BldA) [Mass fraction] 95 % Dr. Rogelio Colvin Work Phone: 5(720)470-427122 [place] [address] 12-07-2022 08:20-0500 Systolic blood pressure 133 mm[Hg] Dr. Rogelio Colvin Work Phone: 7(601)100-221122 [place] [address] 12-06-2022 12:36-0500 Body height 188.[address] Rogelio Colvin Work Phone: 5(365)007-069422 [place] [address] 12-06-2022 12:36-0500 Body mass index (BMI) [Ratio] 32.5 kg/m2 Dr. Rogelio Colvin Work Phone: 3(062)476-811922 [place] [address] 12-06-2022 12:36-0500 Body weight 115.[address] Rogelio Colvin Work Phone: [facility] 12-06-2022 09:01-0500 Body temperature 98.1 [degF] [facility] 12-06-2022 09:01-0500 Diastolic blood pressure 68 mm[Hg] [facility] 12-06-2022 09:01-0500 Heart rate 64 /min [facility] 12-06-2022 09:01-0500 Respiratory rate 18 /min [facility] 12-06-2022 09:01-0500 SaO2% (BldA) [Mass fraction] 96 % [facility] 12-06-2022 09:01-0500 Systolic blood pressure 128 mm[Hg] [facility] 12-06-2022 04:16-0500 Body height 187.96 cm [facility] 12-06-2022 04:16-0500 Body mass index (BMI) [Ratio] 32.6 kg/m2 [facility] 12-06-2022 04:16-0500 Body weight 115.3 kg [facility] Encounters Encounter Date Encounter Type Care Provider Facility Start: 05-20-2025 End: 05-20-2025 ambulatory RUIZ GIFFORD [facility] Start: 05-20-2025 End: 05-20-2025 Office outpatient new 30 minutes Ruiz Gifford MD Work Phone: [facility] Comment on above: Ileofemoral deep vei n thrombosis, bilateral (HCC) (Primary Dx) Start: 05-20-2025 End: 05-20-2025 Telephone encounter Ruiz Gifford MD Work Phone: [facility] Comment on above: Other Start: 05-16-2025 End: 05-16-2025 Emergency department patient visit Dr. Rogelio Colvin MD Work Phone: -Emergency Department Work Phone: Start: 04-16-2025 End: 04-16-2025 Emergency department patient visit Dr. Rogelio Colvin MD Work Phone: -Emergency Department Work Phone: Start: 03-20-2025 End: 03-20-[address] Dung Aguirre MD -[facility] Work Phone: Start: 03-20-2025 End: 03-20-2025 ambulatory Dung Aguirre Facility:[facility] Start: 03-10-2025 End: 03-10-2025 Patient encounter procedure Teena JULES -[facility] Work Phone: Start: 03-10-2025 End: 03-10-2025 ambulatory Teena Jacques Facility:[facility] Start: 03-09-2025 End: 03-09-2025 Patient encounter procedure Nadiajamison Brandt [facility] Work Phone: Start: 03-09-2025 End: 03-09-2025 ambulatory Nadia Brandt Facility:[facility] Start: 03-04-2025 Non-patient / Non-visit Teena Jacques [facility] Start: 03-03-2025 Non-patient / Non-visit Dr. Michelle herrera MD -[facility] Start: 03-02-2025 Non-patient / Non-visit Dr. Michelle herrera MD -[facility] Start: 03-02-2025 ambulatory Michelle Mccall Facility:[facility] Start: 03-02-2025 End: 03-04-2025 Evaluation and management of inpatient Dr. Michelle Mccall MD -Progressive Care Unit Work Phone: Start: 02-16-2025 End: 02-16-[address] Michelle Mccall MD -[facility] Work Phone: Start: 02-16-2025 End: 02-16-2025 ambulatory Michelle Stefany Facility:[facility] Start: 02-09-2025 ambulatory [facility] Start: 02-09-2025 Non-patient / Non-visit Dr. Michelle herrera MD -[facility] Start: 02-09-2025 End: 02-09-2025 Emergency department patient visit Dr. Rogelio Colvin MD Work Phone: -Emergency Department Work Phone: Start: 02-03-2025 End: 02-03-2025 Patient encounter procedure Nadia UJLES -[facility] Work Phone: Start: 02-03-2025 End: 02-03-2025 [facility] Start: 01-27-2025 End: 01-27-2025 Patient encounter procedure Teena JULES -[facility] Work Phone: Start: 01-27-2025 End: 01-27-[address] Rogelio Colvin MD Work Phone: [facility] Work Phone: Start: 01-27-2025 End: 01-27-2025 ambulatory [facility] Facility:[facility] Start: 01-20-2025 Non-patient / Non-visit Teena JULES [facility] Start: 01-19-2025 End: 01-20-2025 ambulatory [facility] Facility:[facility] Start: 01-19-2025 End: 01-20-2025 Evaluation and management of inpatient Dr. Michelle Mccall MD -Progressive Care Unit Work Phone: Start: 01-19-2025 End: 01-20-[address] Rogelio Colvin MD Work Phone: [facility] Work Phone: Start: 01-19-2025 ambulatory Rogelio [facility] Facility[facility] Start: 01-19-2025 Non-patient / Non-visit Dr. Michelle herrera MD -[facility] Start: 01-14-2025 ambulatory Rogelio [facility] Start: 01-14-2025 Non-patient / Non-visit Dr. Michelle hererra MD -[facility] Start: 01-14-2025 End: 01-14-2025 Admission to same day surgery center Dr. Michelle Mccall MD -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/Special Procedures Work Phone: Start: 01-14-2025 End: 01-14-2025 ambulatory Michelle Mccall Facility:[facility] Start: 01-02-2025 End: 01-02-2025 Patient encounter procedure Teena JULES -Radiology, [facility] Work Phone: Start: 01-02-2025 End: 01-02-2025 Patient encounter procedure Teena JULES -[facility] Work Phone: Start: 01-02-2025 End: 01-02-2025 ambulatory Rogelio [facility] Facility:[facility] Start: 01-02-2025 End: 01-02-2025 ambulatory Teena Jacques Facility:[facility] Start: 12-12-2024 ambulatory Michelle Stefany Facility:[facility] Start: 12-12-2024 Non-patient / Non-visit Dr. Michelle herrera MD -[facility] Start: 12-12-2024 End: 12-12-[address] Rogelio oClvin MD -Cardiovascular Services Work Phone: Start: 12-12-2024 End: 12-12-2024 ambulatory [facility] Facility:[facility] Start: 11-24-2024 ambulatory Michelle [place] Facility:[facility] Start: 11-24-2024 Non-patient / Non-visit Dr. Michelle herrera MD -[facility] Start: 11-24-2024 End: 11-24-[address] Michelle Mccall MD -Cardiovascular Services Work Phone: Start: 11-24-2024 End: 11-24-2024 ambulatory Michelle Mccall Facility:[facility] Start: 11-03-2024 End: 11-04-2024 Emergency department patient visit Dr. Isrrael Garrett DO -Emergency Department Work Phone: Start: 10-18-2024 End: 10-18-2024 Emergency department patient visit Mendy Tyler DO Work Phone: [facility] Emergency Medicine Comment on above: Lumbar strain, initi al encounter (Primary Dx) Start: 09-18-2024 End: 09-18-2024 ambulatory [facility] Facility:[facility] Start: 10-16-2023 End: 10-16-[address] Rogelio Colvin Work Phone: [facility] Work Phone: Start: 10-16-2023 End: 10-16-[address] Rogelio Colvin Work Phone: [facility] Vascular Surgery Work Phone: Start: 08-15-2023 Non-patient / Non-visit Dr. Zachariah Colvin Work Phone: [facility] Start: 08-15-2023 End: 08-15-[address] Rog[facility] Start: 05-20-2023 End: 05-20-2023 Emergency department patient visit Dr. Rogelio Colvin Work Phone: [facility]-Emergency Department Work Phone: Start: 05-02-2023 End: 05-02-[address] Rogelio Colvin Work Phone: [facility] Work Phone: Start: 05-02-2023 End: 05-02-[address] Rogelio Colvin Work Phone: [facility] Start: 04-17-2023 Non-patient / Non-visit Dr. Zachariah Colvin Work Phone: [facility] Start: 04-17-2023 End: 04-17-2023 Admission to same day surgery center Dr. Rogelio Colvin Work Phone: 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/Special Procedures Start: 04-17-2023 End: 04-17-[address] Rogelio Colvin Work Phone: [facility] Work Phone: Start: 04-06-2023 End: 04-06-2023 Emergency department patient visit Dr. Rogelio Colvin Work Phone: [facility]-Emergency Department Start: 04-04-2023 Non-patient / Non-visit Dr. Zachariah Colvin Work Phone: [facility] Start: 04-04-2023 End: 04-04-[address] Rogelio Colvin Work Phone: [facility] Work Phone: Start: 04-04-2023 End: 04-04-[address] Rogelio Colvin Work Phone: [facility]-Cardiovascular Services Start: 03-26-2023 End: 03-26-[address] Rogelio Colvin Work Phone: [facility] Start: 03-21-2023 Non-patient / Non-visit Dr. Zachariah Colvin Work Phone: [facility] Start: 03-21-2023 End: 03-21-[address] Rogelio Colvin Work Phone: [facility] Work Phone: Start: 03-21-2023 End: 03-21-[address] Rogelio Colvin Work Phone: [facility]-Cardiovascular Services Start: 03-06-2023 End: 03-06-[address] Rogelio Colvin Work Phone: [facility] Work Phone: Start: 03-06-2023 End: 03-06-[address] Rogelio Colvin Work Phone: [facility]-Pulmonary Services/Neurology Start: 02-13-2023 End: 02-13-[address] Rogelio Colvin Work Phone: [facility] Start: 01-31-2023 End: 01-31-[address] Rogelio Colvin Work Phone: [facility] Start: 01-17-2023 End: 01-17-[address] Rogelio Colvin Work Phone: [facility] Start: 01-17-2023 End: 01-17-[address] Rogelio Colvin Work Phone: [facility] Work Phone: Start: 01-17-2023 End: 01-17-[address] Rogelio Colvin Work Phone: [facility] Start: 01-11-2023 End: 01-11-2023 Emergency department patient visit Dr. Rogelio Colvin Work Phone: [facility]-Emergency Department Start: 01-11-2023 Non-patient / Non-visit Dr. Zachariah Colvin Work Phone: [facility] Start: 01-10-2023 Non-patient / Non-visit Dr. Zachariah Colvin Work Phone: [facility] Start: 01-10-2023 End: 01-10-2023 Non-patient / Non-visit Dr. Rogelio Colvin Work Phone: [facility] Start: 01-09-2023 Non-patient / Non-visit Dr. Zachariah Colvin Work Phone: [facility] Start: 01-09-2023 End: 01-11-2023 Evaluation and management of inpatient Dr. Rogelio Colvin Work Phone: [facility]-Progressive Care Unit Start: 01-04-2023 End: 01-04-[address] Rogelio Colvin Work Phone: [facility] Start: 01-04-2023 End: 01-04-[address] Rogelio Colvin Work Phone: [facility] Start: 01-01-2023 Non-patient / Non-visit Dr. Zachariah Colvin Work Phone: [facility] Start: 01-01-2023 End: 01-01-[address] Rogelio Colvin Work Phone: [facility] Work Phone: Start: 01-01-2023 End: 01-01-[address] Rogelio Colvin Work Phone: [facility]-Cardiovascular Services Start: 12-31-2022 End: 12-31-2022 Emergency department patient visit Dr. Rogelio Colvin Work Phone: [facility]-Emergency Department Start: 12-07-2022 Non-patient / Non-visit Dr. Zachariah Colvin Work Phone: [facility] Start: 12-06-2022 Non-patient / Non-visit Dr. Zachariah Colvin Work Phone: [facility] Start: 12-06-2022 End: 12-07-2022 [facility] Start: 12-06-2022 End: 12-07-[address] Rogelio Colvin Work Phone: [facility] Work Phone: Start: 12-04-2022 End: 12-04-2022 Emergency department patient visit DR CJ LEIAV [facility] Procedures Date Procedure Procedure Detail Performing Clinician Start: 05-16-[address] Rogelio Colvin MD Work Phone: Start: 05-16-2025 CT cervical spine wi thout contrast Dr. Rogelio Colvin MD Work Phone: Start: 05-16-2025 CT of head without contrast Dr. Rogelio Colvin MD Work Phone: Start: 04-16-2025 CT of head without contrast [...] Ct lumbar spine w/o contrast material Mendy Shankar Bhargav BANKS Work Phone: Start: 05-20-2023 Diagnostic radiograp hy [...] Treatment Date Care Activity Detail Author Start: 2048 RSV Immunization for Adults (1 - 1-dose 75+ series) RSV Immunization for Adults (1 - 1-dose 75+ series) [facility] Start: 05-20-2033 DTaP/Tdap/Td Vaccines (2 - Td or Tdap) DTaP/Tdap/Td Vaccines (2 - Td or Tdap) [facility] Start: 07-13-2025 Influenza vaccination Influenza Vaccine (#1) [facility] Start: 05-16-2025 [facility] Start: 04-16-2025 [facility] Start: 03-04-[address] [facility] Start: 03-03-[address] [facility] Start: 03-03-2025 Notification of physician [facility] Start: 03-03-2025 Provision of activity privileges [facility] Start: 03-03-[address] [facility] Start: 03-03-2025 Taking patient vital signs [facility] Start: 03-03-2025 End: 03-03-2025 [facility] Start: 03-03-2025 Elevation of head of bed [facility] Start: 03-03-2025 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 Anesthesia (Not Applicable) 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 Anesthesia (Not Applicable) [facility] Start: 03-02-[address] [facility] Start: 03-02-2025 Assessment of risk of venous thromboembolism [facility] Start: 03-02-2025 Catheterization of vein [facility] Start: 03-02-2025 Insertion of catheter into peripheral vein [facility] Start: 03-02-2025 Me[address]uring intake and output [facility] Start: 03-02-[address] [facility] Start: 03-02-[address] [facility] Start: 03-02-[address] [facility] Start: 03-02-2025 Providing care according to standard [facility] Start: 03-02-2025 [facility] Start: 03-02-[address] [facility] Start: 03-02-2025 Following clinical pathway protocol [facility] Start: 02-24-[address] [facility] Work Phone: Start: 02-09-2025 [facility] Start: 01-27-[address] [facility] Work Phone: Start: 01-20-[address] [facility] Start: 01-19-2025 Following clinical pathway protocol [facility] Start: 01-19-2025 [facility] Start: 01-19-[address] [facility] Start: 01-19-2025 Assessment of risk of venous thromboembolism [facility] Start: 01-19-[address] [facility] Start: 01-19-[address] [facility] Start: 01-19-2025 Insertion of catheter into peripheral vein [facility] Start: 01-19-[address] intake and output [facility] Start: 01-19-2025 Notification of physician [facility] Start: 01-19-[address] [facility] Start: 01-19-2025 Providing care according to standard [facility] Start: 01-19-2025 Provision of activity privileges [facility] Start: 01-19-[address] [facility] Start: 01-19-2025 Taking patient vital signs [facility] Start: 01-19-2025 End: 01-19-2025 [facility] Start: 01-19-[address] [facility] Start: 01-19-2025 Removal of thrombus Thrombectomy (Not Applicable) [facility] Start: 01-14-[address] [facility] Start: 01-02-[address] [facility] Work Phone: Start: 11-04-2024 [facility] Start: 07-13-2024 COVID-19 Vaccine ( season) COVID-19 Vaccine ( season) [address] [facility] Start: 07-13-2024 Influenza vaccination Influenza Vaccine (#1) [facility] Start: 2023 Pneumococcal Vaccine: 50+ Years (1 of 1 - PCV) Pneumococcal Vaccine: 50+ Years (1 of 1 - PCV) [facility] Start: 2023 Zoster Vaccines (1 of 2) Zoster Vaccines (1 of 2) [facility] Start: 01-11-[address] [facility] Start: 01-10-2023 Notification of physician [facility] Start: 01-10-2023 Provision of activity privileges [facility] Start: 01-10-2023 Taking patient vital signs [facility] Start: 01-10-2023 Vascular disease risk assessment [facility] Start: 01-10-2023 [facility] Start: 01-09-2023 Following clinical pathway protocol [facility] Start: 01-09-[address] [facility] Start: 01-09-[address] [facility] Start: 01-09-2023 Assessment of risk of venous thromboembolism [facility] Start: 01-09-2023 Insertion of catheter into peripheral vein [facility] Start: 01-09-[address]23 Me[address]uring intake and output [facility] Start: 01-09-2023 Providing care according to standard [facility] Start: 01-09-2023 [facility] Start: 01-09-2023 Patient referral to dietitian [facility] Start: 12-31-2022 US.doppler Lower extremity vein [facility] Start: 12-07-[address] [facility] Start: 12-06-2022 Following clinical pathway protocol [facility] Start: 12-06-2022 Chart related administrative procedure [facility] Start: 12-06-[address] [facility] Start: 12-06-2022 Assessment of risk of venous thromboembolism [facility] Start: 12-06-[address] [facility] Start: 12-06-2022 Insertion of catheter into peripheral vein [facility] Start: 12-06-[address] intake and output [facility] Start: 12-06-[address] [facility] Start: 12-06-2022 Providing care according to standard [facility] Start: 12-06-2022 Provision of [address] privileges [facility] Start: 12-06-2022 Referral to occupational therapist [facility] Start: 12-06-[address] [facility] Start: 12-06-2022 [facility] Start: 12-06-[address] [facility] Start: 12-06-[address] [facility] Start: 1991 Diabetes mellitus screening Diabetes Screening [facility] Start: 1991 Hepatitis C screening Hepatitis C Screening [facility] Start: 1985 Depression Screening Depression Screening [facility] Start: 1974 MMR Vaccines (1 of 1 - Standard series) MMR Vaccines (1 of 1 - Standard series) [facility] Start: 1973 HIV screening HIV Screening [facility] Start: 1973 Lipid panel Lipid Panel [facility] Start: 1973 Screening for malignant neoplasm of colon [facility] Start: 1973 Yearly Adult Physical Yearly Adult Physical [facility] Bilirubin measuremen t, urine [facility] Doppler ultrasonogra phy of aorta [facility] Doppler ultrasonogra phy of aorta [facility] Hemoglobin [Presence ] in Urine [facility] Measurement of keton es in urine using dipstick [facility] Microscopic urinalysis [facility] MR Lumbar spine [facility] MR Lumbar spine [facility] Patient Education [facility] Work Phone: Patient referral [facility] Work Phone: pH of Urine [facility] Specific gravity of Urine [facility] Urinalysis, blood, qualitative [facility] Urine dipstick for glucose [facility] Urine dipstick for leukocyte esterase [facility] Urine dipstick for nitrite [facility] Urine dipstick for protein [facility] Urine examination [facility] Urine microscopy: epithelial cells [facility] Urine Microscopy: wh ite cells [facility] Urobilinogen [Presen ce] in Urine [facility] US.doppler Lower ext remity vein [facility] US.doppler Lower ext remity vessels [facility] US.doppler Lower ext remity vessels [facility] Immunizations Immunization Date Immunization Notes Care Provider Fa cility 05-20-2023 tetanus toxoid, redu jose cruz diphtheria toxoid, and acellular pertussis vaccine, adsorbed Dr. Rogelio Colvin Work Phone: [facility] 09-29-2020 influenza virus vaccine, unspecified formulation Mendy Tyler Work Phone: [facility] Work Phone: Payers Date Payer Category Payer Legal Liability / Liability Insurance ACCIDENT RELATED NON-MEDICARE [id number] 2024 Self-pay [id number] 2022 Commercial Managed C are - HMO MMO SUPERMED [id number] 2022 Unknown [id number] 1975 Unknown [id number] 2.16.840.1.927371.3.579.2. 651 1973 Unknown [id number] 2.16.840.1.962711.3.579.2. 1243 Private Health Insurance [id number] Unknown [id number] 2.16.840.1.733492.3.579.2. 462 Unknown [id number] 2.840.1.699871.3.579.2. 462 Unknown [id number] 2.16.840.1.043362.3.579.2. 462 Unknown [id number] 2.840.1.735073.3.579.2. 462 Unknown [id number] 2.16840.1.598401.3.579.2. 462 Unknown [id number] 2.16840.1.007449.3.579.2. 462 Unknown [id number] 2.16.840.1.605945.3.579.2. 462 Unknown [id number] 2.16.840.1.459915.3.579.2. 462 Unknown [id number] 2.840.1.374463.3.579.2. 462 Unknown [id number] 2.16.840.1.463185.3.579.2. 462 Unknown [id number] 2.16.840.1.594608.3.579.2. 462 Unknown [id number] 2.16.840.1.399834.3.579.2. 462 Unknown [id number] 2.16.840.1.357472.3.579.2. 462 Unknown [id number] 2.16.840.1.696978.3.579.2. 462 Unknown [id number] 2.16.840.1.936570.3.579.2. 462 Unknown [id number] 2.16.840.1.908120.3.579.2. 462 Unknown [id number] 2.16.840.1.649177.3.579.2. 462 Unknown [id number] 2.16.840.1.721184.3.579.2. 462 Unknown [id number] 2.16.840.1.298889.3.579.2. 462 Unknown [id number] 2.16.840.1.226812.3.579.2. 462 Unknown [id number] 2.16.840.1.011758.3.579.2. 462 Unknown [id number] 2.16.840.1.662230.3.579.2. 462 Unknown [id number] 2.16.840.1.520619.3.579.2. 462 Unknown [id number] 2.16.840.1.029914.3.579.2. 462 Unknown [id number] 2.16.840.1.751369.3.579.2. 462 Unknown [id number] 2.16.840.1.823301.3.579.2. 462 Unknown [id number] 2.16.840.1.991945.3.579.2. 462 Unknown [id number] 2.16.840.1.675027.3.579.2. 462 Unknown [id number] 2.16.840.1.678824.3.579.2. 462 Social History Date Type Detail Facility Start: 12-06-2022 End: 10-18-2023 Tobacco smoking status NJIS Unknown if ever smoked [facility] Start: 1975 Sex Assigned At Male [facility] Start: 1975 Sex assigned at Not on file [facility] Work Phone: Start: 05-20-2025 Gender identity Not on file [facility] Work Phone: Start: 10-08-2024 End: 10-18-2024 Exposure to SARS-CoV-2 (event) Not sure [facility] Start: 01-19-2025 End: 02-09-2025 Tobacco smoking status NHIS Ex-smoker (finding) [facility] Start: 06-12-2022 End: 01-20-2025 Sex Male (finding) [facility] Start: 04-16-2025 End: 05-20-2025 Tobacco smoking status NHIS Never smoked tobacco (finding) [facility] Start: 05-16-2025 Tobacco smoking stat us NHIS Current some day smoker [facility] Start: 05-20-2025 Tobacco use and exposure Former smokeless tobacco user [facility] Start: 05-20-2025 Alcoholic beverage intake Lifetime non-drinker (finding) [facility] Start: 05-20-2025 History of Social function [facility] Medical Equipment Procedure Code Equipment Code Equipment Origin al Text Equipment Identifier Dates Iliofemoral vein stent ()[id number] [id number] FDA Start: 01-10-2023 Iliofemoral vein stent ()[id number] [id number] FDA Start: 01-10-2023 Iliofemoral vein stent ()[id number] [id number] FDA Start: 01-10-2023 Iliofemoral vein stent ()[id number] [id number] FDA Start: 01-10-2023 Goals Date Patient Goal Desired Activity /State Functional Status Date Assessment Result Facility 03-04-2025 Functional status Ambulates;Up a d rony;Chair;Bathroom Privilege [facility] Work Phone: 01-20-2025 Functional status Ambulates [facility] Work Phone: 01-11-2023 Functional status Activity Ability Indepe ndent [facility] Work Phone: 01-11-2023 Functional status Patient Activity Up ad rony [facility] Work Phone: 01-26-2023 Functional status Activity Ability Bedres [facility] Work Phone: 12-06-2022 Functional status Patient Activity Bedres [facility] Work Phone: Mental Status Date Assessment Result Facility 03-04-2025 Cognitive function Voice/Name [facility] Work Phone: 01-20-2025 Cognitive function Voice/Name [facility] Work Phone: 01-19-2025 Cognitive function Voice/Name [facility] Work Phone: 01-11-2023 Cognitive function Level Of Cons ciousness Awake;Appropriate;Follows Commands;Drowsy [facility] Work Phone: 01-11-2023 Cognitive function Voice/Name [facility] Work Phone: Clinical Notes 06-13-2021 to 05-20-2025 Telephone Encounter - Suri Richards - 05/20/2025 3:46 PM EDTTelephone Encounter - Suri Richards - 05/20/2025 3:46 PM EDTTelephone Encounter - Jo Ann Barnes - 05/20/2025 3:36 PM EDT Note Date & Type Note Facility 05-20-2025 Telephone encount er Note Patient informed [facility] 05-20-2025 Miscellaneous Notes Formattin g of this note might be different from the original. Patient informed LVM ----- Message from Ruiz Gifford MD sent at 05/20/2025 3:34 PM EDT ----- Let the patient know that I spoke to Dr. Hart and that his office will plan to get him in for further evaluation of his spine. documented in this encounter [facility] 05-20-2025 Telephone encount er Note LVM [facility] 05-20-2025 Telephone encount er Note ----- Message from Ruiz Gifford MD sent at 05/20/2025 3:34 PM EDT ----- Let the patient know that I spoke to Dr. Hart and that his office will plan to get him in for further evaluation of his spine. [facility] 05-20-2025 History of Presen t illness Narrative Vascular Surgery Outpatient Consultation Chief Complaint Patient presents with New Patient 2nd opinion/Dr. Mccall placed 2 iliac stents/ recurrent thrombosis L iliac vein HISTORY OF PRESENTILLNESS: The patient is a 49 y.o. male who presents for an evaluation for bilateral iliac and vena cava stents placed for significant venous thrombosis. The patient had the original procedure [address] Mccall and has had recurrent thrombosis of the stents every 6 to 8 months since that procedure. He was told by Dr. Mccall that he thought there was perhaps some compression of the stents by underlying lumbar spine arthritis and he was seen by Dr. Alves at the [facility] for his lumbar spine. Interestingly he does have chronic low back pain that is quite bothersome to him as well. The patient's last procedure on his iliac stents was on 03/03/2025 at which time he was found to have some in-stent restenosis in the left iliac stents which was treated successfully with repeat angioplasty. Past Medical History: Medical History[1] Past SurgicalHistory: Surgical History[2] Current Medications: Prior to Admission medications Medication Sig Start Date End Date Taking? Authorizing Provider aspirin 325 MG tablet Take 325 mg by mouth daily. Yes Historical Provider, clopidogrel (Plavix) 75 MG tablet Take 75 mg by mouth daily. Yes Historical Provider, PARoxetine (Paxil) 20 MG tablet Take 20 mg by mouth every morning. Yes Historical Provider, MD valsartan-hydroCHLOROthiazide (Diovan-HCT) 160-12.5 MG tablet Take 1 tablet by mouth daily. Yes Historical Provider, Allergies: Patient has no known allergies. Social History Socioeconomic History Marital status: Spouse name: Not on file Number of children: Not on file Years of education: Not on file Highest education level: Not on file Occupational History Not on file Tobacco Use Smoking status: Never Smokeless tobacco: Former Substance and Sexual Activity Alcohol use: Never Drug use: Never Sexual activity: Not on file Other Topics Concern Not on file Social History Narrative Not on file Social Drivers of Health Financial Resource Strain: Not on file Food Insecurity: Not on file Transportation Needs: Not on file Physical Activity: Not on file Stress: Not on file Social Connections: Not on file Intimate Partner Violence: Not on file Housing Stability: Not on file Family History[3] Review of Systems Constitutional: Negative. HENT: Negative. Eyes: Negative. Respiratory: Negative. Cardiovascular: Positive for leg swelling (left leg). Gastrointestinal: Negative. Endocrine: Negative. Genitourinary: Negative. Musculoskeletal: Positive for back pain (low back pain). Skin: Negative. Allergic/Immunologic: Negative. Neurological: Negative. Hematological: Negative. Psychiatric/Behavioral: Negative. LABS: No results found for: CREATININE No results found for: WBC, HGB, HCT, MCV, PLT No results found for: INR, PROTIME No results found for: VLDL Physical Exam Constitutional: Appearance: Normal appearance. HENT: Head: Normocephalic and atraumatic. Nose: Nose normal. Mouth/Throat: Mouth: Mucous membranes are moist. Pharynx: Oropharynx is clear. Eyes: Extraocular Movements: Extraocular movements intact. Pupils: Pupils are equal, round, and reactive to light. Cardiovascular: Rate and Rhythm: Normal rate and regular rhythm. Pulses: Normal pulses. Carotid pulses are 2+ on the right side and 2+ on the left side. Radial pulses are 2+ on the right side and 2+ on the left side. Femoral pulses are 2+ on the right side and 2+ on the left side. Popliteal pulses are 2+ on the right side and 2+ on the left side. Dorsalis pedis pulses are 2+ on the right side and 2+ on the left side. Posterior tibial pulses are 2+ on the right side and 2+ on the left side. Pulmonary: Effort: Pulmonary effort is normal. Breath sounds: Normal breath sounds. Abdominal: General: Abdomen is flat. Bowel sounds are normal. Palpations: Abdomen is soft. Musculoskeletal: General: Normal range of motion. Cervical back: Normal range of motion and neck supple. Skin: General: Skin is warm and dry. Neurological: General: No focal deficit present. Mental Status: He is alert and oriented to person, place, and time. Psychiatric: Behavior: Behavior normal. IMPRESSION/RECOMMENDATIONS: Problem List Items Addressed This Visit None Visit Diagnoses Ileofemoral deep vein thrombosis, bilateral (HCC) - Primary From a vascular standpoint he has had the adequate and appropriate treatment for his ileal caval venous thrombosis. He is currently on Lovenox and Plavix which I also I think is appropriate. I explained to him that it would be difficult to predict that addressing any lumbar spine disease would significantly impact the patency of his venous stents. However I told him with his low back pain that any decisions on whether or not to do something about his back should be made independent of the venous stent issue and based on the pathology in the lumbar spine and how much procedure would help him with his current symptomatology. I discussed this over the telephone with Dr. Alves who agrees and he will plan to get the patient in do further workup in terms of his lumbar spine. I will see the patient as needed. No follow-ups on file. . [1] Past Medical History: Diagnosis Date Anxiety DDD (degenerative disc disease), lumbar DVT (deep venous thrombosis) (HCC) HNP (herniated nucleus pulposus), lumbar Hypertension RSD lower limb [2] Past Surgical History: Procedure Laterality Date FEMORAL HERNIA REPAIR (HISTORICAL) [3] Family History Problem Relation Name Age of Onset Heart disease Father Other Father CVA (cerebral vascular accident) documented in this encounter [facility] 05-20-2025 Note Vascular Surgery Out patient Consultation Chief Complaint Patient presents with New Patient 2nd opinion/Dr. Mccall placed 2 iliac stents/ recurrent thrombosis L iliac vein HISTORY OF PRESENTILLNESS: The patient is a 49 y.o. male who presents for an evaluation for bilateral iliac and vena cava stents placed for significant venous thrombosis. The patient had the original procedure [address] Mccall and has had recurrent thrombosis of the stents every 6 to 8 months since that procedure. He was told by Dr. Mccall that he thought there was perhaps some compression of the stents by underlying lumbar spine arthritis and he was seen by Dr. Alves at the [facility] for his lumbar spine. Interestingly he does have chronic low back pain that is quite bothersome to him as well. The patient's last procedure on his iliac stents was on 03/03/2025 at which time he was found to have some in-stent restenosis in the left iliac stents which was treated successfully with repeat angioplasty. Past Medical History: Medical History[1] Past SurgicalHistory: Surgical History[2] Current Medications: Prior to Admission medications Medication Sig Start Date End Date Taking? Authorizing Provider aspirin 325 MG tablet Take 325 mg by mouth daily. Yes Historical Provider, clopidogrel (Plavix) 75 MG tablet Take 75 mg by mouth daily. Yes Historical Provider, PARoxetine (Paxil) 20 MG tablet Take 20 mg by mouth every morning. Yes Historical Provider, valsartan-hydroCHLOROthiazide (Diovan-HCT) 160-12.5 MG tablet Take 1 tablet by mouth daily. Yes Historical Provider, Allergies: Patient has no known allergies. Social History Socioeconomic History Marital status: Spouse name: Not on file Number of children: Not on file Years of education: Not on file Highest education level: Not on file Occupational History Not on file Tobacco Use Smoking status: Never Smokeless tobacco: Former Substance and Sexual Activity Alcohol use: Never Drug use: Never Sexual activity: Not on file Other Topics Concern Not on file Social History Narrative Not on file Social Drivers of Health Financial Resource Strain: Not on file Food Insecurity: Not on file Transportation Needs: Not on file Physical Activity: Not on file Stress: Not on file Social Connections: Not on file Intimate Partner Violence: Not on file Housing Stability: Not on file Family History[3] Review of Systems Constitutional: Negative. HENT: Negative. Eyes: Negative. Respiratory: Negative. Cardiovascular: Positive for leg swelling (left leg). Gastrointestinal: Negative. Endocrine: Negative. Genitourinary: Negative. Musculoskeletal: Positive for back pain (low back pain). Skin: Negative. Allergic/Immunologic: Negative. Neurological: Negative. Hematological: Negative. Psychiatric/Behavioral: Negative. LABS: No results found for: CREATININE No results found for: WBC, HGB, HCT, MCV, PLT No results found for: INR, PROTIME No results found for: VLDL Physical Exam Constitutional: Appearance: Normal appearance. HENT: Head: Normocephalic and atraumatic. Nose: Nose normal. Mouth/Throat: Mouth: Mucous membranes are moist. Pharynx: Oropharynx is clear. Eyes: Extraocular Movements: Extraocular movements intact. Pupils: Pupils are equal, round, and reactive to light. Cardiovascular: Rate and Rhythm: Normal rate and regular rhythm. Pulses: Normal pulses. Carotid pulses are 2+ on the right side and 2+ on the left side. Radial pulses are 2+ on the right side and 2+ on the left side. Femoral pulses are 2+ on the right side and 2+ on the left side. Popliteal pulses are 2+ on the right side and 2+ on the left side. Dorsalis pedis pulses are 2+ on the right side and 2+ on the left side. Posterior tibial pulses are 2+ on the right side and 2+ on the left side. Pulmonary: Effort: Pulmonary effort is normal. Breath sounds: Normal breath sounds. Abdominal: General: Abdomen is flat. Bowel sounds are normal. Palpations: Abdomen is soft. Musculoskeletal: General: Normal range of motion. Cervical back: Normal range of motion and neck supple. Skin: General: Skin is warm and dry. Neurological: General: No focal deficit present. Mental Status: He is alert and oriented to person, place, and time. Psychiatric: Behavior: Behavior normal. IMPRESSION/RECOMMENDATIONS: Problem List Items Addressed This Visit None Visit Diagnoses Ileofemoral deep vein thrombosis, bilateral (HCC) - Primary From a vascular standpoint he has had the adequate and appropriate treatment for his ileal caval venous thrombosis. He is currently on Lovenox and Plavix which I also I think is appropriate. I explained to him that it would be difficult to predict that addressing any lumbar spine disease would significantly impact the patency of his venous stents. However I told hi (more content not included)... [facility] 05-16-[address] [facility] 05-16-2025 Radiology Diagnostic study note [facility] Imaging Services [address] [place], [place] [address] Spine Cervical without Contras MR#: [id number] Acct: [id number] Name: DELTA CHEEK JrChristine Rep #: [id number] : 1975 M 49 From: Denia Marie MD PCP: Dr. Rogelio Colvin MD Status: REG E R Study:Spine Cervical without Contras Date of Exam: 05/16/25 Exam# [id number] Ordering Dr: Leon Jones MD PROCEDURE: SPINE CERVICAL WITHOUT CONTRAS 05/16/2025 REASON FOR EXAM: TRAUMA TECHNIQUE: Cervical spine CT without contrast. Coronal and Sagittal reconstruction series were provided. One or more dose reduction techniques were used (e.g., Automated exposure control, adjustment of the mA and/or kV according to patient size, use of iterative reconstruction technique RADIATION DOSE SUMMARY: DLP: 600 mGycm COMPARISON: None. FINDINGS: Alignment: No traumatic listhesis. Vertebrae: No acute fracture. The vertebral body heights are maintained. Mild multilevel degenerative disc disease. Soft Tissues: No prevertebral hematoma. CT/Spine Cervical without Contras IMPRESSION: NO ACUTE CERVICAL FRACTURE. DEGENERATIVE CHANGES. Reading Location: [facility] CC: Dr. Emerson Jones MD; Dr. Rogelio Colvin MD ~ Caddy Master: Signed [facility] 05-16-2025 Radiology Diagnostic study note [facility] Imaging Services [address] [place], [place] [id number] Brain/Head without Contrast MR#: [id number] Acct: [id number] Name: DELTA CHEEK JrChristine Rep #: [id number] : 1975 M 49 From: Denia Marie MD PCP: Dr. Rogelio Colvin MD Status: REG E R Study:Brain/Head without Contrast Date of Exa m: 05/16/25 Exam# [id number] Ordering Dr: Leon Jones MD EXAM: BRAIN/HEAD WITHOUT CONTRAST CLINICAL HISTORY: 49 y/o M with HEAD TRAUMA ON LOVENOX. COMPARISON: CT head 04/16/2025. TECHNIQUE: Routine CT imaging of the head without IV contrast. Additional multiplanar reformats were obtained. Dose reduction techniques were used including intermediate exposure control (AEC),iterative reconstruction technique, and/or mA and/or KV dose adjustments based on patient's size. FINDINGS: The ventricles, sulci and cisterns are normal for patient age. There is no evidence of acute intracranial hemorrhage or herniation. There is no midline shift, mass effect, or extra-axial collection. Mild scattered supratentorial white matter hypodensities. The lockett and white matter interfaces are otherwise maintained. There are mild, diffuse, symmetrical, periventricular and subcortical white matter lucencies, a nonspecific finding, which may represent sequela of small vessel disease in a patient of this age. The orbits, visualized paranasal sinuses and mastoids are unremarkable. No acute calvarial fracture or scalp hematoma. CT/Brain/Head without Contrast IMPRESSION: No acute intracranial finding. Reading Location: [facility] CC: Dr. Emerson Jones MD; Dr. Rogelio Colvin MD ~ Caddy Master: Signed [facility] 05-16-2025 Discharge summary Note Date/Time May 16, 2025 9:50p m [facility] Medical Records Department [address] [place] [address] Emergency Department Summary 05/16/25 MR#: [id number] Acct: [id number] Name: DELTA CHEEK JrChristine Rep #:[id number] : 1975 49 From: Emerson Jones MD PCP: Dr. Rogelio Colvin MD Status:REG E R Location: ED HPI HPI - Fall History of Present Illness Chief Complaint: Fall Informant: patient and spouse/S.O. Occured/Mechanism Occurred: Today Mechanism/Context: Yes same level fall and Yes prodromal Usually ambulates: Without assistance Pain/Injury Pain Location: head and neck Quality of Pain: Sharp Current Severity: Mild Maximum Severity: Mild Associated Symptoms Associated Symptoms: Positive for Loss of consciousness; Negative for Parasthesias, Weakness, Loss of function, Inability to ambulate or Amnesia Narrative Narrative: 49-year-old male history of DVT on Lovenox shots, hypertension anoxic codon for chronic back pain. Today friend is gave him a cannabis or marijuana gummy he did not realize it had to 100 mg cannabis in it. He said he took it later he became lightheaded and had a syncopal episode when he fell on the tile floor in his kitchen he had his head and says having some neck pain also. Denies any chest pain or abdominal pain. No recent vomiting or diarrhea. No fever or melena. Prior similar symptoms: No Recent Illness/Hospitalization: Yes PFSH [facility] Medical History Wears glasses Marijuana use History [...] Pain Score 4-10 7 days #42 tabs valsartan 160 1 tab PO DAILY 05/16/25 Unkn own History mg-hydrochlorothiazide 12.5 mg tablet Allergy/AdvReac Type Severity Reaction Status Date / Time No Known Allergies Allergy Verified 05/16/25 20:05 Family History Father CVA (cerebral vascular accident) Father Heart disease Other Bleeding disorder CAD (coronary artery disease) Hypertension Surgical History Hx of hernia repair History of femoral hernia repair Social History Smoking Status: Current some day smoker tobacco type: smokeless tobacco Smokeless tobacco user: chewing tobacco how long ago did patient quit smokin can every 4-5 days alcohol intake: never ROS ROS ED ROS Narrative Denies recent illness. Chronic back pain. Constitutional Constitutional ED: Denies chills or fever(s) Eyes Eyes: Denies blurry vision ENT ENT ED: Denies ear pain Cardiovascular Cardiovascular: Denies chest pain Respiratory/Chest Respiratory/Chest: Denies cough or dyspnea Gastrointestinal Gastrointestinal: Denies abdominal pain Genitourinary Genitourinary ED: Denies dysuria or hematuria Musculoskeletal Musculoskeletal: Denies arthralgias Integumentary Denies abscess Neurologic Neurologic: Reports headache(s) Psychiatric Psychiatric: Denies anxiety Endocrine Endocrinology: Denies polydipsia Hematologic/Lymphatic Hematologic/Lymphatic: Reports easy bleeding and easy bruising; Denies lymphadenopathy Allergic/Immunologic Allergic/Immunologic ED: Denies mouth swelling, tongue swelling or urticaria EXAM Physical Exam Narrative Exam Narrative: Well-appearing 49-year-old male. Vital signs stable afebrile. Pulse ox 90% on room air no hypoxia. No distress. at bedside. H EENT exam pupils round react to light. Extra motions are intact. Tenderness to top of his scalp. No contusion hematoma. No laceration. C-spine tender posteriorly. Trachea midline. Back nontender. Multiple tattoos. Lungs clear to auscultation bilaterally. Heart regular rhythm rate about 80 no murmur. Chest wall ribs nontender. Abdomen soft nontender. He does have bruising on his abdomen from Lovenox shots. No peritoneal signs. Pelvic girdle intact. Moving all 4 extremities. Nontender no deformity. Normal range of motion. 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 Normal dorsi plantarflexion. Neurologically he is awake and alert. Answer questions following commands. Const Vital Signs: 05/16/25 20:04 05/16/25 20:28 Temperature 98.3 F Temperature Source Oral Pulse Rate 82 Respiratory Rate 18 Respiratory Effort Normal Non-Labored Respiratory Depth Normal Respiratory Pattern Normal Blood Pressure 141/98 H Blood Pressure Mean 112 Pulse Ox 98 95 Oxygen Delivery Method Room Air Positive well nourished and well developed; Negative for cachectic, contracturesor unkempt General Appearance ED: well developed and NAD; Negative for unkempt, cachectic or contractures Nutritional Appearance: Negative for cachectic HEENT Reports normocephalic HEENT Narrative: Scalp tenderness. trauma and contusion; Negative for hematoma or tenderness Eyes PERRL and EOMs intact bilaterally General Eye ED: Negative for pale conjunctiva or scleral icterus Neck no lymphadenopathy and supple Neck Narrative: Posterior C-spine tenderness. General: tenderness Chest Wall inspection of chest normal and palpation of chest normal Resp normal respiratory effort, no retractions and clear to auscultation bilaterally Cardio regular rate, regular rhythm, S1 normal heart sound, S2 normal heart sound and no murmurs GI non-tender, non-distended and no masses Auscultation: normoactive bowel sounds Palpation: soft; Negative for guarding or rebound tenderness present Back/Spine no CVA tenderness Neuro oriented x3, CN's II-XII intact bilaterally and moves all extremities [place] Coma Scale: document GCS findings Spontaneous Obeys Commands Oriented 15 Sensorium / Orientation: alert, oriented to person, oriented to place and oriented to time; Negative for orientation impaired Motor Exam: strength 5/5 throughout Psych mental status grossly normal and thought process normal Appearance: Negative for unkempt Skin Lesions: no lesions Rashes: no rashes MDM MDM MDM Narrative Medical decision making narrative: 49-year-old male with chronic back pain. Used a cannabis or marijuana gummy today. Had a syncopal episode. Prior to the episodes he felt well other than his studies or feeling lightheaded before he passed out. Denies any recent chest pain. When he fell he hit his head when he had neck pain. He is on Lovenox shots will get a CT of his head and neck. Screening labs and EKG due tohis syncopal event. Repeat exam at around 9:48 PM. Patient doing well. We went over his CAT scan results and labs. He is comfortable being discharged to home. Tylenol for pain. Outpatient follow-up as needed. History & Record Review Discussion w/independent historian: Patient and Family Additional record(s) reviewed:: Prior inpatient record, Prior outpatient record,Prior ED visit and Prior labs Lab Data Attestation: I reviewed the patient's lab results. Lab results narrative: CBC unremarkable. White count of 6.4. H&H 13 and 40. Platelets 237. Chemistries unremarkable. Gap 10. Normal BUN and creatinine. Glucose 113. Labs: Laboratory Results - last 24 hr 05/16/25 20:37 WBC 6.4 RBC 4.58 L Hgb 13.6 Hct 40.1 MCV 87.6 MCH 29.7 MCHC 33.9 RDW Std Deviation 39.8 RDW Coeff of Alejo 12.5 Plt Count 237 MPV 8.6 Immature Gran % (Auto) 0.300 Neut % (Auto) 71.5 H Lymph % (Auto) 16.4 L Izard % (Auto) 9.4 Eos % (Auto) 1.6 Baso % (Auto) 0.8 Absolute Neuts (auto) 4.6 Absolute Lymphs (auto) 1.05 Nucleated RBC % 0 Sodium 137 Potassium 3.7 Chloride 100 Carbon Dioxide 26.6 Anion Gap 10 BUN 12 Creatinine 0.98 Estim Creat Clear Calc 116.09 Est GFR (MDRD) Non-Af 94 BUN/Creatinine Ratio 12.3 Glucose 113 H Calcium 9.0 Radiography Diagnostic Testing: Clinical Impression(s) from Imaging Studies Brain CT 05/16/25 20:15 IMPRESSION: No acute intracranial finding. Reading Location: [facility] Cervical Spine CT 05/16/25 20:15 IMPRESSION: NO ACUTE CERVICAL FRACTURE. DEGENERATIVE CHANGES. Reading Location: [facility] Rhythm Strip Rhythm Strip: Sinus Rhythm Rate: 77 Ectopy: None EKG Initial EKG: Attestation: I personally reviewed and interpreted this EKG as follows: Interpretation: Sinus Rhythm and No Acute Injury Pattern Comments: Normal sinus rhythm rate of 77 no acute signs of LA nor ischemia. Discharge Plan Triage Chief Complaint: Fall ED Provider: Emerson Jones Dx/Rx/DC Orders Clinical Impression: Syncope, Closed head injury, Chronic anticoagulation, History of marijuana use Instructions: ED Head Injury (Adult) Prescriptions: No Action paroxetine HCl 20 mg tablet 1 tablet PO DAILY aspirin 81 mg tablet,delayed release (DR/EC) 81 mg PO QDAY enoxaparin [Lovenox] 120 mg/0.8 mL syringe 120 mg subcut BID valsartan-hydrochlorothiazide 160-12.5 mg tablet 1 tab PO DAILY oxycodone 5 mg tablet 5 - 10 mg PO Q8H PRN PRN (Reason: Pain Score 4-10) 7 Days Qty: 42 0RF Primary Care Provider: Rogelio Colvin Chi Referrals: Rogelio Colvin Chi, MD [Primary Care Provider] - As Needed Activity Restrictions/Additional Instructions: Plenty of fluids and rest. Follow-up with your doctor as needed. Return if worse. Tylenol for any head or neck pain. Print Language: Swiss Disposition Disposition: Home, Self Care What to do if you have Problems For any increased pain, shortness of breath, bleeding, nausea or vomiting, chestpain, or any unexpected problems, contact your Primary Care Provider. Call [facility] ([phone]) or report to the closest Emergency Room. Call 911 if necessary. 05/16/25 2150 <Electronically signed by Emerson Jones MD> Cosigner Signature (if applicable): CC: Dr. Rogelio Colvin MD ~ Signed [facility] Work Phone: 1(756) 739-732506-05-2025 Discharge summary [facility] Medical Records Department [address] [place] [address] Emergency Department Summary 04/16/25 MR#: [id number] Acct: [id number] Name: DELTA CHEEK Jr. Rep #:[id number] [...] Prior similar symptoms: Yes Recent Illness[facility] Medical History Wears glasses Marijuana use History [...] to inspection, nondistended, normoactive bowel sounds, non-tender, non- distended and no masses Palpation: soft; Negative for [...] Knowing that he is on a blood thinnerhe came in to be evaluated. Hedenies any other complaints. CAT scan will be obtained of his head. He does not need any other imaging or labs. He did not want anything for pain. He is already on oxycodone at home. Repeat exam around 9:12 PM patient doing well. We went over his CAT scan results. We discussed headinjury instructions. When to return. Patient is comfortable being discharged home. Repeat exam is benign. Neurologic exam remains normal. History & Record Review Discussion w/independent historian: Patient and Family Additional record(s) reviewed:: Prior inpatient record, Prior outpatient record,Prior ED visit and Prior labs Radiography Diagnostic Testing: Clinical Impression(s) from Imaging Studies Brain CT 04/16/25 20:28 IMPRESSION: No acute intracranial abnormality. Reading Location: [facility] Discharge Plan Triage Chief Complaint: Head Injury [...] was unremarkable with no bleeding. Print Language: Swiss Disposition Disposition: Home, Self Care What to do if you have Problems For any increased pain, shortness of breath, bleeding, nausea or vomiting, chestpain, or any unexpected problems, contact your Primary Care Provider. Call [facility] ([phone]) or report tothe closest Emergency Room. Call 911 if necessary. 04/16/252112 Cosigner Signature (if applicable): CC: Dr. Rogelio Colvin MD ~ Signed [facility]06-05-2025 Radiology Diagnostic study note [facility] Imaging Services [address] [place] [address] Brain/Head without Contrast MR#: [id number] Acct: [id number] Name: DELTA CHEEK Jr. Rep #: [id number] : 1975 M 49 From: Xander young Gonzalez BANKS PCP: Dr. Rogelio Colvin MD Status: REG E R Study:Brain/Head without Contrast Date of Exa m: 04/16/25 Exam# [id number] Ordering Dr: Leon Jones MD PROCEDURE: BRAIN/HEAD [...] shift or mass effect. No definite CT evidenceof acute territorial cortical infarction. No hydrocephalus. Cerebral volume is age-appropriate. Calvarium is intact. Paranasal sinuses and mastoid air cells are clear. CT/Brain/Head without Contrast IMPRESSION: No acute intracranial abnormality. Reading Location: [facility] CC: Dr. Emerson Jones MD; Dr. Rogelio Colvin MD ~ Caddy Master: Signed [facility]06-05-2025 Discharge summary Author Emerson Jones [facility] Note Date/Time April 16, 2025 9:13p [facility] Medical Records Department [address] [place] [address] Emergency Department Summary 04/16/25 MR#: [id number] Acct: [id number] Name: DELTA CHEEK JrChristine Rep #:[id number] : 1975 49 From: Emerson Jones [...] Prior similar symptoms: Yes Recent Illness/Hospitalization: Yes PFSH PFSH Medical History Wears glasses [...] IMPRESSION: No acute intracranial abnormality. Reading Location: [facility] Discharge Plan Triage Chief Complaint: Head Injury [...] was unremarkable with no bleeding. Print Language: Swiss Disposition Disposition: Home, Self Care What to do if you have Problems For any increased pain, shortness of breath, bleeding, nausea or vomiting, chestpain, or any unexpected problems, contact your Primary Care Provider. Call [facility] ([phone]) or report to the closest Emergency Room. Call 911 if necessary. 04/16/252112 <Electronically signed by Emerson Jones MD> Cosigner Signature (if applicable): CC: Dr. Rogelio Colvin MD ~ Signed [facility] Work Phone: 1(927) 277-568504-23-2025 [facility] Medical Records Department [address] [place] [address] Discharge Summary 03/04/25810 MR#: [id number] Acct: [id number] Name: DELTA CHEEK Jr. Rep #: [id number] : 1975 49 From: Teena JULES PCP: Dr. Rogelio Colvin MD Status:DIS IN Location: [place] [id number] Providers Date of Admission: 03/02/25 Primary Care Physician: Dr. 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 [facility]04-21-2025 [facility] Medical Records Department [address] [place] [address] History Physical Exam 03/02/25 1747 MR#: [id number] Acct: [id number] Name: DELTA CHEEK Jr. Rep #: [id number] : 1975 49 From: Michelle Mccall MD PCP: Dr. 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 Later suffered stent thrombosis that was treated with thrombectomy with some residual thrombus within stent remaining. Presents now for heparin bridge for venogram to assess for thrombus resolution vs further intervention. [facility] Medical History Wears glasses Marijuana use History [...] rashes or lesions no (more content not included)...[facility] 01-27-2025 Evaluation note* Diagnosis Onset Date Resolution Status Admit Date Aftercare following surgery of the circulatory system acute January 1:32pm Stenosis of iliac vein acute [facility] 2024 1:32pm Iliac DVT (deep venous thrombosis) chronic January 27, 2025 1:32pm DDD (degenerative disc disea se), lumbar acute February 03, 2025 9:52am Lumbar stenosis without neurogenic claudication acute February 032024 9:52am Iliac DVT (deep venous thrombosis) chronic February 16, 2025 3:08pm Iliac DVT (deep venous thrombosis) chronic March 02, 2025 4:32pm Stenosis of iliac vein acute Ap ril 2024 10:58am Congenital stenosis of lumba r spine acute March 20, 2025 2: 19pm Other intervertebral disc degeneration, lumbar region with discogenic back acute March 20, 2025 2: 19pm [facility] Work Phone: 1(839) 143-823803-11-2025 Consult note Author Joseph Segura [facility] Note Date/Time January 20, 2025 1:2 7pm [facility] Medical Records Department [address] [place] [address] Anesthesia Postop Eval II 01/19/25 1517 MR#: [id number] Acct: [id number] Name: DELTA CHEEK Jr. Rep #:[id number] : 1975 49 From: Joseph Segura MD PCP: Dr. Rogelio Colvin MD Status:ADM I NO Y Race: C Location: [place] [address] Anesthesia Postop Eval I Sum Postop Eval Completion status Anesthesia document: Postop Eval 1 completed: Yes Anesthesia Postop Eval I Summary Anesthesia Postop Eval I Summary: Anesthesia Postop Eval I: Assessment Summary Airway patent Yes 01/19/25 13:44 [email or web address] Spontaneous unlabored Yes 01/19/25 13:44 ENVIRONMENTAL [email or web address] respirations Mental status Awake,Calm 01/19/25 13:44 ENVIRONMENTAL [email or web address] nausea No 01/19/25 13:44 ENVIRONMENTAL [email or web address] Vomiting No 01/19/25 13:44 ENVIRONMENTAL [email or web address] Anesthesia Postop Eval I: Fluid Summary Crystalloid volume administer 900 01/19/25 13:44 ENVIRONMENTAL [email or web address] (ml) Colloids volume administered ( ml) Blood Product volume administered (ml) Total IV fluid infused 900 01/19/25 13:44 ENVIRONMENTAL [email or web address] Anesthesia Postop Eval I: Summary Notes Anesthesia Complication No 01/19/25 13:44 ENVIRONMENTAL [email or web address] Anesthesia Complication Comment: Post-operative progress note Anesthesia: Postop Eval II Evaluation Mental status: Awake Pain Level: 1 nausea: No Vomiting: No 01/19/251516 <Electronically signed by Joseph Segura MD > Date _ Joseph Segura MD Cosigner Signature: Date CC: ~ Signed [facility] Work Phone: 1(305) 727-279803-11-2025 Consult note [facility] Medical Records Department [address] [place] [address] Anesthesia Postop Eval II 01/19/251516 MR#: [id number] Acct: [id number] Name: DELTA CHEEK Jr. Rep #:[id number] : 1975 49 From: Joseph Segura MD PCP: Dr. Rogelio Colvin MD Status:ADM I NO Y Race: C Location: [address] Anesthesia Postop Eval I Sum Postop Eval Completion status Anesthesia document: Postop Eval 1 completed: Yes Anesthesia Postop Eval I Summary Anesthesia Postop Eval I Summary: Anesthesia Postop Eval I: Assessment Summary Airway patent Yes 01/19/25 13:44 [email or web address] Spontaneous unlabored Yes 01/19/25 13:44 ENVIRONMENTAL [email or web address].LMIL respirations Mental status Awake,Calm 01/19/25 13:44 ENVIRONMENTAL [email or web address].LMIL nausea No 01/19/25 13:44 ENVIRONMENTAL [email or web address].LMIL Vomiting No 01/19/25 13:44 ENVIRONMENTAL [email or web address] Anesthesia Postop Eval I: Fluid Summary Crystalloid volume administer 900 01/19/25 13:44 ENVIRONMENTAL [email or web address].LMIL (ml) Colloids volume administered ( ml) Blood Product volume administered (ml) Total IV fluid infused 900 01/19/25 13:44 ENVIRONMENTAL [email or web address].LMIL Anesthesia Postop Eval I: Summary Notes Anesthesia Complication No 01/19/25 13:44 ENVIRONMENTAL [email or web address].LMIL Anesthesia Complication Comment: Post-operative progress note Anesthesia: Postop Eval II Evaluation Mental status: Awake Pain Level: 1 nausea: No Vomiting: No 01/19/25 1517 > Date _ Joseph Miller Signature: Date CC: ~ Signed [facility]03-11-2025 [facility] Medical Records Department [address] [place] [address] Discharge Summary 01/20/25 1319 MR#: [id number] Acct: [id number] Name: DELTA CHEEK Rep #: [id number] : 1975 49 From: Teena JULES PCP: Dr. Rogelio Colvin MD Status:DIS TATUM Location: [place] [address] Providers Date of Admission: 01/19/25 Primary Care [...] 82.2 H, Lymph % (Auto) 9.9 L, Izard % (Auto) 7.2, Eos % (Auto) 0.0, [...] Admission Admit Date/Time: 01/19/25 13:06 Attending Provider: Michelle Mccall Primary Care Provider: Rogelio Colvin Chi Discharge Orders/Prescriptions Prescriptions: New benzonatate 100 mg Capsule 100 mg PO TID PRN PRN (Reason: Cough) 14 Days Qty: 42 0RF oxycodone 5 mg Tablet 5 mg PO Q6H PRN PRN (Reason: Pain Score 4-10) 4 Days Qty: 16 0RF Continued paroxetine HCl 20 mg tablet 1 tablet PO DAILY (more content not included)...[facility]03-10-2025 Procedure note [facility] Medical Records Department [address] [place] [address] Operative Report 01/19/25 1642 MR#: [id number] Acct: [id number] Name: DELTA CHEEK Jr. Rep #:[id number] : 1975 49 From: Michelle Mccall MD PCP: Dr. 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 He was then positioned prepped and draped in usual sterile fashion time was performed. Skin overlying the right internal jugular veinwas anesthetized 1% lidocaine the vessel accessed under ultrasound guidance with a micropuncture needle wire. This then exchanged for a micropuncture sheath through which a [employer]son wire is advanced into the inferior vena cava. The micropuncture sheath and exchanged for an 8 Anguillan sheath which was advanced over the wire [...] the micropuncture sheath exchanged for short 5 Anguillan sheath. The Bentson wire was exchanged for [...] the filter mechanism deployed. Next a Bard Joice 10 mm x 40 angioplasty balloonwas used to predilate the entirety of the length of the total occlusion, inflatedto nominal and then deflated and repositioned to cover the entire length. Next the Inari Revcore mechanical thrombectomy device was advanced overthe wire and engaged for multiple passes across the area of total occlusion bothof the stent in the kaw vessel below the stent. After multiple passes [...] iliac vein stent. A pair of Bard Joice 16 x 40 angioplasty balloons were then [...] left external iliac vein stent. A Bard Joice 14 x 40 was then advanced over [...] Findings: See above Complications Complications: No 01/19/25 6230 Cosigner Signature (if applicable): CC: Dr. Michelle Mccall MD; Dr. Rogelio Colvin MD~ Signed [facility]03-10-2025 Consult note Author Marie [facility] Note Date/Time January 19, 2025 1:4 4pm [facility] Medical Records Department [address] [place] [address] Anesthesia Postop Eval I 01/19/25 1343 MR#: [id number] Acct: [id number] Name: ADIADELTA Gilberto Chan Rep #:[id number] : 1975 49 From: Marie Pennington CRNA PCP: Dr. Rogelio Colvin MD Status:REG S DC Y Race: C Location: [place] [address] Anesthesia: Postop Eval I Current Vital Signs [...] Anesthesia document: Postop Eval 1 completed: Yes 01/19/251343 <Electronically signed by Marie solano CRNA> Date _ Marie Pennington ENVIRONMENTAL SAMPLER Cosigner Signature: Date CC: ~ Signed [facility] Work Phone: 1(256) 559-720003-10-2025 Consult note [facility] Medical Records Department [address] [facility] [place] [address] Anesthesia Postop Eval I 01/19/25 1343 MR#: [id number] Acct: [id number] Name: DELTA CHEEK Jr. Rep #:[id number] : 1975 49 From: Marie Pennington CRNA PCP: Dr. Rogelio Colvin MD Status:REG S DC Y Race: C Location: [place] [address]1 Anesthesia: Postop Eval I Current Vital Signs [...] Eval 1 completed: Yes 01/19/25 1344 c ENVIRONMENTAL SAMPLER> Date _ Marie Milosevic ENVIRONMENTAL SAMPLER Cosigner Signature: Date CC: ~ Signed [facility]03-10-2025 History and physical note Author Michelle Mccall [facility] Note Date/Time January 19, 2025 8:[address] [facility] Medical Records Department [address] [place] [address] History & Physical Exam 01/19/25829 MR#: [id number] Acct: [id number] Name: DELTA CHEEK Jr. Rep #:[id number] : 1975 49 From: Michelle Mccall MD PCP: Dr. Rogelio Colvin MD Status:REG S NM Location: [place] [address] History and Physical Allergies No Known Allergies [...] nourished Orientation: alert, awake and oriented x3 [facility] Head: normocephalic and atraumatic Ears: hearing grossly [...] -venogram, thrombectomy 01/19/25 0831 <Electronically signed by Michelle Mccall MD> Cosigner Signature (if applicable): CC: Dr. Michelle Mccall MD; Dr. Rogelio Colvin MD~ Signed [facility] Work Phone: 1(810) 849-877803-10-2025 Consult note Author Joseph Segura [facility] Note Date/Time January 19, 2025 7:4 9am [facility] Medical Records Department [address] [place] [address] Pre-Anesthesia Evaluation 01/19/25 0748 MR#: [id number] Acct: [id number] Name: ADIADELTA Gilberto Chan Rep #:[id number] : 1975 49 From: Joseph Segrua MD PCP: Dr. Rogelio Colvin MD Status:REG S DC Y Race: C Location: [place] [address] ASA Classification* ASA Classification ASA Classification: 3 [...] Procedure(s): THROMBECTOMY Anesthesia History Anesthesia History - hot top liner: Anesthesia History - hot top liner Hx Hospitalization No 01/15/25 13:38 Any Problems [...] take am of surgery PONV PONV - hot top liner: PONV - hot top liner Female No 01/15/25 13:38 HX of Motion [...] 01/14/25 10:56 Respiratory Assessment Respiratory Assessment - hot top liner: Respiratory Tract Infection Hx - hot top liner Hx Respiratory Tract Infection No 01/15/25 13:38 STOP Sleep Apnea STOP Sleep Apnea - hot top liner: STOP Sleep Apnea - hot top liner Hx Hypertension Yes: CONTROLLED ON MED 01/15/25 [...] Tobacco Use History Tobacco Use History - hot top liner: Tobacco Use History - hot top liner Tobacco Use Smoking Status Former smoker 01/15/25 13:38 Hx Tobacco Use No 01/15/25 13:38 Years Smoking Packs Smoked per Day Smoking Cessation Date was Yes - quit smoking within 15 01/15/25 13:38 within the last 15 years years Hx Smoking Cessation Date Hx Smoking Cessation Counseling Hematologic Medial History Hematologic Hx - hot top liner: 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 Hx of Blood Transfusion No 01/15/25 13:38 [...] confused, unrespo /Reproduction History /Reproductive History - hot top liner: /Reproductive Hx- hot top liner Hx Now No 01/15/25 13:38 Gestational Age (in weeks): EDC: Hx Hx Para Hx Section SAB No 01/15/25 13:38 Active Medications Active Medications: Current Medications Generic Name Dose Route Start Last Admin Trade Name Freq PRN Reason Stop Dose Admin Sodium Chloride 1,000 mls @ 15 mls/hr 01/19/25 07:30 IV 01/24/25 20:49 .Q48H PENDING SALE TO [facility] Protocol PFSH Medical History Wears glasses Marijuana [...] MD Cosigner Signature: Date CC: ~ Signed [facility] Work Phone: [phone]) 831-269503-10-2025 History and physical note [facility] Medical Records Department [address] [place] [address] History & Physical Exam 01/19/25 0830 MR#: [id number] Acct: [id number] Name: DELTA CHEEK Jr. Rep #:[id number] : 1975 49 From: Michelle Mccall MD PCP: Dr. Rogelio Colvin MD Status:[facility] Location: [place] [address] History and Physical Allergies No Known Allergies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 5:47pm 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, 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, 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, 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 12:32pm 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, 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, 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 March 04, 2025 8:11am LUMBAR STENOSIS, PAIN March 09, 2025 9 :03am Post venogram 3-4 WK FU March 10, 2025 10:58am lumbar spine March 20, 2025 2:19pm HEAD INJURY April 16, 2025 8:05p m fall May 16, 2025 8:03p m Reason for Visit Admit Date Aftercare following surgery of the circu latory [...] section and content) DATE CREATED AUTHOR 05/15/2019 [facility] DATE CREATED AUTHOR AUTHOR'S ORGANIZ ATION 12/13/2021 [facility] DATE CREATED AUTHOR AUTHOR'S ORGANIZ ATION 04/08/2022 [facility] DATE CREATED AUTHOR AUTHOR'S ORGANIZ ATION 04/11/2022 [facility] DATE CREATED AUTHOR AUTHOR'S ORGANIZ ATION 12/08/2022 [facility] DATE CREATED AUTHOR AUTHOR'S ORGANIZ ATION 12/05/2024 [facility] DATE CREATED AUTHOR AUTHOR'S ORGANIZ ATION 05/22/2025 [facility] DATE CREATED AUTHOR AUTHOR'S ORGANIZ ATION 05/24/2025 [facility] Care Teams (unrecognized sec tion and content) [...] Primary Care Provider, Referring Provider Active Dr. Michelle Mccall MD Attending Provider Active Team Status: Inactive Member Role Status Dates Dr. Rogelio Colvin MD Primary Care Provider Active Dr. Zack Smiley MD Attending Provider Active Team Status: Inactive Member Role Status Dates Dr. Rogelio Colvin MD Primary Care Provider Active JROGE A Delvalle Attending Provider Active Team Status: Active Member Role Status Dates Dr. Rogelio Colvin MD Primary Care Provider Active Dr. Michelle Mccall MD Admit Provider, Other Provider Ac dave JULES PA Attending Provider Active Team Status: Active Member Role Status Dates Dr. Rogelio Colvin MD Primary Care Provider Active Dr. Michelle Mccall MD Admit Provider, Attending Provide r, Other Provider Active Team Status: Inactive Member Role Status Dates Dr. Rogelio Colvin MD Primary Care Provider Active Dr. Sivan Beckford DO Attending Provider, Emergency P rovider Active Team Status: Inactive Member Role Status Dates Dr. Rogelio Colvin MD Primary Care Provider Active Dr. Michelle Mccall MD Admit Provider, Attending Provide r [...] Inactive Member Role Status Dates Dr. Rogelio Colvni MD Primary Care Provider Active Dr. Dimas Gill MD Attending Provider, Emergency Provider Active Team Status: Active Member Role Status Dates Dr. Rogelio Colvin MD Primary Care Provider Active Dr. Michelle Mccall MD Admit Provider, Ref erring Provider, Other Provider Active Teena Biedenharn PA, PA Attending Provider Active Team Status: Active Member Role Status Dates Dr. Rogelio Colvin MD Primary Care Provider Active Dr. Michelle Mccall MD Admit Provider, Att ending Provider, Referring Provider, Other Provider Active Team Status: Inactive Member Role Status Dates Dr. Rogelio Colvin MD Primary Care Provi tadeo, Attending Provider, Referring Provider Active Team Status: Active Member Role Status Dates Dr. Rogelio Colvin MD Primary Care Provider Active Dr. Michelle Mccall MD Admit Provider, Ref erring Provider, Other Provider Active Teena Biedenharn , PA Attending Provider Active Team Status: Inactive Member Role Status Dates Dr. Rogelio Colvin MD Primary Care Provider, Referring Provider Active Teena Biedenharn , PA Attending Provider Active Team Status: Active Member Role Status Dates Dr. Rogelio Colvin MD Primary Care Provider Active Dr. Michelle Mccall MD Attending Provider Active Team Status: Inactive Member Role Status Dates Dr. Rogelio Colvin MD Primary Care Provider Active Teena Biedenharn , PA Attending Provider, Referring Provider Active Team Status: Active Member Role Status Dates Dr. Rogelio Colvin MD Primary Care Provider Active Dr. Michelle Mccall MD Attending Provider Active JORGE A Almeida Referring Provider Active Team Status: Inactive Member Role Status Dates Dr. Rogelio Colvin MD Primary Care Provider Active Dr. Michelle Mccall MD Attending Provider, Referring Pro vider Active Team Status: Active Member Role Status Dates Dr. Rogelio Colvin MD Primary Care Provider Active Dr. Michelle Mccall MD Attending Provider, Referring Provider, Other Provider Active Team Status: Active Member Role Status Dates Dr. Rogelio Colvin MD Primary Care Provider Active Dr. Michelle Mccall MD Attending Provider, Referring Pro vider Active Team Status: Inactive Member Role Status Dates Dr. Rogelio Colvin MD Primary Care Provider Active Dr. Oscar Andrade DO Emergency Provider Active Team Status: Active Member Role Status Dates Dr. Rogelio Colvin MD Primary Care Provider Active Dr. Michelle Mccall MD Attending Provider Active JORGE A Schmitt Referring Provider Active Team Status: Inactive Member Role Status Dates Dr. Rogelio Colvin MD Primary Care Provider, Referring Provider Active JORGE A Schmitt Attending Provider Active Team Status: Inactive Member Role Status Dates Dr. 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 Michelle Mccall MD Attending Provider Active S tart: November 24, 2024 End: November 24, 2024 Dr. Michlele Mccall MD Referring Provider Active S tart: November 24, 2024 End: November 24, 2024 Team Status: Active Member Role Status Dates Dr. Rogelio Colvin MD Primary Care Provider Active Start: November 24, 2024 Dr. Michelle Mccall MD Attending Provider Active S tart: November 24, 2024 Dr. Michelle Mccall MD Referring Provider Active S tart: [...] Provider Active Start: December 12, 2024 Dr. Michelle Mccall MD Attending Provider Active S tart: [...] 14, 2025 End: January 14, 2025 Dr. Michelle Mccall MD Attending Provider Active S tart: January 14, 2025 End: January 14, 2025 Dr. Michelle Mccall MD Referring Provider Active S tart: January 14, 2025 End: January 14, 2025 Team Status: Active Member Role Status Dates Dr. Rogelio Colvin MD Primary Care Provider Active Start: January 14, 2025 Dr. Michelle Mccall MD Attending Provider Active S tart: January 14, 2025 Dr. Michelle Mccall MD Referring Provider Active S tart: January 14, 2025 Dr. Michelle Mccall MD Other Provider Active Start : January 14, 2025 Team Status: Active Member Role Status Dates Dr. Rogelio Colvin MD Primary Care Provider Active Start: January 19, 2025 Dr. Michelle Mccall MD Attending Provider Active S tart: January 19, 2025 Dr. Michelle Mccall MD Referring Provider Active S tart: January 19, 2025 Dr. Michelle Mccall MD Other Provider Active Start : January 19, 2025 Team Status: Inactive Member Role Status Dates Dr. Rogelio Colvin MD Primary Care Provider Active Start: January 19, 2025 End: January 20, 2025 Dr. Michelle Mccall MD Admit Provider Active Start : January 19, 2025 End: January 20, 2025 Dr. Michelle Mccall MD Attending Provider Active S tart: January 19, 2025 End: January 20, 2025 Dr. Michelle Mccall MD Referring Provider Active S tart: January 19, 2025 End: January 20, 2025 Team Status: Active Member Role Status Dates Dr. Rogelio Colvin MD Primary Care Provider Active Start: January 20, 2025 Dr. Michelle Mccall MD Admit Provider Active Start : January 20, 2025 Dr. Michelle Mccall MD Referring Provider Active S tart: January 20, 2025 Dr. Michelle Mccall MD Other Provider Active Start : [...] 09, 2025 End: February 09, 2025 Dr. Michelle Victor DO Emergency Provider Active Start: February 09, 2025 End: February 09, 2025 Team Status: Inactive Member Role Status Dates Dr. Rogelio Colvin MD Primary Care Provider Active Start: February 09, 2025 End: February 09, 2025 Dr. Michelle Victor DO Attending Provider Active Start: February 09, 2025 End: February 09, 2025 Dr. Michelle Victor DO Emergency Provider Active Start: February 09, 2025 End: February 09, 2025 Team Status: Active Member Role Status Dates Dr. Rogelio Colvin MD Primary Care Provider Active Start: February 09, 2025 Dr. Michelle Mccall MD Attending Provider Active S tart: February 09, 2025 Dr. Michelle Victor DO Referring Provider Active Start: February 09, 2025 Team Status: Inactive Member Role Status Dates Dr. Rogelio Colvin MD Primary Care Provider Active Start: February 16, 2025 End: February 16, 2025 Dr. Rogelio Colvin MD Referring Provider Active Start: February 16, 2025 End: February 16, 2025 Dr. Michelle Mccall MD Attending Provider Active S tart: February 16, 2025 End: February 16, 2025 Team Status: Inactive Member Role Status Dates Dr. Rogelio Colvin MD Primary Care Provider Active Start: March 02, 2025 End: March 04, 2025 Dr. Michelle Mccall MD Admit Provider Active Start : March 02, 2025 End: March 04, 2025 Dr. Michelle Mccall MD Attending Provider Active S tart: March 02, 2025 End: March 04, 2025 Dr. Michelle Mccall MD Referring Provider Active S tart: March 02, 2025 End: March 04, 2025 Team Status: Active Member Role Status Dates Dr. Rogelio Colvin MD Primary Care Provider Active Start: March 02, 2025 Dr. Michelle Mccall MD Admit Provider Active Start : March 02, 2025 Dr. Michelle Mccall MD Attending Provider Active S tart: March 02, 2025 Dr. Michelle Mccall MD Referring Provider Active S tart: March 02, 2025 Dr. Michelle Mccall MD Other Provider Active Start : March 02, 2025 Team Status: Active Member Role Status Dates Dr. Rogelio Colvin MD Primary Care Provider Active Start: March 03, 2025 Dr. Michelle Mccall MD Admit Provider Active Start : March 03, 2025 Dr. Michelle Mccall MD Attending Provider Active S tart: March 03, 2025 Dr. Michelle Mccall MD Referring Provider Active S tart: March 03, 2025 Dr. Michelle Mccall MD Other Provider Active Start : March 03, 2025 Team Status: Active Member Role Status Dates Dr. Rogelio Colvin MD Primary Care Provider Active Start: March 04, 2025 Dr. Michelle Mccall MD Admit Provider Active Start : March 04, 2025 Dr. Michelle Mccall MD Referring Provider Active S tart: March 04, 2025 Dr. Michelle Mccall MD Other Provider Active Start : [...] April 16, 2025 End: April 16, 2025 Team Status: Active Member Role/Relationship Status Dates Dr. Rogelio Colvin MD Primary Care Provider Active Team Status: Active Member Role/Relationship Status Dates Dr. Rogelio Colvin MD Primary Care Provider Active Start: January 19, 2025 Dr. Michelle Mccall MD Attending Provider Active S tart: January 19, 2025 Dr. Michelle Mccall MD Referring Provider Active S tart: January 19, 2025 Dr. Michelle Mccall MD Other Provider Active Start : January 19, 2025 Team Status: Inactive Member Role/Relationship Status Dates Dr. Rogelio Colvin MD Primary Care Provider Active Start: January 19, 2025 End: January 20, 2025 Dr. Michelle Mccall MD Admit Provider Active Start : January 19, 2025 End: January 20, 2025 Dr. Michelle Mccall MD Attending Provider Active S tart: January 19, 2025 End: January 20, 2025 Dr. Michelle Mccall MD Referring Provider Active S tart: January 19, 2025 End: January 20, 2025 Team Status: Active Member Role/Relationship Status Dates Dr. Rogelio Colvin MD Primary Care Provider Active Start: January 20, 2025 Dr. Michelle Mccall MD Admit Provider Active Start : January 20, 2025 Dr. Michelle Mccall MD Referring Provider Active S tart: January 20, 2025 Dr. Michelle Mccall MD Other Provider Active Start : January 20, 2025 JORGE A Schmitt Attending Provider Active Star t: January 20, 2025 Team Status: Inactive Member Role/Relationship Status Dates Dr. Rogelio Colvin MD Primary Care Provider Active Start: January 27, 2025 End: January 27, 2025 Dr. Rogelio Colvin MD Referring Provider Active Start: January 27, 2025 End: January 27, 2025 JORGE A Schmitt Attending Provider Active Star t: January 27, 2025 End: January 27, 2025 Team Status: Inactive Member Role/Relationship Status Dates Dr. Rogelio Colvin MD Primary Care Provider Active Start: January 27, 2025 End: January 27, 2025 JORGE A Schmitt Attending Provider Active Star t: January 27, 2025 End: January 27, 2025 Team Status: Inactive Member Role/Relationship Status Dates Dr. Rogelio Colvin MD Primary Care Provider Active Start: February 03, 2025 End: February 03, 2025 Dr. Rogelio Colvin MD Referring Provider Active Start: February 03, 2025 End: February 03, 2025 JORGE A Bauman Attending Provider Active Star t: February 03, 2025 End: February 03, 2025 Team Status: Inactive Member Role/Relationship Status Dates Dr. Rogelio Colvin MD Primary Care Provider Active Start: February 03, 2025 End: February 03, 2025 Dr. Zack Smiley MD Attending Provider Active S tart: February 03, 2025 End: February 03, 2025 Team Status: Inactive Member Role/Relationship Status Dates Dr. Rogelio Colvin MD Primary Care Provider Active Start: February 09, 2025 End: February 09, 2025 Dr. Michelle Victor DO Attending Provider Active Start: February 09, 2025 End: February 09, 2025 Dr. Michelle Victor DO Emergency Provider Active Start: February 09, 2025 End: February 09, 2025 Team Status: Active Member Role/Relationship Status Dates Dr. Rogelio Colvin MD Primary Care Provider Active Start: February 09, 2025 Dr. Michelle Mccall MD Attending Provider Active S tart: February 09, 2025 Dr. Michelle Victor DO Referring Provider Active Start: February 09, 2025 Team Status: Inactive Member Role/Relationship Status Dates Dr. Rogelio Colvin MD Primary Care Provider Active Start: February 16, 2025 End: February 16, 2025 Dr. Rogelio Colvin MD Referring Provider Active Start: February 16, 2025 End: February 16, 2025 Dr. Michelle Mccall MD Attending Provider Active S tart: February 16, 2025 End: February 16, 2025 Team Status: Inactive Member Role/Relationship Status Dates Dr. Rogelio Colvin MD Primary Care Provider Active Start: March 02, 2025 End: March 04, 2025 Dr. Michelle Mccall MD Admit Provider Active Start : March 02, 2025 End: March 04, 2025 Dr. Michelle Mccall MD Attending Provider Active S tart: March 02, 2025 End: March 04, 2025 Dr. Michelle Mccall MD Referring Provider Active S tart: March 02, 2025 End: March 04, 2025 Team Status: Active Member Role/Relationship Status Dates Dr. Rogelio Colvin MD Primary Care Provider Active Start: March 02, 2025 Dr. Michelle Mccall MD Admit Provider Active Start : March 02, 2025 Dr. Michelle Mccall MD Attending Provider Active S tart: March 02, 2025 Dr. Michelle Mccall MD Referring Provider Active S tart: March 02, 2025 Dr. Michelle Mccall MD Other Provider Active Start : March 02, 2025 Team Status: Active Member Role/Relationship Status Dates Dr. Rogelio Colvin MD Primary Care Provider Active Start: March 03, 2025 Dr. Michelle Mccall MD Admit Provider Active Start : March 03, 2025 Dr. Michelle Mccall MD Attending Provider Active S tart: March 03, 2025 Dr. Michelle Mccall MD Referring Provider Active S tart: March 03, 2025 Dr. Michelle Mccall MD Other Provider Active Start : March 03, 2025 Team Status: Active Member Role/Relationship Status Dates Dr. Rogelio Colvin MD Primary Care Provider Active Start: March 04, 2025 Dr. Michelle Mccall MD Admit Provider Active Start : March 04, 2025 Dr. Michelle Mccall MD Referring Provider Active S tart: March 04, 2025 Dr. Michelle Mccall MD Other Provider Active Start : March 04, 2025 JORGE A Schmitt Attending Provider Active Star t: March 04, 2025 Team Status: Inactive Member Role/Relationship Status Dates Dr. Rogelio Colvin MD Primary Care Provider Active Start: March 09, 2025 End: March 09, 2025 JORGE A Bauman Attending Provider Active Star t: March 09, 2025 End: March 09, 2025 JORGE A Bauman Referring Provider Active Star t: March 09, 2025 End: March 09, 2025 Team Status: Inactive Member Role/Relationship Status Dates Dr. Rogelio Colvin MD Primary Care Provider Active Start: March 10, 2025 End: March 10, 2025 Dr. Rogelio Colvin MD Referring Provider Active Start: March 10, 2025 End: March 10, 2025 JORGE A Schmitt Attending Provider Active Star t: March 10, 2025 End: March 10, 2025 Team Status: Inactive Member Role/Relationship Status Dates Dr. Rogelio Colvin MD Primary Care Provider Active Start: March 20, 2025 End: March 20, 2025 Dr. Rogelio Colvin MD Referring Provider Active Start: March 20, 2025 End: March 20, 2025 Dr. Dung Aguirre MD Attending Provider Active Start: March 20, 2025 End: March 20, 2025 Team Status: Inactive Member Role/Relationship Status Dates Dr. Rogelio Colvin MD Primary Care Provider Active Start: April 16, 2025 End: April 16, 2025 Dr. Emerson Jones MD Attending Provider Active S tart: April 16, 2025 End: April 16, 2025 Dr. Emerson Jones MD Emergency Provider Active S tart: April 16, 2025 End: April 16, 2025 Team Status: Inactive Member Role/Relationship Status Dates Dr. Rogelio Colvin MD Primary Care Provider Active Start: May 16, 2025 End: May 16, 2025 Dr. Emerson Jones MD Emergency Provider Active S tart: May 16, 2025 End: May 16, 2025 [employer] Relationship Specialty Start Date End Date Iker Colvin MD [address] [place] [address] PCP - General Geriatric Medicine 05/08/25 Michelle Hart MD [address], [place] [address] Orthopedic Surgery 05/08/25 Goals (unrecognized section and content) Goals may [...] Denies airbag deployment. C/o lower back pain Reason Comments New Patient 2nd opinion/Dr. 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 Needs opinion from Dr Gifford on the cause. Procedures AR OFFICE/OUTPATIENT NEW MODERATE MDM 45 MINUTES Michelle Hart MD [address] [place] [address] Phone: tel: fax: Ruiz Gifford MD [address] [facility] [address] [place] [address] Phone: tel: fax: Referral ID Status Reason Start Date Expiration Date Visits Requested Visits Authorized [id number] Pending Review Consult and Treat 05/08/2025 05/08/2026 1 1 Reason Onset Date Comments Other 05/20/2025 Scheduled Active and Recently Administ ered Medications [...] BE BASED ON THE PRIMARY CLINICAL RECORDS. [employer] provides no warranty or guarantee of the accuracy or completeness of information in this document.
== END | disposition home or self-care (01) ==
LOC: POLAB3 10:33
PROVIDERS: PCP Family Medicine Geriatric Medicine; Visit Provider Family Medicine Geriatric Medicine
DX: I10 Essential (primary) hypertension (principal); E78.5 Hyperlipidemia, unspecified
CPT/HCPCS: 36415; 80053; 80061; 84443; 85025

== ENCOUNTER 2025-08-01 22:19 | Emergency (ER) | payer OTHER, SELFPAY ==
[2025-08-01 22:20] VITALS: BP 150/110; PULSE 112; RESP 18; TEMP 36.2; O2SAT 98; BMI 33.0
[2025-08-01 22:37] VITALS: O2SAT 100
--- NOTE | 2025-08-01 22:51 | CT_ITS ---
EXAM: CT BRAIN/HEAD WITHOUT CONTRAST; SPINE CERVICAL WITHOUT CONTRAST CLINICAL HISTORY: INJURY/PAIN COMPARISON: 04/16/2025 TECHNIQUE: Noncontrast CT images of the head and cervical spine with multiplanar reconstructions. Dose reduction techniques were used including intermediate exposure control (AEC),iterative reconstruction technique, and/or mA and/or KV dose adjustments based on patient's size. FINDINGS: HEAD: No acute intracranial hemorrhage, extra-axial collection, mass effect or acute infarct. Ventricles and subarachnoid spaces are normal in size. Unremarkable orbits. Intact skull base and calvarium. Clear paranasal sinuses and mastoid air cells. CERVICAL SPINE: No acute fracture or subluxation. Alignment is anatomic. Mild multilevel spondylotic changes with varying degrees of disc space narrowing, anterior osteophytosis, uncovertebral spurring and hypertrophic facet arthropathy. No prevertebral soft tissue swelling. CT/Spine Cervical without Contras IMPRESSION: No acute traumatic findings. Mild cervical spondylotic changes. Reading Location: [facility]
--- NOTE | 2025-08-01 22:51 | CT_ITS ---
EXAM: CT BRAIN/HEAD WITHOUT CONTRAST; SPINE CERVICAL WITHOUT CONTRAST CLINICAL HISTORY: INJURY/PAIN COMPARISON: 04/16/2025 TECHNIQUE: Noncontrast CT images of the head and cervical spine with multiplanar reconstructions. Dose reduction techniques were used including intermediate exposure control (AEC),iterative reconstruction technique, and/or mA and/or KV dose adjustments based on patient's size. FINDINGS: HEAD: No acute intracranial hemorrhage, extra-axial collection, mass effect or acute infarct. Ventricles and subarachnoid spaces are normal in size. Unremarkable orbits. Intact skull base and calvarium. Clear paranasal sinuses and mastoid air cells. CERVICAL SPINE: No acute fracture or subluxation. Alignment is anatomic. Mild multilevel spondylotic changes with varying degrees of disc space narrowing, anterior osteophytosis, uncovertebral spurring and hypertrophic facet arthropathy. No prevertebral soft tissue swelling. CT/Brain/Head without Contrast IMPRESSION: No acute traumatic findings. Mild cervical spondylotic changes. Reading Location: [facility]
--- OUTSIDE RECORDS SUMMARY | 2025-08-01 23:23 | XMS RPT_ITS | CCD ---
Author Organization [facility] [employer] Care Team Providers Care Music Orchestrator Name Role Phone Dr. Rogelio Colvin Chi [...] Admit Provider Dr. Michelle Mccall Other Provider JORGE A Rebollar Attending [...] Admit Provider Dr. Michelle Mccall Other Provider JORGE A Rebollar Attending Provider [phone] Dr. Judah Srinivasan Attending Provider [phone] Dr. Judah Srinivasan Referring Provider [phone] Dr. Michelle Mccall Referring Provider [phone] JORGE A Reynolds Attending Provider Vinicius, Dr. Rogelio Mccray Primary Care Provider [phone] JORGE A Reynolds Referring Provider Vinicius, Dr. Rogelio Mccray Primary Care Provider Dr. Michelle Mccall Attending Provider [phone] Vinicius, Dr. Rogelio Mccray Referring Provider Dr. Tariq Flores Attending Provider [phone] Vinicius, Dr. Rogelio Mccray Primary Care Provider Vinicius, Dr. Rogelio Mccray Referring Provider Dr. Michelle Mccall Attending Provider [phone] Michelle Mccall Referring Provider [phone] Michelle Mccall Other Provider JORGE A Reynolds Attending Provider Vinicius, Dr. Rogelio Mccray Primary Care Provider Dr. Michelle Mccall Attending Provider [phone] JORGE A Jacques Referring Provider [phone] Vinicius, Dr. Rogelio Mccray Referring Provider JORGE A Jacques Attending Provider [phone] Generic Provider MD, No Assigned Pcp Primary Car e Provider Unavailable MENDY TYLER Attending Unavailable GENERIC PROVIDER, NO ASSIGNED PCP Primary Care Unavailable Vinicius TRISTAN, Dr. Rogelio Mccray Primary Care Provider [phone] Tami BANKS, Dr. Arcos Attending Provider Tami [...] Provider Sherice TRISTAN, Dr. Dixon Attending Provider Dr. Michelle Victor DO Emergency Provider [phone] Vinicius TRISTAN, Dr. Rogelio Mccray Primary Care Provider [phone] Vinicius TRISTAN, Dr. Rogelio Mccray Referring Provider Stefany TRISTAN, Dr. Clemente Attending Provider [phone] Stefany TRISTAN, Dr. Clemente Referring Provider Dr. Michelle Victor DO Attending Provider Dr. Michelle Victor DO Referring Provider Nadia Willis Referring Provider Timothy TRISTAN, Dr. Razo Attending Provider Robert TRISTAN, Dr. Norman Emergency Provider [phone] Vinicius TRISTAN, Dr. Rogelio Mccray Primary Care Provider [phone] Stefany TRISTAN, Dr. Clemente Attending Provider Dr. Michelle Mccall MD Referring Provider Stefany TRISTAN, Dr. Clemente Other Provider [phone] Georgie JULES, Teena Attending Provider [phone] Vinicius TRISTAN, Dr. Rogelio Mccray Referring Provider Robert TRISTAN, Dr. Norman Attending Provider Tanner TRISTAN, Michelle J Unavailable [phone] Vinicius TRISTAN, Rogelio-Chi Primary Care Provider [phone] RUIZ GIFFORD Attending Unavailable TANNER, MICHELLE Referring Unavailable VINICIUS, ROGELIO-CHI Primary Care Unavailable Vinicius TRISTAN, Dr. Rogelio Mccray Primary Care Provider [phone] Vinicius TRSITAN, Dr. Rogelio Mccray Referring Provider [phone] Stefany TRISTAN, Dr. Clemente Attending Provider [phone] Stefany TRISTAN, Dr. Clemente Admit Provider [phone] Stefany TRISTAN, Dr. Clemente Referring Provider Stefany TRISTAN, Dr. Clemente Other Provider [phone] Teena Bhatt Attending Provider [phone] Vinicius TRISTAN, Dr. Rogelio Mccray Attending Provider [phone] Vinicius, Rogelio Chi Primary Care Unavailable Jacques, Teena Attending Unavailable Schwiger, Michelle Attending Unavailable Vinicius, Rogelio Chi Primary Care Unavailable Vinicius, Rogelio Chi Primary Care Unavailable Perris, Michelle Attending Unavailable Perris, Michelle Referring Unavailable Stefany, Michelle Admitting Unavailable Sherice, [place] Attending Unavailable Vinicius, Rogelio Chi Primary Care Unavailable Vinicius, Rogelio Chi Primary Care Unavailable Perris, Michelle Referring Unavailable Stefany, Michelle Admitting Unavailable Perris, Michelle Consulting Unavailable Jacques, Teena Attending Unavailable Perris, Michelle Referring Unavailable Perris, Michelle Attending Unavailable Perris, Michelle Admitting Unavailable Perris, Michelle Consulting Unavailable Vinicius, Rogelio Chi Primary Care Unavailable Vinicius, Rogelio Chi Primary Care Unavailable Perris, Michelle Referring Unavailable Stefany, Michelle Consulting Unavailable Perris, Michelle Attending Unavailable Perris, Michelle Attending Unavailable Vinicius, Rogelio Chi Referring Unavailable Vinicius, Rogelio Chi Primary Care Unavailable Vinicius, Rogelio Chi Primary Care Unavailable Perris, Michelle Attending Unavailable Stefany, Michelle Referring Unavailable Perris, Michelle Admitting Unavailable Rikki, Nadia Attending Unavailable Rikki, Nadia Referring Unavailable Vinicius, Rogelio Chi Primary Care Unavailable Stefany, Michelle Attending Unavailable Vinicius, Rogelio Chi Referring Unavailable Vinicius, Rogelio Chi Primary Care Unavailable Jacques, Teena Attending Unavailable Vinicius, Rogelio Chi Referring Unavailable Vinicius, Rogelio Chi Primary Care Unavailable Dung Aguirre Attending Unavailable Vinicius, Rogelio Chi Referring Unavailable Vinicius, Rogelio Chi Primary Care Unavailable Jacques, Teena Attending Unavailable Vinicius, Rogelio Chi Primary Care Unavailable Stefany, Michelle Attending Unavailable Perris, Michelle Referring Unavailable Stefany, Michelle Consulting Unavailable Perris, Michelle Attending Unavailable Schwiger, Michelle Referring Unavailable Vinicius, Rogelio Chi Primary Care Unavailable Emerson Jones Attending Unavailable Vinicius, Rogelio Chi Primary Care Unavailable Vinicius, Rogelio Chi Primary Care Unavailable Vinicius, Rogelio Chi Attending Unavailable Vinicius, Rogeloi Chi Primary Care Unavailable Perris, Michelle Referring Unavailable Stefany, Michelle Attending Unavailable Rikki, Nadia Attending Unavailable Vinicius, Rogelio Chi Referring Unavailable Vinicius, Rogelio Chi Primary Care Unavailable Perris, Michelle Referring Unavailable Stefany, Michelle Attending Unavailable Vinicius, Rogelio Chi Primary Care Unavailable Vinicius, Rogelio Chi Primary Care Unavailable Jacques, Teena Attending Unavailable Vinicius, Rogelio Chi Referring Unavailable Vinicius, Rogelio Chi Referring Unavailable Jacques, Teena Attending Unavailable Vinicius, Rogelio Chi Primary Care Unavailable Isrrael Garrett Attending Unavailable Vinicius, Rogelio Chi Primary Care Unavailable Vinicius, Rogelio Chi Referring Unavailable Vinicius, Rogelio Chi Primary Care Unavailable Vinicius, Rogelio Chi Attending Unavailable Stefany, Michelle Referring Unavailable Stefany, Michelle Attending Unavailable Vinicius, Rogelio Chi Primary Care Unavailable Vinicius, Rogelio Chi Primary Care Unavailable Jacques, Teena Referring Unavailable Jacques, Teena Attending Unavailable Vinicius, Rogelio Chi Referring Unavailable Vinicius, Rogelio Chi Primary Care Unavailable Vinicius, Rogelio Chi Attending Unavailable Emerson Jones Attending Unavailable Vinicius, [...] mg / valsartan 160 mg oral tablet (17 sources) Thiazide Diuretic, [...] PO Q8H 0 December 07, 2022 12:00am [id number], every 8 hourly for 3 days and [...] 1:00am PARoxetine hydrochloride 20 mg oral tablet (17 sources) Serotonin Reuptake Inhibitor Start: 02-13-2023 Paroxetine [...] Sig (Original) acetaminophen 500 mg oral tablet (4 sources) Start: 03-04-2025 End: 03-10-2025 take 2 [...] preference? Yes apixaban 5 mg oral tablet (17 sources) Factor Xa Inhibitor Start: 12-31-2022 End: 01-04-2023 take 1 tablet by mouth twice daily Apixaban (Eliquis Dvt-Pe Treat 30d Start) 5 mg (74 tabs) tablets,dose pack Discontinued 5 mg PO TWICE A DAY 74 0 December 31, 2022 1:00am January 04, 2023 10:19am baclofen 10 mg oral tablet (3 sources) gamma-Aminobutyric Acid-ergic Agonist Start: 02-16-2025 End: 03-02-2025 take 1 tablet by mouth twice daily Baclofen 10 mg tablet Discontinued 10 mg PO TWICE A DAY February 16, 2025 12:00am March 02, 2025 4:28pm benzonatate 100 mg oral capsule (6 sources) Non-narcotic Antitussive Start: 01-20-2025 End: 01-27-2025 take 1 capsule by mouth three times daily as needed for cough Benzonatate 100 mg Capsule Discontinued 100 mg PO 3 TIMES DAILY NEEDED as needed for Cough 42 14 0 January 20, 2025 12:00am January 27, 2025 1:44pm cephalexin 500 mg oral capsule (8 sources) Cephalosporin Antibacterial Start: 05-20-2023 End: 10-16-2023 take 1 capsule by mouth three times daily Cephalexin 500 mg capsule Discontinued 500 mg PO 3 times daily 21 0 May 20, 2023 12:00am October 16, 2023 12:54pm clopidogrel 75 mg oral tablet (9 sources) P2Y12 Platelet Inhibitor Start: 10-16-2023 End: 01-02-2025 take 1 tablet by mouth once daily Clopidogrel (Plavix) 75 mg tablet Discontinued 75 mg PO DAILY 90 3 October 16, 2023 1:00am January 02, 2025 11:40am dicyclomine hydrochloride 20 mg oral tablet (6 sources) Anticholinergic Start: 11-04-2024 End: 01-02-2025 take 1 tablet by mouth three times daily as needed for pain Dicyclomine 20 mg tablet Discontinued 20 mg PO THREE TIMES A DAY as needed for abdominal pain 30 0 November 04, 2024 3:00am January 02, 2025 11:40am docusate sodium 100 mg oral capsule (3 sources) Start: 03-04-2025 End: 03-10-2025 take 1 capsule by mouth twice daily as needed for constipation Docusate Sodium 100 mg Capsule Discontinued 100 mg PO TWICE DAILY NEEDED as needed for Constipation 0 0 March 04, 2025 12:00am March 10, 2025 11:17am Enoxaparin (Lovenox) 120 mg/0.8 mL syringe (6 sources) Start: 01-14-2025 End: 01-15-2025 Enoxaparin (Lovenox) 120 mg/0.8 mL syringe Discontinued 120 mg SC Q12H 48 30 1 January 14, 2025 1:00am January 15, 2025 2:51pm Start: 01-14-2025 End: 01-15-2025 Enoxaparin (Lovenox) 120 mg/ 0.8 mL syringe Discontinued 120 mg SC Q12H 48 30 January 14, 2025 1:00am January 15, 2025 2:51pm gabapentin 300 mg oral capsule (3 sources) Anti-epileptic Agent Start: 02-16-2025 End: 03-02-2025 take 1 capsule by mouth three times daily Gabapentin 300 mg capsule Discontinued 300 mg PO THREE TIMES A DAY February 16, 2025 12:00am March 02, 2025 4:28pm hydroCHLOROthiazide 12.5 mg / losartan potassium 100 mg oral tablet (19 sources) Thiazide Diuretic, Angiotensin 2 Receptor Lori [...] 10/23/2024 Active methocarbamol 750 mg oral tablet (5 sources) Muscle Relaxant Start: 03-04-2025 End: 03-10-2025 [...] Active ondansetron 4 mg disintegrating oral tablet (17 sources) Serotonin-3 Receptor Antagonist Start: 11-04-2024 End: [...] 9:39am oxyCODONE hydrochloride 5 mg oral tablet (20 sources) Opioid Agonist Start: 03-04-2025 End: 04-07-2025 [...] day 9) tiZANidine 2 mg oral tablet (18 sources) Central alpha-2 Adrenergic Agonist Start: 12-07-2022 [...] 2023 2:45pm valsartan 160 mg oral tablet (16 sources) Angiotensin 2 Receptor Lori Start: 01-04-2023 End: 02-13-2023 take 1 tablet by mouth once daily Valsartan 160 mg tablet Discontinued 160 mg PO DAILY January 04, 2023 1:00am February 13, 2023 2:24pm blood pressure valsartan/hydrochlorothiazide 160/12.5 Problems Active Problems Problem Classification Problem Date Documented Da te Episodic/Chronic Essential hypertension (20 sources) Hypertensive disorder; Translations: [Essential (primary) hypertension] Onset: 06-03-2025 12-06-2022 Chronic Fracture of upper limb (8 sources) Open fracture finger proximal phalanx; Translations: [Displaced fracture of proximal phalanx of unspecified finger, initial encounter for open fracture] 05-20-2023 Episodic Intestinal infection (6 sources) Viral gastroenteritis; Translations: [Viral intestinal infection, unspecified] 11-12-2024 Episodic Intracranial injury (11 sources) Concussion injury of brain; Translations: [Closed head injury with concussion] 04-06-2023 Episodic Open wounds of extremities (20 sources) Avulsion injury of fingernail; Translations: [Unspecified open wound of unspecified finger with damage to nail, initial encounter] 05-20-2023 Episodic Other aftercare (13 sources) Surgical follow-up; Translations: [Encounter for surgical aftercare following surgery on the circulatory system] 05-02-2023 Episodic Other aftercare (5 sources) Long-term current use of anticoagulant; Translations: [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] 04-16-2025 Episodic Other congenital anomalies (6 sources) Spinal stenosis of lumbar region; Translations: [Other congenital malformations of spine, not associated with scoliosis] 03-23-2025 Chronic Other connective tissue disease (17 sources) Pain in lower limb; Translations: [Pain in left leg] 12-31-2022 Episodic Other connective tissue disease (10 sources) Pain in left lower limb; Translations: [Pain in left leg] 01-06-2025 Episodic Other diseases of veins and lymphatics (20 sources) Occlusion of iliac vein; Translations: [Compression of vein] 05-02-2023 Episodic Other diseases of veins and lymphatics (5 sources) Compression of vein; Translations: [Compression of vein] Onset: 06-17-2025 05-02-2023 Episodic Other injuries and conditions due to external causes (16 sources) Lower back injury; Translations: [Unspecified injury of lower back, initial encounter] 01-04-2023 Episodic Other injuries and conditions due to external causes (5 sources) Closed injury of head; Translations: [Unspecified injury of head, initial encounter] 04-16-2025 Episodic Other injuries and conditions due to external causes (1 source) Unspecified injury of head, initial encounter; Translations: [Unspecified injury of head, initial encounter] Onset: 04-20-2025 Episodic Other nervous system disorders (19 sources) Unable to walk; Translations: [Difficulty in walking, not elsewhere classified] 12-06-2022 Chronic Other nervous system disorders (8 sources) Difficulty in walking, not elsewhere classified; Translations: [Difficulty in walking] 12-06-2022 Chronic Other nervous system disorders (16 sources) Complex regional pain syndrome of lower limb; Translations: [Complex regional pain syndrome I of unspecified lower limb] 01-04-2023 Chronic Other nervous system disorders (5 sources) Complex regional pain syndrome I of unspecified lower limb; Translations: [Reflex sympathetic dystrophy of the lower limb] 01-04-2023 Chronic Other nervous system disorders (6 sources) Postoperative pain ; Translations: [Other acute postprocedural pain] 01-20-2025 Episodic Phlebitis; thrombophlebitis and thromboembolism (2 sources) 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; Translations: [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] Onset: 03-13-2025 Chronic Pulmonary heart disease (14 sources) Pulmonary embolism; Translations: [Other pulmonary embolism without acute cor pulmonale] 01-19-2023 Episodic Spondylosis; intervertebral disc disorders; other back [...] encounter] Onset: 10-18-2024 10-18-2024 Episodic Substance-related disorders (2 sources) History of clinical finding in subject; Translations: [History of marijuana use] 05-16-2025 Chronic Syncope (16 sources) Vasovagal syncope; Translations: [Syncope and collapse] 01-19-2023 Episodic Unclassified (6 sources) M51.36 - Other intervertebral disc degeneration, lumbar region,M54.10 - Radiculopathy, site unspecified Unclassified (4 sources) M51.36 - Other intervertebral disc degeneration, lumbar region,S39.92XA - Unspecified injury of lower back, initial encounter,I87.1 - Compression of vein Unclassified (2 sources) Degeneration of intervertebral disc of lumbar region Unclassified (2 sources) Radiculopathy Unclassified (1 source) Stenosis of iliac vein Unclassified (2 sources) New Patient; Translations: [New Patient] Onset: 05-20-2025 Unclassified (1 source) Low back pain, unspecified; [...] sites of trunk] Onset: 01-15-2025 01-04-2023 Episodic Other nervous system disorders (2 sources) Other acute postprocedural pain; Translations: [Other acute postprocedural pain] Onset: 03-11-2025 Episodic Phlebitis; thrombophlebitis and thromboembolism (20 sources) Deep venous thrombosis; Translations: [Acute embolism and thrombosis of unspecified deep veins of unspecified lower extremity] Onset: 12-15-2024 12-31-2022 Episodic Residual codes; unclassified (1 source) Localized edema; Translations: [Localized edema] Onset: 02-20-2025 Episodic Results Test Name Value Interpretation Reference Range Facility Absolute lymphocyte countOrd ered By: Rogelio Colvin on 05-28-2025 Lymphocytes Auto (Unsp spec) [#/Vol] 1.29 10*3/uL 0.83-4.51 [facility] Absolute neutrophil countOrd ered By: Rogelio Colvin on 05-28-2025 Neutrophils (Bld) [#/Vol] 2.7 10*3/uL 2.0-7.7 [facility] Anion gap in Serum or Plasma Ordered By: Rogelio Colvin on 05-28-2025 Anion gap [Moles/Vol] 15 mmol/L 5-15 [facility] Automated lymphocyte count a s percentage of total leukocytesOrdered By: Rogelio Colvin 05-28-2025 Lymphocytes/100 WBC Auto (Unsp spec) 28.6 % - [facility] BUN/creatinine ratioOrdered By: Rogelio Colvin 05-28-2025 Urea nitrogen/Creatinine [Mass ratio] 13.4 mg/mg 10-20 [facility] Basophil percentageOrdered B y: Rogelio Colvin on 05-28-2025 Basophils/100 WBC (Bld) 1.3 % High 0-1 [facility] Bilirubin, totalOrdered By: Rogelio Colvin on 05-28-2025 Bilirubin [Mass/Vol] 0.50 mg/dL 0.00-1.30 [facility] CBC W/Diff, Automatedon 07-1 -2024 Absolute Lymph 1.29 X10 3/uL Normal 0.83-4.51 [facility] Comment on above: Performed By: #### L [id number], L500.4050, L500.4100, L100.0100 ####[facility] [address] [place], [address] Absolute Neut 2.7 X10 3/uL Normal 2.0-7.7 [facility] Comment on above: Performed By: #### L [id number], L500.4050, L500.4100, L100.0100 ####[facility] [address] [place], [address] Basophils/100 WBC (Bld) 1.3 % High 0-1 [facility] Comment on above: Performed By: #### L [id number], L500.4050, L500.4100, L100.0100 ####[facility] [address] [place], [address] Eosinophils/100 WBC (Bld) 1.6 % Normal 0-5 [facility] Comment on above: Performed By: #### L 501.9520, L500.4050, L500.4100, L100.0100 ####[facility] [address] [place], [address] Erythrocyte distribution width (RBC) [Ratio] 12.6 % Normal 11.6-14.6 [facility] Comment on above: Performed By: #### L 501.9520, L500.4050, L500.4100, L100.0100 ####[facility] [address] [place], [address] Hematocrit (Bld) [Volume fraction] 42.7 % Normal 40-54 [facility] Comment on above: Performed By: #### L 501.9520, L500.4050, L500.4100, L100.0100 ####[facility] [address] [place], [address] Hemoglobin (Bld) [Mass/Vol] 14.5 g/dL Normal 13.0-16.5 [facility] Comment on above: Performed By: #### L 501.9520, L500.4050, L500.4100, L100.0100 ####[facility] [address] [place], [address] IG% 0.400 Normal 0.0-0.9 [facility] Comment on above: Result Comment: IG% - Immature Granulocytes (promyelocytes, myelocytes and metamyelocytes) > 1% indicates that a LEFT SHIFT is Present. Performed By: #### L 501.9520, L500.4050, L500.4100, L100.0100 ####[facility] [address] [place], [address] Lymphocytes/100 WBC (Bld) 28.6 % Normal 19-41 [facility] Comment on above: Performed By: #### L 501.9520, L500.4050, L500.4100, L100.0100 ####[facility] [address] [place], [address] MCH (RBC) [Entitic mass] 29.8 pg Normal 27.0-32.0 [facility] Comment on above: Performed By: #### L 501.9520, L500.4050, L500.4100, L100.0100 ####[facility] [address] [place], [address] MCHC (RBC) [Mass/Vol] 34.0 g/dL Normal 32-36 [facility] Comment on above: Performed By: #### L 501.9520, L500.4050, L500.4100, L100.0100 ####[facility] [address] [place], [address] MCV (RBC) [Entitic vol] 87.7 fL Normal 80-94 [facility] Comment on above: Performed By: #### L 501.9520, L500.4050, L500.4100, L100.0100 ####[facility] [address] [place], [address] Monocytes/100 WBC (Bld) 8.9 % Normal 0-10 [facility] Comment on above: Performed By: #### L 501.9520, L500.4050, L500.4100, L100.0100 ####[facility] [address] [place], [address] Neutrophils/100 WBC (Bld) 59.2 % Normal 47-70 [facility] Comment on above: Performed By: #### L 501.9520, L500.4050, L500.4100, L100.0100 ####[facility] [address] [place], [address] Nucleated RBC (Bld) [#/Vol] 0 10*3/uL Normal 0-5 [facility] Comment on above: Performed By: #### L 501.9520, L500.4050, L500.4100, L100.0100 ####[facility] [address] [place], [address] Platelet mean volume (Bld) [Entitic vol] 9.2 fL Normal 6.2-12.0 [facility] Comment on above: Performed By: #### L 501.9520, L500.4050, L500.4100, L100.0100 ####[facility] [address] [place], [address] Platelets (Bld) [#/Vol] 244 10*3/uL Normal 150-450 [facility] Comment on above: Performed By: #### L 501.9520, L500.4050, L500.4100, L100.0100 ####[facility] [address] [place], [address] RBC (Bld) [#/Vol] 4.87 10*6/uL Normal 4.6-6.2 [facility] Comment on above: Performed By: #### L 501.9520, L500.4050, L500.4100, L100.0100 ####[facility] [address] [place], [address] RDW SD 40.4 fl Normal 35.1-43.9 [facility] Comment on above: Performed By: #### L 501.9520, L500.4050, L500.4100, L100.0100 ####[facility] [address] [place], [address] WBC (Bld) [#/Vol] 4.5 10*3/uL Normal 4.4-11.0 [facility] Comment on above: Performed By: #### L 501.9520, L500.4050, L500.4100, L100.0100 ####[facility] [address] [place], [address] Calculated very low density lipoprotein (VLDL) cholesterol measurementOrdered By: Rogelio Colvin on 05-28-2025 Calculated very low density lipoprotein (VLDL) cholesterol measurement 57 mg/dL High 5-40 [facility] Carbon dioxide, total [Moles /volume] in Central venous bloodOrdered By: Rogelio Colvin on 05-28-2025 CO2 [Moles/Vol] 23.2 mmol/L 21.0-32.0 [facility] Chloride assayOrdered By: Zachariah Colvin on 05-28-2025 Chloride [Moles/Vol] 100 mmol/L 98-108 [facility] Comprehensive Metabolic Prof ilon 05-28-2025 Albumin [Mass/Vol] 4.3 g/dL Normal 3.5-5.0 [facility] Comment on above: Performed By: #### L 501.9520, L500.4050, L500.4100, L100.0100 ####[facility] [address] [place], [address] Albumin/Globulin [Mass ratio] 1.6 {ratio} Normal 0.9-2.4 [facility] Comment on above: Performed By: #### L 501.9520, L500.4050, L500.4100, L100.0100 ####[facility] [address] [place], [address] ALK PHOS 71 U/L Normal 40-129 [facility] Comment on above: Performed By: #### L 501.9520, L500.4050, L500.4100, L100.0100 ####[facility] [address] [place], [address] ALT [Catalytic activity/Vol] 31 U/L Normal <=46 [facility] Comment on above: Performed By: #### L 501.9520, L500.4050, L500.4100, L100.0100 ####[facility] [facility] [address] [place], [address] AST [Catalytic activity/Vol] 21 U/L Normal <=37 [facility] Comment on above: Result Comment: Hemo lysis present, Results??could be affected. ?? Performed By: #### L 501.9520, L500.4050, L500.4100, L100.0100 ####[facility] [address] [place], [address] Bilirubin [Mass/Vol] 0.50 mg/dL Normal 0.00-1.30 [facility] Comment on above: Performed By: #### L 501.9520, L500.4050, L500.4100, L100.0100 ####[facility] [address] [place], [address] BUN/CRE 13.4 RATIO Normal 10-20 [facility] Comment on above: Performed By: #### L 501.9520, L500.4050, L500.4100, L100.0100 ####[facility] [address] [place], [address] Calcium [Mass/Vol] 9.4 mg/dL Normal 7.6-11.0 [facility] Comment on above: Performed By: #### L 501.9520, L500.4050, L500.4100, L100.0100 ####[facility] [address] [place], [address] Chloride [Moles/Vol] 100 mmol/L Normal 98-108 [facility] Comment on above: Performed By: #### L 501.9520, L500.4050, L500.4100, L100.0100 ####[facility] [address] [place], [address] CO2 [Moles/Vol] 23.2 mmol/L Normal 21.0-32.0 [facility] Comment on above: Performed By: #### L 501.9520, L500.4050, L500.4100, L100.0100 ####[facility] [address] [place], [address] Creatinine [Mass/Vol] 1.14 mg/dL Normal 0.70-1.20 [facility] Comment on above: Performed By: #### L 501.9520, L500.4050, L500.4100, L100.0100 ####[facility] [address] [place], [address] GAP 15 Normal 5-15 [facility] Comment on above: Performed By: #### L 501.9520, L500.4050, L500.4100, L100.0100 ####[facility] [address] [place], [address] GFR/1.73 sq M.predicted among non-blacks MDRD (S/P/Bld) [Vol rate/Area] 78 mL/min/{1.73_m2} Normal >60 [facility] Comment on above: Result Comment: mL/m in/1.73m2 CKD-EPI Creatinine Equation (2020) Performed By: #### L 501.9520, L500.4050, L500.4100, L100.0100 ####[facility] [address] [place], [address] Globulin (S) [Mass/Vol] 2.8 g/dL Normal 2.2-4.2 [facility] Comment on above: Performed By: #### L 501.9520, L500.4050, L500.4100, L100.0100 ####[facility] [address] [place], [address] Glucose [Mass/Vol] 124 mg/dL High 70-99 [facility] Comment on above: Performed By: #### L 501.9520, L500.4050, L500.4100, L100.0100 ####[facility] [address] [place], [address] Potassium [Moles/Vol] 4.0 mmol/L Normal 3.3-5.1 [facility] Comment on above: Result Comment: Hemo lysis present, Results??could be affected. ?? Performed By: #### L 501.9520, L500.4050, L500.4100, L100.0100 ####[facility] [address] [place], [address] Sodium [Moles/Vol] 138 mmol/L Normal 133-145 [facility] Comment on above: Performed By: #### L 501.9520, L500.4050, L500.4100, L100.0100 ####[facility] [address] [place], [address] T PROT 7.1 g/dL Normal 5.9-8.4 [facility] Comment on above: Performed By: #### L 501.9520, L500.4050, L500.4100, L100.0100 ####[facility] [address] [place], [address] Urea nitrogen [Mass/Vol] 15 mg/dL Normal 4-19 [facility] Comment on above: Performed By: #### L 501.9520, L500.4050, L500.4100, L100.0100 ####[facility] [address] [place], [address] Eosinophil percentageOrdered By: Rogelio Colvin on 05-28-2025 Eosinophils/100 WBC (Bld) 1.6 % 0-5 [facility] Erythrocyte distribution wid th ratioOrdered By: Rogelio Colvin on 05-28-2025 Erythrocyte distribution width (RBC) [Ratio] 12.6 % 11.6-14.6 [facility] Erythrocyte distribution wid th standard deviationOrdered By: Rogelio Colvin on 05-28-2025 Erythrocyte distribution width (RBC) [Ratio] 40.4 fl 35.1-43.9 [facility] Glomerular filtration rate ( GFR) estimation/1.73 sq m using serum, plasma, or whole bOrdered By: Rogelio Colvin on 05-28-2025 GFR/1.73 sq M.predicted among non-blacks MDRD (S/P/Bld) [Vol rate/Area] 78 mL/min/{1.73_m2} >60 [facility] Comment on above: mL/min/1.73m2 CKD-EP I Creatinine Equation (2020) Hematocrit Auto (Bld) [Volum e fraction]Ordered By: Rogelio Colvin on 05-28-2025 Hematocrit (Bld) [Volume fraction] 42.7 % 40-54 [facility] Hemoglobin measurementOrdere d By: Rogelio Colvin on 05-28-2025 Hemoglobin (Bld) [Mass/Vol] 14.5 g/dL 13.0-16.5 [facility] Immature granulocytes/100 WB C Auto (Bld)Ordered By: Rogelio Colvin on 05-28-2025 Immature granulocytes/100 WBC (Bld) 0.400 % 0.0-0.9 [facility] Comment on above: IG% - Immature Granu locytes (promyelocytes, myelocytes and metamyelocytes) > 1% indicates that a LEFT SHIFT is Present. LDL calc ser/plasOrdered By: Rogelio Colvin on 05-28-2025 Cholesterol in LDL [Mass/Vol] 154 mg/dL [facility] Comment on above: Nykyyvxafv=929-369 m g/dL & Higher Fqwn=960 mg/dL or greater Laboratory - Chemistry and C hemistry - challengeOrdered By: Rogelio Colvin on 05-28-2025 AST [Catalytic activity/Vol] 21 U/L <38 [facility] Comment on above: Hemolysis present, R esults could be affected. Lipid Profileon 05-28-2025 CHOL:HDL 6.64 Normal [facility] Comment on above: Performed By: #### L 501.9520, L500.4050, L500.4100, L100.0100 ####[facility] [address] [place], [address] Cholesterol [Mass/Vol] 249 mg/dL High <=200 [facility] Comment on above: Result Comment: Chol esterol level, Desirable <200 mg/dL Borderline high cholesterol 200-239 mg/dL High cholesterol >=240 mg/dL Recommendations of the NCEP Adult Treatment Panel for the following risk-cutoff thresholds for the [place] population. Performed By: #### L 501.9520, L500.4050, L500.4100, L100.0100 ####[facility] [address] [place], [address] Cholesterol in HDL [Mass/Vol] 38 mg/dL Low [facility] Comment on above: Result Comment: Luz ondottie Cholesterol Education Program (NCEP) guidelines: <40 mg/dL: Low HDL-cholesterol (major risk factor for CHD) >= 60 mg/dL: High HDL-cholesterol (negative risk factor for CHD) HDL-cholesterol is affected by a number of factors, e.g. smoking, exercise, hormones, sex and age. Performed By: #### L 501.9520, L500.4050, L500.4100, L100.0100 ####[facility] [address] [place], [address] Cholesterol in LDL [Mass/Vol] 154 mg/dL Normal [facility] Comment on above: Result Comment: Bord bckhko=152-064 mg/dL Higher Rund=144 mg/dL or greater Performed By: #### L 501.9520, L500.4050, L500.4100, L100.0100 ####[facility] [address] [place], [address] Cholesterol in VLDL [Mass/Vol] 57 mg/dL High 5-40 [facility] Comment on above: Performed By: #### L 501.9520, L500.4050, L500.4100, L100.0100 ####[facility] [address] [place], [address] Triglyceride [Mass/Vol] 286 mg/dL High [facility] Comment on above: Result Comment: The drugs N-Acetylcysteine and Metamizole may falsely depress this assay. Normal range: <150 mg/dL Borderline High: 150-199 mg/dL High: 200-499 mg/dL Very High: >500 mg/dL Performed By: #### L 501.9520, L500.4050, L500.4100, L100.0100 ####[facility] [address] [place], [address] MCV (mean corpuscular volume ) determinationOrdered By: Rogelio Colvin on 05-28-2025 MCV (RBC) [Entitic vol] 87.7 fL 80-94 [facility] Mean corpuscular hemoglobin (MCH) determinationOrdered By: Rogelio Colvin on 05-28-2025 MCH (RBC) [Entitic mass] 29.8 pg 27.0-32.0 [facility] Mean corpuscular hemoglobin concentration (MCHC) determinationOrdered By: Rogelio Colvin on 05-28-2025 MCHC (RBC) [Mass/Vol] 34.0 g/dL 32-36 [facility] Mean platelet volume determi nationOrdered By: Rogelio Colvin on 05-28-2025 Platelet mean volume (Bld) [Entitic vol] 9.2 fL 6.2-12.0 [facility] Monocyte percentageOrdered B y: Rogelio Colvin on 05-28-2025 Monocytes/100 WBC (Bld) 8.9 % 0-10 [facility] Neutrophil percentageOrdered By: Rogelio Colvin on 05-28-2025 Neutrophils/100 WBC (Bld) 59.2 % 47-70 [facility] Nucleated red blood cell per centageOrdered By: Rogelio Colvin on 05-28-2025 Nucleated RBC/100 WBC (Bld) [Ratio] 0 % 0-5 [facility] Platelet countOrdered By: Zachariah Colvin on 05-28-2025 Platelets (Bld) [#/Vol] 244 10*3/uL 150-450 [facility] Potassium measurement (mass/ volume)Ordered By: Rogelio Colvin on 05-28-2025 Potassium (Unsp spec) [Mass/Vol] 4.0 mmol/L 3.3-5.1 [facility] Comment on above: Hemolysis present, R esults could be affected. RBC Auto (Bld) [#/Vol]Ordere d By: Rogelio Colvin on 05-28-2025 RBC (Bld) [#/Vol] 4.87 10*6/uL 4.6-6.2 [facility] Screening total cholesterol/ high density lipoprotein (HDL) cholesterol ratioOrdered By: Rogelio Colvin on 05-28-2025 Cholesterol.total/Choles terol in HDL [Mass ratio] 6.64 {ratio} [facility] Serum creatinine measurement (mass/volume)Ordered By: Rogelio Colvin on 05-28-2025 Creatinine [Mass/Vol] 1.14 mg/dL 0.70-1.20 [facility] Serum globulin measurementOr dered By: Rogelio Colvin 05-28-2025 Globulin (S) [Mass/Vol] 2.8 g/dL 2.2-4.2 [facility] Serum glucose measurement (m ass/volume)Ordered By: Rogelio Colvin 05-28-2025 Glucose [Mass/Vol] 124 mg/dL High 70-99 [facility] Serum or plasma alanine sandhu otransferase (ALT) measurementOrdered By: Rogelio Vinicius 05-28-2025 ALT [Catalytic activity/Vol] 31 U/L <47 [facility] Serum or plasma albumin rosangela urement (mass/volume)Ordered By: Rogelio Vinicius 05-28-2025 Albumin [Mass/Vol] 4.3 g/dL 3.5-5.0 [facility] Serum or plasma albumin/glob ulin mass ratioOrdered By: Rogelio Vinicius05-28-2025 Albumin/Globulin [Mass ratio] 1.6 {ratio} 0.9-2.4 [facility] Serum or plasma alkaline herminio sphatase measurementOrdered By: Rogelio Vinicius 05-28-2025 ALP [Catalytic activity/Vol] 71 U/L 40-129 [facility] Serum or plasma calcium rosangela urement (mass/volume)Ordered By: Rogelio Vinicius 05-28-2025 Calcium [Mass/Vol] 9.4 mg/dL 7.6-11.0 [facility] Serum or plasma cholesterol in HDL measurement (mass/volume)Ordered By: Rogelio Vinicius 05-28-2025 Cholesterol in HDL [Mass/Vol] 38 mg/dL Low >40 [facility] Comment on above: National Cholesterol Education Program (NCEP) guidelines:<40 mg/dL: Low HDL-cholesterol (major risk factor for CHD)>= 60 mg/dL: High HDL-cholesterol (negative risk factor for CHD)HDL-cholesterol is affected by a number of factors, e.g. smoking, exercise, hormones, sex and age. Serum or plasma cholesterol measurement (mass/volume)Ordered By: Rogelio Vinicius 05-28-2025 Cholesterol [Mass/Vol] 249 mg/dL High <201 [facility] Comment on above: Cholesterol level, D esirable <200 mg/dLBorderline high cholesterol 200-239 mg/dLHigh cholesterol >=240 mg/dLRecommendations of the NCEP Adult Treatment Panel for the following risk-cutoff thresholds for the [place] population. Serum or plasma urea nitroge n measurement (mass/volume)Ordered By: Rogelio Colvin 05-28-2025 Urea nitrogen [Mass/Vol] 15 mg/dL 4-19 [facility] Sodium levelOrdered By: Rogelio Colvin on 05-28-2025 Sodium [Moles/Vol] 138 mmol/L 133-145 [facility] TSH DL <= 0.005 mIU/L QnOrde red By: Rogelio Colvin on 05-28-2025 TSH Qn 2.830 uIU/mL 0.300-4.200 [facility] Thyroid Stim Hormone (TSH)on 05-28-2025 TSH 2.830 uIU/mL Normal 0.300-4.200 [facility] Comment on above: Performed By: #### L 501.9520, L500.4050, L500.4100, L100.0100 ####[facility] [address] [place], [address] Total proteinOrdered By: Rogelio Colvin on 05-28-2025 Protein [Mass/Vol] 7.1 g/dL 5.9-8.4 [facility] Triglycerides measurementOrd ered By: Rogelio Colvin on 05-28-2025 Triglyceride [Mass/Vol] 286 mg/dL High <199 [facility] Comment on above: The drugs N-Acetylcy steine and Metamizole may falsely depress this assay. Normal range: <150 mg/dLBorderline High: 150-199 mg/dLHigh: 200-499 mg/dLVery High: >500 mg/dL White blood cell (WBC) count Ordered By: Rogelio Colvin on 05-28-2025 WBC (Bld) [#/Vol] 4.5 10*3/uL 4.4-11.0 [facility] Progress Noteon 05-21-2025 Progress Note We want to inform you that your patient's blood pressure was noted to be elevated in our office today. We thank you for trusting us with your patient's health. Last BP: 05/20/25 130/92 05/20/25 150/90 Normal [facility] 36on 05-20-2025 36 Patient informed Normal [facility] 36 LVM Normal [facility] 36 ----- Message from Ruiz Gifford MD sent at 05/20/2025 3:34 PM EDT ----- Let the patient know that I spoke to Dr. Hart and that his office will plan to get him in for further evaluation of his spine. Normal [facility] Office Visiton 05-20-2025 Follow-up visit [id number] Delta Cheek 1975 M Date Provider Department Center 05/20/2025 [id number] [facility] None Family History Problem Relation Age of Onset Heart disease Father Other Father Comments: CVA (cerebral vascular accident) Family Status - Relation Status Age at Mother Unknown Father Level of Service:73417 NC OFFICE/OUTPATIENT NEW LOW MDM 30 MINUTES Reason for Visit and Comments: New Patient [542] - 2nd opinion/Dr. 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 Rep #: [id number] : 1975 49 From: Zack Smiley MD [...] Normal sinus rhythm Normal ECG Confirmed by SHERICE TRISTAN, ZACK ([id number]), development editor SARAH GOLDMAN ([id number]) on 05/18/2025 10:55:32 AM Referred By: Confirmed By: ZACK SMILEY MD 05/18/25 1055 Date Zack Smiley MD CC: Dr. Emerson Jones MD; Dr. Rogelio Colvin MD Signed Normal [facility] Absolute lymphocyte countOrd ered By: Emerson Jones on 05-16-2025 Lymphocytes Auto (Unsp spec) [#/Vol] 1.05 10*3/uL 0.83-4.51 [facility] Absolute neutrophil countOrd ered By: Emerson Jones on 05-16-2025 Neutrophils (Bld) [#/Vol] 4.6 10*3/uL 2.0-7.7 [facility] Anion gap in Serum or Plasma Ordered By: Emerson Jones on 05-16-2025 Anion gap [Moles/Vol] 10 mmol/L 5-15 [facility] Automated lymphocyte count a s percentage of total leukocytesOrdered By: Emerson Jones on 05-16-2025 Lymphocytes/100 WBC Auto (Unsp spec) 16.4 % Low 19-41 [facility] BUN/creatinine ratioOrdered By: Emerson Jones on 05-16-2025 Urea nitrogen/Creatinine [Mass ratio] 12.3 mg/mg - [facility] Basic Metabolic Profile (BMP )on 05-16-2025 BUN/CRE 12.3 RATIO Normal - [facility] Comment on above: Performed By: #### L 100.0100, L500.2500 ####[facility] [address] [place], [address] Calcium [Mass/Vol] 9.0 mg/dL Normal 7.6-11.0 [facility] Comment on above: Performed By: #### L 100.0100, L500.2500 ####[facility] [address] [place], [address] Chloride [Moles/Vol] 100 mmol/L Normal 98-108 [facility] Comment on above: Performed By: #### L 100.0100, L500.2500 ####[facility] [address] [place], [address] CO2 [Moles/Vol] 26.6 mmol/L Normal 21.0-32.0 [facility] Comment on above: Performed By: #### L 100.0100, L500.2500 ####[facility] [address] [place], [address] Creatinine [Mass/Vol] 0.98 mg/dL Normal 0.70-1.20 [facility] Comment on above: Performed By: #### L 100.0100, L500.2500 ####[facility] [address] [place], [address] ECRCL 116.09 ml/min Normal 50-250 [facility] Comment on above: Performed By: #### L 100.0100, L500.2500 ####[facility] [address] [place], [address] GAP 10 Normal 5-15 [facility] Comment on above: Performed By: #### L 100.0100, L500.2500 ####[facility] [address] [place], [address] GFR/1.73 sq M.predicted among non-blacks MDRD (S/P/Bld) [Vol rate/Area] 94 mL/min/{1.73_m2} Normal >60 [facility] Comment on above: Result Comment: mL/m in/1.73m2 CKD-EPI Creatinine Equation (2020) Performed By: #### L 100.0100, L500.2500 ####[facility] [address] [place], [address] Glucose [Mass/Vol] 113 mg/dL High 70-99 [facility] Comment on above: Performed By: #### L 100.0100, L500.2500 ####[facility] [address] [place], [address] Potassium [Moles/Vol] 3.7 mmol/L Normal 3.3-5.1 [facility] Comment on above: Performed By: #### L 100.0100, L500.2500 ####[facility] [address] [place], [address] Sodium [Moles/Vol] 137 mmol/L Normal 133-145 [facility] Comment on above: Performed By: #### L 100.0100, L500.2500 ####[facility] [address] [place], [address] Urea nitrogen [Mass/Vol] 12 mg/dL Normal 4-19 [facility] Comment on above: Performed By: #### L 100.0100, L500.2500 ####[facility] [address] [place], [address] Basophil percentageOrdered B y: Emerson Jones on 05-16-2025 Basophils/100 WBC (Bld) 0.8 % 0-1 [facility] Brain/Head without Contrasto n 05-16-2025 Brain/Head without Contrast [facility] Imaging Services [address] [facility] [place] [address] Brain/Head without Contrast MR#: [id number] Acct: [id number] Name: DELTA CHEEK Jr. Rep #: [id number] : 1975 M 49 From: Tracy Rm nd, MD PCP: Dr. Rogelio Colvin MD Status: [facility] ER Study: Brain/Head without Contrast Date of Exam: 04/05 Exam# [id number] Ordering Dr: Emerson Jones MD EXAM: BRAIN/HEAD [...] IMPRESSION: No acute intracranial finding. Reading Location: [id number] CC: Dr. Emerson Jones MD; Dr. Rogelio Colvin MD Carpenter'S Assistant: Signed Normal [facility] CBC W/Diff, Automatedon 07-0 -2024 Absolute Lymph 1.05 X10 3/uL Normal 0.83-4.51 [facility] Comment on above: Performed By: #### L 100.0100, L500.2500 ####[facility] [address] [place], [address] Absolute Neut 4.6 X10 3/uL Normal 2.0-7.7 [facility] Comment on above: Performed By: #### L 100.0100, L500.2500 ####[facility] [address] [place], [address] Basophils/100 WBC (Bld) 0.8 % Normal 0-1 [facility] Comment on above: Performed By: #### L 100.0100, L500.2500 ####[facility] [address] [place], [address] Eosinophils/100 WBC (Bld) 1.6 % Normal 0-5 [facility] Comment on above: Performed By: #### L 100.0100, L500.2500 ####[facility] [address] [place], [address] Erythrocyte distribution width (RBC) [Ratio] 12.5 % Normal 11.6-14.6 [facility] Comment on above: Performed By: #### L 100.0100, L500.2500 ####[facility] [address] [place], [address] Hematocrit (Bld) [Volume fraction] 40.1 % Normal 40-54 [facility] Comment on above: Performed By: #### L 100.0100, L500.2500 ####[facility] [address] [place], [address] Hemoglobin (Bld) [Mass/Vol] 13.6 g/dL Normal 13.0-16.5 [facility] Comment on above: Performed By: #### L 100.0100, L500.2500 ####[facility] [address] [place], [address] IG% 0.300 Normal 0.0-0.9 [facility] Comment on above: Result Comment: IG% - Immature Granulocytes (promyelocytes, myelocytes and metamyelocytes) > 1% indicates that a LEFT SHIFT is Present. Performed By: #### L 100.0100, L500.2500 ####[facility] [address] [place], [address] Lymphocytes/100 WBC (Bld) 16.4 % Low 19-41 [facility] Comment on above: Performed By: #### L 100.0100, L500.2500 ####[facility] [address] [place], [address] MCH (RBC) [Entitic mass] 29.7 pg Normal 27.0-32.0 [facility] Comment on above: Performed By: #### L 100.0100, L500.2500 ####[facility] [address] [place], [address] MCHC (RBC) [Mass/Vol] 33.9 g/dL Normal 32-36 [facility] Comment on above: Performed By: #### L 100.0100, L500.2500 ####[facility] [address] [place], [address] MCV (RBC) [Entitic vol] 87.6 fL Normal 80-94 [facility] Comment on above: Performed By: #### L 100.0100, L500.2500 ####[facility] [address] [place], [address] Monocytes/100 WBC (Bld) 9.4 % Normal 0-10 [facility] Comment on above: Performed By: #### L 100.0100, L500.2500 ####[facility] [address] [place], [address] Neutrophils/100 WBC (Bld) 71.5 % High 47-70 [facility] Comment on above: Performed By: #### L 100.0100, L500.2500 ####[facility] [address] [place], [address] Nucleated RBC (Bld) [#/Vol] 0 10*3/uL Normal 0-5 [facility] Comment on above: Performed By: #### L 100.0100, L500.2500 ####[facility] [address] [place], [address] Platelet mean volume (Bld) [Entitic vol] 8.6 fL Normal 6.2-12.0 [facility] Comment on above: Performed By: #### L 100.0100, L500.2500 ####[facility] [address] [place], [address] Platelets (Bld) [#/Vol] 237 10*3/uL Normal 150-450 [facility] [facility] Comment on above: Performed By: #### L 100.0100, L500.2500 ####[facility] [address] [place], [address] RBC (Bld) [#/Vol] 4.58 10*6/uL Low 4.6-6.2 [facility] Comment on above: Performed By: #### L 100.0100, L500.2500 ####[facility] [address] [place], [address] RDW SD 39.8 fl Normal 35.1-43.9 [facility] Comment on above: Performed By: #### L 100.0100, L500.2500 ####[facility] [address] [place], [address] WBC (Bld) [#/Vol] 6.4 10*3/uL Normal 4.4-11.0 [facility] Comment on above: Performed By: #### L 100.0100, L500.2500 ####[facility] [address] [facility] [place], [address] Carbon dioxide, total [Moles /volume] in Central venous bloodOrdered By: Emerson Jones on 05-16-2025 CO2 [Moles/Vol] 26.6 mmol/L 21.0-32.0 [facility] Chloride assayOrdered By: Yosi Jones on 05-16-2025 Chloride [Moles/Vol] 100 mmol/L 98-108 [facility] Emergency Department Summary on 05-16-2025 Emergency Department Summary [facility] Medical Records Department [address] [place] [address] Emergency Department Summary 05/16/25 MR#: [id number] Acct: [id number] Name: DELTA CHEEK Rep #: [id number] : 1975 49 From: Emerson Jones MD [...] no deformity. Normal range of motion. Normal heddler tier strength. Normal dorsi plantarflexion. Neurologically he is awake and alert. Answer questions fol (more content not included)... Normal [facility] Eosinophil percentageOrdered By: Emerson Jones on 05-16-2025 Eosinophils/100 WBC (Bld) 1.6 % 0-5 [facility] Erythrocyte distribution wid th ratioOrdered By: Emerson Jones on 05-16-2025 Erythrocyte distribution width (RBC) [Ratio] 12.5 % 11.6-14.6 [facility] Erythrocyte distribution wid th standard deviationOrdered By: Emerson Jones on 05-16-2025 Erythrocyte distribution width (RBC) [Ratio] 39.8 fl 35.1-43.9 [facility] Glomerular filtration rate ( GFR) estimation/1.73 sq m using serum, plasma, or whole bOrdered By: Emerson Jones on 05-16-2025 GFR/1.73 sq M.predicted among non-blacks MDRD (S/P/Bld) [Vol rate/Area] 94 mL/min/{1.73_m2} >60 [facility] Comment on above: mL/min/1.73m2 CKD-EP I Creatinine Equation (2020) Hematocrit Auto (Bld) [Volum e fraction]Ordered By: Emerson Jones on 05-16-2025 Hematocrit (Bld) [Volume fraction] 40.1 % 40-54 [facility] Hemoglobin measurementOrdere d By: Emerson Jones on 05-16-2025 Hemoglobin (Bld) [Mass/Vol] 13.6 g/dL 13.0-16.5 [facility] Immature granulocytes/100 WB C Auto (Bld)Ordered By: Emerson Jones on 05-16-2025 Immature granulocytes/100 WBC (Bld) 0.300 % 0.0-0.9 [facility] Comment on above: IG% - Immature Granu locytes (promyelocytes, myelocytes and metamyelocytes) > 1% indicates that a LEFT SHIFT is Present. MCV (mean corpuscular volume ) determinationOrdered By: Emerson Jones on 05-16-2025 MCV (RBC) [Entitic vol] 87.6 fL 80-94 [facility] Mean corpuscular hemoglobin (MCH) determinationOrdered By: Emerson Jones on 05-16-2025 MCH (RBC) [Entitic mass] 29.7 pg 27.0-32.0 [facility] Mean corpuscular hemoglobin concentration (MCHC) determinationOrdered By: Emerson Jones on 05-16-2025 MCHC (RBC) [Mass/Vol] 33.9 g/dL 32-36 [facility] Mean platelet volume determi nationOrdered By: Emerson Jones on 05-16-2025 Platelet mean volume (Bld) [Entitic vol] 8.6 fL 6.2-12.0 [facility] Monocyte percentageOrdered B y: Emerson Jones on 05-16-2025 Monocytes/100 WBC (Bld) 9.4 % 0-10 [facility] Neutrophil percentageOrdered By: Emerson Jones on 05-16-2025 Neutrophils/100 WBC (Bld) 71.5 % High 47-70 [facility] Nucleated red blood cell per centageOrdered By: Emerson Jones on 05-16-2025 Nucleated RBC/100 WBC (Bld) [Ratio] 0 % 0-5 [facility] Platelet countOrdered By: Yosi Jones on 05-16-2025 Platelets (Bld) [#/Vol] 237 10*3/uL 150-450 [facility] Potassium measurement (mass/ volume)Ordered By: Emerson Jones on 05-16-2025 Potassium (Unsp spec) [Mass/Vol] 3.7 mmol/L 3.3-5.1 [facility] RBC Auto (Bld) [#/Vol]Ordere d By: Emerson Jones on 05-16-2025 RBC (Bld) [#/Vol] 4.58 10*6/uL Low 4.6-6.2 [facility] Serum creatinine measurement (mass/volume)Ordered By: Emerson Jones on 05-16-2025 Creatinine [Mass/Vol] 0.98 mg/dL 0.70-1.20 [facility] Serum glucose measurement (m ass/volume)Ordered By: Emerson Jones on 05-16-2025 Glucose [Mass/Vol] 113 mg/dL High 70-99 [facility] Serum or plasma calcium rosangela urement (mass/volume)Ordered By: Emerson Jones on 05-16-2025 Calcium [Mass/Vol] 9.0 mg/dL 7.6-11.0 [facility] Serum or plasma urea nitroge n measurement (mass/volume)Ordered By: Emerson Jones on 05-16-2025 Urea nitrogen [Mass/Vol] 12 mg/dL 4-19 [facility] Sodium levelOrdered By: Emerson Jones on 05-16-2025 Sodium [Moles/Vol] 137 mmol/L 133-145 [facility] Spine Cervical without Contr ason 05-16-2025 Spine Cervical without Contras [facility] Imaging Services [address] [place], [place] [id number] Spine Cervical without Contras MR#: [id number] Acct: [id number] Name: DELTA CHEEK Jr. Rep #: [id number] : 1975 M 49 From: Tracy Rm nd, MD PCP: Dr. Rogelio Colvin MD Status: REG ER Study: Spine Cervical without Contras Date of Exam: 0 05/16/25 Exam# [id number] Ordering Dr: Emerson Jones MD PROCEDURE: SPINE [...] ACUTE CERVICAL FRACTURE. DEGENERATIVE CHANGES. Reading Location: [facility] CC: Dr. Emerson Jones MD; Dr. Rogelio Colvin MD Carpenter'S Assistant: Signed Normal [facility] White blood cell (WBC) count Ordered By: Emerson Jones on 05-16-2025 WBC (Bld) [#/Vol] 6.4 10*3/uL 4.4-11.0 [facility] Brain/Head without Contrasto n 04-16-2025 Brain/Head without Contrast [facility] Imaging Services [address] [place] [address] Brain/Head without Contrast MR#: [id number] Acct: [id number] Name: DELTA CHEEK Jr. Rep #: [id number] : 1975 M 49 From: Delta Prakash PCP: Dr. Rogelio Colvin MD Status: REG ER Study: Brain/Head without Contrast Date of Exam: 04/05 Exam# [id number] Ordering Dr: Emerson Jones MD PROCEDURE: BRAIN/HEAD [...] IMPRESSION: No acute intracranial abnormality. Reading Location: [facility] CC: Dr. Emerson Jones MD; Dr. Rogelio Colvin MD Carpenter'S Assistant: Signed Normal [facility] Emergency Department Summary on 04-16-2025 Emergency Department Summary [facility] Medical Records Department [address] [place] [address] Emergency Department Summary 04/16/25 MR#: [id number] Acct: [id number] Name: DELTA CHEEK Jr. Rep #: [id number] : 1975 49 From: Emerson Jones MD [...] similar symptoms: Yes Recent Illness/Hospitaliz ation: Yes [facility] Medical History Wears glasses Marijuana use [...] normal respirato (more content not included)... Normal [facility] Orthopedic Visit Reporton Orthopedic Visit Report [facility] [address] [place], [place] [id number] OFFICE VISIT Date of Service: 03/20/25 MR#: [id number] Acct: [id number] Name: DELTA CHEEK Jr. Rep #: [id number] : 1975 Provider: Dr. Dung Aguirre MD Age/Sex: 49/M Location: [facility] Status: Signed with Addenda ADDENDUM by Dr. [...] by me, Dr. Dung Aguirre MD 03/20/25 2927. Part of today???s visit was documented by [...] Flores. 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 Normal [facility] MR/BMS.BVLenny 03-10-2025 MR/BMS.BVS [facility] Vascular Surgery [address] [place] [address] OFFICE VISIT Date of Service: 03/10/25 MR#: [id number] Acct: [id number] Name: DELTA CHEEK Jr. Rep #: [id number] : 1975 Provider: JORGE A Schmitt Age/Sex: 49/M Location: [facility] Status: Signed Intake Vital Signs [...] 3-4 WK FU Chief Complaint: Follow Up Forensics Analyst Required: No Is patient in pain?: Yes [...] no ac (more content not included)... Normal [facility] Spine Lumbar (Routine)on Spine Lumbar (Routine) [facility] Imaging Services [address] [place] [address] Spine Lumbar (Routine) MR#: [id number] Acct: [id number] Name: DELTA CHEEK Gilberto Chan Rep #: [id number] : 1975 M 49 From: Eugenio Euceda MD PCP: Dr. Rogelio Colvin MD Status: REG CLI Study: Spine Lumbar (Routine) Date of Exam: 03/09/25 Exam# [id number] Ordering Dr: Nadia Brandt PROCEDURE: SPINE LUMBAR [...] JORGE A Bauman; Dr. Rogelio Colvin MD Carpenter'S Assistant: Signed Normal [facility] Activated partial thrombopla stin time (aPTT) in platelet poor plasma by coagulation aOrdered By: Michelle Mccall on 03-04-2025 aPTT Coag (PPP) [Time] 63.9 s High 24.1-36.2 [facility] Partial Thromboplast Timeon 03-04-2025 aPTT Coag (Bld) [Time] 63.9 s High 24.1-36.2 [facility] Comment on above: Order Comment: Comme nts: heparin gtt Performed By: #### L 703.7307 #### [facility] Laboratory [address] [place], [address] Absolute lymphocyte countOrd ered By: Michelle Mccall on 03-03-2025 Lymphocytes Auto (Unsp spec) [#/Vol] 1.31 10*3/uL 0.83-4.51 [facility] Absolute neutrophil countOrd ered By: Michelle Mccall on 03-03-2025 Neutrophils (Bld) [#/Vol] 2.1 10*3/uL 2.0-7.7 [facility] Anion gap in Serum or Plasma Ordered By: Michelle Mccall on 03-03-2025 Anion gap [Moles/Vol] 10 mmol/L 5- [facility] Automated lymphocyte count a s percentage of total leukocytesOrdered By: Michelle Mccall on 03-03-2025 Lymphocytes/100 WBC Auto (Unsp spec) 33.1 % [facility] BUN/creatinine ratioOrdered By: Michelle Mccall on 03-03-2025 Urea nitrogen/Creatinine [Mass ratio] 13.1 mg/mg - [facility] Basic Metabolic Profile (BMP )on 03-03-2025 BUN/CRE 13.1 RATIO Normal 08-31 [facility] Comment on above: Performed By: #### L 500.2500, L100.0500 #### [facility] Laboratory [address] [place], [address] Calcium [Mass/Vol] 9.1 mg/dL Normal 7.6-11.0 [facility] Comment on above: Performed By: #### L 500.2500, L100.0500 #### [facility] [address] [place], [address] Chloride [Moles/Vol] 104 mmol/L Normal 98-108 [facility] Comment on above: Performed By: #### L 500.2500, L100.0500 #### [facility] [address] [place], [address] CO2 [Moles/Vol] 26.1 mmol/L Normal 21.0-32.0 [facility] Comment on above: Performed By: #### L 500.2500, L100.0500 #### [facility] [address] [place], [address] Creatinine [Mass/Vol] 0.94 mg/dL Normal 0.70-1.20 [facility] Comment on above: Performed By: #### L 500.2500, L100.0500 #### [facility] [address] [place], [address] ECRCL 125.08 ml/min Normal 50-250 [facility] Comment on above: Performed By: #### L 500.2500, L100.0500 #### [facility] [address] [place], [address] GAP 10 Normal 5-15 [facility] Comment on above: Performed By: #### L 500.2500, L100.0500 #### [facility] [address] [place], [address] GFR/1.73 sq M.predicted among non-blacks MDRD (S/P/Bld) [Vol rate/Area] 98 mL/min/{1.73_m2} Normal >60 [facility] Comment on above: Result Comment: mL/m in/1.73m2 CKD-EPI Creatinine Equation (2020) Performed By: #### L 500.2500, L100.0500 #### [facility] [address] [place], [address] Glucose [Mass/Vol] 99 mg/dL Normal 70-99 [facility] Comment on above: Performed By: #### L 500.2500, L100.0500 #### [facility] [address] [place], [address] Potassium [Moles/Vol] 3.9 mmol/L Normal 3.3-5.1 [facility] Comment on above: Performed By: #### L 500.2500, L100.0500 #### [facility] [address] [place], [address] Sodium [Moles/Vol] 140 mmol/L Normal 133-145 [facility] Comment on above: Performed By: #### L 500.2500, L100.0500 #### [facility] [address] [place], [address] Urea nitrogen [Mass/Vol] 12 mg/dL Normal 4-19 [facility] Comment on above: Performed By: #### L 500.2500, L100.0500 #### [facility] [address] [place], [address] Basophil percentageOrdered B y: Michelle Stefany on 03-03-2025 Basophils/100 WBC (Bld) 1.0 % 0-1 [facility] CBC W/Diff, Automatedon 02-11 Absolute Lymph 1.31 X10 3/uL Normal 0.83-4.51 [facility] Comment on above: Performed By: #### L 500.2500, L100.0500 #### [facility] [address] [place], [address] Absolute Neut 2.1 X10 3/uL Normal 2.0-7.7 [facility] Comment on above: Performed By: #### L 500.2500, L100.0500 #### [facility] [address] [place], [address] Basophils/100 WBC (Bld) 1.0 % Normal 0-1 [facility] Comment on above: Performed By: #### L 500.2500, L100.0500 #### [facility] [address] [place], [address] Eosinophils/100 WBC (Bld) 1.5 % Normal 0-5 [facility] Comment on above: Performed By: #### L 500.2500, L100.0500 #### [facility] [address] [place], [address] Erythrocyte distribution width (RBC) [Ratio] 12.3 % Normal 11.6-14.6 [facility] Comment on above: Performed By: #### L 500.2500, L100.0500 #### [facility] [address] [place], [address] Hematocrit (Bld) [Volume fraction] 38.6 % Low 40-54 [facility] Comment on above: Performed By: #### L 500.2500, L100.0500 #### [facility] [address] [place], [address] Hemoglobin (Bld) [Mass/Vol] 13.0 g/dL Normal 13.0-16.5 [facility] Comment on above: Performed By: #### L 500.2500, L100.0500 #### [facility] [address] [place], [address] IG% 0.300 Normal 0.0-0.9 [facility] Comment on above: Result Comment: IG% - Immature Granulocytes (promyelocytes, myelocytes and metamyelocytes) > 1% indicates that a LEFT SHIFT is Present. Performed By: #### L 500.2500, L100.0500 #### [facility] [address] [place], [address] Lymphocytes/100 WBC (Bld) 33.1 % Normal 19-41 [facility] Comment on above: Performed By: #### L 500.2500, L100.0500 #### [facility] [address] [place], [address] MCH (RBC) [Entitic mass] 29.3 pg Normal 27.0-32.0 [facility] Comment on above: Performed By: #### L 500.2500, L100.0500 #### [facility] [address] [place], [address] MCHC (RBC) [Mass/Vol] 33.7 g/dL Normal 32-36 [facility] Comment on above: Performed By: #### L 500.2500, L100.0500 #### [facility] [address] [place], [address] MCV (RBC) [Entitic vol] 87.1 fL Normal 80-94 [facility] Comment on above: Performed By: #### L 500.2500, L100.0500 #### [facility] [address] [place], [address] Monocytes/100 WBC (Bld) 10.9 % High 0-10 [facility] Comment on above: Performed By: #### L 500.2500, L100.0500 #### [facility] [address] [place], [address] Neutrophils/100 WBC (Bld) 53.2 % Normal 47-70 [facility] Comment on above: Performed By: #### L 500.2500, L100.0500 #### [facility] [address] [place], [address] Nucleated RBC (Bld) [#/Vol] 0 10*3/uL Normal 0-5 [facility] Comment on above: Performed By: #### L 500.2500, L100.0500 #### [facility] [address] [place], [address] Platelet mean volume (Bld) [Entitic vol] 9.1 fL Normal 6.2-12.0 [facility] Comment on above: Performed By: #### L 500.2500, L100.0500 #### [facility] [address] [place], [address] Platelets (Bld) [#/Vol] 210 10*3/uL Normal 150-450 [facility] Comment on above: Performed By: #### L 500.2500, L100.0500 #### [facility] [address] [place], [address] RBC (Bld) [#/Vol] 4.43 10*6/uL Low 4.6-6.2 [facility] Comment on above: Performed By: #### L 500.2500, L100.0500 #### [facility] [address] [place], [address] RDW SD 39.3 fl Normal 35.1-43.9 [facility] Comment on above: Performed By: #### L 500.2500, L100.0500 #### [facility] [address] [place], [address] WBC (Bld) [#/Vol] 4.0 10*3/uL Low 4.4-11.0 [facility] Comment on above: Performed By: #### L 500.2500, L100.0500 #### [facility] [address] [facility] [place], [address] Carbon dioxide, total [Moles /volume] in Central venous bloodOrdered By: Michelle Mccall on 03-03-2025 CO2 [Moles/Vol] 26.1 mmol/L 21.0-32.0 [facility] Chloride assayOrdered By: Bonifacio Mccall on 03-03-2025 Chloride [Moles/Vol] 104 mmol/L 98-108 [facility] Eosinophil percentageOrdered By: Michelle Mccall on 03-03-2025 Eosinophils/100 WBC (Bld) 1.5 % 0-5 [facility] Erythrocyte distribution wid th ratioOrdered By: Michelledebra Mccall on 03-03-2025 Erythrocyte distribution width (RBC) [Ratio] 12.3 % 11.6-14.6 [facility] Erythrocyte distribution wid th standard deviationOrdered By: Michelle Mccall on 03-03-2025 Erythrocyte distribution width (RBC) [Ratio] 39.3 fl 35.1-43.9 [facility] Glomerular filtration rate ( GFR) estimation/1.73 sq m using serum, plasma, or whole bOrdered By: Michelle Mccall on 03-03-2025 GFR/1.73 sq M.predicted among non-blacks MDRD (S/P/Bld) [Vol rate/Area] 98 mL/min/{1.73_m2} >60 [facility] Comment on above: mL/min/1.73m2 CKD-EP I Creatinine Equation (2020) Hematocrit Auto (Bld) [Volum e fraction]Ordered By: Michelle Mccall on 03-03-2025 Hematocrit (Bld) [Volume fraction] 38.6 % Low 40-54 [facility] Hemoglobin measurementOrdere d By: Michelle Mccall on 03-03-2025 Hemoglobin (Bld) [Mass/Vol] 13.0 g/dL 13.0-16.5 [facility] Immature granulocytes/100 WB C Auto (Bld)Ordered By: Michelle Hidalgoey on 03-03-2025 Immature granulocytes/100 WBC (Bld) 0.300 % 0.0-0.9 [facility] Comment on above: IG% - Immature Granu locytes (promyelocytes, myelocytes and metamyelocytes) > 1% indicates that a LEFT SHIFT is Present. MCV (mean corpuscular volume ) determinationOrdered By: Michelle Hidalgoey on 03-03-2025 MCV (RBC) [Entitic vol] 87.1 fL 80-94 [facility] MR/POSTOP.ANEon 03-03-2025 MR/POSTOP.ANE [facility] Medical Records Department [address] [place] [address] Anesthesia Postop Eval I 03/03/25 1305 MR#: [id number] Acct: [id number] Name: DELTA CHEEK Jr. Rep #: [id number] : 1975 49 From: Hossein Cheek CRNA PCP: Dr. Rogelio Colvin MD Status:ADM IN Y Race: C Location: [place] [address] Anesthesia: Postop Eval I Current Vital Signs [...] Eval 1 completed: Yes 03/03/25 1306 Date Hosseinozzie Zeeley HEAD BOOKKEEPER Cosigner Signature: Date CC: Signed Normal [facility] MR/[id number] 03-03-2025 MR/POSTOPAN2 [facility] Medical Records Department [address] [place] [address] Anesthesia Postop Eval II 03/03/252017 MR#: [id number] Acct: [id number] Name: DELTA CHEEK Gilberto Chan Rep #: [id number] : 1975 49 From: Andrew Carranza MD PCP: Dr. Rogelio Colvin MD Status:ADM IN Y Race: C Location: [place] [address] Anesthesia Postop Eval I Sum Postop Eval Completion status Anesthesia document: Postop Eval 1 completed: Yes Anesthesia Postop Eval I Summary Anesthesia Postop Eval I Summary: Anesthesia Postop Eval I: Assessment Summary Airway patent Yes 03/03/25 13:05 HEAD [email or web address] Spontaneous unlabored Yes 03/03/25 13:05 HEAD [email or web address].PKEL respirations Mental status Awake,Calm 03/03/25 13:05 HEAD [email or web address].PKEL nausea No 03/03/25 13:05 HEAD [email or web address] Vomiting No 03/03/25 13:05 HEAD [email or web address].PKEL Anesthesia Postop Eval I: Fluid Summary Crystalloid volume administer 1,100 03/03/25 13:05 HEAD [email or web address].PKEL (ml) Colloids volume administered ( ml) Blood Product volume administered (ml) Total IV fluid infused 1,100 03/03/25 13:05 HEAD [email or web address].PKEL Anesthesia Postop Eval I: Summary Notes Anesthesia Complication No 03/03/25 13:05 HEAD [email or web address] Anesthesia Complication Comment: Post-operative progress note Anesthesia: Postop Eval II Evaluation Mental status: Awake and Calm Pain Level: 1 nausea: No Vomiting: No Complications Anesthesia Complication: No 03/03/252017 Date Andrew Carranza MD Cosigner Signature: Date CC: Signed Normal [facility] Mean corpuscular hemoglobin (MCH) determinationOrdered By: Michelle Mccall on 03-03-2025 MCH (RBC) [Entitic mass] 29.3 pg 27.0-32.0 [facility] Mean corpuscular hemoglobin concentration (MCHC) determinationOrdered By: Michelle Mccall on 03-03-2025 MCHC (RBC) [Mass/Vol] 33.7 g/dL 32-36 [facility] Mean platelet volume determi nationOrdered By: Michelle Mccall on 03-03-2025 Platelet mean volume (Bld) [Entitic vol] 9.1 fL 6.2-12.0 [facility] Monocyte percentageOrdered B y: Michelle Mccall on 03-03-2025 Monocytes/100 WBC (Bld) 10.9 % High 0-10 [facility] Neutrophil percentageOrdered By: [facility] Stefany on 03-03-2025 Neutrophils/100 WBC (Bld) 53.2 % 47-70 [facility] Nucleated red blood cell per centageOrdered By: Michelle Mccall on 03-03-2025 Nucleated RBC/100 WBC (Bld) [Ratio] 0 % 0-5 [facility] Operative Reporton Operative Report [facility] Medical Records Department [address] [place] [address] Operative Report 03/03/25 1232 MR#: [id number] Acct: [id number] Name: DELTA CHEEK Jr. Rep #: [id number] : 1975 49 From: Michelle Mccall MD PCP: Dr. Rogelio Colvin MD Status:ADM IN Location: [facility] [id number] Operative Report (Standard) Operative Information Date of Procedure: 03/03/25 Pre-Operative Diagnosis: obstruction left iliac vein Post-Operative Diagnosis: same Surgery/Procedure Performed: venogram IVC IVUS IVC, left common iliac vein, left external iliac vein angioplasty left external iliac vein systems security consultant: No Type of Anesthesia: General RN Documented [...] site the patient was taken to the [facility] where he was placed under general anesthesia. [...] the micropuncture sheath exchanged for a 10 Turkish sheath. Through the 10 Turkish sheath the Bentson wire was navigated through [...] significant thrombus or stenosis. Next a [place] 16 x 40 angioplasty balloon was advanced centered on the external iliac vein stenosis and inflated for multiple inflations. This was then withdrawn and a [place] XX[place] 18 x 40 angioplasty balloon was [...] PCU fo (more content not included)... Normal [facility] Partial Thromboplast Timeon 03-03-2025 aPTT Coag (Bld) [Time] 44.6 s High 24.1-36.2 [facility] Comment on above: Performed By: #### L 500.2500, L100.0500 #### [facility] Laboratory [address] [place], [address] aPTT Coag (Bld) [Time] 49.4 s High 24.1-36.2 [facility] Comment on above: Order Comment: Comme nts: heparin gtt Performed By: #### L 300.6870 #### [facility] [address] [place], [address] aPTT Coag (Bld) [Time] 42.5 s High 24.1-36.2 [facility] Comment on above: Performed By: #### L 300.4310 ####[facility] [address] [place], [place], [id number] aPTT Coag (Bld) [Time] 43.8 s High 24.1-36.2 [facility] Comment on above: Order Comment: Comme nts: heparin gtt Performed By: #### L 300.4310 #### [facility] Laboratory [address] [place], [place], [id number] Platelet countOrdered By: Bonifacio Mccall on 03-03-2025 Platelets (Bld) [#/Vol] 210 10*3/uL 150-450 [facility] Potassium measurement (mass/ volume)Ordered By: Michelle Mccall on 03-03-2025 Potassium (Unsp spec) [Mass/Vol] 3.9 mmol/L 3.3-5.1 [facility] RBC Auto (Bld) [#/Vol]Ordere d By: Michelle Mccall on 03-03-2025 RBC (Bld) [#/Vol] 4.43 10*6/uL Low 4.6-6.2 [facility] Serum creatinine measurement (mass/volume)Ordered By: Michelle Mccall on 03-03-2025 Creatinine [Mass/Vol] 0.94 mg/dL 0.70-1.20 [facility] Serum glucose measurement (m ass/volume)Ordered By: Michelle Mccall on 03-03-2025 Glucose [Mass/Vol] 99 mg/dL 70-99 [facility] Serum or plasma calcium rosangela urement (mass/volume)Ordered By: Michelle Mccall on 03-03-2025 Calcium [Mass/Vol] 9.1 mg/dL 7.6-11.0 [facility] Serum or plasma urea nitroge n measurement (mass/volume)Ordered By: Michelle Mccall on 03-03-2025 Urea nitrogen [Mass/Vol] 12 mg/dL 4-19 [facility] Sodium levelOrdered By: Michelle Mccall on 03-03-2025 Sodium [Moles/Vol] 140 mmol/L 133-145 [facility] White blood cell (WBC) count Ordered By: Michelle Mccall on 03-03-2025 WBC (Bld) [#/Vol] 4.0 10*3/uL Low 4.4-11.0 [facility] International normalized rat io (INR) calculationOrdered By: Michelle Mccall on 03-02-2025 INR Coag (Bld) [Relative time] 1.0 {INR} [facility] Partial Thromboplast Timeon 03-02-2025 aPTT Coag (Bld) [Time] 31.1 s Normal 24.1-36.2 [facility] Comment on above: Performed By: #### L 500.2500, L100.0500 #### [facility] Laboratory [address] [place], [address] Prothrombin Time w/INRon INR Coag (PPP) [Relative time] 1.0 {INR} Normal [facility] Comment on above: Performed By: #### L 300.4310 #### [facility] [address] [place], [address] PT Coag (PPP) [Time] 13.6 s Normal 11.7-14.9 [facility] Comment on above: Performed By: #### L 300.4310 #### [facility] [address] [place], [address] Prothrombin timeOrdered By: Michelle Mccall on 03-02-2025 PT Coag (PPP) [Time] 13.6 s 11.7-14.9 [facility] MR/BMS.BVSon 02-16-2025 MR/BMS.BVS [facility] Vascular Surgery [address] [place] [address] OFFICE VISIT Date of Service: 02/16/25 MR#: [id number] Acct: [id number] Name: DELTA CHEEK Jr. Rep #: [id number] : 1975 Provider: Dr. Michelle Mccall MD Age/Sex: 49/M Location: BMS.BVS Status: Signed Intake [...] movements, No (more content not included)... Normal [facility] Absolute lymphocyte countOrd ered By: Michelle Victor on 02-09-2025 Lymphocytes Auto (Unsp spec) [#/Vol] 1.61 10*3/uL 0.83-4.51 [facility] Absolute neutrophil countOrd ered By: Michelle Victor on 02-09-2025 Neutrophils (Bld) [#/Vol] 3.7 10*3/uL 2.0-7.7 [facility] Activated partial thrombopla stin time (aPTT) in platelet poor plasma by coagulation aOrdered By: Michelle Victor on 02-09-2025 aPTT Coag (PPP) [Time] 30.6 s 24.1-36.2 [facility] Anion gap in Serum or Plasma Ordered By: Michelle Victor on 02-09-2025 Anion gap [Moles/Vol] 18 mmol/L High 5-15 [facility] Automated lymphocyte count a s percentage of total leukocytesOrdered By: Michelle Victor on 02-09-2025 Lymphocytes/100 WBC Auto (Unsp spec) 26.4 % 19-41 [facility] BUN/creatinine ratioOrdered By: Michelle Victor on 02-09-2025 Urea nitrogen/Creatinine [Mass ratio] 15.1 mg/mg 10- [facility] Basic Metabolic Profile (BMP )on 02-09-2025 BUN/CRE 15.1 RATIO Normal - [facility] Comment on above: Performed By: #### L 300.4310 #### [facility] Laboratory [address] [place], [address] Calcium [Mass/Vol] 9.4 mg/dL Normal 7.6-11.0 [facility] Comment on above: Performed By: #### L 300.4310 #### [facility] [address] [place], [address] Chloride [Moles/Vol] 102 mmol/L Normal 98-108 [facility] Comment on above: Performed By: #### L 300.4310 #### [facility] Laboratory [address] [place], [address] CO2 [Moles/Vol] 17.6 mmol/L Low 21.0-32.0 [facility] Comment on above: Performed By: #### L 300.4310 #### [facility] Laboratory [address] [place], [address] Creatinine [Mass/Vol] 0.96 mg/dL Normal 0.70-1.20 [facility] Comment on above: Performed By: #### L 300.4310 #### [facility] Laboratory [address] [place], [address] ECRCL 123.08 ml/min Normal 50-250 [facility] Comment on above: Performed By: #### L 300.4310 #### [facility] Laboratory [address] [place], [address] GAP 18 High 5-15 [facility] Comment on above: Performed By: #### L 300.4310 #### [facility] Laboratory [address] [place], [address] GFR/1.73 sq M.predicted among non-blacks MDRD (S/P/Bld) [Vol rate/Area] 95 mL/min/{1.73_m2} Normal >60 [facility] Comment on above: Result Comment: mL/m in/1.73m2 CKD-EPI Creatinine Equation (2020) Performed By: #### L 300.4310 #### [facility] Laboratory [address] [place], [address] Glucose [Mass/Vol] 84 mg/dL Normal 70-99 [facility] Comment on above: Performed By: #### L 300.4310 #### [facility] [address] [place], [address] Potassium [Moles/Vol] 4.3 mmol/L Normal 3.3-5.1 [facility] Comment on above: Result Comment: Hemo lysis present, Results??could be affected. ?? Performed By: #### L 300.4310 #### [facility] [address] [place], [address] Sodium [Moles/Vol] 138 mmol/L Normal 133-145 [facility] Comment on above: Performed By: #### L 300.4310 #### [facility] [address] [place], [address] Urea nitrogen [Mass/Vol] 15 mg/dL Normal 4-19 [facility] Comment on above: Performed By: #### L 300.4310 #### [facility] [address] [place], [address] Basophil percentageOrdered B y: Michelle Victor on 02-09-2025 Basophils/100 WBC (Bld) 1.0 % 0-1 [facility] CBC W/Diff, Automatedon - Absolute Lymph 1.61 X10 3/uL Normal 0.83-4.51 [facility] Comment on above: Performed By: #### L 300.4310 #### [facility] Laboratory [address] [place], [address] Absolute Neut 3.7 X10 3/uL Normal 2.0-7.7 [facility] Comment on above: Performed By: #### L 300.4310 #### [facility] [address] [place], [address] Basophils/100 WBC (Bld) 1.0 % Normal 0-1 [facility] Comment on above: Performed By: #### L 300.4310 #### [facility] [address] [place], [address] Eosinophils/100 WBC (Bld) 1.0 % Normal 0-5 [facility] Comment on above: Performed By: #### L 300.4310 #### [facility] Laboratory [address] [place], [address] Erythrocyte distribution width (RBC) [Ratio] 12.4 % Normal 11.6-14.6 [facility] Comment on above: Performed By: #### L 300.4310 #### [facility] [address] [place], [address] Hematocrit (Bld) [Volume fraction] 42.9 % Normal 40-54 [facility] Comment on above: Performed By: #### L 300.4310 #### [facility] [address] [place], [address] Hemoglobin (Bld) [Mass/Vol] 14.2 g/dL Normal 13.0-16.5 [facility] Comment on above: Performed By: #### L 300.4310 #### [facility] [address] [place], [address] IG% 0.300 Normal 0.0-0.9 [facility] Comment on above: Result Comment: IG% - Immature Granulocytes (promyelocytes, myelocytes and metamyelocytes) > 1% indicates that a LEFT SHIFT is Present. Performed By: #### L 300.4310 #### [facility] [address] [place], [address] Lymphocytes/100 WBC (Bld) 26.4 % Normal 19-41 [facility] Comment on above: Performed By: #### L 300.4310 #### [facility] Laboratory [address] [place], [address] MCH (RBC) [Entitic mass] 29.5 pg Normal 27.0-32.0 [facility] Comment on above: Performed By: #### L 300.4310 #### [facility] [address] [place], [address] MCHC (RBC) [Mass/Vol] 33.1 g/dL Normal 32-36 [facility] Comment on above: Performed By: #### L 300.4310 #### [facility] [address] [place], [address] MCV (RBC) [Entitic vol] 89.2 fL Normal 80-94 [facility] Comment on above: Performed By: #### L 300.4310 #### [facility] [address] [place], [address] Monocytes/100 WBC (Bld) 10.2 % High 0-10 [facility] Comment on above: Performed By: #### L 300.4310 #### [facility] [address] [place], [address] Neutrophils/100 WBC (Bld) 61.1 % Normal 47-70 [facility] Comment on above: Performed By: #### L 300.4310 #### [facility] [address] [place], [address] Nucleated RBC (Bld) [#/Vol] 0 10*3/uL Normal 0-5 [facility] Comment on above: Performed By: #### L 300.4310 #### [facility] Laboratory [address] [place], [address] Platelet mean volume (Bld) [Entitic vol] 9.2 fL Normal 6.2-12.0 [facility] Comment on above: Performed By: #### L 300.4310 #### [facility] Laboratory [address] [place], [address] Platelets (Bld) [#/Vol] 307 10*3/uL Normal 150-450 [facility] Comment on above: Performed By: #### L 300.4310 #### [facility] Laboratory [address] [place], [address] RBC (Bld) [#/Vol] 4.81 10*6/uL Normal 4.6-6.2 [facility] Comment on above: Performed By: #### L 300.4310 #### [facility] Laboratory [address] [place], [address] RDW SD 40.6 fl Normal 35.1-43.9 [facility] Comment on above: Performed By: #### L 300.4310 #### [facility] Laboratory [address] [facility] [place], [address] WBC (Bld) [#/Vol] 6.1 10*3/uL Normal 4.4-11.0 [facility] Comment on above: Performed By: #### L 300.4310 #### [facility] Laboratory [address] [facility] [place], [address] Carbon dioxide, total [Moles /volume] in Central venous bloodOrdered By: Michelle Victor on 02-09-2025 CO2 [Moles/Vol] 17.6 mmol/L Low 21.0-32.0 [facility] Chloride assayOrdered By: Bonifacio Victor on 02-09-2025 Chloride [Moles/Vol] 102 mmol/L 98-108 [facility] Emergency Department Summary on 02-09-2025 Emergency Department Summary [facility] Medical Records Department [address] [place] [address] Emergency Department Summary 02/09/25 MR#: [id number] Acct: [id number] Name: DELTA CHEEK Jr. Rep #: [id number] : 1975 49 From: Michelle Victor DO [...] symptoms: Yes and [facility] Medical History Wears glasses Marijuana use [...] bony crep (more content not included)... Normal [facility] Eosinophil percentageOrdered By: Michelle Victor on 02-09-2025 Eosinophils/100 WBC (Bld) 1.0 % 0-5 [facility] Erythrocyte distribution wid th ratioOrdered By: Michelle Victor on 02-09-2025 Erythrocyte distribution width (RBC) [Ratio] 12.4 % 11.6-14.6 [facility] Erythrocyte distribution wid th standard deviationOrdered By: Michelle Victor on 02-09-2025 Erythrocyte distribution width (RBC) [Entitic vol] 40.6 fL 35.1-43.9 [facility] Erythrocyte distribution width (RBC) [Ratio] 40.6 fl 35.1-43.9 [facility] Estimation of creatinine obed aranceOrdered By: Michelle Victor on 02-09-2025 Estimated Creatinine Clearance Calc 123.08 ml/min 50-250 [facility] GFR/1.73 sq M.predicted xander g non-blacks MDRD (S/P/Bld) [Vol rate/Area]Ordered By: Michelle Victor on 02-09-2025 Estimated GFR (MDRD) Non-Af Amer 95 >60 [facility] Comment on above: mL/min/1.73m2 CKD-EP I Creatinine Equation (2020) Glomerular filtration rate ( GFR) estimation/1.73 sq m using serum, plasma, or whole bOrdered By: Michelle Victor on 02-09-2025 GFR/1.73 sq M.predicted among non-blacks MDRD (S/P/Bld) [Vol rate/Area] 95 mL/min/{1.73_m2} >60 [facility] Comment on above: mL/min/1.73m2 CKD-EP I Creatinine Equation (2020) Hematocrit Auto (Bld) [Volum e fraction]Ordered By: Michelle Victor on 02-09-2025 Hematocrit (Bld) [Volume fraction] 42.9 % 40-54 [facility] Hemoglobin measurementOrdere d By: Michelle Victor on 02-09-2025 Hemoglobin (Bld) [Mass/Vol] 14.2 g/dL 13.0-16.5 [facility] Immature granulocytes/100 WB C Auto (Bld)Ordered By: Michelle Victor on 02-09-2025 Immature granulocytes/100 WBC (Bld) 0.300 % 0.0-0.9 [facility] Comment on above: IG% - Immature Granu locytes (promyelocytes, myelocytes and metamyelocytes) > 1% indicates that a LEFT SHIFT is Present. International normalized rat io (INR) calculationOrdered By: Michelle Victor on 02-09-2025 INR Coag (Bld) [Relative time] 0.9 {INR} [facility] Lymphocytes Auto (Unsp spec) [#/Vol]Ordered By: Michelle Victor on 02-09-2025 Lymphocytes (Bld) [#/Vol] 1.61 10*3/uL 0.83-4.51 [facility] Lymphocytes/100 WBC Auto (Un sp spec)Ordered By: Michelle Victor on 02-09-2025 Lymphocytes/100 WBC (Bld) 26.4 % 19-41 [facility] MCV (mean corpuscular volume ) determinationOrdered By: Michelle Victor on 02-09-2025 MCV (RBC) [Entitic vol] 89.2 fL 80-94 [facility] Mean corpuscular hemoglobin (MCH) determinationOrdered By: Michelle Victor on 02-09-2025 MCH (RBC) [Entitic mass] 29.5 pg 27.0-32.0 [facility] Mean corpuscular hemoglobin concentration (MCHC) determinationOrdered By: Michelle Victor on 02-09-2025 MCHC (RBC) [Mass/Vol] 33.1 g/dL 32-36 [facility] Mean platelet volume determi nationOrdered By: Michelle Victor on 02-09-2025 Platelet mean volume (Bld) [Entitic vol] 9.2 fL 6.2-12.0 [facility] Monocyte percentageOrdered B y: Michelle Victor on 02-09-2025 Monocytes/100 WBC (Bld) 10.2 % High 0-10 [facility] Neutrophil percentageOrdered By: Michelle Victor on 02-09-2025 Neutrophils/100 WBC (Bld) 61.1 % 47-70 [facility] Nucleated red blood cell per centageOrdered By: Michelle Victor on 02-09-2025 Nucleated RBC/100 WBC (Bld) [Ratio] 0 % 0-5 [facility] Partial Thromboplast Timeon 02-09-2025 aPTT Coag (Bld) [Time] 30.6 s Normal 24.1-36.2 [facility] Comment on above: Performed By: #### L 715.6203 #### [facility] Laboratory [facility] [address] [place], [place], [id number] Platelet countOrdered By: Bonifacio Victor on 02-09-2025 Platelets (Bld) [#/Vol] 307 10*3/uL 150-450 [facility] Potassium (Unsp spec) [Mass/ Vol]Ordered By: Michelle Victor on 02-09-2025 Potassium [Moles/Vol] 4.3 mmol/L 3.3-5.1 [facility] Comment on above: Hemolysis present, R esults could be affected. Potassium measurement (mass/ volume)Ordered By: Michelle Victor on 02-09-2025 Potassium (Unsp spec) [Mass/Vol] 4.3 mmol/L 3.3-5.1 [facility] Comment on above: Hemolysis present, R esults could be affected. Prothrombin Time w/INRon INR Coag (PPP) [Relative time] 0.9 {INR} Normal [facility] Comment on above: Performed By: #### L 300.4310 #### [facility] Laboratory [address] [place], [address] PT Coag (PPP) [Time] 12.6 s Normal 11.7-14.9 [facility] Comment on above: Performed By: #### L 300.4310 #### [facility] Laboratory [address] [place], [address] Prothrombin timeOrdered By: Michelle Victor on 02-09-2025 PT Coag (PPP) [Time] 12.6 s 11.7-14.9 [facility] RBC Auto (Bld) [#/Vol]Ordere d By: Michelle Victor on 02-09-2025 RBC (Bld) [#/Vol] 4.81 10*6/uL 4.6-6.2 [facility] Serum creatinine measurement (mass/volume)Ordered By: Michelle Victor on 02-09-2025 Creatinine [Mass/Vol] 0.96 mg/dL 0.70-1.20 [facility] Serum glucose measurement (m ass/volume)Ordered By: Michelle Victor on 02-09-2025 Glucose [Mass/Vol] 84 mg/dL 70-99 [facility] Serum or plasma calcium rosangela urement (mass/volume)Ordered By: Michelle Victor on 02-09-2025 Calcium [Mass/Vol] 9.4 mg/dL 7.6-11.0 [facility] Serum or plasma urea nitroge n measurement (mass/volume)Ordered By: Michelle Victor on 02-09-2025 Urea nitrogen [Mass/Vol] 15 mg/dL 4-19 [facility] Sodium levelOrdered By: Michelle Victor on 02-09-2025 Sodium [Moles/Vol] 138 mmol/L 133-145 [facility] Venous Duplex US, Unilateral on 02-09-2025 Venous Duplex US, Unilateral [facility] Cardiovascular Services [address] [place] [address] Venous Duplex US, Unilateral 02/09/25 1542 MR#: [id number] Acct: [id number] Name: DELTA CHEEK Rep #: [id number] : 1975 49 From: Michelle Mccall MD [...] By: Court Rod RVT 02/10/25 0953 Date Michelle Mccall MD CC: Dr. Michelle Victor DO; Dr. Rogelio Colvin MD Date Dictated: 02/09/251541 Date Transcribed: 02/10/25952 Carpenter'S Assistant: Signed Normal [facility] White blood cell (WBC) count Ordered By: Michelle Victor on 02-09-2025 WBC (Bld) [#/Vol] 6.1 10*3/uL 4.4-11.0 [facility] aPTT Coag (PPP) [Time]Ordere d By: Michelle Victor on 02-09-2025 aPTT Coag (Bld) [Time] 30.6 s 24.1-36.2 [facility] L/S Spine Bending Flex/[place] 02-03-2025 L/S Spine Bending Flex/Ext [facility] Imaging Services [address] [place] [address] L/S Spine Bending Flex/Ext MR#: [id number] Acct: [id number] Name: DELTA CHEEK Jr. Rep #: [id number] : 1975 M 49 From: Mendy Back MD PCP: Dr. Rogelio Colvin MD Status: DEP AMB Study: L/S Spine Bending Flex/Ext Date of Exam: 02/03 Exam# [id number] Ordering Dr: Nadia Brandt EXAM: XR Lumbosacral [...] findings in the lumbar spine. Reading [facility] CC: JORGE A Bauman; Dr. Rogelio Colvin MD Carpenter'S Assistant: Signed Normal [facility] Orthopedic Visit Reporton Orthopedic Visit Report [facility] [address] [place] [address] OFFICE VISIT Date of Service: 02/03/25 MR#: [id number] Acct: [id number] Name: DELTA CHEEK Rep #: [id number] : 1975 Provider: JORGE A Bauman Age/Sex: 49/M Location: [facility] Status: Signed Intake Vital Signs 01/26/25 08:20 [...] Flores. 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 Normal [facility] Anion gap in Serum or Plasma Ordered By: Teena Jacques on 01-27-2025 Anion gap [Moles/Vol] 9 mmol/L - [facility] BUN/creatinine ratioOrdered By: Teena Jacques on 01-27-2025 Urea nitrogen/Creatinine [Mass ratio] 18.3 mg/mg - [facility] Basic Metabolic Profile (BMP )on 01-27-2025 BUN/CRE 18.3 RATIO Normal 08-31 [facility] Comment on above: Performed By: #### L 500.2500, L100.0500 #### [facility] Laboratory [address] [place], [address] Calcium [Mass/Vol] 9.6 mg/dL Normal 7.6-11.0 [facility] Comment on above: Performed By: #### L 500.2500, L100.0500 #### [facility] Laboratory [address] [place], [address] Chloride [Moles/Vol] 101 mmol/L Normal 98-108 [facility] Comment on above: Performed By: #### L 500.2500, L100.0500 #### [facility] Laboratory [address] [place], [address] CO2 [Moles/Vol] 26.5 mmol/L Normal 21.0-32.0 [facility] Comment on above: Performed By: #### L 500.2500, L100.0500 #### [facility] Laboratory [address] [place], [address] Creatinine [Mass/Vol] 1.02 mg/dL Normal 0.70-1.20 [facility] Comment on above: Performed By: #### L 500.2500, L100.0500 #### [facility] Laboratory [address] [place], [address] GAP 9 Normal 5-15 [facility] Comment on above: Performed By: #### L 500.2500, L100.0500 #### [facility] [address] [place], [address] GFR/1.73 sq M.predicted among non-blacks MDRD (S/P/Bld) [Vol rate/Area] 89 mL/min/{1.73_m2} Normal >60 [facility] Comment on above: Result Comment: mL/m in/1.73m2 CKD-EPI Creatinine Equation (2020) Performed By: #### L 500.2500, L100.0500 #### [facility] [address] [place], [address] Glucose [Mass/Vol] 106 mg/dL High 70-99 [facility] Comment on above: Performed By: #### L 500.2500, L100.0500 #### [facility] [address] [place], [address] Potassium [Moles/Vol] 4.1 mmol/L Normal 3.3-5.1 [facility] Comment on above: Result Comment: Hemo lysis present, Results??could be affected. ?? Performed By: #### L 500.2500, L100.0500 #### [facility] [address] [place], [address] Sodium [Moles/Vol] 137 mmol/L Normal 133-145 [facility] Comment on above: Performed By: #### L 500.2500, L100.0500 #### [facility] [address] [place], [address] Urea nitrogen [Mass/Vol] 19 mg/dL Normal 4-19 [facility] Comment on above: Performed By: #### L 500.2500, L100.0500 #### [facility] [address] [place], [address] CBC-Complete Blood Cnt No Di ffon 01-27-2025 Erythrocyte distribution width (RBC) [Ratio] 13.1 % Normal 11.6-14.6 [facility] Comment on above: Performed By: #### L 500.2500, L100.0500 #### [facility] [address] [place], [address] Hematocrit (Bld) [Volume fraction] 45.1 % Normal 40-54 [facility] Comment on above: Performed By: #### L 500.2500, L100.0500 #### [facility] [address] [place], [address] Hemoglobin (Bld) [Mass/Vol] 15.1 g/dL Normal 13.0-16.5 [facility] Comment on above: Performed By: #### L 500.2500, L100.0500 #### [facility] [address] [place], [address] MCH (RBC) [Entitic mass] 30.0 pg Normal 27.0-32.0 [facility] Comment on above: Performed By: #### L 500.2500, L100.0500 #### [facility] [address] [place], [address] MCHC (RBC) [Mass/Vol] 33.5 g/dL Normal 32-36 [facility] Comment on above: Performed By: #### L 500.2500, L100.0500 #### [facility] [address] [place], [address] MCV (RBC) [Entitic vol] 89.7 fL Normal 80-94 [facility] Comment on above: Performed By: #### L 500.2500, L100.0500 #### [facility] [address] [place], [address] Platelet mean volume (Bld) [Entitic vol] 9.3 fL Normal 6.2-12.0 [facility] Comment on above: Performed By: #### L 500.2500, L100.0500 #### [facility] [address] [place], [address] Platelets (Bld) [#/Vol] 328 10*3/uL Normal 150-450 [facility] Comment on above: Performed By: #### L 500.2500, L100.0500 #### [facility] [address] [place], [address] RBC (Bld) [#/Vol] 5.03 10*6/uL Normal 4.6-6.2 [facility] Comment on above: Performed By: #### L 500.2500, L100.0500 #### [facility] [address] [place], [address] RDW SD 42.5 fl Normal 35.1-43.9 [facility] Comment on above: Performed By: #### L 500.2500, L100.0500 #### [facility] [address] [place], [address] WBC (Bld) [#/Vol] 7.8 10*3/uL Normal 4.4-11.0 [facility] Comment on above: Performed By: #### L 500.2500, L100.0500 #### [facility] [address] [place], [address] Carbon dioxide, total [Moles /volume] in Central venous bloodOrdered By: Teena Jacques on 01-27-2025 CO2 [Moles/Vol] 26.5 mmol/L 21.0-32.0 [facility] Chloride assayOrdered By: Dottie Jacques on 01-27-2025 Chloride [Moles/Vol] 101 mmol/L 98-108 [facility] Erythrocyte distribution wid th ratioOrdered By: Teena Jacques on 01-27-2025 Erythrocyte distribution width (RBC) [Ratio] 13.1 % 11.6-14.6 [facility] Erythrocyte distribution wid th standard deviationOrdered By: Teena Jacques on 01-27-2025 Erythrocyte distribution width (RBC) [Entitic vol] 42.5 fL 35.1-43.9 [facility] Erythrocyte distribution width (RBC) [Ratio] 42.5 fl 35.1-43.9 [facility] GFR/1.73 sq M.predicted xander g non-blacks MDRD (S/P/Bld) [Vol rate/Area]Ordered By: Teena Jacques on 01-27-2025 Estimated GFR (MDRD) Non-Af Amer 89 >60 [facility] Comment on above: mL/min/1.73m2 CKD-EP I Creatinine Equation (2020) Glomerular filtration rate ( GFR) estimation/1.73 sq m using serum, plasma, or whole bOrdered By: Teena Jacques on 01-27-2025 GFR/1.73 sq M.predicted among non-blacks MDRD (S/P/Bld) [Vol rate/Area] 89 mL/min/{1.73_m2} >60 [facility] Comment on above: mL/min/1.73m2 CKD-EP I Creatinine Equation (2020) Hematocrit Auto (Bld) [Volum e fraction]Ordered By: Teena Jacques on 01-27-2025 Hematocrit (Bld) [Volume fraction] 45.1 % 40-54 [facility] Hemoglobin measurementOrdere d By: Teena Jacques on 01-27-2025 Hemoglobin (Bld) [Mass/Vol] 15.1 g/dL 13.0-16.5 [facility] MCV (mean corpuscular volume ) determinationOrdered By: Teena Jacques on 01-27-2025 MCV (RBC) [Entitic vol] 89.7 fL 80-94 [facility] MR/BMSMigue 01-27-2025 [facility] [address] [place] [address] OFFICE VISIT Date of Service: 01/27/25 MR#: [id number] Acct: [id number] Name: ADIADELTA Gilberto Chan Rep #: [id number] : 1975 Provider: JORGE A Schmitt Age/Sex: 49/M Location: [facility] [place] Status: Signed Intake Vital Signs 01/19/25 16:09 [...] No numbn (more content not included)... Normal [facility] Mean corpuscular hemoglobin (MCH) determinationOrdered By: Teena Jacques on 01-27-2025 MCH (RBC) [Entitic mass] 30.0 pg 27.0-32.0 [facility] Mean corpuscular hemoglobin concentration (MCHC) determinationOrdered By: Teena Jacques on 01-27-2025 MCHC (RBC) [Mass/Vol] 33.5 g/dL 32-36 [facility] Mean platelet volume determi nationOrdered By: Teena Jacques on 01-27-2025 Platelet mean volume (Bld) [Entitic vol] 9.3 fL 6.2-12.0 [facility] Platelet countOrdered By: Dottie dominique Georgie on 01-27-2025 Platelets (Bld) [#/Vol] 328 10*3/uL 150-450 [facility] Potassium (Unsp spec) [Mass/ Vol]Ordered By: Teena Jacques on 01-27-2025 Potassium [Moles/Vol] 4.1 mmol/L 3.3-5.1 [facility] Comment on above: Hemolysis present, R esults could be affected. Potassium measurement (mass/ volume)Ordered By: Teena Jacques on 01-27-2025 Potassium (Unsp spec) [Mass/Vol] 4.1 mmol/L 3.3-5.1 [facility] Comment on above: Hemolysis present, R esults could be affected. RBC Auto (Bld) [#/Vol]Ordere d By: Teena Jacques on 01-27-2025 RBC (Bld) [#/Vol] 5.03 10*6/uL 4.6-6.2 [facility] Serum creatinine measurement (mass/volume)Ordered By: Teena Jacques on 01-27-2025 Creatinine [Mass/Vol] 1.02 mg/dL 0.70-1.20 [facility] Serum glucose measurement (m ass/volume)Ordered By: Teena Jacques on 01-27-2025 Glucose [Mass/Vol] 106 mg/dL High 70-99 [facility] Serum or plasma calcium rosangela urement (mass/volume)Ordered By: Teena Jacques on 01-27-2025 Calcium [Mass/Vol] 9.6 mg/dL 7.6-11.0 [facility] Serum or plasma urea nitroge n measurement (mass/volume)Ordered By: Teena Jacques on 01-27-2025 Urea nitrogen [Mass/Vol] 19 mg/dL 4-19 [facility] Sodium levelOrdered By: Stan Jacques on 01-27-2025 Sodium [Moles/Vol] 137 mmol/L 133-145 [facility] White blood cell (WBC) count Ordered By: Teena Jacques on 01-27-2025 WBC (Bld) [#/Vol] 7.8 10*3/uL 4.4-11.0 [facility] Absolute lymphocyte countOrd ered By: Michelle Mccall on 01-20-2025 Lymphocytes Auto (Unsp spec) [#/Vol] 1.08 10*3/uL 0.83-4.51 [facility] Absolute neutrophil countOrd ered By: Michelle Mccall on 01-20-2025 Neutrophils (Bld) [#/Vol] 9.0 10*3/uL High 2.0-7.7 [facility] Activated partial thrombopla stin time (aPTT) in platelet poor plasma by coagulation aOrdered By: Michelle Mccall on 01-20-2025 aPTT Coag (PPP) [Time] 35.8 s 24.1-36.2 [facility] Anion gap in Serum or Plasma Ordered By: Michelle Mccall on 01-20-2025 Anion gap [Moles/Vol] 10 mmol/L 5-15 [facility] Automated lymphocyte count a s percentage of total leukocytesOrdered By: Michelle Mccall on 01-20-2025 Lymphocytes/100 WBC Auto (Unsp spec) 9.9 % Low 19-41 [facility] BUN/creatinine ratioOrdered By: Michelle Mccall on 01-20-2025 Urea nitrogen/Creatinine [Mass ratio] 16.7 mg/mg 10-20 [facility] Basic Metabolic Profile (BMP )on 01-20-2025 BUN/CRE 16.7 RATIO Normal 10-20 [facility] Comment on above: Performed By: #### L 500.2500, L100.0500 #### [facility] [address] [place], [address] Calcium [Mass/Vol] 8.5 mg/dL Normal 7.6-11.0 [facility] Comment on above: Performed By: #### L 500.2500, L100.0500 #### [facility] [address] [place], [address] Chloride [Moles/Vol] 103 mmol/L Normal 98-108 [facility] Comment on above: Performed By: #### L 500.2500, L100.0500 #### [facility] [address] [place], [address] CO2 [Moles/Vol] 22.5 mmol/L Normal 21.0-32.0 [facility] Comment on above: Performed By: #### L 500.2500, L100.0500 #### [facility] [address] [place], [address] Creatinine [Mass/Vol] 0.95 mg/dL Normal 0.70-1.20 [facility] Comment on above: Performed By: #### L 500.2500, L100.0500 #### [facility] [address] [place], [address] ECRCL 124.37 ml/min Normal 50-250 [facility] Comment on above: Performed By: #### L 500.2500, L100.0500 #### [facility] [address] [place], [address] GAP 10 Normal 5-15 [facility] Comment on above: Performed By: #### L 500.2500, L100.0500 #### [facility] [address] [place], [address] GFR/1.73 sq M.predicted among non-blacks MDRD (S/P/Bld) [Vol rate/Area] 97 mL/min/{1.73_m2} Normal >60 [facility] Comment on above: Result Comment: mL/m in/1.73m2 CKD-EPI Creatinine Equation (2020) Performed By: #### L 500.2500, L100.0500 #### [facility] [address] [place], [address] Glucose [Mass/Vol] 115 mg/dL High 70-99 [facility] Comment on above: Performed By: #### L 500.2500, L100.0500 #### [facility] [address] [place], [address] Potassium [Moles/Vol] 3.7 mmol/L Normal 3.3-5.1 [facility] Comment on above: Performed By: #### L 500.2500, L100.0500 #### [facility] [address] [place], [address] Sodium [Moles/Vol] 135 mmol/L Normal 133-145 [facility] Comment on above: Performed By: #### L 500.2500, L100.0500 #### [facility] [address] [place], [address] Urea nitrogen [Mass/Vol] 16 mg/dL Normal 4-19 [facility] Comment on above: Performed By: #### L 500.2500, L100.0500 #### [facility] [address] [place], [address] Basophil percentageOrdered B y: Michelle Mccall on 01-20-2025 Basophils/100 WBC (Bld) 0.2 % 0-1 [facility] CBC W/Diff, Automatedon 01-10-2024 Absolute Lymph 1.08 X10 3/uL Normal 0.83-4.51 [facility] Comment on above: Performed By: #### L 300.4310 #### [facility] [address] [place], [address] Absolute Neut 9.0 X10 3/uL High 2.0-7.7 [facility] Comment on above: Performed By: #### L 300.4310 #### [facility] [address] [place], [address] Basophils/100 WBC (Bld) 0.2 % Normal 0-1 [facility] Comment on above: Performed By: #### L 300.4310 #### [facility] [address] [place], [address] Eosinophils/100 WBC (Bld) 0.0 % Normal 0-5 [facility] Comment on above: Performed By: #### L 300.4310 #### [facility] [address] [place], [address] Erythrocyte distribution width (RBC) [Ratio] 12.7 % Normal 11.6-14.6 [facility] Comment on above: Performed By: #### L 300.4310 #### [facility] [address] [place], [address] Hematocrit (Bld) [Volume fraction] 35.5 % Low 40-54 [facility] Comment on above: Performed By: #### L 300.4310 #### [facility] [address] [place], [address] Hemoglobin (Bld) [Mass/Vol] 11.9 g/dL Low 13.0-16.5 [facility] Comment on above: Performed By: #### L 300.4310 #### [facility] [address] [place], [address] IG% 0.500 Normal 0.0-0.9 [facility] Comment on above: Result Comment: IG% - Immature Granulocytes (promyelocytes, myelocytes and metamyelocytes) > 1% indicates that a LEFT SHIFT is Present. Performed By: #### L 300.4310 #### [facility] [address] [place], [address] Lymphocytes/100 WBC (Bld) 9.9 % Low 19-41 [facility] Comment on above: Performed By: #### L 300.4310 #### [facility] [address] [place], [address] MCH (RBC) [Entitic mass] 29.8 pg Normal 27.0-32.0 [facility] Comment on above: Performed By: #### L 300.4310 #### [facility] [address] [place], [address] MCHC (RBC) [Mass/Vol] 33.5 g/dL Normal 32-36 [facility] Comment on above: Performed By: #### L 300.4310 #### [facility] [address] [place], [address] MCV (RBC) [Entitic vol] 89.0 fL Normal 80-94 [facility] Comment on above: Performed By: #### L 300.4310 #### [facility] [address] [place], [address] Monocytes/100 WBC (Bld) 7.2 % Normal 0-10 [facility] Comment on above: Performed By: #### L 300.4310 #### [facility] [address] [place], [address] Neutrophils/100 WBC (Bld) 82.2 % High 47-70 [facility] Comment on above: Performed By: #### L 300.4310 #### [facility] [address] [place], [address] Nucleated RBC (Bld) [#/Vol] 0 10*3/uL Normal 0-5 [facility] Comment on above: Performed By: #### L 300.4310 #### [facility] [address] [place], [address] Platelet mean volume (Bld) [Entitic vol] 8.9 fL Normal 6.2-12.0 [facility] Comment on above: Performed By: #### L 300.4310 #### [facility] [address] [place], [address] Platelets (Bld) [#/Vol] 172 10*3/uL Normal 150-450 [facility] Comment on above: Performed By: #### L 300.4310 #### [facility] [address] [place], [address] RBC (Bld) [#/Vol] 3.99 10*6/uL Low 4.6-6.2 [facility] Comment on above: Performed By: #### L 300.4310 #### [facility] [address] [place], [address] RDW SD 41.7 fl Normal 35.1-43.9 [facility] Comment on above: Performed By: #### L 300.4310 #### [facility] [address] [place], [address] WBC (Bld) [#/Vol] 10.9 10*3/uL Normal 4.4-11.0 [facility] Comment on above: Performed By: #### L 300.4310 #### [facility] [address] [place], [address] Carbon dioxide, total [Moles /volume] in Central venous bloodOrdered By: Michelle Mccall on 01-20-2025 CO2 [Moles/Vol] 22.5 mmol/L 21.0-32.0 [facility] Chloride assayOrdered By: Bonifacio Mccall on 01-20-2025 Chloride [Moles/Vol] 103 mmol/L 98-108 [facility] Eosinophil percentageOrdered By: Michelle Mccall on 01-20-2025 Eosinophils/100 WBC (Bld) 0.0 % 0-5 [facility] Erythrocyte distribution wid th ratioOrdered By: Michelle Mccall on 01-20-2025 Erythrocyte distribution width (RBC) [Ratio] 12.7 % 11.6-14.6 [facility] Erythrocyte distribution wid th standard deviationOrdered By: Michelle Mccall on 01-20-2025 Erythrocyte distribution width (RBC) [Entitic vol] 41.7 fL 35.1-43.9 [facility] Erythrocyte distribution width (RBC) [Ratio] 41.7 fl 35.1-43.9 [facility] Estimation of creatinine obed aranceOrdered By: Michelle Mccall on 01-20-2025 Estimated Creatinine Clearance Calc 124.37 ml/min 50-250 [facility] GFR/1.73 sq M.predicted xander g non-blacks MDRD (S/P/Bld) [Vol rate/Area]Ordered By: Michelle Mccall on 01-20-2025 Estimated GFR (MDRD) Non-Af Amer 97 >60 [facility] Comment on above: mL/min/1.73m2 CKD-EP I Creatinine Equation (2020) Glomerular filtration rate ( GFR) estimation/1.73 sq m using serum, plasma, or whole bOrdered By: Michelle Mccall on 01-20-2025 GFR/1.73 sq M.predicted among non-blacks MDRD (S/P/Bld) [Vol rate/Area] 97 mL/min/{1.73_m2} >60 [facility] Comment on above: mL/min/1.73m2 CKD-EP I Creatinine Equation (2020) Hematocrit Auto (Bld) [Volum e fraction]Ordered By: Michelle Mccall on 01-20-2025 Hematocrit (Bld) [Volume fraction] 35.5 % Low 40-54 [facility] Hemoglobin measurementOrdere d By: Michelle Mccall on 01-20-2025 Hemoglobin (Bld) [Mass/Vol] 11.9 g/dL Low 13.0-16.5 [facility] Immature granulocytes/100 WB C Auto (Bld)Ordered By: Michelle Mccall on 01-20-2025 Immature granulocytes/100 WBC (Bld) 0.500 % 0.0-0.9 [facility] Comment on above: IG% - Immature Granu locytes (promyelocytes, myelocytes and metamyelocytes) > 1% indicates that a LEFT SHIFT is Present. Lymphocytes Auto (Unsp spec) [#/Vol]Ordered By: Michelle Mccall on 01-20-2025 Lymphocytes (Bld) [#/Vol] 1.08 10*3/uL 0.83-4.51 [facility] Lymphocytes/100 WBC Auto (Un sp spec)Ordered By: Michelle Mccall on 01-20-2025 Lymphocytes/100 WBC (Bld) 9.9 % Low 19-41 [facility] MCV (mean corpuscular volume ) determinationOrdered By: Michelle Mccall on 01-20-2025 MCV (RBC) [Entitic vol] 89.0 fL 80-94 [facility] Mean corpuscular hemoglobin (MCH) determinationOrdered By: Michelle Mccall on 01-20-2025 MCH (RBC) [Entitic mass] 29.8 pg 27.0-32.0 [facility] Mean corpuscular hemoglobin concentration (MCHC) determinationOrdered By: Michelle Mccall on 01-20-2025 MCHC (RBC) [Mass/Vol] 33.5 g/dL 32-36 [facility] Mean platelet volume determi nationOrdered By: Michelle Mccall on 01-20-2025 Platelet mean volume (Bld) [Entitic vol] 8.9 fL 6.2-12.0 [facility] Monocyte percentageOrdered B y: Michelle Mccall on 01-20-2025 Monocytes/100 WBC (Bld) 7.2 % 0-10 [facility] Neutrophil percentageOrdered By: Michelle Mccall on 01-20-2025 Neutrophils/100 WBC (Bld) 82.2 % High 47-70 [facility] Nucleated red blood cell per centageOrdered By: Michelle Mccall on 01-20-2025 Nucleated RBC/100 WBC (Bld) [Ratio] 0 % 0-5 [facility] Partial Thromboplast Timeon 01-20-2025 aPTT Coag (Bld) [Time] 35.8 s Normal 24.1-36.2 [facility] Comment on above: Performed By: #### L 500.2500, L100.0500 #### [facility] [address] [place], [address] aPTT Coag (Bld) [Time] 33.8 s Normal 24.1-36.2 [facility] Comment on above: Performed By: #### L 500.2500, L100.0500 #### [facility] [address] [place], [address] Platelet countOrdered By: Bonifacio Mccall on 01-20-2025 Platelets (Bld) [#/Vol] 172 10*3/uL 150-450 [facility] Potassium (Unsp spec) [Mass/ Vol]Ordered By: Michelle Mccall on 01-20-2025 Potassium [Moles/Vol] 3.7 mmol/L 3.3-5.1 [facility] Potassium measurement (mass/ volume)Ordered By: Michelle Mccall on 01-20-2025 Potassium (Unsp spec) [Mass/Vol] 3.7 mmol/L 3.3-5.1 [facility] RBC Auto (Bld) [#/Vol]Ordere d By: Michelle Mccall on 01-20-2025 RBC (Bld) [#/Vol] 3.99 10*6/uL Low 4.6-6.2 [facility] Serum creatinine measurement (mass/volume)Ordered By: Michelle Mccall on 01-20-2025 Creatinine [Mass/Vol] 0.95 mg/dL 0.70-1.20 [facility] Serum glucose measurement (m ass/volume)Ordered By: Michelle Mccall on 01-20-2025 Glucose [Mass/Vol] 115 mg/dL High 70-99 [facility] Serum or plasma calcium rosangela urement (mass/volume)Ordered By: Michelle Mcacll on 01-20-2025 Calcium [Mass/Vol] 8.5 mg/dL 7.6-11.0 [facility] Serum or plasma urea nitroge n measurement (mass/volume)Ordered By: Michelle Mccall on 01-20-2025 Urea nitrogen [Mass/Vol] 16 mg/dL 4-19 [facility] Sodium levelOrdered By: Michelle Mccall on 01-20-2025 Sodium [Moles/Vol] 135 mmol/L 133-145 [facility] White blood cell (WBC) count Ordered By: Michelle Mccall on 01-20-2025 WBC (Bld) [#/Vol] 10.9 10*3/uL 4.4-11.0 [facility] aPTT Coag (PPP) [Time]Ordere d By: Michelle Mccall on 01-20-2025 aPTT Coag (Bld) [Time] 35.8 s 24.1-36.2 [facility] ACT Activated Clotting Timeo n 01-19-2025 ACTk CLOT TIME 181 sec High 74-137 [facility] Comment on above: Performed By: #### L 9100.0100 #### [facility] [address] [place], [address] [employer]k CLOT TIME 222 sec High 74-137 [facility] Comment on above: Performed By: #### L 500.2500, L100.0500 #### [facility] [address] [place], [address] [employer] CLOT TIME 199 sec High 74-137 [facility] Comment on above: Performed By: #### L 500.2500, L100.0500 #### [facility] [address] [place], [address] [employer]k CLOT TIME 187 sec High 74-137 [facility] [facility] Comment on above: Performed By: #### L 500.2500, L100.0500 #### [facility] [address] [place], [address] Activated clotting timeOrder ed By: Michelle Mccall on 01-19-2025 Activated Clotting Time 222 sec High 74-137 [facility] Basic Metabolic Profile (BMP )on 01-19-2025 BUN/CRE 21.6 RATIO High 10-20 [facility] Comment on above: Performed By: #### L 500.2500, L100.0500 #### [facility] [address] [place], [address] Calcium [Mass/Vol] 9.3 mg/dL Normal 7.6-11.0 [facility] Comment on above: Performed By: #### L 500.2500, L100.0500 #### [facility] [address] [place], [address] Chloride [Moles/Vol] 104 mmol/L Normal 98-108 [facility] Comment on above: Performed By: #### L 500.2500, L100.0500 #### [facility] [address] [place], [address] CO2 [Moles/Vol] 25.2 mmol/L Normal 21.0-32.0 [facility] Comment on above: Performed By: #### L 500.2500, L100.0500 #### [facility] [address] [place], [address] Creatinine [Mass/Vol] 1.09 mg/dL Normal 0.70-1.20 [facility] Comment on above: Performed By: #### L 500.2500, L100.0500 #### [facility] [address] [place], [address] GAP 12 Normal 5-15 [facility] Comment on above: Performed By: #### L 500.2500, L100.0500 #### [facility] [address] [place], [address] GFR/1.73 sq M.predicted among non-blacks MDRD (S/P/Bld) [Vol rate/Area] 82 mL/min/{1.73_m2} Normal >60 [facility] Comment on above: Result Comment: mL/m in/1.73m2 CKD-EPI Creatinine Equation (2020) Performed By: #### L 500.2500, L100.0500 #### [facility] [address] [place], [address] Glucose [Mass/Vol] 103 mg/dL High 70-99 [facility] Comment on above: Performed By: #### L 500.2500, L100.0500 #### [facility] [address] [place], [address] Potassium [Moles/Vol] 3.8 mmol/L Normal 3.3-5.1 [facility] Comment on above: Performed By: #### L 500.2500, L100.0500 #### [facility] [address] [place], [address] Sodium [Moles/Vol] 141 mmol/L Normal 133-145 [facility] Comment on above: Performed By: #### L 500.2500, L100.0500 #### [facility] [address] [place], [address] Urea nitrogen [Mass/Vol] 24 mg/dL High 4-19 [facility] Comment on above: Performed By: #### L 500.2500, L100.0500 #### [facility] [address] [place], [address] CBC-Complete Blood Cnt No Di ffon 01-19-2025 Erythrocyte distribution width (RBC) [Ratio] 12.7 % Normal 11.6-14.6 [facility] Comment on above: Performed By: #### L 500.2500, L100.0500 #### [facility] [address] [place], [address] Hematocrit (Bld) [Volume fraction] 41.8 % Normal 40-54 [facility] Comment on above: Performed By: #### L 500.2500, L100.0500 #### [facility] [address] [place], [address] Hemoglobin (Bld) [Mass/Vol] 14.0 g/dL Normal 13.0-16.5 [facility] Comment on above: Performed By: #### L 500.2500, L100.0500 #### [facility] [address] [place], [address] MCH (RBC) [Entitic mass] 29.5 pg Normal 27.0-32.0 [facility] Comment on above: Performed By: #### L 500.2500, L100.0500 #### [facility] [address] [place], [address] MCHC (RBC) [Mass/Vol] 33.5 g/dL Normal 32-36 [facility] Comment on above: Performed By: #### L 500.2500, L100.0500 #### [facility] [address] [place], [address] MCV (RBC) [Entitic vol] 88.0 fL Normal 80-94 [facility] Comment on above: Performed By: #### L 500.2500, L100.0500 #### [facility] [address] [place], [address] Platelet mean volume (Bld) [Entitic vol] 8.9 fL Normal 6.2-12.0 [facility] Comment on above: Performed By: #### L 500.2500, L100.0500 #### [facility] [address] [place], [address] Platelets (Bld) [#/Vol] 217 10*3/uL Normal 150-450 [facility] Comment on above: Performed By: #### L 500.2500, L100.0500 #### [facility] [address] [place], [address] RBC (Bld) [#/Vol] 4.75 10*6/uL Normal 4.6-6.2 [facility] Comment on above: Performed By: #### L 500.2500, L100.0500 #### [facility] [address] [place], [address] RDW SD 40.6 fl Normal 35.1-43.9 [facility] Comment on above: Performed By: #### L 500.2500, L100.0500 #### [facility] [address] [place], [address] WBC (Bld) [#/Vol] 5.8 10*3/uL Normal 4.4-11.0 [facility] Comment on above: Performed By: #### L 500.2500, L100.0500 #### [facility] [address] [place], [address] MR/POSTOP.ANEon 03-10-2025 MR/POSTOP.ANE [facility] Medical Records Department [address] [place] [address] Anesthesia Postop Eval I 01/19/25 1343 MR#: [id number] Acct: [id number] Name: DELTA CHEEK Jr. Rep #: [id number] : 1975 49 From: Marie Pennington HEAD BOOKKEEPER PCP: Dr. Rogelio Colvin MD Status:REG SDC Y Race: C Location: [place] [address] Anesthesia: Postop Eval I Current Vital Signs [...] 1 completed: Yes 01/19/25 1344 Date Marie Milbecki HEAD BOOKKEEPER Cosigner Signature: Date CC: Signed Normal [facility] MR/[id number] 01-19-2025 MR/POSTOPAN2 [facility] Medical Records Department [address] [place] [address] Anesthesia Postop Eval II 01/19/25 1517 MR#: [id number] Acct: [id number] Name: DELTA CHEEK Jr. Rep #: [id number] : 1975 49 From: Joseph Segura MD PCP: Dr. Rogelio Colvin MD Status:ADM TATUM Y Race: C Location: [place] [address] Anesthesia Postop Eval I Sum Postop Eval Completion status Anesthesia document: Postop Eval 1 completed: Yes Anesthesia Postop Eval I Summary Anesthesia Postop Eval I Summary: Anesthesia Postop Eval I: Assessment Summary Airway patent Yes 01/19/25 13:44 HEAD [email or web address] Spontaneous unlabored Yes 01/19/25 13:44 HEAD [email or web address].LMIL respirations Mental status Awake,Calm 01/19/25 13:44 HEAD [email or web address].LMIL nausea No 01/19/25 13:44 HEAD [email or web address].LMIL Vomiting No 01/19/25 13:44 HEAD [email or web address].LMIL Anesthesia Postop Eval I: Fluid Summary Crystalloid volume administer 900 01/19/25 13:44 HEAD [email or web address].LMIL (ml) Colloids volume administered ( ml) Blood Product volume administered (ml) Total IV fluid infused 900 01/19/25 13:44 HEAD [email or web address].LMIL Anesthesia Postop Eval I: Summary Notes Anesthesia Complication No 01/19/25 13:44 HEAD [email or web address].LMIL Anesthesia Complication Comment: Post-operative progress note Anesthesia: Postop Eval II Evaluation Mental status: Awake Pain Level: 1 nausea: No Vomiting: No 01/19/25 1517 Date Joseph Miller Signature: Date CC: Signed Normal [facility] Operative Reporton 5 Operative Report [facility] Medical Records Department [address] [place] [address] Operative Report 01/19/25 1642 MR#: [id number] Acct: [id number] Name: DELTA CHEEK Jr. Rep #: [id number] : 1975 49 From: Michelle Mccall MD PCP: Dr. Rogelio Colvin MD Status:ADM TATUM Location: [place] [address] Operative Report (Standard) Operative Information Date of [...] external iliac vein, right common iliac vein systems security consultant: No Type of Anesthesia: General RN Documented [...] patient procedure site patient was taken the Manager Progressive Care he was placed on general anesthesia. He [...] micropuncture sheath and exchanged for an 8 Turkish sheath which was advanced over the wire [...] the micropuncture sheath exchanged for short 5 Turkish sheath. The Bentson wire was exchanged for [...] to circulate for 3 minutes. The 8 Turkish sheath was then exchanged for the Inari Protrieve distal protection sheath in the filter mechanism deployed. Next a [employer] [place] 10 (more content not included)... Normal [facility] Partial Thromboplast Timeon 01-19-2025 aPTT Coag (Bld) [Time] 31.8 s Normal 24.1-36.2 [facility] Comment on above: Performed By: #### L [id number] ####[facility] [id number] [facility] [place], [address] MR/PAT.ANEon 01-15-2025 MR/PAT.[facility] Medical Records Department [address] [place] [address] PAT - Anesthesia 01/15/25 1631 MR#: [id number] Acct: [id number] Name: DELTA CHEEK Jr. Rep #: [id number] : 1975 49 From: Andrew Carranza MD PCP: Dr. Rogelio Colvin MD Status:PRE [facility] Y Race: C Location: 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 Hx Hospitalization No 01/15/25 13:38 Any Problems [...] take am of surgery PONV PONV - tray service worker: PONV - tray service worker Female No 01/15/25 13:38 HX of Motion [...] 01/14/25 10:56 Respiratory Assessment Respiratory Assessment - tray service worker: Respiratory Tract Infection Hx - tray service worker Hx Respiratory Tract Infection No 01/15/25 13:38 STOP Sleep Apnea STOP Sleep Apnea - tray service worker: STOP Sleep Apnea - tray service worker Hx Hypertension Yes: CONTROLLED ON MED 01/15/25 [...] Tobacco Use History Tobacco Use History - tray service worker: Tobacco Use History - tray service worker Tobacco Use Smoking Status Former smoker 01/15/25 13:38 Hx Tobacco Use No 01/15/25 13:38 Years Smoking Packs Smoked per Day Smoking Cessation Date was Yes - quit smoking within 15 01/15/25 13:38 within the last 15 years years Hx Smoking Cessation Date Hx Smoking Cessation Counseling Hematologic Medial History Hematologic Hx - tray service worker: 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 Normal [facility] Anion gap in Serum or Plasma Ordered By: Michelle Mccall on 01-14-2025 Anion gap [Moles/Vol] 11 mmol/L 5-15 [facility] BUN/creatinine ratioOrdered By: Michelle Mccall on 01-14-2025 Urea nitrogen/Creatinine [Mass ratio] 11.8 mg/mg 10- [facility] Basic Metabolic Profile (BMP )on 01-14-2025 BUN/CRE 11.8 RATIO Normal - [facility] Comment on above: Performed By: #### L 500.2500, L100.0500 #### [facility] [address] [place], [address] Calcium [Mass/Vol] 9.4 mg/dL Normal 7.6-11.0 [facility] Comment on above: Performed By: #### L 500.2500, L100.0500 #### [facility] [address] [place], [address] Chloride [Moles/Vol] 101 mmol/L Normal 98-108 [facility] Comment on above: Performed By: #### L 500.2500, L100.0500 #### [facility] [address] [place], [address] CO2 [Moles/Vol] 26.4 mmol/L Normal 21.0-32.0 [facility] Comment on above: Performed By: #### L 500.2500, L100.0500 #### [facility] [address] [place], [address] Creatinine [Mass/Vol] 1.17 mg/dL Normal 0.70-1.20 [facility] Comment on above: Performed By: #### L 500.2500, L100.0500 #### [facility] [address] [place], [address] ECRCL 100.60 ml/min Normal 50-250 [facility] Comment on above: Performed By: #### L 500.2500, L100.0500 #### [facility] [address] [place], [address] GAP 11 Normal 5-15 [facility] Comment on above: Performed By: #### L 500.2500, L100.0500 #### [facility] [address] [place], [address] GFR/1.73 sq M.predicted among non-blacks MDRD (S/P/Bld) [Vol rate/Area] 75 mL/min/{1.73_m2} Normal >60 [facility] Comment on above: Result Comment: mL/m in/1.73m2 CKD-EPI Creatinine Equation (2020) Performed By: #### L 500.2500, L100.0500 #### [facility] [address] [place], [address] Glucose [Mass/Vol] 102 mg/dL High 70-99 [facility] Comment on above: Performed By: #### L 500.2500, L100.0500 #### [facility] [address] [place], [address] Potassium [Moles/Vol] 4.1 mmol/L Normal 3.3-5.1 [facility] Comment on above: Performed By: #### L 500.2500, L100.0500 #### [facility] [address] [place], [address] Sodium [Moles/Vol] 138 mmol/L Normal 133-145 [facility] Comment on above: Performed By: #### L 500.2500, L100.0500 #### [facility] [address] [place], [address] Urea nitrogen [Mass/Vol] 14 mg/dL Normal 4-19 [facility] Comment on above: Performed By: #### L 500.2500, L100.0500 #### [facility] [address] [place], [address] CBC-Complete Blood Cnt No Di ffon 01-14-2025 Erythrocyte distribution width (RBC) [Ratio] 12.9 % Normal 11.6-14.6 [facility] Comment on above: Performed By: #### L 500.2500, L100.0500 #### [facility] [address] [place], [address] Hematocrit (Bld) [Volume fraction] 46.4 % Normal 40-54 [facility] Comment on above: Performed By: #### L 500.2500, L100.0500 #### [facility] [address] [place], [address] Hemoglobin (Bld) [Mass/Vol] 15.3 g/dL Normal 13.0-16.5 [facility] Comment on above: Performed By: #### L 500.2500, L100.0500 #### [facility] [address] [place], [address] MCH (RBC) [Entitic mass] 29.2 pg Normal 27.0-32.0 [facility] Comment on above: Performed By: #### L 500.2500, L100.0500 #### [facility] [address] [place], [address] MCHC (RBC) [Mass/Vol] 33.0 g/dL Normal 32-36 [facility] Comment on above: Performed By: #### L 500.2500, L100.0500 #### [facility] [address] [place], [address] MCV (RBC) [Entitic vol] 88.5 fL Normal 80-94 [facility] Comment on above: Performed By: #### L 500.2500, L100.0500 #### [facility] [address] [place], [address] Platelet mean volume (Bld) [Entitic vol] 8.8 fL Normal 6.2-12.0 [facility] Comment on above: Performed By: #### L 500.2500, L100.0500 #### [facility] [address] [place], [address] Platelets (Bld) [#/Vol] 259 10*3/uL Normal 150-450 [facility] Comment on above: Performed By: #### L 500.2500, L100.0500 #### [facility] [address] [place], [address] RBC (Bld) [#/Vol] 5.24 10*6/uL Normal 4.6-6.2 [facility] Comment on above: Performed By: #### L 500.2500, L100.0500 #### [facility] [address] [place], [address] RDW SD 41.6 fl Normal 35.1-43.9 [facility] Comment on above: Performed By: #### L 500.2500, L100.0500 #### [facility] [address] [place], [address] WBC (Bld) [#/Vol] 6.2 10*3/uL Normal 4.4-11.0 [facility] Comment on above: Performed By: #### L 500.2500, L100.0500 #### [facility] [address] [place], [address] Carbon dioxide, total [Moles /volume] in Central venous bloodOrdered By: Michelle Mccall on 01-14-2025 CO2 [Moles/Vol] 26.4 mmol/L 21.0-32.0 [facility] Chloride assayOrdered By: Bonifacio Mccall on 01-14-2025 Chloride [Moles/Vol] 101 mmol/L 98-108 [facility] Erythrocyte distribution wid th ratioOrdered By: Michelle Mccall on 01-14-2025 Erythrocyte distribution width (RBC) [Ratio] 12.9 % 11.6-14.6 [facility] Erythrocyte distribution wid th standard deviationOrdered By: Michelle Mccall on 01-14-2025 Erythrocyte distribution width (RBC) [Entitic vol] 41.6 fL 35.1-43.9 [facility] Erythrocyte distribution width (RBC) [Ratio] 41.6 fl 35.1-43.9 [facility] Estimation of creatinine obed aranceOrdered By: Michelle Mccall on 01-14-2025 Estimated Creatinine Clearance Calc 100.60 ml/min 50-250 [facility] GFR/1.73 sq M.predicted xander g non-blacks MDRD (S/P/Bld) [Vol rate/Area]Ordered By: Michelle Mccall on 01-14-2025 Estimated GFR (MDRD) Non-Af Amer 75 >60 [facility] Comment on above: mL/min/1.73m2 CKD-EP I Creatinine Equation (2020) Glomerular filtration rate ( GFR) estimation/1.73 sq m using serum, plasma, or whole bOrdered By: Michelle Mccall on 01-14-2025 GFR/1.73 sq M.predicted among non-blacks MDRD (S/P/Bld) [Vol rate/Area] 75 mL/min/{1.73_m2} >60 [facility] Comment on above: mL/min/1.73m2 CKD-EP I Creatinine Equation (2020) Hematocrit Auto (Bld) [Volum e fraction]Ordered By: Michelle Mccall on 01-14-2025 Hematocrit (Bld) [Volume fraction] 46.4 % 40-54 [facility] Hemoglobin measurementOrdere d By: Michelle Mccall 01-14-2025 Hemoglobin (Bld) [Mass/Vol] 15.3 g/dL 13.0-16.5 [facility] MCV (mean corpuscular volume ) determinationOrdered By: Michelle Mccall 01-14-2025 MCV (RBC) [Entitic vol] 88.5 fL 80-94 [facility] Mean corpuscular hemoglobin (MCH) determinationOrdered By: Michelle Mccall on 01-14-2025 MCH (RBC) [Entitic mass] 29.2 pg 27.0-32.0 [facility] Mean corpuscular hemoglobin concentration (MCHC) determinationOrdered By: Michelle Mccall on 01-14-2025 MCHC (RBC) [Mass/Vol] 33.0 g/dL 32-36 [facility] Mean platelet volume determi nationOrdered By: Michelle Mccall on 01-14-2025 Platelet mean volume (Bld) [Entitic vol] 8.8 fL 6.2-12.0 [facility] Operative Reporton 5 Operative Report [facility] Medical Records Department [address] [place] [address] Operative Report 01/14/25 1615 MR#: [id number] Acct: [id number] Name: DELTA CHEEK Jr. Rep #: [id number] : 1975 49 From: Michelle Mccall MD PCP: Dr. Rogelio Colvin MD Status:REG [facility] Location: 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 Through this a Kumpe catheter and [...] superior aspect. Through the micropuncture sheath a [email or web address] wire was advanced the micropuncture sheath exchanged for an 8 Turkish sheath. Next intravascular ultrasound probe was advanced [...] common iliac (more content not included)... Normal [facility] Platelet countOrdered By: Bonifacio Mccall on 01-14-2025 Platelets (Bld) [#/Vol] 259 10*3/uL 150-450 [facility] Potassium (Unsp spec) [Mass/ Vol]Ordered By: Michelle Mccall on 01-14-2025 Potassium [Moles/Vol] 4.1 mmol/L 3.3-5.1 [facility] Potassium measurement (mass/ volume)Ordered By: Michelle Mccall on 01-14-2025 Potassium (Unsp spec) [Mass/Vol] 4.1 mmol/L 3.3-5.1 [facility] RBC Auto (Bld) [#/Vol]Ordere d By: Michelle Mccall on 01-14-2025 RBC (Bld) [#/Vol] 5.24 10*6/uL 4.6-6.2 [facility] Serum creatinine measurement (mass/volume)Ordered By: Michelle Mccall on 01-14-2025 Creatinine [Mass/Vol] 1.17 mg/dL 0.70-1.20 [facility] Serum glucose measurement (m ass/volume)Ordered By: Michelle Mccall on 01-14-2025 Glucose [Mass/Vol] 102 mg/dL High 70-99 [facility] Serum or plasma calcium rosangela urement (mass/volume)Ordered By: Michelle Mccall on 01-14-2025 Calcium [Mass/Vol] 9.4 mg/dL 7.6-11.0 [facility] Serum or plasma urea nitroge n measurement (mass/volume)Ordered By: Michelle Mccall on 01-14-2025 Urea nitrogen [Mass/Vol] 14 mg/dL 4-19 [facility] Sodium levelOrdered By: Michelle Mccall on 01-14-2025 Sodium [Moles/Vol] 138 mmol/L 133-145 [facility] White blood cell (WBC) count Ordered By: Michelle Mccall on 01-14-2025 WBC (Bld) [#/Vol] 6.2 10*3/uL 4.4-11.0 [facility] Lumbar Spine 2 or 3 Viewson 01-02-2025 Lumbar Spine 2 or 3 Views [facility] Imaging Services [address] [place] [address] Lumbar Spine 2 or 3 Views MR#: [id number] Acct: [id number] Name: ADIADELTA Gilberto Chan Rep #: [id number] : 1975 M 49 From: Delta Prakash PCP: Dr. Rogelio Colvin MD Status: REG CLI Study: Lumbar Spine 2 or 3 Views Date of Exam: Exam# [id number] Ordering Dr: Teena Jacques PROCEDURE: Lumbar spine [...] JORGE A Schmitt; Dr. Rogelio Colvin MD Carpenter'S Assistant: Signed Normal [facility] MR/BMS.BVSon 01-02-2025 MR/BMS.BVS [facility] [address] [place] [address] OFFICE VISIT Date of Service: 01/02/25 MR#: [id number] Acct: [id number] Name: DELTA CHEEK Jr. Rep #: [id number] : 1975 Provider: JORGE A Schmitt Age/Sex: 49/M Location: [facility] Status: Signed Intake Vital Signs 11/03/24 [...] of coor (more content not included)... Normal [facility] Ankle Brachial Indexon 12-12 Ankle Brachial Index [facility] [place] [address] Ankle Brachial Index 12/12/24 1028 MR#: [id number] Acct: [id number] Name: DELTA CHEEK Jr. Rep #: [id number] : 1975 49 From: Michelle Mccall MD Attending Dr: Dr. Rogelio Colvin MD Status: REG CLI Ordering Dr: Rogelio Colvin MD Date: 12/12/24 Location: [facility] Sex: M C Admitted: Reason For [...] By: [employer], RVT 12/15/24 1148 Date Michelle Mccall MD CC: Dr. Rogelio Colvin MD Date Dictated: 12/12/24 1028 Date Transcribed: 12/15/24 1148 Carpenter'S Assistant: Signed Normal [facility] HIP, UNI W/ Pelvis 2-3 Views on 11-24-2024 HIP, UNI W/ Pelvis 2-3 Views [facility] Imaging Services [address] [address] HIP, UNI W/ Pelvis 2-3 Views MR#: [id number] Acct: [id number] Name: DELTA CHEEK Jr. Rep #: [id number] : 1975 M 49 From: Bahman Don MD PCP: Dr. Rogelio Colvin MD Status: REG CLI Study: HIP, UNI W/ Pelvis 2-3 Views Date of Exam: Exam# [id number] Ordering Dr: Rogelio Colvin MD [id number] STUDY: X-RAY - PELVIS AND LEFT [...] 10:06 EST Reading Location ID and State: [facility] / [place] , Service support , CC: Dr. Rogelio Colvin MD Carpenter'S Assistant: Signed Normal [facility] Venous Duplex US, Unilateral on 11-24-2024 Venous Duplex US, Unilateral [facility] Cardiovascular Services [address] [place] [address] Venous Duplex US, Unilateral 11/24/24 1331 MR#: [id number] Acct: [id number] Name: DELTA CHEEK JrChristine Rep #: [id number] : 1975 49 From: Michelle Mccall MD Attending Dr: Dr. Michelle Mccall MD Status: REG C Ordering Dr: Michelle Mccall MD Date: 11/24/24 Location: [facility]S Sex: [...] echoes consistent with Chronic to Marsha [employer]. DVT. Normal venous flow noted. PopV is [...] Colvin Chi Performed By: Court Rod RVT 11/24/241738 Date Michelle Mccall MD CC: Dr. Michelle Mccall MD; Dr. Rogelio Colvin MD Date Dictated: 11/24/24 1331 Date Transcribed: 11/24/241738 Carpenter'S Assistant: Signed Normal [facility] 12 Lead EKGon 11-04-2024 12 Lead EKG [facility] Cardiovascular Services [address] [place] [address] 12 Lead EKG 11/04/24 0011 MR#: [id number] Acct: [id number] Name: ADIADELTA Gilberto Chan Rep #: [id number] : 1975 49 From: Zack Smiley MD [...] ECG Confirmed by SHERICE TRISTAN, ZACK ([id number]), development editor SARAH GOLDMAN ([id number]) on 11/06/2024 2:24:34 PM Referred By: Confirmed By: ZACK SMILEY MD 11/06/24 1424 Date Zack Smiley MD CC: Dr. Rogelio Colvin MD; Dr. Isrrael Garrett DO Signed Normal [facility] Abdomen/Pelvis W IV Cont ONL Yon 11-04-2024 Abdomen/Pelvis W IV Cont ONLY [facility] Imaging Services [address] [place] [address] Abdomen/Pelvis W IV Cont ONLY MR#: [id number] Acct: [id number] Name: DELTA CHEEK Jr. Rep #: [id number] : 1975 M 49 From: Marcin Augustin MD PCP: Dr. Rogelio Colvin MD Status: REG ER Study: Abdomen/Pelvis W IV Cont ONLY Date of Exam: Exam# [id number] Ordering Dr: Isrrael Garrett DO [id number] EXAM: CT ABDOMEN AND PELVIS WITH [...] Rogelio Colvin MD; Dr. Isrrael Garrett DO Carpenter'S Assistant: Signed Normal [facility] Absolute neutrophil countOrd ered By: Isrrael Garrett on 11-04-2024 Neutrophils (Bld) [#/Vol] 17.2 10*3/uL High 2.0-7.7 [facility] Albumin to globulin ratioOrd ered By: Isrrael Garrett on 11-04-2024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 ALP [Catalytic activity/Vol] 70 U/L 45-117 [facility] ALT [Catalytic activity/Vol] 38 U/L 16-61 [facility] CO2 [Moles/Vol] 27.0 mmol/L 21.0-32.0 [facility] Globulin (S) [Mass/Vol] 3.4 g/dL 2.2-4.2 [facility] Urea nitrogen/Creatinine [Mass ratio] 15.5 mg/mg 10-20 [facility] Laboratory - Hematology and Cell countsOrdered By: Dr. Colvin on 05-02-2023 Erythrocyte distribution width (RBC) [Entitic vol] 39.1 fL 35.1-43.9 [facility] Erythrocyte distribution width (RBC) [Ratio] 12.0 % 11.6-14.6 [facility] Immature granulocytes/100 WBC (Bld) 0.400 % 0.0-0.9 [facility] Comment on above: IG% - Immature Granu locytes (promyelocytes, myelocytes and metamyelocytes) > 1% indicates that a LEFT SHIFT is Present. MCH (RBC) [Entitic mass] 29.4 pg 27.0-32.0 [facility] Nucleated RBC/100 WBC (Bld) [Ratio] 0 % 0-5 [facility] MCHC Auto (RBC) [Mass/Vol]Or dered By: Dr. Colvin on 05-02-2023 MCHC (RBC) [Mass/Vol] 33.0 g/dL 32-36 [facility] No Panel InformationOrdered By: Dr. Colvin on 05-02-2023 Estimated GFR (MDRD) Amer 98 mL/min >60 [facility] Comment on above: GFR Calc Estimated GFR (MDRD) Non-Af Amer 81 mL/min >60 [facility] Comment on above: Non- GFR Calc Thyroid Stimulating Hormone (TSH) 1.58 uIU/mL 0.358-3.74 [facility] Platelets bldOrdered By: Dr. Colvin on 05-02-2023 Platelets (Bld) [#/Vol] 259 10*3/uL 150-450 [facility] Serum or plasma albumin rosangela urement (mass/volume)Ordered By: Dr. Colvin on 05-02-2023 Albumin [Mass/Vol] 3.8 g/dL 3.2-5.0 [facility] Serum or plasma albumin/glob ulin mass ratioOrdered By: Dr. Colvin on 05-02-2023 Albumin/Globulin [Mass ratio] 1.1 {ratio} 0.9-2.4 [facility] Serum or plasma calcium rosangela urement (mass/volume)Ordered By: Dr. Colvin on 05-02-2023 Calcium [Mass/Vol] 8.9 mg/dL 8.5-10.1 [facility] Serum or plasma creatinine m easurement (mass/volume)Ordered By: Dr. Colvin on 05-02-2023 Creatinine [Mass/Vol] 1.03 mg/dL 0.70-1.30 [facility] Comment on above: The validity of the calculated GFR & GFRAA in patients over 70 years has not been determined. Clinical correlation is essential. Serum or plasma urea nitroge n measurement (mass/volume)Ordered By: Dr. Colvin on 05-02-2023 Urea nitrogen [Mass/Vol] 16 mg/dL 7-18 [facility] Thin prep Papanicolaou smear with manual screeningOrdered By: Dr. Colvin on 05-02-2023 Thin prep Papanicolaou smear with manual screening 17 U/L 15-37 [facility] Thin prep Papanicolaou smear with manual screening 5 5-15 [facility] Basophil percentageOrdered B y: Dr. Mccall on 04-17-2023 Chloride [Moles/Vol] 108 mmol/L 98-107 [facility] Glucose [Mass/Vol] 101 mg/dL 74-106 [facility] Comment on above: Fasting Glucose resu lt from 100 to 125 mg/dL suggests IMPAIRED HOMEOSTASIS per A.D.A. criteria. Potassium [Moles/Vol] 4.0 mmol/L 3.5-5.1 [facility] Sodium [Moles/Vol] 139 mmol/L 136-145 [facility] WBC (Bld) [#/Vol] 4.1 10*3/uL 4.4-11.0 [facility] Blood erythrocytes count (nu mber/volume)Ordered By: Dr. Mccall on 04-17-2023 RBC (Bld) [#/Vol] 4.83 10*6/uL 4.6-6.2 [facility] Blood hemoglobin measurement (mass/volume)Ordered By: Dr. Mccall on 04-17-2023 Hemoglobin (Bld) [Mass/Vol] 14.4 g/dL 13.0-16.5 [facility] Blood platelet mean volumeOr dered By: Dr. Mccall on 04-17-2023 Platelet mean volume (Bld) [Entitic vol] 9.1 fL 6.2-12.0 [facility] Determination of erythrocyte mean corpuscular volume (MCV)Ordered By: Dr. Mccall on 04-17-2023 MCV (RBC) [Entitic vol] 89.9 fL 80-94 [facility] Hematocrit Auto (Bld) [Volum e fraction]Ordered By: Dr. Mccall on 04-17-2023 Hematocrit (Bld) [Volume fraction] 43.4 % 40-54 [facility] Laboratory - Chemistry and C hemistry - challengeOrdered By: Dr. Mccall on 04-17-2023 CO2 [Moles/Vol] 28.0 mmol/L 21.0-32.0 [facility] Urea nitrogen/Creatinine [Mass ratio] 17.3 mg/mg 10-20 [facility] Laboratory - Hematology and Cell countsOrdered By: Dr. Mccall on 04-17-2023 Erythrocyte distribution width (RBC) [Entitic vol] 40.0 fL 35.1-43.9 [facility] Erythrocyte distribution width (RBC) [Ratio] 12.3 % 11.6-14.6 [facility] MCH (RBC) [Entitic mass] 29.8 pg 27.0-32.0 [facility] MCHC Auto (RBC) [Mass/Vol]Or dered By: Dr. Mccall on 04-17-2023 MCHC (RBC) [Mass/Vol] 33.2 g/dL 32-36 [facility] No Panel InformationOrdered By: Dr. Mccall on 04-17-2023 Estimated Creatinine Clearance Calc 106.01 ml/min [facility] Estimated GFR (MDRD) Amer 104 mL/min >60 [facility] Comment on above: GFR Calc Estimated GFR (MDRD) Non-Af Amer 86 mL/min >60 [facility] Comment on above: Non- GFR Calc Platelets bldOrdered By: Dr. Mccall on 04-17-2023 Platelets (Bld) [#/Vol] 237 10*3/uL 150-450 [facility] Serum or plasma calcium rosangela urement (mass/volume)Ordered By: Dr. Mccall on 04-17-2023 Calcium [Mass/Vol] 8.7 mg/dL 8.5-10.1 [facility] Serum or plasma creatinine m easurement (mass/volume)Ordered By: Dr. Mccall on 04-17-2023 Creatinine [Mass/Vol] 0.98 mg/dL 0.70-1.30 [facility] Comment on above: The validity of the calculated GFR & GFRAA in patients over 70 years has not been determined. Clinical correlation is essential. Serum or plasma urea nitroge n measurement (mass/volume)Ordered By: Dr. Mccall on 04-17-2023 Urea nitrogen [Mass/Vol] 17 mg/dL 7-18 [facility] Thin prep Papanicolaou smear with manual screeningOrdered By: Dr. Mccall on 04-17-2023 Thin prep Papanicolaou smear with manual screening 3 5-15 [facility] No Panel InformationOrdered By: Rogelio Colvin on 03-06-2023 Influenza Types A,B Direct FA ([facility]) [facility] No Panel InformationOrdered By: Dr. Colvin on 03-06-2023 Influenza Types A,B Direct FA (JAMIE) [facility] RSV Ag EIAOrdered By: Rogelio armendariz on 03-06-2023 RSV Ag Immune stain Ql (Tiss) [facility] RSV Ag EIAOrdered By: Dr. Iliana armendariz on 03-06-2023 RSV Ag Immune stain Ql (Tiss) [facility] Absolute lymphocyte countOrd ered By: Dr. Gill on 01-11-2023 Lymphocytes Auto (Unsp spec) [#/Vol] 2.87 10*3/uL 0.83-4.51 [facility] Basophil percentageOrdered B y: Dr. Gill on 01-11-2023 Basophils/100 WBC (Bld) 0.6 % 0-1 [facility] Chloride [Moles/Vol] 103 mmol/L 98-107 [facility] Eosinophils/100 WBC (Bld) 1.8 % 0-5 [facility] Glucose [Mass/Vol] 134 mg/dL 74-106 [facility] Comment on above: Fasting Glucose resu lt greater than or equal to 126 mg/dL suggests DIABETES MELLITUS per A.D.A. criteria. Neutrophils (Bld) [#/Vol] 6.7 10*3/uL 2.0-7.7 [facility] Neutrophils/100 WBC (Bld) 61.4 % 47-70 [facility] Potassium [Moles/Vol] 3.4 mmol/L 3.5-5.1 [facility] Sodium [Moles/Vol] 139 mmol/L 136-145 [facility] WBC (Bld) [#/Vol] 10.8 10*3/uL 4.4-11.0 [facility] Basophil percentageOrdered B y: Dr. Mccall on 01-11-2023 Chloride [Moles/Vol] 105 mmol/L 98-107 [facility] Glucose [Mass/Vol] 110 mg/dL 74-106 [facility] Comment on above: Fasting Glucose resu lt from 100 to 125 mg/dL suggests IMPAIRED HOMEOSTASIS per A.D.A. criteria. Potassium [Moles/Vol] 3.9 mmol/L 3.5-5.1 [facility] Sodium [Moles/Vol] 140 mmol/L 136-145 [facility] WBC (Bld) [#/Vol] 6.3 10*3/uL 4.4-11.0 [facility] Blood erythrocytes count (nu mber/volume)Ordered By: Dr. Gill on 01-11-2023 RBC (Bld) [#/Vol] 4.73 10*6/uL 4.6-6.2 [facility] Blood erythrocytes count (nu mber/volume)Ordered By: Dr. Mccall on 01-11-2023 RBC (Bld) [#/Vol] 4.16 10*6/uL 4.6-6.2 [facility] Blood hemoglobin measurement (mass/volume)Ordered By: Dr. Gill on 01-11-2023 Hemoglobin (Bld) [Mass/Vol] 14.3 g/dL 13.0-16.5 [facility] Blood hemoglobin measurement (mass/volume)Ordered By: Dr. Mccall on 01-11-2023 Hemoglobin (Bld) [Mass/Vol] 12.3 g/dL 13.0-16.5 [facility] Blood lymphocytes/100 leukoc ytesOrdered By: Dr. Gill on 01-11-2023 Lymphocytes/100 WBC (Bld) 26.5 % 19-41 [facility] Blood monocytes/100 leukocyt esOrdered By: Dr. Gill on 01-11-2023 Monocytes/100 WBC (Bld) 9.4 % 0-10 [facility] Blood platelet mean volumeOr dered By: Dr. Gill on 01-11-2023 Platelet mean volume (Bld) [Entitic vol] 9.1 fL 6.2-12.0 [facility] Blood platelet mean volumeOr dered By: Dr. Mccall on 01-11-2023 Platelet mean volume (Bld) [Entitic vol] 8.7 fL 6.2-12.0 [facility] Determination of erythrocyte mean corpuscular volume (MCV)Ordered By: Dr. Gill on 01-11-2023 MCV (RBC) [Entitic vol] 90.9 fL 80-94 [facility] Determination of erythrocyte mean corpuscular volume (MCV)Ordered By: Dr. Mccall on 01-11-2023 MCV (RBC) [Entitic vol] 91.1 fL 80-94 [facility] Glucose Glucometer (BldC) [M ass/Vol]Ordered By: Dr. Gill on 01-11-2023 Glucose [Mass/Vol] 150 mg/dL 74-106 [facility] Comment on above: MANAGEMENT OF PATIEN T CARE PER NURSING PROTOCOL Hematocrit Auto (Bld) [Volum e fraction]Ordered By: Dr. Gill on 01-11-2023 Hematocrit (Bld) [Volume fraction] 43.0 % 40-54 [facility] Hematocrit Auto (Bld) [Volum e fraction]Ordered By: Dr. Mccall on 01-11-2023 Hematocrit (Bld) [Volume fraction] 37.9 % 40-54 [facility] Laboratory - Chemistry and C hemistry - challengeOrdered By: Dr. Gill on 01-11-2023 CO2 [Moles/Vol] 31.0 mmol/L 21.0-32.0 [facility] Urea nitrogen/Creatinine [Mass ratio] 15.8 mg/mg 08-31 [facility] Laboratory - Chemistry and C hemistry - challengeOrdered By: Dr. Mccall on 01-11-2023 CO2 [Moles/Vol] 30.0 mmol/L 21.0-32.0 [facility] Urea nitrogen/Creatinine [Mass ratio] 16.1 mg/mg 08-31 [facility] Laboratory - CoagulationOrde red By: Dr. Mccall on 01-11-2023 aPTT Coag (Bld) [Time] 51.2 s 24.1-36.2 [facility] Laboratory - Hematology and Cell countsOrdered By: Dr. Gill on 01-11-2023 Erythrocyte distribution width (RBC) [Entitic vol] 42.2 fL 35.1-43.9 [facility] Erythrocyte distribution width (RBC) [Ratio] 12.7 % 11.6-14.6 [facility] Immature granulocytes/100 WBC (Bld) 0.300 % 0.0-0.9 [facility] Comment on above: IG% - Immature Granu locytes (promyelocytes, myelocytes and metamyelocytes) > 1% indicates that a LEFT SHIFT is Present. MCH (RBC) [Entitic mass] 30.2 pg 27.0-32.0 [facility] Nucleated RBC/100 WBC (Bld) [Ratio] 0 % 0-5 [facility] Laboratory - Hematology and Cell countsOrdered By: Dr. Mccall on 01-11-2023 Erythrocyte distribution width (RBC) [Entitic vol] 42.2 fL 35.1-43.9 [facility] Erythrocyte distribution width (RBC) [Ratio] 12.8 % 11.6-14.6 [facility] MCH (RBC) [Entitic mass] 29.6 pg 27.0-32.0 [facility] MCHC Auto (RBC) [Mass/Vol]Or dered By: Dr. Gill on 01-11-2023 MCHC (RBC) [Mass/Vol] 33.3 g/dL 32-36 [facility] MCHC Auto (RBC) [Mass/Vol]Or dered By: Dr. Mccall on 01-11-2023 MCHC (RBC) [Mass/Vol] 32.5 g/dL 32-36 [facility] No Panel InformationOrdered By: Dr. Gill on 01-11-2023 Estimated Creatinine Clearance Calc 91.13 ml/min [facility] Estimated GFR (MDRD) Amer 88 mL/min >60 [facility] Comment on above: GFR Calc Estimated GFR (MDRD) Non-Af Amer 72 mL/min >60 [facility] Comment on above: Non- GFR Calc Troponin I High Sensitivity 7 pg/mL 3.0-78.0 [facility] Comment on above: Please Note: New Melissa t Units and Gender Specific Reference Ranges. For more information see Policy Stat Procedure [place] High Sensitivity Troponin (TNIH) and attachments. No Panel InformationOrdered By: Dr. Mccall on 01-11-2023 Estimated Creatinine Clearance Calc 103.89 ml/min [facility] Estimated GFR (MDRD) Amer 103 mL/min >60 [facility] Comment on above: GFR Calc Estimated GFR (MDRD) Non-Af Amer 85 mL/min >60 [facility] Comment on above: Non- GFR Calc Platelets bldOrdered By: Dr. Gill on 01-11-2023 Platelets (Bld) [#/Vol] 337 10*3/uL 150-450 [facility] Platelets bldOrdered By: Dr. Mccall on 01-11-2023 Platelets (Bld) [#/Vol] 215 10*3/uL 150-450 [facility] Serum or plasma calcium rosangela urement (mass/volume)Ordered By: Dr. Gill on 01-11-2023 Calcium [Mass/Vol] 8.8 mg/dL 8.5-10.1 [facility] Serum or plasma calcium rosangela urement (mass/volume)Ordered By: Dr. Mccall on 01-11-2023 Calcium [Mass/Vol] 8.6 mg/dL 8.5-10.1 [facility] Serum or plasma creatinine m easurement (mass/volume)Ordered By: Dr. Gill on 01-11-2023 Creatinine [Mass/Vol] 1.14 mg/dL 0.70-1.30 [facility] Comment on above: The validity of the calculated GFR & GFRAA in patients over 70 years has not been determined. Clinical correlation is essential. Serum or plasma creatinine m easurement (mass/volume)Ordered By: Dr. Mccall on 01-11-2023 Creatinine [Mass/Vol] 1.00 mg/dL 0.70-1.30 [facility] Comment on above: The validity of the calculated GFR & GFRAA in patients over 70 years has not been determined. Clinical correlation is essential. Serum or plasma urea nitroge n measurement (mass/volume)Ordered By: Dr. Gill on 01-11-2023 Urea nitrogen [Mass/Vol] 18 mg/dL 7-18 [facility] Serum or plasma urea nitroge n measurement (mass/volume)Ordered By: Dr. Mccall on 01-11-2023 Urea nitrogen [Mass/Vol] 16 mg/dL 7-18 [facility] Thin prep Papanicolaou smear with manual screeningOrdered By: Dr. Gill on 01-11-2023 Thin prep Papanicolaou smear with manual screening 5 5-15 [facility] Thin prep Papanicolaou smear with manual screeningOrdered By: Dr. Mccall on 01-11-2023 Thin prep Papanicolaou smear with manual screening 5 - [facility] Absolute lymphocyte countOrd ered By: Teena Reynolds on 01-10-2023 Lymphocytes Auto (Unsp spec) [#/Vol] 1.56 10*3/uL 0.83-4.51 [facility] Basophil percentageOrdered B y: Teena Reynolds on 01-10-2023 Basophils/100 WBC (Bld) 0.7 % 0-1 [facility] Eosinophils/100 WBC (Bld) 2.6 % 0-5 [facility] [facility] (Bld) [#/Vol] 3.1 10*3/uL 2.0-7.7 [facility] Neutrophils/100 WBC (Bld) 57.9 % 47-70 [facility] Blood lymphocytes/100 leukoc ytesOrdered By: Teena Reynolds on 01-10-2023 Lymphocytes/100 WBC (Bld) 29.2 % 19-41 [facility] Blood monocytes/100 leukocyt esOrdered By: Teena Reynolds on 01-10-2023 Monocytes/100 WBC (Bld) 9.2 % 0-10 [facility] Laboratory - Hematology and Cell countsOrdered By: Teena Reynolds on 01-10-2023 Immature granulocytes/100 WBC (Bld) 0.400 % 0.0-0.9 [facility] Comment on above: IG% - Immature Granu locytes (promyelocytes, myelocytes and metamyelocytes) > 1% indicates that a LEFT SHIFT is Present. Nucleated RBC/100 WBC (Bld) [Ratio] 0 % 0-5 [facility] No Panel InformationOrdered By: Dr. Mccall on 01-10-2023 Activated Clotting Time 215 sec 74-137 [facility] INR in Blood by Coagulation assayOrdered By: Teena Reynolds on 01-09-2023 INR Coag (Bld) [Relative time] 1.5 {INR} [facility] Laboratory - CoagulationOrde red By: Teena Reynolds on 01-09-2023 PT Coag (PPP) [Time] 17.5 s 11.7-14.9 [facility] Absolute lymphocyte countOrd ered By: Kirstin Javier on 12-31-2022 Lymphocytes Auto (Unsp spec) [#/Vol] 1.34 10*3/uL 0.83-4.51 [facility] Basophil percentageOrdered B y: Kirstin Javier on 12-31-2022 Basophil percentage 0-5 SEEN /hpf 0-5 [facility] Basophils/100 WBC (Bld) 0.3 % 0-1 [facility] Chloride [Moles/Vol] 106 mmol/L 98-107 [facility] Eosinophils/100 WBC (Bld) 1.2 % 0-5 [facility] Glucose [Mass/Vol] 130 mg/dL 74-106 [facility] Comment on above: Fasting Glucose resu lt greater than or equal to 126 mg/dL suggests DIABETES MELLITUS per A.D.A. criteria. Neutrophils (Bld) [#/Vol] 8.7 10*3/uL 2.0-7.7 [facility] Neutrophils/100 WBC (Bld) 78.1 % 47-70 [facility] Potassium [Moles/Vol] 4.1 mmol/L 3.5-5.1 [facility] Sodium [Moles/Vol] 140 mmol/L 136-145 [facility] WBC (Bld) [#/Vol] 11.1 10*3/uL 4.4-11.0 [facility] Bilirubin Test strip Ql (U)O rdered By: Kirstin Javier on 12-31-2022 Bilirubin Ql (U) Negative Negative [facility] Blood erythrocytes count (nu mber/volume)Ordered By: Kirstin Javier on 12-31-2022 RBC (Bld) [#/Vol] 5.08 10*6/uL 4.6-6.2 [facility] Blood hemoglobin measurement (mass/volume)Ordered By: Kirstin Javier on 12-31-2022 Hemoglobin (Bld) [Mass/Vol] 15.4 g/dL 13.0-16.5 [facility] Blood lymphocytes/100 leukoc ytesOrdered By: Kirstin Javier on 12-31-2022 Lymphocytes/100 WBC (Bld) 12.1 % 19-41 [facility] Blood monocytes/100 leukocyt esOrdered By: Kirstin Javier on 12-31-2022 Monocytes/100 WBC (Bld) 8.0 % 0-10 [facility] Blood platelet mean volumeOr dered By: Kirstin Javier on 12-31-2022 Platelet mean volume (Bld) [Entitic vol] 9.1 fL 6.2-12.0 [facility] Determination of erythrocyte mean corpuscular volume (MCV)Ordered By: Kirstin Javier on 12-31-2022 MCV (RBC) [Entitic vol] 89.6 fL 80-94 [facility] Hematocrit Auto (Bld) [Volum e fraction]Ordered By: Kirstin Javier on 12-31-2022 Hematocrit (Bld) [Volume fraction] 45.5 % 40-54 [facility] Ketones Test strip Ql (U)Ord ered By: Kirstin Javier on 12-31-2022 Ketones Ql (U) Negative Negative [facility] Laboratory - Chemistry and C hemistry - challengeOrdered By: Kirstin Javier on 12-31-2022 CK [Catalytic activity/Vol] 26 U/L 39-308 [facility] CO2 [Moles/Vol] 28.0 mmol/L 21.0-32.0 [facility] Urea nitrogen/Creatinine [Mass ratio] 26.6 mg/mg 10-20 [facility] Laboratory - Hematology and Cell countsOrdered By: Kirstin Javier on 12-31-2022 Erythrocyte distribution width (RBC) [Entitic vol] 41.0 fL 35.1-43.9 [facility] Erythrocyte distribution width (RBC) [Ratio] 12.5 % 11.6-14.6 [facility] Immature granulocytes/100 WBC (Bld) 0.300 % 0.0-0.9 [facility] Comment on above: IG% - Immature Granu locytes (promyelocytes, myelocytes and metamyelocytes) > 1% indicates that a LEFT SHIFT is Present. MCH (RBC) [Entitic mass] 30.3 pg 27.0-32.0 [facility] Nucleated RBC/100 WBC (Bld) [Ratio] 0 % 0-5 [facility] MCHC Auto (RBC) [Mass/Vol]Or dered By: Kirstin Javier on 12-31-2022 MCHC (RBC) [Mass/Vol] 33.8 g/dL 32-36 [facility] Mucus LM Ql (Urine sed)Order ed By: Kirstin Javier on 12-31-2022 Mucus Ql (Urine sed) RARE /hpf [facility] Nitrite Test strip Ql (U)Ord ered By: Kirstin Javier on 12-31-2022 Nitrite Ql (U) Negative Negative [facility] No Panel InformationOrdered By: Kirstin Javier on 12-31-2022 Estimated Creatinine Clearance Calc 106.01 ml/min [facility] Estimated GFR (MDRD) Amer 105 mL/min >60 [facility] Comment on above: GFR Calc Estimated GFR (MDRD) Non-Af Amer 87 mL/min >60 [facility] Comment on above: Non- GFR Calc Platelets bldOrdered By: Melvina Javier on 12-31-2022 Platelets (Bld) [#/Vol] 182 10*3/uL 150-450 [facility] Protein Test strip Ql (U)Ord ered By: Kirstin Javier on 12-31-2022 Protein Ql (U) 15 mg/dl Negative [facility] Serum or plasma calcium rosangela urement (mass/volume)Ordered By: Kirstin Javier on 12-31-2022 Calcium [Mass/Vol] 9.1 mg/dL 8.5-10.1 [facility] Serum or plasma creatinine m easurement (mass/volume)Ordered By: Kirstin Javier on 12-31-2022 Creatinine [Mass/Vol] 0.98 mg/dL 0.70-1.30 [facility] Comment on above: The validity of the calculated GFR & GFRAA in patients over 70 years has not been determined. Clinical correlation is essential. Serum or plasma urea nitroge n measurement (mass/volume)Ordered By: Kirstin Javier on 12-31-2022 Urea nitrogen [Mass/Vol] 26 mg/dL 7-18 [facility] Squamous epithelial cells de tection in urine sediment by light microscopyOrdered By: Kirstin Javier on 12-31-2022 Epithelial cells.squamous LM Ql (Urine sed) 0-5 SEEN /hpf 0-5 [facility] Thin prep Papanicolaou smear with manual screeningOrdered By: Kirstin Javier on 12-31-2022 Thin prep Papanicolaou smear with manual screening 6 5-15 [facility] Urine blood detectionOrdered By: Kirstin Javier on 12-31-2022 RBC Ql (U) 10 /ul Negative [facility] RBC Ql (U) 0-5 SEEN /hpf 0-5 [facility] Urine clarityOrdered By: Melvina Javier on 12-31-2022 Clarity (U) Sl. Cloudy Clear [facility] Urine color determinationOrd ered By: Kirstin Javier on 12-31-2022 Color (U) Yellow Yellow [facility] Urine glucose detectionOrder ed By: Kirstin Javier on 12-31-2022 Glucose Ql (U) Normal mg/dl Normal [facility] Urine leukocyte esterase det ection by dipstickOrdered By: Kirstin Javier on 12-31-2022 Leukocyte esterase Test strip Ql (U) Negative Negative [facility] Urine pHOrdered By: Kirstin vargas on 12-31-2022 pH (U) 5.0 [pH] 5.0 - 8.0 [facility] Urine sediment bacteria coun t by microscopy (number/high power field)Ordered By: Kirstin Javier on 12-31-2022 Bacteria LM.HPF (Urine sed) [#/Area] RARE /hpf None Seen [facility] Urine specific gravity measu rementOrdered By: Kirstin Javier on 12-31-2022 Specific gravity (U) [Rel density] 1.025 1.002-1.030 [facility] Urobilinogen Auto test strip Ql (U)Ordered By: Kirstin Javier on 12-31-2022 Urobilinogen Ql (U) 1 mg/dl Normal [facility] EMERGENCY REPORTon [address] EMERGENCY REPORT [facility] EMERGENCY ROOM REPORT NAME ACCOUNT SEX AGE ADMIT DISCHARGE PT MED. RECORD# NUMBER DATE DATE TYPE ADIA [id number] M 47 12/04/22 12/04/22 3 DELTA Macias [id number] ROOM: ER DATE OF : 1975 DICTATING PHYSICIAN: Cj Leiva CHIEF COMPLAINT: Back pain. HISTORY OF PRESENT ILLNESS: The patient states that 3 days ago on Thursday, December 01, 2022, he moved a heavy [...] and Percocet, which were called in to [facility] in [place]. Limited activity over the next 2 to 4 days and then as tolerated. I recommended follow-up with his family physician or Orthopedics for further management, returning if symptoms worsen. Dictated By: Cj Leiva MD 12/04/22 11:56 JOB #: [id number] Transcribed By: richmond 12/05/22 18:18 Electronically signed by: MAC Leiva M.D. 12/08/22 07:37 Page 2 of 2 DELTA CHEEK Emergency Room Report Normal [facility] Absolute lymphocyte countOrd ered By: Dr. Jeffery on 12-06-2022 Lymphocytes Auto (Unsp spec) [#/Vol] 0.72 10*3/uL 0.83-4.51 [facility] Basophil percentageOrdered B y: Jacek Raygoza on 12-06-2022 Basophil percentage 0 SEEN /hpf 0-5 [facility] Basophil percentageOrdered B y: Dr. Jeffery on 12-06-2022 Basophils/100 WBC (Bld) 0.1 % 0-1 [facility] Chloride [Moles/Vol] 109 mmol/L 98-107 [facility] Eosinophils/100 WBC (Bld) 0.0 % 0-5 [facility] Glucose [Mass/Vol] 127 mg/dL 74-106 [facility] Comment on above: Fasting Glucose resu lt greater than or equal to 126 mg/dL suggests DIABETES MELLITUS per A.D.A. criteria. Neutrophils (Bld) [#/Vol] 8.7 10*3/uL 2.0-7.7 [facility] Neutrophils/100 WBC (Bld) 90.1 % 47-70 [facility] Potassium [Moles/Vol] 4.0 mmol/L 3.5-5.1 [facility] Sodium [Moles/Vol] 140 mmol/L 136-145 [facility] WBC (Bld) [#/Vol] 9.7 10*3/uL 4.4-11.0 [facility] Bilirubin Test strip Ql (U)O rdered By: Jacek Raygoza on 12-06-2022 Bilirubin Ql (U) Negative Negative [facility] Blood erythrocytes count (nu mber/volume)Ordered By: Dr. Jeffery on 12-06-2022 RBC (Bld) [#/Vol] 5.02 10*6/uL 4.6-6.2 [facility] Blood hemoglobin measurement (mass/volume)Ordered By: Dr. Jeffery on 12-06-2022 Hemoglobin (Bld) [Mass/Vol] 14.6 g/dL 13.0-16.5 [facility] Blood lymphocytes/100 leukoc ytesOrdered By: Dr. Jeffery on 12-06-2022 Lymphocytes/100 WBC (Bld) 7.4 % 19-41 [facility] Blood monocytes/100 leukocyt esOrdered By: Dr. Jeffery on 12-06-2022 Monocytes/100 WBC (Bld) 1.9 % 0-10 [facility] Blood platelet mean volumeOr dered By: Dr. Jeffery on 12-06-2022 Platelet mean volume (Bld) [Entitic vol] 9.4 fL 6.2-12.0 [facility] Determination of erythrocyte mean corpuscular volume (MCV)Ordered By: Dr. Jeffery on 12-06-2022 MCV (RBC) [Entitic vol] 86.3 fL 80-94 [facility] Hematocrit Auto (Bld) [Volum e fraction]Ordered By: Dr. Jeffery on 12-06-2022 Hematocrit (Bld) [Volume fraction] 43.3 % 40-54 [facility] Ketones Test strip Ql (U)Ord ered By: Jacek Raygoza on 12-06-2022 Ketones Ql (U) Negative Negative [facility] Laboratory - Chemistry and C hemistry - challengeOrdered By: Dr. Jeffery on 12-06-2022 CO2 [Moles/Vol] 25.0 mmol/L 21.0-32.0 [facility] Urea nitrogen/Creatinine [Mass ratio] 15.5 mg/mg 10-20 [facility] Laboratory - Hematology and Cell countsOrdered By: Dr. Jeffery on 12-06-2022 Erythrocyte distribution width (RBC) [Entitic vol] 38.5 fL 35.1-43.9 [facility] Erythrocyte distribution width (RBC) [Ratio] 12.4 % 11.6-14.6 [facility] Immature granulocytes/100 WBC (Bld) 0.500 % 0.0-0.9 [facility] Comment on above: IG% - Immature Granu locytes (promyelocytes, myelocytes and metamyelocytes) > 1% indicates that a LEFT SHIFT is Present. MCH (RBC) [Entitic mass] 29.1 pg 27.0-32.0 [facility] Nucleated RBC/100 WBC (Bld) [Ratio] 0 % 0-5 [facility] MCHC Auto (RBC) [Mass/Vol]Or dered By: Dr. Jeffery on 12-06-2022 MCHC (RBC) [Mass/Vol] 33.7 g/dL 32-36 [facility] Mucus LM Ql (Urine sed)Order ed By: Jacek Raygoza on 12-06-2022 Mucus Ql (Urine sed) 0 SEEN /hpf [facility] Nitrite Test strip Ql (U)Ord ered By: Jacek Raygoza on 12-06-2022 Nitrite Ql (U) Negative Negative [facility] No Panel InformationOrdered By: Dr. Jeffery on 12-06-2022 Estimated Creatinine Clearance Calc 89.56 ml/min [facility] Estimated GFR (MDRD) Amer 86 mL/min >60 [facility] Comment on above: GFR Calc Estimated GFR (MDRD) Non-Af Amer 71 mL/min >60 [facility] Comment on above: Non- GFR Calc Platelets bldOrdered By: Dr. Jeffery on 12-06-2022 Platelets (Bld) [#/Vol] 230 10*3/uL 150-450 [facility] Protein Test strip Ql (U)Ord ered By: Jacek Raygoza on 12-06-2022 Protein Ql (U) Negative Negative [facility] Serum or plasma calcium rosangela urement (mass/volume)Ordered By: Dr. Jeffery on 12-06-2022 Calcium [Mass/Vol] 8.8 mg/dL 8.5-10.1 [facility] Serum or plasma creatinine m easurement (mass/volume)Ordered By: Dr. Jeffery on 12-06-2022 Creatinine [Mass/Vol] 1.16 mg/dL 0.70-1.30 [facility] Comment on above: The validity of the calculated GFR & GFRAA in patients over 70 years has not been determined. Clinical correlation is essential. Serum or plasma urea nitroge n measurement (mass/volume)Ordered By: Dr. Jeffery on 12-06-2022 Urea nitrogen [Mass/Vol] 18 mg/dL 7-18 [facility] Squamous epithelial cells de tection in urine sediment by light microscopyOrdered By: Jacek Raygoza on 12-06-2022 Epithelial cells.squamous LM Ql (Urine sed) 0 SEEN /hpf 0-5 [facility] Thin prep Papanicolaou smear with manual screeningOrdered By: Dr. Jeffery on 12-06-2022 Thin prep Papanicolaou smear with manual screening 6 5-15 [facility] Urine blood detectionOrdered By: Jacek Raygoza on 12-06-2022 RBC Ql (U) Negative Negative [facility] RBC Ql (U) 0 SEEN /hpf 0-5 [facility] Urine clarityOrdered By: Yevgeniy Raygoza on 12-06-2022 Clarity (U) Clear Clear [facility] Urine color determinationOrd ered By: Jacek Raygoza on 12-06-2022 Color (U) Yellow Yellow [facility] Urine glucose detectionOrder ed By: Jacek Raygoza on 12-06-2022 Glucose Ql (U) Normal mg/dl Normal [facility] Urine leukocyte esterase det ection by dipstickOrdered By: Jacek Raygoza on 12-06-2022 Leukocyte esterase Test strip Ql (U) Negative Negative [facility] Urine pHOrdered By: Jacek zamorano on 12-06-2022 pH (U) 8.0 [pH] 5.0 - 8.0 [facility] Urine sediment bacteria coun t by microscopy (number/high power field)Ordered By: Jacek Raygoza on 12-06-2022 Bacteria LM.HPF (Urine sed) [#/Area] 0 /[HPF] None Seen [facility] Urine specific gravity measu rementOrdered By: Jacek Raygoza on 12-06-2022 Specific gravity (U) [Rel density] 1.015 1.002-1.030 [facility] Urobilinogen Auto test strip Ql (U)Ordered By: Jacek Raygoza on 12-06-2022 Urobilinogen Ql (U) Normal mg/dl Normal [facility] CT LUMBAR W/O CONTRASTon CT LUMBAR W/O CONTRAST [place] [address] Patient: DELTA CHEEK Phone#: : 1975 Age: 47 Gender: M Pt. Type: ER Account: [id number] Location: [facility] Ordering: CJ LEIVA Exam Date: 12/04/2022/9:42 Family Phys: ROGELIO COLVIN Charge Code: 793314 Physician: Butler Order #: [id number] Dose#: 28.9 mGy PROCEDURE: CT LUMBAR SPINE [...] Dunn MD on 12/04/2022 at 10:28 Normal [facility] BASIC METABOLIC PANELon 05-2 Anion gap [Moles/Vol] 9 mmol/L Low 10 - 20 [facility] Comment on above: Performed By: #### B MP #### [address] [address] Calcium [Mass/Vol] 8.9 mg/dL Normal 8.6 - 10.3 [facility] Comment on above: Performed By: #### B MP #### [address] [address] Chloride [Moles/Vol] 108 mmol/L High 98 - 107 [facility] Comment on above: Performed By: #### B MP #### [address] [address] Creatinine [Mass/Vol] 0.93 mg/dL Normal 0.50 - 1.30 [facility] Comment on above: Performed By: #### B MP #### [address] [address] eGFR MALE >90 Normal >90 [facility] Comment on above: Result Comment: CALC ULATIONS OF ESTIMATED GFR ARE PERFORMED USING THE 2020 CKD-EPI STUDY REFIT EQUATION WITHOUT THE RACE VARIABLE FOR THE IDMS-TRACEABLE CREATININE METHODS. https://jasn.asnjournals.org/content/early//ASN.019 3405219 Performed By: #### B MP #### [address] [address] Glucose [Mass/Vol] 89 mg/dL Normal 74 - 99 [facility] Comment on above: Performed By: #### B MP #### [address] [address] HCO3 (Bld) [Moles/Vol] 27 mmol/L Normal 21 - 32 [facility] Comment on above: Performed By: #### B MP #### [address] [address] Potassium [Moles/Vol] 3.7 mmol/L Normal 3.5 - 5.3 [facility] Comment on above: Performed By: #### B MP #### [address] [address] Sodium [Moles/Vol] 140 mmol/L Normal 136 - 145 [facility] Comment on above: Performed By: #### B MP #### [address] [address] Urea nitrogen [Mass/Vol] 13 mg/dL Normal 6 - 23 [facility] Comment on above: Performed By: #### B MP #### [address] [address] BNPon 04-04-2022 Natriuretic peptide B (Bld) [Mass/Vol] 16 pg/mL Normal 0 - 99 [facility] Comment on above: Result Comment: . <1 00 pg/mL - Heart failure unlikely 100-299 pg/mL - Intermediate probability of acute heart . failure exacerbation. Correlate with clinical . context and patient history. >=300 pg/mL - Heart Failure likely. Correlate with clinical . context and patient history. BNP testing is performed using different testing methodology at [facility] than at other [facility]. Direct result comparisons should only be made within the same method. Performed By: #### B NP2 #### [address] [address] CBC AND DIFFERENTIALon 04-04 Basophils (Bld) [#/Vol] 0.10 10*3/uL Normal 0.00 - 0.1 0 [facility] Comment on above: Performed By: #### C BCDF #### [address] [address] Basophils/100 WBC (Bld) 1.1 % Normal 0.0 - 2.0 [facility] Comment on above: Performed By: #### C BCDF #### [address] [address] Eosinophils (Bld) [#/Vol] 0.10 10*3/uL Normal 0.00 - 0.70 [facility] Comment on above: Performed By: #### C BCDF #### [address] [address] Eosinophils/100 WBC (Bld) 2.0 % Normal 0.0 - 6.0 [facility] Comment on above: Performed By: #### C BCDF #### [address] [address] Erythrocyte distribution width (RBC) [Ratio] 12.9 % Normal 11.5 - 14.5 [facility] Comment on above: Performed By: #### C BCDF #### [address] [address] Hematocrit (Bld) [Volume fraction] 44.6 % Normal 41.0 - 52.0 [facility] Comment on above: Performed By: #### C BCDF #### [address] [address] Hemoglobin (Bld) [Mass/Vol] 15.0 g/dL Normal 13.5 - 17.5 [facility] Comment on above: Performed By: #### C BCDF #### [address] [address] Lymphocytes (Bld) [#/Vol] 1.80 10*3/uL Normal 1.20 - 4.80 [facility] Comment on above: Performed By: #### C BCDF #### [address] [address] Lymphocytes/100 WBC (Bld) 28.9 % Normal 13.0 - 44.0 [facility] Comment on above: Performed By: #### C BCDF #### [address] [address] MCHC (RBC) [Mass/Vol] 33.7 g/dL Normal 32.0 - 36.0 [facility] Comment on above: Performed By: #### C BCDF #### [address] [address] MCV (RBC) [Entitic vol] 86 fL Normal 80 - 100 [facility] Comment on above: Performed By: #### C BCDF #### [address] [address] Monocytes (Bld) [#/Vol] 0.50 10*3/uL Normal 0.10 - 1.0 0 [facility] Comment on above: Performed By: #### C BCDF #### [address] [address] Monocytes/100 WBC (Bld) 8.6 % Normal 2.0 - 10.0 [facility] Comment on above: Performed By: #### C BCDF #### [address] [address] Neutrophils (Bld) [#/Vol] 3.60 10*3/uL Normal 1.20 - 7.70 [facility] Comment on above: Result Comment: Perc ent differential counts (%) should be interpreted in the context of the absolute cell counts (cells/L). Performed By: #### C BCDF #### [address] [address] Neutrophils/100 WBC (Bld) 59.4 % Normal 40.0 - 80.0 [facility] Comment on above: Performed By: #### C BCDF #### [address] [address] NUCLEATED RBC 0.1 /100 WBC Normal [facility] Comment on above: Performed By: #### C BCDF #### [address] [address] Platelets (Bld) [#/Vol] 222 10*3/uL Normal 150 - 450 [facility] Comment on above: Performed By: #### C BCDF #### [address] [address] RBC 5.16 x10E12/L Normal 4.50 - 5.90 [facility] Comment on above: Performed By: #### C BCDF #### [address] [address] WBC (Bld) [#/Vol] 6.1 10*3/uL Normal 4.4 - 11.3 [facility] Comment on above: Performed By: #### C BCDF #### [address] [address] CHEST 1 VIEWon 04-04-2022 CHEST 1 VIEW Patient Name: DELTA CHEEK STUDY: CHEST 1 VIEW; 04/04/2022 7:45 pm INDICATION: Chest Pain . COMPARISON: Chest radiograph dated 05/13/2019. ACCESSION NUMBER(S): [id number] ORDERING CLINICIAN: MIA STEIN FINDINGS: CARDIOMEDIASTINAL SILHOUETTE: Cardiomediastinal silhouette is normal in size and configuration. LUNGS/PLEURA: There are no consolidations.The re are no pleural effusions. There is no demonstrated pneumothorax. BONES: Visualized osseous structures are intact. IMPRESSION: 1. No evidence of acute cardiopulmonary process. Electronically signed by: ROSITA NAGEL DO Normal [facility] Electrocardiogram 12 Leadon 04-04-2022 Electrocardiogram 12 Lead Ventricular Rate 71 Atrial Rate 71 P-R Interval 152 QRS Duration 78 Q-T Interval 362 QTC Calculation(Bazett ) 393 P Bennett 52 R Bennett 53 T Bennett 28 QRS Count 11 Q Onset 219 P Onset 143 P Offset 200 T Offset 400 QTC Fredericia 383 Diagnosis Class Normal Diagnosis Please see physician note for formal interpretation confirmed by Scribe Confirmed by Yonathan Frausto () on 04/11/2022 12:40:14 PM Normal [facility] MAGNESIUMon 04-04-2022 Magnesium [Mass/Vol] 2.19 mg/dL Normal 1.60 - 2.40 [facility] Comment on above: Performed By: #### M G #### [address] [place] [address] Provider Note - ED v3on 03-13 Provider [...] results: Troponin I, High Sensitivity Trending View [id number] 19:42:00 04-Apr-2022 18:56:00 Troponin I, High Sensitivity3 [...] SIGNS: T PRBP SpO2O2(LPM) %FiO2 Method 04-Apr-2022 20:30:[id number]/7 9 97 room air, no respiratory support 04-Apr-2022 19:30:00-8687608/8 7 97 room air, no respiratory support 04-Apr-2022 19:17:00-8272193/1 15 97 room air, no respiratory support 04-Apr-2022 18:54:[id number] 5 98 room air, no respiratory support 04-Apr-2022 18:23:[id number] 57/99 100 room air, no respiratory support MDM MDM/ED COURSE: PMH: Reviewed PSH: Reviewed Social [...] Suarez. He is placed on a continuous front desk monitor with pulse oximetry monitoring. Old records [...] for follow (more content not included)... Normal [facility] TROPONIN I, HIGH SENSITIVITY on 04-04-2022 TROPONIN I, HIGH SENSITIVITY 3 ng/L Normal 0 - 20 [facility] Comment on above: Result Comment: . [...] performed using a different testing methodology at [facility] than at other [facility]. Direct result comparisons should only be made within the same method. Performed By: #### [facility] #### [place] [address] TROPONIN I, HIGH SENSITIVITY 3 ng/L Normal 0 - 20 [facility] Comment on above: Result Comment: . [...] performed using a different testing methodology at [facility] than at other [facility]. Direct result comparisons should only be made within the same method. Performed By: #### [facility] #### [address] [address] EDIEOVtay 06-13-2021 CNOV Office Visit (UROLMN) -------- DELTA CHEEK JR. ([id number]) 1975 M Date Time Provider Department 06/13/21 10:15 AM FRAN ARCHIBALD During your visit today, we recorded the following information about you: Pulse Blood pressure Weight 78/minute 137/96 113.4 kg Fran Archibald MD 06/13/2021 11:21 AM Signed [facility] NEW PATIENT HISTORY AND PHYSICAL EXAM PATIENT INFO: Delta Cheek Jr. 45 year old REFERRING M.D.: Scar Mensah MD ([facility]) [address] [place] [id number] This consult was requested by Scar Mensah MD for an opinion regarding peyronies disease, and my final recommendations will be communicated to the requesting health care provider by way of the shared medical record for internal providers or letter via the [employer] for external providers. HISTORY Chief [...] (more content not included)... Normal [facility] C Urineon 05-15-2019 C Urine Final Report: No growth Normal [facility] Comment on above: Performed By: #### 2 [id number] #### [facility] [employer] Subsection [address] [place] [address] BMPon 05-13-2019 Anion gap [Moles/Vol] 14 mmol/L Normal 10-20 [facility] Comment on above: Performed By: #### 2 [id number] #### [facility] [employer] [address] [place] [address] Calcium [Mass/Vol] 9.3 mg/dL Normal 8.6-10.3 [facility] Comment on above: Performed By: #### 2 [id number] #### [facility] [employer] [address] [place] [address] Chloride [Moles/Vol] 102 mmol/L Normal 98-107 [facility] Comment on above: Performed By: #### 2 [id number] #### [facility] [employer] [address] [place] [address] CO2 [Moles/Vol] 24.0 mmol/L Normal 21.0-32.0 [facility] Comment on above: Performed By: #### 2 [id number] #### [facility] [employer] [address] [place] [address] Creatinine [Mass/Vol] 1.1 mg/dL Normal 0.5-1.3 [facility] Comment on above: Performed By: #### 2 148748 #### [facility] [employer] [address] [place] [address] Glucose [Mass/Vol] 121 mg/dL High 70-99 [facility] Comment on above: Performed By: #### 2 [id number] #### [facility] [employer] [address] [place] [address] Potassium [Moles/Vol] 3.3 mmol/L Low 3.5-5.3 [facility] Comment on above: Performed By: #### 2 109990 #### [facility] [employer] [address] [place] [address] Sodium [Moles/Vol] 136 mmol/L Normal 136-145 [facility] Comment on above: Performed By: #### 2 285295 #### [facility] [employer] [address] [place] [address] Urea nitrogen [Mass/Vol] 11 mg/dL Normal 6-[address] [facility] Comment on above: Performed By: #### 2 [id number] #### [facility] [employer] [address] [place] [address] Urea nitrogen/Creatinine [Mass ratio] 10.0 ratio Normal 5.4-30.[address] [facility] Comment on above: Performed By: #### 2 [id number] #### [facility] [employer] [address] [place] [address] CBC w/ Auto Diffon 9 Erythrocyte distribution width (RBC) [Ratio] 12.8 % Normal 11.5-14.[address] [facility] Comment on above: Performed By: #### 2 [id number] #### [facility] [employer] [address] [place] [address] Hematocrit (Bld) [Volume fraction] 45.0 % Normal 42.0-52.[address] [facility] Comment on above: Performed By: #### 2 334436 #### [facility] [employer] [address] [place] [address] Hemoglobin (Bld) [Mass/Vol] 15.3 g/dL Normal 13.5-18.[address] [facility] Comment on above: Performed By: #### 2 991838 #### [facility] [employer] [address] [place] [address] MCH (RBC) [Entitic mass] 29.3 pg Normal 27.0-31.[address] [facility] Comment on above: Performed By: #### 2 762588 #### [facility] [employer] [address] [place] [address] MCHC (RBC) [Mass/Vol] 34.1 g/dL Normal 33.0-37.0 [facility] Comment on above: Performed By: #### 2 313295 #### [facility] [employer] [address] [place] [address] MCV (RBC) [Entitic vol] 86.0 fL Normal 78.0-100.[address] [facility] Comment on above: Performed By: #### 2 587609 #### [facility] [employer] [address] [place] [address] Platelet mean volume (Bld) [Entitic vol] 7.6 fL Normal 7.4-11.[address] [facility] Comment on above: Performed By: #### 2 546797 #### [facility] [employer] [address] [place] [address] Platelets (Bld) [#/Vol] 176 E3/mcL Normal 130-[address] [facility] Comment on above: Performed By: #### 2 [id number] #### [facility] [employer] [facility] [place] [address] RBC (Bld) [#/Vol] 5.23 E6/mcL Normal 3.90-6.10 [facility] Comment on above: Performed By: #### 2 [id number] #### [facility] [employer] [facility] [place] [address] WBC (Bld) [#/Vol] 9.7 E3/mcL Normal 3.6-11.0 [facility] Comment on above: Performed By: #### 2 940927 #### [facility] [employer] [facility] [place] [address] CT Abdomen/Pelvis w/o Contra susan 05-13-2019 CT Abdomen/Pelvis w/o Contrast Exam Date/Time: 05/13/2019 16:02 EDT Reason for Exam: kidney stone vs discitis;Other (please specify) Report STUDY: CT Abdomen/Pelvis w/o Contrast; 05/13/2019 4:02 pm INDICATION: Low back pain COMPARISON: None. ACCESSION NUMBER(S): [id number] ORDERING CLINICIAN: Oscar Sidhu TECHNIQUE: Contiguous 3 [...] pm Signed by: Olegario Cross MD Technologist: [facility] MRI Spine Lumbar w/ + w/o Co ntraston 05-13-2019 MRI Spine Lumbar w/ + w/o Contrast Exam Date/Time: 05/13/2019 20:08 EDT Reason for Exam: discitis;Other (please specify) Report STUDY: MRI Spine Lumbar w/ + w/o Contrast; 05/13/2019 8:08 pm INDICATION: Low back pain. COMPARISON: CT abdomen pelvis 05/13/2019 ACCESSION NUMBER(S): [id number] ORDERING CLINICIAN: Oscar Sidhu TECHNIQUE: Multiplanar multisequence [...] by: Dave Escalera MD Technologist: ANETTE Normal [facility] Manual Diffon 05-13-2019 Band form neutrophils/100 WBC (Bld) 1 Normal 0-[address] [facility] Comment on above: Order Comment: Order Added by Discern Expert. Performed By: #### 2 [id number] #### [facility] [employer] [address] [place] [address] Basophil Man 0 % Normal 0-[address] [facility] Comment on above: Order Comment: Order Added by Discern Expert. Performed By: #### 2 [id number] #### [facility] [employer] [address] [place] [address] Eosinophils/100 WBC (Bld) 0 % Normal 0-[address] [facility] Comment on above: Order Comment: Order Added by Discern Expert. Performed By: #### 2 [id number] #### [facility] [employer] [address] [place] [address] Lymphocytes/100 WBC (Bld) 3 % Low 14-[address] [facility] Comment on above: Order Comment: Order Added by Discern Expert. Performed By: #### 2 609414 #### [facility] [employer] [address] [place] [address] Monocyte Man 2 % Normal 1-[address] [facility] Comment on above: Order Comment: Order Added by Discern Expert. Performed By: #### 2 [id number] #### [facility] [employer] [address] [place] [address] RBC morphology finding Nom (Bld) NORMAL Normal [facility] Comment on above: Order Comment: Order Added by Discern Expert. Performed By: #### 2 [id number] #### [facility] [employer] [address] [place] [address] Segs Man 94 % High 37-[address] [facility] Comment on above: Order Comment: Order Added by Discern Expert. Performed By: #### 2 [id number] #### [facility] [employer] [address] [place] [address] UA Completeon 05-13-2019 Color (U) Yellow Normal Yellow [facility] Comment on above: Order Comment: Strai ght Cath as needed Performed By: #### 8 [id number] #### [facility] Urinalysis Automated Subsection [facility] [place] [address] Glucose (U) [Mass/Vol] Negative Normal Negative [facility] Comment on above: Order Comment: Strai ght Cath as needed Performed By: #### 8 [id number] #### [facility] Urinalysis Automated Subsection [facility] [place] [address] Ketones Ql (U) Negative Normal Negative [facility] Comment on above: Order Comment: Strai ght Cath as needed Performed By: #### 8 [id number] #### [facility] Urinalysis Automated Subsection [facility] [place] [address] RBC (U) [#/Vol] 0-3 Normal 0-[address] [facility] Comment on above: Order Comment: Strai ght Cath as needed Performed By: #### 8 [id number] #### [facility] Urinalysis Automated Subsection [facility] [place] [address] UA Blood 1+ Abnormal Negative [facility] Comment on above: Order Comment: Strai ght Cath as needed Performed By: #### 8 [id number] #### [facility] Urinalysis Automated Subsection [facility] [place] [address] UA Clarity SltCloudy Abnormal Clear [facility] Comment on above: Order Comment: Strai ght Cath as needed Performed By: #### 8 [id number] #### [facility] Urinalysis Automated Subsection [facility] [place] [address] UA Leuk Est Negative Normal Negative [facility] Comment on above: Order Comment: Strai ght Cath as needed Performed By: #### 8 [id number] #### [facility] Urinalysis Automated Subsection [facility] [place] [address] UA Nitrite Negative Normal Negative [facility] Comment on above: Order Comment: Strai ght Cath as needed Performed By: #### 8 [id number] #### [facility] Urinalysis Automated Subsection [facility] [place] [address] UA pH 6.0 Normal 4.6-8.[address] [facility] Comment on above: Order Comment: Strai ght Cath as needed Performed By: #### 8 [id number] #### [facility] Urinalysis Automated Subsection [address] [place] [address] UA Protein Negative Normal Negative [facility] Comment on above: Order Comment: Strai ght Cath as needed Performed By: #### 8 [id number] #### [facility] Urinalysis Automated Subsection [facility] [place] [address] UA Spec Grav 1.009 Normal 1.003-1.[address] [facility] Comment on above: Order Comment: Strai ght Cath as needed Performed By: #### 8 [id number] #### [facility] Urinalysis Automated Subsection [facility] [place] [id number] UA Urobilinogen Negative Normal [facility] Comment on above: Order Comment: Strai [...] within 24 hours. Performed By: #### 8 [id number] #### [facility] Urinalysis Automated Subsection [facility] [place] [id number] UA WBC 0-5 Normal 0-[address] [facility] Comment on above: Order Comment: Strai ght Cath as needed Performed By: #### 8 [id number] #### [facility] Urinalysis Automated Subsection [facility] [place] [address] Urobilinogen Qn (U) Negative Normal Negative [facility] Comment on above: Order Comment: Strai ght Cath as needed Performed By: #### 8 [id number] #### [facility] Urinalysis Autom[employer] Subsection [address] [place] [address] XR Chest Single Viewon 05-13 XR Chest Single View Exam Date/Time: 05/13/2019 14:43 EDT Reason for Exam: Shortness of breath (SOB) Report STUDY: XR Chest Single View; 05/13/2019 2:43 pm INDICATION: Shortness of breath (SOB). COMPARISON: None. ACCESSION NUMBER(S): [id number] ORDERING CLINICIAN: Oscar Sidhu FINDINGS: BONY STRUCTURES: [...] Signed by: Judah Beauchamp MD Technologist: [facility] eGFRon 05-13-2019 GFR/1.73 sq M predicted among non-blacks MDRD (S/P/Bld) [Vol rate/Area] mL/min/{1.73_m2} Normal [facility] Comment on above: Order Comment: Order added by Discern Expert. Performed By: #### 1 [id number] #### [facility] [employer] [address] [place] [id number] zzplt morphon 05-13-2019 Platelet morphology finding Nom (Bld) NORMAL [facility] Comment on above: Performed By: #### 9 [id number] #### [facility] [employer] [address] [place] [address] Platelets (Bld) [#/Vol] NORMAL Normal [facility] Comment on above: Performed By: #### 9 [id number] #### [facility] [employer] [address] [place] [address] Vital Signs Date Time Vital Sign Value Performing Clinician Facility 05-20-2025 15:14-0400 Diastolic blood pressure 90 mm[Hg] Ruiz Gifford MD Work Phone: [facility] 05-20-2025 15:14-0400 Systolic blood pressure 150 mm[Hg] Ruiz Gifford MD Work Phone: [facility] 05-20-2025 14:44-0400 Body height 188 cm Ruiz Gifford MD Work Phone: [facility] 05-20-2025 14:44-0400 Body mass index (BMI) [Ratio] 33.25 kg/m2 Ruiz Gifford MD Work Phone: [facility] 05-20-2025 14:44-0400 Body weight 117.48 kg Ruiz Gifford MD Work Phone: [facility] 05-20-2025 14:44-0400 Heart rate 70 /min Ruiz Gifford MD Work Phone: [facility] 05-20-2025 14:44-0400 Respiratory rate 18 /min Ruiz Gifford MD Work Phone: [facility] 05-20-2025 14:44-0400 SaO2% (BldA) [Mass fraction] 100 % Ruiz Gifford MD Work Phone: [facility] 05-16-2025 21:51-0400 Body temperature 97.8 [degF] Dr. Rogelio Colvin MD Work Phone: [facility] 05-16-2025 21:51-0400 Diastolic blood pressure 97 mm[Hg] Dr. Rogelio Colvin MD Work Phone: [facility] 05-16-2025 21:51-0400 Heart rate 76 /min Dr. Rogelio Colvin MD Work Phone: [facility] 05-16-2025 21:51-0400 Respiratory rate 18 /min Dr. Rogelio Colvin MD Work Phone: [facility] 05-16-2025 21:51-0400 SaO2% (BldA) [Mass fraction] 99 % Dr. Rogelio Colvin MD Work Phone: [facility] 05-16-2025 21:51-0400 Systolic blood pressure 136 mm[Hg] Dr. Rogelio Colvin MD Work Phone: [facility] 05-16-2025 20:04-0400 Body height 187.[address] Rogelio Colvin MD Work Phone: [facility] 05-16-2025 20:04-0400 Body mass index (BMI) [Ratio] 30.2 kg/m2 Dr. Rogelio Colvin MD Work Phone: [facility] 05-16-2025 20:04-0400 Body weight 106.[address] Rogelio Colvin MD Work Phone: [facility] 04-16-2025 21:19-0400 Body temperature 97.9 [degF] Dr. Rogelio Colvin MD Work Phone: [facility] 04-16-2025 21:19-0400 Diastolic blood pressure 76 mm[Hg] Dr. Rogelio Colvin MD Work Phone: [facility] 04-16-2025 21:19-0400 Heart rate 76 /min Dr. Rogelio Colvin MD Work Phone: 4(351)249-152589 [place] [address] 04-16-2025 21:19-0400 Respiratory rate 16 /min Dr. Rogelio Colvin MD Work Phone: 5(334)479-294789 [place] [address] 04-16-2025 21:19-0400 SaO2% (BldA) [Mass fraction] 97 % Dr. Rogelio Colvin MD Work Phone: 8(890)778-663696 [place] [address] 04-16-2025 21:19-0400 Systolic blood pressure 140 mm[Hg] Dr. Rogelio Colvin MD Work Phone: 2(944)110-193096 [place] [address] 04-16-2025 20:05-0400 Body height 187.[address] Rogelio Colvin MD Work Phone: 1(119)282-274889 [place] [address] 04-16-2025 20:05-0400 Body mass index (BMI) [Ratio] 33.3 kg/m2 Dr. Rogelio Colvin MD Work Phone: 7(492)735-451789 [place] [address] 04-16-2025 20:05-0400 Body weight 117.[address] Rogelio Colvin MD Work Phone: 8(914)640-933289 [place] [address] 03-10-2025 11:15-0400 Body temperature 98.4 [degF] Dr. Rogelio Colvin MD Work Phone: 2(115)303-119389 [place] [address] 03-10-2025 11:15-0400 Body weight 115.[address] Rogelio Colvin MD Work Phone: 1(213)137-795389 [place] [address] 03-10-2025 11:15-0400 Diastolic blood pressure 91 mm[Hg] Dr. Rogelio Colvin MD Work Phone: 9(139)765-477489 [place] [address] 03-10-2025 11:15-0400 Heart rate 98 /min Dr. Rogelio Colvin MD Work Phone: [facility] 03-10-2025 11:15-0400 Respiratory rate 16 /min Dr. Rogelio Colvin MD Work Phone: [facility] 03-10-2025 11:15-0400 SaO2% (BldA) [Mass fraction] 97 % Dr. Rogelio Colvin MD Work Phone: [facility] 03-10-2025 11:15-0400 Systolic blood pressure 142 mm[Hg] Dr. Rogelio Colvin MD Work Phone: [facility] 03-04-2025 08:06-0400 Body temperature 97 [degF] Dr. Rogelio Colvin MD Work Phone: [facility] 03-04-2025 08:06-0400 Diastolic blood pressure 88 mm[Hg] Dr. Rogelio Colvin MD Work Phone: 3(154)199-933089 [place] [address] 03-04-2025 08:06-0400 Heart rate 80 /min Dr. Rogelio Colvin MD Work Phone: [facility] 03-04-2025 08:06-0400 Respiratory rate 18 /min Dr. Rogelio Colvin MD Work Phone: [facility] 03-04-2025 08:06-0400 SaO2% (BldA) [Mass fraction] 99 % Dr. Rogelio Colvin MD Work Phone: [facility] 03-04-2025 08:06-0400 Systolic blood pressure 141 mm[Hg] Dr. Rogelio Colvin MD Work Phone: [facility] 03-03-2025 10:19-0400 Body mass index (BMI) [Ratio] 32.3 kg/m2 Dr. Rogelio Colvin MD Work Phone: [facility] 03-03-2025 10:19-0400 Body weight 114.[address] Rogelio Colvin MD Work Phone: [facility] 02-16-2025 15:27-0400 Body temperature 98 [degF] Dr. Rogelio Colvin MD Work Phone: [facility] 02-16-2025 15:27-0400 Body weight 120.[address] Rogelio Colvin MD Work Phone: 8(542)018-269489 [place] [address] 02-16-2025 15:27-0400 Diastolic blood pressure 98 mm[Hg] Dr. Rogelio Colvin MD Work Phone: 2(171)261-085289 [place] [address] 02-16-2025 15:27-0400 Heart rate 72 /min Dr. Rogelio Colvin MD Work Phone: 4(085)457-653989 [place] [address] 02-16-2025 15:27-0400 Respiratory rate 16 /min Dr. Rogelio Colvin MD Work Phone: 5(537)070-063189 [place] [address] 02-16-2025 15:27-0400 SaO2% (BldA) [Mass fraction] 98 % Dr. Rogelio Colvin MD Work Phone: 5(362)038-664089 [place] [address] 02-16-2025 15:27-0400 Systolic blood pressure 156 mm[Hg] Dr. Rogelio Colvin MD Work Phone: 7(057)362-043389 [place] [address] 02-09-2025 16:59-0400 Body temperature 98 [degF] Dr. Rogelio Colvin MD Work Phone: 1(956)196-085889 [place] [address] 02-09-2025 16:59-0400 Diastolic blood pressure 94 mm[Hg] Dr. Rogelio Colvin MD Work Phone: 6(685)864-671889 [place] [address] 02-09-2025 16:59-0400 Heart rate 72 /min Dr. Rogelio Colvin MD Work Phone: [facility] 02-09-2025 16:59-0400 Respiratory rate 15 /min Dr. Rogelio Colvin MD Work Phone: 5(563)226-182189 [place] [address] 02-09-2025 16:59-0400 SaO2% (BldA) [Mass fraction] 97 % Dr. Rogelio Colivn MD Work Phone: 4(137)732-139289 [place] [address] 02-09-2025 16:59-0400 Systolic blood pressure 130 mm[Hg] Dr. Rogelio Colvin MD Work Phone: 8(206)681-705689 [place] [address] 02-09-2025 13:08-0400 Body height 188.[address] Rogelio Colvin MD Work Phone: 3(297)861-377689 [place] [address] 02-09-2025 13:08-0400 Body mass index (BMI) [Ratio] 32.7 kg/m2 Dr. Rogelio Colvin MD Work Phone: 6(645)322-465989 [place] [address] 02-09-2025 13:08-0400 Body weight 115.[address] Rogelio Colvin MD Work Phone: 1(894)865-197796 [place] [address] 02-03-2025 09:53-0400 Body height 188.[address] Rogelio Colvin MD Work Phone: 5(020)972-008189 [place] [address] 02-03-2025 09:53-0400 Body mass index (BMI) [Ratio] 33 kg/m2 Dr. Rogelio Colvin MD Work Phone: 5(345)588-092696 [place] [address] 02-03-2025 09:53-0400 Body weight 117.[address] Rogelio Colvin MD Work Phone: 1(092)827-138689 [place] [address] 01-27-2025 13:43-0400 Body temperature 98 [degF] Dr. Rogelio Colvin MD Work Phone: 9(410)154-994089 [place] [address] 01-27-2025 13:43-0400 Body weight 115.[address] Rogelio Colvin MD Work Phone: 8(128)445-693489 [place] [address] 01-27-2025 13:43-0400 Diastolic blood pressure 91 mm[Hg] Dr. Rogelio Colvin MD Work Phone: 2(217)795-234889 [place] [address] 01-27-2025 13:43-0400 Heart rate 95 /min Dr. Rogelio Colvin MD Work Phone: 1(562)152-023089 [place] [address] 01-27-2025 13:43-0400 Respiratory rate 16 /min Dr. Rogelio Colvin MD Work Phone: 1(923)822-859789 [place] [address] 01-27-2025 13:43-0400 SaO2% (BldA) [Mass fraction] 98 % Dr. Rogelio Colvin MD Work Phone: 8(693)647-154089 [place] [address] 01-27-2025 13:43-0400 Systolic blood pressure 136 mm[Hg] Dr. Rogelio Colvin MD Work Phone: [facility] 01-20-2025 14:39-0400 Body temperature 98.2 [degF] Dr. Rogelio Colvin MD Work Phone: [facility] 01-20-2025 14:39-0400 Diastolic blood pressure 96 mm[Hg] Dr. Rogelio Colvin MD Work Phone: 0(244)008-409289 [place] [address] 01-20-2025 14:39-0400 Heart rate 85 /min Dr. Rogelio Colvin MD Work Phone: 1(252)450-602789 [place] [address] 01-20-2025 14:39-0400 Respiratory rate 17 /min Dr. Rogelio Colvin MD Work Phone: 4(125)224-166389 [place] [address] 01-20-2025 14:39-0400 SaO2% (BldA) [Mass fraction] 93 % Dr. Rogelio Colvin MD Work Phone: 3(345)967-111389 [place] [address] 01-20-2025 14:39-0400 Systolic blood pressure 147 mm[Hg] Dr. Rogelio Colvin MD Work Phone: 4(353)414-911289 [place] [address] 01-19-2025 17:45-0400 Inhaled oxygen flow rate 4 L/min Dr. Rogelio Colvin MD Work Phone: 5(834)919-293089 [place] [address] 01-19-2025 16:09-0400 Body height 188.[address] Rogelio Colvin MD Work Phone: 2(620)742-428189 [place] [address] 01-19-2025 16:09-0400 Body mass index (BMI) [Ratio] 32.7 kg/m2 Dr. Rogelio Colvin MD Work Phone: 1(570)310-160789 [place] [address] 01-19-2025 16:09-0400 Body weight 115.[address] Rogelio Colvin MD Work Phone: [facility] 01-14-2025 10:56-0500 Body weight 114.[address] Rogelio Colvin MD Work Phone: [facility] 01-13-2025 13:20-0500 Body mass index (BMI) [Ratio] 32.5 kg/m2 Dr. Rogelio Colvin MD Work Phone: [facility] 01-02-2025 10:47-0500 Body temperature 98.4 [degF] Dr. Rogelio Colvin MD Work Phone: [facility] 01-02-2025 10:47-0500 Body weight 114.[address] Rogelio Colvin MD Work Phone: 8(814)957-069489 [place] [address] 01-02-2025 10:47-0500 Diastolic blood pressure 87 mm[Hg] Dr. Rogelio Colvin MD Work Phone: 7(432)436-773996 [place] [address] 01-02-2025 10:47-0500 Heart rate 85 /min Dr. Rogelio Colvin MD Work Phone: 8(250)861-834796 [place] [address] 01-02-2025 10:47-0500 Respiratory rate 16 /min Dr. Rogelio Colvin MD Work Phone: 5(814)537-384596 [place] [address] 01-02-2025 10:47-0500 SaO2% (BldA) [Mass fraction] 98 % Dr. Rogelio Colvin MD Work Phone: 7(768)551-972089 [place] [address] 01-02-2025 10:47-0500 Systolic blood pressure 132 mm[Hg] Dr. Rogelio Colvin MD Work Phone: [facility] 11-04-2024 02:15-0500 Body temperature 98.6 [degF] Dr. Rogelio Colvin MD Work Phone: [facility] 11-04-2024 02:15-0500 Diastolic blood pressure 93 mm[Hg] Dr. Rogelio Colvin MD Work Phone: [facility] 11-04-2024 02:15-0500 Heart rate 100 /min Dr. Rogelio Colvin MD Work Phone: 1(192)601-664789 [place] [address] 11-04-2024 02:15-0500 Respiratory rate 18 /min Dr. Rogelio Colvin MD Work Phone: [facility] 11-04-2024 02:15-0500 SaO2% (BldA) [Mass fraction] 95 % Dr. Rogelio Colvin MD Work Phone: [facility] 11-04-2024 02:15-0500 Systolic blood pressure 160 mm[Hg] Dr. Rogelio Colvin MD Work Phone: [facility] 11-03-2024 23:51-0500 Body mass index (BMI) [Ratio] 27.2 kg/m2 Dr. Rogelio Colvin MD Work Phone: [facility] 11-03-2024 23:51-0500 Body weight 96.[address] Rogelio Colvin MD Work Phone: [facility] 10-18-2024 23:18-0500 Body temperature 97.59 [degF] Mendy Tyler DO Work Phone: 0(330)225-034365 [place] [address] 10-18-2024 23:18-0500 Diastolic blood pressure 108 mm[Hg] Mendy Tyler DO Work Phone: 8(796)829-397065 [place] [address] 10-18-2024 23:18-0500 Heart rate 79 /min Mendy Tyler DO Work Phone: 8(975)556-482365 [place] [address] 10-18-2024 23:18-0500 Respiratory rate 16 /min Mendy Tyler DO Work Phone: 5(109)217-587765 [place] [address] 10-18-2024 23:18-0500 SaO2% (BldA) [Mass fraction] 97 % Mendy Tyler DO Work Phone: 9(671)848-419165 [place] [address] 10-18-2024 23:18-0500 Systolic blood pressure 150 mm[Hg] Mendy Tyler DO Work Phone: 5(514)211-966965 [place] [address] 10-18-2024 20:31-0500 Body height 188 cm Mendy Tyler DO Work Phone: 4(808)614-546165 [place] [address] 10-18-2024 20:31-0500 Body mass index (BMI) [Ratio] 32.1 kg/m2 Mendy Tyler DO Work Phone: 6(642)718-032465 [place] [address] 10-18-2024 20:31-0500 Body weight 113.4 kg Mendy Tyler DO Work Phone: [facility] 10-16-2023 11:51-0500 Body temperature 98.2 [degF] Dr. Rogelio Colvin Work Phone: [facility] 10-16-2023 11:51-0500 Body weight 113.[address] Rogelio Colvin Work Phone: [facility] 10-16-2023 11:51-0500 Diastolic blood pressure 81 mm[Hg] Dr. Rogelio Colvin Work Phone: [facility] 10-16-2023 11:51-0500 Heart rate 81 /min Dr. Rogelio Colvin Work Phone: [facility] 10-16-2023 11:51-0500 Respiratory rate 16 /min Dr. Rogelio Colvin Work Phone: 2(131)091-464889 [place] [address] 10-16-2023 11:51-0500 SaO2% (BldA) [Mass fraction] 97 % Dr. Rogelio Colvin Work Phone: [facility] 10-16-2023 11:51-0500 Systolic blood pressure 127 mm[Hg] Dr. Rogelio Colvin Work Phone: [facility] 05-20-2023 20:09-0400 Respiratory rate 18 /min Dr. Rogelio Colvin Work Phone: [facility] 05-20-2023 18:02-0400 Body height 187.[address] Rogelio Colvin Work Phone: [facility] 05-20-2023 18:02-0400 Body mass index (BMI) [Ratio] 29.6 kg/m2 Dr. Rogelio Colvin Work Phone: [facility] 05-20-2023 18:02-0400 Body temperature 96.8 [degF] Dr. Rogelio Colvin Work Phone: [facility] 05-20-2023 18:02-0400 Body weight 104.[address] Rogelio Colvin Work Phone: [facility] 05-20-2023 18:02-0400 Diastolic blood pressure 64 mm[Hg] Dr. Rogelio Colvin Work Phone: [facility] 05-20-2023 18:02-0400 Heart rate 78 /min Dr. Rogelio Colvin Work Phone: [facility] 05-20-2023 18:02-0400 SaO2% (BldA) [Mass fraction] 99 % Dr. Rogelio Colvin Work Phone: [facility] 05-20-2023 18:02-0400 Systolic blood pressure 139 mm[Hg] Dr. Rogelio Colvin Work Phone: 5(992)705-500689 [place] [address] 05-02-2023 10:38-0400 Body temperature 98.2 [degF] Dr. Rogelio Colvin Work Phone: 8(072)796-231489 [place] [address] 05-02-2023 10:38-0400 Body weight 106.[address] Rogelio Colvin Work Phone: 9(057)742-388889 [place] [address] 05-02-2023 10:38-0400 Diastolic blood pressure 90 mm[Hg] Dr. Rogelio Colvin Work Phone: 7(748)417-358789 [place] [address] 05-02-2023 10:38-0400 Heart rate 80 /min Dr. Rogelio Colvin Work Phone: 2(279)434-675689 [place] [address] 05-02-2023 10:38-0400 Respiratory rate 16 /min Dr. Rogelio Colvin Work Phone: [facility] 05-02-2023 10:38-0400 SaO2% (BldA) [Mass fraction] 96 % Dr. Rogelio Colvin Work Phone: [facility] 05-02-2023 10:38-0400 Systolic blood pressure 137 mm[Hg] Dr. Rogelio Colvin Work Phone: 6(663)856-165389 [place] [address] 04-17-2023 08:54-0400 Body height 187.[address] Rogelio Colvin Work Phone: 5(490)477-908789 [place] [address] 04-17-2023 08:54-0400 Body weight 105.[address] Rogelio Colvin Work Phone: [facility] 04-17-2023 08:02-0400 Body mass index (BMI) [Ratio] 29.7 kg/m2 Dr. Rogelio Colvin Work Phone: [facility] 04-06-2023 21:31-0400 Body mass index (BMI) [Ratio] 32.3 kg/m2 Dr. Rogelio Colvin Work Phone: [facility] 04-06-2023 21:31-0400 Body weight 108.[address] Rogelio Colvin Work Phone: [facility] 04-06-2023 21:23-0400 Body height 182.[address] Rogelio Colvin Work Phone: 9(659)091-489489 [place] [address] 04-06-2023 21:23-0400 Body temperature 98 [degF] Dr. Rogelio Colvin Work Phone: 6(611)013-215689 [place] [address] 04-06-2023 21:23-0400 Diastolic blood pressure 112 mm[Hg] Dr. Rogelio Colvin Work Phone: 4(485)874-029089 [place] [address] 04-06-2023 21:23-0400 Heart rate 86 /min Dr. Rogelio Colvin Work Phone: 1(658)912-923389 [place] [address] 04-06-2023 21:23-0400 Respiratory rate 16 /min Dr. Rogelio Colvin Work Phone: [facility] 04-06-2023 21:23-0400 SaO2% (BldA) [Mass fraction] 98 % Dr. Rogelio Colvin Work Phone: [facility] 04-06-2023 21:23-0400 Systolic blood pressure 143 mm[Hg] Dr. Rogelio Colvin Work Phone: [facility] 03-26-2023 14:39-0400 Body weight 105.[address] Rogelio Colvin Work Phone: 5(588)731-409389 [place] [address] 03-26-2023 14:39-0400 Diastolic blood pressure 82 mm[Hg] Dr. Rogelio Colvin Work Phone: 6(885)309-803289 [place] [address] 03-26-2023 14:39-0400 Heart rate 64 /min Dr. Rogelio Colvin Work Phone: [facility] 03-26-2023 14:39-0400 Respiratory rate 16 /min Dr. Rogelio Colvin Work Phone: [facility] 03-26-2023 14:39-0400 SaO2% (BldA) [Mass fraction] 99 % Dr. Rogelio Colvin Work Phone: [facility] 03-26-2023 14:39-0400 Systolic blood pressure 129 mm[Hg] Dr. Rogelio Colvin Work Phone: [facility] 02-13-2023 14:21-0400 Diastolic blood pressure 76 mm[Hg] Dr. Rogelio Colvin Work Phone: [facility] 02-13-2023 14:21-0400 Heart rate 91 /min Dr. Rogelio Colvin Work Phone: [facility] 02-13-2023 14:21-0400 SaO2% (BldA) [Mass fraction] 97 % Dr. Rogelio Colvin Work Phone: [facility] 02-13-2023 14:21-0400 Systolic blood pressure 122 mm[Hg] Dr. Rogelio Colvin Work Phone: [facility] 01-25-2023 11:07-0400 Body height 188.[address] Rogelio Colvin Work Phone: [facility] 01-17-2023 08:28-0500 Body temperature 99.1 [degF] Dr. Rogelio Colvin Work Phone: [facility] 01-17-2023 08:28-0500 Body weight 108.[address] Rogelio Colvin Work Phone: [facility] 01-17-2023 08:28-0500 Diastolic blood pressure 93 mm[Hg] Dr. Rogelio Colvin Work Phone: [facility] 01-17-2023 08:28-0500 Heart rate 80 /min Dr. Rogelio Colvin Work Phone: [facility] 01-17-2023 08:28-0500 Respiratory rate 18 /min Dr. Rogelio Colvin Work Phone: [facility] 01-17-2023 08:28-0500 SaO2% (BldA) [Mass fraction] 99 % Dr. Rogelio Colvin Work Phone: [facility] 01-17-2023 08:28-0500 Systolic blood pressure 134 mm[Hg] Dr. Rogelio Colvin Work Phone: [facility] 01-11-2023 17:00-0500 Respiratory rate 18 /min Dr. Rogelio Colvin Work Phone: [facility] 01-11-2023 15:40-0500 SaO2% (BldA) [Mass fraction] 97 % Dr. Rogelio Colvin Work Phone: [facility] 01-11-2023 15:31-0500 Diastolic blood pressure 94 mm[Hg] Dr. Rogelio Colvin Work Phone: [facility] 01-11-2023 15:31-0500 Systolic blood pressure 138 mm[Hg] Dr. Rogelio Colvin Work Phone: [facility] 01-11-2023 15:10-0500 Heart rate 72 /min Dr. Rogelio Colvin Work Phone: [facility] 01-11-2023 14:00-0500 Body height 188.[address] Rogelio Colvin Work Phone: [facility] 01-11-2023 14:00-0500 Body mass index (BMI) [Ratio] 29.5 kg/m2 Dr. Rogelio Colvin Work Phone: [facility] 01-11-2023 14:00-0500 Body temperature 95.9 [degF] Dr. Rogelio Colvin Work Phone: [facility] 01-11-2023 14:00-0500 Body weight 104.[address] Rogelio Colvin Work Phone: [facility] 01-11-2023 09:51-0500 Body temperature 98.5 [degF] Dr. Rogelio Colvin Work Phone: [facility] 01-11-2023 09:51-0500 Diastolic blood pressure 87 mm[Hg] Dr. Rogelio Colvin Work Phone: [facility] 01-11-2023 09:51-0500 Heart rate 79 /min Dr. Rogelio Colvin Work Phone: [facility] 01-11-2023 09:51-0500 Respiratory rate 14 /min Dr. Rogelio Colvin Work Phone: [facility] 01-11-2023 09:51-0500 SaO2% (BldA) [Mass fraction] 98 % Dr. Rogelio Colvin Work Phone: [facility] 01-11-2023 09:51-0500 Systolic blood pressure 135 mm[Hg] Dr. Rogelio Colvin Work Phone: [facility] 01-10-2023 10:18-0500 Body height 187.[address] Rogelio Colvin Work Phone: [facility] 01-10-2023 10:18-0500 Body weight [address] Rogelio Colvin Work Phone: [facility] 01-09-2023 15:22-0500 Body mass index (BMI) [Ratio] 29.7 kg/m2 Dr. Rogelio Colvin Work Phone: [facility] 01-04-2023 14:36-0500 Body temperature 97.8 [degF] Dr. Rogelio Colivn Work Phone: [facility] 01-04-2023 14:36-0500 Body weight 105.[address] Rogelio Colvin Work Phone: [facility] 01-04-2023 14:36-0500 Diastolic blood pressure 97 mm[Hg] Dr. Rogelio Colvin Work Phone: [facility] 01-04-2023 14:36-0500 Heart rate 110 /min Dr. Rogelio Colvin Work Phone: [facility] 01-04-2023 14:36-0500 Respiratory rate 18 /min Dr. Rogelio Colvin Work Phone: [facility] 01-04-2023 14:36-0500 Systolic blood pressure 141 mm[Hg] Dr. Rogelio Colvin Work Phone: [facility] 01-04-2023 09:22-0500 Body height 187.[address] Rogelio Colvin Work Phone: [facility] 01-04-2023 09:22-0500 Body mass index (BMI) [Ratio] 30 kg/m2 Dr. Rogelio Colvin Work Phone: [facility] 01-04-2023 09:22-0500 Body weight 106.[address] Rogelio Colvin Work Phone: 9(914)204-633489 [place] [address] 12-31-2022 22:06-0500 Diastolic blood pressure 102 mm[Hg] Dr. Rogelio Colvin Work Phone: [facility] 12-31-2022 22:06-0500 Heart rate 80 /min Dr. Rogelio Colvin Work Phone: [facility] 12-31-2022 22:06-0500 Respiratory rate 16 /min Dr. Rogelio Colvin Work Phone: [facility] 12-31-2022 22:06-0500 SaO2% (BldA) [Mass fraction] 98 % Dr. Rogelio Colvin Work Phone: [facility] 12-31-2022 22:06-0500 Systolic blood pressure 143 mm[Hg] Dr. Rogelio Colvin Work Phone: [facility] 12-31-2022 17:48-0500 Body height 187.[address] Rogelio Colvin Work Phone: [facility] 12-31-2022 17:48-0500 Body mass index (BMI) [Ratio] 32.1 kg/m2 Dr. Rogelio Colvin Work Phone: [facility] 12-31-2022 17:48-0500 Body temperature 98.4 [degF] Dr. Rogelio Colvin Work Phone: 3(722)956-766189 [place] [address] 12-31-2022 17:48-0500 Body weight 113.[address] Rogelio Colvin Work Phone: [facility] 12-07-2022 08:20-0500 Body temperature 98 [degF] Dr. Rogelio Colvin Work Phone: 1(494)790-527189 [place] [address] 12-07-2022 08:20-0500 Diastolic blood pressure 72 mm[Hg] Dr. Rogelio Colvin Work Phone: 2(489)250-479989 [place] [address] 12-07-2022 08:20-0500 Heart rate 61 /min Dr. Rogelio Colvin Work Phone: 5(032)080-990689 [place] [address] 12-07-2022 08:20-0500 Respiratory rate 16 /min Dr. Rogelio Colvin Work Phone: 5(296)799-302889 [place] [address] 12-07-2022 08:20-0500 SaO2% (BldA) [Mass fraction] 95 % Dr. Rogelio Colvin Work Phone: 7(597)213-689089 [place] [address] 12-07-2022 08:20-0500 Systolic blood pressure 133 mm[Hg] Dr. Rogelio Colvin Work Phone: 3(992)406-166389 [place] [address] 12-06-2022 12:36-0500 Body height 188.[address] Rogelio Colvin Work Phone: 0(076)706-670489 [place] [address] 12-06-2022 12:36-0500 Body mass index (BMI) [Ratio] 32.5 kg/m2 Dr. Rogelio Colvin Work Phone: 2(793)104-105989 [place] [address] 12-06-2022 12:36-0500 Body weight 115.[address] Rogelio Colvin Work Phone: 3(891)650-916189 [place] [address] 12-06-2022 09:01-0500 Body temperature 98.1 [degF] [facility] 12-06-2022 09:01-0500 Diastolic blood pressure 68 mm[Hg] [facility] 12-06-2022 09:01-0500 Heart rate 64 /min [facility] 12-06-2022 09:01-0500 Respiratory rate 18 /min [facility] 12-06-2022 09:01-0500 SaO2% (BldA) [Mass fraction] 96 % [facility] 12-06-2022 09:01-0500 Systolic blood pressure 128 mm[Hg] [facility] 12-06-2022 04:16-0500 Body height 187.96 cm [facility] 12-06-2022 04:16-0500 Body mass index (BMI) [Ratio] 32.6 kg/m2 [facility] 12-06-2022 04:16-0500 Body weight 115.3 kg [facility] Encounters Encounter Date Encounter Type Care Provider Facility Start: 05-28-2025 End: 05-28-[address] Rogelio Colvin MD Work Phone: -[facility]rd Flr Start: 05-28-2025 End: 05-28-[address] Rogelio Colvin MD -[facility]rd Flr Start: 05-28-2025 End: 05-28-2025 ambulatory Rogelio Colvin Facility:[facility] Start: 05-20-2025 End: 05-20-2025 ambulatory RUIZ GIFFORD [facility] Start: 05-20-2025 End: 05-20-2025 Office outpatient new 30 minutes Ruiz Gifford MD Work Phone: [facility] Comment on above: Ileofemoral deep vei n thrombosis, bilateral (HCC) (Primary Dx) Start: 05-20-2025 End: 05-20-2025 Telephone encounter Ruiz Gifford MD Work Phone: [facility] Comment on above: Other Start: 05-16-2025 End: 05-16-2025 Emergency department patient visit Dr. Rogelio Colvin MD Work Phone: -Emergency Department Work Phone: Start: 04-16-2025 End: 04-16-2025 Emergency department patient visit Dr. Rogelio Colvin MD Work Phone: -Emergency Department Work Phone: Start: 03-20-2025 End: 03-20-[address] Dung Aguirre MD -[facility] Work Phone: Start: 03-20-2025 End: 03-20-2025 ambulatory Dung Aguirre Facility:[facility] Start: 03-10-2025 End: 03-10-2025 Patient encounter procedure Teena JULES -[facility] Work Phone: Start: 03-10-2025 End: 03-10-2025 ambulatory Teena Jacques Facility:[facility] Start: 03-09-2025 End: 03-09-2025 Patient encounter procedure Nadia Barndt [facility] Work Phone: Start: 03-09-2025 End: 03-09-2025 ambulatory Nadia Brandt Facility:[facility] Start: 03-04-2025 Non-patient / Non-visit Teena Jacques [facility] Start: 03-03-2025 Non-patient / Non-visit Dr. Michelle herrera MD -[facility] Start: 03-02-2025 Non-patient / Non-visit Dr. Michelle herrera MD -[facility] Start: 03-02-2025 ambulatory Michelle Mccall Facility:[facility] Start: 03-02-2025 End: 03-04-2025 Evaluation and management of inpatient Dr. Michelle Mccall MD -Progressive Care Unit Work Phone: Start: 02-16-2025 End: 02-16-[address] Michelle Mccall MD -[facility] Work Phone: Start: 02-16-2025 End: 02-16-2025 ambulatory Michelle Mccall Facility:[facility] Start: 02-09-2025 ambulatory Michelle Stefany Facility:[facility] Start: 02-09-2025 Non-patient / Non-visit Dr. Michelle herrera MD -[facility] Start: 02-09-2025 End: 02-09-2025 Emergency department patient visit Dr. Rogelio Colvin MD Work Phone: -Emergency Department Work Phone: Start: 02-03-2025 End: 02-03-2025 Patient encounter procedure Nadia JULES -[facility] Work Phone: Start: 02-03-2025 End: 02-03-2025 ambulatory Nadia Brandt Facility:[facility] Start: 01-27-2025 End: 01-27-2025 Patient encounter procedure Teena JULES -[facility] Work Phone: Start: 01-27-2025 End: 01-27-[address] Rogelio Colvin MD Work Phone: [facility] Work Phone: Start: 01-27-2025 End: 01-27-2025 ambulatory [facility] Facility:[facility] Start: 01-20-2025 Non-patient / Non-visit Teena JULES [facility] Start: 01-19-2025 End: 01-20-2025 ambulatory [facility] Facility:[facility] Start: 01-19-2025 End: 01-20-2025 Evaluation and management of inpatient Dr. Michelle Mccall MD -Progressive Care Unit Work Phone: Start: 01-19-2025 End: 01-20-[address] Rogelio Colvin MD Work Phone: [facility] Work Phone: Start: 01-19-2025 ambulatory Rogelio [facility] Facility:[facility] Start: 01-19-2025 Non-patient / Non-visit Dr. Michelle herrera MD -[facility] Start: 01-14-2025 [facility] Start: 01-14-2025 Non-patient / Non-visit Dr. Michelle herrera MD -[facility] Start: 01-14-2025 End: 01-14-2025 Admission to same day surgery center Dr. Michelle Mccall MD -Manager Progressive Care/Special Procedures Work Phone: Start: 01-14-2025 End: 01-14-2025 ambulatory Rogelio Chi Vinicius Facility:[facility] Start: 01-02-2025 End: 01-02-2025 Patient encounter procedure Teena JULES -Radiology, [facility] Work Phone: Start: 01-02-2025 End: 01-02-2025 Patient encounter procedure Teena JULES -[facility] Work Phone: Start: 01-02-2025 End: 01-02-2025 ambulatory Rogelio Chi Vinicius Facility:[facility] Start: 01-02-2025 End: 01-02-2025 ambulatory [facility] Facility:[facility] Start: 12-12-2024 ambulatory Michelle Mccall Facility:[facility] Start: 12-12-2024 Non-patient / Non-visit Dr. Michelle herrera MD -[facility] Start: 12-12-2024 End: 12-12-[address] Rogelio Colvin MD -Cardiovascular Services Work Phone: Start: 12-12-2024 End: 12-12-2024 ambulatory Rogelio Chi Vinicius Facility:[facility] Start: 11-24-2024 ambulatory Michelle Mccall Facility:[facility] Start: 11-24-2024 Non-patient / Non-visit Dr. Michelle herrera MD -[facility] Start: 11-24-2024 End: 11-24-[address] Michelle Mccall MD -Cardiovascular Services Work Phone: Start: 11-24-2024 End: 11-24-2024 ambulatory Michelle Perris Facility:[facility] Start: 11-03-2024 End: 11-04-2024 Emergency department patient visit Dr. Isrrael Garrett DO -Emergency Department Work Phone: Start: 10-18-2024 End: 10-18-2024 Emergency department patient visit Mendy Tyler DO Work Phone: [facility] Comment on above: Lumbar strain, initi al encounter (Primary Dx) Start: 09-18-2024 End: 09-18-2024 ambulatory Rogelio Chi Vinicius Facility:[facility] Start: 10-16-2023 End: 10-16-[address] Rogelio Colvin Work Phone: [facility] Work Phone: Start: 10-16-2023 End: 10-16-[address] Rogelio Colvin Work Phone: [facility] Work Phone: Start: 08-15-2023 Non-patient / Non-visit Dr. Zachariah Colvin Work Phone: [facility] Start: 08-15-2023 End: 08-15-[address] Rogelio Colvin [facility] Start: 05-20-2023 End: 05-20-2023 Emergency department patient visit Dr. Rogelio Colvin Work Phone: [facility]-Emergency Department Work Phone: Start: 05-02-2023 End: 05-02-[address] Rogelio Colvin Work Phone: [facility] Work Phone: Start: 05-02-2023 End: 05-02-[address] Rogelio Colvin Work Phone: [facility] Start: 04-17-2023 Non-patient / Non-visit Dr. Zachariah Colvin Work Phone: [facility] Start: 04-17-2023 End: 04-17-2023 Admission to same day surgery center Dr. Rogelio Colvin Work Phone: [facility]-Manager Progressive Care/Special Procedures Start: 04-17-2023 End: 04-17-[address] Rogelio Colvin Work Phone: [facility] Work Phone: Start: 04-06-2023 End: 04-06-2023 Emergency department patient visit Dr. Rogelio Colvin Work Phone: [facility]-Emergency Department Start: 04-04-2023 Non-patient / Non-visit Dr. Zachariah Colvin Work Phone: [facility] Start: 04-04-2023 End: 04-04-[address] Rogelio Colvin Work Phone: [facility] Work Phone: Start: 04-04-2023 End: 04-04-[address] Rogelio Colvin Work Phone: [facility]-Cardiovascular Services Start: 03-26-2023 End: 03-26-[address] Rogelio Colvin Work Phone: [facility] Start: 03-21-2023 Non-patient / Non-visit Dr. Zachariah Colvin Work Phone: [facility] Start: 03-21-2023 End: 03-21-[address] Rogelio Colvin Work Phone: [facility] Work Phone: Start: 03-21-2023 End: 03-21-[address] Rogelio Colvin Work Phone: [facility]Cardi[facility] Services Start: 03-06-2023 End: 03-06-[address] Rogelio Colvin Work Phone: [facility] Work Phone: Start: 03-06-2023 End: 03-06-[address] Rogelio Colvin [facility] Start: 02-13-2023 End: 02-13-[address] Rogelio Colvin Work Phone: [facility] Start: 01-31-2023 End: 01-31-[address] Rogelio Colvin Work Phone: [facility] Start: 01-17-2023 End: 01-17-[address] Rogelio Colvin Work Phone: [facility] Start: 01-17-2023 End: 01-17-[address] Rogelio Colvin Work Phone: [facility] Work Phone: Start: 01-17-2023 End: 01-17-[address] Rogelio Colvin Work Phone: [facility] Start: 01-11-2023 End: 01-11-2023 Emergency department patient visit Dr. Rogelio Colvin Work Phone: [facility]-Emergency Department Start: 01-11-2023 Non-patient / Non-visit Dr. Zachariah Colvin Work Phone: [facility] Start: 01-10-2023 Non-patient / Non-visit Dr. Zachariah Colvin Work Phone: [facility] Start: 01-10-2023 End: 01-10-2023 Non-patient / Non-visit Dr. Rogelio Colvin Work Phone: [facility] Start: 01-09-2023 Non-patient / Non-visit Dr. Zachariah Colvin Work Phone: [facility] Start: 01-09-2023 End: 01-11-2023 Evaluation and management of inpatient Dr. Rogelio Colvin Work Phone: [facility]Progressive Care Unit Start: 01-04-2023 End: 01-04-[address] Rogelio Colvin Work Phone: [facility] Start: 01-04-2023 End: 01-04-[address] Rogelio Colvin Work Phone: [facility] Start: 01-01-2023 Non-patient / Non-visit Dr. Zachariah Colvin Work Phone: [facility] Start: 01-01-2023 End: 01-01-[address] Rogelio Colvin Work Phone: [facility] Work Phone: Start: 01-01-2023 End: 01-01-[address] Rogelio Colvin Work Phone: [facility] Start: 12-31-2022 End: 12-31-2022 Emergency department patient visit Dr. Rogelio Colvin Work Phone: [facility]Emer[facility] Start: 12-07-2022 Non-patient / Non-visit Dr. Zachariah Colvin Work Phone: [facility] Start: 12-06-2022 Non-patient / Non-visit Dr. Zachariah Colvin Work Phone: [facility] Start: 12-06-2022 End: 12-07-2022 [facility] Start: 12-06-2022 End: 12-07-[address] Rogelio Colvin Work Phone: [facility] Work Phone: Start: 12-04-2022 End: 12-04-2022 Emergency department patient visit DR CJ LEIVA [facility] Procedures Date Procedure Procedure Detail Performing [...] for Adults (1 - 1-dose 75+ series) [facility] Start: 05-20-2033 DTaP/Tdap/Td Vaccines (2 - Td or Tdap) DTaP/Tdap/Td Vaccines (2 - Td or Tdap) [facility] Start: 07-13-2025 Influenza vaccination Influenza Vaccine (#1) [facility] Start: 05-16-2025 [facility] Start: 04-16-2025 [facility] Start: 03-04-2025 Patient discharge [facility] Start: 03-03-2025 Bedrest [facility] Start: 03-03-2025 Notification of physician [facility] Start: 03-03-2025 Provision of activity privileges [facility] Start: 03-03-2025 Pulse taking [facility] Start: 03-03-2025 Taking patient vital signs [facility] Start: 03-03-2025 End: 03-03-2025 [facility] Start: 03-03-2025 Elevation of head of bed [facility] Start: 03-03-2025 Manager Progressive Care Anesthesia (Not Applicable) Manager Progressive Care Anesthesia (Not Applicable) [facility] Start: 03-02-2025 Ambulation without limitation [facility] Start: 03-02-2025 Assessment of risk of venous thromboembolism [facility] Start: 03-02-2025 Catheterization of vein [facility] Start: 03-02-2025 Insertion of catheter into peripheral vein [facility] Start: 03-02-2025 Measuring intake and output [facility] Start: 03-02-2025 Medication not administered [facility] Start: 03-02-2025 Oxygen therapy [facility] Start: 03-02-2025 Preoperative care [facility] Start: 03-02-2025 Providing care according to standard [facility] Start: 03-02-2025 [facility] Start: 03-02-2025 Admission procedure [facility] Start: 03-02-2025 Following clinical pathway protocol [facility] Start: 02-24-2025 Patient referral [facility] Work Phone: Start: 02-09-2025 [facility] Start: 01-27-2025 Patient referral [facility] Work Phone: Start: 01-20-2025 Patient discharge [facility] Start: 01-19-2025 Following clinical pathway protocol [facility] Start: 01-19-2025 [facility] Start: 01-19-2025 Ambulation without limitation [facility] Start: 01-19-2025 Assessment of risk of venous thromboembolism [facility] Start: 01-19-2025 Bedrest [facility] Start: 01-19-2025 Incentive spirometry [facility] Start: 01-19-2025 Insertion of catheter into peripheral vein [facility] Start: 01-19-2025 Measuring intake and output [facility] Start: 01-19-2025 Notification of physician [facility] Start: 01-19-2025 Oxygen therapy [facility] Start: 01-19-2025 Providing care according to standard [facility] Start: 01-19-2025 Provision of activity privileges [facility] Start: 01-19-2025 Pulse taking [facility] Start: 01-19-2025 Taking patient vital signs [facility] Start: 01-19-2025 End: 01-19-2025 [facility] Start: 01-19-2025 Admission procedure [facility] Start: 01-19-2025 Removal of thrombus Thrombectomy (Not Applicable) [facility] Start: 01-14-2025 Patient discharge [facility] Start: 01-02-2025 Patient referral [facility] Work Phone: Start: 11-04-2024 [facility] Start: 07-13-2024 COVID-19 Vaccine ( season) COVID-19 Vaccine ( season) [facility] Start: 07-13-2024 Influenza vaccination Influenza Vaccine (#1) [facility] Start: 2023 Pneumococcal Vaccine: 50+ Years (1 of 1 - PCV) Pneumococcal Vaccine: 50+ Years (1 of 1 - PCV) [facility] Start: 2023 Zoster Vaccines (1 of 2) Zoster Vaccines (1 of 2) [facility] Start: 01-11-2023 Patient discharge [facility] Start: 01-10-2023 Notification of physician [facility] Start: 01-10-2023 Provision of activity privileges [facility] Start: 01-10-2023 Taking patient vital signs [facility] Start: 01-10-2023 Vascular disease risk assessment [facility] Start: 01-10-2023 [facility] Start: 01-09-2023 Following clinical pathway protocol [facility] Start: 01-09-2023 Admission procedure [facility] Start: 01-09-2023 Ambulation without limitation [facility] Start: 01-09-2023 Assessment of risk of venous thromboembolism [facility] Start: 01-09-2023 Insertion of catheter into peripheral vein [facility] Start: 01-09-2023 Measuring intake and output [facility] Start: 01-09-2023 Providing care according to standard [facility] Start: 01-09-2023 [facility] Start: 01-09-2023 Patient referral to dietitian [facility] Start: 12-31-2022 US.doppler Lower extremity vein [facility] Start: 12-07-2022 Patient discharge [facility] Start: 12-06-2022 Following clinical pathway protocol [facility] Start: 12-06-2022 Chart related administrative procedure [facility] Start: 12-06-2022 Ambulation without limitation [facility] Start: 12-06-2022 Assessment of risk of venous thromboembolism [facility] Start: 12-06-2022 Incentive spirometry [facility] Start: 12-06-2022 Insertion of catheter into peripheral vein [facility] Start: 12-06-2022 Measuring intake and output [facility] Start: 12-06-2022 Oxygen therapy [facility] Start: 12-06-2022 Providing care according to standard [facility] Start: 12-06-2022 Provision of activity privileges [facility] Start: 12-06-2022 Referral to occupational therapist [facility] Start: 12-06-2022 Referral to service [facility] Start: 12-06-2022 [facility] Start: 12-06-2022 Verification routine [facility] Start: 12-06-2022 Admission procedure [facility] Start: 1991 Diabetes mellitus screening Diabetes Screening [facility] Start: 1991 Hepatitis C screening Hepatitis C Screening [facility] Start: 1985 Depression Screening Depression Screening [facility] Start: 1974 MMR Vaccines (1 of 1 - Standard series) MMR Vaccines (1 of 1 - Standard series) [facility] Start: 1973 HIV screening HIV Screening [facility] Start: 1973 Lipid panel Lipid Panel [facility] Start: 1973 Screening for malignant neoplasm of colon [facility] Start: 1973 Yearly Adult Physical Yearly Adult Physical [facility] Bilirubin measuremen t, urine [facility] Doppler ultrasonogra phy of aorta [facility] Doppler ultrasonogra phy of aorta [facility] Hemoglobin [Presence ] in Urine [facility] Measurement of k[place] es in urine using dipstick [facility] Microscopic urinalysis [facility] MR Lumbar spine [facility] MR Lumbar spine [facility] Patient Education [facility] Work Phone: Patient referral [facility] Work Phone: pH of Urine [facility] Specific gravity of Urine [facility] Urinalysis, blood, qualitative [facility] Urine dipstick for glucose [facility] Urine dipstick for leukocyte esterase [facility] Urine dipstick for nitrite [facility] Urine dipstick for protein [facility] Urine examination [facility] Urine microscopy: epithelial cells [facility] Urine Microscopy: wh ite cells [facility] Urobilinogen [Presen ce] in Urine [facility] US.doppler Lower ext remity vein [facility] US.doppler Lower ext remity vessels [facility] US.doppler Lower ext remity vessels [facility] Immunizations Immunization Date Immunization Notes Care Provider Fa cility 05-20-2023 tetanus toxoid, redu jose cruz diphtheria toxoid, and acellular pertussis vaccine, adsorbed Dr. Rogelio Colvin Work Phone: [facility] 09-29-2020 influenza virus vaccine, unspecified formulation Mendy Tyler DO Work Phone: [facility] Work Phone: Payers Date Payer Category Payer Legal Liability / Liability Insurance ACCIDENT RELATED NON-MEDICARE [id number] 2024 Self-pay [id number] 2022 Commercial Managed C are - HMO MMO SUPERMED [id number] 2022 Unknown [id number] 1975 Unknown [id number] 2.16.840.1.419498.3.579.2. 651 1973 Unknown [id number] 2.16.840.1.636361.3.579.2. 1243 Private Health Insurance [id number] Unknown [id number] 2.16.840.1.335290.3.579.2. 462 Unknown [id number] 2.16.840.1.332921.3.579.2. 462 Unknown [id number] 2.16.840.1.566352.3.579.2. 462 Unknown [id number] 2.16840.1.111436.3.579.2. 462 Unknown [id number] 2.16.840.1.510320.3.579.2. 462 Unknown [id number] 2.16.840.1.625819.3.579.2. 462 Unknown [id number] 2.16.840.1.283484.3.579.2. 462 Unknown [id number] 2.16840.1.930880.3.579.2. 462 Unknown [id number] 2.16.840.1.980056.3.579.2. 462 Unknown [id number] 2.16840.1.338033.3.579.2. 462 Unknown [id number] 2.16.840.1.296451.3.579.2. 462 Unknown [id number] 2.16.840.1.213219.3.579.2. 462 Unknown [id number] 2.16.840.1.316489.3.579.2. 462 Unknown [id number] 2.16.840.1.006738.3.579.2. 462 Unknown [id number] 2.16.840.1.832072.3.579.2. 462 Unknown [id number] 2.16.840.1.644043.3.579.2. 462 Unknown [id number] 2.16.840.1.062590.3.579.2. 462 Unknown [id number] 2.16.840.1.127354.3.579.2. 462 Unknown [id number] 2.16.840.1.361809.3.579.2. 462 Unknown [id number] 2.16.840.1.556805.3.579.2. 462 Unknown [id number] 2.16.840.1.159093.3.579.2. 462 Unknown [id number] 2.16.840.1.686283.3.579.2. 462 Unknown [id number] 2.16.840.1.288336.3.579.2. 462 Unknown [id number] 2.16.840.1.952346.3.579.2. 462 Unknown [id number] 2.16.840.1.857141.3.579.2. 462 Unknown [id number] 2.16.840.1.174441.3.579.2. 462 Unknown [id number] 2.840.1.354136.3.579.2. 462 Unknown [id number] 2.16.840.1.244571.3.579.2. 462 Unknown [id number] 2.840.1.735491.3.579.2. 462 Unknown [id number] 2.840.1.670843.3.579.2. 462 Social History Date Type Detail Facility Start: 12-06-2022 End: 10-18-2023 Tobacco smoking status KYIS Unknown if ever smoked [facility] Start: 1975 Sex Assigned At Male [facility] Start: 1975 Sex assigned at Not on file [facility] Work Phone: Start: 05-20-2025 Gender identity Not on file [facility] Work Phone: Start: 10-08-2024 End: 10-18-2024 Exposure to SARS-CoV-2 (event) Not sure [facility] Start: 01-19-2025 End: 02-09-2025 Tobacco smoking status NHIS Ex-smoker (finding) [facility] Start: 06-12-2022 End: 01-20-2025 Sex Male (finding) [facility] Start: 04-16-2025 End: 05-20-2025 Tobacco smoking status NHIS Never smoked tobacco (finding) [facility] Start: 05-16-2025 Tobacco smoking stat us NHIS Current some day smoker [facility] Start: 05-20-2025 Tobacco use and exposure Former smokeless tobacco user [facility] [employer] Start: 05-20-2025 Alcoholic beverage intake Lifetime non-drinker (finding) [facility] Start: 05-20-2025 History of Social function [facility] Medical Equipment Procedure Code Equipment Code Equipment Origin al Text Equipment Identifier Dates Iliofemoral vein stent [id number] [id number] FDA Start: 01-10-2023 Iliofemoral vein stent ()[id number] [id number] FDA Start: 01-10-2023 Iliofemoral vein stent ()[id number] [id number] FDA Start: 01-10-2023 Iliofemoral vein stent ()[id number] [id number] FDA Start: 01-10-2023 Goals Date Patient Goal Desired Activity /State Functional Status Date Assessment Result Facility 03-04-2025 Functional status Ambulates;Up a d rony;Chair;Bathroom Privilege [facility] Work Phone: 01-20-2025 Functional status Ambulates [facility] Work Phone: 01-11-2023 Functional status Activity Ability Indepe ndent [facility] Work Phone: 01-11-2023 Functional status Patient Activity Up ad rony [facility] Work Phone: 12-07-2022 Functional status Activity Ability Bedres t [facility] Work Phone: 12-06-2022 Functional status Patient Activity Bedres t [facility] Work Phone: Mental Status Date Assessment Result Facility 03-04-2025 Cognitive function Voice/Name [facility] Work Phone: 01-20-2025 Cognitive function Voice/Name [facility] Work Phone: 01-19-2025 Cognitive function Voice/Name [facility] Work Phone: 01-11-2023 Cognitive function Level Of Cons ciousness Awake;Appropriate;Follows Commands;Drowsy [facility] Work Phone: 01-11-2023 Cognitive function Voice/Name [facility] Work Phone: Clinical Notes 06-13-2021 to 05-20-2025 Telephone Encounter - Suri Richards - 05/20/2025 3:46 PM EDTTelephone Encounter - Suri Richards - 05/20/2025 3:46 PM EDTTelephone Encounter - Jo Ann Barnes - 05/20/2025 3:36 PM EDT Note Date & Type Note Facility 05-20-2025 Telephone encount er Note Patient informed [facility] 05-20-2025 Miscellaneous Notes Formattin g of this note might be different from the original. Patient informed LVM ----- Message from Ruiz Gifford MD sent at 05/20/2025 3:34 PM EDT ----- Let the patient know that I spoke to Dr. Hart and that his office will plan to get him in for further evaluation of his spine. documented in this encounter [facility] 05-20-2025 Telephone encount er Note LVM [facility] 05-20-2025 Telephone encount er Note ----- Message from Ruiz Gifford MD sent at 05/20/2025 3:34 PM EDT ----- Let the patient know that I spoke to Dr. Hart and that his office will plan to get him in for further evaluation of his spine. [facility] 05-20-2025 History of Presen t illness Narrative [...] was seen by Dr. Alves at the [facility] for his lumbar spine. Interestingly he does [...] (cerebral vascular accident) documented in this encounter [facility] 05-20-2025 Note Vascular Surgery Out patient Consultation [...] was seen by Dr. Alves at the [facility] for his lumbar spine. Interestingly he does [...] I told hi (more content not included)... [facility] 05-16-2025 Discharge summary [facility] 05-16-2025 Radiology Diagnostic study note [facility] Imaging Services [address] [place], [place] [id number] Spine Cervical without Contras MR#: [id number] Acct: [id number] Name: ADIADELTA Gilberto Chan Rep #: [id number] : 1975 M 49 From: Denia Marie MD PCP: Dr. Rogelio Colvin MD Status: REG E R Study:Spine Cervical without Contras Date of Exam: 05/16/25 Exam# [id number] Ordering Dr: Leon Jones MD PROCEDURE: SPINE [...] ACUTE CERVICAL FRACTURE. DEGENERATIVE CHANGES. Reading Location: [facility] CC: Dr. Emerson Jones MD; Dr. Rogelio Colvin MD ~ Carpenter'S Assistant: Signed [facility] 05-16-2025 Radiology Diagnostic study note [facility] Imaging Services [address] [place], [place] [address] Brain/Head without Contrast MR#: [id number] Acct: [id number] Name: DELTA CHEEK Jr. Rep #: [id number] : 1975 M 49 From: Denia Marie MD PCP: Dr. Rogelio Colvin MD Status: REG E R Study:Brain/Head without Contrast Date of Exa m: 05/16/25 Exam# [id number] Ordering Dr: Leon Jones MD EXAM: BRAIN/HEAD [...] IMPRESSION: No acute intracranial finding. Reading Location: [facility] CC: Dr. Emerson Jones MD; Dr. Rogelio Colvin MD ~ Carpenter'S Assistant: Signed [facility] 05-16-2025 Discharge summary Note Date/Time May 16, 2025 9:50p m [facility] Medical Records Department [address] [place] [address] Emergency Department Summary 05/16/25 MR#: [id number] Acct: [id number] Name: ADIADELTA Gilberto Chan Rep #:[id number] : 1975 49 From: [...] similar symptoms: No Recent Illness/Hospitalization: Yes PFSH PFSH Medical History [...] no deformity. Normal range of motion. Normal heddler tier strength. Normal dorsi plantarflexion. Neurologically he is [...] II-XII intact bilaterally and moves all extremities [place] Coma Scale: document GCS findings Spontaneous Obeys [...] 71.5 H Lymph % (Auto) 16.4 L [place]han % (Auto) 9.4 Eos % (Auto) 1.6 [...] IMPRESSION: No acute intracranial finding. Reading Location: [facility] Cervical Spine CT 05/16/25 20:15 IMPRESSION: NO ACUTE CERVICAL FRACTURE. DEGENERATIVE CHANGES. Reading Location: [facility] Rhythm Strip Rhythm Strip: Sinus Rhythm Rate: 77 Ectopy: None EKG Initial EKG: Attestation: I personally reviewed and interpreted this EKG as follows: Interpretation: Sinus Rhythm and No Acute Injury Pattern Comments: Normal sinus rhythm rate of 77 no acute signs of [place] nor ischemia. Discharge Plan Triage Chief Complaint: [...] any head or neck pain. Print Language: Latvian Disposition Disposition: Home, Self Care What to do if you have Problems For any increased pain, shortness of breath, bleeding, nausea or vomiting, chestpain, or any unexpected problems, contact your Primary Care Provider. Call [facility] ([phone]) or report to the closest Emergency Room. Call 911 if necessary. 05/16/252149 <Electronically signed by Emerson Jones MD> Cosigner Signature (if applicable): CC: Dr. Rogelio Colvin MD ~ Signed [facility] Work Phone: 1(456) 426-214406-05-2025 Discharge summary [facility] Medical Records Department [address] [place] [id number] Emergency Department Summary 04/16/25 MR#: [id number] Acct: [id number] Name: DELTA CHEEK JrChristine Rep #:[id number] : 1975 49 From: [...] Prior similar symptoms: Yes Recent [facility] Medical History Wears glasses Marijuana use [...] IMPRESSION: No acute intracranial abnormality. Reading Location: [facility] Discharge Plan Triage Chief Complaint: Head Injury [...] was unremarkable with no bleeding. Print Language: Latvian Disposition Disposition: Home, Self Care What to do if you have Problems For any increased pain, shortness of breath, bleeding, nausea or vomiting, chestpain, or any unexpected problems, contact your Primary Care Provider. Call [employer] [facility] ([phone]) or report tothe closest Emergency Room. Call 911 if necessary. 04/16/252112 Cosigner Signature (if applicable): CC: Dr. Rogelio Colvin MD ~ Signed [facility]06-05-2025 Radiology Diagnostic study note [facility] Imaging Services [address] [place] [address] Brain/Head without Contrast MR#: [id number] Acct: [id number] Name: DELTA CHEEK Jr. Rep #: [id number] : 1975 M 49 From: Xander Roth DO PCP: Dr. Rogelio Colvin MD Status: REG E R Study:Brain/Head without Contrast Date of Exa m: 04/16/25 Exam# [id number] Ordering Dr: Leon Jones MD PROCEDURE: BRAIN/HEAD [...] No acute intracranial abnormality. Reading Location: [place] CC: Dr. Emerson Jones MD; Dr. Rogelio Colvin MD ~ Carpenter'S Assistant: Signed [facility]06-05-2025 Discharge summary Author Emerson oJnes [facility] Note Date/Time April 16, 2025 9:13p m [facility] Medical Records Department [address] [place] [address] Emergency Department Summary 04/16/25 MR#: [id number] Acct: [id number] Name: DELTA CHEEK JrChristine Rep #:[id number] : 1975 49 From: [...] all extremities and no focal motor deficits [place] Coma Scale: document GCS findings Spontaneous Obeys [...] was unremarkable with no bleeding. Print Language: Latvian Disposition Disposition: Home, Self Care What to do if you have Problems For any increased pain, shortness of breath, bleeding, nausea or vomiting, chestpain, or any unexpected problems, contact your Primary Care Provider. Call [facility] ([phone]) or report to the closest Emergency Room. Call 911 if necessary. 04/16/252112 <Electronically signed by Emerson Jones MD> Cosigner Signature (if applicable): CC: Dr. Rogelio Colvin MD ~ Signed [facility] Work Phone: 1(442) 391-314104-23-2025 [facility] Medical Records Department [address] [place] [address] Discharge Summary 03/04/25 0811 MR#: [id number] Acct: [id number] Name: DELTA CHEEK JrChristine Rep #: [id number] : 1975 49 From: Teena JULES PCP: Dr. Rogelio Colvin MD Status:DIS IN Location: [place] [id number] Providers Date of Admission: 03/02/25 Primary Care Physician: Dr. Rogelio Colvin MD Reason For Visit: Venogram, 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, in Manager Progressive Care with Diagnosis Discharge Diagnosis (1) Iliac DVT [...] (Reason: Constipation) Q (more content not included)... [facility]04-21-2025 [facility] Medical Records Department [address] [place] [address] History Physical Exam 03/02/25 8803 MR#: [id number] Acct: [id number] Name: DELTA CHEEK Jr. Rep #: [id number] : 1975 49 From: Michelle Mccall MD PCP: Dr. 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 Later suffered stent thrombosis that was treated with thrombectomy with some residual thrombus within stent remaining. Presents now for heparin bridge for venogram to assess for thrombus resolution vs further intervention. [facility] Medical History Wears glasses Marijuana use [...] rashes or lesions no (more content not included)...[facility] 02-03-2025 Evaluation note* Diagnosis Onset Date Resolution Status Admit Date DDD (degenerative disc disea se), lumbar acute [...] back acute March 20, 2025 2: 19pm [facility] Work Phone: 1(996) 680-684903-18-2025 Evaluation note* Diagnosis Onset Date Resolution Status Admit Date Aftercare following surgery of the circulatory system acute January 1:32pm Stenosis of iliac vein acute Ma [facility] 2024 1:32pm Iliac DVT (deep venous thrombosis) [...] back acute March 20, 2025 2: 19pm [facility] Work Phone: 1(105) 630-554103-11-2025 Consult note Author Joseph Segura [facility] Note Date/Time January 20, 2025 1:2 7pm [facility] Medical Records Department [address] [place] [address] Anesthesia Postop Eval II 01/19/25 1517 MR#: [id number] Acct: [id number] Name: ADIADELTA Gilberto Chan Rep #:[id number] : 1975 49 From: Joseph Segura MD PCP: Dr. Rogelio Colvin MD Status:ADM I NO Y Race: C Location: [place] [address] 7-1 Anesthesia Postop Eval I Sum Postop Eval Completion status Anesthesia document: Postop Eval 1 completed: Yes Anesthesia Postop Eval I Summary Anesthesia Postop Eval I Summary: Anesthesia Postop Eval I: Assessment Summary Airway patent Yes 01/19/25 13:44 HEAD [email or web address] Spontaneous unlabored Yes 01/19/25 13:44 HEAD [email or web address] respirations Mental status Awake,Calm 01/19/25 13:44 HEAD [email or web address] nausea No 01/19/25 13:44 HEAD [email or web address] Vomiting No 01/19/25 13:44 HEAD [email or web address] Anesthesia Postop Eval I: Fluid Summary Crystalloid volume administer 900 01/19/25 13:44 HEAD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 Your CAT scan tonight was unremarkable with no bleeding.[facility] Work Phone: Hospital Discharge instructionsAdditional Instructions Plenty of fluids and rest. Follow-up with your doctor as needed. Return if worse. Tylenol for any head or neck pain.[facility] Work Phone: Summary Purpose Family [...] Will No December 06 4:19am Power of Laboratory Apparatus Glass Blower No December 06, 2022 4:19am Advance Directive Response Recorded Date/ Time Living Will No December 06 12:36pm Power of Laboratory Apparatus [employer]lower No December 06, 2022 12:36pm Advance Directive Response Recorded Date/ Time Name of Medical Power of Laboratory Apparatus Glass Blower Milvia Snyder December 31, 2022 7:47pm Living Will Yes December 31 023 7:47pm Power of Laboratory Apparatus [employer] Blower Yes December 31, 2022 7:47pm Advance Directive Response Recorded Date/ Time Name of Medical Power of Laboratory Apparatus [employer] Blower Milvia Snyder December 31, 2022 7:47pm Name of Medical Power of Laboratory Apparatus Glass Blower Meir Snyder January 09, 2023 3:22pm Living Will Yes January 09 023 3:22pm Power of Laboratory Apparatus Glass Blower Yes January 09, 2023 3:22pm Advance Directive Response Recorded Date/ Time Name of Medical Power of Laboratory Apparatus Glass Blower Milvia Snyder December 31, 2022 8:47pm Name of Medical Power of Laboratory Apparatus Glass Blower Meir Snyder January 09, 2023 4:22pm Living Will No January 11, 2023 3:06pm Power of Laboratory Apparatus Glass Blower No January 11 3:06pm Advance Directive Response Recorded Date/ Time Living Will No January 25, 2023 11:07am Power of Laboratory Apparatus [employer] Blower No January 25 11:07am Name of Medical Power of Laboratory Apparatus Glass Blower Milvia Snyder December 31, 2022 8:47pm Name of Medical Power of Laboratory Apparatus [employer] Blower Meir Snyder January 09, 2023 4:22pm Advance Directive Response Recorded Date/ Time Name of Medical Power of Laboratory Apparatus Glass Blower Milvia Claudio December 31, 2022 8:47pm Name of Medical Power of Laboratory Apparatus [employer] Blower Meir Snyder January 09, 2023 4:22pm Name of Medical Power of Laboratory Apparatus [employer] Blower februaryApril 06, 2023 9:33pm Living Will Yes April 06, 2023 9 :33pm Power of Laboratory Apparatus Glass Blower Yes April 06, 2023 9:33pm Advance Directive Response Recorded Date/ Time Name of Medical Power of Laboratory Apparatus [employer] Blower Milvia Claudio December 31, 2022 8:47pm Name of Medical Power of Laboratory Apparatus Glass Blower Meir Snyder January 09, 2023 4:22pm Advance Directives No April 17 8:54am Living Will No April 17, 2023 8 :54am Power of Laboratory Apparatus [employer] Blower No April 17, 2023 8:54am Name of Medical Power of Laboratory Apparatus [employer] Blower februaryApril 06, 2023 9:33pm Advance Directive Response Recorded Date/ Time Name of Medical Power of Laboratory Apparatus Glass Blower Meir Snyder January 09, 2023 4:22pm Advance Directives No April 17 8:54am Living Will No April 17, 2023 8 :54am Power of Laboratory Apparatus [employer] Blower No April 17, 2023 8:54am Name of Medical Power of Laboratory Apparatus [employer] Blower februaryApril 06, 2023 9:33pm Advance Directive Response Recorded Date/ Time Name of Medical Power of Laboratory Apparatus Glass Blower februaryApril 06, 2023 9:33pm Advance Directives No April 17 8:54am Living Will No May 20, 2023 6 :17pm Power of Laboratory Apparatus Glass Blower No May 20, 2023 6:17pm Advance Directive Response Recorded Date/ Time Advance Directives No October 18, 2023 10:40am Living Will No October 18 10:40am Power of Laboratory Appar[employer] Blower No October 18, 2023 10:40am Advance Directive Response Recorded Date/ Time Living Will No November 04, 024 12:51am Power of Laboratory Apparatus [employer] Blower No November 04, 2024 12:51am Advance Directives on File No March 5th, 2025 11:56am Living Will Yes January 14, 2025 11:56am Power of Laboratory Appar[employer] Blower Yes January 14 11:56am Name of Medical Power of Laboratory Apparatus Glass Blower FebruaryJanuary 14, 2025 11:56am Advance Directives Yes January 14 11:56am Living Will No January 19, 2025 4:09pm Power of Laboratory Apparatus [employer] Blower No January 19 4:09pm Advance Directive Response Recorded Date/ Time Advance Directives Yes January 26 8:20am Living Will No November 04 12:51am Do you have a Healthcare Pow er of Laboratory Apparatus Glass Blower? No November 04, 2024 12:51am Advance Directives on File No January 14, 2025 11:56am Living Will Yes January 14, 2025 11:56am Do you have a Healthcare Pow er of Laboratory Apparatus Glass Blower? Yes January 14, 2025 11:56am Name of Medical Power of Laboratory Apparatus Glass Blower FebruaryJanuary 14, 2025 11:56am Living Will No January 19, 2025 4:09pm Do you have a Healthcare Pow er of Laboratory Apparatus Glass Blower? No January 19, 2025 4:09pm Advance Directive Response Recorded Date/ Time Advance Directives Yes January 26 8:20am Living Will No November 04 12:51am Do you have a Healthcare Pow er of Laboratory Apparatus Glass Blower? No November 04, 2024 12:51am Advance Directives on File No January 14, 2025 11:56am Living Will Yes January 14, 2025 11:56am Do you have a Healthcare Pow er of Laboratory Apparatus Glass Blower? Yes January 14, 2025 11:56am Name of Medical Power of Laboratory Apparatus Glass Blower FebruaryJanuary 14, 2025 11:56am Living Will No January 19, 2025 4:09pm Do you have a Healthcare Pow er of Laboratory Apparatus Glass Blower? No January 19, 2025 4:09pm Living Will Yes February 09, 2025 3:08pm Do you have a Healthcare Pow er of Laboratory Apparatus Glass Blower? Yes February 09, 2025 3:08pm Name of Medical Power of Laboratory Apparatus Glass Blower FebruaryFebruary 09, 2025 3:08pm Advance Directive Response Recorded Date/ Time Advance Directives Yes January 26 8:20am Advance Directives on File No January 14, 2025 11:56am Living Will Yes January 14, 2025 11:56am Do you have a Healthcare Power of Laboratory Apparatus Glass Blower? Yes January 14, 2025 11:56am Name of Medical Power of Laboratory Apparatus Glass Blower FebruaryJanuary 14, 2025 11:56am Living Will No January 19, 2025 4:09pm Do you have a Healthcare Power of Laboratory Apparatus Glass Blower? No January 19, 2025 4:09pm Living Will Yes March 02, 2025 4:15pm Do you have a Healthcare Power of Laboratory Apparatus Glass Blower? Yes March 02, 2025 4:15pm Name of Medical Power of Laboratory Apparatus Glass Blower februaryMarch 02, 2025 4:15pm Living Will Yes February 09, 2025 3:08pm Do you have a Healthcare Power of Laboratory Apparatus Glass Blower? Yes February 09, 2025 3:08pm Name of Medical Power of Laboratory Apparatus Glass Blower FebruaryFebruary 09, 2025 3:08pm Do you have a Healthcare Power of Laboratory Apparatus Glass Blower? No April 16, 2025 8:28pm Advance Directive Response Recorded Date/ Time Advance Directives Yes January 26 8:20am Do you have a Healthcare Power of Laboratory Apparatus Glass Blower? No May 16, 2025 8:28pm Living Will No January 19, 2025 4:09pm Do you have a Healthcare Power of Laboratory Apparatus Glass Blower? No January 19, 2025 4:09pm Living Will Yes March 02, 2025 4:15pm Do you have a Healthcare Power of Laboratory Apparatus Glass Blower? Yes March 02, 2025 4:15pm Name of Medical Power of Laboratory Apparatus Glass Blower februaryMarch 02, 2025 4:15pm Living Will Yes February 09, 2025 3:08pm Do you have a Healthcare Power of Laboratory Apparatus Glass Blower? Yes February 09, 2025 3:08pm Name of Medical Power of Laboratory Apparatus Glass Blower FebruaryFebruary 09, 2025 3:08pm Do you have a Healthcare Power of Laboratory Apparatus Glass Blower? No April 16, 2025 8:28pm Advance Directive Response Recorded Date/ Time Do you have a Healthcare Power of Laboratory Apparatus Glass Blower? No May 16, 2025 8:28pm Living Will Yes March 02, 2025 4:15pm Do you have a Healthcare Power of Laboratory Apparatus Glass Blower? Yes March 02, 2025 4:15pm Name of Medical Power of Laboratory Apparatus Glass Blower februaryMarch 02, 2025 4:15pm Living Will Yes February 09, 2025 3:08pm Do you have a Healthcare Power of Laboratory Apparatus Glass Blower? Yes February 09, 2025 3:08pm Name of Medical Power of Laboratory Apparatus Glass Blower FebruaryFebruary 09, 2025 3:08pm Do you have a Healthcare Power of Laboratory Apparatus Glass Blower? No April 16, 2025 8:28pm Advance Directives Yes January 26 8:20am Chief Complaint and Reason for Visit Chief [...] 03, 2024 11:50pm STAT Compression of vein Juliana 13th, 2 025 1:04pm PAOD, TINGLING BILAT FEET [...] 2025 3:0 8pm Venogram, 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, in Manager [facility] with March 02, 2025 4:32pm Venogram, 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, in Manager [facility] with March 02, 2025 5:47pm Venogram, 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, in Manager [facility] with March 03, 2025 12:32pm Venogram, 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, in Manager [facility] Care with March 04, 2025 8:11am LUMBAR STENOSIS, [...] 2025 3:0 8pm Venogram, 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, in Manager [facility] with March 02, 2025 4:32pm Venogram, 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, in Manager [facility] Care with March 02, 2025 5:47pm Venogram, 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, in Manager [facility] Care with March 03, 2025 12:32pm Venogram, 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, in Manager [facility] Care with March 04, 2025 8:11am LUMBAR STENOSIS, [...] 20, 2025 2:19pm Chief Complaint Admit Date LUMBAR SPINE February 03, 2025 9:5 2am Room 3 February 03, 2025 10: 04am BACK February 09, 2025 1:0 7pm Post Thrombectomy FU February 16, 2025 3:0 8pm Venogram, 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, in [facility] with March 02, 2025 4:32pm Venogram, 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, in Manager [facility] with March 02, 2025 5:47pm Venogram, 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, in Manager Progressive Care with March 03, 2025 12:32pm Venogram, 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, in Manager Progressive Care with March 04, 2025 8:11am LUMBAR STENOSIS, PAIN March 09, 2025 9 :03am Post venogram 3-4 WK FU March 10, 2025 10:58am lumbar spine March 20, 2025 2:19pm HEAD INJURY April 16, 2025 8:05p m fall May 16, 2025 8:03p m Reason for Visit Admit Date DDD (degenerative disc disease), lumbar February 03, [...] section and content) DATE CREATED AUTHOR 05/15/2019 [facility] DATE CREATED AUTHOR AUTHOR'S ORGANIZ ATION 12/13/2021 [facility] DATE CREATED AUTHOR AUTHOR'S ORGANIZ ATION 04/08/2022 [facility] DATE CREATED AUTHOR AUTHOR'S ORGANIZ ATION 04/11/2022 [facility] DATE CREATED AUTHOR AUTHOR'S ORGANIZ ATION 12/08/2022 [facility] DATE CREATED AUTHOR AUTHOR'S ORGANIZ ATION 12/05/2024 [facility] DATE CREATED AUTHOR AUTHOR'S ORGANIZ ATION 05/24/2025 [facility] DATE CREATED AUTHOR AUTHOR'S ORGANIZ ATION 06/20/2025 [facility] Care Teams (unrecognized sec tion [...] Admit Provider, Other Provider Ac tive Teena Bigodfreyenharliban PA, PA Attending Provider Active Team Status: [...] Ref erring Provider, Other Provider Active Teena Reynolds PA Attending Provider Active Team Status: Inactive Member Role Status Dates Dr. Rogelio Colvin MD Primary Care Provider, Referring Provider Active Teena Reynolds PA Attending Provider Active Team Status: Active Member Role Status Dates Dr. Rogelio Colvin MD Primary Care Provider Active Dr. Michelle Mccall MD Attending Provider Active Team Status: Inactive Member Role Status Dates Dr. Rogelio Colvin MD Primary Care Provider Active Teena Reynolds PA Attending Provider, Referring Provider Active Team Status: Active Member Role Status Dates Dr. Rogelio Colvin MD Primary Care Provider Active Dr. Michelle Mccall MD Attending Provider Active Teena Reynolds PA Referring Provider Active Team Status: Inactive [...] Schmitt Attending Provider, Referring Provid er Active Music Orchestrator Relationship Specialty Start Date End Date Generic Provider, [place] [address] PCP - General [place] 10/18/24 Team Status: Active Member Role Status [...] Active Member Role Status Dates Dr. Rogelio oClvin MD Primary Care Provider Active Start: November [...] May 16, 2025 End: May 16, 2025 Music Orchestrator Relationship Specialty Start Date End Date Iker Colvin MD [address] [place] [address] PCP - General Geriatric Medicine 05/08/25 Michelle Hart MD [address] [place] [address] Orthopedic Surgery 05/08/25 Team Status: Inactive Member Role/Relationship Status Dates [...] May 16, 2025 Dr. Emerson Jones MD Attending Provider Active S tart: May 16, 2025 End: May 16, 2025 Dr. Emerson Jones MD Emergency Provider Active S tart: May 16, 2025 End: May 16, 2025 Team Status: Inactive Member Role/Relationship Status Dates Dr. Rogelio Colvin MD Primary Care Provider Active Start: May 28, 2025 End: May 28, 2025 Dr. 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 Needs opinion from Dr Gifford on the cause. Procedures [place] OFFICE/OUTPATIENT NEW MODERATE MDM 45 MINUTES Michelle Hart MD [address] [place] [address] Phone: tel: fax: Ruiz Gifford MD [address] [place] [address] Phone: tel: fax: Referral ID Status Reason Start Date Expiration Date Visits Requested Visits Authorized [id number] Pending Review Consult and Treat 05/08/2025 05/08/2026 [...] BE BASED ON THE PRIMARY CLINICAL RECORDS. [employer] [facility]. provides no warranty or guarantee of the accuracy or completeness of information in this document.
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
[2025-08-01 23:59] VITALS: BP 150/110; PULSE 112; RESP 18; TEMP 36.2; O2SAT 100
== END 2025-08-01 23:59 | disposition home or self-care (01) ==
PROVIDERS: Emergency Provider Emergency Medicine; PCP Surgery Trauma Surgery; Visit Provider Emergency Medicine
DX: S09.90XA Unspecified injury of head, initial encounter (principal); I10 Essential (primary) hypertension; M54.2 Cervicalgia; Z86.718 Personal history of other venous thrombosis and embolism; Z79.01 Long term (current) use of anticoagulants; F17.220 Nicotine dependence, chewing tobacco, uncomplicated; W50.0XXA Accidental hit or strike by another person, initial encounter
CPT/HCPCS: 70450; 72125; 99282